=== PATIENT | male | born 1960 | race African-American/Black ===

== ENCOUNTER 2020-07-06 16:05 | Inpatient (IN) | payer MEDICARE, MEDICAID, SELFPAY ==
[2020-07-06] VITALS (16 sets, daily range): BP systolic 134–154; BP diastolic 81–106; PULSE 103–146; RESP 20–29; TEMP 36.4–37.1; O2SAT 97–100; BMI 40.3
--- NOTE | ~2020-07-06 | CT_ITS ---
EXAMINATION: CT soft tissue neck w con DATE: 07/11/2020 14:35 INDICATION: Mild expiratory stridor. TECHNIQUE: Computed tomography (CT) of the neck was performed with 75 mL Omnipaque-350 intravenous co ntrast. Automated exposure control and iterative reconstruction technique were employed. The dose-becca gth product was 618.91 mGy-cm. COMPARISON: Chest CT 07/06/2020 FINDINGS: The visualized portions of the lung apices demonstrate emphysema. There are likely changes of left ocular lens replacement surgery. The pharynx and larynx are unremarkable. There is a saber-sh eath morphology of the trachea at the level of the aortic arch. There are no pathologically enlarged lymph nodes. There is severe cervical spondylosis. IMPRESSION: 1. Saber-sheath trachea. 2. Emphysema. Reviewed, dictated and finalized at location A.
--- NOTE | ~2020-07-06 | XR_ITS ---
EXAMINATION: XR chest 1V portable INDICATION: Shortness of breath TECHNIQUE: Portable AP chest at 1821 hours COMPARISON: None available FINDINGS: There are minimal airspace opacities of the mid and lower lung zones. No pleural effusion o r pneumothorax is identified. The cardiomediastinal silhouette is normal. IMPRESSION: 1. Airspace opacities of the mid and lower lung zones, consistent with atelectasis versus pneumonia. Reviewed, dictated and finalized at location A. IMPRESSION: 1. Airspace opacities of the mid and lower lung zones, consistent with atelecta sis versus pneumonia.
--- NOTE | ~2020-07-06 | CT_ITS ---
EXAMINATION: CTA chest PE protocol DATE: 07/06/2020 19:27 INDICATION: Shortness of breath TECHNIQUE: Computed tomography angiography (CTA) of the chest was performed with 100 mL Omnipaque-350 intravenous contrast timed to evaluate the pulmonary arteries. Coronal maximum intensity projection 3D-reconstructions were created by the technologist. The dose-length product (DLP) was 965.32 mGy-cm. Automated exposure control and iterative reconstruction technique were employed. COMPARISON: None. FINDINGS: Evaluation for pulmonary embolism in the lower lobes is limited by respiratory motion. No p ulmonary embolism is identified. There is severe upper lobe predominant emphysema. There is a 1.6 x 0 .7 cm nodule of the right upper lobe on image 36. There is mild right hilar lymphadenopathy. The hear t size is normal. Calcified coronary artery atherosclerosis is noted. There is a small sliding hiatal hernia. There is moderate thoracic spondylosis. IMPRESSION: 1. No pulmonary embolism identified although sensitivity for embolism in the lower lobes is limited b y respiratory motion. 2. Severe upper lobe predominant emphysema. 3. Right upper lobe nodule which may be infectious or inflammatory however malignancy is a considerat ion. Recommend follow-up CT in three months, PET/CT, or biopsy. Reviewed, dictated and finalized at location A. IMPRESSION: 1. No pulmonary embolism identified although sensitivity for embolism in the lo wer lobes is limited by respiratory motion. 2. Severe upper lobe predominant emphysema. 3. Right upper lobe nodule which may be infectious or inflammatory however santhosh gnancy is a consideration. Recommend follow-up CT in three months, PET/CT, or b iopsy.
--- NOTE | 2020-07-06 16:16 | ED.SOB ---
HPI - SOB/Dyspnea General Chief Complaint: Shortness of Breath/Dyspnea Stated Complaint: sob Time Seen by Provider: 07/06/20 16:16 Source: patient and family Mode of arrival: wheelchair History of Present Illness HPI Narrative: Patient is a 60-year-old male with a history of COPD, chronically on 3 L oxygen who follows with [facility], who presents for evaluation of shortness of breath. Patient has been short of breath throughout the last 12 hours, initially becoming dyspneic early this morning at around 1 in the morning, for which the patient's gave him a breathing treatment. Patient then improved but became short of breath again around 11 AM this morning and had another breathing treatment which then improved his symptoms. Patient then started to have a third episode of shortness of breath associated with chest pain around 3 PM, this time a DuoNeb did not improve the patient's symptoms. Patient is denying any current chest pain in the room. He denies fever, he does report cough. He denies any leg swelling, leg pain or history of DVT. No history of PE. He reports history of COPD exacerbations for which he has had to be hospitalized in the past. He denies recent sick contacts. He denies rhinorrhea, congestion or loss of sense of taste or smell. Patient states he does not want to be hospitalized or transferred to [facility]. Patient denies loss of sense of taste or smell. No rhinorrhea or congestion. No sore throat or myalgias. Related Data Home Medications Medication Instructions Recorded Confirmed albuterol sulfate 2 puff INHALATION QID 07/06/20 07/06/20 azithromycin 500 mg PO DAILY 07/06/20 07/06/20 budesonide 0.5 mg INHALATION DAILY 07/06/20 07/06/20 calcium carbonate-vitamin D3 1 tablet PO DAILY 07/06/20 07/06/20 [Oyster Shell Calcium-Vit D3] fluticasone propionate 1 spray INTRANASAL BID 07/06/20 07/06/20 glycopyrrolate-neb.accessories 1 ml INHALATION QID 07/06/20 07/06/20 [Lonhala Magnair Refill] hydrocodone-acetaminophen [[place]] 1 tablet PO Q4-6H PRN 07/06/20 07/06/20 nifedipine 30 mg PO DAILY 07/06/20 07/06/20 omeprazole 20 mg PO DAILY 07/06/20 07/06/20 prednisone 10 mg PO DAILY 07/06/20 07/06/20 promethazine-DM 5 ml PO Q4-5H PRN 07/06/20 07/06/20 Allergies Allergy/AdvReac Type Severity Reaction Status Date / Time oxycodone Allergy Unknown Verified 07/06/20 16:45 Review of Systems Review of Systems: Narrative: CONSTITUTIONAL: Denies fever HEENT: Denies rhinorrhea or congestion CARDIOVASCULAR: Denies current chest pain RESPIRATORY: Reports cough and shortness of breath GASTROINTESTINAL: Denies abdominal pain SKIN: Denies rash MUSCULOSKELETAL: Denies back pain NEUROLOGIC: Denies headache [facility] Past Medical History Medical History (Updated 07/07/20 @ 14:13 by Justice Molina PA-C) Chronic respiratory failure 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 10 mg prednisone daily Essential hypertension GERD (gastroesophageal reflux disease) Osteoarthritis Surgical History Surgical History (Updated 07/07/20 @ 11:13 by Brittney Childers DO) Hx of cataract surgery left cataract has been resected, right cataract his to be resected in July Family History Family History (Updated 07/06/20 @ 22:40 by Renae Miranda RN) Father Acute myocardial infarction Congestive heart failure Mother Diabetes mellitus Sibling Diabetes mellitus Social History Social History (Updated 07/07/20 @ 11:18 by Brittney Childers DO) Smoking packs per day: 1 Smoking cigarettes per day: 20.0 Years smoked: 40 Smoking pack-years: 40.00 Smoking status: Former smoker Tobacco type: cigarettes Second hand tobacco smoke exposure: No Smoking end date: 12/30/18 Alcohol intake: current Drinks per week: 3 Alcohol use details: The patient will drink on-call only in moderation in on occasion. He reports that he may drink a beer if there is a football game on. Substance use: form
[2020-07-06 16:47] LABS: Basophils Absolute Auto 0.1 K/mm3 (0.0-0.1); Basophils Percent Auto 0.3 % (0.2-1.2); Eosinophils Percent Auto 0.1 % (0-4.4); Hemoglobin 13.5 g/dL (14.0-18.0); Immature Granulocyte Absolute 0.09 K/mm3 (0.00-0.031); Immature Granulocyte Percent A 0.5 % (0-0.5); Lymphocytes Absolute Auto 1.02 K/mm3 (0.9-3.2); Lymphocytes Percent Auto 5.5 % (18.3-44.2); Mean Corpuscular HGB Conc 32.1 g/dl (32-36); Mean Corpuscular Hemoglobin 30.7 pg (26-34); Mean Corpuscular Volume 95.5 fl (80-100); Mean Platelet Volume 10.9 fl (7.4-10.4); Monocytes Absolute Auto 1.5 K/mm3 (0.1-0.6); Monocytes Percent Auto 7.9 % (2.6-8.5); Neutrophils Absolute Auto 15.9 K/mm3 (1.3-6.7); Neutrophils Percent Auto 85.7 % (45.5-73.1); Platelet Count Result 340 k/mm3 (150-375); Red Cell Distribution Width 14.5 % (11.5-14.5); White Blood Count 18.6 K/mm3 (4.5-10.0)
[2020-07-06 16:50] LABS: Alveolar/Arterial O2 Gradient 85.3 mmHg; Base Excess ABG 0.4 mEq/l (+/-2.0); Carboxyhemoglobin 0.7 % THb (0-2.0); Fractional Inspired Oxygen 30 %; Methemoglobin ABG 0.1 %THb (0-1.5); Oxygen Saturation ABG 96.2 % (95.0-100.0); Oxyhemoglobin 95.6 % THb (90.0-100.0); PO2 ABG 81.6 mmHg (80.0-100.0); PO2 FiO2 Ratio Arterial Blood 2.72 %; Reduced Hemoglobin 3.6 %THb (0-5.0); Total Hemoglobin 14.1 g/dL (12.0-18.0); pH ABG 7.413 (7.350-7.450)
[2020-07-06 16:51] LABS: Device NON-INVASIVE VENT; Modified Allen's Test Pass; Site Drawn LEFT RADIAL
[2020-07-06 16:53] LABS: Non-Invasive Expiratory Pressure 7 CMH2O; Non-Invasive Inspiratory Pressure 15 CMH2O; Non-Invasive Vent Rate 16 /MIN
[2020-07-06] MEDS: MAGNESIUM SULF 2 GM/WATER 50ML 2 GM/50 ML BAG IVPB (16:53)
[2020-07-06] MEDS: methylPREDNISolone SOD SUCC 125 MG VIAL IV PUSH (16:54)
[2020-07-06] MEDS: SODIUM CHLORIDE 0.9% IV 500 ML 999 ML IV CONT (16:54)
[2020-07-06 16:56] LABS: Prothrombin Time 12.9 Seconds (11.1-14.7)
[2020-07-06 16:57] LABS: Partial Thromboplastin Time 25.3 SECONDS (22.3-36.8)
[2020-07-06 16:59] LABS: Lactic Acid Reflex 1.4 mmol/L (0.7-2.1)
[2020-07-06 17:06] LABS: D Dimer 3.98 ug/mL (<0.48)
[2020-07-06 17:12] LABS: Troponin I < 0.012 ng/mL (0.000-0.034)
[2020-07-06] MEDS: ALBUTEROL SULFATE NEB 2.5 MG/0.5 ML INH 20 MG INHALATION (17:25)
[2020-07-06] MEDS: IPRATROPIUM BR 0.02% INH SOLN 0.5 MG/2.5 ML VIAL 2 MG INHALATION (17:26)
[2020-07-06 17:54] LABS: Alanine Aminotransferase 26 U/L (4-50); Albumin Level 4.3 g/dL (3.5-5.1); Alkaline Phosphatase 101 U/L (38-126); Anion Gap 6 mmol/L (8-16); Aspartate Amino Transferase 29 U/L (17-59); Bilirubin,Total 0.7 mg/dL (0.2-1.3); Blood Urea Nitrogen 15 mg/dL (9-20); CRP 3.9 mg/dL (<1.0); Calcium 9.4 mg/dL (8.4-10.2); Carbon Dioxide 26 mmol/L (22-30); Chloride 106 mmol/L (98-107); Estimated CRCL calculation 98 ml/min; Estimated Glomerular Filt Rate > 60; Glucose 120 mg/dL (75-110); Potassium 4.3 mmol/L (3.4-5.0); Sodium 138 mmol/L (137-145)
[2020-07-06 18:01] LABS: NT Pro B Type Natriuretic Pept 155 PG/ML (5-100)
[2020-07-06] MEDS: SODIUM CHLORIDE 0.9% IV 1,000 ML 999 ML IV CONT (20:08)
[2020-07-06] MEDS: IPRATROPIUM BR 0.02% INH SOLN 0.5 MG/2.5 ML VIAL INHALATION (20:57)
[2020-07-06] MEDS: ALBUTEROL SULFATE NEB 2.5 MG/0.5 ML INH 5 MG INHALATION (20:58)
--- NOTE | 2020-07-06 23:45 | PC.NURSE ---
This patient, Bentley Mesa, was admitted to IMU Room 209-01. Patient/family oriented to hospital policies and general routines including ID bracelet, bed and alarms, visiting hours, pain management, procedures, bathroom and other care routines, personal items, smoking policy, room service/diet, and visiting hours. Valuables list has been completed. Information on how to activate the Rapid Response Team has been discussed. Patient/Family are encouraged to report perceived risks to care and to ask questions if they do not understand what they are told or what they should do.
[2020-07-07] VITALS (21 sets, daily range): BP systolic 140–152; BP diastolic 92–105; PULSE 75–109; RESP 16–24; TEMP 36.1–36.6; O2SAT 95–100
[2020-07-07 00:58] LABS: Troponin I < 0.012 ng/mL (0.000-0.034)
[2020-07-07] MEDS: IPRATROPIUM BR 0.02% INH SOLN 0.5 MG/2.5 ML VIAL INHALATION ×4 (02:04→20:08)
[2020-07-07] MEDS: ALBUTEROL SULFATE NEB 2.5 MG/0.5 ML INH 5 MG INHALATION ×4 (02:04→20:08)
--- NOTE | 2020-07-07 03:36 | PM.IMHP ---
H&P: HPI History of Present Illness Date/Time: 07/07/20 03:36 Chief complaint: Shortness of breath Narrative: Bentley Mesa is a 60 year old male with a past medical history of hypertension, COPD /emphysema, and chronic hypoxic respiratory failure who presented to the ER via private vehicle due to shortness of breath. The patient arrived to triage gasping for air with abdominal respirations. The patient was using 5 L of oxygen from home at the time and was satting 98%. The patient is usually on home oxygen of 3 L. the patient had had started having shortness of breath around 1:00 a.m. on the (Day of presentation). They had increased his home oxygen at that time and gave the patient a breathing treatment. The patient's symptoms improved around 11:00 a.m. he required another breathing treatment. When he started to have a 3rd episode of shortness of breath around 3:00 p.m. and is DuoNeb do not improve his symptoms they decided to bring the patient in. During his 3rd episode of shortness of breath he also had some chest pain . The patient had been having some cough. He had not been having any lower extremity swelling, leg pain or history of DVT . He denies any recent sick contacts. He has not been having any fevers, chills, nasal congestion, rhinorrhea, loss of sense of taste or smell. The patient follows with pulmonology at [facility]. Review of Systems Review of Systems: Narrative: 12 systems were reviewed with pertinent positives and negatives per HPI. Except as documented in the HPI, all other systems were reviewed and are negative. 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 10 mg prednisone daily Essential hypertension GERD (gastroesophageal reflux disease) Osteoarthritis Surgical History Surgical History (Updated 07/06/20 @ 16:42 by Rashmi Higginbotham MD) Hx of cataract surgery Family History Family History (Updated 07/06/20 @ 22:40 by Renae Miranda RN) Father Acute myocardial infarction Congestive heart failure Mother Diabetes mellitus Sibling Diabetes mellitus Social History Social History (Updated 07/06/20 @ 16:20 by Rashmi Higginbotham MD) Smoking status: Former smoker Tobacco type: cigarettes Second hand tobacco smoke exposure: No Smoking end date: 12/30/18 Alcohol intake: never Drinks per week: 3 Substance use: former Substance use type: marijuana Last use: 1998 Living arrangements: with family Gender identity (if verbalized by the patient): Male Meds Home Medications and Allergies Home Medications Medication Instructions Recorded Confirmed Type albuterol sulfate 2 puff INHALATION QID 07/06/20 07/06/20 History azithromycin 500 mg PO DAILY 07/06/20 07/06/20 History budesonide 0.5 mg INHALATION DAILY 07/06/20 07/06/20 History calcium carbonate-vitamin D3 1 tablet PO DAILY 07/06/20 07/06/20 History [Oyster Shell Calcium-Vit D3] fluticasone propionate 1 spray INTRANASAL BID 07/06/20 07/06/20 History glycopyrrolate-neb.accessories 1 ml INHALATION QID 07/06/20 07/06/20 History [Lonhala Magnair Refill] hydrocodone-acetaminophen [[place]] 1 tablet PO Q4-6H PRN 07/06/20 07/06/20 History nifedipine 30 mg PO DAILY 07/06/20 07/06/20 History omeprazole 20 mg PO DAILY 07/06/20 07/06/20 History prednisone 10 mg PO DAILY 07/06/20 07/06/20 History promethazine-DM 5 ml PO Q4-5H PRN 07/06/20 07/06/20 History Allergies Allergy/AdvReac Type Severity Reaction Status Date / Time oxycodone Allergy Unknown Verified 07/06/20 16:45 Vital Signs Vital Signs - 24 hr 07/06/20 16:20 07/06/20 16:28 07/06/20 17:26 Temperature 98.7 F Pulse Rate 146 H 130 H 126 H Respiratory Rate 29 H 24 H 23 H Blood Pressure 154/106 H Pulse Oximetry 100 98 07/06/20 18:00 07/06/20 18:38 07/06/20 18:41 Temperature Pulse Rate 124 H 140 H 138 H
[2020-07-07] MEDS: HYDROcodone/acetaminophen (*CRX) 5-325 MG TABLET 1 TAB PO ×5 (05:05→22:59)
[2020-07-07] MEDS: methylPREDNISolone SOD SUCC 125 MG VIAL 80 MG IV PUSH ×2 (05:10→12:26)
[2020-07-07 05:27] LABS: Hematocrit 38.3 % (42.0-52.0); Hemoglobin 12.6 g/dL (14.0-18.0); Mean Corpuscular HGB Conc 32.9 g/dl (32-36); Mean Corpuscular Hemoglobin 31.2 pg (26-34); Mean Corpuscular Volume 94.8 fl (80-100); Mean Platelet Volume 10.8 fl (7.4-10.4); Platelet Count Result 316 k/mm3 (150-375); Red Blood Count 4.04 M/mm3 (4.6-6.20); Red Cell Distribution Width 14.6 % (11.5-14.5); White Blood Count 20.2 K/mm3 (4.5-10.0)
[2020-07-07 05:46] LABS: Anion Gap 10 mmol/L (8-16); Blood Urea Nitrogen 17 mg/dL (9-20); Carbon Dioxide 24 mmol/L (22-30); Chloride 105 mmol/L (98-107); Estimated CRCL calculation 110 ml/min; Estimated Glomerular Filt Rate > 60; Glucose 156 mg/dL (75-110); Potassium 4.4 mmol/L (3.4-5.0); Sodium 139 mmol/L (137-145)
[2020-07-07] MEDS: BUDESONIDE RESPULE NEB 0.5 MG/2 ML AMP INHALATION (08:13)
[2020-07-07] MEDS: ENOXAPARIN 40 MG/0.4 ML SYRINGE SUB-Q (09:00)
[2020-07-07] MEDS: PANTOPRAZOLE 40 MG TABLET PO (09:00)
[2020-07-07] MEDS: FLUTICASONE PROPIONATE 0.05% NA SPR 16 GM BTL (*BKC) 1 SPRAY NASAL ×2 (09:00→16:28)
[2020-07-07] MEDS: NIFEdipine 30 MG TAB.ER.24 PO (09:00)
--- NOTE | 2020-07-07 10:28 | PM.IMHP ---
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 10 mg prednisone daily Essential hypertension GERD (gastroesophageal reflux disease) Osteoarthritis Surgical History Surgical History (Updated 07/06/20 @ 16:42 by Rashmi Higginbotham MD) Hx of cataract surgery Family History Family History (Updated 07/06/20 @ 22:40 by Renae Miranda RN) Father Acute myocardial infarction Congestive heart failure Mother Diabetes mellitus Sibling Diabetes mellitus Social History Social History (Updated 07/06/20 @ 16:20 by Rashmi Higginbotham MD) Smoking status: Former smoker Tobacco type: cigarettes Second hand tobacco smoke exposure: No Smoking end date: 12/30/18 Alcohol intake: never Drinks per week: 3 Substance use: former Substance use type: marijuana Last use: 1998 Living arrangements: with family Gender identity (if verbalized by the patient): Male Meds Home Medications and Allergies Home Medications Medication Instructions Recorded Confirmed Type albuterol sulfate 2 puff INHALATION QID 07/06/20 07/06/20 History azithromycin 500 mg PO DAILY 07/06/20 07/06/20 History budesonide 0.5 mg INHALATION DAILY 07/06/20 07/06/20 History calcium carbonate-vitamin D3 1 tablet PO DAILY 07/06/20 07/06/20 History [Oyster Shell Calcium-Vit D3] fluticasone propionate 1 spray INTRANASAL BID 07/06/20 07/06/20 History glycopyrrolate-neb.accessories 1 ml INHALATION QID 07/06/20 07/06/20 History [Lonhala Magnair Refill] hydrocodone-acetaminophen [[place]] 1 tablet PO Q4-6H PRN 07/06/20 07/06/20 History nifedipine 30 mg PO DAILY 07/06/20 07/06/20 History omeprazole 20 mg PO DAILY 07/06/20 07/06/20 History prednisone 10 mg PO DAILY 07/06/20 07/06/20 History promethazine-DM 5 ml PO Q4-5H PRN 07/06/20 07/06/20 History Allergies Allergy/AdvReac Type Severity Reaction Status Date / Time oxycodone Allergy Unknown Verified 07/06/20 16:45 Vital Signs Vital Signs - 24 hr 07/06/20 16:20 07/06/20 16:28 07/06/20 17:26 Temperature 98.7 F Pulse Rate 146 H 130 H 126 H Respiratory Rate 29 H 24 H 23 H Blood Pressure 154/106 H Pulse Oximetry 100 98 07/06/20 18:00 07/06/20 18:38 07/06/20 18:41 Temperature Pulse Rate 124 H 140 H 138 H Respiratory Rate 26 H 26 H 27 H Blood Pressure 144/90 H Pulse Oximetry 99 97 07/06/20 19:30 07/06/20 20:30 07/06/20 20:50 Temperature Pulse Rate 120 H 114 H 110 H Respiratory Rate 21 H 21 H 24 H Blood Pressure 147/98 H 142/91 H Pulse Oximetry 98 98 07/06/20 21:00 07/06/20 21:06 07/06/20 21:07 Temperature Pulse Rate 115 H 109 H 110 H Respiratory Rate 23 H 20 24 H Blood Pressure 153/81 H Pulse Oximetry 98 97 07/06/20 21:45 07/06/20 21:55 07/06/20 22:30 Temperature Pulse Rate 103 H 107 H 130 H Respiratory Rate 22 H 21 H Blood Pressure 137/81 Pulse Oximetry 98 98 07/06/20 23:00 07/07/20 00:00 07/07/20 02:00 Temperature 97.6 F Pulse Rate 133 H 106 H 94 Respiratory Rate 22 H 24 H Blood Pressure 134/94 H Pulse Oximetry 99 100 07/07/20 02:05 07/07/20 02:13 07/07/20 04:00 Temperature 97.5 F L Pulse Rate 93 89 109 H Respiratory Rate 22 H 22 H 24 H Blood Pressure 142/99 H Pulse Oximetry 98 96 07/07/20 06:00 07/07/20 08:00 07/07/20 08:18 Temperature 97.5 F L Pulse Rate 94 89 85 Respiratory Rate 18 21 H Blood Pressure 152/103 H Pulse Oximetry 98 98 H&P: Results Labs Labs: Short CBC 07/06/20 07/07/20 Range/Units 16:35 05:13 WBC 18.6 H 20.2 H (4.5-10.0) K/mm3 Hgb 13.5 L 12.6 L (14.0-18.0) g/dL Hct 42.0 38.3 L (42.0-52.0) % Plt Count 340 316 (150-375) k/mm3 [facility] 07/06/20 07/07/20 17:23 05:13 Sodium 138
[2020-07-07 13:21] LABS: SARS-CoV-2 RNA PCR Negative
--- NOTE | 2020-07-07 14:11 | PM.IMPN ---
Progress Note: A&P Assessment and Plan (1) Acute exacerbation of chronic obstructive airways disease: Code(s): J44.1 - Chronic obstructive pulmonary disease with (acute) exacerbation Status: Acute (2) Community acquired pneumonia: Code(s): J18.9 - Pneumonia, unspecified organism Status: Acute (3) Chronic respiratory failure: Code(s): J96.10 - Chronic respiratory failure, unspecified whether with hypoxia or hypercapnia Status: Acute Assessment and Plan: Acute on Chronic likely secondary to #1 and 2. See above a/p Wean to home O2 requirements as tolerated (4) Essential hypertension: Code(s): I10 - Essential (primary) hypertension Status: Acute Assessment and Plan: BP 150s sys with diastolic 105 this afternoon. Continue home medications Will add prn hydralazine with parameters Monitor (5) GERD (gastroesophageal reflux disease): Code(s): K21.9 - Gastro-esophageal reflux disease without esophagitis Status: Acute Assessment and Plan: no acute issues Continue pantoprazole 40 mg daily Subjective Date/time seen: 07/07/20 14:11 Interval history: Patient is a very pleasant 60 yo M with history of COPD with emphysema, chronic respiratory failure (usually 3L O2 NC at home), HTN, and GERD who is seen in follow up for acute on chronic respiratory failure likely secondary to PNA and possible COPD exacerbation. Patient states he is feeling much better this afternoon, being weaned off BiPAP on 5L O2 NC. He is able to talk in longer sentences this afternoon. He feels his SOB has improved and that he is not gasping for air as much; it should be noted that he is talking in very long winded sentences and talks most of the visit, which he is in agreement that this is a good sign for improvement. He notes having yellow sputum production; no blood noted. He has some right sided chest tightness he associates with his increased work for breathing. He notes that he is hot and sweats all the time at night. No other complaints at the moment. Denies chills, headaches, palpitations, n/v/d/c, abd pain, changes in BMs, dysuria, hematuria, cloudy urine, calf pain/swelling. Review of Systems Review of Systems: All systems reviewed & are unremarkable except as noted in HPI and below Exam Narrative: Exam Narrative: General: Patient resting supine in bed in no acute distress, speaking in very long-winded sentences HEENT: Normocephalic, EOMI, oral mucosa moist. missing teeth noted Cardiovascular: Rate and rhythm are regular. No notable murmur, rub, or gallop. Respiratory: Occasional mild exp wheezing, although diminished diffuse breath sounds. Occasional belly breaths, but appears to be because he speaks for so long. NC noted Abdomen: Soft, non-tender, obesity, non-distended, bowel sounds present. Extremities: Peripheral pulses intact. No edema. Neuro: No focal neurological deficits. Speech is clear. Objective Data Vital Signs Vital Signs: Last Vital Signs Temp 97.5 F L 07/07/20 12:00 Pulse 90 07/07/20 12:00 Resp 20 07/07/20 12:00 BP 150/105 H 07/07/20 12:00 Pulse Ox 95 07/07/20 12:00 Intake/Output Intake/Output: Intake & Output 07/04/20 07/05/20 07/06/20 07/07/20 23:59 23:59 23:59 23:59 Intake Total 1850 250 Output Total 300 875 Balance 1550 -625 Meds/Results Medications: Active Medications Generic Name Dose Route Start Last Admin Trade Name Freq PRN Reason Stop Dose Admin Hydrocodone Bitart/Acetaminophen 1 tab 07/07/20 01:18 07/07/20 14:08 Hegins 5-325 Mg PO 1 tab Q4-6H PRN Administration Pain 4-6 Albuterol 5 mg 07/06/20 20:00 07/07/20 08:13 Albuterol Sulf Neb 2.5mg/0.5ml INHALATION 5 mg Q6HRT DAVIAN Administration Budesonide 0.5 mg 07/07/20 09:00 07/07/20 08:13 Pulmicort Respule Neb
[2020-07-07] MEDS: guaiFENesin 12 HR 600 MG TABCR PO ×2 (14:51→21:15)
--- NOTE | 2020-07-07 20:42 | PC.NURSE ---
This patient, Bentley Mesa, was transferred to [ [id number]] on 07/07/20 at 2043. Personal belongings sent with patient. Belongings list checked and signed with receiving [RN ]. Report given to [RN ]. Appropriate documentation sent with patient.
--- NOTE | 2020-07-07 21:22 | PC.NURSE ---
This patient, Bentley Mesa, was received from [[id number] ] on 07/07/20 at 2022. Personal belongings list checked and signed. Patient/family oriented to unit policies and routines
[2020-07-07] MEDS: MELATONIN 3 MG TABLET PO (22:58)
[2020-07-08] VITALS (18 sets, daily range): BP systolic 110–155; BP diastolic 65–108; PULSE 80–109; RESP 14–22; TEMP 35.8–36.7; O2SAT 95–100
[2020-07-08] MEDS: ALBUTEROL SULFATE NEB 2.5 MG/0.5 ML INH 5 MG INHALATION ×4 (01:12→20:20)
[2020-07-08] MEDS: IPRATROPIUM BR 0.02% INH SOLN 0.5 MG/2.5 ML VIAL INHALATION ×4 (01:12→20:20)
[2020-07-08] MEDS: HYDROcodone/acetaminophen (*CRX) 5-325 MG TABLET 1 TAB PO ×4 (02:48→21:07)
[2020-07-08 05:40] LABS: Basophils Percent Auto 0.1 % (0.2-1.2); Hematocrit 37.2 % (42.0-52.0); Hemoglobin 12.1 g/dL (14.0-18.0); Immature Granulocyte Absolute 0.16 K/mm3 (0.00-0.031); Immature Granulocyte Percent A 0.7 % (0-0.5); Lymphocytes Absolute Auto 1.03 K/mm3 (0.9-3.2); Lymphocytes Percent Auto 4.7 % (18.3-44.2); Mean Corpuscular HGB Conc 32.5 g/dl (32-36); Mean Corpuscular Hemoglobin 31.1 pg (26-34); Mean Corpuscular Volume 95.6 fl (80-100); Mean Platelet Volume 11.2 fl (7.4-10.4); Monocytes Percent Auto 9.4 % (2.6-8.5); Neutrophils Absolute Auto 18.5 K/mm3 (1.3-6.7); Neutrophils Percent Auto 85.1 % (45.5-73.1); Platelet Count Result 307 k/mm3 (150-375); Red Blood Count 3.89 M/mm3 (4.6-6.20); Red Cell Distribution Width 14.6 % (11.5-14.5); White Blood Count 21.7 K/mm3 (4.5-10.0)
--- NOTE | 2020-07-08 08:33 | PM.IMPN ---
Progress Note: A&P Assessment and Plan (1) Acute exacerbation of chronic obstructive airways disease: Code(s): J44.1 - Chronic obstructive pulmonary disease with (acute) exacerbation Status: Acute Assessment and Plan: Patient appears to have improved, being weaned to NC, 3L, but still feels short of breath and feels he has increased work to breath. Exam reveals CTAB, with diminished breath sounds. Patient overall feels better, as well Will decrease frequency of Solumedrol to Q24hr Resume home medications if formulary Continue neb treatments QID CPT PEP therapy Continue home trilogy Continue guaifenesin Q12hr Will transfer to medical floor Monitor closely (2) Community acquired pneumonia: Code(s): J18.9 - Pneumonia, unspecified organism Status: Acute Assessment and Plan: WBC 21.7k today; CTA shows possible PNA but malignancy not excluded - imaging in 3 mo recommended. Will do sputum culture if able to produce sputum Continue IV azithromycin Continue IV rocephin If no improvement/worsening leukocytosis, consider escalating antibiotics Consider Pulmonology consultation Monitor closely (3) Chronic respiratory failure: Code(s): J96.10 - Chronic respiratory failure, unspecified whether with hypoxia or hypercapnia Status: Acute Assessment and Plan: Acute on Chronic likely secondary to #1 and 2. Now on 3L O2 at rest See above a/p Wean to home O2 requirements as tolerated (4) Essential hypertension: Code(s): I10 - Essential (primary) hypertension Status: Acute Assessment and Plan: BP 110s sys with this morning Continue home medications Will add prn hydralazine with parameters Monitor (5) GERD (gastroesophageal reflux disease): Code(s): K21.9 - Gastro-esophageal reflux disease without esophagitis Status: Acute Assessment and Plan: no acute issues Continue pantoprazole 40 mg daily Subjective Date/time seen: 07/08/20 08:33 Interval history: Patient is a very pleasant 60 yo M with history of COPD with emphysema, chronic respiratory failure (usually 3L O2 NC at home), HTN, and GERD who is seen in follow up for acute on chronic respiratory failure likely secondary to PNA and possible COPD exacerbation; malignancy on CTA chest not excludable. Patient states he is feeling tired today; he did not sleep well last night partly because he was so hot which is not uncommon for him. Notes slight throbbing chest pain for 3-5 minutes across his anterior lower ribs/sternum when he was lying flat that was associated with his breathing; improved when he sat up and controlled his breathing and denies chest pain now. He is worried about being discharged and having recurrent symptoms and having to come back. Overall, his SOB has slightly improved since yesterday, but feels still has increased work of breathing. Sputum production has declined with his cough. He has some right knee pain this morning. No other complaints at the moment. Denies chills, headaches, palpitations, n/v/d/c, abd pain, changes in BMs, dysuria, hematuria, cloudy urine, calf pain/swelling. Review of Systems Review of Systems: All systems reviewed & are unremarkable except as noted in HPI and below Exam Narrative: Exam Narrative: General: Patient resting supine in bed in no acute distress, speaking in long sentences again today, but occasionally takes breaks to catch his breath HEENT: Normocephalic, EOMI, oral mucosa moist. missing teeth noted. Tongue normal appearance Cardiovascular: Rate and rhythm are regular. No notable murmur, rub, or gallop. Respiratory: CTAB, diminished diffuse breath sounds. Occasional belly breaths, but appears to be because he speaks for so long. NC noted 3L O2 (
[2020-07-08] MEDS: ENOXAPARIN 40 MG/0.4 ML SYRINGE SUB-Q (08:50)
[2020-07-08] MEDS: guaiFENesin 12 HR 600 MG TABCR PO ×2 (08:50→21:02)
[2020-07-08] MEDS: FLUTICASONE PROPIONATE 0.05% NA SPR 16 GM BTL (*BKC) 1 SPRAY NASAL ×2 (08:50→17:12)
[2020-07-08] MEDS: methylPREDNISolone SOD SUCC 125 MG VIAL 80 MG IV PUSH (08:51)
[2020-07-08] MEDS: NIFEdipine 30 MG TAB.ER.24 PO (08:52)
[2020-07-08] MEDS: PANTOPRAZOLE 40 MG TABLET PO (08:52)
[2020-07-08] MEDS: BUDESONIDE RESPULE NEB 0.5 MG/2 ML AMP INHALATION (09:07)
[2020-07-09] VITALS (15 sets, daily range): BP systolic 133–149; BP diastolic 78–98; PULSE 80–110; RESP 16–20; TEMP 36.1–36.9; O2SAT 95–100
[2020-07-09] MEDS: ALBUTEROL SULFATE NEB 2.5 MG/0.5 ML INH 5 MG INHALATION ×4 (02:41→21:02)
[2020-07-09] MEDS: IPRATROPIUM BR 0.02% INH SOLN 0.5 MG/2.5 ML VIAL INHALATION ×4 (02:41→21:02)
[2020-07-09 05:27] LABS: Basophils Percent Auto 0.1 % (0.2-1.2); Eosinophils Percent Auto 0.1 % (0-4.4); Hematocrit 37.6 % (42.0-52.0); Hemoglobin 12.1 g/dL (14.0-18.0); Immature Granulocyte Absolute 0.13 K/mm3 (0.00-0.031); Immature Granulocyte Percent A 0.7 % (0-0.5); Lymphocytes Absolute Auto 1.33 K/mm3 (0.9-3.2); Lymphocytes Percent Auto 7.5 % (18.3-44.2); Mean Corpuscular HGB Conc 32.2 g/dl (32-36); Mean Corpuscular Hemoglobin 30.6 pg (26-34); Mean Corpuscular Volume 94.9 fl (80-100); Mean Platelet Volume 10.9 fl (7.4-10.4); Monocytes Absolute Auto 1.4 K/mm3 (0.1-0.6); Monocytes Percent Auto 7.9 % (2.6-8.5); Neutrophils Absolute Auto 14.9 K/mm3 (1.3-6.7); Neutrophils Percent Auto 83.7 % (45.5-73.1); Platelet Count Result 292 k/mm3 (150-375); Red Blood Count 3.96 M/mm3 (4.6-6.20); Red Cell Distribution Width 14.5 % (11.5-14.5); White Blood Count 17.8 K/mm3 (4.5-10.0)
[2020-07-09] MEDS: HYDROcodone/acetaminophen (*CRX) 5-325 MG TABLET 1 TAB PO ×3 (07:26→20:28)
[2020-07-09] MEDS: FLUTICASONE PROPIONATE 0.05% NA SPR 16 GM BTL (*BKC) 1 SPRAY NASAL ×2 (08:24→17:57)
[2020-07-09] MEDS: methylPREDNISolone SOD SUCC 125 MG VIAL 80 MG IV PUSH (08:24)
[2020-07-09] MEDS: guaiFENesin 600 MG/DEXTROMETHORPHAN 30 MG SR TAB 12 HR 1 TAB PO ×2 (08:24→20:25)
[2020-07-09] MEDS: ENOXAPARIN 40 MG/0.4 ML SYRINGE SUB-Q (08:24)
[2020-07-09] MEDS: PANTOPRAZOLE 40 MG TABLET PO (08:25)
[2020-07-09] MEDS: NIFEdipine 30 MG TAB.ER.24 PO (08:25)
[2020-07-09] MEDS: BUDESONIDE RESPULE NEB 0.5 MG/2 ML AMP INHALATION (08:29)
--- NOTE | 2020-07-09 11:01 | PM.IMPN ---
Progress Note: A&P Assessment and Plan (1) Acute exacerbation of chronic obstructive airways disease: Code(s): J44.1 - Chronic obstructive pulmonary disease with (acute) exacerbation Status: Acute Assessment and Plan: Patient is on chronic 3L O2 per NC. He complains of SOB and wheezing. Maintaining adequate oxygenation on his chronic 3L. Continue IV solumedrol at reduced rate q24h. continue albuterol, ipratropium, budesonide continue home trilogy continue PEP therapy monitor respiratory status closely; continue supplemental O2 as needed to maintain goal saturation 90% or above (2) Community acquired pneumonia: Code(s): J18.9 - Pneumonia, unspecified organism Status: Acute Assessment and Plan: CXR shows airspace opacities in the mid and lower lung zones. CTA shows right upper lobe nodule which may be infectious with malignancy not excluded. Patient afebrile. WBC increased up to 21.7k, declined to 17.8 today. Sputum culture is pending. Preliminary blood culture show NGTD. Urine Legionella and pneumococcal antigens are pending Continue IV azithromycin and rocephin Supportive care as needed; guaifenesin/DM and acetaminophen Repeat imaging in 3 months for lung nodule (3) Chronic respiratory failure: Code(s): J96.10 - Chronic respiratory failure, unspecified whether with hypoxia or hypercapnia Status: Acute Assessment and Plan: Acute on Chronic likely secondary to COPD and pneumonia. Currently on 3L O2 at rest continue bronchodilators, O2, and IV antibiotics as above (4) Essential hypertension: Code(s): I10 - Essential (primary) hypertension Status: Acute Assessment and Plan: Blood pressure reviewed today is well controlled in the 130s systolic Continue nifedipine Continue prn hydralazine with parameters Monitor blood pressure daily (5) GERD (gastroesophageal reflux disease): Code(s): K21.9 - Gastro-esophageal reflux disease without esophagitis Status: Acute Assessment and Plan: No acute issues. Continue pantoprazole 40 mg daily Subjective Date/time seen: 07/09/20 11:01 Interval history: Date of service: 07/09/2020 Mr. Andersen is a very pleasant 60 yo M with history of COPD with emphysema, chronic respiratory failure (chronic 3L O2 NC at home), HTN, and GERD who is seen in follow up for acute on chronic respiratory failure likely secondary to PNA and possible COPD exacerbation; malignancy on CTA chest not excludable. He reports that he is feeling improved today but continues to complain of wheezing and shortness of breath. This morning, he had a significant coughing episode which made him feel even more short of breath and increased his wheezing. Cough is nonproductive. He feels that most of his wheezing is coming from his upper airways. He is unable to lie flat. He was able to ambulate to the restroom this morning and work with PT and OT. He did not feel significant TORRES. He denies chest pain or palpitations. He complains of sore throat but denies dysphagia or odynophagia. appetite has been good. He had a bowel movement this morning. He denies urinary symptoms. No fevers, chills, dizziness, lightheadedness, nausea, vomiting, abdominal pain, weakness, or fatigue. Review of Systems Review of Systems: Narrative: Twelve systems reviewed with pertinent positives and negatives as per HPI. Exam Narrative: Exam Narrative: Mr. Mesa is a well nourished 60 year old male who is lying in bed at almost 90 degree angle. He appears comfortable and is in NARD. HR 80, BP 133/86, R 20, T 97.0?, 100% on 3L Neuro: awake, alert and oriented x4, speech clear, no focal neuro deficits noted HEENMT: normocephalic, atraumatic, EOMI, sclerae anicteric, moist oral mucosa, tongue midline, nares patent Neck: supple, no lymphadenopathy, large circumference Respiratory: diffuse wheezes in bilateral up
[2020-07-10] VITALS (16 sets, daily range): BP systolic 130–155; BP diastolic 80–98; PULSE 63–109; RESP 16–22; TEMP 36.2–36.6; O2SAT 91–98
[2020-07-10] MEDS: IPRATROPIUM BR 0.02% INH SOLN 0.5 MG/2.5 ML VIAL INHALATION ×4 (02:12→20:31)
[2020-07-10] MEDS: ALBUTEROL SULFATE NEB 2.5 MG/0.5 ML INH 5 MG INHALATION ×4 (02:12→20:31)
[2020-07-10 06:01] LABS: Hematocrit 37.5 % (42.0-52.0); Hemoglobin 12.1 g/dL (14.0-18.0); Mean Corpuscular HGB Conc 32.3 g/dl (32-36); Mean Corpuscular Hemoglobin 30.3 pg (26-34); Mean Corpuscular Volume 93.8 fl (80-100); Mean Platelet Volume 10.6 fl (7.4-10.4); Platelet Count Result 264 k/mm3 (150-375); Red Cell Distribution Width 13.9 % (11.5-14.5); White Blood Count 12.8 K/mm3 (4.5-10.0)
[2020-07-10 06:14] LABS: Anion Gap 2 mmol/L (8-16); Blood Urea Nitrogen 22 mg/dL (9-20); Calcium 9.3 mg/dL (8.4-10.2); Carbon Dioxide 34 mmol/L (22-30); Chloride 101 mmol/L (98-107); Estimated CRCL calculation 107 ml/min; Estimated Glomerular Filt Rate > 60; Glucose 85 mg/dL (75-110); Sodium 137 mmol/L (137-145)
[2020-07-10] MEDS: BUDESONIDE RESPULE NEB 0.5 MG/2 ML AMP INHALATION ×2 (08:27→20:32)
[2020-07-10] MEDS: HYDROcodone/acetaminophen (*CRX) 5-325 MG TABLET 1 TAB PO ×3 (09:59→21:04)
[2020-07-10] MEDS: FLUTICASONE PROPIONATE 0.05% NA SPR 16 GM BTL (*BKC) 1 SPRAY NASAL ×2 (09:59→16:35)
[2020-07-10] MEDS: ENOXAPARIN 40 MG/0.4 ML SYRINGE SUB-Q (10:00)
[2020-07-10] MEDS: PANTOPRAZOLE 40 MG TABLET PO (10:00)
[2020-07-10] MEDS: methylPREDNISolone SOD SUCC 125 MG VIAL 80 MG IV PUSH (10:00)
[2020-07-10] MEDS: guaiFENesin 600 MG/DEXTROMETHORPHAN 30 MG SR TAB 12 HR 1 TAB PO ×2 (10:00→21:06)
[2020-07-10] MEDS: NIFEdipine 30 MG TAB.ER.24 PO (10:00)
--- NOTE | 2020-07-10 15:08 | PM.IMPN ---
Progress Note: A&P Assessment and Plan (1) Acute exacerbation of chronic obstructive airways disease: Code(s): J44.1 - Chronic obstructive pulmonary disease with (acute) exacerbation Status: Acute Assessment and Plan: Patient is on chronic 3L O2 per NC. He complains of SOB and TORRES. Wheezing has improved. Maintaining adequate oxygenation on his chronic 3L. Decrease IV solumedrol to 40 mg q24h. Plan to transition to PO prednisone taper tomorrow if continued improvement. continue albuterol, ipratropium, budesonide continue home trilogy continue PEP therapy monitor respiratory status closely; continue supplemental O2 as needed to maintain goal saturation 90% or above He has follow up scheduled with his flavorings compounder in 2 weeks. (2) Community acquired pneumonia: Code(s): J18.9 - Pneumonia, unspecified organism Status: Acute Assessment and Plan: CXR shows airspace opacities in the mid and lower lung zones. CTA shows right upper lobe nodule which may be infectious with malignancy not excluded. Patient afebrile. WBC increased up to 21.7k, declined to 12.8k today. Preliminary blood culture show NGTD. Preliminary sputum culture with normal oropharyngeal jennifer. Urine Legionella and pneumococcal antigens are pending Continue IV azithromycin and rocephin Supportive care as needed; guaifenesin/DM, bronchodilators as above, and acetaminophen Repeat imaging in 3 months for lung nodule; follow up with flavorings compounder already scheduled. (3) Chronic respiratory failure: Code(s): J96.10 - Chronic respiratory failure, unspecified whether with hypoxia or hypercapnia Status: Acute Assessment and Plan: Acute on chronic likely secondary to COPD and pneumonia. Currently on 3L O2 at rest continue bronchodilators, O2, and IV antibiotics as above (4) Essential hypertension: Code(s): I10 - Essential (primary) hypertension Status: Acute Assessment and Plan: Blood pressure reviewed today is generally well controlled in the 130-140s systolic Continue nifedipine Continue prn hydralazine with parameters Monitor blood pressure daily (5) GERD (gastroesophageal reflux disease): Code(s): K21.9 - Gastro-esophageal reflux disease without esophagitis Status: Acute Assessment and Plan: No acute issues. Continue pantoprazole 40 mg daily Subjective Date/time seen: 07/10/20 15:08 Interval history: Date of service: 07/10/2020 Mr. Andersen is a very pleasant 60 yo M with history of COPD with emphysema, chronic respiratory failure (chronic 3L O2 NC at home), HTN, and GERD who is seen in follow up for acute on chronic respiratory failure likely secondary to PNA and possible COPD exacerbation; malignancy on CTA chest not excludable. He continues to report improvement today. He was able to ambulate down the hallway which is more activity than he has been capable of in several days. He continues to endorse SOB and TORRES, as well as productive cough. He feels his cough is becoming looser. Denies fevers, chills, nausea, or vomiting. No chest pain or palpitations. No abdominal pain. He had a BM this morning. No dysuria or hematuria. Good appetite. No additional concerns. Review of Systems Review of Systems: Narrative: 12 systems reviewed with pertinent positives and negatives as per HPI. Exam Narrative: Exam Narrative: Mr. Mesa is a well nourished 60 year old male who is sitting up at the bedside. He appears comfortable and is in NARD. HR 77, BP 142/80, RR 16, T 97.1?, 98% on 3 L Neuro: awake, alert and oriented x4, speech clear, no focal neuro deficits noted HEENMT: normocephalic, atraumatic, EOMI, sclerae anicteric, moist oral mucosa, tongue midline, nares patent Neck: supple, no lymphadenopathy, large circumference Respiratory: diminished breath sounds bilaterally, no wheezes or rhonchi, nonlabored breathing, able to speak in fu
[2020-07-11] VITALS (16 sets, daily range): BP systolic 123–136; BP diastolic 83–94; PULSE 44–112; RESP 18–25; TEMP 36.1–36.7; O2SAT 92–100
[2020-07-11] MEDS: IPRATROPIUM BR 0.02% INH SOLN 0.5 MG/2.5 ML VIAL INHALATION ×4 (01:56→20:25)
[2020-07-11] MEDS: ALBUTEROL SULFATE NEB 2.5 MG/0.5 ML INH 5 MG INHALATION ×2 (01:56→09:17)
[2020-07-11] MEDS: HYDROcodone/acetaminophen (*CRX) 5-325 MG TABLET 1 TAB PO ×4 (02:06→20:41)
[2020-07-11 06:12] LABS: Hematocrit 36.4 % (42.0-52.0); Hemoglobin 12.1 g/dL (14.0-18.0); Mean Corpuscular HGB Conc 33.2 g/dl (32-36); Mean Corpuscular Hemoglobin 31.5 pg (26-34); Mean Corpuscular Volume 94.8 fl (80-100); Platelet Count Result 284 k/mm3 (150-375); Red Blood Count 3.84 M/mm3 (4.6-6.20); White Blood Count 13.4 K/mm3 (4.5-10.0)
[2020-07-11 06:33] LABS: Anion Gap 4 mmol/L (8-16); Blood Urea Nitrogen 22 mg/dL (9-20); Calcium 9.2 mg/dL (8.4-10.2); Carbon Dioxide 35 mmol/L (22-30); Chloride 100 mmol/L (98-107); Estimated CRCL calculation 95 ml/min; Estimated Glomerular Filt Rate > 60; Glucose 95 mg/dL (75-110); Sodium 139 mmol/L (137-145)
[2020-07-11 09:16] LABS: Glucose Point of Care 124 (65-105)
[2020-07-11] MEDS: BUDESONIDE RESPULE NEB 0.5 MG/2 ML AMP INHALATION ×2 (09:17→20:24)
[2020-07-11] MEDS: FUROSEMIDE INJ 40 MG/4 ML VIAL IV PUSH (09:24)
[2020-07-11] MEDS: ENOXAPARIN 40 MG/0.4 ML SYRINGE SUB-Q (09:28)
[2020-07-11] MEDS: FLUTICASONE PROPIONATE 0.05% NA SPR 16 GM BTL (*BKC) 1 SPRAY NASAL ×2 (09:28→16:00)
[2020-07-11] MEDS: methylPREDNISolone SOD SUCC 125 MG VIAL IV PUSH (09:28)
[2020-07-11] MEDS: NIFEdipine 30 MG TAB.ER.24 PO (09:29)
[2020-07-11] MEDS: guaiFENesin 600 MG/DEXTROMETHORPHAN 30 MG SR TAB 12 HR 1 TAB PO ×2 (09:29→20:41)
[2020-07-11] MEDS: PANTOPRAZOLE 40 MG TABLET PO (09:29)
[2020-07-11 09:48] LABS: Alveolar/Arterial O2 Gradient 96.3 mmHg; Base Excess ABG 5.3 mEq/l (+/-2.0); Carboxyhemoglobin 0.3 % THb (0-2.0); Fractional Inspired Oxygen 32 %; Methemoglobin ABG 0.3 %THb (0-1.5); Oxygen Content ABG 18.1 %vol (16.0-22.0); Oxygen Saturation ABG 96.2 % (95.0-100.0); Oxyhemoglobin 94.9 % THb (90.0-100.0); PCO2 ABG 44.2 mmHg (35.0-45.0); PO2 ABG 80.1 mmHg (80.0-100.0); Reduced Hemoglobin 4.5 %THb (0-5.0); Total Hemoglobin 13.5 g/dL (12.0-18.0); pH ABG 7.449 (7.350-7.450)
[2020-07-11 09:49] LABS: Device NASAL CANNULA; Modified Allen's Test Pass; Site Drawn RIGHT RADIAL
--- NOTE | 2020-07-11 10:55 | PM.CNPUL ---
Assessment and Plan Assessment and plan (1) Acute exacerbation of chronic obstructive airways disease: Code(s): J44.1 - Chronic obstructive pulmonary disease with (acute) exacerbation Status: Acute Assessment and Plan: - wean steroids rapidly - will decrease albuterol to 2.5 mg Q6h - continue atrovent 0.5 mg Q6 - continue budesonide 0.5 mg bid - continue antibiotics for 5-7 days (2) Chronic respiratory failure: Qualifiers: Respiratory failure complication: hypoxia and hypercapnia Qualified Code(s): J96.11 - Chronic respiratory failure with hypoxia; J96.12 - Chronic respiratory failure with hypercapnia Code(s): J96.10 - Chronic respiratory failure, unspecified whether with hypoxia or hypercapnia Status: Acute Assessment and Plan: continue Trilogy NIV with current settings (3) Pulmonary nodule: Code(s): R91.1 - Solitary pulmonary nodule Status: Acute Assessment and Plan: f/u non contrast chest in three months History of Present Illness History of Present Illness Consult date: 07/11/20 Chief complaint: Shortness of breath Narrative: 60 y/o male well known to me with severe COPD on home O2 was admitted with COPD exacerbation. He had cough productive of purulent sputum and sore throat which are improving. Today he panicked and became very short of breath with moving. I saw him just after a nebulized breathing treatment and he's feeling better. He complains of upper airway breathing difficulty but I think this may just be transmitted from lower airway bronchospasm. Review of Systems Review of Systems: All systems reviewed & are unremarkable except as noted in HPI and below PMFSH Past Medical History Medical History (Updated 07/11/20 @ 11:08 by Fredis Montenegro MD) Chronic respiratory failure 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 10 mg prednisone daily Essential hypertension GERD (gastroesophageal reflux disease) Osteoarthritis Surgical History Surgical History (Updated 07/07/20 @ 11:13 by Brittney Childers DO) Hx of cataract surgery left cataract has been resected, right cataract his to be resected in July Family History Family History (Updated 07/06/20 @ 22:40 by Renae Miranda RN) Father Acute myocardial infarction Congestive heart failure Mother Diabetes mellitus Sibling Diabetes mellitus Social History Social History (Updated 07/07/20 @ 11:18 by Brittney Childers DO) Smoking packs per day: 1 Smoking cigarettes per day: 20.0 Years smoked: 40 Smoking pack-years: 40.00 Smoking status: Former smoker Tobacco type: cigarettes Second hand tobacco smoke exposure: No Smoking end date: 12/30/18 Alcohol intake: current Drinks per week: 3 Alcohol use details: The patient will drink on-call only in moderation in on occasion. He reports that he may drink a beer if there is a football game on. Substance use: former Substance use type: marijuana and crack/cocaine Other substance usage details: He smoked crack cocaine for 35 years but quit December 2018. 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 He quit working after that time due to his crack cocaine use. Gender identity (if verbalized by the patient): Male Meds Home Medications and Allergies Home Medications Medication Instructions Recorded Confirmed Type albuterol sulfate 2 puff INHALATION QID 07/06/20 07/06/20 History azithromycin 500 mg PO DAILY 07/06/20 07/06/20 History budesonide 0.5 mg INHALATION DAILY 07/06/20 07/06/20 History calcium carbonate-vitamin D3 1 tablet PO DAILY 07/06/20 07/06/20 History [Oyster Shell Calcium-Vit D3] fluticasone propionate 1 spray INTRANASAL BID 07/06/20 07/06/20 History glycopyrrolate-neb.accessories 1 ml INH
--- NOTE | 2020-07-11 13:57 | PM.IMPN ---
Progress Note: A&P Assessment and Plan (1) Acute exacerbation of chronic obstructive airways disease: Code(s): J44.1 - Chronic obstructive pulmonary disease with (acute) exacerbation Status: Acute Assessment and Plan: Patient is on chronic 3L O2 per [place]. He complains of SOB and TORRES. Wheezing has improved. Maintaining adequate oxygenation on his chronic 3L. He had an episode of severe SOB this morning that rapidly improved with nebulized breathing treatment. Administer 125 mg IV solumedrol. Continue with taper; transition to 60 mg IV solumedrol q8H tomorrow Administer 40 mg IV Lasix Continue albuterol, ipratropium, budesonide continue home trilogy continue PEP therapy monitor respiratory status closely; continue supplemental O2 as needed to maintain goal saturation 90% or above Consult has been placed to pulmonology; appreciate recommendations. He has outpatient follow up scheduled with his handicraft or hobby shop manager in 2 weeks. (2) Community acquired pneumonia: Code(s): J18.9 - Pneumonia, unspecified organism Status: Acute Assessment and Plan: CXR shows airspace opacities in the mid and lower lung zones. CTA shows right upper lobe nodule which may be infectious with malignancy not excluded. Patient afebrile. WBC increased up to 21.7k, declined to 13.4k today. Preliminary blood culture show NGTD. Preliminary sputum culture with normal oropharyngeal jennifer. Urine Legionella and pneumococcal antigens are pending Continue IV rocephin. Completed 5 days of azithromycin Supportive care as needed; guaifenesin/DM, bronchodilators as above, and acetaminophen Repeat imaging in 3 months for lung nodule; follow up with handicraft or hobby shop manager already scheduled. (3) Chronic respiratory failure: Qualifiers: Respiratory failure complication: hypoxia and hypercapnia Qualified Code(s): J96.11 - Chronic respiratory failure with hypoxia; J96.12 - Chronic respiratory failure with hypercapnia Code(s): J96.10 - Chronic respiratory failure, unspecified whether with hypoxia or hypercapnia Status: Acute Assessment and Plan: Acute on chronic likely secondary to COPD and pneumonia. Currently on 3L O2 at rest. He complains of upper airway wheezing and discomfort continue bronchodilators, trilogy, O2, and IV antibiotics as above will obtain CT neck with contrast given wheezing and upper airway symptoms (4) Essential hypertension: Code(s): I10 - Essential (primary) hypertension Status: Acute Assessment and Plan: Blood pressure reviewed today is generally well controlled in the 120s systolic Continue nifedipine Monitor blood pressure daily (5) GERD (gastroesophageal reflux disease): Code(s): K21.9 - Gastro-esophageal reflux disease without esophagitis Status: Acute Assessment and Plan: No acute issues. Continue pantoprazole 40 mg daily Subjective Date/time seen: 07/11/20 13:57 Interval history: Date of service: 07/11/2020 Patient was acutely short of breath this morning and rapid response was called. He said he began feeling SOB at approximately 6:00 am. He put his trilogy device back on but this did not offer much relief. He began to feel more and more short of breath with increased work of breathing. He responded well to albuterol breathing treatment and his shortness of breath improved. He endorses productive cough. He denied chest pain or palpitations. No nausea, vomiting, fever, chills, dizziness, lightheadedness, headache, or confusion. He felt anxious during the episode. Review of Systems Review of Systems: Narrative: 12 systems reviewed with pertinent positives and negatives as per HPI. Exam Narrative: Exam Narrative: Mr. Mesa is a well nourished 60 year old male who is sitting up in bed. HR 74, BP 124/84, RR 20, T 96.9?, 94% on 3 L Neuro: awake, alert and oriented x4, speech clear, no focal neuro deficits noted
[2020-07-11 14:06] LABS: Procalcitonin <0.10 ng/mL (<0.10)
[2020-07-11] MEDS: ALBUTEROL SULFATE NEB 2.5 MG/0.5 ML INH INHALATION ×2 (14:37→20:24)
[2020-07-12] VITALS (15 sets, daily range): BP systolic 105–143; BP diastolic 68–98; PULSE 73–106; RESP 16–22; TEMP 36.1–36.7; O2SAT 96–100
[2020-07-12] MEDS: ALBUTEROL SULFATE NEB 2.5 MG/0.5 ML INH INHALATION ×4 (01:51→20:23)
[2020-07-12] MEDS: IPRATROPIUM BR 0.02% INH SOLN 0.5 MG/2.5 ML VIAL INHALATION ×4 (01:51→20:23)
[2020-07-12] MEDS: HYDROcodone/acetaminophen (*CRX) 5-325 MG TABLET 1 TAB PO ×3 (05:08→18:28)
[2020-07-12 06:16] LABS: Hematocrit 36.7 % (42.0-52.0); Hemoglobin 12.2 g/dL (14.0-18.0); Mean Corpuscular HGB Conc 33.2 g/dl (32-36); Mean Corpuscular Hemoglobin 30.8 pg (26-34); Mean Corpuscular Volume 92.7 fl (80-100); Mean Platelet Volume 10.6 fl (7.4-10.4); Platelet Count Result 283 k/mm3 (150-375); Red Blood Count 3.96 M/mm3 (4.6-6.20); Red Cell Distribution Width 13.8 % (11.5-14.5); White Blood Count 16.2 K/mm3 (4.5-10.0)
[2020-07-12 06:26] LABS: Alanine Aminotransferase 25 U/L (4-50); Albumin Level 3.6 g/dL (3.5-5.1); Alkaline Phosphatase 59 U/L (38-126); Anion Gap 3 mmol/L (8-16); Aspartate Amino Transferase 20 U/L (17-59); Bilirubin,Total 0.3 mg/dL (0.2-1.3); Blood Urea Nitrogen 26 mg/dL (9-20); Calcium 9.5 mg/dL (8.4-10.2); Carbon Dioxide 37 mmol/L (22-30); Chloride 99 mmol/L (98-107); Estimated CRCL calculation 96 ml/min; Estimated Glomerular Filt Rate > 60; Glucose 113 mg/dL (75-110); Sodium 139 mmol/L (137-145)
[2020-07-12] MEDS: BUDESONIDE RESPULE NEB 0.5 MG/2 ML AMP INHALATION ×2 (08:31→20:23)
[2020-07-12] MEDS: FLUTICASONE PROPIONATE 0.05% NA SPR 16 GM BTL (*BKC) 1 SPRAY NASAL ×2 (09:00→16:21)
[2020-07-12] MEDS: guaiFENesin 600 MG/DEXTROMETHORPHAN 30 MG SR TAB 12 HR 1 TAB PO ×2 (09:00→21:25)
[2020-07-12] MEDS: NIFEdipine 30 MG TAB.ER.24 PO (09:01)
[2020-07-12] MEDS: ENOXAPARIN 40 MG/0.4 ML SYRINGE SUB-Q (09:01)
[2020-07-12] MEDS: PANTOPRAZOLE 40 MG TABLET PO (09:01)
[2020-07-12] MEDS: methylPREDNISolone SOD SUCC 125 MG VIAL 60 MG IV PUSH ×3 (09:02→19:45)
--- NOTE | 2020-07-12 13:55 | PM.PNPUL ---
Progress Note: A&P Assessment and Plan (1) Acute exacerbation of chronic obstructive airways disease: Code(s): J44.1 - Chronic obstructive pulmonary disease with (acute) exacerbation Status: Acute Assessment and Plan: - flu shot prior to discharge if available - tomorrow would be a better day for discharge - continue curren nebulized regimen - amrik steroids rapidly - continue night time Trilogy NIV - I've ordered outpatient rehab for him and f/u with me in 6 weeks. (2) Chronic respiratory failure: Qualifiers: Respiratory failure complication: hypoxia and hypercapnia Qualified Code(s): J96.11 - Chronic respiratory failure with hypoxia; J96.12 - Chronic respiratory failure with hypercapnia Code(s): J96.10 - Chronic respiratory failure, unspecified whether with hypoxia or hypercapnia Status: Acute Subjective Date/time seen: 07/12/20 13:55 Interval history: Feeling better today. CT neck was normal as expected. Review of Systems Review of Systems: All systems reviewed & are unremarkable except as noted in HPI and below Exam Const: General: comfortable and no acute distress Eyes: General: appearance normal, both eyes and all related structures Neck: Neck: supple and no JVD Resp: Auscultation: crackles (mild and to right base ), wheezes and diminished lung sounds Cardio: Rate: regular rate and tachycardic Rhythm: regular rhythm Heart sounds: no murmurs GI: GI Palp: Yes Soft to palpation Auscultation: normal bowel sounds Skin: General skin exam: normal color and no rashes or lesions noted Neuro: Speech: normal speech Extrem: General: normal to inspection and normal exam except as noted Psych: Mental Status: mental status grossly normal Objective Data Vital Signs Vital Signs: Vital Signs - 24 hr 07/11/20 14:00 07/11/20 14:39 07/11/20 14:45 Temperature 36.5 C Pulse Rate 112 H 105 H 98 Respiratory Rate 21 H 18 20 Blood Pressure 123/94 H Pulse Oximetry 95 07/11/20 18:00 07/11/20 20:25 07/11/20 20:42 Temperature 36.7 C Pulse Rate 104 H 94 91 Respiratory Rate 23 H 18 18 Blood Pressure 129/83 Pulse Oximetry 97 96 07/11/20 21:32 07/12/20 01:53 07/12/20 02:00 Temperature 36.2 C L 36.1 C L Pulse Rate 96 81 77 Respiratory Rate 20 18 20 Blood Pressure 130/93 H 125/92 H Pulse Oximetry 95 99 07/12/20 05:36 07/12/20 08:32 07/12/20 08:33 Temperature 36.1 C L Pulse Rate 83 80 80 Respiratory Rate 20 18 18 Blood Pressure 105/68 Pulse Oximetry 100 98 07/12/20 08:40 07/12/20 10:00 Temperature 36.4 C Pulse Rate 80 106 H Respiratory Rate 18 17 Blood Pressure 121/91 H Pulse Oximetry 96 Intake/Output Intake/Output: Intake & Output 07/09/20 07/10/20 07/11/20 07/12/20 23:59 23:59 23:59 23:59 Intake Total 1710 1200 1920 620 Output Total 0615 355 3444 500 Balance 660 925 -1030 120 Meds/Results Medications: Active Medications Generic Name Dose Route Start Last Admin Trade Name Freq PRN Reason Stop Dose Admin Acetaminophen 650 mg 07/08/20 08:35 Tylenol Tablet PO Q6H PRN Pain Rated 5 or Less Hydrocodone Bitart/Acetaminophen 1 tab 07/08/20 08:35 07/12/20 11:19 [place] 5-325 Mg PO 1 tab Q4-6H PRN Administration Pain Rated 6 or Greater Albuterol 2.5 mg 07/11/20 14:00 07/12/20 08:31 Albuterol Sulf Neb 2.5mg/0.5ml INHALATION 2.5 mg Q6HRT DAVIAN Administration Budesonide 0.5 mg 07/10/20 20:00 07/12/20 08:31 Pulmicort Respule Neb INHALATION 0.5 mg Q12HRT DAVIAN Administration Calcium Carbonate 500 mg 07/07/20 09:00 07/12/20 09:01 [place] 500 +D Tablet PO 500 mg DAILY DAVIAN Administration Enoxaparin Sodium 40 mg 07/07/20 09:00 07/12/20 09:01 Lovenox SUB-Q 40 mg DAILY DAVIAN Administration Fluticasone Propionate 1 spray 07/07/20 09:00 07/12/20 09:00 Flonase 0.05% Nasal [place] NASAL 1 spray BID DAVIAN Administration Guaifenesin/Dextromethorphan
--- NOTE | 2020-07-12 15:31 | PM.IMPN ---
Progress Note: A&P Assessment and Plan (1) Acute exacerbation of chronic obstructive airways disease: Code(s): J44.1 - Chronic obstructive pulmonary disease with (acute) exacerbation Status: Acute Assessment and Plan: Patient is on chronic 3L O2 per NC. Wheezing has improved. Maintaining adequate oxygenation on his chronic 3L. He had an episode of severe SOB on 07/11 that rapidly improved with neb treatment. Steroids were increased secondary to this episode. 125 mg IV solumedrol administered 07/11. Continue 60 mg solumedrol q8h today. Transition to 60 mg BID tomorrow. Continue albuterol, ipratropium, budesonide continue home trilogy continue PEP therapy monitor respiratory status closely; continue supplemental O2 as needed to maintain goal saturation 90% or above Consult has been placed to pulmonology; appreciate recommendations. Outpatient rehab scheduled and follow up with Dr. Montenegro in 6 weeks. (2) Community acquired pneumonia: Code(s): J18.9 - Pneumonia, unspecified organism Status: Acute Assessment and Plan: CXR shows airspace opacities in the mid and lower lung zones. CTA shows right upper lobe nodule which may be infectious with malignancy not excluded. Patient afebrile. WBC increased up to 21.7k, declined to 16.2k today. Blood cultures negative. Sputum culture with normal oropharyngeal jennifer. Urine Legionella and pneumococcal antigens are pending Continue IV rocephin. Completed 5 days of azithromycin Supportive care as needed; guaifenesin/DM, bronchodilators as above, and acetaminophen Repeat imaging in 3 months for lung nodule; follow up with lens maker already scheduled. (3) Chronic respiratory failure: Qualifiers: Respiratory failure complication: hypoxia and hypercapnia Qualified Code(s): J96.11 - Chronic respiratory failure with hypoxia; J96.12 - Chronic respiratory failure with hypercapnia Code(s): J96.10 - Chronic respiratory failure, unspecified whether with hypoxia or hypercapnia Status: Acute Assessment and Plan: Acute on chronic likely secondary to COPD and pneumonia. Currently on 3L O2 at rest. He complained of upper airway wheezing and discomfort. CT of neck 07/11 showed saber-sheath trachea with no acute findings. continue bronchodilators, trilogy, O2, and IV antibiotics as above (4) Essential hypertension: Code(s): I10 - Essential (primary) hypertension Status: Acute Assessment and Plan: Blood pressure reviewed today is remains well controlled in the 516705m systolic Continue nifedipine Monitor blood pressure daily (5) GERD (gastroesophageal reflux disease): Code(s): K21.9 - Gastro-esophageal reflux disease without esophagitis Status: Acute Assessment and Plan: No acute issues. Continue pantoprazole 40 mg daily Subjective Date/time seen: 07/12/20 15:31 Interval history: Date of service: 07/12/2020 Mr. Mesa is a very pleasant 60 yo M with history of COPD with emphysema, chronic respiratory failure (chronic 3L O2 NC at home), HTN, and GERD who is seen in follow up for acute on chronic respiratory failure secondary to PNA and COPD exacerbation. He is feeling much better today. His shortness of breath has improved significantly. He denies TORRES. He was able to work with therapy and walk around his room several times without feeling short of breath. Denies orthopnea. No chest pain or palpitations. Occasional productive cough that is improving. Wheezing has improved. He denies fever, chills, nausea, or vomiting. No abdominal pain, bloating, or cramping. He had a bowel movement this morning. Appetite has been good. He is urinating without difficulty. He slept well last night. He has no additional concerns at this time. Review of Systems Review of Systems: Narrative: Twelve systems reviewed with pertinent positives and negatives as per HPI. Exam
[2020-07-13] VITALS (15 sets, daily range): BP systolic 115–139; BP diastolic 66–89; PULSE 70–98; RESP 20–21; TEMP 36.1–36.9; O2SAT 95–100
[2020-07-13] MEDS: HYDROcodone/acetaminophen (*CRX) 5-325 MG TABLET 1 TAB PO ×5 (00:13→21:01)
[2020-07-13] MEDS: IPRATROPIUM BR 0.02% INH SOLN 0.5 MG/2.5 ML VIAL INHALATION ×4 (01:57→20:19)
[2020-07-13] MEDS: ALBUTEROL SULFATE NEB 2.5 MG/0.5 ML INH INHALATION ×4 (01:57→20:18)
[2020-07-13 06:52] LABS: Hematocrit 38.7 % (42.0-52.0); Hemoglobin 12.6 g/dL (14.0-18.0); Mean Corpuscular HGB Conc 32.6 g/dl (32-36); Mean Corpuscular Volume 95.3 fl (80-100); Platelet Count Result 297 k/mm3 (150-375); Red Blood Count 4.06 M/mm3 (4.6-6.20); Red Cell Distribution Width 13.8 % (11.5-14.5)
[2020-07-13 07:19] LABS: Anion Gap 6 mmol/L (8-16); Blood Urea Nitrogen 26 mg/dL (9-20); Calcium 9.3 mg/dL (8.4-10.2); Carbon Dioxide 36 mmol/L (22-30); Chloride 98 mmol/L (98-107); Estimated CRCL calculation 107 ml/min; Estimated Glomerular Filt Rate > 60; Glucose 111 mg/dL (75-110); Potassium 4.8 mmol/L (3.4-5.0); Sodium 140 mmol/L (137-145)
[2020-07-13] MEDS: BUDESONIDE RESPULE NEB 0.5 MG/2 ML AMP INHALATION ×2 (09:09→20:19)
[2020-07-13] MEDS: NIFEdipine 30 MG TAB.ER.24 PO (09:11)
[2020-07-13] MEDS: PANTOPRAZOLE 40 MG TABLET PO (09:11)
[2020-07-13] MEDS: guaiFENesin 600 MG/DEXTROMETHORPHAN 30 MG SR TAB 12 HR 1 TAB PO ×2 (09:11→20:56)
[2020-07-13] MEDS: ENOXAPARIN 40 MG/0.4 ML SYRINGE SUB-Q (09:12)
[2020-07-13] MEDS: FLUTICASONE PROPIONATE 0.05% NA SPR 16 GM BTL (*BKC) 1 SPRAY NASAL ×2 (09:12→17:08)
[2020-07-13] MEDS: methylPREDNISolone SOD SUCC 125 MG VIAL 60 MG IV PUSH ×2 (09:13→17:08)
[2020-07-13 15:21] LABS: Pneumococcal Antigen Urine Not Detected (Not Detected)
--- NOTE | 2020-07-13 18:02 | PM.IMPN ---
Progress Note: A&P Assessment and Plan (1) Acute exacerbation of chronic obstructive airways disease: Code(s): J44.1 - Chronic obstructive pulmonary disease with (acute) exacerbation Status: Acute Assessment and Plan: Patient is on chronic 3L O2 per NC. Wheezing has improved. Maintaining adequate oxygenation on his chronic 3L. He had an episode of severe SOB on 07/11 that rapidly improved with neb treatment. Steroids were increased secondary to this episode. 125 mg IV solumedrol administered 07/11. Continue 60 mg solumedrol BID today. plan to transition to oral prednisone no 60 mg tomorrow with taper. Continue albuterol, ipratropium, budesonide continue home trilogy continue PEP therapy monitor respiratory status closely; continue supplemental O2 as needed to maintain goal saturation 90% or above Dr. Montenegro is following and recommendations are appreciated. Outpatient pulmonary rehab scheduled and follow up with Dr. Montenegro in 6 weeks. (2) Community acquired pneumonia: Code(s): J18.9 - Pneumonia, unspecified organism Status: Acute Assessment and Plan: CXR shows airspace opacities in the mid and lower lung zones. CTA shows right upper lobe nodule which may be infectious with malignancy not excluded. Patient afebrile. Blood cultures negative. Sputum culture with normal oropharyngeal jennifer. White count was improving but begin steadily increasing in in today is elevated at 20.0, although this may be related to recently increased steroids as patient appears clinically quite improved. Urine Legionella antigen pending. Pneumococcal antigen not detected. Continue IV rocephin. Completed 5 days of azithromycin Supportive care as needed; guaifenesin/DM, bronchodilators as above, and acetaminophen Repeat imaging in 3 months for lung nodule; follow up with sap bw bi developer already scheduled. Monitor CBC (3) Chronic respiratory failure: Qualifiers: Respiratory failure complication: hypoxia and hypercapnia Qualified Code(s): J96.11 - Chronic respiratory failure with hypoxia; J96.12 - Chronic respiratory failure with hypercapnia Code(s): J96.10 - Chronic respiratory failure, unspecified whether with hypoxia or hypercapnia Status: Acute Assessment and Plan: Acute on chronic likely secondary to COPD and pneumonia. Currently on 3L O2 at rest. He complained of upper airway wheezing and discomfort. CT of neck 07/11 showed saber-sheath trachea with no acute findings. continue bronchodilators, trilogy, O2, and IV antibiotics as above (4) Essential hypertension: Code(s): I10 - Essential (primary) hypertension Status: Acute Assessment and Plan: Blood pressure reviewed today and remains well controlled in the 120-130s systolic Continue nifedipine Monitor blood pressure daily (5) GERD (gastroesophageal reflux disease): Code(s): K21.9 - Gastro-esophageal reflux disease without esophagitis Status: Acute Assessment and Plan: No acute issues. Continue pantoprazole 40 mg daily Subjective Date/time seen: 07/13/20 18:02 Interval history: Date of service: 07/12/2020 Mr. Mesa is a very pleasant 60 yo M with history of COPD with emphysema, chronic respiratory failure (chronic 3L O2 NC at home), HTN, and GERD who is seen in follow up for acute on chronic respiratory failure secondary to PNA and COPD exacerbation. He continues to feel improved. His shortness of breath has diminished. He was able to ambulate today and denied TORRES. Continues to endorse productive cough. No further wheezing. No chest pain orthopnea. Is sleeping well. Appetite is good. No abdominal pain, nausea, vomiting. Regular bowel movements. No dysuria or hematuria. No additional concerns at this time. He has discussed with Dr. Montenegro regarding pulmonary rehab and looks forward to this as he feels he will make significant improvements. He is q
[2020-07-13 21:05] LABS: Legionella pneumophila Ag Ur Not Detected (Not Detected)
[2020-07-14] VITALS (8 sets, daily range): BP systolic 115–144; BP diastolic 78–95; PULSE 65–107; RESP 16–21; TEMP 36.3–36.4; O2SAT 96–100
[2020-07-14] MEDS: ALBUTEROL SULFATE NEB 2.5 MG/0.5 ML INH INHALATION ×2 (01:50→08:02)
[2020-07-14] MEDS: IPRATROPIUM BR 0.02% INH SOLN 0.5 MG/2.5 ML VIAL INHALATION ×2 (01:50→08:02)
[2020-07-14] MEDS: HYDROcodone/acetaminophen (*CRX) 5-325 MG TABLET 1 TAB PO ×3 (04:43→14:05)
[2020-07-14 05:46] LABS: Basophils Percent Auto 0.2 % (0.2-1.2); Hemoglobin 12.2 g/dL (14.0-18.0); Immature Granulocyte Absolute 0.44 K/mm3 (0.00-0.031); Immature Granulocyte Percent A 2.4 % (0-0.5); Lymphocytes Absolute Auto 1.24 K/mm3 (0.9-3.2); Lymphocytes Percent Auto 6.6 % (18.3-44.2); Mean Corpuscular HGB Conc 32.1 g/dl (32-36); Mean Corpuscular Hemoglobin 30.5 pg (26-34); Mean Platelet Volume 10.8 fl (7.4-10.4); Monocytes Absolute Auto 1.5 K/mm3 (0.1-0.6); Monocytes Percent Auto 8.1 % (2.6-8.5); Neutrophils Absolute Auto 15.5 K/mm3 (1.3-6.7); Neutrophils Percent Auto 82.7 % (45.5-73.1); Platelet Count Result 264 k/mm3 (150-375); Red Cell Distribution Width 13.8 % (11.5-14.5); White Blood Count 18.7 K/mm3 (4.5-10.0)
[2020-07-14 06:09] LABS: Anion Gap 5 mmol/L (8-16); Blood Urea Nitrogen 23 mg/dL (9-20); Calcium 9.3 mg/dL (8.4-10.2); Carbon Dioxide 36 mmol/L (22-30); Chloride 99 mmol/L (98-107); Estimated CRCL calculation 108 ml/min; Estimated Glomerular Filt Rate > 60; Glucose 110 mg/dL (75-110); Potassium 4.6 mmol/L (3.4-5.0); Sodium 140 mmol/L (137-145)
[2020-07-14] MEDS: BUDESONIDE RESPULE NEB 0.5 MG/2 ML AMP INHALATION (08:02)
[2020-07-14] MEDS: PANTOPRAZOLE 40 MG TABLET PO (09:02)
[2020-07-14] MEDS: ENOXAPARIN 40 MG/0.4 ML SYRINGE SUB-Q (09:02)
[2020-07-14] MEDS: FLUTICASONE PROPIONATE 0.05% NA SPR 16 GM BTL (*BKC) 1 SPRAY NASAL (09:02)
[2020-07-14] MEDS: NIFEdipine 30 MG TAB.ER.24 PO (09:02)
--- NOTE | 2020-07-14 10:08 | PC.NURSE ---
second call to pharmacy requesting 0800 dose of prednisone
[2020-07-14] MEDS: guaiFENesin 600 MG/DEXTROMETHORPHAN 30 MG SR TAB 12 HR 1 TAB PO (11:47)
[2020-07-14] MEDS: predniSONE 20 MG TABLET 60 MG PO (11:47)
--- NOTE | 2020-07-14 13:10 | PM.DS ---
DS: Admitting Diagnosis Admitting Diagnosis Admitting Diagnosis: Shortness of breath DS: Discharge Diagnosis Discharge Diagnosis (1) Acute exacerbation of chronic obstructive airways disease: Code(s): J44.1 - Chronic obstructive pulmonary disease with (acute) exacerbation Status: Acute Assessment and Plan: Long history of COPD established with pulmonology at [facility]. On chronic 3L O2. Initially on BiPAP and weaned to typical 3L. Started on IV solu-medrol with gradual taper. On 07/11/20, he had an episode of significant shortness of breath for which he received high dose IV solu-medrol with rapid taper initiated again. Received nebulized breathing treatments and continued on his home trilogy. He was seen in consultation by mds coordinator Dr. Montenegro, whom the patient was known to. He will continue with a PO prednisone taper and complete outpatient pulmonary rehab and follow-up with Dr. Montenegro in 6 weeks. (2) Community acquired pneumonia: Code(s): J18.9 - Pneumonia, unspecified organism Status: Acute Assessment and Plan: CXR shoed airspace opacities in the mid and lower lung zones. CTA showed right upper lobe nodule which may be infectious with malignancy not excluded. He remained afebrile with negative blood cultures and sputum culture with normal oropharyngeal jennifer. Urine legionella and pneumococcal antigens negative. Completed 5 days of IV Azithromycin and 7 days of IV Rocephin. Continue supportive care. May continue Mucnex as needed for cough. Follow up with Dr. Montenegro for surveillance of lung nodule with repeat CT in 3 months. (3) Chronic respiratory failure: Qualifiers: Respiratory failure complication: hypoxia and hypercapnia Qualified Code(s): J96.11 - Chronic respiratory failure with hypoxia; J96.12 - Chronic respiratory failure with hypercapnia Code(s): J96.10 - Chronic respiratory failure, unspecified whether with hypoxia or hypercapnia Status: Acute Assessment and Plan: Acute on chronic likely secondary to COPD and pneumonia. He remained on his usual 3L O2 at rest. He did complain of upper airway wheezing for which CT neck was performed on 07/11 showing saber-sheath trachea with no acute findings. Wheezing resolved. Continue bronchodilators, trilogy, and home O2. Outpatient pulmonology follow up as noted above. (4) Essential hypertension: Code(s): I10 - Essential (primary) hypertension Status: Acute Assessment and Plan: Blood pressures monitored daily and remained well-controlled in the 120-130s systolic. Continue nifedipine. (5) GERD (gastroesophageal reflux disease): Code(s): K21.9 - Gastro-esophageal reflux disease without esophagitis Status: Acute Assessment and Plan: Remained asymptomatic with no acute issues. Continue pantoprazole 40 mg daily. (6) Leukocytosis: Code(s): D72.829 - Elevated white blood cell count, unspecified Status: Inactive Assessment and Plan: Initially felt to be related to acute infectious process. Leukocytosis began to improve but then increased shortly after receiving high dose IV steroids. Gradual improvement with steroid taper. Repeat CBC in 1 week to ensure resolution. DS: Summary Hospital Course Reason for hospitalization: Date of admission: 07/06/2020 Date of discharge: 07/14/2020 Bentley Mesa is a 60 year old male with a history of chronic respiratory failure secondary to COPD, HTN, and GERD who presented to the emergency department on 07/06/2020 with complaints of shortness of breath and TORRES. He is on chronic 3L O2 per NC. He is established with pulmonology at [facility]. He was noted to be in respiratory distress upon arrival and was placed on BiPAP and given dexamethasone and magnesium with symptomatic improvement. At presentation, he was tachycardic up to 140 and tachypneic, afebrile, and additional VSS, WBC 20.2, Hgb 12.6, Hct 38.3,
== END 2020-07-14 14:50 | disposition home or self-care (01) | DRG 190 ==
LOC: ANHED 19:30 → ANHICU 20:22 → ANHIMU 22:00 → ANH2MED 07-07 20:54
PROVIDERS: Internal Medicine; Physician Assistant; Admitting Provider Family Medicine; Emergency Provider Emergency Medicine; Visit Provider Family Medicine
DX: J43.9 Emphysema, unspecified (principal); J18.9 Pneumonia, unspecified organism; J96.11 Chronic respiratory failure with hypoxia; J96.12 Chronic respiratory failure with hypercapnia; Z20.828 Contact with and (suspected) exposure to other viral communicable diseases; D72.829 Elevated white blood cell count, unspecified; I10 Essential (primary) hypertension; K21.9 Gastro-esophageal reflux disease without esophagitis; M19.90 Unspecified osteoarthritis, unspecified site; Z23 Encounter for immunization; Z79.52 Long term (current) use of systemic steroids; Z87.891 Personal history of nicotine dependence
CPT/HCPCS: 36415; 36600; 70491; 71045; 71275; 80048; 80053; 82375; 82805; 82948; 83050; 83605; 83880; 84145; 84484; 85025; 85027; 85380; 85610; 85730; 86140; 87040; 87070; 87205; 87449; 87635; 87899; 90471; 90653; 94002; 94003; 94640; 94667; 94668; 96361; 96365; 96366; 96367; 96372; 96375; 96376; 97110; 97116; 97161; 97165; 97535; 99285; A9270; C9803; G0008; G0378; J0456; J0696; J1650; J1940; J2930; J3475; J7030; J7040; J7512; Q9967; U0003

== ENCOUNTER 2020-09-23 07:18 | Outpatient (CLI) | payer MEDICARE, MEDICAID, SELFPAY ==
--- NOTE | ~2020-09-23 | CT_ITS ---
EXAMINATION: CT chest wo con DATE: 09/23/2020 07:58 INDICATION: Lung nodule. COPD. TECHNIQUE: Computed tomography (CT) of the chest was performed without intravenous contrast. Automate d exposure control and iterative reconstruction technique were employed. Exam dose: 718.51 mGy-cm to hilario exam DLP. COMPARISON: 07/06/2020 CT pulmonary scan FINDINGS: Stable or slightly smaller soft tissue opacity of the right upper lobe (series 4 image 35) compared to 07/06/2020. Another six-month CT follow-up is to document continued stability. 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 New discoid scarring or atelectasis in the posterolateral right lower lobe. Chronic mild posterior left basilar lower lobe discoid scarring. No interval pulmonary mass lesion or pulmonary consolidation is noted. Normal heart size. No thoracic aortic aneurysm. No hilar or mediastinal mass lesion or lymphadenopath y. Small sliding hiatal hernia. Normal morphology of the adrenal glands. Diffuse idiopathic skeletal hyperostosis of the mid to lower thoracic spine. No suspicious osteolytic or osteoblastic lesions. IMPRESSION: Stable right upper lobe pulmonary opacity; recommend another six-month CT follow-up Bullous emphysema Reviewed, dictated and finalized at [facility]. Reviewed, dictated and finalized at [facility]. CRUSHING MACHINE OPERATOR IMPRESSION: Stable right upper lobe pulmonary opacity; recommend another six-m [facility] CT follow-up Bullous emphysema
[2020-09-23 08:11] LABS: Alanine Aminotransferase 25 U/L (4-50); Albumin Level 4.3 g/dL (3.5-5.1); Alkaline Phosphatase 84 U/L (38-126); Anion Gap 10 mmol/L (8-16); Aspartate Amino Transferase 30 U/L (17-59); Bilirubin,Total 0.5 mg/dL (0.2-1.3); Blood Urea Nitrogen 16 mg/dL (9-20); Calcium 9.4 mg/dL (8.4-10.2); Carbon Dioxide 25 mmol/L (22-30); Chloride 103 mmol/L (98-107); Cholesterol 206 mg/dL (0-200); Estimated Glomerular Filt Rate > 60; Glucose 131 mg/dL (75-110); HDL Direct 58 mg/dL; Potassium 4.3 mmol/L (3.4-5.0); Sodium 138 mmol/L (137-145); Triglycerides 86 mg/dL (<150)
[2020-09-23 08:23] LABS: LDL Cholesterol Direct 118 mg/dL
== END 2020-09-23 07:19 | disposition home or self-care (01) ==
PROVIDERS: PCP Emergency Medicine; Visit Provider Internal Medicine Critical Care Medicine
DX: E78.5 Hyperlipidemia, unspecified (principal); R91.1 Solitary pulmonary nodule; J43.8 Other emphysema
CPT/HCPCS: 36415; 71250; 80053; 80061

== ENCOUNTER 2020-10-27 09:24 | Outpatient (CLI) | payer MEDICARE, MEDICAID, SELFPAY ==
[2020-10-27 10:11] LABS: Hemoglobin A1C 5.4 % (<5.7)
--- NOTE | 2020-10-28 18:00 | WPDSIXMINUTE ---
Six Minute Walk This is a 6 minutes walk for pre pulmonary rehabilitation on patient's home setting of 3 L NC oxygen. The staff pulled the oxygen cart that was delivering 3 L pulsed oxygen. Findings: The patient's resting room air oxygen saturation measured by pulse oximetry was 90% and her heart rate was 99 bpm. Patient ambulated for 91 meters and oxygen saturation ranged from 84 to 92%. Heart rate at the end of the study was 128 bpm. There are no prior studies for comparison.
== END 2020-10-27 09:25 | disposition home or self-care (01) ==
LOC: ANHPFT 09:28
PROVIDERS: PCP Emergency Medicine; Visit Provider Internal Medicine Critical Care Medicine
DX: R73.09 Other abnormal glucose (principal); J44.9 Chronic obstructive pulmonary disease, unspecified
CPT/HCPCS: 36415; 83036; 94618

== ENCOUNTER 2020-11-20 14:01 | Observation (INO) | payer MEDICARE, MEDICAID, SELFPAY ==
[2020-11-20] VITALS (14 sets, daily range): BP systolic 138–162; BP diastolic 91–100; PULSE 96–113; RESP 16–23; TEMP 36.1–36.3; O2SAT 94–100; BMI 39.6
--- NOTE | ~2020-11-20 | CT_ITS ---
EXAMINATION: CTA chest PE protocol DATE: 11/20/2020 16:09 WOOD CHOPPER INDICATION: Shortness of breath. Possible mass. TECHNIQUE: Computed tomographic angiography (CTA) of the chest was performed with 100 mL Omnipaque-35 0 intravenous contrast. The dose-length product was 1919.92 mGy-cm. Maximum intensity projection 3D-r econstructions of the aorta and other arteries were constructed by the technologist on a separate wor kstation. Automated exposure control and iterative reconstruction technique were employed. COMPARISON: CT dated 09/23/2020 and 07/06/2020. FINDINGS: Study is technically limited by timing of contrast bolus. There are filling defects in righ t lower lobe segmental and subsegmental pulmonary arteries, suspicious for pulmonary embolism. No lar ge central pulmonary emboli. No thoracic lymphadenopathy. Severe emphysema. No significant pleural or pericardial effusion. Heart size upper normal. Small hiatal hernia. There are nodules in the right u pper lobe, largest measuring 7 cm. These nodules are less confluent than on prior examination. The pu lmonary arteries are enlarged, consistent with pulmonary arterial hypertension. There is right lower lobe atelectasis/scarring. No endobronchial lesions. IMPRESSION: 1. Filling defects right lower lobe segmental/subsegmental pulmonary arteries which may be due to pul monary embolism or inadequate contrast enhancement. 2: Decreased confluence of right upper lobe nodule measuring up to 1.7 cm dating back to 07/06/2020, m ost likely infectious/inflammatory although neoplasm is not entirely excluded. Continued follow-up CT in 6 months recommended. 3: Enlarged pulmonary arteries consistent with pulmonary hypertension. 4: Emphysema. Reviewed, dictated and finalized at [facility]. CHOPPER IMPRESSION: 1. Filling defects right lower lobe segmental/subsegmental pulmonary arteries w hich may be due to pulmonary embolism or inadequate contrast enhancement. 2: Decreased confluence of right upper lobe nodule measuring up to 1.7 cm datin g back to 07/06/2020, most likely infectious/inflammatory although neoplasm is n ot entirely excluded. Continued follow-up CT in 6 months recommended. 3: Enlarged pulmonary arteries consistent with pulmonary hypertension. 4: Emphysema.
--- NOTE | ~2020-11-20 | CT_ITS ---
EXAMINATION: CTA chest PE protocol DATE: 11/21/2020 12:49 INDICATION: Shortness of breath. TECHNIQUE: Computed tomography angiography (CTA) of the chest was performed with 100 mL Omnipaque-350 intravenous contrast timed to evaluate the pulmonary arteries. Coronal maximum intensity projection 3D-reconstructions were created by the technologist. Automated exposure control and iterative reconst ruction technique were employed. The dose-length product was 885.25 mGy-cm. COMPARISON: Chest CT 11/20/2020, 09/23/2020, 07/06/2020 FINDINGS: There is severe emphysema. There is mild atelectasis in the lower lobes and upper lobes. Th ere is a 17 x 7 mm nodule in posterior segment right upper lobe. No pleural effusion. There is a smal l sliding hiatal hernia. The heart size is normal. There are coronary artery calcifications. There is no pulmonary embolus. There are bridging endplate osteophytes at multiple levels in the spine, consi stent with diffuse idiopathic skeletal hyperostosis (DISH). IMPRESSION: 1. No pulmonary embolus. 2. Severe emphysema. 3. 17 x 7 mm nodule in posterior segment right upper lobe, stable from 07/06/2020, probably benign. Co nsider noncontrast chest CT in 6-12 months. Reviewed, dictated and finalized at location [facility]. FITTER HELPER IMPRESSION: 1. No pulmonary embolus. 2. Severe emphysema. 3. 17 x 7 mm nodule in posterior segment right upper lobe, stable from 0, probably benign. Consider noncontrast chest CT in 6-12 months.
--- NOTE | ~2020-11-20 | US_ITS ---
EXAMINATION: US venous doppler [facility] DATE: 11/21/2020 12:35 INDICATION: Right lower limb pain. TECHNIQUE: Grayscale ultrasound images without and with compression and Doppler ultrasound images of the bilateral lower extremity veins were obtained. COMPARISON: None. FINDINGS: The visualized portions of right common femoral vein, profunda (deep) femoral vein, popliteal vein, p eroneal veins, posterior tibial veins, and greater saphenous vein outflow are patent. There is a line ar echogenic filling defect in the right femoral vein. The visualized portions of left common femoral vein, profunda femoral vein, femoral vein, popliteal v ein, peroneal veins, posterior tibial veins, and greater saphenous vein outflow are patent. IMPRESSION: 1. Linear echogenic filling defect in the right femoral vein, likely chronic thrombus. Reviewed, dictated and finalized at location [facility]. TAPE MACHINE OPERATOR IMPRESSION: 1. Linear echogenic filling defect in the right femoral vein, likely chronic t hrombus.
--- NOTE | ~2020-11-20 | XR_ITS ---
XR chest 2V 11/20/2020 14:25 Indication: Shortness of breath and emphysema. Procedure: PA and lateral views of the chest Comparison: 07/06/2020 Findings: There is masslike density in the right upper lung overlying the right hilum. Correlation wi CT recommended to exclude parenchymal mass. No pleural effusion or pneumothorax. The lungs are hyp erinflated which is consistent with, but not diagnostic of chronic obstructive pulmonary disease. No focal pneumonia. Impression: 1: Masslike density right upper thorax overlying the hilum. Correlation with contrast-enhanced CT neena st recommended. Reviewed, dictated and finalized at location A. OND SAWER Impression: 1: Masslike density right upper thorax overlying the hilum. Correlation with co ntrast-enhanced CT chest recommended.
--- NOTE | 2020-11-20 14:11 | ECG_ITS ---
Measurements Intervals [place] Rate: 96 P: 50 NV: 140 QRS: -14 QRSD: 81 T: 60 QT: 350 QTc: 443 Interpretive Statements SINUS RHYTHM VENTRICULAR PREMATURE COMPLEXES EARLY PRECORDIAL R/S TRANSITION BASELINE WANDER- I, II, AVR, AVL, AVF BORDERLINE ECG Electronically Signed On 11-20-2020 14:20:06 BRASS BOBBIN WINDER by Jeremy Ibarra D.O.
[2020-11-20 14:19] LABS: Basophils Absolute Auto 0.1 K/mm3 (0.0-0.1); Basophils Percent Auto 1.3 % (0.2-1.2); Eosinophils Absolute Auto 0.3 K/mm3 (0-0.3); Eosinophils Percent Auto 3.7 % (0-4.4); Hematocrit 41.2 % (42.0-52.0); Hemoglobin 13.2 g/dL (14.0-18.0); Immature Granulocyte Absolute 0.02 K/mm3 (0.00-0.031); Immature Granulocyte Percent A 0.3 % (0-0.5); Lymphocytes Absolute Auto 1.57 K/mm3 (0.9-3.2); Lymphocytes Percent Auto 22.2 % (18.3-44.2); Mean Corpuscular Hemoglobin 29.9 pg (26-34); Mean Corpuscular Volume 93.4 fl (80-100); Mean Platelet Volume 10.4 fl (7.4-10.4); Monocytes Percent Auto 14.3 % (2.6-8.5); Neutrophils Absolute Auto 4.1 K/mm3 (1.3-6.7); Neutrophils Percent Auto 58.2 % (45.5-73.1); Platelet Count Result 251 k/mm3 (150-375); Red Blood Count 4.41 M/mm3 (4.6-6.20); Red Cell Distribution Width 14.7 % (11.5-14.5); White Blood Count 7.1 K/mm3 (4.5-10.0)
[2020-11-20 14:32] LABS: Anion Gap 8 mmol/L (8-16); Blood Urea Nitrogen 18 mg/dL (9-20); Calcium 8.9 mg/dL (8.4-10.2); Carbon Dioxide 24 mmol/L (22-30); Chloride 107 mmol/L (98-107); Estimated CRCL calculation 88 ml/min; Estimated Glomerular Filt Rate > 60; Glucose 80 mg/dL (75-110); Potassium 4.8 mmol/L (3.4-5.0); Sodium 139 mmol/L (137-145)
--- NOTE | 2020-11-20 14:34 | ED.SOB ---
HPI - SOB/Dyspnea General Chief Complaint: Shortness of Breath/Dyspnea Stated Complaint: short of breath Time Seen by Provider: 11/20/20 14:14 Source: patient Mode of arrival: ambulatory Limitations: no limitations History of Present Illness HPI Narrative: Patient is a 60 year old male with history of COPD, chronic O2 on 3 LNC who presents for evaluation of shortness of breath. Patient states he was walking around the house prior to arrival and he started feeling short of breath. He states he told him that his oxygen tubing was tangled so he started using his portable oxygen. He states he immediately started feeling normal but since he was already on his way to hospital he wanted to get checked out. He denies chest pain, fever , cough, nausea, vomiting, diarrhea, or URI symptoms. He denies leg swelling or history of DVT/PE. He last used his albuterol nebulizer at 8 am this morning. He did not try his nebulizer before coming to ER. Related Data Home Medications Medication Instructions Recorded Confirmed albuterol sulfate 2 puff INHALATION QID 07/06/20 11/20/20 calcium carbonate-vitamin D3 1 tablet PO DAILY 07/06/20 11/20/20 [[place] Calcium-Vit D3] hydrocodone-acetaminophen [[place]] 1 tablet PO Q4-6H PRN 07/06/20 11/20/20 omeprazole 20 mg PO DAILY 07/06/20 11/20/20 promethazine-DM 5 ml PO Q4-5H PRN 07/06/20 11/20/20 ipratropium bromide 0.02 % 2.5 ml INHALATION Q6H PRN 08/11/20 11/20/20 solution for inhalation melatonin 5 mg PO HS 11/20/20 11/20/20 Allergies Allergy/AdvReac Type Severity Reaction Status Date / Time oxycodone Allergy Unknown Verified 11/20/20 19:04 Review of Systems Review of Systems: All systems reviewed & are unremarkable except as noted in HPI and below PMFSH Past Medical History Medical History (Updated 11/20/20 @ 23:01 by Lilibeth Ramsey MD) Chronic respiratory failure with hypoxia, on home oxygen therapy 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 10 mg prednisone daily Essential hypertension Gastroesophageal reflux disease Osteoarthritis Pneumonia (~2019) Surgical History Surgical History (Updated 11/20/20 @ 21:23 by Deana Bernal PA-C) History of bilateral cataract extraction Family History Family History Father Acute myocardial infarction Congestive heart failure Lung cancer Mother Diabetes mellitus Dementia Sibling Diabetes mellitus Lung cancer Social History Social History (Updated 11/20/20 @ 21:24 by Deana Bernal PA-C) Smoking packs per day: 1 Smoking cigarettes per day: 20.0 Years smoked: 47 Smoking pack-years: 47.00 Smoking status: Former smoker Tobacco type: cigarettes Second hand tobacco smoke exposure: Yes Smoking end date: 12/01/18 Alcohol intake: current Drinks per week: 4 Substance use: never Substance use type: does not use Other substance usage details: He smoked crack cocaine for 35 years but quit December 2018. Additional living arrangements comments: Patient lives with his in [place]. 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 Gender identity (if verbalized by the patient): Male Spiritual care concerns: No Exam Const: General: no acute distress and alert Orientation/consciousness: patient oriented x3 Eyes: EOM: EOMs intact bilaterally Resp: Effort & Inspection: normal respiratory effort, not labored, no retractions and not tachypneic Auscultation: wheezes expiratory wheezes Other: able to speak in complete sentences Cardio: Rate: regular rate Rhythm: regular rhythm Heart sounds: no murmurs Skin: General skin exam: normal color Rashes: no rashes Neuro: General: patient oriented x3, moves all extremities and CN's II-XI intact bilaterally Extrem: General: n
[2020-11-20] MEDS: IPRATROPIUM BR 0.02% INH SOLN 0.5 MG/2.5 ML VIAL INHALATION ×2 (15:02→20:46)
[2020-11-20] MEDS: ALBUTEROL SULFATE NEB 2.5 MG/0.5 ML INH 5 MG INHALATION ×3 (15:02→20:46)
--- NOTE | 2020-11-20 15:15 | PC.NURSE ---
Lab called for blue top add on
[2020-11-20 15:24] LABS: Alveolar/Arterial O2 Gradient 110.1 mmHg; Base Excess ABG -0.2 mEq/l (+/-2.0); Carboxyhemoglobin 0.4 % THb (0-2.0); Fractional Inspired Oxygen 32 %; HCO3 ABG 24.5 mEq/l (22.0-26.0); Methemoglobin ABG 0.3 %THb (0-1.5); Oxygen Content ABG 17.5 %vol (16.0-22.0); Oxygen Saturation ABG 94.4 % (95.0-100.0); Oxyhemoglobin 93.6 % THb (90.0-100.0); PCO2 ABG 40.2 mmHg (35.0-45.0); PO2 FiO2 Ratio Arterial Blood 2.22 %; Reduced Hemoglobin 5.7 %THb (0-5.0); Total Hemoglobin 13.3 g/dL (12.0-18.0); pH ABG 7.402 (7.350-7.450)
[2020-11-20 15:25] LABS: Device NASAL CANNULA; Site Drawn LEFT BRACHIAL
--- NOTE | 2020-11-20 16:53 | ECG_ITS ---
Measurements Intervals [place] Rate: 102 P: 11 [place]: 120 QRS: 2 QRSD: 78 T: 53 QT: 325 QTc: 423 Interpretive Statements SINUS TACHYCARDIA EARLY PRECORDIAL R/S TRANSITION BASELINE ARTIFACT- I, III, AVR, AVL, AVF, V4-V6 BORDERLINE ECG Electronically Signed On 11-20-2020 19:21:51 BLEACH MACHINE OPERATOR by Jeremy Ibarra D.O.
[2020-11-20 16:55] LABS: INR 0.9; Partial Thromboplastin Time 27.1 SECONDS (22.3-36.8); Prothrombin Time 13.2 Seconds (11.1-14.7)
[2020-11-20 16:58] LABS: D Dimer 0.28 ug/mL (<0.48)
[2020-11-20] MEDS: predniSONE 20 MG TABLET 60 MG PO (17:05)
[2020-11-20] MEDS: ENOXAPARIN 120 MG/0.8 ML SYRINGE SUB-Q (17:05)
[2020-11-20 17:25] LABS: NT Pro B Type Natriuretic Pept 68 PG/ML (5-100); Troponin I < 0.012 ng/mL (0.000-0.034)
--- NOTE | 2020-11-20 17:30 | PM.IMHP ---
H&P: HPI History of Present Illness Date/Time: 11/20/20 17:30 Chief Complaint: Shortness of breath. Narrative: This is a 60-year-old male with chronic respiratory failure on home oxygen, COPD, and hypertension who presented to the emergency department earlier today from home for evaluation of shortness of breath. While walking down the stairs not long prior to arrival he began feeling quite short of breath and very anxious due to the same. Apparently his oxygen tubing got tangled up so he switched over to his portable oxygen and he started feeling better when they were on the way to the hospital. He decided to come in and get checked out, however because he was having feelings of anxiety that typically do not occur with shortness of breath. With regards was respiratory status, he was stable in the emergency department however has had several bouts of tachycardia which a majority of the time look like sinus tachycardia however at times it almost looks like he is in atrial fibrillation with rapid ventricular response and he is being admitted for closer monitoring. He does not have any feelings of racing heart but does tell me that on occasion his heart rate will jump and he attributes that to his prednisone use. It is also noted that a chest x-ray done in the ED showed a masslike density in the right upper thorax and a subsequent chest CTA showed filling defects in the right lower lobe segmental/subsegmental pulmonary arteries which may be due to pulmonary embolism or inadequate contrast enhancement. The nodule noted on chest x-ray seem to be a bit smaller in size when compared to imaging dated 07/06/2020, most likely infectious or inflammatory however neoplasm was not excluded. At the time my evaluation he has no specific complaints, and specifically denies fever, chills, sweats, cold and flu symptoms, chest pain, pleuritic pain, palpitations, and lower extremity edema. No history of venous thromboembolism or cardiac dysrhythmia. Review of Systems Review of Systems: Narrative: Twelve systems were reviewed with pertinent positives and negatives as per HPI. He recently started pulmonary rehab and had his 1st 2 sessions last week. He is also meeting with a Dr. Pineda affiliated with [facility] in [place] regarding possible [place] treatment for his COPD. Except as documented, all other systems were reviewed and are negative. [facility] Past Medical History Medical History (Updated 11/20/20 @ 21:27 by Deana G. Gerling, PA-C) Chronic respiratory failure with hypoxia, on home oxygen therapy 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 10 mg prednisone daily Essential hypertension Gastroesophageal reflux disease Osteoarthritis Pneumonia (~2020) Surgical History Surgical History (Updated 11/20/20 @ 21:23 by Deana Bernal PA-C) History of bilateral cataract extraction Family History Family History Father Acute myocardial infarction Congestive heart failure Lung cancer Mother Diabetes mellitus Dementia Sibling Diabetes mellitus Lung cancer Social History Social History (Updated 11/20/20 @ 21:24 by Deana Bernal PA-C) Smoking packs per day: 1 Smoking cigarettes per day: 20.0 Years smoked: 47 Smoking pack-years: 47.00 Smoking status: Former smoker Tobacco type: cigarettes Second hand tobacco smoke exposure: Yes Smoking end date: 12/01/18 Alcohol intake: current Drinks per week: 4 Substance use: never Substance use type: does not use Other substance usage details: He smoked crack cocaine for 35 years but quit December 2018. Additional living arrangements comments: Patient lives with his in [place]. 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 Gender identity (if verbalized by the patient): Male Spiritua
[2020-11-20] MEDS: LORazepam (*CRX) 0.5 MG TABLET PO (17:47)
--- NOTE | 2020-11-20 18:56 | ADMGEN ---
This patient, Bentley Mesa, was admitted to Medical Room 245-. Patient/family oriented to hospital policies and general routines including ID bracelet, bed and alarms, visiting hours, pain management, procedures, bathroom and other care routines, personal items, smoking policy, room service/diet, and visiting hours. Information on how to activate the Rapid Response Team has been discussed. Patient/Family are encouraged to report perceived risks to care and to ask questions if they do not understand what they are told or what they should do.
[2020-11-20] MEDS: MELATONIN 5 MG TABLET PO (22:13)
[2020-11-20] MEDS: HYDROcodone/acetaminophen (*CRX) 5-325 MG TABLET 1 TAB PO (22:13)
[2020-11-20] MEDS: guaiFENesin 600 MG/DEXTROMETHORPHAN 30 MG SR TAB 12 HR 1 TAB PO (22:13)
[2020-11-20] MEDS: FLUTICASONE PROPIONATE 0.05% NA SPR 16 GM BTL (*BKC) 1 SPRAY NASAL (22:14)
[2020-11-21] VITALS (13 sets, daily range): BP systolic 122–143; BP diastolic 67–85; PULSE 83–119; RESP 16–22; TEMP 36.1–36.8; O2SAT 95–99
[2020-11-21] MEDS: ALBUTEROL SULFATE NEB 2.5 MG/0.5 ML INH 5 MG INHALATION ×3 (02:37→14:40)
[2020-11-21] MEDS: IPRATROPIUM BR 0.02% INH SOLN 0.5 MG/2.5 ML VIAL INHALATION ×3 (02:37→14:41)
[2020-11-21] MEDS: HYDROcodone/acetaminophen (*CRX) 5-325 MG TABLET 1 TAB PO ×2 (03:27→11:24)
[2020-11-21] MEDS: ALPRAZolam (*CRX) 0.5 MG TABLET PO ×2 (04:13→15:17)
[2020-11-21 05:25] LABS: Basophils Percent Auto 0.2 % (0.2-1.2); Hematocrit 38.1 % (42.0-52.0); Hemoglobin 12.1 g/dL (14.0-18.0); Immature Granulocyte Absolute 0.02 K/mm3 (0.00-0.031); Immature Granulocyte Percent A 0.3 % (0-0.5); Lymphocytes Absolute Auto 0.66 K/mm3 (0.9-3.2); Mean Corpuscular HGB Conc 31.8 g/dl (32-36); Mean Corpuscular Hemoglobin 29.4 pg (26-34); Mean Corpuscular Volume 92.5 fl (80-100); Mean Platelet Volume 10.7 fl (7.4-10.4); Monocytes Absolute Auto 0.5 K/mm3 (0.1-0.6); Monocytes Percent Auto 7.4 % (2.6-8.5); Neutrophils Absolute Auto 5.4 K/mm3 (1.3-6.7); Neutrophils Percent Auto 82.1 % (45.5-73.1); Platelet Count Result 264 k/mm3 (150-375); Red Blood Count 4.12 M/mm3 (4.6-6.20); Red Cell Distribution Width 14.6 % (11.5-14.5); White Blood Count 6.6 K/mm3 (4.5-10.0)
[2020-11-21 05:36] LABS: Alanine Aminotransferase 50 U/L (4-50); Alkaline Phosphatase 77 U/L (38-126); Anion Gap 6 mmol/L (8-16); Aspartate Amino Transferase 51 U/L (17-59); Bilirubin,Total 0.4 mg/dL (0.2-1.3); Blood Urea Nitrogen 18 mg/dL (9-20); Calcium 8.8 mg/dL (8.4-10.2); Carbon Dioxide 28 mmol/L (22-30); Chloride 105 mmol/L (98-107); Estimated CRCL calculation 99 ml/min; Estimated Glomerular Filt Rate > 60; Glucose 151 mg/dL (75-110); Sodium 139 mmol/L (137-145)
[2020-11-21] MEDS: ENOXAPARIN 120 MG/0.8 ML SYRINGE SUB-Q (05:50)
[2020-11-21] MEDS: PANTOPRAZOLE SOD SESQUIHYDRATE 20 MG TAB PO (09:03)
[2020-11-21] MEDS: polyethylene glycoL 3350 17 GM POWD.PACK PO (09:03)
[2020-11-21] MEDS: predniSONE 10 MG TABLET PO (09:03)
[2020-11-21] MEDS: guaiFENesin 600 MG/DEXTROMETHORPHAN 30 MG SR TAB 12 HR 1 TAB PO (09:03)
[2020-11-21] MEDS: BUDESONIDE RESPULE NEB 0.5 MG/2 ML AMP INHALATION (10:11)
--- NOTE | 2020-11-21 12:17 | PC.NURSE ---
To Radiology per stretcher
--- NOTE | 2020-11-21 14:20 | PM.DS ---
DS: Admitting Diagnosis Admitting Diagnosis Admitting Diagnosis: Possible PE DS: Discharge Diagnosis Discharge Diagnosis (1) Tachycardia: Code(s): R00.0 - Tachycardia, unspecified Status: Acute (2) Abnormal computed tomography of lung: Code(s): R91.8 - Other nonspecific abnormal finding of lung field Status: Acute (3) Chronic respiratory failure with hypoxia, on home oxygen therapy: Code(s): J96.11 - Chronic respiratory failure with hypoxia; Z99.81 - Dependence on supplemental oxygen Status: Inactive (4) COPD with emphysema: Code(s): J43.9 - Emphysema, unspecified Status: Acute (5) Essential hypertension: Code(s): I10 - Essential (primary) hypertension Status: Acute (6) Chronic deep vein thrombosis (DVT): Code(s): I82.509 - Chronic embolism and thrombosis of unspecified deep veins of unspecified lower extremity Status: Acute DS: Summary Hospital Course Hospital Course: Patient is a 60-year-old male with a past medical history of severe COPD on home oxygen who presented emergency room for SOB. He apparently started feeling shortness of breath at home and wanted to go to the emergency room and when he switched to his portable oxygen, his noticed his home oxygen tubing was tangled. He said he immediately felt better on his portable oxygen but decided to come to the ER anyway as he has been having some anxiety and this made it worse. Vitals in the ER were normal with exception of heart rate at 103. His CBC showed chronic anemia and BMP was normal. Troponin and BNP was normal. Apparently in the ER he had some bursts of tachycardia which were not recorded but were thought to be possibly SVT/multifocal atrial tach/ AFib. He underwent a CTA of the chest which showed filling defects which could either be PE or an adequate contrast enhancement. It also showed a right upper lobe nodule but is chronic. Because of his tachyarrhythmia, the patient was admitted to the hospitalist service and monitored on telemetry. He had no further tachycardia episodes while hospitalized. Because of his inadequate CT, we reordered a CTA which showed no pulmonary emboli. His D-dimer was negative. He also underwent a lower extremity ultrasound which showed a chronic likely a chronic thrombus. The patient does not recall ever being diagnosed with a DVT but when he was hospitalized last June with an elevated D-dimer but no ultrasound was done. After speaking with his PCP, he wants him on eliquis and will follow up with an u/s in 4 months. He says it is okay for the pt to start back at cardiopulmonary rehab. He also needs a repeat CT of his chest in 6 months to follow the nodule. The patient had anxiety while hospitalized and states he has been having some lately. He wanted a non addictive medications since he has had a problem with drugs in the past. He is going to start BuSpar and follow-up with his primary care physician. As for his tachyarrhythmia, this did not occur again after the ER and I think it is likely due to multifocal atrial tachycardia from his severe lung disease and PCP agrees and will monitor. His BNP was normal and he recently had an echo at the end of 2019. Overall, the patient felt back to baseline and ready for discharge. He was educated about the worrisome signs and symptoms to come back to emergency room for was discharged stable condition. Status at Discharge Functional status at discharge: independent ambulation Overall status at discharge: patient is back to baseline Time Spent with Patient Time attestation: Total time spent providing and/or coordinating discharge services:45 min Time spent: Greater than 30 minutes Exam Narrative: Exam Narrative: General: Well developed well nourished patient in NAD HEENT: normocephalic Neck: supple Neuro: Alert and oriented x4 CV:RRR. tele shows no further arrhythmias but did show occasional PVCs. Resp: Decreased
== END 2020-11-21 16:12 | disposition home or self-care (01) ==
LOC: ANHED 17:36 → ANH2MED 17:57
PROVIDERS: Emergency Medicine; Admitting Provider Internal Medicine; Emergency Provider General Practice; PCP Emergency Medicine; Visit Provider Physician Assistant
DX: R00.0 Tachycardia, unspecified (principal); R91.8 Other nonspecific abnormal finding of lung field; J96.11 Chronic respiratory failure with hypoxia; J44.9 Chronic obstructive pulmonary disease, unspecified; I82.511 Chronic embolism and thrombosis of right femoral vein; Z99.81 Dependence on supplemental oxygen; I10 Essential (primary) hypertension; K21.9 Gastro-esophageal reflux disease without esophagitis; Z87.891 Personal history of nicotine dependence; Z79.52 Long term (current) use of systemic steroids
CPT/HCPCS: 36415; 36600; 71046; 71275; 80048; 80053; 82375; 82805; 83050; 83880; 84484; 85025; 85380; 85610; 85730; 93005; 93970; 94640; 96372; 99285; A9270; G0378; J1650; J7512; Q9967

== ENCOUNTER 2020-12-15 11:34 | Emergency (ER) | payer MEDICARE, MEDICAID, SELFPAY ==
--- NOTE | ~2020-12-15 | CT_ITS ---
EXAMINATION: CT abdomen pelvis w con EXAM DATE: 12/15/2020 12:43 INDICATION: Diverticulitis. TECHNIQUE: Spiral CT of the abdomen and pelvis was performed following intravenous injection of 100 m L Omnipaque 350. Axial, coronal and sagittal images were reviewed. The dose-length product (DLP) fo r this examination was 1296.33 mGy-cm. The exposure was tailored according to patient size (auto mA exposure control), and iterative reconstruction (ASIR) was used as additional dose reduction techniqu e. There is no prior study for comparison. FINDINGS: The liver, spleen, adrenal glands and pancreas are unremarkable. Gallbladder is unremarkab le. No biliary obstruction. Portal and splenic veins are patent. Kidneys enhance symmetrically. T here is no hydronephrosis. There are small bilateral inguinal fat-containing hernias. The prostate i s unremarkable. The bladder is unremarkable. There is no retroperitoneal or pelvic lymphadenopathy. There is mild scattered arteriosclerotic disease. There are no findings to suggest appendicitis. There is small sliding gastroesophageal hiatal hernia . There is expected amount of colonic stool. No free intraperitoneal gas. The heart is normal in size. There are no pericardial or pleural effusions. Right basilar linear atelectasis. There are no osteoblastic or osteolytic lesions identified. IMPRESSION: 1. No acute intra-abdominal findings. 2. Small hernias. Reviewed, dictated and finalized at location A. ON FURNACE OPERATOR
[2020-12-15 11:43] VITALS: BP 147/107; PULSE 120; RESP 19; TEMP 36.1; O2SAT 96
[2020-12-15 12:01] LABS: Basophils Absolute Auto 0.1 K/mm3 (0.0-0.1); Basophils Percent Auto 1.4 % (0.2-1.2); Eosinophils Absolute Auto 0.3 K/mm3 (0-0.3); Eosinophils Percent Auto 4.9 % (0-4.4); Hematocrit 42.8 % (42.0-52.0); Hemoglobin 13.7 g/dL (14.0-18.0); Immature Granulocyte Absolute 0.01 K/mm3 (0.00-0.031); Immature Granulocyte Percent A 0.2 % (0-0.5); Lymphocytes Absolute Auto 1.28 K/mm3 (0.9-3.2); Lymphocytes Percent Auto 25.1 % (18.3-44.2); Mean Corpuscular Hemoglobin 29.4 pg (26-34); Mean Corpuscular Volume 91.8 fl (80-100); Mean Platelet Volume 10.5 fl (7.4-10.4); Monocytes Absolute Auto 0.7 K/mm3 (0.1-0.6); Monocytes Percent Auto 13.6 % (2.6-8.5); Neutrophils Absolute Auto 2.8 K/mm3 (1.3-6.7); Neutrophils Percent Auto 54.8 % (45.5-73.1); Platelet Count Result 282 k/mm3 (150-375); Red Blood Count 4.66 M/mm3 (4.6-6.20); Red Cell Distribution Width 15.1 % (11.5-14.5); White Blood Count 5.1 K/mm3 (4.5-10.0)
[2020-12-15 12:16] LABS: Alanine Aminotransferase 40 U/L (4-50); Albumin Level 4.4 g/dL (3.5-5.1); Alkaline Phosphatase 100 U/L (38-126); Anion Gap 8 mmol/L (8-16); Aspartate Amino Transferase 47 U/L (17-59); Bilirubin,Total 0.3 mg/dL (0.2-1.3); Blood Urea Nitrogen 13 mg/dL (9-20); Calcium 9.8 mg/dL (8.4-10.2); Carbon Dioxide 28 mmol/L (22-30); Chloride 109 mmol/L (98-107); Estimated CRCL calculation 88 ml/min; Estimated Glomerular Filt Rate > 60; Glucose 87 mg/dL (75-110); Lipase 42 U/L (23-300); Potassium 3.9 mmol/L (3.4-5.0); Sodium 145 mmol/L (137-145)
[2020-12-15 12:33] VITALS: BP 164/110; PULSE 122; RESP 14; O2SAT 93
--- NOTE | 2020-12-15 12:33 | PC.NURSE ---
Pt to CT scan via stretcher.
[2020-12-15 12:52] LABS: Add Urine Microscopic? YES; Appearance Urine Clear (Clear); Bilirubin Urine Negative (Negative); Blood Urine Negative (Negative); Color Urine Yellow (Yellow); Glucose Urine UA Negative (Negative); Ketones Urine 1+ mg/dL (Negative); Leukocyte Esterase Ur Negative LEU/UL (Negative); Mucus Urine Heavy /lpf; Nitrate Urine Negative (Negative); Protein Urine 2+ mg/dL (Negative); RBC Urine 0-2 /hpf (0-2); Squamous Epithelial Cell Urine Rare /hpf (Few); Urobilinogen Urine Negative mg/dL (<2.0)
[2020-12-15 12:58] LABS: Specific Grav Ur 1.034 (1.001-1.035)
[2020-12-15] MEDS: SODIUM CHLORIDE 0.9% IV 500 ML 999 ML IV CONT (13:30)
[2020-12-15 13:42] VITALS: BP 129/81; PULSE 119; RESP 16; O2SAT 98
--- NOTE | 2020-12-15 13:47 | ED.GENADULT ---
HPI - General Adult General Chief complaint: Abdominal Pain Stated complaint: left abd pain Time Seen by Provider: 12/15/20 11:43 Source: patient and family Mode of arrival: ambulatory Limitations: no limitations History of Present Illness HPI narrative: Patient is a 60-year-old male who presents to emergency department for evaluation of left lower quadrant abdominal pain for the last several days denies any change in bowel habits rectal bleeding melena urinary symptoms or similar occurrence in the past radicular symptoms or paresthesias patient has been taking his home medications with some improvement the pain comes and goes and is described as a cramping when it occurs. Patient wears chronic oxygen denies any URI symptoms and on arrival is in no distress does not appear uncomfortable. Patient notes that he is always tachycardic and is not having any respiratory or cardiac issues or complaints at this time. Related Data Home Medications Medication Instructions Recorded Confirmed calcium carbonate-vitamin D3 1 tablet PO DAILY 07/06/20 11/20/20 [Oyster Shell Calcium-Vit D3] hydrocodone-acetaminophen [[place]] 1 tablet PO Q4-6H PRN 07/06/20 11/20/20 omeprazole 20 mg PO DAILY 07/06/20 11/20/20 promethazine-DM 5 ml PO Q4-5H PRN 07/06/20 11/20/20 ipratropium bromide 0.02 % 2.5 ml INHALATION Q6H PRN 08/11/20 11/20/20 solution for inhalation melatonin 5 mg PO HS 11/20/20 11/20/20 buspirone 5 mg PO DAILY 11/25/20 11/25/20 Allergies Allergy/AdvReac Type Severity Reaction Status Date / Time oxycodone Allergy Unknown Verified 12/15/20 11:52 Review of Systems Review of Systems: All systems reviewed & are unremarkable except as noted in HPI and below PMFSH Past Medical History Medical History Chronic respiratory failure with hypoxia, on home oxygen therapy 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 10 mg prednisone daily Essential hypertension Gastroesophageal reflux disease Osteoarthritis Pneumonia (~2019) Surgical History Surgical History History of bilateral cataract extraction Family History Family History Father Acute myocardial infarction Congestive heart failure Lung cancer Mother Diabetes mellitus Dementia Sibling Diabetes mellitus Lung cancer Social History Social History Smoking packs per day: 1 Smoking cigarettes per day: 20.0 Years smoked: 47 Smoking pack-years: 47.00 Smoking status: Former smoker Tobacco type: cigarettes Second hand tobacco smoke exposure: Yes Smoking end date: 12/01/18 Alcohol intake: current Drinks per week: 4 Substance use: never Substance use type: does not use Other substance usage details: He smoked crack cocaine for 35 years but quit December 2018. Additional living arrangements comments: Patient lives with his in [place]. 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 Gender identity (if verbalized by the patient): Male Spiritual care concerns: No Exam Narrative: Exam Narrative: GENERAL: Well-appearing, well-nourished, and in no acute distress. HEAD: Normocephalic, atraumatic. EYES: PERRLA and EOMI. ENT: Nares clear, no rhinorrhea or epistaxis. Mucous membranes moist. CHEST: Clear to auscultation. No respiratory distress. No wheezes rales or rhonchi HEART: Tachycardic rate and regular rhythm. No murmur heard. Normal peripheral pulses. ABDOMEN: Soft, left lower quadrant point tenderness no abnormalities noted on exam otherwise, nondistended, normal active bowel sounds. EXTREMITIES: Normal range of motion. No edema. SKIN: Warm, dry, no rash. NEURO: No focal deficits.
[2020-12-15] MEDS: IPRATROPIUM BR 0.02% INH SOLN 0.5 MG/2.5 ML VIAL 1 MG INHALATION (13:49)
[2020-12-15 13:50] VITALS: RESP 16
[2020-12-15 13:56] VITALS: RESP 16
[2020-12-15 14:26] VITALS: BP 162/104; PULSE 110; RESP 16; O2SAT 98
== END 2020-12-15 14:28 | disposition home or self-care (01) ==
PROVIDERS: Emergency Provider Emergency Medicine; PCP Emergency Medicine
DX: R10.32 Left lower quadrant pain (principal); J44.9 Chronic obstructive pulmonary disease, unspecified; J96.11 Chronic respiratory failure with hypoxia; Z99.81 Dependence on supplemental oxygen; I10 Essential (primary) hypertension; K21.9 Gastro-esophageal reflux disease without esophagitis; M19.90 Unspecified osteoarthritis, unspecified site; Z87.891 Personal history of nicotine dependence; K40.20 Bilateral inguinal hernia, without obstruction or gangrene, not specified as recurrent; K44.9 Diaphragmatic hernia without obstruction or gangrene
CPT/HCPCS: 36415; 74177; 80053; 81001; 83690; 85025; 94640; 96360; 99284; J7040; Q9967

== ENCOUNTER 2020-12-31 14:01 | Emergency (ER) | payer MEDICARE, MEDICAID, SELFPAY ==
--- NOTE | ~2020-12-31 | XR_ITS ---
XR barium swallow DATE: 12/31/2020 16:32 INDICATION: Throwing up after eating. Reflux. TECHNIQUE: Fluoroscopy, spot and overhead radiographs of the esophagus, including rapid numerous sequ ence spot images. Exam dose: 67.06 mGy-cm total exam DLP. 1 minute fluoroscopy time 200 cc barium oral contrast medium COMPARISON: None FINDINGS: There is normal deglutition. No cricopharyngeus muscle dysfunction or Zenker's diverticulum . No esophageal stricture, intraluminal mass lesion, diverticulum or ulceration is evident. There is a small sliding hiatal hernia with Schatzki's ring. IMPRESSION: Small sliding hiatal hernia with Schatzki's ring. This likely accounts for the patient's symptoms. Trim Setter consult for possible endoscopic esophageal dilatation at the Schatzki's ring is re commended. Reviewed, dictated and finalized at Location A. Reviewed, dictated and finalized at location A. IMPRESSION: Small sliding hiatal hernia with Schatzki's ring. This likely accou nts for the patient's symptoms. Trim Setter consult for possible endoscopic esophageal dilatation at the Schatzki's ring is recommended.
--- NOTE | ~2020-12-31 | XR_ITS ---
XR chest 1V portable DATE: 12/31/2020 14:32 INDICATION: Cough. Vomiting. COPD. TECHNIQUE: Portable upright AP chest on 12/31/2020 at 1424 hours COMPARISON: 11/20/2021 view chest 11/21/2020 CT pulmonary scan FINDINGS: Heart size appears normal. No left pleural effusion. Minimal right pleural effusion is sugg ested. No pulmonary infiltrate or consolidation or pneumothorax is detected. IMPRESSION: Possible minimal right pleural effusion. No active pulmonary disease is evident Reviewed, dictated and finalized at location A. IMPRESSION: Possible minimal right pleural effusion. No active pulmonary diseas e is evident
[2020-12-31 13:55] VITALS: BP 145/97; PULSE 112; RESP 20; TEMP 36.8; O2SAT 98
[2020-12-31] MEDS: SODIUM CHLORIDE 0.9% IV 500 ML 999 ML IV CONT (14:52)
[2020-12-31] MEDS: ONDANSETRON INJ 4 MG/2 ML VIAL IV PUSH (14:52)
[2020-12-31] MEDS: FAMOTIDINE 20 MG/2 ML VIAL IV PUSH (14:52)
--- NOTE | 2020-12-31 15:21 | ED.GENADULT ---
HPI - General Adult General Chief complaint: Skin/Abscess/Foreign Body Stated complaint: FOOD BOLUS Source: patient, family and old records reviewed Mode of arrival: ambulatory Limitations: no limitations History of Present Illness HPI narrative: Patient 60-year-old male who presents with episodic gagging and emesis notes that when he eats sometimes he feels that as though the bolus does not go down followed by emesis has had these intermittently over the last 2 weeks as noted has not been seen for this complaint presents per EMS after having to [place] hamburgers and having some emesis. Patient denies similar occurrence in the past patient has not taken anything for symptoms. Patient has chronic reflux. Patient denies URI symptoms and on arrival is in no distress Related Data Home Medications Medication Instructions Recorded Confirmed calcium carbonate-vitamin D3 1 tablet PO DAILY 07/06/20 11/20/20 [Oyster Shell Calcium-Vit D3] hydrocodone-acetaminophen [[place]] 1 tablet PO Q4-6H PRN 07/06/20 11/20/20 omeprazole 20 mg PO DAILY 07/06/20 11/20/20 promethazine-DM 5 ml PO Q4-5H PRN 07/06/20 11/20/20 ipratropium bromide 0.02 % 2.5 ml INHALATION Q6H PRN 08/11/20 11/20/20 solution for inhalation melatonin 5 mg PO HS 11/20/20 11/20/20 buspirone 5 mg PO DAILY 11/25/20 11/25/20 Allergies Allergy/AdvReac Type Severity Reaction Status Date / Time oxycodone Allergy Unknown Verified 12/15/20 11:52 Review of Systems Review of Systems: All systems reviewed & are unremarkable except as noted in HPI and below PMFSH Past Medical History Medical History Chronic respiratory failure with hypoxia, on home oxygen therapy 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 10 mg prednisone daily Essential hypertension Gastroesophageal reflux disease Osteoarthritis Pneumonia (~2019) Surgical History Surgical History History of bilateral cataract extraction Family History Family History Father Acute myocardial infarction Congestive heart failure Lung cancer Mother Diabetes mellitus Dementia Sibling Diabetes mellitus Lung cancer Social History Social History Smoking packs per day: 1 Smoking cigarettes per day: 20.0 Years smoked: 47 Smoking pack-years: 47.00 Smoking status: Former smoker Tobacco type: cigarettes Second hand tobacco smoke exposure: Yes Smoking end date: 12/01/18 Alcohol intake: current Drinks per week: 4 Substance use: never Substance use type: does not use Other substance usage details: He smoked crack cocaine for 35 years but quit December 2018. Additional living arrangements comments: Patient lives with his in [place]. 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 Gender identity (if verbalized by the patient): Male Spiritual care concerns: No Exam Narrative: Exam Narrative: GENERAL: Well-appearing, well-nourished, and in no acute distress. HEAD: Normocephalic, atraumatic. EYES: PERRLA and EOMI. ENT: Nares clear, no rhinorrhea or epistaxis. Mucous membranes moist. Oropharynx without tonsillar hypertrophy exudate or other lesions. NECK: Supple. No adenopathy or masses. No stridor CHEST: Clear to auscultation. No respiratory distress. No wheezes rales or rhonchi HEART: Regular rate and rhythm. No murmur heard. Normal peripheral pulses. ABDOMEN: Soft, nontender, nondistended EXTREMITIES: Normal range of motion. No edema. SKIN: Warm, dry, no rash. NEURO: No focal deficits. Alert and oriented x3. PSYCH: Normal mood and affect. Course Course Emergency Course: Patient in the room at this time in no d
[2020-12-31 17:01] LABS: Basophils Absolute Auto 0.1 K/mm3 (0.0-0.1); Basophils Percent Auto 1.3 % (0.2-1.2); Eosinophils Absolute Auto 0.2 K/mm3 (0-0.3); Eosinophils Percent Auto 3.5 % (0-4.4); Hematocrit 42.7 % (42.0-52.0); Hemoglobin 13.4 g/dL (14.0-18.0); Immature Granulocyte Absolute 0.01 K/mm3 (0.00-0.031); Immature Granulocyte Percent A 0.2 % (0-0.5); Lymphocytes Absolute Auto 1.09 K/mm3 (0.9-3.2); Lymphocytes Percent Auto 19.9 % (18.3-44.2); Mean Corpuscular HGB Conc 31.4 g/dl (32-36); Mean Corpuscular Hemoglobin 28.9 pg (26-34); Mean Corpuscular Volume 92.2 fl (80-100); Mean Platelet Volume 10.6 fl (7.4-10.4); Monocytes Absolute Auto 0.6 K/mm3 (0.1-0.6); Monocytes Percent Auto 11.3 % (2.6-8.5); Neutrophils Absolute Auto 3.5 K/mm3 (1.3-6.7); Neutrophils Percent Auto 63.8 % (45.5-73.1); Platelet Count Result 246 k/mm3 (150-375); Red Blood Count 4.63 M/mm3 (4.6-6.20); Red Cell Distribution Width 15.1 % (11.5-14.5); White Blood Count 5.5 K/mm3 (4.5-10.0)
[2020-12-31 17:13] LABS: Alanine Aminotransferase 32 U/L (4-50); Albumin Level 4.3 g/dL (3.5-5.1); Alkaline Phosphatase 90 U/L (38-126); Anion Gap 8 mmol/L (8-16); Aspartate Amino Transferase 40 U/L (17-59); Bilirubin,Total 0.3 mg/dL (0.2-1.3); Blood Urea Nitrogen 18 mg/dL (9-20); Calcium 9.3 mg/dL (8.4-10.2); Carbon Dioxide 32 mmol/L (22-30); Chloride 104 mmol/L (98-107); Estimated CRCL calculation 97 ml/min; Estimated Glomerular Filt Rate > 60; Glucose 86 mg/dL (75-110); Lipase 44 U/L (23-300); Potassium 4.3 mmol/L (3.4-5.0); Sodium 144 mmol/L (137-145)
[2020-12-31 17:18] LABS: Add Urine Microscopic? YES; Appearance Urine Clear (Clear); Bilirubin Urine Negative (Negative); Blood Urine Negative (Negative); Color Urine Yellow (Yellow); Glucose Urine UA Negative (Negative); Ketones Urine Negative (Negative); Leukocyte Esterase Ur Negative LEU/UL (Negative); Mucus Urine Heavy /lpf; Nitrate Urine Negative (Negative); Protein Urine 1+ mg/dL (Negative); RBC Urine 0-2 /hpf (0-2); Urobilinogen Urine Negative mg/dL (<2.0); WBC Urine 0-3 /hpf
[2020-12-31 17:19] LABS: Specific Grav Ur 1.033 (1.001-1.035)
[2020-12-31] MEDS: LORazepam INJ (*CRX) 2 MG/ML VIAL 1 MG IV PUSH (17:30)
[2020-12-31 18:39] VITALS: BP 132/78; PULSE 82; RESP 20; O2SAT 99
== END 2020-12-31 18:41 | disposition home or self-care (01) ==
PROVIDERS: Emergency Medicine Emergency Medical Services; Emergency Provider Emergency Medicine; PCP Emergency Medicine
DX: K22.2 Esophageal obstruction (principal); K44.9 Diaphragmatic hernia without obstruction or gangrene; J96.11 Chronic respiratory failure with hypoxia; Z99.81 Dependence on supplemental oxygen; J43.9 Emphysema, unspecified; K21.9 Gastro-esophageal reflux disease without esophagitis; M19.90 Unspecified osteoarthritis, unspecified site; Z98.42 Cataract extraction status, left eye; Z98.41 Cataract extraction status, right eye; Z87.891 Personal history of nicotine dependence
CPT/HCPCS: 36415; 71045; 74220; 80053; 81001; 83690; 85025; 96361; 96374; 96375; 99284; J2060; J2405; J7040

== ENCOUNTER 2021-01-03 11:02 | Observation (INO) | payer MEDICARE, MEDICAID, SELFPAY ==
[2021-01-03] VITALS (12 sets, daily range): BP systolic 112–129; BP diastolic 77–93; PULSE 73–108; RESP 18–22; TEMP 36.1–36.6; O2SAT 93–99; BMI 38.7
[2021-01-03] MEDS: LORazepam INJ (*CRX) 2 MG/ML VIAL 0.5 MG IV PUSH (13:00)
--- NOTE | 2021-01-03 13:20 | ED.GENADULT ---
HPI - General Adult General Chief complaint: Unspecified <JC Walker Last Filed: 01/03/21 16:51> Stated complaint: epigastric pain, vomiting when eating <JC Walker Last Filed: 01/03/21 16:51> Time Seen by Provider: 01/03/21 12:11 <JC Walker Last Filed: 01/03/21 16:51> Source: patient <JC Walker Last Filed: 01/03/21 16:51> Mode of arrival: ambulatory <JC Walker Last Filed: 01/03/21 16:51> Limitations: no limitations <JC Walker Last Filed: 01/03/21 16:51> History of Present Illness HPI narrative: Patient return to emergency department immediately on 12-31-20 worsening vomiting of food and liquids. Patient was diagnosed with Schatzki's ring at his prior visit and given the option of hospitalization for esophageal dilation or to trial outpatient treatment. Patient states that he was supposed to get his second Covid vaccination on today so he did not want to miss the appointment and was able to keep down liquids so he went home. Patient states whenever he drinks within 10 to 15 minutes he has vomited back of fluids. It is increasing his mucus and irritating his COPD. He denies shortness of breath. He denies feelings of aspiration of food bolus. He states he has not had any solid foods in 1 week. Patient states he is feeling anxious and he forgot his anxiety medications at home. Patient reports that he is on Eliquis due to a DVT last summer and his primary care wants his DVT to be reevaluated during his hospital admission. He denies recent DVT symptoms. <JC Walker Last Filed: 01/03/21 16:51> Related Data Home medications: Home Medications Medication Instructions Recorded Confirmed calcium carbonate-vitamin D3 1 tablet PO DAILY 07/06/20 11/20/20 [Oyster Shell Calcium-Vit D3] omeprazole 20 mg PO DAILY 07/06/20 11/20/20 melatonin 5 mg PO HS 11/20/20 11/20/20 <JC Walker Filed: 01/03/21 16:51> Allergies/adverse reactions: Allergies Allergy/AdvReac Type Severity Reaction Status Date / Time oxycodone Allergy Mild Itching Verified 01/03/21 16:35 <Colette Damon PA-C - Last Filed: 01/03/21 16:51> Review of Systems Review of Systems: Narrative: CONSTITUTIONAL: Denies fever, chills, or sweats. EYES: Denies visual changes, redness, or discharge. ENT: Denies rhinorrhea, congestion, sore throat, or otalgia. CARDIOVASCULAR: Denies chest pain, palpitations, or edema. RESPIRATORY: Denies cough or dyspnea. GASTROINTESTINAL: Reports vomiting after eating/drinking Denies abdominal pain, nausea, vomiting, or diarrhea. GENITOURINARY: Denies dysuria or hematuria. SKIN: Denies rash or itching. MUSCULOSKELETAL: Denies back pain, myalgia, or joint pain NEUROLOGIC: Denies headache, numbness, dizziness, or weakness. PSYCHIATRIC: Denies anxiety or depression. <Colette Damon PA-C - Last Filed: 01/03/21 16:51> [facility] Past Medical History Medical History: Medical History Chronic respiratory failure with hypoxia, on home oxygen therapy 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 10 mg prednisone daily Essential hypertension Gastroesophageal reflux disease Osteoarthritis Pneumonia (~2019) <Colette Damon PA-C - Last Filed: 01/03/21 16:51> Surgical History Surgical History: Surgical History History of bilateral cataract extraction <Colette Damon PA-C - Last Filed: 01/03/21 16:51> Family History Family History: Family History Father Acute myocardial infarction Congestive heart failure Lung cancer Mother Diabetes mellitus Dementia Sibling Diabetes mellitus Lung cancer <Colette Damon PA-C - Last Filed: 01/03/21 16:51> Social History Social History: Social History
[2021-01-03] MEDS: IPRATROPIUM BR 0.02% INH SOLN 0.5 MG/2.5 ML VIAL INHALATION (15:02)
[2021-01-03] MEDS: ALBUTEROL SULFATE NEB 2.5 MG/3 ML INH 1.25 MG INHALATION (15:02)
--- NOTE | 2021-01-03 15:48 | ADMGEN ---
This patient, Bentley Mesa, was admitted to Medical Room 347-. Patient/family oriented to hospital policies and general routines including ID bracelet, bed and alarms, visiting hours, pain management, procedures, bathroom and other care routines, personal items, smoking policy, room service/diet, and visiting hours. Information on how to activate the Rapid Response Team has been discussed. Patient/Family are encouraged to report perceived risks to care and to ask questions if they do not understand what they are told or what they should do.
--- NOTE | 2021-01-03 21:00 | PM.IMHP ---
H&P: HPI History of Present Illness Date/Time: 01/03/21 21:00 Chief Complaint: Epigastric pain, difficulty swallowing. Narrative: This is a 60-year-old male with chronic respiratory failure on home oxygen, COPD, and hypertension who presented to the emergency department earlier today from home for evaluation of epigastric pain and difficulty swallowing. He reports difficulties swallowing and is feeling like food is not going down easily for about the last 3 weeks or so. In fact he was seen in the emergency department on 12/31/2020 for the same thing and a barium swallow x-ray showed evidence of a small sliding hiatal hernia with Schatzki's ring. He decided that he did not want to be admitted as he was supposed to have a fluid at the following day he in he was post schedule follow-up with GI as soon as possible however has not yet done so. Unfortunately he continues to have difficulties swallowing, and is now to the point where he cannot keep lid with down for more than tender b.i.d. med. He denies concerns for aspiration. No chest pain or shortness of breath. Review of Systems Review of Systems: Narrative: Twelve systems were reviewed with pertinent positives and negatives as per HPI. No fever, chills, or sweats. No recent cold or flu symptoms. No hematemesis, melena, hematochezia. Except as documented, all other systems were reviewed and are negative. [facility] Past Medical History Medical History (Updated 01/03/21 @ 21:02 by Deana Bernal PA-C) Chronic respiratory failure with hypoxia, on home oxygen therapy COPD with emphysema Chronic steroid therapy, 10 milligrams prednisone daily. 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 Code status: Full code. Smoking packs per day: 1 Smoking cigarettes per day: 20.0 Years smoked: 47 Smoking pack-years: 47.00 Smoking status: Former smoker Second hand tobacco smoke exposure: Yes Alcohol intake: current Drinks per week: 3 Substance use: former Substance use type: crack/cocaine Other substance usage details: He smoked crack cocaine for 35 years but quit December 2018. Additional living arrangements comments: Patient lives with his in [place]. 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 Gender identity (if verbalized by the patient): Male Spiritual care concerns: Yes (Hoahaoism) Meds Home Medications and Allergies Home Medications Medication Instructions Recorded Confirmed Type calcium carbonate-vitamin D3 1 tablet PO DAILY 07/06/20 01/03/21 History [Oyster Shell Calcium-Vit D3] omeprazole 20 mg PO DAILY 07/06/20 01/03/21 History Mucinex DM 1 tab PO Q12HR #20 tablet 07/14/20 01/03/21 Rx albuterol sulfate 2.5 mg INHALATION DAILY PRN #90 ml 09/27/20 01/03/21 Rx prednisone 10 mg tablet 10 mg PO DAILY #30 tablet 09/27/20 01/03/21 Rx fluticasone propionate 50 1 spray INTRANASAL BID PRN #15.8 ml 11/15/20 01/03/21 Rx mcg/actuation nasal spray,suspension melatonin 5 mg PO HS 11/20/20 01/03/21 History apixaban [Eliquis] 5 mg PO BID #70 tablet 11/21/20 01/03/21 Rx alprazolam 0.5 mg tablet 0.5 mg PO TID PRN #60 tablet 12/07/20 01/03/21 Rx tamsulosin 0.4 mg capsule 0.4 mg PO DAILY #90 cap 12/19/20 01/03/21 Rx famotidine [Pepcid] 20 mg PO
[2021-01-03] MEDS: MELATONIN 5 MG TABLET PO (21:19)
[2021-01-03] MEDS: FAMOTIDINE 20 MG TABLET PO (21:19)
[2021-01-03] MEDS: ALPRAZolam (*CRX) 0.5 MG TABLET PO (22:08)
[2021-01-03] MEDS: BUDESONIDE RESPULE NEB 0.5 MG/2 ML AMP INHALATION (22:57)
[2021-01-03] MEDS: MORPHINE SULFATE (*CRX) 2 MG/ML INJ IV PUSH (23:01)
[2021-01-04] VITALS (16 sets, daily range): BP systolic 119–148; BP diastolic 76–99; PULSE 79–111; RESP 16–24; TEMP 36.1–36.6; O2SAT 95–100
[2021-01-04] MEDS: HYDROcodone/acetaminophen (*CRX) 5-325 MG TABLET 1 TAB PO ×3 (04:34→21:31)
[2021-01-04 05:51] LABS: Hematocrit 38.6 % (42.0-52.0); Hemoglobin 12.4 g/dL (14.0-18.0); Mean Corpuscular HGB Conc 32.1 g/dl (32-36); Mean Corpuscular Hemoglobin 28.9 pg (26-34); Mean Platelet Volume 10.4 fl (7.4-10.4); Platelet Count Result 242 k/mm3 (150-375); Red Blood Count 4.29 M/mm3 (4.6-6.20); Red Cell Distribution Width 14.7 % (11.5-14.5); White Blood Count 5.4 K/mm3 (4.5-10.0)
[2021-01-04 06:09] LABS: Anion Gap 5 mmol/L (8-16); Blood Urea Nitrogen 17 mg/dL (9-20); Carbon Dioxide 30 mmol/L (22-30); Chloride 106 mmol/L (98-107); Estimated CRCL calculation 98 ml/min; Estimated Glomerular Filt Rate > 60; Glucose 92 mg/dL (75-110); Potassium 3.6 mmol/L (3.4-5.0); Sodium 141 mmol/L (137-145)
[2021-01-04] MEDS: BUDESONIDE RESPULE NEB 0.5 MG/2 ML AMP INHALATION ×2 (09:28→19:43)
[2021-01-04] MEDS: ALPRAZolam (*CRX) 0.5 MG TABLET PO ×2 (10:48→20:19)
--- NOTE | 2021-01-04 11:05 | PC.NURSE ---
Patient to GI lab via hospital wheelchair.
[2021-01-04] MEDS: LACTATED RINGERS 1,000 ML 150 ML IV CONT (11:23)
--- NOTE | 2021-01-04 12:18 | WPDANESEPPF ---
Anes - Initial Pre Proc Eval Procedure: Operation Date: 01/04/21 14:00 Proposed Procedures p Esophagogastroduodenoscopy - Pernell Martinez MD Date/Time: 01/04/21 12:18 Surgeon: PREETHI Rolle Pre Op Diagnosis: Schatzki ring- vomiting Patient Data Age: 60 Gender: M Height: 5 ft 9 in Weight: 119 kg Last Vital Signs Temp 97.4 F L 01/04/21 11:20 Pulse 101 H 01/04/21 11:20 Resp 20 01/04/21 11:20 BP 119/87 01/04/21 11:20 Pulse Ox 99 01/04/21 11:20 Allergies Allergy/AdvReac Type Severity Reaction Status Date / Time oxycodone Allergy Mild Itching Verified 01/04/21 11:18 Home Medications Medication Instructions Recorded Confirmed Type calcium carbonate-vitamin D3 1 tablet PO DAILY 07/06/20 01/03/21 History [Oyster Shell Calcium-Vit D3] omeprazole 20 mg PO DAILY 07/06/20 01/03/21 History Mucinex DM 1 tab PO Q12HR #20 tablet 07/14/20 01/03/21 Rx albuterol sulfate 2.5 mg INHALATION DAILY PRN #90 ml 09/27/20 01/03/21 Rx prednisone 10 mg tablet 10 mg PO DAILY #30 tablet 09/27/20 01/03/21 Rx fluticasone propionate 50 1 spray INTRANASAL BID PRN #15.8 ml 11/15/20 01/03/21 Rx mcg/actuation nasal spray,suspension melatonin 5 mg PO HS 11/20/20 01/03/21 History apixaban [Eliquis] 5 mg PO BID #70 tablet 11/21/20 01/03/21 Rx alprazolam 0.5 mg tablet 0.5 mg PO TID PRN #60 tablet 12/07/20 01/03/21 Rx tamsulosin 0.4 mg capsule 0.4 mg PO DAILY #90 cap 12/19/20 01/03/21 Rx famotidine [Pepcid] 20 mg PO BID #14 tablet 12/31/20 01/03/21 Rx budesonide 0.5 mg/2 mL suspension 0.5 mg INHALATION BID #120 ml 01/02/21 01/03/21 Rx for nebulization glycopyrrolate 25 mcg/mL solution 1 ml INHALATION BID #60 ml 01/02/21 01/03/21 Rx for nebulization-nebulizer accessor. ipratropium bromide 0.02 % 2.5 ml INHALATION Q6H PRN #300 ml 01/02/21 01/03/21 Rx solution for inhalation Daliresp 500 mcg PO DAILY 01/03/21 01/03/21 History arformoterol [Brovana] 2 ml INHALATION BID 01/03/21 01/03/21 History buspirone 5 mg PO DAILY 01/03/21 01/03/21 History hydrocodone-acetaminophen 5 - 325 tablet PO Q4-6H PRN 01/03/21 01/03/21 History ondansetron 4 mg PO Q6H PRN 01/03/21 01/03/21 History promethazine-DM 5 ml PO Q4H PRN 01/03/21 01/03/21 History Laboratory Tests 01/04/21 01/04/21 05:37 05:37 WBC 5.4 K/mm3 K/mm3 (4.5-10.0) RBC 4.29 M/mm3 L M/mm3 (4.6-6.20) Hgb 12.4 g/dL L g/dL (14.0-18.0) Hct 38.6 % L % (42.0-52.0) MCV 90.0 fl fl (80-100) MCH 28.9 pg pg (26-34) MCHC 32.1 g/dl g/dl (32-36) RDW 14.7 % H % (11.5-14.5) Plt Count 242 k/mm3 k/mm3 (150-375) MPV 10.4 fl fl (7.4-10.4) Sodium 141 mmol/L mmol/L (137-145) Potassium 3.6 mmol/L mmol/L (3.4-5.0) Chloride 106 mmol/L mmol/L (98-107) Carbon Dioxide 30 mmol/L mmol/L (22-30) Anion Gap 5 mmol/L L mmol/L (8-16) BUN 17 mg/dL mg/dL (9-20) Creatinine 0.90 mg/dL mg/dL (0.7-1.3) Estim Creat Clear Calc 98 ml/min ml/min Estimated GFR > 60 (59 - ) Glucose 92 mg/dL mg/dL (75-110) Calcium 9.0 mg/dL mg/dL (8.4-10.2) Magnesium 2.0 mg/dL mg/dL (1.6-2.3) Patient hx anesthesia problems: none Family hx anesthesia problems: none [facility] Past Medical History Medical History (Updated 01/03/21 @ 21:02 by Deana Bernal PA-C) Chronic respiratory failure with hypoxia, on home oxygen therapy COPD with emphysema Chronic steroid therapy, 10 milligrams prednisone daily. Current use of alf anticoagulation Essential hypertension Gastroesophageal reflux disease Osteoarthritis Pneumonia (~2019) Surgical History Surgical History History of bilateral cataract extraction Family History Family History Father Acute myocardial infarction Congestive
--- NOTE | 2021-01-04 12:36 | WPDGICN ---
Assessment and Plan Assessment and plan (1) Dysphagia: Code(s): R13.10 - Dysphagia, unspecified Status: Acute Assessment and Plan: will proceed with egd to assess, may need biopsies and dilation based on findings more recommendations after egd (2) Schatzki's ring: Code(s): K22.2 - Esophageal obstruction Status: Acute Assessment and Plan: egd with dilation (3) Chronic respiratory failure with hypoxia, on home oxygen therapy: Code(s): J96.11 - Chronic respiratory failure with hypoxia; Z99.81 - Dependence on supplemental oxygen Status: Acute Assessment and Plan: stable, using oxygen (4) Chronic deep vein thrombosis (DVT): Code(s): I82.509 - Chronic embolism and thrombosis of unspecified deep veins of unspecified lower extremity Status: Acute Assessment and Plan: will need to hold eliquis since we are doing egd with possible dilation today (5) Current use of intermediate anticoagulation: Code(s): 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 - 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 Status: Acute (6) COPD with emphysema: Code(s): J43.9 - Emphysema, unspecified Status: Acute GI Consult Note Consult date/time: 01/04/21 12:36 Reason for consult: dysphagia, reflux, nausea HPI: Bentley Mesa is a 60 year old male with copd on home oxygen, former smoker and hypertension who came to the emergency department because ongoing epigastric pain and difficulty swallowing which has gotten worse last 3 week, actually he came to the emergency department on 12/31/2020 with similar symptoms,a barium swallow x-ray showed evidence of a small sliding hiatal hernia with Schatzki's ring (reviewed) and he was supposed to follow-up with GI but worsened dysphagia. He says that after eating dinner then food sometimes won't go down and also having problem with liquids. He says that had a EGD more than a year ago. He also is on eliquis because history of DVT. Never had a colonoscopy. Review of Systems Constitutional: Constitutional: Denies headache(s) and Denies weakness Eyes: Eyes: Denies blurry vision ENT: Reports Normal hearing present, Denies headache(s) and Denies neck pain Cardiovascular: Cardiovascular: Denies chest pain and Denies dyspnea Respiratory: Respiratory: Denies dyspnea Gastrointestinal: Gastrointestinal: Reports no additional gastrointestinal complaints Genitourinary: Genitourinary: Denies dysuria Musculoskeletal: Musculoskeletal: Denies neck pain Integumentary/Breasts: Skin/Breast: Denies dry skin Neurologic: Reports Normal hearing present, Denies headache(s) and Denies weakness Psychiatric: Psychiatric: Denies anxiety Endocrine: Endocrine: Denies change in body appearance Hematologic/Lymphatic: Hematologic/Lymphatic: Denies easy bleeding Allergic/Immunologic: Allergic/Immunologic: Denies urticaria PMF Past Medical History Medical History (Updated 01/03/21 @ 21:02 by Deana Bernal PA-C) Chronic respiratory failure with hypoxia, on home oxygen therapy COPD with emphysema Chronic steroid therapy, 10 milligrams prednisone daily. 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 Code status: Full code. Smoking packs per day: 1 Smoking cigarettes per day: 20.0 Years smoked: 47 Smoking pack-years: 47.00 Smoking status: Former
--- NOTE | 2021-01-04 13:30 | PC.NURSE ---
Patient returned from GI lab via hospital stretcher.
[2021-01-04] MEDS: PANTOPRAZOLE 40 MG TABLET PO (15:12)
[2021-01-04] MEDS: TAMSULOSIN HCL 0.4 MG CAPSULE PO (15:12)
[2021-01-04] MEDS: ROFLUMILAST 500 MCG TABLET PO (15:13)
[2021-01-04] MEDS: busPIRone HCL 5 MG TABLET PO (15:13)
[2021-01-04] MEDS: predniSONE 10 MG TABLET PO (15:13)
--- NOTE | 2021-01-04 17:19 | PM.IMPN ---
Progress Note: A&P Assessment and Plan (1) Dysphagia: Code(s): R13.10 - Dysphagia, unspecified Status: Acute Assessment and Plan: Barium swallow x-ray done earlier this month showed evidence of a small hiatal hernia with Schatzki's ring. EGD this afternoon by Dr Ruiz showed the hiatal hernia and the Schatzki's ring which was dilated. Unfortunately his first meal after EGD he continued to have issues with vomiting immediately after eating, RN made Dr Ruiz aware. Will add back his home zofran for before meals. Appreciate GI recommendations. (2) COPD with emphysema: Code(s): J43.9 - Emphysema, unspecified Status: Chronic Assessment and Plan: No acute issues. Continue home inhalers as prescribed. Patient also on low-dose prednisone daily. (3) Chronic respiratory failure with hypoxia, on home oxygen therapy: Code(s): J96.11 - Chronic respiratory failure with hypoxia; Z99.81 - Dependence on supplemental oxygen Status: Chronic Assessment and Plan: No respiratory distress. Patient at his baseline oxygen requirement. (4) Essential hypertension: Code(s): I10 - Essential (primary) hypertension Status: Acute Assessment and Plan: BPs reviewed, stable. Does not appear to be on antihypertensives. Will continue to monitor BP and adjust treatment as needed. 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 Eliquis was held today in light of his EGD and will be resumed tomorrow. No s/s of acute bleeding, will monitor. Subjective Date/time seen: 01/04/21 1630 Interval history: Mr. Mesa is a pleasant 60yo M admitted with vomiting and trouble swallowing. He has had issues over the last 1 week with difficulty swallowing, and any time he eats he immediately vomits, worsening now to the point where even liquids/water he would vomit back up. He is seen this afternoon after EGD with Dr Ruiz. Unfortunately had some food for lunch that he vomited up almost immediately. Declines nausea or abdominal pain at present. No chest pain or shortness of breath. Review of Systems Review of Systems: All systems reviewed & are unremarkable except as noted in HPI and below Exam Narrative: Exam Narrative: General: Male resting sitting up in bed in no acute distress. HEENT: Normocephalic, EOMI. Oral mucosa moist. Neck: Supple. Respiratory: Respirations are even and nonlabored. Diminished breath sounds throughout otherwise clear to auscultation. Cardiovascular: Rate and rhythm are regular. Gastrointestinal: Abdomen is soft, nontender, and nondistended with positive bowel sounds. Skin: Warm and dry. No rash or lesions on limited exam. Extremities: Peripheral pulses intact. No cyanosis, clubbing, or edema. Neurological: Awake and alert. No focal neurologic deficits noted. Speech is clear. Objective Data Vital Signs Vital Signs: Last Vital Signs Temp 97.8 F 01/04/21 13:39 Pulse 97 01/04/21 19:54 Resp 16 01/04/21 19:54 BP 126/87 01/04/21 13:39 Pulse Ox 96 01/04/21 19:42 Intake/Output Intake/Output: Intake & Output 01/01/21 01/02/21 01/03/21 01/04/21 23:59 23:59 23:59 23:59 Intake Total 450 Output Total 150 Balance 300 Meds/Results Medications: Active Medications Generic Name Dose Route Start Last Admin Trade Name Freq PRN Reason Stop Dose Admin Hydrocodone Bitart/Acetaminophen 1 tab 01/03/21 22:46 01/04/21 04:34 Hydrocodone/Acetaminophen (*Crx) 5-325 Mg Tablet PO 1 tab Q4-6H PRN Administration Pain 4-6 Albuterol 2.5 mg 01/03/21 21:05
[2021-01-04] MEDS: guaiFENesin 600 MG/DEXTROMETHORPHAN 30 MG SR TAB 12 HR 1 TAB PO (17:39)
[2021-01-04] MEDS: ONDANSETRON INJ 4 MG/2 ML VIAL IV PUSH (17:55)
[2021-01-04] MEDS: IPRATROPIUM BR 0.02% INH SOLN 0.5 MG/2.5 ML VIAL INHALATION (19:43)
[2021-01-04] MEDS: MELATONIN 5 MG TABLET PO (20:19)
[2021-01-05] MEDS: HYDROcodone/acetaminophen (*CRX) 5-325 MG TABLET 1 TAB PO ×2 (01:46→08:12)
[2021-01-05] MEDS: IPRATROPIUM BR 0.02% INH SOLN 0.5 MG/2.5 ML VIAL INHALATION (01:58)
[2021-01-05 01:59] VITALS: PULSE 92; RESP 18
[2021-01-05 02:07] VITALS: PULSE 87; RESP 18; RESP 21; O2SAT 96
[2021-01-05 06:00] VITALS: BP 133/87; PULSE 89; RESP 17; TEMP 36.4; O2SAT 96
[2021-01-05] MEDS: guaiFENesin 600 MG/DEXTROMETHORPHAN 30 MG SR TAB 12 HR 1 TAB PO (06:21)
[2021-01-05 06:47] LABS: Alanine Aminotransferase 29 U/L (4-50); Alkaline Phosphatase 71 U/L (38-126); Anion Gap 8 mmol/L (8-16); Aspartate Amino Transferase 33 U/L (17-59); Bilirubin,Total 0.3 mg/dL (0.2-1.3); Blood Urea Nitrogen 16 mg/dL (9-20); Calcium 9.1 mg/dL (8.4-10.2); Carbon Dioxide 29 mmol/L (22-30); Chloride 103 mmol/L (98-107); Estimated CRCL calculation 98 ml/min; Estimated Glomerular Filt Rate > 60; Glucose 79 mg/dL (75-110); Potassium 3.8 mmol/L (3.4-5.0); Sodium 140 mmol/L (137-145)
[2021-01-05 07:37] VITALS: PULSE 89; RESP 18; O2SAT 96
[2021-01-05] MEDS: BUDESONIDE RESPULE NEB 0.5 MG/2 ML AMP INHALATION (07:37)
[2021-01-05] MEDS: ROFLUMILAST 500 MCG TABLET PO (08:07)
[2021-01-05] MEDS: ONDANSETRON INJ 4 MG/2 ML VIAL IV PUSH (08:07)
[2021-01-05] MEDS: busPIRone HCL 5 MG TABLET PO (08:07)
[2021-01-05] MEDS: TAMSULOSIN HCL 0.4 MG CAPSULE PO (08:07)
[2021-01-05] MEDS: predniSONE 10 MG TABLET PO (08:07)
[2021-01-05] MEDS: APIXABAN 5 MG TABLET PO (08:07)
[2021-01-05] MEDS: PANTOPRAZOLE 40 MG TABLET PO (08:07)
[2021-01-05] MEDS: ALPRAZolam (*CRX) 0.5 MG TABLET PO ×2 (08:12→12:10)
--- NOTE | 2021-01-05 09:15 | WPDANESPN ---
Anes - Prog Note Post-Op Date/Time: 01/05/21 09:15 Cardiovascular status: normal Respiratory status: normal Airway patency: baseline Mental status: baseline Post-Op hydration status: normal Vital Signs: Last Vital Signs Temp 97.6 F 01/05/21 06:00 Pulse 89 01/05/21 06:00 Resp 17 01/05/21 06:00 BP 133/87 01/05/21 06:00 Pulse Ox 96 01/05/21 06:00 Pain Score (VAS): 10/23 I/O: Intake & Output 01/04/21 01/05/21 01/05/21 23:59 07:59 15:59 Intake Total 480 350 Output Total 300 600 Balance 180 -250 Laboratory Tests 01/04/21 05:37 01/05/21 05:38 01/05/21 05:38 Sodium 140 Potassium 3.8 Chloride 103 Carbon Dioxide 29 Anion Gap 8 BUN 16 Creatinine 0.90 Estim Creat Clear Calc 98 Estimated GFR > 60 Glucose 79 Calcium 9.1 Total Bilirubin 0.3 AST 33 ALT 29 Alkaline Phosphatase 71 Total Protein 7.0 Albumin 4.0 Patient Feedback: Patient satisfied with anesthetic care.
--- NOTE | 2021-01-05 09:38 | WPDGIPROGNO ---
Progress Note: A&P Assessment and Plan (1) Schatzki's ring: Code(s): K22.2 - Esophageal obstruction Status: Acute Assessment and Plan: dilated yesterday up to 18mm and feeling better, still nauseous for which he can take zofran as needed he can go home today by GI standpoint, will repeat another egd in 6 weeks for another dilation ok to resume anticoagulation (2) Hiatal hernia: Code(s): K44.9 - Diaphragmatic hernia without obstruction or gangrene Status: Acute (3) Nausea: Code(s): R11.0 - Nausea Status: Acute Assessment and Plan: zofran as needed (4) Chronic respiratory failure with hypoxia, on home oxygen therapy: Code(s): J96.11 - Chronic respiratory failure with hypoxia; Z99.81 - Dependence on supplemental oxygen Status: Chronic (5) Dysphagia: Code(s): R13.10 - Dysphagia, unspecified Status: Acute (6) Chronic deep vein thrombosis (DVT): Code(s): I82.509 - Chronic embolism and thrombosis of unspecified deep veins of unspecified lower extremity Status: Acute (7) Colon cancer screening: Code(s): Z12.11 - Encounter for screening for malignant neoplasm of colon Status: Acute Assessment and Plan: he is also interested to have a colonoscopy as outpatient since never had one, will schedule in few weeks Subjective Date/time seen: 01/05/21 09:38 Interval history: he says that after eating had one episode of emesis however he is feeling better after dilation and feeling like going home but also would like to take zofran as needed Review of Systems Review of Systems: All systems reviewed & are unremarkable except as noted in HPI and below Exam Const: General: comfortable and no acute distress HENMT: General nose exam: Normal nares present Eyes: General: appearance normal, both eyes and all related structures Neck: Neck: supple Resp: Auscultation: clear to auscultation bilaterally Cardio: Rate: regular rate GI: Inspection: non-distended GI Palp: Yes Soft to palpation and No Guarding due to palpation present (GI) Auscultation: normal bowel sounds Skin: General skin exam: normal color Neuro: Speech: normal speech Motor exam (neuro): Normal motor muscle tone present throughout Extrem: General: no edema Psych: Mental Status: mental status grossly normal Objective Data Vital Signs Vital Signs: Vital Signs - 24 hr 01/04/21 11:20 01/04/21 12:58 01/04/21 13:08 Temperature 97.4 F L Pulse Rate 101 H 111 H 101 H Respiratory Rate 20 19 20 Blood Pressure 119/87 142/99 H 148/96 H Pulse Oximetry 99 99 97 01/04/21 13:18 01/04/21 13:39 01/04/21 19:42 Temperature 97.8 F Pulse Rate 94 98 108 H Respiratory Rate 20 16 16 Blood Pressure 131/76 126/87 Pulse Oximetry 98 100 96 01/04/21 19:44 01/04/21 19:54 01/04/21 20:21 Temperature 97 F L Pulse Rate 108 H 97 96 Respiratory Rate 16 16 17 Blood Pressure 124/91 H Pulse Oximetry 98 01/04/21 21:35 01/04/21 22:44 01/05/21 01:59 Temperature Pulse Rate 79 92 Respiratory Rate 20 18 Blood Pressure Pulse Oximetry 97 97 01/05/21 02:07 01/05/21 06:00 Temperature 97.6 F Pulse Rate 87 89 Respiratory Rate 21 H 17 Blood Pressure 133/87 Pulse Oximetry 96 96 Intake/Output Intake/Output: Intake & Output 01/02/21 01/03/21 01/04/21 01/05/21 23:59 23:59 23:59 23:59 Intake Total 930 590 Output Total 450 600 Balance 480 -10 Meds/Results Medications: Active Medications Generic Name Dose Route Start Last Admin Trade Name Freq PRN Reason Stop Dose Admin Hydrocodone Bitart/Acetaminophen 1 tab 01/03/21 22:46 01/05/21 08:12 Hydrocodone/Acetaminophen (*Crx) 5-325 Mg Tablet PO 1 tab Q4-6H PRN Administration Pain 4-6 Albuterol 2.5 mg 01/03/21 21:05 Albuterol Sulfate Neb 2.5 Mg/3 Ml Inh INHALATION DAILY PRN shortness of breath or wheezing Alprazolam 0.5 mg 01/03/21 21:05 01/05/21
--- NOTE | 2021-01-05 12:08 | PC.NURSE ---
Per RAY Rendon patient is okay to have another dose of anti-anxiety medication before discharge.
--- NOTE | 2021-01-05 12:16 | PM.DS ---
DS: Admitting Diagnosis Admitting Diagnosis Admitting Diagnosis: Dysphagia, Schatzki ring DS: Discharge Diagnosis Discharge Diagnosis (1) Dysphagia: Code(s): R13.10 - Dysphagia, unspecified Status: Acute Assessment and Plan: Barium swallow x-ray done earlier this month showed evidence of a small hiatal hernia with Schatzki's ring. EGD 01/[address] Ruiz showed the hiatal hernia and the Schatzki's ring which was dilated. Feeling much better today. Tolerating diet, but still slightly nauseous; Zofran helps Okay for discharge from GI standpoint Zofran prn for nausea F/u with GI for repeat EGD and possible colonoscopy (2) COPD with emphysema: Code(s): J43.9 - Emphysema, unspecified Status: Chronic Assessment and Plan: No acute issues. Continue home inhalers as prescribed. Patient also on low-dose prednisone daily. (3) Chronic respiratory failure with hypoxia, on home oxygen therapy: Code(s): J96.11 - Chronic respiratory failure with hypoxia; Z99.81 - Dependence on supplemental oxygen Status: Chronic Assessment and Plan: No respiratory distress. Patient at his baseline oxygen requirement. (4) Essential hypertension: Code(s): I10 - Essential (primary) hypertension Status: Acute Assessment and Plan: BPs reviewed, stable. Does not appear to be on antihypertensives. Will continue to monitor BP and adjust treatment as needed. (5) Current use of senior care anticoagulation: Code(s): Z79.01 - custodial (current) use of anticoagulants Status: Acute Assessment and Plan: Patient on Eliquis for treatment of DVT. Eliquis was held today in light of his EGD and will be resumed tomorrow. No s/s of acute bleeding, will monitor. DS: Summary Hospital Course Reason for hospitalization: DysphagiaMaegan Hospital Course: Date of arrival: 01/03/21 Date of discharge: 01/05/21 Patient is a 60-year-old male with chronic respiratory failure on home oxygen, COPD, and hypertension who presented to the emergency department on 01/03 from home for evaluation of epigastric pain and difficulty swallowing. On 12/31/20 on an ER visit he had a barium swallow xray show evidence of a small sliding hiatal hernia with Schatki's ring; at that time he did not wish to be admitted and would follow up with GI as soon as possible but was unable to do so, prompting a revisit to the ED on 01/03 given no resolution symptoms and persistent vomiting. Patient admitted under the hospitalist service under this setting for further management/treatment. Dr. Martinez (GI) was consulted for further input/management. Please see H&P for further details. After admission, patient was made NPO. EGD performed on 01/04 confirmed Schatzki's ring which was dilated and also a hiatal hernia was confirmed. Plan was initially for him to be discharged the same day if he tolerated his diet, however, he was nauseous and vomited that evening, thus he stayed overnight. On 01/05 his symptoms had improved; he was nauseous but he no longer had vomiting. He was to follow up with GI as an outpatient in 6 weeks for repeat EGD and another dilation. His Eliquis was resumed on 01/05. He was to follow up with his PCP as well. Soft/regular diet was recommended. Patient agreeable and comfortable with plan for discharge. Patient hemodynamically stable and in improved condition for discharge on 01/05 Status at Discharge Overall status at discharge: patient is progressing back to baseline Time Spent with Patient Time attestation: Total time spent providing and/or coordinating discharge services: Time spent: Greater than 30 minutes Exam Narrative: Exam Narrative: General: Pat
== END 2021-01-05 13:05 | disposition home or self-care (01) ==
LOC: ANHED 13:34 → ANH3MED 15:30
PROVIDERS: Internal Medicine Gastroenterology; Physician Assistant; Admitting Provider Family Medicine; Emergency Provider Emergency Medicine; PCP Emergency Medicine; Visit Provider Physician Assistant
PROC: 0DJ08ZZ Inspection of Upper Intestinal Tract, Via Natural or Artificial Opening Endoscopic (ICD-10-PCS; CPT 43235; principal; 2021-01-04 14:00)
DX: K22.2 Esophageal obstruction (principal); K44.9 Diaphragmatic hernia without obstruction or gangrene; K29.50 Unspecified chronic gastritis without bleeding; R13.10 Dysphagia, unspecified; I10 Essential (primary) hypertension; J96.11 Chronic respiratory failure with hypoxia; K21.9 Gastro-esophageal reflux disease without esophagitis; J43.9 Emphysema, unspecified; Z79.01 Long term (current) use of anticoagulants; Z99.81 Dependence on supplemental oxygen
CPT/HCPCS: 43239; 43249; 36415; 80048; 80053; 83735; 85027; 88305; 88342; 94640; 96374; 96375; 96376; 99285; A9270; C1726; G0378; J2001; J2060; J2270; J2405; J2704; J7120; J7512

== ENCOUNTER 2021-01-26 10:59 | Inpatient (IN) | payer MEDICARE, MEDICAID, SELFPAY ==
[2021-01-26] VITALS (15 sets, daily range): BP systolic 133–158; BP diastolic 87–103; PULSE 82–107; RESP 12–23; TEMP 36.3–36.7; O2SAT 94–100
--- NOTE | ~2021-01-26 | XR_ITS ---
EXAMINATION: XR chest 2V DATE: 01/26/2021 11:45 INDICATION: Shortness of breath. Left chest pain. TECHNIQUE: Frontal and lateral views of the chest were obtained. COMPARISON: Chest single view 12/31/2020, chest CT 11/21/2020 FINDINGS: There are lucencies and chronic interstitial opacities in the lungs, consistent with emphys zach. There is mild scarring in right upper lobe. No pleural effusion or pneumothorax. The heart size is normal. IMPRESSION: 1. Emphysema. Reviewed, dictated and finalized at location A. IMPRESSION: 1. Emphysema.
--- NOTE | ~2021-01-26 | CT_ITS ---
EXAMINATION: CTA chest PE protocol DATE: 01/27/2021 11:23 INDICATION: Shortness of breath. Pleuritic chest pain. TECHNIQUE: Computed tomography angiography (CTA) of the chest was performed with 100 mL Omnipaque-350 intravenous contrast timed to evaluate the pulmonary arteries. Coronal maximum intensity projection 3D-reconstructions were created by the technologist. Automated exposure control and iterative reconst ruction technique were employed. The dose-length product was 876.75 mGy-cm. COMPARISON: Chest CT 11/21/2020 FINDINGS: There is severe emphysema. There is discoid atelectasis and scarring involving right upper lobe and right lower lobe. There is mild atelectasis and scarring in left lung. No pleural effusion. The heart size is normal. No pericardial effusion. There is no pulmonary embolus. There is mild media stinal and bilateral hilar lymphadenopathy, likely reactive. There is mild thoracic spondylosis. IMPRESSION: 1. No pulmonary embolus. 2. Severe emphysema with areas of atelectasis and scarring. 3. Mild mediastinal and bilateral hilar lymphadenopathy, likely reactive. Reviewed, dictated and finalized at location A.
--- NOTE | 2021-01-26 11:04 | ECG_ITS ---
Measurements Intervals [place] Rate: 101 P: 27 VT: 116 QRS: 38 QRSD: 82 T: 58 QT: 361 QTc: 469 Interpretive Statements SINUS TACHYCARDIA WITH SHORT VT INTERVAL VENTRICULAR PREMATURE COMPLEX BASELINE ARTIFACT- V4 BORDERLINE ECG Electronically Signed On 01-26-2021 11:06:28 CDT by Jeremy Ibarra D.O.
[2021-01-26 11:38] LABS: Basophils Absolute Auto 0.1 K/mm3 (0.0-0.1); Basophils Percent Auto 1.5 % (0.2-1.2); Eosinophils Absolute Auto 0.3 K/mm3 (0-0.3); Eosinophils Percent Auto 5.5 % (0-4.4); Hematocrit 40.9 % (42.0-52.0); Hemoglobin 13.2 g/dL (14.0-18.0); Immature Granulocyte Absolute 0.01 K/mm3 (0.00-0.031); Immature Granulocyte Percent A 0.2 % (0-0.5); Lymphocytes Absolute Auto 0.89 K/mm3 (0.9-3.2); Lymphocytes Percent Auto 16.8 % (18.3-44.2); Mean Corpuscular HGB Conc 32.3 g/dl (32-36); Mean Corpuscular Volume 89.9 fl (80-100); Mean Platelet Volume 10.6 fl (7.4-10.4); Monocytes Absolute Auto 0.6 K/mm3 (0.1-0.6); Monocytes Percent Auto 11.1 % (2.6-8.5); Neutrophils Absolute Auto 3.5 K/mm3 (1.3-6.7); Neutrophils Percent Auto 64.9 % (45.5-73.1); Platelet Count Result 263 k/mm3 (150-375); Red Blood Count 4.55 M/mm3 (4.6-6.20); Red Cell Distribution Width 15.3 % (11.5-14.5); White Blood Count 5.3 K/mm3 (4.5-10.0)
[2021-01-26 11:48] LABS: Anion Gap 7 mmol/L (8-16); Blood Urea Nitrogen 16 mg/dL (9-20); Calcium 9.5 mg/dL (8.4-10.2); Carbon Dioxide 29 mmol/L (22-30); Chloride 106 mmol/L (98-107); Estimated CRCL calculation 95 ml/min; Estimated Glomerular Filt Rate > 60; Glucose 98 mg/dL (75-110); Potassium 3.8 mmol/L (3.4-5.0); Sodium 142 mmol/L (137-145)
[2021-01-26] MEDS: ALBUTEROL SULFATE NEB 2.5 MG/0.5 ML INH 5 MG INHALATION (12:35)
[2021-01-26] MEDS: IPRATROPIUM BR 0.02% INH SOLN 0.5 MG/2.5 ML VIAL INHALATION (12:35)
[2021-01-26 13:08] LABS: Base Excess ABG 1.5 mEq/l (+/-2.0); Carboxyhemoglobin 0.8 % THb (0-2.0); Fractional Inspired Oxygen 32 %; HCO3 ABG 26.8 mEq/l (22.0-26.0); Methemoglobin ABG 0.4 %THb (0-1.5); Oxygen Content ABG 9.4 %vol (16.0-22.0); Oxyhemoglobin 50.1 % THb (90.0-100.0); PCO2 ABG 44.9 mmHg (35.0-45.0); PO2 FiO2 Ratio Arterial Blood 0.86 %; Reduced Hemoglobin 48.7 %THb (0-5.0); Total Hemoglobin 13.4 g/dL (12.0-18.0); pH ABG 7.394 (7.350-7.450)
[2021-01-26 13:12] LABS: PO2 ABG 27.6 mmHg (80.0-100.0)
[2021-01-26 13:13] LABS: Device NASAL CANNULA; Modified Allen's Test Pass; Oxygen Saturation ABG 50.9 % (95.0-100.0); Site Drawn LEFT RADIAL
--- NOTE | 2021-01-26 13:19 | PC.NURSE ---
Pts asked if she could get patient some mashed potatoes to eat. Okay per RALEIGH santillan
--- NOTE | 2021-01-26 13:45 | ED.SOB ---
HPI - SOB/Dyspnea General Chief Complaint: Shortness of Breath/Dyspnea Stated Complaint: CP Time Seen by Provider: 01/26/21 11:28 Source: patient Mode of arrival: ambulatory Limitations: no limitations History of Present Illness HPI Narrative: This is a 51 year old male with history of COPD, home oxygen 3LNC who presents for evaluation of shortness of breath and chest pain. Patient states this morning he woke up with bilateral axillary pain and midsternal chest pain. He also reports feeling like he has nasal congestion, difficulty breathing from his nose, sob and that his throat was closing. He reports he took some jennifer seltzer. He continued to feel like he could not breath so his patted him on the back. After this he reports he started vomiting. He reports his chest pain resolved at that time. He states later he was getting up and he developed chest pain again. He states he thinks his chest pain is due to movement from moving on Saturday. He reports he is concerned that he may have pneumonia, or related to his esophageal dilations. His esophagus was dilated last month. HE states he continues to feel like is having difficulty swallowing food and liquids. Related Data Home Medications Medication Instructions Recorded Confirmed calcium carbonate-vitamin D3 1 tablet PO DAILY 07/06/20 01/26/21 [Oyster Shell Calcium-Vit D3] omeprazole 20 mg PO DAILY 07/06/20 01/26/21 Brovana 2 ml INHALATION BID 01/03/21 01/26/21 Daliresp 500 mcg PO DAILY 01/03/21 01/26/21 hydrocodone-acetaminophen 5 - 325 tablet PO Q4-6H PRN 01/03/21 01/26/21 promethazine-DM 5 ml PO Q4H PRN 01/03/21 01/26/21 Allergies Allergy/AdvReac Type Severity Reaction Status Date / Time oxycodone Allergy Mild Itching Verified 01/26/21 16:55 Review of Systems Review of Systems: All systems reviewed & are unremarkable except as noted in HPI and below PMFSH Past Medical History Medical History Chronic respiratory failure with hypoxia, on home oxygen therapy Colon cancer screening COPD with emphysema Chronic steroid therapy, 10 milligrams prednisone daily. Current use of long-term anticoagulation Essential hypertension Gastroesophageal reflux disease Hiatal hernia Nausea Osteoarthritis Pneumonia (~2019) Surgical History Surgical History History of bilateral cataract extraction Family History Family History Father Acute myocardial infarction Congestive heart failure Lung cancer Mother Diabetes mellitus Dementia Sibling Diabetes mellitus Lung cancer Social History Social History (Updated 01/03/21 @ 20:59 by ERICA LopezC) Social History: Surrogate decision maker: Sloane Sellers, . Code status: Full code. Smoking packs per day: 0.5 Smoking cigarettes per day: 10.0 Years smoked: 47 Smoking pack-years: 23.50 Smoking status: Former smoker Tobacco type: cigarettes Second hand tobacco smoke exposure: Yes Smoking end date: 11/26/18 Alcohol intake: current Drinks per week: 1 Substance use: former Substance use type: crack/cocaine Other substance usage details: He smoked crack cocaine for 35 years but quit December 2018. Additional living arrangements comments: Patient lives with his in [place]. 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 Gender identity (if verbalized by the patient): Male Spiritual care concerns: No Exam Const: General: no acute distress and alert Orientation/consciousness: patient oriented x3 Eyes: EOM: EOMs intact bilaterally Resp: Effort & Inspection: normal respiratory effort Auscultation: clear to auscultation bilaterally Other: speaking in long complete sentences Cardio:
[2021-01-26 13:50] LABS: Partial Thromboplastin Time 28.2 SECONDS (22.3-36.8); Prothrombin Time 13.5 Seconds (11.1-14.7)
[2021-01-26 13:53] LABS: D Dimer 0.27 ug/mL (<0.48)
[2021-01-26 14:02] LABS: Troponin I < 0.012 ng/mL (0.000-0.034)
[2021-01-26] MEDS: ALPRAZolam (*CRX) 0.25 MG TABLET 0.5 MG PO (15:29)
[2021-01-26] MEDS: ONDANSETRON INJ 4 MG/2 ML VIAL IV PUSH (15:29)
[2021-01-26 16:01] LABS: Troponin I < 0.012 ng/mL (0.000-0.034)
--- NOTE | 2021-01-26 16:53 | ADMGEN ---
This patient, Bentley Mesa, was admitted to IMU Room 212-01. Patient/family oriented to hospital policies and general routines including ID bracelet, bed and alarms, visiting hours, pain management, procedures, bathroom and other care routines, personal items, smoking policy, room service/diet, and visiting hours. Information on how to activate the Rapid Response Team has been discussed. Patient/Family are encouraged to report perceived risks to care and to ask questions if they do not understand what they are told or what they should do.
[2021-01-26] MEDS: SODIUM CHLORIDE 0.9% IV 1,000 ML 125 ML IV CONT (17:05)
[2021-01-26 17:59] LABS: Troponin I < 0.012 ng/mL (0.000-0.034)
--- NOTE | 2021-01-26 20:30 | PM.IMHP ---
H&P: HPI History of Present Illness Date/Time: 01/26/21 20:30 Chief Complaint: Chest pain, shortness of breath, and postnasal drip. Narrative: This is a 61-year-old male with chronic respiratory failure on home oxygen, COPD, hypertension, chronic right femoral DVT not on anticoagulation at this time, and seasonal allergies who presented to the emergency department earlier today from home with several complaints including chest pain, shortness of breath, and postnasal drip. The patient is known to myself and the hospitalist service with a recent admission for dysphagia in December 2020. Upper endoscopy on 01/04/[address] Martinez demonstrated a hiatal hernia and Schatzki's ring which was dilated. He had immediate improvement in his dysphagia thereafter but unfortunately over the last week he has once again been having issues, not necessarily with swallowing but instead he has feelings food getting stuck in the lower esophagus. It is now to the point where his food will stay down maybe 5 to 7 minutes before coming back up. He believes he has lost about 30 pounds in the last month due to ongoing issues with the same. Additionally he has had pretty significant postnasal drip, to the point where he has constant mucus in the back of his throat which causes him to gag quite often and feel short of breath. He does not think the gagging episodes are related to the regurgitation of his food however. He has been taking Sera-Bloomer and Benadryl without a whole lot of benefit. The patient also mentions having intermittent chest pain over the past several days, describing upper chest and upper back aching which he attributes to ?my muscles waking up? as he and his have been moving house the last couple of days. He goes on to say that he has not been doing any heavy lifting or much work in the move at all aside from driving the [employer]. On occasion however he will have some sharp shooting pain in the left chest although he denies that is related to cough or deep inspiration. He has not currently more short of breath than at baseline. He denies lower extremity edema, calf pain, and tenderness. He denies nausea and sweats. Review of Systems Review of Systems: Narrative: Twelve systems were reviewed with pertinent positives and negatives as per HPI. No fever, chills, or sweats. No exposure to those positive for COVID-19. He denies anosmia and dysgeusia. He has year long allergies but they seemed to be worse this time of year, despite taking Mucinex and using Flonase daily. He has been having some loose stools. No known history of malignancy. Except as documented, all other systems were reviewed and are negative. [facility] Past Medical History Medical History (Updated 01/26/21 @ 20:51 by Deana Bernal PA-C) Chronic deep vein thrombosis (DVT) Linear echogenic filling defect in the right femoral vein, likely chronic thrombus on venous dopplers 11/2020. Chronic respiratory failure with hypoxia, on home oxygen therapy COPD with emphysema Chronic steroid therapy, 10 milligrams prednisone daily. Essential hypertension Gastroesophageal reflux disease Hiatal hernia Osteoarthritis Pneumonia (~2019) Surgical History Surgical History History of bilateral cataract extraction Family History Family History Father Acute myocardial infarction Congestive heart failure Lung cancer Mother Diabetes mellitus Dementia Sibling Diabetes mellitus Lung cancer Social History Social History Social History: Surrogate decision maker: Sloane Sellers, . Code status: Full code. Smoking packs per day: 0.5 Smoking cigarettes per day: 10.0 Years smoked: 47 Smoking pack-years: 23.50 Smoking status: Former smoker Tobacco type: cigarettes Second hand tobacco smoke e
[2021-01-26] MEDS: guaiFENesin 600 MG/DEXTROMETHORPHAN 30 MG SR TAB 12 HR 1 TAB PO (22:07)
[2021-01-26] MEDS: MELATONIN 5 MG TABLET 10 MG PO (22:07)
[2021-01-26] MEDS: ALPRAZolam (*CRX) 0.5 MG TABLET PO (22:07)
[2021-01-26] MEDS: HYDROcodone/acetaminophen (*CRX) 5-325 MG TABLET 1 TAB PO (22:08)
[2021-01-27] VITALS (24 sets, daily range): BP systolic 103–147; BP diastolic 62–91; PULSE 73–103; RESP 12–24; TEMP 36.1–36.8; O2SAT 95–100; BMI 38.0
[2021-01-27] MEDS: HYDROcodone/acetaminophen (*CRX) 5-325 MG TABLET 1 TAB PO ×3 (05:11→20:18)
[2021-01-27 05:15] LABS: Basophils Absolute Auto 0.1 K/mm3 (0.0-0.1); Basophils Percent Auto 1.5 % (0.2-1.2); Eosinophils Absolute Auto 0.4 K/mm3 (0-0.3); Eosinophils Percent Auto 10.5 % (0-4.4); Hematocrit 35.3 % (42.0-52.0); Hemoglobin 11.2 g/dL (14.0-18.0); Immature Granulocyte Absolute 0.01 K/mm3 (0.00-0.031); Immature Granulocyte Percent A 0.2 % (0-0.5); Lymphocytes Absolute Auto 1.04 K/mm3 (0.9-3.2); Lymphocytes Percent Auto 25.3 % (18.3-44.2); Mean Corpuscular HGB Conc 31.7 g/dl (32-36); Mean Corpuscular Hemoglobin 28.6 pg (26-34); Mean Corpuscular Volume 90.3 fl (80-100); Mean Platelet Volume 10.9 fl (7.4-10.4); Monocytes Absolute Auto 0.7 K/mm3 (0.1-0.6); Monocytes Percent Auto 17.5 % (2.6-8.5); Neutrophils Absolute Auto 1.9 K/mm3 (1.3-6.7); Platelet Count Result 241 k/mm3 (150-375); Red Blood Count 3.91 M/mm3 (4.6-6.20); Red Cell Distribution Width 15.4 % (11.5-14.5); White Blood Count 4.1 K/mm3 (4.5-10.0)
[2021-01-27 05:34] LABS: Alanine Aminotransferase 28 U/L (4-50); Albumin Level 3.6 g/dL (3.5-5.1); Alkaline Phosphatase 55 U/L (38-126); Anion Gap 3 mmol/L (8-16); Aspartate Amino Transferase 40 U/L (17-59); Bilirubin,Total 0.4 mg/dL (0.2-1.3); Blood Urea Nitrogen 15 mg/dL (9-20); Calcium 8.5 mg/dL (8.4-10.2); Carbon Dioxide 29 mmol/L (22-30); Chloride 108 mmol/L (98-107); Estimated CRCL calculation 95 ml/min; Estimated Glomerular Filt Rate > 60; Glucose 80 mg/dL (75-110); Potassium 3.6 mmol/L (3.4-5.0); Sodium 140 mmol/L (137-145)
[2021-01-27] MEDS: ALBUTEROL SULFATE NEB 2.5 MG/3 ML INH INHALATION ×2 (08:22→20:01)
[2021-01-27] MEDS: BUDESONIDE RESPULE NEB 0.5 MG/2 ML AMP INHALATION ×2 (08:22→20:01)
--- NOTE | 2021-01-27 11:45 | WPDANESEPPF ---
Anes - Initial Pre Proc Eval Procedure: Operation Date: 01/27/21 14:30 Proposed Procedures p Esophagogastroduodenoscopy - Pernell Martinez MD Date/Time: 01/27/21 11:45 Surgeon: Christelle Woodall MD Pre Op Diagnosis: chest pain,dysphagia,copd Patient Data Age: 61 Gender: M Height: 5 ft 9 in Weight: 117 kg Last Vital Signs Temp 98.2 F 01/27/21 11:41 Pulse 80 01/27/21 11:41 Resp 22 H 01/27/21 11:41 BP 137/85 01/27/21 11:41 Pulse Ox 100 01/27/21 11:41 Allergies Allergy/AdvReac Type Severity Reaction Status Date / Time oxycodone Allergy Mild Itching Verified 01/27/21 11:38 Home Medications Medication Instructions Recorded Confirmed Type calcium carbonate-vitamin D3 1 tablet PO DAILY 07/06/20 01/26/21 History [Oyster Shell Calcium-Vit D3] omeprazole 20 mg PO DAILY 07/06/20 01/26/21 History Mucinex DM 1 tab PO Q12HR #20 tablet 07/14/20 01/26/21 Rx albuterol sulfate 2.5 mg INHALATION DAILY PRN #90 ml 09/27/20 01/26/21 Rx prednisone 10 mg tablet 10 mg PO DAILY #30 tablet 09/27/20 01/26/21 Rx fluticasone propionate 50 1 spray INTRANASAL BID PRN #15.8 ml 11/15/20 01/26/21 Rx mcg/actuation nasal spray,suspension alprazolam 0.5 mg tablet 0.5 mg PO TID PRN #60 tablet 12/07/20 01/26/21 Rx tamsulosin 0.4 mg capsule 0.4 mg PO DAILY #90 cap 12/19/20 01/26/21 Rx famotidine [Pepcid] 20 mg PO BID #14 tablet 12/31/20 01/26/21 Rx budesonide 0.5 mg/2 mL suspension 0.5 mg INHALATION BID #120 ml 01/02/21 01/26/21 Rx for nebulization glycopyrrolate 25 mcg/mL solution 1 ml INHALATION BID #60 ml 01/02/21 01/26/21 Rx for nebulization-nebulizer accessor. ipratropium bromide 0.02 % 2.5 ml INHALATION Q6H PRN #300 ml 01/02/21 01/26/21 Rx solution for inhalation Brovana 2 ml INHALATION BID 01/03/21 01/26/21 History Daliresp 500 mcg PO DAILY 01/03/21 01/26/21 History hydrocodone-acetaminophen 5 - 325 tablet PO Q4-6H PRN 01/03/21 01/26/21 History promethazine-DM 5 ml PO Q4H PRN 01/03/21 01/26/21 History ondansetron HCl [Zofran] 4 mg PO Q8H PRN #90 tablet 01/05/21 01/26/21 Rx buspirone 5 mg tablet 5 mg PO DAILY #90 tablet 01/06/21 01/26/21 Rx miconazole nitrate 1 applic TOPICAL BID 01/26/21 01/26/21 History terbinafine HCl 250 mg PO DAILY 01/26/21 01/26/21 History Laboratory Tests 01/26/21 01/26/21 01/26/21 11:32 11:32 11:32 WBC RBC Hgb Hct MCV MCH MCHC RDW Plt Count MPV Immature Gran % (Auto) Neut % (Auto) Lymph % (Auto) [place] % (Auto) Eos % (Auto) Baso % (Auto) Lymph # (Auto) [place] # (Auto) Eos # (Auto) Baso # (Auto) Abs Immat Gran (auto) Absolute Neuts (auto) Absolute Nucleated RBC Nucleated RBC % PT 13.5 Seconds Seconds (11.1-14.7) INR 1.0 APTT 28.2 SECONDS SECONDS (22.3-36.8) D-Dimer 0.27 ug/mL ug/mL (<0.48) Puncture Site ABG pH ABG pCO2 ABG pO2 ABG PO2/FiO2 Ratio ABG HCO3 ABG O2 Saturation ABG O2 Content ABG Base Excess A-a Gradient Oxyhemoglobin Carboxyhemoglobin Methemoglobin Reduced Hemoglobin Total Hemoglobin O2 Delivery Device O2 Liters/Min FiO2 Sodium 142 mmol/L mmol/L (137-145) Potassium 3.8 mmol/L mmol/L (3.4-5.0) Chloride 106 mmol/L mmol/L (98-107) Carbon Dioxide 29 mmol/L mmol/L (22-30) Anion Gap 7 mmol/L L mmol/L (8-16) BUN 16 mg/dL mg/dL (9-20) Creatinine 0.90 mg/dL mg/dL (0.7-1.3) Estim Creat Clear Calc 95 ml/min ml/min
[2021-01-27] MEDS: LACTATED RINGERS 1,000 ML 150 ML IV CONT (11:46)
--- NOTE | 2021-01-27 12:39 | WPDGICN ---
Assessment and Plan Assessment and plan (1) Dysphagia: Code(s): R13.10 - Dysphagia, unspecified Status: Acute Assessment and Plan: will proceed with egd again, probably will need another dilation more recommendations after egd (2) Schatzki's ring: Code(s): K22.2 - Esophageal obstruction Status: Acute Assessment and Plan: dilated few weeks ago, reassess (3) Sliding hiatal hernia: Code(s): K44.9 - Diaphragmatic hernia without obstruction or gangrene Status: Acute (4) Shortness of breath: Code(s): R06.02 - Shortness of breath Status: Acute Assessment and Plan: more symptomatic, CTA chest no pe he has advanced copd (5) Nausea: Code(s): R11.0 - Nausea Status: Acute Assessment and Plan: medical treatment (6) Chronic respiratory failure with hypoxia, on home oxygen therapy: Code(s): J96.11 - Chronic respiratory failure with hypoxia; Z99.81 - Dependence on supplemental oxygen Status: Chronic GI Consult Note Consult date/time: 01/27/21 12:39 Reason for consult: dysphagia HPI: Bentley Mesa is a 61 year old male with history of advanced COPD on home oxygen, hypertension, chronic right femoral DVT not on anticoagulation at this time here after having chest pain, more shortness of breath and postnasal drip. Also has been complaining of food coming back up after eating, can not tell if dilation helped much. I met him during recent hospitalization about 3 weeks ago, I performed EGD that showed medium size hiatal hernia, non-obstructive ring dilated with TTS 15-18 mm, stomach bx showed gastritis. CTA chest reviewed, no PE but emphysema. Review of Systems Constitutional: Constitutional: Denies chills Eyes: Eyes: Reports no additional eye complaints ENT: Reports Normal hearing present Cardiovascular: Cardiovascular: Reports chest pain Respiratory: Respiratory: Reports cough and Reports dyspnea Gastrointestinal: Gastrointestinal: Reports dysphagia and Reports nausea Genitourinary: Genitourinary: Denies dysuria Musculoskeletal: Musculoskeletal: Denies neck pain Integumentary/Breasts: Skin/Breast: Denies dry skin Neurologic: Reports system reviewed and no additional complaints, except as documented Psychiatric: Psychiatric: Reports no additional psychiatric complaints PMFSH Past Medical History Medical History (Updated 01/26/21 @ 20:51 by Deana Bernal PA-C) Chronic deep vein thrombosis (DVT) Linear echogenic filling defect in the right femoral vein, likely chronic thrombus on venous dopplers 11/2020. Chronic respiratory failure with hypoxia, on home oxygen therapy COPD with emphysema Chronic steroid therapy, 10 milligrams prednisone daily. Essential hypertension Gastroesophageal reflux disease Hiatal hernia Osteoarthritis Pneumonia (~2019) Surgical History Surgical History History of bilateral cataract extraction Family History Family History Father Acute myocardial infarction Congestive heart failure Lung cancer Mother Diabetes mellitus Dementia Sibling Diabetes mellitus Lung cancer Social History Social History Social History: Surrogate decision maker: Sloane Sellers, . Code status: Full code. Smoking packs per day: 0.5 Smoking cigarettes per day: 10.0 Years smoked: 47 Smoking pack-years: 23.50 Smoking status: Former smoker Tobacco type: cigarettes Second hand tobacco smoke exposure: Yes Smoking end date: 11/26/18 Alcohol intake: current Drinks per week: 1 Substance use: former Substance use type: crack/cocaine Other substance usage details: He smoked crack cocaine for 35 years but quit December 2018. Additional living arrangements comments: Patient lives with his in
[2021-01-27] MEDS: BENZOCAINE (*SP) 60 ML SPRAY CAN (HURRICAINE) 1 SPRAY MUCOUS MEM (12:44)
--- NOTE | 2021-01-27 12:47 | SUR.OPER ---
Esophageal Balloon Lot: [id number] Exp: 2022-12-06
[2021-01-27] MEDS: methylPREDNISolone SOD SUCC 125 MG VIAL 60 MG IV PUSH ×2 (14:03→20:04)
[2021-01-27] MEDS: ROFLUMILAST 500 MCG TABLET PO (14:04)
[2021-01-27] MEDS: LORATADINE 10 MG TABLET PO (14:04)
[2021-01-27] MEDS: FAMOTIDINE 20 MG TABLET PO ×2 (14:04→20:05)
[2021-01-27] MEDS: terbinafine HCL 250 MG TABLET PO (14:04)
[2021-01-27] MEDS: TAMSULOSIN HCL 0.4 MG CAPSULE PO (14:04)
[2021-01-27] MEDS: guaiFENesin 600 MG/DEXTROMETHORPHAN 30 MG SR TAB 12 HR 1 TAB PO ×2 (14:04→20:05)
[2021-01-27] MEDS: PANTOPRAZOLE SOD SESQUIHYDRATE 20 MG TAB PO (14:05)
[2021-01-27] MEDS: predniSONE 10 MG TABLET PO (14:05)
--- NOTE | 2021-01-27 14:13 | PM.IMPN ---
Progress Note: A&P Assessment and Plan (1) Chest pain: Code(s): R07.9 - Chest pain, unspecified Status: Acute Assessment and Plan: Atypical chest pain, likely musculoskeletal in etiology however he reports intermittent left-sided chest pain which he describes as sharp and shooting. Given venous Doppler ultrasounds in November 2020 showing chronic femoral DVT I think we need to rule out pulmonary embolism. He has ruled out for acute coronary syndrome by serial troponins. Monitor on telemetry overnight. 01/27/21 14:13 Patient is 61-year-old male with history of severe emphysema presented emergency department with a complaint chest pain and shortness of breath, in terms of chest pain 3 sets of cardiac enzymes are negative and there is no acute changes on EKG [place] is ruled out, patient does complaint shortness of breath and has history of chronic DVT to further evaluate patient had CTA of the chest which did not show any pulmonary emboli but again shows severe emphysema with scar, patient continue to complain cough and shortness of breath most likely patient has exacerbation of COPD will start the patient on Solu-Medrol continue updraft and add azithromycin to cover for atypical, patient also complains of nasal congestion and nose bleeding patient states on and off he gets nosebleeds has a difficulty at time with breathing will have ENT evaluate the patient and further recommendation to follow (2) Shortness of breath: Code(s): R06.02 - Shortness of breath Status: Acute Assessment and Plan: He has baseline dyspnea due to his COPD/emphysema although it sounds as though he has been feeling increasingly short of breath recently. While he has attributed this to mucus in his throat from postnasal drip, we need to rule out pulmonary embolism as above. He is currently at his baseline oxygen requirement. (3) Dysphagia: Code(s): R13.10 - Dysphagia, unspecified Status: Acute Assessment and Plan: Status post dilatation on 01/04/2021. Patient once again complains of feeling as though food is getting stuck in his lower esophagus. Dr. Ruiz has been consulted and the patient will be NPO for possible endoscopy tomorrow. He may take meds with sips of water as he apparently he has been tolerating this at home. (4) Chronic respiratory failure with hypoxia, on home oxygen therapy: Code(s): J96.11 - Chronic respiratory failure with hypoxia; Z99.81 - Dependence on supplemental oxygen Status: Chronic Assessment and Plan: He is at his baseline oxygen requirement. (5) COPD with emphysema: Qualifiers: Emphysema type: unspecified Qualified Code(s): J43.9 - Emphysema, unspecified Code(s): J43.9 - Emphysema, unspecified Status: Chronic Assessment and Plan: No acute issues. Continue home respiratory regimen. (6) Essential hypertension: Code(s): I10 - Essential (primary) hypertension Status: Acute Assessment and Plan: Blood pressures were reviewed and they have been running in the 140s to 150 systolic. I do not see that he is on any antihypertensives at this time. For now we will monitor his blood pressures closely and consider initiation of such. Subjective Date/time seen: 01/27/21 14:13 Patient is 61-year-old male with history of severe emphysema presented emergency department with a complaint chest pain and shortness of breath, in terms of chest pain 3 sets of cardiac enzymes are negative and there is no acute changes on EKG [place] is ruled out, patient does complaint shortness of breath and has history of chronic DVT to further evaluate patient had CTA of the chest which did not show any pulmonary emboli but again shows severe emphysema with scar, patient continue to complain cough and shortness of breath most likely patient has exacerbation of COPD will start the patient on Solu-Medrol continue updraft and add azithromycin to c
[2021-01-27] MEDS: ONDANSETRON INJ 4 MG/2 ML VIAL IV PUSH ×2 (15:23→23:44)
--- NOTE | 2021-01-27 18:12 | WPDCN ---
Assessment and Plan Assessment and plan (1) Facial pressure: Code(s): R44.8 - Other symptoms and signs involving general sensations and perceptions Status: Acute Assessment and Plan: Would recommend follow up following discharge. Recommend bid abx ointment to the anterior nasal passages, frequent nasal saline sprays when awake. No objects in nose, no nose picking. Proper flonase directions provided. (2) PND (post-nasal drip): Code(s): R09.82 - Postnasal drip Status: Acute (3) Epistaxis: Code(s): R04.0 - Epistaxis Status: Acute HPI Data of Consult Date/Time: 01/27/21 18:12 Requesting Physician: Christelle Woodall MD Primary Care Provider: Bentley Kyle MD Consult Narrative Narrative: Bentley Mesa is a 61 year old male with recurrent epistaxis and facial pressure/post nasal drip. Review of Systems Constitutional: Constitutional: Denies fatigue, Denies fever(s) and Denies lethargy Eyes: Eyes: Denies blurry vision and Denies change in vision ENT: Reports as per HPI Cardiovascular: Cardiovascular: Denies chest pain Respiratory: Respiratory: Denies cough Endocrine: Endocrine: Denies fatigue Hematologic/Lymphatic: Hematologic/Lymphatic: Denies easy bleeding, Denies easy bruising and Denies lymphadenopathy Allergic/Immunologic: Allergic/Immunologic: Denies seasonal rhinorrhea [facility] Past Medical History Medical History (Updated 01/27/21 @ 18:15 by Clint Weeks MD) Chronic deep vein thrombosis (DVT) Linear echogenic filling defect in the right femoral vein, likely chronic thrombus on venous dopplers 11/2020. Chronic respiratory failure with hypoxia, on home oxygen therapy COPD with emphysema Chronic steroid therapy, 10 milligrams prednisone daily. Essential hypertension Gastroesophageal reflux disease Hiatal hernia Osteoarthritis Pneumonia (~2019) Surgical History Surgical History History of bilateral cataract extraction Family History Family History Father Acute myocardial infarction Congestive heart failure Lung cancer Mother Diabetes mellitus Dementia Sibling Diabetes mellitus Lung cancer Social History Social History Social History: Surrogate decision maker: Sloane Sellers, . Code status: Full code. Smoking packs per day: 0.5 Smoking cigarettes per day: 10.0 Years smoked: 47 Smoking pack-years: 23.50 Smoking status: Former smoker Tobacco type: cigarettes Second hand tobacco smoke exposure: Yes Smoking end date: 11/26/18 Alcohol intake: current Drinks per week: 1 Substance use: former Substance use type: crack/cocaine Other substance usage details: He smoked crack cocaine for 35 years but quit December 2018. Additional living arrangements comments: Patient lives with his in [place]. 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 Gender identity (if verbalized by the patient): Male Spiritual care concerns: No Meds Home Medications and Allergies Home Medications Medication Instructions Recorded Confirmed Type calcium carbonate-vitamin D3 1 tablet PO DAILY 07/06/20 01/26/21 History [Oyster Shell Calcium-Vit D3] omeprazole 20 mg PO DAILY 07/06/20 01/26/21 History Mucinex DM 1 tab PO Q12HR #20 tablet 07/14/20 01/26/21 Rx albuterol sulfate 2.5 mg INHALATION DAILY PRN #90 ml 09/27/20 01/26/21 Rx prednisone 10 mg tablet 10 mg PO DAILY #30 tablet 09/27/20 01/26/21 Rx fluticasone propionate 50 1 spray INTRANASAL BID PRN #15.8 ml 11/15/20 01/26/21 Rx mcg/actuation nasal spray,suspension alprazolam 0.5 mg tablet 0.5 mg PO TID PRN #60 tablet 12/07/20 01/26/21 Rx tamsulosin 0.4 mg capsule 0.4 mg PO DAILY #90 c
[2021-01-27] MEDS: IPRATROPIUM BR 0.02% INH SOLN 0.5 MG/2.5 ML VIAL INHALATION (20:01)
[2021-01-27] MEDS: ALPRAZolam (*CRX) 0.5 MG TABLET PO (20:17)
[2021-01-27] MEDS: MELATONIN 5 MG TABLET 10 MG PO (20:17)
[2021-01-28] VITALS (15 sets, daily range): BP systolic 117–137; BP diastolic 77–89; PULSE 80–113; RESP 14–20; TEMP 36.1–37.3; O2SAT 96–99
[2021-01-28] MEDS: HYDROcodone/acetaminophen (*CRX) 5-325 MG TABLET 1 TAB PO ×4 (03:12→22:13)
[2021-01-28] MEDS: methylPREDNISolone SOD SUCC 125 MG VIAL 60 MG IV PUSH ×3 (05:53→22:11)
[2021-01-28] MEDS: ONDANSETRON INJ 4 MG/2 ML VIAL IV PUSH ×3 (05:55→18:06)
--- NOTE | 2021-01-28 07:08 | WPDANESPN ---
Anes - Prog Note Post-Op Date/Time: 01/28/21 07:08 Cardiovascular status: normal Respiratory status: normal (severe COPD at baseline. ENT consulted for nasal congestion. ) Airway patency: baseline Mental status: baseline Post-Op hydration status: normal Vital Signs: Last Vital Signs Temp 36.1 C L 01/28/21 03:13 Pulse 88 01/28/21 06:00 Resp 18 01/28/21 03:13 BP 119/79 01/28/21 03:13 Pulse Ox 96 01/28/21 03:54 Pain Score (VAS): 0 I/O: Intake & Output 01/27/21 01/27/21 01/28/21 15:59 23:59 07:59 Intake Total 100 500 Output Total 300 700 400 Balance -200 -700 100 Laboratory Tests 01/27/21 04:45 01/27/21 04:45 Post-procedural complaints: none Patient Feedback: Patient satisfied with anesthetic care.
[2021-01-28] MEDS: FAMOTIDINE 20 MG TABLET PO ×2 (08:23→22:11)
[2021-01-28] MEDS: ALPRAZolam (*CRX) 0.5 MG TABLET PO ×3 (08:24→22:13)
[2021-01-28] MEDS: NEOMYCIN/POLYMYXIN/BACITRACIN OINTMENT 15 GM TUBE 1 APPLIC XX ×2 (08:24→16:41)
[2021-01-28] MEDS: SALINE 0.65% NAS SOLN 44 ML BTL 1 SPRAY NASAL (08:25)
[2021-01-28] MEDS: TAMSULOSIN HCL 0.4 MG CAPSULE PO (08:26)
[2021-01-28] MEDS: predniSONE 10 MG TABLET PO (08:26)
[2021-01-28] MEDS: busPIRone HCL 5 MG TABLET PO (08:26)
[2021-01-28] MEDS: ROFLUMILAST 500 MCG TABLET PO (08:26)
[2021-01-28] MEDS: guaiFENesin 600 MG/DEXTROMETHORPHAN 30 MG SR TAB 12 HR 1 TAB PO ×2 (08:26→22:11)
[2021-01-28] MEDS: FLUTICASONE PROPIONATE 0.05% NA SPR 16 GM BTL (*BKC) 1 SPRAY NASAL (08:26)
[2021-01-28] MEDS: PANTOPRAZOLE SOD SESQUIHYDRATE 20 MG TAB PO (08:27)
[2021-01-28] MEDS: terbinafine HCL 250 MG TABLET PO (08:27)
[2021-01-28] MEDS: LORATADINE 10 MG TABLET PO (08:27)
[2021-01-28] MEDS: BUDESONIDE RESPULE NEB 0.5 MG/2 ML AMP INHALATION ×2 (08:36→19:26)
--- NOTE | 2021-01-28 14:07 | PC.NURSE ---
This patient, Bentley Mesa, was received from IMU on 01/28/21 at 1408. Patient/family oriented to unit policies and routines. GORDON Encarnacion took report from GORDON Velásquez.
--- NOTE | 2021-01-28 14:10 | PC.NURSE ---
This patient, Bentley Mesa, was transferred to [facility] on 01/28/21 at 1400. Personal belongings sent with patient. Report given to Therese LEYVA. Appropriate documentation sent with patient.
[2021-01-28] MEDS: ALBUTEROL SULFATE NEB 2.5 MG/3 ML INH INHALATION (16:02)
[2021-01-28] MEDS: IPRATROPIUM BR 0.02% INH SOLN 0.5 MG/2.5 ML VIAL INHALATION (16:02)
--- NOTE | 2021-01-28 16:32 | PC.NURSE ---
patient has home inhaler at bedside. I educated the patient on not taking home medications. I notified him that we have to scan and give him all of his medications so we know what he is taking. He stated that he will not use the medication, but refused to send the medication home with his or lock it in the closet. He stated that he never keeps it far from him in case of an emergency. I notified him that we could get his rescue inhaler ordered so that we can scan it for him when he needs to use it. The patient still refused to let nursing keep his inhaler.
[2021-01-28] MEDS: MELATONIN 5 MG TABLET 10 MG PO (22:12)
--- NOTE | 2021-01-28 23:28 | PCRCNOTE ---
PT said he is sending trilogy home with his he's leaving tomorrow and doesn't want to wear it tonight.
[2021-01-29] MEDS: methylPREDNISolone SOD SUCC 125 MG VIAL 60 MG IV PUSH (06:02)
[2021-01-29 06:55] VITALS: BP 126/75; RESP 16; TEMP 36.3; O2SAT 98
[2021-01-29 08:19] VITALS: O2SAT 95
[2021-01-29] MEDS: SALINE 0.65% NAS SOLN 44 ML BTL 1 SPRAY NASAL (08:22)
[2021-01-29] MEDS: PANTOPRAZOLE SOD SESQUIHYDRATE 20 MG TAB PO (08:22)
[2021-01-29] MEDS: predniSONE 10 MG TABLET PO (08:22)
[2021-01-29] MEDS: FAMOTIDINE 20 MG TABLET PO (08:22)
[2021-01-29] MEDS: NEOMYCIN/POLYMYXIN/BACITRACIN OINTMENT 15 GM TUBE 1 APPLIC XX (08:22)
[2021-01-29] MEDS: terbinafine HCL 250 MG TABLET PO (08:22)
[2021-01-29] MEDS: busPIRone HCL 5 MG TABLET PO (08:22)
[2021-01-29] MEDS: ROFLUMILAST 500 MCG TABLET PO (08:22)
[2021-01-29] MEDS: TAMSULOSIN HCL 0.4 MG CAPSULE PO (08:22)
[2021-01-29] MEDS: LORATADINE 10 MG TABLET PO (08:22)
[2021-01-29] MEDS: guaiFENesin 600 MG/DEXTROMETHORPHAN 30 MG SR TAB 12 HR 1 TAB PO (08:22)
[2021-01-29] MEDS: BUDESONIDE RESPULE NEB 0.5 MG/2 ML AMP INHALATION (08:55)
[2021-01-29 08:57] VITALS: PULSE 101; RESP 16
[2021-01-29 08:58] VITALS: O2SAT 95
[2021-01-29 09:07] VITALS: PULSE 99; RESP 18
--- NOTE | 2021-01-29 12:00 | WPDGIPROGNO ---
Subjective Date/time seen: 01/29/21 12:00 Reason for follow-up GERD. Patient continues to have some mild regurgitation. He gets a build-up mucus and regurgitates food. He has a globus type feeling in the throat. Hematemesis, dysphagia, odynophagia and abdominal pain or denied. General: very pleasant patient in no acute distress. HEENT: Head was normocephalic sclerae is clear mouth without masses neck was supple. Heart: Rate rhythm regular without S3 or S4. Lungs: CTA. Abdomen: Soft with no guarding or rigidity. Bowel sounds were active. Neurologic: Cranial nerves 2 through 12 intact. No focal defects. No clonus. Musculoskeletal system: Revealed no joint tenderness or swelling no muscle atrophy. Extremities: Reveal no significant edema. Skin: Warm and dry with normal turgor. Mental status: intact. Patient is alert and oriented. Impression: Continues with regurgitation. This is secondary to underlying GERD. COPD. Chronic respiratory failure. DVT. HTN. Recommendation: Continue symptomatic treatment. PPI b.i.d.. Avoid NSAIDs. May consider esophagram with upper GI. Dr. Ruiz returns tomorrow. Review of Systems Review of Systems: All systems reviewed & are unremarkable except as noted in HPI and below Objective Data Vital Signs Vital Signs: Vital Signs - 24 hr 01/28/21 15:32 01/28/21 16:04 01/28/21 19:30 Temperature 37.3 C Pulse Rate 104 H 87 103 H Respiratory Rate 16 18 18 Blood Pressure 137/89 Pulse Oximetry 99 96 01/28/21 19:35 01/28/21 20:00 01/28/21 21:06 Temperature 36.2 C L Pulse Rate 113 H 100 Respiratory Rate 20 18 Blood Pressure 122/82 Pulse Oximetry 97 97 01/29/21 06:55 01/29/21 08:19 01/29/21 08:57 Temperature 36.3 C L Pulse Rate 101 H Respiratory Rate 16 16 Blood Pressure 126/75 Pulse Oximetry 98 95 01/29/21 08:58 01/29/21 09:07 Temperature Pulse Rate 99 Respiratory Rate 18 Blood Pressure Pulse Oximetry 95 Intake/Output Intake/Output: Intake & Output 01/26/21 01/27/21 01/28/21 01/29/21 23:59 23:59 23:59 23:59 Intake Total 300 1270 380 Output Total 400 1000 1150 450 Balance -400 -700 120 -70 Meds/Results Medications: Active Medications Generic Name Dose Route Start Last Admin Trade Name Freq PRN Reason Stop Dose Admin Hydrocodone Bitart/Acetaminophen 1 tab 01/26/21 19:58 01/28/21 22:13 Hydrocodone/Acetaminophen (*Crx) 5-325 Mg Tablet PO 1 tab Q4-6H PRN Administration Pain Albuterol 2.5 mg 01/26/21 19:58 01/28/21 16:02 Albuterol Sulfate Neb 2.5 Mg/3 Ml Inh INHALATION 2.5 mg DAILY PRN Administration shortness of breath or wheezing Alprazolam 0.5 mg 01/26/21 19:58 01/28/21 22:13 Alprazolam (*Crx) 0.5 Mg Tablet PO 0.5 mg TID PRN Administration anxiety Budesonide 0.5 mg 01/27/21 08:00 01/29/21 08:55 Budesonide Respule Neb 0.5 Mg/2 Ml Amp INHALATION 0.5 mg Q12HRT DAVIAN Administration Buspirone HCl 5 mg 01/27/21 09:00 01/29/21 08:22 Buspirone Hcl 5 Mg Tablet PO 5 mg DAILY DAVIAN Administration Calcium Carbonate 500 mg 01/27/21 09:00 01/29/21 08:22 Calcium/Vitamin D 500 Mg Tablet PO 500 mg DAILY DAVIAN Administration Famotidine 20 mg 01/27/21 09:00 01/29/21 08:22 Famotidine 20 Mg Tablet PO 20 mg Q12HR DAVIAN Administration Fluticasone Propionate 1 spray 01/26/21 19:58 01/28/21 08:26 Fluticasone Propionate 0.05% Na Spr 16 Gm Btl (*Bkc) NASAL 1 spray BID PRN Administration nasal congestion Guaifenesin/Dextromethorphan 1 tab 01/26/21 21:00 01/29/21 08:22 Guaifenesin 600 Mg/Dextromethorphan 30 Mg Sr Tab 12 Hr PO 1 tab Q12HR DAVIAN Administration Ipratropium [place] 0.5 mg 01/27/21 08:26 01/28/21 16:02 Ipratropium Br 0.02% Inh Soln 0.5 Mg/2.5 Ml Vial INHALATION 0.5 mg Q6HRT PRN Administration shortness of breath or wheezing Loratadine 10 mg 01/27/21 09:00 01/29/21 08:22 Loratadine 10 Mg Table
--- NOTE | 2021-01-29 13:26 | PM.DS ---
DS: Admitting Diagnosis Admitting Diagnosis Admitting Diagnosis: Chief Complaint: Chest pain, shortness of breath, and postnasal drip. DS: Discharge Diagnosis Discharge Diagnosis (1) Chest pain: Code(s): R07.9 - Chest pain, unspecified Status: Acute Assessment and Plan: Atypical chest pain, likely musculoskeletal in etiology however he reports intermittent left-sided chest pain which he describes as sharp and shooting. Given venous Doppler ultrasounds in November 2020 showing chronic femoral DVT I think we need to rule out pulmonary embolism. He has ruled out for acute coronary syndrome by serial troponins. Monitor on telemetry overnight. 01/27/21 14:13 Patient is 61-year-old male with history of severe emphysema presented emergency department with a complaint chest pain and shortness of breath, in terms of chest pain 3 sets of cardiac enzymes are negative and there is no acute changes on EKG VT is ruled out, patient does complaint shortness of breath and has history of chronic DVT to further evaluate patient had CTA of the chest which did not show any pulmonary emboli but again shows severe emphysema with scar, patient continue to complain cough and shortness of breath most likely patient has exacerbation of COPD will start the patient on Solu-Medrol continue updraft and add azithromycin to cover for atypical, patient also complains of nasal congestion and nose bleeding patient states on and off he gets nosebleeds has a difficulty at time with breathing will have ENT evaluate the patient and further recommendation to follow (2) Shortness of breath: Code(s): R06.02 - Shortness of breath Status: Acute Assessment and Plan: He has baseline dyspnea due to his COPD/emphysema although it sounds as though he has been feeling increasingly short of breath recently. While he has attributed this to mucus in his throat from postnasal drip, we need to rule out pulmonary embolism as above. He is currently at his baseline oxygen requirement. (3) Dysphagia: Code(s): R13.10 - Dysphagia, unspecified Status: Acute Assessment and Plan: Status post dilatation on 01/04/2021. Patient once again complains of feeling as though food is getting stuck in his lower esophagus. Dr. Ruiz has been consulted and the patient will be NPO for possible endoscopy tomorrow. He may take meds with sips of water as he apparently he has been tolerating this at home. (4) Chronic respiratory failure with hypoxia, on home oxygen therapy: Code(s): J96.11 - Chronic respiratory failure with hypoxia; Z99.81 - Dependence on supplemental oxygen Status: Chronic Assessment and Plan: He is at his baseline oxygen requirement. (5) COPD with emphysema: Qualifiers: Emphysema type: unspecified Qualified Code(s): J43.9 - Emphysema, unspecified Code(s): J43.9 - Emphysema, unspecified Status: Chronic Assessment and Plan: No acute issues. Continue home respiratory regimen. (6) Essential hypertension: Code(s): I10 - Essential (primary) hypertension Status: Acute Assessment and Plan: Blood pressures were reviewed and they have been running in the 140s to 150 systolic. I do not see that he is on any antihypertensives at this time. For now we will monitor his blood pressures closely and consider initiation of such. DS: Summary Hospital Course Reason for hospitalization: Chief Complaint: Chest pain, shortness of breath, and postnasal drip. Narrative: This is a 61-year-old male with chronic respiratory failure on home oxygen, COPD, hypertension, chronic right femoral DVT not on anticoagulation at this time, and seasonal allergies who presented to the emergency department earlier today from home with several complaints including chest pain, shortness of breath, and postnasal drip. The patient is known to myself and the hospitalist service with a recent admiss
[2021-01-29] MEDS: ALPRAZolam (*CRX) 0.5 MG TABLET PO (14:00)
[2021-01-29] MEDS: HYDROcodone/acetaminophen (*CRX) 5-325 MG TABLET 1 TAB PO (14:00)
--- NOTE | 2021-02-23 12:43 | PM.IMPN ---
Progress Note: A&P Assessment and Plan (1) Chest pain: Code(s): R07.9 - Chest pain, unspecified Status: Acute Assessment and Plan: Atypical chest pain, likely musculoskeletal in etiology however he reports intermittent left-sided chest pain which he describes as sharp and shooting. Given venous Doppler ultrasounds in November 2020 showing chronic femoral DVT I think we need to rule out pulmonary embolism. He has ruled out for acute coronary syndrome by serial troponins. Monitor on telemetry overnight. 01/28/2101/27 Patient is 61-year-old male with history of severe emphysema presented emergency department with a complaint chest pain and shortness of breath, in terms of chest pain 3 sets of cardiac enzymes are negative and there is no acute changes on EKG SD is ruled out, patient does complaint shortness of breath and has history of chronic DVT to further evaluate patient had CTA of the chest which did not show any pulmonary emboli but again shows severe emphysema with scar, patient continue to complain cough and shortness of breath most likely patient has exacerbation of COPD will start the patient on Solu-Medrol continue updraft and add azithromycin to cover for atypical, patient also complains of nasal congestion and nose bleeding patient states on and off he gets nosebleeds has a difficulty at time with breathing will have ENT evaluate the patient and further recommendation to follow 01/28 Patient will c/o nausea and vomiting and persistent post nasal drip with extra secretion resulting gag relax and causing vomiting, pateint will give patient gauifenesin and flonase, will discuss with GI and further recommendation to follow. (2) Shortness of breath: Code(s): R06.02 - Shortness of breath Status: Acute Assessment and Plan: He has baseline dyspnea due to his COPD/emphysema although it sounds as though he has been feeling increasingly short of breath recently. While he has attributed this to mucus in his throat from postnasal drip, we need to rule out pulmonary embolism as above. He is currently at his baseline oxygen requirement. (3) Dysphagia: Code(s): R13.10 - Dysphagia, unspecified Status: Acute Assessment and Plan: Status post dilatation on 01/04/2021. Patient once again complains of feeling as though food is getting stuck in his lower esophagus. Dr. Ruiz has been consulted and the patient will be NPO for possible endoscopy tomorrow. He may take meds with sips of water as he apparently he has been tolerating this at home. (4) Chronic respiratory failure with hypoxia, on home oxygen therapy: Code(s): J96.11 - Chronic respiratory failure with hypoxia; Z99.81 - Dependence on supplemental oxygen Status: Chronic Assessment and Plan: He is at his baseline oxygen requirement. (5) COPD with emphysema: Qualifiers: Emphysema type: unspecified Qualified Code(s): J43.9 - Emphysema, unspecified Code(s): J43.9 - Emphysema, unspecified Status: Chronic Assessment and Plan: No acute issues. Continue home respiratory regimen. (6) Essential hypertension: Code(s): I10 - Essential (primary) hypertension Status: Acute Assessment and Plan: Blood pressures were reviewed and they have been running in the 140s to 150 systolic. I do not see that he is on any antihypertensives at this time. For now we will monitor his blood pressures closely and consider initiation of such. Subjective Date/time seen: 01/28/2101/27 Patient is 61-year-old male with history of severe emphysema presented emergency department with a complaint chest pain and shortness of breath, in terms of chest pain 3 sets of cardiac enzymes are negative and there is no acute changes on EKG SD is ruled out, patient does complaint shortness of breath and has history of chronic DVT to further evaluate patient had CTA of the chest which did not show
== END 2021-01-29 14:24 | disposition home or self-care (01) | DRG 392 ==
LOC: ANHED 15:01 → ANHIMU 15:28 → ANH2MED 01-28 14:01
PROVIDERS: Internal Medicine Gastroenterology; Admitting Provider Family Medicine; Emergency Provider General Practice; PCP Emergency Medicine; Visit Provider Family Medicine
PROC: 0DJ08ZZ Inspection of Upper Intestinal Tract, Via Natural or Artificial Opening Endoscopic (ICD-10-PCS; CPT 43235; principal; 2021-01-27 14:30)
DX: K22.2 Esophageal obstruction (principal); J96.11 Chronic respiratory failure with hypoxia; I82.511 Chronic embolism and thrombosis of right femoral vein; F41.9 Anxiety disorder, unspecified; R13.10 Dysphagia, unspecified; I10 Essential (primary) hypertension; K21.9 Gastro-esophageal reflux disease without esophagitis; J44.9 Chronic obstructive pulmonary disease, unspecified; K44.9 Diaphragmatic hernia without obstruction or gangrene; R09.82 Postnasal drip
CPT/HCPCS: 36415; 36600; 71046; 71275; 80048; 80053; 82375; 82805; 83050; 84484; 85025; 85380; 85610; 85730; 93005; 94640; 96374; 99285; A9270; C1726; G0378; J2405; J2704; J2930; J7030; J7120; J7512; Q9967

== ENCOUNTER → 2021-02-11 01:37 | Outpatient (CLI) | payer MEDICARE, MEDICAID, SELFPAY ==
[2021-02-11 19:16] LABS: SARS-CoV-2 RNA PCR Negative
== END ==
PROVIDERS: PCP Emergency Medicine; Visit Provider Internal Medicine Gastroenterology
DX: Z01.812 Encounter for preprocedural laboratory examination (principal); Z20.822 Contact with and (suspected) exposure to COVID-19
CPT/HCPCS: C9803; U0003; U0005

== ENCOUNTER 2021-02-15 00:46 | Day surgery (SDC) | payer MEDICARE, MEDICAID, SELFPAY ==
[2021-02-02 15:49] VITALS: BMI 35.8
[2021-02-15 10:20] VITALS: BP 93/50; PULSE 93; RESP 20; TEMP 36.6; O2SAT 99
[2021-02-15] MEDS: LACTATED RINGERS 1,000 ML 150 ML IV CONT (10:29)
--- NOTE | 2021-02-15 10:35 | WPDANESEPPF ---
Anes - Initial Pre Proc Eval Procedure: Operation Date: 02/15/21 11:15 Proposed Procedures p Esophagogastroduodenoscopy & Screening Colonoscopy - Pernell Martinez MD Date/Time: 02/15/21 10:35 Surgeon: Pernell Martinez MD Pre Op Diagnosis: neoplasm screening, dysphagia,schatzki's ring Patient Data Age: 61 Gender: M Height: 5 ft 9 in Weight: 112.2 kg Last Vital Signs Temp 36.6 C 02/15/21 10:20 Pulse 93 02/15/21 10:20 Resp 20 02/15/21 10:20 BP 93/50 L 02/15/21 10:20 Pulse Ox 99 02/15/21 10:20 Allergies Allergy/AdvReac Type Severity Reaction Status Date / Time oxycodone Allergy Mild Itching Verified 02/15/21 10:19 Home Medications Medication Instructions Recorded Confirmed Type calcium carbonate-vitamin D3 1 tablet PO DAILY 07/06/20 02/15/21 History [Oyster Shell Calcium-Vit D3] omeprazole 20 mg PO DAILY 07/06/20 02/15/21 History albuterol sulfate 2.5 mg INHALATION DAILY PRN #90 ml 09/27/20 02/15/21 Rx prednisone 10 mg tablet 10 mg PO DAILY #30 tablet 09/27/20 02/15/21 Rx fluticasone propionate 50 1 spray INTRANASAL BID PRN #15.8 ml 11/15/20 02/15/21 Rx mcg/actuation nasal spray,suspension tamsulosin 0.4 mg capsule 0.4 mg PO DAILY #90 cap 12/19/20 02/15/21 Rx famotidine [Pepcid] 20 mg PO BID #14 tablet 12/31/20 02/15/21 Rx glycopyrrolate 25 mcg/mL solution 1 ml INHALATION BID #60 ml 01/02/21 02/15/21 Rx for nebulization-nebulizer accessor. ipratropium bromide 0.02 % 2.5 ml INHALATION Q6H PRN #300 ml 01/02/21 02/15/21 Rx solution for inhalation Brovana 2 ml INHALATION BID 01/03/21 02/15/21 History hydrocodone-acetaminophen 5 - 325 tablet PO Q4-6H PRN 01/03/21 02/15/21 History promethazine-DM 5 ml PO Q4H PRN 01/03/21 02/06/21 History ondansetron HCl [Zofran] 4 mg PO Q8H PRN #90 tablet 01/05/21 02/02/21 Rx buspirone 5 mg tablet 5 mg PO DAILY #90 tablet 01/06/21 02/15/21 Rx miconazole nitrate 1 applic TOPICAL BID 01/26/21 02/15/21 History terbinafine HCl 250 mg PO DAILY 01/26/21 02/15/21 History melatonin 10 mg PO HS #30 tablet 01/29/21 02/15/21 Rx mkdauszj-lqtzfxmvdJi-hpsbnsloB 1 applic NOT APPLICABLE BID #30 g 01/29/21 02/15/21 Rx [Triple Antibiotic] pantoprazole 40 mg PO Q12HR #60 tablet 01/29/21 02/15/21 Rx prednisone 50 mg PO DAILY #20 tablet 01/29/21 02/15/21 Rx sodium chloride [Saline Mist] 1 spray INTRANASAL Q12HR PRN #10 ml 01/29/21 02/15/21 Rx alprazolam [Xanax] 0.5 mg PO TID PRN 02/02/21 02/15/21 History aspirin [Adult Low Dose Aspirin] 81 mg PO DAILY 02/02/21 02/15/21 History budesonide [Pulmicort] 0.5 mg INHALATION BID 02/02/21 02/15/21 History loratadine [Claritin] 10 mg PO QAM 02/02/21 02/15/21 History roflumilast 500 mcg tablet 500 mcg PO DAILY #30 tablet 02/08/21 02/15/21 Rx acetaminophen 650 mg PO Q6H PRN 02/15/21 02/15/21 History Patient hx anesthesia problems: none Family hx anesthesia problems: none PMFSH Past Medical History Medical History Chronic deep vein thrombosis (DVT) Linear echogenic filling defect in the right femoral vein, likely chronic thrombus on venous dopplers 11/2020. Chronic respiratory failure with hypoxia, on home oxygen therapy COPD with emphysema Chronic steroid therapy, 10 milligrams prednisone daily. Essential hypertension Gastroesophageal reflux disease Hiatal hernia Osteoarthritis Pneumonia (~2019) Surgical History Surgical History History of bilateral cataract extraction Family History Family History Father Acute myocardial infarction Congestive heart failure Lung cancer Mother Diabetes mellitus Dementia Sibling Diabetes mellitus Lung cancer Social History Social History Social History: Surrogate decision maker: Sloane Sellers, . Code status: Full
--- NOTE | 2021-02-15 10:57 | WPDHPUPDATE1 ---
History and Physical Update Update Date/Time: 02/15/21 10:57 History and Physical has been reviewed, including an updated exam of the patient. There are NO changes in the patient's condition. Risks, benefits, and alternatives have been discussed and questions answered. Patient agrees to proceed with procedure.
[2021-02-15 11:18] VITALS: BP 135/77; PULSE 120; RESP 25; O2SAT 97
[2021-02-15 11:28] VITALS: BP 128/78; PULSE 109; RESP 22; O2SAT 97
== END 2021-02-15 12:00 | disposition home or self-care (01) ==
PROVIDERS: PCP Emergency Medicine; Visit Provider Internal Medicine Gastroenterology
PROC: 0DJ08ZZ Inspection of Upper Intestinal Tract, Via Natural or Artificial Opening Endoscopic (ICD-10-PCS; CPT 43235; principal; 2021-02-15 11:15)
DX: Z12.11 Encounter for screening for malignant neoplasm of colon (principal); K57.30 Diverticulosis of large intestine without perforation or abscess without bleeding; K64.8 Other hemorrhoids; K21.9 Gastro-esophageal reflux disease without esophagitis; K44.9 Diaphragmatic hernia without obstruction or gangrene; R13.10 Dysphagia, unspecified; K22.2 Esophageal obstruction; Z79.51 Long term (current) use of inhaled steroids; Z79.82 Long term (current) use of aspirin; Z86.718 Personal history of other venous thrombosis and embolism; J44.9 Chronic obstructive pulmonary disease, unspecified; I10 Essential (primary) hypertension; M19.90 Unspecified osteoarthritis, unspecified site; J96.11 Chronic respiratory failure with hypoxia; Z99.81 Dependence on supplemental oxygen; Z87.891 Personal history of nicotine dependence; E66.9 Obesity, unspecified; Z68.36 Body mass index [BMI] 36.0-36.9, adult
CPT/HCPCS: G0121; J2704; J7120

== ENCOUNTER 2021-03-03 09:30 | Outpatient (RCR) | payer MEDICARE, MEDICAID, SELFPAY ==
[2020-11-03 12:44] VITALS: BP 132/68; PULSE 73; RESP 20; TEMP 36.3; O2SAT 98
[2020-11-03 12:58] VITALS: PULSE 73
--- NOTE | 2020-11-22 10:55 | PCCPR ---
Absent Absent due to hospitalization Bentley CEDILLO he has been hospitalized due to a blood clot in his leg. He is hopeful to resume on Saturday 11/25 and is aware we need a release for him to return.
--- NOTE | 2020-11-23 12:18 | PCCPR ---
Received pts ok to return, called pt to let him know.
--- NOTE | 2020-11-28 10:33 | PCCPR ---
Addendum entered by Niurka Alexis RN 12/12/20 16:51: Bentley called today to update us. He should be returning on Saturday 12/16 with new transportation. Original Note: Absent Bentley states he has been having challenges with his transportation. He asked if we could place him on hold until 12/12/20 he is due to obtain an new insurance and better transportation options.
--- NOTE | 2021-01-03 12:21 | PCCPR ---
Unable to make it to exercise class, diverted to the ER Spoke with Bentley's Sloane states they ended up in the ER due to his nausea and inability to keep food down.He has recently been diagnosed with a hiatal hernia. states she will keep us informed. Let her know we will need a release for him to resume rehab.
--- NOTE | 2021-01-09 09:42 | PCCPR ---
Bentley recently out for illness. Bentley needs a release to return, has an appointment with Dr. Kyle January 17 and will obtain a release at that time.
--- NOTE | 2021-01-20 09:53 | PCCPR ---
SPOKE WITH SATHYA TODAY, HE HAS A RELEASE TO RETURN ON 01/24 BUT WILL BE MOVING THAT DAY SO HE WILL RETURN ON 01/27.
--- NOTE | 2021-01-26 13:58 | PCCPR ---
[facility] called today and said that he was back in the emergency room because he was having trouble swallowing, she stated that he did not have a diagnosis yet but are running tests.
== END 2021-03-03 23:59 | disposition home or self-care (01) ==
LOC: ANHCPREHAB 09:30
PROVIDERS: PCP Emergency Medicine; Visit Provider Internal Medicine Critical Care Medicine
DX: J44.9 Chronic obstructive pulmonary disease, unspecified (principal)
CPT/HCPCS: 97150; G0424

== ENCOUNTER 2021-03-17 09:30 | Outpatient (RCR) | payer MEDICARE, SELFPAY ==
[2021-03-04 00:04] VITALS: BP 132/68; PULSE 73; RESP 20; TEMP 36.3; O2SAT 98
== END 2021-03-17 16:30 | disposition home or self-care (01) ==
LOC: ANHCPREHAB 09:30
PROVIDERS: PCP Emergency Medicine; Visit Provider Internal Medicine Critical Care Medicine
DX: J44.9 Chronic obstructive pulmonary disease, unspecified (principal)
CPT/HCPCS: 97150; G0424

== ENCOUNTER 2021-06-14 10:26 | Inpatient (IN) | payer MEDICARE, MEDICAID, SELFPAY ==
[2021-06-14] VITALS (16 sets, daily range): BP systolic 117–162; BP diastolic 79–118; PULSE 95–152; RESP 15–26; TEMP 36.1–37.4; O2SAT 93–98; BMI 36.8
--- NOTE | ~2021-06-14 | XR_ITS ---
EXAMINATION: XR chest 2V DATE: 06/14/2021 11:02 INDICATION: Shortness of breath and productive cough TECHNIQUE: PA and lateral views of the chest are obtained. COMPARISON: 01/26/2021 FINDINGS: Tiny metallic densities now project in the right suprahilar region. There is opacification and volume loss in the right lung apex. There is no pleural effusion or pneumothorax. The cardiomedia stinal silhouette is normal. There are bridging osteophytes at multiple levels in the spine, consiste nt with diffuse idiopathic skeletal hyperostosis (DISH). IMPRESSION: 1. Opacification and volume loss in the right lung apex and right suprahilar metallic densities, poss ibly sequela of interval surgical change. Reviewed, dictated and finalized at location A. IMPRESSION: 1. Opacification and volume loss in the right lung apex and right suprahilar me tallic densities, possibly sequela of interval surgical change.
--- NOTE | ~2021-06-14 | XR_ITS ---
EXAMINATION: XR chest 1V portable EXAM DATE: 06/16/2021 15:41 INDICATION: COVID, SOB, hx of COPD, [place] valve replacement 04/2021 . TECHNIQUE: Frontal and lateral projections of the chest obtained and reviewed. Comparison is made to prior examination from 06/14/2021. Correlation was made with chest CT 06/14/2021. FINDINGS: Patient is rotated to the right. No confluent consolidation, pneumothorax or pleural effus ion suspected. There is right upper lobe collapse with endobronchial right upper lobe valves. The car diomediastinal silhouette is prominent but magnified on this AP technique. IMPRESSION: 1. Right upper lobe atelectasis unchanged. 2. Otherwise clear lungs. Reviewed, dictated and finalized at location B.
--- NOTE | ~2021-06-14 | CT_ITS ---
EXAMINATION: CT diagnostic chest w con DATE: 06/14/2021 14:48 INDICATION: Shortness of breath TECHNIQUE: Transaxial computed tomographic images of the chest were obtained after the administration of 75 cc of Omnipaque 350 intravenous contrast. The dose-length product (DLP) was 563.60 mGy-cm. Ite rative reconstruction was used. COMPARISON: 01/27/2021 FINDINGS: There are endobronchial valves in the proximal bronchi of the right upper lobe which result in complete atelectasis of the right upper lobe. There is minimal chronic atelectasis versus scarrin g in the lower lobes. No acute superimposed opacities are identified. There is no pleural effusion or pneumothorax. No pathologically enlarged thoracic lymph nodes are identified. The heart size is norm al. There is a small sliding hiatal hernia. There are bridging osteophytes at multiple levels in the spine, consistent with diffuse idiopathic skeletal hyperostosis (DISH). IMPRESSION: 1. No acute cardiopulmonary abnormality. 2. Interval insertion of endobronchial valves resulting in complete atelectasis of the right upper lo be. Reviewed, dictated and finalized at location A. IMPRESSION: 1. No acute cardiopulmonary abnormality. 2. Interval insertion of endobronchial valves resulting in complete atelectasis of the right upper lobe.
--- NOTE | 2021-06-14 10:36 | ECG_ITS ---
Measurements Intervals [place] Rate: 142 P: 32 NV: 130 QRS: 9 QRSD: 85 T: 58 QT: 277 QTc: 426 Interpretive Statements SINUS TACHYCARDIA ABNORMAL ECG Electronically Signed On 06-14-2021 11:16:53 CDT by Jeremy Ibarra D.O.
[2021-06-14 11:04] LABS: Basophils Percent Auto 0.3 % (0.2-1.2); Hematocrit 46.1 % (42.0-52.0); Hemoglobin 14.5 g/dL (14.0-18.0); Immature Granulocyte Absolute 0.06 K/mm3 (0.00-0.031); Immature Granulocyte Percent A 0.6 % (0-0.5); Lymphocytes Absolute Auto 0.68 K/mm3 (0.9-3.2); Mean Corpuscular HGB Conc 31.5 g/dl (32-36); Mean Corpuscular Hemoglobin 29.2 pg (26-34); Mean Corpuscular Volume 92.8 fl (80-100); Mean Platelet Volume 10.6 fl (7.4-10.4); Monocytes Absolute Auto 0.7 K/mm3 (0.1-0.6); Neutrophils Absolute Auto 8.3 K/mm3 (1.3-6.7); Neutrophils Percent Auto 85.1 % (45.5-73.1); Platelet Count Result 220 k/mm3 (150-375); Red Blood Count 4.97 M/mm3 (4.6-6.20); Red Cell Distribution Width 15.3 % (11.5-14.5); White Blood Count 9.8 K/mm3 (4.5-10.0)
[2021-06-14 11:21] LABS: Anion Gap 15 mmol/L (8-16); Blood Urea Nitrogen 18 mg/dL (9-20); Calcium 9.6 mg/dL (8.4-10.2); Carbon Dioxide 24 mmol/L (22-30); Chloride 102 mmol/L (98-107); Estimated CRCL calculation 94 ml/min; Estimated Glomerular Filt Rate > 60; Glucose 109 mg/dL (65-110); Sodium 141 mmol/L (137-145)
--- NOTE | 2021-06-14 11:56 | ED.SOB ---
HPI - SOB/Dyspnea General Chief Complaint: Shortness of Breath/Dyspnea Stated Complaint: Cough/ Hx COPD,Emphysema Time Seen by Provider: 06/14/21 11:26 Source: patient and RN notes reviewed Mode of arrival: wheelchair Limitations: no limitations History of Present Illness HPI Narrative: This is a 61 year old male with history of chronic respiratory failure on 3 L NC , COPD who presents for evaluation of shortness of breath. He states he started feeling bad on Saturday after a rainstorm passed through. He reports severe cough, chest congestion, sinus drainage and burning pain in his chest. He also reports body aches and bilateral leg pain. He denies fever or chills. He received his COVID vaccination in November. His is being evaluated in ER For URI symptoms as well today. Related Data Home Medications Medication Instructions Recorded Confirmed calcium carbonate-vitamin D3 1 tablet PO DAILY 07/06/20 06/14/21 [Oyster Shell Calcium-Vit D3] omeprazole 20 mg PO DAILY 07/06/20 06/14/21 hydrocodone-acetaminophen 5 - 325 tablet PO Q4-6H PRN 01/03/21 06/14/21 aspirin [Adult Low Dose Aspirin] 81 mg PO DAILY 02/02/21 06/14/21 acetaminophen 650 mg PO Q6H PRN 02/15/21 06/14/21 Adult One Daily Multivitamin 1 tab-cap PO DAILY 06/14/21 06/14/21 magnesium oxide 400 mg PO DAILY 06/14/21 06/14/21 multivitamin with minerals [All 1 tablet PO DAILY 06/14/21 06/14/21 Purpose Multivitamin-Min] Allergies Allergy/AdvReac Type Severity Reaction Status Date / Time oxycodone Allergy Mild Itching Verified 06/14/21 11:39 Review of Systems Review of Systems: All systems reviewed & are unremarkable except as noted in HPI and below PMFSH Past Medical History Medical History (Updated 06/14/21 @ 21:19 by Lilibeth Ramsey MD) BPH (benign prostatic hyperplasia) Chronic deep vein thrombosis (DVT) Linear echogenic filling defect in the right femoral vein, likely chronic thrombus on venous dopplers 11/2020. Chronic respiratory failure with hypoxia, on home oxygen therapy COPD with emphysema Chronic steroid therapy, 10 milligrams prednisone daily. Gastroesophageal reflux disease Hiatal hernia Osteoarthritis Pneumonia (~2019) Surgical History Surgical History (Updated 06/14/21 @ 20:48 by Lorena Jackson NP) H/O colonoscopy History of bilateral cataract extraction History of lung surgery Family History Family History Father Acute myocardial infarction Congestive heart failure Lung cancer Mother Diabetes mellitus Dementia Sibling Diabetes mellitus Lung cancer Social History Social History (Updated 06/14/21 @ 20:49 by Lorena Jackson NP) Social History: Surrogate decision maker: Sloane Sellers, . Code status: Full code. The patient has 1 biological child a son whom he is estranged from. He has step children. Smoking packs per day: 0.5 Smoking cigarettes per day: 10.0 Years smoked: 48 Smoking pack-years: 24.00 Smoking status: Former smoker Tobacco type: cigarettes Second hand tobacco smoke exposure: Yes Smoking end date: 11/26/18 Additional smoking assessment comments: pt used to smoke cigarettes and crack cocaine for 38 years; quit 09/01 Alcohol intake: current Drinks per week: 2 Alcohol use details: Patient currently drinks 2 beers and a shot on the weekends Substance use: former Substance use type: crack/cocaine Other substance usage details: 38 years; stopped 3 years Additional living arrangements comments: Patient lives with his in [place]. 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 Gender identity (if verbalized by the patient): Male Spiritual care concerns: No Exam Const: General: alert and ill appearing Orientation/consciousness: patient oriented x3 Eyes: Pupils: Equal, ro
[2021-06-14] MEDS: SODIUM CHLORIDE 0.9% IV 1,000 ML 999 ML IV CONT (11:57)
[2021-06-14] MEDS: ALBUTEROL SULFATE (*SP) INHALER 1 PUFF (12:07)
[2021-06-14] MEDS: ALBUTEROL SULFATE (*SP) AEROSOL 1 PUFF 4 PUFF INHALATION ×2 (12:07→20:17)
[2021-06-14] MEDS: methylPREDNISolone SOD SUCC 125 MG VIAL IV PUSH (12:22)
[2021-06-14 12:38] LABS: Base Excess ABG 2.2 mEq/l (+/-2.0); Carboxyhemoglobin 1.2 % THb (0-2.0); Fractional Inspired Oxygen 32 %; HCO3 ABG 27.7 mEq/l (22.0-26.0); Methemoglobin ABG 0.4 %THb (0-1.5); Oxygen Content ABG 9.3 %vol (16.0-22.0); Oxyhemoglobin 45.2 % THb (90.0-100.0); PO2 FiO2 Ratio Arterial Blood 0.76 %; Reduced Hemoglobin 53.2 %THb (0-5.0); Total Hemoglobin 14.7 g/dL (12.0-18.0)
[2021-06-14 12:47] LABS: INR 0.9; Prothrombin Time 12.5 Seconds (11.1-14.7)
[2021-06-14 12:48] LABS: Partial Thromboplastin Time 29.6 SECONDS (22.3-36.8)
[2021-06-14 12:51] LABS: PO2 ABG 24.3 mmHg (80.0-100.0)
[2021-06-14 12:52] LABS: Alanine Aminotransferase 72 U/L (4-50); Albumin Level 4.6 g/dL (3.5-5.1); Alkaline Phosphatase 108 U/L (38-126); Aspartate Amino Transferase 70 U/L (17-59); Bilirubin,Total 0.8 mg/dL (0.2-1.3); Magnesium 2.1 mg/dL (1.6-2.3)
[2021-06-14 12:52] LABS: Device NASAL CANNULA; Modified Allen's Test Pass; Oxygen Saturation ABG 42.9 % (95.0-100.0); Site Drawn LEFT RADIAL; pH ABG 7.397 (7.350-7.450)
[2021-06-14 13:00] LABS: Troponin I < 0.012 ng/mL (0.000-0.034)
[2021-06-14 13:09] LABS: Lactic Acid Reflex 1.6 mmol/L (0.7-2.1)
[2021-06-14 13:56] LABS: D Dimer 0.27 ug/mL (<0.48)
[2021-06-14 14:02] LABS: NT Pro B Type Natriuretic Pept 34 pg/mL (5-100)
--- NOTE | 2021-06-14 14:10 | PC.NURSE ---
cough reduced with tussinex po
[2021-06-14 14:12] LABS: EDCOVIDSCREEN Positive (Negative)
--- NOTE | 2021-06-14 17:46 | ADMGEN ---
This patient, Bentley Mesa, was admitted to [facility] Surg Room 326-01. Patient/family oriented to hospital policies and general routines including ID bracelet, bed and alarms, visiting hours, pain management, procedures, bathroom and other care routines, personal items, smoking policy, room service/diet, and visiting hours. Information on how to activate the Rapid Response Team has been discussed. Patient/Family are encouraged to report perceived risks to care and to ask questions if they do not understand what they are told or what they should do.
--- NOTE | 2021-06-14 20:39 | PM.IMHP ---
H&P: HPI History of Present Illness Date/Time: 06/14/21 20:39 this is a 61-year-old patient who has a history of COPD. The patient did have a lung procedure recently and stated that he would go days without using his oxygen. However over over the weekend he became short of breath and started using his oxygen at 3 L per nasal cannula continuously. He also uses his nebulizer machine at home. He has been coughing and having body aches. Saturday after rain storm past 3 he started to cough and have chest congestion sinus drainage and burning in his chest. He had body aches as well. Patient has been fully vaccinated with the COVID vaccine since November. However today patient tested positive for rapid COVID test. Patient's lungs sound very decreased and his chest x-ray was read as opacification and volume loss in the right lung apex and right suprahilar metallic densities possibly sequela of interval is surgical change. However the patient states that that is what the procedure did for him. Chest CT was read as no acute cardiopulmonary abnormality. Interval insertion of endobronchial valves resulting in complete atelectasis of the right upper lobe. According to the ED physician the patient was wheezing and she decided to give him some Solu-Medrol. She also ordered convalescent blood for the patient. There was some discussion about monoclonal therapy however monoclonal therapies for the patient's that her not hospitalize. However the patient stated that he is typically able to go appear to time without his oxygen. Since he has been sick this past Saturday he has had to use his oxygen at 3 L 24/7 which is an increase in his oxygen use. The patient is being admitted to observation status on the date of service of 06/14/2021. Chief Complaint: Shortness of breath Review of Systems Review of Systems: All systems reviewed & are unremarkable except as noted in HPI and below Constitutional: Constitutional: Reports as per HPI and Reports no additional constitutional complaints Eyes: Eyes: Reports as per HPI and Reports no additional eye complaints ENT: Reports system reviewed and no additional complaints, except as documented and Reports Normal hearing present Cardiovascular: Cardiovascular: Reports no additional cardiovascular complaints Respiratory: Respiratory: Reports no additional respiratory complaints and Reports no additional respiratory complaints Gastrointestinal: Gastrointestinal: Reports as per HPI and Reports no additional gastrointestinal complaints Musculoskeletal: Musculoskeletal: Reports no additional musculoskeletal complaints Integumentary/Breasts: Skin/Breast: Reports system reviewed and no additional complaints, except as docu and Reports as per HPI Neurologic: Reports system reviewed and no additional complaints, except as documented, Reports as per HPI and Reports Normal hearing present Psychiatric: Psychiatric: Reports no additional psychiatric complaints and Reports as per HPI Endocrine: Endocrine: Reports no additional endocrine complaints Hematologic/Lymphatic: Hematologic/Lymphatic: Reports no additional hematologic/lymphatic complaints Allergic/Immunologic: Allergic/Immunologic: Reports no additional allergic/immunologic complaints [facility] Past Medical History Medical History (Updated 06/14/21 @ 20:58 by Lorena Jackson NP) BPH (benign prostatic hyperplasia) Chronic deep vein thrombosis (DVT) Linear echogenic filling defect in the right femoral vein, likely chronic thrombus on venous dopplers 11/2020. Chronic respiratory failure with hypoxia, on home oxygen therapy COPD with emphysema Chronic steroid therapy, 10 milligrams prednisone daily. Gastroesophageal reflux disease Hiatal hernia Osteoarthritis Pneumonia (~2019) Surgical History Surgical History (Updated 06/14/21 @ 20:48 by Lorena Jackson NP) H/O colonoscopy History of bilateral cataract extraction History of lung surgery Fam
[2021-06-14] MEDS: MELATONIN 5 MG TABLET 10 MG PO (21:18)
[2021-06-14] MEDS: AZELASTINE HCL NASAL 0.1% 137 MCG/SPR 30 ML BTL 1 SPRAY NASAL (21:18)
[2021-06-14 22:00] LABS: Prothrombin Time 12.8 Seconds (11.1-14.7)
[2021-06-14] MEDS: TUBING, BLOOD PLUM PUMP TUBING 1 EACH XX (22:05)
[2021-06-14 22:12] LABS: Alanine Aminotransferase 66 U/L (4-50)
[2021-06-14] MEDS: SODIUM CHLORIDE 0.9% IV 500 ML 30 ML (23:00)
[2021-06-14 23:30] LABS: Glucose Point of Care 201 mg/dl (65-105)
[2021-06-15] VITALS (11 sets, daily range): BP systolic 120–143; BP diastolic 79–99; PULSE 80–113; RESP 16–24; TEMP 36–37; O2SAT 94–100
[2021-06-15] MEDS: REMDESIVIR 200 MG/NS 250 ML 200 MG/250 ML BAG 250 MG IVPB (00:08)
[2021-06-15] MEDS: ALBUTEROL SULFATE (*SP) AEROSOL 1 PUFF 4 PUFF INHALATION ×5 (01:55→20:12)
[2021-06-15] MEDS: ACETAMINOPHEN 325 MG TABLET 650 MG PO (06:22)
[2021-06-15 06:43] LABS: Glucose Point of Care 99 mg/dl (65-105)
[2021-06-15 07:10] LABS: Basophils Percent Auto 0.2 % (0.2-1.2); Hemoglobin 12.9 g/dL (14.0-18.0); Immature Granulocyte Absolute 0.02 K/mm3 (0.00-0.031); Immature Granulocyte Percent A 0.3 % (0-0.5); Immature Platelet Fraction Pct 5.7 % (0.9-11.2); Lymphocytes Absolute Auto 0.85 K/mm3 (0.9-3.2); Lymphocytes Percent Auto 13.7 % (18.3-44.2); Mean Corpuscular Hemoglobin 29.4 pg (26-34); Mean Corpuscular Volume 97.9 fl (80-100); Monocytes Absolute Auto 0.7 K/mm3 (0.1-0.6); Monocytes Percent Auto 10.8 % (2.6-8.5); Neutrophils Absolute Auto 4.7 K/mm3 (1.3-6.7); Platelet Count Result 198 k/mm3 (150-375); Red Blood Count 4.39 M/mm3 (4.6-6.20); Red Cell Distribution Width 15.2 % (11.5-14.5); White Blood Count 6.2 K/mm3 (4.5-10.0)
[2021-06-15 07:19] LABS: INR 0.9; Prothrombin Time 12.4 Seconds (11.1-14.7)
[2021-06-15 07:29] LABS: Alanine Aminotransferase 56 U/L (4-50); Albumin Level 3.9 g/dL (3.5-5.1); Alkaline Phosphatase 76 U/L (38-126); Anion Gap 8 mmol/L (8-16); Aspartate Amino Transferase 54 U/L (17-59); Bilirubin,Total 0.9 mg/dL (0.2-1.3); Blood Urea Nitrogen 19 mg/dL (9-20); CRP 6.3 mg/dL (<1.0); Calcium 8.6 mg/dL (8.4-10.2); Carbon Dioxide 22 mmol/L (22-30); Chloride 107 mmol/L (98-107); Estimated CRCL calculation 118 ml/min; Estimated Glomerular Filt Rate > 60; Glucose 102 mg/dL (65-110); Lactate Dehydrogenase 964 U/L (313-618); Potassium 5.3 mmol/L (3.4-5.0); Sodium 137 mmol/L (137-145)
[2021-06-15 07:59] LABS: Large Platelets Present
[2021-06-15] MEDS: LORATADINE 10 MG TABLET PO (08:50)
[2021-06-15] MEDS: busPIRone HCL 5 MG TABLET PO (08:50)
[2021-06-15] MEDS: TAMSULOSIN HCL 0.4 MG CAPSULE PO (08:50)
[2021-06-15] MEDS: ENOXAPARIN 40 MG/0.4 ML SYRINGE SUB-Q (08:50)
[2021-06-15] MEDS: ROFLUMILAST 500 MCG TABLET PO (08:50)
[2021-06-15] MEDS: THERAPEUTIC MULTIVITAMINS/MINERALS TAB (*BKC) 1 TABLET PO (08:51)
[2021-06-15] MEDS: ASPIRIN 81 MG CHEWABLE TABLET PO (08:51)
[2021-06-15] MEDS: TERBINAFINE HCL 250 MG TABLET PO (08:51)
[2021-06-15] MEDS: MAGNESIUM OXIDE 400 MG TABLET PO (08:51)
[2021-06-15] MEDS: NEOMYCIN/POLYMYXIN/BACITRACIN OINTMENT 15 GM TUBE 1 APPLIC TOPICAL ×2 (08:51→17:45)
[2021-06-15] MEDS: MICONAZOLE NITRATE 2% CREAM 30 GM TUBE 1 APPLIC TOPICAL ×2 (08:51→17:44)
[2021-06-15] MEDS: PANTOPRAZOLE 40 MG TABLET PO (08:51)
[2021-06-15] MEDS: predniSONE 20 MG TABLET 60 MG PO (08:52)
[2021-06-15] MEDS: AZELASTINE HCL NASAL 0.1% 137 MCG/SPR 30 ML BTL 1 SPRAY NASAL ×2 (08:55→21:17)
[2021-06-15] MEDS: ALPRAZolam (*CRX) 0.5 MG TABLET PO ×2 (09:02→17:40)
[2021-06-15] MEDS: HYDROcodone/acetaminophen (*CRX) 5-325 MG TABLET 1 TAB PO ×2 (09:02→17:40)
[2021-06-15] MEDS: ONDANSETRON INJ 4 MG/2 ML VIAL IV PUSH ×2 (12:39→17:40)
--- NOTE | 2021-06-15 12:43 | PCRCNOTE ---
Window of time for administration has passed. See next scheduled administration.
[2021-06-15] MEDS: ARTIFICIAL TEARS OPHTH SOLN 15 ML BOTTLE 1 DROP EACH EYE (16:02)
--- NOTE | 2021-06-15 16:17 | PM.IMPN ---
Progress Note: A&P Assessment and Plan (1) COPD with emphysema: Code(s): J43.9 - Emphysema, unspecified Status: Chronic Assessment and Plan: The patient on low-dose Prednisone at home. He presented to the ED for SOB and found to be COVID positive. He was started on prednisone 60 mg in the emergency room. [place] that patient having SOB related more to COPD exacerbation. Continue steroids, nebulizers and inhalers. Continue with Daliresp. Wean O2 as toelrated (2) COVID: Code(s): U07.1 - COVID-19 Status: Acute Assessment and Plan: Patient became symptomatic on 06/09. Rapid Antigen test performed in ED and was positive for COVID. CTA chest was clear. Patient remains on 3L NC. Patient admitted for SOB. Monoclonal therapy is not available for inpatient therapy. Patient was given convalescent plasma on 06/14/21. He was started on Prednisone and Remdesivir. Probably no longer a candidate for monoclonal Ab. Also on Prednisone. If remains stable tomorrow, will discharge home with Prednisone. (3) Chronic respiratory failure with hypoxia, on home oxygen therapy: Code(s): J96.11 - Chronic respiratory failure with hypoxia; Z99.81 - Dependence on supplemental oxygen Status: Chronic Assessment and Plan: The patient has been able to come off his chronic O2 while at rest since having the endobronchial valve placed in April. He is stable on 3L here. Wean O2 as tolerated and continue NIV while sleeping. (4) Anxiety: Code(s): F41.9 - Anxiety disorder, unspecified Status: Acute Assessment and Plan: Mood stable. Appears to be in good spirits. Continue with home Xanax prn (5) BPH (benign prostatic hyperplasia): Code(s): N40.0 - Benign prostatic hyperplasia without lower urinary tract symptoms Status: Chronic Assessment and Plan: Stable. Continue Flomax (6) DVT prophylaxis: Code(s): Z29.9 - Encounter for prophylactic measures, unspecified Status: Acute Assessment and Plan: Lovenox Subjective Date/time seen: 06/15/21 16:17 Interval history: 61yo male with COPD here for SOB and was recently diagnosed with COVID-19. SOB better. TORRES when walking to the BR. He feels his breathing at '50%' of baseline. He normally is on 3L NC but able to have periods off O2 when at rest when at home since his lung endobronchial valve procedure. He still has cough. Eating normally. Exam Narrative: AF 98.1 129/81 84 16 98% 3L Gen - NARD lying semirecumbent in bed Chest - distant but clear BS, nml RR. no conversational dyspnea CV - RRR S1/S2; Tele showing no significant dysrhythmias Abd - Soft, obese, NT, +BS Ext - No pedal edema, 2+ DP bilaterally Neuro - Alert and oriented. Nonfocal exam. Psych - Nml mood and affect; talkative Skin - Warm and dry Objective Data Vital Signs Vital Signs: Vital Signs - 24 hr 06/14/21 16:21 06/14/21 20:00 06/14/21 20:41 Temperature 97.0 F L Pulse Rate 114 H 100 Respiratory Rate 15 20 Blood Pressure 145/95 H 123/81 Pulse Oximetry 97 98 94 06/14/21 22:00 06/14/21 22:15 06/14/21 23:15 Temperature 98.6 F 98.3 F 98.1 F Pulse Rate 96 108 H 95 Respiratory Rate 16 20 16 Blood Pressure 130/93 H 135/98 H 129/90 Pulse Oximetry 96 96 96 06/15/21 00:00 06/15/21 01:56 06/15/21 04:00 Temperature 97.1 F L 97.1 F L Pulse Rate 100 80 Respiratory Rate 20 20 Blood Pressure 139/99 H 131/83 Pulse Oximetry 100 98 100 06/15/21 08:00 06/15/21 08:50 06/15/21 09:26 Temperature 97.0 F L Pulse Rate 113 H Respiratory Rate 16 Blood Pressure 135/88 Pulse Oximetry 98 97 97 06/15/21 12:00 Temperature 98.1 F Pulse Rate 84 Respiratory Rate 16 Blood Pressure 129/81 Pulse Oximetry 98 Intake/Output Intake/Output: Intake & Output 06/12/21 06/13/21 06/14/21 06/15/21 23:59 23:59 23:59 23:59 Intake Total 1202 1080 Output Total 700 Balance 1202 380 Meds/Results M
[2021-06-15 17:17] LABS: Potassium 4.8 mmol/L (3.4-5.0)
[2021-06-15] MEDS: BUDESONIDE RESPULE NEB 0.5 MG/2 ML AMP INHALATION (20:12)
[2021-06-15] MEDS: REMDESIVIR 100 MG/NS 250 ML 100 MG/250 ML BAG 250 MG IVPB (21:17)
[2021-06-15] MEDS: MELATONIN 5 MG TABLET 10 MG PO (21:17)
[2021-06-15] MEDS: LATANOPROST 0.005% OP SOLN 2.5 ML BTL 1 DROP EACH EYE (21:17)
[2021-06-16] VITALS (10 sets, daily range): BP systolic 116–132; BP diastolic 71–89; PULSE 71–100; RESP 14–24; TEMP 36.2–36.7; O2SAT 91–99
[2021-06-16] MEDS: HYDROcodone/acetaminophen (*CRX) 5-325 MG TABLET 1 TAB PO ×3 (01:24→19:56)
[2021-06-16 06:58] LABS: Prothrombin Time 12.7 Seconds (11.1-14.7)
[2021-06-16 08:02] LABS: Alanine Aminotransferase 51 U/L (4-50); Anion Gap 7 mmol/L (8-16); Blood Urea Nitrogen 20 mg/dL (9-20); CRP 4.4 mg/dL (<1.0); Calcium 9.3 mg/dL (8.4-10.2); Carbon Dioxide 28 mmol/L (22-30); Chloride 105 mmol/L (98-107); Estimated CRCL calculation 118 ml/min; Estimated Glomerular Filt Rate > 60; Glucose 86 mg/dL (65-110); Lactate Dehydrogenase 419 U/L (313-618); Potassium 4.2 mmol/L (3.4-5.0); Sodium 140 mmol/L (137-145)
[2021-06-16] MEDS: ALBUTEROL SULFATE (*SP) AEROSOL 1 PUFF 4 PUFF INHALATION ×4 (08:36→23:31)
[2021-06-16] MEDS: ENOXAPARIN 40 MG/0.4 ML SYRINGE SUB-Q (08:37)
[2021-06-16] MEDS: PANTOPRAZOLE 40 MG TABLET PO (08:37)
[2021-06-16] MEDS: ROFLUMILAST 500 MCG TABLET PO (08:37)
[2021-06-16] MEDS: predniSONE 20 MG TABLET 60 MG PO (08:37)
[2021-06-16] MEDS: ASPIRIN 81 MG CHEWABLE TABLET PO (08:37)
[2021-06-16] MEDS: AZITHROMYCIN 250 MG TABLET BY MOUTH (08:37)
[2021-06-16] MEDS: busPIRone HCL 5 MG TABLET PO (08:37)
[2021-06-16] MEDS: TERBINAFINE HCL 250 MG TABLET PO (08:38)
[2021-06-16] MEDS: TAMSULOSIN HCL 0.4 MG CAPSULE PO (08:38)
[2021-06-16] MEDS: MAGNESIUM OXIDE 400 MG TABLET PO (08:38)
[2021-06-16] MEDS: THERAPEUTIC MULTIVITAMINS/MINERALS TAB (*BKC) 1 TABLET PO (08:38)
[2021-06-16] MEDS: LORATADINE 10 MG TABLET PO (08:38)
[2021-06-16] MEDS: BUDESONIDE RESPULE NEB 0.5 MG/2 ML AMP INHALATION ×2 (08:41→20:39)
[2021-06-16] MEDS: ALPRAZolam (*CRX) 0.5 MG TABLET PO ×2 (08:43→19:48)
[2021-06-16] MEDS: ARTIFICIAL TEARS OPHTH SOLN 15 ML BOTTLE 1 DROP EACH EYE (08:47)
[2021-06-16] MEDS: NEOMYCIN/POLYMYXIN/BACITRACIN OINTMENT 15 GM TUBE 1 APPLIC TOPICAL ×2 (08:47→17:00)
[2021-06-16] MEDS: FLUTICASONE PROPIONATE 0.05% NA SPR 16 GM BTL (*BKC) 1 SPRAY NASAL (08:47)
[2021-06-16] MEDS: MICONAZOLE NITRATE 2% CREAM 30 GM TUBE 1 APPLIC TOPICAL ×2 (08:47→17:00)
[2021-06-16] MEDS: AZELASTINE HCL NASAL 0.1% 137 MCG/SPR 30 ML BTL 1 SPRAY NASAL ×2 (08:49→20:02)
--- NOTE | 2021-06-16 14:54 | PM.IMPN ---
Progress Note: A&P Assessment and Plan (1) COPD with emphysema: Code(s): J43.9 - Emphysema, unspecified Status: Chronic Assessment and Plan: The patient on low-dose Prednisone at home. He presented to the ED for SOB and found to be COVID positive but Chest CTA clear of infiltrates. He was started on prednisone 60 mg in the emergency room; felt that patient having SOB related more to COPD exacerbation. Continue steroids, nebulizers and inhalers. Continue with Daliresp. Wean O2 as tolerated. Encouraged patient to be out of bed. Add incentive spirometry. Lay prone. (2) COVID: Code(s): U07.1 - COVID-19 Status: Acute Assessment and Plan: Patient became symptomatic on 06/09. Rapid COVID Antigen test performed in ED was positive 06/14/21. CTA chest was clear so evidence of COVID PNA. Patient remains on 3L NC. Patient admitted for SOB. Monoclonal therapy is not available for inpatient therapy. Patient was given convalescent plasma on 06/14/21. He was started on Prednisone and Remdesivir. Unclear of the benefit of Remdesivir in this setting since patient is on home O2 with decreasing O2 requirement since his surgery. CRP declining. Probably not a candidate for monoclonal Ab. He still feels significant dyspnea with exertion. Will repeat CXR to see if there has been progression (3) Chronic respiratory failure with hypoxia, on home oxygen therapy: Code(s): J96.11 - Chronic respiratory failure with hypoxia; Z99.81 - Dependence on supplemental oxygen Status: Chronic Assessment and Plan: The patient has been able to come off his chronic O2 while at rest since having the endobronchial valve placed in April. He is stable on 3L here. Wean O2 as tolerated and continue NIV while sleeping. (4) Anxiety: Code(s): F41.9 - Anxiety disorder, unspecified Status: Acute Assessment and Plan: Mood stable. Continue with home Xanax prn (5) BPH (benign prostatic hyperplasia): Code(s): N40.0 - Benign prostatic hyperplasia without lower urinary tract symptoms Status: Chronic Assessment and Plan: Stable. Continue Flomax (6) DVT prophylaxis: Code(s): Z29.9 - Encounter for prophylactic measures, unspecified Status: Acute Assessment and Plan: Lovenox Subjective Date/time seen: 06/16/21 14:54 Interval history: 61yo male with COPD here for SOB and was recently diagnosed with COVID-19. No CP. Stil feels that he is not back to baseline and does not feel that he could manage at home. Stil with cough productive of clear sputum. Eating okay. Spending most of his time in bed. TORRES when walking to the BR. He is requesting a pulmonary consult. Exam Narrative: AF 98.1 129/88 100 16 95% 3L Gen - NARD lying semirecumbent in bed Chest - few scattered inspiratory rhonchi, nml RR, no conversational dyspnea CV - RRR S1/S2 Abd - Soft, obese, NT, +BS Ext - No pedal edema Psych - Nml mood and affect Skin - Warm and dry Objective Data Vital Signs Vital Signs: Vital Signs - 24 hr 06/15/21 16:00 06/15/21 20:00 06/15/21 20:15 Temperature 98.6 F 96.8 F L Pulse Rate 94 102 H 110 H Respiratory Rate 18 18 24 H Blood Pressure 122/79 120/88 Pulse Oximetry 98 94 95 06/15/21 20:34 06/16/21 00:00 06/16/21 00:35 Temperature 97.2 F L Pulse Rate 95 87 71 Respiratory Rate 24 H 18 24 H Blood Pressure 127/89 Pulse Oximetry 95 98 97 06/16/21 04:00 06/16/21 08:00 06/16/21 08:41 Temperature 97.8 F 98.0 F Pulse Rate 74 80 96 Respiratory Rate 18 14 24 H Blood Pressure 116/72 132/87 Pulse Oximetry 98 97 91 06/16/21 08:51 06/16/21 12:00 Temperature 98.1 F Pulse Rate 93 100 Respiratory Rate 20 16 Blood Pressure 129/88 Pulse Oximetry 95 Intake/Output Intake/Output: Intake & Output 06/13/21 06/14/21 06/15/21 06/16/21 23:59 23:59 23:59 23:59 Intake Total 1202 2230 1310 Output Total 700 1150 Balance 1202 1530 160
--- NOTE | 2021-06-16 15:13 | PM.CNPUL ---
Assessment and Plan Assessment and plan (1) COVID: Code(s): U07.1 - COVID-19 Status: Acute Assessment and Plan: Patient with worsening symptoms since 06/09 and tested positive on 06/14. Patient was started on remdesivir 06/14/21 and systemic steroids 06/14/21. Given convalescent plasma on 06/14/21. Currently on prednisone 60 mg PO Q day, remdesivir 100 Q day. Patient with stable oxygenation and currently on 3 L NC (home level) with saturations 95%. His repeat chest x-ray today shows no progression of his COVID pneumonia. While he is admitted in house, I would continue the Remdesivir for 5 days or until discharge. (2) Acute exacerbation of chronic obstructive airways disease: Code(s): J44.1 - Chronic obstructive pulmonary disease with (acute) exacerbation Status: Acute Assessment and Plan: Patient with a history of severe COPD (FEV1 30%), status post right upper lobe endobronchial valve, on home oxygen 3 L 06/05, home trilogy, prednisone 10 mg a day, nebulized budesonide, Brovana, and low on a, azithromycin 250 mg p.o. t.i.w., and daliresp. Currently being treated for COPD exacerbation with prednisone 60 mg p.o. q.day tiotropium and albuterol inhalers as he has COVID, budesonide nebs, azithromycin 250 3 times a week and daliresp. Per his request I have placed him on his home doses of promethazine 6.25 mg p.o. Q 6 hours p.r.n. cough and dextromethorphan 15 mg p.o. Q 6 hours p.r.n. cough. I have discontinued his Chlorphenir /hydrocodone at this time. . Today he tells me he is still short of breath and this is likely combination of his COPD exacerbation and COVID infection. Patient states that the current auto Pap machine feels similar to his home noninvasive ventilation and I will continue this at this time. I have contacted the service parts coordinator in attempt to obtain a current download but [facility] office is closed and we will not be able to obtain a download until Saturday.. Will follow with you. History of Present Illness History of Present Illness Consult date: 06/16/21 Reason for consult: COPD and other (COVID) Chief complaint: COPD Exacerbation, COVID + Narrative: this is a new Pulmonary consult for COPD and COVID pneumonia. 61-year-old man with a history of severe COPD (quit tobacco 02/2019) with an FEV1 of 0.74 L, 30% predicted on 02/14/2019, status post RUL endobronchial valve, on 3 L home O2 and noninvasive ventilator at night. Patient is followed in the Pulmonary Clinic in last seen on 03/01/2021 and he was continued on budesonide nebulizers, Brovana nebulizers, lonhal[place] nebulizer, prednisone 10mg PO Q day, daliresp, and azithromycin TIW. patient's CAT score was 34. Patient admitted now with worsening shortness of breath starting on 06/09 and rapid COVID antigen test in the ED on 06/[address] angiogram showed no infiltrates and an endobronchial valve with complete atelectasis of the right upper lobe. Patient has been maintained on 3 L nasal cannula. Blood gas on 06/14 demonstrated a pH of 7.40/46/24 on 3 L nasal cannula. This was felt to be a mixed blood gas as saturations at the time were 93%. Patient has been treated for COPD exacerbation with prednisone 60 mg p.o. q.day, tiotropium inhaler, albuterol inhaler, in continuation of his budesonide, azithromycin and dowel arrest. He is also being treated for COVID pneumonia with Remdesivir started on 06/14. 06/16/21 Today the patient tells me that Overall he feels slightly improved physically. He still has the same cough, the same clear phlegm production but his dyspnea on exertion when walking to the bathroom is worse than he pre than when he presented. Patient denies fever, chills, rigors, hemoptysis. Occasionally when he takes a deep breath he has a 1 of 10 chest pain. The patient tells me that the current auto Pap machine they have him on at night feels very similar to his home trilogy machine. Current
[2021-06-16] MEDS: PROMETHAZINE HCL 6.25 MG TABLET PO (17:43)
[2021-06-16] MEDS: DEXTROMETHORPHAN POLISTIREX 60 MG/10 ML SYRINGE 15 MG PO (17:43)
[2021-06-16] MEDS: LATANOPROST 0.005% OP SOLN 2.5 ML BTL 1 DROP EACH EYE (20:02)
[2021-06-16] MEDS: MELATONIN 5 MG TABLET 10 MG PO (20:03)
[2021-06-16] MEDS: REMDESIVIR 100 MG/NS 250 ML 100 MG/250 ML BAG 250 MG IVPB (22:09)
[2021-06-17] VITALS (12 sets, daily range): BP systolic 124–140; BP diastolic 75–93; PULSE 72–97; RESP 18–22; TEMP 35.7–36.7; O2SAT 91–100
[2021-06-17] MEDS: PROMETHAZINE HCL 6.25 MG TABLET PO ×2 (05:55→17:53)
[2021-06-17] MEDS: HYDROcodone/acetaminophen (*CRX) 5-325 MG TABLET 1 TAB PO ×3 (05:55→22:52)
[2021-06-17] MEDS: ALPRAZolam (*CRX) 0.5 MG TABLET PO ×2 (05:55→18:14)
[2021-06-17] MEDS: DEXTROMETHORPHAN POLISTIREX 60 MG/10 ML SYRINGE 15 MG PO ×2 (05:55→17:52)
[2021-06-17] MEDS: ALBUTEROL SULFATE (*SP) AEROSOL 1 PUFF 4 PUFF INHALATION ×4 (08:07→20:41)
[2021-06-17] MEDS: BUDESONIDE RESPULE NEB 0.5 MG/2 ML AMP INHALATION ×2 (08:08→20:41)
[2021-06-17] MEDS: ENOXAPARIN 40 MG/0.4 ML SYRINGE SUB-Q (08:56)
[2021-06-17] MEDS: THERAPEUTIC MULTIVITAMINS/MINERALS TAB (*BKC) 1 TABLET PO (08:56)
[2021-06-17] MEDS: TERBINAFINE HCL 250 MG TABLET PO (08:56)
[2021-06-17] MEDS: MAGNESIUM OXIDE 400 MG TABLET PO (08:56)
[2021-06-17] MEDS: predniSONE 20 MG TABLET 60 MG PO (08:56)
[2021-06-17] MEDS: ASPIRIN 81 MG CHEWABLE TABLET PO (08:56)
[2021-06-17] MEDS: ROFLUMILAST 500 MCG TABLET PO (08:57)
[2021-06-17] MEDS: AZELASTINE HCL NASAL 0.1% 137 MCG/SPR 30 ML BTL 1 SPRAY NASAL ×2 (08:57→21:18)
[2021-06-17] MEDS: MICONAZOLE NITRATE 2% CREAM 30 GM TUBE 1 APPLIC TOPICAL ×2 (08:57→17:56)
[2021-06-17] MEDS: TAMSULOSIN HCL 0.4 MG CAPSULE PO (08:57)
[2021-06-17] MEDS: LORATADINE 10 MG TABLET PO (08:57)
[2021-06-17] MEDS: busPIRone HCL 5 MG TABLET PO (08:57)
[2021-06-17] MEDS: PANTOPRAZOLE 40 MG TABLET PO (08:57)
[2021-06-17] MEDS: NEOMYCIN/POLYMYXIN/BACITRACIN OINTMENT 15 GM TUBE 1 APPLIC TOPICAL ×2 (08:57→17:56)
[2021-06-17 09:56] LABS: Prothrombin Time 12.7 Seconds (11.1-14.7)
[2021-06-17 09:58] LABS: Alanine Aminotransferase 53 U/L (4-50)
--- NOTE | 2021-06-17 11:28 | PM.IMPN ---
Progress Note: A&P Assessment and Plan (1) COVID: Code(s): U07.1 - COVID-19 Status: Acute Assessment and Plan: Patient became symptomatic on 06/09. Rapid COVID Antigen test performed in ED was positive 06/14/21. Admitted with shortness of breath. CT chest was clear no evidence of COVID PNA. He was given convalescent plasma and started on prednisone (given COPD) and remdesivir on 06/14/21. CRP declining. He still feels significant dyspnea with exertion. Chest x-ray 06/16 with right upper lobe atelectasis unchanged, otherwise clear lungs. Prone as tolerated (2) COPD with emphysema: Code(s): J43.9 - Emphysema, unspecified Status: Chronic Assessment and Plan: He is on prednisone 10 mg daily at home. History of severe COPD (FEV1 30%), status post right upper lobe endobronchial valve April 2021 Chest CTA no evidence of infiltrates. He was started on prednisone 60 mg in the emergency room 06/14, felt shortness of breath was due to COPD exacerbation. Continue steroids, nebulizers and inhalers. Continue home azithromycin tiw 250 mg Continue with Daliresp. Encouraged patient to be out of bed. Incentive spirometer (3) Chronic respiratory failure with hypoxia, on home oxygen therapy: Code(s): J96.11 - Chronic respiratory failure with hypoxia; Z99.81 - Dependence on supplemental oxygen Status: Chronic Assessment and Plan: Reports 3 L of oxygen at home all times, and at night he is on trilogy Continue to monitor respiratory status in the setting of possible COPD exacerbation and COVID as above He did have the endobronchial valves placed in April Appreciate pulmonary consultation (4) Anxiety: Code(s): F41.9 - Anxiety disorder, unspecified Status: Acute Assessment and Plan: Mood stable. Continue with home Xanax prn (5) BPH (benign prostatic hyperplasia): Code(s): N40.0 - Benign prostatic hyperplasia without lower urinary tract symptoms Status: Chronic Assessment and Plan: Stable. Continue Flomax (6) DVT prophylaxis: Code(s): Z29.9 - Encounter for prophylactic measures, unspecified Status: Acute Assessment and Plan: Lovenox Additional Plan Code status: Full code Subjective Date/time seen: 06/17/21 11:28 Reports continued significant shortness of breath with minimal activity. When he gets up to the bathroom he is very short winded. At rest he needs 3 L of oxygen which is his baseline. Hemodynamically stable. Afebrile. No major events overnight. Review of Systems Review of Systems: All systems reviewed & are unremarkable except as noted in HPI and below Exam Narrative: Gen: Alert, NAD, oxygen by nasal cannula Abd: Soft, NT, ND Heart: RRR Lungs: CTAB Ext: No lower extremity edema Objective Data Vital Signs Vital Signs: Vital Signs - 24 hr 06/16/21 12:00 06/16/21 16:00 06/16/21 20:00 Temperature 98.1 F 97.8 F 97.1 F L Pulse Rate 100 96 86 Respiratory Rate 16 16 20 Blood Pressure 129/88 129/77 124/71 Pulse Oximetry 95 98 99 06/17/21 00:00 06/17/21 04:00 06/17/21 07:56 Temperature 97.1 F L 97.3 F L 96.3 F L Pulse Rate 83 88 80 Respiratory Rate 18 22 H 20 Blood Pressure 130/81 133/79 140/75 Pulse Oximetry 96 93 100 06/17/21 08:10 06/17/21 08:21 Temperature Pulse Rate 78 88 Respiratory Rate 20 20 Blood Pressure Pulse Oximetry 95 Intake/Output Intake/Output: Intake & Output 06/14/21 06/15/21 06/16/21 06/17/21 23:59 23:59 23:59 23:59 Intake Total 1202 2230 2190 600 Output Total 700 1350 700 Balance 1202 1530 840 -100 Meds/Results Medications: Active Medications Generic Name Dose Route Start Last Admin Trade Name Freq PRN Reason Stop Dose Admin Acetaminophen 650 mg 06/14/21 19:44 06/15/21 06:22 Acetaminophen 325 Mg Tablet PO 650 mg Q6H PRN Administration Mild Pain (1-3) Hydrocodone Bitart/Acetaminophen 1 tab 06/14/21 19:23 06/17/21 0
--- NOTE | 2021-06-17 16:59 | PM.PNPUL ---
Progress Note: A&P Assessment and Plan (1) COVID: Code(s): U07.1 - COVID-19 Status: Acute Assessment and Plan: Patient with worsening symptoms since 06/09 and tested positive on 06/14. Patient was started on remdesivir 06/14/21 and systemic steroids 06/14/21. Given convalescent plasma on 06/14/21. Currently on prednisone 60 mg PO Q day, remdesivir 100 Q day. Patient with stable oxygenation and currently on 3 L NC (home level) with saturations 95%. His repeat chest 06/16 - no progression of his COVID pneumonia. He continues Remdesivir for 5 days or until discharge. He is stable from COVID standpoint. (2) Acute exacerbation of chronic obstructive airways disease: Code(s): J44.1 - Chronic obstructive pulmonary disease with (acute) exacerbation Status: Acute Assessment and Plan: Patient with a history of severe COPD (FEV1 30%), status post right upper lobe endobronchial valve, on home oxygen 3 L 06/05, home trilogy, prednisone 10 mg a day, nebulized budesonide, Brovana, and low on a, azithromycin 250 mg p.o. t.i.w., and daliresp. Currently being treated for COPD exacerbation with prednisone 60 mg p.o. q.day tiotropium and albuterol inhalers as he has COVID, budesonide nebs, azithromycin 250 3 times a week and Daliresp. He requested his home doses of promethazine 6.25 mg p.o. Q 6 hours p.r.n. cough and dextromethorphan 15 mg p.o. Q 6 hours p.r.n. cough. His shortness of breath is much better, and is a combination of his COPD exacerbation and COVID infection. Patient states that the current auto Pap machine feels similar to his home noninvasive ventilation and I will continue this at this time. I have contacted the business coordinator in attempt to obtain a current download but [facility] office is closed and we will not be able to obtain a download until Wednesday 06/20 Subjective Date/time seen: 06/17/21 16:59 Follow up visit for this 61-year-old man with COPD exacerbation and COVID. He is feeling better although he is short of breath walking to the bathroom. He is on 3 L/min with stable saturation. He has a history of severe COPD (quit tobacco 02/2019) with FEV1 of 0.74 L, 30% pred; 02/14/2019, status post RUL endobronchial valve, on 3 L home O2 and noninvasive ventilator at night; budesonide nebulizers, Brovana nebulizers, lonhala nebulizer, prednisone 10mg PO Q day, daliresp, and azithromycin MWF. He felt improved only 3 weeks after having the endobronchial valve placed. . Recent hx: admitted w increased shortness of breath 06/09 and rapid COVID antigen test in the ED on 06/[address] angiogram showed no infiltrates and an endobronchial valve with complete atelectasis of the right upper lobe. Patient has been maintained on 3 L nasal cannula. Blood gas on 06/14 demonstrated a pH of 7.40/46/24 on 3 L nasal cannula. This was felt to be a mixed blood gas as saturations at the time were 93%. Patient has been treated for COPD exacerbation with prednisone 60 mg p.o. q.day, tiotropium inhaler, albuterol inhaler, in continuation of his budesonide, azithromycin and dowel arrest. He is also being treated for COVID pneumonia with Remdesivir started on 06/14. 06/16/21 Today the patient tells me that Overall he feels slightly improved physically. He still has the same cough, the same clear phlegm production but his dyspnea on exertion when walking to the bathroom is worse than he pre than when he presented. Patient denies fever, chills, rigors, hemoptysis. Occasionally when he takes a deep breath he has a 1 of 10 chest pain. The patient tells me that the current auto Pap machine they have him on at night feels very similar to his home trilogy machine. Currently the patient is on 3 L nasal cannula and his saturations are 95%. 06/17/21 He feels much better, less coughing, back on home
[2021-06-17] MEDS: MELATONIN 5 MG TABLET 10 MG PO (21:17)
[2021-06-17] MEDS: REMDESIVIR 100 MG/NS 250 ML 100 MG/250 ML BAG 250 MG IVPB (21:17)
[2021-06-17] MEDS: FLUTICASONE PROPIONATE 0.05% NA SPR 16 GM BTL (*BKC) 1 SPRAY NASAL (21:17)
[2021-06-17] MEDS: LATANOPROST 0.005% OP SOLN 2.5 ML BTL 1 DROP EACH EYE (21:18)
[2021-06-18] VITALS (9 sets, daily range): BP systolic 116–138; BP diastolic 43–89; PULSE 67–100; RESP 16–20; TEMP 35.7–36.8; O2SAT 93–100
[2021-06-18 07:18] LABS: Prothrombin Time 13.2 Seconds (11.1-14.7)
[2021-06-18] MEDS: BUDESONIDE RESPULE NEB 0.5 MG/2 ML AMP INHALATION (07:54)
[2021-06-18] MEDS: ALBUTEROL SULFATE (*SP) AEROSOL 1 PUFF 4 PUFF INHALATION ×4 (07:54→19:56)
[2021-06-18] MEDS: PROMETHAZINE HCL 6.25 MG TABLET PO ×2 (08:38→21:52)
[2021-06-18] MEDS: DEXTROMETHORPHAN POLISTIREX 60 MG/10 ML SYRINGE 15 MG PO ×2 (08:38→21:52)
[2021-06-18] MEDS: ENOXAPARIN 40 MG/0.4 ML SYRINGE SUB-Q (08:39)
[2021-06-18] MEDS: MAGNESIUM OXIDE 400 MG TABLET PO (08:39)
[2021-06-18] MEDS: TERBINAFINE HCL 250 MG TABLET PO (08:39)
[2021-06-18] MEDS: predniSONE 20 MG TABLET 60 MG PO (08:39)
[2021-06-18] MEDS: LORATADINE 10 MG TABLET PO (08:40)
[2021-06-18] MEDS: THERAPEUTIC MULTIVITAMINS/MINERALS TAB (*BKC) 1 TABLET PO (08:40)
[2021-06-18] MEDS: HYDROcodone/acetaminophen (*CRX) 5-325 MG TABLET 1 TAB PO ×3 (08:41→21:53)
[2021-06-18] MEDS: busPIRone HCL 5 MG TABLET PO (08:42)
[2021-06-18] MEDS: FLUTICASONE PROPIONATE 0.05% NA SPR 16 GM BTL (*BKC) 1 SPRAY NASAL (08:42)
[2021-06-18] MEDS: ASPIRIN 81 MG CHEWABLE TABLET PO (08:42)
[2021-06-18] MEDS: ROFLUMILAST 500 MCG TABLET PO (08:42)
[2021-06-18] MEDS: PANTOPRAZOLE 40 MG TABLET PO (08:42)
[2021-06-18] MEDS: TAMSULOSIN HCL 0.4 MG CAPSULE PO (08:42)
[2021-06-18] MEDS: MICONAZOLE NITRATE 2% CREAM 30 GM TUBE 1 APPLIC TOPICAL ×2 (08:43→22:02)
[2021-06-18] MEDS: NEOMYCIN/POLYMYXIN/BACITRACIN OINTMENT 15 GM TUBE 1 APPLIC TOPICAL ×2 (08:43→19:00)
[2021-06-18] MEDS: AZELASTINE HCL NASAL 0.1% 137 MCG/SPR 30 ML BTL 1 SPRAY NASAL ×2 (08:43→22:00)
--- NOTE | 2021-06-18 09:38 | PM.IMPN ---
Progress Note: A&P Assessment and Plan (1) COVID: Code(s): U07.1 - COVID-19 Status: Acute Assessment and Plan: This is a 61-year-old gentleman with past medical history of severe COPD with emphysema (FEV1 30%) with chronic respiratory failure requiring oxygen therapy at home, along with trilogy machine at night, BPH, and GERD, who presented to the emergency department on 06/14 with shortness of breath requiring increasing oxygen especially with activity. and emergency department he tested positive for COVID. Chest x-ray showed opacification and volume loss in the right lung apex and right suprahilar metallic densities consistent with recent endobronchial valves. CT scan of his chest however showed no infiltrates. He was admitted to the hospital, received convalescent plasma, remdesivir, and prednisone (given concern for COPD exacerbation), along with inhalers. He was monitored closely and pulmonary medicine were consulted in the hospital. His home respiratory regimen was noted to be: oxygen 3 L at all times, home trilogy, prednisone 10 mg daily, nebulized budesonide, Brovana, azithromycin 250 mg p.o. t.i.w., and daliresp. His meds were continued and he gradually improved and was able to ambulate with his usual level of home O2 of 3L. Patient became symptomatic on 06/09. Rapid COVID Antigen test performed in ED was positive 06/14/21. Admitted with shortness of breath. CT chest was clear no evidence of COVID PNA. He was given convalescent plasma and started on prednisone (given COPD) and remdesivir on 06/14/21. CRP declining. He still feels significant dyspnea with exertion. Chest x-ray 06/16 with right upper lobe atelectasis unchanged, otherwise clear lungs. Prone as tolerated (2) COPD with emphysema: Code(s): J43.9 - Emphysema, unspecified Status: Chronic Assessment and Plan: He is on prednisone 10 mg daily at home. History of severe COPD (FEV1 30%), status post right upper lobe endobronchial valve April 2021 Chest CTA no evidence of infiltrates. He was started on prednisone 60 mg in the emergency room 06/14, felt shortness of breath was due to COPD exacerbation. Continue steroids, nebulizers and inhalers. Continue home azithromycin tiw 250 mg Continue with Daliresp. Encouraged patient to be out of bed. Incentive spirometer (3) Chronic respiratory failure with hypoxia, on home oxygen therapy: Code(s): J96.11 - Chronic respiratory failure with hypoxia; Z99.81 - Dependence on supplemental oxygen Status: Chronic Assessment and Plan: Reports 3 L of oxygen at home all times, and at night he is on trilogy Continue to monitor respiratory status in the setting of possible COPD exacerbation and COVID as above He did have the endobronchial valves placed in April Appreciate pulmonary consultation (4) Anxiety: Code(s): F41.9 - Anxiety disorder, unspecified Status: Acute Assessment and Plan: Mood stable. Continue with home Xanax prn (5) BPH (benign prostatic hyperplasia): Code(s): N40.0 - Benign prostatic hyperplasia without lower urinary tract symptoms Status: Chronic Assessment and Plan: Stable. Continue Flomax (6) DVT prophylaxis: Code(s): Z29.9 - Encounter for prophylactic measures, unspecified Status: Acute Assessment and Plan: Lovenox Subjective Date/time seen: 06/18/21 09:38 No major issues last night. On CPAP this morning. Reports his breathing is improved although still quite short of breath with ambulation. He is on 3 L of oxygen by nasal cannula during the day. Hemodynamically stable. Afebrile. Review of Systems Review of Systems: All systems reviewed & are unremarkable except as noted in HPI and below Exam Narrative: Gen: Alert, NAD Abd: Soft, NT, ND Heart: RRR Lungs: CTAB Ext: No lower extremity edema Objective Data Vital Signs Vital Signs: Vital Signs - 24 hr 06/17/21 12:0
[2021-06-18 11:57] LABS: Alanine Aminotransferase 48 U/L (4-50); CRP 1.6 mg/dL (<1.0)
[2021-06-18] MEDS: guaiFENesin 12 HR 600 MG TABCR PO (13:54)
[2021-06-18] MEDS: SALINE 0.65% NAS SOLN 44 ML BTL 1 SPRAY NASAL (13:55)
[2021-06-18] MEDS: REMDESIVIR 100 MG/NS 250 ML 100 MG/250 ML BAG 250 MG IVPB (21:53)
[2021-06-18] MEDS: MELATONIN 5 MG TABLET 10 MG PO (21:54)
[2021-06-18] MEDS: LATANOPROST 0.005% OP SOLN 2.5 ML BTL 1 DROP EACH EYE (22:00)
[2021-06-19] VITALS (7 sets, daily range): BP systolic 111–135; BP diastolic 75–88; PULSE 73–110; RESP 18–20; TEMP 36.1–36.8; O2SAT 95–100
[2021-06-19] MEDS: HYDROcodone/acetaminophen (*CRX) 5-325 MG TABLET 1 TAB PO (06:51)
[2021-06-19] MEDS: PROMETHAZINE HCL 6.25 MG TABLET PO (06:51)
[2021-06-19] MEDS: DEXTROMETHORPHAN POLISTIREX 60 MG/10 ML SYRINGE 15 MG PO (06:51)
[2021-06-19] MEDS: BUDESONIDE RESPULE NEB 0.5 MG/2 ML AMP INHALATION (07:28)
[2021-06-19] MEDS: ALBUTEROL SULFATE (*SP) AEROSOL 1 PUFF 4 PUFF INHALATION ×2 (07:28→12:50)
[2021-06-19] MEDS: TERBINAFINE HCL 250 MG TABLET PO (08:26)
[2021-06-19] MEDS: AZITHROMYCIN 250 MG TABLET BY MOUTH (08:26)
[2021-06-19] MEDS: ROFLUMILAST 500 MCG TABLET PO (08:26)
[2021-06-19] MEDS: guaiFENesin 12 HR 600 MG TABCR PO (08:27)
[2021-06-19] MEDS: TAMSULOSIN HCL 0.4 MG CAPSULE PO (08:27)
[2021-06-19] MEDS: ASPIRIN 81 MG CHEWABLE TABLET PO (08:27)
[2021-06-19] MEDS: MAGNESIUM OXIDE 400 MG TABLET PO (08:27)
[2021-06-19] MEDS: busPIRone HCL 5 MG TABLET PO (08:27)
[2021-06-19] MEDS: THERAPEUTIC MULTIVITAMINS/MINERALS TAB (*BKC) 1 TABLET PO (08:28)
[2021-06-19] MEDS: LORATADINE 10 MG TABLET PO (08:28)
[2021-06-19] MEDS: ENOXAPARIN 40 MG/0.4 ML SYRINGE SUB-Q (08:28)
[2021-06-19] MEDS: predniSONE 20 MG TABLET 60 MG PO (08:28)
[2021-06-19] MEDS: FLUTICASONE PROPIONATE 0.05% NA SPR 16 GM BTL (*BKC) 1 SPRAY NASAL (08:29)
[2021-06-19] MEDS: PANTOPRAZOLE 40 MG TABLET PO (08:29)
[2021-06-19] MEDS: AZELASTINE HCL NASAL 0.1% 137 MCG/SPR 30 ML BTL 1 SPRAY NASAL (08:32)
[2021-06-19] MEDS: MICONAZOLE NITRATE 2% CREAM 30 GM TUBE 1 APPLIC TOPICAL (08:33)
[2021-06-19] MEDS: NEOMYCIN/POLYMYXIN/BACITRACIN OINTMENT 15 GM TUBE 1 APPLIC TOPICAL (08:33)
[2021-06-19] MEDS: ACETAMINOPHEN 325 MG TABLET 650 MG PO (11:24)
[2021-06-19] MEDS: ALPRAZolam (*CRX) 0.5 MG TABLET PO (11:24)
--- NOTE | 2021-06-19 12:56 | PM.PNPUL ---
Progress Note: A&P Assessment and Plan (1) COVID: Code(s): U07.1 - COVID-19 Status: Acute Assessment and Plan: Patient with worsening symptoms since 06/09 and tested positive on 06/14. Patient was started on remdesivir 06/14/21 and systemic steroids 06/14/21. Given convalescent plasma on 06/14/21. Currently on prednisone 60 mg PO Q day, remdesivir 100 Q day. Patient with stable oxygenation and currently on 3 L NC (home level) with saturations 95%. His repeat chest 06/16 - no progression of his COVID pneumonia. He continues Remdesivir for 5 days or until discharge. He is stable from COVID standpoint. (2) Acute exacerbation of chronic obstructive airways disease: Code(s): J44.1 - Chronic obstructive pulmonary disease with (acute) exacerbation Status: Acute Assessment and Plan: Patient with a history of severe COPD (FEV1 30%), status post right upper lobe endobronchial valve, on home oxygen 3 L 06/05, home trilogy, prednisone 10 mg a day, nebulized budesonide, Brovana, and low on a, azithromycin 250 mg p.o. t.i.w., and daliresp. Currently being treated for COPD exacerbation with prednisone 60 mg p.o. q.day tiotropium and albuterol inhalers as he has COVID, budesonide nebs, azithromycin 250 3 times a week and Daliresp. He requested his home doses of promethazine 6.25 mg p.o. Q 6 hours p.r.n. cough and dextromethorphan 15 mg p.o. Q 6 hours p.r.n. cough. His shortness of breath is much better, and is a combination of his COPD exacerbation and COVID infection. Patient states that the current auto Pap machine feels similar to his home noninvasive ventilation and I will continue this at this time. I have contacted the community health education coordinator in attempt to obtain a current download but [facility] office is closed and we will not be able to obtain a download until Wednesday 06/20 Subjective Date/time seen: 06/19/21 12:56 Follow up visit for this 61-year-old man with COPD exacerbation and COVID. He is much better, no loose stools, ready to go home. He is on his home O2, 3 L/min, short of breath with walking, but improved. Continues to have nasal drainage, and some sputum from lower airway that causes some choking. He is on 3 L/min with stable saturation. He has a history of severe COPD (quit tobacco 02/2019) with FEV1 of 0.74 L, 30% pred; 02/14/2019, status post RUL endobronchial valve, on 3 L home O2 and noninvasive ventilator at night; budesonide nebulizers, Brovana nebulizers, lonhala nebulizer, prednisone 10mg PO Q day, daliresp, and azithromycin MWF. He felt improved only 3 weeks after having the endobronchial valve placed. Recent hx: admitted w increased shortness of breath 06/09 and rapid COVID antigen test in the ED on 06/[address] angiogram showed no infiltrates and an endobronchial valve with complete atelectasis of the right upper lobe. Patient has been maintained on 3 L nasal cannula. Blood gas on 06/14 demonstrated a pH of 7.40/46/24 on 3 L nasal cannula. This was felt to be a mixed blood gas as saturations at the time were 93%. Patient has been treated for COPD exacerbation with prednisone 60 mg p.o. q.day, tiotropium inhaler, albuterol inhaler, in continuation of his budesonide, azithromycin and dowel arrest. He is also being treated for COVID pneumonia with Remdesivir started on 06/14. 06/16/21 Today the patient tells me that Overall he feels slightly improved physically. He still has the same cough, the same clear phlegm production but his dyspnea on exertion when walking to the bathroom is worse than he pre than when he presented. Patient denies fever, chills, rigors, hemoptysis. Occasionally when he takes a deep breath he has a 1 of 10 chest pain. The patient tells me that the current auto Pap machine they have him on at night feels very similar to his home trilogy mac
--- NOTE | 2021-06-19 14:31 | PM.DS ---
DS: Admitting Diagnosis Admitting Diagnosis shortness of breath DS: Discharge Diagnosis Discharge Diagnosis (1) COPD with emphysema: Code(s): J43.9 - Emphysema, unspecified Status: Chronic Assessment and Plan: Patient with a history of severe COPD (FEV1 30%) status post right upper lobe endobronchial valve, on home oxygen 3 L 06/05, home trilogy, prednisone 10 mg a day, nebulized budesonide, Brovana, azithromycin 250 mg p.o. t.i.w., and daliresp. He presented to the ED for SOB and found to be COVID positive but Chest CTA clear of infiltrates. He was started on prednisone 60 mg in the emergency room; felt that patient having SOB related more to COPD exacerbation. Symptoms improved. Wheezing resolved. He remained stable on his 3L. (2) COVID: Code(s): U07.1 - COVID-19 Status: Acute Assessment and Plan: Patient became symptomatic on 06/09. Rapid COVID Antigen test performed in ED was positive 06/14/21. CTA chest was clear with no evidence of COVID PNA. Patient admitted for SOB and he remained on 3L NC. Monoclonal therapy is not available for inpatient therapy. Patient was given convalescent plasma on 06/14/21. He was started on Prednisone and Remdesivir. Unclear of the benefit of Remdesivir in this setting since patient is on home O2 and at baseline. CRP 6.3 on admission and declined to 1.6. Repeat CXR showing persistent clear lungs. He was treated with supportive care. (3) Chronic respiratory failure with hypoxia, on home oxygen therapy: Code(s): J96.11 - Chronic respiratory failure with hypoxia; Z99.81 - Dependence on supplemental oxygen Status: Chronic Assessment and Plan: The patient has been doing well since having the endobronchial valve placed in April. He remained stable on 3L here. (4) Anxiety: Code(s): F41.9 - Anxiety disorder, unspecified Status: Acute Assessment and Plan: Mood remained stable. We continued his home Xanax prn (5) BPH (benign prostatic hyperplasia): Code(s): N40.0 - Benign prostatic hyperplasia without lower urinary tract symptoms Status: Chronic Assessment and Plan: Stable. We continued his home Flomax DS: Summary Hospital Course Reason for hospitalization: 61yo male with severe COPD here for SOB and was recently diagnosed with COVID-19. Please see H&P for details. Hospital Course: Please see above for details of hospital course. Status at Discharge Cognitive/behavioral status at discharge: Stable Time Spent with Patient Time attestation: Total time spent providing and/or coordinating discharge services: 32 minutes Time spent: Greater than 30 minutes Specific discharge activities: Patient Education. Discussed with pulmonology. Discharge medications were discussed as well. Exam Narrative: AF 97.1 123/78 100 20 95% 3L Gen - NARD lying semirecumbent in bed Chest -clear distant breath sounds. No wheezing. CV - RRR S1/S2 Abd - Soft, obese, NT, +BS Ext - No pedal edema Psych - Nml mood and affect Skin - Warm and dry DS: Data Data Completed and Pending Labs on day of discharge: Preliminary micro results at discharge 06/14/21 12:18 Blood Culture - Preliminary Blood 06/14/21 12:18 Blood Culture - Preliminary Blood Discharge Plan Discharge Attending physician on discharge: Sebastian Hawkins Consulting providers: Bentley Ham Discharging Clinician: Sebastian Hawkins Anticipated Discharge Date/Time: 06/19/21 14:31 Patient Disposition: Home, Self-Care Activity: as tolerated Diet: regular Discharge Instructions: Please avoid large gathering, wear face coverings in public and practice social distance. Take precautions to avoid falls. Rise slowly from a lying or sitting position. Pause before standing or walking. Continue to use the [place] valve as often as possible to help with secretions Contact your doctor or call 911 and co
== END 2021-06-19 15:20 | disposition home or self-care (01) | DRG 178 ==
LOC: ANHED 11:26 → ANH3MEDSUR 16:16
PROVIDERS: Emergency Medicine; Internal Medicine; Nurse Practitioner; Admitting Provider Family Medicine; Emergency Provider General Practice; PCP Emergency Medicine; Visit Provider Internal Medicine Nephrology
DX: U07.1 COVID-19 (principal); I82.511 Chronic embolism and thrombosis of right femoral vein; J96.11 Chronic respiratory failure with hypoxia; Z99.81 Dependence on supplemental oxygen; J43.9 Emphysema, unspecified; F41.9 Anxiety disorder, unspecified; N40.0 Benign prostatic hyperplasia without lower urinary tract symptoms; K21.9 Gastro-esophageal reflux disease without esophagitis; K44.9 Diaphragmatic hernia without obstruction or gangrene; M19.90 Unspecified osteoarthritis, unspecified site; Z79.899 Other long term (current) drug therapy; Z87.01 Personal history of pneumonia (recurrent); Z87.891 Personal history of nicotine dependence; Z98.42 Cataract extraction status, left eye; Z98.41 Cataract extraction status, right eye; Z98.890 Other specified postprocedural states
CPT/HCPCS: 36415; 36430; 36600; 71045; 71046; 71260; 80048; 80053; 80076; 82375; 82728; 82805; 82948; 83050; 83605; 83615; 83735; 83880; 84132; 84460; 84484; 85025; 85055; 85380; 85610; 85730; 86140; 86900; 86901; 87040; 87426; 87804; 93005; 94003; 94640; 96361; 96365; 96372; 96375; 99285; A9270; C9803; G0378; J1650; J2405; J2930; J7030; J7040; J7512; P9059; Q9967

== ENCOUNTER 2021-11-21 08:02 | Outpatient (CLI) | payer MEDICARE, MEDICAID, SELFPAY ==
[2021-11-21 08:51] LABS: Alanine Aminotransferase 31 U/L (4-50); Albumin Level 4.2 g/dL (3.5-5.1); Alkaline Phosphatase 99 U/L (38-126); Anion Gap 9 mmol/L (8-16); Aspartate Amino Transferase 30 U/L (17-59); Bilirubin,Total 0.4 mg/dL (0.2-1.3); Blood Urea Nitrogen 19 mg/dL (9-20); Calcium 9.4 mg/dL (8.4-10.2); Carbon Dioxide 27 mmol/L (22-30); Chloride 105 mmol/L (98-107); Estimated Glomerular Filt Rate > 60; Glucose 101 mg/dL (65-110); Potassium 3.9 mmol/L (3.4-5.0); Sodium 141 mmol/L (137-145)
[2021-11-24 21:31] LABS: Vitamin D 1,25 (OH)2 Total 45 pg/mL (18-72); Vitamin D2 1,25 (OH)2 <8 pg/mL; Vitamin D3 1,25 (OH)2 45 pg/mL
== END 2021-11-21 08:03 | disposition home or self-care (01) ==
PROVIDERS: PCP Emergency Medicine; Visit Provider Emergency Medicine
DX: E55.9 Vitamin D deficiency, unspecified (principal); Z13.6 Encounter for screening for cardiovascular disorders
CPT/HCPCS: 36415; 80053; 82652

== ENCOUNTER 2021-12-21 10:45 | Outpatient (CLI) | payer MEDICARE, MEDICAID, SELFPAY ==
[2021-12-21 11:22] LABS: Alanine Aminotransferase 29 U/L (4-50); Albumin Level 4.4 g/dL (3.5-5.1); Alkaline Phosphatase 97 U/L (38-126); Anion Gap 9 mmol/L (8-16); Aspartate Amino Transferase 30 U/L (17-59); Bilirubin,Total 0.5 mg/dL (0.2-1.3); Blood Urea Nitrogen 22 mg/dL (9-20); Calcium 9.1 mg/dL (8.4-10.2); Carbon Dioxide 25 mmol/L (22-30); Chloride 106 mmol/L (98-107); Estimated Glomerular Filt Rate > 60; Glucose 159 mg/dL (65-110); Potassium 4.2 mmol/L (3.4-5.0); Sodium 140 mmol/L (137-145)
[2021-12-21 11:52] LABS: Prostate Specific Antigen 0.6 ng/mL (< OR = 4.0)
== END 2021-12-21 10:46 | disposition home or self-care (01) ==
PROVIDERS: PCP Emergency Medicine; Visit Provider Emergency Medicine
DX: Z13.6 Encounter for screening for cardiovascular disorders (principal); Z12.5 Encounter for screening for malignant neoplasm of prostate
CPT/HCPCS: 36415; 80053; 84153; G0103

== ENCOUNTER 2022-01-18 10:56 | Outpatient (CLI) | payer MEDICARE, MEDICAID, SELFPAY ==
[2022-01-18 12:45] LABS: Hemoglobin A1C 5.5 % (<5.7)
== END 2022-01-18 10:57 | disposition home or self-care (01) ==
LOC: ANHLAB 11:00
PROVIDERS: PCP Emergency Medicine; Visit Provider Emergency Medicine
DX: R73.09 Other abnormal glucose (principal)
CPT/HCPCS: 36415; 83036

== ENCOUNTER 2022-02-01 06:33 | Outpatient (CLI) | payer MEDICARE, MEDICAID, SELFPAY ==
--- NOTE | ~2022-02-01 | MR_ITS ---
EXAMINATION: MR knee RT wo con DATE: 02/01/2022 08:04 INDICATION: Right knee pain TECHNIQUE: Magnetic resonance imaging (MRI) of the right knee was performed without intravenous contr ast. Sequences included coronal PD-weighted FSE, coronal PD-weighted FS FSE, sagittal T2-weighted FS E, sagittal PD-weighted FS FSE and axial PD weighted fat saturated FSE. COMPARISON: None. FINDINGS: Medial compartment: Complex tear of the medial meniscus including a radial tear plane at the junction of the body and pos terior horn and additional tear with osteolysis meniscal tissue from the small remaining posterior ho rn. Extensive cartilage loss along the weightbearing medial femoral condyle and medial tibial plateau which appears to involve greater than 50% the cartilage thickness and in places likely reaching full /near full-thickness. There is some cortical irregularity and suggestion of some early remodeling of the articular cortex at the medial aspect of the medial tibial plateau and juxtaposed medial rim of t he anterior weightbearing medial femoral condyle. Lateral compartment: Lateral meniscal tear extending to contact the inferior articular surface of the body and posterior h orn which is of indeterminate morphology, likely either complex or longitudinal horizontal. There is para meniscal cyst which appears to arise at the junction of the anterior horn and body and which ext ends approximately 2 cm medial to lateral along the peripheral rim of the anterior horn. Deep ulcerat ion at the central weightbearing lateral femoral condyle where it involves greater than 50% of the ca rtilage thickness and more posteriorly where it appears deeper with small central subchondral osteoph yte. Additional deep chondral fissuring along the anterior weightbearing lateral femoral condyle and along the lateral tibial plateau without degenerative subchondral changes. Patellofemoral compartment: Deep chondral fissuring without degenerative subchondral changes extending along the caudal third of the patellar apical ridge and lateral facet. Additional small region of shallow chondral ulceration a t the cephalad aspect of the apical ridge. Additional deep chondral ulceration at the trochlear with underlying cortical irregularity and small central subchondral osteophytes at the caudal aspect of th e trochlear groove, medial trochlea and medial aspect of the lateral trochlea. Ligaments and tendons: Anterior and posterior cruciate ligaments are normal. The medial collateral ligament and fibular trinidad ateral ligament complex are normal. Enthesophyte and mild tendinopathy at the patellar insertion of t he distal quadriceps tendon. Mild proximal patellar tendinopathy. The visualized medial and lateral h amstring tendons as well as the iliotibial band are normal. Fluid: Physiologic amount of fluid in the joint space. No loose osteochondral bodies identified. Osseous/other: Normal marrow signal. No fracture or abnormal marrow replacing process. Moderate size marginal osteop hytes in all 3 compartments. IMPRESSION: 1. Medial and lateral meniscal tears. 2. Tricompartmental osteoarthritis, severe in the medial compartment, mild to moderate in the patello femoral compartment and mild in the lateral compartment with regions of moderate and high-grade chond romalacia in all 3 compartments. Reviewed, dictated and finalized at location A. IMPRESSION: 1. Medial and lateral meniscal tears. 2. Tricompartmental osteoarthritis, severe in the medial compartment, mild to m oderate in the patellofemoral compartment and mild in the lateral compartment w ith regions of moderate and high-grade chondromalacia in all 3 compartments.
== END 2022-02-01 06:34 | disposition home or self-care (01) ==
LOC: ANHIMG 06:38
PROVIDERS: PCP Emergency Medicine; Visit Provider Nurse Practitioner Family
DX: M25.561 Pain in right knee (principal); S83.241A Other tear of medial meniscus, current injury, right knee, initial encounter; S83.281A Other tear of lateral meniscus, current injury, right knee, initial encounter; M17.11 Unilateral primary osteoarthritis, right knee; M94.261 Chondromalacia, right knee
CPT/HCPCS: 73721

== ENCOUNTER 2022-02-20 08:15 | Outpatient (CLI) | payer MEDICARE, MEDICAID, SELFPAY ==
--- NOTE | ~2022-02-20 | XR_ITS ---
XR_[id number] DATE: 02/20/2022 09:10 INDICATION: Increasing frequency of headaches TECHNIQUE: AP, open-mouth, lateral views COMPARISON: None FINDINGS: There is straightening of the cervical spine which may be due to muscle spasm. C1 and C2 are normally aligned and the odontoid process is intact. There is moderately prominent degenerative disc disease at C4-5, moderately severe degenerative disc disease at C5-6 and C6-7. C7 is not adequately demonstrated due to superimposed shoulders on lateral view. Swimmer's projection is recommended for more complete examination. IMPRESSION: Incomplete examination; swimmer's lateral views required Cervical spondylosis Reviewed, dictated and finalized at Location [facility]. Reviewed, dictated and finalized at location B.
--- NOTE | ~2022-02-20 | MR_ITS ---
EXAMINATION: MR brain/brain stem wo con DATE: 02/20/2022 09:05 INDICATION: Headache. TECHNIQUE: Magnetic resonance imaging (MRI) of the brain and brainstem was performed without intraven ous contrast. Sequences included sagittal and axial T1-weighted SE, axial diffusion-weighted FS SE, a xial T2*-weighted GRE, axial T2-weighted FLAIR Propeller, and axial T2-weighted Propeller. Apparent d iffusion coefficient (ADC) maps were created. COMPARISON: None. FINDINGS: Study is extremely limited due to lack of axial T1, gradient and T2-weighted sequences due to patient inability to continue examination. Mild generalized atrophy. There are scattered mild shivani ventricular and subcortical white matter changes, most likely related to small vessel ischemic diseas e (microangiopathy). No acute infarction is identified. No ventriculomegaly or midline shift. There i s a chronic lacunar infarction of the baron. IMPRESSION: 1. No acute infarction identified. 2: Chronic infarction of the baron. 3: Chronic age-related findings. 4: Extremely limited study. Reviewed, dictated and finalized at location A.
== END 2022-02-20 08:16 | disposition home or self-care (01) ==
PROVIDERS: PCP Emergency Medicine; Visit Provider Emergency Medicine
DX: R51.9 Headache, unspecified (principal); I63.89 Other cerebral infarction; M47.812 Spondylosis without myelopathy or radiculopathy, cervical region
CPT/HCPCS: 70551; 72040

== ENCOUNTER 2022-03-17 18:26 | Emergency (ER) | payer MEDICARE, MEDICAID, SELFPAY ==
--- NOTE | ~2022-03-17 | XR_ITS ---
EXAMINATION: XR chest 1V portable Exam Date/Time: 03/17/2022 19:35 CDT HISTORY: sob, chest pain WORSING, HX COPD, HX RESP FAILURE Comparison: 06/16/2021. RESULT: Lines, tubes, and devices: Right upper lobe endobronchial valves. Lungs and pleura: Chronic right upper lobe atelectasis, otherwise clear. Cardiomediastinal silhouette: Stable cardiomediastinal silhouette. Other: No acute osseous or upper abdominal finding. IMPRESSION: No acute cardiopulmonary process. Reviewed, dictated and finalized at location K.
--- NOTE | 2022-03-17 18:27 | ECG_ITS ---
Measurements Intervals [place] Rate: 127 P: 48 ID: [id number] QRS: 43 QRSD: 76 T: 67 QT: 277 QTc: 404 Interpretive Statements SINUS TACHYCARDIA ABNORMAL RHYTHM ECG COMPARED TO ECG 06/14/2021 10:45:02 NO SIGNIFICANT CHANGES Electronically Signed On 03-18-2022 8:54:27 CDT by Jennifer Ingram M.D.
[2022-03-17 18:30] VITALS: BP 140/98; PULSE 131; RESP 14; TEMP 36.8; O2SAT 96
[2022-03-17 18:56] LABS: Hematocrit 45.1 % (42.0-52.0); Hemoglobin 14.2 g/dL (14.0-18.0); Immature Granulocyte Percent A 0.4 % (0-0.5); Lymphocytes Percent Auto 7.8 % (18.3-44.2); Mean Corpuscular HGB Conc 31.5 g/dl (32-36); Mean Corpuscular Hemoglobin 29.4 pg (26-34); Mean Corpuscular Volume 93.4 fl (80-100); Mean Platelet Volume 10.2 fl (7.4-10.4); Monocytes Percent Auto 4.3 % (2.6-8.5); Neutrophils Percent Auto 86.3 % (45.5-73.1); Platelet Count Result 343 k/mm3 (150-375); Red Blood Count 4.83 M/mm3 (4.6-6.20); Red Cell Distribution Width 14.8 % (11.5-14.5); White Blood Count 7.7 K/mm3 (4.5-10.0)
[2022-03-17 18:57] LABS: Basophils Absolute Auto 0.1 K/mm3 (0.0-0.1); Basophils Percent Auto 0.6 % (0.2-1.2); Eosinophils Absolute Auto 0.1 K/mm3 (0-0.3); Eosinophils Percent Auto 0.6 % (0-4.4); Immature Granulocyte Absolute 0.03 K/mm3 (0.00-0.031); Monocytes Absolute Auto 0.3 K/mm3 (0.1-0.6); Neutrophils Absolute Auto 6.7 K/mm3 (1.3-6.7)
[2022-03-17 19:06] LABS: INR 1.1; Prothrombin Time 13.3 Seconds (11.1-14.7)
[2022-03-17 19:07] LABS: Alanine Aminotransferase 31 U/L (6-50); Albumin Level 4.3 g/dL (3.5-5.1); Alkaline Phosphatase 108 U/L (38-126); Anion Gap 6 mmol/L (8-16); Aspartate Amino Transferase 36 U/L (17-59); Bilirubin,Total 0.3 mg/dL (0.2-1.3); Blood Urea Nitrogen 21 mg/dL (9-20); Calcium 9.5 mg/dL (8.4-10.2); Carbon Dioxide 26 mmol/L (22-30); Chloride 110 mmol/L (98-107); Estimated Glomerular Filt Rate > 60; Glucose 145 mg/dL (65-110); Lipase 58 U/L (23-300); Partial Thromboplastin Time 29.8 SECONDS (22.3-36.8); Potassium 4.6 mmol/L (3.4-5.0); Sodium 142 mmol/L (137-145)
[2022-03-17 19:19] LABS: Troponin I < 0.012 ng/mL (0.000-0.034)
[2022-03-17] MEDS: ASPIRIN 81 MG CHEWABLE TABLET 324 MG PO (19:28)
--- NOTE | 2022-03-17 19:39 | ED.CHESTPAIN ---
HPI - Chest Pain General Chief Complaint: Chest Pain Stated Complaint: sob, shingles Time Seen by Provider: 03/17/22 18:56 Source: patient Mode of arrival: ambulatory Limitations: no limitations History of Present Illness HPI narrative: This is a 62 year old male with history of chronic respiratory failure on 3 L NC, COPD who presents for evaluation of chest pain and shortness of breath. Patient has been having issues with nasal congestion with postnasal drainage. He states he is having episodes in which he gets short of breath because he feels like phlegm is stuck in his throat. He also thinks that something is wrong with his home oxygen concentrator. He states he was so short of breath that he was unable talk and walk at home. He felt better once he got onto his portable oxygen and he also feels better in ER. He also reports right chest pain that has been occurring intermittently for weeks. He was seen by Dr. Ibarra this past week and he had negative stress test. He describes his pain has heart pounding sensation that last a few minutes. He will feel this pain when he is having difficulty breathing. He denies fever, chills, worsening cough, vomiting or diarrhea. He also denies leg edema. He also reports he has been dealing with right flank shingles rash for 1 week, and he is currently taking antiviral. Related Data Home Medications Medication Instructions Recorded Confirmed calcium carbonate 500 mg-vitamin 1 tablet PO DAILY 07/06/20 03/13/22 D3 5 mcg (200 unit) tablet (Oyster Shell Calcium-Vitamin D3) omeprazole 20 mg capsule,delayed 20 mg PO DAILY 07/06/20 03/13/22 release hydrocodone 5 mg-acetaminophen 325 5 - 325 tablet PO Q4-6H PRN Pain 01/03/21 03/13/22 mg tablet aspirin 81 mg tablet 81 mg PO DAILY 02/02/21 03/13/22 Adult One Daily Multivitamin 1 tab-cap PO DAILY 06/14/21 03/13/22 magnesium oxide 400 mg PO DAILY 06/14/21 03/13/22 multivitamin with minerals 1 tablet PO DAILY 06/14/21 03/13/22 latanoprost 0.005 % eye drops 1 drp EACH EYE HS 06/15/21 03/13/22 Allergies Allergy/AdvReac Type Severity Reaction Status Date / Time oxycodone Allergy Mild Itching Verified 03/17/22 18:50 Review of Systems Review of Systems: All systems reviewed & are unremarkable except as noted in HPI and below Constitutional: Constitutional: Denies chills, Denies fatigue and Denies fever(s) ENT: Denies dizziness, Reports headache(s), Reports nasal congestion, Reports post nasal drip and Denies sore throat Cardiovascular: Cardiovascular: Reports chest pain, Reports rapid heart rate (chronic) and Denies radiating jaw, neck or arm pain Respiratory: Respiratory: Reports chest congestion, Reports cough, Reports dyspnea and Reports wheezing Gastrointestinal: Gastrointestinal: Denies abdominal pain, Denies bloating, Denies nausea and Denies vomiting Musculoskeletal: Musculoskeletal: Denies back pain [facility] Past Medical History Medical History BPH (benign prostatic hyperplasia) Chronic deep vein thrombosis (DVT) Linear echogenic filling defect in the right femoral vein, likely chronic thrombus on venous dopplers 11/2020. Chronic respiratory failure with hypoxia, on home oxygen therapy COPD with emphysema Chronic steroid therapy, 10 milligrams prednisone daily. Gastroesophageal reflux disease Hiatal hernia Osteoarthritis Pneumonia (~2019) Surgical History Surgical History H/O colonoscopy History of bilateral cataract extraction History of lung surgery Family History Family History Father Acute myocardial infarction Congestive heart failure Lung cancer Mother Diabetes mellitus Dementia Sibling Diabetes mellitus Lung cancer Social History Social History Social History:
[2022-03-17 19:53] LABS: Alveolar/Arterial O2 Gradient 85.9 mmHg; Base Excess ABG -1.1 mEq/l (+/-2.0); Carboxyhemoglobin 0.8 % THb (0-2.0); Fractional Inspired Oxygen 28 %; HCO3 ABG 22.5 mEq/l (22.0-26.0); Methemoglobin ABG 0.1 %THb (0-1.5); Oxygen Content ABG 19.9 %vol (16.0-22.0); Oxygen Saturation ABG 95.3 % (95.0-100.0); Oxyhemoglobin 94.1 % THb (90.0-100.0); PCO2 ABG 34.3 mmHg (35.0-45.0); PO2 ABG 73.3 mmHg (80.0-100.0); PO2 FiO2 Ratio Arterial Blood 2.62 %; pH ABG 7.434 (7.350-7.450)
[2022-03-17 19:54] LABS: Device NASAL CANNULA; Modified Allen's Test Pass; Site Drawn RIGHT RADIAL
[2022-03-17 19:57] LABS: D Dimer 0.26 ug/mL (<0.48)
[2022-03-17] MEDS: SODIUM CHLORIDE 0.9% IV 1,000 ML 999 ML IV CONT (20:07)
[2022-03-17] MEDS: ALBUTEROL SULFATE NEB 2.5 MG/3 ML INH 5 MG INHALATION (20:46)
[2022-03-17 20:47] VITALS: PULSE 104; RESP 20
[2022-03-17] MEDS: IPRATROPIUM BR 0.02% INH SOLN 0.5 MG/2.5 ML VIAL INHALATION (20:47)
[2022-03-17 20:52] LABS: SARS-CoV-2 RNA PCR Negative
[2022-03-17 20:57] VITALS: PULSE 104; RESP 20
[2022-03-17 21:10] VITALS: PULSE 108; RESP 18; O2SAT 98
[2022-03-17 21:34] VITALS: O2SAT 97
[2022-03-17 21:45] LABS: Troponin I < 0.012 ng/mL (0.000-0.034)
[2022-03-17 22:20] VITALS: BP 119/97; PULSE 120; RESP 20; O2SAT 95
== END 2022-03-17 22:15 | disposition home or self-care (01) ==
PROVIDERS: Emergency Medicine; Emergency Provider General Practice; PCP Emergency Medicine
DX: J43.9 Emphysema, unspecified (principal); R07.89 Other chest pain; J96.11 Chronic respiratory failure with hypoxia; Z20.822 Contact with and (suspected) exposure to COVID-19; M19.90 Unspecified osteoarthritis, unspecified site; K21.9 Gastro-esophageal reflux disease without esophagitis; N40.0 Benign prostatic hyperplasia without lower urinary tract symptoms; Z99.81 Dependence on supplemental oxygen; Z87.01 Personal history of pneumonia (recurrent); Z98.42 Cataract extraction status, left eye; Z98.41 Cataract extraction status, right eye; Z87.891 Personal history of nicotine dependence
CPT/HCPCS: 36415; 36600; 71045; 80053; 82375; 82805; 83050; 83690; 84484; 85025; 85380; 85610; 85730; 93005; 94640; 96360; 99284; A9270; C9803; J7030; U0003; U0005

== ENCOUNTER 2022-03-18 17:05 | Inpatient (IN) | payer MEDICARE, MEDICAID, SELFPAY ==
[2022-03-18] VITALS (18 sets, daily range): BP systolic 121–152; BP diastolic 81–104; PULSE 101–127; RESP 11–23; TEMP 36.1–36.7; O2SAT 94–99
--- NOTE | ~2022-03-18 | XR_ITS ---
EXAMINATION: XR chest 1V portable Exam Date/Time: 03/18/2022 17:37 CDT HISTORY: cp, sob Comparison: 03/17/2022. RESULT: Lines, tubes, and devices: Stable endobronchial valves. Lungs and pleura: Stable right upper lobe atelectasis. Cardiomediastinal silhouette: Stable cardiomediastinal silhouette. Other: No acute osseous or upper abdominal finding. IMPRESSION: No acute cardiopulmonary process. Reviewed, dictated and finalized at location K.
--- NOTE | 2022-03-18 17:24 | ECG_ITS ---
Measurements Intervals [place] Rate: 108 P: 56 NM: 143 QRS: 15 QRSD: 103 T: 72 QT: 319 QTc: 428 Interpretive Statements SINUS TACHYCARDIA ABNORMAL RHYTHM ECG COMPARED TO ECG 03/17/2022 18:30:20 NO SIGNIFICANT CHANGES Electronically Signed On 03-19-2022 15:29:21 CDT by Fercho Manley MD
[2022-03-18 17:43] LABS: Basophils Absolute Auto 0.1 K/mm3 (0.0-0.1); Basophils Percent Auto 0.6 % (0.2-1.2); Eosinophils Absolute Auto 0.1 K/mm3 (0-0.3); Eosinophils Percent Auto 0.6 % (0-4.4); Hematocrit 43.8 % (42.0-52.0); Hemoglobin 14.1 g/dL (14.0-18.0); Immature Granulocyte Absolute 0.03 K/mm3 (0.00-0.031); Immature Granulocyte Percent A 0.4 % (0-0.5); Lymphocytes Percent Auto 13.8 % (18.3-44.2); Mean Corpuscular HGB Conc 32.2 g/dl (32-36); Mean Corpuscular Hemoglobin 29.9 pg (26-34); Mean Platelet Volume 10.7 fl (7.4-10.4); Monocytes Absolute Auto 0.8 K/mm3 (0.1-0.6); Monocytes Percent Auto 9.6 % (2.6-8.5); Platelet Count Result 378 k/mm3 (150-375); Red Blood Count 4.71 M/mm3 (4.6-6.20); Red Cell Distribution Width 14.6 % (11.5-14.5)
[2022-03-18 17:56] LABS: INR 1.1; Prothrombin Time 13.3 Seconds (11.1-14.7)
[2022-03-18 17:57] LABS: Partial Thromboplastin Time 27.8 SECONDS (22.3-36.8)
[2022-03-18 18:26] LABS: Chloride 106 mmol/L (98-107)
--- NOTE | 2022-03-18 18:30 | ED.CHESTPAIN ---
HPI - Chest Pain General Chief Complaint: Chest Pain <Zulay Mendoza PA-C - Last Filed: 03/18/22 21:30> Stated Complaint: sob, cp <Zulay Mendoza PA-C - Last Filed: 03/18/22 21:30> Time Seen by Provider: 03/18/22 17:29 <Zulay Mendoza PA-C - Last Filed: 03/18/22 21:30> Source: patient <JC Arevalo Last Filed: 03/18/22 21:30> Mode of arrival: wheelchair <JC Arevalo Last Filed: 03/18/22 21:30> Limitations: no limitations <JC Arevalo Last Filed: 03/18/22 21:30> History of Present Illness HPI narrative: This is a 62-year-old male that presents to the emergency department for worsening mucus production. Reports over the last couple of days he has had worsening shortness of breath and problems with mucus. Reports he feels like he cannot cough it up. It feels stuck in his throat. He had an episode of chest pain earlier today that was achy in nature. This was in the area of his distribution of current shingles. He was evaluated in the ED last night for the same complaint. Denies fevers. <Zulay Mendoza PA-C - Last Filed: 03/18/22 21:30> Related Data Home Medications: Home Medications Medication Instructions Recorded Confirmed calcium carbonate 500 mg-vitamin 1 tablet PO DAILY 07/06/20 03/13/22 D3 5 mcg (200 unit) tablet (Oyster Shell Calcium-Vitamin D3) omeprazole 20 mg capsule,delayed 20 mg PO DAILY 07/06/20 03/13/22 release hydrocodone 5 mg-acetaminophen 325 5 - 325 tablet PO Q4-6H PRN Pain 01/03/21 03/13/22 mg tablet aspirin 81 mg tablet 81 mg PO DAILY 02/02/21 03/13/22 Adult One Daily Multivitamin 1 tab-cap PO DAILY 06/14/21 03/13/22 magnesium oxide 400 mg PO DAILY 06/14/21 03/13/22 multivitamin with minerals 1 tablet PO DAILY 06/14/21 03/13/22 latanoprost 0.005 % eye drops 1 drp EACH EYE HS 06/15/21 03/13/22 <Zulay Mendoza PA-C - Last Filed: 03/18/22 21:30> Allergies/Adverse Reactions: Allergies Allergy/AdvReac Type Severity Reaction Status Date / Time oxycodone Allergy Mild Itching Verified 03/17/22 18:50 <Zulay Mendoza PA-C - Last Filed: 03/18/22 21:30> Review of Systems Review of Systems: CONSTITUTIONAL: Denies fever ENT: Reports congestion CARDIOVASCULAR: Reports chest pain RESPIRATORY: Reports dyspnea. <JC Arevalo Last Filed: 03/18/22 21:30> All systems reviewed & are unremarkable except as noted in HPI and below <Zulay Mendoza PA-C - Last Filed: 03/18/22 21:30> [facility] Past Medical History Medical History: Medical History BPH (benign prostatic hyperplasia) Chronic deep vein thrombosis (DVT) Linear echogenic filling defect in the right femoral vein, likely chronic thrombus on venous dopplers 11/2020. Chronic respiratory failure with hypoxia, on home oxygen therapy COPD with emphysema Chronic steroid therapy, 10 milligrams prednisone daily. Gastroesophageal reflux disease Hiatal hernia Osteoarthritis Pneumonia (~2019) <Zulay Mendoza PA-C - Last Filed: 03/18/22 21:30> Surgical History Surgical History: Surgical History H/O colonoscopy History of bilateral cataract extraction History of lung surgery <JC Arevalo Last Filed: 03/18/22 21:30> Family History Family History: Family History Father Acute myocardial infarction Congestive heart failure Lung cancer Mother Diabetes mellitus Dementia Sibling Diabetes mellitus Lung cancer <JC Arevalo Last Filed: 03/18/22 21:30> Social History Social History: Social History Social History: Surrogate decision maker: [place], . Code status: Full code. Smoking packs per day: 1 Smoking cigarettes per day: 20.0 Years smok
[2022-03-18] MEDS: IPRATROPIUM BR 0.02% INH SOLN 0.5 MG/2.5 ML VIAL INHALATION ×2 (18:33→20:09)
[2022-03-18] MEDS: ALBUTEROL SULFATE NEB 2.5 MG/0.5 ML INH 5 MG (18:33)
[2022-03-18 18:35] LABS: Alanine Aminotransferase 33 U/L (6-50); Albumin Level 4.6 g/dL (3.5-5.1); Alkaline Phosphatase 107 U/L (38-126); Anion Gap 10 mmol/L (8-16); Aspartate Amino Transferase 38 U/L (17-59); Bilirubin,Total 0.4 mg/dL (0.2-1.3); Blood Urea Nitrogen 18 mg/dL (9-20); Calcium 9.5 mg/dL (8.4-10.2); Carbon Dioxide 23 mmol/L (22-30); Estimated CRCL calculation 85 ml/min; Estimated Glomerular Filt Rate > 60; Glucose 106 mg/dL (65-110); Lipase 56 U/L (23-300); Potassium 4.1 mmol/L (3.4-5.0); Sodium 139 mmol/L (137-145)
[2022-03-18 18:40] LABS: Troponin I < 0.012 ng/mL (0.000-0.034)
--- NOTE | 2022-03-18 19:33 | PM.IMHP ---
H&P: HPI History of Present Illness Date/Time: 03/18/22 19:33 Chief Complaint: Shortness of breath. Narrative: This is a 62-year-old male with past medical history significant for COPD/emphysema, chronic hypoxic respiratory failure on 3 L by nasal cannula at home, gastroesophageal reflux disease, former tobacco user. Patient presents to the emergency room for the 2nd time today after he was seen and evaluated the night before and sent home however returns today with same complains of worsening shortness of breath with productive cough of sputum yellowish in color, patient is also getting over shingles case, denies any fevers, rigors, chills, nausea, vomiting, abdominal pain, diarrhea, states that he has been taking his Mucinex for over a year now that his sputum is very thick and difficult to expectorate. Patient denies any leg pain or leg swelling, no chest pain, no dizziness, no near syncope, no syncope, no lightheadedness. Preliminary workup was significant for chest x-ray with no acute cardiopulmonary abnormalities. Patient is being admitted for further evaluation, management and treatment. Review of Systems Review of Systems: Shortness of breath, change in sputum quality, cough. Constitutional: Constitutional: Denies chills and Denies fever(s) Eyes: Eyes: Denies change in vision ENT: Denies dysphagia, Denies vertigo, Denies dizziness and Denies odynophagia Cardiovascular: Cardiovascular: Denies chest pain, Denies lightheadedness, Denies palpitations and Denies dyspnea on exertion Respiratory: Respiratory: Reports change in phlegm color, Reports cough, Reports excessive phlegm production and Reports dyspnea Gastrointestinal: Gastrointestinal: Denies abdominal pain, Denies dyspepsia, Denies heartburn, Denies nausea and Denies vomiting Genitourinary: Genitourinary: Denies dysuria Musculoskeletal: Musculoskeletal: Denies arthralgias and Denies joint swelling Integumentary/Breasts: Skin/Breast: Denies rash Neurologic: Denies focal weakness and Denies Sensory deficit (Neuro) Psychiatric: Psychiatric: Reports no additional psychiatric complaints and Reports as per HPI Endocrine: Endocrine: Denies cold intolerance, Denies fatigue, Denies flushing, Denies heat intolerance, Denies polyphagia, Denies polydipsia and Denies palpitations Hematologic/Lymphatic: Hematologic/Lymphatic: Reports no additional hematologic/lymphatic complaints and Reports as per HPI [facility] Past Medical History Medical History (Updated 03/19/22 @ 02:11 by Naida Prasad MD) BPH (benign prostatic hyperplasia) Chronic deep vein thrombosis (DVT) Linear echogenic filling defect in the right femoral vein, likely chronic thrombus on venous dopplers 11/2020. Chronic respiratory failure with hypoxia, on home oxygen therapy COPD with emphysema Chronic steroid therapy, 10 milligrams prednisone daily. Gastroesophageal reflux disease Hiatal hernia Osteoarthritis Pneumonia (~2019) Surgical History Surgical History H/O colonoscopy History of bilateral cataract extraction History of lung surgery Family History Family History Father Acute myocardial infarction Congestive heart failure Lung cancer Mother Diabetes mellitus Dementia Sibling Diabetes mellitus Lung cancer Social History Social History Social History: Surrogate decision maker: [place], . Code status: Full code. 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
[2022-03-18] MEDS: ALBUTEROL SULFATE NEB 2.5 MG/3 ML INH 5 MG INHALATION ×2 (20:03→20:09)
[2022-03-18] MEDS: methylPREDNISolone SOD SUCC 125 MG VIAL IV PUSH (20:11)
[2022-03-18] MEDS: SODIUM CHLORIDE 0.9% IV 500 ML 999 ML IV CONT (20:12)
[2022-03-18] MEDS: ASPIRIN 81 MG CHEWABLE TABLET 324 MG PO (20:12)
[2022-03-18] MEDS: LORazepam (*CRX) 0.5 MG TABLET PO (21:28)
--- NOTE | 2022-03-18 22:03 | PC.NURSE ---
Patient care report called to GORDON Tovar. All questions answered at this time.
--- NOTE | 2022-03-18 23:20 | ADMGEN ---
This patient, [place]ley [place], was admitted to 3 [facility] Surg Room 319-01. Patient/family oriented to hospital policies and general routines including ID bracelet, bed and alarms, visiting hours, pain management, procedures, bathroom and other care routines, personal items, smoking policy, room service/diet, and visiting hours. Information on how to activate the Rapid Response Team has been discussed. Patient/Family are encouraged to report perceived risks to care and to ask questions if they do not understand what they are told or what they should do.
[2022-03-19] VITALS (14 sets, daily range): BP systolic 117–140; BP diastolic 78–100; PULSE 90–123; RESP 18–24; TEMP 36.1–36.7; O2SAT 94–97
[2022-03-19 00:04] LABS: Troponin I < 0.012 ng/mL (0.000-0.034)
[2022-03-19] MEDS: methylPREDNISolone SOD SUCC 125 MG VIAL 60 MG IV PUSH ×2 (00:50→06:02)
[2022-03-19] MEDS: LATANOPROST 0.005% OP SOLN 2.5 ML BTL 1 DROP EACH EYE ×2 (01:34→21:58)
[2022-03-19] MEDS: ALPRAZolam (*CRX) 0.125 MG TABLET PO (01:35)
[2022-03-19] MEDS: MELATONIN 5 MG TABLET 10 MG PO ×2 (01:35→22:01)
[2022-03-19] MEDS: HYDROcodone/acetaminophen (*CRX) 5-325 MG TABLET 1 TAB PO ×3 (01:35→22:13)
--- NOTE | 2022-03-19 02:07 | PC.NURSE ---
03/19/22 0200 pt in room coughing up mucous. bp elev. contacted mt no new order given for elev bp. pt denies taking bp meds at home.
[2022-03-19] MEDS: ACETYLCYSTEINE 20% INHAL SOLN 800 MG/4 ML VIAL 200 MG INHALATION ×4 (02:19→20:34)
[2022-03-19] MEDS: ALBUTEROL SULFATE NEB 2.5 MG/3 ML INH 5 MG INHALATION ×4 (02:19→20:34)
[2022-03-19] MEDS: IPRATROPIUM BR 0.02% INH SOLN 0.5 MG/2.5 ML VIAL INHALATION ×4 (02:20→20:34)
--- NOTE | 2022-03-19 09:09 | PM.CNPUL ---
Assessment and Plan Assessment and plan (1) Acute exacerbation of chronic obstructive pulmonary disease: Code(s): J44.1 - Chronic obstructive pulmonary disease with (acute) exacerbation Status: Acute Assessment and Plan: this 62-year-old man has had very severe COPD with FEV1 in the range of around 30% predicted, a history of chronic hypoxemic hypercapnic respiratory failure with frequent COPD exacerbations, chronically on low-dose prednisone for COPD exacerbations presented with shortness of breath and also difficulty clearing bronchial secretions and nasal congestion. Patient's respiratory status seems to have improved. He had no evidence of hypercapnic respiratory failure when presented to the emergency room 2 days ago. I suspect the patient is back at his baseline respiratory status. Plan: I have discontinued the IV steroids. The patient will continue with prednisone 40 mg p.o. daily for 5 days after which time he will resume his daily prednisone 10 mg daily. I would continue with short-acting bronchodilators and IV levofloxacin for now. Regarding the report of a right upper lobe lung nodule will request previous CT from [facility]. I will follow the patient along with you. (2) Shingles: Code(s): B02.9 - Zoster without complications Status: Acute (3) Obesity (BMI 30-39.9): Code(s): E66.9 - Obesity, unspecified Status: Acute (4) Chronic respiratory failure with hypoxia, on home oxygen therapy: Code(s): J96.11 - Chronic respiratory failure with hypoxia; Z99.81 - Dependence on supplemental oxygen Status: Chronic (5) Former smoker: Code(s): Z87.891 - Personal history of nicotine dependence Status: Acute History of Present Illness History of Present Illness Consult date: 03/19/22 Chief complaint: COPD Exacerbation Narrative: This 62-year-old man presented with shortness of breath. The patient has a history of very severe COPD, hypoxemic hypercapnic respiratory failure, on home ventilatory support via trilogy, status post endobronchial valve implantation for lung volume reduction, with history of recurrent COPD exacerbations on multiple maintenance bronchodilators, also chronically on low-dose prednisone presumably for COPD exacerbations. I the patient was in his usual state of health until approximately 2 days ago when he presented to the emergency room complaining of nasal stuffiness mild cough and inability to clear bronchial secretions. He had no fever chills hemoptysis or worsening of his chronic shortness of breath. The patient was also complaining of of shortness of breath at home most likely related to malfunctioning oxygen concentrator. He felt better after his oxygen concentrator was replaced by his [employer]. Evaluation in the emergency room showed that the patient was not in hypercapnic respiratory failure. Patient was discharged home to return with same complaints at a later. Patient has been treated with IV antibiotics, IV steroids and short-acting bronchodilators for COPD exacerbation. Over the last 12 hours his respiratory status has improved. Upon questioning he denied having orthopnea chest pain palpitations hemoptysis fever chills. Again his main complaint was difficulty clearing bronchial secretions, nasal congestion. He has had posterior thoracic back pain related to herpes zoster infection for approximately 2 weeks. He has been on treatment for herpes zoster infection. He he has had chronic knee pain for which he has been on pain medications. Patient has had history of endobronchial valve implantation for lung volume reduction. post EBV implantation the target right upper lobe has been atelectatic. past medical history is also significant for tobacco use, history of cocaine use, severe obesity. 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 The available chest
[2022-03-19] MEDS: guaiFENesin/DEXTROMETHORPHAN 10 ML UDC PO ×2 (10:06→23:33)
[2022-03-19] MEDS: ALPRAZolam (*CRX) 0.5 MG TABLET PO ×2 (10:06→22:13)
[2022-03-19] MEDS: NEOMYCIN/POLYMYXIN/BACITRACIN OINTMENT 15 GM TUBE 1 APPLIC TOPICAL ×2 (10:08→17:32)
[2022-03-19] MEDS: MAGNESIUM OXIDE 400 MG TABLET PO (10:09)
[2022-03-19] MEDS: ROFLUMILAST 500 MCG TABLET PO (10:09)
[2022-03-19] MEDS: TERBINAFINE HCL 250 MG TABLET PO (10:09)
[2022-03-19] MEDS: THERAPEUTIC MULTIVITAMINS/MINERALS TAB (*BKC) 1 TABLET PO (10:09)
[2022-03-19] MEDS: ACYCLOVIR 400 MG TABLET 800 MG PO ×4 (10:09→21:59)
[2022-03-19] MEDS: AZELASTINE HCL NASAL 0.1% 137 MCG/SPR 30 ML BTL 1 SPRAY NASAL ×2 (10:10→21:58)
[2022-03-19] MEDS: TAMSULOSIN HCL 0.4 MG CAPSULE PO (10:10)
[2022-03-19] MEDS: ASPIRIN 81 MG CHEWABLE TABLET PO (10:10)
[2022-03-19] MEDS: IPRATROPIUM NASAL SPRAY 0.03% 15 ML BOTTLE 2 SPRAY NASAL (10:10)
[2022-03-19] MEDS: MONTELUKAST SODIUM 10 MG TABLET PO (10:10)
[2022-03-19] MEDS: LORATADINE 10 MG TABLET PO (10:10)
[2022-03-19] MEDS: PANTOPRAZOLE 40 MG TABLET PO (10:10)
--- NOTE | 2022-03-19 10:10 | PM.IMPN ---
Progress Note: A&P Assessment and Plan (1) Acute exacerbation of chronic obstructive pulmonary disease: Code(s): J44.1 - Chronic obstructive pulmonary disease with (acute) exacerbation Status: Acute (2) Shingles: Code(s): B02.9 - Zoster without complications Status: Acute (3) Chronic deep vein thrombosis (DVT): Qualifiers: Affected thrombotic vein of extremity: unspecified vein of extremity DVT location: lower extremity Laterality: unspecified laterality Qualified Code(s): I82.509 - Chronic embolism and thrombosis of unspecified deep veins of unspecified lower extremity Code(s): I82.509 - Chronic embolism and thrombosis of unspecified deep veins of unspecified lower extremity Status: Acute (4) Gastroesophageal reflux disease: Code(s): K21.9 - Gastro-esophageal reflux disease without esophagitis Status: Acute (5) DJD (degenerative joint disease): Qualifiers: Osteoarthritis location: multiple joints Osteoarthritis type: primary Qualified Code(s): M89.49 - Other hypertrophic osteoarthropathy, multiple sites Code(s): M19.90 - Unspecified osteoarthritis, unspecified site Status: Acute (6) Chronic respiratory failure: Code(s): J96.10 - Chronic respiratory failure, unspecified whether with hypoxia or hypercapnia Status: Acute Plan 03/18/22 Admit to regular medical floor Systemic steroids Schedule breathing treatments Antibiotics Cultures in progress Local care On acyclovir Continue aspirin PPI as needed Tylenol as needed Continue supplemental oxygen 3 L by nasal cannula 03/19/22 Appears to be at baseline respiratory function Per history concerned that patient is having improper emptying of the esophagus Consult Dr. Ruiz Pulmonology following for advanced COPD Continue home O2 nasal supplement of 3 L Patient has been placed on p.o. prednisone Remains on Levaquin Subjective Date/time seen: 03/19/22 10:10 Doing okay patient states that he feels like his food gets stuck in his throat and chest and then he starts to cough and he is able to cough up sputum food does not return but he never has the sensation that food passes completely to his abdomen. He additionally states that he has history of esophageal dilation x2 with Dr. Ruiz. pt is on baseline 3L NC will consult GI Exam Narrative: GENERAL APPEARANCE: Well developed, well nourished, alert and cooperative HEENT: Sclerae anicteric and conjunctivae? pink and moist. Extraocular movements were intact NECK: Supple. There was no thyroid enlargement, and no tenderness, or masses were felt. LUNGS: Auscultation of the lungs revealed? distant breath sounds, no wheezing CARDIAC: There was a regular rate and rhythm EXTREMITIES: No cyanosis, clubbing or edema. NEUROLOGIC: Alert and oriented x 3. Normal affect. Objective Data Vital Signs Vital Signs: Vital Signs - 24 hr 03/18/22 17:24 03/18/22 18:30 03/18/22 18:38 Temperature 98.0 F Pulse Rate 112 H 102 H 101 H Respiratory Rate 20 14 16 Blood Pressure 121/88 Pulse Oximetry 97 Oxygen Delivery Room Air Oxygen Flow Rate 03/18/22 20:07 03/18/22 20:07 03/18/22 20:12 Temperature Pulse Rate 111 H 115 H Respiratory Rate 20 16 Blood Pressure Pulse Oximetry 99 Oxygen Delivery Nasal Cannula Oxygen Flow Rate 2 03/18/22 17:30 03/18/22 17:31 03/18/22 18:15 Temperature Pulse Rate 112 H 111 H 110 H Respiratory Rate 20 19 15 Blood Pressure 121/88 137/81 Pulse Oximetry 97 96 99 Oxygen Delivery Oxygen Flow Rate 03/18/22 18:30 03/18/22 19:15 03/18/22 19:30 Temperature Pulse Rate 110 H 108 H 112 H Respiratory Rate 13 15 21 H Blood Pressure Pulse Oximetry 98 99 97 Oxygen Delivery Oxygen Flow Rate 03/18/22 19:54 03/18/22 19:55 03/18/22 20:00 Temperature Pulse Rate 124 H 127 H 106 H Respiratory Rate 22 H 21 H 18 Blood Pressure 141/97 H Pulse Oxime
[2022-03-19] MEDS: busPIRone HCL 5 MG TABLET PO (10:11)
[2022-03-20] VITALS (14 sets, daily range): BP systolic 120–138; BP diastolic 58–99; PULSE 90–113; RESP 18–30; TEMP 36.1–36.7; O2SAT 95–100
[2022-03-20] MEDS: ALBUTEROL SULFATE NEB 2.5 MG/3 ML INH 5 MG INHALATION ×3 (02:10→13:59)
[2022-03-20] MEDS: IPRATROPIUM BR 0.02% INH SOLN 0.5 MG/2.5 ML VIAL INHALATION ×3 (02:10→13:59)
[2022-03-20] MEDS: ACETYLCYSTEINE 20% INHAL SOLN 800 MG/4 ML VIAL 200 MG INHALATION ×3 (02:10→13:59)
[2022-03-20 06:19] LABS: Basophils Absolute Auto 0.1 K/mm3 (0.0-0.1); Basophils Percent Auto 0.4 % (0.2-1.2); Eosinophils Percent Auto 0.2 % (0-4.4); Hematocrit 39.4 % (42.0-52.0); Hemoglobin 12.7 g/dL (14.0-18.0); Immature Granulocyte Absolute 0.06 K/mm3 (0.00-0.031); Immature Granulocyte Percent A 0.5 % (0-0.5); Lymphocytes Absolute Auto 1.27 K/mm3 (0.9-3.2); Lymphocytes Percent Auto 9.9 % (18.3-44.2); Mean Corpuscular HGB Conc 32.2 g/dl (32-36); Mean Corpuscular Volume 93.1 fl (80-100); Mean Platelet Volume 10.5 fl (7.4-10.4); Monocytes Absolute Auto 1.2 K/mm3 (0.1-0.6); Monocytes Percent Auto 9.5 % (2.6-8.5); Neutrophils Absolute Auto 10.2 K/mm3 (1.3-6.7); Neutrophils Percent Auto 79.5 % (45.5-73.1); Platelet Count Result 310 k/mm3 (150-375); Red Blood Count 4.23 M/mm3 (4.6-6.20); Red Cell Distribution Width 14.6 % (11.5-14.5); White Blood Count 12.8 K/mm3 (4.5-10.0)
[2022-03-20 06:51] LABS: Anion Gap 4 mmol/L (8-16); Blood Urea Nitrogen 21 mg/dL (9-20); Calcium 8.9 mg/dL (8.4-10.2); Carbon Dioxide 31 mmol/L (22-30); Chloride 106 mmol/L (98-107); Estimated CRCL calculation 104 ml/min; Estimated Glomerular Filt Rate > 60; Glucose 95 mg/dL (65-110); Potassium 4.1 mmol/L (3.4-5.0); Sodium 141 mmol/L (137-145)
--- NOTE | 2022-03-20 08:59 | PM.PNPUL ---
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 Physical exam and diagnostic studies showed patient's worsening dyspnea was rather related to nasal stuffiness rather than true COPD exacerbation. Patient has improved on current regimen. Okay to discharge patient home today. The patient will continue with levofloxacin orally for another 4 days, prednisone 40 mg daily for 4 more days after which time he will resume his chronic oral prednisone 10 mg daily, continue with his nebulized home medications Budesonide twice daily, [place] twice daily, nebulized albuterol on p.r.n. basis. Also to resume a azithromycin 3 days a week following completion of levofloxacin treatment, to continue with Daliresp daily, as well as his trilogy ventilatory support at night. The patient will return to Pulmonary Clinic in approximately 2 weeks for follow-up. In his interventional calculus professor assessment in November of 2021, there was recommendation to repeat chest CT for right lung nodule detected on a chest CT done at [facility]. The patient will need a chest CT in approximately 6 months from today to document stability of the right lung nodule. (2) Obesity (BMI 30-39.9): Code(s): E66.9 - Obesity, unspecified Status: Acute (3) COPD with emphysema: Code(s): J43.9 - Emphysema, unspecified Status: Chronic (4) Chronic respiratory failure: Code(s): J96.10 - Chronic respiratory failure, unspecified whether with hypoxia or hypercapnia Status: Acute Subjective Date/time seen: 03/20/22 08:59 Patient has no new respiratory complaints. Has not used BiPAP last night. He slept well on just supplemental oxygen. He continues to have complaints about nasal stuffiness and difficulty clearing his throat. Review of Systems Review of Systems: all system review is unremarkable except as noted in H&P and below Exam Narrative: GENERAL APPEARANCE: Well developed, well nourished, alert and cooperative, and appears to be in no acute distress while on supplemental oxygen SKIN: Inspection of the skin reveals no rashes, ulcerations or petechiae. HEENT: Sclerae anicteric and conjunctivae pink and moist. Extraocular movements were intact. The oral mucosa, hard and soft palate, tongue and posterior pharynx were normal. NECK: Supple. There was no thyroid enlargement, and no tenderness, or masses were felt. CHEST: Normal AP diameter and normal contour without any kyphoscoliosis. LUNGS: Auscultation of the lungs revealed distant breath sounds no wheezing CARDIAC: There was a regular rate and rhythm without any murmurs. ABDOMEN: Soft and nontender with normal bowel sounds. There was no organomegaly. LYMPH NODES: No lymphadenopathy was appreciated in the neck. EXTREMITIES: No cyanosis, clubbing or edema. NEUROLOGIC: Alert and oriented x 3. Normal affect. Objective Data Vital Signs Vital Signs: Vital Signs - 24 hr 03/19/22 10:10 03/19/22 14:39 03/19/22 14:50 Temperature Pulse Rate 123 H 120 H Respiratory Rate 20 24 H Blood Pressure Pulse Oximetry 94 Oxygen Delivery Nasal Cannula Oxygen Flow Rate 4 03/19/22 14:00 03/19/22 20:43 03/19/22 20:46 Temperature 36.1 C L Pulse Rate 90 112 H 112 H Respiratory Rate 20 20 Blood Pressure 140/90 Pulse Oximetry 96 96 Oxygen Delivery Nasal Cannula Oxygen Flow Rate 3 03/19/22 20:53 03/19/22 21:41 03/19/22 20:00 Temperature 36.7 C Pulse Rat
--- NOTE | 2022-03-20 09:15 | WPDGICN ---
Assessment and Plan Assessment and plan (1) Dysphagia: Code(s): R13.10 - Dysphagia, unspecified Status: Acute Assessment and Plan: I wonder if related to sensation of post-nasal drip and also COPD exacerbation but previous EGD last year showed non-obstructive EGD- will repeat again and consider dilation no vomiting and he is already doing better (2) Schatzki's ring: Code(s): K22.2 - Esophageal obstruction Status: Acute Assessment and Plan: EGD with balloon dilation (3) Acute exacerbation of chronic obstructive pulmonary disease: Code(s): J44.1 - Chronic obstructive pulmonary disease with (acute) exacerbation Status: Acute Assessment and Plan: on treatment and already doing better (4) PND (post-nasal drip): Code(s): R09.82 - Postnasal drip Status: Acute Assessment and Plan: on treatment GI Consult Note Consult date/time: 03/20/22 09:15 Reason for consult: dysphagia HPI: Bentley Mesa is a 62 year old male who is my clinic patient with history of advanced COPD on home oxygen, hypertension. He had EGD in 2020 when he had dysphagia, noted non-obstructive ring that was dilated up to 20 mm with TTS balloon- dilated in two different times, also had unremarkable colonoscopy. Last time I saw him in the office when he was complaining again of mucus building up in throat. He was admitted because more shortness of breath with productive cough of sputum yellowish in color but also noted more thickened sputum and possible post nasal drip to the point that was bothering his swallowing. He was admitted and treated for COPD exacerbation, doing better. Review of Systems Constitutional: Constitutional: Denies chills Eyes: Eyes: Reports no additional eye complaints ENT: Reports Normal hearing present Cardiovascular: Cardiovascular: Reports chest pain Respiratory: Respiratory: Reports cough and Reports dyspnea Gastrointestinal: Gastrointestinal: Reports dysphagia Genitourinary: Genitourinary: Denies dysuria Musculoskeletal: Musculoskeletal: Denies neck pain Integumentary/Breasts: Skin/Breast: Denies dry skin Neurologic: Reports system reviewed and no additional complaints, except as documented Psychiatric: Psychiatric: Reports no additional psychiatric complaints PMFSH Past Medical History Medical History (Updated 03/19/22 @ 02:11 by Naida Prasad MD) BPH (benign prostatic hyperplasia) Chronic deep vein thrombosis (DVT) Linear echogenic filling defect in the right femoral vein, likely chronic thrombus on venous dopplers 11/2020. Chronic respiratory failure with hypoxia, on home oxygen therapy COPD with emphysema Chronic steroid therapy, 10 milligrams prednisone daily. Gastroesophageal reflux disease Hiatal hernia Osteoarthritis Pneumonia (~2019) Surgical History Surgical History H/O colonoscopy History of bilateral cataract extraction History of lung surgery Family History Family History Father Acute myocardial infarction Congestive heart failure Lung cancer Mother Diabetes mellitus Dementia Sibling Diabetes mellitus Lung cancer Social History Social History Social History: Surrogate decision maker: Sloane Mesa, . Code status: Full code. Smoking packs per day: 1 Smoking cigarettes per day: 20.0 Years smoked: 38 Smoking pack-years: 38.00 Smoking status: Former smoker Tobacco type: cigarettes Second hand tobacco smoke exposure: Yes Additional smoking assessment comments: pt used to smoke cigarettes and crack cocaine for 38 years Quit december 2017 Alcohol intake: former Drinks per week: 2 Alcohol use details: Patient currently drinks 2 beers and a shot on the weekends Substance use: former Substance use type: crac
[2022-03-20] MEDS: IPRATROPIUM NASAL SPRAY 0.03% 15 ML BOTTLE 2 SPRAY NASAL (09:21)
[2022-03-20] MEDS: NEOMYCIN/POLYMYXIN/BACITRACIN OINTMENT 15 GM TUBE 1 APPLIC TOPICAL (09:21)
[2022-03-20] MEDS: AZELASTINE HCL NASAL 0.1% 137 MCG/SPR 30 ML BTL 1 SPRAY NASAL (09:21)
--- NOTE | 2022-03-20 09:58 | PC.NURSE ---
Patient went to GI Lab around 0945 for EGD.
[2022-03-20] MEDS: LACTATED RINGERS 1,000 ML 150 ML IV CONT (10:19)
--- NOTE | 2022-03-20 10:35 | WPDANESEPPF ---
Anes - Initial Pre Proc Eval Procedure: Operation Date: 03/20/22 11:15 Proposed Procedures p Esophagogastroduodenoscopy - Pernell Martinez MD Date/Time: 03/20/22 10:35 Surgeon: Naida Prasad MD Pre Op Diagnosis: COPD Exacerbation Patient Data Age: 62 Gender: M Height: 1.75 m Weight: 115 kg Last Vital Signs Temp 97.2 F L 03/20/22 10:16 Pulse 103 H 03/20/22 10:16 Resp 26 H 03/20/22 10:16 BP 122/76 03/20/22 10:16 Pulse Ox 97 03/20/22 10:16 O2 Del Method Nasal Cannula 03/20/22 10:16 O2 Flow Rate 3 03/20/22 10:16 Allergies Allergy/AdvReac Type Severity Reaction Status Date / Time oxycodone Allergy Mild Itching Verified 03/17/22 18:50 Home Medications Medication Instructions Recorded Confirmed Type calcium carbonate 500 mg-vitamin 1 tablet PO DAILY 07/06/20 03/18/22 History D3 5 mcg (200 unit) tablet (Oyster Shell Calcium-Vitamin D3) omeprazole 20 mg capsule,delayed 20 mg PO DAILY 07/06/20 03/18/22 History release tamsulosin 0.4 mg capsule 0.4 mg PO DAILY #90 caps 12/19/20 03/18/22 Rx hydrocodone 5 mg-acetaminophen 325 5 - 325 tablet PO Q4-6H PRN Pain 01/03/21 03/18/22 History mg tablet melatonin 5 mg tablet 10 mg PO HS #30 tabs 01/29/21 03/18/22 Rx neomycin-bacitracn Zn-polymyx 3.5 1 applic Not Applicable BID #30 01/29/21 03/18/22 Rx mg-400 unit-5,000 unit/gram top grams oint (Triple Antibiotic) sodium chloride 0.65 % nasal spray 1 spray intranasal Q12HR PRN 01/29/21 03/18/22 Rx aerosol (Saline Mist) Congestion #10 mL aspirin 81 mg tablet 81 mg PO DAILY 02/02/21 03/18/22 History fluticasone propionate 50 1 - 2 spray intranasal BID PRN 06/06/21 03/18/22 Rx mcg/actuation nasal nasal congestion #15.8 mL spray,suspension Adult One Daily Multivitamin 1 tab-cap PO DAILY 06/14/21 03/18/22 History magnesium oxide 400 mg PO DAILY 06/14/21 03/18/22 History multivitamin with minerals 1 tablet PO DAILY 06/14/21 03/18/22 History latanoprost 0.005 % eye drops 1 drp EACH EYE HS 06/15/21 03/18/22 History ipratropium bromide 21 mcg (0.03 2 spray intranasal DAILY #30 mL 08/03/21 03/18/22 Rx %) nasal spray montelukast 10 mg tablet 10 mg PO DAILY #90 tabs 09/05/21 03/18/22 Rx (Singulair) terbinafine HCl 250 mg tablet 250 mg PO DAILY #30 tabs 12/18/21 03/19/22 Rx promethazine-DM 6.25 mg-15 mg/5 mL See Rx Instructions .Route 01/15/22 03/19/22 Rx oral syrup .COMPLEX #118 mL azithromycin 500 mg tablet See Rx Instructions .Route 01/29/22 03/18/22 Rx .COMPLEX #20 tabs buspirone 5 mg tablet 5 mg PO DAILY #90 tabs 02/05/22 03/18/22 Rx acetaminophen 650 mg 650 mg PO Q8H PRN pain #90 tabs 02/07/22 03/18/22 Rx tablet,extended release (Pain Relief (acetaminophen)) loratadine 10 mg tablet (Claritin) 10 mg PO QAM #90 tabs 02/14/22 03/18/22 Rx acyclovir 800 mg tablet 800 mg PO QID 7 days #28 tabs 03/13/22 03/18/22 Rx azelastine 137 mcg (0.1 %) nasal See Rx Instructions .Route 03/13/22 03/18/22 Rx spray aerosol .COMPLEX #30 mL prednisone 10 mg tablet 10 mg PO DAILY 03/18/22 03/18/22 History roflumilast 500 mcg tablet 500 mcg PO DAILY 03/18/22 03/18/22 History (Daliresp) Ventolin HFA 90 mcg/actuation See Rx Instructions .Route 03/19/22 Rx aerosol inhaler (albuterol sulfate) .COMPLEX #18 grams alprazolam 0.5 mg tablet 1 tablet PO BID PRN Anxiety 03/19/22 03/19/22 History Laboratory Tests 03/20/22 03/20/22 05:55 05:55 WBC 12.8 K/mm3 H K/mm3 (4.5-10.0) RBC 4.23 M/mm3 L M/mm3 (4.6-6.20) Hgb 12.7 g/dL L g/dL (14.0-18.0) Hct 39.4 % L % (42.0-52.0) MCV 93.1 fl fl (80-100) MCH 30.0 pg pg (26-34) MCHC 32.2 g/dl g/dl (32-36) RDW 14.6 % H % (11.5-14.5) Plt Count 310 k/mm3 k/mm3 (150-375) MPV 10.5 fl H fl (7.4-10.4) Immature Gran % (Auto) 0.5 % % (0-0.5) Neut % (Auto) 79.5 % H % (45.5-73.1) Lymph % (Auto) 9.9 % L % (18.3-44.2) [place]
[2022-03-20] MEDS: LORATADINE 10 MG TABLET PO (12:25)
[2022-03-20] MEDS: TERBINAFINE HCL 250 MG TABLET PO (12:25)
[2022-03-20] MEDS: predniSONE 20 MG TABLET 40 MG PO (12:25)
[2022-03-20] MEDS: ROFLUMILAST 500 MCG TABLET PO (12:25)
[2022-03-20] MEDS: THERAPEUTIC MULTIVITAMINS/MINERALS TAB (*BKC) 1 TABLET PO (12:25)
[2022-03-20] MEDS: busPIRone HCL 5 MG TABLET PO (12:26)
[2022-03-20] MEDS: ASPIRIN 81 MG CHEWABLE TABLET PO (12:26)
[2022-03-20] MEDS: PANTOPRAZOLE 40 MG TABLET PO (12:26)
[2022-03-20] MEDS: TAMSULOSIN HCL 0.4 MG CAPSULE PO (12:26)
[2022-03-20] MEDS: MAGNESIUM OXIDE 400 MG TABLET PO (12:26)
[2022-03-20] MEDS: MONTELUKAST SODIUM 10 MG TABLET PO (12:26)
--- NOTE | 2022-03-20 13:22 | PM.DS ---
DS: Admitting Diagnosis Discharge Date 03/20/2022 Admitting Diagnosis shortness of breath DS: Discharge Diagnosis Discharge Diagnosis (1) Acute exacerbation of chronic obstructive pulmonary disease: Code(s): J44.1 - Chronic obstructive pulmonary disease with (acute) exacerbation Status: Acute (2) Shingles: Code(s): B02.9 - Zoster without complications Status: Acute (3) Chronic deep vein thrombosis (DVT): Qualifiers: Affected thrombotic vein of extremity: unspecified vein of extremity DVT location: lower extremity Laterality: unspecified laterality Qualified Code(s): I82.509 - Chronic embolism and thrombosis of unspecified deep veins of unspecified lower extremity Code(s): I82.509 - Chronic embolism and thrombosis of unspecified deep veins of unspecified lower extremity Status: Acute (4) Gastroesophageal reflux disease: Code(s): K21.9 - Gastro-esophageal reflux disease without esophagitis Status: Acute (5) DJD (degenerative joint disease): Qualifiers: Osteoarthritis location: multiple joints Osteoarthritis type: primary Qualified Code(s): M89.49 - Other hypertrophic osteoarthropathy, multiple sites Code(s): M19.90 - Unspecified osteoarthritis, unspecified site Status: Acute (6) Chronic respiratory failure: Code(s): J96.10 - Chronic respiratory failure, unspecified whether with hypoxia or hypercapnia Status: Acute Plan 03/18/22 Admit to regular medical floor Systemic steroids Schedule breathing treatments Antibiotics Cultures in progress Local care On acyclovir Continue aspirin PPI as needed Tylenol as needed Continue supplemental oxygen 3 L by nasal cannula 03/19/22 Appears to be at baseline respiratory function Per history concerned that patient is having improper emptying of the esophagus Consult Dr. Ruiz Pulmonology following for advanced COPD Continue home O2 nasal supplement of 3 L Patient has been placed on p.o. prednisone Remains on Levaquin DS: Summary Hospital Course Reason for hospitalization: This is a 62-year-old male with past medical history significant for COPD/emphysema, chronic hypoxic respiratory failure on 3 L by nasal cannula at home, gastroesophageal reflux disease, former tobacco user.? Patient presents to the emergency room for the 2nd time today after he was seen and evaluated the night before and sent home however returns today with same complains of worsening shortness of breath with productive cough of sputum yellowish in color, patient is also getting over shingles case, denies any fevers, rigors, chills, nausea, vomiting, abdominal pain, diarrhea, states that he has been taking his Mucinex for over a year now that his sputum is very thick and difficult to expectorate.? Patient denies any leg pain or leg swelling, no chest pain, no dizziness, no near syncope, no syncope, no lightheadedness.? Preliminary workup was significant for chest x-ray with no acute cardiopulmonary abnormalities.? Patient is being admitted for further evaluation, management and treatment. Hospital Course: patient with exacerbation of COPD seen by pulmonology patient clinically symptoms have improved and can be discharged home today on prednisone and Levaquin, continue on his home regimen and will follow up with his pulmonology as scheduled, patient is clinically stable will discharge patient today, Patient had EGD today and esophageal was dilated, Patient is instructed start with soft diet and advance as tolerated, patient will be discharged on Levaquin, and prednisone and will continue his home regiment, patient to follow up with his lacquer sizer as scheduled, patient to follow-up presumed primary care provider as soon as possible, patient is instructed if any symptoms redeveloped go to nearest emergency department. Patient to hold azithromycin while taking Levaquin and take prednisone 40mg for 4 days thereafter continue
== END 2022-03-20 14:54 | disposition home or self-care (01) | DRG 191 ==
LOC: ANHED 18:02 → ANH3MEDSUR 20:44
PROVIDERS: Hospitalist; Internal Medicine Gastroenterology; Physician Assistant; Admitting Provider Internal Medicine; Emergency Provider Emergency Medicine; PCP Emergency Medicine; Visit Provider Family Medicine
PROC: 0DJ08ZZ Inspection of Upper Intestinal Tract, Via Natural or Artificial Opening Endoscopic (ICD-10-PCS; CPT 43235; principal; 2022-03-20 11:15)
DX: J43.9 Emphysema, unspecified (principal); J96.11 Chronic respiratory failure with hypoxia; J96.12 Chronic respiratory failure with hypercapnia; I82.511 Chronic embolism and thrombosis of right femoral vein; Z99.81 Dependence on supplemental oxygen; R13.19 Other dysphagia; K22.2 Esophageal obstruction; K29.70 Gastritis, unspecified, without bleeding; K21.9 Gastro-esophageal reflux disease without esophagitis; K44.9 Diaphragmatic hernia without obstruction or gangrene; B02.9 Zoster without complications; M89.49 Other hypertrophic osteoarthropathy, multiple sites; E66.9 Obesity, unspecified; Z68.37 Body mass index [BMI] 37.0-37.9, adult; Z72.89 Other problems related to lifestyle; Z79.82 Long term (current) use of aspirin; Z79.899 Other long term (current) drug therapy; Z87.891 Personal history of nicotine dependence; Z98.42 Cataract extraction status, left eye; Z98.41 Cataract extraction status, right eye
CPT/HCPCS: 36415; 36600; 71045; 80048; 80053; 82375; 82805; 83050; 83690; 83735; 84484; 85025; 85380; 85610; 85730; 93005; 94640; 96360; 96365; 96366; 96376; 99284; A9270; C1726; C9803; G0378; J1956; J2704; J2930; J7030; J7040; J7120; J7512; U0003; U0005

== ENCOUNTER 2022-04-09 11:04 | Emergency (ER) | payer MEDICARE, MEDICAID, SELFPAY ==
[2022-04-09] VITALS (33 sets, daily range): BP systolic 102–132; BP diastolic 70–90; PULSE 92–122; RESP 11–29; TEMP 36.6; O2SAT 90–100
--- NOTE | ~2022-04-09 | XR_ITS ---
EXAMINATION: XR chest 1V portable INDICATION: Cough TECHNIQUE: Portable AP chest at 1219 hours COMPARISON: 03/18/2022 FINDINGS: There are endobronchial valves in the right upper lobe which result in chronic, complete at electasis of the right upper lobe. The lungs are free of acute opacities. No pleural effusion or pneu mothorax. The cardiomediastinal silhouette is normal. IMPRESSION: 1. No acute cardiopulmonary abnormality. Reviewed, dictated and finalized at location A.
--- NOTE | 2022-04-09 11:24 | ECG_ITS ---
Measurements Intervals [place] Rate: 113 P: 43 MS: 133 QRS: 17 QRSD: 81 T: 63 QT: 307 QTc: 422 Interpretive Statements SINUS TACHYCARDIA OTHERWISE NORMAL ECG COMPARED TO ECG 03/18/2022 17:28:51 NO SIGNIFICANT CHANGES Electronically Signed On 04-09-2022 15:52:50 CDT by Bentley Bethea M.D.
[2022-04-09 11:59] LABS: Basophils Absolute Auto 0.1 K/mm3 (0.0-0.1); Basophils Percent Auto 0.8 % (0.2-1.2); Eosinophils Percent Auto 0.3 % (0-4.4); Hematocrit 42.3 % (42.0-52.0); Hemoglobin 13.8 g/dL (14.0-18.0); Immature Granulocyte Absolute 0.02 K/mm3 (0.00-0.031); Immature Granulocyte Percent A 0.3 % (0-0.5); Lymphocytes Absolute Auto 0.69 K/mm3 (0.9-3.2); Lymphocytes Percent Auto 10.8 % (18.3-44.2); Mean Corpuscular HGB Conc 32.6 g/dl (32-36); Mean Corpuscular Hemoglobin 30.1 pg (26-34); Mean Corpuscular Volume 92.2 fl (80-100); Mean Platelet Volume 10.9 fl (7.4-10.4); Monocytes Absolute Auto 0.2 K/mm3 (0.1-0.6); Monocytes Percent Auto 3.3 % (2.6-8.5); Neutrophils Absolute Auto 5.4 K/mm3 (1.3-6.7); Neutrophils Percent Auto 84.5 % (45.5-73.1); Platelet Count Result 249 k/mm3 (150-375); Red Blood Count 4.59 M/mm3 (4.6-6.20); Red Cell Distribution Width 14.9 % (11.5-14.5); White Blood Count 6.4 K/mm3 (4.5-10.0)
[2022-04-09 12:10] LABS: Alanine Aminotransferase 22 U/L (6-50); Albumin Level 4.2 g/dL (3.5-5.1); Alkaline Phosphatase 75 U/L (38-126); Anion Gap 5 mmol/L (8-16); Aspartate Amino Transferase 27 U/L (17-59); Bilirubin,Total 0.4 mg/dL (0.2-1.3); Blood Urea Nitrogen 22 mg/dL (9-20); Calcium 8.9 mg/dL (8.4-10.2); Carbon Dioxide 28 mmol/L (22-30); Chloride 107 mmol/L (98-107); Estimated CRCL calculation 93 ml/min; Estimated Glomerular Filt Rate > 60; Glucose 143 mg/dL (65-110); Potassium 4.1 mmol/L (3.4-5.0); Sodium 140 mmol/L (137-145)
[2022-04-09] MEDS: HYDROcodone/acetaminophen (*CRX) 5-325 MG TABLET 1 TAB PO (12:18)
[2022-04-09] MEDS: methylPREDNISolone SOD SUCC 125 MG VIAL IV PUSH (12:18)
[2022-04-09 12:44] LABS: Alveolar/Arterial O2 Gradient 103.4 mmHg; Carboxyhemoglobin 0.8 % THb (0-2.0); Device NASAL CANNULA; Fractional Inspired Oxygen 32 %; HCO3 ABG 27.3 mEq/l (22.0-26.0); Methemoglobin ABG 0.1 %THb (0-1.5); Modified Allen's Test Pass; Oxygen Content ABG 19.3 %vol (16.0-22.0); Oxygen Saturation ABG 95.9 % (95.0-100.0); PCO2 ABG 40.6 mmHg (35.0-45.0); PO2 ABG 77.3 mmHg (80.0-100.0); PO2 FiO2 Ratio Arterial Blood 2.42 %; Reduced Hemoglobin 4.1 %THb (0-5.0); Site Drawn RIGHT RADIAL; Total Hemoglobin 14.4 g/dL (12.0-18.0); pH ABG 7.445 (7.350-7.450)
[2022-04-09 12:47] LABS: NT Pro B Type Natriuretic Pept 25 pg/mL (5-100); Troponin I < 0.012 ng/mL (0.000-0.034)
[2022-04-09] MEDS: ALBUTEROL SULFATE NEB 2.5 MG/3 ML INH 5 MG INHALATION (12:48)
[2022-04-09] MEDS: IPRATROPIUM BR 0.02% INH SOLN 0.5 MG/2.5 ML VIAL INHALATION (12:48)
[2022-04-09 13:14] LABS: INR 1.1; Prothrombin Time 13.3 Seconds (11.1-14.7)
[2022-04-09 13:15] LABS: Partial Thromboplastin Time 27.3 SECONDS (22.3-36.8)
[2022-04-09 13:41] LABS: SARS-CoV-2 RNA PCR Negative
[2022-04-09 14:13] LABS: D Dimer 0.28 ug/mL (<0.48)
[2022-04-09 16:05] LABS: Troponin I < 0.012 ng/mL (0.000-0.034)
--- NOTE | 2022-04-09 16:53 | ED.GENADULT ---
HPI - General Adult General Chief complaint: Unspecified Stated complaint: swallowing diff, mucus buildup Time Seen by Provider: 04/09/22 12:05 Source: RN notes reviewed History of Present Illness HPI narrative: Patient presents emergency department from home for mucus buildup and difficulty swallowing. Patient states that he has been having ongoing issues with chronic postnasal drip and buildup of mucus in his throat he states that time he feels like he cannot swallow or breathe because of the amount of mucus he is producing states he also has times that he has difficulty swallowing with these episodes as well states he does have COPD and is chronically on 3 L nasal cannula at all times. States he is currently on prednisone 10 mg he denies any fevers or chills states he does have pain at times when he becomes short of breath with the swelling and mucus buildup and it causes him to choke with pain in his chest and in his back states he does have chronic pain in his back and is on [place] he denies any new trauma or injury denies any fevers or chills abdominal pain nausea or vomiting. He states he has been seen by Dr. Weeks who has discussed with him doing a surgery to enlarge his airway as well as been seen by Dr. Ruiz and has had EGD most recently 2 weeks ago Related Data Home Medications Medication Instructions Recorded Confirmed omeprazole 20 mg capsule,delayed 20 mg PO DAILY 07/06/20 04/02/22 release aspirin 81 mg tablet 81 mg PO DAILY 02/02/21 04/02/22 Adult One Daily Multivitamin 1 tab-cap PO DAILY 06/14/21 04/02/22 magnesium oxide 400 mg PO DAILY 06/14/21 04/02/22 multivitamin with minerals 1 tablet PO DAILY 06/14/21 04/02/22 latanoprost 0.005 % eye drops 1 drp EACH EYE HS 06/15/21 04/02/22 prednisone 10 mg tablet 10 mg PO DAILY 03/18/22 04/02/22 roflumilast 500 mcg tablet 500 mcg PO DAILY 03/18/22 04/02/22 (Daliresp) alprazolam 0.5 mg tablet 1 tablet PO BID PRN Anxiety 03/19/22 04/02/22 fluticasone propionate 93 2 spray intranasal BID 04/09/22 mcg/actuation breath activated aerosol Allergies Allergy/AdvReac Type Severity Reaction Status Date / Time oxycodone Allergy Mild Itching Verified 04/09/22 11:14 Review of Systems Review of Systems: Gen.: Denies fevers or chills ENT: Reports buildup of mucus and rhinorrhea Respiratory: Reports shortness of breath with coughing CV reports chest pain with coughing GI: Denies abdominal pain nausea, emesis or diarrhea reports difficulty swallowing Musculoskeletal: Denies back pain or muscle pain Neuro: Denies numbness, tingling, weakness or focal weakness Skin: Denies rash Except as documented, all other systems reviewed and negative [facility] Past Medical History Medical History BPH (benign prostatic hyperplasia) Chronic deep vein thrombosis (DVT) Linear echogenic filling defect in the right femoral vein, likely chronic thrombus on venous dopplers 11/2020. Chronic respiratory failure with hypoxia, on home oxygen therapy COPD with emphysema Chronic steroid therapy, 10 milligrams prednisone daily. Gastroesophageal reflux disease Hiatal hernia Osteoarthritis Pneumonia (~2019) Surgical History Surgical History H/O colonoscopy History of bilateral cataract extraction History of lung surgery Family History Family History Father Acute myocardial infarction Congestive heart failure Lung cancer Mother Diabetes mellitus Dementia Sibling Diabetes mellitus Lung cancer Social History Social History Social History: Surrogate decision maker: Sloane [place], . Code status: Full code. Smoking packs per day: 1 Smoking cigarettes per day: 20.0 Years smoked: 38 Smoking pack-years: 38.00 Smoking status: Former smoker Tob
[2022-04-09] MEDS: LORATADINE 10 MG TABLET PO (17:07)
== END 2022-04-09 17:28 | disposition home or self-care (01) ==
PROVIDERS: Emergency Medicine; Emergency Provider Emergency Medicine; PCP Emergency Medicine
DX: J30.9 Allergic rhinitis, unspecified (principal); R13.10 Dysphagia, unspecified; J43.9 Emphysema, unspecified; Z20.822 Contact with and (suspected) exposure to COVID-19; N40.0 Benign prostatic hyperplasia without lower urinary tract symptoms; J96.11 Chronic respiratory failure with hypoxia; K21.9 Gastro-esophageal reflux disease without esophagitis; M19.90 Unspecified osteoarthritis, unspecified site; Z99.81 Dependence on supplemental oxygen; Z87.01 Personal history of pneumonia (recurrent); Z86.718 Personal history of other venous thrombosis and embolism; Z98.42 Cataract extraction status, left eye; Z98.41 Cataract extraction status, right eye; Z87.891 Personal history of nicotine dependence; Z79.82 Long term (current) use of aspirin
CPT/HCPCS: 36415; 36600; 71045; 80053; 82375; 82805; 83050; 83880; 84484; 85025; 85380; 85610; 85730; 93005; 94640; 96374; 99284; A9270; C9803; J2930; U0003; U0005

== ENCOUNTER 2022-05-05 09:19 | Outpatient (CLI) | payer MEDICARE, MEDICAID, SELFPAY ==
--- NOTE | ~2022-05-05 | CT_ITS ---
EXAMINATION: CT sinus wo con DATE: 05/05/2022 10:35 INDICATION: Sinusitis. Headaches. TECHNIQUE: Computed tomography (CT) of the paranasal sinuses was performed without intravenous contra st. The dose-length product was 331.73 mGy-cm. Automated exposure control and iterative reconstructio n technique were employed. COMPARISON: None FINDINGS: There is mild mucosal thickening of the right maxillary sinus. There is mild mucosal thicke kevin of the right sphenoid sinus. Mild mucosal thickening of the ethmoid air cells bilaterally. Masto ids are pneumatized. No air-fluid levels. Leftward nasal septal deviation. Ostiomeatal units are galindo nt. There are dental caries. IMPRESSION: 1. Mild sinusitis. Reviewed, dictated and finalized at location A. IMPRESSION: 1. Mild sinusitis.
== END 2022-05-05 09:20 | disposition home or self-care (01) ==
PROVIDERS: Visit Provider Otolaryngology
DX: J32.9 Chronic sinusitis, unspecified (principal); J34.2 Deviated nasal septum; J34.3 Hypertrophy of nasal turbinates; R09.81 Nasal congestion; R09.82 Postnasal drip; R44.8 Other symptoms and signs involving general sensations and perceptions; R51.9 Headache, unspecified
CPT/HCPCS: 70486

== ENCOUNTER 2022-05-08 08:22 | Emergency (ER) | payer MEDICARE, MEDICAID, SELFPAY ==
[2022-05-08] VITALS (8 sets, daily range): BP systolic 122–137; BP diastolic 76–96; PULSE 102–114; RESP 15–31; TEMP 36.4; O2SAT 97–100
--- NOTE | ~2022-05-08 | XR_ITS ---
EXAMINATION: XR chest 2V DATE: 05/08/2022 09:15 INDICATION: Shortness of breath TECHNIQUE: PA and lateral views of the chest are obtained. COMPARISON: 04/09/2020 FINDINGS: Endobronchial valves are again noted in the right upper lobe which result in chronic, compl ete collapse of the right upper lobe. The lungs are free of acute opacities. No pleural effusion or p neumothorax. The cardiomediastinal silhouette is normal. There is mild thoracic spondylosis. IMPRESSION: 1. No acute cardiopulmonary abnormality. Reviewed, dictated and finalized at location B.
--- NOTE | 2022-05-08 08:24 | ECG_ITS ---
Measurements Intervals [place] Rate: 108 P: 53 ID: [id number] QRS: 11 QRSD: 92 T: 62 QT: 317 QTc: 427 Interpretive Statements SINUS TACHYCARDIA VENTRICULAR PREMATURE COMPLEX BASELINE WANDER- V3 BORDERLINE ECG Electronically Signed On 05-08-2022 8:34:42 CDT by Jeremy Ibarra D.O.
--- NOTE | 2022-05-08 08:32 | ED.SOB ---
HPI - SOB/Dyspnea General Chief Complaint: Shortness of Breath/Dyspnea Stated Complaint: difficulty breathing Time Seen by Provider: 05/08/22 08:28 History of Present Illness HPI Narrative: Patient is a 62-year-old male who presents ER with shortness of breath. Woke up this morning feeling short of breath with some chest tightness. Consistent with previous COPD exacerbations. Wears 3 L of oxygen at home and has not had to increase it. No improvement with breathing treatment meant at home so he came in. Takes prednisone daily. Patient reports typically worsens when weather changes and a cold friend has come in. Related Data Home Medications Medication Instructions Recorded Confirmed Adult One Daily Multivitamin 1 tab-cap PO DAILY 06/14/21 04/25/22 prednisone 10 mg tablet 10 mg PO DAILY 03/18/22 04/25/22 Allergies Allergy/AdvReac Type Severity Reaction Status Date / Time oxycodone Allergy Mild Itching Verified 05/08/22 08:40 Review of Systems Review of Systems: All systems reviewed & are unremarkable except as noted in HPI and below Constitutional: Constitutional: Denies chills, Denies fatigue and Denies fever(s) ENT: Denies nasal congestion and Denies sore throat Cardiovascular: Cardiovascular: Denies chest pain, Denies rapid heart rate and Denies radiating jaw, neck or arm pain Respiratory: Respiratory: Denies chest congestion, Denies cough and Reports dyspnea Gastrointestinal: Gastrointestinal: Denies abdominal pain, Denies nausea and Denies vomiting PMFSH Past Medical History Medical History BPH (benign prostatic hyperplasia) Chronic deep vein thrombosis (DVT) Linear echogenic filling defect in the right femoral vein, likely chronic thrombus on venous dopplers 11/2020. Chronic respiratory failure with hypoxia, on home oxygen therapy COPD with emphysema Chronic steroid therapy, 10 milligrams prednisone daily. Gastroesophageal reflux disease Hiatal hernia Osteoarthritis Pneumonia (~2019) Surgical History Surgical History H/O colonoscopy History of bilateral cataract extraction History of lung surgery Family History Family History Father Acute myocardial infarction Congestive heart failure Lung cancer Mother Diabetes mellitus Dementia Sibling Diabetes mellitus Lung cancer Social History Social History (Reviewed 04/25/22 @ 08:08 by Tarsha Martinez [employer]ENTER[employer] Social History: Surrogate decision maker: [place], . Code status: Full code. Smoking packs per day: 1 Smoking cigarettes per day: 20.0 Years smoked: 38 Smoking pack-years: 38.00 Smoking status: Former smoker Tobacco type: cigarettes Second hand tobacco smoke exposure: Yes Additional smoking assessment comments: pt used to smoke cigarettes and crack cocaine for 38 years Quit december 2017 Alcohol intake: former Drinks per week: 2 Alcohol use details: Patient currently drinks 2 beers and a shot on the weekends Substance use: former Substance use type: crack/cocaine Additional living arrangements comments: Patient lives with his in [place]. 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 Gender identity (if verbalized by the patient): Male Spiritual care concerns: No Exam Narrative: GENERAL: Well-appearing, well-nourished, and in no acute distress. HEAD: Normocephalic, atraumatic. ENT: Mucous membranes moist. CHEST: Faint expiratory wheezing. No respiratory distress. HEART: Regular rate and rhythm. Normal peripheral pulses. ABDOMEN: Soft, nontender, nondistended. EXTREMITIES: Normal range of motion. No edema. SKIN: Warm, dry, no rash. NEURO: Alert and oriented x3. PSYCH: Normal mood and affect. Course Course E
[2022-05-08] MEDS: methylPREDNISolone SOD SUCC 125 MG VIAL IV PUSH (08:49)
[2022-05-08 08:50] LABS: Basophils Absolute Auto 0.1 K/mm3 (0.0-0.1); Eosinophils Absolute Auto 0.2 K/mm3 (0-0.3); Eosinophils Percent Auto 2.7 % (0-4.4); Hematocrit 44.5 % (42.0-52.0); Hemoglobin 14.5 g/dL (14.0-18.0); Immature Granulocyte Absolute 0.04 K/mm3 (0.00-0.031); Immature Granulocyte Percent A 0.5 % (0-0.5); Lymphocytes Absolute Auto 1.52 K/mm3 (0.9-3.2); Lymphocytes Percent Auto 20.9 % (18.3-44.2); Mean Corpuscular HGB Conc 32.6 g/dl (32-36); Mean Corpuscular Volume 91.9 fl (80-100); Mean Platelet Volume 10.5 fl (7.4-10.4); Monocytes Absolute Auto 0.5 K/mm3 (0.1-0.6); Neutrophils Absolute Auto 4.9 K/mm3 (1.3-6.7); Neutrophils Percent Auto 67.9 % (45.5-73.1); Platelet Count Result 268 k/mm3 (150-375); Red Blood Count 4.84 M/mm3 (4.6-6.20); White Blood Count 7.3 K/mm3 (4.5-10.0)
[2022-05-08] MEDS: IPRATROPIUM BR 0.02% INH SOLN 0.5 MG/2.5 ML VIAL INHALATION (08:50)
[2022-05-08] MEDS: ALBUTEROL SULFATE NEB 2.5 MG/3 ML INH 5 MG INHALATION (08:50)
[2022-05-08 09:07] LABS: Alanine Aminotransferase 19 U/L (6-50); Albumin Level 4.3 g/dL (3.5-5.1); Alkaline Phosphatase 90 U/L (38-126); Anion Gap 9 mmol/L (8-16); Aspartate Amino Transferase 24 U/L (17-59); Bilirubin,Total 0.4 mg/dL (0.2-1.3); Blood Urea Nitrogen 20 mg/dL (9-20); Calcium 9.4 mg/dL (8.4-10.2); Carbon Dioxide 27 mmol/L (22-30); Chloride 107 mmol/L (98-107); Estimated CRCL calculation 91 ml/min; Estimated Glomerular Filt Rate > 60; Glucose 101 mg/dL (65-110); Potassium 3.6 mmol/L (3.4-5.0); Sodium 143 mmol/L (137-145)
[2022-05-08] MEDS: LORazepam INJ (*CRX) 2 MG/ML VIAL 0.5 MG IV PUSH (09:45)
== END 2022-05-08 10:32 | disposition home or self-care (01) ==
PROVIDERS: Emergency Provider Emergency Medicine; PCP Internal Medicine
DX: J44.1 Chronic obstructive pulmonary disease with (acute) exacerbation (principal); N40.0 Benign prostatic hyperplasia without lower urinary tract symptoms; J96.11 Chronic respiratory failure with hypoxia; K21.9 Gastro-esophageal reflux disease without esophagitis; M19.90 Unspecified osteoarthritis, unspecified site; Z86.718 Personal history of other venous thrombosis and embolism; Z99.81 Dependence on supplemental oxygen; Z87.01 Personal history of pneumonia (recurrent); Z98.42 Cataract extraction status, left eye; Z98.41 Cataract extraction status, right eye; Z87.891 Personal history of nicotine dependence; R00.0 Tachycardia, unspecified; I49.3 Ventricular premature depolarization
CPT/HCPCS: 36415; 71046; 80053; 85025; 93005; 94640; 96374; 96375; 99284; J2060; J2930

== ENCOUNTER 2022-05-10 08:04 | Outpatient (CLI) | payer MEDICARE, MEDICAID, SELFPAY ==
--- NOTE | 2022-05-10 08:58 | ECHO_ITS ---
Patient Info Name: Bentley Mesa Age: 62 years : 1960 Gender: Male Ht: 68 in Wt: 240 lbs BSA: 2.33 m2 HR: 88 bpm BP: 142 / 99 mmHg Technical Quality: Fair Exam Date: 05/10/2022 9:16 AM Exam Location: [facility] Patient Status: Outpatient Admit Date: 05/10/2022 Staff Ordering Physician: Jeremy Ibarra DO Scuba Diver: Ena Melgar RDCS Attending Provider: Jeremy Ibarra DO Referring Physician: Fred AGUSTIN; Exam Type: CA echo doppler color flow Study Info Indications R07.9 - Chest pain, unspecified Complete two-dimensional, color flow and Doppler transthoracic echocardiogram is performed. Summary 1. Complete two-dimensional, color flow and Doppler transthoracic echocardiogram is performed. 2. Left ventricular chamber dimension is normal. 3. Left ventricular systolic function is normal, estimated at 55-60%. 4. The left ventricular diastolic function is grade I diastolic dysfunction. 5. E/e' 9 is minimally elevated. 6. Global longitudinal strain is abnormal at -15.8%. 7. No pulmonary hypertension, estimated pulmonary arterial systolic pressure is 26 mmHg. Left Ventricle E/e' 9 is minimally elevated. Global longitudinal strain is abnormal at -15.8%. Left ventricular chamber dimension is normal. Left ventricular systolic function is normal, estimated at 55-60%. The left ventricular diastolic function is grade I diastolic dysfunction. Right Ventricle Right ventricular chamber dimension is normal. Right ventricular systolic function is normal. Left Atria Left atrial chamber dimension is normal. Right Atria Right atrial chamber dimension is normal. Aortic Valve The aortic valve is trileaflet. There is no aortic valve stenosis. There is no aortic valve regurgitation. Pulmonic Valve There is no pulmonic regurgitation. Mitral Valve There is no mitral valve stenosis. There is no mitral valve regurgitation. Tricuspid Valve There is no tricuspid valve regurgitation. No pulmonary hypertension, estimated pulmonary arterial systolic pressure is 26 mmHg. Pericardium/Pleural There is no pericardial effusion. Inferior Vena Cava Normal inferior vena cava with >50% collapse upon inspiration consistent with normal right atrial pressure, 5 mmHg. Aorta The aortic root size at the sinus of Valsalva is normal. Left Ventricular Outflow Tract Name Value Normal LVOT 2D LVOT Diameter 2.0 cm LVOT Doppler LVOT Peak Gradient 6 mmHg LVOT Mean Gradient 3 mmHg LVOT VTI 25 cm LVOT VTI/AV VTI Ratio 1.3 LVOT Stroke Volume 75 ml LVOT CO 6.1 l/min LVOT CI 2.6 l/min/m2 Pulmonic Valve Name Value Normal RVOT Doppler RVOT
== END 2022-05-10 08:05 | disposition home or self-care (01) ==
LOC: ANHCARD 08:07
PROVIDERS: PCP Internal Medicine; Visit Provider Internal Medicine Cardiovascular Disease
DX: R07.9 Chest pain, unspecified (principal)
CPT/HCPCS: 93306

== ENCOUNTER 2022-05-25 00:37 | Day surgery (SDC) | payer MEDICARE, MEDICAID, SELFPAY ==
[2022-05-22 10:34] VITALS: BMI 36.4
--- NOTE | 2022-05-22 10:44 | PC.NURSE ---
Report to the Outpatient Waiting Room, entrance under the green pavilion located off [facility], at time _1000 on date __05/25/22_. OR Time:1200 __. - You and your visitor will be asked a series of questions to screen for COVID 19 for your protection. - Only one visitor is allowed at this time. - The patient visitor is requested to leave or wait in car when not with patient. - A mask is required within the hospital. Patients may have clear liquids (water, carbonated beverages, clear teas, apple juice) until 3 hours prior to surgery with a maximum of 20 ounces. - No food from midnight until time of surgery - Infants may have breast milk until 4 hours before surgery, infant formula 6 hours prior to surgery. - Children will be allowed to drink immediately following surgery. If applicable, please bring a bottle or sippy cup to assist with drinking. Juice, water, soda, and popsicles are readily available. For infants on formula, please bring formula the day of surgery. Pacifiers are allowed. Take the following medications with a SIP of water the morning of surgery: ___PREDNISONE, DELIRESP, INHALERS, NEBULIZER, PAIN PILL Medications to discontinue per physician MULTIVITAMIN Date to take last dose 05/22/22 Please no make-up, nail hungarian, hairspray, perfume, deodorant, or body powder the day of surgery. No jewelry (including any body piercings) or valuables the day of surgery, leave them at home. Please take a shower or bath the night before, or the morning of, surgery with an antibacterial soap. Wear comfortable, loose fitting clothing. Children are encouraged to wear pajamas. - Jewelry must be removed prior to entering the operating room. Rings and piercings that are not removed may be cut off. - The hospital will not accept responsibility for valuables. - Please leave all valuables, including medications, at home the day of surgery. If you are going home after surgery, a licensed pick up driver must drive you home. - NO public transportation without another adult. - We recommend that an adult stay with you for 24 hours following discharge. - We also recommend that you do not drive, make important decision, drink alcoholic beverages, or take any drugs that were not prescribed by your health care provider for at least 24 hours after your discharge time. For Pediatric surgeries, we recommend two adults accompany the child home (only one inside the building at this time). Follow any additional instructions given to you from your surgeon. If you or anyone in your household have experienced Covid symptoms in the past week, please notify your surgeon or the nurse liaison at the phone number below for possible testing. Telephone instructions given to __PATIENT__and asked if any additional questions and then verbalized understanding. Patient advised to call surgeon office or pre surgery nurse liaison [phone] if any additional questions.
--- NOTE | 2022-05-24 16:22 | PM.IMHP ---
H&P: [facility] History of Present Illness Date/Time: 05/24/22 16:22 Chief Complaint: turbinate hypertrophy septal deviation nasal obstruction nasal congestion Narrative: planned surgical procedure Review of Systems Review of Systems: All systems reviewed & are unremarkable except as noted in HPI and below [facility] Past Medical History Medical History BPH (benign prostatic hyperplasia) Chronic deep vein thrombosis (DVT) Linear echogenic filling defect in the right femoral vein, likely chronic thrombus on venous dopplers 11/2020. Chronic respiratory failure with hypoxia, on home oxygen therapy COPD with emphysema Chronic steroid therapy, 10 milligrams prednisone daily. Gastroesophageal reflux disease Hiatal hernia Osteoarthritis Pneumonia (~2019) Surgical History Surgical History H/O colonoscopy History of bilateral cataract extraction History of lung surgery Family History Family History Father Acute myocardial infarction Congestive heart failure Lung cancer Mother Diabetes mellitus Dementia Sibling Diabetes mellitus Lung cancer Social History Social History Social History: Surrogate decision maker: [place], . Code status: Full code. Smoking packs per day: 1 Smoking cigarettes per day: 20.0 Years smoked: 48 Smoking pack-years: 48.00 Smoking status: Former smoker Tobacco type: cigarettes Second hand tobacco smoke exposure: Yes Additional smoking assessment comments: pt used to smoke cigarettes and crack cocaine for 38 years Quit december 2017 Alcohol intake: current Drinks per week: 2 Alcohol use details: Patient currently drinks 2 beers and a shot on the weekends Substance use: former Substance use type: crack/cocaine Additional living arrangements comments: Patient lives with his in [place]. 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 Gender identity (if verbalized by the patient): Male Spiritual care concerns: No Meds Home Medications and Allergies Home Medications Medication Instructions Recorded Confirmed Type Adult One Daily Multivitamin 1 tab-cap PO DAILY 06/14/21 05/22/22 History terbinafine HCl 250 mg tablet 250 mg PO DAILY #30 tabs 12/18/21 05/22/22 Rx albuterol sulfate 90 mcg/actuation 1 puff inhalation PRN PRN 05/22/22 05/22/22 History aerosol inhaler (Ventolin HFA) Shortness Of Breath azithromycin 500 mg tablet 500 mg PO 3XW 05/22/22 05/22/22 History glycopyrrolate 25 mcg/mL solution 1 ml inhalation DAILY 05/22/22 05/22/22 History for nebulization-nebulizer accessor. (Jessi Lundberg Refill) hydrocodone 5 mg-acetaminophen 325 1 tablet PO Q6H PRN Pain 05/22/22 05/22/22 History mg tablet ipratropium 0.5 mg-albuterol 3 mg 3 ml inhalation EVERY OTHER DAY 05/22/22 05/22/22 History (2.5 mg base)/3 mL nebulization soln ipratropium bromide 0.02 % 1 ml inhalation EVERY OTHER DAY 05/22/22 05/22/22 History solution for inhalation prednisone 10 mg tablet 10 mg PO DAILY 05/22/22 05/22/22 History promethazine-DM 6.25 mg-15 mg/5 mL 5 ml PO Q6-12H PRN Cough 05/22/22 05/22/22 History oral syrup roflumilast 500 mcg tablet 500 mcg PO DAILY 05/22/22 05/22/22 History (Manuel) Allergies Allergy/AdvReac Type Severity Reaction Status Date / Time oxycodone Allergy Mild Itching Verified 05/22/22 10:20 Exam Narrative: septal deviation turbinate hypertrophy Assessment and Plan Assessment and plan (1) Hypertrophy of both inferior nasal turbinates: Code(s): J34.3 - Hypertrophy of nasal turbinates Status: Acute Assessment and Plan: plan OR endoscopic assisted septoplasty turbinate red
--- NOTE | 2022-05-25 07:12 | WPDHPUPDATE1 ---
History and Physical Update Update Date/Time: 05/25/22 07:12 History and Physical has been reviewed, including an updated exam of the patient. There are NO changes in the patient's condition. Risks, benefits, and alternatives have been discussed and questions answered. Patient agrees to proceed with procedure.
[2022-05-25 11:01] VITALS: BP 142/91; PULSE 89; RESP 16; TEMP 37.2; O2SAT 99
[2022-05-25] MEDS: ACETAMINOPHEN 500 MG TABLET 1000 MG PO (11:22)
[2022-05-25] MEDS: LACTATED RINGERS 1,000 ML 30 ML IV CONT ×2 (11:32→14:00)
[2022-05-25] MEDS: ceFAZolin 2 GM/D5W 50 ML 2 GM/50 ML BAG IVPB (12:25)
[2022-05-25] MEDS: OXYMETAZOLINE HCL 0.05% NAS 15 ML BTL (*BKC) 1 SPRAY NASAL (12:45)
[2022-05-25] MEDS: LIDO 1%/EPINEPHRINE 1:100,000 10 ML VIAL INFILTRATE (13:23)
[2022-05-25] MEDS: MUPIROCIN 2% OINT 22 GM TUBE 1 APPLIC EACH NARE (13:30)
[2022-05-25 13:55] VITALS: BP 117/77; PULSE 88; RESP 20; TEMP 36.3; O2SAT 100
[2022-05-25 14:10] VITALS: BP 138/94; PULSE 99; RESP 20; O2SAT 100
--- NOTE | 2022-05-25 14:15 | W.PM.PROC2 ---
Procedure Note - Detailed Date of Procedure 05/25/22 Pre-op Diagnosis septal deviation, turbinate hypertrophy, nasal congestion, nasal obstruction Post-op Diagnosis Same Procedure Performed Endoscopic assisted septoplasty, inferior turbinate submucosal reduction with outfracture Surgeon Clint Weeks MD Anesthesia General Indications See above Findings Severely deviated left septum turbinate hypertrophy well reduced perforation along the spur no concomitant perforation much improved airway Description of Procedure Patient identified consent verified. Patient brought operating. Time-out performed. General anesthesia induced endotracheal tube secured airway. Taped left lower lip. Patient prepped and draped for procedure bed position 2nd time-out performed. Afrin-soaked pledgets placed for 5 minutes allowed to sit then removed. 0 degree endoscope utilized total of 13 cc 1% lidocaine 1 100,000 parts epinephrine injected deep in the septum submucoperichondrial plane as well as bilateral inferior turbinates. [place] incision made left-sided left-sided flap elevated using 7 Bel[place]ian suction crust over with osteotome, right-sided nasal septal flap elevated with 7 [place] suction. Deviated septum removed combination Claude Law forceps Grey forceps. [place] incision closed 4 interrupted 5 0 fast gut sutures. A small perforation on the left there is a bad spur. Turbinates reduced with a microdebrider turbinate blade good reduction outfracture the Harvey elevator that was bilateral. Minimal bleeding total blood loss probably 10 cc. Monique splints placed after being covered in mupirocin sutured anteriorly using in mattress 3-0 nylon suture. I performed all dictated portions. No complications. Care the patient given over to Anesthesiology. Patient taken to PACU. Estimated Blood Loss 10 Drains No Packing No Pathology None sent Complications No immediate complications Condition Stable Disposition PACU
[2022-05-25] MEDS: fentaNYL CITRATE INJ (*CRX) 100 MCG/2 ML VIAL 25 MCG IV PUSH ×3 (14:28→14:39)
[2022-05-25 14:51] VITALS: BP 100/89; PULSE 96; RESP 15; O2SAT 99
[2022-05-25 14:54] VITALS: BP 138/100; PULSE 86; RESP 16; O2SAT 99
[2022-05-25] MEDS: oxyCODONE HCL (*CRX) 5 MG TAB IR PO (15:22)
[2022-05-25 15:25] VITALS: BP 142/96; PULSE 80; RESP 16
== END 2022-05-25 15:48 | disposition home or self-care (01) ==
PROVIDERS: PCP Internal Medicine; Visit Provider Otolaryngology
PROC: (CPT 30520; principal; 2022-05-25 12:30)
PROC: (CPT 30520; 2022-05-25 12:30)
DX: J34.2 Deviated nasal septum (principal); J34.3 Hypertrophy of nasal turbinates; J34.89 Other specified disorders of nose and nasal sinuses; J96.11 Chronic respiratory failure with hypoxia; Z99.81 Dependence on supplemental oxygen; J43.9 Emphysema, unspecified; K21.9 Gastro-esophageal reflux disease without esophagitis; M19.90 Unspecified osteoarthritis, unspecified site; N40.0 Benign prostatic hyperplasia without lower urinary tract symptoms; Z79.52 Long term (current) use of systemic steroids; Z86.718 Personal history of other venous thrombosis and embolism; Z87.891 Personal history of nicotine dependence; Z79.51 Long term (current) use of inhaled steroids
CPT/HCPCS: 30520; 30140; A9270; J0330; J0690; J1100; J2250; J2405; J2704; J3010; J7120

== ENCOUNTER 2022-06-21 09:11 | Outpatient (CLI) | payer MEDICARE, MEDICAID, SELFPAY ==
--- NOTE | ~2022-06-21 | CT_ITS ---
EXAMINATION: CT lung screening DATE: 06/21/2022 09:49 INDICATION: Personal history of nicotine dependence, prior smoker with 30 pack year history TECHNIQUE: Computed tomography (CT) of the chest was performed without intravenous contrast. The dose -length product (DLP) was 274.48 mGy-cm. Automated exposure control and iterative reconstruction tech Whatser were employed. COMPARISON: 06/14/2021 FINDINGS: Again noted are endobronchial valves in the proximal bronchi of the right upper lobe which result in complete atelectasis of the right upper lobe. No suspicious pulmonary nodules are identifie d. There is mild emphysema. The lungs are free of focal airspace opacities. No pleural effusion or pn eumothorax. No pathologically enlarged thoracic lymph nodes are identified. The heart size is normal. There are bridging osteophytes at multiple levels in the spine, consistent with diffuse idiopathic s keletal hyperostosis (DISH). There is a small sliding hiatal hernia. IMPRESSION: 1. Lung-RADS category 1: Negative. Continue annual screening with noncontrast low-dose chest CT in 12 months. Reviewed, dictated and finalized at location B. IMPRESSION: 1. Lung-RADS category 1: Negative. Continue annual screening with noncontrast l ow-dose chest CT in 12 months.
== END 2022-06-21 09:12 | disposition home or self-care (01) ==
PROVIDERS: PCP Internal Medicine; Visit Provider Physician Assistant
DX: Z12.2 Encounter for screening for malignant neoplasm of respiratory organs (principal); Z87.891 Personal history of nicotine dependence
CPT/HCPCS: 71271

== ENCOUNTER 2022-07-05 13:37 | Emergency (ER) | payer MEDICARE, MEDICAID, SELFPAY ==
[2022-07-05] VITALS (7 sets, daily range): BP systolic 139–149; BP diastolic 81–105; PULSE 86–101; RESP 18–24; TEMP 36.4; O2SAT 97–99
--- NOTE | ~2022-07-05 | XR_ITS ---
XR chest 2V 07/05/2022 16:18 Indication: Shortness of breath Procedure: 2 view chest Comparison: 05/08/2022 Findings: There is a chronic right upper lobe consolidation, likely atelectasis. Stable appearance to endobronchial valves in the right upper thorax. No acute focal pneumonia, edema or effusion. No sign ificant interval change. The lungs are hyperinflated which is consistent with, but not diagnostic of chronic obstructive pulmonary disease. Impression: 1: No acute cardiopulmonary disease. Reviewed, dictated and finalized at location A. Impression: 1: No acute cardiopulmonary disease.
--- NOTE | 2022-07-05 14:01 | ECG_ITS ---
Measurements Intervals [place] Rate: 89 P: 77 WV: 141 QRS: 42 QRSD: 92 T: 67 QT: 339 QTc: 413 Interpretive Statements SINUS RHYTHM NORMAL ECG COMPARED TO ECG 05/08/2022 08:33:10 HEART RATE HAS DECREASED Electronically Signed On 07-05-2022 14:19:28 CDT by Jeremy Ibarra D.O.
--- NOTE | 2022-07-05 14:33 | ED.SOB ---
HPI - SOB/Dyspnea General Chief Complaint: Shortness of Breath/Dyspnea Stated Complaint: SOB Time Seen by Provider: 07/05/22 14:04 History of Present Illness HPI Narrative: Patient is a 62-year-old male with a history of COPD (on 3 L baseline) presenting with shortness of breath. 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 Unfortunately, after leaving the office, the patient developed shortness of breath and chest tightness. States that it feels like his typical COPD. States that he normally comes him and gets a breathing treatment and steroids and feels improved. Currently, patient states that he feels a little bit better. He denies recent fevers, headache, chest pain, cough, abdominal pain, nausea or vomiting, diarrhea, leg swelling. Related Data Home Medications Medication Instructions Recorded Confirmed Adult One Daily Multivitamin 1 tab-cap PO DAILY 06/14/21 06/05/22 hydrocodone 5 mg-acetaminophen 325 1 tablet PO Q6H PRN Pain 05/22/22 06/05/22 mg tablet promethazine-DM 6.25 mg-15 mg/5 mL 5 ml PO Q6-12H PRN Cough 05/22/22 06/05/22 oral syrup roflumilast 500 mcg tablet 500 mcg PO DAILY 05/22/22 06/05/22 (Daliresp) Allergies Allergy/AdvReac Type Severity Reaction Status Date / Time No Known Allergies Allergy Verified 07/05/22 10:23 Review of Systems Review of Systems: All systems reviewed & are unremarkable except as noted in HPI and below PMFSH Past Medical History Medical History BPH (benign prostatic hyperplasia) Chronic deep vein thrombosis (DVT) Linear echogenic filling defect in the right femoral vein, likely chronic thrombus on venous dopplers 11/2020. Chronic respiratory failure with hypoxia, on home oxygen therapy COPD with emphysema Chronic steroid therapy, 10 milligrams prednisone daily. Gastroesophageal reflux disease Hiatal hernia Osteoarthritis Pneumonia (~2019) Surgical History Surgical History H/O colonoscopy History of bilateral cataract extraction History of lung surgery Family History Family History Father Acute myocardial infarction Congestive heart failure Lung cancer Mother Diabetes mellitus Dementia Sibling Diabetes mellitus Lung cancer Social History Social History Social History: Surrogate decision maker: [place], . Code status: Full code. Smoking packs per day: 1 Smoking cigarettes per day: 20.0 Years smoked: 48 Smoking pack-years: 48.00 Smoking status: Former smoker Tobacco type: cigarettes Second hand tobacco smoke exposure: Yes Additional smoking assessment comments: pt used to smoke cigarettes and crack cocaine for 38 years Quit december 2017 Alcohol intake: current Drinks per week: 2 Alcohol use details: Patient currently drinks 2 beers and a shot on the weekends Substance use: former Substance use type: crack/cocaine Additional living arrangements comments: Patient lives with his in [place]. 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 Gender identity (if verbalized by the patient): Male Sexual Orientation (if Verbalized by the Patient): Straight or Heterosexual Spiritual care concerns: No Exam Narrative: GENERAL: Well-appearing, well-nourished, and in no acute distress. On 3L [place] HEAD: Normocephalic, atraumatic. EYES: PERRLA and EOMI. ENT: Nares clear, no rhinorrhea or epistaxis. Mucous membranes moist. NECK: Supple. CHEST: Significantly diminished breath sounds bilaterally with scattered wheezing. HEART: Regular rate and rhythm. No murmur heard. Normal peripheral pulses. ABDOMEN: Soft, nontender, nondistended, no
[2022-07-05 14:44] LABS: Basophils Percent Auto 0.4 % (0.2-1.2); Eosinophils Percent Auto 0.1 % (0-4.4); Hematocrit 42.8 % (42.0-52.0); Hemoglobin 13.6 g/dL (14.0-18.0); Immature Granulocyte Absolute 0.01 K/mm3 (0.00-0.031); Immature Granulocyte Percent A 0.1 % (0-0.5); Lymphocytes Absolute Auto 0.78 K/mm3 (0.9-3.2); Mean Corpuscular HGB Conc 31.8 g/dl (32-36); Mean Corpuscular Hemoglobin 30.5 pg (26-34); Mean Platelet Volume 10.4 fl (7.4-10.4); Monocytes Absolute Auto 0.4 K/mm3 (0.1-0.6); Monocytes Percent Auto 5.8 % (2.6-8.5); Neutrophils Absolute Auto 5.9 K/mm3 (1.3-6.7); Neutrophils Percent Auto 82.6 % (45.5-73.1); Platelet Count Result 259 k/mm3 (150-375); Red Blood Count 4.46 M/mm3 (4.6-6.20); Red Cell Distribution Width 15.1 % (11.5-14.5); White Blood Count 7.1 K/mm3 (4.5-10.0)
[2022-07-05 14:59] LABS: Alanine Aminotransferase 25 U/L (6-50); Albumin Level 4.4 g/dL (3.5-5.1); Alkaline Phosphatase 85 U/L (38-126); Anion Gap 8 mmol/L (8-16); Aspartate Amino Transferase 25 U/L (17-59); Bilirubin,Total 0.4 mg/dL (0.2-1.3); Blood Urea Nitrogen 19 mg/dL (9-20); Calcium 9.1 mg/dL (8.4-10.2); Carbon Dioxide 25 mmol/L (22-30); Chloride 108 mmol/L (98-107); Glucose 125 mg/dL (65-110); Potassium 4.5 mmol/L (3.4-5.0); Sodium 141 mmol/L (137-145)
[2022-07-05] MEDS: ALBUTEROL SULFATE NEB 2.5 MG/3 ML INH 10 MG INHALATION (15:07)
[2022-07-05] MEDS: IPRATROPIUM BR 0.02% INH SOLN 0.5 MG/2.5 ML VIAL INHALATION (15:07)
[2022-07-05 15:18] LABS: Estimated CRCL calculation 102 ml/min; Estimated Glomerular Filt Rate > 60
== END 2022-07-05 17:20 | disposition home or self-care (01) ==
PROVIDERS: Emergency Medicine; Emergency Provider Emergency Medicine; PCP Internal Medicine
DX: J44.1 Chronic obstructive pulmonary disease with (acute) exacerbation (principal); N40.0 Benign prostatic hyperplasia without lower urinary tract symptoms; K21.9 Gastro-esophageal reflux disease without esophagitis; M19.90 Unspecified osteoarthritis, unspecified site; Z87.01 Personal history of pneumonia (recurrent); Z86.718 Personal history of other venous thrombosis and embolism; Z98.42 Cataract extraction status, left eye; Z98.41 Cataract extraction status, right eye; Z87.891 Personal history of nicotine dependence
CPT/HCPCS: 36415; 71046; 80053; 85025; 93005; 94640; 96372; 99284; J1100

== ENCOUNTER 2022-07-16 08:03 | Outpatient (CLI) | payer MEDICARE, MEDICAID, SELFPAY ==
--- NOTE | ~2022-07-16 | XR_ITS ---
MODIFIED ESOPHAGRAM HISTORY: Dysphagia. Concern for increased mucus in the throat TECHNIQUE: Modified barium esophagram was performed on 07/16/2022. I administered fluoroscopy and perf ormed the exam with speech pathologist. Patient was seated for lateral fluoroscopic imaging for mark stion of thin liquids, pudding, solids and quantified amounts, followed by thin liquids in uncontroll ed amounts. This was recorded on tape. A single fluoroscopic spot image was also recorded. The DAP fo r this procedure was 1.29 Gycm2. The amount of fluoroscopy time used during this procedure was 1.3 mi nutes. FINDINGS: Oral stage: Adequate function. Pharyngeal stage: Single episode of flash laryngeal penetration with thin liquids with no aspiration. Cervical/esophageal stage: Adequate function. IMPRESSION: No significant dysphagia with single episode of flash laryngeal penetration with thin liq uids which was now replicated on subsequent swallows. Please correlate with speech pathologist findin gs and specific feeding recommendations. Reviewed, dictated and finalized at location A. IMPRESSION: No significant dysphagia with single episode of flash laryngeal pen etration with thin liquids which was now replicated on subsequent swallows. Ple ase correlate with speech pathologist findings and specific feeding recommendat ions.
--- NOTE | 2022-07-16 09:17 | REHSTMBS ---
Assessment and note entered by Maria M Calabrese, CAN DRAGGER Modified Barium Swallow Evaluation Feeding Type Recommended Oral Food Consistency Regular, Level 7 Liquid Consistency Thin (0) ST Clinical Summary This patient was seen for a Modified Barium Swallow study at the request of his physician. He reports that he does not have any swallowing issues however he reports excessive mucous from the lungs that seems to increase after consuming liquids and solids. He did admit that he does cough occasionally when consuming food/drink but attributes the excessive mucous to weak lungs and not to a swallowing impairment. Patient reported that he has had three EGD procedures and that they did help in the past. This Modified Barium Swallow study was administered to assess this patient's risk for aspiration and to determine appropriate diet consisteny and/or use of compensatory strategies. Today the patient exhibited the following impairments: Oral Stage: None; within functional limits. Pharyngeal Stage: One episode of flash penetration on thin liquid per straw into the upper laryngeal vestibule, clearing with the swallow and leaving no residue. Not replicated on additional trials of thin liquid per straw. Cricopharyngeal Stage: None; within functional limits. Results indicate this patient may remain on Regular Diet and Liquid consistencies. He is referred back to his physician for further assessment of his complaints.
== END 2022-07-16 08:04 | disposition home or self-care (01) ==
PROVIDERS: PCP Internal Medicine; Visit Provider Internal Medicine Pulmonary Disease
DX: R13.10 Dysphagia, unspecified (principal)
CPT/HCPCS: 92611

== ENCOUNTER 2022-10-06 11:43 | Emergency (ER) | payer MEDICARE, MEDICAID, SELFPAY ==
--- NOTE | ~2022-10-06 | XR_ITS ---
EXAMINATION: XR chest 1V portable DATE: 10/06/2022 12:32 INDICATION: Shortness of breath and left-sided chest pain TECHNIQUE: frontal view of the chest was obtained. COMPARISON: Chest radiograph dated 07/05/[address] dated 06/21/2022 FINDINGS: Stable appearance of tiny densities within the focal airspace opacity medial right upper lung zone wh ich on CT correspond to endobronchial valves in the right upper lobe bronchi with complete collapse o f the right upper lobe. Increased lucency and architectural distortion in the bilateral upper lung zo lacy consistent with emphysema. No new airspace opacities, pulmonary edema, pleural effusion or pneumo thorax. Heart size is normal with slight rightward shift likely due to the volume loss in the right h emothorax resulting from the the collapsed right upper lobe. IMPRESSION: 1. Chronic right upper lobe collapse likely related to the presence of endobronchial valves in the ri ght upper lobar bronchi. 2. Emphysema. Reviewed, dictated and finalized at location A. MACHINE SERVICE REPAIRER IMPRESSION: 1. Chronic right upper lobe collapse likely related to the presence of endobron chial valves in the right upper lobar bronchi. 2. Emphysema.
--- NOTE | 2022-10-06 11:47 | ECG_ITS ---
Measurements Intervals [place] Rate: 125 P: 56 OR: 139 QRS: 33 QRSD: 86 T: 64 QT: 307 QTc: 443 Interpretive Statements SINUS TACHYCARDIA NONSPECIFIC ST ABNORMALITY BORDERLINE ECG COMPARED TO ECG 07/05/2022 13:52:58 HEART RATE HAS INCREASED Electronically Signed On 10-06-2022 13:41:55 PURCHASING MANAGER by Jitendra Stewart M.D.
[2022-10-06 11:53] VITALS: BP 148/94; PULSE 118; RESP 17; TEMP 37.7; O2SAT 98
[2022-10-06 12:10] LABS: Basophils Absolute Auto 0.1 K/mm3 (0.0-0.1); Basophils Percent Auto 0.6 % (0.2-1.2); Eosinophils Absolute Auto 0.1 K/mm3 (0-0.3); Eosinophils Percent Auto 0.4 % (0-4.4); Hematocrit 40.2 % (42.0-52.0); Hemoglobin 12.8 g/dL (14.0-18.0); Immature Granulocyte Absolute 0.04 K/mm3 (0.00-0.031); Immature Granulocyte Percent A 0.3 % (0-0.5); Mean Corpuscular HGB Conc 31.8 g/dl (32-36); Mean Corpuscular Volume 94.1 fl (80-100); Mean Platelet Volume 10.1 fl (7.4-10.4); Monocytes Absolute Auto 0.6 K/mm3 (0.1-0.6); Monocytes Percent Auto 5.1 % (2.6-8.5); Neutrophils Absolute Auto 11.3 K/mm3 (1.3-6.7); Neutrophils Percent Auto 89.6 % (45.5-73.1); Platelet Count Result 318 k/mm3 (150-375); Red Blood Count 4.27 M/mm3 (4.6-6.20); Red Cell Distribution Width 14.6 % (11.5-14.5); White Blood Count 12.6 K/mm3 (4.5-10.0)
--- NOTE | 2022-10-06 12:15 | ED.GENADULT ---
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 Patient reports that starting 4 days ago he began having worsening shortness of breath with increased yellowish mucus production. He reports that this morning he experienced chest pain associated with sensation of shortness of breath. Pain does not radiate and has diffusely in his upper chest. He reports feeling warm at home. He denies syncope, near syncope. He reports constipation last bowel movement yesterday. He denies abdominal pain, chills. Related Data Home Medications Medication Instructions Recorded Confirmed hydrocodone 5 mg-acetaminophen 325 1 tablet PO Q6H PRN Pain 05/22/22 06/05/22 mg tablet roflumilast 500 mcg tablet 500 mcg PO DAILY 05/22/22 06/05/22 (Daliresp) Allergies Allergy/AdvReac Type Severity Reaction Status Date / Time No Known Allergies Allergy Verified 08/30/22 10:26 Review of Systems Review of Systems: 10 point review of systems performed and negative except per HPI [facility] Past Medical History Medical History BPH (benign prostatic hyperplasia) Chronic deep vein thrombosis (DVT) Linear echogenic filling defect in the right femoral vein, likely chronic thrombus on venous dopplers 11/2020. Chronic respiratory failure with hypoxia, on home oxygen therapy COPD with emphysema Chronic steroid therapy, 10 milligrams prednisone daily. Gastroesophageal reflux disease Hiatal hernia Osteoarthritis Pneumonia (~2019) Surgical History Surgical History H/O colonoscopy History of bilateral cataract extraction History of lung surgery Family History Family History Father Acute myocardial infarction Congestive heart failure Lung cancer Mother Diabetes mellitus Dementia Sibling Diabetes mellitus Lung cancer Social History Social History Social History: Surrogate decision maker: [place], . Code status: Full code. Smoking packs per day: 1 Smoking cigarettes per day: 20.0 Years smoked: 48 Smoking pack-years: 48.00 Smoking status: Former smoker Tobacco type: cigarettes Second hand tobacco smoke exposure: Yes Additional smoking assessment comments: pt used to smoke cigarettes and crack cocaine for 38 years Quit december 2017 Alcohol intake: current Drinks per week: 2 Alcohol use details: Patient currently drinks 2 beers and a shot on the weekends Substance use: former Substance use type: crack/cocaine Additional living arrangements comments: Patient lives with his in [place]. 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 Gender identity (if verbalized by the patient): Male Sexual Orientation (if Verbalized by the Patient): Straight or Heterosexual Spiritual care concerns: No Exam Narrative: APPEARANCE: No acute distress, nontoxic, resting in bed EYES: EOMI HEENT: Normocephalic, atraumatic, OMM RESPIRATORY: Symmetric chest rise, mild tachypnea, faint wheeze diffusely CARDIOVASCULAR: Tachycardic, regular rhythm without murmurs rubs or gallops. No lower extremity edema ABDOMINAL: Soft, nontender, nondistended, no rebound or guarding MUSCULOSKELETAl: Moves all extremities. No clubbing, cyanosis or edema.
[2022-10-06] MEDS: methylPREDNISolone SOD SUCC 40 MG VIAL IV PUSH (12:19)
[2022-10-06 12:20] LABS: INR 1.1
[2022-10-06] MEDS: HYDROcodone/acetaminophen (*CRX) 10-325 MG TABLET 1 TAB PO (12:20)
[2022-10-06 12:21] LABS: Partial Thromboplastin Time 35.8 SECONDS (22.3-36.8)
[2022-10-06 12:22] LABS: Alanine Aminotransferase 29 U/L (6-50); Albumin Level 4.2 g/dL (3.5-5.1); Alkaline Phosphatase 149 U/L (38-126); Anion Gap 8 mmol/L (8-16); Aspartate Amino Transferase 38 U/L (17-59); Bilirubin,Total 0.6 mg/dL (0.2-1.3); Blood Urea Nitrogen 15 mg/dL (9-20); Calcium 8.9 mg/dL (8.4-10.2); Carbon Dioxide 27 mmol/L (22-30); Chloride 106 mmol/L (98-107); Estimated CRCL calculation 99 ml/min; Estimated Glomerular Filt Rate > 60; Glucose 134 mg/dL (65-110); Lipase 17 U/L (23-300); Potassium 4.1 mmol/L (3.4-5.0); Sodium 141 mmol/L (137-145)
[2022-10-06] MEDS: ASPIRIN 81 MG CHEWABLE TABLET 324 MG PO (12:23)
[2022-10-06 12:34] LABS: Troponin I < 0.012 ng/mL (0.000-0.034)
[2022-10-06 12:39] VITALS: PULSE 123; RESP 18; O2SAT 98
[2022-10-06] MEDS: ALBUTEROL SULFATE NEB 2.5 MG/3 ML INH 10 MG INHALATION (12:39)
[2022-10-06 13:24] LABS: Fractional Inspired Oxygen 40 %; HCO3 VBG 27.3 mEq/l (24.0-30.0); PCO2 VBG 42.3 mmHg (42.0-48.0); PO2 VBG 83.2 mmHg (35.0-45.0)
[2022-10-06 13:28] LABS: Device NASAL CANNULA; pH VBG 7.427 (7.300-7.400)
[2022-10-06 13:34] LABS: Influenza A QL RT-PCR Negative (Negative); Influenza B QL RT-PCR Negative (Negative); RSV RNA, RT-PCR Negative (Negative); SARS-CoV-2 RNA PCR Negative
[2022-10-06 13:55] VITALS: O2SAT 97
[2022-10-06 13:56] VITALS: BP 153/98; PULSE 110; RESP 18; O2SAT 97
[2022-10-06 15:11] LABS: Troponin I < 0.012 ng/mL (0.000-0.034)
[2022-10-06 16:25] VITALS: PULSE 85; RESP 17; O2SAT 97
== END 2022-10-06 16:28 | disposition home or self-care (01) ==
PROVIDERS: Emergency Medicine; Emergency Provider Emergency Medicine; PCP Internal Medicine
DX: J43.9 Emphysema, unspecified (principal); Z20.822 Contact with and (suspected) exposure to COVID-19; J96.11 Chronic respiratory failure with hypoxia; J96.12 Chronic respiratory failure with hypercapnia; N40.0 Benign prostatic hyperplasia without lower urinary tract symptoms; M19.90 Unspecified osteoarthritis, unspecified site; K21.9 Gastro-esophageal reflux disease without esophagitis; Z99.81 Dependence on supplemental oxygen; Z96.89 Presence of other specified functional implants; Z86.718 Personal history of other venous thrombosis and embolism; Z87.01 Personal history of pneumonia (recurrent); Z87.891 Personal history of nicotine dependence; Z98.42 Cataract extraction status, left eye; Z98.41 Cataract extraction status, right eye; R00.0 Tachycardia, unspecified; R94.31 Abnormal electrocardiogram [ECG] [EKG]
CPT/HCPCS: 36415; 71045; 80053; 82803; 83690; 84484; 85025; 85610; 85730; 87637; 93005; 96374; 99284; A9270; J2920

== ENCOUNTER 2022-11-19 23:41 | Inpatient (IN) | payer MEDICARE, MEDICAID, SELFPAY ==
--- NOTE | ~2022-11-19 | XR_ITS ---
EXAMINATION: XR abdomen NG/feed tube insert INDICATION: OG insertion TECHNIQUE: Portable AP KUB-NG at 1008 hours COMPARISON: None available FINDINGS: The OG tube is in the stomach. The visualized lungs are clear. Endobronchial valves are not ed in the right upper lobe with resolving chronic, complete collapse of the right upper lobe. IMPRESSION: 1. OG tube in the stomach. Reviewed, dictated and finalized at location L. ENTARY LIBRARIAN IMPRESSION: 1. OG tube in the stomach.
--- NOTE | ~2022-11-19 | XR_ITS ---
Portable chest x-ray Comparison: 11/25/2022 Clinical History: Respiratory failure Findings: Endotracheal tube, NG tube, and right-sided PICC line are in satisfactory positions. Stabl e chronic right upper lobe collapse with right upper lobe endobronchial valves. Small right pleural e ffusion present with probable right basilar atelectatic change. Questionable developing hazy left upp er lobe airspace opacity versus external shadow. Cardiomediastinal silhouette is stable. Bones and s oft tissues are unremarkable. Impression: Stable right upper lobe collapse with endobronchial valves. Small right pleural effusion with bibasilar atelectatic change. Questionable developing hazy left upper lobe airspace disease versus external shadow. Continued follo w-up advised. Support tubes, as above. Reviewed, dictated and finalized at location M. GER BUSINESS CONTINUITY Impression: Stable right upper lobe collapse with endobronchial valves. Small right pleural effusion with bibasilar atelectatic change. Questionable developing hazy left upper lobe airspace disease versus external s hadow. Continued follow-up advised. Support tubes, as above.
--- NOTE | ~2022-11-19 | US_ITS ---
EXAMINATION: US venous doppler [facility] DATE: 11/22/2022 11:30 INDICATION: Chest pain. TECHNIQUE: Grayscale ultrasound images without and with compression and Doppler ultrasound images of the bilateral lower extremity veins were obtained. COMPARISON: Ultrasound 11/21/2020 FINDINGS: The visualized portions of right common femoral vein, profunda (deep) femoral vein, femoral vein, pop liteal vein, peroneal veins, posterior tibial veins, and greater saphenous vein outflow are patent. The visualized portions of left common femoral vein, profunda femoral vein, femoral vein, popliteal v ein, peroneal veins, posterior tibial veins, and greater saphenous vein outflow are patent. IMPRESSION: 1. No deep venous thrombosis. Reviewed, dictated and finalized at location A. GATION COORDINATOR
--- NOTE | ~2022-11-19 | XR_ITS ---
EXAMINATION: XR chest 1V portable DATE: 11/30/2022 06:28 INDICATION: Respiratory failure. TECHNIQUE: A single frontal view of the chest was obtained. COMPARISON: Chest single view 11/29/2022 FINDINGS: There are lucencies in the lungs, consistent with emphysema. There is chronic collapse of r ight lung upper lobe. There are endobronchial valves in right upper lobe. There is mild atelectasis i n right mid and lower lung zones. There is a small right pleural effusion. No pneumothorax. The heart size is normal. A right upper extremity peripherally inserted central venous catheter (PICC) is seen with tip in the superior vena cava. IMPRESSION: 1. Stable small right pleural effusion. 2. Emphysema. 3. Stable atelectasis in right lung, worst in right upper lobe where there are endobronchial valves. Reviewed, dictated and finalized at location A. RSHED COORDINATOR
--- NOTE | ~2022-11-19 | XR_ITS ---
Portable chest x-ray Comparison: 10/06/2022 Clinical History: Shortness of breath Findings: Stable masslike density of right paratracheal stripe region, with adjacent endobronchial va lves in the right supra hilar region. Lungs are otherwise clear. No pleural effusion or pneumothorax. Cardiac silhouette is otherwise unchanged. Bones and soft tissues are unremarkable. Impression: Stable right upper lobe collapse resulting in masslike density along the right paratracheal stripe, w ith endobronchial valves in the right supra hilar region. Reviewed, dictated and finalized at location M. E JUMPER Impression: Stable right upper lobe collapse resulting in masslike density along the right paratracheal stripe, with endobronchial valves in the right supra hilar region.
--- NOTE | ~2022-11-19 | XR_ITS ---
EXAM: XR abdomen NG/feed tube rechec DATE: 11/24/2022 16:16 HISTORY: s/p ngt placement . COMPARISON: 11/23/2022, x-ray chest 11/24/2022. FINDINGS: Right upper lobe endobronchial devices. Partially visualized right upper lobe collapse. Rig htward rotation. Right costophrenic angle blunting which may be secondary to chronic scarring. NG tub e, tip and side port project over the stomach. Normal partially visualized bowel gas pattern. IMPRESSION: NG tube, in good position. Reviewed, dictated and finalized at location K. ICAL INFORMATICS EDUCATOR IMPRESSION: NG tube, in good position.
--- NOTE | ~2022-11-19 | US_ITS ---
EXAMINATION: US renal BI DATE: 12/03/2022 22:16 INDICATION: Acute kidney injury. TECHNIQUE: Multiple ultrasound grayscale images of the kidneys were obtained. COMPARISON: CT 11/25/2022 FINDINGS: The right kidney measures 11.6 x 5.0 x 5.9 cm. The left kidney measures 11.0 x 5.8 x 6.8 cm. The kidn eys demonstrate normal parenchymal echogenicity. There is no hydronephrosis. The bladder is normal. IMPRESSION: 1. Normal kidneys. No hydronephrosis. Reviewed, dictated and finalized at location A. NT MASON APPRENTICE
--- NOTE | ~2022-11-19 | XR_ITS ---
EXAMINATION: XR chest ET placement INDICATION: Respiratory failure TECHNIQUE: Portable AP chest at 1007 hours COMPARISON: 11/20/2022 FINDINGS: The endotracheal tube ends approximately 3.3 cm above the travon. The nasogastric tube is f ollowed as far as the stomach. Its tip is beyond the inferior margin of the radiograph. Endobronchial valves are again noted in the right upper lobe which result in chronic, complete collapse of the rig ht upper lobe. The lungs are free of acute opacities. No pleural effusion or pneumothorax. The cardia c mediastinal silhouette is stable. IMPRESSION: 1. Endotracheal and nasogastric tubes in adequate position. Reviewed, dictated and finalized at location L. R DISPATCHER CHIEF
--- NOTE | ~2022-11-19 | XR_ITS ---
Portable chest x-ray Comparison: 12/02/2022 Clinical History: Pneumonia Findings: Right-sided PICC line is in place. There are small chronic right upper lobe collapse with right upper lobe endobronchial valves present. There is linear scarring at the right lung base with p robable minimal right pleural effusion. Left lung is clear. Cardiomediastinal silhouette is stable. Bones and soft tissues are unremarkable. Impression: Chronic right upper lobe collapse with endobronchial valves present. Linear scarring right lung base with minimal right pleural effusion. Right-sided PICC line. Reviewed, dictated and finalized at location M. ECTION MACHINE TENDER Impression: Chronic right upper lobe collapse with endobronchial valves present. Linear scarring right lung base with minimal right pleural effusion. Right-sided PICC line.
--- NOTE | ~2022-11-19 | XR_ITS ---
XR chest 1V portable DATE: 11/24/2022 05:58 INDICATION: Acute respiratory failure. Mechanical ventilation. TECHNIQUE: Portable AP chest administered 11/24/2022 at 0518 hours COMPARISON: November 23, 2022 portable AP chest at 0512 hours November 20, 2022 CTA chest FINDINGS: ET tube is 6.4 cm with travon; ideal range is 2-5 cm. NG tube in stomach. Persistent right upper lobe collapse, with associated rightward shift of heart and mediastinum. Endob ronchial devices are again noted at the right upper lobe. Minimal atelectasis or scarring in the lower lung zones. The lungs otherwise appear clear. No pleural effusion or pneumothorax is evident. Normal heart size. Mild thoracic aortic calcification. IMPRESSION: ET tube tip 6 x 4 cm above travon; ideal range is 2 5 5 cm Otherwise no significant change since November 23, 2022 Reviewed, dictated and finalized at location A. 7TH GRADE TEACHER
--- NOTE | ~2022-11-19 | XR_ITS ---
Portable chest x-ray Comparison: 11/20/2022 Clinical History: Respiratory failure Findings: Endotracheal tube and NG tube are in satisfactory positions. Chronic right upper lobe atel ectasis with endobronchial valves is unchanged. Small right pleural effusion present. Left lung clear . Cardiomediastinal silhouette is stable. Bones and soft tissues are unremarkable. Impression: Small right pleural effusion. Chronic right upper lobe collapse with endobronchial valves is unchanged. Support tubes, as above. Reviewed, dictated and finalized at location . DEPARTMENT MANAGER Impression: Small right pleural effusion. Chronic right upper lobe collapse with endobronchial valves is unchanged. Support tubes, as above.
--- NOTE | ~2022-11-19 | XR_ITS ---
Portable chest x-ray Comparison: 11/22/2022 Clinical History: Respiratory failure Findings: Endotracheal tube and NG tube remain in place. Stable complete right upper lobe collapse w ith right upper lobe endobronchial valves. Probable small right pleural effusion. Left lung remains c lear. Cardiomediastinal silhouette is stable. Bones and soft tissues are unremarkable. Impression: Stable right upper lobe collapse with right upper lobe endobronchial valves. Support tubes, as above. Minimal right pleural effusion. Reviewed, dictated and finalized at location M. PPER BLACK AND WHITE Impression: Stable right upper lobe collapse with right upper lobe endobronchial valves. Support tubes, as above. Minimal right pleural effusion.
--- NOTE | ~2022-11-19 | XR_ITS ---
EXAMINATION: XR chest 1V portable DATE: 11/29/2022 05:35 INDICATION: Respiratory failure. TECHNIQUE: A single frontal view of the chest was obtained. COMPARISON: Chest single view 11/28/2022, chest CT 11/25/2022 FINDINGS: There are lucencies in the lungs, consistent with emphysema. There is chronic collapse of r ight lung upper lobe. There are endobronchial valves in right upper lobe. There is mild atelectasis i n right mid and lower lung zones. There is a small right pleural effusion. No pneumothorax. The heart size is normal. A right upper extremity peripherally inserted central venous catheter (PICC) is seen with tip in the superior vena cava. IMPRESSION: 1. Stable small right pleural effusion. 2. Emphysema. 3. Stable atelectasis in right lung, worst in right upper lobe where there are endobronchial valves. Reviewed, dictated and finalized at location A. STICAL TILE CARPENTERS SUPERVISOR
--- NOTE | ~2022-11-19 | XR_ITS ---
Portable chest x-ray Comparison: 11/21/2022 Clinical History: Respiratory failure Findings: Endotracheal tube and NG tube remain in place. Stable right upper lobe collapse with right upper lobe endobronchial valves. Additional linear scarring or atelectasis noted at the right lung b ase. Left lung remains clear. Cardiomediastinal silhouette is stable. Bones and soft tissues are unr emarkable. Impression: Stable right upper lobe collapse with endobronchial valves. Additional linear scarring or atelectasis right lung base. Support tubes, as above. Reviewed, dictated and finalized at location . ROOM TECHNICIAN Impression: Stable right upper lobe collapse with endobronchial valves. Additional linear scarring or atelectasis right lung base. Support tubes, as above.
--- NOTE | ~2022-11-19 | XR_ITS ---
XR chest PICC line DATE: 11/25/2022 08:54 INDICATION: PICC line placement TECHNIQUE: Portable upright AP chest on August 25, 2023 at 0839 hours COMPARISON: November 25, 2022 portable AP chest at 0520 hours FINDINGS: There is interval placement of a right upper extremity PIC catheter, the tip overlying supe rior vena cava. No other significant change. IMPRESSION: Hepatomegaly PIC catheter tip overlying superior vena cava Reviewed, dictated and finalized at Location A. Reviewed, dictated and finalized at location A. E RACER
--- NOTE | ~2022-11-19 | XR_ITS ---
XR chest 1V portable DATE: 11/27/2022 06:12 INDICATION: Respiratory failure TECHNIQUE: Portable AP chest on November 27, 2022 at 0526 hours COMPARISON: November 26, 2022 portable AP chest at 0515 hours FINDINGS: Stable right upper lobe atelectasis with right upper lobe endobronchial valves. Small right pleural effusion. Bilateral lower lung atelectasis. No pneumothorax. Removal of ET tube and nasogastric tube since November 26, 2022. Right upper extremity PIC catheter tip is situated near the superior cavoatrial junction. IMPRESSION: Removal of ET and NG tubes Mild atelectasis in the lower lung zones, improved on the right since November 26, 2022 Chronic right upper lobe atelectasis, right upper lobe endobronchial valves Reviewed, dictated and finalized at location A. ING AND SPLICING SUPERVISOR
--- NOTE | ~2022-11-19 | XR_ITS ---
XR chest 1V portable DATE: 11/25/2022 06:09 INDICATION: Acute respiratory failure, mechanical ventilation TECHNIQUE: Portable AP view on November 25, 2022 at 0520 hours COMPARISON: November 24, 2022 portable AP chest at 0518 hours FINDINGS: Persistent right upper lobe mass and consolidation, radiopaque devices overlying right uppe r lobe, without significant change since November 24. There is infiltrate and/atelectasis in the right lower lung. The right costophrenic angle is blunted which may indicate small pleural effusion. No pneumothorax. ET and NG tubes in satisfactory position. IMPRESSION: No significant change since November 24, 2022 Reviewed, dictated and finalized at location A. ER DEPOSIT OPERATOR
--- NOTE | ~2022-11-19 | CT_ITS ---
EXAMINATION: CT chest abdomen pelvis wo con DATE: 11/25/2022 16:51 INDICATION: Fever . TECHNIQUE: Computed tomography (CT) of the chest, abdomen, and pelvis was performed without intraveno us contrast. Automated exposure control and iterative reconstruction technique were employed. The dos e-length product was 1853.77 mGy-cm. COMPARISON: [facility] 11/20/2022, CT abdomen and pelvis 12/15/2020 FINDINGS: Exam limited by beam hardening from arm positioning. CHEST: Right upper extremity PICC, terminating in the superior vena cava. Endotracheal tube terminating in t he mid thoracic trachea. Thoracic aorta: Mild arch calcification. Lung parenchyma and airways: Subsegmental consolidation in the right lung base, with volume loss. Min imal left basilar atelectasis. Persistent right upper lobe collapse. Endobronchial devices in right u pper lobe bronchi. Thoracic inlet, axillae and chest wall: No thyroid or soft tissue mass. No axillary lymphadenopathy. Mediastinum: No mass or lymphadenopathy. Heart and pericardium: Normal heart size. No pericardial effusion. Coronary artery calcifications: Mild. Pleura: Small volume right pleural fluid collection. Thoracic bones: No acute osseous finding in the chest. ABDOMEN/PELVIS: NG tube terminating in the stomach. Liver: Normal. Biliary/Gallbladder: Gallbladder is partially contracted. No bile duct dilation. Pancreas: No mass or duct dilation. Spleen: Normal. Adrenals:No mass. Kidneys: No mass, stone, or hydronephrosis. GI tract: No small or large bowel dilation. Normal appendix. Mesentery/Peritoneum: No ascites, mass, or free air. Retroperitoneum: No mass. Mild atherosclerotic abdominal aortic and/or arterial calcifications. Pelvis: The bladder is decompressed by a Elias catheter Soft Tissues: Soft tissues and body wall unremarkable. Abdominopelvic bones: No acute osseous finding in the abdomen/pelvis. IMPRESSION: Limited exam, as noted above. Appropriately positioned endotracheal tube, right upper extremity PICC, and NG tube. Subsegmental right basilar atelectasis/consolidation. Small right pleural effusion. No acute process detected in the abdomen/pelvis. Reviewed, dictated and finalized at location K. M TECHNICIAN IMPRESSION: Limited exam, as noted above. Appropriately positioned endotracheal tube, right upper extremity PICC, and NG tube. Subsegmental right basilar atelectasis/cons olidation. Small right pleural effusion. No acute process detected in the abdom en/pelvis.
--- NOTE | ~2022-11-19 | XR_ITS ---
XR chest 1V portable 12/02/2022 02:13 Indication: Shortness of breath Procedure: AP portable chest Comparison: Comparison to multiple prior studies sequentially, with oldest reviewed study dated 11/27. Findings: Worsening right basilar airspace consolidation, suspicious for pneumonia. There is chronic scarring/atelectasis of the right lung with endobronchial valves in the right upper lobe. Left lung c lear. Stable cardiomediastinal silhouette. PICC line tip in the SVC. Small right pleural effusion maryse mayur pleural thickening. Impression: 1: Worsening right basilar airspace disease, suspicious for pneumonia. Reviewed, dictated and finalized at location A. D SECRETARY Impression: 1: Worsening right basilar airspace disease, suspicious for pneumonia.
--- NOTE | ~2022-11-19 | XR_ITS ---
XR chest 1V portable 11/28/2022 06:23 Indication: Respiratory failure Procedure: AP portable chest Comparison: Comparison to multiple prior studies sequentially, with oldest reviewed study dated 11/25. Findings: Stable volume loss of the right thorax. Stable right upper lobe collapse with endobronchial valves. Right subclavian PICC line tip in the SVC. No acute osseous abnormality. Impression: 1: Stable right upper thoracic volume loss with endobronchial valves. 2: Extensive scarring right thorax unchanged. 3: Small right pleural effusion. Reviewed, dictated and finalized at location A. RUCTIONAL SPECIALIST Impression: 1: Stable right upper thoracic volume loss with endobronchial valves. 2: Extensive scarring right thorax unchanged. 3: Small right pleural effusion.
--- NOTE | ~2022-11-19 | CT_ITS ---
Clinical Indication: Shortness of breath, chest pain CT Scan of the Chest with Contrast: Technique: Contiguous sections were acquired throughout the chest prior to and following intravenous administration of 100 cc of Omnipaque 350. Dose reduction technique was used on this scan by [employer] cassi automated exposure control and iterative reconstruction technique. The dose-length product (DLP) wa s 1178.81 mGy-cm. COMPARISON: 06/21/2022 Findings: There is no evidence of any significant mediastinal, hilar or axillary lymphadenopathy. There is no f illing defect in the pulmonary arterial tree to suggest pulmonary embolus. There is no evidence of ao rtic dissection or aneurysm. There is no evidence of pleural or pericardial effusion. There is complete right upper lobe collapse, as seen on prior exam, probably related to the presence of endobronchial valves in the right upper lobe bronchus. No other pulmonary nodule or consolidation seen. There is minimal emphysema. Minimal pulmonary scarring. Images through the upper abdomen reveal no abnormalities. Impression: No evidence of pulmonary embolus, aortic dissection, or aortic aneurysm. Chronic complete right upper lobe collapse, as seen on prior exam. Minimal emphysema. Reviewed, dictated and finalized at [facility]. UNT STRATEGIST Impression: No evidence of pulmonary embolus, aortic dissection, or aortic aneurysm. Chronic complete right upper lobe collapse, as seen on prior exam. Minimal emphysema.
--- NOTE | ~2022-11-19 | XR_ITS ---
EXAMINATION: XR abdomen NG/feed tube insert DATE: 11/23/2022 17:17 INDICATION: Orogastric tube placement TECHNIQUE: A supine view of the abdomen and lower chest was obtained for evaluation of feeding tube placement. COMPARISON: 11/20/2022 FINDINGS: Again seen is a orogastric tube with distal tip in proximal side port in the proximal body of the sto mach. No dilated loops of gas-filled bowel in the visualized abdomen to suggest obstruction. Visualiz ed portion of the lung bases are clear. Patient is rotated towards the right. IMPRESSION: 1. Orogastric tube in the stomach. Reviewed, dictated and finalized at location A. ST
--- NOTE | 2022-11-19 23:42 | ECG_ITS ---
Measurements Intervals [place] Rate: 141 P: 72 FL: 132 QRS: 39 QRSD: 86 T: 69 QT: 277 QTc: 424 Interpretive Statements SINUS TACHYCARDIA, POSSIBLE ATRIAL FLUTTER MINIMAL ST DEPRESSION [0.025+ mV ST DEPRESSION] ABNORMAL RHYTHM ECG COMPARED TO ECG 10/06/2022 11:57:17 HEART RATE HAS INCREASED Electronically Signed On 11-20-2022 14:49:12 TRIM MASTER OPERATOR by Colleen Sawyer M.D.
[2022-11-20] VITALS (54 sets, daily range): BP systolic 114–135; BP diastolic 75–101; PULSE 78–174; RESP 20–48; TEMP 36.4–37.5; O2SAT 82–100; BMI 34.0
[2022-11-20] MEDS: IPRATROPIUM BR 0.02% INH SOLN 0.5 MG/2.5 ML VIAL 1 MG INHALATION (00:05)
[2022-11-20] MEDS: ALBUTEROL SULFATE NEB 2.5 MG/3 ML INH 10 MG INHALATION (00:05)
[2022-11-20 00:13] LABS: Hematocrit 42.2 % (42.0-52.0); Hemoglobin 13.2 g/dL (14.0-18.0); Mean Corpuscular HGB Conc 31.3 g/dl (32-36); Mean Corpuscular Hemoglobin 30.1 pg (26-34); Mean Corpuscular Volume 96.3 fl (80-100); Mean Platelet Volume 10.8 fl (7.4-10.4); Platelet Count Result 385 k/mm3 (150-375); Red Blood Count 4.38 M/mm3 (4.6-6.20); Red Cell Distribution Width 15.6 % (11.5-14.5); White Blood Count 25.2 K/mm3 (4.5-10.0)
[2022-11-20] MEDS: methylPREDNISolone SOD SUCC 125 MG VIAL IV PUSH (00:19)
[2022-11-20] MEDS: MORPHINE SULFATE (*CRX) 4 MG/ML INJ 6 MG IV PUSH (00:19)
--- NOTE | 2022-11-20 00:21 | ED.GENADULT ---
HPI - General Adult General Chief complaint: Shortness of Breath/Dyspnea Stated complaint: shortness of breath Time Seen by Provider: 11/19/22 23:45 History of Present Illness HPI narrative: 62-year-old male with history of COPD on 3 L at home with history of hypoxemia hypercapnic respiratory failure, with previous endobronchial valve insertion presented to the emergency department for evaluation of worsening shortness of breath over the last few days. Patient states that he often has left-sided chest pain but is now having right-sided back pain that has been constant over the last few days. Patient denies any fevers but has had increased cough and congestion. Related Data Home Medications Medication Instructions Recorded Confirmed hydrocodone 5 mg-acetaminophen 325 1 tablet PO Q6H PRN Pain 05/22/22 10/25/22 mg tablet roflumilast 500 mcg tablet 500 mcg PO DAILY 05/22/22 10/25/22 (Daliresp) Allergies Allergy/AdvReac Type Severity Reaction Status Date / Time No Known Allergies Allergy Verified 11/20/22 00:11 Review of Systems Review of Systems: CONSTITUTIONAL: See HPI EYES: Denies visual changes, redness, or discharge. ENT: Denies rhinorrhea, congestion, sore throat, or otalgia. CARDIOVASCULAR: Denies chest pain, palpitations, or edema. RESPIRATORY: See HPI GASTROINTESTINAL: Denies abdominal pain, nausea, vomiting, or diarrhea. GENITOURINARY: Denies dysuria or hematuria. SKIN: Denies rash or itching. MUSCULOSKELETAL: Denies back pain, joint pain, or myalgia. NEUROLOGIC: Denies headache, numbness, or weakness. [facility] Past Medical History Medical History BPH (benign prostatic hyperplasia) Chronic deep vein thrombosis (DVT) Linear echogenic filling defect in the right femoral vein, likely chronic thrombus on venous dopplers 11/2020. Chronic respiratory failure with hypoxia, on home oxygen therapy COPD with emphysema Chronic steroid therapy, 10 milligrams prednisone daily. Gastroesophageal reflux disease Hiatal hernia Osteoarthritis Pneumonia (~2019) Surgical History Surgical History H/O colonoscopy History of bilateral cataract extraction History of lung surgery Family History Family History Father Acute myocardial infarction Congestive heart failure Lung cancer Mother Diabetes mellitus Dementia Sibling Diabetes mellitus Lung cancer Social History Social History Social History: Surrogate decision maker: Sloane Mesa, . Code status: Full code. Smoking packs per day: 1 Smoking cigarettes per day: 20.0 Years smoked: 48 Smoking pack-years: 48.00 Smoking status: Former smoker Tobacco type: cigarettes Second hand tobacco smoke exposure: Yes Additional smoking assessment comments: pt used to smoke cigarettes and crack cocaine for 38 years Quit december 2017 Alcohol intake: current Drinks per week: 2 Alcohol use details: Patient currently drinks 2 beers and a shot on the weekends Substance use: former Substance use type: crack/cocaine Living arrangements: with family Additional living arrangements comments: Patient lives with his in [place]. 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 Gender identity (if verbalized by the patient): Male Sexual Orientation (if Verbalized by the Patient): Straight or Heterosexual Spiritual care concerns: No Exam Narrative: APPEARANCE: Anxious with mild distress HEAD: normocephalic, atraumatic. EYES: PERRLA/EOMI, conjunctivae clear. NOSE: Normal no drainage EARS:TMS clear with good light reflex. THROAT: Pharynx clear, no exudate. NECK: Supple. No adenopathy, no masses. RESPIRATORY: Tachypneic with decre
[2022-11-20] MEDS: LORazepam INJ (*CRX) 2 MG/ML VIAL 0.5 MG IV PUSH ×2 (00:25→02:22)
[2022-11-20] MEDS: METOPROLOL TARTRATE INJ 5 MG/5 ML VIAL IV PUSH ×2 (00:25→02:31)
[2022-11-20 00:26] LABS: Band Neutrophils Percent 3 % (0-6); Lymphocytes Absolute Manual 1.76 K/mm3 (1.1-4.5); Monocytes Absolute Manual 2.26 K/mm3 (0.1-0.90); Monocytes Percent Manual 9 % (3-9); Neutrophils Absolute Manual 21.16 K/mm3 (1.3-6.7); Neutrophils Percent Manual 81 % (46-73); Total Cells Counted 100
[2022-11-20 00:27] LABS: Anisocytosis 1+ (NORMAL); Platelet Estimate Adequate (Adequate); Schistocytes None Seen (NORMAL)
[2022-11-20] MEDS: SODIUM CHLORIDE 0.9% IV 1,000 ML 999 ML IV CONT (00:29)
[2022-11-20 00:34] LABS: Troponin I < 0.012 ng/mL (0.000-0.034)
[2022-11-20 00:39] LABS: Alanine Aminotransferase 24 U/L (6-50); Albumin Level 4.6 g/dL (3.5-5.1); Alkaline Phosphatase 128 U/L (38-126); Anion Gap 9 mmol/L (8-16); Aspartate Amino Transferase 42 U/L (17-59); Bilirubin,Total 0.9 mg/dL (0.2-1.3); Blood Urea Nitrogen 25 mg/dL (9-20); Calcium 8.8 mg/dL (8.4-10.2); Carbon Dioxide 25 mmol/L (22-30); Chloride 104 mmol/L (98-107); Estimated CRCL calculation 68 ml/min; Estimated Glomerular Filt Rate > 60; Glucose 91 mg/dL (65-110); Potassium 4.7 mmol/L (3.4-5.0); Sodium 138 mmol/L (137-145)
[2022-11-20 00:48] LABS: Influenza A QL RT-PCR Negative (Negative); Influenza B QL RT-PCR Negative (Negative); RSV RNA, RT-PCR Negative (Negative); SARS-CoV-2 RNA PCR Negative
--- NOTE | 2022-11-20 01:41 | PC.NURSE ---
Respiratory called patient's ordered breathing treatment.
--- NOTE | 2022-11-20 01:59 | PM.IMHP ---
H&P: HPI History of Present Illness Date/Time: 11/20/22 01:59 Chief Complaint: Cough Narrative: This is a 62-year-old male with past medical history significant for chronic hypoxic respiratory failure on supplemental oxygen 3 L by nasal cannula at nighttime patient uses a home ventilator. Patient comes to the emergency room due to persistent cough for the last 3 days or so, shortness of breath, sputum production of thick yellow sputum. At the time of my visit patient is on BiPAP most of the history has been obtained from who is sitting at bedside. Patient was not able to participate in pulmonary rehabilitation earlier in the day due to persistent cough and shortness of breath. A CT of the chest showed chronic collapse and atelectasis of right upper lobe. ABG was reported as pH is 7.29, PCO2 of 52, PO2 140. Patient has been admitted for further evaluation management and treatment. Review of Systems Review of Systems: ROS unobtainable: Yes unobtainable due to medical condition (Respiratory failure on BiPAP) PMFSH Past Medical History Medical History BPH (benign prostatic hyperplasia) Chronic deep vein thrombosis (DVT) Linear echogenic filling defect in the right femoral vein, likely chronic thrombus on venous dopplers 11/2020. Chronic respiratory failure with hypoxia, on home oxygen therapy COPD with emphysema Chronic steroid therapy, 10 milligrams prednisone daily. Gastroesophageal reflux disease Hiatal hernia Osteoarthritis Pneumonia (~2019) Surgical History Surgical History H/O colonoscopy History of bilateral cataract extraction History of lung surgery Family History Family History Father Acute myocardial infarction Congestive heart failure Lung cancer Mother Diabetes mellitus Dementia Sibling Diabetes mellitus Lung cancer Social History Social History Social History: Surrogate decision maker: Sloane Mesa, . Code status: Full code. Smoking packs per day: 1 Smoking cigarettes per day: 20.0 Years smoked: 48 Smoking pack-years: 48.00 Smoking status: Former smoker Tobacco type: cigarettes Second hand tobacco smoke exposure: Yes Additional smoking assessment comments: pt used to smoke cigarettes and crack cocaine for 38 years Quit december 2017 Alcohol intake: current Drinks per week: 2 Alcohol use details: Patient currently drinks 2 beers and a shot on the weekends Substance use: former Substance use type: crack/cocaine Living arrangements: with family Additional living arrangements comments: Patient lives with his in [place]. 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 Gender identity (if verbalized by the patient): Male Sexual Orientation (if Verbalized by the Patient): Straight or Heterosexual Spiritual care concerns: No Meds Home Medications and Allergies Home Medications Medication Instructions Recorded Confirmed Type hydrocodone 5 mg-acetaminophen 325 1 tablet PO Q6H PRN Pain 05/22/22 10/25/22 History mg tablet roflumilast 500 mcg tablet 500 mcg PO DAILY 05/22/22 10/25/22 History (Daliresp) fluticasone propionate 50 See Rx Instructions .Route 06/07/22 10/25/22 Rx mcg/actuation nasal .COMPLEX #16 mL spray,suspension glycopyrrolate 25 mcg/mL solution 1 ml inhalation DAILY #60 mL 07/05/22 10/25/22 Rx for nebulization-nebulizer accessor. (Jessi Lundberg Refill) prednisone 5 mg tablet 5 mg PO DAILY #100 tabs 07/05/22 10/25/22 Rx mupirocin 2 % topical ointment See Rx Instructions .Route 09/13/22 10/25/22 Rx .COMPLEX #22 grams polyethylene glycol 3350 17 17 g PO DAILY prn #119 grams 10/06/22 10/25/22 Rx gr
[2022-11-20 02:35] LABS: Alveolar/Arterial O2 Gradient 150.3 mmHg; Base Excess ABG -2.1 mEq/l (+/-2.0); Fractional Inspired Oxygen 50 %; HCO3 ABG 25.1 mEq/l (22.0-26.0); Oxygen Content ABG 18.8 %vol (16.0-22.0); Oxygen Saturation ABG 98.6 % (95.0-100.0); PCO2 ABG 52.6 mmHg (35.0-45.0); PO2 FiO2 Ratio Arterial Blood 2.94 %; Total Hemoglobin 13.6 g/dL (12.0-18.0)
[2022-11-20 02:37] LABS: pH ABG 7.296 (7.350-7.450)
[2022-11-20 02:38] LABS: Device NON-INVASIVE VENT; Modified Allen's Test Pass; Site Drawn RIGHT RADIAL
[2022-11-20 02:39] LABS: Non-Invasive Expiratory Pressure 5 CMH2O; Non-Invasive Inspiratory Pressure 10 CMH2O; Non-Invasive Vent Rate 20 /MIN
--- NOTE | 2022-11-20 02:55 | PC.NURSE ---
Patient care report called GORDON Ellison. All questions answered at this time.
--- NOTE | 2022-11-20 03:58 | ADMGEN ---
This patient, Bentley Mesa, was admitted to IMU Room 201-01 at 0250. Patient/family oriented to hospital policies and general routines including ID bracelet, bed and alarms, visiting hours, pain management, procedures, bathroom and other care routines, personal items, smoking policy, room service/diet, and visiting hours. Information on how to activate the Rapid Response Team has been discussed. Patient/Family are encouraged to report perceived risks to care and to ask questions if they do not understand what they are told or what they should do.
[2022-11-20] MEDS: SODIUM CHLORIDE 0.9% IV 1,000 ML 100 ML IV CONT (04:31)
[2022-11-20 05:37] LABS: Troponin I < 0.012 ng/mL (0.000-0.034)
[2022-11-20] MEDS: MORPHINE SULFATE (*CRX) 4 MG/ML INJ IV PUSH ×2 (06:49→09:20)
[2022-11-20] MEDS: methylPREDNISolone SOD SUCC 125 MG VIAL 60 MG IV PUSH ×3 (06:51→19:32)
--- NOTE | 2022-11-20 07:16 | PM.CNPUL ---
Assessment and Plan Assessment and plan (1) Acute exacerbation of chronic obstructive airways disease: Code(s): J44.1 - Chronic obstructive pulmonary disease with (acute) exacerbation Status: Acute Assessment and Plan: GOLD grade 3 group E COPD. 61-year-old man with a history of severe COPD (quit tobacco 02/2019) with an FEV1 of 0.74 L, 30% predicted on 02/14/2019, status post RUL endobronchial valve, on 3 L home O2 and noninvasive ventilator at night (through IV respiratory care).? Patient is followed in the Pulmonary Clinic in last seen on 08/30/2022 and he Had improved and was down to prednisone 5 mg every other day, Azithromycin 3 times a week, he was off Daliresp and he was exercising. The plan was to taper him off of prednisone over the next few weeks. currently the patient has worsening shortness of breath, cough, increased congestion, expiratory wheezes, leukocytosis and a CT angiogram of the chest that is negative for PE negative for pneumonia. His COVID, influenza and RSV RT PCR studies are negative. Patient has a COPD exacerbation. Agree with Solu-Medrol 60 Q 6, levalbuterol 1.25 Q 6, ipratropium 0.5 mg nebs q.6 hours. Patient is on ceftriaxone and azithromycin for possible pneumonia. will follow with you. (2) Acute and chronic respiratory failure with hypoxia: Code(s): J96.21 - Acute and chronic respiratory failure with hypoxia Status: Acute Assessment and Plan: Patient is home a on a home noninvasive ventilator with the AVAPS-Ae mode and I will attempt to obtain a download from his DME company, IV respiratory care. Currently he is on AVAPS mode with a rate of 20, tidal volume 500, EPAP 5, minimal inspiratory pressure 6, maximal inspiratory pressure 25, inspiratory time 1.2, rise of 5 and 30% and he said that the settings were comfortable. I have told the nurse to tell the patient's family to bring in his home noninvasive ventilator so that when he is improved and can tolerate his home noninvasive ventilator will place him on this. History of Present Illness History of Present Illness Consult date: 11/20/22 Chief complaint: COPD, Tachycardia Narrative: 61-year-old man with a history of severe COPD (quit tobacco 02/2019) with an FEV1 of 0.74 L, 30% predicted on 02/14/2019, status post RUL endobronchial valve, on 3 L home O2 and noninvasive ventilator at night.? Patient is followed in the Pulmonary Clinic in last seen on 08/30/2022 and he Had improved and was down to prednisone 5 mg every other day, Azithromycin 3 times a week, he was off Daliresp and he was exercising. The plan was to taper him off of prednisone over the next few weeks. Patient presented to the emergency department on 11/20/2019 2 with a few days of shortness of breath, right back pain, chest congestion and cough. he was on 3 L nasal cannula saturations 82%, heart rate was 156 he had expiratory wheezes. His white blood cell count was 25.2, his creatinine was 1.2 his COVID, influenza and RSV RT PCR studies were negative. He had a CT angiogram of the chest that showed apical centrilobular emphysema, no PE, right upper lobe endobronchial valves with complete collapse of the right upper lobe. Patient was treated for COPD exacerbation with BiPAP and subsequent blood pass on BiPAP rate of 20, pressures 10/5 and 50% was 7.30/53/147. Patient admission serum bicarb was 25. Patient was treated with Solu-Medrol, ceftriaxone, azithromycin, and bronchodilators. Patient was given morphine for his pain. Patient was transferred to the floor and when I entered the room use on BiPAP 14/6 rate of 20 tidal volumes 549 and his heart rate was 150 and he was in respiratory distress. repeat blood gas was 7.36/45/81. He said the machine was not comfortable and I changed him to an AVAPS mode with a rate of 20, tidal volume 500, EPAP 5, minimal inspiratory pressure 6, maximal inspiratory pressure 25, inspiratory time 1.2, rise of 5
[2022-11-20] MEDS: PROCHLORPERAZINE EDISYLATE 10 MG/2 ML VIAL IV PUSH (07:45)
[2022-11-20 08:03] LABS: Alveolar/Arterial O2 Gradient 81.1 mmHg; Carboxyhemoglobin 0.3 % THb (0-2.0); Fractional Inspired Oxygen 30 %; HCO3 ABG 24.6 mEq/l (22.0-26.0); Methemoglobin ABG 0.3 %THb (0-1.5); Oxygen Content ABG 17.2 %vol (16.0-22.0); Oxygen Saturation ABG 95.4 % (95.0-100.0); PCO2 ABG 44.5 mmHg (35.0-45.0); PO2 ABG 80.5 mmHg (80.0-100.0); PO2 FiO2 Ratio Arterial Blood 2.68 %; Reduced Hemoglobin 4.4 %THb (0-5.0); Total Hemoglobin 12.8 g/dL (12.0-18.0)
[2022-11-20 08:04] LABS: Site Drawn RIGHT BRACHIAL
[2022-11-20 08:06] LABS: Device NON-INVASIVE VENT; Non-Invasive Expiratory Pressure 6 CMH2O; Non-Invasive Inspiratory Pressure 14 CMH2O; Non-Invasive Vent Rate 20 /MIN
--- NOTE | 2022-11-20 08:07 | PC.NURSE ---
1889 Call to , Sloane about patient's condition. Patient very anxious and in respiratory distress even with bipap. MD to come see patient, family aware patient may need to be moved to ICU. states they have not discussed code status and will come up to the hospital BERNARDO.
--- NOTE | 2022-11-20 08:10 | ECG_ITS ---
Measurements Intervals Miles Rate: 139 P: 64 [place]: 144 QRS: 41 QRSD: 83 T: 72 QT: 284 QTc: 433 Interpretive Statements SINUS TACHYCARDIA MINIMAL ST DEPRESSION [0.025+ mV ST DEPRESSION] ABNORMAL RHYTHM ECG INTERPRETATION BASED ON A DEFAULT AGE OF 40 YEARS COMPARED TO ECG 11/19/2022 23:49:19 NO SIGNIFICANT CHANGES Electronically Signed On 11-20-2022 14:49:52 MOTORCYCLE REPAIR SHOP SUPERVISOR by Colleen Sawyer M.D.
[2022-11-20 09:06] LABS: Magnesium 2.2 mg/dL (1.6-2.3)
[2022-11-20 09:11] LABS: Anion Gap 6 mmol/L (8-16); Blood Urea Nitrogen 22 mg/dL (9-20); Carbon Dioxide 26 mmol/L (22-30); Chloride 104 mmol/L (98-107); Estimated CRCL calculation 81 ml/min; Estimated Glomerular Filt Rate > 60; Glucose 129 mg/dL (65-110); Potassium 4.7 mmol/L (3.4-5.0); Sodium 136 mmol/L (137-145)
[2022-11-20 09:20] LABS: NT Pro B Type Natriuretic Pept 307 pg/mL (19.9-100)
[2022-11-20] MEDS: FUROSEMIDE INJ 40 MG/4 ML VIAL IV PUSH (09:20)
--- NOTE | 2022-11-20 09:35 | PC.NURSE ---
This patient, Bentley Mesa, was transferred to ICU 3 on 11/20/22 at 0935. Personal belongings sent with patient. Report given to Elisha LEYVA. Appropriate documentation sent with patient.
[2022-11-20] MEDS: PROPOFOL IV EMULSION 100 ML 12.54 MG IV CONT (10:01)
[2022-11-20] MEDS: ROCURONIUM BROMIDE 50 MG/5 ML VIAL IV PUSH (10:03)
[2022-11-20] MEDS: ETOMIDATE 20 MG/10 ML AMPUL 24 MG IV PUSH (10:03)
--- NOTE | 2022-11-20 10:14 | PCRCNOTE ---
RT assisted with intubation. Patient intubated with size 8 ETT, 24 cm @ lip. CO2 detector detected color change, bilat breath sounds heard, Chest X-ray ordered to confirm tube placement. ETT tube jules placed to secure ETT at 24 cm @ lip. Patient placed on vent according to Dr. Linda duncan.
[2022-11-20 10:26] LABS: Triglycerides 59 mg/dL (<150)
--- NOTE | 2022-11-20 10:34 | PC.NURSE ---
0700 Patient nauseous, diaphoretic, and tachypneic. shift manager RN placed multiple calls to hospitalist and publishing specialist r/t pt status and requesting medications. 0710 Pt removing BiPAP and complaining of burning right sided chest pain that radiates to his back. Requesting MD to bedside, informed insulation cupola charger. 0730 Pt continues to remove BiPAP and increasingly short of breath and restless. Orders for ABG from Dr Woodall. Continuing to ask for MD to bedside. 0745 Dr Woodall at bedside. Administered Compazine. 0810 Dr Ham to bedside. Patient placed in AVAPs mode on BiPAP. Patient calm and work of breathing eased with respirations slowing to the 30s. 0900 Patient removed BiPAP and complained of 10/10 burning back pain. RR 40-50. MD, Family Program Specialist, RT, insulation cupola charger notified of patient status. 0920 Administered PRN morphine and IVP Lasix. Order obtained to place Elias catheter. 0935 Orders to transfer patient to ICU to intubate.
--- NOTE | 2022-11-20 10:52 | WPDCNINT ---
Assessment and Plan Assessment and plan (1) Acute and chronic respiratory failure with hypoxia: Code(s): J96.21 - Acute and chronic respiratory failure with hypoxia Status: Acute Assessment and Plan: Likely related to COPD exacerbation, possible underlying pneumonia -patient presented with dyspnea, cough productive with yellow sputum -11/20/2022: Impending respiratory failure requiring intubation which was uneventful -currently on CMV mode of ventilation, peep of 5, 40% FiO2 -post intubated chest x-ray was reviewed -post intubation ABGs reviewed, will increase tidal volume to 500 mL -patient is on azithromycin and ceftriaxone (11/19) -continue bronchodilators -will add budesonide nebulizer (2) Acute exacerbation of chronic obstructive pulmonary disease: Code(s): J44.1 - Chronic obstructive pulmonary disease with (acute) exacerbation Status: Acute Assessment and Plan: Continue mechanical ventilation, steroids, bronchodilators and antibiotics (3) Chest pain: Code(s): R07.9 - Chest pain, unspecified Status: Acute Assessment and Plan: 11/20/2022 chest CTA: No evidence of pulmonary embolism, aortic dissection or aortic aneurysm. Chronic complete right upper lobe collapse as seen on prior exam, minimal emphysema -patient does have a history of chronic pain syndrome, -received multiple doses of morphine -patient be started fentanyl infusion as he is intubated (4) Chronic deep vein thrombosis (DVT): Qualifiers: DVT location: lower extremity Affected thrombotic vein of extremity: unspecified vein of extremity Laterality: unspecified laterality Qualified Code(s): I82.509 - Chronic embolism and thrombosis of unspecified deep veins of unspecified lower extremity Code(s): I82.509 - Chronic embolism and thrombosis of unspecified deep veins of unspecified lower extremity Status: Acute Assessment and Plan: History of chronic DVTs -will obtain bilateral lower extremity venous Doppler -11/20/2022 CTA chest was negative for PE (5) Chronic pain syndrome: Code(s): G89.4 - Chronic pain syndrome Status: Acute Assessment and Plan: Patient does take Vicodin at home (6) Gastroesophageal reflux disease: Code(s): K21.9 - Gastro-esophageal reflux disease without esophagitis Status: Acute Assessment and Plan: Will start Protonix Plan DVT prophylaxis: Lovenox SQ Stress ulcer prophylaxis: Protonix Nutrition: Will start tube feeds Code Status: Full code Critical Care Time Spent: 51 minutes Due to a high probability of clinically significant, life threatening deterioration, the patient required my highest level of preparedness to intervene emergently and I personally spent this critical care time directly and personally managing the patient. This critical care time included obtaining a history; examining the patient; pulse oximetry; ordering and review of studies; arranging urgent treatment with development of a management plan; evaluation of patient's response to treatment; frequent reassessment; and discussions with other providers. It was exclusive of separately billable procedures and treating other patients and teaching time. Please see Assessment and Plan section and the rest of the note for further information on patient assessment and treatment This dictation may have been done utilizing a voice recognition system. Attempts have been made to correct errors. However, there may be uncorrected grammatical, spelling, and recognitions errors present. Tack Cutter Consult Note Consult date: 11/20/22 Reason for consult: Shortness of breath, acute on chronic respiratory failure, right-sided chest pain HPI: Bentley Mesa is a 62 year old male with significant past medical history of chronic respiratory failure with hypoxia, 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, on 3 L of oxygen at home, chronic deep vein thrombosis, J LUIS
[2022-11-20] MEDS: MIDAZOLAM HCL (*CRX) 2 MG/2 ML VIAL IV PUSH (11:04)
[2022-11-20] MEDS: FENTANYL 2,500MCG/NS250ML(*CRX 2,500 MCG/250 ML BAG IV CONT (11:07)
[2022-11-20 11:08] LABS: Alveolar/Arterial O2 Gradient 153.6 mmHg; Fractional Inspired Oxygen 40 %; HCO3 ABG 26.8 mEq/l (22.0-26.0); Oxygen Content ABG 17.2 %vol (16.0-22.0); Oxygen Saturation ABG 92.9 % (95.0-100.0); Oxyhemoglobin 92.7 % THb (90.0-100.0); PCO2 ABG 52.7 mmHg (35.0-45.0); PO2 FiO2 Ratio Arterial Blood 1.77 %; Total Hemoglobin 13.2 g/dL (12.0-18.0); pH ABG 7.324 (7.350-7.450)
[2022-11-20 11:09] LABS: Device VENTILATOR; Modified Allen's Test Pass; Site Drawn RIGHT RADIAL
[2022-11-20 11:11] LABS: Arterial Blood Gas Ventilator rate 22 /MIN
[2022-11-20 11:13] LABS: Arterial Blood Gas PEEP 5 cmH2O; Arterial Blood Gas Vent Mode CMV
--- NOTE | 2022-11-20 11:24 | P.PCNBED_ITS ---
Procedures Intubation Intubation Date: 11/20/22 Intubation Time: 09:48 Consent: Consent was obtained from the patient as well as his after explaining to them the rationale for intubation since patient was having impending respiratory failure. Both of them were agreeable to intubation A pre-procedural Time-Out was completed immediately before starting the procedure and confirmed: Patient Identification, Site, Procedure, Patient Posi tion and the Availability of Requisite Equipment: Yes Sedative: etomidate Paralytic: rocuronium Laryngoscope: fiber optic video scope Assist device used: fiber optic device ET tube size: 8 Tube secured depth (cm): 24 Tube secured location: lips Tube placement confirmation: visualized tube passing through cords, equal breath sounds bilaterally, no breath sounds over epigastrium and confirmation by capnometry Patient tolerated procedure: well Intubation complications: none Additional comments: Chest x-ray shows endotracheal tube and nasogastric tube in adequate position
[2022-11-20] MEDS: ENOXAPARIN 40 MG/0.4 ML SYRINGE SUB-Q (12:02)
[2022-11-20] MEDS: PANTOPRAZOLE SODIUM IV 40 MG VIAL IV PUSH (12:03)
[2022-11-20] MEDS: PROPOFOL IV EMULSION 100 ML 31.35 MG IV CONT ×4 (12:26→22:14)
[2022-11-20] MEDS: BUDESONIDE RESPULE NEB 0.5 MG/2 ML AMP INHALATION ×2 (13:10→20:13)
[2022-11-20] MEDS: IPRATROPIUM BR 0.02% INH SOLN 0.5 MG/2.5 ML VIAL INHALATION ×2 (13:10→20:13)
--- NOTE | 2022-11-20 14:23 | PC.NURSE ---
0952 Patient arrived from IMU. Intubated on arrival. OG placed, chest and KUB x rays obtained. Propofol infusion started. bedside.
--- NOTE | 2022-11-20 15:43 | PM.IMPN ---
Progress Note: A&P Assessment and Plan (1) Acute and chronic respiratory failure with hypoxia: Code(s): J96.21 - Acute and chronic respiratory failure with hypoxia Status: Acute Assessment and Plan: Admit to IMU Continuous BiPAP Breathing treatments Systemic steroids Continue antibiotic Pulmonology consult 11/20/2022 interval history: patient with history of end-stage COPD and chronic respiratory failure on BiPAP presented emergency department with complaint of shortness of breath was found to have exacerbation of COPD, patient was breathing very rapidly did not wanted to keep his BiPAP, patient was retracting any impending respiratory failure discussed with the superintendent marine who examined the patient and recommended patient needs to be intubated and placed on ventilator, patient himself and his are in agreement. patient being transferred ICU, there he will be intubated (2) Acute exacerbation of chronic obstructive pulmonary disease: Code(s): J44.1 - Chronic obstructive pulmonary disease with (acute) exacerbation Status: Acute Assessment and Plan: Breathing treatments Systemic steroid (3) Chronic pain syndrome: Code(s): G89.4 - Chronic pain syndrome Status: Acute Assessment and Plan: Continue pain management (4) Gastroesophageal reflux disease: Code(s): K21.9 - Gastro-esophageal reflux disease without esophagitis Status: Acute Assessment and Plan: PPI Subjective Date/time seen: 11/20/22 15:43 Cough Narrative: This is a 62-year-old male with past medical history significant for chronic hypoxic respiratory failure on supplemental oxygen 3 L by nasal cannula at nighttime patient uses a home ventilator.? Patient comes to the emergency room due to persistent cough for the last 3 days or so, shortness of breath, sputum production of thick yellow sputum.? At the time of my visit patient is on BiPAP most of the history has been obtained from who is sitting at bedside.? Patient was not able to participate in pulmonary rehabilitation earlier in the day due to persistent cough and shortness of breath.? A CT of the chest showed chronic collapse and atelectasis of right upper lobe.? ABG was reported as pH is 7.29, PCO2 of 52, PO2 140.? Patient has been admitted for further evaluation management and treatment. 11/20/2022 interval history: patient with history of end-stage COPD and chronic respiratory failure on BiPAP presented emergency department with complaint of shortness of breath was found to have exacerbation of COPD, patient was breathing very rapidly did not wanted to keep his BiPAP, patient was retracting any impending respiratory failure discussed with the superintendent marine who examined the patient and recommended patient needs to be intubated and placed on ventilator, patient himself and his are in agreement. patient being transferred ICU, there he will be intubated Review of Systems Review of Systems: ROS unobtainable: Yes unobtainable due to medical condition Exam Narrative: moderately obese Patient is comfortable, NAD HEENT: eyes are clear and none icteric LUNGS: bilateral poor air entry with wheezing HEART: RR S1S2 ABD: obese distended Lower extremities: no edema SKIN: nonjaundiced Neuro: grossly intact. Objective Data Vital Signs Vital Signs: Vital Signs - 24 hr 11/20/22 00:02 11/20/22 00:10 11/20/22 00:12 Temperature 97.5 F L Pulse Rate 156 H 163 H 151 H Respiratory Rate 30 H 35 H Blood Pressure 126/87 Pulse Oximetry 82 L 100 Oxygen Delivery Nasal Cannula BiPAP Oxygen Flow Rate 3 Fraction of Inspired Oxygen 11/20/22 00:25 11/20/22 00:05 11/20/22 00:17 Temperature Pulse Rate 174 H 155 H 161 H Respiratory Rate 35 H 33 H Blood Pressure Pulse Oximetry Oxygen Delivery Oxygen Flow Rate Fraction of Inspired Oxygen 11/20/22 00:35 11/20/22 01:05 11/20/22 02:31 Temperature Pul
[2022-11-20 18:20] LABS: Glucose Point of Care 145 mg/dl (65-105)
[2022-11-20] MEDS: MINERAL OIL/WHITE PETROLATUM OINTMENT 1 APPLIC EACH EYE (20:10)
[2022-11-21] VITALS (50 sets, daily range): BP systolic 95–125; BP diastolic 68–86; PULSE 72–125; RESP 22–40; TEMP 36.5–37.4; O2SAT 90–97
[2022-11-21] MEDS: methylPREDNISolone SOD SUCC 125 MG VIAL 60 MG IV PUSH ×2 (01:03→06:14)
[2022-11-21 01:11] LABS: Glucose Point of Care 158 mg/dl (65-105)
[2022-11-21] MEDS: PROPOFOL IV EMULSION 100 ML 31.35 MG IV CONT ×4 (01:19→09:46)
[2022-11-21] MEDS: IPRATROPIUM BR 0.02% INH SOLN 0.5 MG/2.5 ML VIAL INHALATION ×4 (02:18→20:20)
[2022-11-21 03:43] LABS: Basophils Absolute Auto 0.1 K/mm3 (0.0-0.1); Basophils Percent Auto 0.2 % (0.2-1.2); Hematocrit 32.9 % (42.0-52.0); Hemoglobin 10.8 g/dL (14.0-18.0); Immature Granulocyte Absolute 0.29 K/mm3 (0.00-0.031); Immature Granulocyte Percent A 1.1 % (0-0.5); Lymphocytes Absolute Auto 0.54 K/mm3 (0.9-3.2); Lymphocytes Percent Auto 2.1 % (18.3-44.2); Mean Corpuscular HGB Conc 32.8 g/dl (32-36); Mean Corpuscular Hemoglobin 30.5 pg (26-34); Mean Corpuscular Volume 92.9 fl (80-100); Mean Platelet Volume 10.7 fl (7.4-10.4); Monocytes Absolute Auto 1.8 K/mm3 (0.1-0.6); Monocytes Percent Auto 7.1 % (2.6-8.5); Neutrophils Percent Auto 89.5 % (45.5-73.1); Platelet Count Result 323 k/mm3 (150-375); Red Blood Count 3.54 M/mm3 (4.6-6.20); Red Cell Distribution Width 15.4 % (11.5-14.5); White Blood Count 25.7 K/mm3 (4.5-10.0)
[2022-11-21 03:56] LABS: Lactic Acid Reflex 1.2 mmol/L (0.7-2.0)
[2022-11-21 04:04] LABS: Alanine Aminotransferase 19 U/L (6-50); Albumin Level 3.5 g/dL (3.5-5.1); Alkaline Phosphatase 102 U/L (38-126); Anion Gap 4 mmol/L (8-16); Aspartate Amino Transferase 21 U/L (17-59); Bilirubin,Total 0.4 mg/dL (0.2-1.3); Blood Urea Nitrogen 21 mg/dL (9-20); Calcium 7.9 mg/dL (8.4-10.2); Carbon Dioxide 29 mmol/L (22-30); Chloride 103 mmol/L (98-107); Estimated CRCL calculation 99 ml/min; Estimated Glomerular Filt Rate > 60; Glucose 190 mg/dL (65-110); Magnesium 2.8 mg/dL (1.6-2.3); Phosphorus 2.3 mg/dL (2.5-4.5); Potassium 3.6 mmol/L (3.4-5.0); Sodium 136 mmol/L (137-145)
[2022-11-21 04:29] LABS: Smudge Cells PRESENT
[2022-11-21 04:30] LABS: Large Platelets Present; Platelet Estimate Adequate (Adequate)
[2022-11-21 04:31] LABS: Anisocytosis 1+ (NORMAL); Hypochromasia 1+ (NORMAL); Macrocytosis 1+ (NORMAL); Microcytosis 1+ (NORMAL)
[2022-11-21 04:33] LABS: CRP > 45.0 mg/dL (<1.0)
[2022-11-21 04:34] LABS: Schistocytes None Seen (NORMAL)
[2022-11-21] MEDS: MIDAZOLAM HCL (*CRX) 2 MG/2 ML VIAL IV PUSH ×2 (05:05→08:33)
[2022-11-21 05:57] LABS: Alveolar/Arterial O2 Gradient 163.2 mmHg; Base Excess ABG 4.1 mEq/l (+/-2.0); Carboxyhemoglobin 0.3 % THb (0-2.0); Fractional Inspired Oxygen 40 %; HCO3 ABG 28.7 mEq/l (22.0-26.0); Methemoglobin ABG 0.1 %THb (0-1.5); Oxygen Content ABG 15.4 %vol (16.0-22.0); Oxyhemoglobin 93.4 % THb (90.0-100.0); PCO2 ABG 43.2 mmHg (35.0-45.0); PO2 ABG 72.3 mmHg (80.0-100.0); PO2 FiO2 Ratio Arterial Blood 1.81 %; Reduced Hemoglobin 6.2 %THb (0-5.0); Total Hemoglobin 11.7 g/dL (12.0-18.0); pH ABG 7.441 (7.350-7.450)
[2022-11-21 06:00] LABS: Device VENTILATOR; Modified Allen's Test Pass; Site Drawn RIGHT BRACHIAL
[2022-11-21 06:01] LABS: Arterial Blood Gas PEEP 5 cmH2O; Arterial Blood Gas Tidal Volume 500 ml; Arterial Blood Gas Vent Mode CMV; Arterial Blood Gas Ventilator rate 22 /MIN
[2022-11-21] MEDS: DORNASE ALFA INH SOLN 1 MG/ML 2.5 ML AMP 2.5 MG INHALATION ×2 (07:59→20:20)
[2022-11-21] MEDS: BUDESONIDE RESPULE NEB 0.5 MG/2 ML AMP INHALATION ×2 (08:00→20:20)
[2022-11-21] MEDS: ROFLUMILAST 500 MCG TABLET PO (08:42)
[2022-11-21] MEDS: ASPIRIN 81 MG CHEWABLE TABLET PO (08:42)
[2022-11-21] MEDS: PANTOPRAZOLE SODIUM IV 40 MG VIAL IV PUSH (08:44)
[2022-11-21] MEDS: ENOXAPARIN 40 MG/0.4 ML SYRINGE SUB-Q (08:44)
[2022-11-21] MEDS: POTASSIUM/PHOSPHORUS/SODIUM 1.5 GM PACKET 1 PACKET PO (08:44)
[2022-11-21] MEDS: LATANOPROST 0.005% OP SOLN 2.5 ML BTL 1 DROP EACH EYE (08:45)
[2022-11-21] MEDS: MINERAL OIL/WHITE PETROLATUM OINTMENT 1 APPLIC EACH EYE ×2 (08:56→20:23)
[2022-11-21] MEDS: MIDAZOLAM 100MG/NS 100ML(*CRX) 100 MG/100 ML BAG IV CONT (09:05)
--- NOTE | 2022-11-21 09:24 | PM.PNPUL ---
Progress Note: A&P Assessment and Plan (1) Acute exacerbation of chronic obstructive airways disease: Code(s): J44.1 - Chronic obstructive pulmonary disease with (acute) exacerbation Status: Acute Assessment and Plan: GOLD grade 3 group E COPD. 61-year-old man with a history of severe COPD (quit tobacco 02/2019) with an FEV1 of 0.74 L, 30% predicted on 02/14/2019, status post RUL endobronchial valve, on 3 L home O2 and noninvasive ventilator at night (through IV respiratory care).? Patient is followed in the [facility] in last seen on 08/30/2022 and he Had improved and was down to prednisone 5 mg every other day, Azithromycin 3 times a week, he was off Daliresp and he was exercising. The plan was to taper him off of prednisone over the next few weeks. currently the patient has worsening shortness of breath, cough, increased congestion, expiratory wheezes, leukocytosis and a CT angiogram of the chest that is negative for PE negative for pneumonia. His COVID, influenza and RSV RT PCR studies are negative. Patient has a COPD exacerbation. Agree with Solu-Medrol 60 Q 6, levalbuterol 1.25 Q 6, ipratropium 0.5 mg nebs q.6 hours. Patient is on ceftriaxone and azithromycin for possible pneumonia. patient had increased respiratory distress and difficulty tolerating BiPAP and was transferred to the ICU and intubated. 11/21 Patient remains intubated on CMV rate of 22, tidal volume 500, peep of 5, FiO2 40% with a blood gas of 7.44/43/72. Chest x-ray with right upper lobe collapse and a small right effusion. White blood cell count 25.7. Patient has no wheezes on exam. Agree with current treatment for COPD exacerbation. Would decrease Solu-Medrol to 20 mg IV q.6 hours. Antibiotics were broadened to include vancomycin, cefepime and azithromycin. Levalbuterol and ipratropium nebulizers Q 6 hours. Continue Daliresp 500 mg p.o. q.day. Patient with thick tenacious secretions and Pulmozyme nebulizers were started. Ventilator management per cardiopulmonary physical therapist. Discussed with Dr. Mckeon. Will sign off. Please re-consult as needed and when patient is extubated and transferred out of the ICU. (2) Acute and chronic respiratory failure with hypoxia: Code(s): J96.21 - Acute and chronic respiratory failure with hypoxia Status: Acute Assessment and Plan: Patient is home a on a home noninvasive ventilator with the AVAPS-Ae mode and I will attempt to obtain a download from his [employer], IV respiratory care. Currently he is on AVAPS mode with a rate of 20, tidal volume 500, EPAP 5, minimal inspiratory pressure 6, maximal inspiratory pressure 25, inspiratory time 1.2, rise of 5 and 30% and he said that the settings were comfortable. I have told the nurse to tell the patient's family to bring in his home noninvasive ventilator so that when he is improved and can tolerate his home noninvasive ventilator will place him on this. 11/21 I have a download from 08/20/2022 through 10/26/1999 23. This is through [employer]. Patient is on AVAPS-AE mode. Breath rate is auto, tidal volume 500, EPAP minimum 5, EPAP maximum 14, pressure support minimum 5, pressure support maximum 22, the ramp is off. % days used 88.2. % days used for 4 more hours 86.8%. Average tidal volume 420, average breath 17.6, average minute ventilation 8.8, average IPAP 16.2, average EPAP 7.1. average total leak is 79 liters/minute. I interpret this download as very good compliance, adequate pressures and high leak. When the patient is extubated he should be placed on hospital noninvasive ventilator with the AVAPS mode with a breath rate of 20, tidal volume 500, EPAP 7, minimal inspiratory pressure 8, maximal inspiratory pressure 25, inspiratory time 1, rise of 3. Subjective Date/time seen: 11/21/22 09:24 Interval history: 11/20/22: This is a new pulmonary consult for COPD exacerbation 61-year-old man with a history of severe COPD (qu
[2022-11-21] MEDS: MIDAZOLAM HCL (*CRX) 2 MG/2 ML VIAL 4 MG IV PUSH (09:43)
--- NOTE | 2022-11-21 09:51 | WPDINTPN ---
Progress Note: A&P Assessment and Plan (1) Acute and chronic respiratory failure with hypoxia: Code(s): J96.21 - Acute and chronic respiratory failure with hypoxia Status: Acute Assessment and Plan: Likely related to COPD exacerbation, possible underlying pneumonia -patient presented with dyspnea, cough productive with yellow sputum -11/20/2022: Impending respiratory failure requiring intubation which was uneventful -currently on CMV mode of ventilation, peep of 5, 40% FiO2 -post intubated chest x-ray was reviewed -post intubation ABGs reviewed, will increase tidal volume to 500 mL -continue bronchodilators -continue budesonide nebulizer -patient has increased secretions, have added Pulmozyme -patient is on azithromycin and ceftriaxone (11/19) -WBC count remains elevated, he will add vancomycin and cefepime (11/21) and discontinue ceftriaxone -continue Daliresp (2) Acute exacerbation of chronic obstructive pulmonary disease: Code(s): J44.1 - Chronic obstructive pulmonary disease with (acute) exacerbation Status: Acute Assessment and Plan: Continue mechanical ventilation, steroids, bronchodilators and antibiotics (3) Chest pain: Code(s): R07.9 - Chest pain, unspecified Status: Acute Assessment and Plan: 11/20/2022 chest CTA: No evidence of pulmonary embolism, aortic dissection or aortic aneurysm. Chronic complete right upper lobe collapse as seen on prior exam, minimal emphysema -patient does have a history of chronic pain syndrome, -received multiple doses of morphine -patient be started fentanyl infusion as he is intubated (4) Chronic deep vein thrombosis (DVT): Qualifiers: DVT location: lower extremity Affected thrombotic vein of extremity: unspecified vein of extremity Laterality: unspecified laterality Qualified Code(s): I82.509 - Chronic embolism and thrombosis of unspecified deep veins of unspecified lower extremity Code(s): I82.509 - Chronic embolism and thrombosis of unspecified deep veins of unspecified lower extremity Status: Acute Assessment and Plan: History of chronic DVTs -will obtain bilateral lower extremity venous Doppler -11/20/2022 CTA chest was negative for PE (5) Chronic pain syndrome: Code(s): G89.4 - Chronic pain syndrome Status: Acute Assessment and Plan: Patient does take Vicodin at home (6) Gastroesophageal reflux disease: Code(s): K21.9 - Gastro-esophageal reflux disease without esophagitis Status: Acute Assessment and Plan: Will start Protonix Plan DVT prophylaxis: Lovenox SQ Stress ulcer prophylaxis: Protonix Nutrition: Tolerating tube feeds, at goal Code Status: Full code Critical Care Time Spent: 34 minutes Discussed with patient's spouse, updated her with patient's condition and plan of care. I answered all questions Due to a high probability of clinically significant, life threatening deterioration, the patient required my highest level of preparedness to intervene emergently and I personally spent this critical care time directly and personally managing the patient. This critical care time included obtaining a history; examining the patient; pulse oximetry; ordering and review of studies; arranging urgent treatment with development of a management plan; evaluation of patient's response to treatment; frequent reassessment; and discussions with other providers. It was exclusive of separately billable procedures and treating other patients and teaching time. Please see Assessment and Plan section and the rest of the note for further information on patient assessment and treatment This dictation may have been done utilizing a voice recognition system. Attempts have been made to correct errors. However, there may be uncorrected grammatical, spelling, and recognitions errors present. Subjective Date/time seen: 11/21/22 09:51 Interval history: Reason for consult:
--- NOTE | 2022-11-21 10:52 | PCFNICU ---
ICU Rounding Note: Pt current nutrition is Vital HP at 50 ml/hr. Last recorded weight is 100.8 kg. Bowel Motility:No BM reported. Miralax is ordered PRN Labs Reviewed:Mg 2.8,BUN 21, Glu 190, Hct 32.9,Hgb 10.8 Meds Noted: Propofol at 50 lqis=627 kcals, Fentanyl, Versed, Zithromax, Solu Medrol,Lovenox. Skin: WNL Additional Notes: Patient remains on mechanical vent and tube feedings of Vital HP at 50 ml/hr and tolerating per nursing. Current Nutrition: 1920 kcals/96 gms protein/919 ml water. Flush 30 ml q 4 hours. Will continue to monitor Propofol infusion for tube feeding rate recommendations. Will monitor daily in ICU rounds and reassessing every Saturday and Saturday..
[2022-11-21 11:49] LABS: Arterial Blood Gas Tidal Volume 450 ml
[2022-11-21 12:09] LABS: Glucose Point of Care 184 mg/dl (65-105)
[2022-11-21] MEDS: methylPREDNISolone SOD SUCC 40 MG VIAL 20 MG IV PUSH ×2 (12:14→18:26)
[2022-11-21] MEDS: PROPOFOL IV EMULSION 100 ML 15.68 MG IV CONT (14:00)
[2022-11-21] MEDS: FENTANYL 2,500MCG/NS250ML(*CRX 2,500 MCG/250 ML BAG 15 MCG IV CONT (16:50)
[2022-11-21 18:55] LABS: Glucose Point of Care 166 mg/dl (65-105)
[2022-11-22] VITALS (43 sets, daily range): BP systolic 101–135; BP diastolic 73–91; PULSE 60–111; RESP 19–26; TEMP 36.9–37.2; O2SAT 94–99
[2022-11-22] MEDS: methylPREDNISolone SOD SUCC 40 MG VIAL 20 MG IV PUSH ×4 (00:37→17:23)
[2022-11-22] MEDS: MIDAZOLAM 100MG/NS 100ML(*CRX) 100 MG/100 ML BAG 6 MG IV CONT ×2 (00:37→13:56)
[2022-11-22 00:51] LABS: Glucose Point of Care 146 mg/dl (65-105)
[2022-11-22] MEDS: IPRATROPIUM BR 0.02% INH SOLN 0.5 MG/2.5 ML VIAL INHALATION ×4 (03:00→20:14)
[2022-11-22] MEDS: MIDAZOLAM HCL (*CRX) 2 MG/2 ML VIAL IV PUSH ×3 (04:10→15:24)
[2022-11-22 04:27] LABS: Hematocrit 33.6 % (42.0-52.0); Hemoglobin 10.9 g/dL (14.0-18.0); Mean Corpuscular HGB Conc 32.4 g/dl (32-36); Mean Corpuscular Hemoglobin 30.5 pg (26-34); Mean Corpuscular Volume 94.1 fl (80-100); Mean Platelet Volume 10.8 fl (7.4-10.4); Platelet Count Result 357 k/mm3 (150-375); Red Blood Count 3.57 M/mm3 (4.6-6.20); Red Cell Distribution Width 15.4 % (11.5-14.5); White Blood Count 25.2 K/mm3 (4.5-10.0)
[2022-11-22 04:39] LABS: Chloride 99 mmol/L (98-107)
[2022-11-22 04:45] LABS: Alanine Aminotransferase 22 U/L (6-50); Albumin Level 3.9 g/dL (3.5-5.1); Alkaline Phosphatase 85 U/L (38-126); Anion Gap 7 mmol/L (8-16); Aspartate Amino Transferase 26 U/L (17-59); Bilirubin,Total 0.5 mg/dL (0.2-1.3); Blood Urea Nitrogen 33 mg/dL (9-20); Calcium 8.1 mg/dL (8.4-10.2); Carbon Dioxide 27 mmol/L (22-30); Estimated CRCL calculation 89 ml/min; Estimated Glomerular Filt Rate > 60; Glucose 119 mg/dL (65-110); Magnesium 2.9 mg/dL (1.6-2.3); Phosphorus 2.6 mg/dL (2.5-4.5); Potassium 4.1 mmol/L (3.4-5.0); Sodium 133 mmol/L (137-145)
[2022-11-22 04:57] LABS: Band Neutrophils Percent 4 % (0-6); Monocytes Absolute Manual 0.75 K/mm3 (0.1-0.90); Monocytes Percent Manual 3 % (3-9); Neutrophils Absolute Manual 23.43 K/mm3 (1.3-6.7); Neutrophils Percent Manual 89 % (46-73); Platelet Estimate Adequate (Adequate); Schistocytes None Seen (NORMAL); Total Cells Counted 100
[2022-11-22 04:58] LABS: Stomatocytes 1+ (NORMAL)
[2022-11-22 05:39] LABS: Alveolar/Arterial O2 Gradient 135.2 mmHg; Base Excess ABG 3.8 mEq/l (+/-2.0); Carboxyhemoglobin 0.3 % THb (0-2.0); Device VENTILATOR; Fractional Inspired Oxygen 35 %; HCO3 ABG 28.4 mEq/l (22.0-26.0); Methemoglobin ABG 0.1 %THb (0-1.5); Modified Allen's Test Unable to perform; Oxygen Content ABG 15.2 %vol (16.0-22.0); Oxygen Saturation ABG 93.2 % (95.0-100.0); Oxyhemoglobin 91.7 % THb (90.0-100.0); PCO2 ABG 42.9 mmHg (35.0-45.0); PO2 ABG 64.5 mmHg (80.0-100.0); PO2 FiO2 Ratio Arterial Blood 1.84 %; Reduced Hemoglobin 7.9 %THb (0-5.0); Site Drawn RIGHT RADIAL; Total Hemoglobin 11.8 g/dL (12.0-18.0); pH ABG 7.439 (7.350-7.450)
[2022-11-22 05:40] LABS: Arterial Blood Gas PEEP 5 cmH2O; Arterial Blood Gas Tidal Volume 500 ml; Arterial Blood Gas Vent Mode CMV; Arterial Blood Gas Ventilator rate 22 /MIN
[2022-11-22] MEDS: DORNASE ALFA INH SOLN 1 MG/ML 2.5 ML AMP 2.5 MG INHALATION ×2 (08:09→20:14)
[2022-11-22] MEDS: BUDESONIDE RESPULE NEB 0.5 MG/2 ML AMP INHALATION ×2 (08:09→20:14)
[2022-11-22] MEDS: ASPIRIN 81 MG CHEWABLE TABLET PO (08:13)
[2022-11-22] MEDS: ROFLUMILAST 500 MCG TABLET PO (08:13)
[2022-11-22] MEDS: ENOXAPARIN 40 MG/0.4 ML SYRINGE SUB-Q (08:14)
[2022-11-22] MEDS: LATANOPROST 0.005% OP SOLN 2.5 ML BTL 1 DROP EACH EYE (08:15)
[2022-11-22] MEDS: MINERAL OIL/WHITE PETROLATUM OINTMENT 1 APPLIC EACH EYE ×2 (08:15→21:02)
[2022-11-22] MEDS: FENTANYL 2,500MCG/NS250ML(*CRX 2,500 MCG/250 ML BAG 15 MCG IV CONT (08:17)
[2022-11-22] MEDS: PANTOPRAZOLE SODIUM IV 40 MG VIAL IV PUSH (08:17)
--- NOTE | 2022-11-22 08:21 | WPDINTPN ---
Progress Note: A&P Assessment and Plan (1) Acute and chronic respiratory failure with hypoxia: Code(s): J96.21 - Acute and chronic respiratory failure with hypoxia Status: Acute Assessment and Plan: Likely related to COPD exacerbation, possible underlying pneumonia -patient presented with dyspnea, cough productive with yellow sputum -11/20/2022: Impending respiratory failure requiring intubation which was uneventful -currently on CMV mode of ventilation, peep of 5, 35% FiO2 - chest x-ray this morning: Stable right upper lobe collapse with endobronchial valves. Additional linear scarring or atelectasis right lung base - ABGs reviewed -continue bronchodilators -continue budesonide nebulizer - continue Pulmozyme for increased secretions - continue vancomycin(11/19) and cefepime (11/21) - ceftriaxone discontinued on 11/21 -continue Daliresp - currently on fentanyl and Versed infusion. Patient was initially on propofol and fentanyl but was not adequately sedated and was having significant bouts of coughing so switched patient to fentanyl and Versed infusion and he is more synchronous with the ventilator. Maintain RASS of 0 to -2, daily sedation vacation (2) Acute exacerbation of chronic obstructive pulmonary disease: Code(s): J44.1 - Chronic obstructive pulmonary disease with (acute) exacerbation Status: Acute Assessment and Plan: Continue mechanical ventilation, steroids, bronchodilators and antibiotics (3) Chest pain: Code(s): R07.9 - Chest pain, unspecified Status: Acute Assessment and Plan: 11/20/2022 chest CTA: No evidence of pulmonary embolism, aortic dissection or aortic aneurysm. Chronic complete right upper lobe collapse as seen on prior exam, minimal emphysema -patient does have a history of chronic pain syndrome, -received multiple doses of morphine -patient be started fentanyl infusion as he is intubated (4) Chronic deep vein thrombosis (DVT): Qualifiers: DVT location: lower extremity Affected thrombotic vein of extremity: unspecified vein of extremity Laterality: unspecified laterality Qualified Code(s): I82.509 - Chronic embolism and thrombosis of unspecified deep veins of unspecified lower extremity Code(s): I82.509 - Chronic embolism and thrombosis of unspecified deep veins of unspecified lower extremity Status: Acute Assessment and Plan: History of chronic DVTs -will obtain bilateral lower extremity venous Doppler -11/20/2022 CTA chest was negative for PE (5) Chronic pain syndrome: Code(s): G89.4 - Chronic pain syndrome Status: Acute Assessment and Plan: Patient does take Vicodin at home (6) Gastroesophageal reflux disease: Code(s): K21.9 - Gastro-esophageal reflux disease without esophagitis Status: Acute Assessment and Plan: continue Protonix Plan DVT prophylaxis: Lovenox SQ Stress ulcer prophylaxis: Protonix Nutrition: Tolerating tube feeds, at goal Code Status: Full code Critical Care Time Spent: 33 minutes Discussed with patient's spouse, updated her with patient's condition and plan of care. I answered all questions Due to a high probability of clinically significant, life threatening deterioration, the patient required my highest level of preparedness to intervene emergently and I personally spent this critical care time directly and personally managing the patient. This critical care time included obtaining a history; examining the patient; pulse oximetry; ordering and review of studies; arranging urgent treatment with development of a management plan; evaluation of patient's response to treatment; frequent reassessment; and discussions with other providers. It was exclusive of separately billable procedures and treating other patients and teaching time. Please see Assessment and Plan section and the rest of the note for further information on patient assessment and treatm
--- NOTE | 2022-11-22 11:27 | PCFNICU ---
ICU Rounding Note: Pt current nutrition is Vital HP at 50 ml/hr. Nutrition recommendation: increasing to goal rate of 70 ml/hr Last recorded weight is 105.2 kg. Bowel Motility: No BM reported. Labs Reviewed:Glu 119, BUN 33, Na 133, Hct 33.6,Hgb 10.9 Meds Noted:Versed, Fentanyl, Solu Medrol, Zithromax Skin: WNL Additional Notes: Patient remains on mechanical vent and tube feedings of Vital HP at 50 ml/hr with plans of increasing to goal rate of 70 ml/hr. Tube feeding will providing patient with 1540 kcals/134 gms protein/1287 ml water. Flush 30 ml q 4 hours. Agree with diet orders. Will monitor daily in ICU rounds and reassessing every Saturday and Saturday.
[2022-11-22 11:46] LABS: Triglycerides 122 mg/dL (<150)
[2022-11-22 11:47] LABS: Glucose Point of Care 142 mg/dl (65-105)
[2022-11-22 17:28] LABS: Glucose Point of Care 146 mg/dl (65-105)
[2022-11-22 20:41] LABS: Vancomycin Trough 10.1 ug/mL (10.0-20.0)
[2022-11-22] MEDS: FENTANYL 2,500MCG/NS250ML(*CRX 2,500 MCG/250 ML BAG 17.5 MCG IV CONT (23:13)
[2022-11-23] VITALS (49 sets, daily range): BP systolic 116–164; BP diastolic 68–117; PULSE 58–120; RESP 18–55; TEMP 36.6–37.4; O2SAT 91–99
[2022-11-23] MEDS: methylPREDNISolone SOD SUCC 40 MG VIAL 20 MG IV PUSH ×4 (01:02→17:31)
[2022-11-23 01:10] LABS: Glucose Point of Care 195 mg/dl (65-105)
[2022-11-23] MEDS: IPRATROPIUM BR 0.02% INH SOLN 0.5 MG/2.5 ML VIAL INHALATION ×4 (02:31→20:04)
[2022-11-23] MEDS: MIDAZOLAM 100MG/NS 100ML(*CRX) 100 MG/100 ML BAG 7 MG IV CONT (03:05)
[2022-11-23 04:19] LABS: Basophils Percent Auto 0.2 % (0.2-1.2); Hematocrit 32.6 % (42.0-52.0); Hemoglobin 10.8 g/dL (14.0-18.0); Immature Granulocyte Absolute 0.48 K/mm3 (0.00-0.031); Immature Granulocyte Percent A 2.4 % (0-0.5); Lymphocytes Absolute Auto 0.58 K/mm3 (0.9-3.2); Lymphocytes Percent Auto 2.9 % (18.3-44.2); Mean Corpuscular HGB Conc 33.1 g/dl (32-36); Mean Corpuscular Hemoglobin 30.7 pg (26-34); Mean Corpuscular Volume 92.6 fl (80-100); Mean Platelet Volume 10.5 fl (7.4-10.4); Monocytes Absolute Auto 1.8 K/mm3 (0.1-0.6); Monocytes Percent Auto 8.8 % (2.6-8.5); Neutrophils Absolute Auto 17.1 K/mm3 (1.3-6.7); Neutrophils Percent Auto 85.7 % (45.5-73.1); Platelet Count Result 336 k/mm3 (150-375); Red Blood Count 3.52 M/mm3 (4.6-6.20); Red Cell Distribution Width 15.5 % (11.5-14.5)
[2022-11-23 04:26] LABS: Alanine Aminotransferase 38 U/L (6-50); Albumin Level 3.6 g/dL (3.5-5.1); Alkaline Phosphatase 85 U/L (38-126); Anion Gap 5 mmol/L (8-16); Aspartate Amino Transferase 38 U/L (17-59); Bilirubin,Total 0.4 mg/dL (0.2-1.3); Blood Urea Nitrogen 28 mg/dL (9-20); Calcium 8.3 mg/dL (8.4-10.2); Carbon Dioxide 30 mmol/L (22-30); Chloride 102 mmol/L (98-107); Estimated CRCL calculation 100 ml/min; Estimated Glomerular Filt Rate > 60; Glucose 106 mg/dL (65-110); Magnesium 2.8 mg/dL (1.6-2.3); Phosphorus 2.6 mg/dL (2.5-4.5); Potassium 4.2 mmol/L (3.4-5.0); Sodium 137 mmol/L (137-145)
[2022-11-23 05:30] LABS: Carboxyhemoglobin 0.3 % THb (0-2.0); Fractional Inspired Oxygen 30 %; HCO3 ABG 27.3 mEq/l (22.0-26.0); Methemoglobin ABG 0.1 %THb (0-1.5); Oxygen Content ABG 14.5 %vol (16.0-22.0); Oxygen Saturation ABG 94.3 % (95.0-100.0); Oxyhemoglobin 92.8 % THb (90.0-100.0); PCO2 ABG 36.1 mmHg (35.0-45.0); PO2 ABG 64.5 mmHg (80.0-100.0); PO2 FiO2 Ratio Arterial Blood 2.15 %; Reduced Hemoglobin 6.8 %THb (0-5.0); Total Hemoglobin 11.1 g/dL (12.0-18.0); pH ABG 7.496 (7.350-7.450)
[2022-11-23 05:31] LABS: Device VENTILATOR; Site Drawn LEFT RADIAL
[2022-11-23 05:32] LABS: Arterial Blood Gas PEEP 5 cmH2O; Arterial Blood Gas Tidal Volume 500 ml; Arterial Blood Gas Vent Mode CMV; Arterial Blood Gas Ventilator rate 22 /MIN
--- NOTE | 2022-11-23 07:38 | WPDINTPN ---
Progress Note: A&P Assessment and Plan (1) Acute and chronic respiratory failure with hypoxia: Code(s): J96.21 - Acute and chronic respiratory failure with hypoxia Status: Acute Assessment and Plan: Likely related to COPD exacerbation, possible underlying pneumonia -patient presented with dyspnea, cough productive with yellow sputum -11/20/2022: Impending respiratory failure requiring intubation which was uneventful -currently on CMV mode of ventilation, peep of 5, 35% FiO2 - chest x-ray this morning: Stable right upper lobe collapse with endobronchial valves. Additional linear scarring or atelectasis right lung base - ABGs reviewed -continue bronchodilators -continue budesonide nebulizer - continue Pulmozyme for increased secretions - continue vancomycin(11/19) and cefepime (11/21) - ceftriaxone discontinued on 11/21 -continue Daliresp - currently on fentanyl and Versed infusion. Patient was initially on propofol and fentanyl but was not adequately sedated and was having significant bouts of coughing so switched patient to fentanyl and Versed infusion and he is more synchronous with the ventilator. Maintain RASS of 0 to -2, daily sedation vacation - will wean sedation, and try spontaneous breathing trial (2) Pneumonia: Code(s): J18.9 - Pneumonia, unspecified organism Status: Acute Assessment and Plan: WBC count trending down, continue antibiotics as above, continue mechanical ventilation - will wean sedation and place patient on breathing trial (3) Acute exacerbation of chronic obstructive pulmonary disease: Code(s): J44.1 - Chronic obstructive pulmonary disease with (acute) exacerbation Status: Acute Assessment and Plan: Continue mechanical ventilation, steroids, bronchodilators and antibiotics (4) Chest pain: Code(s): R07.9 - Chest pain, unspecified Status: Acute Assessment and Plan: 11/20/2022 chest CTA: No evidence of pulmonary embolism, aortic dissection or aortic aneurysm. Chronic complete right upper lobe collapse as seen on prior exam, minimal emphysema -patient does have a history of chronic pain syndrome, -received multiple doses of morphine -patient be started fentanyl infusion as he is intubated (5) Chronic deep vein thrombosis (DVT): Qualifiers: DVT location: lower extremity Affected thrombotic vein of extremity: unspecified vein of extremity Laterality: unspecified laterality Qualified Code(s): I82.509 - Chronic embolism and thrombosis of unspecified deep veins of unspecified lower extremity Code(s): I82.509 - Chronic embolism and thrombosis of unspecified deep veins of unspecified lower extremity Status: Acute Assessment and Plan: History of chronic DVTs -will obtain bilateral lower extremity venous Doppler -11/20/2022 CTA chest was negative for PE (6) Chronic pain syndrome: Code(s): G89.4 - Chronic pain syndrome Status: Acute Assessment and Plan: Patient does take Vicodin at home (7) Gastroesophageal reflux disease: Code(s): K21.9 - Gastro-esophageal reflux disease without esophagitis Status: Acute Assessment and Plan: continue Protonix Plan DVT prophylaxis: Lovenox SQ Stress ulcer prophylaxis: Protonix Nutrition: Tolerating tube feeds, at goal Code Status: Full code Critical Care Time Spent: 33 minutes Discussed with patient's spouse, updated her with patient's condition and plan of care. I answered all questions Due to a high probability of clinically significant, life threatening deterioration, the patient required my highest level of preparedness to intervene emergently and I personally spent this critical care time directly and personally managing the patient. This critical care time included obtaining a history; examining the patient; pulse oximetry; ordering and review of studies; arranging urgent treatment with development of a management pl
[2022-11-23] MEDS: BUDESONIDE RESPULE NEB 0.5 MG/2 ML AMP INHALATION ×2 (08:13→20:04)
[2022-11-23] MEDS: DORNASE ALFA INH SOLN 1 MG/ML 2.5 ML AMP 2.5 MG INHALATION ×2 (08:13→20:03)
[2022-11-23] MEDS: LATANOPROST 0.005% OP SOLN 2.5 ML BTL 1 DROP EACH EYE (08:17)
[2022-11-23] MEDS: ENOXAPARIN 40 MG/0.4 ML SYRINGE SUB-Q (08:17)
[2022-11-23] MEDS: ASPIRIN 81 MG CHEWABLE TABLET PO (08:17)
[2022-11-23] MEDS: polyethylene glycoL 3350 17 GM POWD.PACK PO (08:17)
[2022-11-23] MEDS: MINERAL OIL/WHITE PETROLATUM OINTMENT 1 APPLIC EACH EYE ×2 (08:18→22:38)
[2022-11-23] MEDS: PANTOPRAZOLE SODIUM IV 40 MG VIAL IV PUSH (08:18)
[2022-11-23] MEDS: ROFLUMILAST 500 MCG TABLET PO (08:18)
--- NOTE | 2022-11-23 12:12 | PCNFU ---
Nutrition Follow-Up Complete: Inadequate Oral Intake as related to mechanical ventilation as evidenced by NPO goal: Meet estimated nutritional needs Patient is progressing towards goal. We will continue current goal. Pt current nutrition is Vital HP at 70 ml/hr. Last recorded weight is 106.5 kg. Bowel Motility:No Bm reported, Miralax given Labs Reviewed:Mg 2.8, BUN 28, Hct 32.6,Hgb 10.8 Meds Noted:Reglan,Miralax,Fentanyl, Versed, Senokot Skin: WNL Additional Notes: Patient remains NPO at this time. Plans for breathing trial today. Tube feedings stopped due to elevated residuals. If patient does not tolerate breathing trial today, recommend restarting tube feedings of Vital HP, goal rate is 70 ml/hr which is providing 1540 kcals/134 gms protein/1287 ml water. Flush 30 ml q 4 hours. Agree with diet orders. Will monitor daily in ICU rounds and reassessing every Saturday and Saturday.
[2022-11-23] MEDS: dexmedeTOMIDine 400 MCG/100 ML 400 MCG/100 ML BAG 10.65 MCG IV CONT (12:49)
[2022-11-23] MEDS: METOCLOPRAMIDE HCL INJ 10 MG/2 ML VIAL IV PUSH ×2 (13:11→17:31)
[2022-11-23 13:18] LABS: Glucose Point of Care 102 mg/dl (65-105)
[2022-11-23] MEDS: MIDAZOLAM HCL (*CRX) 2 MG/2 ML VIAL IV PUSH ×2 (15:01→17:10)
[2022-11-23] MEDS: dexmedeTOMIDine 400 MCG/100 ML 400 MCG/100 ML BAG 21.3 MCG IV CONT (17:14)
[2022-11-23 17:42] LABS: Glucose Point of Care 141 mg/dl (65-105)
[2022-11-23] MEDS: dexmedeTOMIDine 400 MCG/100 ML 400 MCG/100 ML BAG 31.95 MCG IV CONT ×2 (19:37→22:34)
[2022-11-23] MEDS: SENNA/DOCUSATE SODIUM TABLET 1 TAB PO (22:38)
[2022-11-24] VITALS (36 sets, daily range): BP systolic 121–158; BP diastolic 81–99; PULSE 50–128; RESP 15–30; TEMP 36–37.9; O2SAT 9–100
[2022-11-24] MEDS: methylPREDNISolone SOD SUCC 40 MG VIAL 20 MG IV PUSH ×2 (00:10→06:22)
[2022-11-24] MEDS: METOCLOPRAMIDE HCL INJ 10 MG/2 ML VIAL IV PUSH ×5 (00:10→23:59)
[2022-11-24] MEDS: MIDAZOLAM HCL (*CRX) 2 MG/2 ML VIAL IV PUSH ×3 (00:12→04:38)
[2022-11-24 00:29] LABS: Glucose Point of Care 176 mg/dl (65-105)
[2022-11-24] MEDS: dexmedeTOMIDine 400 MCG/100 ML 400 MCG/100 ML BAG 34.61 MCG IV CONT (01:37)
[2022-11-24] MEDS: IPRATROPIUM BR 0.02% INH SOLN 0.5 MG/2.5 ML VIAL INHALATION ×4 (03:10→19:45)
--- NOTE | 2022-11-24 03:43 | ECG_ITS ---
Measurements Intervals [place] Rate: 64 P: 64 SC: 121 QRS: 42 QRSD: 79 T: 64 QT: 431 QTc: 447 Interpretive Statements SINUS RHYTHM WITHIN NORMAL LIMITS COMPARED TO ECG 11/20/2022 08:10:55 SINUS TACHYCARDIA HAS RESOLVED Electronically Signed On 11-26-2022 12:01:13 MASSAGE OPERATOR by Bentley Bethea M.D.
[2022-11-24 03:59] LABS: Basophils Absolute Auto 0.1 K/mm3 (0.0-0.1); Basophils Percent Auto 0.6 % (0.2-1.2); Hemoglobin 11.5 g/dL (14.0-18.0); Immature Granulocyte Absolute 0.75 K/mm3 (0.00-0.031); Immature Granulocyte Percent A 3.9 % (0-0.5); Lymphocytes Absolute Auto 0.76 K/mm3 (0.9-3.2); Mean Corpuscular HGB Conc 31.9 g/dl (32-36); Mean Corpuscular Hemoglobin 29.8 pg (26-34); Mean Corpuscular Volume 93.3 fl (80-100); Mean Platelet Volume 10.8 fl (7.4-10.4); Monocytes Absolute Auto 1.2 K/mm3 (0.1-0.6); Monocytes Percent Auto 6.4 % (2.6-8.5); Neutrophils Absolute Auto 16.3 K/mm3 (1.3-6.7); Neutrophils Percent Auto 85.1 % (45.5-73.1); Platelet Count Result 354 k/mm3 (150-375); Red Blood Count 3.86 M/mm3 (4.6-6.20); Red Cell Distribution Width 15.4 % (11.5-14.5); White Blood Count 19.1 K/mm3 (4.5-10.0)
[2022-11-24 04:20] LABS: Alanine Aminotransferase 52 U/L (6-50); Albumin Level 3.9 g/dL (3.5-5.1); Alkaline Phosphatase 86 U/L (38-126); Anion Gap 8 mmol/L (8-16); Aspartate Amino Transferase 29 U/L (17-59); Bilirubin,Total 0.5 mg/dL (0.2-1.3); Blood Urea Nitrogen 28 mg/dL (9-20); Calcium 8.8 mg/dL (8.4-10.2); Carbon Dioxide 25 mmol/L (22-30); Chloride 102 mmol/L (98-107); Estimated CRCL calculation 113 ml/min; Estimated Glomerular Filt Rate > 60; Glucose 207 mg/dL (65-110); Phosphorus 3.5 mg/dL (2.5-4.5); Potassium 4.7 mmol/L (3.4-5.0); Sodium 135 mmol/L (137-145)
[2022-11-24] MEDS: MIDAZOLAM 100MG/NS 100ML(*CRX) 100 MG/100 ML BAG IV CONT (04:38)
[2022-11-24 06:24] LABS: Alveolar/Arterial O2 Gradient 86.1 mmHg; Base Excess ABG 0.2 mEq/l (+/-2.0); Carboxyhemoglobin 0.3 % THb (0-2.0); Fractional Inspired Oxygen 30 %; Methemoglobin ABG 0.2 %THb (0-1.5); Oxygen Content ABG 17.1 %vol (16.0-22.0); Oxygen Saturation ABG 95.8 % (95.0-100.0); Oxyhemoglobin 94.5 % THb (90.0-100.0); PCO2 ABG 41.1 mmHg (35.0-45.0); PO2 ABG 79.5 mmHg (80.0-100.0); PO2 FiO2 Ratio Arterial Blood 2.65 %; Total Hemoglobin 12.8 g/dL (12.0-18.0); pH ABG 7.402 (7.350-7.450)
[2022-11-24 06:25] LABS: Device VENTILATOR; Modified Allen's Test Pass; Site Drawn RIGHT RADIAL
[2022-11-24 06:27] LABS: Arterial Blood Gas PEEP 5 cmH2O; Arterial Blood Gas Tidal Volume 500 ml; Arterial Blood Gas Vent Mode CMV; Arterial Blood Gas Ventilator rate 18 /MIN
[2022-11-24 06:42] LABS: Glucose Point of Care 150 mg/dl (65-105)
[2022-11-24] MEDS: DORNASE ALFA INH SOLN 1 MG/ML 2.5 ML AMP 2.5 MG INHALATION ×2 (08:10→19:47)
[2022-11-24] MEDS: BUDESONIDE RESPULE NEB 0.5 MG/2 ML AMP INHALATION ×2 (08:15→19:44)
[2022-11-24] MEDS: PANTOPRAZOLE SODIUM IV 40 MG VIAL IV PUSH (09:30)
[2022-11-24] MEDS: ROFLUMILAST 500 MCG TABLET PO (09:30)
[2022-11-24] MEDS: ASPIRIN 81 MG CHEWABLE TABLET PO (09:30)
[2022-11-24] MEDS: polyethylene glycoL 3350 17 GM POWD.PACK PO (09:30)
[2022-11-24] MEDS: ENOXAPARIN 40 MG/0.4 ML SYRINGE SUB-Q (09:30)
[2022-11-24] MEDS: LATANOPROST 0.005% OP SOLN 2.5 ML BTL 1 DROP EACH EYE (09:31)
[2022-11-24] MEDS: fentaNYL CITRATE INJ (*CRX) 100 MCG/2 ML VIAL 50 MCG IV PUSH (10:08)
[2022-11-24] MEDS: FENTANYL 2,500MCG/NS250ML(*CRX 2,500 MCG/250 ML BAG IV CONT (10:09)
--- NOTE | 2022-11-24 10:19 | WPDINTPN ---
Progress Note: A&P Assessment and Plan (1) Acute and chronic respiratory failure with hypoxia: Code(s): J96.21 - Acute and chronic respiratory failure with hypoxia Status: Acute Assessment and Plan: Likely related to COPD exacerbation, possible underlying pneumonia -patient presented with dyspnea, cough productive with yellow sputum 11/20 chest CTA No evidence of pulmonary embolus, aortic dissection, or aortic aneurysm. Chronic complete right upper lobe collapse, as seen on prior exam. Minimal emphysema. -chest x-ray reviewed -ABG reviewed -I did a 5/5 PSV weaning trial morning and patient was fairly tachycardic and tachypneic. Heart rate was in 130s and respiratory rate 30s. Patient was placed back on CMV -patient was also complaining of pain in the back which is chronic. Patient will be started on fentanyl infusion -he was on Precedex overnight which had to be stopped because of sinus pause and now on Versed -trying to optimize patient sedation and analgesia - chest x-ray this morning: Stable right upper lobe collapse with endobronchial valves. Additional linear scarring or atelectasis right lung base - ABGs reviewed -continue bronchodilators, systemic steroids, continue budesonide nebulizer - continue Pulmozyme for increased secretions - continue vancomycin(11/19) and cefepime (11/21) azithromycin - ceftriaxone discontinued on 11/21 -continue Daliresp (2) Pneumonia: Code(s): J18.9 - Pneumonia, unspecified organism Status: Acute Assessment and Plan: WBC count trending down, continue antibiotics as above, continue mechanical ventilation (3) Acute exacerbation of chronic obstructive pulmonary disease: Code(s): J44.1 - Chronic obstructive pulmonary disease with (acute) exacerbation Status: Acute Assessment and Plan: Continue mechanical ventilation, steroids, bronchodilators and antibiotics (4) Chest pain: Code(s): R07.9 - Chest pain, unspecified Status: Acute Assessment and Plan: 11/20/2022 chest CTA: No evidence of pulmonary embolism, aortic dissection or aortic aneurysm. Chronic complete right upper lobe collapse as seen on prior exam, minimal emphysema -troponin -patient does have a history of chronic pain syndrome, -received multiple doses of morphine -patient be started fentanyl infusion as he is intubated (5) Chronic deep vein thrombosis (DVT): Qualifiers: Affected thrombotic vein of extremity: unspecified vein of extremity DVT location: lower extremity Laterality: unspecified laterality Qualified Code(s): I82.509 - Chronic embolism and thrombosis of unspecified deep veins of unspecified lower extremity Code(s): I82.509 - Chronic embolism and thrombosis of unspecified deep veins of unspecified lower extremity Status: Acute Assessment and Plan: History of chronic DVTs - 11/22 Bilateral lower extremity venous Doppler were negative for DVT -11/20/2022 CTA chest was negative for PE (6) Chronic pain syndrome: Code(s): G89.4 - Chronic pain syndrome Status: Acute Assessment and Plan: Patient does take Vicodin at home Fentanyl infusion (7) Gastroesophageal reflux disease: Code(s): K21.9 - Gastro-esophageal reflux disease without esophagitis Status: Acute Assessment and Plan: continue Protonix (8) Sinus pause: Code(s): I45.5 - Other specified heart block Status: Acute Assessment and Plan: Patient had a sinus phos early this morning. Now off of Precedex Electrolytes reviewed and were in normal range Will monitor. If recurrent, will pursue further workup and consult Cardiology Recent echocardiogram reviewed Plan DVT prophylaxis: Lovenox SQ Stress ulcer prophylaxis: Protonix Nutrition: Tolerating tube feeds, at goal Code Status: Full code Critical Care Time Spent: 35 minutes Discussed with patient's spouse, updated her with patient's condition and jose guadalupe
--- NOTE | 2022-11-24 11:51 | PM.IMPN ---
Progress Note: A&P Assessment and Plan (1) Acute and chronic respiratory failure with hypoxia: Code(s): J96.21 - Acute and chronic respiratory failure with hypoxia Status: Acute Assessment and Plan: Likely related to COPD exacerbation, possible underlying pneumonia -patient presented with dyspnea, cough productive with yellow sputum -chest x-ray reviewed -continue bronchodilators, systemic steroids, continue budesonide nebulizer - continue Pulmozyme for increased secretions - continue vancomycin(11/19) and cefepime (11/21) azithromycin -continue Daliresp (2) Pneumonia: Code(s): J18.9 - Pneumonia, unspecified organism Status: Acute Assessment and Plan: WBC count trending down, continue antibiotics as above, continue mechanical ventilation (3) Acute exacerbation of chronic obstructive pulmonary disease: Code(s): J44.1 - Chronic obstructive pulmonary disease with (acute) exacerbation Status: Acute Assessment and Plan: Continue mechanical ventilation, steroids, bronchodilators and antibiotics (4) Chest pain: Code(s): R07.9 - Chest pain, unspecified Status: Acute Assessment and Plan: 11/20/2022 chest CTA: No evidence of pulmonary embolism, aortic dissection or aortic aneurysm. Chronic complete right upper lobe collapse as seen on prior exam, minimal emphysema -troponin -patient does have a history of chronic pain syndrome, -received multiple doses of morphine -patient be started fentanyl infusion as he is intubated (5) Chronic deep vein thrombosis (DVT): Qualifiers: DVT location: lower extremity Affected thrombotic vein of extremity: unspecified vein of extremity Laterality: unspecified laterality Qualified Code(s): I82.509 - Chronic embolism and thrombosis of unspecified deep veins of unspecified lower extremity Code(s): I82.509 - Chronic embolism and thrombosis of unspecified deep veins of unspecified lower extremity Status: Acute Assessment and Plan: History of chronic DVTs - 11/22 Bilateral lower extremity venous Doppler were negative for DVT -11/20/2022 CTA chest was negative for PE (6) Chronic pain syndrome: Code(s): G89.4 - Chronic pain syndrome Status: Acute Assessment and Plan: Patient does take Vicodin at home Fentanyl infusion (7) Gastroesophageal reflux disease: Code(s): K21.9 - Gastro-esophageal reflux disease without esophagitis Status: Acute Assessment and Plan: continue Protonix (8) Sinus pause: Code(s): I45.5 - Other specified heart block Status: Acute Assessment and Plan: Patient had a sinus phos early this morning. Now off of Precedex Electrolytes reviewed and were in normal range Will monitor. If recurrent, will pursue further workup and consult Cardiology Recent echocardiogram reviewed Subjective Date/time seen: 11/24/22 11:51 Remains in the ICU Exam Narrative: General: Patient is intubated and sedated, in no distress HEENT:? Pupils equal and reactive, sclera is clear, ETT in place Neck: Supple Respiratory:? Decreased air entry bases and right upper lobe. Coarse breath sounds, no wheezing this morning, otherwise adequate air entry Cardiac:? S1-S2 is normal, normal sinus rhythm tachycardic Abdomen:? Soft, nondistended, nontender, normoactive bowel sounds, protuberant abdomen Extremities:? No edema, palpable pedal pulses Neuro:? Is intubated and sedated, opens eyes, nods to questions, follows simple commands in all extremities Skin:? Warm and dry, no lesions noted Psych:? Unable to assess at this time Objective Data Vital Signs Vital Signs: Vital Signs - 24 hr 11/23/22 12:00 11/23/22 12:00 11/23/22 12:00 Temperature 98.5 F Pulse Rate 107 H 107 H Respiratory Rate 26 H 26 H Blood Pressure 164/117 H Pulse Oximetry 92 92 Oxygen Delivery Mechanical Ventilation Fraction of Inspired Oxygen 30 30
[2022-11-24 12:52] LABS: Glucose Point of Care 137 mg/dl (65-105)
[2022-11-24 18:07] LABS: Glucose Point of Care 115 mg/dl (65-105)
--- NOTE | 2022-11-24 19:33 | PC.NURSE ---
At 1600 assessment, og tube noted to be 25 cm. OG replaced to 60 cm, abdominal xray ordered to confirm placement. OG placement verified. Tube feeding resumed. Patient tolerated well. Will continue to monitor closely.
[2022-11-24 20:20] LABS: Vancomycin Trough 22.3 ug/mL (10.0-20.0)
[2022-11-24] MEDS: SENNA/DOCUSATE SODIUM TABLET 1 TAB PO (20:24)
[2022-11-25] VITALS (41 sets, daily range): BP systolic 93–141; BP diastolic 75–97; PULSE 70–143; RESP 18–34; TEMP 36.4–39.1; O2SAT 91–97
[2022-11-25 00:03] LABS: Glucose Point of Care 123 mg/dl (65-105)
[2022-11-25] MEDS: MIDAZOLAM 100MG/NS 100ML(*CRX) 100 MG/100 ML BAG 6 MG IV CONT ×2 (00:43→17:18)
[2022-11-25] MEDS: IPRATROPIUM BR 0.02% INH SOLN 0.5 MG/2.5 ML VIAL INHALATION ×4 (01:50→19:42)
[2022-11-25] MEDS: ACETAMINOPHEN 650 MG SUPPOSITORY RECTAL ×2 (02:55→05:00)
[2022-11-25 03:52] LABS: Eosinophils Absolute Auto 0.1 K/mm3 (0-0.3); Eosinophils Percent Auto 0.6 % (0-4.4); Hematocrit 39.7 % (42.0-52.0); Hemoglobin 12.6 g/dL (14.0-18.0); Immature Granulocyte Absolute 1.54 K/mm3 (0.00-0.031); Immature Granulocyte Percent A 6.9 % (0-0.5); Lymphocytes Absolute Auto 1.99 K/mm3 (0.9-3.2); Lymphocytes Percent Auto 8.9 % (18.3-44.2); Mean Corpuscular HGB Conc 31.7 g/dl (32-36); Mean Corpuscular Hemoglobin 30.1 pg (26-34); Mean Corpuscular Volume 94.7 fl (80-100); Mean Platelet Volume 10.6 fl (7.4-10.4); Monocytes Absolute Auto 2.3 K/mm3 (0.1-0.6); Monocytes Percent Auto 10.3 % (2.6-8.5); Neutrophils Absolute Auto 16.3 K/mm3 (1.3-6.7); Neutrophils Percent Auto 73.3 % (45.5-73.1); Nucleated Red Blood Cells Perc 0.1 % (0.0-0.2); Platelet Count Result 380 k/mm3 (150-375); Red Blood Count 4.19 M/mm3 (4.6-6.20); Red Cell Distribution Width 15.7 % (11.5-14.5); White Blood Count 22.3 K/mm3 (4.5-10.0)
[2022-11-25 04:06] LABS: Alanine Aminotransferase 59 U/L (6-50); Albumin Level 3.8 g/dL (3.5-5.1); Alkaline Phosphatase 91 U/L (38-126); Anion Gap 6 mmol/L (8-16); Aspartate Amino Transferase 34 U/L (17-59); Bilirubin,Total 0.7 mg/dL (0.2-1.3); Blood Urea Nitrogen 34 mg/dL (9-20); Calcium 8.7 mg/dL (8.4-10.2); Carbon Dioxide 26 mmol/L (22-30); Chloride 100 mmol/L (98-107); Estimated CRCL calculation 111 ml/min; Estimated Glomerular Filt Rate > 60; Glucose 113 mg/dL (65-110); Magnesium 2.4 mg/dL (1.6-2.3); Phosphorus 3.4 mg/dL (2.5-4.5); Sodium 132 mmol/L (137-145)
--- NOTE | 2022-11-25 04:31 | ECG_ITS ---
Measurements Intervals [place] Rate: 131 P: 3 OK: 100 QRS: 33 QRSD: 80 T: 75 QT: 274 QTc: 405 Interpretive Statements SINUS TACHYCARDIA WITH SHORT OK INTERVAL ABNORMAL RHYTHM ECG COMPARED TO ECG 11/20/2022 08:10:55 NO SIGNIFICANT CHANGES Electronically Signed On 11-25-2022 8:30:25 [employer] by Jennifer Ingram M.D.
[2022-11-25] MEDS: METOPROLOL TARTRATE INJ 5 MG/5 ML VIAL 2.5 MG IV PUSH (04:56)
[2022-11-25 05:40] LABS: Appearance Urine Clear (Clear); Bilirubin Urine Negative (Negative); Blood Urine 2+ (Negative); Color Urine Yellow (Yellow); Glucose Urine UA Negative (Negative); Ketones Urine Negative (Negative); Leukocyte Esterase Ur Negative LEU/UL (Negative); Nitrate Urine Negative (Negative); Protein Urine 2+ mg/dL (Negative); Specific Grav Ur 1.025 (1.001-1.035); Urobilinogen Urine 0.2 mg/dL (<2.0)
[2022-11-25 05:46] LABS: Mucus Urine Rare /lpf; RBC Urine 51-75 /hpf (0-2); Squamous Epithelial Cell Urine Rare /hpf (Few); WBC Urine 0-3 /hpf
[2022-11-25 05:49] LABS: Glucose Point of Care 172 mg/dl (65-105)
[2022-11-25] MEDS: METOCLOPRAMIDE HCL INJ 10 MG/2 ML VIAL IV PUSH (05:49)
[2022-11-25 05:58] LABS: Carboxyhemoglobin 0.4 % THb (0-2.0); Fractional Inspired Oxygen 30 %; HCO3 ABG 28.3 mEq/l (22.0-26.0); Methemoglobin ABG 0.3 %THb (0-1.5); Oxygen Content ABG 17.7 %vol (16.0-22.0); Oxygen Saturation ABG 95.5 % (95.0-100.0); PCO2 ABG 41.4 mmHg (35.0-45.0); PO2 ABG 74.3 mmHg (80.0-100.0); PO2 FiO2 Ratio Arterial Blood 2.48 %; Reduced Hemoglobin 5.3 %THb (0-5.0); Total Hemoglobin 13.4 g/dL (12.0-18.0); pH ABG 7.453 (7.350-7.450)
[2022-11-25 05:59] LABS: Add Urine Microscopic? YES
[2022-11-25 05:59] LABS: Arterial Blood Gas Vent Mode CMV; Arterial Blood Gas Ventilator rate 18 /MIN; Device VENTILATOR; Modified Allen's Test Pass; Site Drawn RIGHT RADIAL
[2022-11-25 06:00] LABS: Arterial Blood Gas PEEP 5 cmH2O; Arterial Blood Gas Tidal Volume 300 ml
[2022-11-25] MEDS: BUDESONIDE RESPULE NEB 0.5 MG/2 ML AMP INHALATION ×2 (07:51→19:43)
[2022-11-25] MEDS: MIDAZOLAM HCL (*CRX) 2 MG/2 ML VIAL IV PUSH (08:19)
[2022-11-25] MEDS: ROFLUMILAST 500 MCG TABLET PO (08:45)
[2022-11-25] MEDS: ASPIRIN 81 MG CHEWABLE TABLET PO (08:45)
[2022-11-25] MEDS: ACETAMINOPHEN 325 MG TABLET 650 MG FEED TUBE (08:47)
[2022-11-25] MEDS: LATANOPROST 0.005% OP SOLN 2.5 ML BTL 1 DROP EACH EYE (08:47)
[2022-11-25] MEDS: ENOXAPARIN 40 MG/0.4 ML SYRINGE SUB-Q (08:47)
[2022-11-25] MEDS: PANTOPRAZOLE SODIUM IV 40 MG VIAL IV PUSH (08:47)
[2022-11-25] MEDS: methylPREDNISolone SOD SUCC 125 MG VIAL 60 MG IV PUSH (08:48)
[2022-11-25] MEDS: polyethylene glycoL 3350 17 GM POWD.PACK PO (08:50)
[2022-11-25] MEDS: PROPOFOL IV EMULSION 100 ML 3.07 MG IV CONT (09:06)
[2022-11-25] MEDS: DORNASE ALFA INH SOLN 1 MG/ML 2.5 ML AMP 2.5 MG INHALATION ×2 (09:23→19:42)
[2022-11-25] MEDS: FENTANYL 2,500MCG/NS250ML(*CRX 2,500 MCG/250 ML BAG 15 MCG IV CONT (10:04)
--- NOTE | 2022-11-25 10:51 | WPDINTPN ---
Progress Note: A&P Assessment and Plan (1) Acute and chronic respiratory failure with hypoxia: Code(s): J96.21 - Acute and chronic respiratory failure with hypoxia Status: Acute Assessment and Plan: Likely related to COPD exacerbation, possible underlying pneumonia -patient presented with dyspnea, cough productive with yellow sputum 11/20 chest CTA No evidence of pulmonary embolus, aortic dissection, or aortic aneurysm. Chronic complete right upper lobe collapse, as seen on prior exam. Minimal emphysema. -ABG reviewed-decrease tidal volume to 450 -patient has been agitated, tachycardic tachypneic. I did try 5/5 PSV weaning trial this morning and patient respiratory rate went up into 40s. Patient was placed back on CMV -currently on Versed and fentanyl. I will add low-dose propofol -he was on Precedex overnight which had to be stopped because of sinus pause -trying to optimize patient sedation and analgesia - chest x-ray this morning: Stable right upper lobe collapse with endobronchial valves. Additional linear scarring or atelectasis right lung base -continue bronchodilators, systemic steroids, continue budesonide nebulizer - continue Pulmozyme for increased secretions - continue vancomycin(11/19) and cefepime (11/21) azithromycin - ceftriaxone discontinued on 11/21 - continue Daliresp (2) Fever: Code(s): R50.9 - Fever, unspecified Status: Acute Assessment and Plan: Patient febrile overnight and tachycardic this morning 1 L NS bolus IV acetaminophen Repeat cultures, UA, change Elias catheter Check procalcitonin level Check lactic acid level Check lipase Repeat CT chest (3) Pneumonia: Code(s): J18.9 - Pneumonia, unspecified organism Status: Acute Assessment and Plan: See above (4) Acute exacerbation of chronic obstructive pulmonary disease: Code(s): J44.1 - Chronic obstructive pulmonary disease with (acute) exacerbation Status: Acute Assessment and Plan: Continue mechanical ventilation, steroids, bronchodilators and antibiotics (5) Chest pain: Code(s): R07.9 - Chest pain, unspecified Status: Acute Assessment and Plan: 11/20/2022 chest CTA: No evidence of pulmonary embolism, aortic dissection or aortic aneurysm. Chronic complete right upper lobe collapse as seen on prior exam, minimal emphysema -troponin -patient does have a history of chronic pain syndrome, -received multiple doses of morphine -patient be started fentanyl infusion as he is intubated (6) Chronic deep vein thrombosis (DVT): Qualifiers: Affected thrombotic vein of extremity: unspecified vein of extremity DVT location: lower extremity Laterality: unspecified laterality Qualified Code(s): I82.509 - Chronic embolism and thrombosis of unspecified deep veins of unspecified lower extremity Code(s): I82.509 - Chronic embolism and thrombosis of unspecified deep veins of unspecified lower extremity Status: Acute Assessment and Plan: History of chronic DVTs - 11/22 Bilateral lower extremity venous Doppler were negative for DVT -11/20/2022 CTA chest was negative for PE (7) Chronic pain syndrome: Code(s): G89.4 - Chronic pain syndrome Status: Acute Assessment and Plan: Patient does take Vicodin at home Fentanyl infusion (8) Gastroesophageal reflux disease: Code(s): K21.9 - Gastro-esophageal reflux disease without esophagitis Status: Acute Assessment and Plan: continue Protonix (9) Sinus pause: Code(s): I45.5 - Other specified heart block Status: Acute Assessment and Plan: 11/24 Patient had a sinus pause early this morning. Now off of Precedex Electrolytes reviewed and were in normal range Will monitor. If recurrent, will pursue further workup and consult Cardiology Recent echocardiogram reviewed Plan DVT prophylaxis: Lovenox SQ Stress ulcer prophylaxis: Protonix Nutrition: T
[2022-11-25] MEDS: SODIUM CHLORIDE 0.9% IV 1,000 ML 999 ML IV CONT (10:53)
--- NOTE | 2022-11-25 11:45 | PM.IMPN ---
Progress Note: A&P Assessment and Plan (1) Acute and chronic respiratory failure with hypoxia: Code(s): J96.21 - Acute and chronic respiratory failure with hypoxia Status: Acute Assessment and Plan: Likely related to COPD exacerbation, possible underlying pneumonia -patient presented with dyspnea, cough productive with yellow sputum -chest x-ray reviewed -continue bronchodilators, systemic steroids, continue budesonide nebulizer - continue Pulmozyme for increased secretions - continue vancomycin(11/19) and cefepime (11/21) -continue Daliresp (2) Pneumonia: Code(s): J18.9 - Pneumonia, unspecified organism Status: Acute Assessment and Plan: WBC count trending down, continue antibiotics as above, continue mechanical ventilation (3) Acute exacerbation of chronic obstructive pulmonary disease: Code(s): J44.1 - Chronic obstructive pulmonary disease with (acute) exacerbation Status: Acute Assessment and Plan: Continue mechanical ventilation, steroids, bronchodilators and antibiotics (4) Chest pain: Code(s): R07.9 - Chest pain, unspecified Status: Acute Assessment and Plan: 11/20/2022 chest CTA: No evidence of pulmonary embolism, aortic dissection or aortic aneurysm. Chronic complete right upper lobe collapse as seen on prior exam, minimal emphysema -troponin -patient does have a history of chronic pain syndrome, -received multiple doses of morphine -patient be started fentanyl infusion as he is intubated (5) Chronic deep vein thrombosis (DVT): Qualifiers: DVT location: lower extremity Affected thrombotic vein of extremity: unspecified vein of extremity Laterality: unspecified laterality Qualified Code(s): I82.509 - Chronic embolism and thrombosis of unspecified deep veins of unspecified lower extremity Code(s): I82.509 - Chronic embolism and thrombosis of unspecified deep veins of unspecified lower extremity Status: Acute Assessment and Plan: History of chronic DVTs - 11/22 Bilateral lower extremity venous Doppler were negative for DVT -11/20/2022 CTA chest was negative for PE (6) Chronic pain syndrome: Code(s): G89.4 - Chronic pain syndrome Status: Acute Assessment and Plan: Patient does take Vicodin at home Fentanyl infusion (7) Gastroesophageal reflux disease: Code(s): K21.9 - Gastro-esophageal reflux disease without esophagitis Status: Acute Assessment and Plan: continue Protonix (8) Sinus pause: Code(s): I45.5 - Other specified heart block Status: Acute Assessment and Plan: Patient had a sinus phos early this morning. Now off of Precedex Electrolytes reviewed and were in normal range Will monitor. If recurrent, will pursue further workup and consult Cardiology Recent echocardiogram reviewed Subjective Date/time seen: 11/25/22 11:45 Intubated Exam Narrative: General: Patient is intubated and sedated, in no distress HEENT:? Pupils equal and reactive, sclera is clear, ETT in place Neck: Supple Respiratory:? Decreased air entry bases and right upper lobe. Coarse breath sounds, no wheezing this morning, otherwise adequate air entry Cardiac:? S1-S2 is normal, normal sinus rhythm tachycardic Abdomen:? Soft, nondistended, nontender, normoactive bowel sounds, protuberant abdomen Extremities:? No edema, palpable pedal pulses Neuro:? Is intubated and sedated, despite sedation he appears agitated nods to questions, follows simple commands in all extremities Skin:? Warm and dry, no lesions noted Psych:? Unable to assess at this time Objective Data Vital Signs Vital Signs: Vital Signs - 24 hr 11/24/22 12:00 11/24/22 12:00 11/24/22 14:00 Temperature Pulse Rate 113 H 111 H Respiratory Rate Blood Pressure Pulse Oximetry Oxygen Delivery Fraction of Inspired Oxygen 30 11/24/22 12:00 11/24/22 12:00 11/24/22 12:00 [place]
[2022-11-25 11:57] LABS: Glucose Point of Care 172 mg/dl (65-105)
[2022-11-25 12:13] LABS: Lipase 25 U/L (23-300)
[2022-11-25 12:14] LABS: Lactic Acid Reflex 1.3 mmol/L (0.7-2.0)
[2022-11-25] MEDS: CENTRAL LINE FLUSH 10 ML IV PUSH ×2 (13:07→20:37)
[2022-11-25 13:42] LABS: Procalcitonin 0.4 ng/mL
[2022-11-25] MEDS: PROPOFOL IV EMULSION 100 ML 9.2 MG IV CONT (17:18)
[2022-11-25 17:32] LABS: Glucose Point of Care 182 mg/dl (65-105)
[2022-11-25] MEDS: MINERAL OIL/WHITE PETROLATUM OINTMENT 1 APPLIC EACH EYE (20:36)
[2022-11-25] MEDS: SENNA/DOCUSATE SODIUM TABLET 1 TAB PO (20:36)
[2022-11-26] VITALS (37 sets, daily range): BP systolic 88–176; BP diastolic 73–87; PULSE 87–130; RESP 16–32; TEMP 36.2–38.2; O2SAT 91–98
[2022-11-26 00:21] LABS: Glucose Point of Care 121 mg/dl (65-105)
[2022-11-26] MEDS: IPRATROPIUM BR 0.02% INH SOLN 0.5 MG/2.5 ML VIAL INHALATION ×4 (02:31→20:12)
[2022-11-26] MEDS: FENTANYL 2,500MCG/NS250ML(*CRX 2,500 MCG/250 ML BAG 15 MCG IV CONT (02:51)
[2022-11-26] MEDS: PROPOFOL IV EMULSION 100 ML 9.2 MG IV CONT (02:52)
[2022-11-26 04:06] LABS: Hematocrit 32.8 % (42.0-52.0); Hemoglobin 10.5 g/dL (14.0-18.0); Mean Corpuscular Hemoglobin 30.2 pg (26-34); Mean Corpuscular Volume 94.3 fl (80-100); Mean Platelet Volume 10.1 fl (7.4-10.4); Platelet Count Result 313 k/mm3 (150-375); Red Blood Count 3.48 M/mm3 (4.6-6.20); Red Cell Distribution Width 15.3 % (11.5-14.5); White Blood Count 20.9 K/mm3 (4.5-10.0)
[2022-11-26 04:25] LABS: Alanine Aminotransferase 66 U/L (6-50); Alkaline Phosphatase 67 U/L (38-126); Anion Gap 1 mmol/L (8-16); Aspartate Amino Transferase 29 U/L (17-59); Bilirubin,Total 0.4 mg/dL (0.2-1.3); Blood Urea Nitrogen 29 mg/dL (9-20); Calcium 7.9 mg/dL (8.4-10.2); Carbon Dioxide 32 mmol/L (22-30); Chloride 99 mmol/L (98-107); Estimated CRCL calculation 112 ml/min; Estimated Glomerular Filt Rate > 60; Glucose 131 mg/dL (65-110); Magnesium 2.3 mg/dL (1.6-2.3); Potassium 4.1 mmol/L (3.4-5.0); Sodium 132 mmol/L (137-145); Triglycerides 79 mg/dL (<150)
[2022-11-26 05:13] LABS: Alveolar/Arterial O2 Gradient 150.6 mmHg; Base Excess ABG 3.7 mEq/l (+/-2.0); Carboxyhemoglobin 0.7 % THb (0-2.0); Fractional Inspired Oxygen 40 %; HCO3 ABG 30.1 mEq/l (22.0-26.0); Methemoglobin ABG 0.2 %THb (0-1.5); Oxygen Content ABG 18.6 %vol (16.0-22.0); Oxygen Saturation ABG 94.4 % (95.0-100.0); PCO2 ABG 52.6 mmHg (35.0-45.0); PO2 ABG 74.1 mmHg (80.0-100.0); PO2 FiO2 Ratio Arterial Blood 1.85 %; Reduced Hemoglobin 6.1 %THb (0-5.0); Total Hemoglobin 14.2 g/dL (12.0-18.0); pH ABG 7.376 (7.350-7.450)
[2022-11-26 05:19] LABS: Arterial Blood Gas PEEP 5 cmH2O; Arterial Blood Gas Vent Mode CMV; Arterial Blood Gas Ventilator rate 18 /MIN; Device VENTILATOR; Modified Allen's Test Pass; Site Drawn RIGHT RADIAL
[2022-11-26 05:20] LABS: Arterial Blood Gas Tidal Volume 450 ml
[2022-11-26] MEDS: CENTRAL LINE FLUSH 10 ML IV PUSH ×3 (06:08→23:00)
[2022-11-26] MEDS: BUDESONIDE RESPULE NEB 0.5 MG/2 ML AMP INHALATION ×2 (07:05→20:12)
[2022-11-26] MEDS: DORNASE ALFA INH SOLN 1 MG/ML 2.5 ML AMP 2.5 MG INHALATION ×2 (07:05→20:12)
[2022-11-26] MEDS: methylPREDNISolone SOD SUCC 125 MG VIAL 60 MG IV PUSH (08:00)
[2022-11-26] MEDS: PANTOPRAZOLE SODIUM IV 40 MG VIAL IV PUSH (08:00)
[2022-11-26] MEDS: MINERAL OIL/WHITE PETROLATUM OINTMENT 1 APPLIC EACH EYE (08:00)
[2022-11-26] MEDS: polyethylene glycoL 3350 17 GM POWD.PACK PO (08:00)
[2022-11-26] MEDS: ROFLUMILAST 500 MCG TABLET PO (08:00)
[2022-11-26] MEDS: ASPIRIN 81 MG CHEWABLE TABLET PO (08:01)
[2022-11-26] MEDS: LATANOPROST 0.005% OP SOLN 2.5 ML BTL 1 DROP EACH EYE (08:01)
[2022-11-26] MEDS: ENOXAPARIN 40 MG/0.4 ML SYRINGE SUB-Q (08:01)
--- NOTE | 2022-11-26 09:05 | WPDINTPN ---
Progress Note: A&P Assessment and Plan (1) Acute and chronic respiratory failure with hypoxia: Code(s): J96.21 - Acute and chronic respiratory failure with hypoxia Status: Acute Assessment and Plan: Likely related to COPD exacerbation, possible underlying pneumonia -patient presented with dyspnea, cough productive with yellow sputum 11/20 chest CTA No evidence of pulmonary embolus, aortic dissection, or aortic aneurysm. Chronic complete right upper lobe collapse, as seen on prior exam. Minimal emphysema. 11/25 CT chest - ?Subsegmental consolidation in the right lung base, with volume loss. Minimal left basilar atelectasis. Persistent right upper lobe collapse. Endobronchial devices in right upper lobe bronchi. -chest x-ray reviewed -ABG reviewed -will try pressure support weaning trial today -currently on Versed, propofol and fentanyl. -he was on Precedex overnight which had to be stopped because of sinus pause -continue bronchodilators, systemic steroids, continue budesonide nebulizer - continue Pulmozyme for increased secretions - continue vancomycin(11/19) and cefepime (11/21) completed azithromycin - ceftriaxone discontinued on 11/21 -discontinue vancomycin 11/26 - continue Daliresp (2) Fever: Code(s): R50.9 - Fever, unspecified Status: Acute Assessment and Plan: 11/25 Patient febrile overnight and tachycardic this morning 1 L NS bolus IV acetaminophen Repeat cultures sent and pending UA unremarkable. Elias change Low procalcitonin level Normal lactic acid level Normal lipase Repeat CT chest abdomen pelvis Limited exam, as noted above. Appropriately positioned endotracheal tube, right upper extremity PICC, and NG tube. Subsegmental right basilar atelectasis/consolidation. Small right pleural effusion. No acute process detected in the abdomen/pelvis. (3) Pneumonia: Code(s): J18.9 - Pneumonia, unspecified organism Status: Acute Assessment and Plan: See above (4) Acute exacerbation of chronic obstructive pulmonary disease: Code(s): J44.1 - Chronic obstructive pulmonary disease with (acute) exacerbation Status: Acute Assessment and Plan: Continue mechanical ventilation, steroids, bronchodilators and antibiotics (5) Chest pain: Code(s): R07.9 - Chest pain, unspecified Status: Acute Assessment and Plan: 11/20/2022 chest CTA: No evidence of pulmonary embolism, aortic dissection or aortic aneurysm. Chronic complete right upper lobe collapse as seen on prior exam, minimal emphysema -troponin negative on presentation -patient does have a history of chronic pain syndrome, -received multiple doses of morphine -patient be started fentanyl infusion as he is intubated (6) Chronic deep vein thrombosis (DVT): Qualifiers: DVT location: lower extremity Affected thrombotic vein of extremity: unspecified vein of extremity Laterality: unspecified laterality Qualified Code(s): I82.509 - Chronic embolism and thrombosis of unspecified deep veins of unspecified lower extremity Code(s): I82.509 - Chronic embolism and thrombosis of unspecified deep veins of unspecified lower extremity Status: Acute Assessment and Plan: History of chronic DVTs - 11/22 Bilateral lower extremity venous Doppler were negative for DVT -11/20/2022 CTA chest was negative for PE (7) Chronic pain syndrome: Code(s): G89.4 - Chronic pain syndrome Status: Acute Assessment and Plan: Patient does take Vicodin at home Currently on Fentanyl infusion (8) Gastroesophageal reflux disease: Code(s): K21.9 - Gastro-esophageal reflux disease without esophagitis Status: Acute Assessment and Plan: continue Protonix (9) Sinus pause: Code(s): I45.5 - Other specified heart block Status: Acute Assessment and Plan: 11/24 Patient had a sinus pause early this morning. Now off of Precedex Electrolytes reviewe
--- NOTE | 2022-11-26 10:20 | PCFNICU ---
ICU Rounding Note: Pt current nutrition is Vital HP @ 70 ml/h provides 1540 kcals, 134 g protein, 1287 ml free water. Flushes 30 ml q 4 h. Nutrition recommendation: Change formula to Vital 1.2 @ 70 ML/H to provide 1848 kcals, 115 g protein, 1249 ml free water as propofol has been stopped Last recorded weight is 104.5 kg. Bowel Motility: No BMs charted Labs Reviewed: Hgb 10.5, Hct 32.8, Alb 3.0, Na 132, BUN 29 Meds Noted: Propofol is stopped. Fentanyl and versed decreasing. Reglan SkinWNL Additional Notes: Propofol stopped, fentanyl and versed being decreased. Recommend switching to more calorie dense formula Vital 1.2 @ 70 ml/h to provide estimated energy needs. Following daily in ICU rounds. Will montior daily in ICU rounds and reassessing every Saturday and Saturday..
[2022-11-26 10:21] LABS: Alveolar/Arterial O2 Gradient 156.4 mmHg; Fractional Inspired Oxygen 40 %; HCO3 ABG 30.3 mEq/l (22.0-26.0); Oxygen Saturation ABG 95.1 % (95.0-100.0); Oxyhemoglobin 93.5 % THb (90.0-100.0); PCO2 ABG 47.5 mmHg (35.0-45.0); PO2 ABG 74.2 mmHg (80.0-100.0); PO2 FiO2 Ratio Arterial Blood 1.85 %; Total Hemoglobin 12.1 g/dL (12.0-18.0); pH ABG 7.422 (7.350-7.450)
[2022-11-26 10:22] LABS: Device VENTILATOR; Modified Allen's Test Pass; Site Drawn RIGHT RADIAL
--- NOTE | 2022-11-26 11:00 | PM.IMPN ---
Progress Note: A&P Assessment and Plan (1) Acute and chronic respiratory failure with hypoxia: Code(s): J96.21 - Acute and chronic respiratory failure with hypoxia Status: Acute Assessment and Plan: Likely related to COPD exacerbation, possible underlying pneumonia -patient presented with dyspnea, cough productive with yellow sputum -chest x-ray reviewed -continue bronchodilators, systemic steroids, continue budesonide nebulizer - continue Pulmozyme - continue vancomycin(11/19) and cefepime (11/21) -continue Daliresp (2) Pneumonia: Code(s): J18.9 - Pneumonia, unspecified organism Status: Acute Assessment and Plan: WBC count trending down, continue antibiotics as above, continue mechanical ventilation (3) Acute exacerbation of chronic obstructive pulmonary disease: Code(s): J44.1 - Chronic obstructive pulmonary disease with (acute) exacerbation Status: Acute Assessment and Plan: Continue mechanical ventilation, steroids, bronchodilators and antibiotics (4) Chest pain: Code(s): R07.9 - Chest pain, unspecified Status: Acute Assessment and Plan: 11/20/2022 chest CTA: No evidence of pulmonary embolism, aortic dissection or aortic aneurysm. Chronic complete right upper lobe collapse as seen on prior exam, minimal emphysema -troponin -patient does have a history of chronic pain syndrome, -received multiple doses of morphine -patient be started fentanyl infusion as he is intubated (5) Chronic deep vein thrombosis (DVT): Qualifiers: DVT location: lower extremity Affected thrombotic vein of extremity: unspecified vein of extremity Laterality: unspecified laterality Qualified Code(s): I82.509 - Chronic embolism and thrombosis of unspecified deep veins of unspecified lower extremity Code(s): I82.509 - Chronic embolism and thrombosis of unspecified deep veins of unspecified lower extremity Status: Acute Assessment and Plan: History of chronic DVTs - 11/22 Bilateral lower extremity venous Doppler were negative for DVT -11/20/2022 CTA chest was negative for PE (6) Chronic pain syndrome: Code(s): G89.4 - Chronic pain syndrome Status: Acute Assessment and Plan: Patient does take Vicodin at home Fentanyl infusion (7) Gastroesophageal reflux disease: Code(s): K21.9 - Gastro-esophageal reflux disease without esophagitis Status: Acute Assessment and Plan: continue Protonix (8) Sinus pause: Code(s): I45.5 - Other specified heart block Status: Acute Assessment and Plan: Patient had a sinus phos early this morning. Now off of Precedex Electrolytes reviewed and were in normal range Will monitor. If recurrent, will pursue further workup and consult Cardiology Recent echocardiogram reviewed Subjective Date/time seen: 11/26/22 11:00 Intubated Exam Narrative: General: Patient is intubated and sedated, in no distress HEENT:? Pupils equal and reactive, sclera is clear, ETT in place Neck: Supple Respiratory:? Decreased air entry bases and right upper lobe. Coarse breath sounds, no wheezing this morning, otherwise adequate air entry Cardiac:? S1-S2 is normal, normal sinus rhythm tachycardic Abdomen:? Soft, nondistended, nontender, normoactive bowel sounds, protuberant abdomen Extremities:? No edema, palpable pedal pulses Neuro:? Is intubated and sedated, despite sedation he appears agitated nods to questions, follows simple commands in all extremities Skin:? Warm and dry, no lesions noted Psych:? Unable to assess at this time Objective Data Vital Signs Vital Signs: Vital Signs - 24 hr 11/25/22 12:00 11/25/22 12:00 11/25/22 12:00 Temperature 99.9 F H Pulse Rate 114 H 112 H Respiratory Rate 22 H Blood Pressure 124/78 Pulse Oximetry 93 Oxygen Delivery Fraction of Inspired Oxygen 30 11/25/22 12:00 11/25/22 13:58 11/25/22 13:58 [facility]
[2022-11-26 11:56] LABS: Glucose Point of Care 147 mg/dl (65-105)
[2022-11-26] MEDS: MORPHINE SULFATE (*CRX) 4 MG/ML INJ IV PUSH ×3 (12:52→19:59)
[2022-11-26 15:57] LABS: Vancomycin Trough 8.2 ug/mL (10.0-20.0)
[2022-11-26] MEDS: SCOPOLAMINE 1.5 MG PATCH TRANSDERM (16:32)
[2022-11-26] MEDS: HYDROcodone/acetaminophen (*CRX) 5-325 MG TABLET 1 TAB PO (16:40)
[2022-11-26 16:46] LABS: Glucose Point of Care 122 mg/dl (65-105)
--- NOTE | 2022-11-26 17:00 | PC.NURSE ---
Pt complains of right sided pain. States It's my lungs, like when I had COVID. PRN norco given. Approximately 10 minutes later pts called administrative underwriter into room. Pt tearful guarding right side. Reports this pain is not new, it's the same pain he has had prior to hospitalization. Denies SOB. lung sounds clear bilaterally. O2 95%. Pt requesting breathing treatment. Dr. Maza notified. New orders noted for Xopenex neb tx. Advised to give PRN morphine.
[2022-11-26] MEDS: MELATONIN 5 MG TABLET PO (19:59)
[2022-11-26] MEDS: SENNA/DOCUSATE SODIUM TABLET 1 TAB PO (21:50)
[2022-11-27] VITALS (22 sets, daily range): BP systolic 111–140; BP diastolic 71–95; PULSE 83–120; RESP 16–24; TEMP 37.2–38; O2SAT 93–99
[2022-11-27 00:43] LABS: Glucose Point of Care 84 mg/dl (65-105)
[2022-11-27] MEDS: MORPHINE SULFATE (*CRX) 4 MG/ML INJ IV PUSH ×2 (01:17→06:43)
[2022-11-27] MEDS: IPRATROPIUM BR 0.02% INH SOLN 0.5 MG/2.5 ML VIAL INHALATION ×4 (02:47→20:11)
[2022-11-27 05:42] LABS: Hematocrit 35.6 % (42.0-52.0); Hemoglobin 11.4 g/dL (14.0-18.0); Mean Corpuscular Hemoglobin 30.3 pg (26-34); Mean Corpuscular Volume 94.7 fl (80-100); Mean Platelet Volume 10.2 fl (7.4-10.4); Platelet Count Result 329 k/mm3 (150-375); Red Blood Count 3.76 M/mm3 (4.6-6.20); Red Cell Distribution Width 15.3 % (11.5-14.5); White Blood Count 18.5 K/mm3 (4.5-10.0)
[2022-11-27 06:10] LABS: Alanine Aminotransferase 76 U/L (6-50); Albumin Level 3.3 g/dL (3.5-5.1); Alkaline Phosphatase 73 U/L (38-126); Anion Gap 4 mmol/L (8-16); Aspartate Amino Transferase 34 U/L (17-59); Bilirubin,Total 0.8 mg/dL (0.2-1.3); Blood Urea Nitrogen 24 mg/dL (9-20); Calcium 8.4 mg/dL (8.4-10.2); Carbon Dioxide 34 mmol/L (22-30); Chloride 97 mmol/L (98-107); Estimated CRCL calculation 112 ml/min; Estimated Glomerular Filt Rate > 60; Glucose 85 mg/dL (65-110); Magnesium 2.2 mg/dL (1.6-2.3); Potassium 3.9 mmol/L (3.4-5.0); Sodium 135 mmol/L (137-145)
[2022-11-27 06:11] LABS: Alveolar/Arterial O2 Gradient 79.7 mmHg; Base Excess ABG 6.9 mEq/l (+/-2.0); Carboxyhemoglobin 0.9 % THb (0-2.0); Device NASAL CANNULA; Fractional Inspired Oxygen 28 %; HCO3 ABG 31.4 mEq/l (22.0-26.0); Modified Allen's Test Pass; Oxygen Content ABG 15.2 %vol (16.0-22.0); Oxygen Saturation ABG 94.3 % (95.0-100.0); Oxyhemoglobin 92.7 % THb (90.0-100.0); PCO2 ABG 44.5 mmHg (35.0-45.0); PO2 ABG 67.4 mmHg (80.0-100.0); PO2 FiO2 Ratio Arterial Blood 2.41 %; Reduced Hemoglobin 6.4 %THb (0-5.0); Site Drawn RIGHT RADIAL; Total Hemoglobin 11.6 g/dL (12.0-18.0); pH ABG 7.467 (7.350-7.450)
[2022-11-27] MEDS: CENTRAL LINE FLUSH 10 ML IV PUSH ×3 (06:32→21:18)
[2022-11-27] MEDS: BUDESONIDE RESPULE NEB 0.5 MG/2 ML AMP INHALATION ×2 (07:58→20:12)
[2022-11-27] MEDS: DORNASE ALFA INH SOLN 1 MG/ML 2.5 ML AMP 2.5 MG INHALATION (07:58)
[2022-11-27] MEDS: CALCIUM CARBONATE (TUMS) 500 MG (200 MG ELEMENTAL) PO (08:36)
[2022-11-27] MEDS: HYDROcodone/acetaminophen (*CRX) 5-325 MG TABLET 1 TAB PO ×3 (08:36→18:33)
[2022-11-27] MEDS: ASPIRIN 81 MG CHEWABLE TABLET PO (08:36)
[2022-11-27] MEDS: ENOXAPARIN 40 MG/0.4 ML SYRINGE SUB-Q (08:37)
[2022-11-27] MEDS: polyethylene glycoL 3350 17 GM POWD.PACK PO (08:37)
[2022-11-27] MEDS: LATANOPROST 0.005% OP SOLN 2.5 ML BTL 1 DROP EACH EYE (08:37)
[2022-11-27] MEDS: PANTOPRAZOLE SODIUM IV 40 MG VIAL IV PUSH (08:37)
[2022-11-27] MEDS: ROFLUMILAST 500 MCG TABLET PO (08:37)
[2022-11-27] MEDS: methylPREDNISolone SOD SUCC 40 MG VIAL IV PUSH (08:38)
--- NOTE | 2022-11-27 09:11 | WPDINTPN ---
Progress Note: A&P Assessment and Plan (1) Acute and chronic respiratory failure with hypoxia: Code(s): J96.21 - Acute and chronic respiratory failure with hypoxia Status: Acute Assessment and Plan: Likely related to COPD exacerbation, possible underlying pneumonia -patient presented with dyspnea, cough productive with yellow sputum 11/20 chest CTA No evidence of pulmonary embolus, aortic dissection, or aortic aneurysm. Chronic complete right upper lobe collapse, as seen on prior exam. Minimal emphysema. 11/25 CT chest - ?Subsegmental consolidation in the right lung base, with volume loss. Minimal left basilar atelectasis. Persistent right upper lobe collapse. Endobronchial devices in right upper lobe bronchi. 11/26 -extubated. Doing well on nasal cannula -refusing to wear BiPAP. BiPAP is ordered p.r.n. at night. -wean systemic steroids -continue bronchodilators, -he was started vancomycin(11/19) and cefepime (11/21) - completed azithromycin - ceftriaxone discontinued on 11/21 -discontinue vancomycin 11/26. Continue cefepime for 10 day course - continue Daliresp (2) Fever: Code(s): R50.9 - Fever, unspecified Status: Acute Assessment and Plan: 11/25 Patient febrile overnight and tachycardic this morning 1 L NS bolus IV acetaminophen Repeat cultures sent and pending UA unremarkable. Elias change Low procalcitonin level Normal lactic acid level Normal lipase Repeat CT chest abdomen pelvis Limited exam, as noted above. Appropriately positioned endotracheal tube, right upper extremity PICC, and NG tube. Subsegmental right basilar atelectasis/consolidation. Small right pleural effusion. No acute process detected in the abdomen/pelvis. Antibiotics as above (3) Pneumonia: Code(s): J18.9 - Pneumonia, unspecified organism Status: Acute Assessment and Plan: See above (4) Acute exacerbation of chronic obstructive pulmonary disease: Code(s): J44.1 - Chronic obstructive pulmonary disease with (acute) exacerbation Status: Acute Assessment and Plan: Continue mechanical ventilation, steroids, bronchodilators and antibiotics (5) Chest pain: Code(s): R07.9 - Chest pain, unspecified Status: Acute Assessment and Plan: 11/20/2022 chest CTA: No evidence of pulmonary embolism, aortic dissection or aortic aneurysm. Chronic complete right upper lobe collapse as seen on prior exam, minimal emphysema -troponin negative on presentation -patient does have a history of chronic pain syndrome, -the pain is pleuritic or musculoskeletal in nature. CT chest as above -continue p.r.n. of chest (6) Chronic deep vein thrombosis (DVT): Qualifiers: DVT location: lower extremity Affected thrombotic vein of extremity: unspecified vein of extremity Laterality: unspecified laterality Qualified Code(s): I82.509 - Chronic embolism and thrombosis of unspecified deep veins of unspecified lower extremity Code(s): I82.509 - Chronic embolism and thrombosis of unspecified deep veins of unspecified lower extremity Status: Acute Assessment and Plan: History of chronic DVTs - 11/22 Bilateral lower extremity venous Doppler were negative for DVT -11/20/2022 CTA chest was negative for PE (7) Chronic pain syndrome: Code(s): G89.4 - Chronic pain syndrome Status: Acute Assessment and Plan: Patient does take Vicodin at home P.r.n. analgesic ordered (8) Gastroesophageal reflux disease: Code(s): K21.9 - Gastro-esophageal reflux disease without esophagitis Status: Acute Assessment and Plan: continue Protonix and Tums (9) Sinus pause: Code(s): I45.5 - Other specified heart block Status: Acute Assessment and Plan: 11/24 Patient had a sinus pause early this morning. Now off of Precedex Electrolytes reviewed and were in normal range Will monitor. If recurrent, will pursue further workup and consult Card
--- NOTE | 2022-11-27 11:42 | PCNFU ---
Nutrition Follow-Up Complete: Inadequate Oral Intake as related to mechanical ventilation as evidenced by NPO goal; Meet estimated nutritional needs Patient is progressing towards goal. We will continue current goal. Pt current nutrition is Regular. Last recorded weight is 104.9 kg. Bowel Motility:No Bm reported. Labs Reviewed:BUN 24, Na 135, Hct 35.6,Hgb 11.4 Meds Noted:Miralax, Protonix, Solu Medrol Skin: WNL Additional Notes: Patient has been extubated. Tolerating clear liquids for breakfast and advancing to regular diet. Agree with diet orders. Monitoring: Will monitor every 3 days.
[2022-11-27] MEDS: MELATONIN 5 MG TABLET PO (18:33)
[2022-11-27] MEDS: SENNA/DOCUSATE SODIUM TABLET 1 TAB PO (21:18)
[2022-11-28] VITALS (26 sets, daily range): BP systolic 105–148; BP diastolic 71–92; PULSE 91–137; RESP 18–29; TEMP 37.4–38.1; O2SAT 93–100
[2022-11-28] MEDS: HYDROcodone/acetaminophen (*CRX) 5-325 MG TABLET 1 TAB PO ×4 (00:59→18:02)
[2022-11-28] MEDS: IPRATROPIUM BR 0.02% INH SOLN 0.5 MG/2.5 ML VIAL INHALATION ×4 (02:51→20:14)
[2022-11-28 04:04] LABS: Hematocrit 35.9 % (42.0-52.0); Hemoglobin 11.5 g/dL (14.0-18.0); Mean Corpuscular Volume 93.7 fl (80-100); Platelet Count Result 333 k/mm3 (150-375); Red Blood Count 3.83 M/mm3 (4.6-6.20); White Blood Count 16.5 K/mm3 (4.5-10.0)
[2022-11-28 04:19] LABS: Alanine Aminotransferase 150 U/L (6-50); Albumin Level 3.6 g/dL (3.5-5.1); Alkaline Phosphatase 82 U/L (38-126); Anion Gap 6 mmol/L (8-16); Aspartate Amino Transferase 72 U/L (17-59); Bilirubin,Total 0.9 mg/dL (0.2-1.3); Blood Urea Nitrogen 22 mg/dL (9-20); Calcium 8.8 mg/dL (8.4-10.2); Carbon Dioxide 33 mmol/L (22-30); Chloride 98 mmol/L (98-107); Estimated CRCL calculation 113 ml/min; Estimated Glomerular Filt Rate > 60; Glucose 84 mg/dL (65-110); Magnesium 2.3 mg/dL (1.6-2.3); Potassium 3.8 mmol/L (3.4-5.0); Sodium 137 mmol/L (137-145)
[2022-11-28 04:38] LABS: Vancomycin Trough 6.5 ug/mL (10.0-20.0)
[2022-11-28] MEDS: CENTRAL LINE FLUSH 10 ML IV PUSH ×3 (05:45→21:01)
[2022-11-28] MEDS: methylPREDNISolone SOD SUCC 40 MG VIAL IV PUSH (09:11)
[2022-11-28] MEDS: ROFLUMILAST 500 MCG TABLET PO (09:11)
[2022-11-28] MEDS: polyethylene glycoL 3350 17 GM POWD.PACK PO (09:11)
[2022-11-28] MEDS: CALCIUM CARBONATE (TUMS) 500 MG (200 MG ELEMENTAL) PO (09:11)
[2022-11-28] MEDS: PANTOPRAZOLE SODIUM IV 40 MG VIAL IV PUSH (09:11)
[2022-11-28] MEDS: ENOXAPARIN 40 MG/0.4 ML SYRINGE SUB-Q (09:12)
[2022-11-28] MEDS: ASPIRIN 81 MG CHEWABLE TABLET PO (09:12)
[2022-11-28] MEDS: LATANOPROST 0.005% OP SOLN 2.5 ML BTL 1 DROP EACH EYE (09:12)
[2022-11-28] MEDS: BUDESONIDE RESPULE NEB 0.5 MG/2 ML AMP INHALATION ×2 (09:27→20:14)
--- NOTE | 2022-11-28 09:27 | PCPTNOTE ---
Attempted PT evaluation, pt refused stating I don't want to today. RN in room during refusal. Will follow.
--- NOTE | 2022-11-28 11:15 | ECG_ITS ---
Measurements Intervals [place] Rate: 114 P: 82 RI: 134 QRS: 32 QRSD: 82 T: 83 QT: 293 QTc: 403 Interpretive Statements SINUS TACHYCARDIA ABNORMAL RHYTHM ECG COMPARED TO ECG 11/25/2022 04:36:11 NO SIGNIFICANT CHANGES Electronically Signed On 11-28-2022 15:30:15 WHEEL INSPECTOR by Colleen Sawyer M.D.
[2022-11-28] MEDS: ACETAMINOPHEN 325 MG TABLET 650 MG FEED TUBE (11:19)
[2022-11-28] MEDS: ACETAMINOPHEN 325 MG TABLET 650 MG PO (21:22)
[2022-11-28] MEDS: BENZONATATE 100 MG CAPSULE 200 MG PO (21:22)
[2022-11-29] VITALS (23 sets, daily range): BP systolic 105–118; BP diastolic 69–80; PULSE 88–148; RESP 16–32; TEMP 37.7–37.9; O2SAT 97–100
[2022-11-29] MEDS: HYDROcodone/acetaminophen (*CRX) 5-325 MG TABLET 1 TAB PO ×4 (01:53→18:59)
[2022-11-29] MEDS: IPRATROPIUM BR 0.02% INH SOLN 0.5 MG/2.5 ML VIAL INHALATION ×4 (02:51→20:09)
[2022-11-29 04:32] LABS: Hematocrit 35.2 % (42.0-52.0); Hemoglobin 11.3 g/dL (14.0-18.0); Mean Corpuscular HGB Conc 32.1 g/dl (32-36); Mean Corpuscular Hemoglobin 30.1 pg (26-34); Mean Corpuscular Volume 93.9 fl (80-100); Mean Platelet Volume 10.1 fl (7.4-10.4); Platelet Count Result 299 k/mm3 (150-375); Red Blood Count 3.75 M/mm3 (4.6-6.20); Red Cell Distribution Width 14.4 % (11.5-14.5); White Blood Count 16.9 K/mm3 (4.5-10.0)
[2022-11-29 04:49] LABS: Alanine Aminotransferase 164 U/L (6-50); Albumin Level 3.6 g/dL (3.5-5.1); Alkaline Phosphatase 87 U/L (38-126); Anion Gap 2 mmol/L (8-16); Aspartate Amino Transferase 57 U/L (17-59); Bilirubin,Total 0.8 mg/dL (0.2-1.3); Blood Urea Nitrogen 21 mg/dL (9-20); Calcium 8.5 mg/dL (8.4-10.2); Carbon Dioxide 34 mmol/L (22-30); Chloride 96 mmol/L (98-107); Estimated CRCL calculation 111 ml/min; Estimated Glomerular Filt Rate > 60; Glucose 124 mg/dL (65-110); Magnesium 2.3 mg/dL (1.6-2.3); Potassium 3.4 mmol/L (3.4-5.0); Sodium 132 mmol/L (137-145)
[2022-11-29] MEDS: CENTRAL LINE FLUSH 10 ML IV PUSH ×3 (05:18→21:25)
[2022-11-29] MEDS: BUDESONIDE RESPULE NEB 0.5 MG/2 ML AMP INHALATION ×2 (07:13→20:09)
[2022-11-29] MEDS: LATANOPROST 0.005% OP SOLN 2.5 ML BTL 1 DROP EACH EYE (09:18)
[2022-11-29] MEDS: methylPREDNISolone SOD SUCC 40 MG VIAL IV PUSH (09:18)
[2022-11-29] MEDS: ASPIRIN 81 MG CHEWABLE TABLET PO (09:18)
[2022-11-29] MEDS: ENOXAPARIN 40 MG/0.4 ML SYRINGE SUB-Q (09:18)
[2022-11-29] MEDS: polyethylene glycoL 3350 17 GM POWD.PACK PO (09:19)
[2022-11-29] MEDS: PANTOPRAZOLE SODIUM IV 40 MG VIAL IV PUSH (09:19)
[2022-11-29] MEDS: ROFLUMILAST 500 MCG TABLET PO (09:19)
--- NOTE | 2022-11-29 14:16 | PM.IMPN ---
Progress Note: A&P Assessment and Plan (1) Acute and chronic respiratory failure with hypoxia: Code(s): J96.21 - Acute and chronic respiratory failure with hypoxia Status: Acute Assessment and Plan: Likely related to COPD exacerbation, possible underlying pneumonia -patient presented with dyspnea, cough productive with yellow sputum 11/20 chest CTA No evidence of pulmonary embolus, aortic dissection, or aortic aneurysm. Chronic complete right upper lobe collapse, as seen on prior exam. Minimal emphysema. 11/25 CT chest - ?Subsegmental consolidation in the right lung base, with volume loss. Minimal left basilar atelectasis. Persistent right upper lobe collapse. Endobronchial devices in right upper lobe bronchi. 11/26 -extubated. Doing well on nasal cannula -refusing to wear BiPAP. BiPAP is ordered p.r.n. at night. -wean systemic steroids -continue bronchodilators, -he was started vancomycin(11/19) and cefepime (11/21) - completed azithromycin - ceftriaxone discontinued on 11/21 -discontinue vancomycin 11/26. Continue cefepime for 10 day course - continue Daliresp 11/29: Patient still has fever, leukocytosis. Blood culture so far no gross. Concerned about hospital-acquired pneumonia, recent extubated. Will switch to vancomycin and Zosyn IV, Follow-up CBC, procalcitonin Consult parking control officer for evaluation (2) Fever: Code(s): R50.9 - Fever, unspecified Status: Acute Assessment and Plan: 11/25 Patient febrile overnight and tachycardic this morning 1 L NS bolus Repeat cultures sent no growth so far UA unremarkable. Elias change Low procalcitonin level Normal lactic acid level Normal lipase Repeat CT chest abdomen pelvis Limited exam, as noted above. Appropriately positioned endotracheal tube, right upper extremity PICC, and NG tube. Subsegmental right basilar atelectasis/consolidation. Small right pleural effusion. No acute process detected in the abdomen/pelvis. Antibiotics as above 11/29: Has fever, leukocytosis. Currently patient is on cefepime. Changed to vanco and Zosyn, blood cultures no growth so far (3) Pneumonia: Code(s): J18.9 - Pneumonia, unspecified organism Status: Acute Assessment and Plan: Concerned about hospital-acquired pneumonia Switched to vancomycin Zosyn IV, stop cefepime 11/29 Worsening atelectasis of the right lung, consult parking control officer for evaluation and the treatment (4) Acute exacerbation of chronic obstructive pulmonary disease: Code(s): J44.1 - Chronic obstructive pulmonary disease with (acute) exacerbation Status: Acute Assessment and Plan: Continue off ventilation, steroids, bronchodilators and antibiotics Patient still has leukocytosis, fever, x-ray shows small pleural effusion, atelectasis in her lung, worse in right upper lobe Consult parking control officer for evaluation and treatment (5) Chest pain: Code(s): R07.9 - Chest pain, unspecified Status: Acute Assessment and Plan: 11/20/2022 chest CTA: No evidence of pulmonary embolism, aortic dissection or aortic aneurysm. Chronic complete right upper lobe collapse as seen on prior exam, minimal emphysema -troponin negative on presentation -patient does have a history of chronic pain syndrome, -the pain is pleuritic or musculoskeletal in nature. CT chest as above -continue p.r.n. of chest (6) Chronic deep vein thrombosis (DVT): Qualifiers: Affected thrombotic vein of extremity: unspecified vein of extremity DVT location: lower extremity Laterality: unspecified laterality Qualified Code(s): I82.509 - Chronic embolism and thrombosis of unspecified deep veins of unspecified lower extremity Code(s): I82.509 - Chronic embolism and thrombosis of unspecified deep veins of unspecified lower extremity Status: Acute Assessment and Plan: History of chronic DVTs - 11/22 Bilateral lower extremity venous Doppler were negative for DVT -11/20/2022
[2022-11-29] MEDS: ALTEPLASE 2 MG VIAL (CATHFLO) IV PUSH (15:49)
--- NOTE | 2022-11-29 16:14 | PM.PNPUL ---
Progress Note: A&P Assessment and Plan (1) Acute exacerbation of chronic obstructive airways disease: Code(s): J44.1 - Chronic obstructive pulmonary disease with (acute) exacerbation Status: Acute Assessment and Plan: GOLD grade 3 group E COPD. 61-year-old man with a history of severe COPD (quit tobacco 02/2019) with an FEV1 of 0.74 L, 30% predicted on 02/14/2019, status post RUL endobronchial valve, on 3 L home O2 and noninvasive ventilator at night (through IV respiratory care) was admitted with increased shortness of breath, cough, increased congestion, expiratory wheezes, leukocytosis, CTA without PE; He developed pneumonia, was intubated until 11/26, now completed Cefepime. (2) Acute and chronic respiratory failure with hypoxia: Code(s): J96.21 - Acute and chronic respiratory failure with hypoxia Status: Acute Assessment and Plan: Patient is home a on a home noninvasive ventilator with the AVAPS-Ae mode, and his has this at the bedside. 11/21 Download from 08/20/2022 through 10/26/2022. This is through [employer] Patient is on AVAPS-AE mode. Breath rate is auto, tidal volume 500, EPAP minimum 5, EPAP maximum 14, pressure support minimum 5, pressure support maximum 22, the ramp is off. % days used 88.2. % days used for 4 more hours 86.8%. Average tidal volume 420, average breath 17.6, average minute ventilation 8.8, average IPAP 16.2, average EPAP 7.1. average total leak is 79 liters/minute. I interpret this download as very good compliance, adequate pressures and high leak. Now that he is extubated, he can use the hospital noninvasive ventilator with the AVAPS mode with a breath rate of 20, tidal volume 500, EPAP 7, minimal inspiratory pressure 8, maximal inspiratory pressure 25, inspiratory time 1, rise of 3. Plan He has frequent back pain that is musculoskeletal, wraps around chest to the front, may respond to massage. He has a [place] stent in the RUL with a chronic collapse of a segment. CXR today is stable. He can have an O2 evaluation before discharge. Use his own Trilogy, can use this now. He has a number of environmental allergies, may benefit from sending to an traffic coordinator; his breathing is impacted by weather, seasonal changes. Agree with completing the antibiotics. Subjective Date/time seen: 11/29/22 16:14 Interval history: Hospital follow up : This patient was seen by Dr Ham for pulmonary consult Nov 20 and in follow up Nov 21. I was asked to see him again today 11/29/22; He is in ICU room 3, sitting beside the bed with his Sloane giving him a haircut. He was extubated Nov 26, now on nasal cannula 2 L/min O2, was on O2 at 3 L/min at home before admission, has advanced COPD with a [place] valve placed 2 years ago by Interventional Pulmonary at [facility]. He was extubated 11/26, had a fever, had antibiotics changed, off Cefepime, now on Zosyn and Vanco. His sputum is thick, discolored, easier to expectorate. He has his Trilogy device from home at the bedside. He has a right arm PICC. HISTORY: 61-year-old man with a history of severe COPD (quit tobacco 02/2019) with an FEV1 of 0.74 L, 30% predicted on 02/14/2019, status post RUL endobronchial valve, on 3 L home O2 and noninvasive ventilator at night.? Patient is followed in the Pulmonary [facility] in last seen on 08/30/2022 and he improved and was down to prednisone 5 mg every other day, and azithromycin 3 times a week, was off Daliresp and he was exercising.? The plan was to taper him off of prednisone over the next few weeks. Patient presented to the emergency department on 11/20/2022 with a few days of? shortness of breath, right back pain, chest congestion and cough.? He was on 3
[2022-11-30] VITALS (17 sets, daily range): BP systolic 108–145; BP diastolic 63–89; PULSE 86–118; RESP 15–22; TEMP 36.1–37.4; O2SAT 94–100
[2022-11-30] MEDS: HYDROcodone/acetaminophen (*CRX) 5-325 MG TABLET 1 TAB PO ×5 (00:27→21:17)
[2022-11-30] MEDS: IPRATROPIUM BR 0.02% INH SOLN 0.5 MG/2.5 ML VIAL INHALATION ×4 (02:10→19:36)
[2022-11-30 05:34] LABS: Hemoglobin 10.9 g/dL (14.0-18.0); Mean Corpuscular HGB Conc 32.1 g/dl (32-36); Mean Corpuscular Hemoglobin 30.4 pg (26-34); Mean Corpuscular Volume 94.7 fl (80-100); Mean Platelet Volume 10.1 fl (7.4-10.4); Platelet Count Result 291 k/mm3 (150-375); Red Blood Count 3.59 M/mm3 (4.6-6.20); Red Cell Distribution Width 14.5 % (11.5-14.5); White Blood Count 15.9 K/mm3 (4.5-10.0)
[2022-11-30 05:46] LABS: Alanine Aminotransferase 134 U/L (6-50); Albumin Level 3.4 g/dL (3.5-5.1); Alkaline Phosphatase 79 U/L (38-126); Anion Gap 0 mmol/L (8-16); Aspartate Amino Transferase 39 U/L (17-59); Bilirubin,Total 0.6 mg/dL (0.2-1.3); Blood Urea Nitrogen 19 mg/dL (9-20); Calcium 8.6 mg/dL (8.4-10.2); Carbon Dioxide 37 mmol/L (22-30); Chloride 99 mmol/L (98-107); Estimated CRCL calculation 97 ml/min; Estimated Glomerular Filt Rate > 60; Glucose 97 mg/dL (65-110); Magnesium 2.3 mg/dL (1.6-2.3); Potassium 3.5 mmol/L (3.4-5.0); Sodium 136 mmol/L (137-145)
[2022-11-30] MEDS: CENTRAL LINE FLUSH 10 ML IV PUSH ×3 (05:50→21:26)
[2022-11-30] MEDS: CALCIUM CARBONATE (TUMS) 500 MG (200 MG ELEMENTAL) PO (05:52)
[2022-11-30] MEDS: PANTOPRAZOLE SODIUM IV 40 MG VIAL IV PUSH (08:30)
[2022-11-30] MEDS: ROFLUMILAST 500 MCG TABLET PO (08:30)
[2022-11-30] MEDS: LATANOPROST 0.005% OP SOLN 2.5 ML BTL 1 DROP EACH EYE (08:30)
[2022-11-30] MEDS: ENOXAPARIN 40 MG/0.4 ML SYRINGE SUB-Q (08:30)
[2022-11-30] MEDS: ASPIRIN 81 MG CHEWABLE TABLET PO (08:30)
[2022-11-30] MEDS: LEVALBUTEROL NEB 1.25 MG/3 ML 0.63 MG INHALATION ×2 (08:35→15:28)
[2022-11-30] MEDS: BUDESONIDE RESPULE NEB 0.5 MG/2 ML AMP INHALATION ×2 (08:35→19:36)
--- NOTE | 2022-11-30 11:40 | PCNFU ---
Nutrition Follow-Up Complete: Inadequate Oral Intake as related to mechanical ventilation as evidenced by NPO Goal: Meet estimated nutritional needs We will continue current goal. Pt current nutrition is Regular. Nutrition recommendation: Ensure compact BID Last recorded weight is 100.5 kg. Bowel Motility:+BM reported 11/30 Labs Reviewed:Na 136, Alb 3.4 Meds Noted:Zosyn, Protonix Skin: Na 136, Alb 3.4, Hgb 10.9,Hct 34.0 Additional Notes: Patient has advanced to a regular diet. refused breakfast today but plans to eat lunch. Diet supplements order for Ensure compact BID for additional 220 kcals and 9 gms protein. PO intake encouraged. Agree with diet orders. Will monitor every 5 days.
--- NOTE | 2022-11-30 14:51 | PC.NURSE ---
This patient, Bentley Mesa, was received from [ICU 3 ] on 11/30/22 at 1451. Patient/family oriented to unit policies and routines. Patient resting comfortably with no complaints at this time. at bedside.
--- NOTE | 2022-11-30 15:50 | PM.IMPN ---
Progress Note: A&P Assessment and Plan (1) Acute and chronic respiratory failure with hypoxia: Code(s): J96.21 - Acute and chronic respiratory failure with hypoxia Status: Acute Assessment and Plan: Likely related to COPD exacerbation, possible underlying pneumonia -patient presented with dyspnea, cough productive with yellow sputum 11/20 chest CTA No evidence of pulmonary embolus, aortic dissection, or aortic aneurysm. Chronic complete right upper lobe collapse, as seen on prior exam. Minimal emphysema. 11/25 CT chest - ?Subsegmental consolidation in the right lung base, with volume loss. Minimal left basilar atelectasis. Persistent right upper lobe collapse. Endobronchial devices in right upper lobe bronchi. 11/26 -extubated. Doing well on nasal cannula -refusing to wear BiPAP. BiPAP is ordered p.r.n. at night. -wean systemic steroids -continue bronchodilators, -he was started vancomycin(11/19) and cefepime (11/21) - completed azithromycin - ceftriaxone discontinued on 11/21 -discontinue vancomycin 11/26. Continue cefepime for 10 day course - continue Daliresp 11/29: Patient still has fever, leukocytosis. Blood culture so far no gross. Concerned about hospital-acquired pneumonia, recent extubated. switch to vancomycin and Zosyn IV, Follow-up CBC, leukocytosis is improving Follow-up procalcitonin Consult rice farmer for evaluation (2) Fever: Code(s): R50.9 - Fever, unspecified Status: Acute Assessment and Plan: 11/25 Patient febrile overnight and tachycardic this morning 1 L NS bolus Repeat cultures sent no growth so far UA unremarkable. Elias change Low procalcitonin level Normal lactic acid level Normal lipase Repeat CT chest abdomen pelvis Limited exam, as noted above. Appropriately positioned endotracheal tube, right upper extremity PICC, and NG tube. Subsegmental right basilar atelectasis/consolidation. Small right pleural effusion. No acute process detected in the abdomen/pelvis. Antibiotics as above 11/29: Has fever, leukocytosis. Currently patient is on cefepime. Changed to vanco and Zosyn, blood cultures no growth so far (3) Pneumonia: Code(s): J18.9 - Pneumonia, unspecified organism Status: Acute Assessment and Plan: Concerned about hospital-acquired pneumonia Switched to vancomycin Zosyn IV, stop cefepime 11/29 Worsening atelectasis of the right lung, consult rice farmer for evaluation and the treatment (4) Acute exacerbation of chronic obstructive pulmonary disease: Code(s): J44.1 - Chronic obstructive pulmonary disease with (acute) exacerbation Status: Acute Assessment and Plan: Continue off ventilation, steroids, bronchodilators and antibiotics Patient still has leukocytosis, fever, x-ray shows small pleural effusion, atelectasis in her lung, worse in right upper lobe Consult rice farmer for evaluation and treatment (5) Chest pain: Code(s): R07.9 - Chest pain, unspecified Status: Acute Assessment and Plan: 11/20/2022 chest CTA: No evidence of pulmonary embolism, aortic dissection or aortic aneurysm. Chronic complete right upper lobe collapse as seen on prior exam, minimal emphysema -troponin negative on presentation -patient does have a history of chronic pain syndrome, -the pain is pleuritic or musculoskeletal in nature. CT chest as above -continue p.r.n. of chest (6) Chronic deep vein thrombosis (DVT): Qualifiers: Affected thrombotic vein of extremity: unspecified vein of extremity DVT location: lower extremity Laterality: unspecified laterality Qualified Code(s): I82.509 - Chronic embolism and thrombosis of unspecified deep veins of unspecified lower extremity Code(s): I82.509 - Chronic embolism and thrombosis of unspecified deep veins of unspecified lower extremity Status: Acute Assessment and Plan: History of chronic DVTs - 11/22 Bilateral lower extremity venous Doppler
--- NOTE | 2022-11-30 17:19 | PM.PNPUL ---
Progress Note: A&P Assessment and Plan (1) Acute exacerbation of chronic obstructive airways disease: Code(s): J44.1 - Chronic obstructive pulmonary disease with (acute) exacerbation Status: Acute Assessment and Plan: GOLD grade 3 group E COPD. 61-year-old man with a history of severe COPD (quit tobacco 02/2019) with an FEV1 of 0.74 L, 30% predicted on 02/14/2019, status post RUL endobronchial valve, on 3 L home O2 and noninvasive ventilator at night (through IV respiratory care) was admitted with increased shortness of breath, cough, increased congestion, expiratory wheezes, leukocytosis, CTA without PE; He developed pneumonia, was intubated until 11/26, now completed Cefepime. (2) Acute and chronic respiratory failure with hypoxia: Code(s): J96.21 - Acute and chronic respiratory failure with hypoxia Status: Acute Assessment and Plan: Patient is home a on a home noninvasive ventilator with the AVAPS-Ae mode, and his has this at the bedside. 11/21 Download from 08/20/2022 through 10/26/2022. This is through [employer]. Patient is on AVAPS-AE mode. Breath rate is auto, tidal volume 500, EPAP minimum 5, EPAP maximum 14, pressure support minimum 5, pressure support maximum 22, the ramp is off. % days used 88.2. % days used for 4 more hours 86.8%. Average tidal volume 420, average breath 17.6, average minute ventilation 8.8, average IPAP 16.2, average EPAP 7.1. average total leak is 79 liters/minute. I interpret this download as very good compliance, adequate pressures and high leak. Now that he is extubated, he can use his own Trilogy from home. He used it last night, slept well. Plan He has frequent back pain that is musculoskeletal, wraps around chest to the front, may respond to massage. He has a [place] stent in the RUL with a chronic collapse of a segment. CXR today is stable. He can have an O2 evaluation before discharge. Use his own Trilogy, can use this now. He has a number of environmental allergies, may benefit from sending to an offset pressman; his breathing is impacted by weather, seasonal changes. Agree with completing the antibiotics. I ordered Dornase roion, new [place] vibratory valve and vibratory vest TID to help clear secretions. Time Spent With Patient Time with patient: 15 - 25 minutes Subjective Date/time seen: 11/30/22 17:19 Interval history: Hospital follow up : He is seen in [facility] Nov 30, has been moved to Room 303. He was extubated Nov 26, now on nasal cannula 2 L/min O2, was on O2 at 3 L/min at home before admission, has advanced COPD with a [place] valve placed 2 years ago by Interventional Pulmonary at [facility]. He was extubated 11/26, had a fever, had antibiotics changed, off Cefepime, now on Zosyn and Vanco. His sputum is thick, discolored, easier to expectorate. HISTORY: 61-year-old man with a history of severe COPD (quit tobacco 02/2019) with an FEV1 of 0.74 L, 30% predicted on 02/14/2019, status post RUL endobronchial valve, on 3 L home O2 and noninvasive ventilator at night.? Patient is followed in the Pulmonary Clinic in last seen on 08/30/2022 and he improved and was down to prednisone 5 mg every other day, and azithromycin 3 times a week, was off Daliresp and he was exercising.? The plan was to taper him off of prednisone over the next few weeks. Patient presented to the emergency department on 11/20/2022 with a few days of? shortness of breath, right back pain, chest congestion and cough.? He was on 3 L nasal cannula saturations 82%, heart rate was 156 he had expiratory wheezes.? His white blood cell count was 25.2, his creatinine was 1.2 his COVID, influenza and RSV RT PCR studies were negative.? He had a CT anoop
[2022-11-30] MEDS: DORNASE ALFA INH SOLN 1 MG/ML 2.5 ML AMP 2.5 MG INHALATION (19:36)
[2022-11-30] MEDS: SENNA/DOCUSATE SODIUM TABLET 1 TAB PO (20:14)
[2022-11-30] MEDS: BENZONATATE 100 MG CAPSULE 200 MG PO (20:14)
[2022-12-01] VITALS (12 sets, daily range): BP systolic 108–121; BP diastolic 67–84; PULSE 94–133; RESP 18–24; TEMP 36.4–37.2; O2SAT 94–100
[2022-12-01] MEDS: IPRATROPIUM BR 0.02% INH SOLN 0.5 MG/2.5 ML VIAL INHALATION ×4 (02:16→20:19)
[2022-12-01] MEDS: HYDROcodone/acetaminophen (*CRX) 5-325 MG TABLET 1 TAB PO ×4 (03:24→19:13)
[2022-12-01] MEDS: CENTRAL LINE FLUSH 10 ML IV PUSH ×3 (06:03→21:10)
[2022-12-01 06:15] LABS: Estimated CRCL calculation 97 ml/min; Estimated Glomerular Filt Rate > 60
[2022-12-01 06:57] LABS: Vancomycin Trough 13.1 ug/mL (10.0-20.0)
[2022-12-01] MEDS: BUDESONIDE RESPULE NEB 0.5 MG/2 ML AMP INHALATION ×2 (07:07→20:19)
[2022-12-01] MEDS: DORNASE ALFA INH SOLN 1 MG/ML 2.5 ML AMP 2.5 MG INHALATION ×2 (07:07→20:03)
[2022-12-01] MEDS: LEVALBUTEROL NEB 1.25 MG/3 ML 0.63 MG INHALATION ×3 (07:08→16:44)
[2022-12-01] MEDS: FLUTICASONE PROPIONATE 0.05% NA SPR 16 GM BTL (*BKC) 1 SPRAY NASAL (08:07)
[2022-12-01] MEDS: ENOXAPARIN 40 MG/0.4 ML SYRINGE SUB-Q (08:07)
[2022-12-01] MEDS: PANTOPRAZOLE SODIUM IV 40 MG VIAL IV PUSH (08:08)
[2022-12-01] MEDS: ASPIRIN 81 MG CHEWABLE TABLET PO (08:08)
[2022-12-01] MEDS: LATANOPROST 0.005% OP SOLN 2.5 ML BTL 1 DROP EACH EYE (08:09)
[2022-12-01] MEDS: ROFLUMILAST 500 MCG TABLET PO (08:10)
--- NOTE | 2022-12-01 13:04 | PM.IMPN ---
Progress Note: A&P Assessment and Plan (1) Acute and chronic respiratory failure with hypoxia: Code(s): J96.21 - Acute and chronic respiratory failure with hypoxia Status: Acute Assessment and Plan: Likely related to COPD exacerbation, possible underlying pneumonia -patient presented with dyspnea, cough productive with yellow sputum 11/20 chest CTA No evidence of pulmonary embolus, aortic dissection, or aortic aneurysm. Chronic complete right upper lobe collapse, as seen on prior exam. Minimal emphysema. 11/25 CT chest - ?Subsegmental consolidation in the right lung base, with volume loss. Minimal left basilar atelectasis. Persistent right upper lobe collapse. Endobronchial devices in right upper lobe bronchi. 11/26 -extubated. Doing well on nasal cannula -refusing to wear BiPAP. BiPAP is ordered p.r.n. at night. -wean systemic steroids -continue bronchodilators, -he was started vancomycin(11/19) and cefepime (11/21) - completed azithromycin - ceftriaxone discontinued on 11/21 -discontinue vancomycin 11/26. Continue cefepime for 10 day course - continue Daliresp 11/29: Patient still has fever, leukocytosis. Blood culture so far no gross. Concerned about hospital-acquired pneumonia, recent extubated. switch to vancomycin and Zosyn IV, Follow-up CBC, leukocytosis is improving Follow-up procalcitonin Consult book author for evaluation (2) Fever: Code(s): R50.9 - Fever, unspecified Status: Acute Assessment and Plan: 11/25 Patient febrile overnight and tachycardic this morning 1 L NS bolus Repeat cultures sent no growth so far UA unremarkable. Elias change Low procalcitonin level Normal lactic acid level Normal lipase Repeat CT chest abdomen pelvis Limited exam, as noted above. Appropriately positioned endotracheal tube, right upper extremity PICC, and NG tube. Subsegmental right basilar atelectasis/consolidation. Small right pleural effusion. No acute process detected in the abdomen/pelvis. Antibiotics as above 11/29: Has fever, leukocytosis. Currently patient is on cefepime. Changed to vanco and Zosyn, blood cultures no growth so far (3) Pneumonia: Code(s): J18.9 - Pneumonia, unspecified organism Status: Acute Assessment and Plan: Concerned about hospital-acquired pneumonia Switched to vancomycin Zosyn IV, stop cefepime 11/29 Worsening atelectasis of the right lung, consult book author for evaluation and the treatment (4) Acute exacerbation of chronic obstructive pulmonary disease: Code(s): J44.1 - Chronic obstructive pulmonary disease with (acute) exacerbation Status: Acute Assessment and Plan: Continue off ventilation, steroids, bronchodilators and antibiotics Patient still has leukocytosis, fever, x-ray shows small pleural effusion, atelectasis in her lung, worse in right upper lobe Consult book author for evaluation and treatment (5) Chest pain: Code(s): R07.9 - Chest pain, unspecified Status: Acute Assessment and Plan: 11/20/2022 chest CTA: No evidence of pulmonary embolism, aortic dissection or aortic aneurysm. Chronic complete right upper lobe collapse as seen on prior exam, minimal emphysema -troponin negative on presentation -patient does have a history of chronic pain syndrome, -the pain is pleuritic or musculoskeletal in nature. CT chest as above -continue p.r.n. of chest (6) Chronic deep vein thrombosis (DVT): Qualifiers: DVT location: lower extremity Affected thrombotic vein of extremity: unspecified vein of extremity Laterality: unspecified laterality Qualified Code(s): I82.509 - Chronic embolism and thrombosis of unspecified deep veins of unspecified lower extremity Code(s): I82.509 - Chronic embolism and thrombosis of unspecified deep veins of unspecified lower extremity Status: Acute Assessment and Plan: History of chronic DVTs - 11/22 Bilateral lower extremity venous Doppler
[2022-12-01] MEDS: LIDOCAINE 5% PATCH 1 PATCH TRANSDERM (17:43)
[2022-12-01] MEDS: ALPRAZolam (*CRX) 0.5 MG TABLET PO (21:09)
[2022-12-01] MEDS: SENNA/DOCUSATE SODIUM TABLET 1 TAB PO (21:10)
[2022-12-02] VITALS (18 sets, daily range): BP systolic 106–117; BP diastolic 62–84; PULSE 103–135; RESP 18–40; TEMP 36.3–36.8; O2SAT 94–100
--- NOTE | 2022-12-02 02:00 | ECG_ITS ---
Measurements Intervals [place] Rate: 132 P: DE: 0 QRS: 30 QRSD: 85 T: 70 QT: 335 QTc: 497 Interpretive Statements SINUS TACHYCARDIA WITH FREQUENT PREMATURE ATRIAL CONTRACTIONS BORDERLINE ECG COMPARED TO ECG 11/28/2022 11:26:51 HEART RATE HAS INCREASED AND PREMATURE ATRIAL CONTRACTIONS ARE NOW NOTED Electronically Signed On 12-02-2022 14:47:03 FENCE GATE ASSEMBLER by Jitendra Stewart M.D.
[2022-12-02 02:05] LABS: Base Excess ABG 6.5 mEq/l (+/-2.0); Carboxyhemoglobin 0.6 % THb (0-2.0); Fractional Inspired Oxygen 32 %; HCO3 ABG 31.4 mEq/l (22.0-26.0); Methemoglobin ABG 0.3 %THb (0-1.5); Oxygen Content ABG 18.5 %vol (16.0-22.0); Oxygen Saturation ABG 99.3 % (95.0-100.0); Oxyhemoglobin 97.6 % THb (90.0-100.0); PCO2 ABG 45.9 mmHg (35.0-45.0); PO2 ABG 188.4 mmHg (80.0-100.0); PO2 FiO2 Ratio Arterial Blood 5.89 %; Reduced Hemoglobin 1.5 %THb (0-5.0); Total Hemoglobin 13.2 g/dL (12.0-18.0); pH ABG 7.453 (7.350-7.450)
[2022-12-02 02:07] LABS: Modified Allen's Test Pass; Site Drawn LEFT RADIAL
[2022-12-02 02:08] LABS: Device NASAL CANNULA
[2022-12-02] MEDS: HYDROcodone/acetaminophen (*CRX) 5-325 MG TABLET 1 TAB PO ×3 (02:29→20:05)
[2022-12-02] MEDS: IPRATROPIUM BR 0.02% INH SOLN 0.5 MG/2.5 ML VIAL 2 MG INHALATION (02:53)
--- NOTE | 2022-12-02 03:09 | P.PNCROSS_ITS ---
Event Note Event Note Event Note: Respiratory therapy called man the patient was having respiratory distress. Tu rns out the patient had received is Xanax and had fallen asleep. No one went in to place patient on his AVAPS. 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 He had accessory muscle use. He was not really more hypoxic than usual. He received a nebulizer treatment with some improvement in his symptoms. The patient reports he feels like he has phlegm stuck in the back of his throat and cannot cough it up. I ordered stat chest x- ray which demonstrated stable appearance of not improved appearance. Nursing staff told me that the reason the given and Xanax was because of tachycardia. Patient was not on telemetry and had not had any kg in the last couple of days. His heart rate has been around 130 prior to falling asleep. When he fell asleep is heart rate was back down to the low 100s. When he woke up in distress he was back in the 130s. EKG was performed and the machine read the EKG as AFib but I believe the patient does have some P waves. In the telemetry monitors more consistent with sinus rhythm. Stat ABG was performed which was unremarkable except for elevated PO2 but ABG was obtained while patient was on nebulizer treatment. I ordered PIP therapy to help the patient to clear his secretions. I also ordered an hour long nebulizer with Xopenex and Atrovent. The patient's symptoms and management were discussed with the patient and his family member at bedside with patient's permission. The patient and I agree that his symptoms were most likely from him falling asleep without his trilogy. 30 minute spent in critical care activities Due to a high probability of clinically significant, life threatening deterioration, the patient required my highest level of preparedness to intervene emergently and I personally spent this critical care time directly and personally managing the patient. This critical care time included obtaining a history; examining the patient; pulse oximetry; ordering and review of studies; arranging urgent treatment with development of a management plan; evaluation of patient's response to treatment; frequent reassessment; and discussions with other providers. It was exclusive of separately billable procedures and treating other patients and teaching time. Please see Assessment and Plan section and the rest of the note for further information on patient assessment and treatment.
[2022-12-02] MEDS: CENTRAL LINE FLUSH 10 ML IV PUSH ×3 (06:26→23:33)
[2022-12-02 06:28] LABS: Hematocrit 31.7 % (42.0-52.0); Hemoglobin 10.1 g/dL (14.0-18.0); Mean Corpuscular HGB Conc 31.9 g/dl (32-36); Mean Corpuscular Hemoglobin 29.4 pg (26-34); Mean Corpuscular Volume 92.4 fl (80-100); Mean Platelet Volume 10.4 fl (7.4-10.4); Platelet Count Result 254 k/mm3 (150-375); Red Blood Count 3.43 M/mm3 (4.6-6.20); Red Cell Distribution Width 14.6 % (11.5-14.5); White Blood Count 16.4 K/mm3 (4.5-10.0)
[2022-12-02 06:39] LABS: Anion Gap 2 mmol/L (8-16); Blood Urea Nitrogen 16 mg/dL (9-20); Calcium 8.3 mg/dL (8.4-10.2); Carbon Dioxide 33 mmol/L (22-30); Chloride 99 mmol/L (98-107); Estimated CRCL calculation 48 ml/min; Estimated Glomerular Filt Rate 50; Glucose 110 mg/dL (65-110); Potassium 3.3 mmol/L (3.4-5.0); Sodium 134 mmol/L (137-145)
[2022-12-02 06:45] LABS: Vancomycin Trough 24.4 ug/mL (10.0-20.0)
[2022-12-02] MEDS: LIDOCAINE 5% PATCH 1 PATCH TRANSDERM (09:05)
[2022-12-02] MEDS: ENOXAPARIN 40 MG/0.4 ML SYRINGE SUB-Q (09:06)
[2022-12-02] MEDS: ASPIRIN 81 MG CHEWABLE TABLET PO (09:06)
[2022-12-02] MEDS: PANTOPRAZOLE SODIUM IV 40 MG VIAL IV PUSH (09:06)
[2022-12-02] MEDS: ROFLUMILAST 500 MCG TABLET PO (09:06)
[2022-12-02] MEDS: LATANOPROST 0.005% OP SOLN 2.5 ML BTL 1 DROP EACH EYE (09:06)
[2022-12-02] MEDS: FLUTICASONE PROPIONATE 0.05% NA SPR 16 GM BTL (*BKC) 1 SPRAY NASAL (09:06)
[2022-12-02] MEDS: polyethylene glycoL 3350 17 GM POWD.PACK PO (09:06)
[2022-12-02] MEDS: IPRATROPIUM BR 0.02% INH SOLN 0.5 MG/2.5 ML VIAL INHALATION ×3 (10:39→21:30)
[2022-12-02] MEDS: DORNASE ALFA INH SOLN 1 MG/ML 2.5 ML AMP 2.5 MG INHALATION ×2 (10:39→21:45)
[2022-12-02] MEDS: BUDESONIDE RESPULE NEB 0.5 MG/2 ML AMP INHALATION ×2 (10:39→21:25)
[2022-12-02] MEDS: LEVALBUTEROL NEB 1.25 MG/3 ML 0.63 MG INHALATION ×2 (10:40→14:38)
--- NOTE | 2022-12-02 14:32 | PCPTNOTE ---
Per the RN, the pt has a respiratory rate of 50 and to hold on PT services for today and check back tomorrow. Will continue per PT plan of care.
[2022-12-02] MEDS: ALPRAZolam (*CRX) 0.5 MG TABLET PO ×2 (15:24→20:11)
--- NOTE | 2022-12-02 15:48 | PM.IMPN ---
Progress Note: A&P Assessment and Plan (1) Acute and chronic respiratory failure with hypoxia: Code(s): J96.21 - Acute and chronic respiratory failure with hypoxia Status: Acute Assessment and Plan: Likely related to COPD exacerbation, possible underlying pneumonia -patient presented with dyspnea, cough productive with yellow sputum 11/20 chest CTA No evidence of pulmonary embolus, aortic dissection, or aortic aneurysm. Chronic complete right upper lobe collapse, as seen on prior exam. Minimal emphysema. 11/25 CT chest - ?Subsegmental consolidation in the right lung base, with volume loss. Minimal left basilar atelectasis. Persistent right upper lobe collapse. Endobronchial devices in right upper lobe bronchi. 11/26 -extubated. Doing well on nasal cannula -refusing to wear BiPAP. BiPAP is ordered p.r.n. at night. -wean systemic steroids -continue bronchodilators, -he was started vancomycin(11/19) and cefepime (11/21) - completed azithromycin - ceftriaxone discontinued on 11/21 -discontinue vancomycin 11/26. Continue cefepime for 10 day course - continue Daliresp 11/29: Patient still has fever, leukocytosis. Blood culture so far no gross. Concerned about hospital-acquired pneumonia, recent extubated. switch to vancomycin and Zosyn IV, Follow-up CBC, leukocytosis is improving Follow-up procalcitonin Consult line service technician for evaluation. pt has worsening short of breath today, aspirating the night shows worsening right lower lobe of consultation. Patient may benefit from bronchoscopy evaluation and treatment. Management per line service technician (2) Fever: Code(s): R50.9 - Fever, unspecified Status: Acute Assessment and Plan: 11/25 Patient febrile overnight and tachycardic this morning 1 L NS bolus Repeat cultures sent no growth so far UA unremarkable. Elias change Low procalcitonin level Normal lactic acid level Normal lipase Repeat CT chest abdomen pelvis Limited exam, as noted above. Appropriately positioned endotracheal tube, right upper extremity PICC, and NG tube. Subsegmental right basilar atelectasis/consolidation. Small right pleural effusion. No acute process detected in the abdomen/pelvis. Antibiotics as above 11/29: Has fever, leukocytosis. Currently patient was on cefepime. Changed to vanco and Zosyn on 11/29, blood cultures no growth so far (3) Pneumonia: Code(s): J18.9 - Pneumonia, unspecified organism Status: Acute Assessment and Plan: Concerned about hospital-acquired pneumonia Switched to vancomycin Zosyn IV, stop cefepime 11/29 Worsening atelectasis of the right lung, consult line service technician for evaluation and the treatment (4) Acute exacerbation of chronic obstructive pulmonary disease: Code(s): J44.1 - Chronic obstructive pulmonary disease with (acute) exacerbation Status: Acute Assessment and Plan: Continue off ventilation, steroids, bronchodilators and antibiotics Patient still has leukocytosis, fever, x-ray shows small pleural effusion, atelectasis in her lung, worse in right upper lobe Consult line service technician for evaluation and treatment (5) Chest pain: Code(s): R07.9 - Chest pain, unspecified Status: Acute Assessment and Plan: 11/20/2022 chest CTA: No evidence of pulmonary embolism, aortic dissection or aortic aneurysm. Chronic complete right upper lobe collapse as seen on prior exam, minimal emphysema -troponin negative on presentation -patient does have a history of chronic pain syndrome, -the pain is pleuritic or musculoskeletal in nature. CT chest as above -continue p.r.n. of chest (6) Chronic deep vein thrombosis (DVT): Qualifiers: DVT location: lower extremity Affected thrombotic vein of extremity: unspecified vein of extremity Laterality: unspecified laterality Qualified Code(s): I82.509 - Chronic embolism and thrombosis of unspecified deep veins of unspecified lower extremity Code(s): I82.50
[2022-12-02] MEDS: methylPREDNISolone SOD SUCC 125 MG VIAL 80 MG IV PUSH (17:44)
[2022-12-03] VITALS (20 sets, daily range): BP systolic 89–122; BP diastolic 70–80; PULSE 91–115; RESP 20–23; TEMP 36.4–36.6; O2SAT 94–100
[2022-12-03] MEDS: IPRATROPIUM BR 0.02% INH SOLN 0.5 MG/2.5 ML VIAL INHALATION ×4 (02:35→20:48)
[2022-12-03] MEDS: LEVALBUTEROL NEB 1.25 MG/3 ML 0.63 MG INHALATION (05:15)
[2022-12-03] MEDS: CENTRAL LINE FLUSH 10 ML IV PUSH ×3 (06:01→21:24)
[2022-12-03 06:31] LABS: Estimated CRCL calculation 32 ml/min; Estimated Glomerular Filt Rate 30
[2022-12-03] MEDS: BUDESONIDE RESPULE NEB 0.5 MG/2 ML AMP INHALATION ×2 (07:13→20:48)
[2022-12-03] MEDS: DORNASE ALFA INH SOLN 1 MG/ML 2.5 ML AMP 2.5 MG INHALATION ×2 (07:25→20:48)
[2022-12-03 08:23] LABS: Vancomycin Trough 24.1 ug/mL (10.0-20.0)
[2022-12-03] MEDS: LATANOPROST 0.005% OP SOLN 2.5 ML BTL 1 DROP EACH EYE (09:10)
[2022-12-03] MEDS: ROFLUMILAST 500 MCG TABLET PO (09:10)
[2022-12-03] MEDS: PANTOPRAZOLE SODIUM IV 40 MG VIAL IV PUSH (09:10)
[2022-12-03] MEDS: ASPIRIN 81 MG CHEWABLE TABLET PO (09:10)
[2022-12-03] MEDS: ENOXAPARIN 40 MG/0.4 ML SYRINGE SUB-Q (09:10)
[2022-12-03] MEDS: FLUTICASONE PROPIONATE 0.05% NA SPR 16 GM BTL (*BKC) 1 SPRAY NASAL (09:11)
[2022-12-03] MEDS: HYDROcodone/acetaminophen (*CRX) 5-325 MG TABLET 1 TAB PO ×2 (09:11→20:34)
[2022-12-03] MEDS: LIDOCAINE 5% PATCH 1 PATCH TRANSDERM (09:12)
--- NOTE | 2022-12-03 14:20 | ECG_ITS ---
Measurements Intervals [place] Rate: 110 P: 0 ND: 107 QRS: 55 QRSD: 85 T: 79 QT: 329 QTc: 445 Interpretive Statements SINUS TACHYCARDIA WITH SHORT ND INTERVAL WITH OCCASIONAL VENTRICULAR PREMATURE COMPLEXES ABNORMAL ECG COMPARED TO ECG 12/02/2022 02:20:22 NO SIGNIFICANT CHANGES Electronically Signed On 12-04-2022 14:07:26 CLINICAL QUALITY RN by Dre Graham M.D.
--- NOTE | 2022-12-03 14:20 | PM.IMPN ---
Progress Note: A&P Assessment and Plan (1) Acute and chronic respiratory failure with hypoxia: Code(s): J96.21 - Acute and chronic respiratory failure with hypoxia Status: Acute Assessment and Plan: Likely related to COPD exacerbation, possible underlying pneumonia -patient presented with dyspnea, cough productive with yellow sputum 11/20 chest CTA No evidence of pulmonary embolus, aortic dissection, or aortic aneurysm. Chronic complete right upper lobe collapse, as seen on prior exam. Minimal emphysema. 11/25 CT chest - ?Subsegmental consolidation in the right lung base, with volume loss. Minimal left basilar atelectasis. Persistent right upper lobe collapse. Endobronchial devices in right upper lobe bronchi. 11/26 -extubated. Doing well on nasal cannula -refusing to wear BiPAP. BiPAP is ordered p.r.n. at night. -wean systemic steroids -continue bronchodilators, -he was started vancomycin(11/19) and cefepime (11/21) - completed azithromycin - ceftriaxone discontinued on 11/21 -discontinue vancomycin 11/26. Continue cefepime for 10 day course - continue Daliresp 11/29: Patient still has fever, leukocytosis. Blood culture so far no gross. Concerned about hospital-acquired pneumonia, recent extubated. switch to vancomycin and Zosyn IV, 12/03 Zosyn switched to LEvaquin adn Flagyl, continue Vanc Follow-up CBC, leukocytosis is improving Follow-up procalcitonin CXR on 12/02 showed worsening right lower lobe infiltrates Pulmonology on board monitor (2) Fever: Code(s): R50.9 - Fever, unspecified Status: Acute Assessment and Plan: 11/25 Patient febrile overnight and tachycardic this morning 1 L NS bolus Repeat cultures sent no growth so far UA unremarkable. Elias change Low procalcitonin level Normal lactic acid level Normal lipase Repeat CT chest abdomen pelvis Limited exam, as noted above. Appropriately positioned endotracheal tube, right upper extremity PICC, and NG tube. Subsegmental right basilar atelectasis/consolidation. Small right pleural effusion. No acute process detected in the abdomen/pelvis. Antibiotics as above 11/29: Has fever, leukocytosis. Currently patient was on cefepime. Changed to vanco and Zosyn on 11/29, blood cultures no growth so far (3) Pneumonia: Code(s): J18.9 - Pneumonia, unspecified organism Status: Acute Assessment and Plan: Concerned about hospital-acquired pneumonia Switched to vancomycin Zosyn IV, stop cefepime 11/29 Worsening atelectasis of the right lung, consult tobacco scrap sifter for evaluation and the treatment (4) Acute exacerbation of chronic obstructive pulmonary disease: Code(s): J44.1 - Chronic obstructive pulmonary disease with (acute) exacerbation Status: Acute Assessment and Plan: Continue off ventilation, steroids, bronchodilators and antibiotics Patient still has leukocytosis, fever, x-ray shows small pleural effusion, atelectasis in her lung, worse in right upper lobe Consult tobacco scrap sifter for evaluation and treatment (5) Chest pain: Code(s): R07.9 - Chest pain, unspecified Status: Acute Assessment and Plan: 11/20/2022 chest CTA: No evidence of pulmonary embolism, aortic dissection or aortic aneurysm. Chronic complete right upper lobe collapse as seen on prior exam, minimal emphysema -troponin negative on presentation -patient does have a history of chronic pain syndrome, -the pain is pleuritic or musculoskeletal in nature. CT chest as above -continue p.r.n. of chest (6) Chronic deep vein thrombosis (DVT): Qualifiers: Affected thrombotic vein of extremity: unspecified vein of extremity DVT location: lower extremity Laterality: unspecified laterality Qualified Code(s): I82.509 - Chronic embolism and thrombosis of unspecified deep veins of unspecified lower extremity Code(s): I82.509 - Chronic embolism and thrombosis of unspecified deep veins of unspecified lower extremity
--- NOTE | 2022-12-03 15:17 | PM.CNNEP ---
Assessment and Plan Assessment and plan (1) RAÚL (acute kidney injury): Code(s): N17.9 - Acute kidney failure, unspecified Status: Acute Assessment and Plan: etiology? prerenal factors? medication related? due to acute infection (ATN)? other? no critical electrolytes still making urine check renal ultrasound, urine electrolytes, urine eosinophils and CPK follow trend of repeat labs (2) Acute and chronic respiratory failure with hypoxia: Code(s): J96.21 - Acute and chronic respiratory failure with hypoxia Status: Acute Assessment and Plan: due to COPD and possible pneumonia on antibiotics on nebulizer, inhalers, and steroids Pulmonary following (3) Pneumonia: Code(s): J18.9 - Pneumonia, unspecified organism Status: Acute Assessment and Plan: follow culture data on antibiotics (4) Acute exacerbation of chronic obstructive airways disease: Code(s): J44.1 - Chronic obstructive pulmonary disease with (acute) exacerbation Status: Acute Assessment and Plan: cause of #2 or secondary to #2 continue supportive therapy Will continue to follow. History of Present Illness Reason for Consult Consult date: 12/03/22 Reason for consult: acute renal failure Chief Complaint Chief complaint: COPD, Tachycardia History of Present Illness Narrative: The patient is a 62-year-old male with a past medical history as outlined below who presented to [facility] Room with complaints of persistent cough in association with shortness of breath for last 3 or 4 days. The patient has known COPD/chronic hypoxic respiratory failure on supplemental oxygen. He reports in the last 3 or 4 days, he has had a increasing cough in association with sputum production of thick yellow content. On his arrival to the emergency room, due to his moderate respiratory distress, he was placed on BiPAP therapy which seems to have helped with regard to his respiratory status. Further evaluation emergency room demonstrated an ABG with the pH is 7.29, pCO2 of 52 and a PO2 of 140. After appropriate cultures were obtained, he was started on broad-spectrum IV antibiotic therapy and admitted to the hospital. Unfortunately, his hospital course complicated by worsening respiratory failure that required intubation and placement on mechanical ventilation on 11/20/22 with subsequent extubation on 11/26/2022. His respiratory status still remains somewhat tenuous but unfortunately, labs done in the last 24-48 hours show a rising creatinine. Renal consultation was requested due to his acute kidney injury/acute renal failure. As noted, on admission, his kidney function was well within normal limits but then on 12/02/2022 his creatinine osorio up to 1.7 mg/dL with a subsequent reading this morning at 2.6 mg/dL. In spite of the acute insult to his kidneys, he has no critical electrolyte abnormalities and his volume status appears to be relatively stable and more importantly, he continues to make reasonable urine output. Initially, it was felt his IV antibiotics, specifically his IV Zosyn and IV vancomycin, may be partly to blame for this phenomenon and hence his antibiotics have since been adjusted. No recent contrast exposure that I can see although he has had on off fevers since his admission with the presumption that pneumonia was the cause of this. He reports his appetite has been fair but admits that he probably does not eat as much as he normally does because of his current situation. Currently, at the time my evaluation, he does not appear to be any acute distress. Review of Systems Review of Systems: As per HPI. [facility] Past Medical History Medical History (Updated 12/03/22 @ 14:55 by Gary Carter MD) BPH (benign prostatic hyperplasia) Chronic deep vein thrombosis (DVT) Linear echogenic filling defect in the right femoral vein, likely chronic
[2022-12-03] MEDS: metroNIDAZOLE 500 MG/ISO 100ML 500 MG/100 ML BAG 100 MG IVPB ×2 (16:49→21:24)
[2022-12-03] MEDS: ALPRAZolam (*CRX) 0.5 MG TABLET PO (18:51)
--- NOTE | 2022-12-03 19:50 | PM.PNPUL ---
Progress Note: A&P Assessment and Plan (1) Acute exacerbation of chronic obstructive airways disease: Code(s): J44.1 - Chronic obstructive pulmonary disease with (acute) exacerbation Status: Acute Assessment and Plan: GOLD grade 3 group E COPD. 62-year-old man with a history of severe COPD (quit tobacco 02/2019) with an FEV1 of 0.74 L, 30% predicted on 02/14/2019, status post RUL endobronchial valve, on 3 L home O2 and noninvasive ventilator at night (through IV respiratory care) was admitted with increased shortness of breath, cough, increased congestion, expiratory wheezes, leukocytosis, CTA without PE; He developed pneumonia, was intubated until 11/26, now completed Cefepime. Improved symptoms. (2) Acute and chronic respiratory failure with hypoxia: Code(s): J96.21 - Acute and chronic respiratory failure with hypoxia Status: Acute Assessment and Plan: Patient is home a on a home noninvasive ventilator with the AVAPS-Ae mode, and his brought his from home. 11/21 Download from 08/20/2022 through 10/26/2022. [facility] Patient is on AVAPS-AE mode. Breath rate is auto, tidal volume 500, EPAP minimum 5, EPAP maximum 14, pressure support minimum 5, pressure support maximum 22, the ramp is off. % days used 88.2. % days used for 4 more hours 86.8%. Average tidal volume 420, average breath 17.6, average minute ventilation 8.8, average IPAP 16.2, average EPAP 7.1. average total leak is 79 liters/minute. I interpret this download as very good compliance, adequate pressures and high leak. 11/30 He can use his own Trilogy from home. He used it last night, slept well. 12/03 Continue to use Trilogy and pulmonary hygiene measures including Cornet valve, vest, Pulmozyme. 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 Plan He had tachycardia today, blood pressure was too low for more beta ronak. He had a Xanax, resting, overall feels better. Still has frequent back pain that is musculoskeletal, wraps around chest to the front. 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 He can have an O2 evaluation before discharge. Use is wearing his own Trilogy machine, AVAPS AE mode. He has a number of environmental allergies, may benefit from sending to an film rental clerk; his breathing is impacted by weather, seasonal changes. Agree with completing the antibiotics. He is using Dornase orion, Cornet vibratory valve and vibratory vest TID to help clear secretions. He has diaphragm dysfunction and is a candidate for a vibratory vest at home to help clear secretions. Subjective Date/time seen: 12/03/22 19:50 Interval history: Hospital follow up?:? He is seen in follow [facility] Nov 30, has been moved to Room 303. He was extubated Nov 26, now on nasal cannula 2 L/min O2, was on O2 at 3 L/min at home before admission, has advanced COPD with a Cleveland valve placed 2 years ago by [facility] at [facility]. He was extubated 11/26, had a fever, had antibiotics changed, off Cefepime, now on Zosyn and Vanco. His sputum is thick, discolored, easier to expectorate. HISTORY: 61-year-old man with a history of severe COPD (quit tobacco 02/2019) with an FEV1 of 0.74 L, 30% predicted on 02/14/2019, status post RUL endobronchial valve, on 3 L home O2 and noninvasive ventilator at night.? Patient is followed in the Pulmonary Clinic in last seen on 08/30/2022 and he improved and was down to prednisone 5 mg every other day, and azithromycin 3 times a week, was off Daliresp and he was exercising.? The plan was to taper him off of prednisone over the next few weeks. Patient presented to th
--- NOTE | 2022-12-03 20:01 | PC.NURSE ---
Pt sepsis bullseye appeared on the screen. Attempted to jake notified provider, but inadvertently removed from profile. Dr. Childers notified. Raul and April already aware and med changes have been made. Will continue to monitor.
[2022-12-03] MEDS: SACCHAROMYCES BOULARDII 250 MG CAPSULE PO (23:36)
[2022-12-04] VITALS (23 sets, daily range): BP systolic 96–115; BP diastolic 65–71; PULSE 89–124; RESP 16–20; TEMP 36.1–36.4; O2SAT 95–100
[2022-12-04 01:39] LABS: Arterial Blood Gas PEEP 5 cmH2O; Arterial Blood Gas Pressure Support 5 cmH2O; Arterial Blood Gas Vent Mode SPONTANEOUS
[2022-12-04] MEDS: IPRATROPIUM BR 0.02% INH SOLN 0.5 MG/2.5 ML VIAL INHALATION ×4 (03:16→19:41)
[2022-12-04] MEDS: metroNIDAZOLE 500 MG/ISO 100ML 500 MG/100 ML BAG 100 MG IVPB ×3 (05:24→21:02)
[2022-12-04] MEDS: ALPRAZolam (*CRX) 0.5 MG TABLET PO ×2 (05:24→21:08)
[2022-12-04 05:26] LABS: Creatinine Urine 127.7 mg/dL; Total Protein Urine Random 74 mg/dL; Ur Ttl Prot Creatinine Ratio 0.58 mg/mg (0-0.20); Urea Random Urine 406 MG/DL
[2022-12-04] MEDS: CENTRAL LINE FLUSH 10 ML IV PUSH ×3 (05:27→21:01)
[2022-12-04 05:32] LABS: Sodium Urine Random 33 meq/L
[2022-12-04 05:56] LABS: Eosinophil Urine None Seen % (None Seen)
[2022-12-04 06:10] LABS: Basophils Absolute Auto 0.1 K/mm3 (0.0-0.1); Basophils Percent Auto 0.5 % (0.2-1.2); Eosinophils Absolute Auto 0.1 K/mm3 (0-0.3); Eosinophils Percent Auto 0.8 % (0-4.4); Hemoglobin 9.1 g/dL (14.0-18.0); Immature Granulocyte Absolute 0.06 K/mm3 (0.00-0.031); Immature Granulocyte Percent A 0.5 % (0-0.5); Lymphocytes Absolute Auto 0.94 K/mm3 (0.9-3.2); Lymphocytes Percent Auto 8.5 % (18.3-44.2); Mean Corpuscular HGB Conc 31.4 g/dl (32-36); Mean Corpuscular Hemoglobin 29.8 pg (26-34); Mean Corpuscular Volume 95.1 fl (80-100); Mean Platelet Volume 10.5 fl (7.4-10.4); Monocytes Absolute Auto 0.9 K/mm3 (0.1-0.6); Monocytes Percent Auto 8.1 % (2.6-8.5); Neutrophils Percent Auto 81.6 % (45.5-73.1); Platelet Count Result 240 k/mm3 (150-375); Red Blood Count 3.05 M/mm3 (4.6-6.20); Red Cell Distribution Width 14.7 % (11.5-14.5); White Blood Count 11.1 K/mm3 (4.5-10.0)
[2022-12-04 06:22] LABS: Urine Eos QC 2nd Tech Confirmed
[2022-12-04 06:23] LABS: Lactic Acid Reflex 0.7 mmol/L (0.7-2.0)
[2022-12-04 06:32] LABS: Alanine Aminotransferase 93 U/L (6-50); Albumin Level 3.3 g/dL (3.5-5.1); Alkaline Phosphatase 72 U/L (38-126); Anion Gap 6 mmol/L (8-16); Aspartate Amino Transferase 41 U/L (17-59); Bilirubin,Total 0.5 mg/dL (0.2-1.3); Blood Urea Nitrogen 26 mg/dL (9-20); Calcium 8.1 mg/dL (8.4-10.2); Carbon Dioxide 31 mmol/L (22-30); Chloride 103 mmol/L (98-107); Creatine Kinase < 20 U/L (55-170); Estimated CRCL calculation 23 ml/min; Estimated Glomerular Filt Rate 21; Glucose 89 mg/dL (65-110); Potassium 3.3 mmol/L (3.4-5.0); Sodium 140 mmol/L (137-145)
[2022-12-04] MEDS: FLUTICASONE PROPIONATE 0.05% NA SPR 16 GM BTL (*BKC) 1 SPRAY NASAL (09:26)
[2022-12-04] MEDS: SACCHAROMYCES BOULARDII 250 MG CAPSULE PO ×3 (09:26→17:22)
[2022-12-04] MEDS: ENOXAPARIN 40 MG/0.4 ML SYRINGE SUB-Q (09:26)
[2022-12-04] MEDS: LATANOPROST 0.005% OP SOLN 2.5 ML BTL 1 DROP EACH EYE (09:26)
[2022-12-04] MEDS: PANTOPRAZOLE SODIUM IV 40 MG VIAL IV PUSH (09:26)
[2022-12-04] MEDS: LIDOCAINE 5% PATCH 1 PATCH TRANSDERM (09:26)
[2022-12-04] MEDS: ASPIRIN 81 MG CHEWABLE TABLET PO (09:27)
[2022-12-04] MEDS: ROFLUMILAST 500 MCG TABLET PO (09:27)
[2022-12-04] MEDS: BUDESONIDE RESPULE NEB 0.5 MG/2 ML AMP INHALATION ×2 (10:11→19:41)
[2022-12-04] MEDS: DORNASE ALFA INH SOLN 1 MG/ML 2.5 ML AMP 2.5 MG INHALATION ×2 (10:11→19:41)
--- NOTE | 2022-12-04 11:05 | P.PNNP_ITS ---
Progress Note: A&P Assessment and Plan (1) RAÚL (acute kidney injury): Code(s): N17.9 - Acute kidney failure, unspecified Status: Acute Assessment and Plan: * etiology? * prerenal factors * medication related (possible AIN) * due to acute infection (ATN)? * other? * evaluation to date: * renal ultrasound with obstruction * urine electrolytes prerenal * urine eosinophils negative * CPK low * no critical electrolytes and still making urine * check renal ultrasound, urine electrolytes, urine eosinophils and CPK * follow trend of repeat labs (2) Acute and chronic respiratory failure with hypoxia: Code(s): J96.21 - Acute and chronic respiratory failure with hypoxia Status: Acute Assessment and Plan: * due to COPD and possible pneumonia * on antibiotics * on nebulizer, inhalers, and steroids * Pulmonary following (3) Pneumonia: Code(s): J18.9 - Pneumonia, unspecified organism Status: Acute Assessment and Plan: * follow culture data * on antibiotics (4) Acute exacerbation of chronic obstructive airways disease: Code(s): J44.1 - Chronic obstructive pulmonary disease with (acute) exacerbation Status: Acute Assessment and Plan: * cause of #2 or secondary to #2 * continue supportive therapy Will continue to follow. Subjective Date/time seen: 12/04/22 11:05 Respiratory status seems stable if not better on my visit; renal function continues to deteriorate but is still making reasonable urine output and has relative stability in electrolytes; no apparent distress noted. Exam Narrative: General: WD/WN AA male in NAD Lungs: coarse with a few crackles at the bases Abdomen: soft, nontender, nondistended, positive bowel sounds Extremities: no cyanosis or clubbing; trace edema Skin: warm and dry Objective Data Vital Signs Vital Signs: Vital Signs Temp Pulse Resp BP Pulse Ox O2 Del Method O2 Flow Rate 12/04/22 10:27 108 H 18 12/04/22 10:18 101 H 20 97 Nasal Cannula 3 12/04/22 10:11 101 H 20 12/04/22 04:43 97.6 F 94 20 112/65 100 12/04/22 04:00 101 H 12/04/22 03:38 102 H 96 12/04/22 03:31 105 H 20 12/04/22 03:16 101 H 20 12/04/22 00:00 106 H 12/03/22 23:25 109 H 96 12/03/22 20:00 115 H 12/03/22 21:14 96 Nasal Cannula 3 12/03/22 21:14 113 H 20 12/03/22 20:57 109 H 20 12/03/22 20:00 94 Nasal Cannula 3 12/03/22 20:02 98 F 102 H 20 101/73 100 12/03/22 16:00 102 H 12/03/22 14:59 100 22 H 12/03/22 14:00 97.6 F 103 H 21 H 122/73 100 Intake/Output Intake/Output: Intake & Output 12/01/22 12/02/22 12/03/22 12/04/22 23:59 23:59 23:59 23:59 Intake Total 1560 2301 2498 50 Output Total 1000 1100 1300 500 Balance 560 1201 1198 -450 Meds/Results Medications: Active Medications Generic Name Dose Route Start Last Admin Trade Name Freq PRN Reason Stop Dose Admin Acetaminophen 650 mg 11/28/22 21:05 11/28/22 21:22 Acetaminophen 325 Mg Tablet PO 650
--- NOTE | 2022-12-04 11:05 | PM.PNNEP ---
Progress Note: A&P Assessment and Plan (1) RAÚL (acute kidney injury): Code(s): N17.9 - Acute kidney failure, unspecified Status: Acute Assessment and Plan: etiology? prerenal factors medication related (possible AIN) due to acute infection (ATN)? other? evaluation to date: renal ultrasound with obstruction urine electrolytes prerenal urine eosinophils negative CPK low no critical electrolytes and still making urine check renal ultrasound, urine electrolytes, urine eosinophils and CPK follow trend of repeat labs (2) Acute and chronic respiratory failure with hypoxia: Code(s): J96.21 - Acute and chronic respiratory failure with hypoxia Status: Acute Assessment and Plan: due to COPD and possible pneumonia on antibiotics on nebulizer, inhalers, and steroids Pulmonary following (3) Pneumonia: Code(s): J18.9 - Pneumonia, unspecified organism Status: Acute Assessment and Plan: follow culture data on antibiotics (4) Acute exacerbation of chronic obstructive airways disease: Code(s): J44.1 - Chronic obstructive pulmonary disease with (acute) exacerbation Status: Acute Assessment and Plan: cause of #2 or secondary to #2 continue supportive therapy Will continue to follow. Subjective Date/time seen: 12/04/22 11:05 Respiratory status seems stable if not better on my visit; renal function continues to deteriorate but is still making reasonable urine output and has relative stability in electrolytes; no apparent distress noted. Exam Narrative: General: WD/WN AA male in NAD Lungs: coarse with a few crackles at the bases Abdomen: soft, nontender, nondistended, positive bowel sounds Extremities: no cyanosis or clubbing; trace edema Skin: warm and dry Objective Data Vital Signs Vital Signs: Vital Signs Temp Pulse Resp BP Pulse Ox O2 Del Method O2 Flow Rate 12/04/22 10:27 108 H 18 12/04/22 10:18 101 H 20 97 Nasal Cannula 3 12/04/22 10:11 101 H 20 12/04/22 04:43 97.6 F 94 20 112/65 100 12/04/22 04:00 101 H 12/04/22 03:38 102 H 96 12/04/22 03:31 105 H 20 12/04/22 03:16 101 H 20 12/04/22 00:00 106 H 12/03/22 23:25 109 H 96 12/03/22 20:00 115 H 12/03/22 21:14 96 Nasal Cannula 3 12/03/22 21:14 113 H 20 12/03/22 20:57 109 H 20 12/03/22 20:00 94 Nasal Cannula 3 12/03/22 20:02 98 F 102 H 20 101/73 100 12/03/22 16:00 102 H 12/03/22 14:59 100 22 H 12/03/22 14:00 97.6 F 103 H 21 H 122/73 100 Intake/Output Intake/Output: Intake & Output 12/01/22 12/02/22 12/03/22 12/04/22 23:59 23:59 23:59 23:59 Intake Total 1560 2301 2498 50 Output Total 1000 1100 1300 500 Balance 560 1201 1198 -450 Meds/Results Medications: Active Medications Generic Name Dose Route Start Last Admin Trade Name Freq PRN Reason Stop Dose Admin Acetaminophen 650 mg 11/28/22 21:05 11/28/22 21:22 Acetaminophen 325 Mg Tablet PO 650 mg Q4H PRN Administration Headache, fever, Pain 1-3 Hydrocodone Bitart/Acetaminophen 1 tab 11/26/22 10:35 12/03/22 20:34 Hydrocodone/Acetaminophen (*Crx) 5-325 Mg Tablet PO 1 tab Q4H PRN Administration Pain 4-6 Alprazolam 0.5 mg 12/02/22 14:52 12/04/22 05:24 Alprazolam (*Crx) 0.5 Mg Tablet PO 0.5 mg TID PRN Administration Anxiety Alteplase, Recombinant 2 mg 11/29/22 15:30 11/29/22 15:49 Alteplase 2 Mg Vial (Cathflo) IV PUSH 2 mg ONCE PRN Administration Line Occlusion Aspirin 81 mg 11/20/22 08:00 12/04/22 09:27 Aspirin 81 Mg Chewable Tablet PO 81 mg DAILY@0800 DAVIAN Administration Benzonatate 200 mg 11/20/22 07:59 11/30/22 20:14 Benzonatate 100 Mg Capsule PO 200 mg TID PRN Administration cough Budesonide 0.5 mg 11/20/22 11:20 12/04/22 10:11 Budesonide R
[2022-12-04] MEDS: HYDROcodone/acetaminophen (*CRX) 5-325 MG TABLET 1 TAB PO ×2 (12:24→17:23)
[2022-12-04] MEDS: POTASSIUM CHLORIDE 20 MEQ PACKET (FOR LIQUID) 40 MEQ PO (12:25)
--- NOTE | 2022-12-04 13:20 | PM.IMPN ---
Progress Note: A&P Assessment and Plan (1) RAÚL (acute kidney injury): Code(s): N17.9 - Acute kidney failure, unspecified Status: Acute (2) Pneumonia: Code(s): J18.9 - Pneumonia, unspecified organism Status: Acute (3) Acute and chronic respiratory failure with hypoxia: Code(s): J96.21 - Acute and chronic respiratory failure with hypoxia Status: Acute (4) Tachycardia: Code(s): R00.0 - Tachycardia, unspecified Status: Acute Plan 62-year-old male with past medical history significant for chronic hypoxic respiratory failure on supplemental oxygen 3 L by nasal cannula at nighttime patient uses a home ventilator presented to emergency room due to persistent cough for the last 3 days or so, shortness of breath, sputum production of thick yellow sputum.? His COVID, influenza and RSV RT PCR studies were negative.? Initially started on COPD exacerbation, was intubated on 11/20/22, extubated on 11/26/22,. Zosyn discontinued due? to RAÚL with Cr 2.6, started on Levaquin and Flagyl, continue Vancomycin. WIll complete 7 of total Abx on 1)Acute On Chronic Hypoxic Resp Failure: 2/ COPD+PNA Currently on NC Appreciate Pulmonary help Zosyn switched to Levaquin and Flagyl, continue Vanc c/w Bronchodilators Follow-up CBC, leukocytosis is improving 2)RAÚL: ?2/ zosyn Nephrology is on board Avoid nephrotoxins Recheck BMP in AM Supplement potassium Renal USG negative for obstructive pathology 3)DVT ppx:Lovenox 4)Code:Full 5)Dispo:pending improvement Time Spent With Patient Time with patient: 25 - 35 minutes Subjective Date/time seen: 12/04/22 13:20 Interval history: no acute events overnight Feeling better Review of Systems Review of Systems: All systems reviewed & are unremarkable except as noted in HPI and below Constitutional: Constitutional: Reports fatigue Eyes: Eyes: Reports no additional eye complaints ENT: Reports system reviewed and no additional complaints, except as documented Cardiovascular: Cardiovascular: Reports no additional cardiovascular complaints Respiratory: Respiratory: Reports cough and Reports dyspnea Gastrointestinal: Gastrointestinal: Reports no additional gastrointestinal complaints Musculoskeletal: Musculoskeletal: Reports no additional musculoskeletal complaints Neurologic: Reports system reviewed and no additional complaints, except as documented Exam Narrative: General:? Patient is alert awake and in no distress HEENT:? Pupils equal and reactive, sclera is clear,?NC in situ Neck:? Supple Respiratory:? Decrease right lung air entry, mild tenderness to palpation and lower ribs posteriorly Cardiac:? S1-S2 is normal,? normal sinus rhythm tachycardic Abdomen:? Soft, nondistended, nontender, normoactive bowel sounds, protuberant abdomen, some tenderness on the back Extremities:? No edema, palpable pedal pulses Neuro:? AO x3 Skin:? Warm and dry, no lesions noted Psych:? Normal speech and affect Objective Data Vital Signs Vital Signs: Vital Signs - 24 hr 12/03/22 14:00 12/03/22 14:59 12/03/22 16:00 Temperature 97.6 F Pulse Rate 103 H 100 102 H Respiratory Rate 21 H 22 H Blood Pressure 122/73 Pulse Oximetry 100 Oxygen Delivery Oxygen Flow Rate 12/03/22 20:02 12/03/22 20:00 12/03/22 20:57 Temperature 98 F Pulse Rate 102 H 109 H Respiratory Rate 20 20 Blood Pressure 101/73 Pulse Oximetry 100 94 Oxygen Delivery Nasal Cannula Oxygen Flow Rate 3 12/03/22 21:14 12/03/22 21:14 12/03/22 20:00 Temperature Pulse Rate 113 H 115 H Respiratory Rate 20 Blood Pressure Pulse Oximetry 96 Oxygen Delivery Nasal Cannula Oxygen Flow Rate 3 12/03/22 23:25 12/04/22 00:00 12/04/22 03:16 Temperature Pulse Rate 109 H 106 H 101 H Respiratory Rate 20 Blood Pressure Pulse Oximetry 96 Oxygen Delivery Oxygen Flow Rate 12/04/22 03:31 12/04/22 03:38 12/04/22 04:00 Temper
--- NOTE | 2022-12-04 13:44 | PCNFU ---
Nutrition Follow-Up Complete: Inadequate Oral Intake as related to mechanical ventilation as evdienced by NPO Goal:Meet estimated nutritional needs. Pt is meeting goal. Continue with same goal. Pt current nutrition is Regular, Ensure compact BID. Nutrition recommendation: Continue with current plan of care. Last recorded weight is 100.3 kg. Bowel Motility: +BM 12/03 Labs Reviewed: Hgb:9.1, HCT:29, K:3.3, BUN:26, Cr:3.6 Meds Noted: lovenox Skin: WNL Additional Notes: Pt on a regular diet, intake good at 50-75% of meals, pt reports good appetite and intake, loves the food and is feeling much better today. Will monitor and follow up in 7 days.
[2022-12-04 20:19] LABS: Vancomycin Trough 23.8 ug/mL (10.0-20.0)
[2022-12-05] VITALS (17 sets, daily range): BP systolic 104–124; BP diastolic 68–80; PULSE 88–115; RESP 16–20; TEMP 36.2–37.1; O2SAT 95–100
--- NOTE | 2022-12-05 | ECG_ITS ---
Measurements Intervals [place] Rate: 107 P: 58 [place]: 131 QRS: 46 QRSD: 89 T: 76 QT: 314 QTc: 420 Interpretive Statements SINUS TACHYCARDIA OTHERWISE NORMAL ECG COMPARED TO ECG 12/03/2022 14:31:46 NO SIGNIFICANT CHANGES Electronically Signed On 12-05-2022 13:40:07 INVENTORY CHECKER by Dre Graham M.D.
[2022-12-05 00:43] LABS: Troponin I < 0.012 ng/mL (0.000-0.034)
[2022-12-05] MEDS: IPRATROPIUM BR 0.02% INH SOLN 0.5 MG/2.5 ML VIAL INHALATION ×4 (02:28→20:45)
[2022-12-05] MEDS: HYDROcodone/acetaminophen (*CRX) 5-325 MG TABLET 1 TAB PO ×3 (02:46→17:57)
[2022-12-05 03:07] LABS: Basophils Absolute Auto 0.1 K/mm3 (0.0-0.1); Basophils Percent Auto 0.9 % (0.2-1.2); Eosinophils Absolute Auto 0.1 K/mm3 (0-0.3); Eosinophils Percent Auto 1.4 % (0-4.4); Hematocrit 29.1 % (42.0-52.0); Hemoglobin 9.2 g/dL (14.0-18.0); Immature Granulocyte Absolute 0.04 K/mm3 (0.00-0.031); Immature Granulocyte Percent A 0.4 % (0-0.5); Lymphocytes Absolute Auto 0.88 K/mm3 (0.9-3.2); Mean Corpuscular HGB Conc 31.6 g/dl (32-36); Mean Corpuscular Hemoglobin 29.9 pg (26-34); Mean Corpuscular Volume 94.5 fl (80-100); Mean Platelet Volume 10.4 fl (7.4-10.4); Monocytes Absolute Auto 0.7 K/mm3 (0.1-0.6); Monocytes Percent Auto 7.5 % (2.6-8.5); Neutrophils Absolute Auto 7.9 K/mm3 (1.3-6.7); Neutrophils Percent Auto 80.8 % (45.5-73.1); Platelet Count Result 263 k/mm3 (150-375); Red Blood Count 3.08 M/mm3 (4.6-6.20); Red Cell Distribution Width 14.9 % (11.5-14.5); White Blood Count 9.8 K/mm3 (4.5-10.0)
[2022-12-05 03:16] LABS: Anion Gap 6 mmol/L (8-16); Blood Urea Nitrogen 29 mg/dL (9-20); Calcium 8.2 mg/dL (8.4-10.2); Carbon Dioxide 30 mmol/L (22-30); Chloride 105 mmol/L (98-107); Estimated CRCL calculation 21 ml/min; Estimated Glomerular Filt Rate 19; Glucose 85 mg/dL (65-110); Potassium 3.8 mmol/L (3.4-5.0); Sodium 141 mmol/L (137-145)
[2022-12-05 03:28] LABS: Troponin I < 0.012 ng/mL (0.000-0.034)
[2022-12-05] MEDS: metroNIDAZOLE 500 MG/ISO 100ML 500 MG/100 ML BAG 100 MG IVPB ×3 (05:20→21:19)
[2022-12-05] MEDS: CENTRAL LINE FLUSH 10 ML IV PUSH ×3 (05:25→21:20)
[2022-12-05] MEDS: BUDESONIDE RESPULE NEB 0.5 MG/2 ML AMP INHALATION ×2 (07:56→20:45)
[2022-12-05] MEDS: ENOXAPARIN 40 MG/0.4 ML SYRINGE SUB-Q (08:46)
[2022-12-05] MEDS: ASPIRIN 81 MG CHEWABLE TABLET PO (08:46)
[2022-12-05] MEDS: PANTOPRAZOLE SODIUM IV 40 MG VIAL IV PUSH (08:47)
[2022-12-05] MEDS: LATANOPROST 0.005% OP SOLN 2.5 ML BTL 1 DROP EACH EYE (08:47)
[2022-12-05] MEDS: LIDOCAINE 5% PATCH 1 PATCH TRANSDERM (08:47)
[2022-12-05] MEDS: FLUTICASONE PROPIONATE 0.05% NA SPR 16 GM BTL (*BKC) 1 SPRAY NASAL (08:48)
[2022-12-05] MEDS: SACCHAROMYCES BOULARDII 250 MG CAPSULE PO ×3 (08:48→17:50)
[2022-12-05] MEDS: ROFLUMILAST 500 MCG TABLET PO (08:48)
--- NOTE | 2022-12-05 10:50 | PM.IMPN ---
Progress Note: A&P Assessment and Plan (1) RAÚL (acute kidney injury): Code(s): N17.9 - Acute kidney failure, unspecified Status: Acute (2) Pneumonia: Code(s): J18.9 - Pneumonia, unspecified organism Status: Acute (3) Acute and chronic respiratory failure with hypoxia: Code(s): J96.21 - Acute and chronic respiratory failure with hypoxia Status: Acute (4) Tachycardia: Code(s): R00.0 - Tachycardia, unspecified Status: Acute Plan 1)Acute On Chronic Hypoxic Resp Failure: 2/2 COPD+PNA Currently on NC Appreciate Pulmonary help Zosyn switched to Levaquin and Flagyl, continue Vanc c/w Bronchodilators Follow-up CBC, leukocytosis is improving 2)RAÚL: ?2/ zosyn Nephrology is on board Avoid nephrotoxins Recheck BMP in AM Supplement potassium Renal USG negative for obstructive pathology 3)DVT ppx:Lovenox 4)Code:Full 5)Dispo:pending improvement Subjective Date/time seen: 12/05/22 10:50 Feeling better Exam Narrative: General:? Patient is alert awake and in no distress HEENT:? Pupils equal and reactive, sclera is clear,?NC in situ Neck:? Supple Respiratory:? Decrease right lung air entry, mild tenderness to palpation and lower ribs posteriorly Cardiac:? S1-S2 is normal,? normal sinus rhythm tachycardic Abdomen:? Soft, nondistended, nontender, normoactive bowel sounds, protuberant abdomen, some tenderness on the back Extremities:? No edema, palpable pedal pulses Neuro:? AO x3 Skin:? Warm and dry, no lesions noted Psych:? Normal speech and affect Objective Data Vital Signs Vital Signs: Vital Signs - 24 hr 12/04/22 11:32 12/04/22 14:00 12/04/22 14:49 Temperature 97.5 F L Pulse Rate 102 H Respiratory Rate 18 18 Blood Pressure 96/70 L Pulse Oximetry 100 Oxygen Delivery Nasal Cannula Oxygen Flow Rate 3 Fraction of Inspired Oxygen 12/04/22 15:02 12/04/22 12:00 12/04/22 16:00 Temperature Pulse Rate 124 H 109 H Respiratory Rate 18 Blood Pressure Pulse Oximetry Oxygen Delivery Oxygen Flow Rate Fraction of Inspired Oxygen 12/04/22 19:33 12/04/22 19:43 12/04/22 19:45 Temperature Pulse Rate 99 Respiratory Rate 18 Blood Pressure Pulse Oximetry 95 96 Oxygen Delivery Nasal Cannula Nasal Cannula Oxygen Flow Rate 3 3 Fraction of Inspired Oxygen 12/04/22 20:12 12/04/22 20:00 12/04/22 21:48 Temperature 97.0 F L Pulse Rate 102 H 102 H 102 H Respiratory Rate 18 16 Blood Pressure 115/71 Pulse Oximetry 100 Oxygen Delivery Oxygen Flow Rate Fraction of Inspired Oxygen 12/04/22 22:10 12/05/22 00:00 12/05/22 02:30 Temperature Pulse Rate 108 H 115 H 105 H Respiratory Rate 18 Blood Pressure Pulse Oximetry 97 Oxygen Delivery Oxygen Flow Rate Fraction of Inspired Oxygen 12/05/22 02:30 12/05/22 02:36 12/05/22 04:00 Temperature Pulse Rate 105 H 108 H 102 H Respiratory Rate 18 Blood Pressure Pulse Oximetry 96 Oxygen Delivery Oxygen Flow Rate Fraction of Inspired Oxygen 12/05/22 05:10 12/05/22 07:56 12/05/22 07:56 Temperature 97.2 F L Pulse Rate 88 101 H 101 H Respiratory Rate 16 18 18 Blood Pressure 104/73 Pulse Oximetry 100 96 Oxygen Delivery Nasal Cannula Oxygen Flow Rate 3 Fraction of Inspired Oxygen 32 12/05/22 08:30 12/05/22 08:00 Temperature Pulse Rate 107 H 110 H Respiratory Rate 20 Blood Pressure Pulse Oximetry Oxygen Delivery Oxygen Flow Rate Fraction of Inspired Oxygen Intake/Output Intake/Output: Intake & Output 12/02/22 12/03/22 12/04/22 12/05/22 23:59 23:59 23:59 23:59 Intake Total 2301 2498 1010 60 Output Total 1100 1300 1000 900 Balance 1201 1198 10 -840 Meds/Results Medications: Active Medications Generic Name Dose Route Start Last Admin Trade Name Freq PRN Reason Stop Dose Admin Acetaminophen 650 mg 11/28/22 21:05 11/28/22 21:22 Acetaminophen 325
[2022-12-05] MEDS: SODIUM CHLORIDE NASAL GEL 14.1 GM 1 APPLIC NASAL (11:47)
--- NOTE | 2022-12-05 13:27 | P.PNNP_ITS ---
Progress Note: A&P Assessment and Plan (1) RAÚL (acute kidney injury): Code(s): N17.9 - Acute kidney failure, unspecified Status: Acute Assessment and Plan: * etiology? * prerenal factors * medication related (possible AIN) * due to acute infection (ATN)? * other? * evaluation to date: * renal ultrasound with obstruction * urine electrolytes prerenal * urine eosinophils negative * CPK low * no critical electrolytes and still making urine * rate of rise in creatinine seems to be slowling -- peak/plateau soon? * follow trend of repeat labs (2) Acute and chronic respiratory failure with hypoxia: Code(s): J96.21 - Acute and chronic respiratory failure with hypoxia Status: Acute Assessment and Plan: * due to COPD and possible pneumonia * on antibiotics * on nebulizer, inhalers, and steroids * Pulmonary following (3) Pneumonia: Code(s): J18.9 - Pneumonia, unspecified organism Status: Acute Assessment and Plan: * follow culture data * on antibiotics (4) Acute exacerbation of chronic obstructive airways disease: Code(s): J44.1 - Chronic obstructive pulmonary disease with (acute) exacerbation Status: Acute Assessment and Plan: * cause of #2 or secondary to #2 * continue supportive therapy Will continue to follow. Subjective Date/time seen: 12/05/22 13:27 Respiratory status seems stable; despite rising creatinine, continues to make good urine output with no critical electrolytes noted; remains in good spirits on my visit with him. Exam Narrative: General: WD/WN AA male in NAD Lungs: coarse with a few crackles at the bases Abdomen: soft, nontender, nondistended, positive bowel sounds Extremities: no cyanosis or clubbing; trace edema Skin: warm and intact Objective Data Vital Signs Vital Signs: Vital Signs Temp Pulse Resp BP Pulse Ox O2 Del Method O2 Flow Rate 12/05/22 12:00 105 H 12/05/22 08:00 96 Nasal Cannula 3 12/05/22 08:00 110 H 12/05/22 08:30 107 H 20 12/05/22 07:56 101 H 18 12/05/22 07:56 101 H 18 96 Nasal Cannula 3 12/05/22 05:10 97.2 F L 88 16 104/73 100 12/05/22 04:00 102 H 12/05/22 02:36 108 H 18 12/05/22 02:30 105 H 96 12/05/22 02:30 105 H 18 12/05/22 00:00 115 H 12/04/22 22:10 108 H 97 12/04/22 21:48 97.0 F L 102 H 16 115/71 100 12/04/22 20:00 102 H 12/04/22 20:12 102 H 18 12/04/22 19:45 96 Nasal Cannula 3 12/04/22 19:43 99 18 12/04/22 19:33 95 Nasal Cannula 3 Intake/Output Intake/Output: Intake & Output 12/02/22 12/03/22 12/04/22 12/05/22 23:59 23:59 23:59 23:59 Intake Total 2301 2498 1010 970 Output Total 1100 1300 1000 900 Balance 1201 1198 10 70 Meds/Results Medications: Active Medications Generic Name Dose Route Start Last Admin Trade Name Freq PRN Reason Stop Dose Admin Acetaminophen 650 mg 11/28/22 21:05 11/28/22 21:22 Acetaminophen 325 Mg Tablet PO 650 mg Q4H PRN Administration
--- NOTE | 2022-12-05 13:27 | PM.PNNEP ---
Progress Note: A&P Assessment and Plan (1) RAÚL (acute kidney injury): Code(s): N17.9 - Acute kidney failure, unspecified Status: Acute Assessment and Plan: etiology? prerenal factors medication related (possible AIN) due to acute infection (ATN)? other? evaluation to date: renal ultrasound with obstruction urine electrolytes prerenal urine eosinophils negative CPK low no critical electrolytes and still making urine rate of rise in creatinine seems to be slowling -- peak/plateau soon? follow trend of repeat labs (2) Acute and chronic respiratory failure with hypoxia: Code(s): J96.21 - Acute and chronic respiratory failure with hypoxia Status: Acute Assessment and Plan: due to COPD and possible pneumonia on antibiotics on nebulizer, inhalers, and steroids Pulmonary following (3) Pneumonia: Code(s): J18.9 - Pneumonia, unspecified organism Status: Acute Assessment and Plan: follow culture data on antibiotics (4) Acute exacerbation of chronic obstructive airways disease: Code(s): J44.1 - Chronic obstructive pulmonary disease with (acute) exacerbation Status: Acute Assessment and Plan: cause of #2 or secondary to #2 continue supportive therapy Will continue to follow. Subjective Date/time seen: 12/05/22 13:27 Respiratory status seems stable; despite rising creatinine, continues to make good urine output with no critical electrolytes noted; remains in good spirits on my visit with him. Exam Narrative: General: WD/WN AA male in NAD Lungs: coarse with a few crackles at the bases Abdomen: soft, nontender, nondistended, positive bowel sounds Extremities: no cyanosis or clubbing; trace edema Skin: warm and intact Objective Data Vital Signs Vital Signs: Vital Signs Temp Pulse Resp BP Pulse Ox O2 Del Method O2 Flow Rate 12/05/22 12:00 105 H 12/05/22 08:00 96 Nasal Cannula 3 12/05/22 08:00 110 H 12/05/22 08:30 107 H 20 12/05/22 07:56 101 H 18 12/05/22 07:56 101 H 18 96 Nasal Cannula 3 12/05/22 05:10 97.2 F L 88 16 104/73 100 12/05/22 04:00 102 H 12/05/22 02:36 108 H 18 12/05/22 02:30 105 H 96 12/05/22 02:30 105 H 18 12/05/22 00:00 115 H 12/04/22 22:10 108 H 97 12/04/22 21:48 97.0 F L 102 H 16 115/71 100 12/04/22 20:00 102 H 12/04/22 20:12 102 H 18 12/04/22 19:45 96 Nasal Cannula 3 12/04/22 19:43 99 18 12/04/22 19:33 95 Nasal Cannula 3 Intake/Output Intake/Output: Intake & Output 12/02/22 12/03/22 12/04/22 12/05/22 23:59 23:59 23:59 23:59 Intake Total 2301 2498 1010 970 Output Total 1100 1300 1000 900 Balance 1201 1198 10 70 Meds/Results Medications: Active Medications Generic Name Dose Route Start Last Admin Trade Name Freq PRN Reason Stop Dose Admin Acetaminophen 650 mg 11/28/22 21:05 11/28/22 21:22 Acetaminophen 325 Mg Tablet PO 650 mg Q4H PRN Administration Headache, fever, Pain 1-3 Hydrocodone Bitart/Acetaminophen 1 tab 11/26/22 10:35 12/05/22 17:57 Hydrocodone/Acetaminophen (*Crx) 5-325 Mg Tablet PO 1 tab Q4H PRN Administration Pain 4-6 Alprazolam 0.5 mg 12/02/22 14:52 12/04/22 21:08 Alprazolam (*Crx) 0.5 Mg Tablet PO 0.5 mg TID PRN Administration Anxiety Alteplase, Recombinant 2 mg 11/29/22 15:30 11/29/22 15:49 Alteplase 2 Mg Vial (Cathflo) IV PUSH 2 mg ONCE PRN Administration Line Occlusion Aspirin 81 mg 11/20/22 08:00 12/05/22 08:46 Aspirin 81 Mg Chewable Tablet PO 81 mg DAILY@0800 DAVIAN Administration Benzonatate 200 mg 11/20/22 07:59 11/30/22 20:14 Benzonatate 100 Mg Capsule PO 200 mg TID PRN Administration cough Budesonide 0.5 mg 11/20/22 11:20 12/05/22 07:56 Budesonide Respule Neb 0.5 Mg/2 Ml Amp INHALATION 0.5
--- NOTE | 2022-12-05 13:33 | PCOTNOTE ---
Attempted to see patient this pm, however patient declined. Upon entering patient covered up from head to toe. Pt reported feeling cold and dizzy. Pt given warm blanket. Pt stated, I really want to work with you, but I'm going through something right now. Pt reported completing therapy with [facility] earlier. I am adamant that I want to be able to get up and walk and do what you want me to do. However at this time, patient is going to rest. RN present at this time.
[2022-12-05] MEDS: DORNASE ALFA INH SOLN 1 MG/ML 2.5 ML AMP 2.5 MG INHALATION (20:45)
[2022-12-05] MEDS: ALPRAZolam (*CRX) 0.5 MG TABLET PO (21:18)
[2022-12-05] MEDS: CALCIUM CARBONATE (TUMS) 500 MG (200 MG ELEMENTAL) PO (21:18)
[2022-12-06] VITALS (19 sets, daily range): BP systolic 106–119; BP diastolic 68–79; PULSE 96–119; RESP 16–22; TEMP 36.2–36.6; O2SAT 95–100
[2022-12-06] MEDS: ALTEPLASE 2 MG VIAL (CATHFLO) IV PUSH (00:40)
[2022-12-06] MEDS: HYDROcodone/acetaminophen (*CRX) 5-325 MG TABLET 1 TAB PO ×4 (00:49→21:03)
[2022-12-06] MEDS: IPRATROPIUM BR 0.02% INH SOLN 0.5 MG/2.5 ML VIAL INHALATION ×4 (02:23→20:18)
[2022-12-06 04:09] LABS: Basophils Absolute Auto 0.1 K/mm3 (0.0-0.1); Basophils Percent Auto 0.8 % (0.2-1.2); Eosinophils Absolute Auto 0.2 K/mm3 (0-0.3); Eosinophils Percent Auto 1.4 % (0-4.4); Hematocrit 27.5 % (42.0-52.0); Hemoglobin 8.7 g/dL (14.0-18.0); Immature Granulocyte Absolute 0.07 K/mm3 (0.00-0.031); Immature Granulocyte Percent A 0.7 % (0-0.5); Lymphocytes Absolute Auto 0.82 K/mm3 (0.9-3.2); Lymphocytes Percent Auto 7.8 % (18.3-44.2); Mean Corpuscular HGB Conc 31.6 g/dl (32-36); Mean Corpuscular Hemoglobin 30.1 pg (26-34); Mean Corpuscular Volume 95.2 fl (80-100); Mean Platelet Volume 10.3 fl (7.4-10.4); Monocytes Absolute Auto 0.8 K/mm3 (0.1-0.6); Monocytes Percent Auto 7.1 % (2.6-8.5); Neutrophils Absolute Auto 8.7 K/mm3 (1.3-6.7); Neutrophils Percent Auto 82.2 % (45.5-73.1); Platelet Count Result 247 k/mm3 (150-375); Red Blood Count 2.89 M/mm3 (4.6-6.20); Red Cell Distribution Width 14.6 % (11.5-14.5); White Blood Count 10.6 K/mm3 (4.5-10.0)
[2022-12-06 04:40] LABS: Anion Gap 7 mmol/L (8-16); Blood Urea Nitrogen 28 mg/dL (9-20); Calcium 7.9 mg/dL (8.4-10.2); Carbon Dioxide 27 mmol/L (22-30); Chloride 104 mmol/L (98-107); Estimated CRCL calculation 21 ml/min; Estimated Glomerular Filt Rate 19; Glucose 80 mg/dL (65-110); Potassium 3.9 mmol/L (3.4-5.0); Sodium 138 mmol/L (137-145)
[2022-12-06] MEDS: metroNIDAZOLE 500 MG/ISO 100ML 500 MG/100 ML BAG 100 MG IVPB ×3 (05:01→23:34)
[2022-12-06] MEDS: CENTRAL LINE FLUSH 10 ML IV PUSH ×3 (06:37→23:59)
[2022-12-06] MEDS: BUDESONIDE RESPULE NEB 0.5 MG/2 ML AMP INHALATION ×2 (07:36→20:18)
[2022-12-06] MEDS: DORNASE ALFA INH SOLN 1 MG/ML 2.5 ML AMP 2.5 MG INHALATION ×2 (07:36→20:19)
[2022-12-06] MEDS: LATANOPROST 0.005% OP SOLN 2.5 ML BTL 1 DROP EACH EYE (08:39)
[2022-12-06] MEDS: ASPIRIN 81 MG CHEWABLE TABLET PO (08:39)
[2022-12-06] MEDS: LIDOCAINE 5% PATCH 1 PATCH TRANSDERM (08:39)
[2022-12-06] MEDS: ROFLUMILAST 500 MCG TABLET PO (08:39)
[2022-12-06] MEDS: PANTOPRAZOLE SODIUM IV 40 MG VIAL IV PUSH (08:39)
[2022-12-06] MEDS: ENOXAPARIN 40 MG/0.4 ML SYRINGE SUB-Q (08:39)
[2022-12-06] MEDS: SACCHAROMYCES BOULARDII 250 MG CAPSULE PO ×3 (08:40→21:04)
--- NOTE | 2022-12-06 10:55 | PM.IMPN ---
Progress Note: A&P Assessment and Plan (1) RAÚL (acute kidney injury): Code(s): N17.9 - Acute kidney failure, unspecified Status: Acute (2) Pneumonia: Code(s): J18.9 - Pneumonia, unspecified organism Status: Acute (3) Acute and chronic respiratory failure with hypoxia: Code(s): J96.21 - Acute and chronic respiratory failure with hypoxia Status: Acute (4) Tachycardia: Code(s): R00.0 - Tachycardia, unspecified Status: Acute Plan 1)Acute On Chronic Hypoxic Resp Failure: 2/2 COPD+PNA Currently on NC Appreciate Pulmonary help Zosyn switched to Levaquin and Flagyl, continue Vanc c/w Bronchodilators Follow-up CBC, leukocytosis is improving 2)RAÚL: ?2 zosyn Nephrology is on board Avoid nephrotoxins Recheck BMP in AM Supplement potassium Renal USG negative for obstructive pathology 3)DVT ppx:Lovenox 4)Code:Full 5)Dispo:pending improvement Subjective Date/time seen: 12/06/22 10:55 no new complaints Exam Narrative: General:? Patient is alert awake and in no distress HEENT:? Pupils equal and reactive, sclera is clear,?NC in situ Neck:? Supple Respiratory:? Decrease right lung air entry, mild tenderness to palpation and lower ribs posteriorly Cardiac:? S1-S2 is normal,? normal sinus rhythm tachycardic Abdomen:? Soft, nondistended, nontender, normoactive bowel sounds, protuberant abdomen, some tenderness on the back Extremities:? No edema, palpable pedal pulses Neuro:? AO x3 Skin:? Warm and dry, no lesions noted Psych:? Normal speech and affect Objective Data Vital Signs Vital Signs: Vital Signs - 24 hr 12/05/22 14:00 12/05/22 14:04 12/05/22 14:18 Temperature 98.8 F Pulse Rate 106 H 105 H 106 H Respiratory Rate 20 20 20 Blood Pressure 124/68 Pulse Oximetry 98 Oxygen Delivery Oxygen Flow Rate 12/05/22 12:00 12/05/22 16:00 12/05/22 20:45 Temperature Pulse Rate 105 H 110 H 101 H Respiratory Rate 20 Blood Pressure Pulse Oximetry Oxygen Delivery Oxygen Flow Rate 12/05/22 21:00 12/05/22 22:46 12/05/22 20:00 Temperature 97.9 F Pulse Rate 101 H 103 H Respiratory Rate 16 Blood Pressure 116/80 Pulse Oximetry 100 95 98 Oxygen Delivery Nasal Cannula Oxygen Flow Rate 3 12/06/22 02:25 12/06/22 02:25 12/06/22 02:35 Temperature Pulse Rate 99 99 96 Respiratory Rate 20 20 Blood Pressure Pulse Oximetry 97 Oxygen Delivery Oxygen Flow Rate 12/05/22 20:00 12/06/22 00:00 12/06/22 04:00 Temperature Pulse Rate 104 H 110 H 103 H Respiratory Rate Blood Pressure Pulse Oximetry Oxygen Delivery Oxygen Flow Rate 12/06/22 05:15 12/06/22 07:35 12/06/22 07:35 Temperature 97.2 F L Pulse Rate 101 H 111 H 111 H Respiratory Rate 16 20 Blood Pressure 106/68 Pulse Oximetry 100 95 Oxygen Delivery Nasal Cannula Oxygen Flow Rate 3 12/06/22 07:52 12/06/22 08:00 12/06/22 08:00 Temperature Pulse Rate 108 H 111 H Respiratory Rate 20 Blood Pressure Pulse Oximetry 95 Oxygen Delivery Nasal Cannula Oxygen Flow Rate 3 Intake/Output Intake/Output: Intake & Output 12/03/22 12/04/22 12/05/22 12/06/22 23:59 23:59 23:59 23:59 Intake Total 2498 1010 1730 30 Output Total 1300 1000 1200 900 Balance 1198 10 530 -870 Meds/Results Medications: Active Medications Generic Name Dose Route Start Last Admin Trade Name Freq PRN Reason Stop Dose Admin Acetaminophen 650 mg 11/28/22 21:05 11/28/22 21:22 Acetaminophen 325 Mg Tablet PO 650 mg Q4H PRN Administration Headache, fever, Pain 1-3 Alprazolam 0.5 mg 12/02/22 14:52 12/05/22 21:18 Alprazolam (*Crx) 0.5 Mg Tablet PO 0.5 mg TID PRN Administration Anxiety Alteplase, Recombinant 2 mg 11/29/22 15:30 12/06/22 00:40 Alteplase 2 Mg Vial (Cathflo) IV PUSH 2 mg ONCE PRN Administration Line Occlusion Aspirin 81 mg 11/20/22 08:00 12/06/22 08:39 Asp
--- NOTE | 2022-12-06 12:00 | P.PNNP_ITS ---
Progress Note: A&P Assessment and Plan (1) RAÚL (acute kidney injury): Code(s): N17.9 - Acute kidney failure, unspecified Status: Acute Assessment and Plan: * etiology? * prerenal factors * medication related (possible AIN) * due to acute infection (ATN)? * other? * evaluation to date: * renal ultrasound with obstruction * urine electrolytes prerenal * urine eosinophils negative * CPK low * no critical electrolytes and still making urine * creatinine appears to have peaked/plateaued at 3.9mg/dl * follow trend of repeat labs (2) Acute and chronic respiratory failure with hypoxia: Code(s): J96.21 - Acute and chronic respiratory failure with hypoxia Status: Acute Assessment and Plan: * due to COPD and possible pneumonia * on antibiotics * on nebulizer, inhalers, and steroids * Pulmonary following (3) Pneumonia: Code(s): J18.9 - Pneumonia, unspecified organism Status: Acute Assessment and Plan: * follow culture data * on antibiotics (4) Acute exacerbation of chronic obstructive airways disease: Code(s): J44.1 - Chronic obstructive pulmonary disease with (acute) exacerbation Status: Acute Assessment and Plan: * cause of #2 or secondary to #2 * continue supportive therapy Will continue to follow. Subjective Date/time seen: 12/06/22 12:00 As always, appears in good spirits at the time of my visit; continues to make good urine output in spite of renal dysfunction although creatinine has deteriorated any further by AM labs; breathing/respiratory status remains stable; no apparent distress noted. Exam Narrative: General: WD/WN AA male in NAD Lungs: coarse with a few crackles at the bases Abdomen: soft, nontender, nondistended, positive bowel sounds Extremities: no cyanosis or clubbing; trace edema Skin: no rash Objective Data Vital Signs Vital Signs: Vital Signs Temp Pulse Resp BP Pulse Ox O2 Del Method O2 Flow Rate 12/06/22 12:00 101 H 12/06/22 08:00 95 Nasal Cannula 3 12/06/22 08:00 111 H 12/06/22 07:52 108 H 20 12/06/22 07:35 111 H 20 12/06/22 07:35 111 H 95 Nasal Cannula 3 12/06/22 05:15 97.2 F L 101 H 16 106/68 100 12/06/22 04:00 103 H 12/06/22 00:00 110 H 12/05/22 20:00 104 H 12/06/22 02:35 96 20 12/06/22 02:25 99 97 12/06/22 02:25 99 20 12/05/22 20:00 98 Nasal Cannula 3 12/05/22 22:46 103 H 95 12/05/22 21:00 97.9 F 101 H 16 116/80 100 12/05/22 20:45 101 H 20 Intake/Output Intake/Output: Intake & Output 12/03/22 12/04/22 12/05/22 12/06/22 23:59 23:59 23:59 23:59 Intake Total 2498 1010 1730 130 Output Total 1300 1000 1200 900 Balance 1198 10 530 -770 Meds/Results Medications: Active Medications Generic Name Dose Route Start Last Admin Trade Name Freq PRN Reason Stop Dose Admin Acetaminophen 650 mg 11/28/22 21:05 11/28/22 21:22 Acetaminophen 325 Mg Tablet PO 650 mg Q4H PRN Administration Headache, fever, Pain 1-3 Hydrocodone Bitart/Acetam
--- NOTE | 2022-12-06 12:00 | PM.PNNEP ---
Progress Note: A&P Assessment and Plan (1) RAÚL (acute kidney injury): Code(s): N17.9 - Acute kidney failure, unspecified Status: Acute Assessment and Plan: etiology? prerenal factors medication related (possible AIN) due to acute infection (ATN)? other? evaluation to date: renal ultrasound with obstruction urine electrolytes prerenal urine eosinophils negative CPK low no critical electrolytes and still making urine creatinine appears to have peaked/plateaued at 3.9mg/dl follow trend of repeat labs (2) Acute and chronic respiratory failure with hypoxia: Code(s): J96.21 - Acute and chronic respiratory failure with hypoxia Status: Acute Assessment and Plan: due to COPD and possible pneumonia on antibiotics on nebulizer, inhalers, and steroids Pulmonary following (3) Pneumonia: Code(s): J18.9 - Pneumonia, unspecified organism Status: Acute Assessment and Plan: follow culture data on antibiotics (4) Acute exacerbation of chronic obstructive airways disease: Code(s): J44.1 - Chronic obstructive pulmonary disease with (acute) exacerbation Status: Acute Assessment and Plan: cause of #2 or secondary to #2 continue supportive therapy Will continue to follow. Subjective Date/time seen: 12/06/22 12:00 As always, appears in good spirits at the time of my visit; continues to make good urine output in spite of renal dysfunction although creatinine has deteriorated any further by AM labs; breathing/respiratory status remains stable; no apparent distress noted. Exam Narrative: General: WD/WN AA male in NAD Lungs: coarse with a few crackles at the bases Abdomen: soft, nontender, nondistended, positive bowel sounds Extremities: no cyanosis or clubbing; trace edema Skin: no rash Objective Data Vital Signs Vital Signs: Vital Signs Temp Pulse Resp BP Pulse Ox O2 Del Method O2 Flow Rate 12/06/22 12:00 101 H 12/06/22 08:00 95 Nasal Cannula 3 12/06/22 08:00 111 H 12/06/22 07:52 108 H 20 12/06/22 07:35 111 H 20 12/06/22 07:35 111 H 95 Nasal Cannula 3 12/06/22 05:15 97.2 F L 101 H 16 106/68 100 12/06/22 04:00 103 H 12/06/22 00:00 110 H 12/05/22 20:00 104 H 12/06/22 02:35 96 20 12/06/22 02:25 99 97 12/06/22 02:25 99 20 12/05/22 20:00 98 Nasal Cannula 3 12/05/22 22:46 103 H 95 12/05/22 21:00 97.9 F 101 H 16 116/80 100 12/05/22 20:45 101 H 20 Intake/Output Intake/Output: Intake & Output 12/03/22 12/04/22 12/05/22 12/06/22 23:59 23:59 23:59 23:59 Intake Total 2498 1010 1730 130 Output Total 1300 1000 1200 900 Balance 1198 10 530 -770 Meds/Results Medications: Active Medications Generic Name Dose Route Start Last Admin Trade Name Freq PRN Reason Stop Dose Admin Acetaminophen 650 mg 11/28/22 21:05 11/28/22 21:22 Acetaminophen 325 Mg Tablet PO 650 mg Q4H PRN Administration Headache, fever, Pain 1-3 Hydrocodone Bitart/Acetaminophen 1 tab 12/06/22 15:02 12/06/22 15:08 Hydrocodone/Acetaminophen (*Crx) 5-325 Mg Tablet PO 1 tab Q4H PRN Administration Pain Rated 4-6 Alprazolam 0.5 mg 12/02/22 14:52 12/05/22 21:18 Alprazolam (*Crx) 0.5 Mg Tablet PO 0.5 mg TID PRN Administration Anxiety Alteplase, Recombinant 2 mg 11/29/22 15:30 12/06/22 00:40 Alteplase 2 Mg Vial (Cathflo) IV PUSH 2 mg ONCE PRN Administration Line Occlusion Aspirin 81 mg 11/20/22 08:00 12/06/22 08:39 Aspirin 81 Mg Chewable Tablet PO 81 mg DAILY@0800 DAVIAN Administration Benzonatate 200 mg 11/20/22 07:59 11/30/22 20:14 Benzonatate 100 Mg Capsule PO 200 mg TID PRN Administration cough Budesonide 0.5 mg 11/20/22 11:20 12/06/22 07:36 Budesonide Respule Neb 0.5 Mg/2 Ml Amp INHALATION 0.5 mg Q12HRT
[2022-12-06] MEDS: ALPRAZolam (*CRX) 0.5 MG TABLET PO (23:34)
[2022-12-07] VITALS (10 sets, daily range): BP systolic 98–108; BP diastolic 68–79; PULSE 98–132; RESP 17–22; TEMP 36.3–37; O2SAT 94–100
--- NOTE | 2022-12-07 04:16 | PCRCNOTE ---
Window of time for administration has passed. See next scheduled administration.
[2022-12-07] MEDS: CENTRAL LINE FLUSH 10 ML IV PUSH ×3 (05:43→22:52)
[2022-12-07 06:00] LABS: Estimated CRCL calculation 23 ml/min; Estimated Glomerular Filt Rate 21
[2022-12-07] MEDS: LATANOPROST 0.005% OP SOLN 2.5 ML BTL 1 DROP EACH EYE (07:36)
[2022-12-07] MEDS: LIDOCAINE 5% PATCH 1 PATCH TRANSDERM (07:36)
[2022-12-07] MEDS: ROFLUMILAST 500 MCG TABLET PO (07:37)
[2022-12-07] MEDS: ENOXAPARIN 40 MG/0.4 ML SYRINGE SUB-Q (07:37)
[2022-12-07] MEDS: PANTOPRAZOLE SODIUM IV 40 MG VIAL IV PUSH (07:37)
[2022-12-07] MEDS: ASPIRIN 81 MG CHEWABLE TABLET PO (07:37)
[2022-12-07] MEDS: SACCHAROMYCES BOULARDII 250 MG CAPSULE PO ×3 (07:37→17:16)
[2022-12-07] MEDS: HYDROcodone/acetaminophen (*CRX) 5-325 MG TABLET 1 TAB PO ×3 (07:38→19:53)
[2022-12-07] MEDS: SODIUM CHLORIDE NASAL GEL 14.1 GM 1 APPLIC NASAL (07:39)
[2022-12-07] MEDS: DORNASE ALFA INH SOLN 1 MG/ML 2.5 ML AMP 2.5 MG INHALATION ×2 (08:00→09:05)
[2022-12-07] MEDS: IPRATROPIUM BR 0.02% INH SOLN 0.5 MG/2.5 ML VIAL INHALATION ×3 (09:04→21:08)
[2022-12-07] MEDS: BUDESONIDE RESPULE NEB 0.5 MG/2 ML AMP INHALATION ×2 (09:05→21:08)
--- NOTE | 2022-12-07 09:54 | PCOTNOTE ---
Attempted to see patient this am, however patient refused. Pt stated he would have his assist him when she gets here. Reminded patient of prior level of functional and educated patient on reducing burden of care. Pt continued on stating, Yeah I was independent before, and I'm gonna get back to that, but my and my counselor dormitory will help me while I need it. Pt requested to brush teeth, however refused to complete in bathroom stating, I just got back from there, so I'll do it here.
--- NOTE | 2022-12-07 10:48 | PM.PNPUL ---
Progress Note: A&P Assessment and Plan (1) Acute exacerbation of chronic obstructive airways disease: Code(s): J44.1 - Chronic obstructive pulmonary disease with (acute) exacerbation Status: Acute Assessment and Plan: Better. GOLD grade 3 group E COPD; 62-year-old man with a history of severe COPD (quit tobacco 02/2019) with an FEV1 of 0.74 L, 30% predicted on 02/14/2019, status post RUL endobronchial valve, on 3 L home O2 and noninvasive ventilator at night (through IV respiratory care) was admitted with increased shortness of breath, cough, increased congestion, expiratory wheezes, leukocytosis, CTA without PE; He developed pneumonia, was intubated until 11/26, now completed Cefepime. Improved symptoms. (2) Acute and chronic respiratory failure with hypoxia: Code(s): J96.21 - Acute and chronic respiratory failure with hypoxia Status: Acute Assessment and Plan: Patient is home a on a home noninvasive ventilator with the AVAPS-Ae mode, and his brought his from home. 11/21 Download from 08/20/2022 through 10/26/2022. This is through [employer]. Patient is on AVAPS-AE mode. Breath rate is auto, tidal volume 500, EPAP minimum 5, EPAP maximum 14, pressure support minimum 5, pressure support maximum 22, the ramp is off. % days used 88.2. % days used for 4 more hours 86.8%. Average tidal volume 420, average breath 17.6, average minute ventilation 8.8, average IPAP 16.2, average EPAP 7.1. average total leak is 79 liters/minute. I interpret this download as very good compliance, adequate pressures and high leak. 11/30 He can use his own Trilogy from home. He used it last night, slept well. 12/03 Continue to use Trilogy machine, pulmonary hygiene measures = Cornet valve, vest, Pulmozyme. 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 12/07 Continue Trilogy from home, vest, Cornet, and see if he can get a portable suction device for home use. Plan Still has frequent back pain that is musculoskeletal, wraps around chest to the front. This is better, uses massager to help with pain but it also helps with secretions. He has a [place] stent in the RUL with a chronic collapse of a segment. He can have an O2 evaluation before discharge. Use is wearing his own Trilogy machine, AVAPS AE mode. He has a number of environmental allergies, may benefit from sending to an sand digger; his breathing is impacted by weather, seasonal changes. He is using Dornase orion, Cornet vibratory valve and vibratory vest TID to help clear secretions. He has diaphragm dysfunction and is a candidate for a vibratory vest at home to help clear secretions. Time Spent With Patient Time with patient: less than 15 minutes Subjective Date/time seen: 12/07/22 10:48 Interval history: Hospital follow up?:? 62 year old man seen in follow up for acute on chronic resp failure, COPD; He is seen in follow up Dec 07, Room 303. He was extubated Nov 26, now on nasal cannula 3 L/min O2, was on O2 at 3 L/min at home before admission, has advanced COPD with a [place] valve placed 2 years ago by Interventional Pulmonary at [facility]. He was extubated 11/26, had a fever, had antibiotics changed, off Cefepime. HISTORY: 61-year-old man with a history of severe COPD (quit tobacco 02/2019) with an FEV1 of 0.74 L, 30% predicted on 02/14/2019, status post RUL endobronchial valve, on 3 L home O2 and noninvasive ventilator at night.? Patient is followed in the Pulmonary Clinic in last seen on 08/30/2022 and he improved and was down to prednisone 5 mg every other day, and azithromycin 3 times a week, was off Daliresp and he was exercising.? The plan
--- NOTE | 2022-12-07 12:06 | PM.IMPN ---
Progress Note: A&P Assessment and Plan (1) RAÚL (acute kidney injury): Code(s): N17.9 - Acute kidney failure, unspecified Status: Acute (2) Pneumonia: Code(s): J18.9 - Pneumonia, unspecified organism Status: Acute (3) Acute and chronic respiratory failure with hypoxia: Code(s): J96.21 - Acute and chronic respiratory failure with hypoxia Status: Acute (4) Tachycardia: Code(s): R00.0 - Tachycardia, unspecified Status: Acute Plan 1)Acute On Chronic Hypoxic Resp Failure: 2/2 COPD+PNA Currently on NC Appreciate Pulmonary help Zosyn switched to Levaquin and Flagyl, continue Vanc c/w Bronchodilators Follow-up CBC, leukocytosis is improving 2)RAÚL: ?2/ zosyn Nephrology is on board Avoid nephrotoxins Recheck BMP in AM Supplement potassium Renal USG negative for obstructive pathology 3)DVT ppx:Lovenox 4)Code:Full 5)Dispo:pending improvement Subjective Date/time seen: 12/07/22 12:06 No complaints Exam Narrative: General:? Patient is alert awake and in no distress HEENT:? Pupils equal and reactive, sclera is clear,?NC in situ Neck:? Supple Respiratory:? Decrease right lung air entry, mild tenderness to palpation and lower ribs posteriorly Cardiac:? S1-S2 is normal,? normal sinus rhythm tachycardic Abdomen:? Soft, nondistended, nontender, normoactive bowel sounds, protuberant abdomen, some tenderness on the back Extremities:? No edema, palpable pedal pulses Neuro:? AO x3 Skin:? Warm and dry, no lesions noted Psych:? Normal speech and affect Objective Data Vital Signs Vital Signs: Vital Signs - 24 hr 12/06/22 14:00 12/06/22 15:25 12/06/22 15:39 Temperature 97.1 F L Pulse Rate 105 H 112 H 100 Respiratory Rate 18 22 H 20 Blood Pressure 113/76 Pulse Oximetry 100 Oxygen Delivery Oxygen Flow Rate 12/06/22 16:00 12/06/22 20:23 12/06/22 20:24 Temperature Pulse Rate 119 H 110 H Respiratory Rate Blood Pressure Pulse Oximetry 98 98 Oxygen Delivery Nasal Cannula Oxygen Flow Rate 3 12/06/22 20:18 12/06/22 21:56 12/06/22 21:15 Temperature 97.8 F Pulse Rate 110 H 119 H Respiratory Rate 18 16 Blood Pressure 119/79 Pulse Oximetry 98 98 Oxygen Delivery Nasal Cannula Oxygen Flow Rate 3 12/06/22 20:00 12/07/22 00:00 12/07/22 04:00 Temperature Pulse Rate 105 H 102 H 104 H Respiratory Rate Blood Pressure Pulse Oximetry Oxygen Delivery Oxygen Flow Rate 12/07/22 06:00 12/07/22 09:08 12/07/22 08:00 Temperature 97.3 F L Pulse Rate 110 H 118 H Respiratory Rate 18 22 H Blood Pressure 108/68 Pulse Oximetry 100 96 Oxygen Delivery Nasal Cannula Oxygen Flow Rate 3 12/07/22 08:00 Temperature Pulse Rate 117 H Respiratory Rate Blood Pressure Pulse Oximetry Oxygen Delivery Oxygen Flow Rate Intake/Output Intake/Output: Intake & Output 12/04/22 12/05/22 12/06/22 12/07/22 23:59 23:59 23:59 23:59 Intake Total 1010 1730 1230 120 Output Total 1000 1200 1360 700 Balance 10 176 -787 -713 Meds/Results Medications: Active Medications Generic Name Dose Route Start Last Admin Trade Name Freq PRN Reason Stop Dose Admin Acetaminophen 650 mg 11/28/22 21:05 11/28/22 21:22 Acetaminophen 325 Mg Tablet PO 650 mg Q4H PRN Administration Headache, fever, Pain 1-3 Hydrocodone Bitart/Acetaminophen 1 tab 12/06/22 15:02 12/07/22 07:38 Hydrocodone/Acetaminophen (*Crx) 5-325 Mg Tablet PO 1 tab Q4H PRN Administration Pain Rated 4-6 Alprazolam 0.5 mg 12/02/22 14:52 12/06/22 23:34 Alprazolam (*Crx) 0.5 Mg Tablet PO 0.5 mg TID PRN Administration Anxiety Alteplase, Recombinant 2 mg 11/29/22 15:30 12/06/22 00:40 Alteplase 2 Mg Vial (Cathflo) IV PUSH 2 mg ONCE PRN Administration Line Occlusion Aspirin 81 mg 11/20/22 08:00 12/07/22 07:37 Aspirin 81 Mg Chewable Tablet PO 81 mg DAILY@0800 [facility] Administratio
--- NOTE | 2022-12-07 12:36 | PM.PNNEP ---
Progress Note: A&P Assessment and Plan (1) RAÚL (acute kidney injury): Code(s): N17.9 - Acute kidney failure, unspecified Status: Acute Assessment and Plan: etiology? prerenal factors medication related (possible AIN) due to acute infection (ATN)? other? evaluation to date: renal ultrasound with obstruction urine electrolytes prerenal urine eosinophils negative CPK low no critical electrolytes and still making urine creatinine appears to have peaked/plateaued at 3.9mg/dl follow trend of repeat labs (2) Acute and chronic respiratory failure with hypoxia: Code(s): J96.21 - Acute and chronic respiratory failure with hypoxia Status: Acute Assessment and Plan: due to COPD and possible pneumonia on antibiotics on nebulizer, inhalers, and steroids Pulmonary following (3) Pneumonia: Code(s): J18.9 - Pneumonia, unspecified organism Status: Acute Assessment and Plan: follow culture data on antibiotics (4) Acute exacerbation of chronic obstructive airways disease: Code(s): J44.1 - Chronic obstructive pulmonary disease with (acute) exacerbation Status: Acute Assessment and Plan: cause of #2 or secondary to #2 continue supportive therapy Will continue to follow. Subjective Date/time seen: 12/07/22 12:36 He continues to do well in general -- breathing/respiratory status stable if not improving; renal function better as well as he continues to have good urine output as well; no apparent distress noted at the time of my visit. Exam Narrative: General: WD/WN AA male in NAD Lungs: coarse with a few crackles at the bases Abdomen: soft, nontender, nondistended, positive bowel sounds Extremities: no cyanosis or clubbing; trace edema Skin: no rash Objective Data Vital Signs Vital Signs: Vital Signs Temp Pulse Resp BP Pulse Ox O2 Del Method O2 Flow Rate 12/07/22 12:02 98.6 F 98 18 107/79 99 12/07/22 08:00 117 H 12/07/22 08:00 96 Nasal Cannula 3 12/07/22 09:08 118 H 22 H 12/07/22 06:00 97.3 F L 110 H 18 108/68 100 12/07/22 04:00 104 H 12/07/22 00:00 102 H 12/06/22 20:00 105 H 12/06/22 21:15 98 Nasal Cannula 3 12/06/22 21:56 97.8 F 119 H 16 119/79 98 12/06/22 20:18 110 H 18 12/06/22 20:24 110 H 98 Nasal Cannula 3 12/06/22 20:23 98 Intake/Output Intake/Output: Intake & Output 12/04/22 12/05/22 12/06/22 12/07/22 23:59 23:59 23:59 23:59 Intake Total 1010 1730 1230 240 Output Total 1000 1200 1360 700 Balance 10 289 -621 -178 Meds/Results Medications: Active Medications Generic Name Dose Route Start Last Admin Trade Name Freq PRN Reason Stop Dose Admin Acetaminophen 650 mg 11/28/22 21:05 11/28/22 21:22 Acetaminophen 325 Mg Tablet PO 650 mg Q4H PRN Administration Headache, fever, Pain 1-3 Hydrocodone Bitart/Acetaminophen 1 tab 12/06/22 15:02 12/07/22 14:09 Hydrocodone/Acetaminophen (*Crx) 5-325 Mg Tablet PO 1 tab Q4H PRN Administration Pain Rated 4-6 Alprazolam 0.5 mg 12/02/22 14:52 12/06/22 23:34 Alprazolam (*Crx) 0.5 Mg Tablet PO 0.5 mg TID PRN Administration Anxiety Alteplase, Recombinant 2 mg 11/29/22 15:30 12/06/22 00:40 Alteplase 2 Mg Vial (Cathflo) IV PUSH 2 mg ONCE PRN Administration Line Occlusion Aspirin 81 mg 11/20/22 08:00 12/07/22 07:37 Aspirin 81 Mg Chewable Tablet PO 81 mg DAILY@0800 [facility] Administration Benzonatate 200 mg 11/20/22 07:59 11/30/22 20:14 Benzonatate 100 Mg Capsule PO 200 mg TID PRN Administration cough Budesonide 0.5 mg 11/20/22 11:20 12/07/22 09:05 Budesonide Respule Neb 0.5 Mg/2 Ml Amp INHALATION 0.5 mg Q12HRT [facility] Administration Calcium Carbonate 200 mg 11/27/22 08:12 12/05/22 21:18 Calcium Carbonate (Tums) 500 Mg (200 Mg Elemental) PO 200 mg
--- NOTE | 2022-12-07 12:36 | P.PNNP_ITS ---
Progress Note: A&P Assessment and Plan (1) RAÚL (acute kidney injury): Code(s): N17.9 - Acute kidney failure, unspecified Status: Acute Assessment and Plan: * etiology? * prerenal factors * medication related (possible AIN) * due to acute infection (ATN)? * other? * evaluation to date: * renal ultrasound with obstruction * urine electrolytes prerenal * urine eosinophils negative * CPK low * no critical electrolytes and still making urine * creatinine appears to have peaked/plateaued at 3.9mg/dl * follow trend of repeat labs (2) Acute and chronic respiratory failure with hypoxia: Code(s): J96.21 - Acute and chronic respiratory failure with hypoxia Status: Acute Assessment and Plan: * due to COPD and possible pneumonia * on antibiotics * on nebulizer, inhalers, and steroids * Pulmonary following (3) Pneumonia: Code(s): J18.9 - Pneumonia, unspecified organism Status: Acute Assessment and Plan: * follow culture data * on antibiotics (4) Acute exacerbation of chronic obstructive airways disease: Code(s): J44.1 - Chronic obstructive pulmonary disease with (acute) exacerbation Status: Acute Assessment and Plan: * cause of #2 or secondary to #2 * continue supportive therapy Will continue to follow. Subjective Date/time seen: 12/07/22 12:36 He continues to do well in general -- breathing/respiratory status stable if not improving; renal function better as well as he continues to have good urine output as well; no apparent distress noted at the time of my visit. Exam Narrative: General: WD/WN AA male in NAD Lungs: coarse with a few crackles at the bases Abdomen: soft, nontender, nondistended, positive bowel sounds Extremities: no cyanosis or clubbing; trace edema Skin: no rash Objective Data Vital Signs Vital Signs: Vital Signs Temp Pulse Resp BP Pulse Ox O2 Del Method O2 Flow Rate 12/07/22 12:02 98.6 F 98 18 107/79 99 12/07/22 08:00 117 H 12/07/22 08:00 96 Nasal Cannula 3 12/07/22 09:08 118 H 22 H 12/07/22 06:00 97.3 F L 110 H 18 108/68 100 12/07/22 04:00 104 H 12/07/22 00:00 102 H 12/06/22 20:00 105 H 12/06/22 21:15 98 Nasal Cannula 3 12/06/22 21:56 97.8 F 119 H 16 119/79 98 12/06/22 20:18 110 H 18 12/06/22 20:24 110 H 98 Nasal Cannula 3 12/06/22 20:23 98 Intake/Output Intake/Output: Intake & Output 12/04/22 12/05/22 12/06/22 12/07/22 23:59 23:59 23:59 23:59 Intake Total 1010 1730 1230 240 Output Total 1000 1200 1360 700 Balance 10 401 -984 -678 Meds/Results Medications: Active Medications Generic Name Dose Route Start Last Admin Trade Name Freq PRN Reason Stop Dose Admin Acetaminophen 650 mg 11/28/22 21:05 11/28/22 21:22 Acetaminophen 325 Mg Tablet PO 650 mg Q4H PRN Administration Headache, fever, Pain 1-3 Hydrocodone Bitart/Acetaminophen 1 tab 12/06/22 15:02 12/07/22 14:09 Hydrocodone/Acetaminophen (*Crx) 5-325 Mg Tablet PO 1 tab Q4H PRN Administrati
[2022-12-07 17:52] LABS: Chloride Rand Ur <20 mmol/L (32-290); Creatinine Random Urine 127 mg/dL (20-320)
[2022-12-07] MEDS: ALBUTEROL SULFATE NEB 2.5 MG/3 ML INH (21:07)
[2022-12-07] MEDS: ALPRAZolam (*CRX) 0.5 MG TABLET PO (22:50)
[2022-12-08] VITALS (21 sets, daily range): BP systolic 104–112; BP diastolic 71–75; PULSE 99–120; RESP 16–20; TEMP 36.3–36.7; O2SAT 94–100
[2022-12-08] MEDS: IPRATROPIUM BR 0.02% INH SOLN 0.5 MG/2.5 ML VIAL INHALATION ×4 (02:18→20:48)
[2022-12-08 02:57] LABS: Albumin Level 3.3 g/dL (3.5-5.1); Anion Gap 6 mmol/L (8-16); Blood Urea Nitrogen 28 mg/dL (9-20); Calcium 8.5 mg/dL (8.4-10.2); Carbon Dioxide 28 mmol/L (22-30); Chloride 104 mmol/L (98-107); Estimated CRCL calculation 23 ml/min; Estimated Glomerular Filt Rate 21; Glucose 98 mg/dL (65-110); Phosphorus 3.6 mg/dL (2.5-4.5); Potassium 4.1 mmol/L (3.4-5.0); Sodium 138 mmol/L (137-145)
[2022-12-08] MEDS: CENTRAL LINE FLUSH 10 ML IV PUSH ×3 (05:36→20:55)
[2022-12-08] MEDS: BUDESONIDE RESPULE NEB 0.5 MG/2 ML AMP INHALATION ×2 (08:18→20:48)
[2022-12-08] MEDS: DORNASE ALFA INH SOLN 1 MG/ML 2.5 ML AMP 2.5 MG INHALATION ×2 (08:18→20:48)
[2022-12-08] MEDS: LEVALBUTEROL NEB 1.25 MG/3 ML 0.63 MG INHALATION (08:21)
[2022-12-08] MEDS: ASPIRIN 81 MG CHEWABLE TABLET PO (08:48)
[2022-12-08] MEDS: ENOXAPARIN 40 MG/0.4 ML SYRINGE SUB-Q (08:49)
[2022-12-08] MEDS: SACCHAROMYCES BOULARDII 250 MG CAPSULE PO ×3 (08:49→16:50)
[2022-12-08] MEDS: ROFLUMILAST 500 MCG TABLET PO (08:49)
[2022-12-08] MEDS: PANTOPRAZOLE SODIUM IV 40 MG VIAL IV PUSH (08:49)
[2022-12-08] MEDS: LATANOPROST 0.005% OP SOLN 2.5 ML BTL 1 DROP EACH EYE (08:50)
[2022-12-08] MEDS: LIDOCAINE 5% PATCH 1 PATCH TRANSDERM (08:51)
[2022-12-08] MEDS: HYDROcodone/acetaminophen (*CRX) 5-325 MG TABLET 1 TAB PO ×3 (09:08→21:25)
--- NOTE | 2022-12-08 11:19 | PM.IMPN ---
Progress Note: A&P Assessment and Plan (1) RAÚL (acute kidney injury): Code(s): N17.9 - Acute kidney failure, unspecified Status: Acute (2) Pneumonia: Code(s): J18.9 - Pneumonia, unspecified organism Status: Acute (3) Acute and chronic respiratory failure with hypoxia: Code(s): J96.21 - Acute and chronic respiratory failure with hypoxia Status: Acute (4) Tachycardia: Code(s): R00.0 - Tachycardia, unspecified Status: Acute Plan 1)Acute On Chronic Hypoxic Resp Failure: 2/2 COPD+PNA Currently on NC Appreciate Pulmonary help Zosyn switched to Levaquin and Flagyl, continue Vanc c/w Bronchodilators Follow-up CBC, leukocytosis is improving 2)RAÚL: ?2 zosyn Nephrology is on board Avoid nephrotoxins Recheck BMP in AM Supplement potassium Renal USG negative for obstructive pathology 3)DVT ppx:Lovenox 4)Code:Full 5)Dispo:pending improvement Subjective Date/time seen: 12/08/22 11:19 no new complaints Exam Narrative: General:? Patient is alert awake and in no distress HEENT:? Pupils equal and reactive, sclera is clear,?NC in situ Neck:? Supple Respiratory:? Decrease right lung air entry, mild tenderness to palpation and lower ribs posteriorly Cardiac:? S1-S2 is normal,? normal sinus rhythm tachycardic Abdomen:? Soft, nondistended, nontender, normoactive bowel sounds, protuberant abdomen, some tenderness on the back Extremities:? No edema, palpable pedal pulses Neuro:? AO x3 Skin:? Warm and dry, no lesions noted Psych:? Normal speech and affect Objective Data Vital Signs Vital Signs: Vital Signs - 24 hr 12/07/22 14:02 12/07/22 16:00 12/07/22 21:10 Temperature 98.6 F Pulse Rate 98 115 H 119 H Respiratory Rate 18 17 Blood Pressure 107/79 Pulse Oximetry 99 Oxygen Delivery Oxygen Flow Rate 12/07/22 22:00 12/07/22 21:10 12/07/22 20:00 Temperature 97.7 F Pulse Rate 111 H 132 H Respiratory Rate 18 Blood Pressure 98/76 L Pulse Oximetry 100 94 Oxygen Delivery Nasal Cannula Oxygen Flow Rate 3 12/08/22 00:00 12/08/22 02:20 12/08/22 02:27 Temperature Pulse Rate 112 H 114 H 114 H Respiratory Rate 16 Blood Pressure Pulse Oximetry 96 Oxygen Delivery Nasal Cannula Oxygen Flow Rate 3 12/08/22 04:00 12/08/22 06:00 12/08/22 08:18 Temperature 98 F Pulse Rate 107 H 108 H 120 H Respiratory Rate 20 20 Blood Pressure 105/74 Pulse Oximetry 98 Oxygen Delivery Oxygen Flow Rate 12/08/22 08:35 12/08/22 09:10 Temperature Pulse Rate 110 H Respiratory Rate 18 Blood Pressure Pulse Oximetry 94 Oxygen Delivery Nasal Cannula Oxygen Flow Rate 3 Intake/Output Intake/Output: Intake & Output 12/05/22 12/06/22 12/07/22 12/08/22 23:59 23:59 23:59 23:59 Intake Total 1730 1230 1210 700 Output Total 1200 1360 1750 150 Balance 530 -130 -540 550 Meds/Results Medications: Active Medications Generic Name Dose Route Start Last Admin Trade Name Freq PRN Reason Stop Dose Admin Acetaminophen 650 mg 11/28/22 21:05 11/28/22 21:22 Acetaminophen 325 Mg Tablet PO 650 mg Q4H PRN Administration Headache, fever, Pain 1-3 Hydrocodone Bitart/Acetaminophen 1 tab 12/06/22 15:02 12/08/22 09:08 Hydrocodone/Acetaminophen (*Crx) 5-325 Mg Tablet PO 1 tab Q4H PRN Administration Pain Rated 4-6 Alprazolam 0.5 mg 12/02/22 14:52 12/07/22 22:50 Alprazolam (*Crx) 0.5 Mg Tablet PO 0.5 mg TID PRN Administration Anxiety Alteplase, Recombinant 2 mg 11/29/22 15:30 12/06/22 00:40 Alteplase 2 Mg Vial (Cathflo) IV PUSH 2 mg ONCE PRN Administration Line Occlusion Aspirin 81 mg 11/20/22 08:00 12/08/22 08:48 Aspirin 81 Mg Chewable Tablet PO 81 mg DAILY@0800 DAVINA Administration Benzonatate 200 mg 11/20/22 07:59 11/30/22 20:14 Benzonatate 100 Mg Capsule PO 200 mg TID PRN Administration cough Budesonide 0.5 mg 11/20/22 11:20
--- NOTE | 2022-12-08 13:25 | P.PNNP_ITS ---
Progress Note: A&P Assessment and Plan (1) RAÚL (acute kidney injury): Code(s): N17.9 - Acute kidney failure, unspecified Status: Acute Assessment and Plan: * etiology? * prerenal factors * medication related (possible AIN) * due to acute infection (ATN)? * other? * evaluation to date: * renal ultrasound with obstruction * urine electrolytes prerenal * urine eosinophils negative * CPK low * no critical electrolytes and still making urine * creatinine appears to have peaked/plateaued at 3.9mg/dl * will give a trial of IVF given prerenal urine electrolytes * follow trend of repeat labs (2) Acute and chronic respiratory failure with hypoxia: Code(s): J96.21 - Acute and chronic respiratory failure with hypoxia Status: Acute Assessment and Plan: * due to COPD and possible pneumonia * on antibiotics * on nebulizer, inhalers, and steroids * Pulmonary following (3) Pneumonia: Code(s): J18.9 - Pneumonia, unspecified organism Status: Acute Assessment and Plan: * follow culture data * on antibiotics (4) Acute exacerbation of chronic obstructive airways disease: Code(s): J44.1 - Chronic obstructive pulmonary disease with (acute) exacerbation Status: Acute Assessment and Plan: * cause of #2 or secondary to #2 * continue supportive therapy Will continue to follow. Subjective Date/time seen: 12/08/22 13:25 As always, remains in good spirits at the time of my visit; creatinine/renal function slowly improving with adequate urine output; respiratory status/breathing continues to do well as well; no apparent distress noted; no issues/events overnight or earlier this AM. Exam Narrative: General: WD/WN AA male in NAD Lungs: coarse with a few crackles at the bases Abdomen: soft, nontender, nondistended, positive bowel sounds Extremities: no cyanosis or clubbing; trace edema Skin: warm and dry Objective Data Vital Signs Vital Signs: Vital Signs Temp Pulse Resp BP Pulse Ox O2 Del Method O2 Flow Rate 12/08/22 12:00 109 H 12/08/22 08:00 105 H 12/08/22 09:10 94 Nasal Cannula 3 12/08/22 08:35 110 H 18 12/08/22 08:18 120 H 20 12/08/22 06:00 98 F 108 H 20 105/74 98 12/08/22 04:00 107 H 12/08/22 02:27 114 H 96 Nasal Cannula 3 12/08/22 02:20 114 H 16 12/08/22 00:00 112 H 12/07/22 20:00 132 H 12/07/22 21:10 94 Nasal Cannula 3 12/07/22 22:00 97.7 F 111 H 18 98/76 L 100 12/07/22 21:10 119 H 17 12/07/22 16:00 115 H Intake/Output Intake/Output: Intake & Output 12/05/22 12/06/22 12/07/22 12/08/22 23:59 23:59 23:59 23:59 Intake Total 1730 1230 1210 700 Output Total 1200 1360 1750 150 Balance 530 -130 -540 550 Meds/Results Medications: Active Medications Generic Name Dose Route Start Last Admin Trade Name Freq PRN Reason Stop Dose Admin Acetaminophen 650 mg 11/28/22 21:05 11/28/22 21:22 Acetaminophen 325 Mg Tablet PO 650 mg Q4H PRN Administration Headache, fever, Pain 1-3
--- NOTE | 2022-12-08 13:25 | PM.PNNEP ---
Progress Note: A&P Assessment and Plan (1) RAÚL (acute kidney injury): Code(s): N17.9 - Acute kidney failure, unspecified Status: Acute Assessment and Plan: etiology? prerenal factors medication related (possible AIN) due to acute infection (ATN)? other? evaluation to date: renal ultrasound with obstruction urine electrolytes prerenal urine eosinophils negative CPK low no critical electrolytes and still making urine creatinine appears to have peaked/plateaued at 3.9mg/dl will give a trial of IVF given prerenal urine electrolytes follow trend of repeat labs (2) Acute and chronic respiratory failure with hypoxia: Code(s): J96.21 - Acute and chronic respiratory failure with hypoxia Status: Acute Assessment and Plan: due to COPD and possible pneumonia on antibiotics on nebulizer, inhalers, and steroids Pulmonary following (3) Pneumonia: Code(s): J18.9 - Pneumonia, unspecified organism Status: Acute Assessment and Plan: follow culture data on antibiotics (4) Acute exacerbation of chronic obstructive airways disease: Code(s): J44.1 - Chronic obstructive pulmonary disease with (acute) exacerbation Status: Acute Assessment and Plan: cause of #2 or secondary to #2 continue supportive therapy Will continue to follow. Subjective Date/time seen: 12/08/22 13:25 As always, remains in good spirits at the time of my visit; creatinine/renal function slowly improving with adequate urine output; respiratory status/breathing continues to do well as well; no apparent distress noted; no issues/events overnight or earlier this AM. Exam Narrative: General: WD/WN AA male in NAD Lungs: coarse with a few crackles at the bases Abdomen: soft, nontender, nondistended, positive bowel sounds Extremities: no cyanosis or clubbing; trace edema Skin: warm and dry Objective Data Vital Signs Vital Signs: Vital Signs Temp Pulse Resp BP Pulse Ox O2 Del Method O2 Flow Rate 12/08/22 12:00 109 H 12/08/22 08:00 105 H 12/08/22 09:10 94 Nasal Cannula 3 12/08/22 08:35 110 H 18 12/08/22 08:18 120 H 20 12/08/22 06:00 98 F 108 H 20 105/74 98 12/08/22 04:00 107 H 12/08/22 02:27 114 H 96 Nasal Cannula 3 12/08/22 02:20 114 H 16 12/08/22 00:00 112 H 12/07/22 20:00 132 H 12/07/22 21:10 94 Nasal Cannula 3 12/07/22 22:00 97.7 F 111 H 18 98/76 L 100 12/07/22 21:10 119 H 17 12/07/22 16:00 115 H Intake/Output Intake/Output: Intake & Output 12/05/22 12/06/22 12/07/22 12/08/22 23:59 23:59 23:59 23:59 Intake Total 1730 1230 1210 700 Output Total 1200 1360 1750 150 Balance 530 -130 -540 550 Meds/Results Medications: Active Medications Generic Name Dose Route Start Last Admin Trade Name Ramseyq PRN Reason Stop Dose Admin Acetaminophen 650 mg 11/28/22 21:05 11/28/22 21:22 Acetaminophen 325 Mg Tablet PO 650 mg Q4H PRN Administration Headache, fever, Pain 1-3 Hydrocodone Bitart/Acetaminophen 1 tab 12/06/22 15:02 12/08/22 13:44 Hydrocodone/Acetaminophen (*Crx) 5-325 Mg Tablet PO 1 tab Q4H PRN Administration Pain Rated 4-6 Alprazolam 0.5 mg 12/02/22 14:52 12/07/22 22:50 Alprazolam (*Crx) 0.5 Mg Tablet PO 0.5 mg TID PRN Administration Anxiety Alteplase, Recombinant 2 mg 11/29/22 15:30 12/06/22 00:40 Alteplase 2 Mg Vial (Cathflo) IV PUSH 2 mg ONCE PRN Administration Line Occlusion Aspirin 81 mg 11/20/22 08:00 12/08/22 08:48 Aspirin 81 Mg Chewable Tablet PO 81 mg DAILY@0800 DAVIAN Administration Benzonatate 200 mg 11/20/22 07:59 11/30/22 20:14 Benzonatate 100 Mg Capsule PO 200 mg TID PRN Administration cough Budesonide 0.5 mg 11/20/22 11:20 12/08/22 08:18 Budesonide Respule Neb 0.5 Mg/2 Ml Amp INHALATION 0.5 mg
--- NOTE | 2022-12-08 14:15 | PCOTNOTE ---
Attempted to see pt for Occupational Therapy treatment, however, pt refused on this date. Pt states that he completed his grooming seated in the chair earlier and did not want to get out of bed at this time. Pt was educated on the importance of participation in therapy while seated in the chair or in standing due to having more therapeutic benefit in order to further independence for discharge home with spouse. Pt states he agrees with therapist, however, does not have any intention of getting out of bed at this time. Pt also reports of 10/10 in RLE knee and thigh. RN was made aware of pt's refusal and request for pain medication. Will continue per POC duration/frequency tomorrow.
[2022-12-08] MEDS: SODIUM CHLORIDE 0.9% IV 1,000 ML 75 ML IV CONT (16:50)
[2022-12-08] MEDS: ALPRAZolam (*CRX) 0.5 MG TABLET PO (18:45)
--- NOTE | 2022-12-08 19:55 | PM.PNPUL ---
Progress Note: A&P Assessment and Plan (1) Acute exacerbation of chronic obstructive airways disease: Code(s): J44.1 - Chronic obstructive pulmonary disease with (acute) exacerbation Status: Acute Assessment and Plan: Better. GOLD grade 3 group E COPD; 62-year-old man with a history of severe COPD (quit tobacco 02/2019) with an FEV1 of 0.74 L, 30% predicted on 02/14/2019, status post RUL endobronchial valve, on 3 L home O2 and noninvasive ventilator at night (through IV respiratory care) was admitted with increased shortness of breath, cough, increased congestion, expiratory wheezes, leukocytosis, CTA without PE; He developed pneumonia, was intubated until 11/26, now completed Cefepime. Improved symptoms. (2) Acute and chronic respiratory failure with hypoxia: Code(s): J96.21 - Acute and chronic respiratory failure with hypoxia Status: Acute Assessment and Plan: Patient is home a on a home noninvasive ventilator with the AVAPS-Ae mode, and his brought his from home. 11/21 Download from 08/20/2022 through 10/26/2022. This is through [employer]. Patient is on AVAPS-AE mode. Breath rate is auto, tidal volume 500, EPAP minimum 5, EPAP maximum 14, pressure support minimum 5, pressure support maximum 22, the ramp is off. % days used 88.2. % days used for 4 more hours 86.8%. Average tidal volume 420, average breath 17.6, average minute ventilation 8.8, average IPAP 16.2, average EPAP 7.1. average total leak is 79 liters/minute. I interpret this download as very good compliance, adequate pressures and high leak. 11/30 He can use his own Trilogy from home. He used it last night, slept well. 12/03 Continue to use Trilogy machine, pulmonary hygiene measures = Cornet valve, vest, Pulmozyme. 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 12/07 Continue Trilogy from home, vest, Cornet, and see if he can get a portable suction device for home use. Plan has less back pain that is musculoskeletal, wraps around chest to the front. This is better, uses massager to help with pain but it also helps with secretions. 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 He can have an O2 evaluation before discharge. Use is wearing his own Trilogy machine, AVAPS AE mode. He has a number of environmental allergies, may benefit from sending to an moisture conditioner operator; his breathing is impacted by weather, seasonal changes. He is using Dornase orion, Cornet vibratory valve and vibratory vest TID to help clear secretions. He has diaphragm dysfunction and is a candidate for a vibratory vest at home to help clear secretions. Subjective Date/time seen: 12/08/22 19:55 Interval history: Hospital follow up?:? 62 year old man seen in follow up for acute on chronic resp failure, COPD; He is seen in follow up Dec 08, Room 303. He was extubated Nov 26, now on nasal cannula 3 L/min O2, was on O2 at 3 L/min at home before admission, has advanced COPD with a [place] valve placed 2 years ago by Interventional Pulmonary at [facility]. He was extubated 11/26, had a fever, had antibiotics changed, off Cefepime. HISTORY: 61-year-old man with a history of severe COPD (quit tobacco 02/2019) with an FEV1 of 0.74 L, 30% predicted on 02/14/2019, status post RUL endobronchial valve, on 3 L home O2 and noninvasive ventilator at night.? Patient is followed in the Pulmonary [facility] in last seen on 08/30/2022 and he improved and was down to prednisone 5 mg every other day, and azithromycin 3 times a week, was off Daliresp and he was exercising.? The plan was to taper him off of prednisone over the next few weeks. Patient prese
[2022-12-09] VITALS (20 sets, daily range): BP systolic 109–117; BP diastolic 72–77; PULSE 98–114; RESP 16–24; TEMP 36.3–37; O2SAT 95–99
[2022-12-09] MEDS: IPRATROPIUM BR 0.02% INH SOLN 0.5 MG/2.5 ML VIAL INHALATION ×4 (02:32→20:02)
[2022-12-09] MEDS: HYDROcodone/acetaminophen (*CRX) 5-325 MG TABLET 1 TAB PO ×3 (03:58→17:11)
[2022-12-09] MEDS: CENTRAL LINE FLUSH 10 ML IV PUSH ×3 (05:40→20:55)
[2022-12-09] MEDS: CENTRAL LINE FLUSH 20 ML IV PUSH (05:40)
[2022-12-09 05:58] LABS: Basophils Absolute Auto 0.1 K/mm3 (0.0-0.1); Basophils Percent Auto 0.6 % (0.2-1.2); Eosinophils Absolute Auto 0.2 K/mm3 (0-0.3); Eosinophils Percent Auto 1.9 % (0-4.4); Hematocrit 27.1 % (42.0-52.0); Hemoglobin 8.4 g/dL (14.0-18.0); Immature Granulocyte Absolute 0.06 K/mm3 (0.00-0.031); Immature Granulocyte Percent A 0.5 % (0-0.5); Lymphocytes Absolute Auto 0.75 K/mm3 (0.9-3.2); Lymphocytes Percent Auto 6.8 % (18.3-44.2); Mean Corpuscular Hemoglobin 29.5 pg (26-34); Mean Corpuscular Volume 95.1 fl (80-100); Mean Platelet Volume 10.3 fl (7.4-10.4); Monocytes Absolute Auto 0.9 K/mm3 (0.1-0.6); Monocytes Percent Auto 8.3 % (2.6-8.5); Neutrophils Percent Auto 81.9 % (45.5-73.1); Platelet Count Result 256 k/mm3 (150-375); Red Blood Count 2.85 M/mm3 (4.6-6.20); Red Cell Distribution Width 14.6 % (11.5-14.5)
[2022-12-09 06:07] LABS: Albumin Level 3.1 g/dL (3.5-5.1); Anion Gap 2 mmol/L (8-16); Blood Urea Nitrogen 24 mg/dL (9-20); Calcium 8.1 mg/dL (8.4-10.2); Carbon Dioxide 29 mmol/L (22-30); Chloride 104 mmol/L (98-107); Estimated CRCL calculation 25 ml/min; Estimated Glomerular Filt Rate 23; Glucose 94 mg/dL (65-110); Phosphorus 3.1 mg/dL (2.5-4.5); Potassium 4.1 mmol/L (3.4-5.0); Sodium 135 mmol/L (137-145)
[2022-12-09] MEDS: BUDESONIDE RESPULE NEB 0.5 MG/2 ML AMP INHALATION ×2 (07:55→20:02)
[2022-12-09] MEDS: DORNASE ALFA INH SOLN 1 MG/ML 2.5 ML AMP 2.5 MG INHALATION ×2 (07:59→20:15)
[2022-12-09] MEDS: PANTOPRAZOLE SODIUM IV 40 MG VIAL IV PUSH (08:33)
[2022-12-09] MEDS: ENOXAPARIN 40 MG/0.4 ML SYRINGE SUB-Q (08:33)
[2022-12-09] MEDS: ASPIRIN 81 MG CHEWABLE TABLET PO (08:34)
[2022-12-09] MEDS: LIDOCAINE 5% PATCH 1 PATCH TRANSDERM (08:34)
[2022-12-09] MEDS: SACCHAROMYCES BOULARDII 250 MG CAPSULE PO ×3 (08:34→17:09)
[2022-12-09] MEDS: LATANOPROST 0.005% OP SOLN 2.5 ML BTL 1 DROP EACH EYE (08:34)
[2022-12-09] MEDS: ROFLUMILAST 500 MCG TABLET PO (08:34)
--- NOTE | 2022-12-09 11:01 | PM.IMPN ---
Progress Note: A&P Assessment and Plan (1) RAÚL (acute kidney injury): Code(s): N17.9 - Acute kidney failure, unspecified Status: Acute (2) Pneumonia: Code(s): J18.9 - Pneumonia, unspecified organism Status: Acute (3) Acute and chronic respiratory failure with hypoxia: Code(s): J96.21 - Acute and chronic respiratory failure with hypoxia Status: Acute (4) Tachycardia: Code(s): R00.0 - Tachycardia, unspecified Status: Acute Plan 1)Acute On Chronic Hypoxic Resp Failure: 2/2 COPD+PNA Currently on NC Appreciate Pulmonary help Zosyn switched to Levaquin and Flagyl, continue Vanc c/w Bronchodilators Follow-up CBC, leukocytosis is improving 2)RAÚL: ?2/ zosyn Nephrology is on board Avoid nephrotoxins Recheck BMP in AM Supplement potassium Renal USG negative for obstructive pathology 3)DVT ppx:Lovenox 4)Code:Full 5)Dispo:pending improvement Subjective Date/time seen: 12/09/22 11:01 No complaints Exam Narrative: General:? Patient is alert awake and in no distress HEENT:? Pupils equal and reactive, sclera is clear,?NC in situ Neck:? Supple Respiratory:? Decrease right lung air entry, mild tenderness to palpation and lower ribs posteriorly Cardiac:? S1-S2 is normal,? normal sinus rhythm tachycardic Abdomen:? Soft, nondistended, nontender, normoactive bowel sounds, protuberant abdomen, some tenderness on the back Extremities:? No edema, palpable pedal pulses Neuro:? AO x3 Skin:? Warm and dry, no lesions noted Psych:? Normal speech and affect Objective Data Vital Signs Vital Signs: Vital Signs - 24 hr 12/08/22 12:00 12/08/22 14:10 12/08/22 14:00 Temperature 98.1 F Pulse Rate 109 H 105 H 113 H Respiratory Rate 20 16 Blood Pressure 112/75 Pulse Oximetry 99 Oxygen Delivery Oxygen Flow Rate 12/08/22 14:25 12/08/22 16:00 12/08/22 22:00 Temperature 97.4 F L Pulse Rate 105 H 111 H 110 H Respiratory Rate 20 16 Blood Pressure 104/71 Pulse Oximetry 100 Oxygen Delivery Oxygen Flow Rate 12/08/22 20:00 12/08/22 20:00 12/09/22 00:00 Temperature Pulse Rate 100 108 H Respiratory Rate Blood Pressure Pulse Oximetry 99 Oxygen Delivery Nasal Cannula Oxygen Flow Rate 3 12/08/22 20:50 12/08/22 20:50 12/08/22 23:15 Temperature Pulse Rate 101 H 99 Respiratory Rate 20 Blood Pressure Pulse Oximetry 98 98 Oxygen Delivery Nasal Cannula Oxygen Flow Rate 3 12/08/22 20:20 12/09/22 02:33 12/09/22 04:00 Temperature Pulse Rate 106 H 104 H 113 H Respiratory Rate 20 20 Blood Pressure Pulse Oximetry Oxygen Delivery Oxygen Flow Rate 12/08/22 21:14 12/09/22 02:45 12/09/22 06:00 Temperature 98.6 F Pulse Rate 109 H 105 H 109 H Respiratory Rate 20 20 20 Blood Pressure 117/73 Pulse Oximetry 99 Oxygen Delivery Oxygen Flow Rate 12/09/22 08:02 12/09/22 07:33 12/09/22 07:18 Temperature Pulse Rate 112 H 112 H 110 H Respiratory Rate 22 H 22 H 22 H Blood Pressure Pulse Oximetry 97 Oxygen Delivery Nasal Cannula Oxygen Flow Rate 3 12/09/22 08:45 12/09/22 08:00 Temperature Pulse Rate 105 H Respiratory Rate Blood Pressure Pulse Oximetry 95 Oxygen Delivery Nasal Cannula Oxygen Flow Rate 3 Intake/Output Intake/Output: Intake & Output 12/06/22 12/07/22 12/08/22 12/09/22 23:59 23:59 23:59 23:59 Intake Total 1230 1210 1250 300 Output Total 1360 1750 150 150 Balance -130 -540 1100 150 Meds/Results Medications: Active Medications Generic Name Dose Route Start Last Admin Trade Name Freq PRN Reason Stop Dose Admin Acetaminophen 650 mg 11/28/22 21:05 11/28/22 21:22 Acetaminophen 325 Mg Tablet PO 650 mg Q4H PRN Administration Headache, fever, Pain 1-3 Hydrocodone Bitart/Acetaminophen 1 tab 12/06/22 15:02 12/09/22 08:42 Hydrocodone/Acetaminophen (*Crx) 5-325 Mg Tablet PO 1 tab Q4H PRN Administratio
--- NOTE | 2022-12-09 14:33 | PM.PNNEP ---
Progress Note: A&P Assessment and Plan (1) RAÚL (acute kidney injury): Code(s): N17.9 - Acute kidney failure, unspecified Status: Acute Assessment and Plan: etiology not clear prerenal factors medication related (possible AIN) due to acute infection (ATN)? other? evaluation to date: renal ultrasound with obstruction urine electrolytes prerenal urine eosinophils negative CPK low no critical electrolytes and still making urine creatinine appears to have peaked/plateaued at 3.9mg/dl follow trend of repeat labs (2) Acute and chronic respiratory failure with hypoxia: Code(s): J96.21 - Acute and chronic respiratory failure with hypoxia Status: Acute Assessment and Plan: due to COPD and possible pneumonia on antibiotics on nebulizer, inhalers, and steroids Pulmonary following (3) Pneumonia: Code(s): J18.9 - Pneumonia, unspecified organism Status: Acute Assessment and Plan: follow culture data on antibiotics (4) Acute exacerbation of chronic obstructive airways disease: Code(s): J44.1 - Chronic obstructive pulmonary disease with (acute) exacerbation Status: Acute Assessment and Plan: cause of #2 or secondary to #2 continue supportive therapy Will continue to follow. Subjective Date/time seen: 12/09/22 14:33 Continues to do well in general -- renal function improving slowly with relative stability in respiratory status/breathing; as always, remains in good spirits on my visit; continues to make good urine output as well. Exam Narrative: General: WD/WN AA male in NAD Lungs: coarse breath sounds Abdomen: soft, nontender, nondistended, positive bowel sounds Extremities: no cyanosis or clubbing; trace edema Skin: warm and intact Objective Data Vital Signs Vital Signs: Vital Signs Temp Pulse Resp BP Pulse Ox O2 Del Method O2 Flow Rate 12/09/22 14:21 109 H 20 12/09/22 14:15 113 H 20 12/09/22 14:05 98.6 F 110 H 18 114/77 99 12/09/22 12:00 98 12/09/22 08:00 105 H 12/09/22 08:45 95 Nasal Cannula 3 12/09/22 07:18 110 H 22 H 12/09/22 07:33 112 H 22 H 12/09/22 08:02 112 H 22 H 97 Nasal Cannula 3 12/09/22 06:00 98.6 F 109 H 20 117/73 99 12/09/22 02:45 105 H 20 12/08/22 21:14 109 H 20 12/09/22 04:00 113 H 12/09/22 02:33 104 H 20 12/08/22 20:20 106 H 20 12/08/22 23:15 99 98 12/08/22 20:50 98 Nasal Cannula 3 12/08/22 20:50 101 H 20 12/09/22 00:00 108 H 12/08/22 20:00 99 Nasal Cannula 3 12/08/22 20:00 100 12/08/22 22:00 97.4 F L 110 H 16 104/71 100 Intake/Output Intake/Output: Intake & Output 12/06/22 12/07/22 12/08/22 12/09/22 23:59 23:59 23:59 23:59 Intake Total 1230 1210 1250 340 Output Total 1360 1750 150 150 Balance -130 -540 1100 190 Meds/Results Medications: Active Medications Generic Name Dose Route Start Last Admin Trade Name Ramsey PRN Reason Stop Dose Admin Acetaminophen 650 mg 11/28/22 21:05 11/28/22 21:22 Acetaminophen 325 Mg Tablet PO 650 mg Q4H PRN Administration Headache, fever, Pain 1-3 Hydrocodone Bitart/Acetaminophen 1 tab 12/06/22 15:02 12/09/22 08:42 Hydrocodone/Acetaminophen (*Crx) 5-325 Mg Tablet PO 1 tab Q4H PRN Administration Pain Rated 4-6 Alprazolam 0.5 mg 12/02/22 14:52 12/08/22 18:45 Alprazolam (*Crx) 0.5 Mg Tablet PO 0.5 mg TID PRN Administration Anxiety Alteplase, Recombinant 2 mg 11/29/22 15:30 12/06/22 00:40 Alteplase 2 Mg Vial (Cathflo) IV PUSH 2 mg ONCE PRN Administration Line Occlusion Aspirin 81 mg 11/20/22 08:00 12/09/22 08:34 Aspirin 81 Mg Chewable Tablet PO 81 mg DAILY@0800 DAVIAN Administration Benzonatate 200 mg 11/20/22 07:59 11/30/22 20:14 Benzonatate 100 Mg Capsule PO 200 mg TID PRN
--- NOTE | 2022-12-09 14:33 | P.PNNP_ITS ---
Progress Note: A&P Assessment and Plan (1) RAÚL (acute kidney injury): Code(s): N17.9 - Acute kidney failure, unspecified Status: Acute Assessment and Plan: * etiology not clear * prerenal factors * medication related (possible AIN) * due to acute infection (ATN)? * other? * evaluation to date: * renal ultrasound with obstruction * urine electrolytes prerenal * urine eosinophils negative * CPK low * no critical electrolytes and still making urine * creatinine appears to have peaked/plateaued at 3.9mg/dl * follow trend of repeat labs (2) Acute and chronic respiratory failure with hypoxia: Code(s): J96.21 - Acute and chronic respiratory failure with hypoxia Status: Acute Assessment and Plan: * due to COPD and possible pneumonia * on antibiotics * on nebulizer, inhalers, and steroids * Pulmonary following (3) Pneumonia: Code(s): J18.9 - Pneumonia, unspecified organism Status: Acute Assessment and Plan: * follow culture data * on antibiotics (4) Acute exacerbation of chronic obstructive airways disease: Code(s): J44.1 - Chronic obstructive pulmonary disease with (acute) exacerbation Status: Acute Assessment and Plan: * cause of #2 or secondary to #2 * continue supportive therapy Will continue to follow. Subjective Date/time seen: 12/09/22 14:33 Continues to do well in general -- renal function improving slowly with relative stability in respiratory status/breathing; as always, remains in good spirits on my visit; continues to make good urine output as well. Exam Narrative: General: WD/WN AA male in NAD Lungs: coarse breath sounds Abdomen: soft, nontender, nondistended, positive bowel sounds Extremities: no cyanosis or clubbing; trace edema Skin: warm and intact Objective Data Vital Signs Vital Signs: Vital Signs Temp Pulse Resp BP Pulse Ox O2 Del Method O2 Flow Rate 12/09/22 14:21 109 H 20 12/09/22 14:15 113 H 20 12/09/22 14:05 98.6 F 110 H 18 114/77 99 12/09/22 12:00 98 12/09/22 08:00 105 H 12/09/22 08:45 95 Nasal Cannula 3 12/09/22 07:18 110 H 22 H 12/09/22 07:33 112 H 22 H 12/09/22 08:02 112 H 22 H 97 Nasal Cannula 3 12/09/22 06:00 98.6 F 109 H 20 117/73 99 12/09/22 02:45 105 H 20 12/08/22 21:14 109 H 20 12/09/22 04:00 113 H 12/09/22 02:33 104 H 20 12/08/22 20:20 106 H 20 12/08/22 23:15 99 98 12/08/22 20:50 98 Nasal Cannula 3 12/08/22 20:50 101 H 20 12/09/22 00:00 108 H 12/08/22 20:00 99 Nasal Cannula 3 12/08/22 20:00 100 12/08/22 22:00 97.4 F L 110 H 16 104/71 100 Intake/Output Intake/Output: Intake & Output 12/06/22 12/07/22 12/08/22 12/09/22 23:59 23:59 23:59 23:59 Intake Total 1230 1210 1250 340 Output Total 1360 1750 150 150 Balance -130 -540 1100 190 Meds/Results Medications: Active Medications Generic Name Dose Route Start Last Admin Trade Name Freq PRN Reason Stop Do
[2022-12-09] MEDS: LEVALBUTEROL NEB 1.25 MG/3 ML 0.63 MG INHALATION (17:15)
[2022-12-09] MEDS: ACETAMINOPHEN 325 MG TABLET 650 MG PO (19:04)
[2022-12-09] MEDS: ALPRAZolam (*CRX) 0.5 MG TABLET PO (19:04)
[2022-12-10] VITALS (8 sets, daily range): BP systolic 99; BP diastolic 69; PULSE 97–110; RESP 16; TEMP 36.2; O2SAT 97–99
[2022-12-10] MEDS: HYDROcodone/acetaminophen (*CRX) 5-325 MG TABLET 1 TAB PO ×2 (01:11→07:21)
[2022-12-10] MEDS: IPRATROPIUM BR 0.02% INH SOLN 0.5 MG/2.5 ML VIAL INHALATION ×2 (02:19→08:06)
[2022-12-10] MEDS: CENTRAL LINE FLUSH 20 ML IV PUSH (05:58)
[2022-12-10] MEDS: CENTRAL LINE FLUSH 10 ML IV PUSH (05:59)
[2022-12-10 06:50] LABS: Albumin Level 3.1 g/dL (3.5-5.1); Anion Gap 2 mmol/L (8-16); Blood Urea Nitrogen 21 mg/dL (9-20); Calcium 8.1 mg/dL (8.4-10.2); Carbon Dioxide 29 mmol/L (22-30); Chloride 103 mmol/L (98-107); Estimated CRCL calculation 29 ml/min; Estimated Glomerular Filt Rate 28; Glucose 101 mg/dL (65-110); Phosphorus 3.5 mg/dL (2.5-4.5); Potassium 3.8 mmol/L (3.4-5.0); Sodium 134 mmol/L (137-145)
[2022-12-10] MEDS: BUDESONIDE RESPULE NEB 0.5 MG/2 ML AMP INHALATION (08:06)
[2022-12-10] MEDS: DORNASE ALFA INH SOLN 1 MG/ML 2.5 ML AMP 2.5 MG INHALATION (08:11)
[2022-12-10] MEDS: ASPIRIN 81 MG CHEWABLE TABLET PO (09:27)
[2022-12-10] MEDS: SACCHAROMYCES BOULARDII 250 MG CAPSULE PO (09:27)
[2022-12-10] MEDS: ROFLUMILAST 500 MCG TABLET PO (09:28)
[2022-12-10] MEDS: LATANOPROST 0.005% OP SOLN 2.5 ML BTL 1 DROP EACH EYE (09:28)
[2022-12-10] MEDS: PANTOPRAZOLE SODIUM IV 40 MG VIAL IV PUSH (09:28)
[2022-12-10] MEDS: ENOXAPARIN 40 MG/0.4 ML SYRINGE SUB-Q (09:28)
[2022-12-10] MEDS: LIDOCAINE 5% PATCH 1 PATCH TRANSDERM (09:29)
--- NOTE | 2022-12-10 09:31 | PCOTNOTE ---
D/C pt. from occupational therapy services, as pt. has met all goals and returned to baseline function. Pt. can continue to participate in ADLs and functional activity with nursing staff and family during remainder of stay in hospital
--- NOTE | 2022-12-10 10:45 | P.PNNP_ITS ---
Progress Note: A&P Assessment and Plan (1) RAÚL (acute kidney injury): Code(s): N17.9 - Acute kidney failure, unspecified Status: Acute Assessment and Plan: * etiology not clear but suspect multifactorial: * prerenal factors * medication related (possible AIN) * due to acute infection (ATN)? * other? * evaluation to date: * renal ultrasound with obstruction * urine electrolytes prerenal * urine eosinophils negative * CPK low * no critical electrolytes and still making urine * creatinine appears to have peaked/plateaued at 3.9mg/dl * follow trend of repeat labs (2) Acute and chronic respiratory failure with hypoxia: Code(s): J96.21 - Acute and chronic respiratory failure with hypoxia Status: Acute Assessment and Plan: * due to COPD and possible pneumonia * on antibiotics * on nebulizer, inhalers, and steroids * Pulmonary following (3) Pneumonia: Code(s): J18.9 - Pneumonia, unspecified organism Status: Acute Assessment and Plan: * follow culture data * on antibiotics (4) Acute exacerbation of chronic obstructive airways disease: Code(s): J44.1 - Chronic obstructive pulmonary disease with (acute) exacerbation Status: Acute Assessment and Plan: * cause of #2 or secondary to #2 * continue supportive therapy Will continue to follow. Subjective Date/time seen: 12/10/22 10:45 As always, remains in good spirits at the time of my visit; breathing/respiratory status stable; renal function continues to improve at this time as well with reasonable urine output. Exam Narrative: General: WD/WN AA male in NAD Lungs: coarse breath sounds Abdomen: soft, nontender, nondistended, positive bowel sounds Extremities: no cyanosis or clubbing; trace edema Skin: warm and intact Objective Data Vital Signs Vital Signs: Vital Signs Temp Pulse Resp BP Pulse Ox O2 Del Method O2 Flow Rate 12/10/22 08:00 99 12/10/22 08:42 99 16 12/10/22 08:08 98 97 Nasal Cannula 3 12/10/22 08:07 97 16 12/10/22 05:25 97.2 F L 105 H 16 99/69 L 99 12/10/22 04:00 110 H 12/10/22 02:20 101 H 16 12/10/22 00:00 99 12/09/22 20:00 99 Nasal Cannula 3 12/09/22 20:00 112 H 12/09/22 20:54 97.3 F L 112 H 16 109/72 99 12/09/22 20:06 110 H 16 12/09/22 16:00 110 H 12/09/22 17:28 114 H 20 12/09/22 17:15 111 H 24 H 12/09/22 14:21 109 H 20 12/09/22 14:15 113 H 20 12/09/22 14:05 98.6 F 110 H 18 114/77 99 12/09/22 12:00 98 Intake/Output Intake/Output: Intake & Output 12/07/22 12/08/22 12/09/22 12/10/22 23:59 23:59 23:59 23:59 Intake Total 1210 1250 640 118 Output Total 1750 766 109 1594 Balance -540 1100 490 1182 Meds/Results Medications: Active Medications Generic Name Dose Route Start Last Admin Trade Name Freq PRN Reason Stop Dose Admin Acetaminophen 650 mg 11/28/22 21:05 12/09/22 19:04 Acetaminophen 325 Mg Tablet PO 650 mg Q4H PRN Administration
--- NOTE | 2022-12-10 10:45 | PM.PNNEP ---
Progress Note: A&P Assessment and Plan (1) RAÚL (acute kidney injury): Code(s): N17.9 - Acute kidney failure, unspecified Status: Acute Assessment and Plan: etiology not clear but suspect multifactorial: prerenal factors medication related (possible AIN) due to acute infection (ATN)? other? evaluation to date: renal ultrasound with obstruction urine electrolytes prerenal urine eosinophils negative CPK low no critical electrolytes and still making urine creatinine appears to have peaked/plateaued at 3.9mg/dl follow trend of repeat labs (2) Acute and chronic respiratory failure with hypoxia: Code(s): J96.21 - Acute and chronic respiratory failure with hypoxia Status: Acute Assessment and Plan: due to COPD and possible pneumonia on antibiotics on nebulizer, inhalers, and steroids Pulmonary following (3) Pneumonia: Code(s): J18.9 - Pneumonia, unspecified organism Status: Acute Assessment and Plan: follow culture data on antibiotics (4) Acute exacerbation of chronic obstructive airways disease: Code(s): J44.1 - Chronic obstructive pulmonary disease with (acute) exacerbation Status: Acute Assessment and Plan: cause of #2 or secondary to #2 continue supportive therapy Will continue to follow. Subjective Date/time seen: 12/10/22 10:45 As always, remains in good spirits at the time of my visit; breathing/respiratory status stable; renal function continues to improve at this time as well with reasonable urine output. Exam Narrative: General: WD/WN AA male in NAD Lungs: coarse breath sounds Abdomen: soft, nontender, nondistended, positive bowel sounds Extremities: no cyanosis or clubbing; trace edema Skin: warm and intact Objective Data Vital Signs Vital Signs: Vital Signs Temp Pulse Resp BP Pulse Ox O2 Del Method O2 Flow Rate 12/10/22 08:00 99 12/10/22 08:42 99 16 12/10/22 08:08 98 97 Nasal Cannula 3 12/10/22 08:07 97 16 12/10/22 05:25 97.2 F L 105 H 16 99/69 L 99 12/10/22 04:00 110 H 12/10/22 02:20 101 H 16 12/10/22 00:00 99 12/09/22 20:00 99 Nasal Cannula 3 12/09/22 20:00 112 H 12/09/22 20:54 97.3 F L 112 H 16 109/72 99 02/26/23 20:06 110 H 16 12/09/22 16:00 110 H 12/09/22 17:28 114 H 20 12/09/22 17:15 111 H 24 H 12/09/22 14:21 109 H 20 12/09/22 14:15 113 H 20 12/09/22 14:05 98.6 F 110 H 18 114/77 99 12/09/22 12:00 98 Intake/Output Intake/Output: Intake & Output 12/07/22 12/08/22 12/09/22 12/10/22 23:59 23:59 23:59 23:59 Intake Total 1210 1250 640 118 Output Total 1750 659 454 4073 Balance -540 1100 490 -1182 Meds/Results Medications: Active Medications Generic Name Dose Route Start Last Admin Trade Name Freq PRN Reason Stop Dose Admin Acetaminophen 650 mg 11/28/22 21:05 12/09/22 19:04 Acetaminophen 325 Mg Tablet PO 650 mg Q4H PRN Administration Headache, fever, Pain 1-3 Hydrocodone Bitart/Acetaminophen 1 tab 12/06/22 15:02 12/10/22 07:21 Hydrocodone/Acetaminophen (*Crx) 5-325 Mg Tablet PO 1 tab Q4H PRN Administration Pain Rated 4-6 Alprazolam 0.5 mg 12/02/22 14:52 12/09/22 19:04 Alprazolam (*Crx) 0.5 Mg Tablet PO 0.5 mg TID PRN Administration Anxiety Alteplase, Recombinant 2 mg 11/29/22 15:30 12/06/22 00:40 Alteplase 2 Mg Vial (Cathflo) IV PUSH 2 mg ONCE PRN Administration Line Occlusion Aspirin 81 mg 11/20/22 08:00 12/10/22 09:27 Aspirin 81 Mg Chewable Tablet PO 81 mg DAILY@0800 DAVIAN Administration Benzonatate 200 mg 11/20/22 07:59 11/30/22 20:14 Benzonatate 100 Mg Capsule PO 200 mg TID PRN Administration cough Budesonide 0.5 mg 11/20/22 11:20 12/10/22 08:06 Budesonide Respule Neb 0.5 Mg/2 Ml Amp INHALATION 0.5 m
--- NOTE | 2022-12-10 10:50 | PM.DS ---
DS: Admitting Diagnosis Discharge Date December 10, 2022 Admitting Diagnosis COPD, respiratory failure DS: Discharge Diagnosis Discharge Diagnosis (1) RAÚL (acute kidney injury): Code(s): N17.9 - Acute kidney failure, unspecified Status: Acute (2) Pneumonia: Code(s): J18.9 - Pneumonia, unspecified organism Status: Acute (3) Acute and chronic respiratory failure with hypoxia: Code(s): J96.21 - Acute and chronic respiratory failure with hypoxia Status: Acute (4) Tachycardia: Code(s): R00.0 - Tachycardia, unspecified Status: Acute Plan 1)Acute On Chronic Hypoxic Resp Failure: 2/2 COPD+PNA Currently on NC Appreciate Pulmonary help Zosyn switched to Levaquin and Flagyl, continue Vanc c/w Bronchodilators Follow-up CBC, leukocytosis is improving 2)RAÚL: ?2/ rolan Nephrology is on board Avoid nephrotoxins Recheck BMP in AM Supplement potassium Renal USG negative for obstructive pathology 3)DVT ppx:Lovenox 4)Code:Full 5)Dispo:pending improvement DS: Summary Hospital Course Hospital Course: 62-year-old male admitted for COPD and pneumonia. Started on antibiotics did well from respiratory standpoint however developed acute kidney injury. This is not to be likely related antibiotics. Nonetheless patient improved conservative therapy. Respiratory status is much improved. He can be discharged home Time Spent with Patient Time attestation: Total time spent providing and/or coordinating discharge services: Exam Narrative: General:? Patient is alert awake and in no distress HEENT:? Pupils equal and reactive, sclera is clear,?NC in situ Neck:? Supple Respiratory:? Decrease right lung air entry, mild tenderness to palpation and lower ribs posteriorly Cardiac:? S1-S2 is normal,? normal sinus rhythm tachycardic Abdomen:? Soft, nondistended, nontender, normoactive bowel sounds, protuberant abdomen, some tenderness on the back Extremities:? No edema, palpable pedal pulses Neuro:? AO x3 Skin:? Warm and dry, no lesions noted Psych:? Normal speech and affect DS: Data Data Completed and Pending Labs on day of discharge: Labs from last 24 hours 12/10/22 05:49 Sodium 134 L Potassium 3.8 Chloride 103 Carbon Dioxide 29 Anion Gap 2 L BUN 21 H Creatinine 2.80 H Estim Creat Clear Calc 29 Estimated GFR 28 L Glucose 101 Calcium 8.1 L Phosphorus 3.5 Albumin 3.1 L Discharge Plan Discharge Attending physician on discharge: Bentley Garcia Consulting providers: Bentley Ham ; Vicente Mckeon ; Harjeet Chen Discharging Clinician: Bentley Garcia Patient Disposition: Home Health Service Activity: no preference Diet: as tolerated Discharge Instructions: Per Care Coordination: [facility] has been arranged to follow at discharge. [facility] will follow for PT/OT eval and treat. [facility] can be contacted at [phone]. Nursing please fax discharge instructions to [phone] Patient Instructions: Antibiotic Form, Acute Kidney Injury (DC), COPD (Chronic Obstructive Pulmonary Disease) (DC), Tachycardia (GEN) Stand Alone Forms: General Discharge Information Follow-up/Referrals: Bill,MD Aristeo [Primary Care Provider] - Harjeet Chen MD [Physician] - Bentley Ham MD [Physician] - Discharge Medications: New aspirin [Children's Aspirin] 81 mg Tablet,Chewable 81 mg PO DAILY@0800 30 Days Qty: 30 0RF Continued [place] [facility] Refill 25 mcg/mL solution for nebulization 1 ml INHALATION DAILY Qty: 60 3RF hydrocodone-acetaminophen 5-325 mg Tablet 1 tablet PO Q6H PRN (Reason: Pain) roflumilast [Daliresp] 500 mcg Tablet 500 mcg PO DAILY polyethylene glycol 3350 [Miralax] 17 gram/dose powder 17 g PO DAILY Qty: 119 0RF latanoprost 0.005 % drops 1 drp EACH EYE DAILY prednisone 10 mg tablet 10 mg PO DAILY promethazine-D
== END 2022-12-10 12:15 | disposition home health service (06) | DRG 207 ==
LOC: ANHED 11-20 02:11 → ANHIMU 11-20 02:36 → ANHICU 11-20 09:46 → ANH3MEDSUR 11-30 14:44
PROVIDERS: Family Medicine; Hospitalist; Internal Medicine; Internal Medicine Nephrology; Admitting Provider Internal Medicine; Emergency Provider Emergency Medicine; PCP Internal Medicine; Visit Provider Chiropractor
DX: J18.9 Pneumonia, unspecified organism (principal); J96.21 Acute and chronic respiratory failure with hypoxia; N17.0 Acute kidney failure with tubular necrosis; N17.9 Acute kidney failure, unspecified; I82.511 Chronic embolism and thrombosis of right femoral vein; J43.9 Emphysema, unspecified; R00.0 Tachycardia, unspecified; G89.4 Chronic pain syndrome; I45.5 Other specified heart block; Z20.822 Contact with and (suspected) exposure to COVID-19; Z99.81 Dependence on supplemental oxygen; Z87.891 Personal history of nicotine dependence; Z79.52 Long term (current) use of systemic steroids; Z79.890 Hormone replacement therapy; Z79.899 Other long term (current) drug therapy; Z82.49 Family history of ischemic heart disease and other diseases of the circulatory system; Z83.3 Family history of diabetes mellitus; Z80.1 Family history of malignant neoplasm of trachea, bronchus and lung
CPT/HCPCS: 31500; 36415; 36569; 36600; 71045; 71250; 71275; 74176; 76775; 80048; 80053; 80069; 80202; 81001; 81050; 82375; 82436; 82550; 82565; 82570; 82805; 82948; 83050; 83605; 83690; 83735; 83880; 84100; 84145; 84156; 84300; 84478; 84484; 84540; 85025; 85027; 85999; 86140; 87040; 87070; 87081; 87086; 87205; 87637; 93005; 93970; 94002; 94003; 94640; 94660; 94667; 94668; 94669; 96361; 96365; 96367; 96375; 96376; 97110; 97116; 97161; 97166; 97530; 97535; 99285; A9270; C1751; C9113; G0378; J0456; J0692; J0696; J0780; J1650; J1940; J1956; J2060; J2250; J2270; J2543; J2704; J2765; J2920; J2930; J2997; J3010; J3370; J7030; Q9967

== ENCOUNTER 2023-01-16 10:36 | Outpatient (CLI) | payer MEDICARE, SELFPAY ==
[2023-01-16 11:07] LABS: Albumin Level 4.2 g/dL (3.5-5.1); Anion Gap 6 mmol/L (8-16); Blood Urea Nitrogen 10 mg/dL (9-20); Carbon Dioxide 26 mmol/L (22-30); Chloride 107 mmol/L (98-107); Estimated Glomerular Filt Rate > 60; Glucose 91 mg/dL (65-110); Phosphorus 2.7 mg/dL (2.5-4.5); Potassium 4.1 mmol/L (3.4-5.0); Sodium 139 mmol/L (137-145)
== END 2023-01-16 10:37 | disposition home or self-care (01) ==
PROVIDERS: PCP Physician Assistant; Visit Provider Internal Medicine Nephrology
DX: N17.9 Acute kidney failure, unspecified (principal)
CPT/HCPCS: 36415; 80069

== ENCOUNTER 2023-02-17 14:41 | Emergency (ER) | payer MEDICARE, MEDICAID, SELFPAY ==
[2023-02-17] VITALS (13 sets, daily range): BP systolic 111–146; BP diastolic 74–100; PULSE 84–115; RESP 12–26; TEMP 37.7; O2SAT 90–100
--- NOTE | ~2023-02-17 | CT_ITS ---
EXAMINATION: CTA chest PE protocol DATE: 02/17/2023 16:36 INDICATION: Shortness of breath. Chest pain. TECHNIQUE: Computed tomography angiography (CTA) of the chest was performed with 100 mL Omnipaque-350 intravenous contrast timed to evaluate the pulmonary arteries. Coronal maximum intensity projection 3D-reconstructions were created by the technologist. Automated exposure control and iterative reconst ruction technique were employed. The dose-length product was 867.24 mGy-cm. COMPARISON: Chest CT 11/25/2022 FINDINGS: There is moderate emphysema. There is chronic collapse of right upper lobe with endobronchi al valves. There is mild atelectasis bilaterally. No pleural effusion. There is an 8 mm nodule in the thyroid, likely not clinically significant. The heart size is normal. No pericardial effusion. There is no pulmonary embolus. There is a 17 mm cyst in right kidney. There are bridging endplate osteophy allen at multiple levels in the spine, consistent with diffuse idiopathic skeletal hyperostosis (DISH). IMPRESSION: 1. No pulmonary embolus. 2. Moderate emphysema. 3. Chronic right upper lobe collapse with endobronchial valves. Reviewed, dictated and finalized at location A.
--- NOTE | ~2023-02-17 | XR_ITS ---
EXAMINATION: XR chest 1V portable DATE: 02/17/2023 15:19 INDICATION: Shortness of breath and fever. TECHNIQUE: A single frontal view of the chest was obtained. COMPARISON: Chest single view 12/05/2022, chest CT 11/25/2022 FINDINGS: There is chronic collapse of right upper lobe with endobronchial valves. There are lucencie s in the lungs, consistent with emphysema. There is chronic linear atelectasis in right lower lung zo ne. No pleural effusion or pneumothorax. The heart size is normal. IMPRESSION: 1. Emphysema. 2. Chronic collapse of right upper lobe with endobronchial valves. Reviewed, dictated and finalized at location A.
--- NOTE | 2023-02-17 14:48 | ECG_ITS ---
Measurements Intervals [place] Rate: 97 P: 34 NH: 127 QRS: 31 QRSD: 84 T: 74 QT: 337 QTc: 429 Interpretive Statements SINUS RHYTHM BASELINE WANDER- II, III, AVL, AVF BORDERLINE ECG COMPARED TO ECG 12/05/2022 00:08:29 SINUS RHYTHM NOW PRESENT Electronically Signed On 02-17-2023 21:19:44 CDT by Jeremy Ibarra D.O.
[2023-02-17 15:08] LABS: Alveolar/Arterial O2 Gradient 113.2 mmHg; Base Excess ABG 3.5 mEq/l (+/-2.0); Fractional Inspired Oxygen 32 %; HCO3 ABG 27.6 mEq/l (22.0-26.0); Modified Allen's Test Pass; Oxygen Content ABG 18.5 %vol (16.0-22.0); Oxygen Saturation ABG 94.4 % (95.0-100.0); Oxyhemoglobin 92.7 % THb (90.0-100.0); PCO2 ABG 40.3 mmHg (35.0-45.0); PO2 ABG 67.8 mmHg (80.0-100.0); PO2 FiO2 Ratio Arterial Blood 2.12 %; Site Drawn LEFT RADIAL; Total Hemoglobin 14.2 g/dL (12.0-18.0); pH ABG 7.454 (7.350-7.450)
[2023-02-17 15:09] LABS: Device NASAL CANNULA
[2023-02-17 15:14] LABS: Basophils Absolute Auto 0.1 K/mm3 (0.0-0.1); Basophils Percent Auto 0.6 % (0.2-1.2); Eosinophils Absolute Auto 0.1 K/mm3 (0-0.3); Eosinophils Percent Auto 1.1 % (0-4.4); Hematocrit 42.1 % (42.0-52.0); Hemoglobin 13.6 g/dL (14.0-18.0); Immature Granulocyte Absolute 0.01 K/mm3 (0.00-0.031); Immature Granulocyte Percent A 0.1 % (0-0.5); Lymphocytes Absolute Auto 1.06 K/mm3 (0.9-3.2); Lymphocytes Percent Auto 12.5 % (18.3-44.2); Mean Corpuscular HGB Conc 32.3 g/dl (32-36); Mean Corpuscular Hemoglobin 31.1 pg (26-34); Mean Corpuscular Volume 96.1 fl (80-100); Mean Platelet Volume 10.8 fl (7.4-10.4); Monocytes Absolute Auto 0.6 K/mm3 (0.1-0.6); Monocytes Percent Auto 6.6 % (2.6-8.5); Neutrophils Absolute Auto 6.7 K/mm3 (1.3-6.7); Neutrophils Percent Auto 79.1 % (45.5-73.1); Platelet Count Result 297 k/mm3 (150-375); Red Blood Count 4.38 M/mm3 (4.6-6.20); Red Cell Distribution Width 15.7 % (11.5-14.5); White Blood Count 8.5 K/mm3 (4.5-10.0)
[2023-02-17 15:26] LABS: INR 0.9; Partial Thromboplastin Time 25.2 SECONDS (22.3-36.8); Prothrombin Time 12.9 Seconds (11.1-14.7)
[2023-02-17 15:28] LABS: Lactic Acid Reflex 0.9 mmol/L (0.7-2.0)
[2023-02-17] MEDS: SODIUM CHLORIDE 0.9% IV 1,000 ML 999 ML IV CONT (15:29)
[2023-02-17 15:31] LABS: Alanine Aminotransferase 21 U/L (6-50); Albumin Level 4.7 g/dL (3.5-5.1); Alkaline Phosphatase 72 U/L (38-126); Anion Gap 6 mmol/L (8-16); Aspartate Amino Transferase 23 U/L (17-59); Blood Urea Nitrogen 19 mg/dL (9-20); Calcium 9.6 mg/dL (8.4-10.2); Carbon Dioxide 30 mmol/L (22-30); Chloride 104 mmol/L (98-107); Estimated CRCL calculation 122 ml/min; Estimated Glomerular Filt Rate > 60; Glucose 102 mg/dL (65-110); Magnesium 2.2 mg/dL (1.6-2.3); Sodium 140 mmol/L (137-145)
[2023-02-17 15:40] LABS: NT Pro B Type Natriuretic Pept 90 pg/mL (19.9-100); Troponin I < 0.012 ng/mL (0.000-0.034)
--- NOTE | 2023-02-17 15:43 | ED.SOB ---
HPI - SOB/Dyspnea General Chief Complaint: Shortness of Breath/Dyspnea Stated Complaint: SOB, pain all over Time Seen by Provider: 02/17/23 14:47 History of Present Illness HPI Narrative: 63-year-old male here for evaluation of shortness of breath, productive cough, generalized malaise x1 day. Patient states that he has body aches, particularly worse in his left shoulder. He has had a cough productive of purulent sputum. He has had shortness of breath with minimal exertion. Had a temperature of 99.8 in triage, did take 650 of Tylenol at noon today. Patient was hospitalized for pneumonia with severe hypoxemic respiratory failure and was intubated in the ICU in November of this year. Related Data Home Medications Medication Instructions Recorded Confirmed hydrocodone 5 mg-acetaminophen 325 1 tablet PO Q6H PRN Pain 05/22/22 01/16/23 mg tablet albuterol sulfate 2.5 mg/3 mL 2.5 mg inhalation Q4-6H PRN 11/20/22 01/16/23 (0.083 %) solution for nebulization Shortness Of Breath Or Wheezing albuterol sulfate 90 mcg/actuation 1 - 2 puff inhalation Q4-6H PRN 11/20/22 01/16/23 aerosol inhaler (Ventolin HFA) Shortness Of Breath Or Wheezing latanoprost 0.005 % eye drops 1 drp EACH EYE DAILY 11/20/22 01/16/23 Allergies Allergy/AdvReac Type Severity Reaction Status Date / Time No Known Allergies Allergy Verified 01/16/23 09:42 Review of Systems Review of Systems: Gen.: Denies fevers or chills Eyes: Denies eye pain or visual change ENT: Denies congestion Respiratory: Denies shortness of breath or cough CV: Denies chest pain or palpitations GI: Denies abdominal pain nausea, emesis or diarrhea denies burning, urgency, frequency or hematuria Musculoskeletal: Denies back pain or muscle pain Neuro: Denies numbness, tingling, weakness or focal weakness Skin: Denies rash Except as documented, all other systems reviewed and negative [facility] Past Medical History Medical History BPH (benign prostatic hyperplasia) Chronic deep vein thrombosis (DVT) Linear echogenic filling defect in the right femoral vein, likely chronic thrombus on venous dopplers 11/2020. Chronic respiratory failure with hypoxia, on home oxygen therapy COPD with emphysema Chronic steroid therapy, 10 milligrams prednisone daily. Gastroesophageal reflux disease Hiatal hernia Osteoarthritis Pneumonia Surgical History Surgical History H/O colonoscopy History of bilateral cataract extraction History of lung surgery Family History Family History Father Acute myocardial infarction Congestive heart failure Lung cancer Mother Diabetes mellitus Dementia Sibling Diabetes mellitus Lung cancer Social History Social History (Updated 01/16/23 @ 09:37 by Manuela Partida MA) Social History: Surrogate decision maker: [place], . Code status: Full code. Smoking packs per day: 1 Smoking cigarettes per day: 20.0 Years smoked: 48 Smoking pack-years: 48.00 Smoking status: Former smoker Tobacco type: cigarettes Second hand tobacco smoke exposure: Yes Additional smoking assessment comments: pt used to smoke cigarettes and crack cocaine for 38 years Quit december 2017 Alcohol intake: current Drinks per week: 2 Alcohol use details: Patient currently drinks 2 beers and a shot on the weekends Substance use: former Substance use type: crack/cocaine Living arrangements: with family Additional living arrangements comments: Patient lives with his in [place]. 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 Gender identity (if verbalized by the patient): Male Sexual Orientation (if Verbalized by the Patient): Straight or Heterosexual Spiritual care concerns:
[2023-02-17 15:50] LABS: Influenza A QL RT-PCR Negative (Negative); Influenza B QL RT-PCR Negative (Negative); SARS-CoV-2 RNA PCR Negative (Negative)
[2023-02-17] MEDS: IPRATROPIUM BR 0.02% INH SOLN 0.5 MG/2.5 ML VIAL INHALATION (15:59)
[2023-02-17] MEDS: LEVALBUTEROL NEB 1.25 MG/3 ML INHALATION (16:00)
[2023-02-17 16:56] LABS: Appearance Urine Clear (Clear); Bilirubin Urine Negative (Negative); Blood Urine Negative (Negative); Color Urine Yellow (Yellow); Glucose Urine UA Negative (Negative); Ketones Urine Trace mg/dL (Negative); Leukocyte Esterase Ur Negative LEU/UL (Negative); Nitrate Urine Negative (Negative); Protein Urine Negative (Negative); Urobilinogen Urine 0.2 mg/dL (<2.0); pH Urine 6.5 (5.0-9.0)
[2023-02-17 17:01] LABS: Specific Grav Ur 1.046 (1.001-1.035)
[2023-02-17 17:02] LABS: Add Urine Microscopic? NO
[2023-02-17] MEDS: methylPREDNISolone SOD SUCC 125 MG VIAL IV PUSH (17:22)
[2023-02-17] MEDS: MORPHINE SULFATE (*CRX) 2 MG/ML INJ IV PUSH (18:49)
[2023-02-17 19:12] LABS: Troponin I < 0.012 ng/mL (0.000-0.034)
== END 2023-02-17 19:39 | disposition home or self-care (01) ==
PROVIDERS: Emergency Provider Physician Assistant; PCP Physician Assistant
DX: J43.9 Emphysema, unspecified (principal); Z20.822 Contact with and (suspected) exposure to COVID-19; J96.11 Chronic respiratory failure with hypoxia; N40.0 Benign prostatic hyperplasia without lower urinary tract symptoms; K21.9 Gastro-esophageal reflux disease without esophagitis; M19.90 Unspecified osteoarthritis, unspecified site; Z99.81 Dependence on supplemental oxygen; Z87.01 Personal history of pneumonia (recurrent); Z86.718 Personal history of other venous thrombosis and embolism; Z87.891 Personal history of nicotine dependence; Z98.42 Cataract extraction status, left eye; Z98.41 Cataract extraction status, right eye; Z79.82 Long term (current) use of aspirin; R00.0 Tachycardia, unspecified; J98.19 Other pulmonary collapse
CPT/HCPCS: 36415; 36600; 71045; 71275; 80053; 81003; 82805; 83605; 83735; 83880; 84484; 85025; 85610; 85730; 87040; 87070; 87205; 87636; 93005; 94640; 96365; 96367; 96375; 99284; J0456; J0696; J2270; J2930; J7030; Q9967

== ENCOUNTER 2023-05-05 12:57 | Emergency (ER) | payer MEDICARE, MEDICAID, SELFPAY ==
--- NOTE | ~2023-05-05 | XR_ITS ---
XR chest 2V 05/05/2023 14:13 Indication: Shortness of breath Procedure: PA and lateral views of the chest Comparison: Comparison to multiple prior studies sequentially, with oldest reviewed study dated 11/30. Findings: Heart size normal. There is chronic right upper lobe atelectasis with endobronchial valves present. There is chronic right basilar atelectasis/scarring. The lungs are hyperinflated which is co nsistent with, but not diagnostic of chronic obstructive pulmonary disease. Chronic small right pleur al effusion. Impression: 1: No significant interval change. Reviewed, dictated and finalized at location A. Impression: 1: No significant interval change.
[2023-05-05 13:01] VITALS: BP 149/107; PULSE 115; RESP 27; TEMP 37; O2SAT 91
[2023-05-05 13:06] VITALS: PULSE 95; O2SAT 94
--- NOTE | 2023-05-05 13:31 | ECG_ITS ---
Measurements Intervals [place] Rate: 84 P: -1 CO: 112 QRS: 32 QRSD: 103 T: 65 QT: 329 QTc: 390 Interpretive Statements SINUS RHYTHM WITH SHORT CO INTERVAL BORDERLINE ECG COMPARED TO ECG 02/17/2023 14:55:07 SINUS RHYTHM NOW PRESENT Electronically Signed On 05-05-2023 16:23:51 CDT by Jeremy Ibarra D.O.
[2023-05-05] MEDS: ALBUTEROL SULFATE NEB 2.5 MG/3 ML INH 5 MG INHALATION (13:42)
[2023-05-05 13:43] VITALS: PULSE 78; RESP 19
[2023-05-05] MEDS: methylPREDNISolone SOD SUCC 125 MG VIAL IV PUSH (13:49)
[2023-05-05 13:50] LABS: Basophils Absolute Auto 0.1 K/mm3 (0.0-0.1); Basophils Percent Auto 1.3 % (0.2-1.2); Eosinophils Percent Auto 0.9 % (0-4.4); Hematocrit 43.2 % (42.0-52.0); Hemoglobin 13.7 g/dL (14.0-18.0); Immature Granulocyte Absolute 0.01 K/mm3 (0.00-0.031); Immature Granulocyte Percent A 0.2 % (0-0.5); Lymphocytes Absolute Auto 0.73 K/mm3 (0.9-3.2); Lymphocytes Percent Auto 15.7 % (18.3-44.2); Mean Corpuscular HGB Conc 31.7 g/dl (32-36); Mean Corpuscular Volume 94.7 fl (80-100); Mean Platelet Volume 11.1 fl (7.4-10.4); Monocytes Absolute Auto 0.3 K/mm3 (0.1-0.6); Monocytes Percent Auto 7.1 % (2.6-8.5); Neutrophils Absolute Auto 3.5 K/mm3 (1.3-6.7); Neutrophils Percent Auto 74.8 % (45.5-73.1); Platelet Count Result 312 k/mm3 (150-375); Red Blood Count 4.56 M/mm3 (4.6-6.20); Red Cell Distribution Width 13.7 % (11.5-14.5); White Blood Count 4.7 K/mm3 (4.5-10.0)
--- NOTE | 2023-05-05 13:50 | ED.GENADULT ---
HPI - General Adult General Chief complaint: Shortness of Breath/Dyspnea Stated complaint: SOB Time Seen by Provider: 05/05/23 13:01 History of Present Illness HPI narrative: 63-year-old male with history of COPD presented the emergency department for evaluation of worsening shortness of breath. Patient denies any associated chest pain. Patient states that he does feel this is a COPD exacerbation. Patient typically does have follow-up with pulmonology. Patient has been attempting breathing treatments at home with no significant improvement. Patient does have a prior history of serious pneumonia during which he was in the ICU on a ventilator. Patient follows up with Dr. Hummel Related Data Home Medications Medication Instructions Recorded Confirmed hydrocodone 5 mg-acetaminophen 325 1 tablet PO Q6H PRN Pain 05/22/22 03/07/23 mg tablet latanoprost 0.005 % eye drops 1 drp EACH EYE DAILY 11/20/22 03/07/23 Allergies Allergy/AdvReac Type Severity Reaction Status Date / Time oxycodone AdvReac Itching Verified 05/05/23 13:05 Review of Systems Review of Systems: All systems reviewed & are unremarkable except as noted in HPI and below PMFSH Past Medical History Medical History BPH (benign prostatic hyperplasia) Chronic deep vein thrombosis (DVT) Linear echogenic filling defect in the right femoral vein, likely chronic thrombus on venous dopplers 11/2020. Chronic respiratory failure with hypoxia, on home oxygen therapy COPD with emphysema Chronic steroid therapy, 10 milligrams prednisone daily. Gastroesophageal reflux disease Hiatal hernia Osteoarthritis Pneumonia Surgical History Surgical History H/O colonoscopy History of bilateral cataract extraction History of lung surgery Family History Family History Father Acute myocardial infarction Congestive heart failure Lung cancer Mother Diabetes mellitus Dementia Sibling Diabetes mellitus Lung cancer Social History Social History Social History: Surrogate decision maker: [place], . Code status: Full code. Smoking packs per day: 1 Smoking cigarettes per day: 20.0 Years smoked: 48 Smoking pack-years: 48.00 Smoking status: Former smoker Tobacco type: cigarettes Second hand tobacco smoke exposure: Yes Additional smoking assessment comments: pt used to smoke cigarettes and crack cocaine for 38 years Quit december 2017 Alcohol intake: current Drinks per week: 2 Alcohol use details: Patient currently drinks 2 beers and a shot on the weekends Substance use: former Substance use type: crack/cocaine Living arrangements: with family Additional living arrangements comments: Patient lives with his in [place]. 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 Gender identity (if verbalized by the patient): Male Sexual Orientation (if Verbalized by the Patient): Straight or Heterosexual Spiritual care concerns: No Exam Narrative: APPEARANCE: Well appearing, no pain, no distress, well-nourished. HEAD: normocephalic, atraumatic. EYES: PERRLA/EOMI, conjunctivae clear. NOSE: Normal no drainage EARS:TMS clear with good light reflex. THROAT: Pharynx clear, no exudate. NECK: Supple. No adenopathy, no masses. RESPIRATORY: Decreased air movement and wheeze bilaterally CARDIOVASCULAR: Regular rate and rhythm without murmurs rubs or gallops. ABDOMINAL: Soft, nontender, nondistended, normal bowel sounds MUSCULOSKELETAL: Moves all extremities. Strength/ROM intact, No edema, No calf tenderness. NEURO: Alert. Cranial nerves II through XII intact. Grossly intact SKIN: Warm, dry. Normal Color Course C
[2023-05-05 13:59] VITALS: PULSE 76; RESP 18
[2023-05-05 14:49] LABS: Alanine Aminotransferase 25 U/L (6-50); Albumin Level 4.5 g/dL (3.5-5.1); Alkaline Phosphatase 95 U/L (38-126); Anion Gap 6 mmol/L (8-16); Aspartate Amino Transferase 27 U/L (17-59); Bilirubin,Total 0.5 mg/dL (0.2-1.3); Blood Urea Nitrogen 20 mg/dL (9-20); Calcium 9.6 mg/dL (8.4-10.2); Carbon Dioxide 27 mmol/L (22-30); Chloride 106 mmol/L (98-107); Estimated CRCL calculation 94 ml/min; Estimated Glomerular Filt Rate > 60; Glucose 98 mg/dL (65-110); Potassium 4.7 mmol/L (3.4-5.0); Sodium 139 mmol/L (137-145)
[2023-05-05 16:15] VITALS: BP 141/93; PULSE 86; RESP 20; O2SAT 98
[2023-05-05] MEDS: predniSONE 40 MG, predniSONE 10 MG 50 MG PO (16:15)
== END 2023-05-05 16:16 | disposition home or self-care (01) ==
PROVIDERS: Emergency Provider Emergency Medicine; PCP Physician Assistant
DX: J43.9 Emphysema, unspecified (principal); J96.11 Chronic respiratory failure with hypoxia; N40.0 Benign prostatic hyperplasia without lower urinary tract symptoms; K21.9 Gastro-esophageal reflux disease without esophagitis; M19.90 Unspecified osteoarthritis, unspecified site; Z99.81 Dependence on supplemental oxygen; Z87.01 Personal history of pneumonia (recurrent); Z86.718 Personal history of other venous thrombosis and embolism; Z87.891 Personal history of nicotine dependence; Z98.42 Cataract extraction status, left eye; Z98.41 Cataract extraction status, right eye
CPT/HCPCS: 36415; 71046; 80053; 85025; 93005; 94640; 96374; 99284; J2930; J7512

== ENCOUNTER 2023-07-18 10:20 | Emergency (ER) | payer MEDICARE, MEDICAID, SELFPAY ==
--- NOTE | ~2023-07-18 | XR_ITS ---
EXAMINATION: XR chest 2V DATE: 07/18/2023 11:14 INDICATION: Chest pain and shortness of breath TECHNIQUE: PA and lateral views of the chest are obtained. COMPARISON: 05/05/2023 FINDINGS: The lungs are free of acute opacities. No pleural effusion or pneumothorax. The cardiomedia stinal silhouette is normal. There are bridging osteophytes at multiple levels in the spine, consiste nt with diffuse idiopathic skeletal hyperostosis (DISH). Again noted are endobronchial valves in the right upper lobe which result in chronic, complete collapse of the upper lobe. IMPRESSION: 1. No acute cardiopulmonary abnormality. Reviewed, dictated and finalized at location A.
--- NOTE | 2023-07-18 10:21 | ECG_ITS ---
Measurements Intervals [place] Rate: 79 P: 33 MI: 134 QRS: 36 QRSD: 84 T: 66 QT: 342 QTc: 392 Interpretive Statements SINUS RHYTHM COMPARED TO ECG 05/05/2023 13:07:14 NO SIGNIFICANT CHANGES Electronically Signed On 07-18-2023 12:47:09 CDT by Colleen Sawyer M.D.
[2023-07-18 10:28] VITALS: BP 124/87; PULSE 87; RESP 16; TEMP 36.8; O2SAT 100
[2023-07-18 11:06] LABS: Basophils Absolute Auto 0.1 K/mm3 (0.0-0.1); Basophils Percent Auto 1.5 % (0.2-1.2); Eosinophils Absolute Auto 0.1 K/mm3 (0-0.3); Eosinophils Percent Auto 1.9 % (0-4.4); Hematocrit 45.6 % (42.0-52.0); Hemoglobin 14.8 g/dL (14.0-18.0); Immature Granulocyte Absolute 0.01 K/mm3 (0.00-0.031); Immature Granulocyte Percent A 0.2 % (0-0.5); Lymphocytes Absolute Auto 0.98 K/mm3 (0.9-3.2); Lymphocytes Percent Auto 20.8 % (18.3-44.2); Mean Corpuscular HGB Conc 32.5 g/dl (32-36); Mean Corpuscular Hemoglobin 31.4 pg (26-34); Mean Corpuscular Volume 96.8 fl (80-100); Monocytes Absolute Auto 0.4 K/mm3 (0.1-0.6); Monocytes Percent Auto 8.1 % (2.6-8.5); Neutrophils Absolute Auto 3.2 K/mm3 (1.3-6.7); Neutrophils Percent Auto 67.5 % (45.5-73.1); Platelet Count Result 295 k/mm3 (150-375); Red Blood Count 4.71 M/mm3 (4.6-6.20); Red Cell Distribution Width 14.4 % (11.5-14.5); White Blood Count 4.7 K/mm3 (4.5-10.0)
[2023-07-18 11:17] LABS: Prothrombin Time 13.7 Seconds (11.1-14.7)
[2023-07-18 11:18] LABS: Alanine Aminotransferase 28 U/L (6-50); Albumin Level 4.7 g/dL (3.5-5.1); Alkaline Phosphatase 73 U/L (38-126); Anion Gap 9 mmol/L (8-16); Aspartate Amino Transferase 29 U/L (17-59); Bilirubin,Total 0.8 mg/dL (0.2-1.3); Blood Urea Nitrogen 21 mg/dL (9-20); Calcium 9.5 mg/dL (8.4-10.2); Carbon Dioxide 26 mmol/L (22-30); Chloride 105 mmol/L (98-107); Estimated CRCL calculation 95 ml/min; Estimated Glomerular Filt Rate > 60; Glucose 112 mg/dL (65-110); Lipase 85 U/L (23-300); Partial Thromboplastin Time 27.3 SECONDS (22.3-36.8); Potassium 4.1 mmol/L (3.4-5.0); Sodium 140 mmol/L (137-145)
[2023-07-18 11:29] LABS: Troponin I < 0.012 ng/mL (0.000-0.034)
[2023-07-18 12:09] VITALS: O2SAT 100
--- NOTE | 2023-07-18 12:56 | ED.CHESTPAIN ---
HPI - Chest Pain General Chief Complaint: Chest Pain Stated Complaint: Chestpains, SOB Time Seen by Provider: 07/18/23 12:52 History of Present Illness HPI narrative: Patient is a 63-year-old male with history of COPD on 3L nasal cannula, DVT, former smoker here with cough and increased sputum production. Patient states that symptoms have been present for about 1 week. He does note that he has some chest tightness with coughing but it resolves at rest. He states that he has had increased sputum production of yellow thick sputum. He appreciates this every 4-5 months with seasons change and is typically treated with steroids and breathing treatment and discharged home on antibiotics. He does follow with a metal expediter and weigh box tender. He notes that he is not currently on any blood thinners, they were discontinued by his primary care doctor. No lower extremity swelling or pain. No increased oxygen requirement. Related Data Home Medications Medication Instructions Recorded Confirmed hydrocodone 5 mg-acetaminophen 325 1 tablet PO Q6H PRN Pain 05/22/22 07/18/23 mg tablet latanoprost 0.005 % eye drops 1 drp EACH EYE DAILY 11/20/22 07/18/23 prednisone 5 mg tablet 2.5 mg PO DAILY 07/18/23 07/18/23 Allergies Allergy/AdvReac Type Severity Reaction Status Date / Time oxycodone AdvReac Itching Verified 07/18/23 08:59 Review of Systems Review of Systems: All systems reviewed & are unremarkable except as noted in HPI and below PMFSH Past Medical History Medical History BPH (benign prostatic hyperplasia) Chronic deep vein thrombosis (DVT) Linear echogenic filling defect in the right femoral vein, likely chronic thrombus on venous dopplers 11/2020. Chronic respiratory failure with hypoxia, on home oxygen therapy COPD with emphysema Chronic steroid therapy, 10 milligrams prednisone daily. Gastroesophageal reflux disease Hiatal hernia Osteoarthritis Pneumonia Surgical History Surgical History H/O colonoscopy History of bilateral cataract extraction History of lung surgery Family History Family History Father Acute myocardial infarction Congestive heart failure Lung cancer Mother Diabetes mellitus Dementia Sibling Diabetes mellitus Lung cancer Social History Social History Social History: Surrogate decision maker: [place], . Code status: Full code. Smoking packs per day: 1 Smoking cigarettes per day: 20.0 Years smoked: 48 Smoking pack-years: 48.00 Smoking status: Former smoker Tobacco type: cigarettes Second hand tobacco smoke exposure: Yes Additional smoking assessment comments: pt used to smoke cigarettes and crack cocaine for 38 years Quit december 2017 Alcohol intake: current Drinks per week: 2 Alcohol use details: Patient currently drinks 2 beers and a shot on the weekends Substance use: former Substance use type: crack/cocaine Living arrangements: with family Additional living arrangements comments: Patient lives with his in [place]. 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 Gender identity (if verbalized by the patient): Male Sexual Orientation (if Verbalized by the Patient): Straight or Heterosexual Spiritual care concerns: No Exam Narrative: GENERAL: Well-appearing, well-nourished, and in no acute distress. HEAD: Normocephalic, atraumatic. EYES: PERRLA and EOMI. ENT: Nares clear. Mucous membranes moist. On 3L NC NECK: Supple. CHEST: Clear to auscultation. No respiratory distress. HEART: Regular rate and rhythm. Normal peripheral pulses. ABDOMEN: Soft, nontender, nondistended. EXTREMITIES: Normal range of motion
[2023-07-18 13:25] VITALS: PULSE 83; RESP 18
[2023-07-18] MEDS: IPRATROPIUM BR 0.02% INH SOLN 0.5 MG/2.5 ML VIAL INHALATION (13:29)
[2023-07-18] MEDS: ALBUTEROL SULFATE NEB 2.5 MG/3 ML INH INHALATION (13:29)
[2023-07-18 13:33] VITALS: PULSE 81; RESP 18
[2023-07-18] MEDS: AMOXICILLIN/CLAVULANATE K 875-125 MG TAB 1 TABLET PO (13:37)
[2023-07-18] MEDS: predniSONE 20 MG TABLET 40 MG PO (13:37)
[2023-07-18 13:54] VITALS: BP 110/77; PULSE 85; RESP 17; O2SAT 100
[2023-07-18 14:09] LABS: Troponin I < 0.012 ng/mL (0.000-0.034)
[2023-07-18 14:16] VITALS: BP 126/82; PULSE 88; RESP 17; O2SAT 100
== END 2023-07-18 14:17 | disposition home or self-care (01) ==
PROVIDERS: Preventive Medicine Aerospace Medicine; Emergency Provider Student in an Organized Health Care Education/Training Program; PCP Physician Assistant
DX: J43.9 Emphysema, unspecified (principal); R07.89 Other chest pain; J96.11 Chronic respiratory failure with hypoxia; N40.0 Benign prostatic hyperplasia without lower urinary tract symptoms; K21.9 Gastro-esophageal reflux disease without esophagitis; M19.90 Unspecified osteoarthritis, unspecified site; Z99.81 Dependence on supplemental oxygen; Z87.01 Personal history of pneumonia (recurrent); Z86.718 Personal history of other venous thrombosis and embolism; Z87.891 Personal history of nicotine dependence; Z98.42 Cataract extraction status, left eye; Z98.41 Cataract extraction status, right eye
CPT/HCPCS: 36415; 71046; 80053; 83690; 84484; 85025; 85610; 85730; 93005; 94640; 99284; A9270; J7512

== ENCOUNTER 2023-10-24 11:02 | Emergency (ER) | payer MEDICARE, MEDICAID, SELFPAY ==
[2023-10-24] VITALS (8 sets, daily range): BP systolic 128–143; BP diastolic 83–102; PULSE 94–107; RESP 17–25; TEMP 36.6–36.8; O2SAT 98–100
--- NOTE | ~2023-10-24 | XR_ITS ---
EXAMINATION: XR chest 2V DATE: 10/24/2023 12:33 INDICATION: Chest pain. Shortness of breath. TECHNIQUE: Frontal and lateral views of the chest were obtained. COMPARISON: Chest 2 views 07/18/2023, chest CT 02/17/2023 FINDINGS: There are lucencies in the lungs, consistent with emphysema. There is chronic collapse of r ight lung upper lobe with endobronchial valves. There is mild atelectasis in right lower lung zone. N o pleural effusion or pneumothorax. The heart size is normal. IMPRESSION: 1. Emphysema. 2. 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 3. Mild atelectasis in right lower lung zone. Reviewed, dictated and finalized at location A. ER TRIMMER HAND
--- NOTE | 2023-10-24 11:05 | ECG_ITS ---
Measurements Intervals [place] Rate: 100 P: 84 DE: 170 QRS: 50 QRSD: 75 T: 76 QT: 320 QTc: 413 Interpretive Statements SINUS TACHYCARDIA BORDERLINE ECG COMPARED TO ECG 07/18/2023 10:25:14 SINUS TACHYCARDIA NOW PRESENT Electronically Signed On 10-24-2023 15:06:56 DROP PIT WORKER by Jeremy Ibarra D.O.
[2023-10-24 11:22] LABS: Basophils Absolute Auto 0.1 K/mm3 (0.0-0.1); Basophils Percent Auto 0.9 % (0.2-1.2); Eosinophils Absolute Auto 0.1 K/mm3 (0-0.3); Eosinophils Percent Auto 1.5 % (0-4.4); Hematocrit 44.5 % (42.0-52.0); Hemoglobin 14.2 g/dL (14.0-18.0); Immature Granulocyte Absolute 0.01 K/mm3 (0.00-0.031); Immature Granulocyte Percent A 0.2 % (0-0.5); Lymphocytes Absolute Auto 0.95 K/mm3 (0.9-3.2); Lymphocytes Percent Auto 17.8 % (18.3-44.2); Mean Corpuscular HGB Conc 31.9 g/dl (32-36); Mean Corpuscular Hemoglobin 31.3 pg (26-34); Mean Platelet Volume 10.3 fl (7.4-10.4); Monocytes Absolute Auto 0.5 K/mm3 (0.1-0.6); Monocytes Percent Auto 9.7 % (2.6-8.5); Neutrophils Absolute Auto 3.7 K/mm3 (1.3-6.7); Neutrophils Percent Auto 69.9 % (45.5-73.1); Platelet Count Result 273 k/mm3 (150-375); Red Blood Count 4.54 M/mm3 (4.6-6.20); Red Cell Distribution Width 13.8 % (11.5-14.5); White Blood Count 5.4 K/mm3 (4.5-10.0)
[2023-10-24 11:31] LABS: Alanine Aminotransferase 22 U/L (6-50); Albumin Level 4.4 g/dL (3.5-5.1); Alkaline Phosphatase 66 U/L (38-126); Anion Gap 8 mmol/L (8-16); Aspartate Amino Transferase 25 U/L (17-59); Bilirubin,Total 0.6 mg/dL (0.2-1.3); Blood Urea Nitrogen 20 mg/dL (9-20); Calcium 9.6 mg/dL (8.4-10.2); Carbon Dioxide 27 mmol/L (22-30); Chloride 107 mmol/L (98-107); Estimated CRCL calculation 97 ml/min; Estimated Glomerular Filt Rate > 60; Glucose 116 mg/dL (65-110); Lipase 52 U/L (23-300); Sodium 142 mmol/L (137-145)
[2023-10-24 11:43] LABS: Troponin I < 0.012 ng/mL (0.000-0.034)
[2023-10-24 11:44] LABS: Prothrombin Time 13.1 Seconds (11.1-14.7)
[2023-10-24 11:45] LABS: Partial Thromboplastin Time 27.7 SECONDS (22.3-36.8)
--- NOTE | 2023-10-24 14:15 | ECG_ITS ---
Measurements Intervals [place] Rate: 100 P: 83 NC: 169 QRS: 45 QRSD: 85 T: 75 QT: 326 QTc: 421 Interpretive Statements SINUS TACHYCARDIA BASELINE WANDER- AVL, V1 BORDERLINE ECG COMPARED TO ECG 10/24/2023 14:39:24 NO SIGNIFICANT CHANGES Electronically Signed On 10-24-2023 15:07:17 REALTIME REPORTER by Jeremy Ibarra D.O.
[2023-10-24 15:11] LABS: Troponin I < 0.012 ng/mL (0.000-0.034)
[2023-10-24] MEDS: LEVALBUTEROL NEB 1.25 MG/3 ML 2.5 MG INHALATION (15:34)
[2023-10-24] MEDS: IPRATROPIUM BR 0.02% INH SOLN 0.5 MG/2.5 ML VIAL 1.5 MG INHALATION (15:34)
--- NOTE | 2023-10-24 16:23 | ED.GENADULT ---
HPI - General Adult General Chief complaint: Chest Pain Stated complaint: TACHYCARDIA,SOB,CHEST PAIN Time Seen by Provider: 10/24/23 14:44 Source: patient Mode of arrival: ambulatory Limitations: no limitations History of Present Illness HPI narrative: Patient is a 63 y/o male, with PMH of COPD/emphysema, hx of DVT, chronic hypoxic resp failure on 3L NC, who presents to the ED with c/o Shortness breath. Patient reports he has frequent flare ups of his COPD. He sees Dr. Lanza with pulmonology and undergoes frequent pulmonary rehab. He states he typically requires a DuoNeb in the ED in addition to IV steroids and feels better, typically able to go home. He states it has been approximately 6 months since his last flare-up. Current symptoms feel similar to his typical exacerbations. He reports having increased difficulty breathing over the last couple of days. He also reports chest tightness. He has been using his home nebulizers and inhalers without improvement. Denies lower extremity pain or swelling, recent cough, congestion, fevers. Related Data Home Medications Medication Instructions Recorded Confirmed hydrocodone 5 mg-acetaminophen 325 1 tablet PO Q6H PRN Pain 05/22/22 08/22/23 mg tablet latanoprost 0.005 % eye drops 1 drp EACH EYE DAILY 11/20/22 08/22/23 Allergies Allergy/AdvReac Type Severity Reaction Status Date / Time oxycodone AdvReac Itching Verified 10/24/23 11:15 Review of Systems Review of Systems: CONSTITUTIONAL: Denies fever, chills, or sweats. ENT: Denies rhinorrhea, congestion, sore throat. CARDIOVASCULAR: See HPI. RESPIRATORY: See HPI. All systems reviewed & are unremarkable except as noted in HPI and below PMFSH Past Medical History Medical History BPH (benign prostatic hyperplasia) Chronic deep vein thrombosis (DVT) Linear echogenic filling defect in the right femoral vein, likely chronic thrombus on venous dopplers 11/2020. Chronic respiratory failure with hypoxia, on home oxygen therapy COPD with emphysema Chronic steroid therapy, 10 milligrams prednisone daily. Gastroesophageal reflux disease Hiatal hernia Osteoarthritis Pneumonia Surgical History Surgical History H/O colonoscopy History of bilateral cataract extraction History of lung surgery Family History Family History Father Acute myocardial infarction Congestive heart failure Lung cancer Mother Diabetes mellitus Dementia Sibling Diabetes mellitus Lung cancer Social History Social History Social History: Surrogate decision maker: [place], . Code status: Full code. Smoking packs per day: 1 Smoking cigarettes per day: 20.0 Years smoked: 48 Smoking pack-years: 48.00 Smoking status: Former smoker Tobacco type: cigarettes Second hand tobacco smoke exposure: Yes Additional smoking assessment comments: pt used to smoke cigarettes and crack cocaine for 38 years Quit december 2017 Alcohol intake: current Drinks per week: 2 Alcohol use details: Patient currently drinks 2 beers and a shot on the weekends Substance use: former Substance use type: crack/cocaine Living arrangements: with family Additional living arrangements comments: Patient lives with his in [place]. 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 Gender identity (if verbalized by the patient): Male Sexual Orientation (if Verbalized by the Patient): Straight or Heterosexual Spiritual care concerns: No Exam Narrative: GENERAL: Well appearing, obese with BMI of 33.3, non-toxic, in no acute distress. HEAD: Normocephalic, atraumatic. RESPIRATORY: [place]
[2023-10-24] MEDS: methylPREDNISolone SOD SUCC 125 MG VIAL IV PUSH (16:35)
[2023-10-24 16:57] LABS: D Dimer 0.27 ug/mL (<0.48)
[2023-10-24 18:51] LABS: Troponin I < 0.012 ng/mL (0.000-0.034)
--- NOTE | 2023-10-25 11:45 | ECG_ITS ---
Measurements Intervals [place] Rate: 106 P: ID: 0 QRS: 26 QRSD: 85 T: 125 QT: 313 QTc: 417 Interpretive Statements SINUS TACHYCARDIA BASELINE ARTIFACT- I, II, AVR, AVL, AVF, V1-V6 ABNORMAL ECG COMPARED TO ECG 10/24/2023 14:59:57 NO SIGNIFICANT CHANGES Electronically Signed On 10-25-2023 12:51:04 JOY OPERATOR HELPER by Jeremy Ibarra D.O.
== END 2023-10-24 18:48 | disposition home or self-care (01) ==
PROVIDERS: Emergency Medicine; Emergency Provider Physician Assistant; PCP Family Medicine
DX: J43.9 Emphysema, unspecified (principal); J96.11 Chronic respiratory failure with hypoxia; Z99.81 Dependence on supplemental oxygen; N40.0 Benign prostatic hyperplasia without lower urinary tract symptoms; K21.9 Gastro-esophageal reflux disease without esophagitis; M19.90 Unspecified osteoarthritis, unspecified site; Z86.718 Personal history of other venous thrombosis and embolism; Z87.01 Personal history of pneumonia (recurrent); Z87.891 Personal history of nicotine dependence; Z98.42 Cataract extraction status, left eye; Z98.41 Cataract extraction status, right eye
CPT/HCPCS: 36415; 71046; 80053; 83690; 84484; 85025; 85380; 85610; 85730; 93005; 94640; 96374; 99284; J2930

== ENCOUNTER 2023-10-29 19:11 | Inpatient (IN) | payer MEDICARE, MEDICAID, SELFPAY ==
[2023-10-29] VITALS (15 sets, daily range): BP systolic 121–155; BP diastolic 75–99; PULSE 108–169; RESP 20–33; TEMP 36.6–37.3; O2SAT 85–100; BMI 34.0
--- NOTE | ~2023-10-29 | XR_ITS ---
EXAMINATION: XR chest 1V portable DATE: 10/29/2023 20:33 INDICATION: Dyspnea. TECHNIQUE: A single frontal view of the chest was obtained. COMPARISON: Chest single view 10/24/2013 FINDINGS: There are lucencies in the lungs, consistent with emphysema. There is chronic collapse of r ight lung upper lobe with endobronchial valves. There is mild atelectasis in right lower lung zone. N o pleural effusion or pneumothorax. The heart size is normal. IMPRESSION: 1. Emphysema. 2. 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 3. Mild atelectasis in right lower lung zone. Reviewed, dictated and finalized at location E. ING MANAGER
--- NOTE | 2023-10-29 19:14 | ECG_ITS ---
Measurements Intervals [place] Rate: 121 P: [place]: 0 QRS: 58 QRSD: 86 T: 78 QT: 297 QTc: 422 Interpretive Statements SINUS TACHYCARDIA ABNORMAL ECG COMPARED TO ECG 10/24/2023 17:09:56 HEART RATE HAS INCREASED Electronically Signed On 10-30-2023 6:37:15 ETL DATABASE DEVELOPER by Jeremy Ibarra D.O.
--- NOTE | 2023-10-29 19:18 | ED.SOB ---
HPI - SOB/Dyspnea General Chief Complaint: Shortness of Breath/Dyspnea Stated Complaint: chest pain, sob Time Seen by Provider: 10/29/23 19:15 Source: patient, family and EMS Limitations: clinical condition History of Present Illness HPI Narrative: Patient is a 63-year-old male presents to the emergency department complaining of difficulty breathing. Patient is to history of COPD and has frequent flare ups and has been using his breathing treatments at home in addition to his Trelegy and does have a history of using noninvasive positive pressure ventilation. Patient denies any new exposures. Patient admits to some chest discomfort prior to arrival that has since resolved. Related Data Home Medications Medication Instructions Recorded Confirmed hydrocodone 5 mg-acetaminophen 325 1 tablet PO Q6H PRN Pain 05/22/22 10/29/23 mg tablet latanoprost 0.005 % eye drops 1 drp EACH EYE DAILY 11/20/22 10/29/23 fluticasone propionate 50 1 spray intranasal BID PRN 10/29/23 10/29/23 mcg/actuation nasal Allergic Symptoms spray,suspension omeprazole 20 mg capsule,delayed 20 mg PO DAILY 10/29/23 10/29/23 release Allergies Allergy/AdvReac Type Severity Reaction Status Date / Time oxycodone AdvReac Itching Verified 10/24/23 11:15 Review of Systems Review of Systems: A 10 system review of systems was completed on the patient and is negative except for what is stated in the HPI. Nursing and ancillary documentation was reviewed. [facility] Past Medical History Medical History BPH (benign prostatic hyperplasia) Chronic deep vein thrombosis (DVT) Linear echogenic filling defect in the right femoral vein, likely chronic thrombus on venous dopplers 11/2020. Chronic respiratory failure with hypoxia, on home oxygen therapy COPD with emphysema Chronic steroid therapy, 10 milligrams prednisone daily. Gastroesophageal reflux disease Hiatal hernia Osteoarthritis Pneumonia Surgical History Surgical History H/O colonoscopy History of bilateral cataract extraction History of lung surgery Family History Family History Father Acute myocardial infarction Congestive heart failure Lung cancer Mother Diabetes mellitus Dementia Sibling Diabetes mellitus Lung cancer Social History Social History Social History: Surrogate decision maker: [place], . Code status: Full code. Smoking packs per day: 1 Smoking cigarettes per day: 20.0 Years smoked: 48 Smoking pack-years: 48.00 Smoking status: Former smoker Tobacco type: cigarettes Second hand tobacco smoke exposure: Yes Additional smoking assessment comments: pt used to smoke cigarettes and crack cocaine for 38 years Quit december 2017 Alcohol intake: current Drinks per week: 2 Alcohol use details: Patient currently drinks 2 beers and a shot on the weekends Substance use: former Substance use type: crack/cocaine Do You Feel Safe in your Home?: Yes Lack of Transportation: No Lack of Food: Never True Current Housing: I Have Housing Concerned About Future Housing: No Difficulty Paying Gas/Electric Bills: No Difficulty Paying for Meds: No Currently Unemployed: No Education: Decline to Answer Difficulty w/ Childcare or Family Care: No Living arrangements: with family Additional living arrangements comments: Patient lives with his in [place]. 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 Gender identity (if verbalized by the patient): Male Sexual Orientation (if Verbalized by the Patient): Straight or Heterosexual Spiritual care concerns: No Comments At time of signature, I have r
[2023-10-29] MEDS: IPRATROPIUM 0.5 MG/ALBUTEROL SULFATE 2.5 MG AMPUL.NEB 3 ML INHALATION ×2 (19:27→22:14)
[2023-10-29] MEDS: methylPREDNISolone SOD SUCC 40 MG VIAL 120 MG IV PUSH (20:05)
[2023-10-29] MEDS: SODIUM CHLORIDE 0.9% IV 1,000 ML 999 ML IV CONT ×2 (20:06→22:04)
[2023-10-29 20:10] LABS: Basophils Percent Auto 0.2 % (0.2-1.2); Eosinophils Percent Auto 0.1 % (0-4.4); Hematocrit 44.4 % (42.0-52.0); Hemoglobin 14.1 g/dL (14.0-18.0); Immature Granulocyte Absolute 0.03 K/mm3 (0.00-0.031); Immature Granulocyte Percent A 0.2 % (0-0.5); Lymphocytes Percent Auto 6.5 % (18.3-44.2); Mean Corpuscular HGB Conc 31.8 g/dl (32-36); Mean Corpuscular Hemoglobin 31.4 pg (26-34); Mean Corpuscular Volume 98.9 fl (80-100); Mean Platelet Volume 10.7 fl (7.4-10.4); Monocytes Absolute Auto 0.9 K/mm3 (0.1-0.6); Monocytes Percent Auto 7.6 % (2.6-8.5); Neutrophils Absolute Auto 10.5 K/mm3 (1.3-6.7); Neutrophils Percent Auto 85.4 % (45.5-73.1); Platelet Count Result 269 k/mm3 (150-375); Red Blood Count 4.49 M/mm3 (4.6-6.20); Red Cell Distribution Width 13.9 % (11.5-14.5); White Blood Count 12.3 K/mm3 (4.5-10.0)
[2023-10-29 20:14] LABS: Influenza A QL RT-PCR Positive (Negative); Influenza B QL RT-PCR Negative (Negative); RSV RNA, RT-PCR Negative (Negative); SARS-CoV-2 RNA PCR Negative (Negative)
[2023-10-29 20:22] LABS: Alanine Aminotransferase 30 U/L (6-50); Albumin Level 4.4 g/dL (3.5-5.1); Alkaline Phosphatase 85 U/L (38-126); Anion Gap 6 mmol/L (8-16); Aspartate Amino Transferase 32 U/L (17-59); Bilirubin,Total 0.9 mg/dL (0.2-1.3); Blood Urea Nitrogen 15 mg/dL (9-20); Calcium 9.4 mg/dL (8.4-10.2); Carbon Dioxide 32 mmol/L (22-30); Chloride 104 mmol/L (98-107); Estimated CRCL calculation 110 ml/min; Estimated Glomerular Filt Rate > 60; Glucose 100 mg/dL (65-110); Magnesium 2.1 mg/dL (1.6-2.3); Potassium 3.8 mmol/L (3.4-5.0); Sodium 142 mmol/L (137-145)
[2023-10-29 20:33] LABS: NT Pro B Type Natriuretic Pept 160 pg/mL (19.9-100); Troponin I < 0.012 ng/mL (0.000-0.034)
[2023-10-29 20:34] LABS: Troponin I < 0.012 ng/mL (0.000-0.034)
--- NOTE | 2023-10-29 22:01 | ECG_ITS ---
Measurements Intervals [place] Rate: 146 P: [place]: 0 QRS: 62 QRSD: 85 T: 79 QT: 278 QTc: 434 Interpretive Statements PROBABLY SINUS TACHYCARDIA (SIGNIFICANT BASELINE ARTIFACT) NONSPECIFIC ST & T-WAVE ABNORMALITY- INFERIOR LEADS BASELINE ARTIFACT- I, II, III, AVR, AVL, AVF, V1-V6 ABNORMAL ECG COMPARED TO ECG 10/24/2023 17:09:56 HEART RATE HAS INCREASED ST-T WAVE ABNORMALITY NOW PRESENT Electronically Signed On 10-30-2023 7:35:47 OSTEOPATHIC PHYSICIAN by Jeremy Ibarra D.O.
[2023-10-29] MEDS: LORazepam INJ (*CRX) 2 MG/ML VIAL 0.5 MG IV PUSH (22:04)
[2023-10-29] MEDS: OSELTAMIVIR PHOSPHATE 75 MG CAPSULE PO (22:04)
--- NOTE | 2023-10-29 22:27 | PM.IMHP ---
H&P: HPI History of Present Illness Date/Time: 10/29/23 22:27 Chief Complaint: sob Narrative: This is a 63-year-old male with past medical history significant for chronic hypoxic respiratory failure on supplemental oxygen, home vent at home, COPD/emphysema, chronic collapse of right upper lobe, GERD. patient presents to the emergency room due to worsening shortness of breath in spite of using his nebulizer his oxygen his Trelegy, cough. in emergency room patient's tested positive for influenza type A tested negative for influenza type B RSV and COVID. Upon arrival to emergency room patient required the need of BiPAP he was able to we weaned off to supplemental oxygen by nasal cannula. A chest x-ray was reported as: TECHNIQUE: A single frontal view of the chest was obtained. COMPARISON: Chest single view 10/24/2013 FINDINGS: There are lucencies in the lungs, consistent with emphysema. There is chronic collapse of right lung upper lobe with endobronchial valves. There is mild atelectasis in right lower lung zone. No pleural effusion or pneumothorax. The heart size is normal. IMPRESSION: 1. Emphysema. 2. 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 3. Mild atelectasis in right lower lung zone. patient has been admitted for further evaluation management and treatment. Review of Systems Review of Systems: Shortness of breath, fatigue Constitutional: Constitutional: Denies chills, Reports fatigue, Denies fever(s) and Denies malaise Eyes: Eyes: Denies change in vision ENT: Denies dysphagia and Denies odynophagia Cardiovascular: Cardiovascular: Denies chest pain, Denies radiating jaw, neck or arm pain and Denies palpitations Respiratory: Respiratory: Reports cough, Reports dyspnea and Reports wheezing Gastrointestinal: Gastrointestinal: Denies abdominal pain, Denies dyspepsia, Denies nausea and Denies vomiting Genitourinary: Genitourinary: Denies dysuria Musculoskeletal: Musculoskeletal: Reports back pain Integumentary/Breasts: Skin/Breast: Denies rash Neurologic: Denies focal weakness and Denies Sensory deficit (Neuro) Psychiatric: Psychiatric: Reports no additional psychiatric complaints and Reports as per HPI Endocrine: Endocrine: Denies cold intolerance, Denies fatigue, Denies flushing, Denies heat intolerance, Denies polyphagia, Denies polydipsia and Denies palpitations Hematologic/Lymphatic: Hematologic/Lymphatic: Reports no additional hematologic/lymphatic complaints and Reports as per HPI Allergic/Immunologic: Allergic/Immunologic: Reports no additional allergic/immunologic complaints and Reports as per HPI REPLACED BY [facility] Past Medical History Medical History BPH (benign prostatic hyperplasia) Chronic deep vein thrombosis (DVT) Linear echogenic filling defect in the right femoral vein, likely chronic thrombus on venous dopplers 11/2020. Chronic respiratory failure with hypoxia, on home oxygen therapy COPD with emphysema Chronic steroid therapy, 10 milligrams prednisone daily. Gastroesophageal reflux disease Hiatal hernia Osteoarthritis Pneumonia Surgical History Surgical History H/O colonoscopy History of bilateral cataract extraction History of lung surgery Family History Family History Father Acute myocardial infarction Congestive heart failure Lung cancer Mother Diabetes mellitus Dementia Sibling Diabetes mellitus Lung cancer Social History Social History Social History: Surrogate decision maker: [place], . Code status: Full code. Smoking packs per day: 1 Smoking cigarettes per day: 20.0 Years smoked: 48 Smoking pack-years: 48.00 Smoking status: Former smoker Tobacco type: cigarettes
--- NOTE | 2023-10-29 23:14 | ADMGEN ---
This patient, [place], was admitted to IMU Room 211-01. Patient/family oriented to hospital policies and general routines including ID bracelet, bed and alarms, visiting hours, pain management, procedures, bathroom and other care routines, personal items, smoking policy, room service/diet, and visiting hours. Information on how to activate the Rapid Response Team has been discussed. Patient/Family are encouraged to report perceived risks to care and to ask questions if they do not understand what they are told or what they should do.
[2023-10-29] MEDS: SODIUM CHLORIDE 0.9% IV 1,000 ML 125 ML IV CONT (23:20)
[2023-10-30] VITALS (25 sets, daily range): BP systolic 123–158; BP diastolic 77–89; PULSE 80–128; RESP 16–24; TEMP 36.1–37.1; O2SAT 94–100
[2023-10-30] MEDS: IPRATROPIUM 0.5 MG/ALBUTEROL SULFATE 2.5 MG AMPUL.NEB 3 ML INHALATION ×4 (02:49→20:40)
[2023-10-30 04:16] LABS: Hemoglobin 12.1 g/dL (14.0-18.0); Mean Corpuscular HGB Conc 31.8 g/dl (32-36); Mean Corpuscular Hemoglobin 31.3 pg (26-34); Mean Corpuscular Volume 98.2 fl (80-100); Mean Platelet Volume 10.4 fl (7.4-10.4); Platelet Count Result 232 k/mm3 (150-375); Red Blood Count 3.87 M/mm3 (4.6-6.20); Red Cell Distribution Width 13.9 % (11.5-14.5); White Blood Count 9.6 K/mm3 (4.5-10.0)
[2023-10-30 04:39] LABS: Anion Gap 6 mmol/L (8-16); Blood Urea Nitrogen 15 mg/dL (9-20); Calcium 8.8 mg/dL (8.4-10.2); Carbon Dioxide 27 mmol/L (22-30); Chloride 107 mmol/L (98-107); Estimated CRCL calculation 111 ml/min; Estimated Glomerular Filt Rate > 60; Glucose 138 mg/dL (65-110); Sodium 140 mmol/L (137-145)
[2023-10-30] MEDS: cefTRIAXone 2 GM/NS 100 ML 2 GM/100 ML BAG IVPB (04:46)
[2023-10-30] MEDS: BENZONATATE 100 MG CAPSULE 200 MG PO ×3 (04:55→20:52)
[2023-10-30] MEDS: FLUTICASONE PROPIONATE 0.05% NA SPR 16 GM BTL (*BKC) 1 SPRAY NASAL ×2 (04:55→08:44)
[2023-10-30] MEDS: HYDROcodone/acetaminophen (*CRX) 5-325 MG TABLET 1 TAB PO ×3 (04:57→20:52)
[2023-10-30] MEDS: AZITHROMYCIN 500 MG/NS 250 ML 500 MG/250 ML BAG 250 MG IVPB (04:59)
[2023-10-30] MEDS: MUPIROCIN 2% OINT 22 GM TUBE 1 APPLIC TOPICAL (08:44)
[2023-10-30] MEDS: ROFLUMILAST 500 MCG TABLET PO (08:44)
[2023-10-30] MEDS: hydrOXYzine HCL 25 MG TABLET PO ×2 (08:44→22:24)
[2023-10-30] MEDS: OSELTAMIVIR PHOSPHATE 75 MG CAPSULE PO ×2 (08:44→20:51)
[2023-10-30] MEDS: PANTOPRAZOLE 40 MG TABLET PO (08:45)
[2023-10-30] MEDS: ASPIRIN 81 MG CHEWABLE TABLET PO (08:45)
[2023-10-30] MEDS: LIDOCAINE 5% PATCH 2 PATCH TOPICAL (08:46)
[2023-10-30 09:17] LABS: Alveolar/Arterial O2 Gradient 83.1 mmHg; Fractional Inspired Oxygen 32 %; HCO3 ABG 22.7 mEq/l (22.0-26.0); Oxygen Saturation ABG 97.5 % (95.0-100.0); Oxyhemoglobin 96.4 % THb (90.0-100.0); PCO2 ABG 38.4 mmHg (35.0-45.0); PO2 ABG 100.1 mmHg (80.0-100.0); PO2 FiO2 Ratio Arterial Blood 3.13 %; Total Hemoglobin 13.2 g/dL (12.0-18.0); pH ABG 7.389 (7.350-7.450)
[2023-10-30 09:19] LABS: Device NASAL CANNULA; Modified Allen's Test Pass; Site Drawn LEFT RADIAL
[2023-10-30] MEDS: SODIUM CHLORIDE 0.9% IV 1,000 ML 75 ML IV CONT (09:51)
--- NOTE | 2023-10-30 10:13 | PC.NURSE ---
Addendum entered by Gini Polanco RN 10/30/23 10:28: This event occurred at 0820 this AM. MD was informed at 0823 Addendum entered by Gini Polanco RN 10/30/23 10:15: Pt removed home Trilogy to receive breathing treatment by RT. RT called RN to room due to pt having difficulty breathing. Pt stated I need something for anxiety. I have these issues at home all the time. Give me that stuff they gave me last night in the ED. RN assisted pt with slowing his breathing, and informed pt that she would need to call the MD to obtain orders for medication. Pt continued to slow his breathing and became more relaxed and stated You do whatever you need to do. Pt was able to finish his breathing treatment and remained calm. Dr. Wright updated on situation and pt condition. New orders received for Atarax 5mg PO TID PRN for anxiety and stat ABG. MD made aware of the warning with Atarax and Azithromycin and would like to continue with the Atarax order. Original Note: Pt removed home Trilogy to receive breathing treatment from RT. RT called RN to room. Pt stated I need something for anxiety. Give me that stuff they gave me last night in the ED. RN assisted pt with slowing his breathing. Pt informed that RN had to call MD due to not having any anxiety medication ordered. Pt calmed down and sated you do whatever you need to do.
--- NOTE | 2023-10-30 15:15 | PC.NURSE ---
Pt requesting something indigestion and some Mucinex for his cough. RN informed pt that he has already received his pantoprazole for his indigestion this AM. RN explained to pt he received this medication instead of his home medication of omeprazole since we don't carry that here. Pt states he would still like something for his indigestion this isn't working. RN called Dr. Wright with these requests. New order for Tums 750mg PO TID PRN for indigestion and Robitussin 10ml PO q4h PRN for cough if Tessalon Perles aren't working.
[2023-10-30] MEDS: methylPREDNISolone SOD SUCC 40 MG VIAL IV PUSH (16:53)
--- NOTE | 2023-10-30 18:30 | PM.IMPN ---
Progress Note: A&P Assessment and Plan (1) Acute and chronic respiratory failure with hypoxia: Code(s): J96.21 - Acute and chronic respiratory failure with hypoxia Status: Acute Assessment and Plan: admit to IMU initially required BiPAP continue Trelegy at nighttime (2) Acute exacerbation of chronic obstructive pulmonary disease: Code(s): J44.1 - Chronic obstructive pulmonary disease with (acute) exacerbation Status: Acute Assessment and Plan: breathing treatments started on Rocephin and Zithromax will add systemic steroids (3) Influenza A: Code(s): J10.1 - Influenza due to other identified influenza virus with other respiratory manifestations Status: Acute Assessment and Plan: started on Tamiflu supportive care (4) Gastroesophageal reflux disease: Code(s): K21.9 - Gastro-esophageal reflux disease without esophagitis Status: Acute Assessment and Plan: PPI (5) Former smoker: Code(s): Z87.891 - Personal history of nicotine dependence Status: Acute Assessment and Plan: unchanged Time Spent With Patient Time with patient: 25 - 35 minutes Subjective Date/time seen: 10/30/23 18:30 Interval history: Seen and examined; easily anxious Review of Systems Review of Systems: Shortness of breath, fatigue Constitutional: Constitutional: Denies chills, Denies fatigue, Denies fever(s) and Denies malaise Eyes: Eyes: Denies change in vision ENT: Denies dysphagia and Denies odynophagia Cardiovascular: Cardiovascular: Denies chest pain, Denies radiating jaw, neck or arm pain, Denies palpitations and Reports dyspnea Respiratory: Respiratory: Reports cough, Reports dyspnea and Reports wheezing Gastrointestinal: Gastrointestinal: Denies abdominal pain, Denies dysphagia, Denies dyspepsia, Denies nausea, Denies odynophagia and Denies vomiting Genitourinary: Genitourinary: Denies dysuria Musculoskeletal: Musculoskeletal: Reports back pain Integumentary/Breasts: Skin/Breast: Denies rash Neurologic: Denies focal weakness and Denies Sensory deficit (Neuro) Psychiatric: Psychiatric: Reports no additional psychiatric complaints and Reports as per HPI Endocrine: Endocrine: Denies cold intolerance, Denies fatigue, Denies flushing, Denies heat intolerance, Denies polyphagia, Denies polydipsia and Denies palpitations Hematologic/Lymphatic: Hematologic/Lymphatic: Reports no additional hematologic/lymphatic complaints and Reports as per HPI Allergic/Immunologic: Allergic/Immunologic: Reports no additional allergic/immunologic complaints, Reports as per HPI and Reports wheezing Exam Narrative: patient is laying in a stretcher Const: General: cooperative, comfortable, well developed, alert, awake, Physically active, in distress moderate ( tachypneic), ill appearing chronically and average body habitus Nutritional Appearance: average body habitus Orientation/consciousness: patient oriented x3 HENMT: Head: normal to inspection, normocephalic and atraumatic Ears: hearing grossly normal bilaterally Face/Nose/Sinus: normal facial exam Face and sinus: normal facial exam Eyes: General: appearance normal, both eyes and all related structures Pupils: Equal, round and reactive pupils present EOM: EOMs intact bilaterally Neck: Neck: full ROM, no lymphadenopathy and no JVD Thyroid: thyroid normal Lymphatic: no lymphadenopathy noted Resp: Effort & Inspection: normal respiratory effort, able to speak in complete sentences, tachypneic and uses accessory muscles Auscultation: wheezes and diminished lung sounds Cardio: Jugular venous distension: no JVD Rate: regular rate Rhythm: regular rhythm Heart sounds: S1 normal heart sound present and S2 normal heart sound present GI: Inspection: obesity : General: Yes deferred Skin: Rashes: no rashes Wounds: no wounds Neuro: General: patient oriented x3, CN's II-XI inta
[2023-10-30] MEDS: LATANOPROST 0.005% OP SOLN 2.5 ML BTL 1 DROP EACH EYE (20:50)
[2023-10-31] VITALS (23 sets, daily range): BP systolic 134–156; BP diastolic 82–100; PULSE 79–116; RESP 20–28; TEMP 36.2–37.1; O2SAT 94–100
[2023-10-31] MEDS: IPRATROPIUM 0.5 MG/ALBUTEROL SULFATE 2.5 MG AMPUL.NEB 3 ML INHALATION ×4 (02:12→19:38)
[2023-10-31] MEDS: SODIUM CHLORIDE 0.9% IV 1,000 ML 75 ML IV CONT (03:39)
[2023-10-31] MEDS: AZITHROMYCIN 500 MG/NS 250 ML 500 MG/250 ML BAG 250 MG IVPB (04:08)
[2023-10-31 04:58] LABS: Basophils Percent Auto 0.1 % (0.2-1.2); Hematocrit 38.4 % (42.0-52.0); Hemoglobin 12.1 g/dL (14.0-18.0); Immature Granulocyte Absolute 0.03 K/mm3 (0.00-0.031); Immature Granulocyte Percent A 0.4 % (0-0.5); Lymphocytes Absolute Auto 0.52 K/mm3 (0.9-3.2); Lymphocytes Percent Auto 7.7 % (18.3-44.2); Mean Corpuscular HGB Conc 31.5 g/dl (32-36); Mean Corpuscular Hemoglobin 31.2 pg (26-34); Mean Platelet Volume 10.4 fl (7.4-10.4); Monocytes Absolute Auto 0.8 K/mm3 (0.1-0.6); Monocytes Percent Auto 12.2 % (2.6-8.5); Neutrophils Absolute Auto 5.3 K/mm3 (1.3-6.7); Neutrophils Percent Auto 79.6 % (45.5-73.1); Platelet Count Result 237 k/mm3 (150-375); Red Blood Count 3.88 M/mm3 (4.6-6.20); Red Cell Distribution Width 14.1 % (11.5-14.5); White Blood Count 6.7 K/mm3 (4.5-10.0)
[2023-10-31] MEDS: cefTRIAXone 2 GM/NS 100 ML 2 GM/100 ML BAG IVPB (05:02)
[2023-10-31 05:09] LABS: Alanine Aminotransferase 31 U/L (6-50); Albumin Level 3.6 g/dL (3.5-5.1); Alkaline Phosphatase 58 U/L (38-126); Anion Gap 6 mmol/L (8-16); Aspartate Amino Transferase 37 U/L (17-59); Bilirubin,Total 0.6 mg/dL (0.2-1.3); Blood Urea Nitrogen 14 mg/dL (9-20); Calcium 8.6 mg/dL (8.4-10.2); Carbon Dioxide 29 mmol/L (22-30); Chloride 105 mmol/L (98-107); Estimated CRCL calculation 111 ml/min; Estimated Glomerular Filt Rate > 60; Glucose 123 mg/dL (65-110); Potassium 3.6 mmol/L (3.4-5.0); Sodium 140 mmol/L (137-145)
[2023-10-31] MEDS: ROFLUMILAST 500 MCG TABLET PO (08:42)
[2023-10-31] MEDS: OSELTAMIVIR PHOSPHATE 75 MG CAPSULE PO ×2 (08:43→20:22)
[2023-10-31] MEDS: LIDOCAINE 5% PATCH 2 PATCH TOPICAL (08:43)
[2023-10-31] MEDS: ASPIRIN 81 MG CHEWABLE TABLET PO (08:43)
[2023-10-31] MEDS: methylPREDNISolone SOD SUCC 40 MG VIAL IV PUSH ×2 (08:43→17:42)
[2023-10-31] MEDS: PANTOPRAZOLE 40 MG TABLET PO (08:43)
[2023-10-31] MEDS: FLUTICASONE PROPIONATE 0.05% NA SPR 16 GM BTL (*BKC) 1 SPRAY NASAL (08:49)
[2023-10-31] MEDS: HYDROcodone/acetaminophen (*CRX) 5-325 MG TABLET 1 TAB PO ×2 (08:53→20:22)
--- NOTE | 2023-10-31 15:51 | PM.IMPN ---
Progress Note: A&P Assessment and Plan (1) Acute and chronic respiratory failure with hypoxia: Code(s): J96.21 - Acute and chronic respiratory failure with hypoxia Status: Acute Assessment and Plan: admit to IMU initially required BiPAP continue Trelegy at nighttime (2) Acute exacerbation of chronic obstructive pulmonary disease: Code(s): J44.1 - Chronic obstructive pulmonary disease with (acute) exacerbation Status: Acute Assessment and Plan: breathing treatments started on Rocephin and Zithromax will add systemic steroids (3) Influenza A: Code(s): J10.1 - Influenza due to other identified influenza virus with other respiratory manifestations Status: Acute Assessment and Plan: started on Tamiflu supportive care (4) Gastroesophageal reflux disease: Code(s): K21.9 - Gastro-esophageal reflux disease without esophagitis Status: Acute Assessment and Plan: PPI (5) Former smoker: Code(s): Z87.891 - Personal history of nicotine dependence Status: Acute Assessment and Plan: unchanged Plan Assessment and Plan (1) Acute and chronic respiratory failure with hypoxia: ?Code(s): J96.21 - Acute and chronic respiratory failure with hypoxia ?Status:?Acute ?Assessment and Plan: ?admit to IMU ?initially required BiPAP ?continue Trelegy at nighttime (2) Acute exacerbation of chronic obstructive pulmonary disease: ?Code(s): J44.1 - Chronic obstructive pulmonary disease with (acute) exacerbation ?Status:?Acute ?Assessment and Plan: ?breathing treatments ?started on Rocephin and Zithromax ?will add systemic steroids (3) Influenza A: ?Code(s): J10.1 - Influenza due to other identified influenza virus with other respiratory manifestations ?Status:?Acute ?Assessment and Plan: ?started on Tamiflu ?supportive care (4) Gastroesophageal reflux disease: ?Code(s): K21.9 - Gastro-esophageal reflux disease without esophagitis ?Status:?Acute ?Assessment and Plan: ?PPI (5) Former smoker: ?Code(s): Z87.891 - Personal history of nicotine dependence ?Status:?Acute ?Assessment and Plan: ?unchanged Time Spent With Patient Time with patient: 25 - 35 minutes Subjective Date/time seen: 10/31/23 15:51 Interval history: Seen and examined; easily anxious Review of Systems Review of Systems: Shortness of breath, fatigue Constitutional: Constitutional: Denies chills, Denies fatigue, Denies fever(s) and Denies malaise Eyes: Eyes: Denies change in vision ENT: Denies dysphagia and Denies odynophagia Cardiovascular: Cardiovascular: Denies chest pain, Denies radiating jaw, neck or arm pain, Denies palpitations and Reports dyspnea Respiratory: Respiratory: Reports cough, Reports dyspnea and Reports wheezing Gastrointestinal: Gastrointestinal: Denies abdominal pain, Denies dysphagia, Denies dyspepsia, Denies nausea, Denies odynophagia and Denies vomiting Genitourinary: Genitourinary: Denies dysuria Musculoskeletal: Musculoskeletal: Reports back pain Integumentary/Breasts: Skin/Breast: Denies rash Neurologic: Denies focal weakness and Denies Sensory deficit (Neuro) Psychiatric: Psychiatric: Reports no additional psychiatric complaints and Reports as per HPI Endocrine: Endocrine: Denies cold intolerance, Denies fatigue, Denies flushing, Denies heat intolerance, Denies polyphagia, Denies polydipsia and Denies palpitations Hematologic/Lymphatic: Hematologic/Lymphatic: Reports no additional hematologic/lymphatic complaints and Reports as per HPI Allergic/Immunologic: Allergic/Immunologic: Reports no additional allergic/immunologic complaints, Reports as per HPI and Reports wheezing Exam Narrative: patient is laying in a stretcher Const: General: cooperative, comfortable, well developed, alert, awake, Physically active, in distress moderate
[2023-10-31] MEDS: KETOROLAC 15 MG/ML VIAL (*BKC) IV PUSH ×2 (17:42→23:26)
[2023-10-31] MEDS: LATANOPROST 0.005% OP SOLN 2.5 ML BTL 1 DROP EACH EYE (20:23)
[2023-10-31] MEDS: MUPIROCIN 2% OINT 22 GM TUBE 1 APPLIC TOPICAL (20:25)
[2023-10-31] MEDS: SODIUM CHLORIDE 0.9% IV 1,000 ML 50 ML IV CONT (20:25)
[2023-10-31] MEDS: hydrOXYzine HCL 25 MG TABLET PO (23:26)
[2023-11-01] VITALS (23 sets, daily range): BP systolic 135–165; BP diastolic 78–104; PULSE 64–103; RESP 20–26; TEMP 36.2–36.4; O2SAT 94–100
[2023-11-01] MEDS: IPRATROPIUM 0.5 MG/ALBUTEROL SULFATE 2.5 MG AMPUL.NEB 3 ML INHALATION ×4 (00:12→21:05)
[2023-11-01] MEDS: cefTRIAXone 2 GM/NS 100 ML 2 GM/100 ML BAG IVPB (03:34)
[2023-11-01] MEDS: AZITHROMYCIN 500 MG/NS 250 ML 500 MG/250 ML BAG 250 MG IVPB (04:01)
[2023-11-01 04:54] LABS: Basophils Percent Auto 0.2 % (0.2-1.2); Hematocrit 38.6 % (42.0-52.0); Hemoglobin 12.3 g/dL (14.0-18.0); Immature Granulocyte Absolute 0.03 K/mm3 (0.00-0.031); Immature Granulocyte Percent A 0.4 % (0-0.5); Lymphocytes Absolute Auto 0.72 K/mm3 (0.9-3.2); Lymphocytes Percent Auto 8.9 % (18.3-44.2); Mean Corpuscular HGB Conc 31.9 g/dl (32-36); Mean Corpuscular Hemoglobin 31.9 pg (26-34); Mean Platelet Volume 10.6 fl (7.4-10.4); Monocytes Absolute Auto 0.8 K/mm3 (0.1-0.6); Monocytes Percent Auto 9.7 % (2.6-8.5); Neutrophils Absolute Auto 6.6 K/mm3 (1.3-6.7); Neutrophils Percent Auto 80.8 % (45.5-73.1); Platelet Count Result 242 k/mm3 (150-375); Red Blood Count 3.86 M/mm3 (4.6-6.20); Red Cell Distribution Width 14.2 % (11.5-14.5); White Blood Count 8.1 K/mm3 (4.5-10.0)
[2023-11-01 05:05] LABS: Potassium 3.6 mmol/L (3.4-5.0)
[2023-11-01 05:07] LABS: Alanine Aminotransferase 29 U/L (6-50); Albumin Level 3.8 g/dL (3.5-5.1); Alkaline Phosphatase 57 U/L (38-126); Anion Gap 5 mmol/L (8-16); Aspartate Amino Transferase 27 U/L (17-59); Bilirubin,Total 0.4 mg/dL (0.2-1.3); Blood Urea Nitrogen 18 mg/dL (9-20); Calcium 8.5 mg/dL (8.4-10.2); Carbon Dioxide 31 mmol/L (22-30); Chloride 104 mmol/L (98-107); Estimated CRCL calculation 111 ml/min; Estimated Glomerular Filt Rate > 60; Glucose 144 mg/dL (65-110); Sodium 140 mmol/L (137-145)
[2023-11-01] MEDS: KETOROLAC 15 MG/ML VIAL (*BKC) IV PUSH ×3 (05:56→17:14)
[2023-11-01] MEDS: LIDOCAINE 5% PATCH 2 PATCH TOPICAL (08:27)
[2023-11-01] MEDS: FLUTICASONE PROPIONATE 0.05% NA SPR 16 GM BTL (*BKC) 1 SPRAY NASAL (08:27)
[2023-11-01] MEDS: ROFLUMILAST 500 MCG TABLET PO (08:27)
[2023-11-01] MEDS: methylPREDNISolone SOD SUCC 40 MG VIAL IV PUSH ×2 (08:27→17:14)
[2023-11-01] MEDS: ASPIRIN 81 MG CHEWABLE TABLET PO (08:27)
[2023-11-01] MEDS: OSELTAMIVIR PHOSPHATE 75 MG CAPSULE PO ×2 (08:27→21:11)
[2023-11-01] MEDS: PANTOPRAZOLE 40 MG TABLET PO (08:27)
--- NOTE | 2023-11-01 13:04 | PC.NURSE ---
This patient, Bentley Meas, was transferred to [[id number]] on 11/01/23 at 1304. Personal belongings sent with patient. Report given to [GORDON Thacker @[id number] ]. Appropriate documentation sent with patient.
[2023-11-01] MEDS: HYDROcodone/acetaminophen (*CRX) 5-325 MG TABLET 1 TAB PO (15:59)
--- NOTE | 2023-11-01 16:39 | PM.IMPN ---
Progress Note: A&P Assessment and Plan (1) Acute and chronic respiratory failure with hypoxia: Code(s): J96.21 - Acute and chronic respiratory failure with hypoxia Status: Acute Assessment and Plan: admit to IMU initially required BiPAP continue Trelegy at nighttime (2) Acute exacerbation of chronic obstructive pulmonary disease: Code(s): J44.1 - Chronic obstructive pulmonary disease with (acute) exacerbation Status: Acute Assessment and Plan: breathing treatments started on Rocephin and Zithromax will add systemic steroids (3) Influenza A: Code(s): J10.1 - Influenza due to other identified influenza virus with other respiratory manifestations Status: Acute Assessment and Plan: started on Tamiflu supportive care (4) Gastroesophageal reflux disease: Code(s): K21.9 - Gastro-esophageal reflux disease without esophagitis Status: Acute Assessment and Plan: PPI (5) Former smoker: Code(s): Z87.891 - Personal history of nicotine dependence Status: Acute Assessment and Plan: unchanged Plan Assessment and Plan (1) Acute and chronic respiratory failure with hypoxia: ?Code(s): J96.21 - Acute and chronic respiratory failure with hypoxia ?Status:?Acute ?Assessment and Plan: ?admit to IMU ?initially required BiPAP ?continue Trelegy at nighttime 11/01/23: Improved; on Augmentin today (2) Acute exacerbation of chronic obstructive pulmonary disease: ?Code(s): J44.1 - Chronic obstructive pulmonary disease with (acute) exacerbation ?Status:?Acute ?Assessment and Plan: ?breathing treatments ?started on Rocephin and Zithromax; now on Augmentin ?will add systemic steroids (3) Influenza A: ?Code(s): J10.1 - Influenza due to other identified influenza virus with other respiratory manifestations ?Status:?Acute ?Assessment and Plan: ?started on Tamiflu ?supportive care (4) Gastroesophageal reflux disease: ?Code(s): K21.9 - Gastro-esophageal reflux disease without esophagitis ?Status:?Acute ?Assessment and Plan: ?PPI (5) Former smoker: ?Code(s): Z87.891 - Personal history of nicotine dependence ?Status:?Acute ?Assessment and Plan: ?unchanged Obesity. BMI 34. Diet and lifestyle modification counseling Time Spent With Patient Time with patient: 25 - 35 minutes Subjective Date/time seen: 11/01/23 16:39 Interval history: Seen and examined; He feels vastly better; He is able to perform more of his ADLs Review of Systems Review of Systems: Shortness of breath, fatigue Constitutional: Constitutional: Denies chills, Denies fatigue, Denies fever(s) and Denies malaise Eyes: Eyes: Denies change in vision ENT: Denies dysphagia and Denies odynophagia Cardiovascular: Cardiovascular: Denies chest pain, Denies radiating jaw, neck or arm pain, Denies palpitations and Reports dyspnea Respiratory: Respiratory: Reports cough, Reports dyspnea and Reports wheezing Gastrointestinal: Gastrointestinal: Denies abdominal pain, Denies dysphagia, Denies dyspepsia, Denies nausea, Denies odynophagia and Denies vomiting Genitourinary: Genitourinary: Denies dysuria Musculoskeletal: Musculoskeletal: Reports back pain Integumentary/Breasts: Skin/Breast: Denies rash Neurologic: Denies focal weakness and Denies Sensory deficit (Neuro) Psychiatric: Psychiatric: Reports no additional psychiatric complaints and Reports as per HPI Endocrine: Endocrine: Denies cold intolerance, Denies fatigue, Denies flushing, Denies heat intolerance, Denies polyphagia, Denies polydipsia and Denies palpitations Hematologic/Lymphatic: Hematologic/Lymphatic: Reports no additional hematologic/lymphatic complaints and Reports as per HPI Allergic/Immunologic: Allergic/Immunologic: Reports no additional allergic/immunologic complaints, Reports as per HPI and Reports wheezing Ex
[2023-11-01] MEDS: SODIUM CHLORIDE 0.9% IV 1,000 ML 50 ML IV CONT (17:16)
[2023-11-01] MEDS: AMOXICILLIN/CLAVULANATE K 875-125 MG TAB 1 TABLET PO (21:11)
[2023-11-01] MEDS: LATANOPROST 0.005% OP SOLN 2.5 ML BTL 1 DROP EACH EYE (21:12)
[2023-11-01] MEDS: MUPIROCIN 2% OINT 22 GM TUBE 1 APPLIC TOPICAL (21:14)
[2023-11-01] MEDS: hydrOXYzine HCL 25 MG TABLET PO (21:20)
[2023-11-02] VITALS (15 sets, daily range): BP systolic 131–160; BP diastolic 75–85; PULSE 79–93; RESP 18–28; TEMP 36.2–36.8; O2SAT 97–100
[2023-11-02] MEDS: KETOROLAC 15 MG/ML VIAL (*BKC) IV PUSH ×4 (00:56→17:21)
[2023-11-02] MEDS: HYDROcodone/acetaminophen (*CRX) 5-325 MG TABLET 1 TAB PO ×2 (02:17→11:35)
[2023-11-02] MEDS: IPRATROPIUM 0.5 MG/ALBUTEROL SULFATE 2.5 MG AMPUL.NEB 3 ML INHALATION ×4 (02:37→20:38)
[2023-11-02 05:52] LABS: Basophils Percent Auto 0.2 % (0.2-1.2); Hemoglobin 12.1 g/dL (14.0-18.0); Immature Granulocyte Absolute 0.03 K/mm3 (0.00-0.031); Immature Granulocyte Percent A 0.3 % (0-0.5); Lymphocytes Absolute Auto 1.23 K/mm3 (0.9-3.2); Lymphocytes Percent Auto 13.4 % (18.3-44.2); Mean Corpuscular HGB Conc 31.8 g/dl (32-36); Mean Corpuscular Hemoglobin 31.7 pg (26-34); Mean Corpuscular Volume 99.5 fl (80-100); Mean Platelet Volume 10.3 fl (7.4-10.4); Monocytes Percent Auto 11.3 % (2.6-8.5); Neutrophils Absolute Auto 6.8 K/mm3 (1.3-6.7); Neutrophils Percent Auto 74.8 % (45.5-73.1); Platelet Count Result 244 k/mm3 (150-375); Red Blood Count 3.82 M/mm3 (4.6-6.20); Red Cell Distribution Width 14.1 % (11.5-14.5); White Blood Count 9.2 K/mm3 (4.5-10.0)
[2023-11-02 06:05] LABS: Alanine Aminotransferase 27 U/L (6-50); Albumin Level 3.7 g/dL (3.5-5.1); Alkaline Phosphatase 51 U/L (38-126); Anion Gap 3 mmol/L (8-16); Aspartate Amino Transferase 22 U/L (17-59); Bilirubin,Total 0.5 mg/dL (0.2-1.3); Blood Urea Nitrogen 17 mg/dL (9-20); Calcium 8.5 mg/dL (8.4-10.2); Carbon Dioxide 32 mmol/L (22-30); Chloride 107 mmol/L (98-107); Estimated CRCL calculation 111 ml/min; Estimated Glomerular Filt Rate > 60; Glucose 104 mg/dL (65-110); Potassium 3.5 mmol/L (3.4-5.0); Sodium 142 mmol/L (137-145)
[2023-11-02] MEDS: methylPREDNISolone SOD SUCC 40 MG VIAL IV PUSH ×2 (08:31→16:22)
[2023-11-02] MEDS: PANTOPRAZOLE 40 MG TABLET PO (08:32)
[2023-11-02] MEDS: OSELTAMIVIR PHOSPHATE 75 MG CAPSULE PO ×2 (08:32→21:24)
[2023-11-02] MEDS: AZITHROMYCIN 250 MG TABLET 500 MG PO (08:32)
[2023-11-02] MEDS: AMOXICILLIN/CLAVULANATE K 875-125 MG TAB 1 TABLET PO ×2 (08:32→21:24)
[2023-11-02] MEDS: ROFLUMILAST 500 MCG TABLET PO (08:32)
[2023-11-02] MEDS: ASPIRIN 81 MG CHEWABLE TABLET PO (08:32)
[2023-11-02] MEDS: LIDOCAINE 5% PATCH 2 PATCH TOPICAL (08:35)
[2023-11-02] MEDS: MUPIROCIN 2% OINT 22 GM TUBE 1 APPLIC TOPICAL ×2 (08:40→21:24)
[2023-11-02] MEDS: hydrOXYzine HCL 25 MG TABLET PO (12:51)
[2023-11-02] MEDS: guaiFENesin/DEXTROMETHORPHAN 10 ML UDC PO (16:22)
--- NOTE | 2023-11-02 17:22 | PM.IMPN ---
Progress Note: A&P Assessment and Plan (1) Acute and chronic respiratory failure with hypoxia: Code(s): J96.21 - Acute and chronic respiratory failure with hypoxia Status: Acute Assessment and Plan: Continue oxygen with trilogy p.r.n. and while sleeping (2) Acute exacerbation of chronic obstructive pulmonary disease: Code(s): J44.1 - Chronic obstructive pulmonary disease with (acute) exacerbation Status: Acute Assessment and Plan: Azithromycin through 11/03 and Amoxil class through 11/05 Continue steroids and bronchodilators (3) Influenza A: Code(s): J10.1 - Influenza due to other identified influenza virus with other respiratory manifestations Status: Acute Assessment and Plan: Continue oseltamivir through 11/03 (4) Gastroesophageal reflux disease: Code(s): K21.9 - Gastro-esophageal reflux disease without esophagitis Status: Acute Assessment and Plan: PPI (5) Former smoker: Code(s): Z87.891 - Personal history of nicotine dependence Status: Acute Assessment and Plan: Discussed need to continue abstaining 11/02 Subjective Date/time seen: 11/02/23 17:22 Interval history: Denies sleep well last night due to having his oxygen turned down to from 3-2 L in the candy roller hours. Back up to 3 L now on doing much better. Uses his home trilogy device whenever resting or short of breath. Eating well. Having pain in left shoulder that has been present for several weeks. Some decreased range of motion. No injury recently. Pain radiates up to the left side of the neck. Moderate to severe and very positional worse with use. No numbness or weakness. Denied chest pain shortness a breath GI or difficulties. No abnormal bleeding reported. Review of Systems Review of Systems: All systems reviewed & are unremarkable except as noted in HPI and below Exam Narrative: HEENT: PERRL, sclerae nonicteric, pharyngeal mucosa pink and intact NECK: No JVD CHEST: Diminished breath sounds throughout without crackles wheezes or rhonchi.. Mildly tachypneic. HEART: NL S1/S2, regular, no murmur ABDOMEN: BS+, soft, nontender, no mass, no bruits EXTREMITIES: No cyanosis, edema, or clubbing NEUROLOGIC: CN intact and symmetric to inspection. MUSCULOSKELETAL: Tone and strength symmetric. PSYCH: Alert. Oriented to person, place, and time. Objective Data Vital Signs Vital Signs: Vital Signs - 24 hr 11/01/23 21:06 11/01/23 21:09 11/01/23 21:05 Temperature Pulse Rate 85 85 85 Respiratory Rate 20 22 H Blood Pressure Pulse Oximetry 97 97 Oxygen Delivery Nasal Cannula Oxygen Flow Rate 3 11/01/23 22:49 11/01/23 20:00 11/02/23 02:38 Temperature 97.5 F L Pulse Rate 88 80 Respiratory Rate 22 H 20 Blood Pressure 165/96 H Pulse Oximetry 100 99 Oxygen Delivery Nasal Cannula Oxygen Flow Rate 5 11/01/23 21:20 11/02/23 02:43 11/02/23 03:08 Temperature Pulse Rate 84 80 83 Respiratory Rate 20 20 20 Blood Pressure Pulse Oximetry 98 Oxygen Delivery Oxygen Flow Rate 11/02/23 06:00 11/02/23 08:00 11/02/23 08:37 Temperature 97.2 F L Pulse Rate 79 89 89 Respiratory Rate 21 H 28 H Blood Pressure 138/75 Pulse Oximetry 100 97 Oxygen Delivery Nasal Cannula Oxygen Flow Rate 2 11/02/23 08:37 11/02/23 08:50 11/02/23 13:45 Temperature Pulse Rate 83 90 Respiratory Rate 24 H 24 H Blood Pressure Pulse Oximetry 99 Oxygen Delivery Nasal Cannula Oxygen Flow Rate 2 11/02/23 13:55 11/02/23 14:00 Temperature 98.3 F Pulse Rate 89 88 Respiratory Rate 24 H 18 Blood Pressure 160/85 H Pulse Oximetry 100 Oxygen Delivery Oxygen Flow Rate Intake/Output Intake/Output: Intake & Output 10/30/23 10/31/23 11/01/23 11/02/23 23:59 23:59 23:59 23:59 Intake Total 3010 3090 2122 960 Output Total 1500 2700 1050 1000 Balance 0277 517 1024 -40 Meds/Results Medicati
[2023-11-02] MEDS: LATANOPROST 0.005% OP SOLN 2.5 ML BTL 1 DROP EACH EYE (21:23)
[2023-11-02] MEDS: MELATONIN 5 MG TABLET 10 MG PO (21:24)
[2023-11-03] VITALS (12 sets, daily range): BP systolic 147–149; BP diastolic 80–103; PULSE 73–117; RESP 18–22; TEMP 36.4–36.9; O2SAT 97–100
[2023-11-03] MEDS: KETOROLAC 15 MG/ML VIAL (*BKC) IV PUSH ×4 (00:37→17:11)
[2023-11-03] MEDS: IPRATROPIUM 0.5 MG/ALBUTEROL SULFATE 2.5 MG AMPUL.NEB 3 ML INHALATION ×4 (01:53→19:53)
[2023-11-03] MEDS: hydrOXYzine HCL 25 MG TABLET PO (03:06)
[2023-11-03] MEDS: CALCIUM CARBONATE (TUMS) 500 MG (200 MG ELEMENTAL) 750 MG PO (03:07)
[2023-11-03 05:53] LABS: Basophils Percent Auto 0.2 % (0.2-1.2); Hematocrit 36.7 % (42.0-52.0); Hemoglobin 11.5 g/dL (14.0-18.0); Immature Granulocyte Absolute 0.03 K/mm3 (0.00-0.031); Immature Granulocyte Percent A 0.3 % (0-0.5); Lymphocytes Absolute Auto 1.58 K/mm3 (0.9-3.2); Lymphocytes Percent Auto 17.3 % (18.3-44.2); Mean Corpuscular HGB Conc 31.3 g/dl (32-36); Mean Corpuscular Hemoglobin 31.6 pg (26-34); Mean Corpuscular Volume 100.8 fl (80-100); Mean Platelet Volume 10.5 fl (7.4-10.4); Monocytes Percent Auto 10.4 % (2.6-8.5); Neutrophils Absolute Auto 6.6 K/mm3 (1.3-6.7); Neutrophils Percent Auto 71.8 % (45.5-73.1); Platelet Count Result 231 k/mm3 (150-375); Red Blood Count 3.64 M/mm3 (4.6-6.20); White Blood Count 9.1 K/mm3 (4.5-10.0)
[2023-11-03 06:07] LABS: Alanine Aminotransferase 26 U/L (6-50); Albumin Level 3.3 g/dL (3.5-5.1); Alkaline Phosphatase 55 U/L (38-126); Anion Gap 2 mmol/L (8-16); Aspartate Amino Transferase 22 U/L (17-59); Bilirubin,Total 0.6 mg/dL (0.2-1.3); Blood Urea Nitrogen 20 mg/dL (9-20); Calcium 8.6 mg/dL (8.4-10.2); Carbon Dioxide 32 mmol/L (22-30); Chloride 108 mmol/L (98-107); Estimated CRCL calculation 112 ml/min; Estimated Glomerular Filt Rate > 60; Glucose 87 mg/dL (65-110); Potassium 3.6 mmol/L (3.4-5.0); Sodium 142 mmol/L (137-145)
[2023-11-03] MEDS: AZITHROMYCIN 250 MG TABLET 500 MG PO (09:45)
[2023-11-03] MEDS: ASPIRIN 81 MG CHEWABLE TABLET PO (09:46)
[2023-11-03] MEDS: AMOXICILLIN/CLAVULANATE K 875-125 MG TAB 1 TABLET PO ×2 (09:46→20:01)
[2023-11-03] MEDS: PANTOPRAZOLE 40 MG TABLET PO (09:46)
[2023-11-03] MEDS: methylPREDNISolone SOD SUCC 40 MG VIAL IV PUSH ×2 (09:46→17:11)
[2023-11-03] MEDS: OSELTAMIVIR PHOSPHATE 75 MG CAPSULE PO (09:46)
[2023-11-03] MEDS: ROFLUMILAST 500 MCG TABLET PO (09:46)
[2023-11-03] MEDS: MUPIROCIN 2% OINT 22 GM TUBE 1 APPLIC TOPICAL ×2 (09:47→20:05)
[2023-11-03] MEDS: guaiFENesin/DEXTROMETHORPHAN 10 ML UDC PO (09:50)
[2023-11-03] MEDS: HYDROcodone/acetaminophen (*CRX) 5-325 MG TABLET 1 TAB PO ×2 (09:50→15:34)
--- NOTE | 2023-11-03 09:51 | PM.IMPN ---
Progress Note: A&P Assessment and Plan (1) Acute and chronic respiratory failure with hypoxia: Code(s): J96.21 - Acute and chronic respiratory failure with hypoxia Status: Acute Assessment and Plan: Continue oxygen with trilogy p.r.n. and while sleeping Improving slowly and anticipate discharge by 11/05 (2) Acute exacerbation of chronic obstructive pulmonary disease: Code(s): J44.1 - Chronic obstructive pulmonary disease with (acute) exacerbation Status: Acute Assessment and Plan: Azithromycin through 11/03 and Amoxiclav through 11/05 Continue steroids and bronchodilators (3) Influenza A: Code(s): J10.1 - Influenza due to other identified influenza virus with other respiratory manifestations Status: Acute Assessment and Plan: Continue oseltamivir through 11/03 (4) Gastroesophageal reflux disease: Code(s): K21.9 - Gastro-esophageal reflux disease without esophagitis Status: Acute Assessment and Plan: PPI (5) Former smoker: Code(s): Z87.891 - Personal history of nicotine dependence Status: Acute Assessment and Plan: Discussed need to continue abstaining 11/02 Subjective Date/time seen: 11/03/23 09:51 Interval history: Feeling better. Producing creamy white sputum. Tenacious. Short of breath with walking to commode and back. Using incentive spirometer flutter valve and vibrating vest to help mobilize secretions. Also made a concerted effort to drink more water yesterday and today. Feeling better overall. Denied chest pain abdominal pain GI or issues. Review of Systems Review of Systems: All systems reviewed & are unremarkable except as noted in HPI and below Exam Narrative: HEENT: PERRL, sclerae nonicteric, pharyngeal mucosa pink and intact NECK: No JVD CHEST: Increased anteroposterior diameter. Diminished breath sounds throughout with mild end inspiratory and expiratory wheezes and prolonged expiratory phase. Mildly tachypneic. HEART: NL S1/S2, regular, no murmur ABDOMEN: BS+, soft, nontender, no mass, no bruits EXTREMITIES: No cyanosis, edema, or clubbing NEUROLOGIC: CN intact and symmetric to inspection. MUSCULOSKELETAL: Tone and strength symmetric. PSYCH: Alert. Oriented to person, place, and time. Objective Data Vital Signs Vital Signs: Vital Signs - 24 hr 11/02/23 13:45 11/02/23 13:55 11/02/23 14:00 Temperature 98.3 F Pulse Rate 90 89 88 Respiratory Rate 24 H 24 H 18 Blood Pressure 160/85 H Pulse Oximetry 100 Oxygen Delivery Oxygen Flow Rate 11/02/23 20:12 11/02/23 20:41 11/02/23 20:00 Temperature 97.6 F Pulse Rate 83 93 Respiratory Rate 20 20 Blood Pressure 131/81 Pulse Oximetry 100 98 Oxygen Delivery Nasal Cannula Oxygen Flow Rate 3 11/02/23 23:00 11/03/23 01:55 11/02/23 20:51 Temperature Pulse Rate 86 73 88 Respiratory Rate 20 20 Blood Pressure Pulse Oximetry 97 Oxygen Delivery Oxygen Flow Rate 11/03/23 02:06 11/03/23 04:03 11/03/23 08:52 Temperature 97.6 F Pulse Rate 80 98 Respiratory Rate 20 20 Blood Pressure 147/80 H Pulse Oximetry 100 98 Oxygen Delivery Nasal Cannula Oxygen Flow Rate 3 Intake/Output Intake/Output: Intake & Output 10/31/23 11/01/23 11/02/23 11/03/23 23:59 23:59 23:59 23:59 Intake Total 3090 2122 2000 350 Output Total 2700 1050 1000 400 Balance 390 1072 1000 -50 Meds/Results Medications: Active Medications Generic Name Dose Route Start Last Admin Trade Name Freq PRN Reason Stop Dose Admin Hydrocodone Bitart/Acetaminophen 1 tab 10/30/23 03:27 11/02/23 11:35 Hydrocodone/Acetaminophen (*Crx) 5-325 Mg Tablet PO 1 tab Q6H PRN Administration Pain 4-6 Albuterol/Ipratropium 3 ml 10/30/23 02:00 11/03/23 08:51 Ipratropium 0.5 Mg/Albuterol Sulfate 2.5 Mg Ampul.Neb 3 Ml INHALATION 3 ml Q6HRT DAVIAN Administration Amoxicillin/Clavulanate Potassium 1 tablet
[2023-11-03] MEDS: LIDOCAINE 5% PATCH 2 PATCH TOPICAL (09:52)
[2023-11-03] MEDS: MELATONIN 5 MG TABLET 10 MG PO (20:01)
[2023-11-03] MEDS: LATANOPROST 0.005% OP SOLN 2.5 ML BTL 1 DROP EACH EYE (20:03)
[2023-11-04] VITALS (13 sets, daily range): BP systolic 135–158; BP diastolic 82–88; PULSE 60–98; RESP 20–22; TEMP 36.3–36.7; O2SAT 95–100
[2023-11-04] MEDS: KETOROLAC 15 MG/ML VIAL (*BKC) IV PUSH ×2 (00:05→05:24)
[2023-11-04] MEDS: IPRATROPIUM 0.5 MG/ALBUTEROL SULFATE 2.5 MG AMPUL.NEB 3 ML INHALATION ×4 (01:41→20:29)
[2023-11-04 05:31] LABS: Basophils Percent Auto 0.1 % (0.2-1.2); Hematocrit 36.5 % (42.0-52.0); Hemoglobin 11.7 g/dL (14.0-18.0); Immature Granulocyte Absolute 0.03 K/mm3 (0.00-0.031); Immature Granulocyte Percent A 0.3 % (0-0.5); Lymphocytes Absolute Auto 1.07 K/mm3 (0.9-3.2); Mean Corpuscular HGB Conc 32.1 g/dl (32-36); Mean Corpuscular Hemoglobin 31.6 pg (26-34); Mean Corpuscular Volume 98.6 fl (80-100); Mean Platelet Volume 10.6 fl (7.4-10.4); Monocytes Absolute Auto 0.9 K/mm3 (0.1-0.6); Monocytes Percent Auto 10.4 % (2.6-8.5); Neutrophils Absolute Auto 6.9 K/mm3 (1.3-6.7); Neutrophils Percent Auto 77.2 % (45.5-73.1); Platelet Count Result 241 k/mm3 (150-375); Red Cell Distribution Width 13.8 % (11.5-14.5)
[2023-11-04 05:46] LABS: Alanine Aminotransferase 26 U/L (6-50); Albumin Level 3.4 g/dL (3.5-5.1); Alkaline Phosphatase 56 U/L (38-126); Anion Gap 2 mmol/L (8-16); Aspartate Amino Transferase 23 U/L (17-59); Bilirubin,Total 0.5 mg/dL (0.2-1.3); Blood Urea Nitrogen 21 mg/dL (9-20); Calcium 8.7 mg/dL (8.4-10.2); Carbon Dioxide 35 mmol/L (22-30); Chloride 108 mmol/L (98-107); Estimated CRCL calculation 98 ml/min; Estimated Glomerular Filt Rate > 60; Glucose 88 mg/dL (65-110); Potassium 3.7 mmol/L (3.4-5.0); Sodium 145 mmol/L (137-145)
[2023-11-04] MEDS: HYDROcodone/acetaminophen (*CRX) 5-325 MG TABLET 1 TAB PO ×3 (06:36→21:03)
[2023-11-04] MEDS: AMOXICILLIN/CLAVULANATE K 875-125 MG TAB 1 TABLET PO ×2 (09:11→21:03)
[2023-11-04] MEDS: PANTOPRAZOLE 40 MG TABLET PO (09:11)
[2023-11-04] MEDS: MUPIROCIN 2% OINT 22 GM TUBE 1 APPLIC TOPICAL ×2 (09:11→21:05)
[2023-11-04] MEDS: ASPIRIN 81 MG CHEWABLE TABLET PO (09:11)
[2023-11-04] MEDS: ROFLUMILAST 500 MCG TABLET PO (09:11)
[2023-11-04] MEDS: methylPREDNISolone SOD SUCC 40 MG VIAL IV PUSH ×2 (09:12→16:28)
[2023-11-04] MEDS: LIDOCAINE 5% PATCH 2 PATCH TOPICAL (09:18)
--- NOTE | 2023-11-04 15:01 | PM.IMPN ---
Progress Note: A&P Assessment and Plan (1) Acute and chronic respiratory failure with hypoxia: Code(s): J96.21 - Acute and chronic respiratory failure with hypoxia Status: Acute Assessment and Plan: Continue oxygen with trilogy p.r.n. and while sleeping Improving slowly and anticipate discharge by 11/05 (2) Acute exacerbation of chronic obstructive pulmonary disease: Code(s): J44.1 - Chronic obstructive pulmonary disease with (acute) exacerbation Status: Acute Assessment and Plan: Azithromycin through 11/03 and Amoxiclav through 11/05 Continue steroids and bronchodilators (3) Influenza A: Code(s): J10.1 - Influenza due to other identified influenza virus with other respiratory manifestations Status: Acute Assessment and Plan: Continue oseltamivir through 11/03 (4) Gastroesophageal reflux disease: Code(s): K21.9 - Gastro-esophageal reflux disease without esophagitis Status: Acute Assessment and Plan: PPI (5) Former smoker: Code(s): Z87.891 - Personal history of nicotine dependence Status: Acute Assessment and Plan: Discussed need to continue abstaining 11/02 Plan Assessment and Plan (1) Acute and chronic respiratory failure with hypoxia: ?Code(s): J96.21 - Acute and chronic respiratory failure with hypoxia ?Status:?Acute ?Assessment and Plan: ?admit to IMU ?initially required BiPAP ?continue Trelegy at nighttime (2) Acute exacerbation of chronic obstructive pulmonary disease: ?Code(s): J44.1 - Chronic obstructive pulmonary disease with (acute) exacerbation ?Status:?Acute ?Assessment and Plan: ?breathing treatments ?started on Rocephin and Zithromax ?will add systemic steroids (3) Influenza A: ?Code(s): J10.1 - Influenza due to other identified influenza virus with other respiratory manifestations ?Status:?Acute ?Assessment and Plan: ?started on Tamiflu ?supportive care (4) Gastroesophageal reflux disease: ?Code(s): K21.9 - Gastro-esophageal reflux disease without esophagitis ?Status:?Acute ?Assessment and Plan: ?PPI (5) Former smoker: ?Code(s): Z87.891 - Personal history of nicotine dependence ?Status:?Acute ?Assessment and Plan: ?unchanged Plan Assessment and Plan (1) Acute and chronic respiratory failure with hypoxia: ?Code(s): J96.21 - Acute and chronic respiratory failure with hypoxia ?Status:?Acute ?Assessment and Plan: ?admit to IMU ?initially required BiPAP ?continue Trelegy at nighttime 11/01/23: Improved; on Augmentin today 11/04/23: Will DC tomorrow (2) Acute exacerbation of chronic obstructive pulmonary disease: ?Code(s): J44.1 - Chronic obstructive pulmonary disease with (acute) exacerbation ?Status:?Acute ?Assessment and Plan: ?breathing treatments ?started on Rocephin and Zithromax; now on Augmentin ?will add systemic steroids (3) Influenza A: ?Code(s): J10.1 - Influenza due to other identified influenza virus with other respiratory manifestations ?Status:?Acute ?Assessment and Plan: ?started on Tamiflu ?supportive care (4) Gastroesophageal reflux disease: ?Code(s): K21.9 - Gastro-esophageal reflux disease without esophagitis ?Status:?Acute ?Assessment and Plan: ?PPI (5) Former smoker: ?Code(s): Z87.891 - Personal history of nicotine dependence ?Status:?Acute ?Assessment and Plan: ?unchanged Obesity. BMI 34. Diet and lifestyle modification counseling Time Spent With Patient Time with patient: 25 - 35 minutes Subjective Date/time seen: 11/04/23 15:01 Interval history: Not eager to go home; wants to stay back for another day. Not in respiratory distress. Review of Systems Review of Systems: Shortness of breath, fatigue All systems reviewed & are unremarkable except as noted in HPI and below Constitutional: Constitution
[2023-11-04] MEDS: MELATONIN 5 MG TABLET 10 MG PO (21:03)
[2023-11-04] MEDS: hydrOXYzine HCL 25 MG TABLET PO (21:03)
[2023-11-04] MEDS: LATANOPROST 0.005% OP SOLN 2.5 ML BTL 1 DROP EACH EYE (21:05)
[2023-11-05] VITALS (8 sets, daily range): BP systolic 140–165; BP diastolic 92; PULSE 82–99; RESP 18–24; TEMP 36.2–36.6; O2SAT 96–100
[2023-11-05] MEDS: IPRATROPIUM 0.5 MG/ALBUTEROL SULFATE 2.5 MG AMPUL.NEB 3 ML INHALATION ×3 (02:09→12:53)
[2023-11-05] MEDS: HYDROcodone/acetaminophen (*CRX) 5-325 MG TABLET 1 TAB PO ×2 (03:13→09:58)
[2023-11-05 05:47] LABS: Basophils Percent Auto 0.1 % (0.2-1.2); Eosinophils Percent Auto 0.1 % (0-4.4); Hematocrit 36.9 % (42.0-52.0); Hemoglobin 12.2 g/dL (14.0-18.0); Immature Granulocyte Absolute 0.06 K/mm3 (0.00-0.031); Immature Granulocyte Percent A 0.5 % (0-0.5); Lymphocytes Absolute Auto 1.38 K/mm3 (0.9-3.2); Lymphocytes Percent Auto 11.4 % (18.3-44.2); Mean Corpuscular HGB Conc 33.1 g/dl (32-36); Mean Corpuscular Hemoglobin 32.1 pg (26-34); Mean Corpuscular Volume 97.1 fl (80-100); Mean Platelet Volume 10.3 fl (7.4-10.4); Monocytes Absolute Auto 1.2 K/mm3 (0.1-0.6); Monocytes Percent Auto 10.2 % (2.6-8.5); Neutrophils Absolute Auto 9.4 K/mm3 (1.3-6.7); Neutrophils Percent Auto 77.7 % (45.5-73.1); Platelet Count Result 263 k/mm3 (150-375); Red Cell Distribution Width 13.6 % (11.5-14.5); White Blood Count 12.1 K/mm3 (4.5-10.0)
[2023-11-05 05:58] LABS: Alanine Aminotransferase 25 U/L (6-50); Albumin Level 3.3 g/dL (3.5-5.1); Alkaline Phosphatase 53 U/L (38-126); Anion Gap 7 mmol/L (8-16); Aspartate Amino Transferase 19 U/L (17-59); Bilirubin,Total 0.6 mg/dL (0.2-1.3); Blood Urea Nitrogen 19 mg/dL (9-20); Calcium 8.6 mg/dL (8.4-10.2); Carbon Dioxide 30 mmol/L (22-30); Chloride 104 mmol/L (98-107); Estimated CRCL calculation 111 ml/min; Estimated Glomerular Filt Rate > 60; Glucose 105 mg/dL (65-110); Potassium 3.5 mmol/L (3.4-5.0); Sodium 141 mmol/L (137-145)
[2023-11-05] MEDS: ROFLUMILAST 500 MCG TABLET PO (09:56)
[2023-11-05] MEDS: PANTOPRAZOLE 40 MG TABLET PO (09:57)
[2023-11-05] MEDS: CALCIUM CARBONATE (TUMS) 500 MG (200 MG ELEMENTAL) 750 MG PO (09:57)
[2023-11-05] MEDS: AMOXICILLIN/CLAVULANATE K 875-125 MG TAB 1 TABLET PO (09:57)
[2023-11-05] MEDS: ASPIRIN 81 MG CHEWABLE TABLET PO (09:58)
[2023-11-05] MEDS: MUPIROCIN 2% OINT 22 GM TUBE 1 APPLIC TOPICAL (09:59)
[2023-11-05] MEDS: methylPREDNISolone SOD SUCC 40 MG VIAL IV PUSH (09:59)
--- NOTE | 2023-11-05 12:25 | PM.DS ---
DS: Admitting Diagnosis Discharge Date 11/05/23 Admitting Diagnosis Dyspnea Acute hypoxic respiratory failure COPD exacerbation Influenza A infection DS: Discharge Diagnosis Discharge Diagnosis Plan Dyspnea Acute hypoxic respiratory failure COPD exacerbation Influenza A infection Assessment and Plan (1) Acute and chronic respiratory failure with hypoxia: ?Code(s): J96.21 - Acute and chronic respiratory failure with hypoxia ?Status:?Acute ?Assessment and Plan: ?admit to IMU ?initially required BiPAP ?continue Trelegy at nighttime (2) Acute exacerbation of chronic obstructive pulmonary disease: ?Code(s): J44.1 - Chronic obstructive pulmonary disease with (acute) exacerbation ?Status:?Acute ?Assessment and Plan: ?breathing treatments ?started on Rocephin and Zithromax ?will add systemic steroids (3) Influenza A: ?Code(s): J10.1 - Influenza due to other identified influenza virus with other respiratory manifestations ?Status:?Acute ?Assessment and Plan: ?started on Tamiflu ?supportive care (4) Gastroesophageal reflux disease: ?Code(s): K21.9 - Gastro-esophageal reflux disease without esophagitis ?Status:?Acute ?Assessment and Plan: ?PPI (5) Former smoker: ?Code(s): Z87.891 - Personal history of nicotine dependence ?Status:?Acute ?Assessment and Plan: ?unchanged Plan Assessment and Plan (1) Acute and chronic respiratory failure with hypoxia: ?Code(s): J96.21 - Acute and chronic respiratory failure with hypoxia ?Status:?Acute ?Assessment and Plan: ?admit to IMU ?initially required BiPAP ?continue Trelegy at nighttime 11/01/23: Improved; on Augmentin today 11/05/23: Will DC on Medrol dose Tip and Breo Ellipta (2) Acute exacerbation of chronic obstructive pulmonary disease: ?Code(s): J44.1 - Chronic obstructive pulmonary disease with (acute) exacerbation ?Status:?Acute ?Assessment and Plan: ?breathing treatments ?started on Rocephin and Zithromax; now on Augmentin ?will add systemic steroids 11/05/23: Will DC on Medrol dose Tip and Breo Ellipta (3) Influenza A: ?Code(s): J10.1 - Influenza due to other identified influenza virus with other respiratory manifestations ?Status:?Acute ?Assessment and Plan: ?started on Tamiflu ?supportive care (4) Gastroesophageal reflux disease: ?Code(s): K21.9 - Gastro-esophageal reflux disease without esophagitis ?Status:?Acute ?Assessment and Plan: ?PPI (5) Former smoker: ?Code(s): Z87.891 - Personal history of nicotine dependence ?Status:?Acute ?Assessment and Plan: ?unchanged Obesity. BMI 34. Diet and lifestyle modification counseling DS: Summary Hospital Course Reason for hospitalization: Shortness of breath; Dyspnea on exertion Acute hypoxic respiratory failure Influenza A infection Hospital Course: Chief Complaint: Dyspnea; Shortness of breath Narrative: ?This is a 63-year-old male with past medical history significant for chronic hypoxic respiratory failure on supplemental oxygen, home vent at home, COPD/emphysema, chronic collapse of right upper lobe, GERD. patient presents to the emergency room due to worsening shortness of breath in spite of using his nebulizer his oxygen his Trelegy, cough. in emergency room patient's? tested positive for influenza type A tested negative for influenza type B RSV and COVID.? Upon arrival to emergency room patient required the need of BiPAP he was able to we weaned off to supplemental oxygen by nasal cannula.? A chest x-ray was reported as:1. Emphysema. 2. 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 3. Mild atelectasis in right lower lung zone. Patient has been admitted for further evaluation management and treatment. Assessment and Plan (1) Acute and chronic respiratory failure with hypoxia: ?Code(s): J96.21 - Acute and chronic respirato
== END 2023-11-05 13:55 | disposition home or self-care (01) | DRG 193 ==
LOC: ANHED 22:16 → ANHIMU 22:41 → ANH3MED 11-01 13:39
PROVIDERS: Admitting Provider Internal Medicine; Emergency Provider Student in an Organized Health Care Education/Training Program; PCP Family Medicine; Visit Provider Internal Medicine
DX: J10.1 Influenza due to other identified influenza virus with other respiratory manifestations (principal); J43.9 Emphysema, unspecified; J96.21 Acute and chronic respiratory failure with hypoxia; K21.9 Gastro-esophageal reflux disease without esophagitis; M19.90 Unspecified osteoarthritis, unspecified site; N40.0 Benign prostatic hyperplasia without lower urinary tract symptoms; Z99.81 Dependence on supplemental oxygen; Z87.891 Personal history of nicotine dependence; Z20.822 Contact with and (suspected) exposure to COVID-19; Z86.718 Personal history of other venous thrombosis and embolism; Z98.41 Cataract extraction status, right eye; Z98.42 Cataract extraction status, left eye
CPT/HCPCS: 36415; 36600; 71045; 80048; 80053; 82805; 83735; 83880; 84484; 85025; 85027; 87040; 87637; 93005; 94002; 94640; 94669; 96361; 96374; 96375; 99285; A9270; G0378; J0456; J0696; J1885; J2060; J2920; J7030

== ENCOUNTER 2024-01-14 10:27 | Outpatient (CLI) | payer MEDICARE, MEDICAID, SELFPAY ==
[2024-01-14 11:47] LABS: Cholesterol 194 mg/dL (0-200); HDL Direct 55 mg/dL; Triglycerides 70 mg/dL (<150)
[2024-01-14 11:58] LABS: LDL Cholesterol Direct 109 mg/dL
== END 2024-01-14 10:28 | disposition home or self-care (01) ==
PROVIDERS: PCP Family Medicine; Visit Provider Internal Medicine Cardiovascular Disease
DX: R07.9 Chest pain, unspecified (principal); R00.0 Tachycardia, unspecified
CPT/HCPCS: 36415; 80061

== ENCOUNTER 2024-02-11 11:27 | Emergency (ER) | payer MEDICARE, MEDICAID, SELFPAY ==
[2024-02-11] VITALS (7 sets, daily range): BP systolic 131–139; BP diastolic 85–107; PULSE 82–100; RESP 16–19; TEMP 36.7; O2SAT 97–100
--- NOTE | ~2024-02-11 | XR_ITS ---
EXAMINATION: XR chest 2V DATE: 02/11/2024 12:32 INDICATION: Shortness of breath. TECHNIQUE: Frontal and lateral views of the chest were obtained. COMPARISON: Chest single view 10/29/2023 FINDINGS: There are lucencies in the lungs, consistent with emphysema. There is chronic collapse of r ight upper lobe with endobronchial valves. No pleural effusion or pneumothorax. The heart size is nor mal. IMPRESSION: 1. Emphysema. 2. 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 Reviewed, dictated and finalized at location A.
--- NOTE | 2024-02-11 11:30 | ECG_ITS ---
SEE SCANNED COPY FOR CONFIRMED REPORT. MTDD
[2024-02-11 12:01] LABS: Basophils Absolute Auto 0.1 K/mm3 (0.0-0.1); Basophils Percent Auto 0.8 % (0.2-1.2); Eosinophils Absolute Auto 0.1 K/mm3 (0-0.3); Eosinophils Percent Auto 1.3 % (0-4.4); Hematocrit 45.9 % (42.0-52.0); Hemoglobin 14.8 g/dL (14.0-18.0); Immature Granulocyte Absolute 0.01 K/mm3 (0.00-0.031); Immature Granulocyte Percent A 0.2 % (0-0.5); Lymphocytes Absolute Auto 0.73 K/mm3 (0.9-3.2); Lymphocytes Percent Auto 11.9 % (18.3-44.2); Mean Corpuscular HGB Conc 32.2 g/dl (32-36); Mean Corpuscular Hemoglobin 31.6 pg (26-34); Mean Corpuscular Volume 98.1 fl (80-100); Mean Platelet Volume 10.7 fl (7.4-10.4); Monocytes Absolute Auto 0.5 K/mm3 (0.1-0.6); Monocytes Percent Auto 8.7 % (2.6-8.5); Neutrophils Absolute Auto 4.7 K/mm3 (1.3-6.7); Neutrophils Percent Auto 77.1 % (45.5-73.1); Platelet Count Result 276 k/mm3 (150-375); Red Blood Count 4.68 M/mm3 (4.6-6.20); Red Cell Distribution Width 13.2 % (11.5-14.5); White Blood Count 6.1 K/mm3 (4.5-10.0)
[2024-02-11 12:29] LABS: Alanine Aminotransferase 21 U/L (6-50); Albumin Level 4.7 g/dL (3.5-5.1); Alkaline Phosphatase 77 U/L (38-126); Anion Gap 7 mmol/L (4-12); Aspartate Amino Transferase 26 U/L (17-59); Bilirubin,Total 0.8 mg/dL (0.2-1.3); Blood Urea Nitrogen 23 mg/dL (9-20); Calcium 9.6 mg/dL (8.4-10.2); Carbon Dioxide 25 mmol/L (22-30); Chloride 109 mmol/L (98-107); Estimated CRCL calculation 97 ml/min; Estimated Glomerular Filt Rate > 60; Glucose 102 mg/dL (65-110); Potassium 4.3 mmol/L (3.4-5.0); Sodium 141 mmol/L (137-145)
[2024-02-11 12:39] LABS: Troponin I < 0.012 ng/mL (0.000-0.034)
--- NOTE | 2024-02-11 13:56 | ED.SOB ---
HPI - SOB/Dyspnea General Chief Complaint: Shortness of Breath/Dyspnea Stated Complaint: INCREASED SHORT OF BREATH Time Seen by Provider: 02/11/24 13:05 History of Present Illness HPI Narrative: 64-year-old male present to the emergency department for evaluation increased fatigue and shortness of breath. patient states that he had multiple sick contacts over the last few days states he possibly had some anxiety about having influenza. Patient states that he did have some increased shortness of breath today but denies any shortness of breath emergency department. Patient is saturating well on his normal 3 L. Related Data Home Medications Medication Instructions Recorded Confirmed hydrocodone 5 mg-acetaminophen 325 1 tablet PO Q6H PRN Pain 05/22/22 02/06/24 mg tablet latanoprost 0.005 % eye drops 1 drp EACH EYE DAILY 11/20/22 02/06/24 fluticasone propionate 50 1 spray intranasal BID PRN 10/29/23 02/06/24 mcg/actuation nasal Allergic Symptoms spray,suspension lidocaine 5 % topical patch 2 patch topical DAILY 10/29/23 02/06/24 omeprazole 20 mg capsule,delayed 20 mg PO DAILY 10/29/23 02/06/24 release Allergies Allergy/AdvReac Type Severity Reaction Status Date / Time oxycodone AdvReac Itching Verified 02/06/24 09:27 Review of Systems Review of Systems: All systems reviewed & are unremarkable except as noted in HPI and below PMFSH Past Medical History Medical History BPH (benign prostatic hyperplasia) Chronic deep vein thrombosis (DVT) Linear echogenic filling defect in the right femoral vein, likely chronic thrombus on venous dopplers 11/2020. Chronic respiratory failure with hypoxia, on home oxygen therapy COPD with emphysema Chronic steroid therapy, 10 milligrams prednisone daily. Gastroesophageal reflux disease Hiatal hernia Osteoarthritis Pneumonia Surgical History Surgical History H/O colonoscopy History of bilateral cataract extraction History of lung surgery Family History Family History Father Acute myocardial infarction Congestive heart failure Lung cancer Mother Diabetes mellitus Dementia Sibling Diabetes mellitus Lung cancer Social History Social History Social History: Surrogate decision maker: [place], . Code status: Full code. Smoking packs per day: 1 Smoking cigarettes per day: 20.0 Years smoked: 48 Smoking pack-years: 48.00 Smoking status: Former smoker Tobacco type: cigarettes Second hand tobacco smoke exposure: Yes Additional smoking assessment comments: pt used to smoke cigarettes and crack cocaine for 38 years Quit december 2017 Alcohol intake: current Drinks per week: 2 Alcohol use details: Patient currently drinks 2 beers and a shot on the weekends Substance use: former Substance use type: crack/cocaine Do You Feel Safe in your Home?: Yes Lack of Transportation: No Lack of Food: Never True Current Housing: I Have Housing Concerned About Future Housing: No Difficulty Paying Gas/Electric Bills: No Difficulty Paying for Meds: No Currently Unemployed: No Education: Decline to Answer Difficulty w/ Childcare or Family Care: No Living arrangements: with family Additional living arrangements comments: Patient lives with his in [place]. 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 Gender identity (if verbalized by the patient): Male Sexual Orientation (if Verbalized by the Patient): Straight or Heterosexual Spiritual care concerns: No Exam Narrative: APPEARANCE: Well appearing, no pain, no distress, well-nourished. HEAD: normocephalic, atraumatic. EYES: PERRLA/EOMI, conjunctivae cl
[2024-02-11] MEDS: ALBUTEROL SULFATE NEB 2.5 MG/3 ML INH INHALATION (14:04)
[2024-02-11] MEDS: methylPREDNISolone SOD SUCC 125 MG VIAL IV PUSH (14:13)
[2024-02-11 14:15] LABS: Base Excess ABG 2.2 mEq/l (+/-2.0); Carboxyhemoglobin 0.6 % THb (0-2.0); Fractional Inspired Oxygen 32 %; HCO3 ABG 27.6 mEq/l (22.0-26.0); Methemoglobin ABG 0.1 %THb (0-1.5); Oxygen Content ABG 20.3 %vol (16.0-22.0); Oxygen Saturation ABG 96.3 % (95.0-100.0); Oxyhemoglobin 95.4 % THb (90.0-100.0); PCO2 ABG 45.7 mmHg (35.0-45.0); PO2 ABG 84.7 mmHg (80.0-100.0); PO2 FiO2 Ratio Arterial Blood 2.65 %; Reduced Hemoglobin 3.9 %THb (0-5.0); Total Hemoglobin 15.1 g/dL (12.0-18.0); pH ABG 7.399 (7.350-7.450)
[2024-02-11 14:16] LABS: Device NASAL CANNULA; Modified Allen's Test Pass; Site Drawn RIGHT RADIAL
--- NOTE | 2024-02-11 14:40 | ECG_ITS ---
SEE SCANNED COPY FOR CONFIRMED REPORT. MTDD
[2024-02-11 14:56] LABS: Troponin I < 0.012 ng/mL (0.000-0.034)
[2024-02-11 15:03] LABS: Influenza A QL RT-PCR Negative (Negative); Influenza B QL RT-PCR Negative (Negative); RSV RNA, RT-PCR Negative (Negative); SARS-CoV-2 RNA PCR Negative (Negative)
== END 2024-02-11 17:00 | disposition home or self-care (01) ==
PROVIDERS: Student in an Organized Health Care Education/Training Program; Emergency Provider Emergency Medicine; PCP Nurse Practitioner Family
DX: J43.9 Emphysema, unspecified (principal); J44.9 Chronic obstructive pulmonary disease, unspecified; Z20.822 Contact with and (suspected) exposure to COVID-19; J96.11 Chronic respiratory failure with hypoxia; Z99.81 Dependence on supplemental oxygen; N40.0 Benign prostatic hyperplasia without lower urinary tract symptoms; K21.9 Gastro-esophageal reflux disease without esophagitis; K44.9 Diaphragmatic hernia without obstruction or gangrene; M19.90 Unspecified osteoarthritis, unspecified site; Z86.718 Personal history of other venous thrombosis and embolism; Z87.01 Personal history of pneumonia (recurrent); Z87.891 Personal history of nicotine dependence; Z98.42 Cataract extraction status, left eye; Z98.41 Cataract extraction status, right eye
CPT/HCPCS: 36415; 36600; 71046; 80053; 82375; 82805; 83050; 84484; 85025; 87637; 93005; 94640; 96374; 99284; J2919

== ENCOUNTER 2024-02-19 09:30 | Outpatient (CLI) | payer MEDICARE, MEDICAID, SELFPAY ==
--- NOTE | ~2024-02-19 | CT_ITS ---
CT Scan of the Chest without Contrast: Clinical Indication: Lung cancer screening, nicotine dependence Technique: Contiguous sections were acquired throughout the chest without intravenous contrast. Dose reduction technique was used on this scan by utilizing automated exposure control and iterative recon struction technique. The dose-length product (DLP) was 261.42 mGy-cm. COMPARISON: 02/17/2023 Findings: There is no evidence of any significant mediastinal, hilar or axillary lymphadenopathy. The mediastin al soft tissues appear normal. There is no evidence of pleural or pericardial effusion. There is chronic complete right upper lobe atelectasis with endobronchial valves present. Moderate em physema present. There is linear scarring right lower lobe. Images through the upper abdomen reveal no abnormalities. Impression: Lung RADS 2: Benign appearance. 12 month follow-up screening CT advised. Chronic complete right upper lobe atelectasis with endobronchial valves. Moderate emphysema. Reviewed, dictated and finalized at [facility]. Impression: Lung RADS 2: Benign appearance. 12 month follow-up screening CT advised. Chronic complete right upper lobe atelectasis with endobronchial valves. Moderate emphysema.
== END 2024-02-19 09:31 | disposition home or self-care (01) ==
PROVIDERS: PCP Nurse Practitioner Family; Visit Provider Nurse Practitioner Family
DX: Z12.2 Encounter for screening for malignant neoplasm of respiratory organs (principal); Z87.891 Personal history of nicotine dependence; J43.9 Emphysema, unspecified
CPT/HCPCS: 71271

== ENCOUNTER 2024-03-24 09:19 | Emergency (ER) | payer MEDICARE, MEDICAID, SELFPAY ==
[2024-03-24] VITALS (11 sets, daily range): BP systolic 104–147; BP diastolic 63–98; PULSE 94–118; RESP 13–21; TEMP 36.8; O2SAT 92–99
--- NOTE | ~2024-03-24 | XR_ITS ---
EXAMINATION: XR chest 1V portable DATE: 03/24/2024 09:43 INDICATION: Cough. Chills. COPD. TECHNIQUE: frontal view of the chest was obtained. COMPARISON: Chest radiograph dated 02/11/[address] dated 02/26/2024 FINDINGS: Volume loss and architectural distortion in the right hemithorax. Postoperative changes with consolid ation in the right suprahilar region consistent with chronic right upper lobe collapse with 3 pulmona ry endobronchial valves evident at the right upper lobe are segmental bronchi on prior CT. Unchanged subtle opacities in the right mid to lower lung zone corresponding to additional right lower lobar at electasis/scarring and prior CT. Increased lucency throughout the remainder of the right hemithorax c onsistent with emphysema accentuated by compensatory hyperexpansion secondary to the right upper lobe collapse. The left lung remains clear. No pulmonary edema, pleural effusion or pneumothorax. Heart s ize is normal. IMPRESSION: 1. Emphysema with right upper lobe are and bronchial valves and secondary right upper lobe collapse. 2. Additional unchanged chronic atelectasis/scarring the right mid to lower lung zone. No acute cardi opulmonary disease. Reviewed, dictated and finalized at location A. IMPRESSION: 1. Emphysema with right upper lobe are and bronchial valves and secondary right upper lobe collapse. 2. Additional unchanged chronic atelectasis/scarring the right mid to lower kenia g zone. No acute cardiopulmonary disease.
--- NOTE | 2024-03-24 09:21 | ECG_ITS ---
Test Date: 2024-03-24 09:31:42 Measurements Intervals [place] Rate: 117 P: 71 TX: 142 QRS: 28 QRSD: 83 T: 66 QT: 303 QTc: 423 Interpretive Statements SINUS TACHYCARDIA No previous ECG available for comparison Electronically Signed On 03-24-2024 10:53:47 CDT by Colleen Sawyer M.D.
--- NOTE | 2024-03-24 09:30 | ED.SOB ---
HPI - SOB/Dyspnea General Chief Complaint: Shortness of Breath/Dyspnea Stated Complaint: sob Time Seen by Provider: 03/24/24 09:22 History of Present Illness HPI Narrative: Pt presents with SOB that awoke him from sleep about 0300 this morning. Pt checked his portable pulse ox and his HR was 140. Pt denies CP. Pt says he has had productive cough with yellow sputm and some chils so is concerned about pneumonia. Pt denies fever. Related Data Home Medications Medication Instructions Recorded Confirmed hydrocodone 5 mg-acetaminophen 325 1 tablet PO Q6H PRN Pain 05/22/22 02/06/24 mg tablet latanoprost 0.005 % eye drops 1 drp EACH EYE DAILY 11/20/22 02/06/24 fluticasone propionate 50 1 spray intranasal BID PRN 10/29/23 02/06/24 mcg/actuation nasal Allergic Symptoms spray,suspension lidocaine 5 % topical patch 2 patch topical DAILY 10/29/23 02/06/24 omeprazole 20 mg capsule,delayed 20 mg PO DAILY 10/29/23 02/06/24 release Allergies Allergy/AdvReac Type Severity Reaction Status Date / Time oxycodone AdvReac Itching Verified 02/06/24 09:27 Review of Systems Review of Systems: All systems reviewed & are unremarkable except as noted in HPI and below PMFSH Past Medical History Medical History BPH (benign prostatic hyperplasia) Chronic deep vein thrombosis (DVT) Linear echogenic filling defect in the right femoral vein, likely chronic thrombus on venous dopplers 11/2020. Chronic respiratory failure with hypoxia, on home oxygen therapy COPD with emphysema Chronic steroid therapy, 10 milligrams prednisone daily. Gastroesophageal reflux disease Hiatal hernia Osteoarthritis Pneumonia Surgical History Surgical History H/O colonoscopy History of bilateral cataract extraction History of lung surgery Family History Family History Father Acute myocardial infarction Congestive heart failure Lung cancer Mother Diabetes mellitus Dementia Sibling Diabetes mellitus Lung cancer Social History Social History Social History: Surrogate decision maker: [place], . Code status: Full code. Smoking packs per day: 1 Smoking cigarettes per day: 20.0 Years smoked: 48 Smoking pack-years: 48.00 Smoking status: Former smoker Tobacco type: cigarettes Second hand tobacco smoke exposure: Yes Additional smoking assessment comments: pt used to smoke cigarettes and crack cocaine for 38 years Quit december 2017 Alcohol intake: current Drinks per week: 2 Alcohol use details: Patient currently drinks 2 beers and a shot on the weekends Substance use: former Substance use type: crack/cocaine Do You Feel Safe in your Home?: Yes Lack of Transportation: No Lack of Food: Never True Current Housing: I Have Housing Concerned About Future Housing: No Difficulty Paying Gas/Electric Bills: No Difficulty Paying for Meds: No Currently Unemployed: No Education: Decline to Answer Difficulty w/ Childcare or Family Care: No Living arrangements: with family Additional living arrangements comments: Patient lives with his in [place]. 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 Gender identity (if verbalized by the patient): Male Sexual Orientation (if Verbalized by the Patient): Straight or Heterosexual Spiritual care concerns: No Exam Const: General: healthy appearing and no acute distress Nutritional Appearance: well nourished Orientation/consciousness: patient oriented x3 Limitations: no limitations HENMT: Mouth: Yes Normal oral and palatal mucosa present Eyes: EOM: EOMs intact bilaterally Neck: Neck: normal visual inspection, no lymphadenopathy a
[2024-03-24] MEDS: LEVALBUTEROL NEB 1.25 MG/3 ML INHALATION (09:49)
[2024-03-24 10:03] LABS: Prothrombin Time 13.2 Seconds (11.1-14.7)
[2024-03-24 10:04] LABS: Partial Thromboplastin Time 31.7 Seconds (22.3-36.8)
[2024-03-24 10:08] LABS: D Dimer < 0.27 ug/mL (<0.48)
[2024-03-24 10:13] LABS: Alanine Aminotransferase 30 U/L (6-50); Albumin Level 4.6 g/dL (3.5-5.1); Alkaline Phosphatase 96 U/L (38-126); Anion Gap 6 mmol/L (4-12); Aspartate Amino Transferase 38 U/L (17-59); Bilirubin,Total 0.8 mg/dL (0.2-1.3); Blood Urea Nitrogen 20 mg/dL (9-20); Calcium 9.2 mg/dL (8.4-10.2); Carbon Dioxide 26 mmol/L (22-30); Chloride 107 mmol/L (98-107); Estimated CRCL calculation 86 ml/min; Estimated Glomerular Filt Rate > 60; Glucose 127 mg/dL (65-110); Potassium 4.4 mmol/L (3.4-5.0); Sodium 139 mmol/L (137-145)
[2024-03-24 10:15] LABS: Basophils Absolute Auto 0.1 K/mm3 (0.0-0.1); Eosinophils Absolute Auto 0.1 K/mm3 (0-0.3); Eosinophils Percent Auto 0.7 % (0-4.4); Hematocrit 43.5 % (42.0-52.0); Hemoglobin 14.3 g/dL (14.0-18.0); Immature Granulocyte Absolute 0.02 K/mm3 (0.00-0.031); Immature Granulocyte Percent A 0.3 % (0-0.5); Lymphocytes Absolute Auto 0.65 K/mm3 (0.9-3.2); Lymphocytes Percent Auto 9.3 % (18.3-44.2); Mean Corpuscular HGB Conc 32.9 g/dl (32-36); Mean Corpuscular Hemoglobin 31.8 pg (26-34); Mean Corpuscular Volume 96.7 fl (80-100); Mean Platelet Volume 10.9 fl (7.4-10.4); Monocytes Absolute Auto 1.1 K/mm3 (0.1-0.6); Monocytes Percent Auto 15.2 % (2.6-8.5); Neutrophils Absolute Auto 5.2 K/mm3 (1.3-6.7); Neutrophils Percent Auto 73.5 % (45.5-73.1); Platelet Count Result 258 k/mm3 (150-375); Red Cell Distribution Width 13.6 % (11.5-14.5)
[2024-03-24 10:18] LABS: NT Pro B Type Natriuretic Pept 34 pg/mL (19.9-100); Troponin I < 0.012 ng/mL (0.000-0.034)
--- NOTE | 2024-03-24 11:13 | PC.NURSE ---
REPORT TO AVELINA LEYVA. CARE TRANSFERRED
[2024-03-24 12:22] LABS: Influenza A QL RT-PCR Negative (Negative); Influenza B QL RT-PCR Negative (Negative); RSV RNA, RT-PCR Negative (Negative); SARS-CoV-2 RNA PCR Negative (Negative)
== END 2024-03-24 12:49 | disposition home or self-care (01) ==
PROVIDERS: Emergency Provider Emergency Medicine; PCP Nurse Practitioner Family
DX: J44.1 Chronic obstructive pulmonary disease with (acute) exacerbation (principal); J96.11 Chronic respiratory failure with hypoxia; Z99.81 Dependence on supplemental oxygen; K21.9 Gastro-esophageal reflux disease without esophagitis; K44.9 Diaphragmatic hernia without obstruction or gangrene; N40.0 Benign prostatic hyperplasia without lower urinary tract symptoms; M19.90 Unspecified osteoarthritis, unspecified site; Z86.718 Personal history of other venous thrombosis and embolism; Z87.891 Personal history of nicotine dependence; Z87.01 Personal history of pneumonia (recurrent); Z98.42 Cataract extraction status, left eye; Z98.41 Cataract extraction status, right eye
CPT/HCPCS: 36415; 71045; 80053; 83880; 84484; 85025; 85380; 85610; 85730; 87637; 93005; 94640; 99284

== ENCOUNTER 2024-08-25 10:22 | Outpatient (CLI) | payer MEDICARE, MEDICAID, SELFPAY ==
--- NOTE | ~2024-08-25 | MR_ITS ---
EXAMINATION: MR brain/brain stem wo con DATE: 08/25/2024 11:22 INDICATION: Personal history of other healed physical injury. TECHNIQUE: Magnetic resonance imaging (MRI) of the brain and brainstem was performed without intraven ous contrast. The patient terminated the exam early due to claustrophobia. COMPARISON: Brain MRI 02/20/2022 FINDINGS: There is no acute ischemic infarct. There are scattered areas of nonspecific increased T2-w eighted signal intensity in the cerebral white matter and baron. There is no abnormal mass lesion. The re are old infarcts in the left thalamus, baron, and right basal ganglia. The ventricles are normal in size. The mastoid air cells are normal. The paranasal sinuses are clear. The orbits are unremarkable . IMPRESSION: 1. 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 2. Moderate nonspecific cerebral white matter disease, which likely represents chronic small vessel i schemic disease. 3. The patient terminated the exam early due to claustrophobia. Reviewed, dictated and finalized at location A. RIBUTOR OF DIRECTORIES IMPRESSION: 1. 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 2. Moderate nonspecific cerebral white matter disease, which likely represents chronic small vessel ischemic disease. 3. The patient terminated the exam early due to claustrophobia.
== END 2024-08-25 10:23 | disposition home or self-care (01) ==
PROVIDERS: PCP Nurse Practitioner Family; Visit Provider Psychiatry & Neurology Neurology
DX: Z87.828 Personal history of other (healed) physical injury and trauma (principal); R90.82 White matter disease, unspecified
CPT/HCPCS: 70551

== ENCOUNTER 2024-09-05 09:50 | Emergency (ER) | payer MEDICARE, MEDICAID, SELFPAY ==
[2024-09-05] VITALS (25 sets, daily range): BP systolic 107–143; BP diastolic 85–108; PULSE 82–116; RESP 14–24; TEMP 36.4; O2SAT 95–100
--- NOTE | ~2024-09-05 | XR_ITS ---
EXAMINATION: XR chest 2V DATE: 09/05/2024 10:40 INDICATION: One week of dyspnea TECHNIQUE: PA and lateral views of the chest were obtained. COMPARISON: Chest radiograph dated 03/24/[address] dated 02/19/2024 FINDINGS: Stable appearance of volume loss and architectural distortion in the right hemithorax including chron ic right upper lobe collapse. Again seen are 3 endobronchial valves can be seen on the prior CT in th e segmental bronchi of the right upper lobe as seen on prior CT. Remainder of the lungs are clear. Ti ny bilateral pleural effusions with blunting at the posterior sulci. No pneumothorax. Heart size is n ormal. Mild thoracic spondylosis with bridging osteophytes at multiple levels consistent with diffuse idiopathic skeletal hyperostosis (DISH). IMPRESSION: 1. Stable appearance of volume loss and architectural distortion in the right hemithorax with right u pper lobar endobronchial valves and secondary chronic right upper lobe collapse. 2. Tiny bilateral pleural effusions. Reviewed, dictated and finalized at location A. RAM TECHNICIAN IMPRESSION: 1. Stable appearance of volume loss and architectural distortion in the right h emithorax with right upper lobar endobronchial valves and secondary chronic rig ht upper lobe collapse. 2. Tiny bilateral pleural effusions.
--- NOTE | 2024-09-05 09:56 | ECG_ITS ---
Test Date: 2024-09-05 09:58:28 Measurements Intervals [place] Rate: 104 P: 4 TN: 112 QRS: 32 QRSD: 93 T: 71 QT: 313 QTc: 413 Interpretive Statements SINUS TACHYCARDIA WITH SHORT TN INTERVAL BORDERLINE ECG Compared to ECG 03/24/2024 09:31:42 HEART RATE HAS DECREASED Short TN interval now present Electronically Signed On 09-05-2024 15:44:45 PHOTO LAB SPECIALIST by Jeremy Ibarra D.O.
--- NOTE | 2024-09-05 10:02 | ED_ITS ---
HPI - General Adult General Chief complaint: Shortness of Breath/Dyspnea Stated complaint: sob Time Seen by Provider: 09/05/24 10:01 Source: patient and family Mode of arrival: ambulatory Limitations: no limitations History of Present Illness HPI narrative: 64 YEARS OLD MALE CAME TO THE ED BY PRIVATE CAR FROM HOME WITH HIS DAUGHTER COMPLAINING OF INCREASED SHORTNESS OF BREATH, INCREASED COUGHING, INCREASED AMOUNT OF MUCUS PRODUCTION OVER THE LAST FEW DAYS. HISTORY OF COPD ON PULMONARY REHAB FOR THE LAST 6 YEARS 3 TIMES A WEEK, COULD NOT MAKE IT OVER THE LAST WEEK BECAUSE OF TRANSPORTATION ISSUES HE DENIES ANY FEVER OR CHILLS OR NAUSEA OR VOMITING OR CHEST PAIN OR BACK PAIN. Related Data Home Medications Medication Instructions Recorded Confirmed hydrocodone 5 mg-acetaminophen 325 1 tablet PO Q6H PRN Pain 05/22/22 08/11/24 mg tablet latanoprost 0.005 % eye drops 1 drp EACH EYE DAILY 11/20/22 08/11/24 lidocaine 5 % topical patch 2 patch topical DAILY 10/29/23 08/11/24 omeprazole 20 mg capsule,delayed 20 mg PO DAILY 10/29/23 08/11/24 release fluticasone furoate 100 1 inh inhalation Q24H 08/06/24 08/11/24 mcg-vilanterol 25 mcg/dose inhalation powder (Breo Ellipta) Allergies Allergy/AdvReac Type Severity Reaction Status Date / Time oxycodone AdvReac Itching Verified 08/11/24 09:45 Review of Systems Review of Systems: All systems reviewed & are unremarkable except as noted in HPI and below PMFSH Past Medical History Medical History BPH (benign prostatic hyperplasia) Chronic deep vein thrombosis (DVT) Linear echogenic filling defect in the right femoral vein, likely chronic thrombus on venous dopplers 11/2020. Chronic respiratory failure with hypoxia, on home oxygen therapy COPD with emphysema Chronic steroid therapy, 10 milligrams prednisone daily. Gastroesophageal reflux disease Hiatal hernia Osteoarthritis Pneumonia Surgical History Surgical History H/O colonoscopy History of bilateral cataract extraction History of lung surgery Family History Family History Father Acute myocardial infarction Congestive heart failure Lung cancer Mother Diabetes mellitus Dementia Sibling Diabetes mellitus Lung cancer Social History Social History Social History: Surrogate decision maker: [place], . Code status: Full code. Smoking packs per day: 1 Smoking cigarettes per day: 20.0 Years smoked: 48 Smoking pack-years: 48.00 Smoking status: Former smoker Tobacco type: cigarettes Second hand tobacco smoke exposure: Yes Additional smoking assessment comments: pt used to smoke cigarettes and crack cocaine for 38 years Quit december 2017 Alcohol intake: current Drinks per week: 2 Alcohol use details: Patient currently drinks 2 beers and a shot on the weekends Substance use: former Substance use type: crack/cocaine Do You Feel Safe in your Home?: Yes Lack of Transportation: No Lack of Food: Never True Current Housing: I Have Housing Concerned About Future Housing: No Difficulty Paying Gas/Electric Bills: No Difficulty Paying for Meds: No Currently Unemployed: No Education: Decline to Answer Difficulty w/ Childcare or Family Care: No Living arrangements: with family Additional living arrangements comments: Patient lives with his in [place]. 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 Gender identity (if verbalized by the patient): Male Sexual Orientation (if Verbalized by the Patient): Straight or Heterosexual Spiritual care concerns: No Exam Narrative: GENERAL APPEARANCE: WELL-DEVELOPED, WELL-NOURISHED SKIN: NORMAL COLOR HEAD: NORMOCEPHALIC, NONTRAUMATIC EYES: CLEAR CONJUNCTIVA ENT: OROPHARYNX NORMAL, EARS NORMAL, NOSE NORMAL NECK: SUPPLE, NONTENDER CHEST AND RESPIRATORY: AIRWAY PATENT, LABORED BREATHING, SEVERE DIMINUTION OF AIR ENTRY, FINE WHEEZING BILATERALLY, ALMOST NO SOUND DURING EXPIRATION HEART: REGULAR RATE/RHYTHM ABDOMEN: SOFT, NONTENDER, NO ORGANOMEGALY, QUIET BOWEL SOUNDS VASCULAR: NORMAL PERIPHERAL PULSES, NORMAL CAPILLARY REFILL. 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 TESTED, NO GROSS MOTOR DEFICIT Course Vital Signs Vital signs: Vital Signs Temperature 36.4 C 09/05/24 09:57 Pulse Rate 111 H 09/05/24 09:57 Respiratory Rate 20 09/05/24 09:57 Blood Pressure 135/100 H 09/05/24 09:57 Pulse Oximetry 100 09/05/24 09:57 Oxygen Delivery Nasal Cannula 09/05/24 09:57 Oxygen Flow Rate 3 09/05/24 09:57 Temperature 36.4 C 09/05/24 09:57 Pulse Rate 108 H 09/05/24 12:20 Respiratory Rate 18 09/05/24 12:20 Blood Pressure 126/85 09/05/24 10:23 Pulse Oximetry 100 09/05/24 10:23 Oxygen Delivery Nasal Cannula 09/05/24 10:20 Oxygen Flow Rate 3 09/05/24 10:20 Medical Decision Making Vital Signs Vital Signs: Vital Signs Temperature 36.4 C 09/05/24 09:57 Pulse Rate 111 H 09/05/24 09:57 Respiratory Rate 20 09/05/24 09:57 Blood Pressure 135/100 H 09/05/24 09:57 Pulse Oximetry 100 09/05/24 09:57 Oxygen Delivery Nasal Cannula 09/05/24 09:57 Oxygen Flow Rate 3 09/05/24 09:57 Temperature 36.4 C 09/05/24 09:57 Pulse Rate 108 H 09/05/24 12:20 Respiratory Rate 18 09/05/24 12:20 Blood Pressure 126/85 09/05/24 10:23 Pulse Oximetry 100 09/05/24 10:23 Oxygen Delivery Nasal Cannula 09/05/24 10:20 Oxygen Flow Rate 3 09/05/24 10:20 Lab Data 09/05/24 10:18 09/05/24 10:18 Labs: Lab Results 09/05/24 09/05/24 Range/Units 10:17 10:18 WBC 6.2 (4.5-10.0) K/mm3 RBC 4.35 L (4.6-6.20) M/mm3 Hgb 13.9 L (14.0-18.0) g/dL Hct 41.8 L (42.0-52.0) % MCV 96.1 (80-100) fl MCH 32.0 (26-34) pg MCHC 33.3 (32-36) g/dl RDW 13.8 (11.5-14.5) % Plt Count 279 (150-375) k/mm3 MPV 10.8 H (7.4-10.4) fl Immature Gran % (Auto) 0.2 (0-0.5) % Neut % (Auto) 75.2 H (45.5-73.1) % Lymph % (Auto) 13.5 L (18.3-44.2) % [place] % (Auto) 7.5 (2.6-8.5) % Eos % (Auto) 2.6 (0-4.4) % Baso % (Auto) 1.0 (0.2-1.2) % Lymph # (Auto) 0.83 L (0.9-3.2) K/mm3 [place] # (Auto) 0.5 (0.1-0.6) K/mm3 Eos # (Auto) 0.2 (0-0.3) K/mm3 Baso # (Auto) 0.1 (0.0-0.1) K/mm3 Abs Immat Gran (auto) 0.01 (0.00-0.031) K/mm3 Absolute Neuts (auto) 4.6 (1.3-6.7) K/mm3 Absolute Nucleated RBC 0.000 (0.0-0.012) K/mm3 Nucleated RBC % 0.0 (0.0-0.2) % Sodium 142 (137-145) mmol/L Potassium 3.7 (3.4-5.0) mmol/L Chloride 106 (98-107) mmol/L Carbon Dioxide 28 (22-30) mmol/L Anion Gap 8 (4-12) mmol/L BUN 19 (9-20) mg/dL Creatinine 0.80 (0.7-1.3) mg/dL Estim Creat Clear Calc 98 ml/min Estimated GFR > 60 (59 - ) Glucose 114 H (65-110) mg/dL Calcium 9.5 (8.4-10.2) mg/dL Total Bilirubin 0.6 (0.2-1.3) mg/dL AST 34 (17-59) U/L ALT 35 (6-50) U/L Alkaline Phosphatase 89 (38-126) U/L Total Protein 8.0 (6.3-8.2) g/dL Albumin 4.5 (3.5-5.1) g/dL Influenza A (RT-PCR) Negative (Negative) Influenza B (RT-PCR) Negative (Negative) RSV (RT-PCR) Negative (Negative) SARS-CoV-2 RNA (RT-PCR) Negative (Negative) Imaging Data Radiologist's impression: Impressions Chest X-Ray 09/05/24 10:49 IMPRESSION: 1. Stable appearance of volume loss and architectural distortion in the right hemithorax with right upper lobar endobronchial valves and secondary chronic right upper lobe collapse. 2. Tiny bilateral pleural effusions. Discharge Plan Discharge Clinical Impression: Acute exacerbation of chronic obstructive pulmonary disease Patient Disposition: Home, Self-Care Condition: Improved Instructions: Antibiotic Form, COPD (Chronic Obstructive Pulmonary Disease) (DC) Additional Instructions: RETURN IF SYMPTOMS ARE WORSENING , CALL YOUR FAMILY PHYSICIAN FOR APPOINTMENT, TAKE TYLENOL NEEDED FOR ACHES AND PAIN, CONTINUE HOME MEDICATIONS. Prescriptions: New doxycycline hyclate 100 mg capsule 100 mg PO BID Qty: 20 0RF prednisone 20 mg tablet 40 mg PO DAILY 5 Days Qty: 10 0RF No Action fluticasone furoate-vilanterol [Breo Ellipta] 100-25 mcg/dose blister with device 1 inh inhalation Q24H benzonatate 200 mg capsule 200 mg PO TID PRN (Reason: cough) Qty: 60 2RF promethazine-DM 6.25-15 mg/5 mL syrup 5 ml PO Q6H PRN (Reason: cough) Qty: 118 5RF Rx Instructions: TAKE 5ML'S BY MOUTH EVERY 6 HOURS NEEDED FOR COUGH DIRECTED Abrysvo (PF) 120 mcg/0.5 mL recon soln 0.5 ml IM ONCE Qty: 1 0RF Rx Instructions: as a single dose hydrocodone-acetaminophen 5-325 mg Tablet 1 tablet PO Q6H PRN (Reason: Pain) latanoprost 0.005 % drops 1 drp EACH EYE DAILY aspirin [Children's Aspirin] 81 mg Tablet,Chewable 81 mg PO DAILY@0800 30 Days Qty: 30 0RF omeprazole 20 mg capsule,delayed release(DR/EC) 20 mg PO DAILY lidocaine 5 % Adhesive Patch,Medicated 2 patch TOPICAL DAILY Rx Instructions: leave on most painful area for up to 12 hrs. Apply to back albuterol sulfate 2.5 mg /3 mL (0.083 %) solution for nebulization 2.5 mg inhalation Q6H PRN (Reason: Shortness Of Breath Or Wheezing) Qty: 360 5RF ipratropium bromide 0.02 % solution 2.5 ml inhalation Q6H PRN (Reason: shortness of breath or wheezing) Qty: 300 5RF roflumilast 500 mcg tablet See Rx Instructions .ROUTE .COMPLEX Qty: 30 11RF Dose Instruction: TAKE 1 TABLET BY MOUTH DAILY Rx Instructions: TAKE 1 TABLET BY MOUTH DAILY mupirocin 2 % ointment 1 applic topical BID-TID Qty: 22 3RF Rx Instructions: apply to nares albuterol sulfate 90 mcg/actuation HFA aerosol inhaler 1 - 2 puff inhalation Q4-6H PRN (Reason: shortness of breath or wheezing) Qty: 8.5 3RF azithromycin 500 mg tablet See Rx Instructions .ROUTE .COMPLEX Qty: 13 5RF Dose Instruction: TAKE 1 TABLET BY MOUTH ON MONDAYS, WEDNESDAYS, AND FRIDAYS. Rx Instructions: TAKE 1 TABLET BY MOUTH ON MONDAYS, WEDNESDAYS, AND FRIDAYS. fluticasone propionate 50 mcg/actuation spray,suspension See Rx Instructions .ROUTE .COMPLEX Qty: 16 10RF Dose Instruction: INSTILL ONE (1) SPRAY IN EACH NOSTRIL TWICE DAILY NEEDED Rx Instructions: INSTILL ONE (1) SPRAY IN EACH NOSTRIL TWICE DAILY NEEDED prednisone 5 mg tablet 5 mg PO DAILY Qty: 30 5RF Follow-up/Referrals: Hunter,Gumaro Christensen APRN [Primary Care Provider] -
[2024-09-05 10:25] LABS: Basophils Absolute Auto 0.1 K/mm3 (0.0-0.1); Eosinophils Absolute Auto 0.2 K/mm3 (0-0.3); Eosinophils Percent Auto 2.6 % (0-4.4); Hematocrit 41.8 % (42.0-52.0); Hemoglobin 13.9 g/dL (14.0-18.0); Immature Granulocyte Absolute 0.01 K/mm3 (0.00-0.031); Immature Granulocyte Percent A 0.2 % (0-0.5); Lymphocytes Absolute Auto 0.83 K/mm3 (0.9-3.2); Lymphocytes Percent Auto 13.5 % (18.3-44.2); Mean Corpuscular HGB Conc 33.3 g/dl (32-36); Mean Corpuscular Volume 96.1 fl (80-100); Mean Platelet Volume 10.8 fl (7.4-10.4); Monocytes Absolute Auto 0.5 K/mm3 (0.1-0.6); Monocytes Percent Auto 7.5 % (2.6-8.5); Neutrophils Absolute Auto 4.6 K/mm3 (1.3-6.7); Neutrophils Percent Auto 75.2 % (45.5-73.1); Platelet Count Result 279 k/mm3 (150-375); Red Blood Count 4.35 M/mm3 (4.6-6.20); Red Cell Distribution Width 13.8 % (11.5-14.5); White Blood Count 6.2 K/mm3 (4.5-10.0)
[2024-09-05 10:40] LABS: Alanine Aminotransferase 35 U/L (6-50); Albumin Level 4.5 g/dL (3.5-5.1); Alkaline Phosphatase 89 U/L (38-126); Anion Gap 8 mmol/L (4-12); Aspartate Amino Transferase 34 U/L (17-59); Bilirubin,Total 0.6 mg/dL (0.2-1.3); Blood Urea Nitrogen 19 mg/dL (9-20); Calcium 9.5 mg/dL (8.4-10.2); Carbon Dioxide 28 mmol/L (22-30); Chloride 106 mmol/L (98-107); Estimated CRCL calculation 98 ml/min; Estimated Glomerular Filt Rate > 60; Glucose 114 mg/dL (65-110); Potassium 3.7 mmol/L (3.4-5.0); Sodium 142 mmol/L (137-145)
[2024-09-05] MEDS: methylPREDNISolone SOD SUCC 125 MG VIAL IV PUSH (11:09)
[2024-09-05] MEDS: IPRATROPIUM BR 0.02% INH SOLN 0.5 MG/2.5 ML VIAL 1.5 MG INHALATION (11:12)
[2024-09-05] MEDS: ALBUTEROL SULFATE NEB 2.5 MG/3 ML INH 10 MG INHALATION (11:12)
[2024-09-05 12:22] LABS: Influenza A QL RT-PCR Negative (Negative); Influenza B QL RT-PCR Negative (Negative); RSV RNA, RT-PCR Negative (Negative); SARS-CoV-2 RNA PCR Negative (Negative)
== END 2024-09-05 13:24 | disposition home or self-care (01) ==
PROVIDERS: Emergency Medicine; Emergency Provider Emergency Medicine; PCP Nurse Practitioner Family
DX: J44.1 Chronic obstructive pulmonary disease with (acute) exacerbation (principal); J43.9 Emphysema, unspecified; Z20.822 Contact with and (suspected) exposure to COVID-19; J96.11 Chronic respiratory failure with hypoxia; Z99.81 Dependence on supplemental oxygen; N40.0 Benign prostatic hyperplasia without lower urinary tract symptoms; K21.9 Gastro-esophageal reflux disease without esophagitis; K44.9 Diaphragmatic hernia without obstruction or gangrene; M19.90 Unspecified osteoarthritis, unspecified site; Z86.718 Personal history of other venous thrombosis and embolism; Z87.01 Personal history of pneumonia (recurrent); Z87.891 Personal history of nicotine dependence; Z98.42 Cataract extraction status, left eye; Z98.41 Cataract extraction status, right eye; Z79.82 Long term (current) use of aspirin; Z79.899 Other long term (current) drug therapy; R00.0 Tachycardia, unspecified
CPT/HCPCS: 36415; 71046; 80053; 85025; 87637; 93005; 94640; 96374; 99284; J2919

== ENCOUNTER 2024-09-24 19:13 | Emergency (ER) | payer MEDICARE, MEDICAID, SELFPAY ==
--- NOTE | ~2024-09-24 | XR_ITS ---
EXAMINATION: XR chest 1V portable DATE: 09/24/2024 19:49 INDICATION: Shortness of breath. TECHNIQUE: A single frontal view of the chest was obtained. COMPARISON: Chest 2 views 09/05/2024 FINDINGS: There are lucencies in the lungs, consistent with emphysema. There is chronic collapse of r ight lung upper lobe with endobronchial valves. No pleural effusion or pneumothorax. The heart size i s normal. IMPRESSION: 1. Emphysema. 2. 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 Reviewed, dictated and finalized at location A. [facility]
--- OUTSIDE RECORDS SUMMARY | 2024-09-24 19:15 | XMS_ITS | Data Portability ---
Author Organization [facility] [employer], Main Office Address [address] [place] [address] Care Team Providers Care Critical Power Install Technician Name Role Phone GUILLAUME ERAZO Primary Care Provider [phone] GUILLAUME ERAZO Referring Provider [phone] Assessment No assessment recorded. Plan of Treatment Reminders Order Date Submit Date Provider Last Modified By Organization Details Last Modified Time Details Appointments None recorded. Lab PSA, serum or plasma 2023 024 [facility] (Lab), [address] [place], [address], 4 00:11:54 lipid panel, serum 2023 024 [facility] (Lab), [address] [place], [address], 4 00:11:55 TSH, serum or plasma [email or web address] (Lab), [address] [place], [address], 4 08:05:47 CBC w/ auto diff 2023 024 [facility] (Lab), [address] [place], [address], 4 00:11:55 [email or web address] obin, total, blood 2023 024 [facility] (Lab), [address] [place], [address], 4 00:11:55 CMP, serum or plasma [facility] [address] [place], [address], 4 00:11:54 TSH, serum or plasma [address] (Lab), [address] [place], [address], 4 10:46:58 T4, free, serum [address] (Lab), [address] [place], [address], 4 10:47:09 CBC w/ auto diff [address] (Lab), [address] [place], [address], 4 10:46:49 Referral neurologist referral - Please call patient to schedule an appointment . Thank you. 2023 024 [email or web address] [facility] [address], [place], [address], 4 09:31:09 neurologist referral - Please call patient to schedule an appointment . Thank you. 2023 024 [email or web address] [facility] [address], [place], [address], 4 08:46:03 Procedures None recorded. Surgeries None recorded. Imaging None recorded. Medication Orders None recorded. Patient TargetsNo targets recorded. Patient Instructions Encounter Date Encounter Id Patient Instructions Last Modified By Organization Details Last Modified Time 03/05/2024 [id number] dementia rating scale-2* [email or web address] Not available 03/05/2024 15:07:17 alcohol misuse* [email or web address] Not available 03/05/2024 15:07:25 depression screening* [email or web address] Not available 03/05/2024 15:07:28 multi-dimensiona l health assessment questionnaire* [email or web address] Not available 03/05/2024 15:07:20 Personalized Hea lt Plan and Screening Recommendations Advance Directives - Do you have one? Advance Directives - Do we have your advance directive on file in your health record? Primary Prevention/Interven tion (prevents or decreases the chance of common diseases from occurring) Smoking Risk: Non Smoker Alcohol Misuse Screening: Negative Weight: Appropriate Overwei ght continue your current weight loss efforts try to lose 5% of your body weight try to lose 10% of your body weight Physical activity: Nutrition: Good Average Fall Risk (screened today): Low Vaccines Pneumococcal: Ordered Recommended today Influenza: Chronic Disease Risks Stroke: Low Risk I have no recommendations Heart Attack: Low risk I have no recommendations Clogging of the Arteries: Low risk I have no recommendations Diabetes: Low Risk I have no recommendations Secondary Prevention/Interven tion (detects treatable diseases before they may cause symptoms, disability, or ) Prostate Cancer Screening: Colon Cancer Screening: Colonoscopy Date Screening Last Performed: 2022 Eye Disease Screening: Dementia Risk: Low I have no recommendations Depression Screening: Negative [email or web address] Not available 03/05/2024 14:39:26 Reason for Referral Neurologist Referral for Hea dache headaches Please call patient to schedule an appointment. Thank you. Referring Physician: [facility], Encounter Date: 03/05/2024 Neurologist Referral for Hea dache recurrent headaches Please call patient to schedule an appointment. Thank you. Referring Physician: [facility], Encounter Date: 06/02/2024 Results Created Date Observation Date Name Description Value Unit Range Abnormal Flag Note LastModifiedBy Organization Detail LastModifiedTime 07/19/2007/18/2023 XR, chest No observ ation record ed. [email or web address] [id number] [facility] [address], [place], [address], 07/23/2023 09:44:09 08/26/2008/26/2023 XR, hip, unila teral , 2 or 3 view No observ ation record ed. [email or web address] [facility] [address] [place], [address], 09/19/2023 16:59:52 09/02/20 23 09/02/2023 XR, lumba r spine No observ ation record ed. [email or web address] [facility] [address] [place], [address], 09/19/2023 16:59:52 10/24/19 24 10/24/2023 XR, chest No observ ation record ed. [email or web address] [address], [address], 10/30/2023 09:19:04 10/29/19 24 10/29/2023 XR, chest No observ ation record ed. [email or web address] [address], [address], 10/30/2023 09:20:04 02/11/20 24 02/11/2024 XR, chest , 2 view No observ ation record ed. [place] [address] [address], [place], [address], 02/18/2024 09:41:31 02/19/20 24 02/19/2024 LDCT, chest , for lung cance r scree kevin No observ ation record ed. [email or web address] [address] [address], [place], [address], 03/23/2024 16:47:33 03/24/20 24 03/24/2024 XR, chest , 1 view No observ ation record ed. [address], [address], 04/01/2024 09:41:11 08/25/20 24 08/25/2024 MRI, brain + brain stem, w/o contr ast No observ ation record ed. [email or web address] [place] [address] [address], [place], [address], 08/26/2024 13:59:16 09/06/20 24 09/05/2024 XR, chest , 2 view No observ ation record ed. [email or web address] [facility] [address] [facility] [address], [place], [address], 09/07/2024 09:58:54 Result Notes None recorded. Problems Name Problem SNOMED Code Status Onset Date Resolution Date Notes Provider Name and Address Organization Details Recorded Time Chronic obstructiv e pulmonary disease 78621222 Active Not Available [facility] 3 18:04:39 Acute exacerbati on of chronic obstructiv e pulmonary disease 972344924 Active 2016 Not Available [facility] 3 18:04:39 Benign prostatic hyperplasi a 258679920 Active 2016 Not Available [facility] 3 18:04:39 Severe chronic obstructiv e pulmonary disease 839463394 Active 2018 Not Available [facility] 3 18:04:39 Chronic respirator y failure 93284611 Active 2018 Not Available [facility] 3 18:04:39 Ingrowing toenail 012056172 Active 2021 Not Available [facility] 3 18:04:39 Foot pain 46821810 Active 2021 Not Available [facility] 3 18:04:39 Tobacco dependence syndrome 41099771 Active Not Available [facility] 3 18:04:39 Seasonal allergy 254429841 Active 2022 RAY Leal [address], [address], [place], [address] , [employer] 3 10:55:26 Chronic cough 15797380 Active 2022 RAY Leal [address], [address], [place], [address] , [employer] [facility] 3 10:56:49 Pain of right knee joint 6802320608805 00 Active 2022 RAY Leal [address], [address], [place], [address] , [facility] 3 11:01:39 Gastroesop hageal reflux disease 449368227 Active 2022 RAY Leal [address], [address], [place], [address] , [facility] 3 11:04:34 Lower abdominal pain 24569728 Active 2022 RAY Leal [address], [address], [place], [address] , [place] [facility] [place] [facility] 3 10:57:20 Anxiety 79580914 Active 2022 Jolynn quintana, [place] [facility] 3 09:41:00 Arthritis 0671725 Active 2022 Jolynn Epperson null, [place] [facility] 3 09:41:08 Disorder of eye 019063240 Active 2022 Jolynn Epperson null, [place] [facility] 3 09:41:15 Headache 76582383 Active 2022 Jolynn Epperson null, [place] [facility] 3 09:41:22 Heartburn 42752193 Active 2022 Jolynn Epperson null, [place] [facility] 3 09:41:29 Disorder of lung 91301104 Active 2022 Jolynn Epperson null, [place] [facility] 3 09:41:38 Ingrowing nail of toe of right foot 1926445434571 9102 Active 2022 Mata Lugo DPM [address], [address], [place], [address] , [facility] [place] [facility] 3 10:57:35 Pain in right hip joint 2253656362900 02 Active 2022 GILMAR Velasquez [address], [address], [place], [address] , [employer] 3 16:05:21 Low back pain 349232503 Active 2022 Gumaro NORY Harrison-Katheryn [address], [place] [address], [place], [address] , [employer] 3 14:31:44 Hyperthyro idism 56938409 Active 2023 Gumaro NORY Harrison-Katheryn [address], [address], [place], [address] , [employer] 4 10:06:09 Notes:PULMONARY DISEASE, USE OF NSAIDS Problem Notes None recorded. Procedures Surgical History Date Name Laterality Status Provider Name and Address Organization Details Recorded Time 03/05/20 Medicare Wellness CPT Code, subsequent completed Hortencia Gallagher RN [email or web address] 03/05/2024 09:30:38 06/06/20 Nail Debridement completed Mata Lugo DPM [address], [place] [address], [place], [address], [employer] 06/06/2023 10:57:28 02/27/20 Medicare Wellness CPT Code, Initial completed RAY Leal [address], [place] [address], [place], [address], [employer] 02/26/2023 12:38:15 Unlisted procedure nose completed Not Available [facility] 12/12/2022 18:04:04 Imaging Results Imaging Date Name Status LastModified by Organiz ation Details LastModified Time 07/18/2023 [facility] [address] [facility] [address], [place], [address], 07/23/2023 09:44:09 08/26/2023 XR, hip, unilateral, 2 or 3 view completed [email or web address] [facility] [address], [place], [address], 09/19/2023 16:59:52 09/02/2023 XR, lumbar spine completed [email or web address] [facility] [address], [place], [address], 09/19/2023 16:59:52 10/24/2023 XR, chest completed [email or web address] [address] [place] [address], [address], 10/30/2023 09:19:04 10/29/2023 XR, chest completed [email or web address] [address] [place] [address], [address], 10/30/2023 09:20:04 02/11/2024 XR, chest, 2 view completed [address], [address], 02/18/2024 09:41:31 02/19/2024 LDCT, chest, for lung cancer screening completed [email or web address] [address], [address], 03/23/2024 16:47:33 03/24/2024 XR, chest, 1 view completed [address], [address], 04/01/2024 09:41:11 08/25/2024 MRI, brain + brain stem, w/o contrast completed [email or web address] [address], [address], 08/26/2024 13:59:16 09/05/2024 XR, chest, 2 view completed [email or web address] [address] [place] [address], [address], 09/07/2024 09:58:54 Procedure Notes None recorded. Medical Equipment None Reported. Allergies Allergen ID Allergen Name Allergen Category Reaction Reaction Severity Criticality Documentation Date Start Date Code Code System Note Provider Name and Address Organization Details Recorded Time 27299 oxycodone medicatio n Not available Not available Not available 12/12/2022 7804 RxNorm Not Available [employer] 18:05:39 Medications Name Sig Start Date Stop Date Status Note LastModified by Organization Details LastModified Time cyclobenz aprine 10 mg tablet 07/10 completed Not Available Not Available Not Available latanopro st 0.005 % eye drops INSTILL 1 DROP INTO BOTH EYES AT BEDTIME DIRECTED active Not Available Not Available No t Available buspirone 5 mg tablet TAKE 1 TABLET BY MOUTH EVERY DAY 01/09 completed Not Available Not Available Not Available promethaz ine-DM 6.25 mg-15 mg/5 mL oral syrup TAKE 5ML BY MOUTH EVERY 6 HOURS NEEDED FOR COUGH DIRECTED active Not Available Not Available No t Available prednison e 10 mg tablet TAKE 1/2 TABLET BY MOUTH EVERY DAY active Not Available Not Available No t Available ipratropi um 0.5 mg-albute rol 3 mg (2.5 mg base)/3 mL nebulizat ion soln USE ONE VIAL VIA NEBULIZE R Q 6 H 01/09 completed Not Available Not Available Not Available albuterol sulfate 2.5 mg/3 mL (0.083 %) solution for nebulizat ion INHALE 1 VIAL VIA NEBULIZE R 1 TO 2 TIMES DAILY NEEDED FOR SHORTNES S OF BREATH OR WHEEZING 06/06 completed Not Available Not Available Not Available azithromy denny 250 mg tablet TAKE 2 TABLETS BY MOUTH TODAY, THEN TAKE 1 TABLET DAILY FOR 4 DAYS active Not Available Not Available No t Available ibuprofen 800 mg tablet TK 1 T PO TID 01/09 completed Not Available Not Available Not Available benzonata te 200 mg capsule TAKE 1 CAPSULE BY MOUTH THREE TIMES A DAY NEEDED FOR COUGH active Not Available Not Available No t Available ranitidin e 300 mg tablet TAKE 1 TABLET BY MOUTH TWICE DAILY 04/19 completed Not Available Not Available Not Available hydrocodo ne 5 mg-acetam inophen 325 mg tablet TAKE 1 TABLET BY MOUTH EVERY SIX HOURS FOR THIRTY DAYS active Not Available Not Available No t Available prednison e 20 mg tablet Take 1 tablet every day by oral route as directed for 5 days. active Not Available Not Available No t Available prednison e 5 mg tablet TAKE ONE TABLET DAILY DIRECTED FOR 30 DAYS active Not Available Not Available No t Available ciproflox acin 500 mg tablet 01/09 completed Not Available Not Available Not Available tramadol 50 mg tablet TK 1 T PO Q 8 H PRF BACK PAIN 07/10 completed Not Available Not Available Not Available acyclovir 800 mg tablet 01/09 completed Not Available Not Available Not Available oxycodone -acetamin ophen 5 mg-325 mg tablet 01/09 completed Not Available Not Available Not Available terbinafi ne HCl 250 mg tablet TAKE 1 TABLET BY MOUTH DAILY 01/09 completed Not Available Not Available Not Available alprazola m 0.5 mg tablet TAKE 1 TABLET BY MOUTH 3 TIMES A DAY NEEDED FOR ANXIETY 01/09 completed Not Available Not Available Not Available prednisol one acetate 1 % eye drops,mayur pension 01/09 completed Not Available Not Available Not Available oxycodone -acetamin ophen 10 mg-325 mg tablet TK 1 T PO Q 12 H active Not Available Not Available No t Available tamsulosi n 0.4 mg capsule TK 1 C PO QD 01/09 completed Not Available Not Available Not Available benzonata te 100 mg capsule TK 2 CS PO TID PRN active Not Available Not Available No t Available hydrocodo ne 7.5 mg-acetam inophen 325 mg tablet TK 1 T PO Q 8 H active Not Available Not Available No t Available prednison e 2.5 mg tablet 06/06 completed Not Available Not Available Not Available ranitidin e 150 mg tablet 04/19 completed Not Available Not Available Not Available prednison e 50 mg tablet active Not Available Not Available Not Available nicotine 21 mg/24 hr daily transderm al patch ANDRE 1 PA TO THE SKIN QD 09/03 completed Not Available Not Available Not Available nitroglyc daryl 0.4 mg sublingua l tablet 06/06 completed Not Available Not Available Not Available budesonid e 0.25 mg/2 mL suspensio n for nebulizat ion Inhale 2 mL twice a day by nebuliza tion route as directed for 30 days. 06/16 completed Changed from 0.25 to 0.5mg Not Available Not Available Not Available omeprazol e 20 mg capsule,d elayed release TAKE ONE CAPSULE BY MOUTH EVERY DAY active Not Available Not Available No t Available budesonid e 0.5 mg/2 mL suspensio n for nebulizat ion INHALE CONTENTS OF 1 VIAL TWICE DAILY THROUGH THE NEBULIZE R 01/09 completed Not Available Not Available Not Available aspirin 81 mg chewable tablet Chew 1 tablet every day by oral route. 2022 active Not Available Not Available Not Avai lable Tylenol 325 mg tablet Take 2 tablets twice a day by oral route as needed for 7 days. 01/09 completed Not Available Not Available Not Available diclofena c sodium 75 mg tablet,de layed release TK 1 T PO BID AFTER MEALS 01/09 completed Not Available Not Available Not Available monteluka st 10 mg tablet 01/09 completed Not Available Not Available Not Available morphine ER 15 mg tablet,ex tended release Take 1 tablet every 12 hours by oral route for 30 days. active Not Available Not Available No t Available bisacodyl 5 mg tablet,de layed release TK ALL 4 TS PO A 6PM WITH FOUR GLASSES OF WATER active Not Available Not Available No t Available mupirocin 2 % topical ointment USE 1 APPLICAT ION TOPICALL Y 2- 3 TIMES DAILY active Not Available Not Available No t Available azelastin e 137 mcg (0.1 %) nasal spray 01/09 completed Not Available Not Available Not Available ibuprofen 600 mg tablet 11/27 completed Not Available Not Available Not Available cefuroxim e axetil 500 mg tablet 01/09 completed Not Available Not Available Not Available polyethyl christiana glycol 3350 17 gram/dose oral powder MIX 17 G OF POWDER IN BEVERAGE AND DRINK ONCE DAILY 01/09 completed Not Available Not Available Not Available levofloxa denny 500 mg tablet TAKE 1 TABLET BY MOUTH EVERY DAY X4 DAYS. *NO AZITHROM YCIN WHILE TAKING THIS, RESUME AFTER 4 DAYS 01/09 completed Not Available Not Available Not Available levofloxa denny 750 mg tablet Take 1 tablet every day by oral route as directed for 10 days. 05/26 completed Not Available Not Available Not Available methylpre dnisolone 4 mg tablets in a dose pack TK UTD 01/09 completed Not Available Not Available Not Available fluticaso ne propionat e 50 mcg/actua tion nasal spray,mayur pension INSTILL ONE (1) SPRAY IN EACH NOSTRIL TWICE DAILY NEEDED active Not Available Not Available No t Available ipratropi um bromide 21 mcg (0.03 %) nasal spray INHALE TWO SPRAYS IN EACH NOSTRIL ONCE DAILY 01/09 completed Not Available Not Available Not Available loratadin e 10 mg tablet TAKE 1 TABLET BY MOUTH EVERY MORNING 01/09 completed Not Available Not Available Not Available ipratropi um bromide 0.02 % solution for inhalatio n INHALE CONTENTS OF 1 VIAL VIA NEBULIZE R EVERY 6 HOURS NEEDED FOR SHORTNES S OF BREATH OR WHEEZING 01/09 completed Not Available Not Available Not Available naproxen 500 mg tablet TK 1 T PO BID WITH MEALS 09/03 completed Not Available Not Available Not Available amoxicill in 875 mg-potass ium clavulana te 125 mg tablet TK 1 T PO Q 12 H TAT active Not Available Not Available No t Available Ventolin HFA 90 mcg/actua tion aerosol inhaler INHALE 1-2 PUFFS BY MOUTH EVERY 6 HOURS NEEDED active Not Available Not Available No t Available oxycodone 5 mg tablet 01/09 completed Not Available Not Available Not Available Oyster Shell Calcium-V itamin D3 500 mg-5 mcg (200 unit) tablet TAKE ONE TABLET TWICE DAILY DIRECTED 01/09 completed Not Available Not Available Not Available azithromy denny 500 mg tablet TAKE 1 TABLET BY MOUTH ON MONDAYS, , AND FRIDAYS. active Not Available Not Available No t Available Spiriva with [employer] r 18 mcg and inhalatio n capsules INL THE CONTENTS OF 1 C VIA INHALATI ON DEVICE QD active Not Available Not Available No t Available Flovent HFA 220 mcg/actua tion aerosol inhaler Inhale 2 puffs twice a day by inhalati on route as directed for 30 days. 11/27 completed Not Available Not Available Not Available Atrovent HFA 17 mcg/actua tion aerosol inhaler 07/10 completed Not Available Not Available Not Available Pulmicort 05/28 completed Not Available Not Available Not Available Pulmicort Flexhaler 90 mcg/actua tion breath activated Inhale 1 inhalati on by inhalati on route as directed . 05/28 completed Not Available Not Available Not Available Brovana 15 mcg/2 mL solution for nebulizat ion INHALE THE CONTENTS OF 1 VIAL THROUGH THE NEBULIZE R TWICE DAILY 01/09 completed Not Available Not Available Not Available Symbicort 160 mcg-4.5 mcg/actua tion HFA aerosol inhaler Inhale 2 puffs twice a day by inhalati on route. 07/10 completed Not Available Not Available Not Available Calcium 600 + D(3) 600 mg-5 mcg (200 unit) capsule Take 1 capsule twice a day by oral route as directed for 30 days. 01/09 completed Not Available Not Available Not Available Dulera 200 mcg-5 mcg/actua tion HFA aerosol inhaler INHALE 2 PUFFS PO BID 07/10 completed Not Available Not Available Not Available Pain and Fever 500 mg tablet TAKE 1 TABLET EVERY 8 HOURS NEEDED 01/09 completed Not Available Not Available Not Available roflumila st 500 mcg tablet TAKE 1 TABLET BY MOUTH DAILY active Not Available Not Available No t Available Chantix Starting Month Box 0.5 mg (11)-1 mg (42) tablets in dose pack Take 1 tablet every day by oral route for 30 days. 12/12 completed Not Available Not Available Not Available Prolensa 0.07 % eye drops 01/09 completed Not Available Not Available Not Available fluticaso ne furoate 100 mcg-vilan terol 25 mcg/dose inhalatio n powder active Not Available Not Available Not Available Breo Ellipta 200 mcg-25 mcg/dose powder for inhalatio n Inhale 1 puff every day by inhalati on route. active chronic cough Not Available Not Available Not Available Narcan 4 mg/actuat ion nasal spray 01/09 completed Not Available Not Available Not Available oxygen 3 liters 2019 active Not Available Not Available Not Avai lable Lon[place] Magnair Refill 25 mcg/mL solution for nebulizat ion INHALE 1 ML BY MOUTH EVERY DAY IN THE MORNING AND IN THE EVENING ADMINIST ER AT THE SAME TIME(S) EACH DAY active Not Available Not Available No t Available [place] Magnair Starter 25 mcg/mL solution for nebulizat ion Inhale 1 mL twice a day by nebuliza tion route. 04/19 completed Not Available Not Available Not Available Vitals Date Recorded Body height Body mass index (BMI) Body weight Provider Name and Address Organization Details Last Updated DateTime 06/06/2023 175.26 cm 30.1 kg/m2 92852.84 g Jolynn Epperson [facility] [employer] [facility] 06/06/2023 09:37:58 Date Recorded Heart rate Respiratory rate Oxygen saturation Oxygen saturation in Arterial blood by Pulse oximetry Systolic blood pressure Diastolic blood pressure Provider Name and Address Organization Details Last Updated DateTime 3 81 /min 14 /min 98 % 98 % 96 mm[Hg] 66 mm[Hg] Angélica Antony [facility] [employer] [facility] 3 09:39:20 Date Recorded Body height Body mass index (BMI) Body weight Body temperature Heart rate Oxygen saturation Oxygen saturation in Arterial blood by Pulse oximetry Systolic blood pressure Diastolic blood pressure Provider Name and Address Organization Details Last Updated DateTime 3 175.26 cm 32.5 kg/m2 85446.3 2 g 98.7 [degF] 84 /min 92 % 92 % 133 mm[Hg] 86 mm[Hg] Kinsey Prieto MA [facility] [employer] [facility] 3 08:57:12 Date Recorded Body height Body mass index (BMI) Body weight Heart rate Respiratory rate Oxygen saturation Oxygen saturation in Arterial blood by Pulse oximetry Systolic blood pressure Diastolic blood pressure Provider Name and Address Organization Details Last Updated DateTime 3 175.26 cm 32.5 kg/m2 15783.3 2 g 109 /min 18 /min 95 % 95 % 109 mm[Hg] 63 mm[Hg] Angélica Antony [facility] [employer] [facility] 3 11:44:21 Date Recorded Body height Body mass index (BMI) Body weight Body temperature Oxygen saturation Oxygen saturation in Arterial blood by Pulse oximetry Inhaled oxygen flow rate Heart rate Systolic blood pressure Diastolic blood pressure Provider Name and Address Organization Details Last Updated DateTime 4 175.26 cm 34.6 kg/m2 048446. 61 g 97.6 [degF] 92 % 92 % 3 L/min 102 /min 142 mm[Hg] 88 mm[Hg] Sherita Rosas RN [facility] [employer] [facility] 4 14:27:39 Date Recorded Body height Body mass index (BMI) Body weight Body temperature Oxygen saturation Oxygen saturation in Arterial blood by Pulse oximetry Inhaled oxygen flow rate Heart rate Systolic blood pressure Diastolic blood pressure Provider Name and Address Organization Details Last Updated DateTime 4 175.26 cm 35.1 kg/m2 707501. 98 g 100 [degF] 93 % 93 % 3 L/min 89 /min 130 mm[Hg] 70 mm[Hg] Sherita Rosas RN [place] [facility] [employer] 4 09:55:40 Social History Question Answer Notes LastModified by Organizat ion Details LastModified Time Tobacco Smoking Status Former Smoker Not Available [employer] 12/12/2022 18:04:03 What Is Your Level Of Alcohol Consumption? Occasional [id number] Information not available 12/12/2022 What Is Your Level Of Caffeine Consumption? None [email or web address] Information not available 01/09/2023 In The 14 Days Before Symptom Onset, Have You Had Close Contact With A Laboratory-confir med COVID-19 While That Case Was Ill? No [id number] Information not available 12/12/2022 In The 14 Days Before Symptom Onset, Have You Had Close Contact With A Person Who Is Under Investigation For COVID-19 While That Person Was Ill? No [id number] Information not available 12/12/2022 What Type Of Diet Are You Following? REGULAR Information not available 01/09/2023 What Is Your Occupation? Disability [id number] Information not available 12/12/2022 When Did You Quit Smoking? 1-5yearssincel astcigarette [id number] Information not available 12/12/2022 Do You Use Any Illicit Or Recreational Drugs? No [email or web address] Information not available 01/09/2023 Has Tobacco Cessation Counseling Been Provided? No [id number] Information not available 12/12/2022 Have You Recently Traveled Abroad? No [id number] Information not available 12/12/2022 Do You Have Any Dietary Restrictions? No [email or web address] Information not available 01/09/2023 Do You Or Have You Ever Used Any Other Forms Of Tobacco Or Nicotine? No [id number] Information not available 12/12/2022 Sex: Unknown Functional Status Question Answer Note LastModified by Organization D etails LastModified Time What is your exercise level? Heavy [email or web address] Information not available 01/09/2023 Mental Status None recorded. Family History Relationship Description Onset Age of this Age Resolved Age Notes LastModified by Organization Details LastModified Time Sister Diabetes mellitus [id number] Not available 12/12/2022 18:04:04 Sister Cerebrovascu lar accident [id number] Not available 12/12/2022 18:04:04 Sister Hypertensive disorder [id number] Not available 12/12/2022 18:04:04 Mother Diabetes mellitus [id number] Not available 12/12/2022 18:04:04 Brother Cerebrovascu lar accident [id number] Not available 12/12/2022 18:04:04 Brother Malignant neoplastic disease [id number] Not available 12/12/2022 18:04:04 Father Heart disease [id number] Not available 12/12/2022 18:04:04 Father Malignant neoplastic disease [id number] Not available 12/12/2022 18:04:04 Mother Cerebrovascu lar accident [email or web address] Not available 09:49:05 Mother Hypertensive disorder [email or web address] Not available 2022 09:49:24 Sister Arthritis [email or web address] Not available 06/06/2023 09:49:15 Brother Family history of malignant neoplasm [email or web address] Not available 2022 09:49:42 Father Family history of malignant neoplasm [email or web address] Not available 2022 09:49:42 Medical History Condition Response ARTHRITIS Y HEADACHES/MIGRAINES Y ANXIETY DISORDER Y ALLERGIES/HAYFEVER Y PULMONARY DISEASE Y USE OF NSAIDS Y BACK / NECK PROBLEMS Y LUNG DISEASE/DISORDER Y HEARTBURN / REFLUX Y Immunizations Vaccine Type Date Status Note Provider Nam e and Address Organization Details Recorded Time Influenza, split virus, trivalent, preservative 8 completed Not Available [facility] 12/12/2022 18:05:38 Influenza, split virus, quadrivalent, PF 9 completed Not Available [facility] 12/12/2022 18:05:38 Influenza, split virus, quadrivalent, PF 8 completed Not Available [facility] 12/12/2022 18:05:38 Tdap 3 completed RAY Leal [address] [place] [address], [facility] [address], [place], [address], [facility] 02/26/2023 13:00:04 Past Encounters Encounter ID Performer Location Encounter Start Date Encounter Closed Date Diagnosis/Indication Diagnosis SNOMED-CT Code Diagnosis ICD10 Code [id number] [facility] [place] [address] [facility] [address] [place] [address] 06/14/2022 00:00:00 06/19/2022 11:50:24 [id number] [facility] [place] [address] [facility] [address] [place] [address] 07/09/2022 00:00:00 07/09/2022 13:46:46 [id number] RAY Leal [facility] Primary Care [facility] [address] [place] [address] 01/09/2023 09:54:34 01/09/2023 11:15:00 Chronic obstructive pulmonary disease 92156325 J44.9 Seasonal allergy 8235910 04 J30.2 Chronic cough 37720403 R 05.3 Pain of ri ght knee joint 5193258352 72101 M25.561 Gastroesop hageal reflux disease 700783522 K21.9 [id number] RAY Leal [facility] Primary Care [facility] [address] [place] [address] 02/26/2023 10:25:25 02/26/2023 11:43:04 Adult health examination 400504737 Z00.00 Administra tion of diphtheria, pertussis, and tetanus vaccine 996039505 Z23 Chronic ob structive pulmonary disease 52799713 J44.9 Ingrowing toenail 105743 009 L60.0 Screening for disorder 042098907 Z13.9 [id number] RAY Leal [facility] Primary Care [facility] [address] [facility] [address] [place] [address] 03/19/2023 10:15:08 03/19/2023 12:42:51 Lower abdominal pain 04394798 R10.30 [id number] Mata Lugo DPM [facility] Podiatry [place] [address] [facility] [address] [place] [address] 06/06/2023 09:24:40 06/06/2023 11:23:54 Ingrowing nail of toe of right foot 7123436738 0854127 L60.0 [id number] RAY Leal [facility] Primary Care [facility] [address] [facility] [address] [place] [address] 08/12/2023 08:29:41 08/12/2023 09:38:22 Chronic obstructive pulmonary disease 37676698 J44.9 [id number] Mata Lugo DPM [facility] Podiatry [place] [address] [facility] [place] [address] 09/17/2023 11:36:50 09/30/2023 17:32:46 [id number] GILMAR Velasquez [facility] Primary Care [facility] [address] [facility] [address] [place] [address] 03/05/2024 13:57:58 03/05/2024 15:12:45 Adult health examination 724273668 Z00.00 Screening for disorder 657179398 Z13.9 Diabetes m ellitus screening 332040158 Z13.1 Hyperlipid emia screening 591232818 Z13.220 Thyroid di sorder screening 830713996 Z13.29 Anemia screening 7807774 07 Z13.0 Headache 36690317 R51.9 [id number] GILMAR Velasquez [facility] Primary Care [facility] [address] [facility] [address] [place] [address] 06/02/2024 09:44:35 06/02/2024 10:36:45 Chronic obstructive pulmonary disease 75780666 J44.9 Hyperthyroidism 96873255 E05.90 Headache 39286593 R51.9 Health Concerns Section Related Observation LastModified by Organization Detai ls LastModified Time None Recorded Concern Status LastModified by Organization Details LastModified Time None Recorded Advance Directives Directive None Recorded Payers Encounter Date Sequence Insurance Name Policy Number Policy Walls Covered Member ID Walls Member ID Guarantor Name 06/06/2023 1 MEDICARE-[place] (MEDICARE) Bentley Mesa [id number] Bentley Mesa 06/06/2023 2 [place] OR MEDIC[place] REPLACEMENT PRIMARY) Bentley Bonita [id number] Bentley Le Bonita 08/12/2023 1 [place] Bentley Hamlinnes [id number] Bentley Mesa 08/12/2023 2 [place] OR [place] REPLACEMENT PRIMARY) Bentley Mesa [id number] Bentley Le Bonita 09/17/2023 1 [place] Bentley Le Bonita [id number] Bentley Le Bonita 09/17/2023 2 [place] OR [place] REPLACEMENT PRIMARY) Bentley Mesa [id number] Bentley Mesa 03/05/2024 2 [place] OR MEDICARE REPLACEMENT PRIMARY) Bentley Mesa [id number] Bentley Le Bonita 03/05/2024 1 [facility] (MEDICARE REPLACEMENT/AD VANTAGE - HMO) [id number] Stewart Bonita [id number] Stewart Bonita 06/02/2024 2 [place] OR MEDICARE REPLACEMENT PRIMARY) Bentley Mesa [id number] Bentley Le Bonita 06/02/2024 1 [facility] (MEDICARE REPLACEMENT/AD VANTAGE - HMO) [id number] Stewart Bonita [id number] Stewart Bonita Notes Date Note Type Note Provider Name and Address Organization Details Recorded Time 06/06/2023 text/html . Patient is a 63-year-old male who presents for an ingrown toenail that is noninfected to the right medial corner of the great toe. Patient states he has had pain to the area. Patient states that he did attempt to cut out the nail corner but was unsuccessful. Patient states he has had mild pain to the area but denies any drainage or redness. Patient denies any other pedal complaints. Mata Lugo DPM [address] [facility], [place], [address], [employer] 06/06/2023 14:15:23 08/12/2023 text/html Pt. here for routine follow-up. States his breathing has been doing better. He is not on any oxygen at office visit today. RAY Leal [address], [place], [address], [employer] [facility] 08/12/2023 10:04:11 03/05/2024 text/html pt is here for annual physical GILMAR Velasquez [address] [address], [place], [address], [facility] [employer] [facility] 03/05/2024 15:11:48 06/02/2024 text/html pt is here for f/u GILMAR Mesa [address] [address], [place], [address], [facility] [employer] [facility] 06/02/2024 10:31:58
[2024-09-24 19:18] VITALS: BP 179/119; PULSE 103; RESP 16; TEMP 36.9; O2SAT 100
--- NOTE | 2024-09-24 19:19 | ECG_ITS ---
Test Date: 2024-09-24 19:23:13 Measurements Intervals [place] Rate: 99 P: 2 MT: 112 QRS: 36 QRSD: 83 T: 81 QT: 323 QTc: 415 Interpretive Statements SINUS RHYTHM WITH SHORT MT INTERVAL Compared to ECG 09/05/2024 09:58:28 Sinus tachycardia no longer present Electronically Signed On 09-25-2024 18:33:20 SIGNAL WORKER HELPER by Fercho Manley M.D.
[2024-09-24 19:25] VITALS: O2SAT 100
[2024-09-24 19:51] LABS: Alanine Aminotransferase 37 U/L (6-50); Albumin Level 4.4 g/dL (3.5-5.1); Alkaline Phosphatase 87 U/L (38-126); Anion Gap 5 mmol/L (4-12); Aspartate Amino Transferase 30 U/L (17-59); Bilirubin,Total 0.6 mg/dL (0.2-1.3); Blood Urea Nitrogen 14 mg/dL (9-20); Calcium 9.1 mg/dL (8.4-10.2); Carbon Dioxide 28 mmol/L (22-30); Chloride 108 mmol/L (98-107); Estimated CRCL calculation 110 ml/min; Estimated Glomerular Filt Rate > 60; Glucose 120 mg/dL (65-110); Sodium 141 mmol/L (137-145)
[2024-09-24 19:55] LABS: Basophils Absolute Auto 0.1 K/mm3 (0.0-0.1); Basophils Percent Auto 0.9 % (0.2-1.2); Eosinophils Absolute Auto 0.2 K/mm3 (0-0.3); Eosinophils Percent Auto 3.6 % (0-4.4); Hematocrit 43.6 % (42.0-52.0); Hemoglobin 14.1 g/dL (14.0-18.0); Immature Granulocyte Absolute 0.02 K/mm3 (0.00-0.031); Immature Granulocyte Percent A 0.3 % (0-0.5); Lymphocytes Absolute Auto 1.28 K/mm3 (0.9-3.2); Lymphocytes Percent Auto 20.2 % (18.3-44.2); Mean Corpuscular HGB Conc 32.3 g/dl (32-36); Mean Corpuscular Volume 98.9 fl (80-100); Mean Platelet Volume 11.1 fl (7.4-10.4); Monocytes Absolute Auto 0.5 K/mm3 (0.1-0.6); Neutrophils Absolute Auto 4.2 K/mm3 (1.3-6.7); Platelet Count Result 253 k/mm3 (150-375); Red Blood Count 4.41 M/mm3 (4.6-6.20); Red Cell Distribution Width 14.4 % (11.5-14.5); White Blood Count 6.3 K/mm3 (4.5-10.0)
[2024-09-24 20:20] VITALS: BP 141/92; PULSE 91; RESP 14; O2SAT 98
--- NOTE | 2024-09-24 20:40 | ED_ITS ---
HPI - SOB/Dyspnea General Chief Complaint: Shortness of Breath/Dyspnea Stated Complaint: dyspnea Time Seen by Provider: 09/24/24 19:33 Source: patient and family Limitations: no limitations History of Present Illness HPI Narrative: Patient presents with worsening shortness of breath starting yesterday at approximately 1600 and progressively getting worse. History of COPD wears 3L at baseline. Associated with chest tightness. History of bipap for exacerbations previously (but not recently) as well as history of intubation for bad exacerbations (November 2022 when he had the flu). Also s/p [place]/endobronchial valve placement at [facility]. No recent ilnesses. Uses his albuterol at home with no relief. Also on daily Z pack . No cough, fever, chills, nausea, or vomiting though he has been constipated. Denies chest pain, just tightness. He was spitting up mucous 3 weeks ago but nothing recently. Related Data Home Medications ?Medication ?Instructions ?Recorded ?Confirmed ?Last Taken ?Type hydrocodone 5 mg-acetaminophen 325 1 tablet PO Q6H PRN Pain 05/22/22 08/11/24 10/29/23 08:00 History mg tablet latanoprost 0.005 % eye drops 1 drp EACH EYE DAILY 11/20/22 08/11/24 10/29/23 History lidocaine 5 % topical patch 2 patch topical DAILY 10/29/23 08/11/24 10/29/23 History omeprazole 20 mg capsule,delayed 20 mg PO DAILY 10/29/23 08/11/24 Unknown History release fluticasone furoate 100 1 inh inhalation Q24H 08/06/24 08/11/24 Unknown History mcg-vilanterol 25 mcg/dose inhalation powder (Breo Ellipta) Allergies Allergy/AdvReac Type Severity Reaction Status Date / Time oxycodone AdvReac Itching Verified 08/11/24 09:45 [facility] Past Medical History Medical History (Updated 09/24/24 @ 22:28 by Mindi Jett MD) BPH (benign prostatic hyperplasia) Hiatal hernia Chronic deep vein thrombosis (DVT) Linear echogenic filling defect in the right femoral vein, likely chronic thrombus on venous dopplers 11/2020. Gastroesophageal reflux disease Chronic respiratory failure with hypoxia, on home oxygen therapy Pneumonia COPD with emphysema Chronic steroid therapy, 10 milligrams prednisone daily. Osteoarthritis Surgical History Surgical History S/P respiratory system surgery placement of Hartford/endobronchial valves - [facility] H/O colonoscopy History of lung surgery History of bilateral cataract extraction Family History Family History Father Acute myocardial infarction Congestive heart failure Lung cancer Mother Diabetes mellitus Dementia Sibling Diabetes mellitus Lung cancer Social History Social History Social History: Surrogate decision maker: Sloane Mesa, . Code status: Full code. Smoking packs per day: 1 Smoking cigarettes per day: 20.0 Years smoked: 48 Smoking pack-years: 48.00 Smoking status: Former smoker Tobacco type: cigarettes Second hand tobacco smoke exposure: Yes Additional smoking assessment comments: pt used to smoke cigarettes and crack cocaine for 38 years Quit december 2017 Alcohol intake: current Drinks per week: 2 Alcohol use details: Patient currently drinks 2 beers and a shot on the weekends Substance use: former Substance use type: crack/cocaine Do You Feel Safe in your Home?: Yes Lack of Transportation: No Lack of Food: Never True Current Housing: I Have Housing Concerned About Future Housing: No Difficulty Paying Gas/Electric Bills: No Difficulty Paying for Meds: No Currently Unemployed: No Education: Decline to Answer Difficulty w/ Childcare or Family Care: No Living arrangements: with family Additional living arrangements comments: Patient lives with his in [place]. 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 Gender identity (if verbalized by the patient): Male Sexual Orientation (if Verbalized by the Patient): Straight or Heterosexual Spiritual care concerns: No Exam 2 Narrative: GENERAL: Well-appearing, well-nourished, and in no acute distress. HEAD: Normocephalic, atraumatic. EYES: Non injected, non icteric ENT: Nares clear, no rhinorrhea or epistaxis. NECK: Supple. CHEST: Speaking in 5-6 wordl sentences. No wheezes on auscultation but Poor air movement throughout. HEART: Regular rate and rhythm. . ABDOMEN: Soft, nondistended. EXTREMITIES: Normal range of motion. No lower extremity edema. SKIN: Warm, dry, no rash. NEURO: No focal deficits. Alert and oriented x3. PSYCH: Normal mood and affect. Course Vital Signs Vital signs: Vital Signs Temperature 98.5 F 09/24/24 19:18 Pulse Rate 103 H 09/24/24 19:18 Respiratory Rate 16 09/24/24 19:18 Blood Pressure 179/119 H 09/24/24 19:18 Pulse Oximetry 100 09/24/24 19:18 Oxygen Delivery Nasal Cannula 09/24/24 19:18 Oxygen Flow Rate 3 09/24/24 19:18 Temperature 98.2 F 09/24/24 23:18 Pulse Rate 89 09/24/24 23:18 Respiratory Rate 14 09/24/24 23:18 Blood Pressure 136/84 09/24/24 23:18 Pulse Oximetry 100 09/24/24 23:18 Oxygen Delivery Nasal Cannula 09/24/24 19:25 Oxygen Flow Rate 3 09/24/24 19:25 MDM - SOB/Dyspnea MDM Narrative Medical decision making narrative: Patient presents with SOB. History of complicated COPD requiring BIPAP, intubation, and endobronchial valves. In the emergency department he is afebrile vital signs notable for mild tachycardia as well as hypertension. Poor air movement initially. COPD treatment initiated with DuoNeb, steroid, magnesium and another albuterol treatmet after. On reassessment he is moving air a bit better. He states he is feeling much better. Still not full air movement but resting comfortably, not tachypneic and no labored breathing. His oxygen had accidentally moved up to 5 liters/minute at some time point but this was down titrated to his home 3 liters/minute and he did show that he could maintain his saturation on this. Will give 1 final albuterol nebulized treatment and discharge home as patient states he is feeling markedly improved. Due to participate in pulmonary rehab tomorrow as part of his longstanding schedule of this. ED return precautions given and he verifies understanding. Patient denies needing any refills of his albuterol inhaler as he has 1 in his pocket and states he has 2 additional ones at home that have not been open yet. Will discharge with prescription for steroid course. Differential Diagnosis Differential diagnosis: Likely acute exacerbation of chronic obstructive airways disease, congestive heart failure, community acquired pneumonia, pulmonary embolism and other (acute viral syndrome) Lab Data Attestation: I reviewed the patient's lab results. 09/24/24 19:33 09/24/24 19:33 Labs: Lab Results 09/24/24 09/24/24 Range/Units 19:33 21:16 WBC 6.3 (4.5-10.0) K/mm3 RBC 4.41 L (4.6-6.20) M/mm3 Hgb 14.1 (14.0-18.0) g/dL Hct 43.6 (42.0-52.0) % MCV 98.9 (80-100) fl MCH 32.0 (26-34) pg MCHC 32.3 (32-36) g/dl RDW 14.4 (11.5-14.5) % Plt Count 253 (150-375) k/mm3 MPV 11.1 H (7.4-10.4) fl Immature Gran % (Auto) 0.3 (0-0.5) % Neut % (Auto) 67.0 (45.5-73.1) % Lymph % (Auto) 20.2 (18.3-44.2) % Delta % (Auto) 8.0 (2.6-8.5) % Eos % (Auto) 3.6 (0-4.4) % Baso % (Auto) 0.9 (0.2-1.2) % Lymph # (Auto) 1.28 (0.9-3.2) K/mm3 Delta # (Auto) 0.5 (0.1-0.6) K/mm3 Eos # (Auto) 0.2 (0-0.3) K/mm3 Baso # (Auto) 0.1 (0.0-0.1) K/mm3 Abs Immat Gran (auto) 0.02 (0.00-0.031) K/mm3 Absolute Neuts (auto) 4.2 (1.3-6.7) K/mm3 Absolute Nucleated RBC 0.000 (0.0-0.012) K/mm3 Nucleated RBC % 0.0 (0.0-0.2) % D-Dimer < 0.27 (<0.48) ug/mL Sodium 141 (137-145) mmol/L Potassium 4.0 (3.4-5.0) mmol/L Chloride 108 H (98-107) mmol/L Carbon Dioxide 28 (22-30) mmol/L Anion Gap 5 (4-12) mmol/L BUN 14 D (9-20) mg/dL Creatinine 0.70 (0.7-1.3) mg/dL Estim Creat Clear Calc 110 ml/min Estimated GFR > 60 (59 - ) Glucose 120 H (65-110) mg/dL Calcium 9.1 (8.4-10.2) mg/dL Magnesium 2.0 (1.6-2.3) mg/dL Total Bilirubin 0.6 (0.2-1.3) mg/dL AST 30 (17-59) U/L ALT 37 (6-50) U/L Alkaline Phosphatase 87 (38-126) U/L NT-Pro-B Natriuret Pep 40 (19.9-100) pg/mL Total Protein 8.0 (6.3-8.2) g/dL Albumin 4.4 (3.5-5.1) g/dL Influenza A (RT-PCR) Negative (Negative) Influenza B (RT-PCR) Negative (Negative) RSV (RT-PCR) Negative (Negative) SARS-CoV-2 RNA (RT-PCR) Negative (Negative) ABG Data ABG results: 09/24/24 21:17 Puncture Site Right radial ABG pH 7.355 ABG pCO2 43.3 ABG pO2 73.0 L ABG PO2/FiO2 Ratio 2.28 ABG HCO3 23.6 ABG O2 Saturation 94.1 L ABG O2 Content 18.6 ABG Base Excess -1.9 A-a Gradient 104.5 Oxyhemoglobin 93.8 Total Hemoglobin 14.1 O2 Delivery Device Nasal cannula O2 Liters/Min 3.0 FiO2 32 Attestation: I personally reviewed and interpreted this ABG as follows: Interpretation: Chronic respiratory acidosis with secondary metabolic acidosis Imaging Data Radiologist's impression: IMPRESSION: 1. Emphysema. 2. 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 ECG Data EKG #1: Attestation: I personally reviewed and interpreted this ECG as follows: ECG completion date: 09/24/24 ECG completion time: 20:56 Interpretation: Normal sinus rhythm at a rate of 99 beats per minute. FL interval 112. QRS 83. QT/QTC 3 20p/379. Good R-wave progression across the precordial leads. No T- wave inversions. Normal axis. Discharge Plan Discharge Clinical Impression: Acute exacerbation of chronic obstructive pulmonary disease Patient Disposition: Home, Self-Care Condition: Stable Instructions: Antibiotic Form, COPD (Chronic Obstructive Pulmonary Disease) (DC), Dyspnea Scale and Exercise (ED) Additional Instructions: You are being discharged with a course of prednisone. Take this along with your albuterol inhaler and the rest of your COPD regimen and continue participating in pulmonary rehab. Follow-up with your primary care physician and bench examiner. Return to the emergency department with any new or worsening symptoms. Patient Language: Portuguese Prescriptions: New prednisone 20 mg tablet 40 mg PO DAILY 5 Days Qty: 10 0RF Rx Instructions: take starting 09/25/24, before 9am when possible No Action fluticasone furoate-vilanterol [Breo Ellipta] 100-25 mcg/dose blister with device 1 inh inhalation Q24H benzonatate 200 mg capsule 200 mg PO TID PRN (Reason: cough) Qty: 60 2RF promethazine-DM 6.25-15 mg/5 mL syrup 5 ml PO Q6H PRN (Reason: cough) Qty: 118 5RF Rx Instructions: TAKE 5ML'S BY MOUTH EVERY 6 HOURS NEEDED FOR COUGH DIRECTED Abrysvo (PF) 120 mcg/0.5 mL recon soln 0.5 ml IM ONCE Qty: 1 0RF Rx Instructions: as a single dose hydrocodone-acetaminophen 5-325 mg Tablet 1 tablet PO Q6H PRN (Reason: Pain) latanoprost 0.005 % drops 1 drp EACH EYE DAILY aspirin [Children's Aspirin] 81 mg Tablet,Chewable 81 mg PO DAILY@0800 30 Days Qty: 30 0RF omeprazole 20 mg capsule,delayed release(DR/EC) 20 mg PO DAILY lidocaine 5 % Adhesive Patch,Medicated 2 patch TOPICAL DAILY Rx Instructions: leave on most painful area for up to 12 hrs. Apply to back doxycycline hyclate 100 mg capsule 100 mg PO BID Qty: 20 0RF prednisone 20 mg tablet 40 mg PO DAILY 5 Days Qty: 10 0RF albuterol sulfate 2.5 mg /3 mL (0.083 %) solution for nebulization 2.5 mg inhalation Q6H PRN (Reason: Shortness Of Breath Or Wheezing) Qty: 360 5RF ipratropium bromide 0.02 % solution 2.5 ml inhalation Q6H PRN (Reason: shortness of breath or wheezing) Qty: 300 5RF roflumilast 500 mcg tablet See Rx Instructions .ROUTE .COMPLEX Qty: 30 11RF Dose Instruction: TAKE 1 TABLET BY MOUTH DAILY Rx Instructions: TAKE 1 TABLET BY MOUTH DAILY mupirocin 2 % ointment 1 applic topical BID-TID Qty: 22 3RF Rx Instructions: apply to nares albuterol sulfate 90 mcg/actuation HFA aerosol inhaler 1 - 2 puff inhalation Q4-6H PRN (Reason: shortness of breath or wheezing) Qty: 8.5 3RF azithromycin 500 mg tablet See Rx Instructions .ROUTE .COMPLEX Qty: 13 5RF Dose Instruction: TAKE 1 TABLET BY MOUTH ON MONDAYS, WEDNESDAYS, AND FRIDAYS. Rx Instructions: TAKE 1 TABLET BY MOUTH ON MONDAYS, WEDNESDAYS, AND FRIDAYS. fluticasone propionate 50 mcg/actuation spray,suspension See Rx Instructions .ROUTE .COMPLEX Qty: 16 10RF Dose Instruction: INSTILL ONE (1) SPRAY IN EACH NOSTRIL TWICE DAILY NEEDED Rx Instructions: INSTILL ONE (1) SPRAY IN EACH NOSTRIL TWICE DAILY NEEDED prednisone 5 mg tablet 5 mg PO DAILY Qty: 30 5RF Follow-up/Referrals: UNKNOWN,DOCTOR [Primary Care Provider] - Stand Alone Forms: Work/School Release IP Time of Disposition: 22:32
[2024-09-24 21:10] VITALS: PULSE 111; RESP 22
[2024-09-24] MEDS: MAGNESIUM SULF 2 GM/WATER 50ML 2 GM/50 ML BAG IVPB (21:12)
[2024-09-24] MEDS: methylPREDNISolone SOD SUCC 125 MG VIAL IV PUSH (21:12)
[2024-09-24 21:22] LABS: Alveolar/Arterial O2 Gradient 104.5 mmHg; Base Excess ABG -1.9 mEq/l (+/-2.0); Fractional Inspired Oxygen 32 %; HCO3 ABG 23.6 mEq/l (22.0-26.0); Oxygen Content ABG 18.6 %vol (16.0-22.0); Oxygen Saturation ABG 94.1 % (95.0-100.0); Oxyhemoglobin 93.8 % THb (90.0-100.0); PCO2 ABG 43.3 mmHg (35.0-45.0); PO2 FiO2 Ratio Arterial Blood 2.28 %; Total Hemoglobin 14.1 g/dL (12.0-18.0); pH ABG 7.355 (7.350-7.450)
[2024-09-24 21:23] LABS: Device NASAL CANNULA; Modified Allen's Test Pass; Site Drawn RIGHT RADIAL
[2024-09-24] MEDS: IPRATROPIUM 0.5 MG/ALBUTEROL SULFATE 2.5 MG AMPUL.NEB 3 ML INHALATION (21:26)
[2024-09-24 21:38] LABS: NT Pro B Type Natriuretic Pept 40 pg/mL (19.9-100)
[2024-09-24 22:00] VITALS: PULSE 87; RESP 20
[2024-09-24 22:01] LABS: Influenza A QL RT-PCR Negative (Negative); Influenza B QL RT-PCR Negative (Negative); RSV RNA, RT-PCR Negative (Negative); SARS-CoV-2 RNA PCR Negative (Negative)
[2024-09-24 22:05] LABS: D Dimer < 0.27 ug/mL (<0.48)
[2024-09-24] MEDS: ALBUTEROL SULFATE NEB 2.5 MG/3 ML INH INHALATION (22:05)
[2024-09-24 23:18] VITALS: BP 136/84; PULSE 89; RESP 14; TEMP 36.8; O2SAT 100
== END 2024-09-24 23:21 | disposition home or self-care (01) ==
PROVIDERS: Student in an Organized Health Care Education/Training Program; Emergency Provider Student in an Organized Health Care Education/Training Program
DX: J44.1 Chronic obstructive pulmonary disease with (acute) exacerbation (principal); Z86.718 Personal history of other venous thrombosis and embolism; K21.9 Gastro-esophageal reflux disease without esophagitis; J96.11 Chronic respiratory failure with hypoxia; Z99.81 Dependence on supplemental oxygen; Z87.891 Personal history of nicotine dependence; Z20.822 Contact with and (suspected) exposure to COVID-19
CPT/HCPCS: 36415; 36600; 71045; 80053; 82805; 83735; 83880; 85018; 85025; 85380; 87637; 93005; 94640; 96365; 96366; 96375; 99284; J2919; J3475

== ENCOUNTER 2024-10-02 17:08 | Emergency (ER) | payer MEDICARE, MEDICAID, SELFPAY ==
[2024-10-02] VITALS (8 sets, daily range): BP systolic 134–162; BP diastolic 80–111; PULSE 88–112; RESP 16–22; TEMP 36.3–36.8; O2SAT 97–100
--- NOTE | ~2024-10-02 | XR_ITS ---
EXAMINATION: XR chest 1V portable DATE: 10/02/2024 19:40 INDICATION: Dyspnea. TECHNIQUE: A single frontal view of the chest was obtained. COMPARISON: Chest single view 09/24/2024 FINDINGS: There are lucencies in the lungs, consistent with emphysema. There is chronic collapse of r ight lung upper lobe with endobronchial valves. No pleural effusion or pneumothorax. The heart size i s normal. IMPRESSION: 1. Emphysema. 2. 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 Reviewed, dictated and finalized at location A. [facility]
[2024-10-02] MEDS: IPRATROPIUM 0.5 MG/ALBUTEROL SULFATE 2.5 MG AMPUL.NEB 3 ML 12 ML INHALATION (19:12)
[2024-10-02 20:02] LABS: Influenza A QL RT-PCR Negative (Negative); Influenza B QL RT-PCR Negative (Negative); RSV RNA, RT-PCR Negative (Negative); SARS-CoV-2 RNA PCR Negative (Negative)
--- NOTE | 2024-10-02 20:17 | ED_ITS ---
HPI - General Adult General Chief complaint: Shortness of Breath/Dyspnea Stated complaint: COPD Time Seen by Provider: 10/02/24 18:55 History of Present Illness HPI narrative: This is a 64-year-old male history of COPD on 3 L home oxygen presenting for difficulty breathing. Patient denies fevers chills productive cough chest pain. No increase in sputum production. Patient says that he needs DuoNeb treatments steroids and some magnesium ED and he could go home. No other compla ints. Related Data Home Medications ?Medication ?Instructions ?Recorded ?Confirmed ?Last Taken ?Type hydrocodone 5 mg-acetaminophen 325 1 tablet PO Q6H PRN Pain 05/22/22 08/11/24 10/29/23 08:00 History mg tablet latanoprost 0.005 % eye drops 1 drp EACH EYE DAILY 11/20/22 08/11/24 10/29/23 History lidocaine 5 % topical patch 2 patch topical DAILY 10/29/23 08/11/24 10/29/23 History omeprazole 20 mg capsule,delayed 20 mg PO DAILY 10/29/23 08/11/24 Unknown History release fluticasone furoate 100 1 inh inhalation Q24H 08/06/24 08/11/24 Unknown History mcg-vilanterol 25 mcg/dose inhalation powder (Breo Ellipta) Allergies Allergy/AdvReac Type Severity Reaction Status Date / Time oxycodone AdvReac Itching Verified 10/02/24 17:10 [facility] Past Medical History Medical History BPH (benign prostatic hyperplasia) Hiatal hernia Chronic deep vein thrombosis (DVT) Linear echogenic filling defect in the right femoral vein, likely chronic thrombus on venous dopplers 11/2020. Gastroesophageal reflux disease Chronic respiratory failure with hypoxia, on home oxygen therapy Pneumonia COPD with emphysema Chronic steroid therapy, 10 milligrams prednisone daily. Osteoarthritis Surgical History Surgical History S/P respiratory system surgery placement of [place]/endobronchial valves - [facility] H/O colonoscopy History of lung surgery History of bilateral cataract extraction Family History Family History Father Acute myocardial infarction Congestive heart failure Lung cancer Mother Diabetes mellitus Dementia Sibling Diabetes mellitus Lung cancer Social History Social History Social History: Surrogate decision maker: [place], . Code status: Full code. Smoking packs per day: 1 Smoking cigarettes per day: 20.0 Years smoked: 48 Smoking pack-years: 48.00 Smoking status: Former smoker Tobacco type: cigarettes Second hand tobacco smoke exposure: Yes Additional smoking assessment comments: pt used to smoke cigarettes and crack cocaine for 38 years Quit december 2017 Alcohol intake: current Drinks per week: 2 Alcohol use details: Patient currently drinks 2 beers and a shot on the weekends Substance use: former Substance use type: crack/cocaine Do You Feel Safe in your Home?: Yes Lack of Transportation: No Lack of Food: Never True Current Housing: I Have Housing Concerned About Future Housing: No Difficulty Paying Gas/Electric Bills: No Difficulty Paying for Meds: No Currently Unemployed: No Education: Decline to Answer Difficulty w/ Childcare or Family Care: No Living arrangements: with family Additional living arrangements comments: Patient lives with his in [place]. 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 Gender identity (if verbalized by the patient): Male Sexual Orientation (if Verbalized by the Patient): Straight or Heterosexual Spiritual care concerns: No Exam Narrative: APPEARANCE: No apparent distress. Head: atraumatic. EYES: EOMI, NOSE: Atraumatic NECK: Trachea midline RESPIRATORY: No increased rate of breathing Scattered wheezing, speaking in full sentences CARDIOVASCULAR: RRR, no peripheral edema ABDOMINAL: Non-distended MUSCULOSKELETAl: No obvious deformities NEURO: Alert. Moving 4/4 extremities SKIN:: Warm, dry. Normal color PSYCHIATRIC: Normal affect Course Vital Signs Vital signs: Vital Signs Temperature 97.3 F L 10/02/24 17:12 Pulse Rate 99 10/02/24 17:12 Respiratory Rate 22 H 10/02/24 17:12 Blood Pressure 138/99 H 10/02/24 17:12 Pulse Oximetry 99 10/02/24 17:12 Oxygen Delivery Room Air 10/02/24 17:12 Temperature 98.1 F 10/02/24 18:23 Pulse Rate 102 H 10/02/24 19:14 Respiratory Rate 16 10/02/24 19:14 Blood Pressure 162/103 H 10/02/24 18:23 Pulse Oximetry 100 10/02/24 18:23 Oxygen Delivery Nasal Cannula 10/02/24 18:15 Oxygen Flow Rate 3 10/02/24 18:15 Medical Decision Making MDM Narrative Medical decision making narrative: -Course: COPD patient with 3 L home oxygen presenting with wheezing. DuoNebs, magnesium and steroids with improvement. chest x-ray viral swabs negative. Re- evaluation he says he is feeling better would like to go home. He is requesting a Z-Tip which was provided. Patient discharged with return precautions. -DDX includes but is not limited to: COPD, viral syndrome, pneumonia -Co-morbidities complicating care: COPD on 3 L home oxygen Vital Signs Vital Signs: Vital Signs Temperature 97.3 F L 10/02/24 17:12 Pulse Rate 99 10/02/24 17:12 Respiratory Rate 22 H 10/02/24 17:12 Blood Pressure 138/99 H 10/02/24 17:12 Pulse Oximetry 99 10/02/24 17:12 Oxygen Delivery Room Air 10/02/24 17:12 Temperature 98.1 F 10/02/24 18:23 Pulse Rate 102 H 10/02/24 19:14 Respiratory Rate 16 10/02/24 19:14 Blood Pressure 162/103 H 10/02/24 18:23 Pulse Oximetry 100 10/02/24 18:23 Oxygen Delivery Nasal Cannula 10/02/24 18:15 Oxygen Flow Rate 3 10/02/24 18:15 Lab Data Labs: Lab Results 10/02/24 Range/Units 19:23 Influenza A (RT-PCR) Negative (Negative) Influenza B (RT-PCR) Negative (Negative) RSV (RT-PCR) Negative (Negative) SARS-CoV-2 RNA (RT-PCR) Negative (Negative) Discharge Plan Discharge Clinical Impression: COPD (chronic obstructive pulmonary disease) Patient Disposition: Home, Self-Care Condition: Stable Instructions: Antibiotic Form Additional Instructions: please continue using your inhalers. Please completed course of azithromycin. Return to ED if you develop worsening breathing. Patient Language: Lithuanian Prescriptions: New azithromycin 250 mg tablet See Rx Instructions .ROUTE .COMPLEX Qty: 6 0RF Rx Instructions: For 250 mg dose pack: take 500 mg today (day 1), then 250 mg for 4 days (days 2-5) No Action fluticasone furoate-vilanterol [Breo Ellipta] 100-25 mcg/dose blister with device 1 inh inhalation Q24H benzonatate 200 mg capsule 200 mg PO TID PRN (Reason: cough) Qty: 60 2RF promethazine-DM 6.25-15 mg/5 mL syrup 5 ml PO Q6H PRN (Reason: cough) Qty: 118 5RF Rx Instructions: TAKE 5ML'S BY MOUTH EVERY 6 HOURS NEEDED FOR COUGH DIRECTED Abrysvo (PF) 120 mcg/0.5 mL recon soln 0.5 ml IM ONCE Qty: 1 0RF Rx Instructions: as a single dose hydrocodone-acetaminophen 5-325 mg Tablet 1 tablet PO Q6H PRN (Reason: Pain) latanoprost 0.005 % drops 1 drp EACH EYE DAILY aspirin [Children's Aspirin] 81 mg Tablet,Chewable 81 mg PO DAILY@0800 30 Days Qty: 30 0RF omeprazole 20 mg capsule,delayed release(DR/EC) 20 mg PO DAILY lidocaine 5 % Adhesive Patch,Medicated 2 patch TOPICAL DAILY Rx Instructions: leave on most painful area for up to 12 hrs. Apply to back doxycycline hyclate 100 mg capsule 100 mg PO BID Qty: 20 0RF prednisone 20 mg tablet 40 mg PO DAILY 5 Days Qty: 10 0RF prednisone 20 mg tablet 40 mg PO DAILY 5 Days Qty: 10 0RF Rx Instructions: take starting 09/25/24, before 9am when possible albuterol sulfate 2.5 mg /3 mL (0.083 %) solution for nebulization 2.5 mg inhalation Q6H PRN (Reason: Shortness Of Breath Or Wheezing) Qty: 360 5RF ipratropium bromide 0.02 % solution 2.5 ml inhalation Q6H PRN (Reason: shortness of breath or wheezing) Qty: 300 5RF roflumilast 500 mcg tablet See Rx Instructions .ROUTE .COMPLEX Qty: 30 11RF Dose Instruction: TAKE 1 TABLET BY MOUTH DAILY Rx Instructions: TAKE 1 TABLET BY MOUTH DAILY mupirocin 2 % ointment 1 applic topical BID-TID Qty: 22 3RF Rx Instructions: apply to nares albuterol sulfate 90 mcg/actuation HFA aerosol inhaler 1 - 2 puff inhalation Q4-6H PRN (Reason: shortness of breath or wheezing) Qty: 8.5 3RF azithromycin 500 mg tablet See Rx Instructions .ROUTE .COMPLEX Qty: 13 5RF Dose Instruction: TAKE 1 TABLET BY MOUTH ON MONDAYS, WEDNESDAYS, AND FRIDAYS. Rx Instructions: TAKE 1 TABLET BY MOUTH ON MONDAYS, WEDNESDAYS, AND FRIDAYS. fluticasone propionate 50 mcg/actuation spray,suspension See Rx Instructions .ROUTE .COMPLEX Qty: 16 10RF Dose Instruction: INSTILL ONE (1) SPRAY IN EACH NOSTRIL TWICE DAILY NEEDED Rx Instructions: INSTILL ONE (1) SPRAY IN EACH NOSTRIL TWICE DAILY NEEDED prednisone 5 mg tablet 5 mg PO DAILY Qty: 30 5RF Follow-up/Referrals: UNKNOWN,DOCTOR [Primary Care Provider] -
[2024-10-02] MEDS: dexAMETHasone SOD PHOS INJ 10 MG/ML 1 ML VIAL IV PUSH (20:28)
[2024-10-02] MEDS: SODIUM CHLORIDE 0.9% IV 1,000 ML 999 ML IV CONT (20:29)
[2024-10-02] MEDS: MAGNESIUM SULF 2 GM/WATER 50ML 2 GM/50 ML BAG IVPB (20:33)
[2024-10-02 21:01] LABS: Basophils Percent Auto 0.4 % (0.2-1.2); Eosinophils Absolute Auto 0.3 K/mm3 (0-0.3); Eosinophils Percent Auto 3.8 % (0-4.4); Hematocrit 42.9 % (42.0-52.0); Hemoglobin 14.1 g/dL (14.0-18.0); Immature Granulocyte Absolute 0.04 K/mm3 (0.00-0.031); Immature Granulocyte Percent A 0.4 % (0-0.5); Lymphocytes Absolute Auto 2.13 K/mm3 (0.9-3.2); Lymphocytes Percent Auto 23.5 % (18.3-44.2); Mean Corpuscular HGB Conc 32.9 g/dl (32-36); Mean Corpuscular Hemoglobin 31.8 pg (26-34); Mean Corpuscular Volume 96.8 fl (80-100); Mean Platelet Volume 10.7 fl (7.4-10.4); Monocytes Absolute Auto 0.8 K/mm3 (0.1-0.6); Monocytes Percent Auto 8.6 % (2.6-8.5); Neutrophils Absolute Auto 5.7 K/mm3 (1.3-6.7); Neutrophils Percent Auto 63.3 % (45.5-73.1); Platelet Count Result 282 k/mm3 (150-375); Red Blood Count 4.43 M/mm3 (4.6-6.20); Red Cell Distribution Width 14.3 % (11.5-14.5); White Blood Count 9.1 K/mm3 (4.5-10.0)
[2024-10-02 21:17] LABS: Alanine Aminotransferase 24 U/L (6-50); Albumin Level 4.3 g/dL (3.5-5.1); Alkaline Phosphatase 93 U/L (38-126); Anion Gap 6 mmol/L (4-12); Aspartate Amino Transferase 26 U/L (17-59); Bilirubin,Total 0.6 mg/dL (0.2-1.3); Blood Urea Nitrogen 17 mg/dL (9-20); Calcium 9.4 mg/dL (8.4-10.2); Carbon Dioxide 28 mmol/L (22-30); Chloride 106 mmol/L (98-107); Estimated CRCL calculation 109 ml/min; Estimated Glomerular Filt Rate > 60; Glucose 93 mg/dL (65-110); Potassium 3.5 mmol/L (3.4-5.0); Sodium 140 mmol/L (137-145)
== END 2024-10-02 22:07 | disposition home or self-care (01) ==
PROVIDERS: Emergency Provider Emergency Medicine
DX: J43.9 Emphysema, unspecified (principal); Z20.822 Contact with and (suspected) exposure to COVID-19; J96.11 Chronic respiratory failure with hypoxia; Z99.81 Dependence on supplemental oxygen; N40.0 Benign prostatic hyperplasia without lower urinary tract symptoms; M19.90 Unspecified osteoarthritis, unspecified site; K44.9 Diaphragmatic hernia without obstruction or gangrene; K21.9 Gastro-esophageal reflux disease without esophagitis; Z87.01 Personal history of pneumonia (recurrent); Z87.891 Personal history of nicotine dependence; Z86.718 Personal history of other venous thrombosis and embolism; Z98.42 Cataract extraction status, left eye; Z98.41 Cataract extraction status, right eye; Z79.82 Long term (current) use of aspirin; Z79.1 Long term (current) use of non-steroidal anti-inflammatories (NSAID)
CPT/HCPCS: 36415; 71045; 80053; 83735; 85025; 87637; 94640; 96361; 96374; 96375; 99284; J1100; J3475; J7030

== ENCOUNTER 2024-10-07 11:22 | Emergency (ER) | payer MEDICARE, MEDICAID, SELFPAY ==
--- NOTE | ~2024-10-07 | XR_ITS ---
CHEST RADIOGRAPH, PA AND LATERAL CLINICAL HISTORY: chest pain . COMPARISON: Examination is compared with multiple prior studies, performed most recently on and dating back to 12/02/2022 TECHNIQUE: PA and lateral views of the chest. FINDINGS 3 radiodense structures are redemonstrated projecting over the superior mediastinum, to the right of midline, unchanged in position from 2022. The remainder of the cardiomediastinal silhouette is otherwise unremarkable. Diminished lung markings detected bilaterally, unchanged from prior. Blunting of the right costophrenic sulcus suggesting a small right-sided pleural effusion. IMPRESSION: Small right-sided pleural effusion without focal infiltrate. Given the complexity of this patient's anatomy, if clinical suspicion persists, cross-sectional imagi ng (noncontrast enhanced CT examination of the chest) is recommended for further evaluation. Reviewed, dictated and finalized at location A. [facility] IMPRESSION: Small right-sided pleural effusion without focal infiltrate. Given the complexity of this patient's anatomy, if clinical suspicion persists, cross-sectional imaging (noncontrast enhanced CT examination of the chest) is recommended for further evaluation.
[2024-10-07 11:31] VITALS: BP 154/92; PULSE 95; RESP 16; TEMP 37; O2SAT 100
--- NOTE | 2024-10-07 11:37 | ECG_ITS ---
Test Date: 2024-10-07 11:38:35 Measurements Intervals [place] Rate: 101 P: 74 AK: 139 QRS: 32 QRSD: 84 T: 66 QT: 333 QTc: 432 Interpretive Statements SINUS TACHYCARDIA ABNORMAL RHYTHM ECG Compared to ECG 09/24/2024 19:23:13 Short [place] interval no longer present Electronically Signed On 10-07-2024 13:34:27 [employer] by Fercho Manley M.D.
[2024-10-07 11:48] LABS: Basophils Percent Auto 0.5 % (0.2-1.2); Eosinophils Absolute Auto 0.1 K/mm3 (0-0.3); Eosinophils Percent Auto 0.9 % (0-4.4); Hematocrit 43.8 % (42.0-52.0); Hemoglobin 14.5 g/dL (14.0-18.0); Immature Granulocyte Absolute 0.02 K/mm3 (0.00-0.031); Immature Granulocyte Percent A 0.3 % (0-0.5); Lymphocytes Absolute Auto 0.87 K/mm3 (0.9-3.2); Lymphocytes Percent Auto 11.5 % (18.3-44.2); Mean Corpuscular HGB Conc 33.1 g/dl (32-36); Mean Corpuscular Hemoglobin 31.5 pg (26-34); Mean Platelet Volume 10.3 fl (7.4-10.4); Monocytes Absolute Auto 0.6 K/mm3 (0.1-0.6); Monocytes Percent Auto 7.4 % (2.6-8.5); Neutrophils Percent Auto 79.4 % (45.5-73.1); Platelet Count Result 291 k/mm3 (150-375); Red Blood Count 4.61 M/mm3 (4.6-6.20); White Blood Count 7.6 K/mm3 (4.5-10.0)
[2024-10-07 11:58] VITALS: PULSE 88; RESP 14
[2024-10-07] MEDS: ALBUTEROL SULFATE NEB 2.5 MG/3 ML INH INHALATION ×2 (11:58→16:12)
[2024-10-07 12:04] LABS: Alanine Aminotransferase 26 U/L (6-50); Albumin Level 4.4 g/dL (3.5-5.1); Alkaline Phosphatase 88 U/L (38-126); Anion Gap 4 mmol/L (4-12); Aspartate Amino Transferase 26 U/L (17-59); Bilirubin,Total 0.9 mg/dL (0.2-1.3); Blood Urea Nitrogen 15 mg/dL (9-20); Calcium 9.6 mg/dL (8.4-10.2); Carbon Dioxide 27 mmol/L (22-30); Chloride 106 mmol/L (98-107); Estimated CRCL calculation 107 ml/min; Estimated Glomerular Filt Rate > 60; Glucose 103 mg/dL (65-110); Lipase 34 U/L (23-300); Potassium 4.1 mmol/L (3.4-5.0); Sodium 137 mmol/L (137-145)
[2024-10-07 12:05] VITALS: PULSE 94; RESP 14
[2024-10-07 12:12] LABS: Partial Thromboplastin Time 27.1 Seconds (22.3-36.8); Prothrombin Time 13.5 Seconds (11.1-14.7)
[2024-10-07 12:16] LABS: Troponin I < 0.012 ng/mL (0.000-0.034)
[2024-10-07] MEDS: HYDROmorphone HCL INJ (*CRX) 1 MG/ML SYR 0.5 MG IV PUSH (12:26)
[2024-10-07 12:40] LABS: Influenza A QL RT-PCR Negative (Negative); Influenza B QL RT-PCR Negative (Negative); RSV RNA, RT-PCR Negative (Negative); SARS-CoV-2 RNA PCR Negative (Negative)
--- NOTE | 2024-10-07 13:00 | ED.GENADULT ---
HPI - General Adult General Chief complaint: Chest Pain Stated complaint: dyspnea Time Seen by Provider: 10/07/24 11:35 History of Present Illness HPI narrative: 64-year-old male presenting to the emergency department for evaluation for body aches fatigue shortness of breath and chest pain. Patient reports he has had worsening shortness breath over the last few days. Patient states last night he was having lots leg pain back pain and chest pain. Patient reports that his breathing issue to also triggered a panic attack. Related Data Home Medications ?Medication ?Instructions ?Recorded ?Confirmed ?Last Taken ?Type hydrocodone 5 mg-acetaminophen 325 1 tablet PO Q6H PRN Pain 05/22/22 08/11/24 10/29/23 08:00 History mg tablet latanoprost 0.005 % eye drops 1 drp EACH EYE DAILY 11/20/22 08/11/24 10/29/23 History lidocaine 5 % topical patch 2 patch topical DAILY 10/29/23 08/11/24 10/29/23 History omeprazole 20 mg capsule,delayed 20 mg PO DAILY 10/29/23 08/11/24 Unknown History release fluticasone furoate 100 1 inh inhalation Q24H 08/06/24 08/11/24 Unknown History mcg-vilanterol 25 mcg/dose inhalation powder (Breo Ellipta) Allergies Allergy/AdvReac Type Severity Reaction Status Date / Time oxycodone AdvReac Itching Verified 10/07/24 12:25 Review of Systems Review of Systems: All systems reviewed & are unremarkable except as noted in HPI and below PMFSH Past Medical History Medical History BPH (benign prostatic hyperplasia) Hiatal hernia Chronic deep vein thrombosis (DVT) Linear echogenic filling defect in the right femoral vein, likely chronic thrombus on venous dopplers 11/2020. Gastroesophageal reflux disease Chronic respiratory failure with hypoxia, on home oxygen therapy Pneumonia COPD with emphysema Chronic steroid therapy, 10 milligrams prednisone daily. Osteoarthritis Surgical History Surgical History S/P respiratory system surgery placement of [place]/endobronchial valves - [facility] colonoscopy History of lung surgery History of bilateral cataract extraction Family History Family History Father Acute myocardial infarction Congestive heart failure Lung cancer Mother Diabetes mellitus Dementia Sibling Diabetes mellitus Lung cancer Social History Social History Social History: Surrogate decision maker: [place], . Code status: Full code. Smoking packs per day: 1 Smoking cigarettes per day: 20.0 Years smoked: 48 Smoking pack-years: 48.00 Smoking status: Former smoker Tobacco type: cigarettes Second hand tobacco smoke exposure: Yes Additional smoking assessment comments: pt used to smoke cigarettes and crack cocaine for 38 years Quit december 2017 Alcohol intake: current Drinks per week: 2 Alcohol use details: Patient currently drinks 2 beers and a shot on the weekends Substance use: former Substance use type: crack/cocaine Do You Feel Safe in your Home?: Yes Lack of Transportation: No Lack of Food: Never True Current Housing: I Have Housing Concerned About Future Housing: No Difficulty Paying Gas/Electric Bills: No Difficulty Paying for Meds: No Currently Unemployed: No Education: Decline to Answer Difficulty w/ Childcare or Family Care: No Living arrangements: with family Additional living arrangements comments: Patient lives with his in [place]. 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 Gender identity (if verbalized by the patient): Male Sexual Orientation (if Verbalized by the Patient): Straight or Heterosexual Spiritual care concerns: No Exam Narrative: APPEARANCE: Well appearing, no pain, no distress, well-nourished. HEAD: normocephalic, atraumatic. EYES: PERRLA/EOMI, conjunctivae clear. NOSE: Normal no drainage EARS:TMS clear with good light reflex. THROAT: Pharynx clear, no exudate. NECK: Supple. No adenopathy, no masses. RESPIRATORY: Airway patent, respirations nonlabored. Clear to auscultation bilaterally, no rales, rhonchi, wheezing. CARDIOVASCULAR: Regular rate and rhythm without murmurs rubs or gallops. ABDOMINAL: Soft, nontender, nondistended, normal bowel sounds MUSCULOSKELETAL: Moves all extremities. Strength/ROM intact, No edema, No calf tenderness. NEURO: Alert. Cranial nerves II through XII intact. SKIN: Warm, dry. Normal Color Course Vital Signs Vital signs: Vital Signs Temperature 98.6 F 10/07/24 11:31 Pulse Rate 95 10/07/24 11:31 Respiratory Rate 16 10/07/24 11:31 Blood Pressure 154/92 H 10/07/24 11:31 Pulse Oximetry 100 10/07/24 11:31 Oxygen Delivery Nasal Cannula 10/07/24 11:31 Oxygen Flow Rate 3 10/07/24 11:31 Temperature 98.6 F 10/07/24 11:31 Pulse Rate 102 H 10/07/24 16:19 Respiratory Rate 14 10/07/24 16:19 Blood Pressure 145/77 H 10/07/24 14:08 Pulse Oximetry 99 10/07/24 14:08 Oxygen Delivery Nasal Cannula 10/07/24 11:31 Oxygen Flow Rate 3 10/07/24 11:31 Medical Decision Making MDM Narrative Medical decision making narrative: 64 old male presents to the emergency department for multiple complaints including chest pain body aches and shortness of breath. Patient reports the breathing treatment helped his shortness of breath. Patient reports that the pain medication did help with the body aches. Patient is still stating that he does have some underlying anxiety and patient was requesting medication to treat his anxiety. Patient is afebrile with no leukocytosis and a stable hemoglobin of 14.5. Patient has an INR of 1.0. No acute abnormalities on the patient's CMP patient had negative serial troponins. Lipase was not elevated. Patient had negative influenza RSV and COVID. Chest x-ray showed no acute pneumonia. Patient did feel improved with treatment with both the breathing treatment and the pain medication. Patient does feel that a component of his shortness of breath is anxiety, patient did request anxiety medication for home. Patient was strongly encouraged close follow-up with primary care physician. Differential Diagnosis Differential Diagnosis: Pneumonia, COPD, influenza, RSV, COVID, ACS Vital Signs Vital Signs: Vital Signs Temperature 98.6 F 10/07/24 11:31 Pulse Rate 95 10/07/24 11:31 Respiratory Rate 16 10/07/24 11:31 Blood Pressure 154/92 H 10/07/24 11:31 Pulse Oximetry 100 10/07/24 11:31 Oxygen Delivery Nasal Cannula 10/07/24 11:31 Oxygen Flow Rate 3 10/07/24 11:31 Temperature 98.6 F 10/07/24 11:31 Pulse Rate 102 H 10/07/24 16:19 Respiratory Rate 14 10/07/24 16:19 Blood Pressure 145/77 H 10/07/24 14:08 Pulse Oximetry 99 10/07/24 14:08 Oxygen Delivery Nasal Cannula 10/07/24 11:31 Oxygen Flow Rate 3 10/07/24 11:31 Lab Data Lab results reviewed: Yes I reviewed the patient's lab results. 10/07/24 11:42 10/07/24 11:42 Labs: Lab Results 10/07/24 10/07/24 10/07/24 Range/Units 11:42 11:54 14:41 WBC 7.6 (4.5-10.0) K/mm3 RBC 4.61 (4.6-6.20) M/mm3 Hgb 14.5 (14.0-18.0) g/dL Hct 43.8 (42.0-52.0) % MCV 95.0 (80-100) fl MCH 31.5 (26-34) pg MCHC 33.1 (32-36) g/dl RDW 14.0 (11.5-14.5) % Plt Count 291 (150-375) k/mm3 MPV 10.3 (7.4-10.4) fl Immature Gran % (Auto) 0.3 (0-0.5) % Neut % (Auto) 79.4 H (45.5-73.1) % Lymph % (Auto) 11.5 L (18.3-44.2) % Morrison % (Auto) 7.4 (2.6-8.5) % Eos % (Auto) 0.9 (0-4.4) % Baso % (Auto) 0.5 (0.2-1.2) % Lymph # (Auto) 0.87 L (0.9-3.2) K/mm3 Morrison # (Auto) 0.6 (0.1-0.6) K/mm3 Eos # (Auto) 0.1 (0-0.3) K/mm3 Baso # (Auto) 0.0 (0.0-0.1) K/mm3 Abs Immat Gran (auto) 0.02 (0.00-0.031) K/mm3 Absolute Neuts (auto) 6.0 (1.3-6.7) K/mm3 Absolute Nucleated RBC 0.000 (0.0-0.012) K/mm3 Nucleated RBC % 0.0 (0.0-0.2) % PT 13.5 (11.1-14.7) Seconds INR 1.0 APTT 27.1 (22.3-36.8) Seconds Sodium 137 (137-145) mmol/L Potassium 4.1 (3.4-5.0) mmol/L Chloride 106 (98-107) mmol/L Carbon Dioxide 27 (22-30) mmol/L Anion Gap 4 (4-12) mmol/L BUN 15 (9-20) mg/dL Creatinine 0.70 (0.7-1.3) mg/dL Estim Creat Clear Calc 107 ml/min Estimated GFR > 60 (59 - ) Glucose 103 (65-110) mg/dL Calcium 9.6 (8.4-10.2) mg/dL Total Bilirubin 0.9 (0.2-1.3) mg/dL AST 26 (17-59) U/L ALT 26 (6-50) U/L Alkaline Phosphatase 88 (38-126) U/L Troponin I < 0.012 < 0.012 (0.000-0.034) ng/mL Total Protein 8.0 (6.3-8.2) g/dL Albumin 4.4 (3.5-5.1) g/dL Lipase 34 (23-300) U/L Influenza A (RT-PCR) Negative (Negative) Influenza B (RT-PCR) Negative (Negative) RSV (RT-PCR) Negative (Negative) SARS-CoV-2 RNA (RT-PCR) Negative (Negative) Imaging Data Radiologist's impression: Impressions Chest X-Ray 10/07/24 12:20 IMPRESSION: Small right-sided pleural effusion without focal infiltrate. Given the complexity of this patient's anatomy, if clinical suspicion persists, cross-sectional imaging (noncontrast enhanced CT examination of the chest) is recommended for further evaluation. ECG Data EKG #1: EKG Interpretation: normal rate, sinus rhythm, non-specific ST changes, normal QRS and no acute changes Discharge Plan Discharge Clinical Impression: Dyspnea, Anxiety, Chest pain Patient Disposition: Home, Self-Care Condition: Stable Instructions: Antibiotic Form Additional Instructions: Ativan as needed for anxiety control. Continue have close follow-up with your primary care physician. If you have any worsening symptoms then please call or return to the emergency department. Patient Language: South African Prescriptions: New lorazepam [Ativan] 0.5 mg tablet 0.5 mg PO BID PRN (Reason: anxiety) Qty: 14 0RF No Action fluticasone furoate-vilanterol [Breo Ellipta] 100-25 mcg/dose blister with device 1 inh inhalation Q24H benzonatate 200 mg capsule 200 mg PO TID PRN (Reason: cough) Qty: 60 2RF promethazine-DM 6.25-15 mg/5 mL syrup 5 ml PO Q6H PRN (Reason: cough) Qty: 118 5RF Rx Instructions: TAKE 5ML'S BY MOUTH EVERY 6 HOURS NEEDED FOR COUGH DIRECTED Abrysvo (PF) 120 mcg/0.5 mL recon soln 0.5 ml IM ONCE Qty: 1 0RF Rx Instructions: as a single dose hydrocodone-acetaminophen 5-325 mg Tablet 1 tablet PO Q6H PRN (Reason: Pain) latanoprost 0.005 % drops 1 drp EACH EYE DAILY aspirin [Children's Aspirin] 81 mg Tablet,Chewable 81 mg PO DAILY@0800 30 Days Qty: 30 0RF omeprazole 20 mg capsule,delayed release(DR/EC) 20 mg PO DAILY lidocaine 5 % Adhesive Patch,Medicated 2 patch TOPICAL DAILY Rx Instructions: leave on most painful area for up to 12 hrs. Apply to back doxycycline hyclate 100 mg capsule 100 mg PO BID Qty: 20 0RF prednisone 20 mg tablet 40 mg PO DAILY 5 Days Qty: 10 0RF prednisone 20 mg tablet 40 mg PO DAILY 5 Days Qty: 10 0RF Rx Instructions: take starting 09/25/24, before 9am when possible azithromycin 250 mg tablet See Rx Instructions .ROUTE .COMPLEX Qty: 6 0RF Rx Instructions: For 250 mg dose pack: take 500 mg today (day 1), then 250 mg for 4 days (days 2-5) albuterol sulfate 2.5 mg /3 mL (0.083 %) solution for nebulization 2.5 mg inhalation Q6H PRN (Reason: Shortness Of Breath Or Wheezing) Qty: 360 5RF ipratropium bromide 0.02 % solution 2.5 ml inhalation Q6H PRN (Reason: shortness of breath or wheezing) Qty: 300 5RF roflumilast 500 mcg tablet See Rx Instructions .ROUTE .COMPLEX Qty: 30 11RF Dose Instruction: TAKE 1 TABLET BY MOUTH DAILY Rx Instructions: TAKE 1 TABLET BY MOUTH DAILY mupirocin 2 % ointment 1 applic topical BID-TID Qty: 22 3RF Rx Instructions: apply to nares albuterol sulfate 90 mcg/actuation HFA aerosol inhaler 1 - 2 puff inhalation Q4-6H PRN (Reason: shortness of breath or wheezing) Qty: 8.5 3RF azithromycin 500 mg tablet See Rx Instructions .ROUTE .COMPLEX Qty: 13 5RF Dose Instruction: TAKE 1 TABLET BY MOUTH ON MONDAYS, WEDNESDAYS, AND FRIDAYS. Rx Instructions: TAKE 1 TABLET BY MOUTH ON MONDAYS, WEDNESDAYS, AND FRIDAYS. fluticasone propionate 50 mcg/actuation spray,suspension See Rx Instructions .ROUTE .COMPLEX Qty: 16 10RF Dose Instruction: INSTILL ONE (1) SPRAY IN EACH NOSTRIL TWICE DAILY NEEDED Rx Instructions: INSTILL ONE (1) SPRAY IN EACH NOSTRIL TWICE DAILY NEEDED prednisone 5 mg tablet 5 mg PO DAILY Qty: 30 5RF Follow-up/Referrals: UNKNOWN,DOCTOR [Primary Care Provider] -
[2024-10-07] MEDS: DOCUSATE SODIUM 100 MG CAPSULE PO (14:07)
[2024-10-07 14:08] VITALS: BP 145/77; PULSE 100; RESP 15; O2SAT 99
--- NOTE | 2024-10-07 14:32 | ECG_ITS ---
Test Date: 2024-10-07 14:36:11 Measurements Intervals [place] Rate: 81 P: 65 HI: 144 QRS: 23 QRSD: 85 T: 75 QT: 352 QTc: 411 Interpretive Statements SINUS RHYTHM Compared to ECG 10/07/2024 11:38:35 Sinus tachycardia no longer present Electronically Signed On 10-07-2024 14:46:51 [employer] by Fercho Manley M.D.
[2024-10-07 15:07] LABS: Troponin I < 0.012 ng/mL (0.000-0.034)
[2024-10-07 16:12] VITALS: PULSE 105; RESP 14
[2024-10-07 16:19] VITALS: PULSE 102; RESP 14
[2024-10-07] MEDS: LORazepam (*CRX) 1 MG TABLET PO (16:22)
--- OUTSIDE RECORDS SUMMARY | 2024-10-14 05:59 | XMS_ITS | Data Portability ---
Author Organization [facility] [employer], Main Office Address [address] [place] [address] Care Team Providers Care Magnetic Healer Name Role Phone GUILLAUME ERAZO Primary Care Provider GUILLAUME ERAZO Referring Provider [phone] Assessment No assessment recorded. Plan of Treatment Reminders Order Date Submit Date Provider Last Modified By Organization Details Last Modified Time Details Appointments None recorded. Lab PSA, serum or plasma 2023 024 [facility] (Lab), [address] [place], [address], 4 00:11:54 lipid panel, serum 2023 024 [facility] (Lab), [address] [place], [address], 4 00:11:55 TSH, serum or plasma [email or web address] (Lab), [address] [place], [address], 4 08:05:47 CBC w/ auto diff 2023 024 [facility] (Lab), [address] [place], [address], 4 00:11:55 [email or web address] obin, total, blood 2023 024 [facility] (Lab), [address] [place], [address], 4 00:11:55 CMP, serum or plasma [facility] [address] [place], [address], 4 00:11:54 TSH, serum or plasma [address] (Lab), [address] [place], [address], 4 10:46:58 T4, free, serum [address] (Lab), [address] [place], [address], 4 10:47:09 CBC w/ auto diff [address] (Lab), [address] [place], [address], 4 10:46:49 Referral neurologist referral - Please call patient to schedule an appointment . Thank you. 2023 024 [email or web address] [facility] [address], [place], [address], 4 09:31:09 neurologist referral - Please call patient to schedule an appointment . Thank you. 2023 024 [email or web address] [facility] [address], [place], [address], 4 08:46:03 Procedures None recorded. Surgeries None recorded. Imaging None recorded. Medication Orders None recorded. Patient TargetsNo targets recorded. Patient Instructions Encounter Date Encounter Id Patient Instructions Last Modified By Organization Details Last Modified Time 03/05/2024 [id number] dementia rating scale-2* Not available 03/05/2024 15:07:17 alcohol misuse* [email or web address] Not available 03/05/2024 15:07:25 depression screening* [email or web address] Not available 03/05/2024 15:07:28 multi-dimensiona l health assessment questionnaire* [email or web address] Not available 03/05/2024 15:07:20 Personalized Hea lt [...] XR, chest No observ ation record ed. [email or web address] [address] [facility] [address], [place], [address], 07/23/2023 09:44:09 08/26/2008/26/2023 XR, hip, unila teral , 2 or 3 view No observ ation record ed. [email or web address] [facility] [address] [place], [address], 09/19/2023 16:59:52 09/02/20 23 09/02/2023 XR, lumba r spine No observ ation record ed. [email or web address] [facility] [address] [place], [address], 09/19/2023 16:59:52 10/24/19 24 10/24/2023 XR, chest No observ ation record ed. [email or web address] [address], [address], 10/30/2023 09:19:04 10/29/19 24 10/29/2023 XR, chest No observ ation record ed. [email or web address] [address], [address], 10/30/2023 09:20:04 02/11/20 24 02/11/2024 XR, chest , 2 view No observ ation record ed. [address] [address], [place], [address], 02/18/2024 09:41:31 02/19/20 24 02/19/2024 LDCT, chest , for lung cance r scree kevin No observ ation record ed. [email or web address] [address] [address], [place], [address], 03/23/2024 16:47:33 03/24/20 24 03/24/2024 XR, chest , 1 view No observ ation record ed. [address], [address], 04/01/2024 09:41:11 08/25/20 24 08/25/2024 MRI, brain + brain stem, w/o contr ast No observ ation record ed. [email or web address] [address], [place], [address], 08/26/2024 13:59:16 09/06/20 24 09/05/2024 XR, chest , 2 view No observ ation record ed. [email or web address] [facility] [address] [facility] [address], [place], [address], 09/07/2024 09:58:54 Result Notes None recorded. Problems Name Problem SNOMED Code Status Onset Date Resolution Date Notes Provider Name and Address Organization Details Recorded Time Chronic obstructiv e pulmonary disease 36581827 Active Not Available [facility] 3 18:04:39 Acute exacerbati on of chronic obstructiv e pulmonary disease 020522629 Active 2016 Not Available [facility] 3 18:04:39 Benign prostatic hyperplasi a 053214060 Active 2016 Not Available [facility] 3 18:04:39 Severe chronic obstructiv e pulmonary disease 239725642 Active 2018 Not Available [facility] 3 18:04:39 Chronic respirator y failure 85030501 Active 2018 Not Available [facility] 3 18:04:39 Ingrowing toenail 304079608 Active 2021 Not Available [facility] 3 18:04:39 Foot pain 96344013 Active 2021 Not Available [facility] 3 18:04:39 Tobacco dependence syndrome 39619039 Active Not Available [facility] 3 18:04:39 Seasonal allergy 786359138 Active 2022 RAY Leal [address], [place], [address] , [employer] 3 10:55:26 Chronic cough 07726595 Active 2022 RAY Leal [address], [place], [address] , [employer] [facility] 3 10:56:49 Pain of right knee joint 6987434371404 00 Active 2022 RAY Leal [address], [place], [address] , [facility] [place] [facility] 3 11:01:39 Gastroesop hageal reflux disease 537759564 Active 2022 RAY Leal [address], [place], [address] , [facility] [place] [facility] 3 11:04:34 Lower abdominal pain 81326420 Active 2022 RAY Leal [address], [place], [address] , [place] [facility] [place] [facility] 3 10:57:20 Anxiety 51836293 Active 2022 Jolynn quintana, [place] [facility] 3 09:41:00 Arthritis 7419614 Active 2022 Jolynn Epperson null, [place] [facility] [place] [facility] 3 09:41:08 Disorder of eye 573820935 Active 2022 Jolynn Epperson null, [place] [facility] [place] [facility] 3 09:41:15 Headache 14628948 Active 2022 Jolynn Epperson null, [place] [facility] [place] [facility] 3 09:41:22 Heartburn 81707940 Active 2022 Jolynn Epperson null, [place] [facility] 3 09:41:29 Disorder of lung 88009362 Active 2022 Jolynn Epperson null, [place] [facility] [place] [facility] 3 09:41:38 Ingrowing nail of toe of right foot 5841116643517 9102 Active 2022 Mata Lugo DPM [address], [place], [address] , [facility] [place] [facility] 3 10:57:35 Pain in right hip joint 4681006750779 02 Active 2022 GILMAR Velasquez [address], [place], [address] , [employer] 3 16:05:21 Low back pain 609956931 Active 2022 Gumaro NORY Harrison-Katheryn [address], [place] [address], [place], [address] , [employer] 3 14:31:44 Hyperthyro idism 17708377 Active 2023 Gumaro NORY Harrison-Katheryn [address], [place], [address] , [employer] 4 10:06:09 Notes:PULMONARY DISEASE, USE OF NSAIDS Problem Notes None recorded. Procedures Surgical History Date Name Laterality Status Provider Name and Address Organization Details Recorded Time 03/05/20 Medicare Wellness CPT Code, subsequent completed Hortencia Gallagher RN [employer] 03/05/2024 09:30:38 06/06/20 Nail Debridement completed Mata Lugo DPM [address], [place] [address], [place], [address], [employer] 06/06/2023 10:57:28 02/27/20 Medicare Wellness CPT Code, Initial completed RAY Leal [address], [place] [address], [place], [address], [employer] 02/26/2023 12:38:15 Unlisted procedure nose completed Not Available [facility] 12/12/2022 18:04:04 Imaging Results Imaging Date Name Status LastModified by Organiz ation Details LastModified Time 07/18/2023 [facility] [address] [facility] [address], [place], [address], 07/23/2023 09:44:09 08/26/2023 XR, hip, unilateral, 2 or 3 view completed [email or web address] [facility] [address], [place], [address], 09/19/2023 16:59:52 09/02/2023 XR, lumbar spine completed [email or web address] [facility] [address], [place], [address], 09/19/2023 16:59:52 10/24/2023 XR, chest completed [email or web address] [address] [place] [address], [address], 10/30/2023 09:19:04 10/29/2023 XR, chest completed [address] [place] [address], [address], 10/30/2023 09:20:04 02/11/2024 XR, chest, 2 view completed [address], [address], 02/18/2024 09:41:31 02/19/2024 LDCT, chest, for lung cancer screening completed [email or web address] [address], [address], 03/23/2024 16:47:33 03/24/2024 XR, chest, 1 view completed [address], [address], 04/01/2024 09:41:11 08/25/2024 MRI, brain + brain stem, w/o contrast completed [email or web address] [address], [address], 08/26/2024 13:59:16 09/05/2024 XR, chest, 2 view completed [email or web address] [address] [place] [address], [address], 09/07/2024 09:58:54 Procedure Notes None recorded. Medical Equipment None Reported. Allergies Allergen ID Allergen Name Allergen Category Reaction Reaction Severity Criticality Documentation Date Start Date Code Code System Note Provider Name and Address Organization Details Recorded Time 00237 oxycodone medicatio n Not available Not available [...] TAKE ONE CAPSULE BY MOUTH EVERY DAY 2023 active Not Available Not Available Not Avai lable budesonid e 0.5 mg/2 mL suspensio n [...] Updated DateTime 06/06/2023 175.26 cm 30.1 kg/m2 96904.84 g Jolynn Epperson [facility] [employer] [facility] 06/06/2023 09:37:58 Date Recorded Heart rate Respiratory rate Oxygen saturation Oxygen saturation in Arterial blood by Pulse oximetry Systolic blood pressure Diastolic blood pressure Provider Name and Address Organization Details Last Updated DateTime 3 81 /min 14 /min 98 % 98 % 96 mm[Hg] 66 mm[Hg] Angélica Antony [facility] [employer] [facility] 3 09:39:20 Date Recorded Body height Body mass index (BMI) Body weight Body temperature Heart rate Oxygen saturation Oxygen saturation in Arterial blood by Pulse oximetry Systolic blood pressure Diastolic blood pressure Provider Name and Address Organization Details Last Updated DateTime 3 175.26 cm 32.5 kg/m2 26983.3 2 g 98.7 [degF] 84 /min 92 % 92 % 133 mm[Hg] 86 mm[Hg] Kinsey Prieto MA [facility] [employer] [facility] 3 08:57:12 Date Recorded Body height Body mass index (BMI) Body weight Heart rate Respiratory rate Oxygen saturation Oxygen saturation in Arterial blood by Pulse oximetry Systolic blood pressure Diastolic blood pressure Provider Name and Address Organization Details Last Updated DateTime 3 175.26 cm 32.5 kg/m2 94289.3 2 g 109 /min 18 /min 95 % 95 % 109 mm[Hg] 63 mm[Hg] Angélica Antony [facility] [employer] [facility] 3 11:44:21 Date Recorded Body height Body mass index (BMI) Body weight Body temperature Oxygen saturation Oxygen saturation in Arterial blood by Pulse oximetry Inhaled oxygen flow rate Heart rate Systolic blood pressure Diastolic blood pressure Provider Name and Address Organization Details Last Updated DateTime 4 175.26 cm 34.6 kg/m2 318145. 61 g 97.6 [degF] 92 % 92 % 3 L/min 102 /min 142 mm[Hg] 88 mm[Hg] Sherita Rosas RN [facility] [employer] 4 14:27:39 Date Recorded Body height Body mass index (BMI) Body weight Body temperature Oxygen saturation Oxygen saturation in Arterial blood by Pulse oximetry Inhaled oxygen flow rate Heart rate Systolic blood pressure Diastolic blood pressure Provider Name and Address Organization Details Last Updated DateTime 4 175.26 cm 35.1 kg/m2 143105. 98 g 100 [degF] 93 % 93 % 3 L/min 89 /min 130 mm[Hg] 70 mm[Hg] Sherita Rosas RN [place] [facility] [place] [employer] 4 09:55:40 Social History Question Answer Notes LastModified by Organizat ion Details LastModified Time Tobacco Smoking Status Former Smoker Not Available [facility] 12/12/2022 18:04:03 What Is Your Level Of Alcohol Consumption? Occasional [id number] Information not available 12/12/2022 What Is Your Level Of Caffeine Consumption? None [email or web address] Information not available 01/09/2023 In The 14 Days Before Symptom Onset, Have You Had Close Contact With A Laboratory-confir med COVID-19 While That Case Was Ill? No [id number] Information not available 12/12/2022 In The 14 Days Before Symptom Onset, Have You Had Close Contact With A Person Who Is Under Investigation For COVID-19 While That Person Was Ill? No [id number] Information not available 12/12/2022 What Type Of Diet Are You Following? REGULAR [email or web address] Information not available 01/09/2023 What Is Your Occupation? Disability [id number].[id number] Information not available 12/12/2022 When Did You Quit Smoking? 1-5yearssincel astcigarette MIGRATION.[id number] 6179 Information not available 12/12/2022 Do You Use Any Illicit Or Recreational Drugs? No Information not available 01/09/2023 Has Tobacco Cessation Counseling Been Provided? No MIGRATION.[id number] Information not available 12/12/2022 Have You Recently Traveled Abroad? No MIGRATION.[id number] 6549 Information not available 12/12/2022 Do You Have Any Dietary Restrictions? No [email or web address] Information not available 01/09/2023 Do You Or Have You Ever Used Any Other Forms Of Tobacco Or Nicotine? No MIGRATION.[id number] 5724 Information not available 12/12/2022 Sex: Unknown Functional Status Question Answer Note LastModified by Organization D etails LastModified Time What is your exercise level? Heavy Information not available 01/09/2023 Mental Status None recorded. Family History Relationship Description Onset Age of this Age Resolved Age Notes LastModified by Organization Details LastModified Time Sister Diabetes mellitus [id number] Not available 12/12/2022 18:04:04 Sister Cerebrovascu lar accident [email or web address].050 [id number] Not available 12/12/2022 18:04:04 Sister Hypertensive disorder [id number].187 [id number] Not available 12/12/2022 18:04:04 Mother Diabetes mellitus MIGRATION.947 [id number] Not available 12/12/2022 18:04:04 Brother Cerebrovascu lar accident MIGRATION.860 [id number] Not available 12/12/2022 18:04:04 Brother Malignant neoplastic disease MIGRATION.987 [id number] Not available 12/12/2022 18:04:04 Father Heart disease MIGRATION.935 [id number] Not available 12/12/2022 18:04:04 Father Malignant neoplastic disease MIGRATION.819 [id number] Not available 12/12/2022 18:04:04 Mother Cerebrovascu lar accident [email or web address] Not available 09:49:05 Mother Hypertensive disorder [email or web address] Not available 2022 09:49:24 Sister Arthritis [email or web address] Not available 06/06/2023 09:49:15 Brother Family history of malignant neoplasm [email or web address] Not available 2022 09:49:42 Father Family history of malignant neoplasm [email or web address] Not available 2022 09:49:42 Medical History Condition Response ARTHRITIS Y ALLERGIES/HAYFEVER Y LUNG DISEASE/DISORDER Y HEARTBURN / REFLUX Y PULMONARY DISEASE Y USE OF NSAIDS Y BACK / NECK PROBLEMS Y HEADACHES/MIGRAINES Y ANXIETY DISORDER Y Immunizations Vaccine Type Date Status Note Provider Nam e and Address Organization Details Recorded Time Influenza, split virus, trivalent, preservative 8 completed Not Available [facility] 12/12/2022 18:05:38 Influenza, split virus, quadrivalent, PF 9 completed Not Available [facility] 12/12/2022 18:05:38 Influenza, split virus, quadrivalent, PF 8 completed Not Available [facility] 12/12/2022 18:05:38 Tdap 3 completed RAY Leal [address] [place] [address], [place] [address], [address], [place] [facility] 02/26/2023 13:00:04 Past Encounters Encounter ID Performer Location Encounter Start Date Encounter Closed Date Diagnosis/Indication Diagnosis SNOMED-CT Code Diagnosis ICD10 Code [id number] [facility] [place] [address] [facility] [address] [place] [address] 06/14/2022 00:00:00 06/19/2022 11:50:24 [id number] [facility] [place] [address] [facility] [address] [place] [address] 07/09/2022 00:00:00 07/09/2022 13:46:[id number] [facility] Primary Care [facility] [address] [facility] [address] [place] [address] 01/09/2023 09:54:34 01/09/2023 11:15:00 Chronic obstructive pulmonary disease 35982661 J44.9 Seasonal allergy 7123153 04 J30.2 Chronic cough 56362532 R 05.3 Pain of ri ght knee joint 8151404674 55139 M25.561 Gastroesop hageal reflux disease 302915186 K21.[id number] [facility] Primary Care [facility] [address] [facility] [address] [place] [address] 02/26/2023 10:25:25 02/26/2023 11:43:04 Adult health examination 287429974 Z00.00 Administra tion of diphtheria, pertussis, and tetanus vaccine 261863631 Z23 Chronic ob structive pulmonary disease 69449332 J44.9 Ingrowing toenail 737022 009 L60.0 Screening for disorder 277510613 Z13.9 [id number] RAY Leal [facility] Primary Care [facility] [address] [facility] [address] [place] [address] 03/19/2023 10:15:08 03/19/2023 12:42:51 Lower abdominal pain 18726197 R10.30 [id number] Mata Lugo DPM [facility] [place] [address] [facility] [address] [place] [address] 06/06/2023 09:24:40 06/06/2023 11:23:54 Ingrowing nail of toe of right foot 0525294675 2823218 L60.0 [id number] RAY Leal [facility] Primary Care [facility] [address] [facility] [address] [place] [address] 08/12/2023 08:29:41 08/12/2023 09:38:22 Chronic obstructive pulmonary disease 37657718 J44.9 [id number] Mata Lugo DPM [facility] Podiatry [place] [address] [facility] [address] [place] [address] 09/17/2023 11:36:50 09/30/2023 17:32:[id number] [facility] Primary Care [facility] [address] [facility] [address] [place] [address] 03/05/2024 13:57:58 03/05/2024 15:12:45 Adult health examination 616733446 Z00.00 Screening for disorder 286265562 Z13.9 Diabetes m ellitus screening 297988178 Z13.1 Hyperlipid emia screening 831748525 Z13.220 Thyroid di sorder screening 259894188 Z13.29 Anemia screening 9407080 07 Z13.0 Headache 06769497 R51.[id number] [facility] Primary Care [facility] [address] [facility] [address] [place] [address] 06/02/2024 09:44:35 06/02/2024 10:36:45 Chronic obstructive pulmonary disease 12454580 J44.9 Hyperthyroidism 92750337 E05.90 Headache 03879374 R51.9 Health Concerns Section Related Observation LastModified by Organization Detai ls LastModified Time None Recorded Concern Status LastModified by Organization Details LastModified Time None Recorded Advance Directives Directive None Recorded Payers Encounter Date Sequence Insurance Name Policy Number Policy Walls Covered Member ID Walls Member ID Guarantor Name 06/06/2023 1 [place]ley [place] [id number] Bentley [place]a 06/06/2023 2 [place] OR MEDIC[place] REPLACEMENT PRIMARY) [place]ley [place] [id number] Bentley [place] 08/12/2023 1 [place] [id number] Bentley [place] 08/12/2023 2 [place] WHEN [place] OR MED[place] REPLACEMENT PR[place]) Bentley [place] [id number] [place]ley [place] 09/17/2023 1 [place] Bentley [place]es [id number] Bentley [place] 09/17/2023 2 [place] OR [place]PL[place]EMENT [place]) Bentley [place] [id number] Bentley [place] 03/05/2024 2 [place] OR [place] PRIMARY) Bentley Mesa [id number] Bentley [place]a 03/05/2024 1 [facility] (MEDICARE REPLACEMENT/AD VANTAGE - HMO) [id number] [place] [id number] Bentley [place] 06/02/2024 2 [place] OR [place]IC[place] REPLACEMENT [place]IMARY) Bentley [place] [id number] Bentley [place] 06/02/2024 1 [facility] (MEDICARE REPLACEMENT/AD VANTAGE - HMO) [id number] [place] [id number] Bentley [place] Notes Date Note Type Note Provider Name [...] other pedal complaints. Mata Lugo DPM [address], [place], [address], [facility] [employer] 06/06/2023 14:15:23 08/12/2023 text/html Pt. here for routine follow-up. States his breathing has been doing better. He is not on any oxygen at office visit today. RAY Leal [address], [place], [address], [facility] [employer] 08/12/2023 10:04:11 03/05/2024 text/html pt is here for annual physical GILMAR Velasquez [address] [address], [place], [address], [facility] [employer] 03/05/2024 15:11:48 06/02/2024 text/html pt is here for f/u GILMAR Mesa [address] [address], [place], [address], [facility] 06/02/2024 10:31:58
--- OUTSIDE RECORDS SUMMARY | 2024-10-14 06:00 | XMS_ITS | Encounter Summary ---
Author Organization [facility] Healthcare Address [address] [place] [address] Care Team Providers Care Project Control Analyst Name Role Phone Aristeo Khan MD Primary Care Provider Ravi Queen MD Unavailable [phone] Reason for Visit * Reason Comments Follow-up Pain Encounter Details Date Type Department Care Team (Latest Contact Info) Description 06/11/2024 9:06 AM CDT - 06/11/2024 11:59 PM CDT Hospital Encounter [facility] 2 [facility] A, [facility] [address] [place] [address] Kenney Holder MD [address] [place] [address] [address] [place] [address] Chronic pain of right knee Discharge Disposition: Discharge to home or self care Social History Tobacco Use Types Packs/Day Years Used Date Smoking Tobacco: Former Smokeless Tobacco: Former PHQ-2 Answer Date Recorded PHQ-2 Total Score (If total score is 3 or more points, staff should administer the PHQ-9) 0 06/11/2024 Sex and Gender Information Value Date Recorded Sex Assigned at Not on file 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 Gender Identity Not on file Sexual Orientation Not on file documented as of this encounter Last Filed Vital Signs Vital Sign Reading Time Taken Comments Blood Pressure 129/92 06/11/2024 9:22 AM CDT Pulse 95 06/11/2024 9:22 AM CDT Temperature - - Respiratory Rate 20 06/11/2024 9:22 AM CDT Oxygen Saturation 95% 06/11/2024 9:22 AM CDT on O2 Inhaled Oxygen Concentration - - Weight - - Height - - Body Mass Index - - documented in this encounter Medications at Time of Discharge albuterol 2.5 mg /3 mL (0.083 %) nebulizer solution 06/26/2022 albuterol HFA (PROVENTIL HFA,VENTOLIN HFA,PROAIR HFA) 90 mcg/actuation inhaler Ventolin HFA 90 mcg/actuation aerosol inhaler aspirin 81 mg enteric coated tablet daily bromfenac (Prolensa) 0.07 % drops Prolensa 0.07 % eye drops Daliresp 500 mcg tablet 06/02/2022 fluticasone propionate (FLONASE) 50 mcg/actuation nasal spray fluticasone propionate 50 mcg/actuation nasal spray,suspension glycopyrrol-nebul izer-accessor (Lonhala Magnair Starter) 25 mcg/mL solution for nebulization Lonhala Magnair Refill 25 mcg/mL solution for nebulization INHALE 1 ML EVERY DAY IN THE MORNING AND IN THE EVENING ADMINISTER AT THE SAME TIME(S) EACH DAY ipratropium (ATROVENT HFA) 17 mcg/actuation inhaler Inhale 1 vial every 6 (six) hours latanoprost (XALATAN) 0.005 % ophthalmic solution Administer into both eyes nightly naloxone (NARCAN) 4 mg/actuation spray,non-aerosol Administer 1 spray into affected nostril(s) as needed for opioid reversal 1 each 08/01/2023 omeprazole (PriLOSEC) 20 mg capsule TAKE ONE (1) CAPSULE BY MOUTH EVERY DAY predniSONE (DELTASONE) 10 mg tablet TAKE ONE TABLET DAILY WITH A MEAL FOR 30 DAYS 5 02/12/2019 promethazine-DM (PROMETHAZINE-DM) 1.25-3 mg/mL syrup TAKE ONE TEASPOONFUL 4 TIMES DAILY NEEDED FOR COUGH 13 04/10/2019 raNITIdine (ZANTAC) 150 mg tablet Take 1 tablet (150 mg total) by mouth 05/08/2017 HYDROcodone-aceta minophen (NORCO) 5-325 mg per tabletIndications :Pain Take 1 tablet by mouth 4 (four) times a day as needed for pain 120 tablet 06/11/2024 4 HYDROcodone-aceta minophen (NORCO) 5-325 mg per tabletIndications :Pain Take 1 tablet by mouth 4 (four) times a day as needed for pain 120 tablet 07/11/2024 4 HYDROcodone-aceta minophen (NORCO) 5-325 mg per tabletIndications :Pain Take 1 tablet by mouth 4 (four) times a day as needed for pain 120 tablet 08/10/2024 4 documented as of this encounter Ordered Prescriptions Prescription Sig Dispense Quantity Refills Last Filled Start Date End Date HYDROcodone-acetam inophen (NORCO) 5-325 mg per tabletIndications: Pain Take 1 tablet by mouth 4 (four) times a day as needed for pain 120 tablet 08/10/2024 09/01/2024 HYDROcodone-acetam inophen (NORCO) 5-325 mg per tabletIndications: Pain Take 1 tablet by mouth 4 (four) times a day as needed for pain 120 tablet 07/11/2024 09/01/2024 HYDROcodone-acetam inophen (NORCO) 5-325 mg per tabletIndications: Pain Take 1 tablet by mouth 4 (four) times a day as needed for pain 120 tablet 06/11/2024 09/01/2024 documented in this encounter Discharge Disposition Disposition Code Departure Means Destination Discharge to home or self care documented in this encounter Progress Notes * Kenney Holder MD - 06/11/2024 9:30 AM CDT Treatment Summary Brief assessment and plan: generalized chronic pain on stable dose, long-term opioids; pending right genicular RFA for chronic knee pain The following imaging/procedural orders were placed during this visit: No orders of the defined types were placed in this encounter. Medications: Medinah 5-325 QID PRN Follow up: 3 months Today's Date: 06/14/2024 Patient Name: Bentley Mesa Age: 64 y.o. [facility] Return Visit Subjective Bentley Mesa returns today for ongoing treatment regarding his history of axial mid/upper backand R knee pain. Recall PMH is notable for history of obesity, substance abuse in long-term remission, COPD on home oxygen. Primary purpose of today's visit: routine follow up No procedure results to discuss today. Pending schedule for genicular RFA. Reports that today, pain is Pain Score: 3/10 and is same as the pain described previously, see below for pain questionnaire answers. Pain Descriptors: Aching, Burning, Sharp, Numbness (numbness right toes, weakness in knees) Pain Location: Knee (lower back) Aggravating Factors: Other (Comment) (general activity) Alleviating factors: rest, taking medications, and Activity modification Pain Radiating Towards: denies Regarding current medication regimen, patient reports pain is greatly relieved (ie >75%) with current regimen. Current prescription(s) via this clinic: Medinah 5-325 QID PRN Changes made during last visit? No Side effects? No OME (if applicable): 20 Last UDS: 02/2024, consistent Of note, seen by Orthopedics in the past (Dr. 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 This was in 2019, I do not see any follow up from this. THERAPIES TO DATE INTERVENTIONS (this clinic only): RELEVANT SURGERIES: Right genicular nerve block: 03/2024, pending RFA Per patient, has had numerous injections in the past but nothing ever worked - previous IPC patientper chart review Current medications: [x] Tylenol [] Gabapentin [] Nortriptyline [] Tramadol [] Oxycontin [] Flexeril [x] Lidocaine patch [] -Triptans [] Aspirin [] Lyrica [] Amitriptyline [] Tylenol 3 [] MSContin [] Tizanidine [x] OTC topicals [] Propranolol [] Aleve [] Cymbalta [] Topiramate [] Codeine [] Dilaudid [] Baclofen [] Capsaicin [] Botox [] Ibuprofen [] Valproate [] Oxycodone [] Methadone [] Soma [] Fioricet [] Meloxicam [] Carbamazepine [x] Medinah [] Fentanyl [] Metaxalone [] Diclofenac [] Naltrexone [] Percocet [] Buprenorphine [] Methocarbamol [] Celebrex [] Morphine [] Nucynta [] Soma Other: Previous medication trials: CONSERVATIVE MEASURES [x] Physical Therapy [] Chiropractor [x] Home Exercise [] Yoga/stretching [x] TENS Unit [x] OTC medications (see above) [x] Heat/ice [] Other ( ) Pt has tried the conservative measures indicated above for at least 12 months with inadequate relief. Bentley Mesa's history was reviewed and updated as appropriate including past medical history,past surgical history, social history, family history, allergies, and home medication list. A review of systems was completed, reviewed, and scanned into the chart. ALVIN, PEG Scale, and Current Opioid Misuse Measure (COMM) reviewed during this encounter. Modified Oswestry Low Back Pain Score: 32 Objective Vitals: 06/11/24 0922 BP: 129/92 Pulse: 95 Resp: 20 SpO2: 95% Comment: on O2 PHYSICAL EXAM *abbreviated physical exam given nature of today's visit General: Pleasant, no acute distress, normal appearance, grooming and nutrition Skin: No rashes or lesions on exposed skin Heart/Lungs: supplemental oxygen via nasal cannula Neuro/MSK: Ambulates with assist device Normal coordination in upper and lower extremities Strength and sensation intact throughout No hyperreflexia No upper motor neuron signs DIAGNOSTICS I have reviewed all relevant imaging studies and explained pertinent findings to the patient. Assessment/Plan Generalized chronic pain Pending right genicular RFA Long-term use of opioids COPD on oxygen Patient presents today primarily for medication refill, see previous encounter note outlining my concerns regarding narcotics and chronic lung disease. Has been receiving Medinah from this clinic sinceat least [address] Queen, this was a prescription that I inherited upon joint in the practice. Patient and continues to deny any side effects or respiratory depression from Medinah, still remains at a relatively low dose and we will not increase going forward. For this reason I am okay withthree-month refill. Pending R genicular RFA. Kenney Holder MD Interventional Pain Management [facility] PLAN JUSTIFICATION At this time, our clinic will (or will continue to) provide an opioid prescription for treatment ofthis patient's pain. This is a condition that A) has failed to respond to non-opioid alternatives and B) necessitates treatment for longer than 7 days. Both [place] PDMP and pain contract reviewed and appropriate. There are no concerns for aberrant use, misuse, or diversion and the opioid therapy continues to provide functional benefit. We reviewedtreatment goals (ie maximizing function, improving quality of life) and that medication therapy should always be viewed as a supplement to regular exercise/physical therapy/weight loss. We reviewed side effects of chronic opioid therapy including (but not limited to): drowsiness, tolerance, addiction, hyperalgesia, endocrine dysfunction, immune-suppression, constipation, itching, nausea/vomiting, respiratory depression, sexual dysfunction, and . We also reviewed that opioids may not be combined with benzodiazepines, alcohol, muscle relaxants (specifically baclofen, soma, robaxin, and diazepam), or other depressant medications given risk for excessive sedation and respiratory depression. Concomitant use of these substances will result in discontinuation of prescription. UDS screens will be performed to assess for medication, metabolites, other medications, and illicit substances. Patient is aware and expressed understanding. Prescription provided: Medinah 5-325 QID PRN Duration of prescription: 3 months Urine sample obtained today: [facility] Best Practice documentation Blood pressure in clinic today was BP: 129/92. This classifies as a hypertensive BP reading (SBP > 140 OR DBP > 90). Recommended lifestyle modifications and discussion with PCP. Patient is not a tobacco user. PATIENT EDUCATION Learning needs assessment was performed and no barriers identified. Explained diagnosis and treatment plan. Patient expressed understanding and was able to teach back. I personally spent a total of 10 minutes of [id number] time performing a review of the recordand/or discussion with the patient/caregiver as described above. Total time spent with patient 15 minutes, total time in counseling 10 minutes. CATERING TRUCK OPERATOR: Lock Expert completed with [employer]ency [employer], dictation proofread to best of my ability. documented in this encounter Nursing Notes * Lia Delgado RN - 06/11/2024 9:30 AM CDT Level 2 Escorted patient to exam room. Obtained vital signs. Reviewed patient's allergies and current medications. Obtained and verified patient's simple medical/surgical history. Confirmed the reason for visit with the patient. Obtained the following screening assessments: [x] Modified Oswestry Low Back Pain Questionnaire [] PMC Intake Questionnaire [] PMC Follow up Questionnaire [] Fall Risk Assessment (Tiny, Inna Wiley, Jay) [x] Depression/Anxiety Assessment (GAD7, PHQ-9, [place] Suicide, Mendez Depression) [] Disability Scale [] CAGE [] SOAPP-R Additional tasks included: [] Random medication adherence check (pill verification by two nurses) [] Work/school note written [] Pended CT/MRI/MRA order [x] Pain assessment for multiple sites [x] PEG, COMM Vital Signs Pulse: 95 Resp: 20 BP: 129/92 SpO2: 95 % (on O2) Post-visit transport confirmed with the patient. Total time spent for patient care, education, and care coordination was approximately 11-20 minutes. documented in this encounter Plan of Treatment Not on file documented as of this encounter Goals Goal Patient Goal Type Associated Problems Recent Progress Patient-Stated? Author [facility] Behavioral [facility] On track( 023 1:36 PM CDT) Esperanza Dobson RN Note: Patient will establish a comfort-function goal and identify the pain level that will allow the patient to perform desired activities and achieve an acceptable quality of life. documented as of this encounter Visit Diagnoses Diagnosis Chronic pain of right knee documented in this encounter Discontinued Medications Medication Sig Discontinue Reason Start Date End Da te HYDROcodone-acetaminophe n (NORCO) 5-325 mg per tabletIndications:Pain Take 1 tablet by mouth 4 (four) times a day as needed for pain Reorder 03/12/2024 06/11/2024 HYDROcodone-acetaminophe n (NORCO) 5-325 mg per tabletIndications:Pain Take 1 tablet by mouth 4 (four) times a day as needed for pain Reorder 04/11/2024 06/11/2024 HYDROcodone-acetaminophe n (NORCO) 5-325 mg per tabletIndications:Pain Take 1 tablet by mouth 4 (four) times a day as needed for pain Reorder 05/11/2024 06/11/2024 documented as of this encounter Care Teams Project Control Analyst Relationship Specialty Start Date End Date Aristeo Khan MD [address] [place] [address] PCP - General 06/28/22 Ravi Queen MD [address] [place] [address] [address] Anesthesiologist Pain Management 09/05/22 documented as of this encounter
--- OUTSIDE RECORDS SUMMARY | 2024-10-14 06:00 | XMS_ITS | Encounter Summary ---
Author Organization [facility] Healthcare Address [address] [place] [address] Care Team Providers Care Morals Squad Police Officer Name Role Phone Aristeo Khan MD Primary Care Provider [phone] Ravi Queen MD Unavailable [phone] Encounter Details Date Type Department Care Team (Late st Contact Info) Description 09/09/2024 Documentation [facility] [address] [place] [address] A, [address] [place] [address] Liudmila Espinoza RN Social History Tobacco Use Types Packs/Day Years Used Date Smoking Tobacco: Former Smokeless Tobacco: Former PHQ-2 Answer Date Recorded PHQ-2 Total Score (If total score is 3 or more points, staff should administer the PHQ-9) 0 09/01/2024 Sex and Gender Information Value Date Recorded Sex Assigned at Not on file Legal 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 Author [facility] On track( 023 1:36 PM CDT) No Esperanza Amaral, RN Note: Patient will establish a comfort-function goal and identify the pain level that will allow the patient to perform desired activities and achieve an acceptable quality of life. documented as of this encounter Visit Diagnoses Not on filedocumented in this encounter Care Teams Morals [employer] Police Officer Relationship Specialty Start Date End Date Aristeo Khan MD [address] [place] [address] PCP - General 06/28/22 Ravi Queen MD 2 [facility] [address] [address] Anesthesiologist Pain Management 09/05/22 documented as of this encounter
--- OUTSIDE RECORDS SUMMARY | 2024-10-14 06:00 | XMS_ITS | Encounter Summary ---
Author Organization [facility] Address [address] [place] [address] Care Team Providers Care Yardage Control Operator Name Role Phone Bentley Kyle MD Primary Care Provider [phone] Reason for Visit * Reason Comments Follow Up Encounter Details Date Type Department Care Team (Late st Contact Info) Description 11/21/2021 1:00 PM GROUP SALES COORDINATOR Office Visit [facility] [address] [place] [address] Carson Pineda MD [address] [place] [address] Chronic respiratory failure with hypoxia and hypercapnia (Primary Dx); Chronic obstructive pulmonary disease, unspecified COPD type; Personal history of tobacco use, presenting hazards to health; Severe obesity (BMI 35.0-39.9) with comorbidity Social History Tobacco Use Types Packs/Day Years Used Date Smoking Tobacco: Never Smokeless Tobacco: Never Sex and Gender Information Value Date Recorded Sex Assigned at Not on file Gender Identity Not on file Sexual Orientation Not on file COVID-19 Exposure Response Date Recorded In the last month, have you been in contact with someone who was confirmed or suspected to have Coronavirus / COVID-19? No / Unsure 11/21/2021 1:02 PM GROUP SALES COORDINATOR documented as of this encounter Last Filed Vital Signs Vital Sign Reading Time Taken Comments Blood Pressure 130/80 11/21/2021 1:06 PM GROUP SALES COORDINATOR Pulse 87 11/21/2021 1:06 PM GROUP SALES COORDINATOR Temperature - - Respiratory Rate - - Oxygen Saturation 91% 11/21/2021 1:06 PM GROUP SALES COORDINATOR 3 L Inhaled Oxygen Concentration - - Weight 116.1 kg (256 lb) 11/21/2021 1:06 PM GROUP SALES COORDINATOR Height 175.3 cm (5' 9 ) 11/21/2021 1:06 PM GROUP SALES COORDINATOR Body Mass Index 37.8 11/21/2021 1:06 PM GROUP SALES COORDINATOR documented in this encounter Progress Notes * Carson Pineda MD - 11/21/2021 1:08 PM CST Pulmonary Outpatient Followup Note 11/21/2021 1:08 PM Patient Name: Bentley Mesa 1960 Primary Care Physician: Bentley Kyle MD Date of Service: 11/21/2021 Impression: 1. Chronic hypoxemic and hypercarbic respiratory failure necessitating nocturnal noninvasive ventilation using a Trilogy machine 2. Chronic obstructive pulmonary disease GOLD 3 3. Status post bronchoscopic lung volume reduction with endobronchial Spiration valve placement x3 in the right upper lobe 4. Right upper lobe lung nodule 5. History of tobacco use 6. History of cocaine use 7. Severe obesity ?? Plan: 1. Reviewed his follow-up high-resolution CT chest imaging that demonstrates right-sided atelectasis??commensurate with previous endobronchial valve placement,??his right upper lobe lung nodule is not clearly visible at this time accordingly. Plan to obtain a follow-up quantitative assessment of his target lobe volume reduction using Stratx analysis 2. Continue his COPD management with nebulized budesonide and DuoNebs in conjunction with daily Daliresp 3. He has been advised to discuss the possible taper and discontinuation of oral prednisone with his primary bench hand Dr. Hummel 4. Continue oral azithromycin 3 times a week 5. Continue nocturnal noninvasive ventilation using his Trilogy machine 6. Continue supplemental oxygen as needed, wean oxygen by home oximetry for an SpO2 88-92% 7. He has encouraged to continue with pulmonary rehabilitation 8. Weight loss has been strongly advocated 9. At this time, his continued COPD management will be transferred back to his primary bench hand Dr Hummel and RAY Amanda, I am available at any time to be called with further questions Interim History: Patient is a 61 y.o. male who presents for followup. In the interim, he has been evidencing a slow improvement in his overall functionality, currently endorsing dyspnea on exertion with moderate activity corresponding to mMRC score of 2. He remains in a pulmonary rehabilitation 3 times a week, and has noticed an overall improvement in his oxygen saturation even though he currently remains on oxygen supplementation at 3 L/minute. He denies any worsening expectoration, cough, fever, chest pain orhemoptysis. He also denies any recent changes in his weight or appetite. Current Medications Current Outpatient Medications Medication Sig Dispense Refill ??? azithromycin (ZITHROMAX) 500 mg tablet Take 1 Tablet (500 mg) by mouth every Saturday, Saturday,and Saturday. 30 Tablet 0 ??? tamsulosin (FLOMAX) 0.4 mg capsule Take 0.4 mg by mouth daily. ??? promethazine (PHENERGAN) 12.5 mg Tablet Take 12.5 mg by mouth every 6 hours as needed for Nausea/Emesis. ??? dextromethorphan-guaiFENesin (MUCINEX DM) 30-600 mg Tablet Sustained Release 12HR Take 1 Tabletby mouth every 12 hours. ??? predniSONE (DELTASONE) 10 mg tablet Take 10 mg by mouth daily. ??? ALPRAZolam (XANAX) 0.5 mg tablet Take 0.5 mg by mouth 3 times daily as needed for Anxiety. ??? roflumilast (DALIRESP) 500 mcg Tablet Take 1 Tablet (500 mcg) by mouth daily. 30 Tablet 5 ??? albuterol (PROVENTIL,VENTOLIN) 0.63 mg/3 mL Solution for Nebulization Take 0.63 mg by inhalation one time only. ??? budesonide (PULMICORT RESPULE) 0.25 mg/2 mL Suspension for Nebulization Take by inhalation 2 times daily. ??? HYDROcodone-acetaminophen 2.5-325 mg Tablet Take by mouth. No current facility-administered medications for this visit. Allergies Allergies Allergen Reactions ??? Oxycodone Hives Past Medical History: Diagnosis Date ??? Community acquired pneumonia ??? Emphysema of lung Past Surgical History: Procedure Laterality Date ??? BRONCHOSCOPY No family history on file. Social History Socioeconomic History ??? Marital status: Spouse name: Not on file ??? Number of children: Not on file ??? Years of education: Not on file ??? Highest education level: Not on file Occupational History ??? Not on file Tobacco Use ??? Smoking status: Never Smoker ??? Smokeless tobacco: Never Used Substance and Sexual Activity ??? Alcohol use: Not on file ??? Drug use: Not on file ??? Sexual activity: Not on file Other Topics Concern ??? Not on file Social History Narrative ??? Not on file Social Determinants of Health Financial Resource Strain: Not on file Food Insecurity: Not on file Transportation Needs: Not on file Physical Activity: Not on file Stress: Not on file Social Connections: Not on file Intimate Partner Violence: Not on file Housing Stability: Not on file PHYSICAL EXAM BP 130/80 Pulse 87 Ht 5' 9 (1.753 m) Wt 116.1 kg (256 lb) SpO2 91% Comment: 3 L BMI 37.80 kg/m?? General: Alert and stable, appears in no acute distress. HEENT: Normocephalic and atraumatic. JAVAN, nasal mucosa is normal with no erythema or exudate. Oropharynx is normal. Neck: Supple, trachea midline, no adenopathy, thyroid normal. No jugular venous distension. Lungs: Bilateral equal but decreased breath sounds to auscultation. No crackles or wheeze. Heart: Heart sounds are normal and regular. No audible murmurs. Extremities: No cyanosis, clubbing or edema Lymph Nodes: Cervical, supraclavicular nodes normal. Neurologic: Non focal. Imaging: Results for orders placed or performed during the hospital encounter of 05/23/21 XR CHEST PA AND LATERAL 2 VW Narrative CHEST 2 VIEWS DATE: 05/23/2021 2:45 PM HISTORY: Centrilobular emphysema. COMPARISON: 04/20/2021. FINDINGS: Increased opacity in the right apex is again seen, unchanged. No new infiltrate is visualized. There is no pneumothorax or pleural effusion. The lungs are mildly hyperinflated. Impression IMPRESSION: Increased opacity in the right apex is again seen. DICTATION LOCATION: [facility] - [facility] Results for orders placed or performed during the hospital encounter of 04/18/21 XR CHEST PA OR AP 1 VW Narrative EXAMINATION: XR CHEST PA OR AP 1 VW, 04/18/2021 4:43 PM HISTORY: Post-Operative. See Reason for Exam COMPARISON: Comparison is made with a study from the same day. FINDINGS: An endobronchial valve in the superior right hilum is unchanged. The patient is rotated. Evolving right upper lobe opacities likely represent post bronchoscopy changes. Left upper lobe opacities are decreased likely representing improved atelectasis. No new focal consolidation. There is no pleural effusion or pneumothorax. The cardiomediastinal silhouette is unchanged. INCIDENTAL FINDINGS: None. Impression IMPRESSION: No pneumothorax. Evolving post bronchoscopy changes in the right upper lobe. Decreased left upper lobe atelectasis. DICTATION LOCATION: Location 2 - [facility] Problem List Patient Active Problem List Diagnosis Date Noted ??? Chronic hypoxemic respiratory failure ??? Glaucoma ??? Chronic respiratory failure with hypoxia and hypercapnia ??? Status post bronchoscopy ??? Lung nodule ??? Centrilobular emphysema I have personally reviewed all applicable data including labs, imaging studies, PFTs as well as sleep data where applicable, including individual tracings and waveforms. On the day of the visit, I spent 45 minutes providing care to this patient including Obtaining and/or reviewing separately obtained history, Performing a medically appropriate examination and/or evaluation, Counseling and educating the patient/family/caregiver, Ordering medications, tests or procedures and Documenting clinical information in the medical record. Please do not hesitate to contact me with any clarifications or questions. Carson Pineda MD Pulmonary, Critical Care, Neurocritical Care & Sleep Medicine [facility], [address] Off: [phone] Pager: [phone] P SALES COORDINATOR documented in this encounter Plan of Treatment Not on file documented as of this encounter Visit Diagnoses Diagnosis Chronic respiratory failure with hypoxia and hypercapnia- Primary Chronic obstructive pulmonary disease, unspecified COPD type Personal history of tobacco use, presenting hazards to health Severe obesity (BMI 35.0-39.9) with comorbidity documented in this encounter Care Teams Yardage Control Operator Relationship Specialty Start Date End Date Bentley Kyle MD [address] [place] [address] PCP - General Internal Medicine 04/18/21 documented as of this encounter
--- OUTSIDE RECORDS SUMMARY | 2024-10-14 06:00 | XMS_ITS | Encounter Summary ---
Author Organization [facility] Address [address] [place] [address] Care Team Providers Care Representative Phlebotomy Services Name Role Phone Unavailable Primary Care Provider Unavailabl e Reason for Referral * Outpatient Services (Routine) - Closed Specialty Diagnoses / Procedures Referred By Contac t Referred To Contact Respiratory Therapy Diagnoses Chronic obstructive pulmonary disease, unspecified COPD type Procedures PULMONARY FUNCTION TEST Marlyn Pineda MD [address] [place] [address] [facility] [address] [place] [phone] Referral ID Status Reason Start Date Expiration Date Visits Re quested Visits Authorized [id number] Closed 01/30/2021 03/02/2022 1 1 Reason for Visit * Outpatient Services (Routine) - Closed Specialty Diagnoses / Procedures Referred By Contac t Referred To Contact Respiratory Therapy Diagnoses Chronic obstructive pulmonary disease, unspecified COPD type Procedures PULMONARY FUNCTION TEST Marlyn Pineda MD [address] [place] [address] [facility] [address] [place] [address] Referral ID Status Reason Start Date Expiration Date Visits Re quested Visits Authorized [id number] Closed 01/30/2021 03/02/2022 1 1 Encounter Details Date Type Department Care Team (Latest Contact Info) Description 02/22/2021 9:49 AM CDT - 02/22/2021 11:59 PM CDT Hospital Encounter [facility] [address] [place] [address] Marlyn Pineda MD [address] [place] [address] Discharge Disposition: Home or Self Care Social History Tobacco Use Types Packs/Day Years [...] have Coronavirus / COVID-19? No / Unsure 02/22/2021 9:44 AM CDT documented as of this encounter Medications at Time of Discharge Medication Sig Dispensed Refills Start Date End Date roflumilast (DALIRESP) 500 mcg Tablet Take 1 Tablet (500 mcg) by mouth daily. 30 Tablet 5 12/07/2020 albuterol (PROVENTIL,VENTOLIN) 0.63 mg/3 mL Solution for Nebulization Take 0.63 mg by inhalation one time only. budesonide (PULMICORT RESPULE) 0.25 mg/2 mL Suspension for Nebulization Take by inhalation 2 times daily. HYDROcodone-acetaminoph en 2.5-325 mg Tablet Take by mouth. arformoteroL (Brovana) 15 mcg/2 mL Solution for Nebulization Take 15 mcg by inhalation one time only. 04/20/2021 documented as of this encounter Plan of Treatment Not on file documented as of this encounter Procedures Procedure Name Priority Date/Time Associated Diagnosis Comments PULMONARY FUNCTION TEST Routine 02/22/2021 10:25 AM CDT Chronic obstructive pulmonary disease, unspecified COPD type documented in this encounter Results * PULMONARY FUNCTION TEST (02/22/2021 10:25 AM CDT) 02/22/2021 10:2 5 AM CDT Narrative INTERFACE SYSTEM - 02/23/2021 10:42 PM CDT ?Pulmonary Function Report ? [facility] ? Test Date: ?02/22/2021 10:25 AM Pat Name: ? BENTLEY MESA ?Department: ?Room: ? Gender: ? M ?Senior Radiation Protection Technician: ?? : ?1960 ? Requested By: MARLYN Medrano Order Number: [id number] ?Reading MD: ?? Marlyn Pineda Interpretive Statements ? The patient is a 61 year old Black Male, height 69.0 in. and weight of 249 lbs. The indication for the pulmonary function test is Hx of COPD. Testing data quality was acceptable, flow volume loops demonstrated marked flattening of the expiratory limb consistent with an obstructive physiology. SPIROMETRY revealed a measured FVC of 2.64 Liters, 70 % of predicted. The measured FEV1 is 0.85 Liters, 29 % of predicted, the FEV1/FVC 32 %. Post bronchodilator, FVC is 2.79 Liters, 75 % of predicted, a change of 6 %. FEV1 is 1.00 Liters, 34 % of predicted, a change of 17 %. FEV1/FVC ratio 36 %. LUNG VOLUMES indices demonstrated a TLC of 6.00 Liters, 101 % pred and an RV of 3.27 Liters, 150 % of predicted. Post bronchodilator, TLC is 5.83 Liters, a change of -3 %. RV is 3.03 Liters, a change of -7 %, RV/TLC post BD 52 %. AIRWAY RESISTANCE measurements demonstrate a pre BD airway resistance (RAW) of 5.74 cmH2O/L/sec, 372 % of reference, and specific conductance (sGAW) of 0.033 L/s/cmH2O/L, 15 % predicted. Post bronchodilator, the RAW is 5.64 cmH2O/L/sec, a change of -2 %. sGAW is 0.042 L/s/cmH2O/L, a change of 28 %. DIFFUSION CAPACITY for carbon monoxide (DLCO) is 8.9 mL/min/mmHg, 32 % pred. Corrected for a hemoglobin of 14.8, DL Adj is 8.8 mL/min/mmHg, 32 % pred. IMPRESSION: Very severe obstructive ventilatory impairment with a negative bronchodilator response, which does not preclude a clinical trial of inhaled bronchodilator use. Evidence of moderate air trapping and a severely reduced diffusing lung capacity after adjusting for hemoglobin. ??Recommend an overnight oximetry study to detect nocturnal desaturation at this level of DLCO reduction. Electronically Signed On 02-23-2021 22:42:00 CDT by Marlyn Pineda Procedure Note Provider, Historical - 02/23/2021 Pulmonary Function Report [facility] Test Date: 02/22/2021 10:25 AM Pat Name: BENTLEY MESA Department: Room: Gender: M Senior Radiation Protection Technician: : 1960 Requested By: MARLYN Medrano Order Number: [id number] Reading MD: Marlyn Pineda Interpretive Statements The patient is a 61 year old Black Male, height 69.0 in. and weight of 249 lbs. The indication for the pulmonary function test is Hx of COPD. Testing data quality was acceptable, flow volume loops demonstratedmarked flattening of the expiratory limb consistent with an obstructivephysiology. SPIROMETRY revealed a measured FVC of 2.64 Liters, 70 % of predicted. The measured FEV1 is 0.85 Liters, 29 % of predicted, the FEV1/FVC 32 %. Post bronchodilator, FVC is 2.79 Liters, 75 % of predicted, a change of 6%. FEV1 is 1.00 Liters, 34 % of predicted, a change of 17 %. FEV1/FVC ratio 36 %. LUNG VOLUMES indices demonstrated a TLC of 6.00 Liters, 101 % pred and anRV of 3.27 Liters, 150 % of predicted. Post bronchodilator, TLC is 5.83 Liters, a change of -3 %. RV is 3.03Liters, a change of -7 %, RV/TLC post BD 52 %. AIRWAY RESISTANCE measurements demonstrate a pre BD airway resistance(RAW) of 5.74 cmH2O/L/sec, 372 % of reference, and specific conductance (sGAW)of 0.033 L/s/cmH2O/L, 15 % predicted. Post bronchodilator, the RAW is 5.64 cmH2O/L/sec, a change of -2 %. sGAW is 0.042 L/s/cmH2O/L, a change of 28 %. DIFFUSION CAPACITY for carbon monoxide (DLCO) is 8.9 mL/min/mmHg, 32 %pred. Corrected for a hemoglobin of 14.8, DL Adj is 8.8 mL/min/mmHg, 32 %pred. IMPRESSION: Very severe obstructive ventilatory impairment with a negativebronchodilator response, which does not preclude a clinical trial of inhaledbronchodilator use. Evidence of moderate air trapping and a severely reduced diffusing lung capacity after adjusting for hemoglobin. Recommend an overnightoximetry study to detect nocturnal desaturation at this level of DLCO reduction. Electronically Signed On 5-13-2021 22:42:00 CDT by Marlyn Pineda Marlyn Pineda MD PFT ORDERABLES INTERFACE SYSTEM Refer to clinic/hospital department documented in this encounter Visit Diagnoses Diagnosis Chronic obstructive pulmonary disease, unspecified COPD type documented in this encounter
--- OUTSIDE RECORDS SUMMARY | 2024-10-14 06:00 | XMS_ITS | Encounter Summary ---
Author Organization [facility] Address [address] Attn: Epic Prelude ADT FRAN[place]ISE CASTRO [address] Care Team Providers Care Bottle Labeler Name Role Phone Bentley Kyle MD Primary Care Provider [phone] Encounter Details Date Type Department Care Team (Latest Contact Info) Description 11/14/2021 Travel Social History Tobacco Use Types Packs/Day Years [...] have Coronavirus / COVID-19? No / Unsure 11/14/2021 12:22 PM BUNDLE PACKER documented as of this encounter Plan of Treatment Not on file documented as of this encounter Visit Diagnoses Not on filedocumented in this encounter Care Teams Bottle Labeler Relationship Specialty Start Date End Date Bentley Kyle MD [address] [place] [address] PCP - General Internal Medicine 04/18/21 documented as of this encounter
--- OUTSIDE RECORDS SUMMARY | 2024-10-14 06:00 | XMS_ITS | Encounter Summary ---
Author Organization [facility] Healthcare Address [address] [place] [address] Care Team Providers Care Blow Torch Operator Name Role Phone Aristeo Khan MD Primary Care Provider [phone] Ravi Queen MD Unavailable [phone] Reason for Visit * Reason Comments Follow-up Knee Pain right Hip Pain right Med Management Encounter Details Date Type Department Care Team (Latest Contact Info) Description 05/23/2023 9:14 AM CDT - 05/23/2023 11:59 PM CDT Hospital Encounter [facility] [address] [place], [place] [id number] [place] [address] [facility] [address] [place] [address] Osteoarthritis of right knee, unspecified osteoarthritis type [M17.11 (ICD-10-CM)] (Primary Dx); Chronic pain of right knee [M25.561, G89.29 (ICD-10-CM)]; Chronic pain syndrome Discharge Disposition: Discharge to home or self care Social History Tobacco Use Types Packs/Day Years Used Date Smoking Tobacco: Former Smokeless Tobacco: Former Tobacco Cessation:Counseling Given: Not Answered PHQ-2 Answer Date Recorded PHQ-2 Total Score (If total score is 3 or more points, staff should administer the PHQ-9) 0 12/27/2022 Sex and Gender Information Value Date Recorded Sex Assigned at Not on file Legal Sex Male 8:01 PM 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 Gender Identity Not on file Sexual Orientation Not on file documented as of this encounter Last Filed Vital Signs Vital Sign Reading Time Taken Comments Blood Pressure 107/83 05/23/2023 9:31 AM CDT Pulse 95 05/23/2023 9:31 AM CDT Temperature - - Respiratory Rate 17 05/23/2023 9:31 AM CDT Oxygen Saturation 93% 05/23/2023 9:31 AM CDT Inhaled Oxygen Concentration - - Weight - [...] ophthalmic solution Administer into both eyes nightly omeprazole (PriLOSEC) 20 mg capsule TAKE ONE [...] day as needed for pain 120 tablet 06/05/2023 3 HYDROcodone-aceta minophen (NORCO) 5-325 mg per tabletIndications :Pain Take 1 tablet by mouth every 6 (six) hours as needed for pain 120 tablet 07/06/2023 3 naloxone (NARCAN) 4 mg/actuation spray,non-aerosol Administer 1 spray into affected nostril(s) as needed for opioid reversal 1 each 06/28/2022 3 documented as of this encounter Discharge Disposition Disposition Code Departure Means Destination Discharge to home or self care documented in this encounter Progress Notes * Abraham Caba NP - 05/23/2023 10:00 AM CDT Patient Name: Bentley Mesa : 1960 Today's Date: 05/23/2023 PCP: Aristeo Khan MD Referring: Mau Lazo* Chief Complaint Patient presents with Follow-up Knee Pain right Hip Pain right Med Management HPI Bentley Mesa is a 63 y.o. male here for a return visit. The patient is normally seen at the [facility]. He presents complaining of severe aching, burning and sharp right hip and right knee pain made worse with ambulation. Pain is rated by the patient as 3/10 on the numeric painscale. PEG score is 6.3. Due to severe pain, the patient is having hard time participating in basicADLs and recreational activities such as basic housekeeping, driving, grocery shopping, meetings with friends and family. Alleviating factors include bedrest, ice/heat application The patient has tried and failed at least six months of conservative measures including physical therapy, bedrest, NSAIDs, and Tylenol. The patient continues daily exercises that were recommended by physical therapy. Due to severe pain, the patient is experiencing severe restrictions in participating in basic ADLs. The patient is taking hydrocodone 5/325 4 times a day as needed for moderate to severe pain, with moderate pain relief and no significant side effects (such as constipation or significant sedation). The patient reports 70% relief of their severe pain while taking pain medications. Going forward, the patient is asking for refill of his medications. He plans to continue seeing pain management provider in [facility]. Allergies Allergen Reactions Oxycodone Hives and Itching Past Medical History: Diagnosis Date Emphysema of lung (HCC) Glaucoma Knee pain, right No past surgical history on file. Social History Tobacco Use Smoking status: Former Smokeless tobacco: Former Substance and Sexual Activity Drug use: None Sexual activity: None Alcohol Use: Not on file Family History Problem Relation Age of Onset Heart disease Other Cancer Other Arthritis Other HOME MEDICATIONS : albuterol 2.5 mg /3 mL (0.083 %) nebulizer solution albuterol HFA (PROVENTIL HFA,VENTOLIN HFA,PROAIR HFA) 90 mcg/actuation inhaler aspirin 81 mg enteric coated tablet bromfenac (Prolensa) 0.07 % drops Daliresp 500 mcg tablet fluticasone propionate (FLONASE) 50 mcg/actuation nasal spray fpaofvxxaog-dxawrdsqp-camsnlly ([place] Magnair Starter) 25 mcg/mL solution for nebulization HYDROcodone-acetaminophen (NORCO) 5-325 mg per tablet latanoprost (XALATAN) 0.005 % ophthalmic solution omeprazole (PriLOSEC) 20 mg capsule predniSONE (DELTASONE) 10 mg tablet promethazine-DM (PROMETHAZINE-DM) 1.25-3 mg/mL syrup ipratropium (ATROVENT HFA) 17 mcg/actuation inhaler naloxone (NARCAN) 4 mg/actuation spray,non-aerosol raNITIdine (ZANTAC) 150 mg tablet Review of Systems Review of Systems Constitutional: Negative for activity change and fatigue. HENT: Negative for congestion, ear pain, sinus pressure, sinus pain and trouble swallowing. Eyes: Negative for pain. Respiratory: Positive for shortness of breath. Negative for wheezing. He wears home O2 at 3 liters Cardiovascular: Negative for chest pain. Gastrointestinal: Negative for abdominal pain, nausea, rectal pain and vomiting. Endocrine: Negative for cold intolerance and heat intolerance. Genitourinary: Negative for flank pain. Musculoskeletal: Positive for arthralgias (right knee pain and left shoulder). Negative for back pain, myalgias, neck pain and neck stiffness. Skin: Negative for rash. Allergic/Immunologic: Negative for immunocompromised state. Neurological: Positive for weakness (he reports right knee weakness) and numbness (he reports rightthigh numbness). Negative for seizures and headaches. Hematological: Does not bruise/bleed easily. Psychiatric/Behavioral: Negative for sleep disturbance. The patient is not nervous/anxious. Physical Exam Vitals: 05/23/23 0931 BP: 107/83 BP Location: Right arm Patient Position: Sitting Pulse: 95 Resp: 17 SpO2: 93% There is no height or weight on file to calculate BMI. Physical Exam Vitals and nursing note reviewed. Constitutional: General: He is awake. Appearance: Normal appearance. He is well-developed and well-groomed. HENT: Head: Normocephalic and atraumatic. Nose: Nose normal. Eyes: Pupils: Pupils are equal, round, and reactive to light. Neck: Trachea: No tracheal deviation. Cardiovascular: Rate and Rhythm: Normal rate and regular rhythm. Pulmonary: Effort: Pulmonary effort is normal. Breath sounds: Normal breath sounds. Musculoskeletal: General: Normal range of motion. Cervical back: Normal range of motion and neck supple. Skin: General: Skin is warm and dry. Neurological: Mental Status: He is alert and oriented to person, place, and time. Psychiatric: Attention and Perception: Attention and perception normal. Mood and Affect: Mood and affect normal. Speech: Speech normal. Behavior: Behavior normal. Behavior is cooperative. Thought Content: Thought content normal. Cognition and Memory: Cognition and memory normal. Judgment: Judgment normal. There is generalized tenderness to palpation of the right hip and groin, right knee. Right hip abduction is painful. The patient's typical knee pain is reproducible by weight-bearing Imaging: No recent imaging is available. Review of Data: Checked the [employer] FIRE CONTROL TECHNICIAN sheet and it was consistent with our meds. UDT results: 03/01/2023: Compliant The patient was given a prescription for intranasal Narcan for the management of opioid induced respiratory depression or excess sedation. I reviewed the [place] Prescription Monitoring Program printout and it was consistent and appropriate. The patient denies the use Tobacco former smoker The patient denies a diagnosis of hypertension. Based upon today's blood pressure reading he was encouraged to follow-up with primary care physician for further evaluation in management of his blood pressure. Problem List Musculoskeletal and Injuries Chronic pain of right knee - Primary Osteoarthritis of right knee Plan Bentley Mesa is a 63 y.o. male here for a return visit. The patient is normally seen at the [facility]. He presents complaining of severe aching, burning and sharp right hip and right knee pain made worse with ambulation. Pain is rated by the patient as 3/10 on the numeric painscale. PEG score is 6.3. Due to severe pain, the patient is having hard time participating in basicADLs and recreational activities such as basic housekeeping, driving, grocery shopping, meetings with friends and family. Alleviating factors include bedrest, ice/heat application The patient has tried and failed at least six months of conservative measures including physical therapy, bedrest, NSAIDs, and Tylenol. The patient continues daily exercises that were recommended by physical therapy. Due to severe pain, the patient is experiencing severe restrictions in participating in basic ADLs. The patient is taking hydrocodone 5/325 4 times a day as needed for moderate to severe pain, with moderate pain relief and no significant side effects (such as constipation or significant sedation). The patient reports 70% relief of their severe pain while taking pain medications. We have reviewed PDMP and last urine screening: Both compliant. We will refill hydrocodone/acetaminophen 5/325 4 times a day as needed for severe pain, 120 tablets with no refills. Two one- month prescriptions will be issued. The patient will follow-up in 2 months in [facility]. IAbraham, have personally performed the services described in the documentation , reviewed the documentation as recorded by the scribe in my presence, and it accurately and completely records my words and actions though there are potential variances in recording and starting sheet tank operator. Dictated not proofread. documented in this encounter Plan of Treatment Not on file documented as of this encounter Goals Goal Patient Goal Type Associated Problems Recent Progress Patient-Stated? Author -Pain Behavioral Health On track( 023 1:36 PM CDT) Esperanza Dobson RN Note: Patient will establish a comfort-function goal and identify the pain level that will allow the patient to perform desired activities and achieve an acceptable quality of life. documented as of this encounter Visit Diagnoses Diagnosis Osteoarthritis of right knee, unspecified osteoarthritis type [M17.11 (ICD-10-CM)]- Primary Chronic pain of right knee [M25.561, G89.29 (ICD-10-CM)] Chronic pain syndrome documented in this encounter Historical Medications * This list may reflect changes made after this encounter. latanoprost (XALATAN) 0.005 % ophthalmic solution Administer into both eyes nightly omeprazole (PriLOSEC) 20 mg capsule TAKE ONE (1) CAPSULE BY MOUTH EVERY DAY added in this encounter Care Teams Blow Torch Operator Relationship Specialty Start Date End Date Aristeo Khan MD [address] [place] [address] PCP - General 06/28/22 Ravi Queen MD 2 [facility] [address] [address] Anesthesiologist Pain Management 09/05/22 documented as of this encounter
--- OUTSIDE RECORDS SUMMARY | 2024-10-14 06:00 | XMS_ITS | Encounter Summary ---
Author Organization [facility] Healthcare Address [address] [place] [address] Care Team Providers Care Clamshell Operator Name Role Phone Aristeo Khan MD Primary Care Provider Ravi Queen MD Unavailable [phone] Reason for Visit * Reason Comments Follow-up Med Management Pain Encounter Details Date Type Department Care Team (Latest Contact Info) Description 09/19/2022 9:30 AM TITLE INSURANCE AGENT - 09/19/2022 11:59 PM TITLE INSURANCE AGENT Hospital Encounter [facility] [address] [place] [address] A, [address] [place] [address] Rosaline Rdz, RN PERITONEAL DIALYSIS [address] [place] [id number] Chronic pain of right knee (Primary Dx); Osteoarthritis of right knee, unspecified osteoarthritis type; Insomnia secondary to chronic pain; superintendent terminal (current) use of opiate analgesic Discharge Disposition: Discharge to home or self care Social History Tobacco Use Types Packs/Day Years Used Date Smoking Tobacco: Former Smokeless Tobacco: Former PHQ-2 Answer Date Recorded PHQ-2 Total Score (If total score is 3 or more points, staff should administer the PHQ-9) 0 09/19/2022 Sex and Gender Information Value Date Recorded Sex Assigned at Not on file Legal Sex Male 8:01 PM TITLE INSURANCE AGENT Gender Identity Not on file Sexual Orientation Not on file documented as of this encounter Last Filed Vital Signs Vital Sign Reading Time Taken Comments Blood Pressure 124/91 09/19/2022 9:39 AM TITLE INSURANCE AGENT Pulse 110 09/19/2022 9:39 AM TITLE INSURANCE AGENT Temperature - - Respiratory Rate 21 09/19/2022 9:39 AM TITLE INSURANCE AGENT Oxygen Saturation 92% 09/19/2022 9:39 AM TITLE INSURANCE AGENT on 3L of home O2 Inhaled Oxygen Concentration - - Weight - - Height - - Body Mass Index - - documented in this encounter Medications at Time of Discharge albuterol 2.5 mg /3 mL (0.083 %) nebulizer solution 06/26/2022 albuterol HFA (PROVENTIL HFA,VENTOLIN HFA,PROAIR HFA) 90 mcg/actuation inhaler Ventolin HFA 90 mcg/actuation aerosol inhaler Daliresp 500 mcg tablet 06/02/2022 ipratropium (ATROVENT HFA) 17 mcg/actuation inhaler Inhale 1 vial every 6 (six) hours predniSONE (DELTASONE) 10 mg tablet TAKE ONE TABLET DAILY WITH A MEAL FOR 30 DAYS 5 02/12/2019 promethazine-DM (PROMETHAZINE-DM ) 1.25-3 mg/mL syrup TAKE ONE TEASPOONFUL 4 TIMES DAILY NEEDED FOR COUGH 13 04/10/2019 raNITIdine (ZANTAC) 150 mg tablet Take 1 tablet (150 mg total) by mouth 05/08/2017 HYDROcodone-acet aminophen (NORCO) 5-325 mg per tabletIndication s:Pain Take 1 tablet by mouth 4 (four) times a day as needed for pain 120 tablet 07/28/2022 3 HYDROcodone-acet aminophen (NORCO) 5-325 mg per tabletIndication s:Pain Take 1 tablet by mouth 4 (four) times a day as needed for pain 120 tablet 10/26/2022 3 HYDROcodone-acet aminophen (NORCO) 5-325 mg per tabletIndication s:Pain Take 1 tablet by mouth 4 (four) times a day as needed for pain 120 tablet 09/26/2022 3 ipratropium-albu terol (DUO-NEB) 0.5-2.5 mg/3 mL nebulizer solution 2.5 mL 02/21/2017 3 naloxone (NARCAN) 4 mg/actuation spray,non-aeroso l Administer 1 spray into affected nostril(s) as needed for opioid reversal 1 each 06/28/2022 3 tamsulosin (FLOMAX) 0.4 mg extended release capsule Take 0.4 mg by mouth 05/08/2017 3 documented as of this encounter Discharge Disposition Disposition Code Departure Means Destination Discharge to home or self care documented in this encounter Progress Notes * Rosaline Rdz RN PERITONEAL DIALYSIS - 09/19/2022 9:30 AM CST Patient Name: Bentley Mesa : 1960 Today's Date: 09/19/2022 PCP: Aristeo Khan MD Referring: Ravi Queen MD Chief Complaint Patient presents with Follow-up Med Management Pain HPI Bentley Mesa is a 62 y.o. year old male seen in consultation today for a follow-up. Today he reports 75% reduction in his pain with the [place]. He continues with a Chief Complaint of right knee pain. The pain is described as a constant burning sharp ache. It rates Currently 4/10 on the numeric pain scale. At Worst 10/10 Provocative maneuvers include standing and walking. At Best 2/10 Alleviating maneuvers include with [place], sitting, and rest. He reports he is able to do his activities of daily living without difficulty. He reports that his consultants intern doesn't want him to have right knee surgery due to his lungs not being very strong but he continues to do PT and getting injections inhis knee with the hopes that this will also help his knee pain. He denies any falls since his last visit. With regard to additional symptoms the patient reports general right knee Weakness, He denies any Numbness. He denies bowel or bladder incontinence. He reports chronic pain associated Insomnia. Therapeutic modalities attempted to date include [place] 5/325 provides him relief, oral prednisone provides him no relief, multiple injections provided him no relief, Tylenol provides him no relief, ibuprofen provides him no relief, Aleve provides him no relief, and tramadol provides him no relief. Pain Score: 4 Patient's Stated Pain Goal: No pain Pain Location: Knee Pain Radiating Towards: denies Pain Descriptors: Burning;Sharp Pain Frequency: Constant/continuous Pain Onset: Ongoing Clinical Progression: Not changed Effect of Pain on Daily Activities: patient is able to complete adl's No Known Allergies Past Medical History: Diagnosis Date Emphysema of lung (CMS/HCC) (HCC) Glaucoma Knee pain, right History reviewed. No pertinent surgical history. Social History Tobacco Use Smoking status: Former Smokeless tobacco: Former Substance and Sexual Activity Drug use: None Sexual activity: None Alcohol Use: Not on file Family History Problem Relation Age of Onset Heart disease Other Cancer Other Arthritis Other HOME MEDICATIONS : albuterol 2.5 mg /3 mL (0.083 %) nebulizer solution albuterol HFA (PROVENTIL HFA,VENTOLIN HFA,PROAIR HFA) 90 mcg/actuation inhaler Daliresp 500 mcg tablet HYDROcodone-acetaminophen (NORCO) 5-325 mg per tablet HYDROcodone-acetaminophen (NORCO) 5-325 mg per tablet HYDROcodone-acetaminophen (NORCO) 5-325 mg per tablet ipratropium (ATROVENT HFA) 17 mcg/actuation inhaler ipratropium-albuterol (DUO-NEB) 0.5-2.5 mg/3 mL nebulizer solution naloxone (NARCAN) 4 mg/actuation spray,non-aerosol predniSONE (DELTASONE) 10 mg tablet promethazine-DM (PROMETHAZINE-DM) 1.25-3 mg/mL syrup raNITIdine (ZANTAC) 150 mg tablet tamsulosin (FLOMAX) 0.4 mg extended release capsule Review of Systems Review of Systems Constitutional: [...] pain. Musculoskeletal: Positive for arthralgias (right knee pain). Negative for back pain, myalgias, neckpain and neck stiffness. Skin: Negative for rash. Allergic/Immunologic: Negative for immunocompromised state. Neurological: Positive for weakness (he reports right knee weakness). Negative for seizures, numbness and headaches. Hematological: Does not bruise/bleed easily. Psychiatric/Behavioral: Positive for sleep disturbance (chronic pain secondary to insomnia). The patient is not nervous/anxious. Physical Exam Vitals: 09/19/22 0939 BP: 124/91 BP Location: Left arm Patient Position: Sitting Pulse: 110 Resp: 21 SpO2: 92% Comment: on 3L of home O2 There is no height or weight on [...] Cognition and memory normal. Judgment: Judgment normal. Gait is antalgic he is using a walker today Toe Stand he is unable on the right, on the left is reduced Heel Stand is bilaterally reduced Low Back: Inspection is clean, dry, and intact. No lesions are noted. Palpation produces no pain Percussion produces no pain Lumbar Flexion 60 degrees produces no pain Extension 20 degrees produces no pain Right Lateral Flexion 20 degrees produces no pain Left Lateral Flexion 20 degrees produces no pain Lower Extremity: Motor bilaterally 5/5 equal and intact Sensory bilaterally equal and intact DTR's Patellar Right deferred testing due to pain Left 1/4 Achilles Right 0/4 Left 0/4 Straight leg Raise Right 70 degrees produces concordant knee pain DFF no change Left 70 degrees produces no pain DFF no change Gaenslen's Test Right negative produces concordant knee pain Left negative produces no pain FABERs Test Right negative produces concordant knee pain Left negative produces no pain Imaging: No recent imaging is available. Review of Data: Checked the [place] ICE BAG ASSEMBLER sheet and it was consistent with our meds. UDT results: A sample that was obtained at his last visit was appropriate and consistent for his prescriptions. The patient was given a prescription for intranasal Narcan for the management of opioid induced respiratory depression or excess sedation. I reviewed the [place] Prescription Monitoring Program printout and it was consistent and appropriate. The patient denies the use Tobacco former smoker The patient denies a diagnosis of hypertension. Based upon today's blood pressure reading he was encouraged to follow-up with primary care physician for further evaluation in management of his blood pressure. Assessment: Based on the history, and physical exam my impression is the patient has a primary diagnosis of chronic right knee pain, right knee osteoarthritis, insomnia secondary chronic pain, and long-term use of opiate analgesics. Based upon the fact that Mr. Mesa appears stable and satisfied with the [place] 5/325, I will provide him a refill and have him follow-up in 2 months time for a repeat evaluation. Mr. Mesa denies any questions to the above-mentioned plan and agrees. Problem List Mental Health superintendent terminal (current) use of opiate analgesic Musculoskeletal and Injuries Chronic pain of right knee - Primary Osteoarthritis of right knee Neuro Insomnia secondary to chronic pain Plan I will refill his [place] 5/325 and have him follow up in 2 months time for a repeat evaluation. Objective of opioid based therapy is to allow him to continue his activities of daily living with less suffering. Thank you for allowing me to participate in the care of this pleasant patient. Rosaline Rdz NP 09/19/2022 E INSURANCE AGENT documented in this encounter Plan of Treatment [...] Visit Diagnoses Diagnosis Chronic pain of right knee- Primary Osteoarthritis of right knee, unspecified osteoarthritis type Insomnia secondary to chronic pain superintendent terminal (current) use of opiate analgesic documented in this encounter Care Teams Clamshell Operator Relationship Specialty Start Date End Date Aristeo Khan MD [address] [place] [address] PCP - General 06/28/22 Ravi Queen MD [address] [facility] [address] [place] [address] [place] [id number] Anesthesiologist Pain Management 09/05/22 documented as of this encounter
--- OUTSIDE RECORDS SUMMARY | 2024-10-14 06:00 | XMS_ITS | Encounter Summary ---
Author Organization [facility] Healthcare Address [address] [place] [address] Care Team Providers Care Flask Fitter Name Role Phone Aristeo Khan MD Primary Care Provider Ravi Queen MD Unavailable [phone] Reason for Visit * Reason Comments Follow-up Pain Med Management Back Pain Joint Pain Encounter Details Date Type Department Care Team (Latest Contact Info) Description 08/01/2023 12:56 PM CDT - 08/01/2023 11:59 PM CDT Hospital Encounter [facility] 2 [facility] [address], 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 Gender Identity Not on file Sexual Orientation Not on file documented as of this encounter Last Filed Vital Signs Vital Sign Reading Time Taken Comments Blood Pressure 129/89 08/01/2023 1:20 PM CDT Pulse 96 08/01/2023 1:20 PM CDT Temperature - - Respiratory Rate 17 08/01/2023 1:20 PM CDT Oxygen Saturation 96% 08/01/2023 1:20 PM CDT Inhaled Oxygen Concentration - - Weight [...] day as needed for pain 120 tablet 08/05/2023 3 HYDROcodone-aceta minophen (NORCO) 5-325 mg per tabletIndications :Pain Take 1 tablet by mouth 4 (four) times a day as needed for pain 120 tablet 09/04/2023 4 documented as of this encounter Discharge Disposition Disposition Code Departure Means Destination Discharge to home or self care documented in this encounter Progress Notes * Christen Curiel BREASTFEEDING PROGRAM COORDINATOR - 08/01/2023 1:00 PM CDT Patient Name: Bentley Mesa : 1960 Today's Date: 08/01/2023 PCP: Aristeo Khan MD Referring: Kenney Holder, * Chief Complaint Patient presents with Follow-up Pain Med Management Back Pain Joint Pain HPI Bentley Mesa is a 63 y.o. year old male seen today for medication refill for low back and right knee pain. The location of pain is low back and right knee pain. Low back pain radiates to right hip. Current pain level:7 Best pain level:2 Worse pain level:10 Pain is described as constant burning and sharp pain. Muscle weakness: Denies Numbness and tingling: Right big toe Provocative factors include standing, walking, and therapy Relieving factors include heat, TENS, topicals, Lidocaine patches, Acetaminophen, and Branch. Modalities tried includes: Heat, Home exercise, TENS Medication tried includes: Acetaminophen (temporary relief), Lidocaine Patches (temporary relief), Prednisone (no relief), Ibuprofen (no relief), Aleve (no relief), Tramadol (no relief), Branch (temporary relief) Denies incontinence of bowel/ bladder, unintentional weight loss, fever/chills, or saddle anesthesia. Denies side effects from Branch(Constipation or significant sedation) 70% relief with Branch Sleep: Is not affected due to pain Anticoagulant therapy: Denies Antibiotics: Denies Diabetic: Denies Pain Score: 7 Pain Radiating Towards: right hip Pain Descriptors: Burning;Sharp Pain Frequency: Constant/continuous Pain Onset: Ongoing Clinical Progression: Not changed Effect of Pain on Daily Activities: pt requires assistance from a personal shopper and his Allergies Allergen Reactions Oxycodone Hives and Itching Past Medical History: Diagnosis Date Chronic pain disorder Emphysema of lung (HCC) Glaucoma Knee pain, right Low back pain History reviewed. No pertinent surgical history. Social [...] fluticasone propionate (FLONASE) 50 mcg/actuation nasal spray jyjgtqtjuuw-rejyriihy-wfcenihw (Lonhala Magnair Starter) 25 mcg/mL solution for nebulization HYDROcodone-acetaminophen (NORCO) 5-325 mg per tablet HYDROcodone-acetaminophen (NORCO) 5-325 mg per tablet ipratropium (ATROVENT HFA) 17 mcg/actuation inhaler latanoprost (XALATAN) 0.005 % ophthalmic solution naloxone (NARCAN) 4 mg/actuation spray,non-aerosol omeprazole (PriLOSEC) 20 mg capsule predniSONE (DELTASONE) 10 mg tablet promethazine-DM (PROMETHAZINE-DM) 1.25-3 mg/mL syrup raNITIdine (ZANTAC) 150 mg tablet HYDROcodone-acetaminophen (NORCO) 5-325 mg per tablet HYDROcodone-acetaminophen (NORCO) 5-325 mg per tablet naloxone (NARCAN) 4 mg/actuation spray,non-aerosol Review of Systems Review of Systems Constitutional: Negative for activity change and fatigue. HENT: Negative for congestion, ear pain, sinus pressure, sinus pain and trouble swallowing. Eyes: Negative for pain. Respiratory: Negative for shortness of breath and wheezing. He wears home O2 at 3 [...] for immunocompromised state. Neurological: Positive for weakness (right knee weakness) and numbness (right thigh numbnessf). Negative for seizures and headaches. Hematological: Does not bruise/bleed easily. Psychiatric/Behavioral: Positive for sleep disturbance. Negative for suicidal ideas. The patient isnot nervous/anxious. Physical Exam Vitals: 08/01/23 1320 BP: 129/89 BP Location: Right arm Patient Position: Sitting Pulse: 96 Resp: 17 SpO2: 96% There is no height or weight on file to calculate BMI. Physical Exam Vitals and nursing note reviewed. Constitutional: General: He is awake. Appearance: Normal appearance. He is well-developed and well-groomed. HENT: Head: Normocephalic and atraumatic. Nose: Nose normal. Eyes: Pupils: Pupils are equal, round, and reactive to light. Neck: Trachea: No tracheal deviation. Cardiovascular: Rate and Rhythm: Normal rate. Pulmonary: Effort: Pulmonary effort is normal. Musculoskeletal: Cervical back: Normal range of motion and [...] lesions are noted. Palpation produces no pain Lumbar Flexion 60 degrees produces no pain Extension 20 degrees produces no pain Right Lateral Flexion 20 degrees produces no pain Left Lateral Flexion 20 degrees produces no pain Lower Extremity: Motor bilaterally 5/5 equal and intact Sensory bilaterally equal and intact Straight leg Raise Right 70 degrees produces knee pain Left 70 degrees produces no pain Gaenslen's Test Right negative produces no pain Left negative produces no pain FABERs Test Right negative produces no pain Left negative produces no pain Imaging: No recent imaging is available. Review of Data: Checked the [place] APPLICATION TRAINER sheet and it was consistent with our meds. UDT results: 02/28/23, consistent Morphine Milligram Equivalents (MME): 20 Clinical evaluation forms were reviewed including the PEG Scale Assessing Pain intensity and interference with score of 8.33 Current Opioid Misuse Measure (COMM) reviewed with score of 4 Patient Health Questionnaire (PHQ9) 0 Oswestry Low Back Disability Questionnaire reviewed with score of 27/50 The patient has a prescription for intranasal Narcan for the management of opioid induced respiratory depression or excess sedation. Pre-hypertension/hypertension: Patient has been diagnosed with hypertension. Treated and blood pressure elevated. I recommend that the patient call primary care provider or physician of choice this week to arrange a follow up for further evaluation. I have also recommended that they try reducing sodium intake and exercise for management. Tobacco Screening: screened for tobacco use. Patient is not a tobacco user. Tobacco counseling is not applicable. 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 year old male seen today for medication refill for low back and right knee pain. The location of pain is low back and right knee pain. Low back pain radiates to right hip. Based on the history, and physical exam my impression is the patient has a primary diagnosis of chronic right knee pain, right knee osteoarthritis, lumbar radicular pain, and long-term use of opiate analgesics. Branch provides 70% pain relief and allows him to cook and complete daily task withless suffering. No s/s of aberrant behavior. Back pain has been present for years, it does radiate down the right hip and I feel MRI would be beneficial, however, with his breathing and dependent on oxygen will get X-Rays. Has never been to physical therapy for low back, agreeable for physical therapy. If pain does not improve with physical therapy, he would like to consider interventional treatment for more durable pain control. Denies questions and agrees to the mentioned above plan of care. In the past, patients have tried and failed at least 3 months or more of conservative measures includ ing activity modification, home exercise, rest, physical therapy for knee, and OTC home medications. I will refill Branch 5-325 mg every 6 hours as needed. Narcan prescribed. PT for low back pain. Order for lumbar X-Ray. Will see back in 2 months for repeat evaluation. Goals of Treatment: Treat underling pathology, improve pain, improve function, and quality of life with less suffering. Use of Medication: The pain management contract has been previously reviewed. Questions solicited and answered, and the patient endorses a clear understanding. The patient understands random toxicology screening and prescription drug monitoring will be used. Instructed to take the smallest effective dose of opioid medication. Risk/side effects of opioid medications, if utilizing, have been reviewed including drowsiness, tolerance, addiction, abuse, constipation, nausea, vomiting, itching, dizziness, allergic reaction, respiratory depression, lack of benefit, endocrine abnormalities, low testos terone, sexual dysfunction, or . If utilizing, risk-side effects of NSAID'S and potential for gastrointestinal bleeding, gastritis/esophagitis, and increased cardiac risk reviewed. Risk/side effects of Gabapentin, Lyrica, and other potential sedative medication, if utilizing, have been reviewed including drowsiness, sedation, dizziness, fluid retention, weight gain, respiratory depression, and . If utilizing medications, the patient has been instructed to take every medication appropriately, storing and disposing properly. Endorses clear understanding not to share or borrow medication and only to take current prescribed medication. The patient has been instructed on opioid medication, including but not limited to do not combine with other medications such as benzodiazepines, alcohol, muscle relaxers, or other depressant medications. Patient instructed to avoid driving and operating heavy machinery. UDS screens will be performed to assess for medication, metabolites, other medications, and illicit substances. Results may be discussed at the next visit. IChristen, have personally performed the services described in the documentation, and it accurately and completely records my words and actions though there are potential variances in recording and manager of exhibitions and collections. Dictated not proofread. This note is prepared by Christen Curiel NP 08/01/2023 documented in this encounter Plan of Treatment Not on file documented as of this encounter Goals Goal Patient Goal Type Associated Problems Recent Progress Patient-Stated? Author [facility] On track( 023 1:36 PM CDT) Esperanza Dobson, RN Note: Patient will establish a comfort-function goal and identify the pain level that will allow the patient to perform desired activities and achieve an acceptable quality of life. 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
--- OUTSIDE RECORDS SUMMARY | 2024-10-14 06:00 | XMS_ITS | Encounter Summary ---
Author Organization [facility] Address [address] [place] [address] Care Team Providers Care Lan Manager Name Role Phone Bentley Kyle MD Primary Care Provider [phone] Reason for Visit * Reason Onset Date Comments Information 01/26/2022 Encounter Details Date Type Department Care Team (Late st Contact Info) Description 01/26/2022 Telephone [facility] Pulmonology [facility] [address] [place] [address] Carson Pineda MD [address] [place] [address] Information Social History Tobacco Use Types Packs/Day Years Used Date Smoking Tobacco: Never Smokeless Tobacco: Never Sex and Gender Information Value Date Recorded Sex Assigned at Not on file Gender Identity Not on file Sexual Orientation Not on file documented as of this encounter Miscellaneous Notes * Telephone Encounter - Carson Pineda MD - 01/29/2022 9:43 AM CDT Already done * Telephone Encounter - Kiki Posada RN - 01/26/2022 5:34 PM CDT 01/25/22. Edna from java front end web developer received a call from [facility] wanting information about pt Spriation endobronchial valve. Pt is going to have MRI and information is needed. documented in this encounter Plan of Treatment Not on file documented as of this encounter Visit Diagnoses Not on filedocumented in this encounter Care Teams Lan Manager Relationship Specialty Start Date End Date Bentley Kyle MD [address] [address] PCP - General Internal Medicine 04/18/21 documented as of this encounter
--- OUTSIDE RECORDS SUMMARY | 2024-10-14 06:00 | XMS_ITS | Encounter Summary ---
Author Organization [facility] Address [address] [place] [address] Care Team Providers Care Honey Producer Name Role Phone Bentley Kyle MD Primary Care Provider [phone] Reason for Visit * Reason Onset Date Comments Medical Records 12/15/2020 Encounter Details Date Type Department Care Team (Late st Contact Info) Description 12/15/2020 Telephone [facility] Pulmonology [facility] [address] [place] [address] Carson Pineda MD [address] [place] [address] Medical Records Social History Tobacco Use Types Packs/Day Years [...] have Coronavirus / COVID-19? No / Unsure 05/23/2021 2:50 PM CDT documented as of this encounter Miscellaneous Notes * Telephone Encounter - Eliz Alcala RN - 12/15/2020 9:41 AM GEAR SHAPER Pt's records from PCP office scanned under media in pt's chart. SHAPER documented in this encounter Plan of Treatment Not on file documented as of this encounter Visit Diagnoses Not on filedocumented in this encounter Care Teams Honey Producer Relationship Specialty Start Date End Date Bentley Kyle MD [address] [address] PCP - General Internal Medicine 04/18/21 documented as of this encounter
--- OUTSIDE RECORDS SUMMARY | 2024-10-14 06:00 | XMS_ITS | Encounter Summary ---
Author Organization [facility] Address [address] [place] [address] Care Team Providers Care Storekeeper Engineering Name Role Phone Unavailable Primary Care Provider Unavailabl e Reason for Referral * CT Scan (Routine) - Closed Specialty Diagnoses / Procedures Referred By Emmie gomez Referred To Contact Radiology Diagnoses Centrilobular emphysema Procedures CT CHEST HIGH RESOLUTION Marlyn Pineda MD [address] [facility] [address] [place] [address] [facility] Ct Scan [address] [place] [address] Referral ID Status Reason Start Date Expiration Date Visits Re quested Visits Authorized [id number] Closed 02/13/2021 03/15/2021 1 1 * Outpatient Services (Routine) - Closed Specialty Diagnoses / Procedures Referred By Emmie gomez Referred To Contact Respiratory Therapy Diagnoses Chronic obstructive pulmonary disease, unspecified COPD type Procedures PULSE OXIMETRY, WITH EXERCISE Marlyn Pineda MD [address] [facility] [address] [place] [address] St Pulmonary Function [place] A [address] [place] [address] Referral ID Status Reason Start Date Expiration Date Visits Re quested Visits Authorized [id number] Closed 01/30/2021 03/02/2022 1 1 * Outpatient Services (Routine) - Closed Specialty Diagnoses / Procedures Referred By Emmie t Referred To Contact Respiratory Therapy Diagnoses Chronic obstructive pulmonary disease, unspecified COPD type Procedures PULMONARY FUNCTION TEST Marlyn Pineda MD [address] [facility] [address] [place] [address] [facility] Pulmonary Function [place] A [address] [facility] [address] [place] [address] Referral ID Status Reason Start Date Expiration Date Visits Re quested Visits Authorized [id number] Closed 01/30/2021 03/02/2022 1 1 Reason for Visit * Reason Onset Date Comments Needs Orders Written 01/30/2021 Encounter Details Date Type Department Care Team (Late st Contact Info) Description 01/30/2021 Telephone [facility] Pulmonology [facility] [address] [place] [address] Marlyn Pineda MD [address] [place] [address] Needs Orders Written Social History Tobacco Use Types Packs/Day Years Used Date Smoking Tobacco: Never Smokeless Tobacco: Never Sex and Gender Information Value Date Recorded Sex Assigned at Not on file Gender Identity Not on file Sexual Orientation Not on file documented as of this encounter Miscellaneous Notes * Telephone Encounter - Kiki Posada RN - 01/30/2021 9:35 AM CDT Spoke to pt and his to advise. * Telephone Encounter - Marlyn Pineda MD - 01/30/2021 8:22 AM CDT Please inform patient that I reviewed some of his medical records. He needs to have a high-resolution noncontrast chest CT and follow-up pulmonary function testing performed here at [facility] before further decisions can be arrived at regarding his candidacy for endobronchial valve placement. documented in this encounter Plan of Treatment Not on file documented as of this encounter Results * PULSE OXIMETRY, WITH EXERCISE (02/22/2021 2:36 PM CDT) 02/22/2021 2:36 PM CDT Narrative INTERFACE SYSTEM - 02/23/2021 10:44 PM CDT ? Scanned PFT ? [facility] ? Test Date: ?02/22/2021 2:36 PM Pat Name: ? BENTLEY MESA ?Department: ?Room: ? Gender: ? M ?Stripper And Printer: ?? : ?1960 ? Requested By: MARLYN Medrano Order Number: [id number] ?Lionel ROBERTS: ?? Marlyn Pineda Interpretive Statements ? INTERPRETIVE STATEMENTS: At baseline, patient demonstrated an SpO2 of 98% on Room Air. ??The patient walked a distance of 122 meters over approximately 6 minutes, after which the SpO2 was 93% on Room Air. IMPRESSION: 6-minute walk distance of 122 m with evidence of mild exertional desaturation not necessitating supplemental oxygen. Electronically Signed On 02-23-2021 22:44:33 CDT by Marlyn Pineda Procedure Note Provider, Historical - 02/23/2021 Scanned PFT [facility] Test Date: 02/22/2021 2:36 PM Pat Name: BENTLEY MESA Department: Room: Gender: M Stripper And Printer: : 1960 Requested By: MARLYN Medrano Order Number: [id number] Reading MD: Marlyn Pineda Interpretive Statements INTERPRETIVE STATEMENTS: At baseline, patient demonstrated an SpO2 of 98% on Room Air. Thepatient walked a distance of 122 meters over approximately 6 minutes, after whichthe SpO2 was 93% on Room Air. IMPRESSION: 6-minute walk distance of 122 m with evidence of mild exertionaldesaturation not necessitating supplemental oxygen. Electronically Signed On 02-23-2021 22:44:33 CDT by Marlyn Pineda Marlyn Pineda MD PFT ORDERABLES INTERFACE SYSTEM Refer to clinic/hospital department * CT CHEST HIGH RESOLUTION (02/22/2021 12:29 PM CDT) Anatomical Region Laterality Modality Chest Computed Tomogra phy 02/22/2021 12:5 2 PM CDT Impressions 02/22/2021 12:52 PM CDT IMPRESSION: 1. Moderate centrilobular and paraseptal emphysema. 2. Indeterminate nodular thickening along linear scarring in the posterior segment of the right upper lobe measuring up to 8 mm. Comparison to prior outside imaging to document stability or short interval follow-up in three months is recommended. DICTATION LOCATION: Location 1 [facility] 02/22/2021 12:52 PM CDT EXAMINATION: CT CHEST HIGH RESOLUTION HISTORY: Emphysema TECHNIQUE: Computed tomography of the chest was performed without contrast according to a high resolution protocol. The examination was performed with the adjustment of mA according to the patient size and/or the use of Iterative Reconstruction Technique. COMPARISON: None available. FINDINGS: Evaluation is degraded by respiratory motion artifact in areas. Lungs are hyperinflated. Moderate centrilobular and paraseptal emphysema with right greater than left upper lung predominant scarring. Somewhat nodular portion of linear scarring in the posterior segment of the right upper lobe measuring up to 8 mm in thickness is indeterminate. Calcified granulomas in the superior segment of the right lower lobe. There is no reticulation, honeycombing, or air trapping. Mild bronchial wall thickening without bronchiectasis. Visualized thyroid is normal. Left-sided aortic arch is normal in caliber. The heart size is within normal limits. Qualitatively mild coronary atherosclerotic calcification. Trachea is increased in AP diameter. Visualized intra-abdominal organs are within normal limits. No suspicious lytic or blastic lesions are identified. Procedure Note Bentley Hampton MD - 02/22/2021 EXAMINATION: CT CHEST HIGH RESOLUTION HISTORY: Emphysema TECHNIQUE: Computed tomography of the chest was performed without contrast according to a high resolution protocol. The examination was performed with the adjustment of mA according to the patient size and/or the use of Iterative Reconstruction Technique. COMPARISON: None available. FINDINGS: Evaluation is degraded by respiratory motion artifact in areas. Lungs are hyperinflated. Moderate centrilobular and paraseptal emphysema with right greater than left upper lung predominant scarring. Somewhat nodular portion of linear scarring in the posterior segment of the right upper lobe measuring up to 8 mm in thickness is indeterminate. Calcified granulomas in the superior segment of the right lower lobe. There is no reticulation, honeycombing, or air trapping. Mild bronchial wall thickening without bronchiectasis. Visualized thyroid is normal. Left-sided aortic arch is normal in caliber. The heart size is within normal limits. Qualitatively mild coronary atherosclerotic calcification. Trachea is increased in AP diameter. Visualized intra-abdominal organs are within normal limits. No suspicious lytic or blastic lesions are identified. IMPRESSION: 1. Moderate centrilobular and paraseptal emphysema. 2. Indeterminate nodular thickening along linear scarring in the posterior segment of the right upper lobe measuring up to 8 mm. Comparison to prior outside imaging to document stability or short interval follow-up in three months is recommended. DICTATION LOCATION: Location 1 - [facility] Marlyn Pineda MD CT ORDERABLES * PULMONARY FUNCTION TEST (02/22/2021 10:25 AM CDT) 02/22/2021 10:2 5 AM CDT Narrative INTERFACE SYSTEM - 02/23/2021 10:42 PM CDT ?Pulmonary Function Report ? [facility] ? Test Date: ?02/22/2021 10:25 AM Pat Name: ? BENTLEY MESA ?Department: ?Room: ? Gender: ? M ?Stripper And Printer: ?? : ?1960 ? Requested By: MARLYN Medrano Order Number: [id number] ?Reading MD: ?? Marlyn Pineda Interpretive Statements [...] - 02/23/2021 Pulmonary Function Report [facility] Test Date: 02/22/2021 10:25 AM Pat Name: BENTLEY MESA Department: Room: Gender: Stripper And Printer: : 1960 Requested By: MARLYN Medrano Order Number: [id number] Reading MD: Marlyn Pineda Interpretive Statements The [...] On 02-23-2021 22:42:00 CDT by Marlyn Pineda Marlyn Pineda MD PFT ORDERABLES INTERFACE SYSTEM Refer to clinic/hospital department documented in this encounter Visit Diagnoses Diagnosis Chronic obstructive pulmonary disease, unspecified COPD type- Primary Centrilobular emphysema Other emphysema Chronic obstructive pulmonary disease, unspecified COPD type Chronic obstructive pulmonary disease, unspecified COPD type Centrilobular emphysema Other emphysema documented in this encounter
--- OUTSIDE RECORDS SUMMARY | 2024-10-14 06:00 | XMS_ITS | Referral Summary ---
Author Organization [facility] [address] [place] Address [address] [place] [address] Care Team Providers Care Associate Dean Name Role Phone Aristeo Khan MD Primary Care Provider [phone] Ravi Queen MD Unavailable [phone] Encounters Date Type Department Care Team Description 09/09/2024 Documentation [facility] A, Shay. 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 [address] [place] [address] Kenney Holder MD [facility] (current) use of opiate analgesic (Primary Dx); Chronic pain of right knee Discharge Disposition: Discharge to home or self care from Last 3 Months Allergies Active Allergy Reactions Criticality Noted Date Comments Oxycodone Hives,Itching High 05/08/2017 Medications ipratropium (ATROVENT HFA) 17 mcg/actuation inhaler Inhale 1 vial every 6 (six) hours Active raNITIdine (ZANTAC) 150 mg tablet Take 1 tablet (150 mg total) by mouth 7 Active predniSONE (DELTASONE) 10 mg tablet TAKE ONE TABLET DAILY WITH A MEAL FOR 30 DAYS 5 9 Active promethazine-DM (PROMETHAZINE-DM ) 1.25-3 mg/mL syrup TAKE ONE TEASPOONFUL 4 TIMES DAILY NEEDED FOR COUGH 13 9 Active albuterol HFA (PROVENTIL HFA,VENTOLIN HFA,PROAIR HFA) 90 mcg/actuation inhaler Ventolin HFA 90 mcg/actuation aerosol inhaler Active albuterol 2.5 mg /3 mL (0.083 %) nebulizer solution 2 Active Daliresp 500 mcg tablet 2 Active aspirin 81 mg enteric coated tablet daily Active bromfenac (Prolensa) 0.07 % drops Prolensa 0.07 % eye drops Active fluticasone propionate (FLONASE) 50 mcg/actuation nasal spray fluticasone propionate 50 mcg/actuation nasal spray,suspension Active glycopyrrol-nebu lizer-accessor (Lonhala Magnair Starter) 25 mcg/mL solution for nebulization Lonhala Magnair Refill 25 mcg/mL solution for nebulization INHALE 1 ML EVERY DAY IN THE MORNING AND IN THE EVENING ADMINISTER AT THE SAME TIME(S) EACH DAY Active omeprazole (PriLOSEC) 20 mg capsule TAKE ONE (1) CAPSULE BY MOUTH EVERY DAY Active latanoprost (XALATAN) 0.005 % ophthalmic solution Administer into both eyes nightly Active naloxone (NARCAN) 4 mg/actuation spray,non-aeroso l Administer 1 spray into affected nostril(s) as needed for opioid reversal 1 each 3 Active HYDROcodone-acet aminophen (NORCO) 5-325 mg per tabletIndication s:Pain Take 1 tablet by mouth 4 (four) times a day as needed for pain 120 tablet 4 Active HYDROcodone-acet aminophen (NORCO) 5-325 mg per tabletIndication s:Pain Take 1 tablet by mouth 4 (four) times a day as needed for pain 120 tablet 4 025 Active HYDROcodone-acet aminophen (NORCO) 5-325 mg per tabletIndication s:Pain Take 1 tablet by mouth 4 (four) times a day as needed for pain 120 tablet 5 025 Active Active Problems Problem Noted Date Diagnosed Date Lumbar radicular pain 08/01/2023 Chronic right-sided low back pain 08/01/2023 Osteoarthritis of right knee 06/28/2022 Insomnia secondary to chronic pain 06/28/2022 [facility] (current) use of opiate analgesic 06/14 Resolved Problems Problem Noted Date Diagnosed Date Resolved Date Chronic pain of right knee 06/28/2022 0 11/13/2023 Social History Tobacco Use Types Packs/Day Years Used Date Smoking Tobacco: Former Smokeless Tobacco: Former Tobacco Cessation:Counseling Given: Not Answered PHQ-2 Answer Date Recorded PHQ-2 Total Score (If total score is 3 or more points, staff should administer the PHQ-9) 0 09/01/2024 Sex and Gender Information Value Date Recorded Sex Assigned at Not on file Legal Sex Male 8:01 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 Gender Identity Not on file Sexual Orientation Not on file Last Filed Vital Signs Vital Sign Reading Time Taken Comments Blood Pressure 142/82 09/01/2024 9:08 AM WAREHOUSE ASSEMBLY WORKER Pulse 85 09/01/2024 9:08 AM WAREHOUSE ASSEMBLY WORKER Temperature 36.9 ??C (98.5 ??F) 04/02/2024 12:40 PM C DT Respiratory Rate 22 09/01/2024 9:08 AM WAREHOUSE ASSEMBLY WORKER Oxygen Saturation 95% 09/01/2024 9:08 AM WAREHOUSE ASSEMBLY WORKER Inhaled Oxygen Concentration - - Weight 111.1 kg (245 lb) 04/24/2019 10:20 AM CDT Height 172.7 cm (5' 8 ) 04/24/2019 10:20 AM CDT Body Mass Index 37.25 04/24/2019 10:20 AM CDT Plan of Treatment Not on file Goals Goal Patient Goal Type Associated Problems Recent Progress Patient-Stated? Author BH-Pain Behavioral Health On track( 023 1:36 PM CDT) Esperanza Dobson, RN Note: Patient will establish a comfort-function goal and identify the pain level that will allow the patient to perform desired activities and achieve an acceptable quality of life. Procedures Procedure Name Priority Date/Time Associated Diagnosis Comments PSA SCREEN Routine 09/27/2022 10:21 AM WAREHOUSE ASSEMBLY WORKER from Last 3 Months or Most Recently Relevant to Health Maintenance Results * PSA screen (09/27/2022 10:21 AM WAREHOUSE ASSEMBLY WORKER) PSA-Total 0.70 <=5.40 ng/mL [facility] Comment: Interpretive Data ?AGE ? SEX ?REFERENCE INTERVAL 0 minutes-150 years ?Female ?None 0 minutes-49 years ? Male ?None ? 50-59 years ? Male ?0-3.90 ? 60-69 years ? Male ?0-5.40 ? 70-79 years ? Male ?0-6.20 ? 80-150 years ?Male ?0-6.20 The Marcel[employer] PSA Total assay procedure was used. Results from different manufacturers or methods may not be comparable. Serial testing should be performed using the same method. Current interpretive data last revised 22. Blood 09/27/2022 10:2 1 AM WAREHOUSE ASSEMBLY WORKER 09/27/2022 10:44 AM WAREHOUSE ASSEMBLY WORKER us Aristeo Khan MD LAB BLOOD ORDERABLES Final Result Performing Organization Address City/State/[facility] Co de Phone Number TAL[facility] [phone] [facility] [place] [address] from Last 3 Months or Most Recently Relevant to Health Maintenance Insurance MEDICARE [employer] MEDICARE [facility] PL[facility] [employer] MEDICARE [facility] Address: [address] [address] [place] [address] [employer] MEDICARE [facility] MEDICARE Address: [address] [address] [place] [address] Care Teams Associate Dean Relationship Specialty Start Date End Date Aristeo Khan MD [address] [place] [address] PCP - General 06/28/22 Ravi Queen MD [address] [place] [address] [place] [address] Anesthesiologist Pain Management 09/05/22
--- OUTSIDE RECORDS SUMMARY | 2024-10-14 06:00 | XMS_ITS | Encounter Summary ---
Author Organization [facility] Address [address] [place] [address] Care Team Providers Care Computer Aided Drafter Name Role Phone Bentley Kyle MD Primary Care Provider [phone] Reason for Visit * Reason Onset Date Comments Procedure 04/14/2021 Encounter Details Date Type Department Care Team (Late st Contact Info) Description 04/14/2021 Telephone [facility] Pulmonology [facility] [address] [place] [address] Carson Pineda MD [address] [place] [address] Procedure Social History Tobacco Use Types Packs/Day Years [...] Telephone Encounter - Carson Pineda MD - 04/14/2021 12:34 PM CDT Please call patient and schedule a bronchoscopy with Spiration endobronchial valve placement (in the bronchoscopy room) on 04/18/21 at 8:30 AM. N.p.o. from midnight on day of procedure including all medications except for inhalers which may be used at any time documented in this encounter Plan of Treatment Not on file documented as of this encounter Visit Diagnoses Not on filedocumented in this encounter Care Teams Computer Aided Drafter Relationship Specialty Start Date End Date Bentley Kyle MD [address] [place] [address] PCP - General Internal Medicine 04/18/21 documented as of this encounter
--- OUTSIDE RECORDS SUMMARY | 2024-10-14 06:00 | XMS_ITS | Encounter Summary ---
Author Organization [facility] Address [address] [place] [address] Care Team Providers Care Behavior Clinician Name Role Phone Bentley Kyle MD Primary Care Provider [phone] Reason for Visit * Reason Onset Date Comments Results 04/04/2021 Encounter Details Date Type Department Care Team (Late st Contact Info) Description 04/04/2021 Telephone [facility] Pulmonology [facility] [address] [facility] [address] [place] [address] Carson Pineda MD [address] [place] [address] Results Social History Tobacco Use Types Packs/Day Years [...] Telephone Encounter - Carson Pineda MD - 04/04/2021 9:48 AM CDT Called and discussed with patient, bronchoscopic results demonstrate inflammation without evidence of malignancy in the right upper lobe nodule. Tessy, could you please have this patient come in anytime and sign the [employer] form for obtaining insurance coverage approval for the purpose of endobronchial valve placement for emphysema ? documented in this encounter Plan of Treatment Not on file documented as of this encounter Visit Diagnoses Not on filedocumented in this encounter Care Teams Behavior Clinician Relationship Specialty Start Date End Date Bentley Kyle MD [address] [facility] [address] [place] [address] PCP - General Internal Medicine 04/18/21 documented as of this encounter
--- OUTSIDE RECORDS SUMMARY | 2024-10-14 06:00 | XMS_ITS | Encounter Summary ---
Author Organization [facility] Address [address] [place] [address] Care Team Providers Care Automation Control Integrator Name Role Phone Unavailable Primary Care Provider Unavailabl e Reason for Visit * Auth/Cert Specialty Diagnoses / Procedures Referred By Emmie t Referred To Contact Cardiology [facility] Interventional Care Unit [address] [place] [address] Referral ID Status Reason Start Date Expiration Date Visits Re quested Visits Authorized [id number] 1 1 Encounter Details Date Type Department Care Team (Latest Contact Info) Description 03/23/2021 8:59 AM CDT - 03/23/2021 5:00 PM CDT Hospital Encounter [facility] Interventional Care [address] [place] [address] Carson Pineda MD [address] [place] [address] Lung nodule Discharge Disposition: Home or Self Care Social [...] have Coronavirus / COVID-19? No / Unsure 03/23/2021 8:54 AM CDT documented as of this encounter Last Filed Vital Signs Vital Sign Reading Time Taken Comments Blood Pressure 104/68 03/23/2021 4:00 PM CDT Pulse 106 03/23/2021 3:10 PM CDT Temperature - - Respiratory Rate 18 03/23/2021 4:30 PM CDT Oxygen Saturation 94% 03/23/2021 4:36 PM CDT Inhaled Oxygen Concentration - - Weight - - Height - - Body Mass Index - - documented in this encounter Discharge Instructions * Discharge Instructions* Kavitha Stock RN - 03/23/2021 4:37 PM CDT PATIENT INSTRUCTIONS The medication used to sedate you will remain in your system for the next 24 hours; during this time you may feel drowsy. During the next 24 hours: ?? Have a responsible adult drive you home and supervise you ?? Do not drive a car or operate machinery ?? Do not consume alcohol or sedating substances (unless prescribed by your physician) ?? Do not make important decisions or sign legal documents * Attachments The following attachments cannot be sent through Care Everywhere. * Bronchoscopy: Post-op ([place]) documented in this encounter Medications at Time of Discharge Medication Sig Dispensed Refills Start Date End Date tamsulosin (FLOMAX) 0.4 mg capsule Take 0.4 mg by mouth daily. promethazine (PHENERGAN) 12.5 mg Tablet Take 12.5 mg by mouth every 6 hours as needed for Nausea/Emesis. dextromethorphan-guaiFE Nesin (MUCINEX DM) 30-600 mg Tablet Sustained Release 12HR Take 1 Tablet by mouth every 12 hours. predniSONE (DELTASONE) 10 mg tablet Take 10 mg by mouth daily. ALPRAZolam (XANAX) 0.5 mg tablet Take 0.5 mg by mouth 3 times daily as needed for Anxiety. roflumilast (DALIRESP) 500 mcg Tablet Take 1 [...] only. 04/20/2021 documented as of this encounter Progress Notes * Mary Marshall RN - 03/23/2021 2:34 PM CDT Bronch procedures Bronchoscopy was performed with:Dr Pineda Scope::Olympus OT2 was used. Bronch Personnel Present::Damon Lerma RN, Brinda Marshall RN Fentanyl:550mcg and Versed:22mg documented in this encounter H&P Notes * Carson Pineda MD - 03/23/2021 12:53 PM CDT Pre-Procedure Assessment 03/23/2021 12:53 PM Patient Name: Bentley Mesa 1960 Primary Care Physician: No primary care provider on file. Date of Service: 03/23/2021 Procedure Name: Bronchoscopy with/without biopsy Past Medical History: Diagnosis Date ??? Community acquired pneumonia ??? Emphysema of lung Past Surgical History: Procedure Laterality Date ??? BRONCHOSCOPY Social History Socioeconomic History ??? Marital status: [...] Social Determinants of Health Financial Resource Strain: ??? Difficulty of Paying Living Expenses: Food Insecurity: ??? Worried About Running Out of Food in the Last Year: ??? Ran Out of Food in the Last Year: Transportation Needs: ??? Lack of Transportation (Medical): ??? Lack of Transportation (Non-Medical): Physical Activity: ??? Days of Exercise per Week: ??? Minutes of Exercise per Session: Stress: ??? Feeling of Stress : Social Connections: ??? Frequency of Communication with Friends and Family: ??? Frequency of Social Gatherings with Friends and Family: ??? Attends [employer] Services: ??? Active Member of Clubs or Organizations: ??? Attends Club or Organization Meetings: ??? Marital Status: Intimate Partner Violence: ??? Fear of Current or Ex-Partner: ??? Emotionally Abused: ??? Physically Abused: ??? Sexually Abused: Current Medications: Current Facility-Administered Medications Medication Dose Route Frequency Provider Last Rate Last Admin ??? FENTANYL (PF) 50 MCG/ML INJECTION SOLUTION (CABINET OVERRIDE) ??? BENZOCAINE 20 % MUCOSAL SPRAY (CABINET OVERRIDE) ??? MIDAZOLAM (PF) 1 MG/ML INJECTION SOLUTION (CABINET OVERRIDE) ??? LIDOCAINE HCL 20 MG/ML (2 %) INJECTION SOLUTION (CABINET OVERRIDE) Medication Allergies: Allergies Allergen Reactions ??? Oxycodone Hives BP (!) 124/94 (BP Location: Left arm) Pulse 90 General: Alert and stable, appears in no acute distress. HEENT: Normocephalic and atraumatic. Oropharynx is normal. Mallampatti Class 3 Neck: Supple, trachea midline, no adenopathy, thyroid normal. No jugular venous distension. Lungs: Bilateral equal and clear breath sounds to auscultation. No crackles or wheeze. Heart: Heart sounds are normal and regular. No audible murmurs. Extremities: No cyanosis, clubbing or edema Neurologic: Non focal. Assessment: ASA Class 3 Carson Pineda MD Pulmonary, Critical Care, Neurocritical Care & Sleep Medicine [facility], [place] [address] Off: [phone] Pager: [phone] documented in this encounter Procedure Notes * Carson Pineda MD - 03/23/2021 5:58 PM CDTAssociated Order(s): PROCEDURE REPORT [facility] Pulmonology Patient Name: Bentley Mesa Procedure Date: 03/23/2021 Date of : 1960 Admit Type: Outpatient Attending MD: Carson Pineda MD Procedure: Bronchoscopy Indications: Right upper lobe nodule, Severe emphysema for evaluation of bronchoscopic lung volume reduction using balloon occlusion Providers: Carson Pineda MD (Doctor) Referring MD: Requesting Physician: Medicines: Midazolam 22 mg IV, Fentanyl 550 mcg IV Complications: No immediate complications Procedure: Informed consent was obtained for the procedure, including sedation. Risks of hypoxia, dental injury, lung injury/perforation, hemorrhage, infection, arrhythmia, and adverse drug reaction were discussed. A time-out process was performed and verified patient identification, procedure, correct patient position, as well as special equipment available. The patient was brought to the bronchoscopy suite. 2% lidocaine was used for topical anesthesia of the tracheobronchial tree. Oxygen saturation and vital signs were monitored continuously. The bronchoscope was introduced through the mouth, via the endotracheal tube (the patient was intubated for the procedure) and advanced to the tracheobronchial tree. The procedure was accomplished without difficulty. The patient tolerated the procedure fairly well. Moderate sedation start time: 12.57 pm Moderate sedation end time: 2.20 pm Findings: The travon itself was sharp with no mucosal abnormalities. First, the right bronchial tree was comprehensively inspected to the subsegmental level; the left bronchial tree was likewise comprehensively inspected and revealed no visible endobronchial lesions or mucosal abnormalities. A 169 cm 2.7 mm Chartis balloon catheter was introduced into the left upper lobe under direct visualization and balloon inflation was performed with resultant complete occlusion of the left upper lobe bronchus as observed by mucosal blanching. Next, a Chartis flow assessment maneuver was initiated using real-time visualization of decremental flow in the left upper lobe until a value of zero (no-flow) was achieved, which was indicative of absent collateral ventilation. In similar fashion, an additional two separate Chartis flow assessments were performed in the right upper lobe and right lower lobe, both of which demonstrated decremental flow up to a value of zero consistent with the absence of collateral ventilation. Using a predetermined target point corresponding to the right upper lobe lung nodule, navigational bronchoscopy was performed using the Health Data Minder system with passage of a steerable flexible catheter to a point proximal to the lesion under fluoroscopic guidance. A radial ultrasound probe was inserted through the indwelling catheter and revealed a small area of abnormal echogenicity. The probe was withdrawn and a bronchoalveolar lavage, brushings and multiple needle aspirates as well as transbronchial biopsies were performed under fluoroscopic guidance. Thereafter, the entire bronchoscope was withdrawn without incident. Specimens: 1.Bronchoalveolar lavage from the RUL 2.Fine needle aspirates from the RUL 3.Cytology brushings from the RUL 4.Transbronchial biopsies from the RUL Impression: - Right upper lobe nodule - Severe emphysema without significant collateral ventilation as demonstrated by balloon occlusion in the left upper lobe, right upper lobe and right lower lobe Recommendation: - Await test results. - Chest X-ray post-procedure. Carson Pineda MD 03/23/2021 5:58:33 PM Number of Addenda: 0 Note Initiated On: 03/23/2021 11:41 AM [address]; [place] [address] documented in this encounter OR Notes * Amaris-OP - Carson Pineda MD - 03/23/2021 2:34 PM CDT Brief Postoperative Note Bentley Mesa [id number] Pre-operative Diagnosis: Lung nodule Post-operative Diagnosis: Same Procedure/Anesthesia: Brobchoscopy with bx ?? Procedure Start:??12.57 pm Procedure End:??2.20 am? Findings:??See note ?? Specimens Removed:??Lung bx ?? Estimated Blood Loss:??Minimal ?? Complications:none ?? Carson Pineda MD? documented in this encounter Miscellaneous Notes * Care Plan - Kavitha Stock RN - 03/23/2021 6:19 PM CDT Pt tolerating po, remains on home O2 of 3L, denies any new sob or cp, IV d/c'd with tip intact, discharge instructions reviewed, pt escorted to front via w/c with belongings by IVC staff. documented in this encounter Plan of Treatment Not on file documented as of this encounter Procedures Procedure Name Priority Date/Time Associated Diagnosis Comments PROCEDURE REPORT 03/23/2021 5:59 PM CDT XR CHEST PA OR AP 1 VW Stat 3:05 PM CDT AFB CULTURE WITH STAIN Routine 2:47 PM CDT PATHOLOGY Pathology 03/23/2021 2:47 PM CDT RESPIRATORY CULTURE WITH GRAM STAIN Routine 03/23/2021 2:47 PM CDT FUNGUS CULTURE, OTHER Routine 03/23/2021 2:47 PM CDT MISCELLANEOUS LAB TEST Routine 2:47 PM CDT CYTOLOGY, NON GYNE Pathology 03/23/2021 2: 47 PM CDT XR FLUORO LESS THAN 1 HOUR Routine 03/23/2021 2:30 PM CDT documented in this encounter Results * PROCEDURE REPORT (03/23/2021 5:59 PM CDT) Narrative Procedure Note Carson Pineda MD - 03/23/2021 5:58 PM CDT [facility] Pulmonology Patient Name: Bentley Mesa Procedure Date: 03/23/2021 Date of : 1960 Admit Type: Outpatient Attending MD: Carson Pineda MD Procedure: Bronchoscopy Indications: Right upper lobe nodule, Severe emphysema for evaluation of bronchoscopic lung volume reduction using balloon occlusion Providers: Carson Pineda MD (Doctor) Referring MD: Requesting Physician: Medicines: Midazolam 22 mg IV, Fentanyl 550 mcg IV Complications: No immediate complications Procedure: Informed consent was obtained for the procedure, including sedation. Risks of hypoxia, dental injury, lung injury/perforation, hemorrhage, infection, arrhythmia, and adverse drug reaction were discussed. A time-out process was performed and verified patient identification, procedure, correct patient position, as well as special equipment available. The patient was brought to the bronchoscopy suite. 2% lidocaine was used for topical anesthesia of the tracheobronchial tree. Oxygen saturation and vital signs were monitored continuously. The bronchoscope was introduced through the mouth, via the endotracheal tube (the patient was intubated for the procedure) and advanced to the tracheobronchial tree. The procedure was accomplished without difficulty. The patient tolerated the procedure fairly well. Moderate sedation start time: 12.57 pm Moderate sedation end time: 2.20 pm Findings: The travon itself was sharp with no mucosal abnormalities. First, the right bronchial tree was comprehensively inspected to the subsegmental level; the left bronchial tree was likewise comprehensively inspected and revealed no visible endobronchial lesions or mucosal abnormalities. A 169 cm 2.7 mm Chartis balloon catheter was introduced into the left upper lobe under direct visualization and balloon inflation was performed with resultant complete occlusion of the left upper lobe bronchus as observed by mucosal blanching. Next, a Chartis flow assessment maneuver was initiated using real-time visualization of decremental flow in the left upper lobe until a value of zero (no-flow) was achieved, which was indicative of absent collateral ventilation. In similar fashion, an additional two separate Chartis flow assessments were performed in the right upper lobe and right lower lobe, both of which demonstrated decremental flow up to a value of zero consistent with the absence of collateral ventilation. Using a predetermined target point corresponding to the right upper lobe lung nodule, navigational bronchoscopy was performed using the Health Data Minder system with passage of a steerable flexible catheter to a point proximal to the lesion under fluoroscopic guidance. A radial ultrasound probe was inserted through the indwelling catheter and revealed a small area of abnormal echogenicity. The probe was withdrawn and a bronchoalveolar lavage, brushings and multiple needle aspirates as well as transbronchial biopsies were performed under fluoroscopic guidance. Thereafter, the entire bronchoscope was withdrawn without incident. Specimens: 1.Bronchoalveolar lavage from the RUL 2.Fine needle aspirates from the RUL 3.Cytology brushings from the RUL 4.Transbronchial biopsies from the RUL Impression: - Right upper lobe nodule - Severe emphysema without significant collateral ventilation as demonstrated by balloon occlusion in the left upper lobe, right upper lobe and right lower lobe Recommendation: - Await test results. - Chest X-ray post-procedure. Carson Pineda MD 03/23/2021 5:58:33 PM Number of Addenda: 0 Note Initiated On: 03/23/2021 11:41 AM [address]; [place] [address] Carson Pineda MD PROCEDURE/MINOR SURG ICAL ORDERABLES * XR CHEST PA OR AP 1 VW (03/23/2021 3:05 PM CDT) Anatomical Region Laterality Modality Chest Computed Radiogr aphy 03/23/2021 3:05 PM CDT Impressions 03/23/2021 3:32 PM CDT IMPRESSION: 1. Right perihilar and suprahilar opacities with an interstitial component. 2. No evidence of pneumothorax. DICTATION LOCATION: Location [employer] Patricia Gonzalesn Narrative 03/23/2021 3:32 PM CDT EXAM: AP CHEST DATE: ??03/23/2021 3:05 PM HISTORY: ??Post-Operative. Lung biopsy. COMPARISON: The previous CT chest performed on 02/22/2021 was reviewed. FINDINGS: Mild right perihilar and suprahilar opacities are identified with an interstitial component. Left lung is grossly clear. No pneumothorax is seen. Heart size is normal. The bony chest wall is intact. Procedure Note Abhilash Vega MD - 03/23/2021 EXAM: AP CHEST DATE: 03/23/2021 3:05 PM HISTORY: Post-Operative. Lung biopsy. COMPARISON: The previous CT chest performed on 02/22/2021 was reviewed. FINDINGS: Mild right perihilar and suprahilar opacities are identified with an interstitial component. Left lung is grossly clear. No pneumothorax is seen. Heart size is normal. The bony chest wall is intact. IMPRESSION: 1. Right perihilar and suprahilar opacities with an interstitial component. 2. No evidence of pneumothorax. DICTATION LOCATION: Location [address] [place] [address] Carson Pineda MD DIAGNOSTIC IMAGING O RDERABLES * AFB CULTURE WITH STAIN (03/23/2021 2:47 PM CDT) AFB CULTURE FINAL 1301 05/06/2021 1:01 PM CDT [facility] Comment: SOURCE: LUNG, Washings, Lung, right MYCOBACTERIAL CULTURE ?FINAL No growth after 42 days of incubation. Test Performed by: [place] [address] [employer]quet[employer] Operator: Jack Menard M.D. Ph.D.; CLIA# [id number] [place] SPECIMEN FROM LUNG / Unknown Collection / Unknown 03/23/2021 2:47 PM CDT 03/23/2021 3:34 PM CDT Carson Pineda MD MICROBIOLOGY - GENER AL ORDERABLES Performing Organization Address [facility]/State/ZIP Co de Phone Number [facility] * MISCELLANEOUS LAB TEST (03/23/2021 2:47 PM CDT) MISCELLANEOUS LAB TEST SEE COMMENTS 03/25/2021 4:30 PM CDT [facility] Comment: Test ?Result ??Flag ??Unit ??RefValue Acid Fast Smear For ? FINAL 03/25/2021 1630 ??Mycobacterium SOURCE: LUNG, Washings, Lung, right ACID FAST SMEAR FOR MYCOBACTERIUM ?FINAL Negative. Test Performed by: [facility] [address] [place] [address] [employer]quet[employer] Operator: Jack Menard M.D. Ph.D.; IA# [id number] [place] SPECIMEN FROM LUNG / Unknown Collection / Unknown 03/23/2021 2:47 PM CDT 03/23/2021 3:34 PM CDT Carson Pineda MD CHEMISTRY ORDERABLES Performing Organization Address [facility]/State/ZIP Co de Phone Number [facility] * PATHOLOGY (03/23/2021 2:47 PM CDT) CASE REPORT Surgical Pathology Report ? Case: [id number] ? Authorizing Provider: ??Carson Pineda MD ? Collected: ? 03/23/2021 02:47 PM ? Ordering Location: ? [facility] [address] ?Received: ?03/24/2021 10:21 AM ? Can Interventional Care ? Pathologist: ? Lorena Aviles MD ? Specimen: ?Lung, RUL, Transbronchial bx ? 11:39 AM [facility] FINAL DIAGNOSIS Lung, right upper lobe, transbronchial biopsy (including touch preparation). - Bronchial mucosa and alveolar parenchyma with mild chronic inflammation and rare giant cell. - Negative for malignancy. See comment. 11:39 AM [facility] S DESCRIPTION Received in a single container labeled Bentley Mesa, right upper lobe transbronchial biopsy are 5 fragments of semitranslucent petty to red tissue ranging from less than 0.1 to 0.1 cm in greatest dimension. Touch preps are performed labeled TP 1. The specimen is submitted entirely in cassettes A1 and A2. KA 11:39 AM [facility] MICROSCOPIC DESCRIPTION The slides are labeled [id number] and Bentley Mesa. This case is reviewed in conjunction with the concomitant cytology material [id number]. Sections of the transbronchial biopsy show bronchial mucosa and alveolar parenchyma with very mild chronic inflammation and rare giant cells. Well-formed granulomas are not identified. PAS and AFB histochemical stains are negative for organisms (block A2). Polarizable material is not identified. A neoplastic population is not identified. The touch preparation consists of benign bronchial epithelial cells. 11:39 AM [facility] INTRAOPERATIVE CONSULTATION FNA immediate assessment report: Lung, right upper lobe: Unsatisfactory for evaluation. Alondra Chen, CT (ASCP) 11:39 AM [facility] OPERATIVE PROCEDURE Transbronchial biopsy 11:39 AM [facility] CLINICAL INFORMATION Lung nodule 11:39 AM [facility] COMMENT Special stain and/or immunohistochemical results are interpreted with controls that demonstrate appropriate staining reactions. Note on use of immunocytochemistry reagents: This test was developed and its performance characteristics determined by [facility], Department of Laboratory Medicine. It has not been cleared or approved by the U.S. Food and Drug Administration. The FDA has determined that such clearance or approval is not necessary. The test is used for clinical purposes. It should not be regarded as investigational or for research. This laboratory is certified to perform high complexity testing. Frozen section/operating room consultation, gross examination and dissection, and case sign out may have been performed in part or completely in the following laboratories: [facility], [place] #[id number] [address] [place] [address] [facility], [place] #[id number] [address] [place] [address] [id number] [place] [address] 11:39 AM CDT [facility] Tissue (Lung, RUL) Collection / Unknown 03/23/2021 2:47 PM CDT 03/24/2021 10:21 AM CDT Carson Pineda MD PATHOLOGY/CYTOLOGY O RDERABLES [facility] [id number] [address] [place] [address] * CYTOLOGY, NON GYNE (03/23/2021 2:47 PM CDT) CASE REPORT Medical Cytology Report ? Case: [id number] ? Authorizing Provider: ??Carson Pineda MD ? Collected: ? 03/23/2021 02:47 PM ? Ordering Location: ? [facility] [address] ?Received: ?03/24/2021 07:44 AM ? Can Interventional Care ? Pathologist: ? Lorena Aviels, ? Specimens: ?? A) - Fine needle aspirate, lung, RUL ? B) - BAL, right upper lobe ? C) - Bronchial brushing, RUL ? 03/28/2021 11:40 AM [facility] [employer] [facility] FINAL DIAGNOSIS Lung, right upper lobe, fine-needle aspiration: - Nondiagnostic for a mass lesion. - Benign bronchial epithelial cells and pulmonary macrophages. - Cell block supports the cytologic diagnosis. Lung, right upper lobe, bronchoalveolar lavage: - Scant pulmonary macrophages in a background of mild mixed inflammation. - No malignant cells identified. Lung, right upper lobe, bronchial brushing: - Benign bronchial epithelial cells present. 03/28/2021 11:40 AM [facility] S DESCRIPTION Received are 3 containers all labeled Bentley Mesa . The first specimen is labeled fine needle aspirate, RUL (A). It consists of 4 direct smears (2 Pap, 2 Diff-Quik stained) and a container of clear light pink CytoLyt that is made into a ThinPrep and cell block. The second container (B) is labeled BAL, right upper lobe . It contains 5 mL of clear colorless fluid. One ThinPrep made. The third container (C) is labeled bronchial brushing, RUL . It holds 1 brush(s) in 30 mL of clear light pink CytoLyt fluid. One ThinPrep made. AG 03/28/2021 11:40 AM [facility] MICROSCOPIC DESCRIPTION The slides are labeled [id number] and Bentley Mesa. This case is reviewed in conjunction with the concomitant surgical material [id number]. The direct smears, ThinPrep, and cell block preparation of the right upper lobe aspirate consist of benign bronchial epithelial cells and pulmonary macrophages. A distinct atypical population is not identified. The BAL consists of very scant pulmonary macrophages in a background of mild mixed inflammation and the bronchial brushing possesses benign bronchial epithelial cells. Malignant cells are not identified. 03/28/2021 11:40 AM [facility] IMMEDIATE ASSESSMENT Lung, right upper lobe, fine-needle aspiration: Pass 1: Unsatisfactory Pass 2: Unsatisfactory Alondra Chen, CT 03/28/2021 11:40 AM [facility] OPERATIVE PROCEDURE Fine-needle aspiration, bronchoalveolar lavage, bronchial brushing 03/28/2021 11:40 AM [facility] CLINICAL INFORMATION Lung nodule 03/28/2021 11:40 AM [facility] COMMENT Special stain and/or immunohistochemical results are interpreted with controls that demonstrate appropriate staining reactions. Note on use of immunocytochemistry reagents: This test was developed and its performance characteristics determined by [facility], Department of Laboratory Medicine. It has not been cleared or approved by the U.S. Food and Drug Administration. The FDA has determined that such clearance or approval is not necessary. The test is used for clinical purposes. It should not be regarded as investigational or for research. This laboratory is certified to perform high complexity testing. Cases may have been signed out in part or completely in the following laboratories: [facility], CLIA #[id number] [address] [place] [address] [facility], CLIA #[id number] [place] [address]. 03/28/2021 11:40 AM CDT [facility] Body fluid (Fine needle aspirate, lung) Collection / Unknown 03/23/2021 2:47 PM CDT 03/24/2021 7:44 AM CDT Body fluid specimen (specimen) (BAL, right upper lobe) Collection / Unknown 03/23/2021 2:47 PM CDT 03/24/2021 7:44 AM CDT Body fluid specimen (specimen) (Bronchial brushing) 03/23/2021 2:47 PM CDT 03/24/2021 7:44 AM CDT Carson Pineda MD PATHOLOGY/CYTOLOGY O RDERABLES Performing Organization Address City/[facility]/ZIP Co de Phone Number [facility] CLIA# [id number] [address] [place], [place] [id number] * (ABNORMAL) FUNGUS CULTURE, OTHER (03/23/2021 2:47 PM CDT) CULTURE MERNA ALBICANS(A) SHALA MCG/ML 04/18/2021 8:50 AM CDT [facility] Washings SPECIMEN FROM LUNG / Unknown Collection / Unknown 03/23/2021 2:47 PM CDT 03/23/2021 3:34 PM CDT Carson Pineda MD MICROBIOLOGY - GENER AL ORDERABLES Performing Organization Address City/[facility]/ZIP Co de Phone Number [facility] CLIA# [id number] [address] [place] [address] * RESPIRATORY CULTURE WITH GRAM STAIN (03/23/2021 2:47 PM CDT) CULTURE No pathogens isolated. Normal respiratory jennifer present. 03/25/2021 7:17 AM CDT [facility] GRAM STAIN Non diagnostic pattern 03/25/2021 7:17 AM CDT [facility] GRAM STAIN 2+ (Few) WBC 03/25/2021 7:17 AM CDT [facility] Washings SPECIMEN FROM LUNG / Unknown Collection / Unknown 03/23/2021 2:47 PM CDT 03/23/2021 3:34 PM CDT Carson Pineda MD MICROBIOLOGY - GENER AL ORDERABLES [facility] CLIA# [id number] [address] [place] [address] * XR FLUORO LESS THAN 1 HOUR (03/23/2021 2:30 PM CDT) Narrative 03/23/2021 2:31 PM CDT Order information only. ??Exam was auto-finalized. ?? Carson Pineda MD DIAGNOSTIC IMAGING O RDERABLES documented in this encounter Visit Diagnoses Not on filedocumented in this encounter Administered Medications Inactive Administered Medications - up to 3 most recent administrations Medication Order MAR Action Action Date Dose Rate Site BENZOCAINE 20 % MUCOSAL SPRAY (CABINET OVERRIDE) 1 dose, Starting on Molly 03/23/21 at 1218, Until Molly 03/23/21 at 1316, Lang OMNICELL: cabinet override Given 03/23/2021 1:16 PM CDT 2 Sprays benzocaine PF (HURRICAINE ONE) 20 % spray Mouth/Throat, PRE-PROCEDURE ONCE, 2 doses, Starting on Molly 03/23/21 at 1259, Until Molly 03/23/21 at 2119, Routine FENTANYL (PF) 50 MCG/ML INJECTION SOLUTION (CABINET OVERRIDE) 1 dose, Starting on Molly 03/23/21 at 1218, Until Molly 03/23/21 at 1428, Rolando CERVANTES: cabinet override fentaNYL PF (SUBLIMAZE) 50 mcg/mL injection 550 mcg 550 mcg, IV, ONE TIME ONLY, 1 dose, On Molly 03/23/21 at 1430, Routine Given 03/23/2021 2:28 PM CDT 550 mcg lidocaine 2 % (XYLOCAINE) injection 17 mL 17 mL, See Admin Instructions, ONE TIME ONLY, 1 dose, On Molly 03/23/21 at 1430, Routine Given 03/23/2021 2:29 PM CDT 17 mL Other (Comment) LIDOCAINE HCL 20 MG/ML (2 %) INJECTION SOLUTION (CABINET OVERRIDE) 1 dose, Starting on Molly 03/23/21 at 1219, Until Molly 03/23/21 at 1429, Rolando CERVANTES: cabinet override midazolam (PF) (VERSED) injection 22 mg 22 mg, IV, ONE TIME ONLY, 1 dose, On Molly 03/23/21 at 1430, Routine Given 03/23/2021 2:26 PM CDT 22 mg MIDAZOLAM (PF) 1 MG/ML INJECTION SOLUTION (CABINET OVERRIDE) 1 dose, Starting on Molly 03/23/21 at 1219, Until Molly 03/23/21 at 1426, Rolando CERVANTES: cabinet override sodium chloride 0.9% bolus solution 250 mL 250 mL, IV, ONE TIME ONLY, 1 dose, On Molly 03/23/21 at 1300, at 166.67 mL/hr, Administer over 90 Minutes, Routine New Bag 03/23/2021 12:55 PM CDT 250 mL 166.67 mL/hr documented in this encounter Active and Recently Administered Medications Times are shown in CDT. Scheduled Medication Order 03/21/2021 03/22/2021 03/23/2021 benzocaine PF (HURRICAINE ONE) 20 % spray Mouth/Throat, PRE-PROCEDURE ONCE, 2 doses, Starting on Molly 03/23/21 at 1259, Until Molly 03/23/21 at 2119, Routine fentaNYL PF (SUBLIMAZE) 50 mcg/mL injection 550 mcg (COMPLETED) 550 mcg, IV, ONE TIME ONLY, 1 dose, On Molly 03/23/21 at 1430, Routine 1428 (Given - Provid er: Mary Marshall RN - Comment: 25mcg @ [id number] @ [id number] @ 1300 1309 1326 1338 1342 1355 1357 1413 1413) lidocaine 2 % (XYLOCAINE) injection 17 mL (COMPLETED) 17 mL, See Admin Instructions, ONE TIME ONLY, 1 dose, On Molly 03/23/21 at 1430, Routine 1429 (Given - Provid er: Mary Marshall RN - Comment: pre procedure atomizer1-2cc increments during procedure) midazolam (PF) (VERSED) injection 22 mg (COMPLETED) 22 mg, IV, ONE TIME ONLY, 1 dose, On Molly 03/23/21 at 1430, Routine 1426 (Given - Provid er: Mary Marshall RN - Comment: 1mg @ [id number] @ [id number] @ 1300 1309 1326 1338 1342 1355 1357 1413 1413) sodium chloride 0.9% bolus solution 250 mL (COMPLETED) 250 mL, IV, ONE TIME ONLY, 1 dose, On Molly 03/23/21 at 1300, at 166.67 mL/hr, Administer over 90 Minutes, Routine 1255 (New Bag - Prov ider: Mary Marhsall RN)1425 (Stopped - Provider: Mary Marshall RN) No Frequency Medication Order 03/21/2021 03/22/2021 03/23/2021 BENZOCAINE 20 % MUCOSAL SPRAY (CABINET OVERRIDE) (COMPLETED) 1 dose, Starting on Molly 03/23/21 at 1218, Until Molly 03/23/21 at 1316, Rolando OMNICELL: cabinet override 1316 (Given - Provid er: Mary Marshall RN - Comment: [address] Pineda) documented in this encounter
--- OUTSIDE RECORDS SUMMARY | 2024-10-14 06:00 | XMS_ITS | Encounter Summary ---
Author Organization [facility] Address [address] [place] [address] Care Team Providers Care Law Tutor Name Role Phone Unavailable Primary Care Provider Unavailabl e Reason for Visit * Reason Onset Date Comments Medication Review 12/07/2020 Encounter Details Date Type Department Care Team (Late st Contact Info) Description 12/07/2020 Refill [facility] Pulmonology [facility] [address] [place] [address] Carson Pineda MD [address] [place] [address] Social History Tobacco Use Types Packs/Day Years [...] have Coronavirus / COVID-19? No / Unsure 12/06/2020 3:42 PM MANAGER SWITCH documented as of this encounter Miscellaneous Notes * Telephone Encounter - Eliz Alcala RN - 12/07/2020 1:57 PM MANAGER SWITCH Medication there at the pharmacy. Pt advised. GER SWITCH * Telephone Encounter - Edna Slaughter PCA - 12/07/2020 1:11 PM CST Patient calling because pharmacy does not have AFINOSp script. GER SWITCH documented in this encounter Plan of Treatment Not on file documented as of this encounter Visit Diagnoses Not on filedocumented in this encounter
--- OUTSIDE RECORDS SUMMARY | 2024-10-14 06:00 | XMS_ITS | CONTINUITY OF CARE DOCUMENT ---
Author Name jose juan manzano Address Unknown Organization [facility] Address [address] [place] [address] Phone [phone] Care Team Providers Care Finish Repair Worker Name Role Phone Randy Wynne MD Unavailable [phone] OLIVIA SAUNDERS MD Unavailable [phone] JEAN FINCH MD Unavailable INSURANCE PROVIDERS Payer name Policy type / Coverage type [place] [employer] party ID [employer] Medicaid 1 [id number]
--- OUTSIDE RECORDS SUMMARY | 2024-10-14 06:00 | XMS_ITS | Encounter Summary ---
Author Organization [facility] Healthcare Address [address] [place] [address] Care Team Providers Care Full Roll Inspector Name Role Phone Aristeo Khan MD Primary Care Provider [phone] Ravi Queen MD Unavailable [phone] Reason for Referral * Diagnostic Imaging (Routine) - Closed Specialty Diagnoses / Procedures Referred By Contac t Referred To Contact Diagnoses Osteoarthritis of right knee, unspecified osteoarthritis type Procedures Imaging Genicular Nerve Block (93622) Christen Curiel NP [address] [place] [address] [place] [address] Phone: tel: fax: [address] [phone] Referral ID Status Reason Start Date Expiration Date Visits Re quested Visits Authorized [id number] Closed 02/25/2024 03/26/2025 1 1 Reason for Visit * Diagnostic Imaging (Routine) - Closed Specialty Diagnoses / Procedures Referred By Contac t Referred To Contact Diagnoses Osteoarthritis of right knee, unspecified osteoarthritis type Procedures Imaging Genicular Nerve Block (62568) Christen Curiel NP [address] [place] [address] [place] [address] Phone: tel: fax: [address] [phone] Referral ID Status Reason Start Date Expiration Date Visits Re quested Visits Authorized [id number] Closed 02/25/2024 03/26/2025 1 1 Encounter Details Date Type Department Care Team (Latest Contact Info) Description 04/02/2024 12:30 PM CDT - 04/02/2024 11:59 PM CDT Hospital Encounter [facility] [address] [facility] 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 Gender Identity Not on file Sexual Orientation Not on file documented as of this encounter Last Filed Vital Signs Vital Sign Reading Time Taken Comments Blood Pressure 153/94 04/02/2024 1:05 PM CDT Pulse 102 04/02/2024 1:05 PM CDT Temperature 36.9 ??C (98.5 ??F) 04/02/2024 12:40 PM C DT Respiratory Rate 20 04/02/2024 1:05 PM CDT Oxygen Saturation 95% 04/02/2024 1:05 PM CDT Inhaled Oxygen Concentration - - Weight - - Height - - Body Mass Index - - documented in this encounter Discharge Instructions * Discharge Instructions* Lia Delgado RN - 04/02/2024 1:05 PM CDT PAIN DIARY - 8 HOURS Your doctor will need to know if this procedure was helpful for your pain before proceeding to the next step. Starting now, please rate your pain using the provided 0-10 scale for the next 8 hours. We will call for your pain diary results on the next business day and share those results with your doctor to determine the next step. When rating your pain, think about any challenges with your daily activities before this injection compared to the 8 hours after this injection. Are you able to perform these activities better? Are you able to stand longer, walk further, do perforator operator oil well, perform daily activities of living better? Overall, what is your percentage of improvement? (ie: 0-100%) Time Pain Score 1 hour after procedure 2 hours after procedure 3 hours after procedure 4 hours after procedure 5 hours after procedure 6 hours after procedure 7 hours after procedure 8 hours after procedure [facility] POST-PROCEDURE PATIENT EDUCATION The following procedure was performed in clinic today: Genicular Nerve Block The effects of this injection will be almost immediate; however, it will only provide TEMPORARY pain relief. It is a diagnostic tool to determine the potential benefit of radiofrequency nerve ablation. We ask that you keep a pain diary and record the following information: Hourly pain score (ie: 3/10) Extent to which your pain was relieved (ie: 80%) Duration of pain relief (ie: 3hrs) Function and activity level (ie: increased, able to do laundry, able to grocery shop, etc.) A staff member will contact you for your pain diary information within one business day to determine the next step in your plan of care. Discharge instructions reviewed. Signed copy given to patient. Patient verbalized understanding. Patient to return as instructed. documented in this encounter Medications at Time [...] day as needed for pain 120 tablet 03/12/2024 4 HYDROcodone-aceta minophen (NORCO) 5-325 mg per tabletIndications :Pain Take 1 tablet by mouth 4 (four) times a day as needed for pain 120 tablet 04/11/2024 4 HYDROcodone-aceta minophen (NORCO) 5-325 mg per tabletIndications :Pain Take 1 tablet by mouth 4 (four) times a day as needed for pain 120 tablet 05/11/2024 4 documented as of this encounter Discharge Disposition Disposition Code Departure Means Destination Discharge to home or self care documented in this encounter Progress Notes * Kenney Holder MD - 04/02/2024 12:30 PM CDT Patient Name: Bentley Mesa : 1960 Today's Date: 04/02/2024 PCP: Aristeo Khan MD Most recent H&P reviewed, no pertinent changes noted. Encounter Diagnosis Name Primary? Osteoarthritis of right knee, unspecified osteoarthritis type Vitals BP 153/94 Pulse 102 Temp 98.5 ??F (36.9 ??C) (Temporal) Resp 20 SpO2 95% Allergies Allergen Reactions Oxycodone Hives and Itching [...] fluticasone propionate (FLONASE) 50 mcg/actuation nasal spray ngijyrztbnf-snudvifbb-kqxznfzb (Lonhala Magnair Starter) 25 mcg/mL solution for nebulization HYDROcodone-acetaminophen (NORCO) 5-325 mg per tablet HYDROcodone-acetaminophen (NORCO) 5-325 mg per tablet HYDROcodone-acetaminophen (NORCO) 5-325 mg per tablet ipratropium (ATROVENT HFA) 17 mcg/actuation inhaler latanoprost (XALATAN) 0.005 % ophthalmic solution naloxone (NARCAN) 4 mg/actuation spray,non-aerosol omeprazole (PriLOSEC) 20 mg capsule predniSONE (DELTASONE) 10 mg tablet promethazine-DM (PROMETHAZINE-DM) 1.25-3 mg/mL syrup raNITIdine (ZANTAC) 150 mg tablet ROS: WNL for patient. PE: Alert and oriented. Normal pupils. Normal respiratory effort. Abdomen not distended. CN 2-12 grossly intact. Informed Consent: Risks, benefits, complications, and alternatives to proceeding with the procedurewere discussed in detail with the patient. The patient was informed about risks including (but not limited to): infection, bleeding/bruising, allergic reaction, nerve or organ injury, increased pain or lack of pain relief, stroke, and . Questions were solicited and answered, and the patient endorsed explicit understanding and consented to proceed. On long-term maintenance antibiotics for COPD, no active infectious symptoms. Plan: Proceed with intervention as previously ordered. Kenney Holder MD [facility] Interventional [facility] Medicine documented in this encounter Miscellaneous Notes * Op Note - Kenney Holder MD - 04/02/2024 12:30 PM CDT Procedure performed: Right diagnostic genicular nerve block Indication for procedure: ICD-10-CM 1. Osteoarthritis of right knee, unspecified osteoarthritis type M17.11 Imaging Genicular Nerve Block (56093) Imaging Genicular Nerve Block (58365) Estimated Blood Loss: 0 Procedure Description: Informed Consent: Risks were identified and discussed as documented in pre- procedure H&P. The patient expressed understanding and is willing to proceed. Procedure Description: The patient was then positioned supine on the fluoroscopic table and appropriate monitors applied. The injection site was prepped with antiseptic solution and draped in the usual sterile fashion. Fluoroscopy was utilized to optimize the right knee joint in anteroposterior view. Anticipated locations of the superomedial, superolateral, and inferomedial genicular nerves were identified and marked. The overlying skin and subcutaneous tissue was anesthetized with 1% lidocaine. Next, 25 gauge spinal needles were advanced towards aforementioned nerve targets under fluoroscopic guidance. Needle position was confirmed with multiple views. After negative aspiration, 0.5 ml of contrast was injected in each needle to verify lack of intravascular spread. Finally, 0.5 mL of 2% lidocaine was injected at each target site and needles withdrawn. Aseptic technique was utilized throughout. Location/laterality were confirmed with the patient and staff during timeout. The patient tolerated the procedure well, and there were no apparent complications. There were no neurosensory changes. The patient was brought to the recovery area. Vital signs stable. Injection site clean, dry, and intact. Post procedure instructions were given to the patientand a follow up confirmed. 24-hour contact information provided. The patient was instructed to callin the event of severe pain, bleeding, neurological deficit, fever, or other significant concerns, and to call 911 if there is any concern for any emergency. The patient denied complaints and was discharged. Medications used: New Medications Ordered This Visit iohexoL (OMNIPAQUE) 240 mg iodine/mL injection solution lidocaine (PF) (XYLOCAINE) 20 mg/mL (2 %) preservative free injection 0.5 mL local anesthetic (at each site, 2 mL total) Pre-procedure pain score: 4 Post-procedure pain score: 0 Kenney Holder MD [facility] Interventional Pain Medicine * Addendum Note - Esperanza Amaral RN - 04/02/2024 12:30 PM CDTEncounter addended by: Esperanza Amaral RN on: 04/07/2024 11:23 AM Actions taken: Charge Capture section accepted documented in this encounter Plan of Treatment Not on file documented as of this encounter Goals Goal Patient Goal Type Associated Problems Recent Progress Patient-Stated? Author [facility] On track( 023 1:36 PM CDT) No Esperanza Amaral RN Note: Patient will establish a comfort-function goal and identify the pain level that will allow the patient to perform desired activities and achieve an acceptable quality of life. documented as of this encounter Procedures Procedure Name Priority Date/Time Associated Diagnosis Comments PAIN MGMT IMAGING GENICULAR NERVE BLOCK Schedule Routine, Read Routine (OP Routine) 04/02/2024 1:02 PM CDT Osteoarthritis of right knee, unspecified osteoarthritis type documented in this encounter Results * Imaging Genicular Nerve Block (80167) (04/02/2024 1:02 PM CDT) Narrative [facility] - 04/02/2024 1:02 PM CDT The images from this study are not interpreted by Radiology. ??Please refer to the physician's procedure / OR operative note. us Christen Curiel NP IMG PAIN MGMT PROCEDURES Fi nal Result [facility] documented in this encounter Visit Diagnoses Diagnosis Osteoarthritis of right knee, unspecified osteoarthritis type documented in this encounter Administered Medications Inactive Administered Medications - up to 3 most recent administrations Medication Order MAR Action Action Date Dose Rate Site iohexoL (OMNIPAQUE) 240 mg iodine/mL injection solution As needed, Starting on Molly 04/02/24 at 1248, Intra-Op Given 04/02/2024 12:59 PM CDT 1 mL Right Knee lidocaine (PF) (XYLOCAINE) 20 mg/mL (2 %) preservative free injection As needed, Starting on Molly 04/02/24 at 1249, Intra-Op Given 04/02/2024 1:00 PM CDT 3 mL Right Knee documented in this encounter Care Teams Full Roll Inspector Relationship Specialty Start Date End Date Aristeo Khan MD [address] [place] [address] PCP - General 06/28/22 Ravi Queen MD [address] [place] [address] [place] [address] Anesthesiologist Pain Management 09/05/22 documented as of this encounter
--- OUTSIDE RECORDS SUMMARY | 2024-10-14 06:00 | XMS_ITS | Encounter Summary ---
Author Organization [facility] Address [address] Elena: Epic Prelude ADT [place] [address] Care Team Providers Care Overnight Houseperson Name Role Phone Unavailable Primary Care Provider Unavailabl e Encounter Details Date Type Department Care Team (Latest Contact Info) Description 12/06/2020 Travel Social History Tobacco Use Types Packs/Day [...] COVID-19? 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
--- OUTSIDE RECORDS SUMMARY | 2024-10-14 06:00 | XMS_ITS | Encounter Summary ---
Author Organization [facility] Healthcare Address [address] [place] [address] Care Team Providers Care Concert Promoter Name Role Phone Aristeo Khan MD Primary Care Provider Ravi Queen MD Unavailable [phone] Reason for Visit * Reason Comments Follow-up Med Management Encounter Details Date Type Department Care Team (Latest Contact Info) Description 12/27/2022 9:41 AM CDT - 12/27/2022 11:59 PM CDT Hospital Encounter [facility] [address] [place] [address] A, 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 * Opioid Pain Management (Solar Installation Technician) (Uzbek) documented in this encounter Medications at Time [...] day as needed for pain 120 tablet 01/06/2023 3 HYDROcodone-acet aminophen (NORCO) 5-325 mg per tabletIndication s:Pain Take 1 tablet by mouth 4 (four) times a day as needed for pain 120 tablet 02/05/2023 3 ipratropium-albu terol (DUO-NEB) 0.5-2.5 mg/3 mL [...] in this encounter Progress Notes * Rosaline Rdz, TRANSPORTER RADIOLOGY - 12/27/2022 10:00 AM CDT Patient Name: Bentley Mesa : 1960 Today's Date: 12/27/2022 PCP: Aristeo Khan MD Referring: Ravi Queen MD Chief Complaint Patient presents with Follow-up Med Management HPI Bentley Mesa is a 62 y.o. year old male seen in consultation today for a follow-up. Today he reports 75% reduction in his pain with the White. He continues with a Chief Complaint of right knee pain. The pain is described as a constant burning, achy, sharp pain. It rates Currently 3/10 on the numeric pain scale. At Worst 10/10 Provocative maneuvers include standing and walking. At Best 2/10 Alleviating maneuvers include with White, sitting, and rest. He reports that since his last visit he was very sick with pneumonia and was hospitalized and intubated for a few weeks. He states that he has been home for 2 months now and is starting to get some energy back and is able to eat a little more. He reports he is in some therapy now and is thinking about looking into getting a chiropractor. His is with him at this visit. Pain impacts his activities of daily living because he can't stand for long periods of time. With regard to additional symptoms the patient reports general right knee Weakness, He reports right thigh Numbness. He denies bowel or bladder incontinence. He reports chronic pain associated Insomnia. Therapeutic modalities attempted to date include White 5/325 provides him relief, oral prednisone provides him no relief, multiple injections provided him no relief, Tylenol provides him no relief, ibuprofen provides him no relief, Aleve provides him no relief, and tramadol provides him no relief. Pain Score: 3 Patient's Stated Pain Goal: 2 Pain Location: Knee Pain Radiating Towards: right thigh Pain Descriptors: Aching;Sharp;Numbness Pain Frequency: Constant/continuous Pain Onset: Ongoing Clinical Progression: Not changed Effect of Pain on Daily Activities: has some difficulty, rests when needed Allergies Allergen Reactions Oxycodone Hives and Itching [...] patient is not nervous/anxious. Physical Exam Vitals: 12/27/22 1000 BP: 114/76 BP Location: Right arm Patient Position: Sitting Pulse: 98 Resp: 17 SpO2: 94% Comment: 3 L O2 There is no height or weight [...] no change Gaenslen's Test Right negative produces no pain Left negative produces no pain FABERs Test Right negative produces no pain Left negative produces no pain Imaging: No recent imaging is available. Review of Data: Checked the [place] PROGRAM AIDE sheet and it was consistent with our meds. UDT results: A sample that was obtained at his last visit was appropriate and consistent for his prescriptions. The patient was given a prescription for intranasal Narcan for the management of opioid induced respiratory depression or excess sedation. I reviewed the [place] Prescription Monitoring Program printout and it was [...] Mesa appears stable and satisfied with the White 5/325, I will provide him a refill and have him follow-up in 2 months time for a repeat evaluation. Mr. Mesa denies any questions to the above-mentioned plan and agrees. 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 Objective of opioid based therapy is to allow him to continue his activities of daily living with less suffering. Thank you for allowing me to participate in the care of this pleasant patient. Rosaline Rdz NP 12/27/2022 documented in this encounter Plan of Treatment [...] osteoarthritis type Insomnia secondary to chronic pain terminal clerk (current) use of opiate analgesic documented in this encounter Care Teams Concert Promoter Relationship Specialty Start Date End Date Aristeo Khan MD [address] [place] [address] PCP - General 06/28/22 Ravi Queen MD [address] [place] [id number] Anesthesiologist Pain Management 09/05/22 documented as of this encounter
--- OUTSIDE RECORDS SUMMARY | 2024-10-14 06:00 | XMS_ITS | Encounter Summary ---
Author Organization [facility] Address [address] [place] [address] Care Team Providers Care Stepdown Nurse Name Role Phone Unavailable Primary Care Provider Unavailabl e Encounter Details Date Type Department Care Team (Late st Contact Info) Description 03/30/2021 Abstract [facility] Pulmonology [facility] [address] [place] [address] Carson Pineda MD [address] [place] [address] Social History Tobacco Use Types [...] AM CDT documented as of this encounter Plan of Treatment Not on file documented as of this encounter Visit Diagnoses Not on filedocumented in this encounter
--- OUTSIDE RECORDS SUMMARY | 2024-10-14 06:00 | XMS_ITS | Encounter Summary ---
Author Organization [facility] Healthcare Address [address] [place] [address] Care Team Providers Care Power Distribution Engineer Name Role Phone Aristeo Khan MD Primary Care Provider [phone] Ravi Queen MD Unavailable [phone] Encounter Details Date Type Department Care Team (Late st Contact Info) Description 12/27/2022 Orders Only [facility] [address] [place] [address] A, 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 Gender Identity Not on file Sexual Orientation Not on file documented as of this encounter Ordered Prescriptions Prescription Sig Dispense Quantity Refills Last Filled Start Date End Date HYDROcodone-acetam inophen (NORCO) 5-325 mg per tabletIndications: Pain Take 1 tablet by mouth 4 (four) times a day as needed for pain 120 tablet 02/05/2023 02/28/2023 HYDROcodone-acetam inophen (NORCO) 5-325 mg per tabletIndications: Pain Take 1 tablet by mouth 4 (four) times a day as needed for pain 120 tablet 01/06/2023 02/05/2023 documented in this encounter Progress Notes * Rosaline Rdz NP - 12/27/2022 10:11 AM CDT Pt was seen in the office today documented in this encounter Plan of Treatment Not on file documented as of this encounter Goals Goal Patient Goal Type Associated Problems Recent Progress Patient-Stated? Author [facility] On track( 023 1:36 PM CDT) Esperanza Dobson, GORDON Note: Patient will establish a comfort-function goal [...] a day as needed for pain Reorder 12/07/2022 12/27/2022 documented as of this encounter Care Teams Power Distribution Engineer Relationship Specialty Start Date End Date Aristeo Khan MD [address] [place] [address] PCP - General 06/28/22 Ravi Queen MD [address] [facility] [address] [address] Anesthesiologist Pain Management 09/05/22 documented as of this encounter
--- OUTSIDE RECORDS SUMMARY | 2024-10-14 06:00 | XMS_ITS | Encounter Summary ---
Author Organization [facility] Address [address] [place] [address] Care Team Providers Care Best Second Jobs Name Role Phone Unavailable Primary Care Provider Unavailabl e Encounter Details Date Type Department Care Team (Late st Contact Info) Description 11/01/2020 Abstract [facility] Pulmonology [facility] [address] [place] [address] Carson Pineda MD [address] [place] [address] Social History Tobacco Use Types Packs/Day Years Used Date Smoking Tobacco: Never Assessed Sex and Gender Information Value Date Recorded Sex Assigned at Not on file Gender Identity Not on file Sexual Orientation Not on file documented as of this encounter Plan of Treatment Not on file documented as of this encounter Visit Diagnoses Not on filedocumented in this encounter
--- OUTSIDE RECORDS SUMMARY | 2024-10-14 06:00 | XMS_ITS | Clinical Summary ---
Author Organization [facility] Address [address] [place] [address] Phone Care Team Providers Care Slag Production Worker Name Role Phone Bentley Kyle MD Primary Care Provider [phone] Medications PAIN & FEVER EXTRA STRENGTH 500 MG Tablet Take 500 mg by mouth every 8 hours as needed. 4 9 Active VENTOLIN HFA 108 (90 Base) MCG/ACT Aerosol Solution take 2 Puffs by inhalation 4 times daily. 11 9 Active azithromycin (ZITHROMAX) 500 MG Tablet Take 500 mg by mouth three times a week. Saturday, Saturday, Saturday 6 9 Active promethazine-de xtromethorphan (PROMETHAZINE-D M) 6.25-15 MG/5ML Syrup Take 5 mL by mouth daily as needed. 13 9 Active raNITIdine (ZANTAC) 300 MG Tablet Take 300 mg by mouth 2 times daily. 3 9 Active fluticasone (FLONASE) 50 MCG/ACT Suspension 1-2 Sprays by Nasal route daily. Use in each nostril as directed. Active IPRATROPIUM BROMIDE HFA IN take 1 Vial by inhalation every 6 hours. Active budesonide (PULMICORT) 0.5 MG/2ML Suspension 0.5 mg by Nebulization route 2 times daily. Active arformoterol tartrate (BROVANA) 15 MCG/2ML Nebulizer Soln 15 mcg by Nebulization route 2 times daily. Active tamsulosin (FLOMAX) 0.4 MG Capsule Take 0.4 mg by mouth daily. Active HYDROcodone-ross taminophen (NORCO) 5-325 MG Tablet Take 1 Tab by mouth every 8 hours as needed for Moderate or more severe pain. 90 Tab 9 Active Social History Tobacco Use Types Packs/Day Years Used Date Smoking Tobacco: Never Assessed Sex and Gender Information Value Date Recorded Sex Assigned at Not on file Legal Sex Male 2:46 PM CDT Gender Identity Not on file Sexual Orientation Not on file Last Filed Vital Signs Vital Sign Reading Time Taken Comments Blood Pressure 132/84 02/12/2019 10:02 AM CDT Pulse 91 02/12/2019 10:02 AM CDT Temperature 36.4 ??C (97.6 ??F) 02/12/2019 10:02 AM C DT Respiratory Rate 22 02/12/2019 10:02 AM CDT Oxygen Saturation 97% 02/12/2019 10:02 AM CDT Inhaled Oxygen Concentration - - Weight - - Height - - Body Mass Index - - Plan of Treatment Health Maintenance Due Date Last Done Comments Hepatitis C Virus (HCV) Screening 1960 TdaP Immunization 1960 Colonoscopy 01/22/2005 Colorectal Cancer Screening 01/22/2005 Cologuard 01/22/2010 Immunochemical Fecal Occult Blood 01/22/2010 Zoster Immunization (1 of 2) 01/22/2010 PSA Discussion 01/22/2015 SARS-COV-2 Immunization (2022- season) 2023 07/08/2021 Influenza Immunization (Se[place] on Ended) 2024 Hepatitis B Immunization Aged Out No longer eligible based on patient's age to complete this topic Meningococcal Immunization (ACWY) Aged Out No longer eligible based on patient's age to complete this topic Pneumococcal Immunization Combined Aged Out No longer eligible based on patient's age to complete this topic Rotavirus Immunization Aged Out No lo nger eligible based on patient's age to complete this topic Insurance MEDICAID [place]ARE Member Subscriber Plan / Payer (Ef fective for All Dates) Name:Bentley Mesa Member ID:[id number] Relation to Subscriber:Self Name:Bentley Mesa Subscriber ID:[id number] Payer ID:[id number] Group ID:[id number] Type:Not on file Address: [facility] [id number] [facility] [place] [address] Care Teams Slag Production Worker Relationship Specialty Start Date End Date Bentley Kyle MD [address] [place] [address] PCP - General Internal Medicine 02/01/21
--- OUTSIDE RECORDS SUMMARY | 2024-10-14 06:00 | XMS_ITS | Encounter Summary ---
Author Organization [facility] Address [address] [place] [address] Care Team Providers Care Manager Risk Name Role Phone Bentley Kyle MD Primary Care Provider [phone] Reason for Visit * Reason Onset Date Comments mucus production 07/16/2022 Encounter Details Date Type Department Care Team (Late st Contact Info) Description 07/16/2022 Telephone [facility]3] Pulmonology [facility] [address] [place] [address] Carson Pineda MD [address] [place] [address] mucus production Social History Tobacco Use Types Packs/Day Years Used Date Smoking Tobacco: Never Smokeless Tobacco: Never Sex and Gender Information Value Date Recorded Sex Assigned at Not on file Gender Identity Not on file Sexual Orientation Not on file documented as of this encounter Miscellaneous Notes * Telephone Encounter - Eliz Alcala RN - 07/18/2022 1:16 PM CDT Spoke with pt's . Pt has been taking mucinex BID. Advised to f/u with Dr. Hummel. * Telephone Encounter - Carson Pineda MD - 07/17/2022 12:09 PM CDT He needs to take OTC Mucinex twice daily. He also needs to follow-up with his primary pulmonologistDr. Hummel or her BIOMETRICIAN Arpan Amanda for further management * Telephone Encounter - Kiki Posada, RN - 07/16/2022 3:52 PM CDT Pt called and states that he has a lot of clear mucus, especially after eating. The mucus chokes him. He states that he has decreased SOB since valve placement. Reducing prednisone and has stopped azithromycin. Still taking Daliresp documented in this encounter Plan of Treatment Not on file documented as of this encounter Visit Diagnoses Not on filedocumented in this encounter Care Teams Manager Risk Relationship Specialty Start Date End Date Bentley Kyle MD [address] [place] [id number] PCP - General Internal Medicine 04/18/21 documented as of this encounter
--- OUTSIDE RECORDS SUMMARY | 2024-10-14 06:00 | XMS_ITS | Encounter Summary ---
Author Organization [facility] Address [address] [place] [address] Care Team Providers Care Director Of Database Marketing Name Role Phone Unavailable Primary Care Provider Unavailabl e Reason for Visit * Reason Comments Establish Care Encounter Details Date Type Department Care Team (Late st Contact Info) Description 12/06/2020 4:00 PM HOMEOWNER ASSOCIATION MANAGER Office Visit [facility] Pulmonology [facility] [address] [place] [address] Carson Pineda MD [address] [place] [address] Chronic respiratory failure with hypoxia and hypercapnia (Primary Dx); Chronic obstructive pulmonary disease, unspecified COPD type; Personal history of tobacco use, presenting hazards to health; History of cocaine abuse; Severe obesity (BMI 35.0-39.9) with comorbidity; Acute deep vein thrombosis (DVT) of right lower extremity, unspecified vein Social History Tobacco Use Types Packs/Day Years [...] COVID-19? No / Unsure 12/06/2020 3:42 PM HOMEOWNER ASSOCIATION MANAGER documented as of this encounter Last Filed Vital Signs Vital Sign Reading Time Taken Comments Blood Pressure 128/80 12/06/2020 4:12 PM HOMEOWNER ASSOCIATION MANAGER Pulse 100 12/06/2020 4:12 PM HOMEOWNER ASSOCIATION MANAGER Temperature - - Respiratory Rate 17 12/06/2020 4:12 PM HOMEOWNER ASSOCIATION MANAGER Oxygen Saturation 97% 12/06/2020 4:12 PM HOMEOWNER ASSOCIATION MANAGER oxy 3L Inhaled Oxygen Concentration - - Weight 117.9 kg (260 lb) 12/06/2020 4:12 PM HOMEOWNER ASSOCIATION MANAGER Height 175.3 cm (5' 9 ) 12/06/2020 4:12 PM HOMEOWNER ASSOCIATION MANAGER Body Mass Index 38.4 12/06/2020 4:12 PM HOMEOWNER ASSOCIATION MANAGER documented in this encounter Progress Notes * Carson Pineda MD - 12/06/2020 3:58 PM CST Pulmonary Initial Outpatient Evaluation 12/07/2020 1:35 PM Patient Name: Bentley Mesa 1960 Primary Care Physician: No primary care provider on file. Date of Service: 12/07/2020 Chief Complaint Patient presents with ??? Establish Care Impression: 1. Chronic hypoxemic and hypercarbic respiratory failure necessitating nocturnal noninvasive ventilation using a Trilogy machine 2. Chronic obstructive pulmonary disease 3. History of tobacco use 4. History of cocaine use 5. Severe obesity 6. Right lower extremity deep venous thrombosis Recommendations: 1. Extensively reviewed and summarized his clinical course, although extremely limited by a lack ofrecent comprehensive medical records which have been requested for my personal review especially recent pulmonary function testing, CT chest imaging and arterial blood gas analysis. At the outset, anna need repeat pulmonary function testing and CT chest imaging unless his recent records are sufficient to arrive at a conclusion regarding his candidacy for endobronchial valve placement 2. For now, continue COPD management with a combination of nebulized aformoterol twice daily, nebulized budesonide twice daily and nebulized glycopyrrolate twice daily in conjunction with DuoNebs forrescue bronchodilatation. Discussed the possibility of adding daily Daliresp 500 mcg daily, he is agreeable to proceed accordingly 3. Continue oral azithromycin 3 times a week as previously prescribed for severe chronic obstructive pulmonary disease 4. Wean oxygen as tolerated for an SpO2 of 88-92%, continue with nocturnal noninvasive ventilation using his Trilogy machine; current settings for his machine have been requested as well 5. The implications and prerequisites of bronchoscopic lung volume reduction with [place] endobronchial valve placement have been discussed at length, including the step gutierrez approach to determining his candidacy both physiologically and radiographically following which a 4-day hospital stay will bemandatory if indeed valve placement is successful real-time intraoperatively using the Chartis system. My primary concern is his longstanding hypercapnic respiratory failure that would likely be the main obstacle in his qualification process, although I am awaiting his outside records before arriving at any final conclusion. Additionally, his poorly controlled COPD at baseline also does not make him an ideal candidate given his recurrent recent exacerbations. HPI: Patient is a 60 y.o. male who is seen in consultation for evaluation of his candidacy for bronchoscopic lung volume reduction using [place] endobronchial valves. Notably, he has a longstanding diagnosis of chronic obstructive pulmonary disease with chronic hypoxemic and hypercarbic respiratory failure for which he remains on continuous oxygen supplementation at 3 L/minute during the daytime, in conjunction with nocturnal noninvasive ventilation using a home Trilogy machine. Interestingly, he was also evaluated for lung transplantation sometime within the last few years but was deemed a poor candidate for the same for unclear reasons, those records are not available currently for my review. At baseline, he endorses dyspnea on exertion with minimal activity corresponding to an mMRC score of 4, although he denies any chronic cough, expectoration, fever, chills, chest pain or hemoptysis. He remains on an entirely nebulized long-acting bronchodilator regimen inclusive of a formoterol, budesonide and glycopyrrolate, but continues to necessitate his DuoNebs every 4-6 hours in conjunction with his albuterol MDI up to 4 times a day. He was recently hospitalized at [facility] and diagnosed with a right lower extremity deep venous thrombosis approximately 3 weeks ago for which he currently remains on oral apixaban. He is a former smoker, and smoked 1 pack of cigarettes a day for 47 years before he quit smoking [id number]. He also has a heavy history of smoking recreational cocaine for the same 47 years, but quit doing so around the time of smoking cessation. His last pulmonary function tests were approximately 1year ago, and his primary fleet service manager is Dr. Montenegro. He reports necessitating long-term oral prednisone for at least 4-6 months within the last year. Asthma Questionnaire: In the past 4 weeks, how much of the time did your asthma keep you from getting as much done at work, school or at home? 1. All of the time 2. Most of the time 3. Some of the time 4. A little of the time 5. None of the time Answer: 2 During the past 4 weeks, how often have you had shortness of breath? 1. More than once a day 2. Once a day 3. 3 to 6 times a week 4. Once or twice a week 5. Not at all Answer: 1 During the past 4 weeks, how often did your asthma symptoms (wheezing, coughing, shortness of breath, chest tightness or pain) wake you up at night or earlier than usual in the morning? 1. 4 or more nights a week 2. 2 to 3 times a week 3. Once a week 4. Once or twice 5. Not at all Answer: 1 During the past 4 weeks, how often have you used your rescue inhaler or nebulizer medication (such as albuterol)? 1. 3 or more times per day 2. 1 or 2 times per day 3. 3 or 4 times per week 4. Once a week or less 5. Not at all Answer: 1 How would you rate your asthma control during the past 4 weeks? 1. Not controlled at all 2. Poorly controlled 3. Somewhat controlled 4. Well controlled 5. Completely controlled Answer: 3 TOTAL SCORE: 8 Past Medical History: Diagnosis Date ??? Community [...] file Occupational History ??? Not on file Social Needs ??? Financial resource strain: Not on file ??? Food insecurity Worry: Not on file Inability: Not on file ??? Transportation needs Medical: Not on file Non-medical: Not on file Tobacco Use ??? Smoking status: Never Smoker ??? Smokeless tobacco: Never Used Substance and Sexual Activity ??? Alcohol use: Not on file ??? Drug use: Not on file ??? Sexual activity: Not on file Lifestyle ??? Physical activity Days per week: Not on file Minutes per session: Not on file ??? Stress: Not on file Relationships ??? Social connections Talks on phone: Not on file Gets together: Not on file Attends yarsanism service: Not on file Active member of club or organization: Not on file Attends meetings of clubs or organizations: Not on file Relationship status: Not on file ??? Intimate partner violence Fear of current or ex partner: Not on file Emotionally abused: Not on file Physically abused: Not on file Forced sexual activity: Not on file Other Topics Concern ??? Not on file Social History Narrative ??? Not on file Current Medications: Current Outpatient Medications Medication Sig Dispense Refill ??? roflumilast (DALIRESP) 500 mcg Tablet Take 1 Tablet (500 mcg) by mouth daily. 30 Tablet 5 ??? albuterol (PROVENTIL,VENTOLIN) 0.63 mg/3 mL Solution for Nebulization Take 0.63 mg by inhalation one time only. ??? arformoteroL (Brovana) 15 mcg/2 mL Solution for Nebulization Take 15 mcg by inhalation one timeonly. ??? budesonide (PULMICORT RESPULE) 0.25 mg/2 mL Suspension for Nebulization Take by inhalation 2 times daily. ??? HYDROcodone-acetaminophen 2.5-325 mg Tablet Take by mouth. No current facility-administered medications for this visit. Medication Allergies: Allergies Allergen Reactions ??? Oxycodone Hives He is not a tobacco user. PHYSICAL EXAMINATION BP 128/80 (BP Location: Left arm, Patient Position (BP): Sitting, BP Cuff Size: Adult) Pulse 100 Resp 17 Ht 5' 9 (1.753 m) Wt 117.9 kg (260 lb) SpO2 97% Comment: oxy 3L BMI 38.40 kg/m?? General: Alert and stable, appears in no acute distress. HEENT: Normocephalic and atraumatic. Oropharynx is normal with a Mallampatti Class 3 anatomy. Neck: Supple, trachea midline, no adenopathy, thyroid normal. No jugular venous distension. Lungs: Bilateral equal but decreased breath sounds to auscultation. No crackles or wheeze. Heart: Heart sounds are normal and regular. No audible murmurs. Abdomen: Soft and Non-Tender. No hepatosplenomegaly. Bowel sounds are present and normal. Extremities: No cyanosis, clubbing or edema Skin: Skin color and texture appears normal, no rashes or erythema. Lymph Nodes: Cervical, supraclavicular nodes normal. Neurologic: Non focal. Problem List Chronic obstructive pulmonary disease I have personally reviewed all applicable data including labs, imaging studies, PFTs as well as sleep data where applicable, including individual tracings and waveforms. On the day of the visit, I spent 60 (1 hr) minutes providing care to this patient including Preparing to see the patient, Performing a medically appropriate examination and/or evaluation, Counseling and educating the patient/family/caregiver, Ordering medications, tests or procedures and Documenting clinical information in the medical record. Please do not hesitate to contact me with any clarifications or questions. Carson Pineda MD Pulmonary, Critical Care, Neurocritical Care & Sleep Medicine [facility], [address], [place] [address] Off: [phone] Pager: [phone] OWNER ASSOCIATION MANAGER documented in this encounter Miscellaneous Notes * Patient Instructions - Carson Pineda MD - 12/06/2020 4:32 PM CST Obtain recent records from [facility] OWNER ASSOCIATION MANAGER documented in this encounter Plan of Treatment Not on file documented as of this encounter Visit Diagnoses Diagnosis Chronic respiratory failure with hypoxia and hypercapnia- Primary Chronic obstructive pulmonary disease, unspecified COPD type Personal history of tobacco use, presenting hazards to health History of cocaine abuse Cocaine abuse, in remission Severe obesity (BMI 35.0-39.9) with comorbidity Acute deep vein thrombosis (DVT) of right lower extremity, unspecified vein documented in this encounter
--- OUTSIDE RECORDS SUMMARY | 2024-10-14 06:00 | XMS_ITS | Encounter Summary ---
Author Organization [facility] Healthcare Address [address] [place] [address] Care Team Providers Care Product Safety Compliance Leader Name Role Phone Aristeo Khan MD Primary Care Provider Ravi Queen MD Unavailable [phone] Reason for Visit * Reason Comments Med Management Follow-up Encounter Details Date Type Department Care Team (Latest Contact Info) Description 09/01/2024 8:37 AM TOBACCO SWEEPER - 09/01/2024 11:59 PM TOBACCO SWEEPER Hospital Encounter [facility] [address] [facility] [address], [facility] [place] [address] Kenney Holder MD [address] [place] [address] [address] [place] [address] MCFP (current) use of opiate analgesic (Primary Dx); [...] on file Legal Sex Male 8:01 PM TOBACCO SWEEPER Gender Identity Not on file Sexual Orientation Not on file documented as of this encounter Last Filed Vital Signs Vital Sign Reading Time Taken Comments Blood Pressure 142/82 09/01/2024 9:08 AM TOBACCO SWEEPER Pulse 85 09/01/2024 9:08 AM TOBACCO SWEEPER Temperature - - Respiratory Rate 22 09/01/2024 9:08 AM TOBACCO SWEEPER Oxygen Saturation 95% 09/01/2024 9:08 AM TOBACCO SWEEPER Inhaled Oxygen Concentration - - Weight - - Height - - Body Mass Index - - documented in this encounter Discharge Instructions * Attachments The following attachments cannot be sent through Care Everywhere. * Opioid Safety (Supervisor Cured Meats) (Swiss) documented in this encounter Medications at Time [...] ADMINISTER AT THE SAME TIME(S) EACH DAY HYDROcodone-aceta minophen (NORCO) 5-325 mg per tabletIndications :Pain Take 1 tablet by mouth 4 (four) times a day as needed for pain 120 tablet 09/09/2024 HYDROcodone-aceta minophen (NORCO) 5-325 mg per tabletIndications :Pain Take 1 tablet by mouth 4 (four) times a day as needed for pain 120 tablet 10/09/2024 5 HYDROcodone-aceta minophen (NORCO) 5-325 mg per tabletIndications :Pain Take 1 tablet by mouth 4 (four) times a day as needed for pain 120 tablet 11/08/2024 5 ipratropium (ATROVENT HFA) 17 mcg/actuation inhaler Inhale [...] tablet (150 mg total) by mouth 05/08/2017 documented as of this encounter Ordered Prescriptions Prescription Sig Dispense Quantity Refills Last Filled Start Date End Date HYDROcodone-acetam inophen (NORCO) 5-325 mg per tabletIndications: Pain Take 1 tablet by mouth 4 (four) times a day as needed for pain 120 tablet 11/08/2024 12/08/2024 HYDROcodone-acetam inophen (NORCO) 5-325 mg per tabletIndications: Pain Take 1 tablet by mouth 4 (four) times a day as needed for pain 120 tablet 10/09/2024 11/08/2024 HYDROcodone-acetam inophen (NORCO) 5-325 mg per tabletIndications: Pain Take 1 tablet by mouth 4 (four) times a day as needed for pain 120 tablet 09/09/2024 documented in this encounter Discharge Disposition Disposition Code Departure Means Destination Discharge to home or self care documented in this encounter Progress Notes * Kenney Holder MD - 09/01/2024 9:30 AM CST Treatment Summary Brief assessment and plan: generalized chronic pain on stable dose, long-term opioids; pending right genicular RFA for chronic knee pain The following imaging/procedural orders were placed during this visit: No orders of the defined types were placed in this encounter. Medications: [place] 5-325 QID PRN Follow up: 3 months Patient Name: Bentley Mesa Age: 64 y.o. [facility] Return Visit Subjective Bentley [...] below for pain questionnaire answers. Pain Descriptors: Sharp, Burning Pain Location: Other (Comment) (upper back and right knee) Aggravating Factors: Walking, Standing Alleviating factors: rest, taking medications, and Activity modification Pain Radiating Towards: denies Regarding current medication regimen, patient reports pain is greatly relieved (ie >75%) with current regimen. Current prescription(s) via this clinic: Bol[place]brook 5-325 QID PRN Changes made during last visit? No Side effects? No OME (if applicable): 20 Last UDS: 02/2024, consistent Of note, seen by Orthopedics in the past (Dr. Robles), per that note he is indicated for knee replacement surgery but needed to have medical clearance from his hat conditioner secondary to COPD. This was in 2019, I do not see any follow up from this. Per patient, hat conditioner did express some concern about his ability to undergo genicular RFA with sedation, sounds like the impression was that this would be a general anesthetic rather than mild/moderate sedation. THERAPIES TO DATE INTERVENTIONS (this clinic only): [...] [] Fioricet [] Meloxicam [] Carbamazepine [x] Bol[place]brook [] Fentanyl [] Metaxalone [] Diclofenac [] [...] least 12 months with inadequate relief. Bentley Hamlinnes's history was reviewed and updated as appropriate including past medical history,past surgical history, social history, family history, allergies, and home medication list. A review of systems was completed, reviewed, and scanned into the chart. ALVIN, PEG Scale, and Current Opioid Misuse Measure (COMM) reviewed during this encounter. Modified Oswestry Low Back Pain Score: 29 Objective Vitals: 09/01/24 0908 BP: 142/82 Pulse: 85 Resp: 22 SpO2: 95% PHYSICAL EXAM *abbreviated physical exam given nature [...] Generalized chronic pain Pending right genicular RFA for chronic right knee pain Long-term use of opioids COPD on oxygen Patient presents today primarily for medication refill, see previous encounter note outlining my concerns regarding narcotics and chronic lung disease. Has been receiving Bolingbrook from this clinic sinceat least [address] Queen, this was a prescription that I inherited upon joining the practice. Patient and continues to deny any side effects or respiratory depression from Bolingbrook, still remains at a relatively low dose and we will not increase going forward. For this reason I am okay withthree-month refill. Pending R genicular RFA. Of note, this procedure will be performed under mild sedation with continuous monitoring and supplemental oxygen. We will reach out to hat conditioner to clarify his candidacy. Kenney Holder MD Interventional Pain Management [facility] PLAN JUSTIFICATION At this time, our clinic will (or will continue to) provide an opioid prescription for treatment ofthis patient's pain. This is a condition that A) has failed to respond to non-opioid alternatives and B) necessitates treatment for longer than 7 days. Both [place] PDMP and pain contract reviewed and appropriate. [...] is aware and expressed understanding. Prescription provided: Bolingbrook 5-325 QID PRN Duration of prescription: 3 months Urine sample obtained today: [facility] Best Practice documentation Blood pressure in clinic today was BP: 142/82. This classifies as a hypertensive BP reading (SBP > 140 OR DBP > 90). Recommended lifestyle modifications and discussion with PCP. Patient is not a tobacco user. PATIENT EDUCATION Learning needs assessment was performed and no barriers identified. Explained diagnosis and treatment plan. Patient expressed understanding and was able to teach back. I personally spent a total of 10 minutes of [id number]-uz-face time performing a review of the recordand/or discussion with the patient/caregiver as described above. Total time spent with patient 15 minutes, total time in counseling 10 minutes. COLDFUSION: Radar Systems Engineer completed with [employer], dictation proofread to best of my ability. CCO SWEEPER documented in this encounter Nursing Notes * Liudmila Espinoza RN - 09/01/2024 9:30 AM CST Level 2 Escorted patient to exam room. Obtained vital signs. Reviewed patient's allergies and current medications. Obtained and verified patient's simple medical/surgical history. Confirmed the reason for visit with the patient. Obtained the following screening assessments: [x] Modified Oswestry Low Back Pain Questionnaire [] PMC Intake Questionnaire [] PMC Follow up Questionnaire [] Fall Risk Assessment (Tiny, Jay Walton) [x] Depression/Anxiety Assessment (GAD7, PHQ-9, Trego Suicide, Mendez Depression) [] Disability Scale [] CAGE [] SOAPP-R Additional tasks included: [] Random medication adherence check (pill verification by two nurses) [] Work/school note written [] Pended CT/MRI/MRA order [] Pain assessment for multiple sites [x] COMM and PEG assessment Vital Signs Pulse: 85 Resp: 22 BP: 142/82 SpO2: 95 % Post-visit transport confirmed with the patient. Total time spent for patient care, education, and care coordination was approximately 11-20 minutes. CCO SWEEPER documented in this encounter Plan of Treatment [...] as of this encounter Visit Diagnoses Diagnosis MCFP (current) use of opiate analgesic- Primary Chronic pain of right knee documented in this encounter Discontinued Medications Medication Sig Discontinue Reason Start Date End Da te HYDROcodone-acetaminophe n (NORCO) 5-325 mg per tabletIndications:Pain Take 1 tablet by mouth 4 (four) times a day as needed for pain Reorder 06/11/2024 09/01/2024 HYDROcodone-acetaminophe n (NORCO) 5-325 mg per tabletIndications:Pain Take 1 tablet by mouth 4 (four) times a day as needed for pain Reorder 07/11/2024 09/01/2024 HYDROcodone-acetaminophe n (NORCO) 5-325 mg per tabletIndications:Pain Take 1 tablet by mouth 4 (four) times a day as needed for pain Reorder 08/10/2024 09/01/2024 documented as of this encounter Care Teams Product Safety Compliance Leader Relationship Specialty Start Date End Date Aristeo Khan MD [address] [place] [address] PCP - General 06/28/22 Ravi Queen MD [address] [place] [address] [place] [id number] Anesthesiologist Pain Management 09/05/22 documented as of this encounter
--- OUTSIDE RECORDS SUMMARY | 2024-10-14 06:00 | XMS_ITS | Encounter Summary ---
Author Organization [facility] Address [address] [place] [address] Care Team Providers Care Grade Setter Name Role Phone Sathya Kyle MD Primary Care Provider [phone] Reason for Visit * Auth/Cert Specialty Diagnoses / Procedures Referred By Emmie gomez Referred To Contact Cardiology [facility] [address] [place] [address] Referral ID Status Reason Start Date Expiration Date Visits Re quested Visits Authorized [id number] 1 1 Encounter Details Date Type Department Care Team (Latest Contact Info) Description 04/18/2021 6:36 AM CDT - 04/20/2021 4:21 PM CDT Hospital Encounter [facility] [address] [place] [address] Marlyn Pineda MD [address] [facility] [address] [place] [address] Hilda Carpenter MD [address] [facility] [address] [place] [address] Centrilobular emphysema Discharge Disposition: Home or Self Care Social [...] have Coronavirus / COVID-19? No / Unsure 04/18/2021 6:20 AM CDT documented as of this encounter Last Filed Vital Signs Vital Sign Reading Time Taken Comments Blood Pressure 118/81 04/20/2021 11:16 AM CDT Pulse 100 04/20/2021 3:29 PM CDT Temperature 37.2 ??C (98.9 ??F) 04/20/2021 11:16 AM C DT Respiratory Rate 18 04/20/2021 3:29 PM CDT Oxygen Saturation 91% 04/20/2021 11:16 AM CDT Inhaled Oxygen Concentration - - Weight 114.8 kg (253 lb) 04/20/2021 4:10 AM CDT Height 175.3 cm (5' 9 ) 04/18/2021 7:05 AM CDT Body Mass Index 37.36 04/18/2021 7:05 AM CDT documented in this encounter Discharge Summaries * Hilda Carpenter MD - 04/20/2021 11:11 AM CDT [facility] Adult Hospitalist Discharge Summary Sathya Mesa 61 y.o. male 1960 CSN: [id number] Date of Admission: 04/18/2021 Date of Discharge: 04/20/2021 Discharging Physician: Hilda Carpenter MD LOS: 2 days PCP: Sathya Kyle MD Activity: activity as tolerated. Dispo: home Diet: DIET GENERAL Effective Now Code Status at Discharge: Full Code Wound Care: None needed Admitting Dx: Centrilobular emphysema Discharge Diagnoses: Active Hospital Problems Diagnosis ??? Chronic respiratory failure with hypoxia and hypercapnia ??? Glaucoma ??? Chronic arthritis of knee ??? Status post bronchoscopy ??? Centrilobular emphysema BPH Resolved Hospital Problems No resolved problems to display. Discharge medications and new prescriptions: Medication List START taking these medications azithromycin 500 mg tablet Commonly known as: ZITHROMAX Take 1 Tablet (500 mg) by mouth every Saturday, Saturday, and Saturday. Start taking on: April 21, 2021 Signed by: Hilda Carpenter MD Quantity: 30 Tablet Refills: 0 CONTINUE taking these medications albuterol 0.63 mg/3 mL Solution for Nebulization Commonly known as: PROVENTIL,VENTOLIN Take 0.63 mg by inhalation one time only. Refills: 0 ALPRAZolam 0.5 mg tablet Commonly known as: XANAX Take 0.5 mg by mouth 3 times daily as needed for Anxiety. Refills: 0 budesonide 0.25 mg/2 mL Suspension for Nebulization Commonly known as: PULMICORT RESPULE Take by inhalation 2 times daily. Refills: 0 dextromethorphan-guaiFENesin 30-600 mg Tablet Sustained Release 12HR Commonly known as: MUCINEX DM Take 1 Tablet by mouth every 12 hours. Refills: 0 HYDROcodone-acetaminophen 2.5-325 mg Tablet Take by mouth. Refills: 0 predniSONE 10 mg tablet Commonly known as: DELTASONE Take 10 mg by mouth daily. Refills: 0 promethazine 12.5 mg Tablet Commonly known as: PHENERGAN Take 12.5 mg by mouth every 6 hours as needed for Nausea/Emesis. Refills: 0 roflumilast 500 mcg Tablet Commonly known as: DALIRESP Take 1 Tablet (500 mcg) by mouth daily. Signed by: Marlyn Pineda MD Quantity: 30 Tablet Refills: 5 tamsulosin 0.4 mg capsule Commonly known as: FLOMAX Take 0.4 mg by mouth daily. Refills: 0 STOP taking these medications Brovana 15 mcg/2 mL Solution for Nebulization Generic drug: arformoteroL Where to Get Your Medications These medications were sent to [id number] - [address] [address] ?? azithromycin 500 mg tablet Consultants: IP CONSULT TO HOME CARE NEEDS Significant Diagnostic Studies This Admission: ?? CXR Increased opacity in the right apex is again visualized, unchanged. The right hilum is again mildly prominent. There is again volume loss of the right lung. No pneumothorax or pleural effusion is seen. Labs from this Hospitalization Needing Follow Up: ?? none Discharge Lab Data: No results found for: WBC, HGB, HCT, PLT, NA, CL, K, CO2, BUN, CREAT, GLUCOSE, INR, AST, ALT, CRP Discharge Exam: BP 137/84 (BP Location: Right arm, Patient Position (BP): Supine) Pulse (!) 132 Temp 99.4 ??F (37.4 ??C) (Oral) Resp 18 Ht 5' 9 (1.753 m) Wt 114.8 kg (253 lb) SpO2 93% BMI 37.36 kg/m?? Physical Exam: General appearance alert, cooperative, no distress, appears stated age Lungs clear to auscultation bilaterally Heart Tachy, regular Abdomen soft, non-tender. Bowel sounds normal. Extremities no edema Skin Skin color, texture, turgor normal. No rashes or lesions Hospital Course: 61 y.o. male with COPD presenting after an endobronchial valve placement. Patient has history of COPD with chronic respiratory failure. Patient reports that he wears 3 L of O2 at baseline. He was admitted after getting endobronchial valve placement. He was monitor in the hospital with serial CXR. No pneumothorax noted. Oxygen remains stable. Pt was DC to home and will follow-up with pulmonary as outpatient. Nutritional status and in-house recommendations: Current Diet and/or Nutritional Supplementation ordered: DIET GENERAL Effective Now Discharge Condition: stable. Follow-up: Sathya Kyle MD in 1 week. More than 30 minutes were spent in this discharge activity. Signed: Hilda Carpenter MD 04/20/2021, 11:11 AM documented in this encounter Discharge Instructions * Discharge Instructions* Hilda Carpentre MD - 04/20/2021 11:11 AM CDT Your discharging physician is Hilda Carpenter MD and may be reached at for any questions orconcerns until you see your doctor. FOLLOW-UP Follow up with Sathya Kyle MD in 1 week. Heart Patients: Weigh yourself everyday at the same time, with the same amount of clothing and after you have emptied your bladder. Keep a log of your daily weights and bring them with you to your physician appointments. Call your physician (*) if you have a weight gain of 3 pounds in one day (or 5pounds in 2 or more days) or (*) if you have increased shortness of breath or (*) if you have swelling in your feet, belly or legs. <<<Call 911 or go to the nearest emergency room if you have increased shortness of breath or chest pain or discomfort that is not relieved by nitroglycerin. Smoking Exposure: Patricia encourages all patients to decrease risks associated with smoking and second hand smoke exposure. If you smoke you are advised to quit. Ask your health care provider for advice if you need assistance to stop smoking. Avoid second-hand smoke exposure and do not let people smoke in your home. Please call [phone], our pulmonary rehabilitation department, to learn more about options to reduce your risks. ACTIVITY Your activity level is: increase activity as tolerated and no smoking. DIET Your diet is: DIET GENERAL Effective Now documented in this encounter Medications at Time of Discharge Medication Sig Dispensed Refills Start Date End Date azithromycin (ZITHROMAX) 500 mg tablet Take 1 Tablet (500 mg) by mouth every Saturday, Saturday, and Saturday. 30 Tablet 04/21/2021 tamsulosin (FLOMAX) 0.4 mg capsule Take 0.4 mg by mouth daily. promethazine (PHENERGAN) 12.5 mg Tablet Take 12.5 mg by mouth every 6 hours as needed for Nausea/Emesis. dextromethorphan-guaiFEN esin (MUCINEX DM) 30-600 mg Tablet Sustained Release [...] Nebulization Take by inhalation 2 times daily. HYDROcodone-acetaminophe n 2.5-325 mg Tablet Take by mouth. documented as of this encounter Progress Notes * Renae Lake RN - 04/20/2021 4:34 PM CDT Pt being DC'd home, no new R'sx given to pt. Went over D/C instructions w/pt, verbalized understanding. IV and tele D/C'd. Pt dressed in his own home clothes. Pt states that he has all of his belongings. Pt taken down via w/c by floor staff. * Marlyn Pineda MD - 04/20/2021 3:47 PM CDT Pulmonary Daily Progress Note Marlyn Pineda MD 04/20/2021 3:47 PM Patient Name: Sathya Mesa 1960 Attending Physician:Hilda Carpenter MD Primary Care Physician: Sathya Kyle MD Date of Admission: 04/18/2021 Date of Service: 04/20/2021 Impression: 1. Status post bronchoscopic lung volume reduction with endobronchial Spiration valve placement x3 in the right upper lobe 2. Chronic hypoxemic and hypercarbic respiratory failure necessitating nocturnal noninvasive ventilation using a Trilogy machine 3. Chronic obstructive pulmonary disease GOLD 3 4. History of tobacco use 5. History of cocaine use 6. Severe obesity Plan: 1. Reviewed his chest x-ray from today that demonstrates right-sided atelectasis that is commensurate with recent endobronchial valve placement, he is stable for discharge later today 2. Resume his home COPD regimen of nebulized bronchodilation on discharge 3. Continue oral azithromycin 3 times a week 4. He is okay to resume nocturnal home ventilation using his Trilogy machine 5. Wean oxygen for an SpO2 88-92% 6. He needs outpatient pulmonary follow-up with me in approximately 4 weeks, and may call our office before then for any worsening respiratory symptomatology Subjective: Patient currently remains on supplemental oxygen at 3 L/minute and appears in no acute respiratory distress. No significant chest pain, hemoptysis or fever. Past Medical History, Surgical History & Family History reviewed, no changes. Review of systems unchanged. Objective: Blood pressure 118/81, pulse 100, temperature 98.9 ??F (37.2 ??C), temperature source Oral, resp. rate 18, height 5' 9 (1.753 m), weight 114.8 kg (253 lb), SpO2 91 %. 04/18 1900 - 04/20 0659 In: 660 [P.O.:660] Out: 1000 [Urine:1000] Intake/Output Summary (Last 24 hours) at 04/20/2021 1547 Last data filed at 04/20/2021 1202 Gross per 24 hour Intake 220 ml Output 150 ml Net 70 ml PHYSICAL EXAMINATION General: Alert and stable, appears in no acute distress. HEENT: Normocephalic and atraumatic. Neck: Supple, trachea midline, no adenopathy, thyroid normal. Lungs: Bilateral equal but decreased breath sounds to auscultation. No crackles or wheeze. Heart: Heart sounds are normal and regular. No audible murmurs. Extremities: No cyanosis, clubbing or edema Neurologic: Non focal. Medications fluticasone propionate, 1 Acme, BID latanoprost, 1 Drop, daily BEDTIME polyvinyl alcohol-povidon(PF), 1 Drop, BID benzocaine PF, , pre-proc one time EPINEPHrine, , tamsulosin, 0.4 mg, daily dextromethorphan-guaiFENesin, 1 Tablet, every 12 hours (2 times daily) enoxaparin, 0.5 mg/kg, every 24 hours roflumilast, 500 mcg, daily sodium chloride, 5 mL, every 12 hours (2 times daily) sodium chloride, 5 mL, see admin instructions sodium chloride 0.9 %, 25 mL, see admin instructions dextrose 5 % in water, 25 mL, see admin instructions azithromycin, 500 mg, every Mon, Wed, Fri ipratropium-albuteroL, 3 mL, resp, 3 times daily ipratropium-albuteroL, , naloxone, 0.1 mg, see admin instructions budesonide, 0.25 mg, resp, 2 times daily Imaging: I have personally reviewed all relevant imaging Results for orders placed or performed during the hospital encounter of 04/18/21 XR CHEST PA AND LATERAL 2 VW Narrative CHEST 2 VIEWS DATE: 04/20/2021 6:05 AM HISTORY: Postop. COMPARISON: 04/19/2021. FINDINGS: Increased opacity in the right apex is again visualized, unchanged. The right hilum is again mildly prominent. There is again volume loss of the right lung. No pneumothorax or pleural effusion is seen. Impression IMPRESSION: No interval change. DICTATION LOCATION: Location 1 - [facility] XR CHEST PA OR AP 1 VW [...] lobe atelectasis. DICTATION LOCATION: Location 2 - [facility] Medical Problems: Patient Active Problem List Diagnosis Code ??? Lung nodule R91.1 ??? Centrilobular emphysema J43.2 ??? Chronic hypoxemic respiratory failure J96.11 ??? Glaucoma H40.9 ??? Chronic respiratory failure with hypoxia and hypercapnia J96.11, J96.12 ??? Status post bronchoscopy Z98.890 Hospital Problem List Principal Problem: Centrilobular emphysema Active Problems: Chronic hypoxemic respiratory failure Glaucoma Chronic respiratory failure with hypoxia and hypercapnia Status post bronchoscopy Marlyn Pineda MD Pulmonary, Critical Care, Neurocritical Care & Sleep Medicine [place] [address] Off: [phone] Pager: [phone] * Marlyn Pineda MD - 04/19/2021 7:02 PM CDT Pulmonary Daily Progress Note Marlyn Pineda MD 04/19/2021 7:02 PM Patient Name: Sathya Mesa 1960 Attending Physician:Hilda Carpenter MD Primary Care Physician: Sathya Kyle MD Date of Admission: 04/18/2021 Date of Service: 04/19/2021 Impression: 1. Status post bronchoscopic lung volume reduction with endobronchial Spiration valve placement x3 in the right upper lobe 2. Chronic hypoxemic and hypercarbic respiratory failure necessitating nocturnal noninvasive ventilation using a Trilogy machine 3. Chronic obstructive pulmonary disease GOLD 3 4. History of tobacco use 5. History of cocaine use 6. Severe obesity Plan: 1. Reviewed his chest x-ray from today that demonstrates right-sided atelectasis which is an expected outcome of endobronchial valve placement, recommend follow-up chest x-ray tomorrow 2. Continue COPD management with nebulized budesonide twice daily and scheduled duonebs 3. Continue oral azithromycin 3 times a week 4. He has been advised to temporarily pause using his Trilogy machine tonight in an effort to mitigate excessive airway pressures in the context of atelectasis post endobronchial valve placement 5. Wean oxygen for an SpO2 88-92% Subjective: Patient reports having an episode of anxiety accompanied by dyspnea overnight, currently remains onsupplemental oxygen at 3 L/minute and appears in no acute respiratory distress. Tolerated his home Trilogy machine last night. Past Medical History, Surgical History & Family History reviewed, no changes. Review of systems unchanged. Objective: Blood pressure (!) 119/98, pulse (!) 116, temperature 98.8 ??F (37.1 ??C), temperature source Oral,resp. rate 18, height 5' 9 (1.753 m), weight 117.9 kg (260 lb), SpO2 96 %. 04/18 0700 - 04/19 1859 In: 1190 [P.O.:1190] Out: 1250 [Urine:1250] Intake/Output Summary (Last 24 hours) at 04/19/2021 1902 Last data filed at 04/19/2021 0923 Gross per 24 hour Intake 560 ml Output 800 ml Net -240 ml PHYSICAL EXAMINATION General: Alert and stable, appears in no acute distress. HEENT: Normocephalic and atraumatic. Neck: Supple, trachea midline, no adenopathy, thyroid normal. Lungs: Bilateral equal but decreased breath sounds to auscultation. No crackles or wheeze. Heart: Heart sounds are normal and regular. No audible murmurs. Extremities: No cyanosis, clubbing or edema Neurologic: Non focal. Medications fluticasone propionate, 1 Acme, BID latanoprost, 1 Drop, daily BEDTIME polyvinyl alcohol-povidon(PF), 1 Drop, BID benzocaine PF, , pre-proc one time EPINEPHrine, , tamsulosin, 0.4 mg, daily dextromethorphan-guaiFENesin, 1 Tablet, every 12 hours (2 times daily) enoxaparin, 0.5 mg/kg, every 24 hours roflumilast, 500 mcg, daily sodium chloride, 5 mL, every 12 hours (2 times daily) sodium chloride, 5 mL, see admin instructions sodium chloride 0.9 %, 25 mL, see admin instructions dextrose 5 % in water, 25 mL, see admin instructions azithromycin, 500 mg, every Mon, Wed, Fri ipratropium-albuteroL, 3 mL, resp, 3 times daily ipratropium-albuteroL, , naloxone, 0.1 mg, see admin instructions budesonide, 0.25 mg, resp, 2 times daily Imaging: I have personally reviewed all relevant imaging Results for orders placed or performed during the hospital encounter of 04/18/21 XR CHEST PA AND LATERAL 2 VW Narrative EXAMINATION: XR CHEST PA AND LATERAL 2 VW, 04/19/2021 6:19 AM HISTORY: Post-Operative. See Reason for Exam COMPARISON: Comparison is made with a study from 04/18/2021 and 03/23/2021. FINDINGS: Endobronchial valves in the superior right mediastinum are unchanged. There are evolving right perihilar and right upper lobe opacities. The left lung is clear. There is no pleural effusion or pneumothorax. The cardiomediastinal silhouette is unchanged. INCIDENTAL FINDINGS: None. Impression IMPRESSION: No pneumothorax. Evolving right perihilar and right upper lobe opacities may represent atelectasis or post bronchoscopy changes. DICTATION LOCATION: Location 1 - [facility] XR CHEST PA OR AP 1 VW [...] upper lobe atelectasis. DICTATION LOCATION: Location 2 [facility] Medical Problems: Patient Active Problem List Diagnosis Code ??? Lung nodule R91.1 ??? Centrilobular emphysema J43.2 ??? Chronic hypoxemic respiratory failure J96.11 ??? Glaucoma H40.9 Hospital Problem List Principal Problem: Centrilobular emphysema Active Problems: Chronic hypoxemic respiratory failure Glaucoma Marlyn Pineda MD Pulmonary, Critical Care, Neurocritical Care & Sleep Medicine [facility], Shay Suarez Off: [phone] Pager: [phone] * Hilda Carpenter MD - 04/19/2021 3:32 PM CDT [facility] Adult Hospitalist Progress Note Admit Date: 04/18/2021 Date of Note: 04/19/2021, 3:32 PM LOS: 1 day Previous history of present illness and review of systems have been reviewed today as documented inthe H&P on 04/18/2021; medications, labs, studies, notes, orders and consults have been reviewed.I have reviewed the notes from admission. Subjective: Pt reports having bad headache, also having worsening anxiety and panic attack. Breathing is otherwise stable. Objective: BP (!) 128/97 (BP Location: Right arm, Patient Position (BP): Lying right side) Pulse (!) 110 Temp 98.8 ??F (37.1 ??C) (Oral) Resp 18 Ht 5' 9 (1.753 m) Wt 117.9 kg (260 lb) SpO2 96% BMI 38.40 kg/m?? Temp (24hrs), Av.5 ??F (36.9 ??C), Min:97.8 ??F (36.6 ??C), Max:99 ??F (37.2 ??C) Exam: General: Alert, no distress. Heart: Regular rate and rhythm, S1, S2 normal Lungs: Clear to auscultation bilaterally Abdomen: Soft, non-tender. Extremities: No edema Data Base: I have reviewed all new labs and studies resulted and pertinent ones are noted below Assessment/Plan of Actively Managed Problems COPD: with severe emphysematous changes -Status post right sided endobronchial valve placement. Dr. Pineda from pulmonary following -Continue nebulizer, Pulmicort, Daliresp ?? Chronic hypoxemic and hypercapnic respiratory failure: On 3 L of nasal cannula oxygen at baseline -Trilogy machine at night Glaucoma: -Restart eyedrops Nasal congestion/rhinitis: -Flonase ?? Chronic arthritis of right knee: -Continue as needed hydrocodone ?? BPH: -flomax Nutrition: Current Diet and/or Nutritional Supplementation ordered: DIET GENERAL Effective Now DVT Prophylaxis - Enoxaparin Elias catheter:absent Lines: Peripheral IV PT POC OT POC Activity Order: Present Activity: in bed (04/19/21917) Current Code Status -Full Code Plan discussed with patient, questions answered. Spoke with spouse on phone Current Planned Disposition - Home in 2 days if no pneumothorax Hilda Carpenter MD * Hannah Mason RN - 04/18/2021 6:28 PM CDT Pt transferred from [facility] s/p Bronchoscopy. POC reviewed with Pt. Pt A&OX4, ST on 3l NC ,VSS. No acute events this shift. Pt free from fall & injury. Pt complained of pain x1, PRN Snyder given for relief. CXR done at bedside. Pt in bed with call light within reach, monitoring. * Hannah Mason RN - 04/18/2021 4:25 PM CDT ?UNDRESS AND ASSESS FOR ALL ADMISSIONS AND TRANSFERS: Remove all existing dressings and assess all wounds upon admission (unless instructed by physician). Undress and Assess performed by: bedside coworker Hannah LEYVA and bedside coworker Kathryn MANAGER [employer]ING upon transfer to [facility] Billy Score: Billy Score: 22 (04/18/21 1619) 1. Patient does not have skin breakdown. ??? If yes o Description of wound location and appearance: o LDA added for any open areas and for non-blanching pink/red or purple areas? No (please note, heels, ankles, knees, hips, sacrum, coccyx, ischium, gluteal, occiput, spine and all skin folds are high risk for skin breakdown) and consult wound care services 2. Was wound photographed: No 3. Is a specialty support surface utilized? No If yes, which one?: no i.e. impaired mobility, bariatric, malnourished, existing pressure injury. 4. Is the patient a paraplegic/quadriplegic? No If so, if stable spine immediately place on specialty surface. If unstable spine or new spinal injury, consult physician (per facility process) and consult wound care services. 5. Is a medical esthetician in place?no If yes, remove device/brace/splint to check skin underneath, obtain provider order if necessary. 6. Does the patient have a wound VAC (negative pressure wound therapy)? No If yes, please consult wound care services and follow facility process. 7. Does the patient have an ostomy? No If yes, please consult wound care services. 8. Was the Skin Care Prevention: Pressure Injury Pathway initiated and appropriate interventions selected? (i.e. protective foams, turn patient q 2 h, elevate heels etc.) No 9. Was the Skin Care Treatment: Pressure Injury/Lower Extremity Ulcer Pathway initiated, and appropriate interventions selected? No(i.e. cleanse and apply silicone border dressing to skin tears, cleanse and apply antifungal to affected skin folds and apply soft linen or Interdry between folds etc.). Wound care consult was not initiated. [facility] Skin Care Injury Prevention and Treatment Protocol [facility] Approved by: [facility] - Medical Executive Committee Approval Date: 10/29/2019 ORDERS ARE ENTERED ???PER PROTOCOL?? Nursing Orders: o When a patient age 18 years or older has: ; a documented Billy score of 18 or less or a Billy sub score of 2 or 1, ; or a documented condition on the problem list of: diabetes, malnutrition or cachectic, paralysis,spinal cord disorder/injuries or muscle/neurological disease, THEN, the RN will order the Skin Care/Pressure Injury Prevention Pathway and initiate all appropriate interventions as per the Billy Risk Assessment Algorithm. o When a patient age 18 years or older has a wound requiring treatment, the RN and Wound Care Nurses may order the Skin Care/Pressure Ulcer/Lower Extremity Ulcer Treatment Pathway and use appropriatetreatments found in the Nursing Algorithm. o The Wound Care Nurse may also order treatments found in the Wound Care Algorithm. * Hannah Mason RN - 04/18/2021 4:25 PM CDT Images from the original note were not included. ?03/2020[facility] Adult IV Flush Protocol [facility] Approved by: [facility] - Medical Executive Committee Approval Date: 03/14/2020 ORDERS ARE ENTERED ???PER PROTOCOL?? Enter the protocol in the patient's electronic health record using [employer]: .adultivflushprotocol NURSING ORDERS Ok to utilize existing central venous access (example: Implanted Port, PICC) unless otherwise directed by provider. (Exclusion: Hemodialysis line may not be accessed without order from provider) Local Anesthetic for IV Initiation Panel (18 and over) ORDER SET Local Anesthetic for use to initiate IV (orders to discontinue 24 hours from initiation) ; Lidocaine 1% 0.3mL intradermal ONE TIME to numb area of IV catheter insertion or port access PRN ; Lidocaine 4% (L.M.X.4) applied topically ONE TIME 15 minutes prior to IV catheter insertion PRN Peripheral IV (Peripheral and Midline catheter) Flush Panel (18 yr and over) ORDER SET ; Line care and maintenance o Sodium chloride 0.9% (normal saline) flush 5 mL every 12 hours when locked o Sodium chloride 0.9% (normal saline) flush 5 mL PRN before and after medication administration orto verify line patency ; Carrier fluid (select most appropriate fluid for capability with medications) o Sodium chloride 0.9% (normal saline) 250 mL carrier bag. - Infuse 25 mL at a rate of IVPB administration to flush as needed to complete the IVPB and/or may keep rate at KVO (10mL/hr) to minimize frequent line interruption. o Dextrose 5% (D5W) 250 mL carrier bag - Infuse 25 mL at a rate of IVPB administration to flush as needed to complete the IVPB and/or may keep rate at KVO (10mL/hr) to minimize frequent line interruption. Central Lines (CVC, Sheath/Introducer, 3rd lumen of Hemodialysis catheter) Flush Panel (18 yr and over) ORDER SET ; Line care and maintenance o Sodium chloride 0.9% (normal saline) flush 10mL per lumen every 12 hours when locked. o Sodium chloride 0.9% (normal saline) flush 10mL per lumen before and after medication administration or to verify line patency. ; Carrier fluid (select most appropriate fluid for capability with medications) o Sodium chloride 0.9% (normal saline) 250 mL carrier bag. - Infuse 25 mL at a rate of IVPB administration to flush as needed to complete the IVPB and/or may keep rate at KVO (10mL/hr) to minimize frequent line interruption. o Dextrose 5% (D5W) 250 mL carrier bag: carrier bag - Infuse 25 mL at a rate of IVPB administration to flush as needed to complete the IVPB and/or may keep rate at KVO (10mL/hr) to minimize frequent line interruption. Central Lines (PICC, Implanted Port) Flush Panel (18 yr and over) ORDER SET ; Line care and maintenance o Sodium chloride 0.9% (normal saline) flush 10mL per lumen AND Heparin 10 units/mL 5mL per lumen every 12 hours after normal saline flush when locked. o Sodium chloride 0.9% (normal saline) flush 10mL per lumen before and after medication administration or to verify line patency AND Heparin 10 units/mL 5 mL per lumen following normal saline flush to lock. ; Carrier fluid (select most appropriate fluid for capability with medications) o Sodium chloride 0.9% (normal saline) 250 mL carrier bag. - Infuse 25 mL at a rate of IVPB administration to flush as needed to complete the IVPB and/or may keep rate at KVO (10mL/hr) to minimize frequent line interruption. o Dextrose 5% (D5W) 250 mL carrier bag: carrier bag - Infuse 25 mL at a rate of IVPB administration to flush as needed to complete the IVPB and/or may keep rate at KVO (10mL/hr) to minimize frequent line interruption. Transducers- Hemodynamic Pressure Monitoring ??? Arterial Catheter, Pulmonary Artery Catheter, Central Venous Pressure, Intra-Aortic Balloon Pump: o Sodium chloride 0.9% (normal saline) to infuse continuously at 3mL/hr via pressure bag at 300 mmHg ??? Intra-Aortic Balloon Pump: o Heparin 2 unit/mL in normal saline to infuse continuously at 3 mL/hr via pressure bag at 300mmHg For Occluded Central Line (Adult ONCOLOGY only) ?? Alteplase (CATHFLO) Instill 2mg to affected lumen(s) to dwell in occluded lumen one time. * Mary Marshall RN - 04/18/2021 8:57 AM CDT Bronch procedures Bronchoscopy was performed with:Dr Pienda Scope::Olympus OT1, Olympus 01was used. Bronch Personnel Present::Damon Lerma RN, Brinda Marshall RN, Geetha Nolasco, BURRER [employer] Fentanyl:350mcg and Versed:14mg documented in this encounter H&P Notes * Hilda Carpenter MD - 04/18/2021 12:15 PM CDT [facility] Adult Hospitalist Admission H & P Patient Name: Sathya Mesa Primary Care Doctor: Sathya Kyle MD Date of Admission: 04/18/2021 Date of Service: 04/18/2021 Chief Complaint: COPD s/p endobronchial valve placement HPI: Patient is a 61 y.o. male with COPD presenting after an endobronchial valve placement. Patient has history of COPD with chronic respiratory failure. Patient reports that he wears 3 L of O2 at baseline. He was admitted today after getting endobronchial valve placement. Patient was seen post procedure. Denies any chest pain. Breathing feels stable. No nausea vomiting. Does have some sore throat. Only concern is severe right knee pain. Past Medical History: Past Medical History: Diagnosis Date ??? Community acquired pneumonia ??? Emphysema of lung Past Surgical History: Past Surgical History: Procedure Laterality Date ??? BRONCHOSCOPY Current Medications: Prior to Admission Medications Prescriptions Last Dose Informant Patient Reported? Taking? ALPRAZolam (XANAX) 0.5 mg tablet 04/17/2021 Yes Yes Sig: Take 0.5 mg by mouth 3 times daily as needed for Anxiety. HYDROcodone-acetaminophen 2.5-325 mg Tablet 04/17/2021 Yes Yes Sig: Take by mouth. albuterol (PROVENTIL,VENTOLIN) 0.63 mg/3 mL Solution for Nebulization 04/18/2021 at Unknown time Yes Yes Sig: Take 0.63 mg by inhalation one time only. arformoteroL (Brovana) 15 mcg/2 mL Solution for Nebulization 04/17/2021 Yes Yes Sig: Take 15 mcg by inhalation one time only. budesonide (PULMICORT RESPULE) 0.25 mg/2 mL Suspension for Nebulization 04/17/2021 Yes Yes Sig: Take by inhalation 2 times daily. dextromethorphan-guaiFENesin (MUCINEX DM) 30-600 mg Tablet Sustained Release 12HR 04/17/2021 Yes Yes Sig: Take 1 Tablet by mouth every 12 hours. predniSONE (DELTASONE) 10 mg tablet 04/17/2021 Yes Yes Sig: Take 10 mg by mouth daily. promethazine (PHENERGAN) 12.5 mg Tablet 04/17/2021 Yes Yes Sig: Take 12.5 mg by mouth every 6 hours as needed for Nausea/Emesis. roflumilast (DALIRESP) 500 mcg Tablet 04/17/2021 No Yes Sig: Take 1 Tablet (500 mcg) by mouth daily. tamsulosin (FLOMAX) 0.4 mg capsule 04/17/2021 Yes Yes Sig: Take 0.4 mg by mouth daily. Facility-Administered Medications: None Medication Allergies: Allergies Allergen Reactions ??? Oxycodone Hives Family History: -lung cancer father/brother Social History: Social History Tobacco Use ??? Smoking status: Never Smoker ??? Smokeless tobacco: Never Used Substance Use Topics ??? Alcohol use: Not on file Review of Systems: Gen: No fever or chills Endocrine: No heat or cold intolerance Pulm: No cough + SOB Cardiac: No chest pain or orthopnea GI: No nausea, vomiting, constipation or diarrhea : No hematuria, urgency or frequency Musculoskeletal: + pain or weakness Neuro: No numbness or tingling Psych: No anxiety or depression Skin: No rashes or eruptions All other ROS reviewed and are negative Physical Exam: Patient Vitals for the past 8 hrs: BP Temp Temp src Pulse Resp SpO2 Height Weight 04/18/21 1115 (!) 141/95 -- -- -- 20 100 % -- -- 04/18/21 1100 125/75 -- -- -- 16 98 % -- -- 04/18/21 1045 118/88 -- -- -- 14 -- -- -- 04/18/21 1034 -- -- -- -- 15 100 % -- -- 04/18/21 1033 (!) 125/91 -- -- -- 17 -- -- -- 04/18/21 1015 (!) 126/92 -- -- (!) 102 14 96 % -- -- 04/18/21 1010 (!) 143/91 -- -- (!) 101 15 94 % -- -- 04/18/21 1005 (!) 129/95 -- -- (!) 108 18 93 % -- -- 04/18/21 1000 -- -- -- (!) 103 17 95 % -- -- 04/18/21 0955 129/77 -- -- (!) 104 17 94 % -- -- 04/18/21 0953 (!) 143/85 -- -- (!) 110 15 99 % -- -- 04/18/21 0950 -- -- -- (!) 104 14 99 % -- -- 04/18/21 0948 124/87 -- -- (!) 102 14 99 % -- -- 04/18/21 0945 (!) 131/97 -- -- (!) 101 14 100 % -- -- 04/18/21 0943 133/76 -- -- (!) 108 15 99 % -- -- 04/18/21 0940 139/89 -- -- (!) 106 16 99 % -- -- 04/18/21 0937 (!) 132/98 -- -- (!) 107 15 99 % -- -- 04/18/21 0935 (!) 128/100 -- -- (!) 106 15 99 % -- -- 04/18/21 0932 (!) 142/102 -- -- (!) 104 15 99 % -- -- 04/18/21 0931 -- -- -- (!) 103 17 98 % -- -- 04/18/21 0928 (!) 142/92 -- -- (!) 101 14 98 % -- -- 04/18/21 0925 -- -- -- (!) 102 18 98 % -- -- 04/18/21 0922 121/79 -- -- (!) 117 23 99 % -- -- 04/18/21 0918 139/77 -- -- (!) 107 18 95 % -- -- 04/18/21 0915 127/83 -- -- (!) 105 15 97 % -- -- 04/18/21 0913 (!) 121/93 -- -- (!) 108 15 98 % -- -- 04/18/21 0908 (!) 126/93 -- -- 97 11 99 % -- -- 04/18/21 0905 (!) 141/92 -- -- 93 (!) 7 100 % -- -- 04/18/21 0903 -- -- -- 87 9 100 % -- -- 04/18/21 0900 (!) 136/101 -- -- 91 9 100 % -- -- 04/18/21 0858 (!) 150/88 -- -- 82 10 100 % -- -- 04/18/21 0855 (!) 149/107 -- -- 79 11 99 % -- -- 04/18/21 0852 (!) 140/93 -- -- 92 15 100 % -- -- 04/18/21 0848 (!) 138/104 -- -- 85 13 96 % -- -- 04/18/21 0845 131/89 -- -- 87 18 99 % -- -- 04/18/21 0816 (!) 143/98 -- -- 84 18 97 % -- -- 04/18/21 0705 (!) 138/93 97.4 ??F (36.3 ??C) Temporal 84 19 98 % 5' 9 (1.753 m) 117.9 kg (260 lb) 04/18/21 0700 (!) 138/93 -- -- -- 16 -- -- -- General: Alert, no distress. Heart: Regular rate and rhythm, S1, S2 normal, no murmur Lungs: Poor air movement throughout but clear to auscultation bilaterally Abdomen: Soft, non-tender. Extremities: No clubbing, cyanosis or edema Skin: Skin color, texture, turgor normal. Head: Normocephalic, atraumatic Neck: Supple, no adenopathy. Neuro: AOx3, no facial droop, no tongue deviation, clear speech, symmetric movements on both sides Data Base: Lab: No results found for this visit on 04/18/21 (from the past 24 hour(s)). Chest X ray personally reviewed: clear, normal cardiac borders Assessment and Plan: COPD: with severe emphysematous changes -Status post right sided endobronchial valve placement. Dr. Pineda from pulmonary following -Continue Trelegy, Daliresp, prednisone 10 mg daily Chronic hypoxemic and hypercapnic respiratory failure: On 3 L of nasal cannula oxygen at baseline Chronic arthritis of right knee: -Continue as needed hydrocodone BPH: -flomax DVT Prophylaxis Enoxaparin Code status Full Code Disposition: home after 3 days of monitoring Hilda Carpenter MD * Marlyn Pineda MD - 04/18/2021 8:45 AM CDT Pre-Procedure Assessment 04/18/2021 8:45 AM Patient Name: Sathya Hamlinnes 1960 Primary Care Physician: Sathya Kyle MD Date of Service: 04/18/2021 Procedure Name: Bronchoscopy with/without biopsy Past Medical [...] Gatherings with Friends and Family: ??? Attends [employer] Services: ??? Active Member of Clubs or [...] MG/ML (2 %) INJECTION SOLUTION (CABINET OVERRIDE) ??? benzocaine PF (HURRICAINE ONE) 20 % spray Mouth/Throat pre-proc one time Marlyn Pineda MD Medication Allergies: Allergies Allergen Reactions ??? Oxycodone Hives BP (!) 143/98 (BP Location: Left arm) Pulse 84 Temp 97.4 ??F (36.3 ??C) (Temporal) Resp 18 Ht 5' 9 (1.753 m) Wt 117.9 kg (260 lb) SpO2 97% BMI 38.40 kg/m?? General: Alert and stable, [...] cyanosis, clubbing or edema Neurologic: Non focal. Problem List Patient Active Problem List Diagnosis Date Noted ??? Lung nodule ??? Centrilobular emphysema Assessment: ASA Class 3 Marlyn Pineda MD Pulmonary, Critical Care, Neurocritical Care & Sleep Medicine [facility] [place] [address] Off: [phone] Pager: [phone] documented in this encounter Procedure Notes * Marlyn Pineda MD - 04/18/2021 12:35 PM CDTAssociated Order(s): PROCEDURE REPORT [facility] Pulmonology Patient Name: Sathya Mesa Procedure Date: 04/18/2021 Date of : 1960 Admit Type: Outpatient Attending MD: Marlyn Pineda MD Procedure: Bronchoscopy Indications: Severe emphysema necessitating bronchoscopic lung volume reduction Providers: Marlyn Pineda MD (Doctor) Referring MD: Requesting Physician: Medicines: Midazolam 14 mg IV, Fentanyl 350 mcg IV Complications: No immediate complications Procedure: [...] procedure fairly well. Moderate sedation start time: 8.43 am Moderate sedation end time: 9.51 am Findings: First, the right bronchial tree was comprehensively inspected to the subsegmental level with no visible endobronchial lesions or mucosal abnormalities; the left bronchial tree was likewise comprehensively inspected and appeared normal. A significant amount of expiratory dynamic airway collapse was noted throughout the tracheobronchial tree. Next, an Olympus B5-2C 1.4 mm 4 Fr balloon occlusion catheter was calibrated with varying levels of instilled saline using the Spiration endobronchial valve system airway sizing worksheet, followed by sequential balloon occlusion of the right upper lobe segmental bronchi for appropriate airway sizing. Subsequently, three separate 9 mm Spiration endobronchial valves were placed in the apical, anterior and posterior right upper lobe segmental bronchi using a 2.6 mm deployment catheter and loading system. Inspection of the right upper lobe demonstrated suitable positioning of the endobronchial valves. Thereafter, the bronchoscope was withdrawn without incident. Impression: - Severe emphysema status post bronchoscopic lung volume reduction with placement of Spiration endobronchial valves in the right upper lobe x 3 Recommendation: - Chest X-ray post-procedure. - Admit to the hospital for monitoring given the high incidence of postprocedure pneumothorax. Marlyn Pineda MD 04/18/2021 12:35:32 PM Number of Addenda: 0 Note Initiated On: 04/18/2021 6:23 AM [address]; [place] [address] documented in this encounter Miscellaneous Notes * Care Plan - Buffy Harris RN - 04/20/2021 11:39 AM CDT CM noted order for resume home health, yet pt had denied having home health during assessment. Notified MD ARMANDO changed order to IP home health consult. Received notice from [facility] that pt lives out of range for [facility] as pt lives in [facility]. CM called into pt room, pt states he uses [facility]. CM unable to locate that on [facility], pt clarifies that it is [facility] in [facility]. CM found [facility] in [place], pt confirms that is correct one. This is also not loaded in [employer]. CM called number and LVM, awaiting return call. 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 No home health. CM discussed with pt, pt accepted referral for [facility]. Referral placed. CM called [facility] and spoke with Elisha, Elisha stated that because of pt's ability to go to pulmonary rehab [facility], pt does not qualify for home health. MD and pt updated. Pt stated he will be fine without home health d/t pulmonary rehab and family in the health care field. Buffy Harris [employer] [id number] Problem: Discharge Planning Goal: Identify discharge needs upon admission and through discharge Description: Outcome: Progressing * Care Plan - Giuliano Mcdowell RN - 04/19/2021 11:31 PM CDT Pt has been A & O x 4. Pt can voice his needs and concerns. He complained of a headache and anxiety earlier on this shift, he received xanax and norco as ordered. Vital signs remained stable. Sinus tachycardia noted on the monitor, patient stated that this is normal. Oxygenating on 3L per nasalcannula which is his baseline at home. Patient requires standby assistance with ADL's and transfers. Patient voids to the restroom, bowel movement noted on this shift. Patient had shortness and received breathing treatment with relief. Pt did not use his trilogy machine as per physician instructions to avoid increased airway pressures All other assessments are as per flow sheet. Educated Pt on fall precautions. Call light within reach at all times. Pt remained free from falls or injuries. Bed alarm on at all times. Plan of Care reviewed with patient and healthcare team. All questions and concerns addressed. No signs of breakdown. Pt resting comfortably. Will continue to monitor. Procedures planned for today: Follow up X-Ray Patient Self Reported Pain Ratin on 1-10 scale. Temp: 98.8 ??F (37.1 ??C) (04/20/21409) Temp src: Oral (04/20/21409) Pulse: (!) 108 (04/20/21409) Heart Rate: 117 bpm (04/20/21409) ECG - Rhythm: sinus tachycardia (04/20/21444) BP: 125/87 (04/20/21409) Mean Arterial Pressure: 100 MM HG (04/20/21409) Resp: 21 (04/20/21409) SpO2: 95 % (04/20/21409) End Tidal CO2: 47 mmHg (04/18/21 1015) Oxygen Therapy Flow (L/min): 3 (04/20/21444) Oxygen Therapy O2 Device: nasal cannula (04/20/21444) Giuliano Martínez RN, BSN. [facility] [phone] * Care Plan - Buffy Harris RN - 04/19/2021 3:32 PM CDT Care Management Initial Assessment Initial Discharge Planning Assessment completed. Discussed Care Management's role and Discharge planning. Confirmed PHI# with patient/family member prior to conversation. Pt had both Pfizer vaccines, second dose in November. Discharge Plan: home Patient Discharge Planning Goal: home Patient will potentially discharge to a SNF/NH? No Care Management visited with: patient via in person. Prior to admission, patient resides at: own home. Prior to admission, living arrangements: spouse. Prior to admission, patient's functional level:requires assistance; uses cane for ADLs; needs assistance with iADLs: bathing, transportation, shopping, running errands, medication management, and housekeeping Prior to admission, the patient has the following DME? Yes cane, oxygen 3L/min, other trilogy vent,and DME Provider Name [facility] Services in the home: none with n/a company Receives hemodialysis? No Emergency contact(s): Extended Emergency Contact Information Primary Emergency Contact: Sloane Mesa Mobile Relation: Spouse Secondary Emergency Contact: La Bridges Mobile Relation: Sister Insurance coverage verified: Payor: MEDICARE / Plan: MEDICARE PART A AND B / Product Type: Medicare/ Prescription coverage: yes Preferred Pharmacy verified: [id number] - [address] [place]. Employment Status: disabled Has VA Benefits: no PCP verified as: Sathya Kyle MD Patient has not had a stay at an acute care hospital in the last 30 days. Recent Falls?: Last Known Fall: No falls Patient has a Smartvue account: no Patient has a smart device: Yes Patient's mobile number verified: Yes. Patient's number: Telephone Information: Patient is able to receive text messages: Yes Patient has access to the internet: No Plan for transportation at discharge: or sister Comments: none at this time Care Management contact information provided. Care Management will continue to follow and assist asneeded. Buffy Harris [employer] [id number] Problem: Discharge Planning Goal: Identify discharge needs upon admission and through discharge Description: Outcome: Progressing * Care Plan - Zane Martinez RN - 04/19/2021 6:27 AM CDT End of shift report: Pt has been AXOX4. VSS. Sinus Rhythm/ SinusTachy on monitor. Oxygenating on 3L NC during the day time and BiPAP/CPAP 3L at night. Pt.c/o of right knee pain PRN pain medication given with relief. Assessment per flow sheet. Fall precautions in place. Call light within reach at all times. Pt remained free from falls or injuries. Bed alarm on at all times. Plan of Care reviewed with patient. All questions and concerns addressed. No signs of breakdown.Uneventful shift. Pt resting comfortably. Will continue to monitor. Procedures planned for today: CXR in AM * Treatment Plan - Liudmila Santillan RCP - 04/18/2021 5:39 PM CDT [facility] RT Assess and Treat Worksheet and Note Admitting Diagnosis/Pulmonary History: Chief Complaint: COPD s/p endobronchial valve placement ?? HPI: Patient is a 61 y.o. male with COPD presenting after an endobronchial valve placement. Patient has history of COPD with chronic respiratory failure. Patient reports that he wears 3 L of O2 at baseline. He was admitted today after getting endobronchial valve placement. Patient was seen post procedure. Denies any chest pain. Breathing feels stable. No nausea vomiting. Does have some sore throat. Only concern is severe right knee pain. Home Regimen: TID DuoNeb, BID 0.25mg Pulmicort, BID Brovana Nebulizer (Per Pt's account) Home Oxygen/NIV: Home Trilogy Ventilator # Date [employer] Operator Respiratory Orders Comments 1 7.6.21 MBW TID DuoNeb, BID 0,25mg Pulmicort Home regimen ordered. The Pt states he does not take Trelegy DPI - he believes it was a mix up because he uses a Trilogy ventilator. He has been involved with pulmonary rehabilitation/COPD education at [facility]. I did give him our COPD self care booklet. DuoNeb Tx given with some improvement noted in aeration. 2 3 4 5 6 7 Airway Clearance CXR # WC UC MW BH6 MDI AI date CXR comments A I C Dx P 1 N Y N 7.6.21 IMPRESSION: Interval placement of an endobronchial valve in the superior right hilum. No pneumothorax. Mild opacities in both upper lobes, right greater than left. This may represent a combination of underlying interstitial opacities with post bronchoscopy changes in the right upper lobe. 2 3 4 5 6 7 Bronchodilator Therapy # BS RR WOB O2 PH SH PEFR% (for asthma) Score Class 1 2 0 1 1 3 1 8 1 2 3 4 5 6 7 Post Discharge Education Plan Pt response: Referrals [id number] - Referral to Smoke Cessation [id number] - Referral to Pulmonary Rehab [id number]- Referral to Resp. Clinic [facility] General Ed [id number] - CECILIA Smoking Cessation [id number] - [place] Nebulizer Ed [id number] - [place] MDI Ed [id number] - [place]EC[place] DPI Ed [id number] - CECILIA Spiriva HandiHaler Ed Disease Ed [id number] - C[place] Pneumonia Ed [id number] - C[place] Asthma Ed [id number] - C[place] COPD Ed CXR A = Atelectasis per Chest X-Ray WC = Weak Cough CXR I = Infiltrates per Chest X-Ray UC = Pt gets up in chair during the day CXR C = Consolidation per Chest X-Ray MW = Muscular Weakness Dx P = Pneumonia on Hospital Problem list BH6 = 6 sec breath hold on MDI technique Score PH = Score per Pulmonary History NJ = MDI independent Score WOB = Score per Work of Breathing AI = Acapella independent Score RR = Score per Respiratory Rate Score O2 = Score per Oxygen requirement Score BS = Score per Breathsounds Score SH = Score per Smoking History * Treatment Plan - Liudmila Santillan RCP - 04/18/2021 5:39 PM CDT Images from the original note were not included. ? Respiratory Therapy Assess and Treat Protocol- [facility] Approved by: [facility] - Medical Executive Committee Approval Date: 09/02/2020 ORDERS ARE ENTERED ???PER PROTOCOL?? Enter the protocol in the patient???s electronic health record using Resident Researche: .[email or web address] Respiratory Therapy orders: 1. Requires a written order for Assess and Treat Protocol (RT41) or IP Consult to Respiratory Therapy (CON21) by the physician or the physician photographer apprentice lithographic. 2. Oxygen desaturation studies (walk studies) must be ordered by the physician unless the IP Consult for Respiratory Therapy includes a statement requesting a walk study if necessary 3. Bronchodilators will be ordered based on classifications CLASSIFICATION *COPD patients may use Atrovent *Asthma patients in Exacerbation may use Atrovent CLASS/SCORE FREQUENCY MDI AEROSOL HOME THERAPY Class 0/ 0-4 *If patient conditions worsens then reassess no therapy indicated Home Therapy orders can be adhered to as long as the severity score does not call for more therapy Class 1/ 5-8 *Reassess in 24 hrs. *Reassess in 96 hours hrs. after initial assessment *If pt. requests > 3 txs in 24 hours or condition worsens, then reassess. q6 PRN 2 puffs Albuterol 2.5mg Albuterol Class /-12 *Reassess in 24 hrs * Reassess in 96 hrs after initial assessment. *If patient condition worsens then reassess q6 or QID and q6 PRN 2puffs Albuterol 2.5mg Albuterol Class /-18 *Reassess in 24 hrs * Reassess in 96 hrs after initial assessment. *If patient condition worsens then reassess q4 and q4 PRN 2 puffs Albuterol 2.5 Mg Albuterol Class /- *Reassess in 24 hrs * Reassess in 96 hrs after initial assessment. *If patient condition worsens then reassess CONSULT PHYSICIAN for Escalation of Care Mode of Delivery The mode of medication delivery is determined by patient ability or patient request for a specific delivery device and ordered as MDI or Nebulizer. The method of delivery may be changed at any time at the discretion of the Respiratory Therapist based on patient need. The method of delivery is not based on the patient???s classification Metered Dose Inhaler (MDI) is administered when: High Flow Nebulizer (HFN) is administered when: a. Medication is available in an MDI a. Medication is not available in MDI b. Patient is alert, cooperative and able to follow commands/instructions b. Patient is unable to perform an MDI c. Patient is able to take a deep breath and perform a minimum of a 6 second breath hold c. Patientis not able to respond to a verbal command d. Patient demonstrates ability to use MDI with spacer effectively d. Patient???s home regimen is with a nebulizer and the Physician does not desire to change to a MDI e. Patient has existing tracheostomy or artificial airway. e. Patient receiving NIPPV and not able to be removed for MDI 4. Lung expansion or Airway clearance may be ordered with a Frequency of therapy will be TID or match the ordered bronchodilator therapy schedule or Q6 PRN if self directed following the algorithm below. Instructions General Purpose: The Assess & Treat protocol is made up of two branches; both branches of the protocol will be applied for every patient assessment performed. 1. Adult Bronchodilation a) To provide assessment of patients receiving inhaled medications. b) To determine appropriate dosage, frequency, and mode of bronchodilator therapy. c) To assure that patients receive at least the equivalent of their respiratory home regimen. d) To identify patients who may require education in understanding how, when, or why they take their respiratory medications. 2. Adult Airway Clearance & Lung Expansion a) To provide assessment of patients in need of airway clearance or lung expansion therapy. b) To provide various adjuncts to aid in mobilization of secretions and to treat atelectasis. c) To provide encouragement and aid in patient???s performance of deep breathing exercises. d) To guide the Respiratory Therapist through an algorithm that determines the best modality for that patient. In addition, each patient ordered into the Assess and Treat Protocol will be evaluated for patient education needs and oxygen desaturation evaluations (walk studies) that ideally need to be met priorto discharge Policy: 1. Requires a written order for Assess and Treat Protocol (RT41) or IP Consult to Respiratory Therapy (CON21) by the physician or the physician photographer apprentice lithographic. 2. Only licensed Respiratory Therapists will be permitted to assess patients using the standardizedRespiratory Assessment for the Assess & Treat Protocol. 3. A copy of the protocol will be placed in the electronic medical record. 4. Respiratory Therapists are required to use the Assess & Treat Protocol flowsheet and worksheets to provide appropriate communication between health care providers. An assessment note will alsobe placed in the medical record outlining the encounter and treatment plan. 5. Changes in mode, frequency, or dosage will be communicated to all appropriate personnel. 6. The RT Assess and Treat Protocol should be ordered on all patients who received mechanical ventilation and are ready for transfer out of the ICU setting. CVICU patients will be enrolled after Extubation even if they are still in the CVICU. 7. The Assess and Treat Protocol will allow for patients to continue home regimen medications as listed in their SURVEILLANCE SENSOR OFFICER medication list as appropriate. 8. Patients in [facility] and any other 23 hour observation unit who receive orders for inhaled medications via MDI will be changed to the liquid/ nebulizer form of the medication (as available) during their stay by the Respiratory Therapist per protocol. 9. Oxygen desaturation studies (walk studies) must be ordered by the physician unless the IP Consult for Respiratory Therapy includes a statement requesting a walk study if necessary. To meet Medicare requirements, walk studies must be performed within 48 hours of discharge. Walk studies are not indicated for patients transitioning to a chcf facility, rehabilitation facility, or who have not required oxygen since admission unless otherwise specified by the physician. ASSESS AND TREAT PROTOCOL-ADULT BRONCHODILATION PROCEDURE A. Indications: 1. Bronchospasm/wheezing (Reactive Airway Disease, Asthma, Emphysema, Chronic Bronchitis, Bronchiolitis) 2. Current Home Bronchodilator usage including short-acting, long-acting, inhaled corticosteroid, anticholinergic, and combination respiratory medications. 3. Other indications stated in the [place]???s Clinical Practice Guidelines, GOLD COPD Guidelines, and NHLBI Asthma Guidelines. B. Precautions: N/A C. Implementation: 1) Scoring the Patient The Respiratory Therapist will evaluate and score the patient???s respiratory status prior to medication delivery using the protocol???s scoring worksheet (shown below). All patient assessment parameters listed below as ???Items?? are to be evaluated. Determine total score (???Findings?? ) based on total points earned from each respiratory item assessed. CLINICAL FINDING 0 1 2 3 4 POINTS BREATH SOUNDS Clear Diminished unilaterally Diminished bilaterally &/or crackles Absent unilaterally &/or wheezes or rhonchi Absent bilaterally, severely diminished or severe wheezing RESPIRATORY RATE RR 8-20 RR 21-25 RR26-30 RR 31-35 RR > 35 WORK OF BREATHING Regular pattern (NO Distress) Dyspnea on exertion, irregular RR pattern Increased at rest Use of Accessory muscles, prolonged expiration, conversational dyspnea Severe shortness of breath, accessory muscle usage, dyspnea at rest O2 REQUIREMENT NO Oxygen 1-3 Liters (FiO2 = 25-35%) 4-6 Liters (FiO2 = 35-50%) FiO2 = 50-90% FiO2 =90-100% PULMONARY HISTORY / STATUS NO History Pneumonia(uncomplicated) History of Pulmonary disease w/ admission for other reason Pulmonary impairment - Acute or chronic Severe Exacerbation Smoking history NO Smoking Past History of Smoking but has quit > 1 year Smoking history < 1 pack a day Smoking history > 1 pack a day Current smoker > 2 packs per day 2) Classifying the Patient Patients are classified based on their admission diagnosis and the severity score determined by theprotocol???s standardized Respiratory Assessment. This mechanism determines their respiratory system status and the severity of symptoms. Based on this classification score the therapist determines the frequency of medication administration as well as how often they are reassessed. CLASSIFICATION *COPD patients may use Atrovent *Asthma patients in Exacerbation may use Atrovent CLASS/SCORE FREQUENCY MDI AEROSOL HOME THERAPY Class 0/ 0-4 *If patient conditions worsens then reassess no therapy indicated Home Therapy orders can be adhered to as long as the severity score does not call for more therapy Class 1/ 5-8 *Reassess in 24 hrs. *Reassess in 96 hours hrs. after initial assessment *If pt. requests > 3 txs in 24 hours or condition worsens, then reassess. q6 PRN 2 puffs Albuterol 2.5mg Albuterol Class /- *Reassess in 24 hrs * Reassess in 96 hrs after initial assessment. *If patient condition worsens then reassess q6 or QID and q6 PRN 2puffs Albuterol 2.5mg Albuterol Class /- *Reassess in 24 hrs * Reassess in 96 hrs after initial assessment. *If patient condition worsens then reassess q4 and q4 PRN 2 puffs Albuterol 2.5 Mg Albuterol Class /- *Reassess in 24 hrs * Reassess in 96 hrs after initial assessment. *If patient condition worsens then reassess CONSULT PHYSICIAN for Escalation of Care Asthma Exacerbation patients may have a Peak flow (PEFR), if patient is able, before and after every treatment Therapy effectiveness will be evaluated by pulmonary assessment and predicted/personal best values. For Asthma Exacerbation patients the dosage may be increased to 5 Mg Albuterol or 8 puffs Albuterol if 1st treatment does not improve breath sounds, PEFR, and patient???s subjective reportof symptom relief. a. Patients are reassessed per classification with all assessment parameters and given a new score.An CUSTOMER RESPONSE REPRESENTATIVE can reassess as needed to manage the needs of the patient. b. Patients are to be maintained on their home regimen even if their score indicates treatments on a less frequent administration schedule. Patients continuing on Home Regimen will be reassessed after 96 hours and then no further reassessment will occur unless patient condition worsens. The Assess and Treat order may be completed at that time if the patient is being managed by their Safety Scientist. c. Determine Mode of Delivery using chart below. d. All MDI therapy will be taught with a spacing device. 3) Mode of Delivery The mode of medication delivery is determined by patient ability or patient request for a specific delivery device. The method of delivery may be changed at any time at the discretion of the Respiratory Therapist based on patient need. The method of delivery is not based on the patient???s classification. Metered Dose Inhaler (MDI) is administered when: High Flow Nebulizer (HFN) is administered when: a. Medication is available in an MDI a. Medication is not available in MDI b. Patient is alert, cooperative and able to follow commands/instructions b. Patient is unable to perform an MDI c. Patient is able to take a deep breath and perform a minimum of a 6 second breath hold c. Patientis not able to respond to a verbal command d. Patient demonstrates ability to use MDI with spacer effectively d. Patient???s home regimen is with a nebulizer and the Physician does not desire to change to a MDI e. Patient has existing tracheostomy or artificial airway. e. Patient receiving NIPPV and not able to be removed for MDI 4)Considerations a. Review patient???s Prior to Admission (SURVEILLANCE SENSOR OFFICER) medication list. The Respiratory Therapist will consider ordering any of the following meds based on the patient???s home regimen: Short and long-actingbronchodilators, inhaled corticosteroids, anticholinergics, and combination respiratory medications. Use of the preferred [facility] formulary equivalent should be ordered per Assess and Treat Protocol for use throughout the patients hospital stay. b. Patients diagnosed with a chronic lung disease, such as COPD or Asthma, will be evaluated for the benefit of a controller medication therapy (long-acting bronchodilators, inhaled corticosteroids, anticholinergics, and combination respiratory medications) if not already on the SURVEILLANCE SENSOR OFFICER medication list. The Respiratory Therapist will contact the attending physician if a controller therapy may benefitthe patient. c. Xopenex (Levalbuterol) Orders will be followed as below: i. See Pharmacy Policy, Section: APPROVED THERAPEUTIC INTERCHANGES FOR [facility] Title: Beta Agonists ii. Patients taking home regimen Xopenex will continue with home regimen and at home frequency as long as there is an order from the physician that includes; do not substitute and rationale for need to use levalbuterol. iii. An adverse reaction or hypersensitivity is demonstrated by a 20% increase in heart rate above baseline during or within 10 minutes of administration of albuterol or tremors/shakiness that is noted by the therapist or reported by the patient that resolve with the use of Xopenex. If the patent demonstrates hypersensitivity to Albuterol, Xopenex will be used. d. Patients that score for PRN frequency will be given a PRN treatment with the initial assessment unless the patient refuses the therapy. e. Contact physician at any time for questions about patient???s assessment. i.e. Assessment score is > 16, unable to determine an assessment parameter, home regimen medications not included in protocol, changes in frequency or delivery method for other inhaled medications which do not include Albuterol or Ipratropium. f. A Medical Emergency Team may be considered at any time. D. Relative Contraindications: N/A ASSESS AND TREAT PROTOCOL-ADULT AIRWAY CLEARANCE & LUNG EXPANSION PROCEDURE A: Indications: 1. To aid in the mobilization of retained secretions or for sputum retention not responsive to spontaneous or directed coughing. 2. To treat atelectasis. 3. To optimize delivery of bronchodilators in patients receiving bronchial hygiene therapy. 4. For patients with decreased breath sounds or adventitious sounds suggesting secretions in the airway. 5. For patients with abnormal chest x-ray consistent with atelectasis, mucus plugging, infiltrates,or pneumonia. B. Precautions: N/A C. Implementation: 1. Gather patient???s objective data needed for pulmonary assessment to determine appropriate airway clearance or lung expansion intervention. Pulmonary assessment should include pulmonary history, co-morbidities, oxygen requirement, breath sounds, current chest X-ray (CXR), chest CT, patient???s ab ility to ambulate, the amount, color and quality of sputum being produced, laboratory data, cultures, and any other tests that are being ordered. 2. CXR interpretation terms that require intervention for lung expansion or airway clearance include ???atelectasis?? , ???infiltrate?? , ???consolidation?? , or the suspicion of ???pneumonia?? . 3. Assess patient???s ability to comply with specific optimal respiratory interventions such as: ability to effectively cough, , ability to follow directions, ability to independently perform interventions if applicable, ability to seal a mouthpiece, ability to tolerate specific therapies (such as a vest), and/or patient???s willingness to participate in optimal respiratory plan. 4. Refer to the algorithm below to determine specific respiratory intervention(s) that apply to thepatient. 5. Frequency of therapy will be TID or match the ordered bronchodilator therapy Schedule. Criteria for diagnosis of atelectasis (at least one): ?? Radiological interpretation on chest x-ray. Terms to look for include ???infiltrates?? , ???consolidation?? , or ???atelectasis?? . ?? High oxygen requirement. (FIO2 > .50 or flow > 10LPM per HFNC). ?? Absent breath sounds over affected area. ?? If patient is ambulatory, instruct patient in cough and deep breathing, and encourage ambulation. ?? If patient is not ambulatory, use PEP device with or without mask for lung recruitment. Criteria for diagnosis of Pneumonia or for CXR/CT with terms ???infiltrates?? , or ???consolidation?? : ?? Breath sounds that are rhonchi (coarse) that do not clear with cough. ?? If patient has effective cough and is ambulatory, instruct patient in deep breathing and coughing. ?? If patient has effective cough but needs assistance to mobilize sputum, consider IPV, vest or vibratory PEP therapy. ?? If patient has a weak or ineffective cough, consider IPV, vest, or handheld mucous clearance device. ?? If patient has muscular weakness, use Cough Assist and /or Quad Cough. Quad cough will be given on a PRN frequency, and may be used in conjunction with Cough Assist. ?? If patient is unable to achieve a therapeutic benefit of sputum mobilization from these methods due to the patient???s inability to participate in care, nasal tracheal suctioning may be ordered. Also consider ordering a nasal trumpet to protect nasal passages if frequent suctioning is anticipated. ?? Frequency of therapy will be TID or match the ordered bronchodilator therapy schedule. ?? Therapy will be a minimum TID frequency for 24 hours unless patient is able to follow directionswithout coaching, demonstrates appropriate technique, and will use the device independently, if applicable. Handheld mucous clearance device, oscillatory PEP device will be ordered at a Q6 PRN frequency for patients that demonstrate both optimal technique, and ability for independent use. ?? If there is no patient improvement, or patient does not tolerate chosen modality, choose anothermodality in the arm of the algorithm and reassess daily. After 48 hours of second modality and no patient improvement, consult the Physician. Criteria for evaluation of strong cough: ?? Ability to take an adequate deep breath as defined above followed by ability to close glottis and produce an audible cough Assessment of Outcome: ?? Change in sputum production; improved ease of clearing secretion, increased volume of secretionsduring and after treatments. ?? Change in breath sounds - with effective therapy, breath sounds may clear or the movement of secretions into the larger airways may cause a change in breath sounds. Note an effect that coughing may have had on the breath sounds ?? Patient subjective response to therapy. ?? Change in chest x-ray - resolution or improvement of atelectasis and localized infiltrates may be slow or dramatic ; D. Relative Contraindications: The following should be carefully evaluated and the patient monitored during therapy. 1. Patients unable to tolerate the increased work of breathing during procedures. Increased work ofbreathing may lead to hypoventilation and hypercarbia. 2. Intracranial pressure (ICP) > 20 mmHg. may increase during therapy 3. Hemodynamic instability may result in further cardiovascular compromise secondary to potential decreased venous return. 4. Recent facial, oral, and skull surgery or trauma. 5. Acute sinusitis. 6. Epistaxis. 7. Esophageal surgery (positive pressure not allowed, consult physician for vest therapy). 8. Bariatric surgery (positive pressure not allowed, consult physician for vest therapy.) 9. Hemoptysis. 10. Nausea and/or air swallowing, with increased potential of vomiting and aspiration. 11. Known or suspected tympanic membrane rupture or other middle ear pathology. 12. Untreated pneumothorax, flail chest, pulmonary barotraumas. * Care Plan - Kavitha Stock RN - 04/18/2021 4:16 PM CDT Pt transferred to room 3070 via bed with belongings by transport, meds and chart tubed to nurses station. Report called to RN, questions answered. documented in this encounter Plan of Treatment Not on file documented as of this encounter Procedures Procedure Name Priority Date/Time Associated Diagnosis Comments TELEMETRY REPORT 04/22/2021 11:5 6 AM CDT TELEMETRY REPORT 04/22/2021 11:3 8 AM CDT EKG 12-LEAD Routine 04/20/2021 3:03 PM CDT XR CHEST PA AND LATERAL 2 VW Routine 04/20/2021 6:05 AM CDT XR CHEST PA AND LATERAL 2 VW Routine 04/19/2021 6:19 AM CDT XR CHEST PA OR AP 1 VW Routine 04/18/2021 4:43 PM CDT PROCEDURE REPORT 04/18/2021 12:3 6 PM CDT RT ASSESS AND TREAT Routine 04/18/2021 1 2:14 PM CDT XR CHEST PA OR AP 1 VW Stat 04/18/2021 10:29 AM CDT BRONCHOSCOPY Routine 04/18/2021 6:41 AM CDT documented in this encounter Results * TELEMETRY REPORT (04/22/2021 11:56 AM CDT) Provider Scanning ECG ORDERABLES * TELEMETRY REPORT (04/22/2021 11:38 AM CDT) Provider Scanning ECG ORDERABLES * EKG 12-LEAD (04/20/2021 3:03 PM CDT) 04/20/2021 3:03 PM CDT Narrative INTERFACE SYSTEM - 04/21/2021 9:50 AM CDT ? Stationary ECG Study ? [facility] ? Test Date: ?04/20/2021 3:03 PM Pat Name: ? SATHYA MESA ?Department: ?? 49 ?Room: ? 3070 1 Gender: ? 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 Requested By: MARLYN MARKHAMLLO E Order Number: [id number] ?Reading MD: ?? Ravi Shah ? Measurements Intervals ?[place] ? Rate: ? 115 ?P: ?51 IA: ? 130 ?QRS: ?26 QRSD: ? 80 ? T: ?69 QT: ? 317 ? QTc: ?439 ? Interpretive Statements ? Sinus tachycardia Electronically Signed On 04-21-2021 9:50:50 CDT by Ravi Shah Procedure Note Ravi Shah MD - 04/21/2021 Stationary 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 DICTATION LOCATION: [address] Narrative 04/20/2021 7:37 AM CDT CHEST 2 VIEWS ?? DATE: 04/20/2021 6:05 AM HISTORY: Postop. COMPARISON: 04/19/2021. ?? FINDINGS: Increased opacity in the right apex is again visualized, unchanged. The right hilum is again mildly prominent. There is again volume loss of the right lung. No pneumothorax or pleural effusion is seen. Procedure Note Laura Turner MD - 04/20/2021 CHEST 2 VIEWS DATE: 04/20/2021 6:05 AM HISTORY: Postop. COMPARISON: 04/19/2021. FINDINGS: Increased opacity in the right apex is again visualized, unchanged. The right hilum is again mildly prominent. There is again volume loss of the right lung. No pneumothorax or pleural effusion is seen. IMPRESSION: No interval change. DICTATION LOCATION: Location [address] [place] [address] Marlyn Pineda MD DIAGNOSTIC IMAGING O RDERABLES * XR CHEST PA AND LATERAL 2 VW (04/19/2021 6:19 AM CDT) Anatomical Region Laterality Modality Chest Computed Radiogr aphy 04/19/2021 6:1 9 AM CDT Impressions 04/19/2021 7:12 AM CDT IMPRESSION: No pneumothorax. Evolving right perihilar and right upper lobe opacities may represent atelectasis or post bronchoscopy changes. DICTATION LOCATION: [address] Narrative 04/19/2021 7:12 AM CDT EXAMINATION: XR CHEST PA AND LATERAL 2 VW, 04/19/2021 6:19 AM HISTORY: Post-Operative. See Reason for Exam COMPARISON: Comparison is made with a study from 04/18/2021 and 03/23/2021. FINDINGS: Endobronchial valves in the superior right mediastinum are unchanged. There are evolving right perihilar and right upper lobe opacities. The left lung is clear. There is no pleural effusion or pneumothorax. The cardiomediastinal silhouette is unchanged. ?? INCIDENTAL FINDINGS: ??None. Procedure Note Hudson Shepard MD - 04/19/2021 EXAMINATION: XR CHEST PA AND LATERAL 2 VW, 04/19/2021 6:19 AM HISTORY: Post-Operative. See Reason for Exam COMPARISON: Comparison is made with a study from 04/18/2021 and 03/23/2021. FINDINGS: Endobronchial valves in the superior right mediastinum are unchanged. There are evolving right perihilar and right upper lobe opacities. The left lung is clear. There is no pleural effusion or pneumothorax. The cardiomediastinal silhouette is unchanged. INCIDENTAL FINDINGS: None. IMPRESSION: No pneumothorax. Evolving right perihilar and right upper lobe opacities may represent atelectasis or post bronchoscopy changes. DICTATION LOCATION: Location 1 - [facility] Marlyn Pineda MD DIAGNOSTIC IMAGING O RDERABLES * XR CHEST PA OR AP 1 VW (04/18/2021 4:43 PM CDT) Anatomical Region Laterality Modality Chest Computed Radiogr aphy 04/18/2021 4:43 PM CDT Impressions 04/18/2021 6:52 PM CDT IMPRESSION: No pneumothorax. Evolving post bronchoscopy changes in the right upper lobe. Decreased left upper lobe atelectasis. DICTATION LOCATION: Location 2 - [facility] Narrative 04/18/2021 6:52 PM CDT EXAMINATION: XR CHEST PA OR AP 1 [...] or pneumothorax. The cardiomediastinal silhouette is unchanged. ?? INCIDENTAL FINDINGS: ??None. Procedure Note Hudson Shepard MD - 04/18/2021 EXAMINATION: XR CHEST PA OR AP 1 [...] cardiomediastinal silhouette is unchanged. INCIDENTAL FINDINGS: None. IMPRESSION: No pneumothorax. Evolving post bronchoscopy changes in the right upper lobe. Decreased left upper lobe atelectasis. DICTATION LOCATION: Location [address] [place] [address] Marlyn Pineda MD DIAGNOSTIC IMAGING O RDERABLES * PROCEDURE REPORT (04/18/2021 12:36 PM CDT) Narrative Procedure Note Marlyn Pineda MD - 04/18/2021 12:35 PM CDT [facility] Pulmonology Patient Name: Sathya Mesa Procedure Date: 04/18/2021 Date of : 1960 Admit Type: Outpatient Attending MD: Marlyn Pineda MD Procedure: Bronchoscopy Indications: Severe emphysema necessitating bronchoscopic lung volume reduction Providers: Marlyn Pineda MD (Doctor) Referring MD: Requesting Physician: Medicines: Midazolam 14 mg IV, Fentanyl 350 mcg IV Complications: No immediate complications Procedure: [...] procedure fairly well. Moderate sedation start time: 8.43 am Moderate sedation end time: 9.51 am Findings: First, the right bronchial tree was comprehensively inspected to the subsegmental level with no visible endobronchial lesions or mucosal abnormalities; the left bronchial tree was likewise comprehensively inspected and appeared normal. A significant amount of expiratory dynamic airway collapse was noted throughout the tracheobronchial tree. Next, an Olympus B5-2C 1.4 mm 4 Fr balloon occlusion catheter was calibrated with varying levels of instilled saline using the Spiration endobronchial valve system airway sizing worksheet, followed by sequential balloon occlusion of the right upper lobe segmental bronchi for appropriate airway sizing. Subsequently, three separate 9 mm Spiration endobronchial valves were placed in the apical, anterior and posterior right upper lobe segmental bronchi using a 2.6 mm deployment catheter and loading system. Inspection of the right upper lobe demonstrated suitable positioning of the endobronchial valves. Thereafter, the bronchoscope was withdrawn without incident. Impression: - Severe emphysema status post bronchoscopic lung volume reduction with placement of Spiration endobronchial valves in the right upper lobe x 3 Recommendation: - Chest X-ray post-procedure. - Admit to the hospital for monitoring given the high incidence of postprocedure pneumothorax. Marlyn Pineda MD 04/18/2021 12:35:32 PM Number of Addenda: 0 Note Initiated On: 04/18/2021 6:23 AM [address]; [place] [address] Marlyn Pineda MD PROCEDURE/MINOR SURG ICAL ORDERABLES * XR CHEST PA OR AP 1 VW (04/18/2021 10:29 AM CDT) Anatomical Region Laterality Modality Chest Computed Radiogr aphy 04/18/2021 10:2 9 AM CDT Impressions 04/18/2021 11:37 AM CDT IMPRESSION: Interval placement of an endobronchial valve in the superior right hilum. No pneumothorax. Mild opacities in both upper lobes, right greater than left. This may represent a combination of underlying interstitial opacities with post bronchoscopy changes in the right upper lobe. DICTATION LOCATION: Location [address] [place] [address] 04/18/2021 11:37 AM CDT EXAMINATION: XR CHEST PA OR AP 1 VW, 04/18/2021 10:29 AM HISTORY: Post-Operative. ?? COMPARISON: Comparison is made with a study from 03/23/2021. Comparison is also made with CT chest on 02/22/2021 FINDINGS: An endobronchial valve is seen in the superior right hilum. Mild opacities in both upper lobes, right greater than left, are seen. There is no pleural effusion or pneumothorax. The cardiomediastinal silhouette is unchanged. ?? INCIDENTAL FINDINGS: ??None. Procedure Note Hudson Shepard MD - 04/18/2021 EXAMINATION: XR CHEST PA OR AP 1 VW, 04/18/2021 10:29 AM HISTORY: Post-Operative. COMPARISON: Comparison is made with a study from 03/23/2021. Comparison is also made with CT chest on 02/22/2021 FINDINGS: An endobronchial valve is seen in the superior right hilum. Mild opacities in both upper lobes, right greater than left, are seen. There is no pleural effusion or pneumothorax. The cardiomediastinal silhouette is unchanged. INCIDENTAL FINDINGS: None. IMPRESSION: Interval placement of an endobronchial valve in the superior right hilum. No pneumothorax. Mild opacities in both upper lobes, right greater than left. This may represent a combination of underlying interstitial opacities with post bronchoscopy changes in the right upper lobe. DICTATION LOCATION: Location [address] [place] [address] Marlyn Pineda MD DIAGNOSTIC IMAGING O RDERABLES documented in this encounter Visit Diagnoses Diagnosis Centrilobular emphysema- Primary Other emphysema Chronic hypoxemic respiratory failure Chronic respiratory failure Glaucoma Unspecified glaucoma Chronic respiratory failure with hypoxia and hypercapnia Status post bronchoscopy documented in this encounter Administered Medications Inactive Administered Medications - up to 3 most recent administrations Medication Order MAR Action Action Date Dose Rate Site acetaminophen (TYLENOL) tablet 650 mg 650 mg, Oral, EVERY 6 HOURS PRN, Starting on Sat04/18/21 at 1213, Until Molly 04/20/21 at 1852, temperature greater than 100.3 or general pain, pain of headache or pain with score less than 4, Routine Given 04/19/2021 11:18 AM CDT 650 mg albuterol (PROVENTIL,VENTOLIN) 2.5 mg /3 mL (0.083 %) inhalation solution 2.5 mg 2.5 mg, Inhalation, EVERY 4 HOURS PRN RESPIRATORY, Starting on Sat04/18/21 at 1140, Until Sat04/20/21 at 1852, Wheezing, Routine Given 04/20/2021 2:24 AM CDT 2.5 mg ALPRAZolam (XANAX) tablet 0.5 mg 0.5 mg, Oral, THREE TIMES DAILY PRN, Starting on Sat04/18/21 at 1212, Until Sat04/20/21 at 1852, Anxiety, Routine, Previous Med: ALPRAZolam (XANAX) 0.5 mg tablet - Orig Sig - Take 0.5 mg by mouth 3 times daily as needed for Anxiety. Given 04/20/2021 3:01 PM CDT 0.5 mg Given 04/20/2021 8:15 AM CDT 0.5 mg Given 04/19/2021 8:40 PM CDT 0.5 mg azithromycin (ZITHROMAX) tablet 500 mg 500 mg, Oral, SATURDAY,SATURDAY AND SATURDAY, First dose on Sat04/19/21 at 0900, Until Discontinued, Routine, Antibiotic Indication: Other: Enter in Comments, Antibiotic Indication: ., Is sepsis suspected? Unlikely Given 04/19/2021 9:18 AM CDT 500 mg BENZOCAINE 20 % MUCOSAL SPRAY (CABINET OVERRIDE) 1 dose, Starting on Sat04/18/21 at 0808, Until Sat04/18/21 at 0854, Peter Lerma: cabinet override Given 04/18/2021 8:54 AM CDT 2 Sprays benzocaine PF (HURRICAINE ONE) 20 % spray Mouth/Throat, PRE-PROCEDURE ONCE, 2 doses, Starting on Sat04/18/21 at 0840, Until Sat04/20/21 at 1852, Routine bisacodyL (DULCOLAX) rectal suppository 10 mg 10 mg, Rectal, DAILY PRN, Starting on Sat04/18/21 at 1213, Until Sat04/20/21 at 1852, Constipation, Routine budesonide (PULMICORT RESPULE) 0.25 mg/2 mL inhalation solution 0.25 mg 0.25 mg, Inhalation, TWICE DAILY RESPIRATORY, First dose on Sat04/18/21 at 2100, Until Discontinued, Routine Given 04/20/2021 6:26 AM CDT 0.25 mg Given 04/19/2021 6:02 PM CDT 0.25 mg Given 04/19/2021 6:39 AM CDT 0.25 mg dextromethorphan-guaiFENesin (MUCINEX DM) 30-600 mg per tablet 1 Tablet 1 Tablet, Oral, EVERY 12 HOURS (BlD), First dose on Sat04/18/21 at 1215, Until Discontinued, Routine, Previous Med: dextromethorphan-guaiFENesin (MUCINEX DM) 30-600 mg Tablet Sustained Release 12HR - Orig Sig - Take 1 Tablet by mouth every 12 hours. Given 04/20/2021 8:15 AM CDT 1 Tablet Given 04/19/2021 8:39 PM CDT 1 Tablet Given 04/19/2021 9:18 AM CDT 1 Tablet dextrose 5 % in water 250 mL flush bag 25 mL 25 mL, IV, SEE ADMIN INSTRUCTIONS, Starting on Sat04/18/21 at 1616, Until Molly 04/20/21 at 1852, Routine enoxaparin (LOVENOX) injection 60 mg 60 mg (rounded from 58.95 mg = 0.5 mg/kg ? 117.9 kg), subCUT, EVERY 24 HOURS, First dose on Sat04/18/21 at 1215, Until Discontinued, Routine, Indication: Prophylaxis of VTE, Dose to be adjusted per facility protocol? Yes Given 04/20/2021 12:04 PM CDT 60 mg Abdomen, Left Lower Quadrant Given 04/19/2021 1:26 PM CDT 60 mg Ab domen, Left Lower Quadrant Given 04/18/2021 1:30 PM CDT 60 mg Ab domen, Left Lower Quadrant EPINEPHrine (ADRENALINE) 1 mg/mL (1 mL) injection 0.5 mg 0.5 mg, See Admin Instructions, ONE TIME ONLY, 1 dose, On Sat04/18/21 at 0930, Routine Given 04/18/2021 10:12 AM CDT 0.5 mg Othe r (Comment) FENTANYL (PF) 50 MCG/ML INJECTION SOLUTION (CABINET OVERRIDE) 1 dose, Starting on Sat04/18/21 at 0808, Until Sat04/18/21 at 1009, Peter Lerma: cabinet override fentaNYL PF (SUBLIMAZE) 50 mcg/mL injection 350 mcg 350 mcg, IV, ONE TIME ONLY, 1 dose, On Sat04/18/21 at 1015, Routine Given 04/18/2021 10:09 AM CDT 350 mcg fluticasone propionate (FLONASE) 50 mcg/spray nasal inhaler 1 Acme 1 Acme, Both Nostrils, TWO TIMES DAILY, First dose on Sat04/19/21 at 1300, Until Discontinued, Routine Given 04/20/2021 8:16 AM CDT 1 Acme Given 04/19/2021 8:40 PM CDT 1 Acme Given 04/19/2021 2:59 PM CDT 1 Acme HYDROcodone-acetaminophen (NORCO) 5-325 mg per tablet 1 Tablet 1 Tablet, Oral, EVERY 8 HOURS PRN, Starting on Sat04/18/21 at 1214, Until Sat04/18/21 at 1804, Pain (See admin instructions), Routine Given 04/18/2021 1:38 PM CDT 1 Tablet HYDROcodone-acetaminophen (NORCO) 5-325 mg per tablet 1 Tablet 1 Tablet, Oral, EVERY 4 HOURS PRN, Starting on Sat04/18/21 at 1815, Until Sat04/20/21 at 1852, Pain (See admin instructions), Routine Given 04/20/2021 1:17 PM CDT 1 Tablet Given 04/20/2021 8:14 AM CDT 1 Tablet Given 04/19/2021 7:41 PM CDT 1 Tablet ipratropium-albuteroL (DUONEB) 0.5 mg-3 mg(2.5 mg base)/3 mL inhalation solution 3 mL 3 mL, Inhalation, THREE TIMES DAILY RESPIRATORY, First dose on Sat04/18/21 at 1900, Until Discontinued, Routine Given 04/20/2021 3:21 PM CDT 3 mL Given 04/20/2021 6:26 AM CDT 3 mL Given 04/19/2021 6:01 PM CDT 3 mL latanoprost (XALATAN) 0.005 % ophthalmic solution 1 Drop 1 Drop, Both Eyes, DAILY AT BEDTIME, First dose on Sat04/19/21 at 1300, Until Discontinued, Routine Given 04/19/2021 3:01 PM CDT 1 Drop lidocaine 2 % (XYLOCAINE) injection 17 mL 17 mL, See Admin Instructions, ONE TIME ONLY, 1 dose, On Sat04/18/21 at 1015, Routine Given 04/18/2021 10:10 AM CDT 17 mL Other (Comment) LIDOCAINE HCL 20 MG/ML (2 %) INJECTION SOLUTION (CABINET OVERRIDE) 1 dose, Starting on Sat04/18/21 at 0809, Until Sat04/18/21 at 1010, Peter Lerma: cabinet override magnesium hydroxide (MILK OF MAGNESIA) oral suspension 30 mL 30 mL, Oral, ONE TIME ONLY, 1 dose, On Sat04/20/21 at 1115, Routine Given 04/20/2021 12:06 PM CDT 30 mL midazolam (PF) (VERSED) injection 14 mg 14 mg, IV, ONE TIME ONLY, 1 dose, On Sat04/18/21 at 1015, Routine Given 04/18/2021 10:08 AM CDT 14 mg MIDAZOLAM (PF) 1 MG/ML INJECTION SOLUTION (CABINET OVERRIDE) 1 dose, Starting on Sat04/18/21 at 0809, Until Sat04/18/21 at 1008, Peter Lerma: cabinet override naloxone (NARCAN) 0.4 mg/mL injection 0.1 mg 0.1 mg, IV, SEE ADMIN INSTRUCTIONS, Starting on Sat04/18/21 at 1804, Until Sat04/20/21 at 1852, Routine polyethylene glycol (MIRALAX) packet 17 Gram 17 Gram, Oral, DAILY PRN, Starting on Sat04/18/21 at 1213, Until Sat04/20/21 at 1852, Constipation, Routine Given 04/20/2021 6:22 AM CDT 17 Grams polyvinyl alcohol-povidon(PF) (REFRESH CLASSIC) 1.4-0.6 % ophthalmic solution 1 Drop 1 Drop, Both Eyes, TWO TIMES DAILY, First dose on Sat04/19/21 at 1300, Until Discontinued, Routine Given 04/20/2021 8:15 AM CDT 1 Drop Given 04/20/2021 1:52 AM CDT 1 Drop Given 04/19/2021 2:59 PM CDT 1 Drop predniSONE (DELTASONE) tablet 10 mg 10 mg, Oral, DAILY, First dose on Sat04/18/21 at 1215, Until Discontinued, Routine, Previous Med: predniSONE (DELTASONE) 10 mg tablet - Orig Sig - Take 10 mg by mouth daily. Given 04/18/2021 1:28 PM CDT 10 mg roflumilast (DALIRESP) tablet 500 mcg 500 mcg, Oral, DAILY, First dose on Sat04/18/21 at 1300, Until Discontinued, Routine Given 04/20/2021 8:16 AM CDT 500 mcg Given 04/19/2021 9:18 AM CDT 500 mcg Given 04/18/2021 1:28 PM CDT 500 mcg sodium chloride 0.9 % 250 mL flush bag 25 mL 25 mL, IV, SEE ADMIN INSTRUCTIONS, Starting on Sat04/18/21 at 1616, Until [facility] 04/20/21 at 1852, Routine sodium chloride 0.9% bolus solution 250 mL 250 mL, IV, ONE TIME ONLY, 1 dose, On Sat04/18/21 at 0845, at 187.5 mL/hr, Administer over 80 Minutes, Routine New Bag 04/18/2021 8:40 AM CDT 250 mL 187.5 mL/hr sodium chloride flush injection 5 mL 5 mL, IV, EVERY 12 HOURS (BlD), First dose on Sat04/18/21 at 2100, Until Discontinued, Routine Given 04/20/2021 8:17 AM CDT 5 mL Given 04/19/2021 8:44 PM CDT 5 mL Given 04/19/2021 9:20 AM CDT 5 mL sodium chloride flush injection 5 mL 5 mL, IV, SEE ADMIN INSTRUCTIONS, Starting on Sat04/18/21 at 1616, Until [facility] 04/20/21 at 1852, Routine tamsulosin (FLOMAX) SR 24 hour capsule 0.4 mg 0.4 mg, Oral, DAILY, First dose on Sat04/18/21 at 1215, Until Discontinued, Routine, Previous Med: tamsulosin (FLOMAX) 0.4 mg capsule - Orig Sig - Take 0.4 mg by mouth daily. Given 04/20/2021 8:17 AM CDT 0.4 mg Given 04/19/2021 9:18 AM CDT 0.4 mg Given 04/18/2021 1:28 PM CDT 0.4 mg traMADoL (ULTRAM) tablet 50 mg 50 mg, Oral, EVERY 6 HOURS PRN, Starting on Sat04/18/21 at 1137, Until Sat04/18/21 at 1236, Pain (See admin instructions), Routine Given 04/18/2021 12:11 PM CDT 50 m g documented in this encounter Active and Recently Administered Medications Times are shown in CDT. Scheduled Medication Order 04/18/2021 04/19/2021 04/20/2021 azithromycin (ZITHROMAX) tablet 500 mg 500 mg, Oral, SATURDAY,SATURDAY AND SATURDAY, First dose on Sat04/19/21 at 0900, Until Discontinued, Routine, Antibiotic Indication: Other: Enter in Comments, Antibiotic Indication: ., Is sepsis suspected? Unlikely 917 (Given - Provider: Dean Gold RN) benzocaine PF (HURRICAINE ONE) 20 % spray Mouth/Throat, PRE-PROCEDURE ONCE, 2 doses, Starting on Sat04/18/21 at 0840, Until Sat04/20/21 at 1852, Routine budesonide (PULMICORT RESPULE) 0.25 mg/2 mL inhalation solution 0.25 mg 0.25 mg, Inhalation, TWICE DAILY RESPIRATORY, First dose on Sat04/18/21 at 2100, Until Discontinued, Routine 2100 (Given - Provider: Nic Guerrero RCP) 0639 (Given - Provider: Nic Guerrero RCP)0900 (Canceled Entry - Provider: Nic Guerrero RCP)1802 (Given - Provider: Emilia Elmore RCP)2100 (Canceled Entry - Provider: Emilia Elmore RCP - Comment: already given) 0626 (Given - Provider: eGoff Medellin RCP)0900 (Canceled Entry - Provider: Geoff Medellin RCP) dextromethorphan-guaiF ENesin (MUCINEX DM) 30-600 mg per tablet 1 Tablet 1 Tablet, Oral, EVERY 12 HOURS (BlD), First dose on Sat04/18/21 at 1215, Until Discontinued, Routine, Previous Med: dextromethorphan-guaiF ENesin (MUCINEX DM) 30-600 mg Tablet Sustained Release 12HR - Orig Sig - Take 1 Tablet by mouth every 12 hours. 1329 (Given - Provider: Kavitha Stock RN)2046 (Given - Provider: Zane Martinez RN) 0918 (Given - Provider: Dean Gold RN)2038 (Given - Provider: Giuliano Mcdowell, RN) 0815 (Given - Provider: Renae Lake RN) dextrose 5 % in water 250 mL flush bag 25 mL 25 mL, IV, SEE ADMIN INSTRUCTIONS, Starting on Sat04/18/21 at 1616, Until Sat04/20/21 at 1852, Routine enoxaparin (LOVENOX) injection 60 mg 60 mg (rounded from 58.95 mg = 0.5 mg/kg ? 117.9 kg), subCUT, EVERY 24 HOURS, First dose on Sat04/18/21 at 1215, Until Discontinued, Routine, Indication: Prophylaxis of VTE, Dose to be adjusted per facility protocol? Yes 1330 (Given - Provider: Kavitha Stock RN) 1326 (Given - Provider: Dean Gold RN) 1204 (Given - Provider: Renae Lake RN) EPINEPHrine (ADRENALINE) 1 mg/mL (1 mL) injection 0.5 mg (COMPLETED) 0.5 mg, See Admin Instructions, ONE TIME ONLY, 1 dose, On Sat04/18/21 at 0930, Routine 1012 (Given - Provider: Mary Marshall RN - Comment: 0.5mg @ 0925 per [facility]) fentaNYL PF (SUBLIMAZE) 50 mcg/mL injection 350 mcg (COMPLETED) 350 mcg, IV, ONE TIME ONLY, 1 dose, On Sat04/18/21 at 1015, Routine 1009 (Given - Provider: Mary Marshall RN - Comment: 50[facility] @ 0843 0845 0850 0903 0910 [id number] @ 0849 0933) fluticasone propionate (FLONASE) 50 mcg/spray nasal inhaler 1 Acme 1 Acme, Both Nostrils, TWO TIMES DAILY, First dose on Sat04/19/21 at 1300, Until Discontinued, Routine 1459 (Given - Provider: Dean Gold RN)204 (Given - Provider: Giuliano Mcdowell, GORDON) 0816 (Given - Provider: Renae Lake RN) ipratropium-albuteroL (DUONEB) 0.5 mg-3 mg(2.5 mg base)/3 mL inhalation solution 3 mL 3 mL, Inhalation, THREE TIMES DAILY RESPIRATORY, First dose on Sat04/18/21 at 1900, Until Discontinued, Routine 1802 (Given - Provider: Liudmila Santillan [facility]) 0637 (Given - Provider: Nic Guerrero [facility])1254 (Given - Provider: Eimlia Elmore [facility])1801 (Given - Provider: Emilia Elmore [facility]) 0626 (Given - Provider: Geoff Medellin [facility])1521 (Given - Provider: Jolanta Cruz [facility]) latanoprost (XALATAN) 0.005 % ophthalmic solution 1 Drop 1 Drop, Both Eyes, DAILY AT BEDTIME, First dose on Sat04/19/21 at 1300, Until Discontinued, Routine 1501 (Given - Provider: Dean Gold RN) lidocaine 2 % (XYLOCAINE) injection 17 mL (COMPLETED) 17 mL, See Admin Instructions, ONE TIME ONLY, 1 dose, On Sat04/18/21 at 1015, Routine 1010 (Given - Provider: Mary Marshall RN - Comment: pre procedure atomizer1-2cc increments during procedure) magnesium hydroxide (MILK OF MAGNESIA) oral suspension 30 mL (COMPLETED) 30 mL, Oral, ONE TIME ONLY, 1 dose, On Sat04/20/21 at 1115, Routine 1206 (Given - Provider: Renae Lake RN) midazolam (PF) (VERSED) injection 14 mg (COMPLETED) 14 mg, IV, ONE TIME ONLY, 1 dose, On Sat04/18/21 at 1015, Routine 1008 (Given - Provider: Mary Marshall RN - Comment: 2mg @ 0843 0845 0850 0903 0910 [id number] @ 0849 0939) naloxone (NARCAN) 0.4 mg/mL injection 0.1 mg 0.1 mg, IV, SEE ADMIN INSTRUCTIONS, Starting on Sat04/18/21 at 1804, Until Sat04/20/21 at 1852, Routine polyvinyl alcohol-povidon(PF) (REFRESH CLASSIC) 1.4-0.6 % ophthalmic solution 1 Drop 1 Drop, Both Eyes, TWO TIMES DAILY, First dose on Sat04/19/21 at 1300, Until Discontinued, Routine 1459 (Given - Provider: Dean Gold RN) 0152 (Given - Provider: Giuliano Mcdowell, RN)0815 (Given - Provider: Renae Lake, GORDON) predniSONE (DELTASONE) tablet 10 mg (CANCELED) 10 mg, Oral, DAILY, First dose on Sat04/18/21 at 1215, Until Discontinued, Routine, Previous Med: predniSONE (DELTASONE) 10 mg tablet - Orig Sig - Take 10 mg by mouth daily. 1328 (Given - Provider: Kavitha Stock, GORDON) roflumilast (DALIRESP) tablet 500 mcg 500 mcg, Oral, DAILY, First dose on Sat04/18/21 at 1300, Until Discontinued, Routine 1328 (Given - Provider: Kavitha Stock, GORDON) 0918 (Given - Provider: Dean Gold RN) 0816 (Given - Provider: Renae Lake, GORDON) sodium chloride 0.9 % 250 mL flush bag 25 mL 25 mL, IV, SEE ADMIN INSTRUCTIONS, Starting on Sat04/18/21 at 1616, Until Molly 04/20/21 at 1852, Routine sodium chloride 0.9% bolus solution 250 mL (COMPLETED) 250 mL, IV, ONE TIME ONLY, 1 dose, On Sat04/18/21 at 0845, at 187.5 mL/hr, Administer over 80 Minutes, Routine 0840 (New Bag - Provider: Mary Marshall RN)1000 (Stopped - Provider: Mary Marshall RN) sodium chloride flush injection 5 mL 5 mL, IV, EVERY 12 HOURS (BlD), First dose on Sat04/18/21 at 2100, Until Discontinued, Routine 2045 (Given - Provider: Zane Martinez RN) 09 (Given - Provider: Dean Gold RN)204 (Given - Provider: Giuliano Mcdowell, GORDON) 0817 (Given - Provider: Renae Lake, GORDON) sodium chloride flush injection 5 mL 5 mL, IV, SEE ADMIN INSTRUCTIONS, Starting on Sat04/18/21 at 1616, Until Molly 04/20/21 at 1852, Routine tamsulosin (FLOMAX) SR 24 hour capsule 0.4 mg 0.4 mg, Oral, DAILY, First dose on Sat04/18/21 at 1215, Until Discontinued, Routine, Previous Med: tamsulosin (FLOMAX) 0.4 mg capsule - Orig Sig - Take 0.4 mg by mouth daily. 1328 (Given - Provider: Kavitha Stock RN) 0918 (Given - Provider: Dean Gold RN) 0817 (Given - Provider: Renae Lake, GORDON) PRN Medication Order 04/18/2021 04/19/2021 04/20/2021 acetaminophen (TYLENOL) tablet 650 mg 650 mg, Oral, EVERY 6 HOURS PRN, Starting on Sat04/18/21 at 1213, Until Molly 04/20/21 at 1852, temperature greater than 100.3 or general pain, pain of headache or pain with score less than 4, Routine 1118 (Given - Provider: Dean Gold RN) albuterol (PROVENTIL,VENTOLIN) 2.5 mg /3 mL (0.083 %) inhalation solution 2.5 mg 2.5 mg, Inhalation, EVERY 4 HOURS PRN RESPIRATORY, Starting on Sat04/18/21 at 1140, Until Sat04/20/21 at 1852, Wheezing, Routine 0224 (Given - Provider: Geoff Medellin RCP) ALPRAZolam (XANAX) tablet 0.5 mg 0.5 mg, Oral, THREE TIMES DAILY PRN, Starting on Sat04/18/21 at 1212, Until Molly 04/20/21 at 1852, Anxiety, Routine, Previous Med: ALPRAZolam (XANAX) 0.5 mg tablet - Orig Sig - Take 0.5 mg by mouth 3 times daily as needed for Anxiety. 1337 (Given - Provider: Kavitha Stock RN)2333 (Given - Provider: Zane Martinez RN) 1316 (Given - Provider: Dean Gold RN)2040 (Given - Provider: Giuliano Mcdowell RN) 0815 (Given - Provider: Renae Lake, GORDON)1501 (Given - Provider: Renae Lake, GORDON) bisacodyL (DULCOLAX) rectal suppository 10 mg(Linked Group 1) 10 mg, Rectal, DAILY PRN, Starting on Sat04/18/21 at 1213, Until Sat04/20/21 at 1852, Constipation, Routine 0622 (See Alternativ e - Provider: Giuliano Mcdowell, GORDON) guaiFENesin (ROBITUSSIN) 100 mg/5 mL oral solution 200 mg 200 mg, Oral, EVERY 4 HOURS PRN, Starting on Sat04/18/21 at 1213, Until Sat04/20/21 at 1852, Other (See Comment), to thin secretions, Routine HYDROcodone-acetaminop hen (NORCO) 5-325 mg per tablet 1 Tablet (CANCELED) 1 Tablet, Oral, EVERY 8 HOURS PRN, Starting on Sat04/18/21 at 1214, Until Sat04/18/21 at 1804, Pain (See admin instructions), Routine 1338 (Given - Provider: Kavitha Stock RN)1759 (Not Given - Provider: Hannah Mason RN - Reason: Other - See Comment) HYDROcodone-acetaminop hen (NORCO) 5-325 mg per tablet 1 Tablet 1 Tablet, Oral, EVERY 4 HOURS PRN, Starting on Sat04/18/21 at 1815, Until Sat04/20/21 at 1852, Pain (See admin instructions), Routine 1810 (Given - Provider: Hannah Mason RN)2237 (Given - Provider: Zane Martinez RN) 0624 (Given - Provider: Zane Martinez RN)1209 (Given - Provider: Dean Gold RN)1940 (Canceled Entry - Provider: Giuliano Mcdowell RN)194 (Given - Provider: Giuliano Mcdowell RN) 0814 (Given - Provider: Renae Lake, GORDON)1317 (Given - Provider: Renae Lake, GORDON) polyethylene glycol (MIRALAX) packet 17 Gram(Linked Group 1) 17 Gram, Oral, DAILY PRN, Starting on Sat04/18/21 at 1213, Until Sat04/20/21 at 1852, Constipation, Routine 0622 (Given - Provider: Giuliano Mcdowell, GORDON) promethazine (PHENERGAN) tablet 12.5 mg 12.5 mg, Oral, EVERY 6 HOURS PRN, Starting on Sat04/18/21 at 1526, Until Sat04/20/21 at 1852, Nausea/Emesis, Routine sennosides-docusate sodium (SENNA-S) 8.6-50 mg per tablet 1 Tablet 1 Tablet, Oral, TWO TIMES DAILY PRN, Starting on Sat04/18/21 at 1213, Until Sat04/20/21 at 1852, Constipation, Routine traMADoL (ULTRAM) tablet 50 mg (CANCELED) 50 mg, Oral, EVERY 6 HOURS PRN, Starting on Sat04/18/21 at 1137, Until Sat04/18/21 at 1236, Pain (See admin instructions), Routine 1211 (Given - Provider: Kavitha Stock RN) No Frequency Medication Order 04/18/2021 04/19/2021 04/20/2021 BENZOCAINE 20 % MUCOSAL SPRAY (CABINET OVERRIDE) (COMPLETED) 1 dose, Starting on Sat04/18/21 at 0808, Until Sat04/18/21 at 0854, Peter Lerma: cabinet override 0854 (Given - Provider: Mary Marshall RN - Comment: [address] Pineda) Linked Groups Order Group 1: polyethylene glycol (MIRALAX) packet 17 GramJump to med 17 Gram, Oral, DAILY PRN, Starting on Sat04/18/21 at 1213, Until Sat04/20/21 at 1852, Constipation, Routine Or bisacodyL (DULCOLAX) rectal suppository 10 mgJump to med 10 mg, Rectal, DAILY PRN, Starting on Sat04/18/21 at 1213, Until Sat04/20/21 at 1852, Constipation, Routine documented in this encounter Care Teams Grade Setter Relationship Specialty Start Date End Date Sathya Kyle MD [address] [place] [id number] PCP - General Internal Medicine 04/18/21 documented as of this encounter
--- OUTSIDE RECORDS SUMMARY | 2024-10-14 06:00 | XMS_ITS | Encounter Summary ---
Author Organization 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 Social History Tobacco Use Types Packs/Day Years Used Date Smoking Tobacco: Former Smokeless Tobacco: Former PHQ-2 Answer Date Recorded PHQ-2 Total Score (If total score is 3 or more points, staff should administer the PHQ-9) 0 12/27/2022 Sex and Gender Information Value Date Recorded Sex Assigned at Not on file 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 Gender Identity Not on file Sexual Orientation Not on file documented as of this encounter Ordered Prescriptions Prescription Sig Dispense Quantity Refills Last Filled Start Date End Date HYDROcodone-acetam inophen (NORCO) 5-325 mg per tabletIndications: Pain Take 1 tablet by mouth 4 (four) times a day as needed for pain 120 tablet 05/05/2023 05/23/2023 HYDROcodone-acetam inophen (NORCO) 5-325 mg per tabletIndications: Pain Take 1 tablet by mouth 4 (four) times a day as needed for pain 120 tablet 04/05/2023 05/05/2023 HYDROcodone-acetam inophen (NORCO) 5-325 mg per tabletIndications: Pain Take 1 tablet by mouth 4 (four) times a day as needed for pain 120 tablet 03/06/2023 04/05/2023 documented in this encounter Progress Notes * Rosaline Rdz NP - 02/28/2023 9:38 AM CDT Pt was seen in the [...] a day as needed for pain Reorder 02/05/2023 02/28/2023 documented as of this encounter Care Teams Vehicle Fare Collector Relationship Specialty Start Date End Date Aristeo Khan MD [address] [place] [address] PCP - General 06/28/22 Ravi Queen MD [address] [place] [address] [place] [address] Anesthesiologist Pain Management 09/05/22 documented as of this encounter
--- OUTSIDE RECORDS SUMMARY | 2024-10-14 06:00 | XMS_ITS | Encounter Summary ---
Author Organization [facility] Address [address] Attn: Epic Prelude ADT [place]STR[place] [address] Care Team Providers Care Cleaning Validation Consultant Name Role Phone Bentley Kyle MD Primary Care Provider [phone] Encounter Details Date Type Department Care Team (Latest Contact Info) Description 11/21/2021 Travel Social History Tobacco Use Types Packs/Day [...] COVID-19? 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
--- OUTSIDE RECORDS SUMMARY | 2024-10-14 06:00 | XMS_ITS | Encounter Summary ---
Author Organization [facility] Address [address] Elena: Epic Prelude ADT [place] [address] Care Team Providers Care Cyber Software Engineer Name Role Phone Unavailable Primary Care Provider Unavailabl e Encounter Details Date Type Department Care Team (Latest Contact Info) Description 02/22/2021 Travel Social History Tobacco Use Types Packs/Day [...]
--- OUTSIDE RECORDS SUMMARY | 2024-10-14 06:00 | XMS_ITS | Encounter Summary ---
Author Organization [facility] Address [address] [place] [address] Care Team Providers Care Manager Diesel Name Role Phone Unavailable Primary Care Provider Unavailabl e Reason for Visit * Reason Onset Date Comments Needs Appointment 11/04/2020 Encounter Details Date Type Department Care Team (Late st Contact Info) Description 11/04/2020 Telephone [facility] Pulmonology [facility] [address] [place] [address] Carson Pineda MD [address] [place] [address] Needs Appointment Social History Tobacco Use Types Packs/Day Years Used Date Smoking Tobacco: Never Assessed Sex and Gender Information Value Date Recorded Sex Assigned at Not on file Gender Identity Not on file Sexual Orientation Not on file documented as of this encounter Miscellaneous Notes * Telephone Encounter - Natalia Solorzano - 11/10/2020 9:01 AM CST Patient is rescheduled NT PROGRAM MANAGER * Telephone Encounter - Carson Pineda MD - 11/09/2020 7:33 PM CST Please schedule patient for 12/06/2020 at 4 PM. NT PROGRAM MANAGER * Telephone Encounter - Natalia Solorzano - 11/04/2020 4:11 PM CST Patient was scheduled for 12/09. A day you wont be in the office. He is coming in for consultation on asthma and possible [place] valve. Would you like to place him on a specific day or is next available okay? NT PROGRAM MANAGER documented in this encounter Plan of Treatment Not on file documented as of this encounter Visit Diagnoses Not on filedocumented in this encounter
--- OUTSIDE RECORDS SUMMARY | 2024-10-14 06:00 | XMS_ITS | Encounter Summary ---
Author Organization [facility] Address [address] [place] [address] Care Team Providers Care Director Microbiology Name Role Phone Unavailable Primary Care Provider Unavailabl e Reason for Referral * Outpatient Services (Routine) - Closed Specialty Diagnoses / Procedures Referred By Contac t Referred To Contact Respiratory Therapy Diagnoses Chronic obstructive pulmonary disease, unspecified COPD type Procedures PULSE OXIMETRY, WITH EXERCISE Marlyn Warren MD [address] [place] [address] [facility] Pulmonary Function [place] [facility] [address] [place] [address] Referral ID Status Reason Start Date Expiration Date Visits Re quested Visits Authorized [id number] Closed 01/30/2021 03/02/2022 1 1 Reason for Visit * Outpatient Services (Routine) - Closed Specialty Diagnoses / Procedures Referred By Contac t Referred To Contact Respiratory Therapy Diagnoses Chronic obstructive pulmonary disease, unspecified COPD type Procedures PULSE OXIMETRY, WITH EXERCISE Marlyn Warren MD [address] [place] [address] [facility] Pulmonary Function [place] [facility] [address] [place] [address] Referral ID Status Reason Start Date Expiration Date Visits Re quested Visits Authorized [id number] Closed 01/30/2021 03/02/2022 1 1 Encounter Details Date Type Department Care Team (Latest Contact Info) Description 02/22/2021 9:55 AM CDT - 02/22/2021 11:59 PM CDT Hospital Encounter [facility] [place] [facility] [address] [place] [phone] Marlyn Warren MD [address] [place] [address] Discharge Disposition: Home or Self Care Social [...] Procedure Name Priority Date/Time Associated Diagnosis Comments PULSE OXIMETRY, WITH EXERCISE Routine 02/22/2021 2:36 PM CDT Chronic obstructive pulmonary disease, unspecified COPD type documented in this encounter Results * PULSE OXIMETRY, WITH EXERCISE (02/22/2021 2:36 PM CDT) 02/22/2021 2:36 PM CDT Narrative INTERFACE SYSTEM - 02/23/2021 10:44 PM CDT ? Scanned PFT ? [facility] ? Test Date: ?02/22/2021 2:36 PM Pat Name: ? BENTLEY MESA ?Department: ?Room: ? Gender: ? M ?Shape Brick Molder: ?? : ?1960 ? Requested By: MARLYN WARREN E Order Number: [id number] ?Reading MD: ?? Marlyn Warren Interpretive Statements ? INTERPRETIVE STATEMENTS: At baseline, patient demonstrated an SpO2 of 98% on Room Air. ??The patient walked a distance of 122 meters over approximately 6 minutes, after which the SpO2 was 93% on Room Air. IMPRESSION: 6-minute walk distance of 122 m with evidence of mild exertional desaturation not necessitating supplemental oxygen. Electronically Signed On 02-23-2021 22:44:33 CDT by Marlyn Warren Procedure Note Provider, Historical - 02/23/2021 Scanned PFT [facility] Test Date: 02/22/2021 2:36 PM Pat Name: BENTLEY MESA Department: Room: Gender: M Shape Brick Molder: : 1960 Requested By: MARLYN Medrano Order Number: [id number] Reading MD: Marlyn Warren Interpretive Statements INTERPRETIVE STATEMENTS: At baseline, patient demonstrated an SpO2 of 98% on Room Air. Thepatient walked a distance of 122 meters over approximately 6 minutes, after whichthe SpO2 was 93% on Room Air. IMPRESSION: 6-minute walk distance of 122 m with evidence of mild exertionaldesaturation not necessitating supplemental oxygen. Electronically Signed On 02-23-2021 22:44:33 CDT by Marlyn Warren Marlyn Warren MD PFT ORDERABLES INTERFACE SYSTEM Refer to clinic/hospital department documented in this encounter Visit Diagnoses Diagnosis Chronic obstructive pulmonary disease, unspecified COPD type documented in this encounter
--- OUTSIDE RECORDS SUMMARY | 2024-10-14 06:00 | XMS_ITS | Encounter Summary ---
Author Organization [facility] Address [address] [place] [address] Care Team Providers Care Radiation / Chemistry Technician Name Role Phone Bentley Kyle MD Primary Care Provider [phone] Reason for Referral * CT Scan (Routine) - Closed Specialty Diagnoses / Procedures Referred By Contac t Referred To Contact Radiology Diagnoses Centrilobular emphysema Procedures CT CHEST HIGH RESOLUTION Carson Pineda MD [address] [place] [address] [address] Scan [address] [place] [address] Referral ID Status Reason Start Date Expiration Date Visits Re quested Visits Authorized [id number] Closed 11/10/2021 12/11/2021 1 1 Reason for Visit * Reason Comments Follow Up Encounter Details Date Type Department Care Team (Late st Contact Info) Description 05/23/2021 3:45 PM CDT Office Visit [facility] Pulmonology [facility] [address] [place] [address] Carson Pineda MD [address] [place] [address] Chronic respiratory failure with hypoxia and hypercapnia (Primary Dx); Chronic obstructive pulmonary disease, unspecified COPD type; Lung nodule; Personal history of tobacco use, presenting hazards to health; History of cocaine use; Severe obesity (BMI 35.0-39.9) with comorbidity Social [...] PM CDT documented as of this encounter Last Filed Vital Signs Vital Sign Reading Time Taken Comments Blood Pressure 128/88 05/23/2021 3:32 PM CDT Pulse 114 05/23/2021 3:32 PM CDT Temperature - - Respiratory Rate - - Oxygen Saturation 95% 05/23/2021 3:32 PM CDT 3L Inhaled Oxygen Concentration - - Weight 113.4 kg (250 lb) 05/23/2021 3:32 PM CDT Height 175.3 cm (5' 9 ) 05/23/2021 3:32 PM CDT Body Mass Index 36.92 05/23/2021 3:32 PM CDT documented in this encounter Progress Notes * Carson Pineda MD - 05/23/2021 3:32 PM CDT Pulmonary Outpatient Followup Note 05/23/2021 3:44 PM Patient Name: Bentley Mesa 1960 Primary Care Physician: Bentley Kyle MD Date of Service: 05/23/2021 Impression: 1. Chronic hypoxemic and hypercarbic respiratory failure necessitating nocturnal noninvasive ventilation using a Trilogy machine 2. Chronic obstructive pulmonary disease GOLD 3 3. Status post bronchoscopic lung volume reduction with endobronchial Spiration valve placement x3 in the right upper lobe 4. Right upper lobe lung nodule at 8 mm 5. History of tobacco use 6. History of cocaine use 7. Severe obesity ?? Plan: 1. Reviewed his chest x-ray from today that demonstrates right-sided atelectasis that is commensurate with recent endobronchial valve placement, he will need follow-up high-resolution noncontrast chest CT imaging in approximately 6 months to determine volume changes in his target lobe and also monitor changes in his previously visualized right upper lobe lung nodule 2. Continue his COPD management with nebulized budesonide and DuoNebs in conjunction with daily Daliresp 3. Continue oral azithromycin 3 times a week 4. Continue nocturnal noninvasive ventilation using his Trilogy machine 5. Continue supplemental oxygen as needed titrated by home oximetry for an SpO2 88-92% 6. He has been complimented on initiating a pulmonary rehabilitation program and encouraged to continue with the same 7. Weight loss has been strongly advocated Interim History: Patient is a 61 y.o. male who presents for followup. In the interim, he underwent a bronchoscopic lung volume reduction with placement of Spiration valves in the right upper lobe, following which he has been doing well with significant improvement in his dyspnea and exertional capacity. He has also initiated pulmonary rehabilitation and has been tolerating this well without any recent respiratorysymptomatology and without any change in his chronic expectoration. He remains on supplemental oxygen at 3 L/minute and also remains compliant with his nocturnal Trilogy machine. Prior to bronchoscopic lung volume reduction, he underwent bronchoscopic biopsy of a right upper lobe lung nodule that did not demonstrate evidence of neoplastic pathology. Current Medications Current Outpatient Medications Medication Sig [...] Gatherings with Friends and Family: ??? Attends Christian Services: ??? Active Member of Clubs or Organizations: ??? Attends Club or Organization Meetings: ??? Marital Status: Intimate Partner Violence: ??? Fear of Current or Ex-Partner: ??? Emotionally Abused: ??? Physically Abused: ??? Sexually Abused: PHYSICAL EXAM BP 128/88 (BP Location: Right arm, Patient Position (BP): Sitting, BP Cuff Size: Adult) Pulse (!)114 Ht 5' 9 (1.753 m) Wt 113.4 kg (250 lb) SpO2 95% Comment: 3L BMI 36.92 kg/m?? General: Alert and stable, appears in no acute distress. HEENT: Normocephalic and atraumatic. Neck: Supple, trachea midline, no adenopathy, thyroid normal. No jugular venous distension. Lungs: Bilateral equal but decreased breath sounds to auscultation. No crackles or wheeze. Heart: Heart sounds are normal and regular. No audible murmurs. Extremities: No cyanosis, clubbing or edema Skin: [...] right apex is again seen. DICTATION LOCATION: [address] Results for orders placed or performed during [...] Decreased left upper lobe atelectasis. DICTATION LOCATION: [place] [address] - [facility] Problem List Patient Active Problem List Diagnosis Date Noted ??? Chronic hypoxemic respiratory failure ??? Glaucoma ??? Chronic respiratory failure with hypoxia and hypercapnia ??? Status post bronchoscopy ??? Lung nodule ??? Centrilobular emphysema I have personally reviewed all applicable data including labs, imaging studies, PFTs as well as sleep data where applicable, including individual tracings and waveforms. Please do not hesitate to contact me with any clarifications or questions. Carson Pineda MD Pulmonary, Critical Care, Neurocritical Care & Sleep [facility] [address] Off: [phone] Pager: [phone] documented in this encounter Plan of Treatment Not on file documented as of this encounter Results * CT CHEST HIGH RESOLUTION (11/14/2021 12:50 PM FAMILY CONSUMER SCIENCE TEACHER) Anatomical Region Laterality Modality Chest Computed Tomogra phy 11/14/2021 1:12 PM FAMILY CONSUMER SCIENCE TEACHER Addenda Addendum by Suzanne Pete MD on 11/17/2021 1:48 PM FAMILY CONSUMER SCIENCE TEACHER CORRECTED REPORT - ?? EXAMINATION: CT OF THE CHEST WITHOUT CONTRAST DATE: ??11/14/2021 12:50 PM HISTORY: Emphysema COMPARISON: 02/22/2021 TECHNIQUE: Transaxial computed tomographic images of the chest were obtained without intravenous contrast. The examination was performed with the adjustment of mA according to the patient size and/or the use of Iterative Reconstruction Technique. ?? DLP: 1210 mGy/cm FINDINGS: ?? There is interval placement of endobronchial valves in the right upper lobe. The right upper lobe is completely collapsed. There is a rounded margin along the inferior aspect of the collapsed right upper lobe and central mass is not excluded. This is not well assessed given lack of intravenous contrast. Severe emphysema. No bronchiectasis. No pneumothorax or pleural effusion. The heart and great vessels are normal in size. There is no pericardial effusion. There is no supraclavicular, mediastinal, axillary or hilar lymphadenopathy. The visualized portions of the upper abdomen are unremarkable. Bone windows demonstrate no abnormal lytic or sclerotic lesions. IMPRESSION: ?? Emphysema with interval placement of endobronchial valves in the right upper lobe with complete right upper lobe collapse. While this is likely all related to the valves, there is a rounded contour of the lower aspect of the collapsed right upper lobe and mass is not excluded on this study given lack of intravenous contrast. DICTATION LOCATION: Location 1 - [facility] Impressions 11/14/2021 5:08 PM FAMILY CONSUMER SCIENCE TEACHER IMPRESSION: ?? Emphysema with interval placement of endobronchial valves in the right upper lobe with complete right upper lobe collapse. While this is likely all related to the valves, there is a rounded contour of the lower aspect of the collapsed right upper lobe and mass is not excluded on this study given lack of intravenous contrast. DICTATION LOCATION: Location 1 - [facility] 11/14/2021 5:08 PM FAMILY CONSUMER SCIENCE TEACHER EXAMINATION: CT OF THE CHEST WITHOUT CONTRAST DATE: ??11/14/2021 12:50 PM HISTORY: Emphysema COMPARISON: 02/22/2021 TECHNIQUE: Transaxial computed tomographic images of the chest were obtained without intravenous contrast. The examination was performed with the adjustment of mA according to the patient size and/or the use of Iterative Reconstruction Technique. ?? DLP: 1210 mGy/cm FINDINGS: ?? There is interval placement of endobronchial bowel in the right upper lobe. The right upper lobe is completely collapsed. There is a rounded margin along the inferior aspect of the collapsed right upper lobe and central mass is not excluded. This is not well assessed given lack of intravenous contrast. Severe emphysema. No bronchiectasis. No pneumothorax or pleural effusion. The heart and great vessels are normal in size. There is no pericardial effusion. There is no supraclavicular, mediastinal, axillary or hilar lymphadenopathy. The visualized portions of the upper abdomen are unremarkable. Bone windows demonstrate no abnormal lytic or sclerotic lesions. Procedure Note Suzanne Pete MD - 11/14/2021 EXAMINATION: CT OF THE CHEST WITHOUT CONTRAST DATE: 11/14/2021 12:50 PM HISTORY: Emphysema COMPARISON: 02/22/2021 TECHNIQUE: Transaxial computed tomographic images of the chest were obtained without intravenous contrast. The examination was performed with the adjustment of mA according to the patient size and/or the use of Iterative Reconstruction Technique. DLP: 1210 mGy/cm FINDINGS: There is interval placement of endobronchial bowel in the right upper lobe. The right upper lobe is completely collapsed. There is a rounded margin along the inferior aspect of the collapsed right upper lobe and central mass is not excluded. This is not well assessed given lack of intravenous contrast. Severe emphysema. No bronchiectasis. No pneumothorax or pleural effusion. The heart and great vessels are normal in size. There is no pericardial effusion. There is no supraclavicular, mediastinal, axillary or hilar lymphadenopathy. The visualized portions of the upper abdomen are unremarkable. Bone windows demonstrate no abnormal lytic or sclerotic lesions. IMPRESSION: Emphysema with interval placement of endobronchial valves in the right upper lobe with complete right upper lobe collapse. While this is likely all related to the valves, there is a rounded contour of the lower aspect of the collapsed right upper lobe and mass is not excluded on this study given lack of intravenous contrast. DICTATION LOCATION: Location 1 - [facility] Carson Pineda MD CT ORDERABLES documented in this encounter Visit Diagnoses Diagnosis Chronic respiratory failure with hypoxia and hypercapnia- Primary Chronic obstructive pulmonary disease, unspecified COPD type Lung nodule Solitary pulmonary nodule Personal history of tobacco use, presenting hazards to health History of cocaine use Cocaine abuse, in remission Severe obesity (BMI 35.0-39.9) with comorbidity documented in this encounter Care Teams Radiation / Chemistry Technician Relationship Specialty Start Date End Date Bentley Kyle MD [address] [place] [address] PCP - General Internal Medicine 04/18/21 documented as of this encounter
--- OUTSIDE RECORDS SUMMARY | 2024-10-14 06:00 | XMS_ITS | Encounter Summary ---
Author Organization [facility] Address [address] Elena: Epic Prelude ADT [place] [address] Care Team Providers Care Quoter Name Role Phone Unavailable Primary Care Provider Unavailabl e Encounter Details Date Type Department Care Team (Latest Contact Info) Description 03/23/2021 Travel Social History Tobacco Use Types Packs/Day [...]
--- OUTSIDE RECORDS SUMMARY | 2024-10-14 06:00 | XMS_ITS | Clinical Summary ---
Author Organization [facility] Address [address] [place] [address] Phone Care Team Providers Care Crown Perforator Operator Name Role Phone Bentley Kyle MD Primary Care Provider [phone] Allergies Active Allergy Reactions Criticality Noted Date Comments Oxycodone Hives High 12/06/2020 Medications Medication Sig Dispensed Refills Start Date End Date Status albuterol (PROVENTIL,VENTOLIN) 0.63 mg/3 mL Solution for Nebulization Take 0.63 mg by inhalation one time only. Active budesonide (PULMICORT RESPULE) 0.25 mg/2 mL Suspension for Nebulization Take by inhalation 2 times daily. Active HYDROcodone-acetamin ophen 2.5-325 mg Tablet Take by mouth. Active roflumilast (DALIRESP) 500 mcg Tablet Take 1 Tablet (500 mcg) by mouth daily. 30 Tablet 5 12/07/2020 Active tamsulosin (FLOMAX) 0.4 mg capsule Take 0.4 mg by mouth daily. Active promethazine (PHENERGAN) 12.5 mg Tablet Take 12.5 mg by mouth every 6 hours as needed for Nausea/Emesis. Active dextromethorphan-gua iFENesin (MUCINEX DM) 30-600 mg Tablet Sustained Release 12HR Take 1 Tablet by mouth every 12 hours. Active predniSONE (DELTASONE) 10 mg tablet Take 10 mg by mouth daily. Active ALPRAZolam (XANAX) 0.5 mg tablet Take 0.5 mg by mouth 3 times daily as needed for Anxiety. Active azithromycin (ZITHROMAX) 500 mg tablet Take 1 Tablet (500 mg) by mouth every Saturday, Saturday, and Saturday. 30 Tablet 04/21/2021 Active Active Problems Problem Noted Date Diagnosed Date Lung nodule Centrilobular emphysema Chronic hypoxemic respiratory failure Glaucoma Chronic respiratory failure with hypoxia and hyp ercapnia Status post bronchoscopy Immunizations Name Administration Dates Next Due (PFIZER)(12 YR UP) COVID-19 VACCINE - EMERGENCY USE AUTHORIZATION, MRNA, [id number](PF) 30 MCG/0.3 ML IM SUSP 01/10/2021 Influenza Seasonal Unspecified Formulation IM Social History Tobacco Use Types Packs/Day Years Used Date Smoking Tobacco: Never Smokeless Tobacco: Never Sex and Gender Information Value Date Recorded Sex Assigned at Not on file Gender Identity Not on file Sexual Orientation Not on file Last Filed Vital Signs Vital Sign Reading Time Taken Comments Blood Pressure 130/80 11/21/2021 1:06 PM EMBEDDED NURSE Pulse 87 11/21/2021 1:06 PM EMBEDDED NURSE Temperature 37.2 ??C (98.9 ??F) 04/20/2021 11:16 AM C DT Respiratory Rate 18 04/20/2021 3:29 PM CDT Oxygen Saturation 91% 11/21/2021 1:06 PM EMBEDDED NURSE 3 L Inhaled Oxygen Concentration - - Weight 116.1 kg (256 lb) 11/21/2021 1:06 PM EMBEDDED NURSE Height 175.3 cm (5' 9 ) 11/21/2021 1:06 PM EMBEDDED NURSE Body Mass Index 37.8 11/21/2021 1:06 PM EMBEDDED NURSE Plan of Treatment Health Maintenance Due Date Last Done Comments DTAP/TDAP/TD VACCINES (1 - Tdap) 01/22/1979 COLORECTAL SCREENING 01/22/2005 Colorectal Cancer Screening 01/22/2005 FIT-DNA Q 3 years 01/22/2005 FIT/FOBT Q 1 year 01/22/2005 Flex Sig/CT Colonography Q 5 years 01/22/2005 ZOSTER VACCINE (1 of 2) 01/22/2010 PNEUMOCOCCAL VACCINE 0-64 YEARS (2 of 2 - PCV) 018 05/08/2017 RSV VACCINE (60+ or ) (1 - Risk 60-74 years 1-dose series) 2020 INFLUENZA VACCINE (#1) 2024 08/14/2020 COVID-19 Vaccine (2 - season) 2024 Advance Directives For more information, please contact: [phone] * Full Code (Latest Code Status on File) Date Activated Date Inactivated Comments 04/18/2021 12:14 PM 04/20/2021 6:57 PM Care Teams Crown Perforator Operator Relationship Specialty Start Date End Date Bentley Kyle MD [address] [place] [id number] PCP - General Internal Medicine 04/18/21
--- OUTSIDE RECORDS SUMMARY | 2024-10-14 06:00 | XMS_ITS | Encounter Summary ---
Author Organization [facility] Address [address] [place] [address] Care Team Providers Care Labor Delivery Specialist Name Role Phone Unavailable Primary Care Provider Unavailabl e Encounter Details Date Type Department Care Team (Late st Contact Info) Description 12/13/2020 Abstract [facility] Pulmonology [facility] [address] [place] [address] Carson Pineda MD [address] [place] [address] Social History Tobacco Use Types [...] COVID-19? No / Unsure 12/06/2020 3:42 PM LINUX SERVER ADMINISTRATOR documented as of this encounter Plan of Treatment Not on file documented as of this encounter Visit Diagnoses Not on filedocumented in this encounter
--- OUTSIDE RECORDS SUMMARY | 2024-10-14 06:00 | XMS_ITS | Encounter Summary ---
Author Organization [facility] Address [address] [place] [address] Care Team Providers Care Airplane Charter Clerk Name Role Phone Bentley Kyle MD Primary Care Provider [phone] Encounter Details Date Type Department Care Team (Late st Contact Info) Description 04/28/2021 Abstract [facility] Pulmonology [facility] [address] [place] [address] Carson Pineda MD [address] [place] [address] Social History Tobacco Use Types [...] on filedocumented in this encounter Care Teams Airplane Charter Clerk Relationship Specialty Start Date End Date Bentley Kyle MD [address] [place] [address] PCP - General Internal Medicine 04/18/21 documented as of this encounter
--- OUTSIDE RECORDS SUMMARY | 2024-10-14 06:00 | XMS_ITS | Encounter Summary ---
Author Organization [facility] Address [address] [place] [address] Care Team Providers Care Site Controller Name Role Phone Bentley Kyle MD Primary Care Provider [phone] Reason for Visit * Reason Onset Date Comments Information 04/27/2021 Encounter Details Date Type Department Care Team (Late st Contact Info) Description 04/27/[address] [facility] Pulmonology [facility] [address] [place] [address] Carson Pineda MD [address] [place] [address] Information Social History Tobacco Use [...] AM CDT documented as of this encounter Miscellaneous Notes * Telephone Encounter - Kiki Posada RN - 04/27/2021 5:38 PM CDT Spoke to pt. He will have CXR done prior to his appt. He was already scheduled for 05/23/21 at 3:45.He will keep that appt * Telephone Encounter - Carson Pineda MD - 04/27/2021 2:41 PM CDT Please schedule a follow-up appointment on 05/25/2021 at 8:45 AM, he needs to obtain a chest x-ray on the day of his follow-up visit before his appointment which has been ordered documented in this encounter Plan of Treatment Not on file documented as of this encounter Results * XR CHEST PA AND LATERAL 2 VW (05/23/2021 2:45 PM CDT) Anatomical Region Laterality Modality Chest Computed Radiogr aphy 05/23/2021 2:45 PM CDT Impressions 05/23/2021 3:16 PM CDT IMPRESSION: Increased opacity in the right apex is again seen. DICTATION LOCATION: Location [address] [place] [address] Narrative 05/23/2021 3:16 PM CDT CHEST 2 VIEWS ?? DATE: 05/23/2021 2:45 PM HISTORY: Centrilobular emphysema. COMPARISON: 04/20/2021. ?? FINDINGS: Increased opacity in the right apex is again seen, unchanged. No new infiltrate is visualized. There is no pneumothorax or pleural effusion. The lungs are mildly hyperinflated. Procedure Note Laura Turner MD - 05/23/2021 CHEST 2 VIEWS DATE: 05/23/2021 2:45 PM HISTORY: Centrilobular emphysema. COMPARISON: 04/20/2021. FINDINGS: Increased opacity in the right apex is again seen, unchanged. No new infiltrate is visualized. There is no pneumothorax or pleural effusion. The lungs are mildly hyperinflated. IMPRESSION: Increased opacity in the right apex is again seen. DICTATION LOCATION: Location [address] [place] [address] Carson Pineda MD DIAGNOSTIC IMAGING O RDERABLES documented in this encounter Visit Diagnoses Diagnosis Centrilobular emphysema- Primary Other emphysema Centrilobular emphysema Other emphysema documented in this encounter Care Teams Site Controller Relationship Specialty Start Date End Date Bentley Kyle MD [address] [place] [address] PCP - General Internal Medicine 04/18/21 documented as of this encounter
--- OUTSIDE RECORDS SUMMARY | 2024-10-14 06:00 | XMS_ITS | Clinical Summary ---
Author Organization [facility] 8 [facility] Address [address] [place] [address] Care Team Providers Care Templer Head Name Role Phone Aristeo Khan MD Primary Care Provider [phone] Ravi Queen MD Unavailable [phone] Allergies Active Allergy Reactions Criticality Noted Date [...] 06/28/2022 Insomnia secondary to chronic pain 06/28/2022 retirement (current) use of opiate analgesic 06/14 Resolved Problems Problem Noted Date Diagnosed Date Resolved Date Chronic pain of right knee 06/28/2022 0 11/13/2023 Encounters Date Type Department Care Team Description 09/09/2024 Documentation [facility] [address] [place] [address] A, [address] [place] [address] Liudmila Espinoza RN 09/01/2024 8:37 AM GOAT HERDER - 09/01/2024 11:59 PM GOAT HERDER Hospital Encounter [facility] [address] [facility] A, [address] [place] [address] Kenney Holder MD terminal clerk (current) use of opiate analgesic (Primary Dx); Chronic pain of right knee Discharge Disposition: Discharge to home or self care from Last 3 Months Medical History Medical History Date Comments Emphysema of lung (HCC) Knee pain, right Glaucoma Low back pain Chronic pain disorder Family History Medical History Relation Name Comments Arthritis Other Cancer Other Heart disease Other Relation Name Status Comments Other Social History Tobacco Use Types Packs/Day Years Used Date Smoking Tobacco: Former Smokeless Tobacco: Former Tobacco Cessation:Counseling Given: Not Answered PHQ-2 Answer Date Recorded PHQ-2 Total Score (If total score is 3 or more points, staff should administer the PHQ-9) 0 09/01/2024 Sex and Gender Information Value Date Recorded Sex Assigned at Not on file Legal Sex Male 8:01 PM GOAT HERDER Gender Identity Not on file Sexual Orientation Not on file Obstetrics History Last Filed Vital Signs Vital Sign Reading Time Taken Comments Blood Pressure 142/82 09/01/2024 9:08 AM GOAT HERDER Pulse 85 09/01/2024 9:08 AM GOAT HERDER Temperature 36.9 ??C (98.5 ??F) 04/02/2024 12:40 PM C DT Respiratory Rate 22 09/01/2024 9:08 AM GOAT HERDER Oxygen Saturation 95% 09/01/2024 9:08 AM GOAT HERDER Inhaled Oxygen Concentration - - Weight 111.1 kg (245 lb) 04/24/2019 10:20 AM CDT Height 172.7 cm (5' 8 ) 04/24/2019 10:20 AM CDT Body Mass Index 37.25 04/24/2019 10:20 AM CDT Plan of Treatment Health Maintenance Due Date Last Done Comments Colon Cancer Screening-Colonoscopy 1960 Hepatitis C Screening 1960 Hepatitis B Screening 01/22/1978 Regular Well Visit/Exam 18-64 01/22/1978 Zoster Vaccine (1 of 2) 01/22/2010 Pneumococcal vaccine <65 (2 of 2 - PCV) 05/08/2018 05/08/2017 Covid-19 Vaccine (2023-2 5 season) 2024 01/18/2022, 07/08/2021, 01/10/2021 Influenza Vaccine (#1) 2024 , 08/14/2020, 07/14/2019, Additional history exists Prostate Cancer Screening-PSA 09/27/2024 09/27/2022 Depression Screening 09/01/2025 09/01/2024, 09/01/2024, 06/11/2024, Additional history exists DTaP/Tdap/Td Vaccine (2 - Td or Tdap) 02/26/2033 02/26/2023 Goals Goal Patient Goal Type Associated Problems [...] Comments PSA SCREEN Routine 09/27/2022 10:21 AM GOAT HERDER from Last 3 Months or Most Recently Relevant to Health Maintenance Results * PSA screen (09/27/2022 10:21 AM GOAT HERDER) PSA-Total 0.70 <=5.40 ng/mL TALIB VILA Comment: [...] revised 22. Blood 09/27/2022 10:2 1 AM GOAT HERDER 09/27/2022 10:44 AM GOAT HERDER Aristeo Khan MD LAB BLOOD ORDERABLES Final Result Performing Organization Address City/State/[facility] Co hi Phone Number TALIB [phone] [facility] Department [place] [address] from Last 3 Months or Most Recently Relevant to Health Maintenance Insurance MEDICARE IDPA MEDICARE [facility] IDPA MEDICARE [facility] IDPA MEDICARE [employer] Care Teams Templer Head Relationship Specialty Start Date End Date Aristeo Khan MD [address] [place] [address] PCP - General 06/28/22 Ravi Queen MD [address] [place] [address] [address] [place] [id number] Anesthesiologist Pain Management 09/05/22
--- OUTSIDE RECORDS SUMMARY | 2024-10-14 06:00 | XMS_ITS | Encounter Summary ---
Author Organization [facility] Address [address] [place] [address] Care Team Providers Care Staff Scientist Name Role Phone Bentley Kyle MD Primary Care Provider [phone] Encounter Details Date Type Department Care Team (Late st Contact Info) Description 08/28/2023 External Device Data [facility] ABSTRACTION Provider, Abstract NO ADDRESS ON FILE Social History Tobacco Use Types Packs/Day Years [...] on filedocumented in this encounter Care Teams Staff Scientist Relationship Specialty Start Date End Date Bentley Kyle MD [address] [place] [id number] PCP - General Internal Medicine 04/18/21 documented as of this encounter
--- OUTSIDE RECORDS SUMMARY | 2024-10-14 06:00 | XMS_ITS | Encounter Summary ---
Author Organization [facility] Address [address] [place] [address] Care Team Providers Care Ferryboat Ticket Taker Name Role Phone Aristeo Khan MD Primary Care Provider [phone] Ravi Queen MD Unavailable [phone] Reason for Referral * Diagnostic Imaging (Routine) - Closed Specialty Diagnoses / Procedures Referred By Contac t Referred To Contact Diagnoses Osteoarthritis of right knee, unspecified osteoarthritis type Procedures Imaging Genicular Nerve Block (19488) Christen Curiel NP [address] [place] [address] Phone: tel: fax: [facility] [address] [place] [address] Referral ID Status Reason Start Date Expiration Date Visits Re quested Visits Authorized [id number] Closed 02/25/2024 03/26/2025 1 1 Reason for Visit * Reason Comments Med Management Follow-up Knee Pain Encounter Details Date Type Department Care Team (Latest Contact Info) Description 02/25/2024 7:40 AM CDT - 02/25/2024 11:59 PM CDT Hospital Encounter [facility] [address] [facility] [address] [place] [address] Christen Curiel NP [address] [facility] [address] [place] [address] Osteoarthritis of right knee, unspecified osteoarthritis type (Primary Dx) Discharge Disposition: Discharge to home or self care Social History Tobacco Use Types Packs/Day Years Used Date Smoking Tobacco: Former Smokeless Tobacco: Former PHQ-2 Answer Date Recorded PHQ-2 Total Score (If total score is 3 or more points, staff should administer the PHQ-9) 0 02/25/2024 Sex and Gender Information Value Date Recorded Sex Assigned at Not on file Legal Sex Male 8:01 PM HUMAN RESOURCES BENEFITS COORDINATOR Gender Identity Not on file Sexual Orientation Not on file documented as of this encounter Last Filed Vital Signs Vital Sign Reading Time Taken Comments Blood Pressure 120/64 02/25/2024 8:10 AM CDT Pulse 110 02/25/2024 8:10 AM CDT Temperature - - Respiratory Rate 22 02/25/2024 8:10 AM CDT Oxygen Saturation 93% 02/25/2024 8:10 AM CDT Inhaled Oxygen Concentration - - Weight - - Height - - Body Mass Index - - documented in this encounter Discharge Instructions * Attachments The following attachments cannot be sent through Care Everywhere. * Opioid Safety (Telemarketing Supervisor) (Jordanian) documented in this encounter Medications at Time [...] this encounter Progress Notes * Christen Curiel NP - 02/25/2024 8:00 AM CDT Patient Name: Bentley Mesa : 1960 Today's Date: 02/25/2024 PCP: Aristeo Khan MD Referring: Kenney Holder, * Chief Complaint Patient presents with Med Management Follow-up Knee Pain HPI Bentley Mesa is a 64 y.o. year old male seen today for medication refill for right knee pain. Pain Location: Right knee. Current pain level:3 Best pain level:3 Worse pain level:10 Pain Description: burning, sharp. Muscle weakness: Denies Numbness and tingling: Right big toe Provocative factors: walking, standing, too much activity Relieving factors include heat, TENS, topicals, Lidocaine patches, Acetaminophen, and Fluvanna. Modalities tried includes: Heat, Home exercise, TENS Medication tried includes: Acetaminophen (temporary relief), Lidocaine Patches (temporary relief), Prednisone (no relief), Ibuprofen (no relief), Aleve (no relief), Tramadol (no relief), Fluvanna (temporary relief) Denies incontinence of bowel/ bladder, unintentional weight loss, fever/chills, or saddle anesthesia. Denies side effects from Fluvanna(Constipation or significant sedation) 80% relief with Fluvanna Sleep: 6-8 hours Anticoagulant therapy: Denies Antibiotics: Denies Diabetic: Denies Implanted device: Denies Pain Score: 3 Patient's Stated Pain Goal: 1 Pain Location: Knee Pain Radiating Towards: denies Pain Descriptors: Burning;Sharp Pain Frequency: Constant/continuous Pain Onset: Gradual Clinical Progression: Not changed Effect of Pain on Daily Activities: able to complete Allergies Allergen Reactions Oxycodone Hives and Itching [...] fluticasone propionate (FLONASE) 50 mcg/actuation nasal spray brqyoyuoyqt-hcqtnkyjf-ftagjbta ([place]onhala Magnair Starter) 25 mcg/mL solution for nebulization HYDROcodone-acetaminophen (NORCO) 5-325 mg per tablet HYDROcodone-acetaminophen (NORCO) 5-325 mg per tablet HYDROcodone-acetaminophen (NORCO) 5-325 mg per tablet ipratropium (ATROVENT HFA) 17 mcg/actuation inhaler latanoprost (XALATAN) 0.005 % ophthalmic solution naloxone (NARCAN) 4 mg/actuation spray,non-aerosol omeprazole (PriLOSEC) 20 mg capsule predniSONE (DELTASONE) 10 mg tablet promethazine-DM (PROMETHAZINE-DM) 1.25-3 mg/mL syrup raNITIdine (ZANTAC) 150 mg tablet Review of Systems Review of Systems Constitutional: Negative for activity change, appetite change, chills, fatigue and fever. HENT: Negative for congestion, ear pain, sinus pressure, sinus pain and trouble swallowing. Eyes: Negative for visual disturbance. Respiratory: Negative for shortness of breath and [...] weakness (right knee weakness) and numbness (right knee). Negative for dizziness, tremors, seizures, syncope and headaches. Hematological: Does not bruise/bleed easily. Psychiatric/Behavioral: Negative for sleep disturbance and suicidal ideas. The patient is not nervous/anxious. Physical Exam Vitals: 02/25/24 0810 BP: 120/64 Pulse: 110 Resp: 22 SpO2: 93% There is no height or [...] normal. Musculoskeletal: Cervical back: Normal range of motion. Right knee: No swelling, erythema or ecchymosis. Decreased range of motion. Tenderness present. Left knee: No swelling, erythema or ecchymosis. Normal range of motion. No tenderness. Skin: General: Skin is warm and dry. [...] is reduced Heel Stand is bilaterally reduced Imagin04/21/2019 X-Ray Right Knee: Upon my review of the images, negative for fracture dislocation. Severe tricompartmental degenerative changes on the right, moderate on the left. No periosteal reaction or bone destruction. Well corticated calcification noted at the medial collateral ligament insertion on the left medial femoral condyle. Review of Data: Checked the [place] WATER RIGHTS SPECIALIST sheet and it was consistent with our meds. UDT results: today (02/25/24) Morphine Milligram Equivalents (MME): 20 PEG Scale Assessing Pain intensity and interference with score of 5.3 Current Opioid Misuse Measure (COMM) reviewed with score of 7 Patient Health Questionnaire (PHQ9) 0 Oswestry Low Back Disability Questionnaire reviewed with score of 31/50 The patient has a prescription for intranasal Narcan for the management of opioid induced respiratory depression or excess sedation. MIPS Pre-hypertension/hypertension: Patient has been diagnosed with hypertension. Treated and blood pressure within normal limits Tobacco Screening: screened for tobacco use. Patient is not a tobacco user. Tobacco counseling is not applicable. Problem List Musculoskeletal and Injuries Osteoarthritis of right knee - Primary Relevant Orders Imaging Genicular Nerve Block (11552) Assessment/Plan I saw Bentley Mesa a 64 y.o. year old male seen today for medication refill for right knee pain. Based on the history, and physical exam my impression is the patient has a primary diagnosis of chronic right knee pain, right knee osteoarthritis and long-term use of opiate analgesics. Fluvanna provides 80% pain relief and allows him to cook, be more mobile, go to therapy three days per week, and complete daily task with less suffering. No s/s of aberrant behavior. Discussed right genicular nerve block due to severe OA and Silver Miner Blasting will not clear for surgery. Patient is agreeable and wants to proceed with the goal of right genicular RFA. Denies questions and agrees to the mentioned above plan of care. In the past, patients have tried and failed at least 3 months or more of conservative measures including activity modification, home exercise, rest, physical therapy for knee, and OTC home medications. eBntley does not show signs associated with controlled-substance abuse, such as appearing sedated, confused, intoxicated, or exhibiting withdrawal like symptoms. I will refill Fluvanna 5-325 mg every 6 hours as needed.Will see back in 3 months for repeat evaluation. Goals of Treatment: [...] may be discussed at the next visit. PATIENT EDUCATION: Learning needs assessment was performed, and no barriers identified. Explained diagnosis and treatment plan. Patient expressed understanding and was able to teach back. I, Christen Curiel, have personally performed the services described in the documentation, and it accurately and completely records my words and actions though there are potential variances in recording and life insurance sales agent. Dictated not proofread. This note is prepared by Christen Curiel NP 02/25/2024 Cosigned by Kenney Holder MD at 03/03/2024 7:21 AM CDT documented in this encounter Miscellaneous Notes * Addendum Note - Christen Curiel NP - 02/25/2024 8:00 AM CDTEncounter addended by: Christen Curiel NP on: 02/25/2024 9:31 AM Actions taken: Level of Service modified * Addendum Note - Liudmila Espinoza RN - 02/25/2024 8:00 AM CDTEncounter addended by: Liudmila Espinoza RN on: 02/25/2024 9:48 AM Actions taken: Charge Capture section accepted [...] of life. documented as of this encounter Results * Imaging Genicular Nerve Block (79036) (04/02/2024 1:02 PM CDT) Narrative [facility] - 04/02/2024 1:02 PM CDT The images from this study are not interpreted by Radiology. ??Please refer to the physician's procedure / OR operative note. Christen Curiel NP IMG PAIN MGMT PROCEDURES Fi nal Result [facility] documented in this encounter Visit Diagnoses Diagnosis Osteoarthritis of right knee, unspecified osteoarthritis type- Primary Osteoarthritis of right knee, unspecified osteoarthritis type documented in this encounter Care Teams Ferryboat Ticket Taker Relationship Specialty Start Date End Date Aristeo Khan MD [address] [place] [address] PCP - General 06/28/22 Ravi Queen MD [address] [facility] [address] [place] [address] Anesthesiologist Pain Management 09/05/22 documented as of this encounter
--- OUTSIDE RECORDS SUMMARY | 2024-10-14 06:00 | XMS_ITS | Encounter Summary ---
Author Organization [facility] Healthcare Address [address] [place] [address] Care Team Providers Care Strategic Planning Manager Name Role Phone Aristeo Khan MD Primary Care Provider Ravi Queen MD Unavailable [phone] Encounter Details Date Type Department Care Team (Late st Contact Info) Description 08/02/2023 8:00 AM CDT Ancillary Procedure [facility] Outside Films Social History Tobacco Use Types Packs/Day Years Used Date Smoking Tobacco: Former Smokeless Tobacco: Former PHQ-2 Answer Date Recorded PHQ-2 Total Score (If total score is 3 or more points, staff should administer the PHQ-9) 0 12/27/2022 Sex and Gender Information Value Date Recorded Sex Assigned at Not on file Legal Sex Male 8:01 PM RACK PUSHER Gender Identity Not on file Sexual Orientation [...] Procedure Name Priority Date/Time Associated Diagnosis Comments XR TRANSFER OF OUTSIDE FILMS Routine 08/02/2023 8:00 AM CDT documented in this encounter Results * XR Outside Reference (08/02/2023 8:00 AM CDT) Narrative [facility] - 11/13/2023 2:18 PM RACK PUSHER This order has been auto-finalized and does not contain a result. us Not In File Miscellaneous IMG XR PROCEDURES Ro l Result [facility] documented in this encounter Visit Diagnoses Not on filedocumented in this encounter Care Teams Strategic Planning Manager Relationship Specialty Start Date End Date Aristeo Khan MD [address] [place] [address] PCP - General 06/28/22 Ravi Queen MD 2 [facility] [address] GUZM[address]N [address] [place] [address] Anesthesiologist Pain Management 09/05/22 documented as of this encounter
--- OUTSIDE RECORDS SUMMARY | 2024-10-14 06:00 | XMS_ITS | Encounter Summary ---
Author Organization [facility] Address [address] [facility] Attn: Epic Prelude ADT FRANCOISE CASTRO [address] Care Team Providers Care Shoe Repairer Apprentice Name Role Phone Bentley Kyle MD Primary Care Provider Encounter Details Date Type Department Care Team (Latest Contact Info) Description 10/26/2021 Travel Social History Tobacco Use Types Packs/Day [...] have Coronavirus / COVID-19? 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
--- OUTSIDE RECORDS SUMMARY | 2024-10-14 06:00 | XMS_ITS | Encounter Summary ---
Author Organization [facility] Address [address] [facility] [address] Elena: Epic Prelude ADT COLBY OWEN FRANCOISE [address] Care Team Providers Care Toll Bridge Attendant Name Role Phone Unavailable Primary Care Provider Unavailabl e Encounter Details Date Type Department Care Team (Latest Contact Info) Description 01/30/2021 Travel Social History Tobacco Use Types Packs/Day [...] have Coronavirus / COVID-19? No / Unsure 01/30/2021 10:05 AM CDT documented as of this encounter Plan of Treatment Not on file documented as of this encounter Visit Diagnoses Not on filedocumented in this encounter
--- OUTSIDE RECORDS SUMMARY | 2024-10-14 06:00 | XMS_ITS | Encounter Summary ---
Author Organization [facility] Address [address] [place] [address] Care Team Providers Care Joint Special Operations Name Role Phone Bentley Kyle MD Primary Care Provider [phone] Reason for Referral * CT Scan (Routine) - Closed Specialty Diagnoses / Procedures Referred By Contac t Referred To Contact Radiology Diagnoses Centrilobular emphysema Procedures CT CHEST HIGH RESOLUTION Carson Pineda MD [address] [place] [address] Scan [address] [place] [address] Referral ID Status Reason Start Date Expiration Date Visits Re quested Visits Authorized [id number] Closed 11/10/2021 12/11/2021 1 1 COMPOSER Reason for Visit * CT Scan (Routine) - Closed Specialty Diagnoses / Procedures Referred By Contac t Referred To Contact Radiology Diagnoses Centrilobular emphysema Procedures CT CHEST HIGH RESOLUTION Casron Pineda MD [address] [place] [address] Scan [address] [place] [address] Referral ID Status Reason Start Date Expiration Date Visits Re quested Visits Authorized [id number] Closed 11/10/2021 12/11/2021 1 1 Encounter Details Date Type Department Care Team (Latest Contact Info) Description 11/14/2021 12:25 PM FILM COMPOSER - 11/14/2021 11:59 PM FILM COMPOSER Hospital Encounter [facility] CT Scan [address] [place] [address] Carson Pineda MD [address] [place] [address] Discharge Disposition: Home or Self Care Social [...] COVID-19? No / Unsure 11/14/2021 12:22 PM FILM COMPOSER documented as of this encounter Medications at [...] by mouth. documented as of this encounter Plan of Treatment Not on file documented as of this encounter Procedures Procedure Name Priority Date/Time Associated Diagnosis Comments CT CHEST HIGH RESOLUTION Routine 11/14/2021 12:50 PM FILM COMPOSER documented in this encounter Results * CT CHEST HIGH RESOLUTION (11/14/2021 12:50 PM FILM COMPOSER) Anatomical Region Laterality Modality Chest Computed Tomogra phy 11/14/2021 1:1 2 PM FILM COMPOSER Addenda Addendum by Suzanne Pete MD on 11/17/2021 1:48 PM FILM COMPOSER CORRECTED REPORT - ?? EXAMINATION: CT OF [...] intravenous contrast. DICTATION LOCATION: Location 1 - [facility] Impressions 11/14/2021 5:08 PM FILM COMPOSER IMPRESSION: ?? Emphysema with interval placement of endobronchial valves in the right upper lobe with complete right upper lobe collapse. While this is likely all related to the valves, there is a rounded contour of the lower aspect of the collapsed right upper lobe and mass is not excluded on this study given lack of intravenous contrast. DICTATION LOCATION: Location 1 - [facility] 11/14/2021 5:08 PM FILM COMPOSER EXAMINATION: CT OF THE CHEST WITHOUT CONTRAST [...] intravenous contrast. DICTATION LOCATION: Location 1 - [facility] Carson Pineda MD CT ORDERABLES documented in this encounter Visit Diagnoses Not on filedocumented in this encounter Care Teams Joint Special Operations Relationship Specialty Start Date End Date Bentley Kyle MD [address] [place] [address] PCP - General Internal Medicine 04/18/21 documented as of this encounter
--- OUTSIDE RECORDS SUMMARY | 2024-10-14 06:00 | XMS_ITS | Encounter Summary ---
Author Organization [facility] Healthcare Address [address] [place] [address] Care Team Providers Care Low Pressure Boiler Tender Name Role Phone Aristeo Khan MD Primary Care Provider [phone] Encounter Details Date Type Department Care Team (Late st Contact Info) Description 07/19/2022 Orders Only [facility] [address] [place] [address] A, 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 Gender Identity Not on file Sexual Orientation Not on file documented as of this encounter Ordered Prescriptions Prescription Sig Dispense Quantity Refills Last Filled Start Date End Date HYDROcodone-acetam inophen (NORCO) 5-325 mg per tabletIndications: Pain Take 1 tablet by mouth 4 (four) times a day as needed for pain 120 tablet 08/27/2022 09/19/2022 HYDROcodone-acetam inophen (NORCO) 5-325 mg per tabletIndications: Pain Take 1 tablet by mouth 4 (four) times a day as needed for pain 120 tablet 07/28/2022 12/07/2022 documented in this encounter Progress Notes * Rosaline Rdz SWORD SWALLOWER - 07/19/2022 8:52 AM CDT Pt was seen in the [...] a day as needed for pain Reorder 06/28/2022 07/19/2022 documented as of this encounter Care Teams Low Pressure Boiler Tender Relationship Specialty Start Date End Date Aristeo Khan MD [address] [place] [address] PCP - General 06/28/22 documented as of this encounter
--- OUTSIDE RECORDS SUMMARY | 2024-10-14 06:00 | XMS_ITS | Encounter Summary ---
Author Organization [facility] Healthcare Address [address] [place] [address] Care Team Providers Care Break Out Worker Name Role Phone Aristeo Khan MD Primary Care Provider [phone] Ravi Queen MD Unavailable [phone] Encounter Details Date Type Department Care Team (Late st Contact Info) Description 04/03/2024 Orders Only [facility] [address] [facility] A, 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 Author [facility] On track( 023 1:36 PM CDT) No Esperanza Amaral, GORDON Note: Patient will establish a comfort-function goal and identify the pain level that will allow the patient to perform desired activities and achieve an acceptable quality of life. documented as of this encounter Visit Diagnoses Not on filedocumented in this encounter Care Teams Break Out Worker Relationship Specialty Start Date End Date Aristeo Khan MD [address] [place] [address] PCP - General 06/28/22 Ravi Queen MD 2 [facility] [address] [address] Anesthesiologist Pain Management 09/05/22 documented as of this encounter
--- OUTSIDE RECORDS SUMMARY | 2024-10-14 06:00 | XMS_ITS | Encounter Summary ---
Author Organization [facility] Healthcare Address [address] [place] [address] Care Team Providers Care It Administrative Assistant Name Role Phone Aristeo Khan MD Primary Care Provider Ravi Queen MD Unavailable [phone] Encounter Details Date Type Department Care Team (Late st Contact Info) Description 09/27/2022 9:45 AM 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 Lab [facility] Lab [address] [place] [address] Social History Tobacco Use Types Packs/Day Years Used Date Smoking Tobacco: Former Smokeless Tobacco: Former PHQ-2 Answer Date Recorded PHQ-2 Total Score (If total score is 3 or more points, staff should administer the PHQ-9) 0 09/19/2022 Sex and Gender Information Value Date Recorded Sex Assigned at Not on file Legal 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 Gender Identity Not on file Sexual [...] Procedure Name Priority Date/Time Associated Diagnosis Comments EGFR Routine 09/27/2022 10:21 AM 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 DIFFERENTIAL AUTO Routine 09/27/2022 10: 21 AM 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 THYROID FUNCTION CASCADE Routine 09/27/2022 10:21 AM 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 PSA SCREEN Routine 09/27/2022 10:21 AM 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 CBC WITH AUTO DIFFERENTIAL Routine 09/27/2022 10:21 AM 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 HEMOGLOBIN A1C Routine 09/27/2022 10:21 AM 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 LIPID PANEL Routine 09/27/2022 10:21 AM 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 COMPREHENSIVE METABOLIC PANEL Routine 09/27/2022 10:21 AM 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 documented in this encounter Results * eGFR (09/27/2022 10:21 AM 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) [facility] eGFR 97 mL/min/1. 73 m2 [facility] Comment: Interpretive Data Reference Interval Normal ?>/= 90 mL/min/1.73m2 Mildly decreased* ? 60 - 89 mL/min/1.73m2 Mildly to moderately decreased ?45 - 59 mL/min/1.73m2 Moderately to severely decreased ??30 - 44 mL/min/1.73m2 Severely decreased ?15 - 29 mL/min/1.73m2 Kidney Failure ?< 15 ??mL/min/1.73m2 *Relative to young adult level Estimated glomerular filtration rate is determined by the 2020 CKD-EPI equation recommended by the National Kidney Foundation (A Unifying Approach to GFR Estimation: Recommendations of the NKF-ASK Task Force on Reassessing the Inclusion of Race in Diagnosing Kidney Disease, JASN 202). The CKD-EPI equation should not be used for patients with unstable renal function and has not been validated in children and those over 70. Current interpretive data was last reviewed 2021. Blood 09/27/2022 10:2 1 AM 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 09/27/2022 10:44 AM 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 us Aristeo Khan MD LAB BLOOD ORDERABLES Final Result [facility] [address] [facility] Department [place] [address] * (ABNORMAL) Differential, auto (09/27/2022 10:21 AM 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) Pathologist [facility] Neutrophil abs 5.0 1.7 - 6.5 K/cumm [facility] Imm gran abs 0.0 0.0 - 0.1 K/cumm [facility] Lymphocyte abs 1.5 0.8 - 3.3 K/cumm [facility] Monocyte abs 0.9(H) 0.2 - 0.8 K/cumm [facility] Eosinophil abs 0.6(H) 0.0 - 0.5 K/cumm [facility] Basophil abs 0.1 0.0 - 0.1 K/cumm [facility] Neutrophil pct 61.7 % [facility] Comment: Interpretive Data Percent cell count reference ranges are not reported, since discordance with absolute values may lead to misinterpretation of CBC data. Current Interpretive Data was last revised on 2018. Imm gran pct 0.2 % [facility] Comment: Interpretive Data Percent cell count reference ranges are not reported, since discordance with absolute values may lead to misinterpretation of CBC data. Current Interpretive Data was last revised on 2018. Lymphocyte pct 18.2 % [facility] Comment: Interpretive Data Percent cell count reference ranges are not reported, since discordance with absolute values may lead to misinterpretation of CBC data. Current Interpretive Data was last revised on 2018. Monocyte pct 11.6 % [facility] Comment: Interpretive Data Percent cell count reference ranges are not reported, since discordance with absolute values may lead to misinterpretation of CBC data. Current Interpretive Data was last revised on 2018. Eosinophil pct 6.8 % [facility] Comment: Interpretive Data Percent cell count reference ranges are not reported, since discordance with absolute values may lead to misinterpretation of CBC data. Current Interpretive Data was last revised on 2018. Basophil pct 1.5 % [facility] Comment: Interpretive Data Percent cell count reference ranges are not reported, since discordance with absolute values may lead to misinterpretation of CBC data. Current Interpretive Data was last revised on 2018. Blood 09/27/2022 10:2 1 AM 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 09/27/2022 10:44 AM 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 us Aristeo Khan MD LAB BLOOD ORDERABLES Final Result [facility] [address] [facility] Department [place] [address] * PSA screen (09/27/2022 10:21 AM 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) PSA-Total 0.70 <=5.40 ng/mL [facility] Comment: [...] revised 22. Blood 09/27/2022 10:2 1 AM 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 09/27/2022 10:44 AM 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 us Aristeo Khan MD LAB BLOOD ORDERABLES Final Result Performing Organization Address [facility] de Phone Number [facility] [address] [facility] [place] [address] * Hemoglobin A1c (09/27/2022 10:21 AM 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) Hgb A1C 5.5 4.0 - 5.6 % [facility] Estimated Average Glucose 111 mg/dL [facility] Comment: The ADA recommends reporting an estimated Average Glucose (eAG) with all Hemoglobin A1c results using the equation derived from a study of 507 normal and diabetic adults. ??Minority populations were underrepresented and children were not included. ?? (Diabetes Care 31:8803-2463, 2008). ??The eAG is not equivalent to a fasting glucose. Blood 09/27/2022 10:2 1 AM 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 09/27/2022 10:44 AM 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 Aristeo Khan MD LAB BLOOD ORDERABLES Final Result Performing Organization Address [facility] de Phone Number [place] [phone] [facility] [place] [address] * TSH reflex to free T4 (09/27/2022 10:21 AM 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) Pathologist [facility] TSH 0.94 0.30 - 4.20 mcIUnit/mL [facility] Blood 09/27/2022 10:2 1 AM 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 09/27/2022 10:44 AM 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 Aristeo Khan MD LAB BLOOD ORDERABLES Edited Result - Final Performing Organization Address [facility] de Phone Number [facility] [address] [facility] [place] [address] * Lipid panel (09/27/2022 10:21 AM 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) Cholesterol 163 30 - 199 mg/dL [facility] Comment: Interpretive Data Ages < or = 19 years ??Acceptable: ? <170 mg/dL ??Borderline high: ??170-199 mg/dL ??High: ? >or= 200 mg/dL Ages > or = 20 years ??Desirable: ?<200 mg/dL ??Borderline high: ??200-239 mg/dL ??High: ? >or= 240 mg/dL Literature References: 1. Expert Panel on Integrated Guidelines for Cardiovascular Health and Risk Reduction in Children and Adolescents. Pediatrics 2011;128:S213 2. NCEP Expert Panel. Circulation 2004;110:227 Current Interpretive Data was last revised on 2018. Triglycerides 67 <=149 mg/dL [facility] Comment: Interpretive Data Ages < or = 9 years ??Acceptable: ? <75 mg/dL ??Borderline high: ??75-99 mg/dL ??High: ? >or= 100 mg/dL Ages 10 to 20 years ??Acceptable: ? <90 mg/dL ??Borderline high: ??90-129 mg/dL ??High: ? >or= 130 mg/dL Ages > or = 20 years ??Desirable: ?<150 mg/dL ??Borderline high: ??150-199 mg/dL ??High: ? 200-499 mg/dL ?Very high: ?? >or= 499 mg/dL Literature References: 1. Expert Panel on Integrated Guidelines for Cardiovascular Health and Risk Reduction in Children and Adolescents. Pediatrics 2011;128:S213 2. NCEP Expert Panel. Circulation 2004;110:227 Current Interpretive Data was last revised on 2018. HDL 47 >=40 mg/dL [facility] Comment: Interpretive Data Ages < or = 19 years ??Acceptable: ? >45 mg/dL ??Borderline low: ?? 40-45 mg/dL ??Low: ? <40 mg/dL Ages > or = 20 years ??Desirable: ?>or= 60 mg/dL ??Low: ? <40 mg/dL Literature References: 1. Expert Panel on Integrated Guidelines for Cardiovascular Health and Risk Reduction in Children and Adolescents. Pediatrics 2011;128:S213 2. NCEP Expert Panel. Circulation 2004;110:227 Current Interpretive Data was last revised on 2018. LDL, calculated 103 <=129 mg/dL [facility] Comment: Interpretive Data Ages < or = 19 years ??Acceptable: ? <110 mg/dL ??Borderline high: ??110-129 mg/dL ??High: ?>or= 130 mg/dL Ages > or = 20 years ??Optimal: ? <100 mg/dL ??Near optimal: ?100-129 mg/dL ??Borderline high: ?? 130-159 mg/dL ??High: ?>160 mg/dL Literature References: 1. Expert Panel on Integrated Guidelines for Cardiovascular Health and Risk Reduction in Children and Adolescents. Pediatrics 2011;128:S213 2. NCEP Expert Panel. Circulation 2004;110:227 Current Interpretive Data was last revised on 2018. Non-HDL Cholesterol 116 mg/dL [facility] Comment: Interpretive Data Ages < or = 19 years ??Acceptable: ?<120 mg/dL ??Borderline high: ??120-144 mg/dL ??High: ?>145 mg/dL Ages > or = 20 years ??When triglycerides are >200 mg/dL, Non-HDL cholesterol is a secondary target of ? therapy with treatment goals that are 30 mg/dL greater than the LDL cholesterol target. ? Literature References: 1. Expert Panel on Integrated Guidelines for Cardiovascular Health and Risk Reduction in Children and Adolescents. Pediatrics 2011;128:S213 2. NCEP Expert Panel. Circulation 2004;110:227 Current Interpretive Data was last revised on 2018. Chol/HDL ratio 3 [facility] Blood 09/27/2022 10:2 1 AM 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 09/27/2022 10:44 AM 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 us Aristeo Khan MD LAB BLOOD ORDERABLES Final Result Performing Organization Address City/[facility] Co de Phone Number [facility] [address] [place] [address] * (ABNORMAL) CBC with auto differential (09/27/2022 10:21 AM 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) [facility] WBC 8.1 3.8 - 9.9 K/cumm [facility] Hgb 13.3 13.0 - 17.5 g/dL [facility] Hct 41.1 38.9 - 50.3 % [facility] Plt 328 150 - 400 K/cumm [facility] MPV 10.5 9.1 - 12.3 fL [facility] RBC 4.39 4.30 - 5.80 M/cumm [facility] MCV 93.6 81.3 - 96.4 fL [facility] MCH 30.3 27.1 - 33.3 pg [facility] MCHC 32.4 32.3 - 35.7 g/dL [facility] RDW CV 14.8 11.1 - 14.9 % [facility] RDW SD 51.5(H) 35.7 - 48.1 fL [facility] NRBC abs 0.00 0.00 - 0.01 K/cumm [facility] Blood 09/27/2022 10:2 1 AM 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 09/27/2022 10:44 AM 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 Aristeo Khan MD LAB BLOOD ORDERABLES Final Result Performing Organization Address [facility] Co de Phone Number [facility] [address] [facility] [place] [address] * Comprehensive metabolic panel (09/27/2022 10:21 AM 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) [facility] Sodium 136 135 - 145 mmol/L [facility] Potassium, pl 4.3 3.3 - 4.9 mmol/L [facility] Chloride 101 97 - 110 mmol/L [facility] CO2 26 22 - 32 mmol/L [facility] Anion gap 9 2 - 15 mmol/L [facility] BUN 18 8 - 25 mg/dL [facility] Creatinine 0.90 0.80 - 1.30 mg/dL [facility] Glucose 83 70 - 199 mg/dL [facility] Comment: Interpretive Data Fasting glucose >/= 126 mg/dl is diagnostic for diabetes. ?? Fasting is defined as no caloric intake for at least 8 hours. Fasting glucose between 100 mg/dl to 125 mg/dl is diagnostic of prediabetes. In a patient with classic symptoms of hyperglycemia or hyperglycemic crisis, a random glucose >/= 200 mg/dl is diagnostic for diabetes. In the absence of unequivocal hyperglycemia, results should be confirmed by repeat testing. The classification and Diagnosis of Diabetes Diabetes Care 2017;40 (Suppl. 1):S11. Current interpretive data was last revised 2017. Calcium 9.3 8.5 - 10.3 mg/dL [facility] Bilirubin, total 0.2 0.1 - 1.2 mg/dL [facility] Protein, pl 7.7 6.5 - 8.5 g/dL [facility] Albumin 4.3 3.5 - 5.0 g/dL [facility] Alk phos 127 40 - 130 Units/L [facility] ALT 26 7 - 55 Units/L [facility] AST 29 10 - 50 Units/L [facility] Blood 09/27/2022 10:2 1 AM 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 09/27/2022 10:44 AM 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 Aristeo Khan MD LAB BLOOD ORDERABLES Final Result [facility] [address] [facility] Department [place] [address] documented in this encounter Visit Diagnoses Not on filedocumented in this encounter Care Teams It Administrative Assistant Relationship Specialty Start Date End Date Aristeo Khan MD [address] [place] [address] PCP - General 06/28/22 Ravi Queen MD [address] [place] [address] DR GU[address]N [address] [place] [address] Anesthesiologist Pain Management 09/05/22 documented as of this encounter
--- OUTSIDE RECORDS SUMMARY | 2024-10-14 06:00 | XMS_ITS | Encounter Summary ---
Author Organization [facility] Address [address] Attn: Epic Prelude ADT [place]AN[place] CASTRO [address] Care Team Providers Care Director Of Outpatient Services Name Role Phone Bentley Kyle MD Primary Care Provider [phone] Encounter Details Date Type Department Care Team (Latest Contact Info) Description 05/23/2021 Travel Social History Tobacco Use Types Packs/Day [...] PM CDT documented as of this encounter Plan of Treatment Not on file documented as of this encounter Visit Diagnoses Not on filedocumented in this encounter Care Teams Director Of Outpatient Services Relationship Specialty Start Date End Date Bentley Kyle MD [address] [place] [id number] PCP - General Internal Medicine 04/18/21 documented as of this encounter
--- OUTSIDE RECORDS SUMMARY | 2024-10-14 06:00 | XMS_ITS | Encounter Summary ---
Author Organization [facility] Healthcare Address [address] [place] [address] Care Team Providers Care Street Vendor Name Role Phone Aristeo Khan MD Primary Care Provider [phone] Ravi Queen MD Unavailable Encounter Details Date Type Department Care Team (Late st Contact Info) Description 12/07/2022 Orders Only [facility] 2 [facility] 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 Patient is being discharged from over a month long hospitalstay for pneumonia. Patient's is requesting refill on norco since his refill was at [facility] and they permanently closed. Rosaline Rdz is out of the office. Dr. Queen made aware. Dalton refilled at [facility] for one month supply. Patient's was advised to call office and make an appointment for follow up as soon as everything gets situated at home with home health. OR CLINICAL SAS PROGRAMMER documented in this encounter Plan of Treatment [...] a day as needed for pain Reorder 07/28/2022 12/07/2022 documented as of this encounter Care Teams Street Vendor Relationship Specialty Start Date End Date Aristeo Khan MD [address] [place] [address] PCP - General 06/28/22 Ravi Queen MD [address] [place] [address] DR GUZMÁN [address] [place] [address] Anesthesiologist Pain Management 09/05/22 documented as of this encounter
--- OUTSIDE RECORDS SUMMARY | 2024-10-14 06:00 | XMS_ITS | Encounter Summary ---
Author Organization [facility] Healthcare Address [address] [place] [address] Care Team Providers Care Juke Box Servicer Name Role Phone Aristeo Khan MD Primary Care Provider Ravi Queen MD Unavailable [phone] Reason for Visit * Reason Comments Back Pain Knee Pain RIGHT Med Management Follow-up Encounter Details Date Type Department Care Team (Latest Contact Info) Description 11/13/2023 1:38 PM STUDENT ADVISOR - 11/13/2023 11:59 PM STUDENT ADVISOR Hospital Encounter [facility] 2 [facility] [address] [place] [address] Kenney Holder MD [address] [place] [address] [address] [place] [address] Chronic pain of right knee Discharge Disposition: Discharge to home or self care Social History Tobacco Use Types Packs/Day Years Used Date Smoking Tobacco: Former Smokeless Tobacco: Former PHQ-2 Answer Date Recorded PHQ-2 Total Score (If total score is 3 or more points, staff should administer the PHQ-9) 0 11/13/2023 Sex and Gender Information Value Date Recorded Sex Assigned at Not on file Legal Sex Male 8:01 PM STUDENT ADVISOR Gender Identity Not on file Sexual Orientation Not on file documented as of this encounter Last Filed Vital Signs Vital Sign Reading Time Taken Comments Blood Pressure 122/101 11/13/2023 2:09 PM STUDENT ADVISOR Pulse 99 11/13/2023 2:09 PM STUDENT ADVISOR Temperature - - Respiratory Rate 16 11/13/2023 2:09 PM STUDENT ADVISOR Oxygen Saturation 100% 11/13/2023 2:09 PM STUDENT ADVISOR Inhaled Oxygen Concentration - - Weight - [...] day as needed for pain 120 tablet 11/13/2023 4 HYDROcodone-aceta minophen (NORCO) 5-325 mg per tabletIndications :Pain Take 1 tablet by mouth 4 (four) times a day as needed for pain 120 tablet 12/13/2023 4 HYDROcodone-aceta minophen (NORCO) 5-325 mg per tabletIndications :Pain Take 1 tablet by mouth 4 (four) times a day as needed for pain 120 tablet 01/12/2024 4 documented as of this encounter Ordered Prescriptions Prescription Sig Dispense Quantity Refills Last Filled Start Date End Date HYDROcodone-acetam inophen (NORCO) 5-325 mg per tabletIndications: Pain Take 1 tablet by mouth 4 (four) times a day as needed for pain 120 tablet 01/12/2024 02/04/2024 HYDROcodone-acetam inophen (NORCO) 5-325 mg per tabletIndications: Pain Take 1 tablet by mouth 4 (four) times a day as needed for pain 120 tablet 12/13/2023 02/25/2024 HYDROcodone-acetam inophen (NORCO) 5-325 mg per tabletIndications: Pain Take 1 tablet by mouth 4 (four) times a day as needed for pain 120 tablet 11/13/2023 02/25/2024 documented in this encounter Discharge Disposition Disposition Code Departure Means Destination Discharge to home or self care documented in this encounter Progress Notes * Kenney Holder MD - 11/13/2023 2:00 PM CST Treatment Summary Impression: Generalized chronic pain on long-term opioids The following imaging/procedural orders were placed during this visit: No orders of the defined types were placed in this encounter. Medications: Plato 5-325 QID PRN Follow up: 3 months Today's Date: 11/13/2023 Patient Name: Bentley Mesa Age: 63 y.o. [facility] Return Visit Subjective Bentley Mesa returns today for ongoing treatment regarding his history of axial mid/upper backand R knee pain. Recall PMH is notable for history of substance abuse in long-term remission, COPD on home oxygen . Patient was last seen in clinic on 08/01/2023 by my colleague, Christen Curiel. At that time, we provided refill of his Plato 5-325 Q6H PRN, ordered physical therapy for his chronic low back pain, andordered updated lumbar plain films (concerned that he would not be able to tolerate MRI given his respiratory status). Presents today for routine 2 month visit. Reports that today, pain is Pain Score: 8 (10 WORST, 2 BEST)/10 and is similar to the pain described previously, see below for pain questionnaire answers. The patient denies neurogenic claudication symptoms, no numbness or paresthesias. No red flag symptoms such as unexpected bowel/bladder incontinence, saddle anesthesia, fevers, chills, or unintentional weight loss. Description: Pain Descriptors: Burning, Sharp Location: Pain Location: Back (Cervical) Aggravating factors: standing, walking, ADLs Alleviating factors: rest and heat Radiation?: Pain Radiating Towards: LEFT NECK, NUMBNESS IN LEFT BIG TOE, STATES HAS WEAKNESS IN RIGHT LEG AT TIMES Of note, seen by Orthopedics in the past (Dr. 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 This was in 2019, I do not see any follow up from this. THERAPIES TO DATE INTERVENTIONS (this clinic only): RELEVANT SURGERIES: Per patient, has had numerous injections in [...] [] Fioricet [] Meloxicam [] Carbamazepine [x] Plato [] Fentanyl [] Metaxalone [] Diclofenac [] Naltrexone [] Percocet [] Buprenorphine [] Methocarbamol [] Celebrex [] Morphine [] Nucynta [] Soma Other: CONSERVATIVE MEASURES [x] Physical Therapy [] Chiropractor [x] Home Exercise [] Yoga/stretching [x] TENS Unit [x] OTC medications (see above) [x] Heat/ice [] Other Pt has tried the conservative measures indicated above for at least 4 weeks with inadequate relief. Bentley Mesa's history was reviewed and updated as appropriate including past medical history,past surgical history, social history, family history, allergies, and home medication list. A review of systems was completed, reviewed, and scanned into the chart. ALVIN, PEG Scale, and Current Opioid Misuse Measure (COMM) reviewed during this encounter. Modified Oswestry Low Back Pain Score: 35 Objective Vitals: 11/13/23 1409 BP: (!) 122/101 Pulse: 99 Resp: 16 SpO2: 100% PHYSICAL EXAM Alert and oriented. Normal pupils. Normal respiratory effort - nasal cannula in place Abdomen not distended. CN 2-12 grossly intact. Ambulates with wheeled walker DIAGNOSTICS I have reviewed all relevant imaging studies and explained pertinent findings to the patient. 2023: Lumbar x-ray No official read available, evidence of degenerative disc disease and lumbar spondylosis most notable at L5-S1 Assessment/Plan Generalized chronic pain Long-term use of opioids COPD It was a pleasure to see Mr. Mesa today in clinic. I do have some concerns about continuing to prescribe him narcotics in the setting of chronic lung disease, but per patient he has never had any side effects or respiratory depression from the Plato, currently at a relatively low dose. Medication is helping him significantly and allows him to increase his generalized activity, I am okay refilling today. Does have some logistical difficulty getting to the office (previously used medical transport), I am okay with three-month refill. See below for justification regarding his opioid medication. Of note, this was a prescription that was initiated by previous provider which I inherited upon joining the practice. I have outlined my concerns above and relay these concerns to the patient and he was aware of the risks and willing to accept. Of note, we will never increase dose or frequency of this medication. Kenney Holder MD Interventional Pain Management [facility] At this time, our clinic will (or will continue to) provide an opioid prescription for treatment ofthis patient's pain. This is a condition that A) has failed to respond to non-opioid alternatives and B) necessitates treatment for longer than 7 days. Both [place] PDMP and pain contract reviewed and appropriate. [...] not be combined with benzodiazepines, alcohol, muscle relaxants, or other depressant medications given risk for excessive sedation and respiratory depression. Concomitant use of these substances will result in discontinuation of prescription. UDS screens will be performed to assess for medication, metabolites, other medications, and illicit substances. Patient isaware and expressed understanding. Prescription provided: Plato 5-325 QID PRN Duration of prescription: 90 days Refills? No Urine sample obtained today: No [facility] Best Practice documentation Blood pressure in clinic today was BP: (!) 122/101. This classifies as a hypertensive BP reading (SBP > 140 OR DBP > 90). Recommended lifestyle modifications and discussion with PCP. Patient is not a tobacco user. PATIENT EDUCATION Learning needs assessment was performed and no barriers identified. Explained diagnosis and treatment plan. Patient expressed understanding and was able to teach back. I personally spent a total of 10 minutes of osl-uahw-kj-face time performing a review of the recordand/or discussion with the patient/caregiver as described above. Total time spent with patient 20 minutes, total time in counseling 10 minutes. ATTRACTIONS ASSOCIATE: Power Hammer Operator completed with Fluency [employer], dictation proofread to best of my ability. ENT ADVISOR documented in this encounter Miscellaneous Notes * Addendum Note - Esperanza Amaral RN - 11/13/2023 2:00 PM CSTEncounter addended by: Esperanza Amaral RN on: 11/14/2023 7:57 AM Actions taken: Charge Capture section accepted ENT ADVISOR documented in this encounter Plan of Treatment [...] a day as needed for pain Reorder 09/04/2023 11/13/2023 HYDROcodone-acetaminophe n (NORCO) 5-325 mg per tabletIndications:Pain Take 1 tablet by mouth 4 (four) times a day as needed for pain Reorder 10/04/2023 11/13/2023 documented as of this encounter Care Teams Juke Box Servicer Relationship Specialty Start Date End Date Aristeo Khan MD [address] [place] [address] PCP - General 06/28/22 Ravi Queen MD [address] [place] [address] DR GUZMÁN [address] [place] [address] Anesthesiologist Pain Management 09/05/22 documented as of this encounter
--- OUTSIDE RECORDS SUMMARY | 2024-10-14 06:00 | XMS_ITS | Encounter Summary ---
Author Organization [facility] Address [address] [place] [address] Care Team Providers Care Trapeze Artist Name Role Phone Unavailable Primary Care Provider Unavailabl e Reason for Referral * CT Scan (Routine) - Closed Specialty Diagnoses / Procedures Referred By Emmie gomez Referred To Contact Radiology Diagnoses Centrilobular emphysema Procedures CT CHEST HIGH RESOLUTION Carson Pineda MD [address] [place] [address] Scan [address] [place] [address] Referral ID Status Reason Start Date Expiration Date Visits Re quested Visits Authorized [id number] Closed 02/13/2021 03/15/2021 1 1 Reason for Visit * CT Scan (Routine) - Closed Specialty Diagnoses / Procedures Referred By Emmie gomez Referred To Contact Radiology Diagnoses Centrilobular emphysema Procedures CT CHEST HIGH RESOLUTION Carson Pineda MD [address] [place] [address] Scan [address] [place] [address] Referral ID Status Reason Start Date Expiration Date Visits Re quested Visits Authorized [id number] Closed 02/13/2021 03/15/2021 1 1 Encounter Details Date Type Department Care Team (Latest Contact Info) Description 02/22/2021 12:10 PM CDT - 02/22/2021 11:59 PM CDT Hospital Encounter [facility] Scan [address] [place] [address] Carson Pineda MD [address] [place] [address] Discharge Disposition: Home or Self [...] Diagnosis Comments CT CHEST HIGH RESOLUTION Routine 02/22/2021 12:29 PM CDT Centrilobular emphysema documented in this encounter Results * CT CHEST HIGH RESOLUTION (02/22/2021 12:29 [...] is recommended. DICTATION LOCATION: Location 1 - [facility] 02/22/2021 12:52 PM CDT EXAMINATION: CT CHEST [...] is recommended. DICTATION LOCATION: Location 1 - [facility] Carson Pineda MD CT ORDERABLES documented in this encounter Visit Diagnoses Diagnosis Centrilobular emphysema Other emphysema documented in this encounter
--- OUTSIDE RECORDS SUMMARY | 2024-10-14 06:00 | XMS_ITS | Encounter Summary ---
Author Organization [facility] Healthcare Address [address] [place] [address] Care Team Providers Care Service Coordinator Name Role Phone Aristeo Khan MD Primary Care Provider [phone] Ravi Queen MD Unavailable [phone] Encounter Details Date Type Department Care Team (Late st Contact Info) Description 09/19/2022 Orders Only [facility] [address] [place] [address] A, [address] [place] [address] Rosaline Rdz, BRUSH HOLDER INSPECTOR [address] [place] [address] Chronic pain of right knee Social History Tobacco Use Types Packs/Day Years Used Date Smoking Tobacco: Former Smokeless Tobacco: Former PHQ-2 Answer Date Recorded PHQ-2 Total Score (If total score is 3 or more points, staff should administer the PHQ-9) 0 09/19/2022 Sex and Gender Information Value Date Recorded Sex Assigned at Not on file Legal Sex Male 8:01 PM BRANCH DIRECTOR Gender Identity Not on file Sexual Orientation Not on file documented as of this encounter Ordered Prescriptions Prescription Sig Dispense Quantity Refills Last Filled Start Date End Date HYDROcodone-acetam inophen (NORCO) 5-325 mg per tabletIndications: Pain Take 1 tablet by mouth 4 (four) times a day as needed for pain 120 tablet 09/26/2022 10/26/2022 HYDROcodone-acetam inophen (NORCO) 5-325 mg per tabletIndications: Pain Take 1 tablet by mouth 4 (four) times a day as needed for pain 120 tablet 10/26/2022 11/25/2022 documented in this encounter Progress Notes * Rosaline Rdz NP - 09/19/2022 9:50 AM CST Pt was seen in the office today CH DIRECTOR documented in this encounter Plan of Treatment [...] per tabletIndications:Pain Take 1 tablet by mouth every 6 (six) hours as needed for pain Reorder 04/21/2019 09/19/2022 HYDROcodone-acetaminophe n (NORCO) 5-325 mg per tabletIndications:Pain Take 1 tablet by mouth 4 (four) times a day as needed for pain Reorder 08/27/2022 09/19/2022 documented as of this encounter Care Teams Service Coordinator Relationship Specialty Start Date End Date Ariseto Khan MD [address] [place] [address] PCP - General 06/28/22 Ravi Queen MD 2 [facility] [address]ZM[address]N [address] [place] [address] Anesthesiologist Pain Management 09/05/22 documented as of this encounter
--- OUTSIDE RECORDS SUMMARY | 2024-10-14 06:00 | XMS_ITS | Encounter Summary ---
Author Organization [facility] Address [address] [place] [address] Care Team Providers Care Public Health Officer Name Role Phone Bentley Kyle MD Primary Care Provider [phone] Reason for Visit * Reason Onset Date Comments Question 04/24/2021 Encounter Details Date Type Department Care Team (Late st Contact Info) Description 04/24/2021 Telephone [facility] Pulmon[facility] [address] [place] [address] Carson Pineda MD [address] [facility] [address] [place] [address] Question Social History Tobacco Use Types Packs/Day Years [...] Telephone Encounter - Kiki Posada RN - 04/24/2021 5:23 PM CDT Spoke to Sloane to advise. She requested that a letter be faxed to [facility]. Letter generated. Will be faxed to [phone] when signed. * Telephone Encounter - Carson Pineda MD - 04/24/2021 11:58 AM CDT Yes, okay to return * Telephone Encounter - Kiki Posada RN - 04/24/2021 11:19 AM CDT Pt called and left message, wants to know if it is okay to return to rehab? documented in this encounter Plan of Treatment Not on file documented as of this encounter Visit Diagnoses Not on filedocumented in this encounter Care Teams Public Health Officer Relationship Specialty Start Date End Date Bentley Kyle MD [address] [facility] [address] [place] [address] PCP - General Internal Medicine 04/18/21 documented as of this encounter
--- OUTSIDE RECORDS SUMMARY | 2024-10-14 06:00 | XMS_ITS | Encounter Summary ---
Author Organization [facility] Address [address] [facility] Attn: Epic Prelude ADT FRANCOISE CASTRO [address] Care Team Providers Care Trimmer Machine Operator Name Role Phone Bentley Kyle MD Primary Care Provider [phone] Encounter Details Date Type Department Care Team (Latest Contact Info) Description 04/18/2021 Travel Social History Tobacco Use Types Packs/Day [...] on filedocumented in this encounter Care Teams Trimmer Machine Operator Relationship Specialty Start Date End Date Bentley Kyle MD [address] [facility] [address] [place] [address] PCP - General Internal Medicine 04/18/21 documented as of this encounter
--- OUTSIDE RECORDS SUMMARY | 2024-10-14 06:00 | XMS_ITS | Encounter Summary ---
Author Organization [facility] Healthcare Address [address] [place] [address] Care Team Providers Care Carbon Printer Name Role Phone Aristeo Khan MD Primary Care Provider [phone] Ravi Queen MD Unavailable [phone] Encounter Details Date Type Department Care Team (Late st Contact Info) Description 04/03/2024 Telephone [facility] 2 [facility] [address] [place] [address] Kenney Holder MD 2 [facility] [address] [place] [address] Social History Tobacco Use Types Packs/Day Years Used Date Smoking Tobacco: Former Smokeless Tobacco: Former PHQ-2 Answer Date Recorded PHQ-2 Total Score (If total score is 3 or more points, staff should administer the PHQ-9) 0 02/25/2024 Sex and Gender Information Value Date Recorded Sex Assigned at Not on file Legal Sex Male 8:01 PM HYDRAULIC PRESS TENDER Gender Identity Not on file Sexual Orientation Not on file documented as of this encounter Miscellaneous Notes * Telephone Encounter - Liudmila Espinoza RN - 04/03/2024 11:56 AM CDT POST-PROCEDURE TELEPHONE ENCOUNTER Procedure: Genicular Nerve Block Medication used: 2% lidocaine PRE PROCEDURE PAIN SCORE: 4 POST PROCEDURE PAIN SCORE: 0 What activities did you do to test your pain during the 2-3 hours following the block that would normally cause your pain? Walked around hospital and went grocery shopping Percentage improvement in pain after the diagnostic medial branch block: 90% Patient reports: significant improvement in pain and level of function after the injection PLAN Proceed with radiofrequency ablation Information reinforced Caller agreeable to plan of care? Yes documented in this encounter Plan of Treatment [...] on filedocumented in this encounter Care Teams Carbon Printer Relationship Specialty Start Date End Date Aristeo Khan MD [address] [place] [address] PCP - General 06/28/22 Ravi Queen MD [address] [facility] [address] [place] [address] Anesthesiologist Pain Management 09/05/22 documented as of this encounter
--- OUTSIDE RECORDS SUMMARY | 2024-10-14 06:00 | XMS_ITS | Encounter Summary ---
Author Organization [facility] Address [address] [place] [address] Care Team Providers Care Ornamental Metal Worker Apprentice Name Role Phone Aristeo Khan MD Primary Care Provider Ravi Queen MD Unavailable [phone] Reason for Visit * Reason Comments Follow-up Med Management Encounter Details Date Type Department Care Team (Latest Contact Info) Description 02/28/2023 8:43 AM CDT - 02/28/2023 11:59 PM CDT Hospital Encounter [facility] [address] [place] [address] A, 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 Gender Identity Not on file Sexual Orientation Not on file documented as of this encounter Last Filed Vital Signs Vital Sign Reading Time Taken Comments Blood Pressure 131/93 02/28/2023 9:18 AM CDT Pulse 95 02/28/2023 9:18 AM CDT Temperature - - Respiratory Rate 16 02/28/2023 9:18 AM CDT Oxygen Saturation 98% 02/28/2023 9:18 AM CDT Inhaled Oxygen Concentration - - [...] as needed for pain 120 tablet 03/06/2023 3 HYDROcodone-aceta minophen (NORCO) 5-325 mg per tabletIndications :Pain Take 1 tablet by mouth 4 (four) times a day as needed for pain 120 tablet 04/05/2023 3 HYDROcodone-aceta minophen (NORCO) 5-325 mg per tabletIndications :Pain Take 1 tablet by mouth 4 (four) times a day as needed for pain 120 tablet 05/05/2023 3 naloxone (NARCAN) 4 mg/actuation spray,non-aerosol Administer 1 spray into affected nostril(s) as needed for opioid reversal 1 each 06/28/2022 3 documented as of this encounter Discharge Disposition Disposition Code Departure Means Destination Discharge to home or self care documented in this encounter Progress Notes * Rosaline Rdz, BALL SORTER - 02/28/2023 9:30 AM CDT Patient Name: Bentley Mesa : 1960 Today's Date: 02/28/2023 PCP: Aristeo Khan MD Referring: Mau Lazo* Chief Complaint Patient presents with Follow-up Med Management HPI Bentley Mesa is a 63 y.o. year old male seen in consultation today for a follow-up. Today he reports 75% reduction in his pain with the [place]. He continues with a Chief Complaint of right knee pain. Additionally he has some left shoulder pain but he states that has been getting better. The knee pain is described as a constant burning, achy, sharp pain. It rates Currently 3/10 on the numeric pain scale. At Worst 10/10 Provocative maneuvers include standing and walking. At Best 2/10 Alleviating maneuvers include with [place], sitting, and rest. His is with him at this visit. He states he is satisfied with his pain control at this time and is able to do more activities with the pain med ication. Pain impacts his activities of daily living because he can't stand for long periods of time. With regard to additional symptoms the patient reports general right knee Weakness, He reports right thigh Numbness. He denies bowel or bladder incontinence. He reports chronic pain associated Insomnia. Therapeutic modalities attempted to date include [place] 5/325 provides him temporary relief, oral prednisone provides him no relief, multiple injections provided him no relief, Tylenol provides him norelief, ibuprofen provides him no relief, Aleve provides him no relief, and tramadol provides him no relief. Pain Score: 3 Pain Location: Knee Pain Descriptors: Aching;Sharp;Discomfort Pain Frequency: Constant/continuous Pain Onset: Ongoing Clinical Progression: Not changed Effect of Pain on Daily Activities: he has a primary care physician, able to perform some ADL'S , sleeping good Allergies Allergen Reactions Oxycodone Hives and Itching Past Medical History: Diagnosis Date Emphysema of lung (HCC) Glaucoma Knee pain, right History reviewed. [...] 90 mcg/actuation inhaler Daliresp 500 mcg tablet fluticasone propionate (FLONASE) 50 mcg/actuation nasal spray vlzkqxevcls-wvxhhwzoi-ijjqhsxq (Lonhala Magnair Starter) 25 mcg/mL solution for nebulization HYDROcodone-acetaminophen (NORCO) 5-325 mg per tablet predniSONE (DELTASONE) 10 mg tablet promethazine-DM (PROMETHAZINE-DM) 1.25-3 mg/mL syrup raNITIdine (ZANTAC) 150 mg tablet aspirin 81 mg enteric coated tablet bromfenac (Prolensa) 0.07 % drops ipratropium (ATROVENT HFA) 17 mcg/actuation inhaler naloxone (NARCAN) 4 mg/actuation spray,non-aerosol ipratropium-albuterol (DUO-NEB) 0.5-2.5 mg/3 mL nebulizer solution tamsulosin (FLOMAX) 0.4 mg extended release capsule [...] patient is not nervous/anxious. Physical Exam Vitals: 02/28/23 0918 BP: 131/93 Pulse: 95 Resp: 16 SpO2: 98% There is no height or weight on [...] leg Raise Right 70 degrees produces concordant knee/low back pain DFF no change Left 70 degrees produces no pain DFF no change Gaenslen's Test Right negative produces no pain Left negative produces no pain FABERs Test Right negative produces no pain Left negative produces no pain Imaging: No recent imaging is available. Review of Data: Checked the [employer] HOME ENERGY INSPECTOR sheet and it was consistent with our meds. UDT results: A sample was obtained at today's visit. The patient was given a prescription for intranasal Narcan for the management of opioid induced respiratory depression or excess sedation. I reviewed the [place] Prescription Monitoring Program printout and it was [...] Mesa appears stable and satisfied with the [place] 5/325, I will provide him a refill and have him follow-up in 2 months time for a repeat evaluation. For compliance reasons a UDS will be colleted at today's visit. Mr. Mesa denies any questions to the above-mentioned plan and agrees. 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 Objective of opioid based therapy is to allow him to continue his activities of daily living with less suffering. Thank you for allowing me to participate in the care of this pleasant patient. Rosaline Rdz NP 02/28/2023 documented in this encounter Miscellaneous Notes * Addendum Note - Rosaline Rdz NP - 02/28/2023 9:30 AM CDTEncounter addended by: Rosaline Rdz NP on: 02/28/2023 9:45 AM Actions taken: Clinical Note Signed documented in this encounter Plan of Treatment [...] osteoarthritis type Insomnia secondary to chronic pain FDC (current) use of opiate analgesic documented in this encounter Discontinued Medications Medication Sig Discontinue Reason Start Date End Da te ipratropium-albuterol (DUO-NEB) 0.5-2.5 mg/3 mL nebulizer solution 2.5 mL Therapy completed 02/21/2017 02/28/2023 tamsulosin (FLOMAX) 0.4 mg extended release capsule Take 0.4 mg by mouth Therapy completed 05/08/2017 02/28/2023 documented as of this encounter Historical Medications * This list may reflect changes made after this encounter. glycopyrrol-nebul izer-accessor (Lonhala Magnair Starter) 25 mcg/mL solution for nebulization Lonhala Magnair Refill 25 mcg/mL solution for nebulization INHALE 1 ML EVERY DAY IN THE MORNING AND IN THE EVENING ADMINISTER AT THE SAME TIME(S) EACH DAY fluticasone propionate (FLONASE) 50 mcg/actuation nasal spray fluticasone propionate 50 mcg/actuation nasal spray,suspension bromfenac (Prolensa) 0.07 % drops Prolensa 0.07 % eye drops aspirin 81 mg enteric coated tablet daily added in this encounter Care Teams Ornamental Metal Worker Apprentice Relationship Specialty Start Date End Date Aristeo Khan MD [address] [place] [address] PCP - General 06/28/22 Ravi Queen MD 2 [facility] [address] [address] Anesthesiologist Pain Management 09/05/22 documented as of this encounter
--- OUTSIDE RECORDS SUMMARY | 2024-10-14 06:00 | XMS_ITS | Encounter Summary ---
Author Organization [facility] Address [address] [place] [address] Care Team Providers Care Chemical Plant Worker Name Role Phone Bentley Kyle MD Primary Care Provider [phone] Encounter Details Date Type Department Care Team (Latest Contact Info) Description 05/23/2021 2:30 PM CDT - 05/23/2021 11:59 PM CDT Hospital Encounter [facility] [place] A [address] [place] [address] Carson Pineda MD [address] [facility] [address] [place] [address] Discharge Disposition: Home or Self [...] PM CDT documented as of this encounter Medications [...] Name Priority Date/Time Associated Diagnosis Comments XR CHEST PA AND LATERAL 2 VW Routine 05/23/2021 2:45 PM CDT Centrilobular emphysema documented in this encounter Results * XR CHEST PA AND LATERAL 2 VW (05/23/2021 2:45 PM CDT) Anatomical Region Laterality Modality Chest Computed Radiogr aphy 05/23/2021 2:45 PM CDT Impressions 05/23/2021 3:16 PM CDT IMPRESSION: Increased opacity in the right apex is again seen. DICTATION LOCATION: Location 1 - [facility] Narrative 05/23/2021 3:16 PM CDT CHEST 2 [...] apex is again seen. DICTATION LOCATION: Location 1 - [facility] Carson Pineda MD DIAGNOSTIC IMAGING O RDERABLES documented in this encounter Visit Diagnoses Diagnosis Centrilobular emphysema Other emphysema documented in this encounter Care Teams Chemical Plant Worker Relationship Specialty Start Date End Date Bentley Kyle MD [address] [place] [address] PCP - General Internal Medicine 04/18/21 documented as of this encounter
--- OUTSIDE RECORDS SUMMARY | 2024-10-14 06:01 | XMS_ITS | Encounter Summary ---
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
--- OUTSIDE RECORDS SUMMARY | 2024-10-14 06:01 | XMS_ITS | Encounter Summary ---
Author Organization [facility] Address [address] [facility] [address] [place] [address] Care Team Providers Care Molecular Spectroscopist Name Role Phone Elaine Jain MD Primary Care Provider Reason for Visit * Reason Comments Pain Encounter Details Date Type Department Care Team (Latest Contact Info) Description 04/24/2019 10:00 AM CDT Office Visit [facility] Orthopedics and Sports Medicine [address] [place] [phone] Jeffery Robles MD [address] [place] [address] [address] [address] Post-traumatic osteoarthritis of right knee (Primary Dx); History of COPD Social History Tobacco Use Types Packs/Day Years Used Date Smoking Tobacco: Former Smokeless Tobacco: Former Sex and Gender Information Value Date Recorded Sex Assigned at Not on file 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 Gender Identity Not on file Sexual Orientation Not on file documented as of this encounter Last Filed Vital Signs Vital Sign Reading Time Taken Comments Blood Pressure 131/88 04/24/2019 10:20 AM CDT Pulse 93 04/24/2019 10:20 AM CDT Temperature - - Respiratory Rate - - Oxygen Saturation - - Inhaled Oxygen Concentration - - Weight 111.1 kg (245 lb) 04/24/2019 10:20 AM CDT Height 172.7 cm (5' 8 ) 04/24/2019 10:20 AM CDT Body Mass Index 37.25 04/24/2019 10:20 AM CDT documented in this encounter Progress Notes * Jeffery Robles MD - 04/24/2019 10:00 AM CDT Images from the original note were not included. NEW PATIENT VISIT Subjective CHIEF COMPLAINT He had concerns including Pain of the Right Knee. HISTORY OF PRESENT ILLINESS Right knee pain for the past 3 years. The pain is recently gotten worse over the past year. The problem started when he jumped out of a truck and landed on his knee. His pain is sharp burning and achy. His pain is severe. Medication makes his pain better. Cold air brain standing for too long makes his pain worse. His pain is continuous. He has had physical therapy narcotics anti-inflammatories steroid injections with minimal relief like discuss total knee arthroplasty today. Manager Fiber completed by using [employer] Fluency Direct speaking software, therefore, transcriptionvariances may occur. Pain Assessment Pain Assessment: 0-10 Pain Score: 7 Pain Location: Knee Pain Orientation: Right Pain Descriptors: Aching, Burning, Sharp Pain Frequency: Constant/continuous PAST MEDICAL HISTORY He has a past medical history of Emphysema of lung ([facility]). PAST SURGICAL HISTORY He has no past surgical history on file. MEDICATIONS He has a current medication list which includes the following prescription(s): hydrocodone-acetaminophen, ipratropium, ipratropium-albuterol, prednisone, promethazine-dm, ranitidine, and tamsulosin. ALLERGIES He has No Known Allergies. SOCIAL HISTORY He reports that he has quit smoking. He has quit using smokeless tobacco. FAMILY HISTORY Family History Problem Relation Age of Onset ??? Heart disease Other ??? Cancer Other ??? Arthritis Other REVIEW OF SYSTEMS Review of Systems Constitutional: Negative for activity change, appetite change, chills and fever. HENT: Negative for congestion, dental problem, ear pain, hearing loss and voice change. Eyes: Negative for pain and visual disturbance. Respiratory: Positive for cough and shortness of breath. Negative for apnea and chest tightness. Cardiovascular: Negative for chest pain, palpitations and leg swelling. Gastrointestinal: Negative for blood in stool, constipation, diarrhea, nausea and vomiting. Endocrine: Negative for cold intolerance and heat intolerance. Genitourinary: Negative for difficulty urinating and hematuria. Skin: Negative for color change, rash and wound. Allergic/Immunologic: Positive for environmental allergies. Neurological: Negative for dizziness, syncope, numbness and headaches. Hematological: Negative for adenopathy. Does not bruise/bleed easily. Psychiatric/Behavioral: Negative for confusion. The patient is not nervous/anxious and is not hyperactive. Objective PHYSICAL EXAM BP 131/88 Pulse 93 Ht 172.7 cm (5' 8 ) Wt 111.1 kg (245 lb) BMI 37.25 kg/m?? Right knee Inspection Erythema: absent Cellulitis: absent Swelling: absent Surgical scar/wound: absent. Skin temperature: normal Alignment: varus Gait: antalgic Palpation Tenderness: present. The tenderness is located in the medial joint line, lateral joint line and condyle. Patellar tracking: normal Crepitus: positive Patella grind: positive Range of motion The patient has reduced range of motion of the right knee. The patient has pain with range of motion of the right knee. Stability The patient has normal AP and ML stability of the right knee. AP stability: stable ML stability: stable Varus stress at 0 degrees: stable Valgus stress at 0 degrees: stable Varus stress at 30 degrees: stable Valgus stress at 30 degrees: stable Pivot shift: negative Geo: negative Anterior drawer: negative Strength Th patient has 5/5 strength throughout with exceptions as noted below . Knee extension: 4/5 and pain limits strength Knee flexion: 4/5 and pain limits strength Hip abductor: 4/5 and pain limits strength Neurovascular The patient has normal vascular on the right side of their body. The patient has normal sensation on the right side of their body. Special tests Santosh: medial negative lateral positive Patellar apprehension: negative Posterior sag: negative Left knee The patient has normal inspection, palpation, range of motion, strength, and stabiltiy of the left knee. Inspection The patient has normal inspection of the left knee. Erythema: absent Swelling: absent Effusion: absent Skin temperature: normal Alignment: neutral Gait: normal Palpation The patient has normal palpation of the left knee. Tenderness: absent. Patellar tracking: normal Crepitus: positive Range of motion The patient has normal range of motion of the left knee. The patient does not have pain with range of motion of the left knee. Stability The patient has normal AP and ML stabiltiy of the left knee. AP stability: stable ML stability: stable Varus stress at 0 degrees: stable Valgus stress at 0 degrees: stable Varus stress at 30 degrees: stable Valgus stress at 30 degrees: stable Pivot shift: negative Geo: negative Anterior drawer: negative Strength The patient has 5/5 strength throughout. Neurovascular The patient has normal vascular on the left side of their body. The patient has normal sensation on the left side of their body. Special tests Santosh: medial negative lateral negative Patellar apprehension: negative Posterior sag: negative REVIEW OF X-RAYS/STUDIES/LABS varus deformity right knee [id number] changes severe osteoarthrosis Assessment/Plan Bentley was seen today for pain. Diagnoses and all orders for this visit: Post-traumatic osteoarthritis of right knee History of COPD Plan With patient's increasing pain and inability to walk short distances total knee arthroplasty is indicated. Patient demonstrates atrophy and weakness in lower extremities and would benefit from home Estim device. Risks and benefits of total knee arthroplasty were discussed with the patient. These include but are not limited to bleeding infection damage to surrounding structures including, fracture, Damage to nerves, arteries, veins, DVT, PE, stroke, heart attack, and . Patient understands these risks and agreed to proceed with the surgery as described above. All questions and concerns were addressed with the patient prior to surgical consent being established in the office today. The patient will follow up for surgery after he has been cleared by his machine plate stacker. He will be referred to pain management until he is cleared has history of COPD. Patient demonstrates atrophy and weakness of Right LE and would benefit from home E stim device. Elisha Robles MD documented in this encounter Plan of Treatment Not on file documented as of this encounter Visit Diagnoses Diagnosis Post-traumatic osteoarthritis of right knee- Primary History of COPD documented in this encounter Care Teams Molecular Spectroscopist Relationship Specialty Start Date End Date Elaine Jain MD [address] [facility] [address] [place] [address] PCP - General Gastroenterology 04/08/19 02/07/22 documented as of this encounter
--- OUTSIDE RECORDS SUMMARY | 2024-10-14 06:01 | XMS_ITS | Encounter Summary ---
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
--- OUTSIDE RECORDS SUMMARY | 2024-10-14 06:01 | XMS_ITS ---
Author Organization [facility] Address [address] [place] [address] Care Team Providers Care Vehicle Controls Engineer Name Role Phone Aristeo Khan MD Primary Care Provider [phone] Ravi Queen MD Unavailable [phone] Transplant Episode Lung Candidate [facility] ([place], [place]) - [facility] Referred on 07/15/2019 Marked as Ineligible on 07/17/2019 Reason: Does Not Meet Criteria Lung CoordinatorSuzanne Finney RN Fax: N/A Email: N/A [place] Organ Diagnosis Organ Primary Contributory Lung COPD/Emphysema Care Team Name Role Phone Fax Email Suzanne Finney RN Lung Coordinator [phone] N/A N/A Zulay Khan NP Referring Physician [phone] N/A Events Pre-Transplant Referred: 07/15/2019
--- OUTSIDE RECORDS SUMMARY | 2024-10-14 06:01 | XMS_ITS ---
Author Organization [facility] Address [address] [place] [address] Care Team Providers Care Overlock Elastic Attacher Name Role Phone Aristeo Khan MD Primary Care Provider [phone] Ravi Queen MD Unavailable Transplant Episode Lung Candidate [facility] ([place], [place]) - [facility] Referred on 10/23/2016 Marked as Ineligible on 10/29/2016 Reason: Does Not Meet Criteria Lung CoordinatorSuzanne Finney RN Fax: N/A Email: N/A [place] Organ Diagnosis Organ Primary Contributory Lung COPD/Emphysema Care Team Name Role Phone Fax Email Suzanne Finney RN Lung Coordinator [phone] N/A N/A Suzanne Finney RN Pre Coordinator [phone] N/A N/A Events Pre-Transplant Referred: 10/23/2016
--- OUTSIDE RECORDS SUMMARY | 2024-10-14 06:01 | XMS_ITS | Encounter Summary ---
Author Organization [facility] Healthcare Address [address] [place] [address] Care Team Providers Care Dip Unit Operator Name Role Phone Aristeo Khan MD Primary Care Provider [phone] Reason for Visit * Reason Comments Follow-up Med Management Encounter Details Date Type Department Care Team (Latest Contact Info) Description 07/19/2022 8:23 AM CDT - 07/19/2022 11:59 PM CDT Hospital Encounter [facility] [address] 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 * Hydrocodone/Acetaminophen (By mouth) (Somali) documented in this encounter Medications at Time [...] tabletIndication s:Pain Take 1 tablet by mouth every 6 (six) hours as needed for pain 28 tablet 04/21/2019 2 HYDROcodone-acet aminophen (NORCO) 5-325 mg per tabletIndication s:Pain Take 1 tablet by mouth 4 (four) times a day as needed for pain 120 tablet 07/28/2022 3 HYDROcodone-acet aminophen (NORCO) 5-325 mg per tabletIndication s:Pain Take 1 tablet by mouth 4 (four) times a day as needed for pain 120 tablet 08/27/2022 2 ipratropium-albu terol (DUO-NEB) 0.5-2.5 mg/3 mL nebulizer [...] this encounter Progress Notes * Rosaline Rdz, ARTIFICIAL MARBLE WORKER - 07/19/2022 9:15 AM CDT Patient Name: Bentley Mesa : 1960 Today's Date: 07/19/2022 PCP: Aristeo Khan MD Referring: Ravi Queen MD Chief Complaint Patient presents with ??? Follow-up ??? Med Management HPI Bentley Mesa is a 62 y.o. year old male seen in consultation today for a follow-up. Today he reports 75% reduction in his pain with the Sumner. He continues with a Chief Complaint of right knee pain. His pain began approximately 3 years ago. Initiating Events include 25 years ago he jumped off the back of a truck. The pain is described as a constant burning sharp ache. It rates Currently 3/10on the numeric pain scale. At Worst 10/10 Provocative maneuvers include standing and walking. At Best 3/10 Alleviating maneuvers include with Sumner, sitting, and rest. He reports he is able to do hisactivities of daily living without difficulty. He reports that his first beater doesn't want him to have right knee surgery due to his lungs not being very strong. He is currently taking PT and getting injections in his knee with the hopes that this will also help his knee pain. With regard to additional symptoms the patient reports general right knee Weakness, He denies any Numbness. He denies bowel or bladder incontinence. He reports chronic pain associated Insomnia. Therapeutic modalities attempted to date include Sumner 5/325 provides him relief, oral prednisone provides him no relief, multiple injections provided him no relief, Tylenol provides him no relief, ibuprofen provides him no relief, Aleve provides him no relief, and tramadol provides him no relief. Pain Score: 3 Pain Location: Knee Pain Radiating Towards: LOW BACK Pain Descriptors: Aching;Sharp Pain Frequency: Constant/continuous Pain Onset: Ongoing Clinical Progression: Not changed Effect of Pain on Daily Activities: HE IS ABLE TO DO HIS ADL'S WITH MEDICATION, HE STATES 'IT IS MIND OVER MATTER'. No Known Allergies Past Medical History: Diagnosis Date ??? Emphysema of lung (CMS/HCC) (HCC) ??? Glaucoma ??? Knee pain, right History reviewed. No pertinent surgical history. Social History Tobacco Use ??? Smoking status: Former ??? Smokeless tobacco: Former Substance and Sexual Activity ??? Drug use: None ??? Sexual activity: None Alcohol Use: Not on file Family History Problem Relation Age of Onset ??? Heart disease Other ??? Cancer Other ??? Arthritis Other HOME MEDICATIONS : albuterol 2.5 mg /3 mL (0.083 %) nebulizer solution albuterol HFA (PROVENTIL HFA,VENTOLIN HFA,PROAIR HFA) 90 mcg/actuation inhaler Daliresp 500 mcg tablet HYDROcodone-acetaminophen (NORCO) 5-325 mg per tablet ipratropium (ATROVENT HFA) 17 mcg/actuation inhaler predniSONE (DELTASONE) 10 mg tablet raNITIdine (ZANTAC) 150 mg tablet tamsulosin (FLOMAX) 0.4 mg extended release capsule HYDROcodone-acetaminophen (NORCO) 5-325 mg per tablet ipratropium-albuterol (DUO-NEB) 0.5-2.5 mg/3 mL nebulizer solution naloxone (NARCAN) 4 mg/actuation spray,non-aerosol promethazine-DM (PROMETHAZINE-DM) 1.25-3 mg/mL syrup Review of Systems Review of Systems Constitutional: [...] patient is not nervous/anxious. Physical Exam Vitals: 07/19/22 0833 BP: 133/90 Pulse: 93 Resp: 16 SpO2: (!) 89% There is no height or weight on [...] is available. Review of Data: Checked the [employer] IRRIGATION TEACHER sheet and it was consistent with our meds. UDT results: A sample was not obtained. The patient was given a prescription for intranasal Narcan for the management of opioid induced respiratory depression or excess sedation. I reviewed the [place] Prescription Monitoring Program printout and it was [...] Mesa appears stable and satisfied with the Sumner 5/325, I will provide him a refill and have him follow-up in 2 months time for a repeat evaluation. For compliance reasons a UDS will be collected today. Mr. Mesa denies any questions to the above-mentioned plan and agrees. 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 Objective of opioid based therapy is to allow him to continue his activities of daily living with less suffering. Thank you for allowing me to participate in the care of this pleasant patient. 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 Daliresp 500 mcg tablet 06/02/2022 albuterol 2.5 mg /3 mL (0.083 %) nebulizer solution 06/26/2022 albuterol HFA (PROVENTIL HFA,VENTOLIN HFA,PROAIR HFA) 90 mcg/actuation inhaler Ventolin HFA 90 mcg/actuation aerosol inhaler added in this encounter Care Teams Dip Unit Operator Relationship Specialty Start Date End Date Aristeo Khan MD [address] [place] [address] PCP - General 06/28/22 documented as of this encounter
--- OUTSIDE RECORDS SUMMARY | 2024-10-14 06:01 | XMS_ITS | Encounter Summary ---
Author Organization [facility] Healthcare Address [address] [place] [address] Care Team Providers Care Butter Wrapper Name Role Phone Aristeo Khan MD Primary Care Provider [phone]- [phone] Reason for Visit * Reason Comments Initial Consult Pain Encounter Details Date Type Department Care Team (Latest Contact Info) Description 06/28/2022 11:34 AM CDT - 06/28/2022 11:59 PM CDT Hospital Encounter [facility] 2 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 Discharge Disposition: Discharge to home or self care Social History Tobacco Use Types Packs/Day Years Used Date Smoking Tobacco: Former Smokeless Tobacco: Former PHQ-2 Answer Date Recorded PHQ-2 Total Score (If total score is 3 or more points, staff should administer the PHQ-9) 0 06/28/2022 Sex and Gender Information Value Date Recorded Sex Assigned at Not on file 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] day as needed for pain 120 tablet 06/28/2022 2 ipratropium-albu terol (DUO-NEB) 0.5-2.5 mg/3 mL nebulizer solution 2.5 mL 02/21/2017 3 naloxone (NARCAN) 4 mg/actuation spray,non-aeroso l Administer 1 spray into affected nostril(s) as needed for opioid reversal 1 each 06/28/2022 3 tamsulosin (FLOMAX) 0.4 mg extended release capsule Take 0.4 mg by mouth 05/08/2017 3 documented as of this encounter Ordered Prescriptions Prescription Sig Dispense Quantity Refills Last Filled Start Date End Date naloxone (NARCAN) 4 mg/actuation spray,non-aerosol Administer 1 spray into affected nostril(s) as needed for opioid reversal 1 each 06/28/2022 3 HYDROcodone-acetam inophen (NORCO) 5-325 mg per tabletIndications: Pain Take 1 tablet by mouth 4 (four) times a day as needed for pain 120 tablet 06/28/2022 2 documented in this encounter Discharge Disposition Disposition Code Departure Means Destination Discharge to home or self care documented in this encounter Progress Notes * Ravi Queen MD - 06/28/2022 12:00 PM CDT Patient Name: Bentley Mesa : 1960 Today's Date: 06/28/2022 PCP: Aristeo Khan MD Referring: No ref. provider found Chief Complaint Patient presents with Initial Consult Pain HPI Bentley Mesa is a 62 y.o. year old male seen in consultation today for No ref. provider found.He presents with a Chief Complaint of right knee pain. His pain began approximately 3 years ago. Initiating Events include 25 years ago he jumped off the back of a truck. The pain is described as a constant burning ache. It rates Currently 8/10 on the numeric pain scale. At Worst 10/10 Provocative maneuvers include standing and walking., At Best 3/10 Alleviating maneuvers include with Wayland, sitting, and rest. With regard to additional symptoms the patient reports general right knee Weakness, He denies any Numbness. He denies bowel or bladder incontinence. He reports chronic pain associated Insomnia. Therapeutic modalities attempted to date include Wayland 5/325 provides him relief, oral prednisone provides him no relief, multiple injections provided him no relief, Tylenol provides him no relief, ibuprofen provides him no relief, Aleve provides him no relief, and tramadol provides him no relief. Pain Score: 8 Pain Location: Knee Pain Radiating Towards: denies Pain Descriptors: Burning;Sharp;Aching Pain Frequency: Constant/continuous Pain Onset: Ongoing Clinical Progression: Gradually worsening Effect of Pain on Daily Activities: patient has difficulty with adl's No Known Allergies Past Medical History: Diagnosis Date Emphysema of lung (CMS/HCC) No past surgical history on file. Social History Tobacco Use Smoking status: Former Smokeless tobacco: Former Substance and Sexual Activity Drug use: Not on file Sexual activity: Not on file Alcohol Use: Not on file Family History Problem Relation Age of Onset Heart disease Other Cancer Other Arthritis Other HOME MEDICATIONS : HYDROcodone-acetaminophen (NORCO) 5-325 mg per tablet ipratropium (ATROVENT HFA) 17 mcg/actuation inhaler ipratropium-albuterol (DUO-NEB) 0.5-2.5 mg/3 mL nebulizer solution predniSONE (DELTASONE) 10 mg tablet promethazine-DM (PROMETHAZINE-DM) 1.25-3 mg/mL syrup raNITIdine (ZANTAC) 150 mg tablet tamsulosin (FLOMAX) 0.4 mg extended release capsule Review of Systems Review of Systems Constitutional: Negative for activity change and fatigue. HENT: Negative for congestion, ear pain, sinus pressure, sinus pain and trouble swallowing. Eyes: Negative for pain. Respiratory: Negative for shortness of breath and wheezing. Cardiovascular: Negative for chest pain. Gastrointestinal: Negative [...] patient is not nervous/anxious. Physical Exam Vitals: 06/28/22 1218 BP: (!) 143/121 BP Location: Right arm Patient Position: Sitting Pulse: 97 Resp: 17 SpO2: 98% There is no height or [...] Judgment normal. Gait is antalgic he is in a wheelchair Toe Stand he is unable on the [...] is available. Review of Data: Checked the [employer] SUPERVISOR STRIPPING sheet and it was consistent with our meds. UDT results: A sample was not obtained. The patient was given a prescription for intranasal Narcan for the management of opioid induced respiratory depression or excess sedation. I reviewed the [place] Prescription Monitoring Program printout and it was consistent and appropriate. The patient denies the use Tobacco The patient denies a diagnosis of hypertension. [...] pain, and long-term use of opiate analgesics. I had an in-depth conversation with Mr. Mesa and basically it appears that he is stable and satisfied with 4 Wayland 5/325 per day, however he wishes to change pain management practice is due to the fact that he was short on his last pill count. He insists that theNorco provides him relief. He also states that is his goal to ultimately have his right knee treated. Based upon this I recommended he follow-up with Dr. Robles who offered him surgery in the past. In the interim I will provide him a refill of his Wayland 5/325, prescribe Narcan, and have him followup in 1 month time for a repeat evaluation. 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 I will refill his Wayland 5/325, prescribe Narcan, and have him follow up in 1 month time for a repeat evaluation. Objective of opioid based therapy is to allow him to continue his activities of daily living with less suffering. No follow-ups on file. Thank you for allowing me to participate in the care of this pleasant patient. 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
--- OUTSIDE RECORDS SUMMARY | 2024-10-14 06:01 | XMS_ITS | Encounter Summary ---
Author Organization [facility] Address [address] [facility] [address] [place] [address] Care Team Providers Care Window And Siding Craftsman Name Role Phone Elaine Jain MD Primary Care Provider Reason for Referral * Diagnostic Imaging (Routine) - Closed Specialty Diagnoses / Procedures Referred By Contac t Referred To Contact Diagnoses Right knee pain, unspecified chronicity Procedures XR Pelvis 1 or 2 Views Eliane Morales MD Phone: tel: fax: Referral ID Status Reason Start Date Expiration Date Visits Re quested Visits Authorized [id number] Closed 04/21/2019 10/30/2020 1 1 * Diagnostic Imaging (Routine) - Closed Specialty Diagnoses / Procedures Referred By Contac t Referred To Contact Diagnoses Right knee pain, unspecified chronicity Procedures XR Knee Right 4+ View Eliane Morales MD Phone: tel: fax: Referral ID Status Reason Start Date Expiration Date Visits Re quested Visits Authorized [id number] Closed 04/21/2019 10/30/2020 1 1 Reason for Visit * Reason Comments Pain Encounter Details Date Type Department Care Team (Latest Contact Info) Description 04/21/2019 9:30 AM CDT Office Visit [facility] Orthopedics and Sports Medicine [address] [place] [address] [phone] Eliane Mroales MD [address] [place] [address] Primary osteoarthritis of right knee (Primary Dx) Social History Tobacco Use Types Packs/Day Years Used Date Smoking Tobacco: Never Assessed Sex and Gender Information Value Date Recorded Sex Assigned at Not on file Legal Sex Male 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 Gender Identity Not on file Sexual Orientation Not on file documented as of this encounter Last Filed Vital Signs Vital Sign Reading Time Taken Comments Blood Pressure 114/84 04/21/2019 9:43 AM CDT Pulse 94 04/21/2019 9:43 AM CDT Temperature - - Respiratory Rate - - Oxygen Saturation - - Inhaled Oxygen Concentration - - Weight 109.3 kg (241 lb) 04/21/2019 9:43 AM CDT Height 174 cm (5' 8.5 ) 04/21/2019 9:43 AM CDT Body Mass Index 36.11 04/21/2019 9:43 AM CDT documented in this encounter Ordered Prescriptions Prescription Sig Dispense Quantity Refills Last Filled Start Date End Date HYDROcodone-acetam inophen (NORCO) 5-325 mg per tabletIndications: Pain Take 1 tablet by mouth every 6 (six) hours as needed for pain 28 tablet 04/21/2019 09/19/2022 documented in this encounter Progress Notes * Eliane Morales MD - 04/21/2019 9:30 AM CDT NEW PATIENT VISIT Subjective CHIEF COMPLAINT He had concerns including Pain of the Right Knee. HISTORY OF PRESENT ILLNESS Mr. Mesa is a well-appearing 59-year-old man with a pleasant affect in no acute distress who presents today with his with complaints of right knee pain for 3 years, he states the pain has recently gotten worse and he can hardly walk. The pain is secondary to arthritis. The pain is aching, severe, continuous, positive night pain. Trying to walking cold air or cold weather or range makes the pain worse, sleep and pain medication makes the pain better. He has been taking hydrocodone for the pain, he received a steroid injection in February of 2019 which lasted 2 weeks. He also takes Aleve andibuprofen as needed for the pain. He does report swelling with activity, denies numbness and tingling. Pain Assessment Pain Score: 8 Pain Location: Knee Pain Orientation: Right Pain Interventions: Medication (See MAR), Physical Therapy(steroid injection) PAST MEDCIAL HISTORY He has a past medical history of Emphysema of lung ([facility]). PAST SURGICAL HISTORY He has no past surgical history on file. MEDICATIONS He has a current medication list which includes the following prescription(s): ipratropium, ipratropium-albuterol, prednisone, promethazine-dm, ranitidine, tamsulosin, and hydrocodone-acetaminophen. ALLERGIES He has No Known Allergies. SOCIAL HISTORY He FAMILY HISTORY His family history includes Arthritis in an other family member; Cancer in an other family member; Heart disease in an other family member. REVIEW OF SYSTEMS Review of Systems Constitutional: Positive for unexpected weight change. Negative for activity change, appetite change, chills and fever. HENT: Negative. Negative for congestion, dental problem, ear pain, hearing loss and voice change. Eyes: Negative. Negative for pain and visual disturbance. Respiratory: Positive for cough and shortness of breath. Negative for apnea and chest tightness. Cardiovascular: Negative. Negative for chest pain, palpitations and leg swelling. Gastrointestinal: Negative. Negative for blood in stool, constipation, diarrhea, nausea and vomiting. Endocrine: Negative for cold intolerance and heat intolerance. Genitourinary: Negative. Negative for difficulty urinating and hematuria. Musculoskeletal: Negative. Skin: Negative. Negative for color change, rash and wound. Allergic/Immunologic: Positive for environmental allergies. Neurological: Negative. Negative for dizziness, syncope, numbness and headaches. Hematological: Negative for adenopathy. Does not bruise/bleed easily. Psychiatric/Behavioral: Negative. Negative for confusion. The patient is not nervous/anxious and isnot hyperactive. All other systems reviewed and are negative. Objective PHYSICAL EXAM BP 114/84 Pulse 94 Ht 174 cm (5' 8.5 ) Wt 109.3 kg (241 lb) BMI 36.11 kg/m?? Right knee Inspection Erythema: absent Cellulitis: absent Swelling: absent Surgical scar/wound: absent. Skin temperature: normal Alignment: varus Gait: antalgic Palpation Tenderness: present. The tenderness is located in the medial joint line. Patellar tracking: normal Crepitus: positive Range of [...] negative Geo: negative Anterior drawer: negative Strength Knee extension: 3/5 Knee flexion: 3/5 Hip abductor: 3/5 Neurovascular The patient has normal vascular on [...] negative Posterior sag: negative REVIEW OF X-RAYS/STUDIES/LABS XR Knee Right 4+ View Upon my review of the images, negative for fracture dislocation. Severe tricompartmental degenerative changes on the right, moderate on the left. No periosteal reaction or bone destruction. Well corticated calcification noted at the medial collateral ligament insertion on the left medial femoral condyle. XR Pelvis 1 or 2 Views Upon my review of the images, negative for fracture dislocation. Moderate degenerative changes bilaterally. No periosteal reaction or bone destruction. Assessment/Plan Bentley was seen today for pain. Diagnoses and all orders for this visit: Primary osteoarthritis of right knee - XR Knee Right 4+ View - XR Pelvis 1 or 2 Views Other orders - HYDROcodone-acetaminophen (NORCO) 5-325 mg per tablet; Take 1 tablet by mouth every 6 (six) hoursas needed for pain Procedures PLAN Reviewed x-ray images with Mr. Washington and his , we discussed both surgical and nonsurgical treatment options, the risks and benefits of each. He states he is ready to discuss his surgical options. Referred to Dr. Robles for further evaluation and treatment. He was given a prescription for hydrocodone today to take as directed, continue with Aleve or ibuprofen as needed for pain. I did explain to him that we do not provide long-term medication for pain, if he requires long-term medication we will refer him back to pain management. I also informed him that he will have to get medical clearance from his primary care physician and procedures tech prior to surgery. Both he and his are infull understanding and in agreement with the plan, and all their questions were answered. He was referred to Dr. Robles for further evaluation for total knee arthroplasty. Venetian Blind Mechanic completed by using [employer] Fluency Direct speaking software, therefore, transcriptionvariances may occur. JESSIE Ramos MD documented in this encounter Plan of Treatment Not on file documented as of this encounter Procedures Procedure Name Priority Date/Time Associated Diagnosis Comments XR PELVIS 1 OR 2 VIEWS Routine 04/21/2019 9:42 AM CDT Primary osteoarthritis of right knee XR KNEE RIGHT 4 OR MORE VIEWS Schedule Routine, Read Routine (OP Routine) 04/21/2019 9:42 AM CDT Primary osteoarthritis of right knee documented in this encounter Results * XR Pelvis 1 or 2 Views (04/21/2019 9:42 AM CDT) Anatomical Region Laterality Modality Body, Pelvis N/A Radiographic Amy ging Narrative 04/21/2019 9:50 AM CDT Upon my review of the images, negative for fracture dislocation. ??Moderate degenerative changes bilaterally. ??No periosteal reaction or bone destruction. Eliane Morales MD IMG XR PROCEDURES Ro l Result * XR Knee Right 4+ View (04/21/2019 9:42 AM CDT) Anatomical Region Laterality Modality Lower Extremities, Knee Right [facility] Narrative 04/21/2019 9:52 AM CDT Upon my review of the images, negative for fracture dislocation. ??Severe tricompartmental degenerative changes on the right, moderate on the left. ?? No periosteal reaction or bone destruction. ??Well corticated calcification noted at the medial collateral ligament insertion on the left medial femoral condyle. Eliane Morales MD IMG XR PROCEDURES Ro l Result documented in this encounter Visit Diagnoses Diagnosis Primary osteoarthritis of right knee- Primary documented in this encounter Historical Medications * This list may reflect changes made after this encounter. promethazine-DM (PROMETHAZINE-DM ) 1.25-3 mg/mL syrup TAKE ONE TEASPOONFUL 4 TIMES DAILY NEEDED FOR COUGH 13 04/10/2019 predniSONE (DELTASONE) 10 mg tablet TAKE ONE TABLET DAILY WITH A MEAL FOR 30 DAYS 5 02/12/2019 raNITIdine (ZANTAC) 150 mg tablet Take 1 tablet (150 mg total) by mouth 05/08/2017 ipratropium (ATROVENT HFA) 17 mcg/actuation inhaler Inhale 1 vial every 6 (six) hours ipratropium-albu terol (DUO-NEB) 0.5-2.5 mg/3 mL nebulizer solution 2.5 mL 02/21/2017 3 tamsulosin (FLOMAX) 0.4 mg extended release capsule Take 0.4 mg by mouth 05/08/2017 3 added in this encounter Care Teams Window And Siding Craftsman Relationship Specialty Start Date End Date Elaine Jain MD [address] [facility] [address] [place] [address] PCP - General Gastroenterology 04/08/19 02/07/22 documented as of this encounter
--- OUTSIDE RECORDS SUMMARY | 2024-10-14 06:01 | XMS_ITS | Encounter Summary ---
Author Organization [facility] Address [address] [facility] [address] [place] [address] Care Team Providers Care Edge Dyer Name Role Phone Bentley Meza MD Primary Care Provide r Reason for Visit * Diagnostic Imaging (Routine) - Closed Specialty Diagnoses / Procedures Referred By Contac t Referred To Contact Diagnoses Chest pain, unspecified type Procedures NM MPI SPECT (Rest and/or Stress) Multiple Studies Bentley Meza MD [address] [place] [address] Phone: tel: fax: [facility] Referral ID Status Reason Start Date Expiration Date Visits Re quested Visits Authorized [id number] Closed 02/08/2022 03/10/2023 1 1 Encounter Details Date Type Department Care Team (Latest Contact Info) Description 02/19/2022 9:45 AM CDT Ancillary Procedure 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 Gender Identity Not on file Sexual Orientation Not on file documented as of this encounter Plan of Treatment Not on file documented as of this encounter Procedures Procedure Name Priority Date/Time Associated Diagnosis Comments NM MPI SPECT (REST AND/OR STRESS) MULTIPLE STUDIES Schedule Routine, Read Routine (OP Routine) 02/19/2022 12:26 PM CDT Chest pain, unspecified type documented in this encounter Results * NM MPI SPECT (Rest and/or Stress) Multiple Studies (02/19/2022 12:26 PM CDT) Anatomical Region Laterality Modality Body N/A Nuclear Medicine 02/19/2022 9:59 AM CDT Narrative 02/20/2022 12:22 PM CDT [facility] Cardiology [address] [facility] [address], [place] [address] [address] [facility] [address], [place] [address] P:[phone] P:[phone] MPI Imaging Report Patient Name: BENTLEY MESA A : 1960 Study Date: 02/19/2022 9:59:09 AM Gender: M Tech: [facility] Location: [facility] Provider: BENTLEY MEZAHeight(Cm): 172.7 BSA: Weight(Kg): 111.1 BMI: 37.25Order Provider: BENTLEY MEZA - PHYSICIAN: Referring Physician: Dr. Meza. HCG Physician: none. Interpreting Physician: Liudmila Galo D.O. Stress Supervision: Fercho Manley M.D., F.A.C.C. PROCEDURES: Myocardial perfusion imaging with Tc99M Sestamibi SPECT at rest and stress post regadenoson (Lexiscan) infusion. INDICATIONS: Chest Pain, Family Hx CAD, and Former Smoker. FINDINGS: Procedural Findings: One day rest/stress was used. Tc99m Sestamibi injected IV at rest was 10.8 millicuries. 32.8 millicuries of Tc99M Sestamibi injected IV during Lexiscan stress. Lexiscan 0.4mg administered IV over 10 seconds. Patient had no symptoms during stress test. Baseline heart rate was 93 BPM. Maximum Heart Rate Achieved was: 135 BPM. Baseline blood pressure was 140/90 mmHg. Post Stress Blood Pressure was 138/96 mmHg. Termination: Protocol complete. Resting ECG: Sinus rhythm. PVC. Post ECG: Findings do not meet strict criteria for ischemia. Arrhythmia: Frequent PVCs at rest that resolved after Lexiscan injection. Perfusion Findings: Technical quality of study is good. Significant patient motion was not noted. Prone imaging was not performed. Left ventricle cavity size at rest is normal. Left ventricle cavity size with stress is unchanged. A TID of 0.86 was automatically calculated. defect 1: Size is medium. Severity is moderate. Location of defect is in the basal inferior segment, basal inferolateral segment, mid inferior segment and mid inferolateral segment. Reversibility is not present, defect is fixed. LV Function: Left ventricular ejection fraction is 63 %. CONCLUSIONS: Left ventricular ejection fraction is 63 %. Negative EKG portion of stress test. There is no ischemia. There is fixed defect involving the basal to mid inferior and inferolateral collins. Prone imaging not performed. This is most likely consistent with attenuation artifact, however prior inferior WV cannot be completely excluded. Electronically Signed By: Dr. Fercho Manley [facility] 2022-02-19 12:14:00 CDT Electronically Signed By: Liudmila Galo DO, FACC, SANDRA SUBRAMANIAN 2022-02-20 12:22:10 CDT CC: CC: CC: Procedure Note Liudmila Galo DO - 02/20/2022 [facility] Cardiology [address] [facility] [address] [id number] [address] [facility] [address] [address] P:[phone] P:[phone] MPI Imaging Report Patient Name: BENTLEY MESAEduardo ID: [id number] : [id number] Date: 02/19/2022 9:59:09 AM Gender: MAccession #: [id number] [facility] , [facility] [place] Ref Provider: Tono MEZA(Cm): 172.7 BSA: Weight(Kg): 111.1 BMI: 37.25Order Provider: BENTLEY MEZA - PHYSICIAN: Referring Physician: Dr. Meza. HCG Physician: none. InterpretingPhysician: Liudmila Galo D.O. Stress Supervision: Fercho Manley M.D., F.A.C.C. PROCEDURES: Myocardial perfusion imaging with Tc99M Sestamibi SPECT at rest and stresspost regadenoson (Lexiscan) infusion. INDICATIONS: Chest Pain, Family Hx CAD, and Former Smoker. FINDINGS: Procedural Findings: One day rest/stress was used. Tc99m Sestamibi injected IV at rest was 10.8millicuries. 32.8 millicuries of Tc99M Sestamibi injected IV during Lexiscan stress.Lexiscan 0.4mg administered IV over 10 seconds. Patient had no symptoms during stresstest. Baseline heart rate was 93 BPM. Maximum Heart Rate Achieved was: 135 BPM. Baselineblood pressure was 140/90 mmHg. Post Stress Blood Pressure was 138/96 mmHg. Termination: Protocol complete. Resting ECG: Sinus rhythm. PVC. Post ECG: Findings do not meet strict criteria for ischemia. Arrhythmia: Frequent PVCs at rest that resolved after Lexiscan injection. Perfusion Findings: Technical quality of study is good. Significant patient motion was notnoted. Prone imaging was not performed. Left ventricle cavity size at rest is normal.Left ventricle cavity size with stress is unchanged. A TID of 0.86 was automaticallycalculated. defect 1: Size is medium. Severity is moderate. Location of defect is in the basalinferior segment, basal inferolateral segment, mid inferior segment and midinferolateral segment. Reversibility is not present, defect is fixed. LV Function: Left ventricular ejection fraction is 63 %. CONCLUSIONS: Left ventricular ejection fraction is 63 %. Negative EKG portion of stress test. There is no ischemia. There is fixed defect involving the basal to midinferior and inferolateral collins. Prone imaging not performed. This is most likelyconsistent with attenuation artifact, however prior inferior WV cannot be completelyexcluded. Electronically Signed By: [facility] 2022-02-19 12:14:00 CDT Electronically Signed By: Liudmila Galo DO, JOYCE, MORIS, SANDRA 2022-02-20 12:22:10 CDT CC: CC: CC: Bentley Meza MD IMG NM PROCEDURES Fin al Result documented in this encounter Visit Diagnoses Diagnosis Chest pain, unspecified type documented in this encounter Administered Medications Inactive Administered Medications - up to 3 most recent administrations Medication Order MAR Action Action Date Dose Rate Site regadenoson (LEXISCAN) 0.4 mg/5 mL injection 0.4 mg 0.4 mg, intravenous, Once, On Sat02/19/22 at 1300, For 1 dose, Administer IV push over 10 seconds., Indications: Myocardial Perfusion Imaging AdjunctIndications:Myocard ial Perfusion Imaging Adjunct Given 02/19/2022 12:27 PM CDT 0.4 mg tc-99m sestamibi unit dose injection 10.8 millicurie 10.8 millicurie, intravenous, Once in imaging, radiopharmaceutical, Starting on Sat02/19/22 at 1004, For 1 dose, Indications: Diagnostic RadiographyIndications:Octavia gnostic Radiography Given 02/19/2022 10:04 AM CDT 10.8 millicuries tc-99m sestamibi unit dose injection 32.8 millicurie 32.8 millicurie, intravenous, Once in imaging, radiopharmaceutical, Starting on Sat02/19/22 at 1226, For 1 dose, Indications: Diagnostic RadiographyIndications:Octavia gnostic Radiography Given 02/19/2022 12:27 PM CDT 32.8 millicuries documented in this encounter Care Teams Edge Dyer Relationship Specialty Start Date End Date Bentley Meza MD [address] [place] [address] PCP - General Emergency Medicine 02/08/22 06/27/22 documented as of this encounter
--- OUTSIDE RECORDS SUMMARY | 2024-10-14 06:01 | XMS_ITS | Encounter Summary ---
Author Organization [facility] Address [address] [facility] [address] [place] [address] Care Team Providers Care Textile Machine Mechanic Name Role Phone Elaine Jain MD Primary Care Provider Reason for Visit * Diagnostic Imaging (Routine) - Closed Specialty Diagnoses / Procedures Referred By Contac t Referred To Contact Diagnoses Right knee pain, unspecified chronicity Procedures XR Pelvis 1 or 2 Views Eliane Morales MD Phone: tel: fax: Referral ID Status Reason Start Date Expiration Date Visits Re quested Visits Authorized [id number] Closed 04/21/2019 10/30/2020 1 1 Encounter Details Date Type Department Care Team (Latest Contact Info) Description 04/21/2019 9:29 AM CDT - 04/21/2019 11:59 PM CDT Hospital Encounter [facility] Orthopedics and Sports Medicine [address] [place] [phone] Discharge Disposition: Discharge to home or self care Social History Tobacco Use Types Packs/Day Years Used Date Smoking Tobacco: Never Assessed Sex and Gender Information Value Date Recorded Sex Assigned at Not on file 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 ??No periosteal reaction or bone destruction. us Eliane Morales MD IMG XR PROCEDURES Ro l Result documented in this encounter Visit Diagnoses Not on filedocumented in this encounter Care Teams Textile Machine Mechanic Relationship Specialty Start Date End Date Elaine Jain MD [address] [facility] [address] [place] [address] PCP - General Gastroenterology 04/08/19 02/07/22 documented as of this encounter
--- OUTSIDE RECORDS SUMMARY | 2024-10-14 06:01 | XMS_ITS | Encounter Summary ---
Author Organization [facility] Address [address] [place] [address] Care Team Providers Care Foot Miter Operator Name Role Phone Elaine Jain MD Primary Care Provider Encounter Details Date Type Department Care Team (Late st Contact Info) Description 08/17/2019 Telephone [facility] Transplant Lung [address] [facility] [phone] [place] [address] Samia Asif Social History Tobacco Use Types Packs/Day Years Used Date Smoking Tobacco: Former Smokeless Tobacco: Former Sex and Gender Information Value Date Recorded Sex Assigned at Not on file Legal Sex Male 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 Explained to pt he has to loose weight, get off narcs and how his lung function is early for transplant. Pt understood and was thankful for the explanation. Pt is in rehab and transitioning to phase III. WASHER OPERATOR * Telephone Encounter - Samia Asif - 08/17/2019 12:34 PM CST He would like to discuss the transplant denial letter. WASHER OPERATOR documented in this encounter Plan of Treatment Not on file documented as of this encounter Visit Diagnoses Not on filedocumented in this encounter Care Teams Foot Miter Operator Relationship Specialty Start Date End Date Elaine Jain MD [address] [address] PCP - General Gastroenterology 04/08/19 02/07/22 documented as of this encounter
--- OUTSIDE RECORDS SUMMARY | 2024-10-14 06:01 | XMS_ITS | Encounter Summary ---
Author Organization [facility] Healthcare Address [address] [place] [address] Care Team Providers Care Emergency Management Director Name Role Phone Elaine Jain MD Primary Care Provider Reason for Visit * Reason Onset Date Comments Referral - Lung Txp 07/15/2019 referral for lung txp ( re-referral ) Encounter Details Date Type Department Care Team (Late st Contact Info) Description 07/15/2019 Telephone [facility] Trans[facility] Lung [address] 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 Pt was referred in 2017, pt was activity using nicotine, was told tostop nicotine and rehab. Pt's records now indicate BMI of 36.5. And on [place] and oxycodone. Pt is not a candidate at this time due to BMI and FEV1 is 34%- premature for COPD at this time. documented in this encounter Plan of Treatment Not on file documented as of this encounter Visit Diagnoses Not on filedocumented in this encounter Care Teams Emergency Management Director Relationship Specialty Start Date End Date Elaine Jain MD [address] [address] PCP - General Gastroenterology 04/08/19 02/07/22 documented as of this encounter
--- OUTSIDE RECORDS SUMMARY | 2024-10-14 06:01 | XMS_ITS | Encounter Summary ---
Author Organization [facility] Address [address] [place] [address] Care Team Providers Care Fans Clerk Name Role Phone Elaine Jain MD Primary Care Provider Encounter Details Date Type Department Care Team (Late st Contact Info) Description 04/27/2019 Orders Only [facility] Orthopedics and Sports Medicine [address] [place] [phone] Jeffery Robles MD [address] [place] [address] [address] [address] Post-traumatic osteoarthritis of right knee (Primary Dx) Social History Tobacco Use Types Packs/Day Years Used Date Smoking Tobacco: Former Smokeless Tobacco: Former Sex and Gender Information Value Date Recorded Sex Assigned at Not on file 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 Gender Identity Not on file Sexual Orientation Not on file documented as of this encounter Progress Notes * Elisha lAejandre - 04/27/2019 7:56 AM CDT Tens documented in this encounter Plan of Treatment Not on file documented as of this encounter Visit Diagnoses Diagnosis Post-traumatic osteoarthritis of right knee- Primary documented in this encounter Orders General Supply Count Last Ordered Date First Or dered Date TENS UNIT 1 04/27/2019 documented in this encounter Care Teams Fans Clerk Relationship Specialty Start Date End Date Elaine Jain MD [address] [facility] [address] [place] [address] PCP - General Gastroenterology 04/08/19 02/07/22 documented as of this encounter
--- OUTSIDE RECORDS SUMMARY | 2024-10-14 06:01 | XMS_ITS | Encounter Summary ---
Author Organization [facility] Address [address] [facility] [address] [place] [id number] Care Team Providers Care Search Consultant Name Role Phone Elaine Jain MD Primary Care Provider Reason for Visit * Diagnostic Imaging (Routine) - Closed Specialty Diagnoses / Procedures Referred By Contac t Referred To Contact Diagnoses Right knee pain, unspecified chronicity Procedures XR Knee Right 4+ View Eliane Morales MD Phone: tel: fax: Referral ID Status Reason Start Date Expiration Date Visits Re quested Visits Authorized [id number] Closed 04/21/2019 10/30/2020 1 1 Encounter Details Date Type Department Care Team (Latest Contact Info) Description 04/21/2019 9:29 AM CDT - 04/21/2019 11:59 PM CDT Hospital Encounter [facility] Orthopedics and Sports Medicine [address] [place] [phone] Discharge Disposition: Discharge to home or self care Social History Tobacco Use Types Packs/Day Years Used Date Smoking Tobacco: Never Assessed Sex and Gender Information Value Date Recorded Sex Assigned at Not on file 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 ??Severe tricompartmental degenerative changes on the right, moderate on the left. ?? No periosteal reaction or bone destruction. ??Well corticated calcification noted at the medial collateral ligament insertion on the left medial femoral condyle. us Eliane Morales MD IMG XR PROCEDURES Ro l Result documented in this encounter Visit Diagnoses Not on filedocumented in this encounter Care Teams Search Consultant Relationship Specialty Start Date End Date Elaine Jain MD [address] [place] [address] PCP - General Gastroenterology 04/08/19 02/07/22 documented as of this encounter
--- OUTSIDE RECORDS SUMMARY | 2024-10-14 06:03 | XMS_ITS | Data Portability ---
Author Organization [facility] Address [address] [place] [address] Care Team Providers Care Airframe And Powerplant Technician Name Role Phone JORDAN MOSQUEDA Correctional Program Specialist Assessment No assessment recorded. Plan of Treatment Reminders Order Date Submit Date Provider Last Modified By Organization Details Last Modified Time Details Appointments None recorded. Lab hemoglobin + hematocrit , blood 2019 [facility], [address] [place] [address], [address], [place], [address], 0 11:29:35 hemoglobin + hematocrit , blood 2019 020 [facility], [address], [place], [address], 0 11:29:43 Referral None recorded. Procedures None recorded. Surgeries None recorded. Imaging None recorded. Medication Orders promethanabell ne-DM 6.25 mg-15 mg/5 mL oral syrup 2019 020 INTERFACE Not available 0 11:20:00 tamsulosin 0.4 mg capsule 2019 020 INTERFACE Not available 0 11:29:16 Patient TargetsNo targets recorded. Patient Instructions Encounter Date Encounter Id Patient Instructions Last Modified By Organization Details Last Modified Time 06/17/2020 [id number] ER (Refused) Discharge summary STAT labs at [facility] Follow up with GI (today) Follow up with the children's book author Follow up in 1-2 weeks gris Not available 06/17/2020 11:23:00 He has refused a n ER evaluation, Me, myself, I feel good gris Not available 06/17/2020 11:22:28 07/15/2020 [id number] Discharge summar y and lab results from MATHEW landry Not available 07/15/2020 11:35:23 Reason for Referral None Reported. Results Created Date Observation Date Name Description Value Unit Range Abnormal Flag Note LastModifiedBy Organization Detail LastModifiedTime 11/11/19 20 11/11/2019 XR, knee, 3 view No observ ation record ed. [facility] (Imaging) [address] [place], [address], 11/18/2019 10:38:18 12/07/19 20 12/07/2019 LDCT, chest , for lung cance r scree kevin No observ ation record ed. [address] (Imaging) [address] [place], [address], 12/15/2019 14:52:56 06/02/20 20 06/01/2020 XR, chest No observ ation record ed. [facility] (Imaging) [address] [place], [address], 06/17/2020 11:17:19 06/02/20 20 06/02/2020 CT, neck, soft tissu e, w/wo contr ast No observ ation record ed. [facility] (Imaging) [address] [place], [address], 06/17/2020 11:17:19 06/02/20 20 06/02/2020 CT, neck, soft tissu e, w/o contr ast No observ ation record ed. [facility] [address], [place], [address], 06/17/2020 11:17:19 06/03/20 20 06/03/2020 opal martinez ow study No observ ation record ed. [facility] (Imaging) [address] [place], [address], 06/17/2020 11:17:19 06/03/20 20 06/03/2020 XR, chest No observ ation record ed. [facility] (Imaging) [address] [place], [address], 06/17/2020 11:17:19 06/05/20 20 06/05/2020 CT, chest , w/o contr ast No observ ation record ed. [facility] (Imaging) [address] [place], [address], 06/17/2020 11:17:19 Result Notes None recorded. Problems Name Problem SNOMED Code Status Onset Date Resolution Date Notes Provider Name and Address Organization Details Recorded Time Allergic rhinitis 37734641 Active 2017 Katlyn Barrett MD Attn: Accountin g,[address] [facility], [place], [address], [place] [facility] 0 11:06:48 Abnormal weight gain 930174150 Active 2018 Katlyn Barrett MD Attn: Accountin g,[address] [facility], [place], [address], [place] [facility] 0 11:06:48 Heartburn 57168529 Active Katlyn Barrett MD Attn: Accountin g,[address] [facility], [place], [address], [place] [facility] 0 11:06:48 Impotence Active Katlyn Barrett MD Attn: Accountin g,[address] [facility], [place], [address], [place] [facility] 0 11:06:48 Cough 49511359 Active Katlyn Barrtet MD Attn: Accountin g,[address] [facility], [place], [address], [place] [facility] 0 11:06:48 Chronic lung disease 005448796 Active Katlyn Barrett MD Attn: Accountin g,[address] [facility], [place], [address] [place] [address] 2, [place] [facility] 0 11:06:48 Knee pain Active Katlyn Barrett MD Attn: Accountin g,[address] [facility], [place], [address] [place] [address] 2, [place] [facility] 0 11:06:48 Chondroma lacia of patella 33238860 Active Katlyn Barrett MD Attn: Accountin g,[address] [facility], [place], [address] [place] [address] 2, [place] [facility] 0 11:06:48 Osteoarth ritis of knee 672298934 Active Katlyn Barrett MD Attn: Accountin g,[address] [place], [place], [address] [place] [address] 2, [place] [facility] 0 11:06:48 Joint pain 76438651 Active Katlyn Barrett MD Attn: Accountin g,[address] [place], [place], [address] [place] [address] 2, [place] [facility] 0 11:06:48 Muscle pain 30068775 Active Katlyn Barrett MD Attn: Accountin g,[address] [place], [address] [place] [address] 2, [place] [facility] 0 11:06:48 Chronic obstructi ve pulmonary disease 79991881 Active Elaine Jain MD Attn: Accountin g,[address] [place], [place], [address] [place] [address] 2, [place] [facility] 6 14:54:50 Tobacco user 895599180 Active Katlyn Barrett MD Attn: Accountin g,[address] [place], [place], [address] [place] [address] 2, [place] [facility] 0 11:06:48 Low back pain 042536695 Active Katlyn Barrett MD Attn: Accountin g,[address] [place], [place], [address] [place] [address] 2, [place] [facility] 0 11:06:48 Paresthes ia 22131064 Active Katlyn Barrett MD Attn: Nela ye,[address] [facility], [place], [address], [place] [facility] 0 11:06:48 Structura l and functiona l abnormali ties of the kidney Completed 01/19/2020 Elaine Jain MD Attn: Nela ye,[address] [facility], [place], [address], [place] [facility] 0 10:39:12 Kidney lesion 962165986908 00 Completed 01/19/2020 Elaine Jain MD Attn: Nela ye,[address] [facility], [place], [address], [place] [facility] 0 10:39:00 Disorder of skin and/or subcutane ous tissue 21807248 Active Katlyn Barrett MD Attn: Nela ye,[address] [facility], [place], [address], [place] [facility] 0 11:06:48 Simple renal cyst 29913170 Active Katlyn Barrett MD Attn: Nela ye,[address] [facility], [place], [address], [place] [facility] 0 11:06:48 Mass of subcutane ous tissue of back 339531047552 103 Active 2015 Katlyn Barrett MD Attn: Nela ye,[address] [facility], [place], [address], [place] [facility] 0 11:06:48 Lower urinary tract symptoms due to benign prostatic hypertrop hy 609011070874 01 Active 2016 Katlyn Barrett MD Attn: Chadjose e ye,[address] [facility], [place], [address], [place] [facility] 0 11:06:48 Constipat ion 78921710 Active 2016 Katlyn Barrett MD Attn: Nela ye,[address] [facility], [place], [address], [place] [facility] 0 11:06:48 Problem Notes None recorded. Procedures Surgical History Date Name Laterality Status Provider Name and Address Organization Details Recorded Time 5 Joint Injection completed Ramy Yarbrough ID - [facility] 05/23/2015 15:07:30 Imaging Results Imaging Date Name Status LastModified by Organiz ation Details LastModified Time 11/11/2019 XR, knee, 3 view completed [facility] (Imaging) [address] [place], [address], 11/18/2019 10:38:18 12/07/2019 LDCT, chest, for lung cancer screening completed [address] (Imaging) [address] [place], [address], 12/15/2019 14:52:56 06/01/2020 XR, chest completed [facility] (Imaging) [address] [place], [address], 06/17/2020 11:17:19 06/02/2020 CT, neck, soft tissue, w/wo contrast completed [facility] (Imaging) [address] [place], [address], 06/17/2020 11:17:19 06/02/2020 CT, neck, soft tissue, w/o contrast completed [facility] [address], [place], [address], 06/17/2020 11:17:19 06/03/2020 barium swallow study completed [facility] (Imaging) [address] [place], [address], 06/17/2020 11:17:19 06/03/2020 XR, chest completed [facility] (Imaging) [address] [place], [address], 06/17/2020 11:17:19 06/05/2020 CT, chest, w/o contrast completed [facility] (Imaging) [address] [place], [address], 06/17/2020 11:17:19 Procedure Notes None recorded. Medical Equipment None Reported. Allergies Allergen ID Allergen Name Allergen Category Reaction Reaction Severity Criticality Documentation Date Start Date Code Code System Note Provider Name and Address Organization Details Recorded Time 22117 oxycodone medicatio n itching moderate Not available 12/02/2015 6714 [facility] Juaquin Gaspar MD [address] [place], [address], [facility] 6 11:11:56 Medications Name Sig Start Date Stop Date Status Note LastModified by Organization Details LastModified Time Prescripti on - Renewal 12/31 completed Script for refill on Oxycodo ne-Acet aminoph en. Not Available Not Available Not Available cyclobenza jase 10 mg tablet 12/31 completed Not Available Not Available Not Available amoxicilli n 500 mg capsule 12/31 completed Not Available Not Available Not Available clotrimazo le 10 mg gerry 07/15 completed Not Available Not Available Not Available buspirone 5 mg tablet active Not Available Not Available Not Available promethazi ne-DM 6.25 mg-15 mg/5 mL oral syrup TAKE 10 ML BY MOUTH EVERY 8 HOURS NEEDED FOR COUGH active Not Available Not Available No t Available Colace 100 mg capsule Take 2 capsules every day by oral route. 12/31 completed Not Available Not Available Not Available prednisone 10 mg tablet active Not Available Not Available Not Available ipratropiu m 0.5 mg-albuter ol 3 mg (2.5 mg base)/3 mL nebulizati on soln Inhale 3 mL 4 times a day by nebuliza tion route as needed. 12/31 completed Not Available Not Available Not Available Acetaminop hen Extra Strength 500 mg tablet Take 1 tablet every 8 hours by oral route. 05/19 completed Not Available Not Available Not Available albuterol sulfate 2.5 mg/3 mL (0.083 %) solution for nebulizati on INHALE 1 VIAL VIA NEBULIZE R FOUR TIMES DAILY NEEDED . active Not Available Not Available No t Available azithromyc in 250 mg tablet 12/31 completed Not Available Not Available Not Available ibuprofen 800 mg tablet Take 1 tablet 3 times a day by oral route. 12/12 completed Not Available Not Available Not Available benzonatat e 200 mg capsule active Not Available Not Available Not Available ranitidine 300 mg tablet TAKE ONE TABLET TWICE DAILY 05/19 completed Not Available Not Available Not Available clarithrom ycin 500 mg tablet 12/31 completed Not Available Not Available Not Available hydrocodon e 5 mg-acetami nophen 325 mg tablet Take 1 tablet every 12 hours by oral route. active Not Available Not Available No t Available Celestone Soluspan 6 mg/mL suspension for injection 12/31 completed Not Available Not Available Not Available prednisone 20 mg tablet 05/19 completed Not Available Not Available Not Available prednisone 5 mg tablet 06/17 completed Not Available Not Available Not Available acetaminop hen 300 mg-codeine 30 mg tablet active Not Available Not Available Not Available ciprofloxa denny 500 mg tablet 05/19 completed Not Available Not Available Not Available aspirin 81 mg tablet,del ayed release Take 1 tablet every day by oral route. active Not Available Not Available No t Available tramadol 50 mg tablet Take 1 tablet every 8 hours by oral route as needed. 12/31 completed Not Available Not Available Not Available Tessalon Perles 100 mg capsule Take 2 capsules 3 times a day by oral route. 12/31 completed Not Available Not Available Not Available alprazolam 0.5 mg tablet Take 1 tablet 3 times a day by oral route. active Not Available Not Available No t Available alprazolam 0.25 mg tablet Take 1 tablet 3 times a day by oral route. 12/31 completed Not Available Not Available Not Available famotidine 20 mg tablet Take one tab twice daily 05/19 completed Not Available Not Available Not Available prednisolo ne acetate 1 % eye drops,susp ension active Not Available Not Available Not Available oxycodone- acetaminop hen 10 mg-325 mg tablet Take 1 tablet every 12 hours by oral route. 07/01 completed Not Available Not Available Not Available tamsulosin 0.4 mg capsule TAKE ONE CAPSULE BY MOUTH EVERY DAY active Not Available Not Available No t Available hydrocodon e 7.5 mg-acetami nophen 325 mg tablet Take 1 tablet every 8 hours by oral route. 07/01 completed Not Available Not Available Not Available ranitidine 150 mg tablet 05/19 completed Not Available Not Available Not Available nicotine 21 mg/24 hr daily transderma l patch 12/31 completed Not Available Not Available Not Available nitroglyce rin 0.4 mg sublingual tablet 12/31 completed Not Available Not Available Not Available omeprazole 20 mg capsule,de layed release One capsule every morning before breakfas t active Not Available Not Available No t Available budesonide 0.5 mg/2 mL suspension for nebulizati on active Not Available Not Available Not Available diclofenac sodium 75 mg tablet,del ayed release Take 1 tablet twice a day by oral route after meals. 12/12 completed Not Available Not Available Not Available morphine ER 15 mg tablet,ext ended release 12/31 completed Not Available Not Available Not Available bisacodyl 5 mg tablet,del ayed release 12/31 completed Not Available Not Available Not Available ibuprofen 600 mg tablet Take 1 tablet 3 times a day by oral route as needed. 12/31 completed Not Available Not Available Not Available polyethyle ne glycol 3350 17 gram/dose oral powder 12/31 completed Not Available Not Available Not Available levofloxac in 500 mg tablet 12/31 completed Not Available Not Available Not Available levofloxac in 750 mg tablet 05/19 completed Not Available Not Available Not Available methylpred nisolone 4 mg tablets in a dose pack 12/31 completed Not Available Not Available Not Available albuterol sulfate HFA 90 mcg/actuat ion aerosol inhaler INHALE TWO PUFFS BY MOUTH FOUR TIMES DAILY active Not Available Not Available No t Available Vitamin D2 1,250 mcg (50,000 unit) capsule active Not Available Not Available Not Available fluticason e propionate 50 mcg/actuat ion nasal spray,susp ension USE TWO SPRAYS IN EACH NOSTRIL DAILY active Not Available Not Available No t Available ipratropiu m bromide 0.02 % solution for inhalation active Not Available Not Available N ot Available naproxen 500 mg tablet TAKE 1 TABLET BY MOUTH TWICE DAILY WITH MEALS 07/05 completed Not Available Not Available Not Available amoxicilli n 875 mg-potassi um clavulanat e 125 mg tablet 12/31 completed Not Available Not Available Not Available azithromyc in 500 mg tablet M/W/F active Not Available Not Available Not Available Spiriva with HandiHaler 18 mcg and inhalation capsules Inhale 1 capsule every day by inhalati on route. 12/31 completed Not Available Not Available Not Available Flovent HFA 220 mcg/actuat ion aerosol inhaler 12/31 completed Not Available Not Available Not Available Atrovent HFA 17 mcg/actuat ion aerosol inhaler 12/31 completed Not Available Not Available Not Available magnesium active Not Available Not Emmy ilable Not Available budesonide active Not Available Not Av ailable Not Available Pulmicort Flexhaler 90 mcg/actuat ion breath activated Inhale 2 puffs twice a day by inhalati on route. 12/31 completed Not Available Not Available Not Available Brovana 15 mcg/2 mL solution for nebulizati on Inhale 2 mL twice a day by inhalati on route. active Not Available Not Available No t Available Dulera 200 mcg-5 mcg/actuat ion HFA aerosol inhaler 07/01 completed Not Available Not Available Not Available Calcium with Vit D3 600 mg (as carbonate) -12.5 mcg (500 unit) capsule Take 1 capsule every day by oral route. active Not Available Not Available No t Available Daliresp 500 mcg tablet active Not Available Not Available Not Available Mucus DM 30 mg-600 mg tablet,ext ended release TAKE 1 TABLET BY MOUTH EVERY 12 HOURS active Not Available Not Available No t Available Eliquis 5 mg tablet active Not Available Not Available No t Available Prolensa 0.07 % eye drops active Not Available Not Available Not Available Narcan 4 mg/actuati on nasal spray active Not Available Not Available Not Available Lonhala Magnair Refill 25 mcg/mL solution for nebulizati on Inhale 1 mL twice a day by nebuliza tion route. active Not Available Not Available No t Available Lonhala Magnair Starter 25 mcg/mL solution for nebulizati on 07/15 completed Not Available Not Available Not Available Vitals Date Recorded Body height Body mass index (BMI) Body weight Body temperature Oxygen saturation Oxygen saturation in Arterial blood by Pulse oximetry Heart rate Systolic blood pressure Diastolic blood pressure Provider Name and Address Organization Details Last Updated DateTime 9 175.26 cm 37.5 kg/m2 406212. 46 g 98.1 [degF] 94 % 94 % 84 /min 122 mm[Hg] 84 mm[Hg] Emilia Hebert MA [facility] 9 10:50:24 Date Recorded Body height Provider Name an d Address Organization Details Last Updated DateTime 01/19/2020 175.26 cm Emilia Hebert MA [facility] 0 09:40:18 Date Recorded Body height Provider Name an d Address Organization Details Last Updated DateTime 05/19/2020 175.26 cm Emilia Hebert MA [facility] 0 09:47:41 Date Recorded Body height Provider Name an d Address Organization Details Last Updated DateTime 06/17/2020 175.26 cm Lalita Buckner MA [facility] 06/17/20 20 10:01:54 Date Recorded Body height Provider Name an d Address Organization Details Last Updated DateTime 07/15/2020 175.26 cm Jenna Molina MA [facility] 020 10:52:41 Social History Question Answer Notes LastModified by Organizat ion Details LastModified Time Tobacco Smoking Status Former Smoker Quit 12/24/2018 [facility]ilia [facility] 04/30/2019 10:31:18 What Is Your Level Of Alcohol Consumption? Moderate Information not available 01/04/2015 What Is Your Level Of Caffeine Consumption? Occasional Information not available 01/04/2015 What Was The Date Of Your Most Recent Tobacco Screening? 07/15/2020 [email or web address] Information not available 07/15/2020 At What Age Did You Start Smoking Tobacco? 12 Information not available 01/04/2015 How Much Tobacco Do You Smoke? 0.25 PPD Information not available 04/30/2019 How Many Years Have You Smoked Tobacco? 45 Information not available 06/27/2017 Sex: Unknown Functional Status None recorded. Mental Status None recorded. Family History Relationship Description Onset Age of this Age Resolved Age Notes LastModified by Organization Details LastModified Time Mother Cerebrovascu lar accident [email or web address] Not available 11:11:55 Mother Dementia dschwarze Not availabl e 12/02/2015 11:11:55 Mother Heart disease dschwarze Not available 2015 11:11:55 Mother Hypercholest erolemia dschwarze Not available 2015 11:11:55 Mother Hypertensive disorder dschwarze Not available 2015 11:11:55 Father Diabetes mellitus dschwarze Not available 2015 11:11:55 Father Hypertensive disorder dschwarze Not available 2015 11:11:55 Medical History Condition Response COPD Y Acid Reflux (GERD) Y Allergies Y Past Encounters Encounter ID Performer Location Encounter Start Date Encounter Closed Date Diagnosis/Indication Diagnosis SNOMED-CT Code Diagnosis ICD10 Code [id number] [facility] (Adult Med) [address] [place] [id number] 09/27/2014 15:04:00 09/27/2014 17:04:25 Chronic obstructive pulmonary disease 70295826 Tobacco user 932742098 Low back pain 549090013 Joint pain 19610913 Paresthesia 30282485 [id number] [facility] (Adult Med) [address] [place] [id number] 01/04/2015 14:16:36 01/04/2015 16:04:41 Chronic obstructive pulmonary disease 03406055 Heartburn 35165830 Joint pain 53423169 Impotence 163450036 [id number] Elaine Jain MD [facility] (Adult Med) [address] [place] [id number] 02/03/2015 13:56:33 02/03/2015 14:30:34 Joint pain 59397071 Chronic ob structive pulmonary disease 05735111 Low back pain 104872531 [id number] MD [facility] (Adult Med) [address] [place] [id number] 02/14/2015 10:05:33 02/14/2015 15:25:14 Cough 58288003 Tobacco user 559167971 Chronic lung disease 413 249680 [id number] MD [facility] (Adult Med) [address] [place] [id number] 04/19/2015 12:53:17 04/20/2015 10:06:04 Chronic lung disease 887938154 Low back pain 475995006 Tobacco user 405039915 Heartburn 82239960 [id number] [facility] (Adult Med) [address] [place] [id number] 05/17/2015 16:01:13 05/19/2015 11:34:27 Knee pain 06736666 Chronic ob structive pulmonary disease 51048089 Paresthesia 24437685 [id number] Elaine Jain MD [facility] [address] [place] [id number] 05/23/2015 14:26:20 05/24/2015 14:55:47 Chondromalacia of patella 73768312 Knee pain 57295567 Osteoarthr itis of knee 612881984 [id number] [facility] [address] [place] [id number] 06/30/2015 09:28:33 06/30/2015 15:13:52 [id number] Juaquin Gaspar MD [facility] [address] [place] [id number] 08/08/2015 09:05:11 08/08/2015 17:10:25 Knee pain 68813208 M25.561 Osteoarthr itis of knee 951797457 M17.11 Chondromal acia of patella 23262974 M22.41 [id number] Mikala Montez is [facility] (Adult Med) [address] [place] [id number] 08/18/2015 14:02:14 08/18/2015 18:09:16 Low back pain 648293333 M54.5 Osteoarthr itis of knee 323358932 M17.9 [id number] Juaquin Gaspar MD [facility] [address] [place] [id number] 12/02/2015 10:57:53 12/02/2015 13:22:24 Knee pain 13636042 M25.561 Osteoarthr itis of knee 292478471 M17.11 Chondromal acia of patella 76020981 M22.41 [id number] Mikala Montez is [facility] (Adult Med) [address] [place] [id number] 01/10/2016 14:32:02 01/10/2016 18:23:06 Chondromalacia of patella 94602780 M22.41 Chronic ob structive pulmonary disease 79198392 J44.9 Knee pain 56074361 M25.5 61 Adult heal th examination 908112403 Z00.01 Screening for malignant neoplasm of colon 515309884 Z12.11 [id number] [facility] [address] [place] [id number] 04/24/2016 14:38:44 04/24/2016 16:44:15 Chronic obstructive pulmonary disease 61825190 J44.9 Cough 24501293 R05 Knee pain 75937198 M25.5 61 Kidney lesion 6530165615 9100 N28.9 Disorder o f skin and/or subcutaneous tissue 48875237 L98.9 [id number] [facility] [address] [place] [id number] 06/05/2016 13:20:16 06/05/2016 18:11:10 Simple renal cyst 82980988 N28.1 Chronic ob structive pulmonary disease 63557415 J44.9 Joint pain 76526639 M25. 50 Osteoarthr itis of knee 172515475 M17.9 [id number] [facility] [address] [place] [id number] 10/04/2016 13:14:32 10/04/2016 15:06:14 Chronic obstructive pulmonary disease 88460515 J44.9 Tobacco user 178763363 Z 72.0 Cough 33906440 R05 [id number] MD [facility] (Adult Med) [address] [place] [id number] 11/14/2016 15:26:51 11/14/2016 17:50:37 Chronic obstructive pulmonary disease 24139714 J44.9 Osteoarthr itis of knee 514156262 M17.9 Low back pain 836679401 M54.5 [id number] MD [facility] (Adult Med) [address] [place] [id number] 01/17/2017 13:02:09 01/17/2017 14:50:29 Chronic obstructive pulmonary disease 64704816 J44.9 Osteoarthr itis of knee 377107145 M17.9 Low back pain 094183111 M54.5 Chondromal acia of patella 52463734 M22.41 Cough [id number] R05 [id number] Elaine Jain MD [facility] (Adult Med) [address] [place] [address] [id number] 04/03/2017 14:05:39 04/17/2017 12:08:04 Chronic obstructive pulmonary disease 93028269 J44.9 Cough 19612732 R05 Impotence 253643975 N52. 9 Osteoarthr itis of knee 636540725 M17.9 [id number] [facility] [address] [place] [address] [id number] 06/27/2017 14:13:46 06/27/2017 16:18:33 Chronic obstructive pulmonary disease 34930223 J44.9 Heartburn 69401171 R12 Lower urin ayaz tract symptoms due to benign prostatic hypertrophy 5675839205 9101 N40.1 Constipation 35958426 K5 9.00 [id number] Elaine Jain MD [facility] (Ad[facility] [address] [place] [address] [phone] 12/26/2017 14:52:39 12/26/2017 16:26:13 Chronic obstructive pulmonary disease 68636595 J44.9 Lower urin ayaz tract symptoms due to benign prostatic hypertrophy 1277000136 9101 N40.1 Heartburn 90835708 R12 Allergic rhinitis 495875 04 J30.9 [id number] Elaine Jain MD [facility] (Adult Med) [address] [place] [address] [id number] 05/13/2018 10:58:42 05/13/2018 12:48:47 Chronic lung disease 117772857 J98.4 Chondromal acia of patella 61427446 M22.41 Chronic ob structive pulmonary disease 54950172 J44.9 Lower urin ayaz tract symptoms due to benign prostatic hypertrophy 5597795750 9101 N40.1 Heartburn 90231485 R12 Osteoarthr itis of knee 258695450 M17.9 [id number] Elaine Jain MD [facility] (Adult Med) [address] [place] [address] [phone] 0 09/02/2018 11:13:37 09/02/2018 13:04:53 Chronic obstructive pulmonary disease 35756131 J44.9 Osteoarthr itis of knee 954695594 M17.9 Low back pain 494605691 M54.5 Chondromal acia of patella 63522064 M22.41 Paresthesia 97459578 R20 .2 Heartburn 57311677 R12 [id number] [facility] [address] [place] [address] [id number] 10/29/2018 12:03:21 10/30/2018 09:23:48 Chronic obstructive pulmonary disease 68535463 J44.9 Tobacco user 287358544 Z 72.0 Computed t omography result abnormal 939210457 R93.89 [id number] MD [facility] (Adult Med) [address] [place] [address] [id number] 0 12/31/2018 12:05:34 01/01/2019 12:22:50 Chronic obstructive pulmonary disease 35379029 J44.9 Osteoarthr itis of knee 794003329 M17.9 Knee pain 69135909 M25.5 61 Allergic rhinitis 089315 04 J30.9 [id number] MD Michelle [facility]win (Adult Med) [address] [place] [address] [id number] 0 04/30/2019 09:25:34 05/01/2019 09:51:56 Chronic obstructive pulmonary disease 33343286 J44.9 Heartburn 29135855 R12 Osteoarthr itis of knee 407663201 M17.9 Knee pain 46539317 M25.5 61 Lower urin ayaz tract symptoms due to benign prostatic hypertrophy 6605790038 9101 N40.1 Abnormal weight gain 161 029183 R63.5 Cough 46375662 R05 [id number] MD [facility] (Adult Med) [address] [place] [address] [id number] 0 08/25/2019 09:39:42 08/25/2019 11:14:40 Chronic obstructive pulmonary disease 22557325 J44.9 Osteoarthr itis of knee 151604432 M17.9 Low back pain 070415107 M54.5 Lower urin ayaz tract symptoms due to benign prostatic hypertrophy 3821328584 9101 N40.1 [id number] [facility] [address] [place] [address] [phone] 01/19/2020 09:39:38 01/20/2020 12:11:56 Chronic lung disease 539129254 J98.4 Heartburn 29983151 R12 Lower urin ayaz tract symptoms due to benign prostatic hypertrophy 0098313914 9101 N40.1 Osteoarthr itis of knee 022891434 M17.9 Tobacco user 198650219 Z 72.0 [id number] MD Michelle [facility]win (Adult Med) [address] [place] [address] [phone] 05/19/2020 08:18:06 05/20/2020 11:12:16 Chronic lung disease 688285251 J98.4 Heartburn 29725278 R12 [id number] Katlyn Barrett MD [facility] (Adult Med) [address] [place] [address] [phone] 0 06/17/2020 08:16:26 06/21/2020 20:21:49 Hemoptysis 09380208 R04.2 Chronic ob structive pulmonary disease 85953382 J44.9 Cough 44051146 R05 [id number] Katlyn Barrett MD Michelle (Adult Med) [address] [place] [address] [phone] 0 07/15/2020 08:25:00 07/16/2020 06:46:52 Benign prostatic hyperplasia 285115455 N40.1 Health Concerns Section Related Observation LastModified by Organization Detai ls LastModified Time None Recorded Concern Status LastModified by Organization Details LastModified Time None Recorded Advance Directives Directive None Recorded Payers Encounter Date Sequence Insurance Name Policy Number Policy Walls Covered Member ID Walls Member ID Guarantor Name 08/25/2019 1 [place] Bentley Mesa [id number] Bentley Mesa 08/25/2019 2 [place] [facility] (MEDICAID REPLACEMENT - HMO) [id number] Bentley Mesa [id number] Bentley Mesa 01/19/2020 1 [place] Bentley Mesa [id number] Bentley Mesa 01/19/2020 2 [place] [facility] (MEDICAID REPLACEMENT - HMO) [id number] Bentley Mesa [id number] Bentley Mesa 05/19/2020 1 [place] [facility] Bentley Le Bonita [id number] Bentley Mesa 05/19/2020 2 [place] WHEN MED[place]ARE OR MEDICARE REPLACEMENT PRIMARY) Bentley Mesa [id number] Bentley Mesa 06/17/2020 1 [place] [facility] Stewart Bonita [id number] Bentley Mesa 06/17/2020 2 [place] OR MEDICARE REPLACEMENT PRIMARY) Bentley Mesa [id number] Bentley Mesa 07/15/2020 1 [place] [facility] Bentley Le [place]ita [id number] Bentley Mesa 07/15/2020 2 [place] OR MEDICARE REPLACEMENT PRIMARY) Bentley Mesa [id number] Bentley Mesa Notes Date Note Type Note Provider Name and Address Organization Details Recorded Time 08/25/2019 text/html No new complaint s. Is being considered for lung transplant. Currently doing pulmonary rehab. Elaine Jain MD Attn: Accounting[address] [facility], [place], [address], [facility] 08/25/2019 11:09:22 01/19/2020 text/html Telephone visit due to Covid-19 precautions. No new complaints at present. Elaine Jain MD Attn: Accounting[address] [facility], [place], [address], [facility] 01/19/2020 10:40:20 05/19/2020 text/html Telephone visit due to Covid-19 precautions. He has je more SOB lately. Scheduled to see pulmonary soon. Cataract surgery rescheduled because he was not feeling well. famotidine not as effective as ranitidine. Otherwise doing OK. Elaine Jain MD Attn: Accounting[address] [facility], [place], [address], [facility] 05/19/2020 10:51:18 06/17/2020 text/html Phone visit due to the Covid 19 Dr Jain' patient My breathing is really, really, better But last night, I got to coughing, some blood came up from my throat I had a procedure done on my throat I kind of vomited Mr Mesa was apparently admitted to [facility] and discharged last week, unfortunately he had a procedure done for a hernia? during that admission. He was doing better and last night while coughing, he either coughed up or vomited about 1/4 of a cup of blood. He denies any abdominal pain and he feels pretty good. He denies any history of PUD and he has an appointment with GI this afternoon. He is currently at the chief of staff's office PMHX COPD, OA, Tobacco, LBP The discharge summary is not on file but the continuity of care document suggests that he hadChronic obstructive lung disease ; Chronic back pain ; Benign prostatic hyperplasia ; Arthritis. Barium swallow normalCT chest; Infiltrates, CAD, Small HHCT neck; Asymmetry, Tracheal abnormality Katlyn Barrett MD Attn: Accounting[address] [place], [address], [facility] 06/17/2020 11:53:12 07/15/2020 text/html Phone visit due to the Covid [address] Cristobal' patient I just came home from , I had a COPD exacerbation They have been calling about some kind of test I was supposed to have I have been trying to get a prescription They said that it is not I am in the process of doing some blood work Admitted to with an exacerbation of his COPD and discharged yesterday. He is feeling better and he is in the process of finding a new PCP. He was told that he had a thick build up of mucus and not candidiasis, hence he no longer needs the Clotrimazole that he was trying to get refilled. He however needs his Tamsulosin refilled. Katlyn Barrett MD Attn: Accounting[address] [place], [address], [facility] 07/15/2020 21:52:32
--- OUTSIDE RECORDS SUMMARY | 2024-10-14 06:07 | XMS_ITS | CONTINUITY OF CARE DOCUMENT ---
Author Name jose juan manzano Address Unknown Organization [facility] Address [address] [place] [address] Phone [phone] Care Team Providers Care Elementary Instructional Coach Name Role Phone Randy Wynne MD Unavailable [phone] OLIVIA SAUNDERS MD Unavailable JEAN FINCH MD Unavailable INSURANCE PROVIDERS Payer name Policy type / Coverage type [place] [employer] [facility] Medicaid 1 [id number]
--- OUTSIDE RECORDS SUMMARY | 2024-10-14 06:07 | XMS_ITS | Encounter Summary ---
Author Organization [facility] Address [address] [place] [address] Care Team Providers Care Metals Analyst Name Role Phone Unavailable Primary Care Provider Unavailabl e Reason for Visit * Reason Onset Date Comments Procedure 03/21/2021 Encounter Details Date Type Department Care Team (Late st Contact Info) Description 03/21/2021 Telephone [facility] Pulmonology [facility] [address] [place] [address] Carson Pineda MD [address] [place] [address] Procedure Social History Tobacco Use [...] encounter Miscellaneous Notes * Telephone Encounter - Vero Leiva - 03/21/2021 10:36 AM CDT I called and spoke with the patient and his and went over all the instructions with them abouthis Bronch Procedure * Telephone Encounter - Vero Leiva - 03/21/2021 10:21 AM CDT Bronch has been scheduled * Telephone Encounter - Carson Pineda MD - 03/21/2021 8:54 AM CDT Please call patient and schedule a bronchoscopy radial EBUS with fluoroscopy, stiven Doll on 03/23/2021 at 11 AM. N.p.o. from midnight on day of procedure including medications except for inhalers or nebulized medications. Please call patient at listed home number documented in this encounter Plan of Treatment Not on file documented as of this encounter Visit Diagnoses Not on filedocumented in this encounter
== END 2024-10-07 17:02 | disposition home or self-care (01) ==
PROVIDERS: Emergency Provider Emergency Medicine
DX: R07.9 Chest pain, unspecified (principal); F41.9 Anxiety disorder, unspecified; R06.02 Shortness of breath; Z20.822 Contact with and (suspected) exposure to COVID-19; N40.0 Benign prostatic hyperplasia without lower urinary tract symptoms; Z86.718 Personal history of other venous thrombosis and embolism; K21.9 Gastro-esophageal reflux disease without esophagitis; J44.9 Chronic obstructive pulmonary disease, unspecified; M19.90 Unspecified osteoarthritis, unspecified site; Z99.81 Dependence on supplemental oxygen
CPT/HCPCS: 36415; 71046; 80053; 83690; 84484; 85025; 85610; 85730; 87637; 93005; 94640; 96374; 99284; A9270; J1171

== ENCOUNTER 2024-11-27 10:10 | Emergency (ER) | payer MEDICARE, MEDICAID, SELFPAY ==
[2024-11-27] VITALS (8 sets, daily range): BP systolic 142–153; BP diastolic 97–106; PULSE 99–112; RESP 17–21; O2SAT 100
--- NOTE | ~2024-11-27 | CT_ITS ---
EXAMINATION: CT cervical spine wo con DATE: 11/27/2024 12:10 INDICATION: Fall TECHNIQUE: Computed tomography (CT) of the cervical spine was performed without intravenous contrast. Automated exposure control and iterative reconstruction technique were employed. The dose-length pro duct was 549.11 mGy-cm. COMPARISON: None FINDINGS: Slight reversal of the normal cervical doses which could be positional or due to muscle spasm. Severe atlantoaxial osteoarthritis. Vertebral body heights are normal. No fracture. Moderate disc height lo ss with severe uncovertebral osteoarthritis at C4-C5, C5-C6 and C6-C7. Mild disc height loss at remai kevin cervical levels. Disc bulges resulting in multilevel minimal to mild central canal stenosis at C 2-C3 through C6-C7. Severe facet osteoarthritis on the left at C3-C4 with mild to moderate facet oste oarthritis scattered throughout the remainder of the cervical spine. There is moderate neural foramin al stenosis on the left at C3-C4 and on the right at C4-C5 through C6-C7 with mild neural from stenos is at many of the remaining cervical neural foramina. This edema in the visualized upper lungs with c hronic right upper lobar collapse. IMPRESSION: 1. Moderate cervical spondylosis with no acute fracture. 2. Mild reversal of the normal cervical lordosis which could be positional or due to muscle spasm. Reviewed, dictated and finalized at location A. E STRAIGHTENER IMPRESSION: 1. Moderate cervical spondylosis with no acute fracture. 2. Mild reversal of the normal cervical lordosis which could be positional or d ue to muscle spasm.
--- NOTE | ~2024-11-27 | CT_ITS ---
EXAMINATION: CTA chest PE protocol DATE: 11/27/2024 12:10 INDICATION: Chest pain and dyspnea TECHNIQUE: Computed tomography (CT) pulmonary angiogram of the chest was performed with 100 mL Omnipa que-350 intravenous contrast. Additional 3D reconstructions utilizing coronal maximum intensity proje ction (MIP) were performed. Automated exposure control and iterative reconstruction technique were em ployed. The dose-length product was 832.10 mGy-cm. COMPARISON: 02/19/2024 and 02/17/2023 FINDINGS: No pulmonary embolism. Chronic right upper lobe collapse with endobronchial valves in the right upper lobe are segmental bronchi. Chronic mild linear discoid atelectasis/scarring in the bilateral lower lobes, right greater than left. No pneumonia, pulmonary edema, pleural effusion or pneumothorax. Hear t size is normal. Atherosclerotic coronary artery calcification is. No pericardial effusion. Thoracic aorta is normal in caliber with no dissection. Multinodular goiter. No pathologically enlarged thora cic lymphadenopathy. A couple 2 mm nonobstructing stones at an upper pole calyx of the right kidney. Mild thoracic spondylosis. IMPRESSION: 1. No pulmonary embolism or other acute cardiopulmonary disease. 2. Moderate emphysema with endobronchial valves in the right upper lobar bronchi with chronic collaps e of the right upper lobe. 3. Multinodular goiter. 4. Nonobstructing right nephrolithiasis. Reviewed, dictated and finalized at location A. OW AND SIDING CRAFTSMAN IMPRESSION: 1. No pulmonary embolism or other acute cardiopulmonary disease. 2. Moderate emphysema with endobronchial valves in the right upper lobar bronch i with chronic collapse of the right upper lobe. 3. Multinodular goiter. 4. Nonobstructing right nephrolithiasis.
--- NOTE | ~2024-11-27 | XR_ITS ---
EXAMINATION: XR chest 1V portable DATE: 11/27/2024 10:54 INDICATION: Dyspnea. Cough. TECHNIQUE: A single frontal view of the chest was obtained. COMPARISON: Chest 2 views 10/07/2024 FINDINGS: There are lucencies in the lungs, consistent with emphysema. There is chronic collapse of r ight lung upper lobe with endobronchial valves. No pleural effusion or pneumothorax. The heart size i s normal. IMPRESSION: 1. Emphysema. 2. 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 Reviewed, dictated and finalized at location A. MANAGER
--- NOTE | ~2024-11-27 | CT_ITS ---
EXAMINATION: CT brain wo con DATE: 11/27/2024 12:10 INDICATION: Fall TECHNIQUE: Computed tomography (CT) of the head was performed without intravenous contrast. Sagittal and coronal reconstructions were performed. The mA was adjusted according to patient size. Iterative reconstruction technique was employed. The dose-length product was 832.10 mGy-cm. COMPARISON: Brain MR dated 08/25/2024 FINDINGS: No fracture. Again seen are small old infarcts at the baron, right basal ganglia and left thalamus. No acute intracranial hemorrhage, acute infarction or abnormal extra axial fluid collection. There is m oderate scattered white matter hypoattenuation consistent with chronic small vessel ischemic disease. Ventricles are normal and symmetric with normal variant cavum septum pellucidum et vergae. No mass/m ass effect. Changes of bilateral intraocular lens replacement. The orbits and mastoid air cells are n ormal. There are some dependent mucus in the right sphenoid sinus. IMPRESSION: 1. No fracture or acute intercranial process. 2. 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 Reviewed, dictated and finalized at location A. MBLY INSPECTOR IMPRESSION: 1. No fracture or acute intercranial process. 2. 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
--- OUTSIDE RECORDS SUMMARY | 2024-11-27 10:25 | XMS_ITS | Data Portability ---
Author Organization [facility] Arte Manifiesto, Main Office Address [address] [place] [address] Care Team Providers Care Senior Wind Turbine Technician Name Role Phone GUILLAUME ERAZO Primary Care Provider [phone] GUILLAUME ERAZO Referring Provider [phone] Assessment No assessment recorded. Plan of Treatment Reminders Order Date Submit Date Provider Last Modified By Organization Details Last Modified Time Details Appointments Any 30 2024 08:00A Jesu Nolasco NP Not available Not available Not available Lab TSH, serum or plasma [address] (Lab), [address] [place], [address], 06/02/2024 10:46:58 T4, free, serum [address] (Lab), [address] [place], [address], 06/02/2024 10:47:09 CBC w/ auto diff [address] (Lab), [address] [place], [address], 06/02/2024 10:46:49 PSA, serum or plasma [address] [facility] (Lab), [address] [place], [address], 03/06/2024 00:11:54 lipid panel, serum 2023 024 [facility] (Lab), [address] [place], [address], 03/06/2024 00:11:55 TSH, serum or plasma [email or web address] [place] [address] (Lab), [address] [place], [address], 03/19/2024 08:05:47 CBC w/ auto diff 2023 024 [facility] (Lab), [address] [place], [address], 03/06/2024 00:11:55 glycohemo globin, total, blood 2023 [facility] (Lab), [address] [place], [address], 03/06/2024 00:11:55 CMP, serum or plasma 2023 024 [facility] (Lab), [address] [place], [address], 03/06/2024 00:11:[address] referral - Please call patient to schedule an appointme nt. Thank you. 2023 024 [email or web address] [facility] [address], [place], [address], 06/30/2024 08:46:[address] referral - Please call patient to schedule an appointme nt. Thank you. 2023 024 [email or web address] [facility] [place] [address], [place], [address], 04/02/2024 09:31:09 Procedures None recorded. Surgeries None recorded. Imaging None recorded. Medication Orders lorazepam 0.5 mg tablet 2024 025 [id number], [address] [place], [place], [id number], 11/03/2024 15:56:17 buspirone 5 mg tablet 2024 [facility][id number] [place], [place], [id number], 11/03/2024 15:56:16 Patient TargetsNo targets recorded. Patient Instructions Encounter Date Encounter Id Patient Instructions Last Modified By Organization Details Last Modified Time 03/05/2024 [id number] dementia rating scale-2* [email or web address] Not available 03/05/2024 15:07:17 alcohol misuse* [email or web address] Not available 03/05/2024 15:07:25 depression screening* [email or web address] Not available 03/05/2024 15:07:28 multi-dimensiona l health assessment questionnaire* Not available 03/05/2024 15:07:20 Personalized [facility] Plan and Screening Recommendations Advance Directives - Do you have one? No Advance Directives - Do we have your [...] 10% of your body weight Physical activity: Need more exercise/physical activity decrease sitting time to no more than 5hr/day Nutrition: Good Average Fall Risk (screened today): Low Vaccines Pneumococcal: Ordered Recommended today Influenza: Your next one in the fall of this year Chronic Disease Risks Stroke: Low Risk I have no recommendations Heart Attack: Low risk I have no recommendations Clogging of the Arteries: Low risk I have no recommendations Diabetes: Low Risk I have no recommendations Secondary Prevention/Interven tion (detects treatable diseases before they may cause symptoms, disability, or ) Prostate Cancer Screening: No digital rectal exam screening necessary Colon Cancer Screening: Colonoscopy No screening necessary Date Screening Last Performed: 2022 Eye Disease Screening: No Eye exam necessary Dementia Risk: Low I have no recommendations Depression Screening: Negative [email or web address] Not available 03/05/2024 14:39:26 Reason for Referral Neurologist Referral for Hea dache headaches Please call patient to schedule an appointment. Thank you. Referring Physician: Family Ron Medicine, Encounter Date: 03/05/2024 Neurologist Referral for Hea dache recurrent headaches Please call patient to schedule an appointment. Thank you. Referring Physician: Family Haritha Velasquez, Encounter Date: 06/02/2024 Results Created Date Observation Date Name Description Value Unit Range Abnormal Flag Note LastModifiedBy Organization Detail LastModifiedTime 07/19/2007/18/2023 XR, chest No observ ation record ed. [email or web address] [address], [address], 07/23/2023 09:44:09 08/26/20 23 08/26/2023 XR, hip, unila teral , 2 or 3 view No observ ation record ed. [address] [place], [address], 09/19/2023 16:59:52 09/02/20 23 09/02/2023 XR, lumba r spine No observ ation record ed. [email or web address] [place], [address], 09/19/2023 16:59:52 10/24/19 24 10/24/2023 XR, chest No observ ation record ed. [email or web address] [address], [address], 10/30/2023 09:19:04 10/29/19 24 10/29/2023 XR, chest No observ ation record ed. [address], [address], 10/30/2023 09:20:04 02/11/20 24 02/11/2024 XR, chest , 2 view No observ ation record ed. [address], [address], 02/18/2024 09:41:31 02/19/20 24 02/19/2024 LDCT, chest , for lung cance r screlori irving No observ ation record ed. [email or web address] [place] [address], [place], [address], 03/23/2024 16:47:33 03/24/20 24 03/24/2024 XR, chest , 1 view No observ ation record ed. [email or web address] [address], [place], [address], 04/01/2024 09:41:11 08/25/20 24 08/25/2024 MRI, brain + brain stem, w/o contr ast No observ ation record ed. [email or web address] [address], [place], [address], 08/26/2024 13:59:16 09/06/20 24 09/05/2024 XR, chest , 2 view No observ ation record ed. [email or web address] [address], [place], [address], 09/07/2024 09:58:54 Result Notes None recorded. Problems Name Problem SNOMED Code Status Onset Date Resolution Date Notes Provider Name and Address Organization Details Recorded Time Chronic obstructiv e pulmonary disease 56633777 Active Not Available [facility] 3 18:04:39 Acute exacerbati on of chronic obstructiv e pulmonary disease 737518229 Active 2016 Not Available [facility] 3 18:04:39 Benign prostatic hyperplasi a 232087787 Active 2016 Not Available [facility] 3 18:04:39 Severe chronic obstructiv e pulmonary disease 517790033 Active 2018 Not Available [facility] 3 18:04:39 Chronic respirator y failure 88614249 Active 2018 Not Available [facility] 3 18:04:39 Ingrowing toenail 070212916 Active 2021 Not Available [facility] 3 18:04:39 Foot pain 87376507 Active 2021 Not Available [facility] 3 18:04:39 Tobacco dependence syndrome 05664359 Active Not Available [facility] 3 18:04:39 Seasonal allergy 068679654 Active 2022 RAY Leal [address], [place], [address] , [place] [facility] 3 10:55:26 Chronic cough 18292772 Active 2022 RAY Leal [address], [address], [place], [address] , [place] [facility] 3 10:56:49 Pain of right knee joint 2726264951446 00 Active 2022 RAY Leal [address], [address], [place], [address] , [place] [facility] 3 11:01:39 Gastroesop hageal reflux disease 676090193 Active 2022 RAY Leal [address], [address], [place], [address] , [place] [facility] 3 11:04:34 Lower abdominal pain 92932237 Active 2022 RAY Leal [address], [address], [place], [address] , [place] [facility] 3 10:57:20 Anxiety 87823168 Active 2022 Jolynn quintana, [place] [facility] 3 09:41:00 Arthritis 3961617 Active 2022 Jolynn quintana, [place] [facility] 3 09:41:08 Disorder of eye 501599598 Active 2022 Jolynn quintana, [place] [facility] 3 09:41:15 Headache 49198469 Active 2022 Jolynn quintana, [facility] 3 09:41:22 Heartburn 84798257 Active 2022 Jolynn Luxd mariano, [facility] 3 09:41:29 Disorder of lung 82921323 Active 2022 Jolynn Epperson mariano, [facility] 3 09:41:38 Ingrowing nail of toe of right foot 8608143355054 9102 Active 2022 Mata Lugo DPM [address], [address], [place], [address] , [facility] 3 10:57:35 Pain in right hip joint 3354641542551 02 Active 2022 NORY Velasquez-C [address], [address], [place], [address] , [facility] 3 16:05:21 Low back pain 860969073 Active 2022 NORY Velasquez-Katheryn [address], [address], [place], [address] , [facility] 3 14:31:44 Hyperthyro idism 20682555 Active 2023 NORY Velasquez-C [address], [place], [address] , [facility] 4 10:06:09 Notes:PULMONARY DISEASE, USE OF NSAIDS Problem Notes None recorded. Procedures Surgical History Date Name Laterality Status Provider Name and Address Organization Details Recorded Time 03/05/20 Medicare Wellness CPT Code, subsequent completed Hortencia Gallagher RN [facility] 03/05/2024 09:30:38 06/06/20 Nail Debridement completed Mata Lugo DPM [address], [place], [address], [facility] 06/06/2023 10:57:28 02/27/20 Medicare Wellness CPT Code, Initial completed RAY Leal [address], [facility] [address], [place], [address], [place] [facility] 02/26/2023 12:38:15 Unlisted procedure nose completed Not Available [facility] 12/12/2022 18:04:04 Imaging Results Imaging Date Name Status LastModified by Organiz [facility] Details LastModified Time 07/18/2023 XR, chest completed [email or web address] [address], [address], 07/23/2023 09:44:09 08/26/2023 XR, hip, unilateral, 2 or 3 view completed [address] [place], [address], 09/19/2023 16:59:52 09/02/2023 XR, lumbar spine completed [address] [place], [address], 09/19/2023 16:59:52 10/24/2023 XR, chest completed [email or web address] [address], [address], 10/30/2023 09:19:04 10/29/2023 XR, chest completed [email or web address] [address], [address], 10/30/2023 09:20:04 02/11/2024 XR, chest, 2 view completed [address], [address], 02/18/2024 09:41:31 02/19/2024 LDCT, chest, for lung cancer screening completed [email or web address] [address], [address], 03/23/2024 16:47:33 03/24/2024 XR, chest, 1 view completed [address], [address], 04/01/2024 09:41:11 08/25/2024 MRI, brain + brain stem, w/o contrast completed [email or web address] [facility] [address] [facility] [address], [place], [address], 08/26/2024 13:59:16 09/05/2024 XR, chest, 2 view completed [email or web address] [facility] [address] [facility] [address], [place], [address], 09/07/2024 09:58:54 Procedure Notes None recorded. Medical Equipment None Reported. Allergies Allergen ID Allergen Name Allergen Category Reaction Reaction Severity Criticality Documentation Date Start Date Code Code System Note Provider Name and Address Organization Details Recorded Time 62795 oxycodone medicatio n Not available Not available Not available 12/12/2022 7804 RxNorm Not Available [facility] 18:05:39 Medications Name Sig Start Date Stop Date Status Note LastModified by Organization Details LastModified Time cyclobenz aprine 10 mg tablet 07/10 completed Not Available Not Available Not Available latanopro st 0.005 % eye drops INSTILL 1 DROP INTO BOTH EYES AT BEDTIME DIRECTED active Not Available Not Available No t Available buspirone 5 mg tablet TAKE 1 TABLET BY MOUTH EVERY DAY active Not Available Not Available No t Available promethaz ine-DM 6.25 mg-15 mg/5 mL oral syrup TAKE 5ML'S BY MOUTH EVERY 6 HOURS NEEDED FOR [...] TAKE 1 TABLET DAILY FOR 4 DAYS 11/03 completed Not Available Not Available Not Available ibuprofen 800 mg tablet TK 1 [...] oral route as directed for 5 days. 11/03 completed Not Available Not Available Not Available prednison e 5 mg tablet TAKE ONE TABLET DAILY DIRECTED FOR 30 DAYS active Not Available Not Available No t Available ciproflox acin 500 mg tablet 01/09 completed Not Available Not Available Not Available tramadol 50 mg tablet TK 1 T PO Q 8 H PRF BACK PAIN 07/10 completed Not Available Not Available Not Available amoxicill in 500 mg tablet active Not Available Not Available Not Available acyclovir [...] completed Not Available Not Available Not Available lorazepam 0.5 mg tablet Take 1 tablet 3 times a day by oral route as needed. active Not Available Not Available No t Available oxycodone -acetamin ophen 10 mg-325 mg [...] Not Available prednison e 50 mg tablet 11/03 completed Not Available Not Available Not Available [...] 1 T PO Q 12 H TAT 11/03 completed Not Available Not Available Not Available Ventolin HFA 90 mcg/actua tion aerosol [...] TABLET BY MOUTH ON MONDAYS, , AND FRIDAYS active Not Available Not Available No t [...] completed Not Available Not Available Not Available Breo Ellipta 100 mcg-25 mcg/dose powder for inhalatio n active Not Available Not Available Not Available [...] Updated DateTime 3 175.26 cm 32.5 kg/m2 02430.3 2 g 98.7 [degF] 84 /min 92 % 92 % 133 mm[Hg] 86 mm[Hg] Kinsey Prieto MA [facility] [employer] 3 08:57:12 Date Recorded Body height Body mass index (BMI) Body weight Heart rate Respiratory rate Oxygen saturation Oxygen saturation in Arterial blood by Pulse oximetry Systolic blood pressure Diastolic blood pressure Provider Name and Address Organization Details Last Updated DateTime 3 175.26 cm 32.5 kg/m2 24443.3 2 g 109 /min 18 /min 95 % 95 % 109 mm[Hg] 63 mm[Hg] Angélica Antony [facility] [employer] 3 11:44:21 Date Recorded Body height Body mass index (BMI) Body weight Body temperature Oxygen saturation Oxygen saturation in Arterial blood by Pulse oximetry Inhaled oxygen flow rate Heart rate Systolic blood pressure Diastolic blood pressure Provider Name and Address Organization Details Last Updated DateTime 4 175.26 cm 34.6 kg/m2 312111. 61 g 97.6 [degF] 92 % 92 % 3 L/min 102 /min 142 mm[Hg] 88 mm[Hg] Sherita Rosas RN [facility] [employer] 4 14:27:39 Date Recorded Body height Body mass index (BMI) Body weight Body temperature Oxygen saturation Oxygen saturation in Arterial blood by Pulse oximetry Inhaled oxygen flow rate Heart rate Systolic blood pressure Diastolic blood pressure Provider Name and Address Organization Details Last Updated DateTime 4 175.26 cm 35.1 kg/m2 937310. 98 g 100 [degF] 93 % 93 % 3 L/min 89 /min 130 mm[Hg] 70 mm[Hg] Sherita Rosas RN [facility] [employer] [employer] 4 09:55:40 Date Recorded Body height Body temperature Heart rate Oxygen saturation Oxygen saturation in Arterial blood by Pulse oximetry Systolic blood pressure Diastolic blood pressure Provider Name and Address Organization Details Last Updated DateTime 5 175.26 cm 98 [degF] 100 /min 97 % 97 % 138 mm[Hg] 82 mm[Hg] Willian Lerma RN [facility] [employer] 5 15:28:02 Social History Question Answer Notes LastModified by Organizat ion Details LastModified Time Tobacco Smoking Status Former Smoker Not Available [facility] 12/12/2022 18:04:03 What Is Your Level Of Alcohol Consumption? Occasional [id number] Information not available 12/12/2022 What Is Your Level Of Caffeine Consumption? None [email or web address] Information not available 01/09/2023 In The 14 Days Before Symptom Onset, Have You Had Close Contact With A Laboratory-confir med COVID-19 While That Case Was Ill? No [id number] Information not available 12/12/2022 In The 14 Days Before Symptom Onset, Have You Had Close Contact With A Person Who Is Under Investigation For COVID-19 While That Person Was Ill? No [id number] Information not available 12/12/2022 What Type Of Diet Are You Following? REGULAR Information not available 01/09/2023 What Is Your Occupation? Disability [id number] Information not available 12/12/2022 When Did You Quit Smoking? 1-5yearssincel astcigarette [id number] Information not available 12/12/2022 Do You Use Any Illicit Or Recreational Drugs? No Information not available 01/09/2023 Has Tobacco Cessation Counseling Been Provided? No [id number] Information not available 12/12/2022 Have You Recently Traveled Abroad? No [id number] Information not available 12/12/2022 Do You Have Any Dietary Restrictions? No [email or web address] Information not available 01/09/2023 Do You Or Have You Ever Used Any Other Forms Of Tobacco Or Nicotine? No MIGRATION.[id number] 9660 Information not available 12/12/2022 Sex: Unknown Functional Status Question Answer Note LastModified by Organization D etails LastModified Time What is your exercise level? Heavy [email or web address] Information not available 01/09/2023 Mental Status None recorded. Family History Relationship Description Onset Age of this Age Resolved Age Notes LastModified by Organization Details LastModified Time Sister Diabetes mellitus [id number] Not available 12/12/2022 18:04:04 Sister Cerebrovascu lar accident [id number].893 [id number] Not available 12/12/2022 18:04:04 Sister Hypertensive disorder [id number] Not available 12/12/2022 18:04:04 Mother Diabetes mellitus [id number].540 [id number] Not available 12/12/2022 18:04:04 Brother Cerebrovascu lar accident MIGRATION.829 [id number] Not available 12/12/2022 18:04:04 Brother Malignant neoplastic disease MIGRATION.040 [id number] Not available 12/12/2022 18:04:04 Father Heart disease MIGRATION.787 [id number] Not available 12/12/2022 18:04:04 Father Malignant neoplastic disease [id number].680 [id number] Not available 12/12/2022 18:04:04 Mother Cerebrovascu lar accident [email or web address] Not available 09:49:05 Mother Hypertensive disorder [email or web address] Not available 2022 09:49:24 Sister Arthritis [email or web address] Not available 06/06/2023 09:49:15 Brother Family history of malignant neoplasm [email or web address] Not available 2022 09:49:42 Father Family history of malignant neoplasm [email or web address] Not available 2022 09:49:42 Medical History Condition Response ARTHRITIS Y HEADACHES/MIGRAINES Y ANXIETY DISORDER Y PULMONARY DISEASE Y ALLERGIES/HAYFEVER Y USE OF NSAIDS Y LUNG DISEASE/DISORDER Y BACK / NECK PROBLEMS Y HEARTBURN / REFLUX Y Immunizations Vaccine Type Date Status Note Provider Nam e and Address Organization Details Recorded Time Influenza, split virus, trivalent, preservative 8 completed Not Available On [facility] of [facility] 12/12/2022 18:05:38 Influenza, split virus, quadrivalent, PF 9 completed Not Available [facility] 12/12/2022 18:05:38 Influenza, split virus, quadrivalent, PF 8 completed Not Available [facility] 12/12/2022 18:05:38 Tdap 3 completed RAY Leal [address] [place] [address], [address], [facility] [employer] 02/26/2023 13:00:04 Past Encounters Encounter ID Performer Location Encounter Start Date Encounter Closed Date Diagnosis/Indication Diagnosis SNOMED-CT Code Diagnosis ICD10 Code Diagnosis Note [id number] [facility] [place] [address] [place] [address] 06/14/2022 00:00:00 06/19/2022 11:50:24 [id number] [facility] [place] [address] [place] [address] 07/09/2022 00:00:00 07/09/2022 13:46:46 [id number] RAY Leal [facility] [place] [facility] [address] [facility] [facility] [address] [place] [address] 01/09/2023 09:54:34 01/09/2023 11:15:00 Chronic obstructive pulmonary disease 40480009 J44.9 Establishe bryan with pulmonolog ist.He is on 3L of oxygen regularly, he states he does not leave it on though all the time. In warmer weather and sitting still he is usually okay without it. O2 sat 94% today without his O2 on.Current ly on prednisone 10mg daily, roflumilas t 500mcg daily, albuterol inhaler/so lution PRN. Seasonal allergy 9329236 04 J30.2 Chronic cough 41722248 R 05.3 Always exacerbate d when he comes down with any infection. Will use cough medication PRN. Pain of ri ght knee joint 7462940265 36510 M25.561 Followed by pain management who prescribes hydrocodon e. Gastroesop hageal reflux disease 172455435 K21.9 [id number] RAY Leal [facility] [place] [address] [place] [address] 02/26/2023 10:25:25 02/26/2023 11:43:04 Adult health examination 817382480 Z00.[address] Ibarra (cardiolog y) 2 weeks ago and ER last week. Will get copies. Covid vaccines- up to date on boostersFl u vaccine- recommende d each fallTetanu s vaccine- will update todayShing les vaccine- up to date Colonoscop y- 2021, wnl Recommende d routine eye exams and dental cleanings. Administra tion of diphtheria, pertussis, and tetanus vaccine 275661809 Z23 Chronic ob structive pulmonary disease 09867914 J44.9 Stable overall. Continue follow-up with pulmonolog y. 01/09/23: Establishe d with pulmonolog ist.He is on 3L of oxygen regularly, he states he does not leave it on though all the time. In warmer weather and sitting still he is usually okay without it. O2 sat 94% today without his O2 on.Current ly on prednisone 10mg daily, roflumilas t 500mcg daily, albuterol inhaler/so lution PRN. Ingrowing toenail 945940 009 L60.0 Screening for disorder 946658623 Z13.9 [id number] RAY Leal [facility] Primary Care [facility] [address] [place] [address] 03/19/2023 10:15:08 03/19/2023 12:42:51 Lower abdominal pain 42198750 R10.30 No pain on exam today. Pain is non-specif ic, will travel from one side to the other. No associated GI symptoms. Discussed red flag symptoms and ER precaution s, pt. expresses understand ing. Will continue to monitor symptoms. [id number] Mata Lugo DPM [facility] Podiatry Amelie Wright [address] [place] [address] 06/06/2023 09:24:40 06/06/2023 11:23:54 Ingrowing nail of toe of right foot 2046823726 5457083 L60.0 great toe medial cornerslan t back procedure performedF ollow-up as needed if becomes problemati c may require partial matrixecto my [id number] RAY Leal [facility] [address] [facility] [address] [place] [address] 08/12/2023 08:29:41 08/12/2023 09:38:22 Chronic obstructive pulmonary disease 53858361 J44.9 Stable overall. Continue follow-up with pulmonolog y. He is not needing O2 while in the office today.He did receive flu, covid and pneumonia vaccines. 01/09/23: Establishe d with pulmonolog ist.He is on 3L of oxygen regularly, he states he does not leave it on though all the time. In warmer weather and sitting still he is usually okay without it. O2 sat 94% today without his O2 on.Current ly on prednisone 10mg daily, roflumilas t 500mcg daily, albuterol inhaler/so lution PRN. [id number] Mata Lugo DPM [facility] [place] [address] [place] [address] 09/17/2023 11:36:50 09/30/2023 17:32:46 [id number] GILMAR Velasquez [facility] [place] [facility] [address] [facility] [address] [place] [address] 03/05/2024 13:57:58 03/05/2024 15:12:45 Adult health examination 546816783 Z00.00 Screening for disorder 082178511 Z13.9 Diabetes m ellitus screening 907858380 Z13.1 Hyperlipid emia screening 345399701 Z13.220 Thyroid di sorder screening 329546059 Z13.29 Anemia screening 8760957 07 Z13.0 Headache 35295492 R51.9 -hx of headaches often, nose bleeds twice/week , vision disturbanc es-hx of MRI in but was unable to complete-h e would like a workup by neuro-neur ologist referral given [id number] Gumaro [address] CRIER-C [facility] Primary Care [facility] [address] [facility] [place] [address] 06/02/2024 09:44:35 06/02/2024 10:36:45 Chronic obstructive pulmonary disease 37637221 J44.9 stable. sees pulmonolog y next monthvernela carroll walking more yesterday than he has in the last couple yearsstill uses nebulizer solution BID-TID prn Hyperthyroidism 58195526 E05.90 Headache 93318117 R51.9 -hx of headaches often, nose bleeds twice/week , vision disturbanc es-hx of MRI in but was unable to complete-h e would like a workup by neuro-neur ologist referral given [id number] NORY Thomas-C [facility] Primary Care [facility] [address] [facility] [address] [place] [address] 11/03/2024 15:15:50 11/03/2024 15:57:32 Anxiety 97956390 F41.9 Will increase Lorazepam to 0.5mg TID and add Buspirone 5mg daily.Stacy ent will follow up in 1 month, sooner if needed. Chronic ob structive pulmonary disease 93265311 J44.9 oxygen dependent, going to Pulmonary rehab Saturday, Saturday and Saturday. Health Concerns Section Related Observation LastModified by Organization Detai ls LastModified Time None Recorded Concern Status LastModified by Organization Details LastModified Time None Recorded Advance Directives Directive None Recorded Payers Encounter Date Sequence Insurance Name Policy Number Policy Walls Covered Member ID Walls Member ID Guarantor Name 08/12/2023 1 [place] Bentley Mesa [id number] Bentley Mesa 08/12/2023 2 [place] WHEN MED[place]ARE OR MEDICARE REPLACEMENT PRIMARY) Bentley Mesa [id number] Bentley Mesa 09/17/2023 1 [place] Stewart Bonita [id number] Stewart Bonita 09/17/2023 2 [place] OR MEDIC[place] REPLACEMENT PRIMARY) Bentley Mesa [id number] Stewart Bonita 03/05/2024 2 [place] OR MEDIC[place] REPLACEMENT PRIMARY) Bentley Mesa [id number] Stewart Bonita 03/05/2024 1 [facility] (MEDICARE REPLACEMENT/AD VANTAGE - HMO) [id number] Bentley Mesa [id number] Stewart Bonita 06/02/2024 2 [place] WHEN [place] OR MEDICARE REPLACEMENT PRIMARY) Bentley Mesa [id number] Stewart Bonita 06/02/2024 1 [facility] (MEDICARE REPLACEMENT/AD VANTAGE - HMO) [id number] Bentley Mesa [id number] Stewart Bonita 11/03/2024 2 [place] WHEN [place] OR MEDICARE REPLACEMENT PRIMARY) Bentley Mesa [id number] Stewart Bonita 11/03/2024 1 [facility] (MEDICARE REPLACEMENT/AD VANTAGE - HMO) [id number] Bentley Mesa [id number] Bentley Mesa Notes Date Note Type Note Provider Name and Address Organization Details Recorded Time 08/12/2023 text/html Pt. here for routine follow-up. States his breathing has been doing better. He is not on any oxygen at office visit today. RAY Leal [address], [place], [address], [employer] 08/12/2023 10:04:11 03/05/2024 text/html pt is here for annual physical NORY Velasquez-Katheryn [address], [address], [place], [address], [employer] 03/05/2024 15:11:48 06/02/2024 text/html pt is here for f/u YOHANA MesaP-C [address], [place], [address], [employer] 06/02/2024 10:31:58 11/03/2024 text/html Patient is a 64 year old male that presents to the office for anxiety.Patient reports he was in the hospital 3 times in the last 2 weeks due to anxiety and COPD exacerbation. Anxiety was treated with Lorazepam 0.5mg twice daily. Patient reports the medication has helped tremendously even with his continued issues sleeping. Patient is currently taking the Lorazepam at approximately 2AM and 1PM. Patient reports he feels junk in his lungs that causes him to go into coughing fits. Patient has been taking cough syrup at night to help him sleep but it is not helping. Patient is currently going to Pulmonary Rehab on Saturday, Saturday and Saturday. Patient reports his anxiety is so bad at times that he cannot stand for clothes to be touching him.Patient denies SI/HI. NORY Thomas-Katheryn [address] [facility] [place] [address], [place], [address], [place] [facility] [employer] 11/03/2024 21:36:20
--- OUTSIDE RECORDS SUMMARY | 2024-11-27 10:25 | XMS_ITS | Clinical Summary ---
Author Organization [facility] Address [address] [place] [address] Phone Care Team Providers Care Principal Network Engineer Name Role Phone Bentley Kyle MD Primary Care Provider [phone] Medications PAIN & FEVER EXTRA STRENGTH 500 [...] 91 02/12/2019 10:02 AM CDT Temperature 36.4 C (97.6 F) 02/12/2019 10:02 AM CDT Respiratory Rate 22 02/12/2019 10:02 AM CDT Oxygen Saturation 97% 02/12/2019 10:02 AM CDT Inhaled Oxygen Concentration - - Weight - - Height - - Body Mass Index - - Plan of Treatment Health Maintenance Due Date Last Done Comments Hepatitis C Virus (HCV) Screening 1960 TdaP Immunization 1960 Colonoscopy 01/22/2005 Colorectal Cancer Screening 01/22/2005 Cologuard 01/22/2010 Immunochemical Fecal Occult Blood 01/22/2010 Pneumococcal Immunization (5 0+ years) (1 of 1 - PCV) 01/22/2010 Zoster Immunization (1 of 2) 01/22/2010 PSA Discussion 01/22/2015 Influenza Immunization (#1) 2024 SARS-COV-2 Immunization (2 - 2023- season) 2024 07/08/2021 Respiratory Syncytial Virus (RSV) Immunization (Adult) (1 - 1-dose 75+ series) 01/22/2035 Hepatitis B Immunization Aged Out No longer [...] age to complete this topic Insurance MEDICAID [place] MEDICARE Care Teams Principal Network Engineer Relationship Specialty Start Date End Date Bentley Kyle MD [address] [place] [address] PCP - General Internal Medicine 02/01/21
--- OUTSIDE RECORDS SUMMARY | 2024-11-27 10:25 | XMS_ITS | Referral Summary ---
Author Organization [facility] [address] [place] [facility] [employer] Address [address] [place] [address] Care Team Providers Care Tube Worker Name Role Phone Aristeo Khan MD Primary Care Provider [phone] Ravi Queen MD Unavailable [phone] Encounters Date Type Department Care Team Description 09/09/2024 Documentation [facility] [address] [facility] A, [address]ay. [address] [place] [address] Liudmila Espinoza RN 09/01/2024 8:37 AM CODING TECHNICIAN - 09/01/2024 11:59 PM CODING TECHNICIAN Hospital Encounter [facility] [address] [place] [address] A, [address] [place] [address] Kenney Holder MD vermin exterminator (current) use of opiate analgesic (Primary Dx); [...] 06/28/2022 Insomnia secondary to chronic pain 06/28/2022 skilled nursing (current) use of opiate analgesic 06/14 Resolved [...] on file Legal Sex Male 8:01 PM CODING TECHNICIAN Gender Identity Not on file Sexual Orientation Not on file Last Filed Vital Signs Vital Sign Reading Time Taken Comments Blood Pressure 142/82 09/01/2024 9:08 AM CODING TECHNICIAN Pulse 85 09/01/2024 9:08 AM CODING TECHNICIAN Temperature 36.9 C (98.5 F) 04/02/2024 12:40 PM CDT Respiratory Rate 22 09/01/2024 9:08 AM CODING TECHNICIAN Oxygen Saturation 95% 09/01/2024 9:08 AM CODING TECHNICIAN Inhaled Oxygen Concentration - - Weight 111.1 [...] Comments PSA SCREEN Routine 09/27/2022 10:21 AM CODING TECHNICIAN from Last 3 Months or Most Recently Relevant to Health Maintenance Results * PSA screen (09/27/2022 10:21 AM CODING TECHNICIAN) PSA-Total 0.70 <=5.40 ng/mL TALIB VILA Comment: Interpretive Data AGE SEX REFERENCE INTERVAL 0 minutes-150 years Female None 0 minutes-49 years Male None 50-59 years Male 0-3.90 60-69 years Male 0-5.40 70-79 years Male 0-6.20 80-150 years Male 0-6.20 The Marcelina PSA Total assay procedure was used. Results from different manufacturers or methods may not be comparable. Serial testing should be performed using the same method. Current interpretive data last revised 22. Blood 09/27/2022 10:2 1 AM CODING TECHNICIAN 09/27/2022 10:44 AM CODING TECHNICIAN us Aristeo Khan MD LAB BLOOD ORDERABLES Final Result Performing Organization Address City/State/[facility] Co de Phone Number TALIB JULITO [address] [facility] [place] [address] from Last 3 Months or Most Recently Relevant to Health Maintenance Insurance MEDICARE [place] MEDICARE [facility] MEDICARE SOLUTIONS [place] MED[employer]ARE [employer] Care Teams Tube Worker Relationship Specialty Start Date End Date Aristeo Khan MD [address] [place] [address] PCP - General 06/28/22 Ravi Queen MD [address] [place] [address] [address] [facility] [place] [address] Anesthesiologist Pain Management 09/05/22
--- OUTSIDE RECORDS SUMMARY | 2024-11-27 10:25 | XMS_ITS | Clinical Summary ---
Author Organization [facility] Address [address] [place] [address] Phone Care Team Providers Care Gold Charmer Name Role Phone Bentley Kyle MD Primary Care Provider [phone] Allergies Active Allergy Reactions Criticality Noted Date Comments Oxycodone Hives High 12/06/2020 Medications albuterol (PROVENTIL,VENTOL IN) 0.63 mg/3 mL Solution for Nebulization Take 0.63 mg by inhalation one time only. Active budesonide (PULMICORT RESPULE) 0.25 mg/2 mL Suspension for Nebulization Take by inhalation 2 times daily. Active HYDROcodone-aceta minophen 2.5-325 mg Tablet Take by mouth. Activ e roflumilast (DALIRESP) 500 mcg Tablet Take 1 Tablet (500 mcg) by mouth daily. 30 Tablet 5 Active tamsulosin (FLOMAX) 0.4 mg capsule Take 0.4 mg by mouth daily. Active promethazine (PHENERGAN) 12.5 mg Tablet Take 12.5 mg by mouth every 6 hours as needed for Nausea/Emesis. Active dextromethorphan- guaiFENesin (MUCINEX DM) 30-600 mg Tablet Sustained Release [...] every Saturday, Saturday, and Saturday. 30 Tablet Active Active Problems Problem Noted Date Diagnosed Date Lung nodule Centrilobular emphysema Chronic hypoxemic respiratory failure Glaucoma Chronic respiratory failure with hypoxia and hyp ercapnia Status post bronchoscopy Immunizations Immunization Administration Dates Next Due ([employer])(12 YR UP) COVID-19 VACCINE - EMERGENCY USE AUTHORIZATION, MRNA, [id number](PF) 30 MCG/0.3 ML IM SUSP 01/10/2021 Influenza Seasonal Unspecified Formulation IM Social History Tobacco Use Types Packs/Day Years Used Date Smoking Tobacco: Never Smokeless Tobacco: Never Sex and Gender Information Value Date Recorded Sex Assigned at Not on file Legal Sex Male 3:05 PM RESTAURANT ASSISTANT MANAGER Gender Identity Not on file Sexual Orientation Not on file Last Filed Vital Signs Vital Sign Reading Time Taken Comments Blood Pressure 130/80 11/21/2021 1:06 PM RESTAURANT ASSISTANT MANAGER Pulse 87 11/21/2021 1:06 PM RESTAURANT ASSISTANT MANAGER Temperature 37.2 C (98.9 F) 04/20/2021 11:16 AM CDT Respiratory Rate 18 04/20/2021 3:29 PM CDT Oxygen Saturation 91% 11/21/2021 1:06 PM RESTAURANT ASSISTANT MANAGER 3 L Inhaled Oxygen Concentration - - Weight 116.1 kg (256 lb) 11/21/2021 1:06 PM RESTAURANT ASSISTANT MANAGER Height 175.3 cm (5' 9 ) 11/21/2021 1:06 PM RESTAURANT ASSISTANT MANAGER Body Mass Index 37.8 11/21/2021 1:06 PM RESTAURANT ASSISTANT MANAGER Plan of Treatment Health Maintenance Due Date [...] (#1) 2024 08/14/2020 COVID-19 Vaccine (2 - 2023-25 season) 2024 Insurance MEDICARE PART A AND B MEDICAID [place] Advance Directives For more information, please contact: [phone] * Full Code (Latest Code Status on File) Date Activated Date Inactivated Comments 04/18/2021 12:14 PM 04/20/2021 6:57 PM Care Teams Gold Charmer Relationship Specialty Start Date End Date Bentley Kyle MD [address] [place] [id number] PCP - General Internal Medicine 04/18/21
--- OUTSIDE RECORDS SUMMARY | 2024-11-27 10:25 | XMS_ITS | Clinical Summary ---
Author Organization [facility] Address [address] [place] [address] Care Team Providers Care 3D Technologist Name Role Phone Aristeo Khan MD Primary Care Provider Ravi Queen MD Unavailable [phone] Allergies Active Allergy Reactions Criticality Noted Date [...] 06/28/2022 Insomnia secondary to chronic pain 06/28/2022 assisted (current) use of opiate analgesic 06/14 Resolved Problems Problem Noted Date Diagnosed Date Resolved Date Chronic pain of right knee 06/28/2022 0 11/13/2023 Encounters Date Type Department Care Team Description 09/09/2024 Documentation [facility] [address] [place] [address] A, [address] [place] [address] Liudmila Espinoza RN 09/01/2024 8:37 AM DEPUTY BAILIFF - 09/01/2024 11:59 PM DEPUTY BAILIFF Hospital Encounter [facility] [address] [place], [place] [address]dg A, [address] [place] [address] Kenney Holder MD assisted (current) use of opiate analgesic (Primary Dx); [...] on file Legal Sex Male 8:01 PM DEPUTY BAILIFF Gender Identity Not on file Sexual Orientation Not on file Obstetrics History Last Filed Vital Signs Vital Sign Reading Time Taken Comments Blood Pressure 142/82 09/01/2024 9:08 AM DEPUTY BAILIFF Pulse 85 09/01/2024 9:08 AM DEPUTY BAILIFF Temperature 36.9 C (98.5 F) 04/02/2024 12:40 PM CDT Respiratory Rate 22 09/01/2024 9:08 AM DEPUTY BAILIFF Oxygen Saturation 95% 09/01/2024 9:08 AM DEPUTY BAILIFF Inhaled Oxygen Concentration - - Weight 111.1 [...] Comments PSA SCREEN Routine 09/27/2022 10:21 AM DEPUTY BAILIFF from Last 3 Months or Most Recently Relevant to Health Maintenance Results * PSA screen (09/27/2022 10:21 AM DEPUTY BAILIFF) PSA-Total 0.70 <=5.40 ng/mL TALIB VILA Comment: [...] revised 22. Blood 09/27/2022 10:2 1 AM DEPUTY BAILIFF 09/27/2022 10:44 AM DEPUTY BAILIFF Aristeo Khan MD LAB BLOOD ORDERABLES Final Result TALIB [address] [facility] Department [place] [address] from Last 3 Months or Most Recently Relevant to Health Maintenance Insurance MEDICARE [facility] MEDICARE [facility] PLAN [place] MEDICARE [employer] MEDICARE Address: [address] [address] [place] [address] [employer] MEDICARE [employer] Care Teams 3D Technologist Relationship Specialty Start Date End Date Aristeo Khan MD [address] [place] [address] PCP - General 06/28/22 Ravi Queen MD [address] [place] [address] [address] [place] [id number] Anesthesiologist Pain Management 09/05/22
--- OUTSIDE RECORDS SUMMARY | 2024-11-27 10:25 | XMS_ITS | Data Portability ---
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 Plan of Treatment Reminders Order Date Submit Date Provider Last Modified By Organization Details Last Modified Time Details Appointments None recorded. Lab hemoglobin + hematocrit , blood 2019 [facility], [address] [place] [address], [address], [place], [address], 0 11:29:35 hemoglobin + hematocrit , blood 2019 020 [facility], [address], [place], [address], 0 11:29:43 Referral None recorded. Procedures None recorded. Surgeries None recorded. Imaging None recorded. Medication Orders tamsulosin 0.4 mg capsule 2019 020 INTERFACE Not available 0 11:29:16 promethazi ne-DM 6.25 mg-15 mg/5 mL oral syrup 2019 020 INTERFACE Not available 0 11:20:00 Patient TargetsNo targets recorded. Patient Instructions Encounter Date Encounter Id Patient Instructions Last Modified By Organization Details Last Modified Time 06/17/2020 [id number] ER (Refused) Discharge summary STAT labs at [facility] Follow up with GI (today) Follow up with the technical administrative assistant Follow up in 1-2 weeks gris Not available 06/17/2020 11:23:00 He has refused a n ER evaluation, Me, myself, I feel good gris Not available 06/17/2020 11:22:28 07/15/2020 [id number] Discharge summar y and lab results from MATHEW landry Not available 07/15/2020 11:35:23 Reason for Referral None Reported. Results Created Date Observation Date Name Description Value Unit Range Abnormal Flag Note LastModifiedBy Organization Detail LastModifiedTime 11/11/19 20 11/11/2019 XR, knee, 3 view No observ ation record ed. [facility] (Imaging) [address] [place], [address], 11/18/2019 10:38:18 12/07/19 20 12/07/2019 LDCT, chest , for lung cance r scree kevin No observ ation record ed. [address] (Imaging) [address] [place], [address], 12/15/2019 14:52:56 06/02/20 20 06/01/2020 XR, chest No observ ation record ed. [facility] (Imaging) [address] [place], [address], 06/17/2020 11:17:19 06/02/20 20 06/02/2020 CT, neck, soft tissu e, w/wo contr ast No observ ation record ed. [facility] (Imaging) [address] [place], [address], 06/17/2020 11:17:19 06/02/20 20 06/02/2020 CT, neck, soft tissu e, w/o contr ast No observ ation record ed. [facility] [address], [place], [address], 06/17/2020 11:17:19 06/03/20 20 06/03/2020 opal martinez ow study No observ ation record ed. [facility] (Imaging) [address] [place], [address], 06/17/2020 11:17:19 06/03/20 20 06/03/2020 XR, chest No observ ation record ed. [facility] (Imaging) [address] [place], [address], 06/17/2020 11:17:19 06/05/20 20 06/05/2020 CT, chest , w/o contr ast No observ ation record ed. [facility] (Imaging) [address] [place], [address], 06/17/2020 11:17:19 Result Notes None recorded. Problems Name Problem SNOMED Code Status Onset Date Resolution Date Notes Provider Name and Address Organization Details Recorded Time Allergic rhinitis 69439126 Active 2017 Katlyn Barrett MD Attn: Accountin g,[address] [facility], [place], [address], [place] [facility] 0 11:06:48 Abnormal weight gain 870835338 Active 2018 Katlyn Barrett MD Attn: Accountin g,[address] [facility], [place], [address], [place] [facility] 0 11:06:48 Heartburn 16515602 Active Katlyn Barrett MD Attn: Accountin g,[address] [facility], [place], [address], [place] [facility] 0 11:06:48 Impotence Active Katlyn Barrett MD Attn: Accountin g,[address] [facility], [place], [address], [place] [facility] 0 11:06:48 Cough 33024429 Active Katlyn Barrett MD Attn: Accountin g,[address] [facility], [place], [address], [place] [facility] 0 11:06:48 Chronic lung disease 614526433 Active Katlyn Barrett MD Attn: Accountin g,[address] [facility], [place], [place], [address] [place] [address] 2, [place] [facility] 0 11:06:48 Knee pain Active Katlyn Barrett MD Attn: Accountin g,[address] [facility], [place], [place], [address] [place] [address] 2, [place] [facility] 0 11:06:48 Chondroma lacia of patella 33023230 Active Katlyn Barrett MD Attn: Accountin g,[address] [facility], [place], [place], [address] [place] [address] 2, [place] [facility] 0 11:06:48 Osteoarth ritis of knee 430644100 Active Katlyn Barrett MD Attn: Accountin g,[address] [place], [place], [address] [place] [address] 2, [place] [facility] 0 11:06:48 Joint pain 55531522 Active Katlyn Barrett MD Attn: Accountin g,[address] [place], [address] [place] [address] 2, [place] [facility] 0 11:06:48 Muscle pain 58442263 Active Katlyn Barrett MD Attn: Accountin g,[address] [place], [address] [place] [address] 2, [place] [facility] 0 11:06:48 Chronic obstructi ve pulmonary disease 80039592 Active Elaine Jain MD Attn: Accountin g,[address] [place], [address] [place] [address] 2, [place] [facility] 6 14:54:50 Tobacco user 618899802 Active Katlyn Barrett MD Attn: Accountin g,[address] [place], [address] [place] [address] 2, [place] [facility] 0 11:06:48 Low back pain 522559811 Active Katlyn Barrett MD Attn: Accountin g,[address] [place], [address] [place] [address] 2, [place] [facility] 0 11:06:48 Paresthes ia 55623897 Active Katlyn Barrett MD Attn: Nela ye,[address] [facility], [place], [address], [place] [facility] 0 11:06:48 Structura l and functiona l abnormali ties of the kidney Completed 01/19/2020 Elaine Jain MD Attn: Nela ye,[address] [facility], [place], [address], [place] [facility] 0 10:39:12 Kidney lesion 595360089240 00 Completed 01/19/2020 Elaine Jain MD Attn: Nela ye,[address] [facility], [place], [address], [place] [facility] 0 10:39:00 Disorder of skin and/or subcutane ous tissue 98000478 Active Katlyn Barrett MD Attn: Nela ye,[address] [facility], [place], [address], [place] [facility] 0 11:06:48 Simple renal cyst 73969748 Active Katlyn Barrett MD Attn: Nela ye,[address] [facility], [place], [address], [place] [facility] 0 11:06:48 Mass of subcutane ous tissue of back 449628475402 103 Active 2015 Katlyn Barrett MD Attn: Nela ye,[address] [facility], [place], [address], [place] [facility] 0 11:06:48 Lower urinary tract symptoms due to benign prostatic hypertrop hy 652381903398 01 Active 2016 Katlyn Barrett MD Attn: Chadjose e ye,[address] [facility], [place], [address], [place] [facility] 0 11:06:48 Constipat ion 89036123 Active 2016 Katlyn Barrett MD Attn: Nela ye,[address] [facility], [place], [address], [place] [facility] 0 11:06:48 Problem Notes None recorded. Procedures Surgical History Date Name Laterality Status Provider Name and Address Organization Details Recorded Time 5 Joint Injection completed Ramy Yarbrough [place] - [facility] 05/23/2015 15:07:30 Imaging Results Imaging Date Name Status LastModified by Organiz ation Details LastModified Time 11/11/2019 XR, knee, 3 view completed [facility] (Imaging) [address] [place], [address], 11/18/2019 10:38:18 12/07/2019 LDCT, chest, for lung cancer screening completed [address] (Imaging) [address] [place], [address], 12/15/2019 14:52:56 06/01/2020 XR, chest completed [facility] (Imaging) [address] [place], [address], 06/17/2020 11:17:19 06/02/2020 CT, neck, soft tissue, w/wo contrast completed [facility] (Imaging) [address] [place], [address], 06/17/2020 11:17:19 06/02/2020 CT, neck, soft tissue, w/o contrast completed [facility] [address], [place], [address], 06/17/2020 11:17:19 06/03/2020 barium swallow study completed [facility] (Imaging) [address] [place], [address], 06/17/2020 11:17:19 06/03/2020 XR, chest completed [facility] (Imaging) [address] [place], [address], 06/17/2020 11:17:19 06/05/2020 CT, chest, w/o contrast completed [facility] (Imaging) [address] [place], [address], 06/17/2020 11:17:19 Procedure Notes None recorded. Medical Equipment None Reported. Allergies Allergen ID Allergen Name Allergen Category Reaction Reaction Severity Criticality Documentation Date Start Date Code Code System Note Provider Name and Address Organization Details Recorded Time 64678 oxycodone medicatio n itching moderate Not available 12/02/2015 3891 RxNorm Not Available Not Available Not Available Medications Name Sig Start Date Stop Date [...] Updated DateTime 9 175.26 cm 37.5 kg/m2 863074. 46 g 98.1 [degF] 94 % 94 % 84 /min 122 mm[Hg] 84 mm[Hg] Emilia Hebert [place] [facility] 9 10:50:24 Date Recorded Body height Provider Name an d Address Organization Details Last Updated DateTime 01/19/2020 175.26 cm Emilia Hebert MA [facility] 0 09:40:18 Date Recorded Body height Provider Name an d Address Organization Details Last Updated DateTime 05/19/2020 175.26 cm Emilia Hebert MA [facility] 0 09:47:41 Date Recorded Body height Provider Name an d Address Organization Details Last Updated DateTime 06/17/2020 175.26 cm Lalita Buckner MA [facility] 06/17/20 20 10:01:54 Date Recorded Body height Provider Name an d Address Organization Details Last Updated DateTime 07/15/2020 175.26 cm Jenna Molina MA [facility] 020 10:52:41 Social History Question Answer Notes LastModified by Organizat ion Details LastModified Time Tobacco Smoking Status Former Smoker Quit 12/24/2018 Emilia Hebert MA null, [facility] 04/30/2019 10:31:18 What Is Your Level Of [...] available 2015 11:11:55 Medical History Condition Response Acid Reflux (GERD) Y COPD Y Allergies Y Past Encounters Encounter ID Performer Location Encounter Start Date Encounter Closed Date Diagnosis/Indication Diagnosis SNOMED-CT Code Diagnosis ICD10 Code Diagnosis Note [id number] [facility] (Adult Med) [address] [place] [address] 09/27/2014 15:04:00 09/27/2014 17:04:25 Chronic obstructive pulmonary disease 32989456 Tobacco user 249011929 Low back pain 345269021 Joint pain 60769474 Paresthesia 23349364 [id number] [facility] (Adult Med) [address] [place] [address] 01/04/2015 14:16:36 01/04/2015 16:04:41 Chronic obstructive pulmonary disease 61525518 Heartburn 32414261 Joint pain 12182720 Impotence 409553297 [id number] Elaine Jain MD [facility] (Adult Med) [address] [place] [address] 02/03/2015 13:56:33 02/03/2015 14:30:34 Joint pain 70365411 Chronic ob structive pulmonary disease 19364832 Low back pain 039194077 [id number] Elaine Jain MD [facility] (Adult Med) [address] [place] [address] 02/14/2015 10:05:33 02/14/2015 15:25:14 Cough 25346815 Tobacco user 450220247 Chronic lung disease 172798860 [id number] Elaine Jain MD [facility] (Adult Med) [address] [place] [address] 0 04/19/2015 12:53:17 04/20/2015 10:06:04 Chronic lung disease 506312229 Low back pain 375485025 Tobacco user 156460556 Heartburn 29538096 [id number] [facility] (Adult Med) [address] [place] [address] 05/17/2015 16:01:13 05/19/2015 11:34:27 Knee pain 13151693 Chronic ob structive pulmonary disease 19587030 Paresthesia 62962833 [id number] Elaine Jain MD [facility] [address] [address] 05/23/2015 14:26:20 05/24/2015 14:55:47 Chondromalacia of patella 57016569 Knee pain 45378656 Osteoarthr itis of knee 372834803 [id number] [facility] [address] [address] 06/30/2015 09:28:33 06/30/2015 15:13:52 [id number] Juaquin Gaspra MD [facility] [address] [address] 08/08/2015 09:05:11 08/08/2015 17:10:25 Knee pain 04339641 M25.561 Osteoarthr itis of knee 503148365 M17.11 Chondromal acia of patella 49227501 M22.41 [id number] [facility] (Adult Med) [address] [place] [address] 08/18/2015 14:02:14 08/18/2015 18:09:16 Low back pain 068700375 M54.5 Osteoarthr itis of knee 881367400 M17.9 [id number] Juaquin Gaspar MD [facility] [address] [address] 12/02/2015 10:57:53 12/02/2015 13:22:24 Knee pain 46340639 M25.561 Osteoarthr itis of knee 464889369 M17.11 Chondromal acia of patella 86929083 M22.41 [id number] Mikala Montez is [facility] (Adult Med) [address] [place] [address] 01/10/2016 14:32:02 01/10/2016 18:23:06 Chondromalacia of patella 25870451 M22.41 Chronic ob structive pulmonary disease 18383281 J44.9 Knee pain 50261809 M25.5 61 Adult heal th examination 847707318 Z00.01 Screening for malignant neoplasm of colon 342571530 Z12.11 [id number] Eliane Jain MD [facility] (Adult Med) [address] [place] [address] 04/24/2016 14:38:44 04/24/2016 16:44:15 Chronic obstructive pulmonary disease 64094723 J44.9 Cough 61425486 R05 Knee pain 29884120 M25.5 61 Kidney lesion 8345216833 9100 N28.9 Disorder o f skin and/or subcutaneous tissue 49736890 L98.9 Left shoulder region. Will observe at present [id number] Zahra Devine [facility] (Adult Med) [address] [place] [address] 06/05/2016 13:20:16 06/05/2016 18:11:10 Simple renal cyst 40757485 N28.1 Chronic ob structive pulmonary disease 52961461 J44.9 Joint pain 48661591 M25. 50 Osteoarthr itis of knee 205946108 M17.9 [id number] [facility] [address] [place] [address] 10/04/2016 13:14:32 10/04/2016 15:06:14 Chronic obstructive pulmonary disease 04634275 J44.9 Tobacco user 855905501 Z 72.0 Cough 26425643 R05 [id number] MD [facility] (Adult Med) [address] [place] [address] 0 11/14/2016 15:26:51 11/14/2016 17:50:37 Chronic obstructive pulmonary disease 17492006 J44.9 Osteoarthr itis of knee 956986910 M17.9 Low back pain 829694130 M54.5 [id number] MD [facility] (Adult Med) [address] [place] [address] 0 01/17/2017 13:02:09 01/17/2017 14:50:29 Chronic obstructive pulmonary disease 68716109 J44.9 Osteoarthr itis of knee 117590690 M17.9 Low back pain 619345077 M54.5 Chondromal acia of patella 22339126 M22.41 Cough 23264634 R05 [id number] [facility] [address] [place] [address] 04/03/2017 14:05:39 04/17/2017 12:08:04 Chronic obstructive pulmonary disease 81941188 J44.9 Cough 19825486 R05 Impotence 007527639 N52. 9 Osteoarthr itis of knee 981688315 M17.9 [id number] Elaine Jain MD [facility] (Adult Med) [address] [place] [address] 0 06/27/2017 14:13:46 06/27/2017 16:18:33 Chronic obstructive pulmonary disease 55901646 J44.9 Heartburn 46246202 R12 Lower urin ayaz tract symptoms due to benign prostatic hypertrophy 3321319874 9101 N40.1 Constipation 09066643 K5 9.00 [id number] Elaine Jain MD [facility] (Adult Med) [address] [place] [address] 0 12/26/2017 14:52:39 12/26/2017 16:26:13 Chronic obstructive pulmonary disease 07114222 J44.9 Lower urin ayaz tract symptoms due to benign prostatic hypertrophy 8560692448 9101 N40.1 Heartburn 98911211 R12 Allergic rhinitis 685548 04 J30.9 [id number] Elaine Jain MD [facility] (Adult Med) [address] [place] [address] 0 05/13/2018 10:58:42 05/13/2018 12:48:47 Chronic lung disease 760035792 J98.4 Chondromal acia of patella 32113602 M22.41 Chronic ob structive pulmonary disease 65924177 J44.9 Lower urin ayaz tract symptoms due to benign prostatic hypertrophy 5163395456 9101 N40.1 Heartburn 61037102 R12 Osteoarthr itis of knee 551356776 M17.9 [id number] Elaine Jain MD [facility] (Adult Med) [address] [place] [address] 0 09/02/2018 11:13:37 09/02/2018 13:04:53 Chronic obstructive pulmonary disease 62064464 J44.9 Osteoarthr itis of knee 398277921 M17.9 Low back pain 723277330 M54.5 Chondromal acia of patella 00137451 M22.41 Paresthesia 86451308 R20 .2 Heartburn 06871236 R12 [id number] Elaine Jain MD [facility] (Adult Med) [address] [place] [address] 0 10/29/2018 12:03:21 10/30/2018 09:23:48 Chronic obstructive pulmonary disease 45192077 J44.[address] showed new abnormalit ies. Will refer back to pulmonary. Tobacco user 813261547 Z 72.0 Computed t omography result abnormal 588197735 R93.89 [id number] Elaine Jain MD [facility] (Adult Med) [address] [place] [address] 0 12/31/2018 12:05:34 01/01/2019 12:22:50 Chronic obstructive pulmonary disease 21877494 J44.9 Osteoarthr itis of knee 857467360 M17.9 Knee pain 62170568 M25.5 61 Allergic rhinitis 352483 04 J30.9 [id number] Elaine Jain MD [facility] (Adult Med) [address] [place] [address] 0 04/30/2019 09:25:34 05/01/2019 09:51:56 Chronic obstructive pulmonary disease 41286006 J44.9 Heartburn 01334527 R12 Osteoarthr itis of knee 712920115 M17.9 Knee pain 43226478 M25.5 61 Lower urin ayaz tract symptoms due to benign prostatic hypertrophy 9614784533 9101 N40.1 Abnormal weight gain 161 330773 R63.5 Discussed importance of improved dietary habits Cough 08960958 R05 [id number] Elaine Jain MD [facility] (Adult Med) [address] [place] [address] 0 08/25/2019 09:39:42 08/25/2019 11:14:40 Chronic obstructive pulmonary disease 92203000 J44.9 Osteoarthr itis of knee 335834586 M17.9 Low back pain 799532135 M54.5 Lower urin ayaz tract symptoms due to benign prostatic hypertrophy 1750902837 9101 N40.1 [id number] MD [facility] (Adult Med) [address] [place] [address] 0 01/19/2020 09:39:38 01/20/2020 12:11:56 Chronic lung disease 204121451 J98.4 Heartburn 06358484 R12 Lower urin ayaz tract symptoms due to benign prostatic hypertrophy 3226240797 9101 N40.1 Osteoarthr itis of knee 972146657 M17.9 Tobacco user 374559890 Z 72.0 [id number] Elaine Jain MD [facility] (Adult Med) [address] [place] [address] 0 05/19/2020 08:18:06 05/20/2020 11:12:16 Chronic lung disease 799151438 J98.4 F/U with pulmonolog y Heartburn 24608269 R12 Advised use of omeprazole [id number] Katlyn Barrett MD [facility] (Adult Med) [address] [place] [address] 0 06/17/2020 08:16:26 06/21/2020 20:21:49 Hemoptysis 32361998 R04.2 ER (refused)H b/Hct Chronic ob structive pulmonary disease 92581047 J44.9 Cough 06434619 R05 [id number] MD Michelle [facility] (Adult Med) [address] [place] [address] 0 07/15/2020 08:25:00 07/16/2020 06:46:52 Benign prostatic hyperplasia 111411670 N40.1 Health Concerns Section Related Observation LastModified by Organization Detai ls LastModified Time None Recorded Concern Status LastModified by Organization Details LastModified Time None Recorded Advance Directives Directive None Recorded Payers Encounter Date Sequence Insurance Name Policy Number Policy Walls Covered Member ID Walls Member ID Guarantor Name 08/25/2019 1 [place] Bentley Mesa [id number] Bentley Mesa 08/25/2019 2 [facility] (MEDICAID REPLACEMENT - HMO) [id number] Bentley Mesa [id number] Bentley Mesa 01/19/2020 1 [place] Bentley Mesa [id number] Bentley Mesa 01/19/2020 2 [facility] (MEDICAID REPLACEMENT - HMO) [id number] Bentley Bonita [id number] Bentley Mesa 05/19/2020 1 [place] [facility] Bentley Mesa [id number] Bentley Mesa 05/19/2020 2 [place] MED[place]ARE OR MEDICARE REPLACEMENT PRIMARY) Bentley Mesa [id number] Bentley Mesa 06/17/2020 1 [place] [facility] Bentley Mesa [id number] Bentley Mesa 06/17/2020 2 [place] OR MEDICARE REPLACEMENT PRIMARY) Bentley Mesa [id number] Bentley Mesa 07/15/2020 1 [place] [facility] Bentley Mesa [id number] Bentley Mesa 07/15/2020 2 [place] OR MEDICARE REPLACEMENT PRIMARY) Bentley Mesa [id number] Bentley Mesa Notes Date Note Type Note Provider Name and Address Organization Details Recorded Time 08/25/2019 text/html No new complaint s. Is being considered for lung transplant. Currently doing pulmonary rehab. Elaine Jain MD Attn: Accounting,[address] [place], [address], [facility] 08/25/2019 11:09:22 01/19/2020 text/html Telephone visit due to Covid-19 precautions. No new complaints at present. Elaine Jain MD Attn: Accounting,[address] [place], [address], [facility] 01/19/2020 10:40:20 05/19/2020 text/html Telephone visit due to Covid-19 precautions. He has je more SOB lately. Scheduled to see pulmonary soon. Cataract surgery rescheduled because he was not feeling well. famotidine not as effective as ranitidine. Otherwise doing OK. Elaine Jain MD Attn: Accounting,[address] [place], [address], [facility] 05/19/2020 10:51:18 06/17/2020 text/html Phone visit due to the Covid 19 Dr Cristobal' patient My breathing is really, really, better But last night, I got to coughing, some blood came up from my throat I had a procedure done on my throat I kind of vomited Mr Mesa was apparently admitted to [facility] and discharged last week, unfortunately he had [...] this afternoon. 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 Barium swallow normalCT chest; Infiltrates, CAD, Small HHCT neck; Asymmetry, Tracheal abnormality Katlyn Barrett MD Attn: Accounting[address] [place], [address], [facility] 06/17/2020 11:53:12 07/15/2020 text/html Phone visit due [...] refilled. Katlyn Barrett MD Attn: Accounting[address] [place], [address], [facility] 07/15/2020 21:52:32
--- NOTE | 2024-11-27 10:34 | ECG_ITS ---
Test Date: 2024-11-27 10:19:29 Measurements Intervals Point Roberts Rate: 107 P: 70 [place]: 155 QRS: 37 QRSD: 86 T: 70 QT: 326 QTc: 437 Interpretive Statements SINUS TACHYCARDIA WITH OCCASIONAL VENTRICULAR PREMATURE COMPLEXES ABNORMAL ECG Compared to ECG 10/07/2024 14:36:11 HEART RATE HAS INCREASED Ventricular premature complex(es) now present Electronically Signed On 11-27-2024 11:19:31 SAP PROJECT MANAGER by Jeremy Ibarra D.O.
--- NOTE | 2024-11-27 10:36 | ED_ITS ---
HPI - Nausea/Vomiting/Diarrhea General Chief complaint: Nausea/Vomiting/Diarrhea Stated complaint: dypsnea Time Seen by Provider: 11/27/24 10:19 History of Present Illness HPI Narrative: 64-year-old male with history of COPD, GERD, PE he was not anticoagulated presents to the emergency department for productive cough and shortness of breath for 1 week. Patient states his cough is increase in sputum production over 1 week. States his cough with productive with yellow and white mucus. Also reporting increased shortness of breath and chest tightness that is improved any clears his lungs of mucus. Patient is on 3 L nasal cannula baseline and has not had increases oxygen. He is also reporting nausea and vomiting that started yesterday and diarrhea that started today. No fevers, abdominal pain, dysuria or hematuria. Denies lower extremity edema, history of CHF. No recent surgeries or hospitalizations. States every time he tries to eat or drink, he vomits. Patient states he has been using breathing treatments at home which provided some relief. Patient states he stopped smoking several years ago. Related Data Home Medications ?Medication ?Instructions ?Recorded ?Confirmed ?Last Taken ?Type hydrocodone 5 mg-acetaminophen 325 1 tablet PO Q6H PRN Pain 05/22/22 08/11/24 10/29/23 08:00 History mg tablet latanoprost 0.005 % eye drops 1 drp EACH EYE DAILY 11/20/22 08/11/24 10/29/23 History lidocaine 5 % topical patch 2 patch topical DAILY 10/29/23 08/11/24 10/29/23 History omeprazole 20 mg capsule,delayed 20 mg PO DAILY 10/29/23 08/11/24 Unknown History release fluticasone furoate 100 1 inh inhalation Q24H 08/06/24 08/11/24 Unknown History mcg-vilanterol 25 mcg/dose inhalation powder (Breo Ellipta) Allergies Allergy/AdvReac Type Severity Reaction Status Date / Time oxycodone AdvReac Itching Verified 10/07/24 12:25 Review of Systems 2 Review of Systems: All systems reviewed & are unremarkable except as noted in HPI and below PMFSH Past Medical History Medical History BPH (benign prostatic hyperplasia) Hiatal hernia Chronic deep vein thrombosis (DVT) Linear echogenic filling defect in the right femoral vein, likely chronic thrombus on venous dopplers 11/2020. Gastroesophageal reflux disease Chronic respiratory failure with hypoxia, on home oxygen therapy Pneumonia COPD with emphysema Chronic steroid therapy, 10 milligrams prednisone daily. Osteoarthritis Surgical History Surgical History S/P respiratory system surgery placement of [place]/endobronchial valves - [facility] H/O colonoscopy History of lung surgery History of bilateral cataract extraction Family History Family History Father Acute myocardial infarction Congestive heart failure Lung cancer Mother Diabetes mellitus Dementia Sibling Diabetes mellitus Lung cancer Social History Social History Social History: Surrogate decision maker: [place], . Code status: Full code. Smoking packs per day: 1 Smoking cigarettes per day: 20.0 Years smoked: 48 Smoking pack-years: 48.00 Smoking status: Former smoker Tobacco type: cigarettes Second hand tobacco smoke exposure: Yes Additional smoking assessment comments: pt used to smoke cigarettes and crack cocaine for 38 years Quit december 2017 Alcohol intake: current Drinks per week: 2 Alcohol use details: Patient currently drinks 2 beers and a shot on the weekends Substance use: former Substance use type: crack/cocaine Do You Feel Safe in your Home?: Yes Lack of Transportation: No Lack of Food: Never True Current Housing: I Have Housing Concerned About Future Housing: No Difficulty Paying Gas/Electric Bills: No Difficulty Paying for Meds: No Currently Unemployed: No Education: Decline to Answer Difficulty w/ Childcare or Family Care: No Living arrangements: with family Additional living arrangements comments: Patient lives with his in [place]. 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 Gender identity (if verbalized by the patient): Male Sexual Orientation (if Verbalized by the Patient): Straight or Heterosexual Spiritual care concerns: No Exam 2 Narrative: GENERAL: Well-appearing, well-nourished, and in no acute distress. HEAD: Normocephalic, atraumatic. EYES: EOMI. ENT: Nares clear, no rhinorrhea or epistaxis. Mucous membranes moist. NECK: Supple. CHEST: Decreased lung sounds throughout all lung shoemaker with expiratory wheezing. No rales or rhonchi. Patient on 3 L nasal cannula satting 100% with mild conversational dyspnea HEART: Regular rate and rhythm. No murmur heard. Normal peripheral pulses. ABDOMEN: Soft, nontender, nondistended, normal active bowel sounds. No rebound, guarding or rigidity. No CVA tenderness EXTREMITIES: Normal range of motion. No edema. SKIN: Warm, dry, no rash. NEURO: No focal deficits. Alert and oriented x3 Course Vital Signs Vital signs: Vital Signs Pulse Rate 107 H 11/27/24 10:15 Respiratory Rate 21 H 11/27/24 10:15 Blood Pressure 142/100 H 11/27/24 10:15 Pulse Oximetry 100 11/27/24 10:15 Oxygen Delivery Nasal Cannula 11/27/24 10:15 Oxygen Flow Rate 2 11/27/24 10:15 Pulse Rate 112 H 11/27/24 12:47 Respiratory Rate 19 11/27/24 12:47 Blood Pressure 152/97 H 11/27/24 12:47 Pulse Oximetry 100 11/27/24 12:47 Oxygen Delivery Nasal Cannula 11/27/24 11:08 Oxygen Flow Rate 3 11/27/24 11:08 MDM - Nausea/Vomiting/Diarrhea MDM Narrative Medical decision making narrative: 64-year-old male with history of COPD and chronic hypoxic respiratory failure on 3 L nasal cannula baseline presents to the emergency department for increasing shortness of breath and productive cough for 1 week, N/V that started yesterday and diarrhea that started today. See HPI for further history. Triage vitals with tachycardia and mild tachypnea. He is afebrile and satting 100% on his baseline 3 L nasal cannula. Lung sounds remarkable for expiratory wheezing throughout all lung shoemaker and decreased breath sounds. Presentation most consistent with COPD exacerbation, possible viral illness. Will obtain lab work, chest x-ray, viral swabs and provide IV magnesium, DuoNeb steroids. Given history of PE and not currently on anticoagulants with concurrent tachycardia, will obtain CTA chest PE. CBC without leukocytosis. Chemistries are largely unremarkable. UA with trace ketones, no UTI. Viral swabs are negative. Mag within normal limits. EKG shows sinus tachycardia with occasional premature complexes with a rate of 107, normal QRS duration, normal QTC, no ischemic changes. Troponin undetectable. CTA chest shows no PE or other acute cardiopulmonary disease, there is moderate emphysema with chronic collapse of the right upper lobe, multi nodule goiter and nonobstructive right nephrolithiasis. BNP within normal limits. A CT brain and cervical spine were obtained due to reported note that patient had an unwitnessed fall and was found to the bathroom. Patient denies this. States this is never happened. CT brain and cervical spine show no acute findings. Patient updated on results. He received 125 mg of Solu-Medrol, magnesium and DuoNeb with improvement. Repeat lung sounds have improved with mild residual wheezing. Shared decision making regarding disposition. Patient feels safe to be discharged home with antibiotics, steroids and plans to continue scheduled breathing treatments. Advised follow-up with his PCP and discussed return precautions. He is agreeable with the plan verbalized understanding. Discharged in stable condition. Lab Data 11/27/24 10:43 11/27/24 10:43 Labs: Lab Results 11/27/24 11/27/24 Range/Units 10:43 11:14 WBC 9.5 (4.5-10.0) K/mm3 RBC 4.27 L (4.6-6.20) M/mm3 Hgb 13.6 L (14.0-18.0) g/dL Hct 41.6 L (42.0-52.0) % MCV 97.4 (80-100) fl MCH 31.9 (26-34) pg MCHC 32.7 (32-36) g/dl RDW 14.3 (11.5-14.5) % Plt Count 279 (150-375) k/mm3 MPV 10.9 H (7.4-10.4) fl Immature Gran % (Auto) 0.4 (0-0.5) % Neut % (Auto) 84.2 H (45.5-73.1) % Lymph % (Auto) 9.5 L (18.3-44.2) % [place] % (Auto) 4.5 (2.6-8.5) % Eos % (Auto) 0.9 (0-4.4) % Baso % (Auto) 0.5 (0.2-1.2) % Lymph # (Auto) 0.91 (0.9-3.2) K/mm3 [place] # (Auto) 0.4 (0.1-0.6) K/mm3 Eos # (Auto) 0.1 (0-0.3) K/mm3 Baso # (Auto) 0.1 (0.0-0.1) K/mm3 Abs Immat Gran (auto) 0.04 H (0.00-0.031) K/mm3 Absolute Neuts (auto) 8.0 H (1.3-6.7) K/mm3 Absolute Nucleated RBC 0.000 (0.0-0.012) K/mm3 Nucleated RBC % 0.0 (0.0-0.2) % PT Pending INR Pending APTT Pending Sodium 140 (137-145) mmol/L Potassium 4.2 (3.4-5.0) mmol/L Chloride 103 (98-107) mmol/L Carbon Dioxide 29 (22-30) mmol/L Anion Gap 8 (4-12) mmol/L BUN 10 D (9-20) mg/dL Creatinine 0.53 L (0.7-1.3) mg/dL Estim Creat Clear Calc Not Reportable Estimated GFR > 60 (59 - ) Glucose 97 (65-110) mg/dL Calcium 9.3 (8.4-10.2) mg/dL Magnesium 2.0 (1.6-2.3) mg/dL Total Bilirubin 0.9 (0.2-1.3) mg/dL AST 43 (17-59) U/L ALT 51 H (6-50) U/L Alkaline Phosphatase 72 (38-126) U/L Troponin I < 0.012 (0.000-0.034) ng/mL NT-Pro-B Natriuret Pep 52 (19.9-100) pg/mL Total Protein 8.0 (6.3-8.2) g/dL Albumin 4.4 (3.5-5.1) g/dL Urine Color Yellow (Yellow) Urine Appearance Clear (Clear) Urine pH 7.5 (5.0-9.0) Ur Specific [place] 1.019 (1.001-1.035) Urine Protein Negative (Negative) mg/dL Urine Glucose (UA) Negative (Negative) mg/dL Urine Ketones Trace H (Negative) mg/dL Ur Blood (Man) Negative (Negative) Urine Nitrate Negative (Negative) Urine Bilirubin Negative (Negative) Urine Urobilinogen 1.0 (<2.0) mg/dL Leukocyte Esterase Rfl Negative (Negative) MECHELLE/UL Influenza A (RT-PCR) Negative (Negative) Influenza B (RT-PCR) Negative (Negative) RSV (RT-PCR) Negative (Negative) SARS-CoV-2 RNA (RT-PCR) Negative (Negative) Discharge Plan Discharge Clinical Impression: Acute exacerbation of chronic obstructive pulmonary disease, Multinodular goiter Patient Disposition: Home, Self-Care Condition: Stable Instructions: Antibiotic Form, COPD (Chronic Obstructive Pulmonary Disease) (DC), Thyroid Goiter (ED) Additional Instructions: Please take the steroids and antibiotics as directed. Use your nebulizer treatments several times a day for shortness of breath. Follow-up your primary care provider regarding the goiter and your visit today. Return to the emergency department if you develop chest pain, shortness of breath, you need to increase your oxygen, you develop a fever, or other concerning symptoms. Take ondansetron as needed for nausea. Patient Language: Wallisian Prescriptions: New doxycycline monohydrate 100 mg capsule 100 mg PO BID Qty: 14 0RF prednisone 50 mg tablet 50 mg PO DAILY Qty: 5 0RF albuterol sulfate 90 mcg/actuation HFA aerosol inhaler 1 inh inhalation QID PRN (Reason: shortness of breath or wheezing) Qty: 6.7 0RF ondansetron 4 mg tablet,disintegrating 4 mg PO Q8H Qty: 14 0RF No Action fluticasone furoate-vilanterol [Breo Ellipta] 100-25 mcg/dose blister with device 1 inh inhalation Q24H benzonatate 200 mg capsule 200 mg PO TID PRN (Reason: cough) Qty: 60 2RF Abrysvo (PF) 120 mcg/0.5 mL recon soln 0.5 ml IM ONCE Qty: 1 0RF Rx Instructions: as a single dose hydrocodone-acetaminophen 5-325 mg Tablet 1 tablet PO Q6H PRN (Reason: Pain) latanoprost 0.005 % drops 1 drp EACH EYE DAILY aspirin [Children's Aspirin] 81 mg Tablet,Chewable 81 mg PO DAILY@0800 30 Days Qty: 30 0RF omeprazole 20 mg capsule,delayed release(DR/EC) 20 mg PO DAILY lidocaine 5 % Adhesive Patch,Medicated 2 patch TOPICAL DAILY Rx Instructions: leave on most painful area for up to 12 hrs. Apply to back doxycycline hyclate 100 mg capsule 100 mg PO BID Qty: 20 0RF prednisone 20 mg tablet 40 mg PO DAILY 5 Days Qty: 10 0RF prednisone 20 mg tablet 40 mg PO DAILY 5 Days Qty: 10 0RF Rx Instructions: take starting 09/25/24, before 9am when possible azithromycin 250 mg tablet See Rx Instructions .ROUTE .COMPLEX Qty: 6 0RF Rx Instructions: For 250 mg dose pack: take 500 mg today (day 1), then 250 mg for 4 days (days 2-5) albuterol sulfate 2.5 mg /3 mL (0.083 %) solution for nebulization 2.5 mg inhalation Q6H PRN (Reason: Shortness Of Breath Or Wheezing) Qty: 360 5RF ipratropium bromide 0.02 % solution 2.5 ml inhalation Q6H PRN (Reason: shortness of breath or wheezing) Qty: 300 5RF roflumilast 500 mcg tablet See Rx Instructions .ROUTE .COMPLEX Qty: 30 11RF Dose Instruction: TAKE 1 TABLET BY MOUTH DAILY Rx Instructions: TAKE 1 TABLET BY MOUTH DAILY mupirocin 2 % ointment 1 applic topical BID-TID Qty: 22 3RF Rx Instructions: apply to nares albuterol sulfate 90 mcg/actuation HFA aerosol inhaler 1 - 2 puff inhalation Q4-6H PRN (Reason: shortness of breath or wheezing) Qty: 8.5 3RF fluticasone propionate 50 mcg/actuation spray,suspension See Rx Instructions .ROUTE .COMPLEX Qty: 16 10RF Dose Instruction: INSTILL ONE (1) SPRAY IN EACH NOSTRIL TWICE DAILY NEEDED Rx Instructions: INSTILL ONE (1) SPRAY IN EACH NOSTRIL TWICE DAILY NEEDED prednisone 5 mg tablet 5 mg PO DAILY Qty: 30 5RF lorazepam [Ativan] 0.5 mg tablet 0.5 mg PO BID PRN (Reason: anxiety) Qty: 30 0RF azithromycin 500 mg tablet See Rx Instructions .ROUTE .COMPLEX Qty: 13 5RF Dose Instruction: TAKE 1 TABLET BY MOUTH ON MONDAYS, WEDNESDAYS, AND FRIDAYS. Rx Instructions: TAKE 1 TABLET BY MOUTH ON MONDAYS, WEDNESDAYS, AND FRIDAYS. promethazine-DM 6.25-15 mg/5 mL syrup 5 ml PO Q6H PRN (Reason: cough) Qty: 118 1RF Rx Instructions: TAKE 5ML'S BY MOUTH EVERY 6 HOURS NEEDED FOR COUGH DIRECTED Follow-up/Referrals: UNKNOWN,DOCTOR [Primary Care Provider] -
[2024-11-27] MEDS: IPRATROPIUM 0.5 MG/ALBUTEROL SULFATE 2.5 MG AMPUL.NEB 3 ML INHALATION ×3 (10:53→10:54)
[2024-11-27 10:59] LABS: Basophils Absolute Auto 0.1 K/mm3 (0.0-0.1); Basophils Percent Auto 0.5 % (0.2-1.2); Eosinophils Absolute Auto 0.1 K/mm3 (0-0.3); Eosinophils Percent Auto 0.9 % (0-4.4); Hematocrit 41.6 % (42.0-52.0); Hemoglobin 13.6 g/dL (14.0-18.0); Immature Granulocyte Absolute 0.04 K/mm3 (0.00-0.031); Immature Granulocyte Percent A 0.4 % (0-0.5); Lymphocytes Absolute Auto 0.91 K/mm3 (0.9-3.2); Lymphocytes Percent Auto 9.5 % (18.3-44.2); Mean Corpuscular HGB Conc 32.7 g/dl (32-36); Mean Corpuscular Hemoglobin 31.9 pg (26-34); Mean Corpuscular Volume 97.4 fl (80-100); Mean Platelet Volume 10.9 fl (7.4-10.4); Monocytes Absolute Auto 0.4 K/mm3 (0.1-0.6); Monocytes Percent Auto 4.5 % (2.6-8.5); Neutrophils Percent Auto 84.2 % (45.5-73.1); Platelet Count Result 279 k/mm3 (150-375); Red Blood Count 4.27 M/mm3 (4.6-6.20); Red Cell Distribution Width 14.3 % (11.5-14.5); White Blood Count 9.5 K/mm3 (4.5-10.0)
[2024-11-27] MEDS: MAGNESIUM SULF 2 GM/WATER 50ML 2 GM/50 ML BAG IVPB (11:06)
[2024-11-27] MEDS: methylPREDNISolone SOD SUCC 125 MG VIAL IV PUSH (11:07)
[2024-11-27 11:10] LABS: Alanine Aminotransferase 51 U/L (6-50); Albumin Level 4.4 g/dL (3.5-5.1); Alkaline Phosphatase 72 U/L (38-126); Anion Gap 8 mmol/L (4-12); Aspartate Amino Transferase 43 U/L (17-59); Bilirubin,Total 0.9 mg/dL (0.2-1.3); Blood Urea Nitrogen 10 mg/dL (9-20); Calcium 9.3 mg/dL (8.4-10.2); Carbon Dioxide 29 mmol/L (22-30); Chloride 103 mmol/L (98-107); Estimated Glomerular Filt Rate > 60; Glucose 97 mg/dL (65-110); Potassium 4.2 mmol/L (3.4-5.0); Sodium 140 mmol/L (137-145)
[2024-11-27 11:18] LABS: NT Pro B Type Natriuretic Pept 52 pg/mL (19.9-100); Troponin I < 0.012 ng/mL (0.000-0.034)
[2024-11-27 11:25] LABS: Add Urine Microscopic? NO; Appearance Urine Clear (Clear); Bilirubin Urine Negative (Negative); Blood Urine Negative (Negative); Color Urine Yellow (Yellow); Glucose Urine UA Negative (Negative); Ketones Urine Trace mg/dL (Negative); Leukocyte Esterase Ur Negative LEU/UL (Negative); Nitrate Urine Negative (Negative); Protein Urine Negative (Negative); Specific Grav Ur 1.019 (1.001-1.035); pH Urine 7.5 (5.0-9.0)
[2024-11-27 11:33] LABS: Influenza A QL RT-PCR Negative (Negative); Influenza B QL RT-PCR Negative (Negative); RSV RNA, RT-PCR Negative (Negative); SARS-CoV-2 RNA PCR Negative (Negative)
--- OUTSIDE RECORDS SUMMARY | 2024-11-27 11:38 | XMS_ITS | Clinical Summary ---
Author Organization [facility] Address [address] [place] [address] Phone Care Team Providers Care Floor Assembler Name Role Phone Bentley Kyle MD Primary Care Provider [phone] Medications PAIN & FEVER EXTRA STRENGTH 500 [...] age to complete this topic Insurance MEDICAID [place] Care Teams Floor Assembler Relationship Specialty Start Date End Date Bentley Kyle MD [address] [place] [address] PCP - General Internal Medicine 02/01/21
--- NOTE | 2024-11-27 11:53 | PC.NURSE ---
Pt to CT via stretcher at this time.
== END 2024-11-27 13:42 | disposition home or self-care (01) ==
PROVIDERS: Emergency Provider Physician Assistant
DX: J44.1 Chronic obstructive pulmonary disease with (acute) exacerbation (principal); J43.9 Emphysema, unspecified; E04.2 Nontoxic multinodular goiter; J96.11 Chronic respiratory failure with hypoxia; Z99.81 Dependence on supplemental oxygen; N40.0 Benign prostatic hyperplasia without lower urinary tract symptoms; K44.9 Diaphragmatic hernia without obstruction or gangrene; K21.9 Gastro-esophageal reflux disease without esophagitis; M19.90 Unspecified osteoarthritis, unspecified site; Z86.718 Personal history of other venous thrombosis and embolism; Z87.01 Personal history of pneumonia (recurrent); Z86.711 Personal history of pulmonary embolism; Z87.891 Personal history of nicotine dependence; Z98.42 Cataract extraction status, left eye; Z98.41 Cataract extraction status, right eye; R00.0 Tachycardia, unspecified; I49.3 Ventricular premature depolarization
CPT/HCPCS: 36415; 70450; 71045; 71275; 72125; 80053; 81003; 83735; 83880; 84484; 85025; 87637; 93005; 94640; 96365; 96375; 99284; J2919; J3475; Q9967

== ENCOUNTER 2024-12-04 19:17 | Inpatient (IN) | payer MEDICARE, MEDICAID, SELFPAY ==
--- NOTE | ~2024-12-04 | XR_ITS ---
EXAMINATION: XR chest 1V portable DATE: 12/04/2024 19:48 INDICATION: Shortness of breath. TECHNIQUE: A single frontal view of the chest was obtained. COMPARISON: Chest single view 11/27/2024, chest CT 11/27/2024 FINDINGS: There are lucencies in the lungs, consistent with emphysema. There is chronic collapse of r ight lung upper lobe with endobronchial valves. No pleural effusion or pneumothorax. The heart size i s normal. IMPRESSION: 1. Emphysema. 2. 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 Reviewed, dictated and finalized at location A. MAL SPRAY OPERATOR
[2024-12-04 19:19] VITALS: BP 144/121; PULSE 123; RESP 34; TEMP 36.9; O2SAT 96
--- OUTSIDE RECORDS SUMMARY | 2024-12-04 19:20 | XMS_ITS | Clinical Summary ---
Author Organization [facility] Address [address] [place] [address] Care Team Providers Care Finance Associate Name Role Phone Aristeo Khan MD Primary Care Provider Ravi Queen MD Unavailable [phone] Allergies Active Allergy Reactions Criticality Noted Date Comments Oxycodone Hives,Itching High 05/08/2017 Medications ipratropium (ATROVENT HFA) 17 mcg/actuation inhaler Inhale 1 vial every 6 (six) hours Active raNITIdine (ZANTAC) 150 mg tablet Take 1 tablet (150 mg total) by mouth 05/08/20 17 Active predniSONE (DELTASONE) 10 mg tablet TAKE ONE TABLET DAILY WITH A MEAL FOR 30 DAYS 5 02/13/20 19 Active promethazine-DM (PROMETHAZINE-DM ) 1.25-3 mg/mL syrup TAKE ONE TEASPOONFUL 4 TIMES DAILY NEEDED FOR COUGH 13 04/10/20 19 Active albuterol HFA (PROVENTIL HFA,VENTOLIN HFA,PROAIR HFA) 90 mcg/actuation inhaler Ventolin HFA 90 mcg/actuation aerosol inhaler Active albuterol 2.5 mg /3 mL (0.083 %) nebulizer solution 06/26/20 22 Active Daliresp 500 mcg tablet 06/02/20 22 Active aspirin 81 mg enteric coated tablet [...] solution Administer into both eyes nightly Active LORazepam (ATIVAN) 0.5 mg tablet Take 1 tablet (0.5 mg total) by mouth 2 (two) times a day as needed for anxiety Active HYDROcodone-acet aminophen (NORCO) 5-325 mg per tabletIndication s:Pain Take 1 tablet by mouth 4 (four) times a day as needed for pain 120 tablet 12/08/19 25 025 Active HYDROcodone-acet aminophen (NORCO) 5-325 mg per tabletIndication s:Pain Take 1 tablet by mouth 4 (four) times a day as needed for pain 120 tablet 01/08/20 25 025 Active HYDROcodone-acet aminophen (NORCO) 5-325 mg per tabletIndication s:Pain Take 1 tablet by mouth 4 (four) times a day as needed for pain 120 tablet 02/07/20 25 025 Active naloxone (NARCAN) 4 mg/actuation spray,non-aeroso lIndications:John g term (current) use of opiate analgesic Administer 1 spray into affected nostril(s) as needed for opioid reversal 1 each 12/01/19 25 Active naloxone (NARCAN) 4 mg/actuation spray,non-aeroso l Administer 1 spray into affected nostril(s) as needed for opioid reversal 1 each 08/01/20 23 025 Discontin ued(Reord er) HYDROcodone-acet aminophen (NORCO) 5-325 mg per tabletIndication s:Pain Take 1 tablet by mouth 4 (four) times a day as needed for pain 120 tablet 09/09/20 24 025 Discontin ued(Reord er) HYDROcodone-acet aminophen (NORCO) 5-325 mg per tabletIndication s:Pain Take 1 tablet by mouth 4 (four) times a day as needed for pain 120 tablet 10/09/20 24 025 Discontin ued(Reord er) HYDROcodone-acet aminophen (NORCO) 5-325 mg per tabletIndication s:Pain Take 1 tablet by mouth 4 (four) times a day as needed for pain 120 tablet 11/08/19 25 025 Discontin ued(Reord er) ALPRAZolam (XANAX) 0.5 mg tablet Take 1 tablet 3 times a day by oral route. 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 [address] [place] [address] Liudmila Espinoza RN from Last 3 Months Medical History Medical [...] points, staff should administer the PHQ-9) 0 12/01/2024 Sex and Gender Information Value Date Recorded Sex Assigned at Not on file Legal Sex Male 8:01 PM FISH BIN TENDER Gender Identity Not on file Sexual Orientation Not on file Obstetrics History Last Filed Vital Signs Vital Sign Reading Time Taken Comments Blood Pressure 142/82 09/01/2024 9:08 AM FISH BIN TENDER Pulse 85 09/01/2024 9:08 AM FISH BIN TENDER Temperature 36.9 C (98.5 F) 04/02/2024 12:40 PM CDT Respiratory Rate 22 09/01/2024 9:08 AM FISH BIN TENDER Oxygen Saturation 95% 09/01/2024 9:08 AM FISH BIN TENDER Inhaled Oxygen Concentration - - Weight 111.1 [...] 2 - PCV) 05/08/2018 05/08/2017 Covid-19 Vaccine (4 - 2023-2 5 season) 2024 01/18/2022, 07/08/2021, 01/10/2021 Influenza Vaccine (#1) 2024 , 08/14/2020, 07/14/2019, Additional history exists Prostate Cancer Screening-PSA 09/27/2024 09/27/2022 Depression Screening 12/01/2025 12/01/2024, 09/01/2024, 09/01/2024, Additional history exists DTaP/Tdap/Td Vaccine (2 - [...] Comments PSA SCREEN Routine 09/27/2022 10:21 AM FISH BIN TENDER from Last 3 Months or Most Recently Relevant to Health Maintenance Results * PSA screen (09/27/2022 10:21 AM FISH BIN TENDER) PSA-Total 0.70 <=5.40 ng/mL [facility] Comment: Interpretive Data AGE SEX REFERENCE INTERVAL [...] revised 22. Blood 09/27/2022 10:2 1 AM FISH BIN TENDER 09/27/2022 10:44 AM FISH BIN TENDER us Aristeo Khan MD LAB BLOOD ORDERABLES Final Result [facility] [id number] [facility] Department [place] [address] from Last 3 Months or Most Recently Relevant to Health Maintenance Insurance MEDICARE [employer] MEDICARE [facility]AN [facility] MEDICARE SOLUTIONS [employer] MED[employer]ARE [employer] Care Teams Finance Associate Relationship Specialty Start Date End Date Aristeo Khan MD [address] [place] [address] PCP - General 06/28/22 Ravi Queen MD [address] [facility] [address] [address] Anesthesiologist Pain Management 09/05/22
--- OUTSIDE RECORDS SUMMARY | 2024-12-04 19:20 | XMS_ITS | Data Portability ---
Author Organization [place] - [facility] Facebook, Main Office Address [address] [place] [address] Care Team Providers Care Building Trades Teacher Name Role Phone GUILLAUME ERAZO Primary Care Provider GUILLAUME ERAZO Referring Provider [phone] Assessment No assessment recorded. Plan of Treatment Reminders Order Date Submit Date Provider Last Modified By Organization Details Last Modified Time Details Appointments Any 30 2024 08:00A Jesu Nolasco NP Not available Not available Not available Lab TSH, serum or plasma [address] (Lab), [address] [place], [address], 06/02/2024 10:46:58 T4, free, serum [address] (Lab), [address] [place], [address], 06/02/2024 10:47:09 CBC w/ auto diff [address] (Lab), [address] [place], [address], 06/02/2024 10:46:49 PSA, serum or plasma 2023 024 IRAIS [facility] (Lab), [address] [place], [address], 03/06/2024 00:11:54 lipid panel, serum 2023 024 [facility] (Lab), [address] [place], [address], 03/06/2024 00:11:55 TSH, serum or plasma [email or web address] [place] [address] (Lab), [address] [place], [address], 03/19/2024 08:05:47 CBC w/ auto diff 2023 024 [facility] (Lab), [address] [place], [address], 03/06/2024 00:11:55 glycohemo globin, total, blood 2023 [facility] (Lab), [address] [place], [address], 03/06/2024 00:11:55 CMP, serum or plasma 2023 024 [facility] (Lab), [address] [place], [address], 03/06/2024 00:11:[address] referral - Please call patient to schedule an appointme nt. Thank you. 2023 024 [email or web address] [facility] [address], [place], [address], 06/30/2024 08:46:[address] referral - Please call patient to schedule an appointme nt. Thank you. 2023 024 [email or web address] [facility] [place] [address], [place], [address], 04/02/2024 09:31:09 Procedures None recorded. Surgeries None recorded. Imaging None recorded. Medication Orders lorazepam 0.5 mg tablet 2024 025 [id number], [address] [place], [place], [id number], 11/03/2024 15:56:17 buspirone 5 mg tablet 2024 [facility] #[id number] [place], [id number], 11/03/2024 15:56:16 Patient TargetsNo targets recorded. Patient Instructions Encounter Date Encounter Id Patient Instructions Last Modified By Organization Details Last Modified Time 03/05/2024 [id number] dementia rating scale-2* [email or web address] Not available 03/05/2024 15:07:17 alcohol misuse* [email or web address] Not available 03/05/2024 15:07:25 depression screening* [email or web address] Not available 03/05/2024 15:07:28 multi-dimensiona l health assessment questionnaire* [email or web address] Not available 03/05/2024 15:07:20 Personalized [facility] Plan and Screening Recommendations Advance Directives - [...] XR, chest No observ ation record ed. [email or web address] [address], [address], 07/23/2023 09:44:09 08/26/20 23 08/26/2023 XR, hip, unila teral , 2 or 3 view No observ ation record ed. [address] [place], [address], 09/19/2023 16:59:52 09/02/20 23 09/02/2023 XR, lumba r spine No observ ation record ed. [email or web address] [place], [address], 09/19/2023 16:59:52 10/24/19 24 10/24/2023 XR, chest No observ ation record ed. [email or web address] [address], [address], 10/30/2023 09:19:04 10/29/19 24 10/29/2023 XR, chest No observ ation record ed. [email or web address] [address], [address], 10/30/2023 09:20:04 02/11/20 24 02/11/2024 XR, chest , 2 view No observ ation record ed. [email or web address] [address], [address], 02/18/2024 09:41:31 02/19/20 24 02/19/2024 LDCT, chest , for lung cance r screlori irving No observ ation record ed. [email or web address] [place] [id number], [place], [address], 03/23/2024 16:47:33 03/24/20 24 03/24/2024 XR, chest , 1 view No observ ation record ed. [email or web address] [address], [place], [address], 04/01/2024 09:41:11 08/25/20 24 08/25/2024 MRI, brain + brain stem, w/o contr ast No observ ation record ed. [email or web address] [address], [place], [address], 08/26/2024 13:59:16 09/06/20 24 09/05/2024 XR, chest , 2 view No observ ation record ed. [email or web address] [address], [place], [address], 09/07/2024 09:58:54 Result Notes None recorded. Problems Name Problem SNOMED Code Status Onset Date Resolution Date Notes Provider Name and Address Organization Details Recorded Time Chronic obstructiv e pulmonary disease 00318706 Active Not Available [facility] 3 18:04:39 Acute exacerbati on of chronic obstructiv e pulmonary disease 882547281 Active 2016 Not Available [facility] 3 18:04:39 Benign prostatic hyperplasi a 227443144 Active 2016 Not Available [facility] 3 18:04:39 Severe chronic obstructiv e pulmonary disease 260618370 Active 2018 Not Available [facility] 3 18:04:39 Chronic respirator y failure 31730650 Active 2018 Not Available [facility] 3 18:04:39 Ingrowing toenail 945162836 Active 2021 Not Available [facility] 3 18:04:39 Foot pain 17800758 Active 2021 Not Available [facility] 3 18:04:39 Tobacco dependence syndrome 82350516 Active Not Available [facility] 3 18:04:39 Seasonal allergy 233590445 Active 2022 RAY Leal [address], [place], [address] , [place] [facility] 3 10:55:26 Chronic cough 06058212 Active 2022 RAY Leal [address], [address], [place], [address] , [place] [facility] 3 10:56:49 Pain of right knee joint 3822858574139 00 Active 2022 RAY Leal [address], [address], [place], [address] , [place] [facility] 3 11:01:39 Gastroesop hageal reflux disease 391762861 Active 2022 RAY Leal [address], [address], [place], [address] , [place] [facility] 3 11:04:34 Lower abdominal pain 51036826 Active 2022 RAY Leal [address], [address], [place], [address] , [place] [facility] 3 10:57:20 Anxiety 45926290 Active 2022 Jolynn quintana, [place] [facility] 3 09:41:00 Arthritis 7336422 Active 2022 Jolynn quintana, [place] [facility] 3 09:41:08 Disorder of eye 329998326 Active 2022 Jolynn quintana, [place] [facility] 3 09:41:15 Headache 79708496 Active 2022 Jolynn quintana, [facility] [employer] [facility] 3 09:41:22 Heartburn 40504026 Active 2022 Jolynn Luxd mariano, [facility] [employer] [facility] 3 09:41:29 Disorder of lung 67879611 Active 2022 Jolynn Epperson mariano, [facility] [employer] [facility] 3 09:41:38 Ingrowing nail of toe of right foot 8381024373167 9102 Active 2022 Mata Lugo DPM [address], [address], [place], [address] , [facility] [employer] [facility] 3 10:57:35 Pain in right hip joint 2657057100099 02 Active 2022 NORY Velasquez-C [address], [address], [place], [address] , [facility] [employer] [facility] 3 16:05:21 Low back pain 238751925 Active 2022 NORY Velasquez-Katheryn [address], [address], [place], [address] , [facility] [employer] [facility] 3 14:31:44 Hyperthyro idism 17729503 Active 2023 NORY Velasquez-C [address], [address], [place], [address] , [facility] [employer] [facility] 4 10:06:09 Notes:PULMONARY DISEASE, USE OF NSAIDS Problem Notes None recorded. Procedures Surgical History Date Name Laterality Status Provider Name and Address Organization Details Recorded Time 03/05/20 Medicare Wellness CPT Code, subsequent completed Hortencia Gallagher RN [facility] [employer] [facility] 03/05/2024 09:30:38 06/06/20 Nail Debridement completed Mata Lugo DPM [address], [address], [place], [address], [facility] [employer] [facility] 06/06/2023 10:57:28 02/27/20 Medicare Wellness CPT Code, Initial completed RAY Leal [address], [facility] [address], [place], [address], [place] [facility] 02/26/2023 12:38:15 Unlisted procedure nose completed Not Available [facility] 12/12/2022 18:04:04 Imaging Results Imaging Date Name Status LastModified by Organiz [facility] Details LastModified Time 07/18/2023 XR, chest completed [address], [address], 07/23/2023 09:44:09 08/26/2023 XR, hip, unilateral, 2 or 3 view completed [address] [place], [address], 09/19/2023 16:59:52 09/02/2023 XR, lumbar spine completed [address] [place], [address], 09/19/2023 16:59:52 10/24/2023 XR, chest completed [email or web address] [address], [address], 10/30/2023 09:19:04 10/29/2023 XR, chest completed [email or web address] [address], [address], 10/30/2023 09:20:04 02/11/2024 XR, chest, 2 view completed [address], [address], 02/18/2024 09:41:31 02/19/2024 LDCT, chest, for lung cancer screening completed [email or web address] [address], [address], 03/23/2024 16:47:33 03/24/2024 XR, chest, 1 view completed [address], [address], 04/01/2024 09:41:11 08/25/2024 MRI, brain + brain stem, w/o contrast completed [email or web address] [facility] [address], [place], [address], 08/26/2024 13:59:16 09/05/2024 XR, chest, 2 view completed [facility] [address], [place], [address], 09/07/2024 09:58:54 Procedure Notes None recorded. Medical Equipment None Reported. Allergies Allergen ID Allergen Name Allergen Category Reaction Reaction Severity Criticality Documentation Date Start Date Code Code System Note Provider Name and Address Organization Details Recorded Time 22950 oxycodone medicatio n Not available Not available Not available 12/12/2022 7804 RxNorm Not Available [facility] 18:05:39 Medications Name Sig Start Date Stop [...] completed Not Available Not Available Not Available hydroxyzi ne HCl 25 mg tablet Take 1 tablet 3 times a day by oral route. 2024 active Not Available Not Available Not Avai lable morphine ER 15 mg tablet,ex tended release [...] Updated DateTime 3 175.26 cm 32.5 kg/m2 61052.3 2 g 98.7 [degF] 84 /min 92 % 92 % 133 mm[Hg] 86 mm[Hg] Kinsey Prieto MA [facility] [employer] 3 08:57:12 Date Recorded Body height Body mass index (BMI) Body weight Heart rate Respiratory rate Oxygen saturation Oxygen saturation in Arterial blood by Pulse oximetry Systolic blood pressure Diastolic blood pressure Provider Name and Address Organization Details Last Updated DateTime 3 175.26 cm 32.5 kg/m2 98316.3 2 g 109 /min 18 /min 95 % 95 % 109 mm[Hg] 63 mm[Hg] Angélica Antony CT [employer] [facility] [employer] 3 11:44:21 Date Recorded Body height Body mass index (BMI) Body weight Body temperature Oxygen saturation Oxygen saturation in Arterial blood by Pulse oximetry Inhaled oxygen flow rate Heart rate Systolic blood pressure Diastolic blood pressure Provider Name and Address Organization Details Last Updated DateTime 4 175.26 cm 34.6 kg/m2 804611. 61 g 97.6 [degF] 92 % 92 % 3 L/min 102 /min 142 mm[Hg] 88 mm[Hg] Sherita Rosas RN [facility] [employer] [facility] 4 14:27:39 Date Recorded Body height Body mass index (BMI) Body weight Body temperature Oxygen saturation Oxygen saturation in Arterial blood by Pulse oximetry Inhaled oxygen flow rate Heart rate Systolic blood pressure Diastolic blood pressure Provider Name and Address Organization Details Last Updated DateTime 4 175.26 cm 35.1 kg/m2 571360. 98 g 100 [degF] 93 % 93 % 3 L/min 89 /min 130 mm[Hg] 70 mm[Hg] Sherita Rosas RN [facility] [employer] [facility] 4 09:55:40 Date Recorded Body height Body temperature Heart rate Oxygen saturation Oxygen saturation in Arterial blood by Pulse oximetry Systolic blood pressure Diastolic blood pressure Provider Name and Address Organization Details Last Updated DateTime 5 175.26 cm 98 [degF] 100 /min 97 % 97 % 138 mm[Hg] 82 mm[Hg] Willian Lerma RN [facility] [employer] 5 15:28:02 Social History Question Answer Notes LastModified by Organizat ion Details LastModified Time Tobacco Smoking Status Former Smoker Not Available [facility] 12/12/2022 18:04:03 What Is Your Level Of Alcohol Consumption? Occasional [id number] Information not available 12/12/2022 What Is Your Level Of Caffeine Consumption? None [email or web address] Information not available 01/09/2023 In The 14 Days Before Symptom Onset, Have You Had Close Contact With A Laboratory-confir med COVID-19 While That Case Was Ill? No [id number] Information not available 12/12/2022 In The 14 Days Before Symptom Onset, Have You Had Close Contact With A Person Who Is Under Investigation For COVID-19 While That Person Was Ill? No [id number] Information not available 12/12/2022 What Type Of Diet Are You Following? REGULAR Information not available 01/09/2023 What Is Your Occupation? Disability [id number] Information not available 12/12/2022 When Did You Quit Smoking? 1-5yearssincel astcigarette MIGRATION.[id number] Information not available 12/12/2022 Do You Use Any Illicit Or Recreational Drugs? No [email or web address] Information not available 01/09/2023 Has Tobacco Cessation Counseling Been Provided? No MIGRATION.[id number] 7450 Information not available 12/12/2022 Have You Recently Traveled Abroad? No MIGRATION.[id number] 5480 Information not available 12/12/2022 Do You Have Any Dietary Restrictions? No [email or web address] Information not available 01/09/2023 Do You Or Have You Ever Used Any Other Forms Of Tobacco Or Nicotine? No MIGRATION.[id number] 7139 Information not available 12/12/2022 Sex: Unknown Functional Status Question Answer Note LastModified by Organization D etails LastModified Time What is your exercise level? Heavy [email or web address] Information not available 01/09/2023 Mental Status None recorded. Family History Relationship Description Onset Age of this Age Resolved Age Notes LastModified by Organization Details LastModified Time Sister Diabetes mellitus [id number] [id number] Not available 12/12/2022 18:04:04 Sister Cerebrovascu lar accident MIGRATION.948 [id number] Not available 12/12/2022 18:04:04 Sister Hypertensive disorder MIGRATION.763 [id number] Not available 12/12/2022 18:04:04 Mother Diabetes mellitus [id number].489 [id number] Not available 12/12/2022 18:04:04 Brother Cerebrovascu lar accident MIGRATION.014 [id number] Not available 12/12/2022 18:04:04 Brother Malignant neoplastic disease MIGRATION.983 [id number] Not available 12/12/2022 18:04:04 Father Heart disease MIGRATION.944 [id number] Not available 12/12/2022 18:04:04 Father Malignant neoplastic disease MIGRATION.902 [id number] Not available 12/12/2022 18:04:04 Mother Cerebrovascu lar accident [email or web address] Not available 09:49:05 Mother Hypertensive disorder [email or web address] Not available 2022 09:49:24 Sister Arthritis [email or web address] Not available 06/06/2023 09:49:15 Brother Family history of malignant neoplasm [email or web address] Not available 2022 09:49:42 Father Family history of malignant neoplasm [email or web address] Not available 2022 09:49:42 Medical History Condition Response ALLERGIES/HAYFEVER Y LUNG DISEASE/DISORDER Y BACK / NECK PROBLEMS Y ARTHRITIS Y HEARTBURN / REFLUX Y PULMONARY DISEASE Y USE OF NSAIDS Y HEADACHES/MIGRAINES Y ANXIETY DISORDER Y Immunizations Vaccine Type Date Status Note Provider Nam e and Address Organization Details Recorded Time Influenza, split virus, trivalent, preservative 8 completed Not Available [facility] 12/12/2022 18:05:38 Influenza, split virus, quadrivalent, PF 9 completed Not Available [facility] 12/12/2022 18:05:38 Influenza, split virus, quadrivalent, PF 8 completed Not Available [facility] 12/12/2022 18:05:38 Tdap 3 completed RAY Leal [address] [place] [address], [address], [facility] 02/26/2023 13:00:04 Past Encounters Encounter ID Performer Location Encounter Start Date Encounter Closed Date Diagnosis/Indication Diagnosis SNOMED-CT Code Diagnosis ICD10 Code Diagnosis Note [id number] [facility] Pod[facility] [place] [address] [place] [address] 06/14/2022 00:00:00 06/19/2022 11:50:24 [id number] [facility] Pod[facility] [place] [address] [place] [address] 07/09/2022 00:00:00 07/09/2022 13:46:46 [id number] RAY Leal [facility] Primary Care [facility] [address] [place] [address] 01/09/2023 09:54:34 01/09/2023 11:15:00 Chronic obstructive pulmonary disease 05275630 J44.9 Establishe d with pulmonolog ist.He is on 3L of oxygen regularly, he states he does not leave it on though all the time. In warmer weather and sitting still he is usually okay without it. O2 sat 94% today without his O2 on.Current ly on prednisone 10mg daily, roflumilas t 500mcg daily, albuterol inhaler/so lution PRN. Seasonal allergy 9568582 04 J30.2 Chronic cough 43421190 R 05.3 Always exacerbate d when he comes down with any infection. Will use cough medication PRN. Pain of ri ght knee joint 8681780144 33340 M25.561 Followed by pain management who prescribes hydrocodon e. Gastroesop hageal reflux disease 156835708 K21.9 [id number] RAY Leal [facility] Primary [facility] [place] [address] [place] [address] 02/26/2023 10:25:25 02/26/2023 11:43:04 Adult health examination 430852660 Z00.[address] Ibarra (cardiolog y) 2 weeks ago and ER last week. Will get copies. Covid vaccines- up to date on boostersFl u vaccine- recommende d each fallTetanu s vaccine- will update todayShing les vaccine- up to date Colonoscop y- 2021, wnl Recommende d routine eye exams and dental cleanings. Administra tion of diphtheria, pertussis, and tetanus vaccine 848051878 Z23 Chronic ob structive pulmonary disease 22928637 J44.9 Stable overall. Continue follow-up with pulmonolog [...] daily, albuterol inhaler/so lution PRN. Ingrowing toenail 948206 009 L60.0 Screening for disorder 682746348 Z13.9 [id number] RAY Leal [facility] Primary [facility] [place] [address] [place] [address] 03/19/2023 10:15:08 03/19/2023 12:42:51 Lower abdominal pain 78773971 R10.30 No pain on exam today. Pain is non-specif ic, will travel from one side to the other. No associated GI symptoms. Discussed red flag symptoms and ER precaution s, pt. expresses understand ing. Will continue to monitor symptoms. [id number] Mata Lugo DPM [facility] Podiatry [place] [address] [place] [address] 06/06/2023 09:24:40 06/06/2023 11:23:54 Ingrowing nail of toe of right foot 5512298246 7483458 L60.0 great toe medial cornerslan t back procedure performedF ollow-up as needed if becomes problemati c may require partial matrixecto my [id number] RAY Leal [facility] Primary Care [address] [place] [address] 08/12/2023 08:29:41 08/12/2023 09:38:22 Chronic obstructive pulmonary disease 76070865 J44.9 Stable overall. Continue follow-up with pulmonolog [...] t 500mcg daily, albuterol inhaler/so lution PRN. [id number] Mata Lugo DPM [facility] Podiatry [place] [address] [place] [address] 09/17/2023 11:36:50 09/30/2023 17:32:46 [id number] GILMAR Velasquez [facility] Primary Care [facility] [address] [place] [address] 03/05/2024 13:57:58 03/05/2024 15:12:45 Adult health examination 930279472 Z00.00 Screening for disorder 719465044 Z13.9 Diabetes m ellitus screening 321126247 Z13.1 Hyperlipid emia screening 145726681 Z13.220 Thyroid di sorder screening 198181777 Z13.29 Anemia screening 5667547 07 Z13.0 Headache 17636581 R51.9 -hx of headaches often, nose bleeds twice/week , vision disturbanc es-hx of MRI in ' but was unable to complete-h e would like a workup by neuro-neur ologist referral given [id number] Gumaro Harrison [employer] Primary Care [facility] [address] [place] [address] 06/02/2024 09:44:35 06/02/2024 10:36:45 Chronic obstructive pulmonary disease 28484374 J44.9 stable. sees pulmonolog y next monthverba kirilles walking more yesterday than he has in the last couple yearsstill uses nebulizer solution BID-TID prn Hyperthyroidism 01335489 E05.90 Headache 96729471 R51.9 -hx of headaches often, nose bleeds twice/week , vision disturbanc es-hx of MRI in ' but was unable to complete-h e would like a workup by neuro-neur ologist referral given [id number] NORY Thomas-Katheryn [facility] Primary Care [facility] [address] [place] [address] 11/03/2024 15:15:50 11/03/2024 15:57:32 Anxiety 20324454 F41.9 Will increase Lorazepam to 0.5mg TID and add Buspirone 5mg daily.Stacy ent will follow up in 1 month, sooner if needed. Chronic ob structive pulmonary disease 46094726 J44.9 oxygen dependent, going to Pulmonary rehab Saturday, Saturday and Saturday. Health Concerns Section Related Observation LastModified by Organization Detai ls LastModified Time None Recorded Concern Status LastModified by Organization Details LastModified Time None Recorded Advance Directives Directive None Recorded Payers Encounter Date Sequence Insurance Name Policy Number Policy Walls Covered Member ID Walls Member ID Guarantor Name 08/12/2023 1 [place] Bentley [place] [id number] Bentley [place] 08/12/2023 2 [place]ARE OR MEDICARE REPLACEMENT PRIMARY) Bentley Mes[place] [id number] Stewart Bonita 09/17/2023 1 [place] Stewart Bonita [id number] Stewart Bonita 09/17/2023 2 [place] OR [place]IC[place] REPLACEMENT PRIMARY) Bentley Mesa [id number] Bentley Mesa 03/05/2024 2 [place]IC[place]ACEMENT PRIMARY) Bentley Mesa [id number] Stewart Bonita 03/05/2024 1 [facility] (MEDICARE REPLACEMENT/AD VANTAGE - HMO) [id number] Bentley Mesa [id number] Bentley Mesa 06/02/2024 2 [place] OR MEDIC[place] REPLACEMENT PRIMARY) Bentley Mesa [id number] Stewart Bonita 06/02/2024 1 [facility] (MEDICARE REPLACEMENT/AD VANTAGE - HMO) [id number] Bentley Mesa [id number] Bentley Mesa 11/03/2024 2 [place] OR MEDIC[place] REPLACEMENT PRIMARY) Bentley Mesa [id number] Stewart Bonita 11/03/2024 1 [facility] (MEDICARE REPLACEMENT/AD VANTAGE - HMO) [id number] Bentley Mesa [id number] Bentley Mesa Notes Date Note Type Note Provider Name and Address Organization Details Recorded Time 08/12/2023 text/html Pt. here for routine follow-up. States his breathing has been doing better. He is not on any oxygen at office visit today. RAY Leal [address], [place], [address], [employer] [facility] [employer] 08/12/2023 10:04:11 03/05/2024 text/html pt is here for annual physical GILMAR Velasquez [address], [place], [address], [employer] [facility] [employer] 03/05/2024 15:11:48 06/02/2024 text/html pt is here for f/u GILMAR Mesa [address], [address], [place], [address], [facility] [employer] [facility] 06/02/2024 10:31:58 11/03/2024 text/html Patient is a [...] touching him.Patient denies SI/HI. NORY Thomas-Katheryn [address] [facility], [facility] [facility] [address], [place], [address], [employer] 11/03/2024 21:36:20
--- OUTSIDE RECORDS SUMMARY | 2024-12-04 19:20 | XMS_ITS | Referral Summary ---
Author Organization [facility] [address] [place] Address [address] [place] [address] Care Team Providers Care Tile Molder Hand Name Role Phone Aristeo Khan MD Primary Care Provider [phone] Ravi Queen MD Unavailable [phone] Encounters Date Type Department Care Team Description 12/01/2024 8:22 AM TOBACCO EDUCATOR - 12/01/2024 11:59 PM TOBACCO EDUCATOR Hospital Encounter [facility] A, Shay. 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 [address] [place] [address] Liudmila Espinoza RN from Last 3 Months Allergies Active Allergy [...] 06/28/2022 Insomnia secondary to chronic pain 06/28/2022 alf (current) use of opiate analgesic 06/14 Resolved [...] file Legal Sex Male 8:01 PM TOBACCO EDUCATOR Gender Identity Not on file Sexual Orientation Not on file Last Filed Vital Signs Vital Sign Reading Time Taken Comments Blood Pressure 142/82 09/01/2024 9:08 AM TOBACCO EDUCATOR Pulse 85 09/01/2024 9:08 AM TOBACCO EDUCATOR Temperature 36.9 C (98.5 F) 04/02/2024 12:40 PM CDT Respiratory Rate 22 09/01/2024 9:08 AM TOBACCO EDUCATOR Oxygen Saturation 95% 09/01/2024 9:08 AM TOBACCO EDUCATOR Inhaled Oxygen Concentration - - Weight 111.1 [...] Comments PSA SCREEN Routine 09/27/2022 10:21 AM TOBACCO EDUCATOR from Last 3 Months or Most Recently Relevant to Health Maintenance Results * PSA screen (09/27/2022 10:21 AM TOBACCO EDUCATOR) PSA-Total 0.70 <=5.40 ng/mL TALIB Comment: Interpretive [...] revised 22. Blood 09/27/2022 10:2 1 AM TOBACCO EDUCATOR 09/27/2022 10:44 AM TOBACCO EDUCATOR Aristeo Khan MD LAB BLOOD ORDERABLES Final Result [facility] [address] [facility] [place] [address] from Last 3 Months or Most Recently Relevant to Health Maintenance Insurance MEDICARE [place] MEDICARE [facility] PLAN [facility] OTHER Address: [address] [place] [address] [employer] Care Teams Tile Molder Hand Relationship Specialty Start Date End Date Aristeo Khan MD [address] [place] [address] PCP - General 06/28/22 Ravi Queen MD [address] [facility] [address] [place] [address] [place] [address] Anesthesiologist Pain Management 09/05/22
--- OUTSIDE RECORDS SUMMARY | 2024-12-04 19:20 | XMS_ITS | CONTINUITY OF CARE DOCUMENT ---
Author Name jose juan manzano Address Unknown Organization [facility] Address [address] [facility] [address] [place] [address] Phone [phone] Care Team Providers Care Customs Investigator Name Role Phone Randy Wynne MD Unavailable OLIVIA SAUNDERS MD Unavailable JEAN FINCH MD Unavailable [phone] INSURANCE PROVIDERS Payer name Policy type / Coverage type [place] [employer] party [employer] Medicaid 1 [id number]
--- OUTSIDE RECORDS SUMMARY | 2024-12-04 19:21 | XMS_ITS | Data Portability ---
Author Organization [facility] JIMBOFrancia Address [address] [place] [address] Care Team Providers Care Sales Rep Name Role Phone JORDAN MOSQUEDA Hotshot Superintendent Assessment No assessment recorded. Plan of Treatment Reminders Order Date Submit Date Provider Last Modified By Organization Details Last Modified Time Details Appointments None recorded. Lab hemoglobin + hematocrit , blood 2019 [facility], [address] [place] [address], [address], [place], [address], 0 11:29:35 hemoglobin + hematocrit , blood 2019 020 [facility] Lab Orders, [address], [place], [address], 0 11:29:43 Referral None recorded. Procedures None recorded. Surgeries None recorded. Imaging None recorded. Medication Orders tamsulosin 0.4 mg capsule 2019 020 INTERFACE Not available 0 11:29:16 promethazi ne-DM 6.25 mg-15 mg/5 mL oral syrup 2019 020 INTERFACE Not available 0 11:20:00 Patient TargetsNo targets recorded. Patient Instructions Encounter Date Encounter Id Patient Instructions Last Modified By Organization Details Last Modified Time 06/17/2020 [id number] ER (Refused) Discharge summary STAT labs at [facility] Follow up with GI (today) Follow up with the technical support engineer Follow up in 1-2 weeks gris Not available 06/17/2020 11:23:00 He has refused a n ER evaluation, Me, myself, I feel good gris Not available 06/17/2020 11:22:28 07/15/2020 [id number] Discharge summar y and lab results from MATHEW landry Not available 07/15/2020 11:35:23 Reason for Referral None Reported. Results Created Date Observation Date Name Description Value Unit Range Abnormal Flag Note LastModifiedBy Organization Detail LastModifiedTime 11/11/19 20 11/11/2019 XR, knee, 3 view No observ ation record ed. [facility] (Imaging) [address] [place], [address], 11/18/2019 10:38:18 12/07/19 20 12/07/2019 LDCT, chest , for lung cance r scree kevin No observ ation record ed. [address] (Imaging) [address] [place], [address], 12/15/2019 14:52:56 06/02/20 20 06/01/2020 XR, chest No observ ation record ed. [facility] (Imaging) [address] [place], [address], 06/17/2020 11:17:19 06/02/20 20 06/02/2020 CT, neck, soft tissu e, w/wo contr ast No observ ation record ed. [facility] (Imaging) [address] [place], [address], 06/17/2020 11:17:19 06/02/20 20 06/02/2020 CT, neck, soft tissu e, w/o contr ast No observ ation record ed. [facility] [address], [place], [address], 06/17/2020 11:17:19 06/03/20 20 06/03/2020 opal martinez ow study No observ ation record ed. [facility] (Imaging) [address] [place], [address], 06/17/2020 11:17:19 06/03/20 20 06/03/2020 XR, chest No observ ation record ed. [facility] (Imaging) [address] [place], [address], 06/17/2020 11:17:19 06/05/20 20 06/05/2020 CT, chest , w/o contr ast No observ ation record ed. [facility] (Imaging) [address] [place], [address], 06/17/2020 11:17:19 Result Notes None recorded. Problems Name Problem SNOMED Code Status Onset Date Resolution Date Notes Provider Name and Address Organization Details Recorded Time Allergic rhinitis 40432957 Active 2017 Katlyn Barrett MD Attn: Accountin g,[address] [facility], [place], [address], [place] [facility] 0 11:06:48 Abnormal weight gain 502513144 Active 2018 Katlyn Barrett MD Attn: Accountin g,[address] [facility], [place], [address], [place] [facility] 0 11:06:48 Heartburn 79426480 Active Katlyn Barrett MD Attn: Accountin g,[address] [facility], [place], [address], [place] [facility] 0 11:06:48 Impotence Active Katlyn Barrett MD Attn: Accountin g,[address] [facility], [place], [address], [place] [facility] 0 11:06:48 Cough 86704072 Active Katlyn Barrett MD Attn: Accountin g,[address] [facility], [place], [address], [place] [facility] 0 11:06:48 Chronic lung disease 672156050 Active Katlyn Barrett MD Attn: Accountin g,[address] [facility], [place], [place], [address] [place] [address] 2, [place] [facility] 0 11:06:48 Knee pain Active Katlyn Barrett MD Attn: Accountin g,[address] [facility], [place], [place], [address] [place] [address] 2, [place] [facility] 0 11:06:48 Chondroma lacia of patella 84518733 Active Katlyn Barrett MD Attn: Accountin g,[address] [facility], [place], [place], [address] [place] [address] 2, [place] [facility] 0 11:06:48 Osteoarth ritis of knee 146077422 Active Katlyn Barrett MD Attn: Accountin g,[address] [place], [place], [address] [place] [address] 2, [place] [facility] 0 11:06:48 Joint pain 34674611 Active Katlyn Barrett MD Attn: Accountin g,[address] [place], [place], [address] [place] [address] 2, [place] [facility] 0 11:06:48 Muscle pain 59708686 Active Katlyn Barrett MD Attn: Accountin g,[address] [place], [place], [address] [place] [address] 2, [place] [facility] 0 11:06:48 Chronic obstructi ve pulmonary disease 97350766 Active Elaine Jain MD Attn: Accountin g,[address] [place], [place], [address] [place] [address] 2, [place] [facility] 6 14:54:50 Tobacco user 206470294 Active Katlyn Barrett MD Attn: Accountin g,[address] [place], [place], [address] [place] [address] 2, [place] [facility] 0 11:06:48 Low back pain 045665039 Active Katlyn Barrett MD Attn: Accountin g,[address] [place], [place], [address] [place] [address] 2, [place] [facility] 0 11:06:48 Paresthes ia 33724109 Active Katlyn Barrett MD Attn: Nela ye,[address] [facility], [place], [address], [place] [facility] 0 11:06:48 Structura l and functiona l abnormali ties of the kidney Completed 01/19/2020 Elaine Jain MD Attn: Nela ye,[address] [facility], [place], [address], [place] [facility] 0 10:39:12 Kidney lesion 685689109121 00 Completed 01/19/2020 Elaine Jain MD Attn: Nela ye,[address] [facility], [place], [address], [place] [facility] 0 10:39:00 Disorder of skin and/or subcutane ous tissue 58742509 Active Katlyn Barrett MD Attn: Nela ye,[address] [facility], [place], [address], [place] [facility] 0 11:06:48 Simple renal cyst 82498232 Active Katlyn Barrett MD Attn: Nela ye,[address] [facility], [place], [address], [place] [facility] 0 11:06:48 Mass of subcutane ous tissue of back 344324221355 103 Active 2015 Katlyn Barrett MD Attn: Nela ye,[address] [facility], [place], [address], [place] [facility] 0 11:06:48 Lower urinary tract symptoms due to benign prostatic hypertrop hy 627981516494 01 Active 2016 Katlyn Barrett MD Attn: Chadjose e ye,[address] [facility], [place], [address], [place] [facility] 0 11:06:48 Constipat ion 07245603 Active 2016 Katlyn Barrett MD Attn: Nela ye,[address] [facility], [place], [address], [place] [facility] 0 11:06:48 Problem Notes None recorded. Procedures Surgical History Date Name Laterality Status Provider Name and Address Organization Details Recorded Time 5 Joint Injection completed Ramy Yarbrough [place] - [facility] 05/23/2015 15:07:30 Imaging Results Imaging Date Name Status LastModified by Organiz ation Details LastModified Time 11/11/2019 XR, knee, 3 view completed [facility] (Imaging) [address] [place], [address], 11/18/2019 10:38:18 12/07/2019 LDCT, chest, for lung cancer screening completed [address] (Imaging) [address] [place], [address], 12/15/2019 14:52:56 06/01/2020 XR, chest completed [facility] (Imaging) [address] [place], [address], 06/17/2020 11:17:19 06/02/2020 CT, neck, soft tissue, w/wo contrast completed [facility] (Imaging) [address] [place], [address], 06/17/2020 11:17:19 06/02/2020 CT, neck, soft tissue, w/o contrast completed [facility] [address], [place], [address], 06/17/2020 11:17:19 06/03/2020 barium swallow study completed [facility] (Imaging) [address] [place], [address], 06/17/2020 11:17:19 06/03/2020 XR, chest completed [facility] (Imaging) [address] [place], [address], 06/17/2020 11:17:19 06/05/2020 CT, chest, w/o contrast completed [facility] (Imaging) [address] [place], [address], 06/17/2020 11:17:19 Procedure Notes None recorded. Medical Equipment None Reported. Allergies Allergen ID Allergen Name Allergen Category Reaction Reaction Severity Criticality Documentation Date Start Date Code Code System Note Provider Name and Address Organization Details Recorded Time 37063 oxycodone medicatio n itching moderate Not available 12/02/2015 2014 RxNorm Not Available Not Available Not Available [...] Updated DateTime 9 175.26 cm 37.5 kg/m2 052128. 46 g 98.1 [degF] 94 % 94 % 84 /min 122 mm[Hg] 84 mm[Hg] Emilia Hebert [place] [facility] 9 10:50:24 Date Recorded Body height Provider Name an d Address Organization Details Last Updated DateTime 01/19/2020 175.26 cm Emilia Hebert MA [facility] 0 09:40:18 Date Recorded Body height Provider Name an d Address Organization Details Last Updated DateTime 05/19/2020 175.26 cm Emilia Hebert MA [facility] 0 09:47:41 Date Recorded Body height Provider Name an d Address Organization Details Last Updated DateTime 06/17/2020 175.26 cm Lalita Buckner MA [facility] 06/17/20 20 10:01:54 Date Recorded Body height Provider Name an d Address Organization Details Last Updated DateTime 07/15/2020 175.26 cm Jenna Molina MA [facility] 020 10:52:41 Social History Question Answer Notes LastModified by Organizat ion Details LastModified Time Tobacco Smoking Status Former Smoker Quit 12/24/2018 Emilia Hebert MA null, [facility] 04/30/2019 10:31:18 What Is Your Level Of [...] SNOMED-CT Code Diagnosis ICD10 Code Diagnosis Note [id number] [facility] (Adult Med) [address] [place] [address] 09/27/2014 15:04:00 09/27/2014 17:04:25 Chronic obstructive pulmonary disease 93467441 Tobacco user [id number] Low back pain 756242930 Joint pain 09552313 Paresthesia 85277818 [id number] [facility] (Adult Med) [address] [place] [address] 01/04/2015 14:16:36 01/04/2015 16:04:41 Chronic obstructive pulmonary disease 88789139 Heartburn 58884750 Joint pain 04885570 Impotence 559627160 [id number] Elaine Jain MD [facility] (Adult Med) [address] [place] [address] 02/03/2015 13:56:33 02/03/2015 14:30:34 Joint pain 60449077 Chronic ob structive pulmonary disease 16430580 Low back pain 881980245 [id number] Elaine Jain MD [facility] (Adult Med) [address] [place] [address] 02/14/2015 10:05:33 02/14/2015 15:25:14 Cough 92081546 Tobacco user [id number] Chronic lung disease 920162902 [id number] Elaine Jain MD [facility] (Adult Med) [address] [place] [address] 04/19/2015 12:53:17 04/20/2015 10:06:04 Chronic lung disease 415896034 Low back pain 244311110 Tobacco user [id number] Heartburn 52528454 [id number] [facility] (Adult Med) [address] [place] [address] 05/17/2015 16:01:13 05/19/2015 11:34:27 Knee pain 86859130 Chronic ob structive pulmonary disease 02300804 Paresthesia 85129033 [id number] Elaine Jain MD [facility] [address] [address] 05/23/2015 14:26:20 05/24/2015 14:55:47 Chondromalacia of patella 21766490 Knee pain 89308565 Osteoarthr itis of knee 996349160 [id number] [facility] [address] [address] 06/30/2015 09:28:33 06/30/2015 15:13:52 [id number] Juaquin Gaspar MD [facility] [address] [address] 08/08/2015 09:05:11 08/08/2015 17:10:25 Knee pain 59900807 M25.561 Osteoarthr itis of knee 280220536 M17.11 Chondromal acia of patella 52972151 M22.41 [id number] [facility] (Adult Med) [address] [place] [address] 08/18/2015 14:02:14 08/18/2015 18:09:16 Low back pain 523949927 M54.5 Osteoarthr itis of knee 823527598 M17.9 [id number] Juaquin Gaspar MD [facility] [address] [address] 12/02/2015 10:57:53 12/02/2015 13:22:24 Knee pain 94661153 M25.561 Osteoarthr itis of knee 980237694 M17.11 Chondromal acia of patella 07103947 M22.41 [id number] Mikala Montez is [facility] (Adult Med) [address] [place] [address] 01/10/2016 14:32:02 01/10/2016 18:23:06 Chondromalacia of patella 01338691 M22.41 Chronic ob structive pulmonary disease 65966917 J44.9 Knee pain 34335758 M25.5 61 Adult heal th examination 587151194 Z00.01 Screening for malignant neoplasm of colon 454660846 Z12.11 [id number] Elaine Jain MD [facility] (Adult Med) [address] [place] [address] 0 04/24/2016 14:38:44 04/24/2016 16:44:15 Chronic obstructive pulmonary disease 98542685 J44.9 Cough 55929023 R05 Knee pain 48855423 M25.5 61 Kidney lesion 5927574643 9100 N28.9 Disorder o f skin and/or subcutaneous tissue 82683979 L98.9 Left shoulder region. Will observe at present [id number] Zahra Devine [facility] (Adult Med) [address] [place] [address] 06/05/2016 13:20:16 06/05/2016 18:11:10 Simple renal cyst 33288182 N28.1 Chronic ob structive pulmonary disease 87455923 J44.9 Joint pain 79074353 M25. 50 Osteoarthr itis of knee 420244234 M17.9 [id number] [facility] [address] [place] [address] 10/04/2016 13:14:32 10/04/2016 15:06:14 Chronic obstructive pulmonary disease 72674520 J44.9 Tobacco user 379984761 Z 72.0 Cough 92292122 R05 [id number] MD [facility] (Adult Med) [address] [place] [address] 11/14/2016 15:26:51 11/14/2016 17:50:37 Chronic obstructive pulmonary disease 32526422 J44.9 Osteoarthr itis of knee 383496756 M17.9 Low back pain 843923298 M54.5 [id number] MD [facility] (Adult Med) [address] [place] [address] 01/17/2017 13:02:09 01/17/2017 14:50:29 Chronic obstructive pulmonary disease 54032086 J44.9 Osteoarthr itis of knee 967590759 M17.9 Low back pain 230430693 M54.5 Chondromal acia of patella 47417595 M22.41 Cough 39851824 R05 [id number] Elaine [facility]ain MD [facility] (Adult Med[facility] [address] [place] [address] 04/03/2017 14:05:39 04/17/2017 12:08:04 Chronic obstructive pulmonary disease 03225230 J44.9 Cough 48056816 R05 Impotence 860977987 N52. 9 Osteoarthr itis of knee 078261856 M17.9 [id number] Elaine Jain MD [facility] (Adult Med) [address] [place] [address] 0 06/27/2017 14:13:46 06/27/2017 16:18:33 Chronic obstructive pulmonary disease 74186669 J44.9 Heartburn 93912486 R12 Lower urin ayaz tract symptoms due to benign prostatic hypertrophy 1414511623 9101 N40.1 Constipation 92437959 K5 9.00 [id number] Elaine Jain MD [facility] (Adult Med) [address] [place] [address] 0 12/26/2017 14:52:39 12/26/2017 16:26:13 Chronic obstructive pulmonary disease 22932556 J44.9 Lower urin ayaz tract symptoms due to benign prostatic hypertrophy 0075663977 9101 N40.1 Heartburn 30810395 R12 Allergic rhinitis 510989 04 J30.9 [id number] Elaine Jain MD [facility] (Adult Med) [address] [place] [address] 0 05/13/2018 10:58:42 05/13/2018 12:48:47 Chronic lung disease 756132103 J98.4 Chondromal acia of patella 79519086 M22.41 Chronic ob structive pulmonary disease 13416899 J44.9 Lower urin ayaz tract symptoms due to benign prostatic hypertrophy 3690247469 9101 N40.1 Heartburn 44204131 R12 Osteoarthr itis of knee 825123009 M17.9 [id number] Elaine Jain MD [facility] (Adult Med) [address] [place] [address] 0 09/02/2018 11:13:37 09/02/2018 13:04:53 Chronic obstructive pulmonary disease 29517077 J44.9 Osteoarthr itis of knee 601783139 M17.9 Low back pain 387206384 M54.5 Chondromal acia of patella 46690362 M22.41 Paresthesia 66872427 R20 .2 Heartburn 03467948 R12 [id number] Elaine Jain MD [facility] (Adult Med) [address] [place] [address] 10/29/2018 12:03:21 10/30/2018 09:23:48 Chronic obstructive pulmonary disease 69903751 J44.[address] showed new abnormalit ies. Will refer back to pulmonary. Tobacco user 841092847 Z 72.0 Computed t omography result abnormal 002720696 R93.89 [id number] Elaine Jain MD [facility] (Adult Med) [address] [place] [address] 0 12/31/2018 12:05:34 01/01/2019 12:22:50 Chronic obstructive pulmonary disease 16537555 J44.9 Osteoarthr itis of knee 053891152 M17.9 Knee pain 61320795 M25.5 61 Allergic rhinitis 597198 04 J30.9 [id number] Elaine Jain MD [facility] (Adult Med) [address] [place] [address] 0 04/30/2019 09:25:34 05/01/2019 09:51:56 Chronic obstructive pulmonary disease 06009171 J44.9 Heartburn 41026923 R12 Osteoarthr itis of knee 533051177 M17.9 Knee pain 82434478 M25.5 61 Lower urin ayaz tract symptoms due to benign prostatic hypertrophy 0488363478 9101 N40.1 Abnormal weight gain 161 591206 R63.5 Discussed importance of improved dietary habits Cough 25421123 R05 [id number] Elaine Jain MD [facility] (Adult Med) [address] [place] [address] 0 08/25/2019 09:39:42 08/25/2019 11:14:40 Chronic obstructive pulmonary disease 21781993 J44.9 Osteoarthr itis of knee 664238778 M17.9 Low back pain 445816308 M54.5 Lower urin ayaz tract symptoms due to benign prostatic hypertrophy 4501408703 9101 N40.1 [id number] MD [facility] (Adult Med) [address] [place] [address] 0 01/19/2020 09:39:38 01/20/2020 12:11:56 Chronic lung disease 728480559 J98.4 Heartburn 31619223 R12 Lower urin ayaz tract symptoms due to benign prostatic hypertrophy 4503131884 9101 N40.1 Osteoarthr itis of knee 829583191 M17.9 Tobacco user 894990471 Z 72.0 [id number] Elaine Jain MD [facility] (Adult Med) [address] [place] [address] 0 05/19/2020 08:18:06 05/20/2020 11:12:16 Chronic lung disease 514817648 J98.4 F/U with pulmonolog y Heartburn 70882743 R12 Advised use of omeprazole [id number] Katlyn Barrett MD [facility] (Adult Med) [address] [place] [address] 0 06/17/2020 08:16:26 06/21/2020 20:21:49 Hemoptysis 67818746 R04.2 ER (refused)H b/Hct Chronic ob structive pulmonary disease 08848438 J44.9 Cough 76564573 R05 [id number] MD Michelle [facility] (Adult Med) [address] [place] [address] 0 07/15/2020 08:25:00 07/16/2020 06:46:52 Benign prostatic hyperplasia 166584020 N40.1 Health Concerns Section Related Observation LastModified by Organization Detai ls LastModified Time None Recorded Concern Status LastModified by Organization Details LastModified Time None Recorded Advance Directives Directive None Recorded Payers Encounter Date Sequence Insurance Name Policy Number Policy Walls Covered Member ID Walls Member ID Guarantor Name 08/25/2019 1 [place] Bentley Mesa [id number] Bentley Mesa 08/25/2019 2 [facility] [facility] (MEDICAID REPLACEMENT - HMO) [id number] Bentley Mesa [id number] Bentley Mesa 01/19/2020 1 [place] Bentley Mesa [id number] Bentley Mesa 01/19/2020 2 [facility] [facility] (MEDICAID REPLACEMENT - HMO) [id number] Bentley Bonita [id number] Bentley Mesa 05/19/2020 1 [place] [facility] Bentley Mesa [id number] Bentley Mesa 05/19/2020 2 [place] MED[place]ARE OR MEDICARE REPLACEMENT PRIMARY) Bentley Mesa [id number] Bentley Mesa 06/17/2020 1 [place] [facility] Bentley Mesa [id number] Bentley Mesa 06/17/2020 2 [place] OR MEDICARE REPLACEMENT PRIMARY) Bentley Mesa [id number] Bentley Mesa 07/15/2020 1 [place] [facility] Bentley Mesa [id number] Bentley Mesa 07/15/2020 2 [place] OR MEDICARE REPLACEMENT PRIMARY) Bentley Mesa [id number] Bentley Mesa Notes Date Note Type Note Provider Name and Address Organization Details Recorded Time 08/25/2019 text/html No new complaint s. Is being considered for lung transplant. Currently doing pulmonary rehab. Elaine Jain MD Attn: Accounting,[address] [place], [address], [facility] 08/25/2019 11:09:22 01/19/2020 text/html Telephone visit due to Covid-19 precautions. No new complaints at present. Elaine Jain MD Attn: Accounting,[address] [place], [address], [facility] 01/19/2020 10:40:20 05/19/2020 text/html Telephone visit due to Covid-19 precautions. He has je more SOB lately. Scheduled to see pulmonary soon. Cataract surgery rescheduled because he was not feeling well. famotidine not as effective as ranitidine. Otherwise doing OK. Elaine Jain MD Attn: Accounting,[address] [place], [address], [facility] 05/19/2020 10:51:18 06/17/2020 text/html Phone visit due to the Covid 19 Dr Cristobal' patient My breathing is really, really, better But last night, I got to coughing, some blood came up from my throat I had a procedure done on my throat I kind of vomited Mr Mesa was apparently admitted to [facility] and discharged last week, unfortunately he had [...] this afternoon. 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 Barium swallow normalCT chest; Infiltrates, CAD, Small HHCT neck; Asymmetry, Tracheal abnormality Katlyn Barrett MD Attn: Accounting,[address] [place], [address], [facility] 06/17/2020 11:53:12 07/15/2020 text/html Phone visit due [...] refilled. Katlyn Barrett MD Attn: Accounting,[address] [place], [address], [facility] 07/15/2020 21:52:32
--- OUTSIDE RECORDS SUMMARY | 2024-12-04 19:21 | XMS_ITS | Clinical Summary ---
Author Organization [facility] Address [address] [place] [address] Phone Care Team Providers Care Accounting Manager Controller Name Role Phone Bentley Kyle MD Primary Care Provider [phone] Allergies Active Allergy Reactions Criticality Noted Date [...] bronchoscopy Immunizations Immunization Administration Dates Next Due ([employer] Mobile)(12 YR UP) COVID-19 VACCINE - EMERGENCY USE AUTHORIZATION, MRNA, [id number](PF) 30 MCG/0.3 ML IM SUSP 01/10/2021 Influenza Seasonal Unspecified Formulation IM Social History Tobacco Use Types Packs/Day Years Used Date Smoking Tobacco: Never Smokeless Tobacco: Never Sex and Gender Information Value Date Recorded Sex Assigned at Not on file Legal Sex Male 3:05 PM CESSPOOL CLEANER Gender Identity Not on file Sexual Orientation Not on file Last Filed Vital Signs Vital Sign Reading Time Taken Comments Blood Pressure 130/80 11/21/2021 1:06 PM CESSPOOL CLEANER Pulse 87 11/21/2021 1:06 PM CESSPOOL CLEANER Temperature 37.2 C (98.9 F) 04/20/2021 11:16 AM CDT Respiratory Rate 18 04/20/2021 3:29 PM CDT Oxygen Saturation 91% 11/21/2021 1:06 PM CESSPOOL CLEANER 3 L Inhaled Oxygen Concentration - - Weight 116.1 kg (256 lb) 11/21/2021 1:06 PM CESSPOOL CLEANER Height 175.3 cm (5' 9 ) 11/21/2021 1:06 PM CESSPOOL CLEANER Body Mass Index 37.8 11/21/2021 1:06 PM CESSPOOL CLEANER Plan of Treatment Health Maintenance Due Date Last Done Comments DTAP/TDAP/TD VACCINES (1 - Tdap) 01/22/1979 COLORECTAL SCREENING 01/22/2005 Colorectal Cancer Screening 01/22/2005 FIT-DNA Q 3 years 01/22/2005 FIT/FOBT Q 1 year 01/22/2005 Flex Sig/CT Colonography Q 5 years 01/22/2005 ZOSTER VACCINE (1 of 2) 01/22/2010 RSV VACCINE (60+ or ) (1 - Risk 60-74 years 1-dose series) 2020 INFLUENZA VACCINE (#1) 2024 08/14/2020 COVID-19 Vaccine (2 - season) 2024 03/ Insurance MEDICARE PART A AND B MEDICAID [place] Advance Directives For more information, please contact: [phone] * Full Code (Latest Code Status on File) Date Activated Date Inactivated Comments 04/18/2021 12:14 PM 04/20/2021 6:57 PM Care Teams Accounting Manager Controller Relationship Specialty Start Date End Date Bentley Kyle MD [address] [place] [address] PCP - General Internal Medicine 04/18/21
--- NOTE | 2024-12-04 19:26 | ECG_ITS ---
Test Date: 2024-12-04 19:32:09 Measurements Intervals [place] Rate: 112 P: 70 HI: 147 QRS: 59 QRSD: 95 T: 80 QT: 319 QTc: 437 Interpretive Statements SINUS TACHYCARDIA WITH FREQUENT VENTRICULAR PREMATURE COMPLEXES BASELINE ARTIFACT- I, II, III, AVR, AVL ABNORMAL ECG Compared to ECG 11/27/2024 10:19:29 No significant changes Electronically Signed On 12-05-2024 06:31:17 VEHICLE OPERATOR TECHNICIAN by Jeremy Ibarra D.O.
--- NOTE | 2024-12-04 19:48 | ED.GENADULT ---
HPI - General Adult General Chief complaint: Shortness of Breath/Dyspnea Stated complaint: Shortness of breath Time Seen by Provider: 12/04/24 19:37 History of Present Illness HPI narrative: Patient is a 64-year-old male who presents to the emergency department this evening complaining of worsening shortness of breath. Patient admits that he has a history of COPD and does wear oxygen 3 L nasal cannula at all times. Patient states that he was recently seen here last Saturday for these respiratory symptoms and his shortness of breath and a CT was obtained revealing enlarged thyroid. Patient was discharged but informed that if his breathing does not improve that he needs to come back to the emergency department. states that he is just very uncomfortable at home and feels that he has a lot of chest congestion and is unable to cough up some of the phlegm. She feels as though he needs to be admitted. Patient denies any additional symptoms or concerns at this time. Related Data Home Medications ?Medication ?Instructions ?Recorded ?Confirmed ?Last Taken ?Type hydrocodone 5 mg-acetaminophen 325 1 tablet PO Q6H PRN Pain 05/22/22 08/11/24 10/29/23 08:00 History mg tablet latanoprost 0.005 % eye drops 1 drp EACH EYE DAILY 11/20/22 08/11/24 10/29/23 History lidocaine 5 % topical patch 2 patch topical DAILY 10/29/23 08/11/24 10/29/23 History omeprazole 20 mg capsule,delayed 20 mg PO DAILY 10/29/23 08/11/24 Unknown History release fluticasone furoate 100 1 inh inhalation Q24H 08/06/24 08/11/24 Unknown History mcg-vilanterol 25 mcg/dose inhalation powder (Breo Ellipta) Allergies Allergy/AdvReac Type Severity Reaction Status Date / Time oxycodone AdvReac Itching Verified 12/04/24 19:25 Review of Systems Review of Systems: All systems are reviewed and are negative unless stated otherwise in the HPI. [facility] Past Medical History Medical History BPH (benign prostatic hyperplasia) Hiatal hernia Chronic deep vein thrombosis (DVT) Linear echogenic filling defect in the right femoral vein, likely chronic thrombus on venous dopplers 11/2020. Gastroesophageal reflux disease Chronic respiratory failure with hypoxia, on home oxygen therapy Pneumonia COPD with emphysema Chronic steroid therapy, 10 milligrams prednisone daily. Osteoarthritis Surgical History Surgical History S/P respiratory system surgery placement of Sherman/endobronchial valves - [facility] H/O colonoscopy History of lung surgery History of bilateral cataract extraction Family History Family History Father Acute myocardial infarction Congestive heart failure Lung cancer Mother Diabetes mellitus Dementia Sibling Diabetes mellitus Lung cancer Social History Social History Social History: Surrogate decision maker: [place], . Code status: Full code. Smoking packs per day: 1 Smoking cigarettes per day: 20.0 Years smoked: 48 Smoking pack-years: 48.00 Smoking status: Former smoker Tobacco type: cigarettes Second hand tobacco smoke exposure: Yes Additional smoking assessment comments: pt used to smoke cigarettes and crack cocaine for 38 years Quit december 2017 Alcohol intake: current Drinks per week: 2 Alcohol use details: Patient currently drinks 2 beers and a shot on the weekends Substance use: former Substance use type: crack/cocaine Do You Feel Safe in your Home?: Yes Lack of Transportation: No Lack of Food: Never True Current Housing: I Have Housing Concerned About Future Housing: No Difficulty Paying Gas/Electric Bills: No Difficulty Paying for Meds: No Currently Unemployed: No Education: Decline to Answer Difficulty w/ Childcare or Family Care: No Living arrangements: with family Additional living arrangements comments: Patient lives with his in [place]. 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 Gender identity (if verbalized by the patient): Male Sexual Orientation (if Verbalized by the Patient): Straight or Heterosexual Spiritual care concerns: No Exam Narrative: General: Alert, awake, afebrile, in no acute distress, anxious. HEENT: PERRL, no rhinorrhea, no post nasal drip, oropharynx clear. Neck: Trachea midline, no JVD, no lymphadenopathy. Cardiovascular: Tachycardic with regular rhythm, no murmurs, rubs or gallops, no peripheral edema. Respiratory: Diffuse wheezing bilaterally, tachypnea, mild respiratory distress. Abdomen: Soft, nontender, nondistended, no rebound, no guarding, no peritoneal signs. Musculoskeletal: No joint swelling or deformity, normal muscle tone. Skin: No rashes or petechia, no signs of infection. Psychiatric: Alert and oriented, normal behavior and judgment for situation. Neurological: Alert and oriented to person, place, and time. Follows all commands. No focal deficits, speech is clear and fluent. Course Vital Signs Vital signs: Vital Signs Temperature 98.5 F 12/04/24 19:19 Pulse Rate 123 H 12/04/24 19:19 Respiratory Rate 34 H 12/04/24 19:19 Blood Pressure 144/121 H 12/04/24 19:19 Pulse Oximetry 96 12/04/24 19:19 Oxygen Delivery Nasal Cannula 12/04/24 19:19 Oxygen Flow Rate 3 12/04/24 19:19 Temperature 98.5 F 12/04/24 19:19 Pulse Rate 110 H 12/04/24 22:00 Respiratory Rate 21 H 12/04/24 22:00 Blood Pressure 123/69 12/04/24 22:00 Pulse Oximetry 96 12/04/24 22:00 Oxygen Delivery Room Air 12/04/24 20:00 Oxygen Flow Rate 3 12/04/24 19:19 Medical Decision Making MDM Narrative Medical decision making narrative: The patient was evaluated by myself in the emergency department. History is obtained from patient who is an independent historian and physical exam was performed. External medical records were reviewed at this time. IV was established and pertinent tests were ordered. Patient was administered 1 L IV fluid bolus with normal saline, an hour long DuoNeb breathing treatment, 125 mg of IV Solu-Medrol, 4 mg of IV Zofran and 4 mg IV morphine. EKG was obtained which revealed sinus tachycardia with frequent PVCs at a rate of 112 beats per Min. No evidence of acute ischemia. EKG was independently interpreted by me and is currently pending official cardiology read. Laboratory results obtained revealing no acute process. Viral swabs were noted to be negative for COVID/influenza/RSV. Imaging studies obtained included CXR which was independently interpreted by me revealing: IMPRESSION: 1. Emphysema. 2. 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 On repeat assessment the patient, patient still has bilateral wheezing although slightly improved from initial presentation. Patient was started on IV Rocephin and azithromycin for his COPD exacerbation. Differential diagnosis considerations include COPD exacerbation, infectious process such as pneumonia, anxiety. Comorbidities impacting this visit include history of COPD. I have evaluated and discussed social determinants of health with the patient that could potentially impact subsequent diagnosis and treatment plans. On repeat assessment of the patient, reevaluation revealed that the patient is doing well and is in no acute distress. Patient symptoms have improved since he arrived to our emergency department. Repeat vital signs were all reviewed and noted to be stable. Differential diagnosis and treatment plan were discussed with the patient at bedside. Patient agrees with discussion and after shared medical decision making agrees with admission. All questions were answered to the patient's satisfaction. Case was discussed with the on-call hospitalist Dr. Childers @ [phone] and she accepted admission for COPD exacerbation. Vital Signs Vital Signs: Vital Signs Temperature 98.5 F 12/04/24 19:19 Pulse Rate 123 H 12/04/24 19:19 Respiratory Rate 34 H 12/04/24 19:19 Blood Pressure 144/121 H 12/04/24 19:19 Pulse Oximetry 96 12/04/24 19:19 Oxygen Delivery Nasal Cannula 12/04/24 19:19 Oxygen Flow Rate 3 12/04/24 19:19 Temperature 98.5 F 12/04/24 19:19 Pulse Rate 110 H 12/04/24 22:00 Respiratory Rate 21 H 12/04/24 22:00 Blood Pressure 123/69 12/04/24 22:00 Pulse Oximetry 96 12/04/24 22:00 Oxygen Delivery Room Air 12/04/24 20:00 Oxygen Flow Rate 3 12/04/24 19:19 Lab Data 12/04/24 20:32 12/04/24 20:31 Labs: Lab Results 12/04/24 12/04/24 12/04/24 Range/Units 20:31 20:32 22:53 WBC 8.3 (4.5-10.0) K/mm3 RBC 4.41 L (4.6-6.20) M/mm3 Hgb 14.0 (14.0-18.0) g/dL Hct 42.3 (42.0-52.0) % MCV 95.9 (80-100) fl MCH 31.7 (26-34) pg MCHC 33.1 (32-36) g/dl RDW 14.2 (11.5-14.5) % Plt Count 315 (150-375) k/mm3 MPV 10.3 (7.4-10.4) fl Immature Gran % (Auto) 0.4 (0-0.5) % Neut % (Auto) 66.1 (45.5-73.1) % Lymph % (Auto) 21.1 (18.3-44.2) % [place] % (Auto) 10.1 H (2.6-8.5) % Eos % (Auto) 1.8 (0-4.4) % Baso % (Auto) 0.5 (0.2-1.2) % Lymph # (Auto) 1.75 (0.9-3.2) K/mm3 [place] # (Auto) 0.8 H (0.1-0.6) K/mm3 Eos # (Auto) 0.2 (0-0.3) K/mm3 Baso # (Auto) 0.0 (0.0-0.1) K/mm3 Abs Immat Gran (auto) 0.03 (0.00-0.031) K/mm3 Absolute Neuts (auto) 5.5 (1.3-6.7) K/mm3 Absolute Nucleated RBC 0.000 (0.0-0.012) K/mm3 Nucleated RBC % 0.0 (0.0-0.2) % PT 13.6 (11.1-14.7) Seconds INR 1.0 APTT 26.3 (22.3-36.8) Seconds Sodium 140 (137-145) mmol/L Potassium 3.6 (3.4-5.0) mmol/L Chloride 101 (98-107) mmol/L Carbon Dioxide 28 (22-30) mmol/L Anion Gap 11 (4-12) mmol/L BUN 10 (9-20) mg/dL Creatinine 0.68 L (0.7-1.3) mg/dL Estim Creat Clear Calc 108 ml/min Estimated GFR > 60 (59 - ) Glucose 77 (65-110) mg/dL Calcium 9.5 (8.4-10.2) mg/dL Magnesium 2.0 (1.6-2.3) mg/dL Total Bilirubin 1.2 (0.2-1.3) mg/dL AST 28 (17-59) U/L ALT 30 (6-50) U/L Alkaline Phosphatase 79 (38-126) U/L Troponin I < 0.012 Pending (0.000-0.034) ng/mL Total Protein 7.0 (6.3-8.2) g/dL Albumin 4.0 (3.5-5.1) g/dL Lipase 26 (23-300) U/L TSH (Reflex) 0.873 (0.465-4.68) uIU/mL Influenza A (RT-PCR) Negative (Negative) Influenza B (RT-PCR) Negative (Negative) RSV (RT-PCR) Negative (Negative) SARS-CoV-2 RNA (RT-PCR) Negative (Negative) Discharge Plan Discharge Clinical Impression: Acute exacerbation of chronic obstructive pulmonary disease, Acute cough Patient Disposition: Still a Patient Condition: Improved Patient Language: French Prescriptions: No Action fluticasone furoate-vilanterol [Breo Ellipta] 100-25 mcg/dose blister with device 1 inh inhalation Q24H benzonatate 200 mg capsule 200 mg PO TID PRN (Reason: cough) Qty: 60 2RF Abrysvo (PF) 120 mcg/0.5 mL recon soln 0.5 ml IM ONCE Qty: 1 0RF Rx Instructions: as a single dose hydrocodone-acetaminophen 5-325 mg Tablet 1 tablet PO Q6H PRN (Reason: Pain) latanoprost 0.005 % drops 1 drp EACH EYE DAILY aspirin [Children's Aspirin] 81 mg Tablet,Chewable 81 mg PO DAILY@0800 30 Days Qty: 30 0RF omeprazole 20 mg capsule,delayed release(DR/EC) 20 mg PO DAILY lidocaine 5 % Adhesive Patch,Medicated 2 patch TOPICAL DAILY Rx Instructions: leave on most painful area for up to 12 hrs. Apply to back doxycycline hyclate 100 mg capsule 100 mg PO BID Qty: 20 0RF prednisone 20 mg tablet 40 mg PO DAILY 5 Days Qty: 10 0RF prednisone 20 mg tablet 40 mg PO DAILY 5 Days Qty: 10 0RF Rx Instructions: take starting 09/25/24, before 9am when possible azithromycin 250 mg tablet See Rx Instructions .ROUTE .COMPLEX Qty: 6 0RF Rx Instructions: For 250 mg dose pack: take 500 mg today (day 1), then 250 mg for 4 days (days 2-5) doxycycline monohydrate 100 mg capsule 100 mg PO BID Qty: 14 0RF prednisone 50 mg tablet 50 mg PO DAILY Qty: 5 0RF albuterol sulfate 90 mcg/actuation HFA aerosol inhaler 1 inh inhalation QID PRN (Reason: shortness of breath or wheezing) Qty: 6.7 0RF ondansetron 4 mg tablet,disintegrating 4 mg PO Q8H Qty: 14 0RF albuterol sulfate 2.5 mg /3 mL (0.083 %) solution for nebulization 2.5 mg inhalation Q6H PRN (Reason: Shortness Of Breath Or Wheezing) Qty: 360 5RF ipratropium bromide 0.02 % solution 2.5 ml inhalation Q6H PRN (Reason: shortness of breath or wheezing) Qty: 300 5RF roflumilast 500 mcg tablet See Rx Instructions .ROUTE .COMPLEX Qty: 30 11RF Dose Instruction: TAKE 1 TABLET BY MOUTH DAILY Rx Instructions: TAKE 1 TABLET BY MOUTH DAILY mupirocin 2 % ointment 1 applic topical BID-TID Qty: 22 3RF Rx Instructions: apply to nares albuterol sulfate 90 mcg/actuation HFA aerosol inhaler 1 - 2 puff inhalation Q4-6H PRN (Reason: shortness of breath or wheezing) Qty: 8.5 3RF fluticasone propionate 50 mcg/actuation spray,suspension See Rx Instructions .ROUTE .COMPLEX Qty: 16 10RF Dose Instruction: INSTILL ONE (1) SPRAY IN EACH NOSTRIL TWICE DAILY NEEDED Rx Instructions: INSTILL ONE (1) SPRAY IN EACH NOSTRIL TWICE DAILY NEEDED prednisone 5 mg tablet 5 mg PO DAILY Qty: 30 5RF lorazepam [Ativan] 0.5 mg tablet 0.5 mg PO BID PRN (Reason: anxiety) Qty: 30 0RF azithromycin 500 mg tablet See Rx Instructions .ROUTE .COMPLEX Qty: 13 5RF Dose Instruction: TAKE 1 TABLET BY MOUTH ON MONDAYS, WEDNESDAYS, AND FRIDAYS. Rx Instructions: TAKE 1 TABLET BY MOUTH ON MONDAYS, WEDNESDAYS, AND FRIDAYS. promethazine-DM 6.25-15 mg/5 mL syrup 5 ml PO Q6H PRN (Reason: cough) Qty: 118 1RF Rx Instructions: TAKE 5ML'S BY MOUTH EVERY 6 HOURS NEEDED FOR COUGH DIRECTED Follow-up/Referrals: UNKNOWN,DOCTOR [Primary Care Provider] -
[2024-12-04] MEDS: IPRATROPIUM BR 0.02% INH SOLN 0.5 MG/2.5 ML VIAL 2 MG INHALATION (20:00)
[2024-12-04] MEDS: ALBUTEROL SULFATE NEB 2.5 MG/3 ML INH 10 MG INHALATION (20:00)
[2024-12-04 20:15] VITALS: PULSE 108; RESP 18
[2024-12-04] MEDS: methylPREDNISolone SOD SUCC 125 MG VIAL IV PUSH (20:30)
[2024-12-04] MEDS: ASPIRIN 81 MG CHEWABLE TABLET 324 MG PO (20:30)
[2024-12-04] MEDS: MORPHINE SULFATE (*CRX) 4 MG/ML INJ IV PUSH (20:30)
[2024-12-04] MEDS: SODIUM CHLORIDE 0.9% IV 1,000 ML 999 ML IV CONT (20:30)
[2024-12-04] MEDS: ONDANSETRON INJ 4 MG/2 ML VIAL IV PUSH (20:31)
--- OUTSIDE RECORDS SUMMARY | 2024-12-04 20:32 | XMS_ITS | CONTINUITY OF CARE DOCUMENT ---
Author Name jose juan manzano Address Unknown Organization [facility] Address [address] [place] [address] Phone [phone] Care Team Providers Care Metal Fitters And Machinists Name Role Phone Randy Wynne MD Unavailable OLIVIA SAUNDERS MD Unavailable JEAN FINCH MD Unavailable INSURANCE PROVIDERS Payer name Policy type / Coverage type [place] red constitution party ID HEALTHCARE AND FAMILY SERVICES Medicaid 1 [id number]
--- OUTSIDE RECORDS SUMMARY | 2024-12-04 20:33 | XMS_ITS | Clinical Summary ---
Author Organization [facility] Address [address] [place] [address] Phone Care Team Providers Care Tenter Frame Operator Name Role Phone Bentley Kyle MD Primary Care Provider [phone] Allergies Active Allergy Reactions Criticality Noted Date [...] bronchoscopy Immunizations Immunization Administration Dates Next Due ([employer])(12 YR UP) COVID-19 VACCINE - EMERGENCY USE AUTHORIZATION, MRNA, [id number](PF) 30 MCG/0.3 ML IM SUSP 01/10/2021 Influenza Seasonal Unspecified Formulation IM Social History Tobacco Use Types Packs/Day Years Used Date Smoking Tobacco: Never Smokeless Tobacco: Never Sex and Gender Information Value Date Recorded Sex Assigned at Not on file Legal Sex Male 3:05 PM SEISMOGRAPH OPERATOR Gender Identity Not on file Sexual Orientation Not on file Last Filed Vital Signs Vital Sign Reading Time Taken Comments Blood Pressure 130/80 11/21/2021 1:06 PM SEISMOGRAPH OPERATOR Pulse 87 11/21/2021 1:06 PM SEISMOGRAPH OPERATOR Temperature 37.2 C (98.9 F) 04/20/2021 11:16 AM CDT Respiratory Rate 18 04/20/2021 3:29 PM CDT Oxygen Saturation 91% 11/21/2021 1:06 PM SEISMOGRAPH OPERATOR 3 L Inhaled Oxygen Concentration - - Weight 116.1 kg (256 lb) 11/21/2021 1:06 PM SEISMOGRAPH OPERATOR Height 175.3 cm (5' 9 ) 11/21/2021 1:06 PM SEISMOGRAPH OPERATOR Body Mass Index 37.8 11/21/2021 1:06 PM SEISMOGRAPH OPERATOR Plan of Treatment Health Maintenance Due Date [...] Insurance MEDICARE PART A AND B MEDICAID [place] Advance Directives For more information, please contact: [phone] * Full Code (Latest Code Status on File) Date Activated Date Inactivated Comments 04/18/2021 12:14 PM 04/20/2021 6:57 PM Care Teams Tenter Frame Operator Relationship Specialty Start Date End Date Bentley Kyle MD [address] [place] [address] PCP - General Internal Medicine 04/18/21
--- OUTSIDE RECORDS SUMMARY | 2024-12-04 20:33 | XMS_ITS | Referral Summary ---
Author Organization [facility] [address] Address [address] [place] [address] Care Team Providers Care Librarian Special Collections Name Role Phone Aristeo Khan MD Primary Care Provider [phone] Ravi Queen MD Unavailable [phone] Encounters Date Type Department Care Team Description 12/01/2024 8:22 AM FUTURES TRADER - 12/01/2024 11:59 PM FUTURES TRADER Hospital Encounter [facility] [address] [facility] A, Shay. 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 [address] [place] [address] Liudmila Espinoza RN from Last 3 Months [...] 06/28/2022 Insomnia secondary to chronic pain 06/28/2022 [facility] (current) use of opiate analgesic 06/14 Resolved [...] on file Legal Sex Male 8:01 PM FUTURES TRADER Gender Identity Not on file Sexual Orientation Not on file Last Filed Vital Signs Vital Sign Reading Time Taken Comments Blood Pressure 142/82 09/01/2024 9:08 AM FUTURES TRADER Pulse 85 09/01/2024 9:08 AM FUTURES TRADER Temperature 36.9 C (98.5 F) 04/02/2024 12:40 PM CDT Respiratory Rate 22 09/01/2024 9:08 AM FUTURES TRADER Oxygen Saturation 95% 09/01/2024 9:08 AM FUTURES TRADER Inhaled Oxygen Concentration - - Weight 111.1 [...] Comments PSA SCREEN Routine 09/27/2022 10:21 AM FUTURES TRADER from Last 3 Months or Most Recently Relevant to Health Maintenance Results * PSA screen (09/27/2022 10:21 AM FUTURES TRADER) PSA-Total 0.70 <=5.40 ng/mL TALIB Comment: Interpretive [...] revised 22. Blood 09/27/2022 10:2 1 AM FUTURES TRADER 09/27/2022 10:44 AM FUTURES TRADER Aristeo Khan MD LAB BLOOD ORDERABLES Final Result [facility] [address] [facility] Department [place] [address] from Last 3 Months or Most Recently Relevant to Health Maintenance Insurance MEDICARE [place] MEDICARE [facility] OTHER Address: [address] [place] [address] [employer] Care Teams Librarian Special Collections Relationship Specialty Start Date End Date Aristeo Khan MD [address] [place] [address] PCP - General 06/28/22 Ravi Queen MD [address] [facility] [address] [place] [address] Anesthesiologist Pain Management 09/05/22
--- OUTSIDE RECORDS SUMMARY | 2024-12-04 20:33 | XMS_ITS | Clinical Summary ---
Author Organization [facility] Address [address] [place] [address] Phone Care Team Providers Care Canine Service Instructor Trainer Name Role Phone Bentley Kyle MD Primary Care Provider [phone] Medications PAIN & FEVER EXTRA STRENGTH 500 [...] age to complete this topic Insurance MEDICAID [place] MEDICARE Care Teams Canine Service Instructor Trainer Relationship Specialty Start Date End Date Bentley Kyle MD [address] [place] [address] PCP - General Internal Medicine 02/01/21
--- OUTSIDE RECORDS SUMMARY | 2024-12-04 20:33 | XMS_ITS | Clinical Summary ---
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 [address] [place] [address] Liudmila Espinoza RN from Last 3 Months [...] on file Legal Sex Male 8:01 PM STYLIST ASSISTANT Gender Identity Not on file Sexual Orientation Not on file Obstetrics History Last Filed Vital Signs Vital Sign Reading Time Taken Comments Blood Pressure 142/82 09/01/2024 9:08 AM STYLIST ASSISTANT Pulse 85 09/01/2024 9:08 AM STYLIST ASSISTANT Temperature 36.9 C (98.5 F) 04/02/2024 12:40 PM CDT Respiratory Rate 22 09/01/2024 9:08 AM STYLIST ASSISTANT Oxygen Saturation 95% 09/01/2024 9:08 AM STYLIST ASSISTANT Inhaled Oxygen Concentration - - Weight 111.1 [...] Comments PSA SCREEN Routine 09/27/2022 10:21 AM STYLIST ASSISTANT from Last 3 Months or Most Recently Relevant to Health Maintenance Results * PSA screen (09/27/2022 10:21 AM STYLIST ASSISTANT) PSA-Total 0.70 <=5.40 ng/mL [facility] Comment: Interpretive [...] revised 22. Blood 09/27/2022 10:2 1 AM STYLIST ASSISTANT 09/27/2022 10:44 AM STYLIST ASSISTANT us Aristeo Khan MD LAB BLOOD ORDERABLES Final Result [facility] [address] [facility] Department [place] [address] from Last 3 Months or Most Recently Relevant to Health Maintenance Insurance MEDICARE [employer] MEDICARE [facility] Address: [address] [address] [place] [address] [facility] MEDICARE SOLUTIONS [employer] MED[employer]ARE [employer] Care Teams Log Rafter Relationship Specialty Start Date End Date Aristeo Khan MD [address] [place] [address] PCP - General 06/28/22 Ravi Queen MD 2 [facility] [address] [address] Anesthesiologist Pain Management 09/05/22
[2024-12-04 20:39] LABS: Basophils Percent Auto 0.5 % (0.2-1.2); Eosinophils Absolute Auto 0.2 K/mm3 (0-0.3); Eosinophils Percent Auto 1.8 % (0-4.4); Hematocrit 42.3 % (42.0-52.0); Immature Granulocyte Absolute 0.03 K/mm3 (0.00-0.031); Immature Granulocyte Percent A 0.4 % (0-0.5); Lymphocytes Absolute Auto 1.75 K/mm3 (0.9-3.2); Lymphocytes Percent Auto 21.1 % (18.3-44.2); Mean Corpuscular HGB Conc 33.1 g/dl (32-36); Mean Corpuscular Hemoglobin 31.7 pg (26-34); Mean Corpuscular Volume 95.9 fl (80-100); Mean Platelet Volume 10.3 fl (7.4-10.4); Monocytes Absolute Auto 0.8 K/mm3 (0.1-0.6); Monocytes Percent Auto 10.1 % (2.6-8.5); Neutrophils Absolute Auto 5.5 K/mm3 (1.3-6.7); Neutrophils Percent Auto 66.1 % (45.5-73.1); Platelet Count Result 315 k/mm3 (150-375); Red Blood Count 4.41 M/mm3 (4.6-6.20); Red Cell Distribution Width 14.2 % (11.5-14.5); White Blood Count 8.3 K/mm3 (4.5-10.0)
[2024-12-04 20:45] VITALS: BP 132/118; PULSE 113; RESP 20; O2SAT 100
[2024-12-04 20:57] LABS: Alanine Aminotransferase 30 U/L (6-50); Alkaline Phosphatase 79 U/L (38-126); Anion Gap 11 mmol/L (4-12); Aspartate Amino Transferase 28 U/L (17-59); Bilirubin,Total 1.2 mg/dL (0.2-1.3); Blood Urea Nitrogen 10 mg/dL (9-20); Calcium 9.5 mg/dL (8.4-10.2); Carbon Dioxide 28 mmol/L (22-30); Chloride 101 mmol/L (98-107); Estimated CRCL calculation 108 ml/min; Estimated Glomerular Filt Rate > 60; Glucose 77 mg/dL (65-110); Lipase 26 U/L (23-300); Potassium 3.6 mmol/L (3.4-5.0); Sodium 140 mmol/L (137-145)
[2024-12-04 20:59] LABS: Partial Thromboplastin Time 26.3 Seconds (22.3-36.8); Prothrombin Time 13.6 Seconds (11.1-14.7)
[2024-12-04 21:08] LABS: Troponin I < 0.012 ng/mL (0.000-0.034)
[2024-12-04 21:14] LABS: Influenza A QL RT-PCR Negative (Negative); Influenza B QL RT-PCR Negative (Negative); RSV RNA, RT-PCR Negative (Negative); SARS-CoV-2 RNA PCR Negative (Negative)
[2024-12-04 21:15] VITALS: BP 134/89; PULSE 114; RESP 18; O2SAT 100
[2024-12-04 21:27] LABS: Thyroid Stimulating Hormone Reflex 0.873 uIU/mL (0.465-4.68)
[2024-12-04 21:50] VITALS: PULSE 97; RESP 18
[2024-12-04 22:00] VITALS: BP 123/69; PULSE 110; RESP 21; O2SAT 96
--- NOTE | 2024-12-04 23:16 | PC.NURSE ---
Report to Edi LEYVA
[2024-12-04 23:22] LABS: Troponin I < 0.012 ng/mL (0.000-0.034)
[2024-12-04] MEDS: AZITHROMYCIN 500 MG/NS 250 ML 500 MG/250 ML BAG 250 MG IVPB (23:56)
[2024-12-04] MEDS: KETOROLAC 15 MG/ML VIAL (*BKC) IV PUSH (23:56)
[2024-12-05] VITALS (15 sets, daily range): BP systolic 116–146; BP diastolic 70–88; PULSE 69–109; RESP 14–24; TEMP 36.3–37.1; O2SAT 95–100; BMI 29.5
[2024-12-05] MEDS: MELATONIN 5 MG TABLET PO ×2 (00:22→20:50)
--- NOTE | 2024-12-05 00:55 | ADMGEN ---
This patient, Bentley Mesa, was admitted to [facility] Surg Room 331-02. Patient/family oriented to hospital policies and general routines including ID bracelet, bed and alarms, visiting hours, pain management, procedures, bathroom and other care routines, personal items, smoking policy, room service/diet, and visiting hours. Information on how to activate the Rapid Response Team has been discussed. Patient/Family are encouraged to report perceived risks to care and to ask questions if they do not understand what they are told or what they should do.
[2024-12-05 02:10] LABS: Troponin I < 0.012 ng/mL (0.000-0.034)
--- NOTE | 2024-12-05 05:39 | P.HP_ITS ---
H&P: HPI History of Present Illness Date/Time: 12/05/24 04:25 Chief Complaint: Worsening shortness of breath Narrative: 64-year-old male with a past medical history of COPD on chronic home O2 of 3 L, hypertension, chronic pain and GERD who presented to the ER via private vehicle due to shortness of breath. Patient is on chronic steroid therapy at 5 mg a day. The patient reports improvement in his symptoms when he was on the 50 mg of prednisone prescribed 01 of December when he came to the ER. But once the steroid treatment finished within a day or 2 he started having increasing shortness of breath and chest tightness. He denied any fevers or chills. He is intermittently able to clear some sputum. He reports improvement in his symptoms after IV steroids and hour long treatment in the ER. He is still on his home O2 of 3 L and has not required increased oxygen demand. He is anxious. He reports that his Apresoline was recently discontinued and he was switched to hydroxyzine. He reports hydroxyzine help some much better with sleep. He really likes such rate he does receive in management and outpatient clinic. He reports he is allowed to have [place] every 6 hours as needed for pain. He usually takes it 2 or 3 times a day. He does followed up with his pain management doctor a few days ago. Patient does have a thyroid goiter but has normal TSH. He was reassured that a thyroid goiter is not something life threatening. He was given Rocephin and azithromycin in the ER for treatment of a COPD exacerbation. The patient is usually on azithromycin for chronic suppressive therapy 3 times a week. He denies any fevers or chills. He denies any recent ill contacts. Review of Systems 2 Review of Systems: 12 systems were reviewed with pertinent positives and negatives per HPI. Except as documented in the HPI, all other systems were reviewed and are negative. [facility] Past Medical History Medical History Vitamin D deficiency Pulmonary embolism Two thousand twenty-one BPH (benign prostatic hyperplasia) Hiatal hernia Chronic deep vein thrombosis (DVT) Linear echogenic filling defect in the right femoral vein, likely chronic thrombus on venous dopplers 11/2020. Gastroesophageal reflux disease Chronic respiratory failure with hypoxia, on home oxygen therapy Pneumonia COPD with emphysema Chronic steroid therapy, 5 milligrams prednisone daily. Osteoarthritis Surgical History Surgical History S/P respiratory system surgery placement of Thayer/endobronchial valves - [facility] H/O colonoscopy History of lung surgery History of bilateral cataract extraction Family History Family History Father Acute myocardial infarction Congestive heart failure Lung cancer Mother Diabetes mellitus Dementia Sibling Diabetes mellitus Lung cancer Social History Social History Social History: Surrogate decision maker: Sloane Mesa, . Code status: Full code. 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 Quit december 2017 Alcohol intake: current Drinks per week: 1 Alcohol use details: Patient currently drinks 2 beers and a shot on the weekends Substance use: former Substance use type: crack/cocaine Do You Feel Safe in your Home?: Yes Lack of Transportation: No Lack of Food: Never True Current Housing: I Have Housing Concerned About Future Housing: No Difficulty Paying Gas/Electric Bills: No Difficulty Paying for Meds: No Currently Unemployed: No Education: High School Diploma/GED Difficulty w/ Childcare or Family Care: No Living arrangements: with family Additional living arrangements comments: Patient lives with his in [place]. 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 Gender identity (if verbalized by the patient): Male Sexual Orientation (if Verbalized by the Patient): Straight or Heterosexual Spiritual care concerns: No Meds Home Medications and Allergies Home Medications ?Medication ?Instructions ?Recorded ?Confirmed ?Type hydrocodone 5 mg-acetaminophen 325 1 tablet PO Q6H PRN Pain 05/22/22 12/05/24 History mg tablet latanoprost 0.005 % eye drops 1 drp EACH EYE DAILY 11/20/22 12/05/24 History aspirin 81 mg chewable tablet 81 mg PO DAILY@0800 30 days #30 12/10/22 12/05/24 Rx (Children's Aspirin) tabs albuterol sulfate 2.5 mg/3 mL 2.5 mg (3 mL) inhalation Q6H PRN 07/24/23 12/05/24 Rx (0.083 %) solution for nebulization Shortness Of Breath Or Wheezing #360 mL ipratropium bromide 0.02 % 2.5 ml inhalation Q6H PRN 08/01/23 12/05/24 Rx solution for inhalation shortness of breath or wheezing #300 mL omeprazole 20 mg capsule,delayed 20 mg PO DAILY 10/29/23 12/05/24 History release roflumilast 500 mcg tablet See Rx Instructions .Route 03/17/24 12/05/24 Rx .COMPLEX #30 tabs mupirocin 2 % topical ointment 1 applic topical BID-TID #22 grams 03/18/24 12/05/24 Rx albuterol sulfate 90 mcg/actuation 1 - 2 puff inhalation Q4-6H PRN 05/05/24 12/05/24 Rx aerosol inhaler shortness of breath or wheezing #8.5 grams fluticasone propionate 50 See Rx Instructions .Route 08/03/24 12/05/24 Rx mcg/actuation nasal .COMPLEX #16 grams spray,suspension benzonatate 200 mg capsule 200 mg PO TID PRN cough #60 caps 08/06/24 12/05/24 Rx fluticasone furoate 100 1 inh inhalation Q24H 08/06/24 12/05/24 History mcg-vilanterol 25 mcg/dose inhalation powder (Breo Ellipta) prednisone 5 mg tablet 5 mg PO DAILY #30 tabs 09/02/24 12/05/24 Rx azithromycin 500 mg tablet See Rx Instructions .Route 11/13/24 12/05/24 Rx .COMPLEX #13 tabs promethazine-DM 6.25 mg-15 mg/5 mL 5 ml PO Q6H PRN cough #118 mL 11/20/24 12/05/24 Rx oral syrup ondansetron 4 mg disintegrating 4 mg PO Q8H #14 tabs 11/27/24 12/05/24 Rx tablet hydroxyzine HCl 25 mg tablet 25 mg PO TID PRN anxiety 12/05/24 12/05/24 History Allergies Allergy/AdvReac Type Severity Reaction Status Date / Time oxycodone AdvReac Itching Verified 12/04/24 19:25 Vital Signs Vital Signs - 24 hr 12/04/24 19:19 12/04/24 20:00 12/04/24 20:15 Temperature 98.5 F Pulse Rate 123 H 108 H Respiratory Rate 34 H 18 Blood Pressure 144/121 H Pulse Oximetry 96 Oxygen Delivery Nasal Cannula Room Air Oxygen Flow Rate 3 12/04/24 20:45 12/04/24 21:15 12/04/24 21:50 Temperature Pulse Rate 113 H 114 H 97 Respiratory Rate 20 18 18 Blood Pressure 132/118 H 134/89 Pulse Oximetry 100 100 Oxygen Delivery Oxygen Flow Rate 12/04/24 22:00 12/05/24 00:00 12/05/24 00:38 Temperature Pulse Rate 110 H 95 Respiratory Rate 21 H 24 H Blood Pressure 123/69 116/79 Pulse Oximetry 96 95 98 Oxygen Delivery Nasal Cannula Oxygen Flow Rate 3 12/05/24 00:41 12/05/24 01:06 12/05/24 01:34 Temperature 97.6 F Pulse Rate 91 71 Respiratory Rate 19 14 Blood Pressure 125/71 141/70 H Pulse Oximetry 97 100 96 Oxygen Delivery Nasal Cannula Oxygen Flow Rate 3 Exam 2 Narrative: Weight 90.5 kg BMI 29.5 Const: Other: No acute distress, well-developed well-nourished, sitting up on the side of the bed HENMT: Other: Mucous membranes are moist, no oral pharyngeal erythema, head is normocephalic atraumatic, nasal cannula in place Eyes: Other: Pupils are equal but there is pupillary deficits in the right eye from prior glaucoma surgery, he reports poor vision in the right eye compared to left Neck: Other: No JVD, nodular thyroid gland Resp: Other: End-expiratory wheezing bilateral posterior lung shoemaker, no increased work of breathing Cardio: Other: Regular rate, regular rhythm, 2+ bilateral radial pedal pulses, no murmur GI: Other: Soft, nontender, nondistended, positive bowel sounds Skin: Other: No jaundice, no pallor Neuro: Other: Alert oriented x4, speech is clear, no facial asymmetry, no localizing neurologic deficits noted during the course of conversation Extrem: Other: No clubbing, cyanosis or edema Psych: Other: Mildly anxious, pleasant, cooperative, fair judgment and insight H&P: Results Labs Labs: Laboratory Tests 12/04/24 20:32 12/04/24 20:31 12/04/24 12/04/24 12/04/24 20:31 20:32 22:53 WBC 8.3 RBC 4.41 L Hgb 14.0 Hct 42.3 MCV 95.9 MCH 31.7 MCHC 33.1 RDW 14.2 Plt Count 315 MPV 10.3 Immature Gran % (Auto) 0.4 Neut % (Auto) 66.1 Lymph % (Auto) 21.1 [place] % (Auto) 10.1 H Eos % (Auto) 1.8 Baso % (Auto) 0.5 Lymph # (Auto) 1.75 [place] # (Auto) 0.8 H Eos # (Auto) 0.2 Baso # (Auto) 0.0 Abs Immat Gran (auto) 0.03 Absolute Neuts (auto) 5.5 Absolute Nucleated RBC 0.000 Nucleated RBC % 0.0 PT 13.6 INR 1.0 APTT 26.3 Sodium 140 Potassium 3.6 Chloride 101 Carbon Dioxide 28 Anion Gap 11 BUN 10 Creatinine 0.68 L Estim Creat Clear Calc 108 Estimated GFR > 60 Glucose 77 Calcium 9.5 Magnesium 2.0 Total Bilirubin 1.2 AST 28 ALT 30 Alkaline Phosphatase 79 Troponin I < 0.012 < 0.012 Total Protein 7.0 Albumin 4.0 Lipase 26 TSH (Reflex) 0.873 Influenza A (RT-PCR) Negative Influenza B (RT-PCR) Negative RSV (RT-PCR) Negative SARS-CoV-2 RNA (RT-PCR) Negative 12/05/24 01:40 WBC RBC Hgb Hct MCV MCH MCHC RDW Plt Count MPV Immature Gran % (Auto) Neut % (Auto) Lymph % (Auto) [place] % (Auto) Eos % (Auto) Baso % (Auto) Lymph # (Auto) [place] # (Auto) Eos # (Auto) Baso # (Auto) Abs Immat Gran (auto) Absolute Neuts (auto) Absolute Nucleated RBC Nucleated RBC % PT INR APTT Sodium Potassium Chloride Carbon Dioxide Anion Gap BUN Creatinine Estim Creat Clear Calc Estimated GFR Glucose Calcium Magnesium Total Bilirubin AST ALT Alkaline Phosphatase Troponin I < 0.012 Total Protein Albumin Lipase TSH (Reflex) Influenza A (RT-PCR) Influenza B (RT-PCR) RSV (RT-PCR) SARS-CoV-2 RNA (RT-PCR) Impressions Chest X-Ray 12/04/24 19:48 IMPRESSION: 1. Emphysema. 2. 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 EKG: Sinus tachycardia rate 112 frequent premature ventricular complexes a QTC 437 CT of the chest from 11/27/2024 CTA chest PE protocol DATE: 11/27/2024 12:10 INDICATION: Chest pain and dyspnea TECHNIQUE: Computed tomography (CT) pulmonary angiogram of the chest was performed with 100 mL Omnipaque-350 intravenous contrast. Additional 3D reconstructions utilizing coronal maximum intensity projection (MIP) were performed. Automated exposure control and iterative reconstruction technique were employed. The dose-length product was 832.10 mGy-cm. COMPARISON: 02/19/2024 and 02/17/2023 FINDINGS: No pulmonary embolism. Chronic right upper lobe collapse with endobronchial valves in the right upper lobe are segmental bronchi. Chronic mild linear discoid atelectasis/scarring in the bilateral lower lobes, right greater than left. No pneumonia, pulmonary edema, pleural effusion or pneumothorax. Heart size is normal. Atherosclerotic coronary artery calcification is. No pericardial effusion. Thoracic aorta is normal in caliber with no dissection. Multinodular goiter. No pathologically enlarged thoracic lymphadenopathy. A couple 2 mm nonobstructing stones at an upper pole calyx of the right kidney. Mild thoracic spondylosis. IMPRESSION: 1. No pulmonary embolism or other acute cardiopulmonary disease. 2. Moderate emphysema with endobronchial valves in the right upper lobar bronchi with chronic collapse of the right upper lobe. 3. Multinodular goiter. 4. Nonobstructing right nephrolithiasis. All imaging and EKGs personally reviewed and interpreted. And unless stated otherwise agree with radiologic and cardiology interpretation. Assessment and Plan Assessment and plan (1) COPD exacerbation: Code(s): J44.1 - Chronic obstructive pulmonary disease with (acute) exacerbation Status: Acute (2) Chronic respiratory failure with hypoxia, on home oxygen therapy: Code(s): J96.11 - Chronic respiratory failure with hypoxia; Z99.81 - Dependence on supplemental oxygen Status: Chronic (3) Anxiety: Code(s): F41.9 - Anxiety disorder, unspecified Status: Acute (4) Chronic pain syndrome: Code(s): G89.4 - Chronic pain syndrome Status: Acute Plan Patient presents with shortness of breath and chest tightness consistent with history of COPD exacerbation. His symptoms were initially improved with short burst of steroids but then recurred. Given the patient's chronic steroid dependence he likely needs a longer steroid taper on discharge. Will place patient on IV Solu-Medrol q.6 hours currently. The patient remains on his home oxygen and has had not had any increased oxygen requirement. He does follow with pulmonology as outpatient. Will hopefully wean steroids in the next 24-48 hours to oral formulation and possibly discharge home. He will be placed on scheduled nebulizer treatments with albuterol and Atrovent. Will continue home controlling inhalers. Will continue azithromycin to complete a 5 day course. I am not concerned about pneumonia in more so giving azithromycin for potential anti-inflammatory effect. He will continue patient's home pain medications with [place]. Will continue home anxiety medications with hydroxyzine. Otherwise remainder of home medications have been reviewed and reconciled and resumed as appropriate. Quality VTE Prophylaxis VTE prophylaxis: pharmacologic ordered (Lovenox 40 mg subQ daily) Hospitalist [facility] Advance Care Plan I have confirmed that the patient's Advanced Care Plan is present, code status is documented, or surrogate decision maker is listed in patient medical record.: Yes Medication Reconciliation I have utilized all available resources to obtain, update and review the patients current medications (includes all prescriptions, OTC, herbals, cannabis, and nutritional supplements).: Yes
[2024-12-05] MEDS: methylPREDNISolone SOD SUCC 125 MG VIAL 60 MG IV PUSH ×3 (05:47→17:40)
[2024-12-05] MEDS: hydrOXYzine HCL 25 MG TABLET PO ×2 (05:47→20:50)
[2024-12-05] MEDS: IPRATROPIUM BR 0.02% INH SOLN 0.5 MG/2.5 ML VIAL INHALATION ×3 (07:00→19:45)
[2024-12-05] MEDS: ALBUTEROL SULFATE NEB 2.5 MG/3 ML INH 5 MG INHALATION ×3 (07:00→19:45)
[2024-12-05] MEDS: FLUTICASONE/SALMETEROL 115-21 MCG INHALER 1 PUFF 2 PUFF INHALATION ×2 (07:00→19:47)
[2024-12-05] MEDS: ROFLUMILAST 500 MCG TABLET PO (08:30)
[2024-12-05] MEDS: FLUTICASONE PROPIONATE 0.05% NA SPR 16 GM BTL (*BKC) 1 SPRAY NASAL (08:30)
[2024-12-05] MEDS: PANTOPRAZOLE 40 MG TABLET PO (08:31)
[2024-12-05] MEDS: LATANOPROST 0.005% OP SOLN 2.5 ML BTL 1 DROP EACH EYE (08:32)
[2024-12-05] MEDS: ASPIRIN 81 MG CHEWABLE TABLET PO (08:32)
[2024-12-05] MEDS: HYDROcodone/acetaminophen (*CRX) 5-325 MG TABLET 1 TAB PO ×3 (08:37→20:49)
--- NOTE | 2024-12-05 12:26 | PM.IMPN ---
Progress Note: A&P Assessment and Plan (1) COPD exacerbation: Code(s): J44.1 - Chronic obstructive pulmonary disease with (acute) exacerbation Status: Acute (2) Chronic respiratory failure with hypoxia, on home oxygen therapy: Code(s): J96.11 - Chronic respiratory failure with hypoxia; Z99.81 - Dependence on supplemental oxygen Status: Chronic (3) Anxiety: Code(s): F41.9 - Anxiety disorder, unspecified Status: Acute (4) Chronic pain syndrome: Code(s): G89.4 - Chronic pain syndrome Status: Acute Plan This is a 64-year-old male who presented to the ED with complaining of worsening shortness of breath. Patient reports he is on chronic steroid therapy at 5 mg a day. He reported improvement in his symptoms when he was on 50 mg of prednisone prescribed on December 01 when he came to the ER. But once the steroid treatment finished within a day or 2 started having increased shortness of breath and chest tightness. He denies any fever or chills. He reports sputum expectoration which is clear. He has is 3 your oxygen at home and has not required increased oxygen demand. 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 He also has chronic pain for which he takes [place] p.r.n.. 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 Uses fast at home as well. On ED evaluation he was afebrile tachycardic hypertensive oxygen saturation was adequate on 3 L oxygen via nasal cannula. He received DuoNeb treatment and was started on IV Solu Medrol. EKG showed sinus tachycardia with frequent PVCs. Laboratory studies showed WBC of 8.3 hemoglobin 14 platelets 315 Chem panel was unremarkable. Troponin was negative RSV COVID influenza swab was negative TSH was normal lipase is 26. A chest x-ray showed emphysema and chronic collapse of the right upper lung with endobronchial valves. This is a chronic finding. He is admitted for COPD exacerbation and possible pneumonia Acute COPD exacerbation continue with steroid. CTA 11/27/2024 with no pulmonary embolism or acute cardiopulmonary disease moderate emphysema with endobronchial valves in the right upper lobe over bronchi with chronic collapse of the right upper lobe. Multinodular goiter nonobstructing right nephrolithiasis Chronic respiratory failure on home oxygen 3 L via nasal cannula BPH Hiatal hernia Chronic DVT Chronic COPD History of placement of J [place] valves in 2021 Osteoarthritis Anxiety home medication Weight loss 40 lb since September continue to monitor Chronic pain [place] p.r.n. DVT prophylaxis Code status full code Subjective Date/time seen: 12/05/24 12:26 Interval history: He is feeling much better. Still has cough and shortness of breath with exertion. Has longstanding history of COPD Review of Systems Review of Systems: All systems reviewed & are unremarkable except as noted in HPI and below Exam Narrative: General: Alert, awake, afebrile, in no acute distress HEENT: PERRL, no rhinorrhea, no post nasal drip, oropharynx clear. Neck: Trachea midline, no JVD, no lymphadenopathy. Cardiovascular: Regular rate regular rhythm, no murmurs, rubs or gallops, no peripheral edema. Respiratory: Diffuse wheezing bilaterally, coarse breath sound no respiratory distress Abdomen: Soft, nontender, nondistended, no rebound, no guarding, no peritoneal signs. Musculoskeletal: No joint swelling or deformity, normal muscle tone. Skin: No rashes or petechia, no signs of infection. Psychiatric: Alert and oriented, normal behavior and judgment for situation. Neurological: Alert and oriented to person, place, and time. Follows all commands. No focal deficits, speech is clear and fluent. Objective Data Vital Signs Vital Signs: Vital Signs - 24 hr 12/04/24 19:19 12/04/24 20:00 12/04/24 20:15 Temperature 98.5 F Pulse Rate 123 H 108 H Respiratory Rate 34 H 18 Blood Pressure 144/121 H Pulse Oximetry 96 Oxygen Delivery Nasal Cannula Room Air Oxygen Flow Rate 3 12/04/24 20:45 12/04/24 21:15 12/04/24 21:50 Temperature Pulse Rate 113 H 114 H 97 Respiratory Rate 20 18 18 Blood Pressure 132/118 H 134/89 Pulse Oximetry 100 100 Oxygen Delivery Oxygen Flow Rate 12/04/24 22:00 12/05/24 00:00 12/05/24 00:38 Temperature Pulse Rate 110 H 95 Respiratory Rate 21 H 24 H Blood Pressure 123/69 116/79 Pulse Oximetry 96 95 98 Oxygen Delivery Nasal Cannula Oxygen Flow Rate 3 12/05/24 00:41 12/05/24 01:06 12/05/24 01:34 Temperature 97.6 F Pulse Rate 91 71 Respiratory Rate 19 14 Blood Pressure 125/71 141/70 H Pulse Oximetry 97 100 96 Oxygen Delivery Nasal Cannula Oxygen Flow Rate 3 12/05/24 05:09 12/05/24 07:00 12/05/24 07:00 Temperature 97.3 F L Pulse Rate 97 87 87 Respiratory Rate 24 H 18 18 Blood Pressure 137/85 Pulse Oximetry 97 97 Oxygen Delivery Nasal Cannula Oxygen Flow Rate 2 12/05/24 07:10 Temperature Pulse Rate 90 Respiratory Rate 18 Blood Pressure Pulse Oximetry Oxygen Delivery Oxygen Flow Rate Intake/Output Intake/Output: Intake & Output 12/02/24 12/03/24 12/04/24 12/05/24 23:59 23:59 23:59 23:59 Intake Total 1050 550 Balance 1050 550 Meds/Results Medications: Active Medications Generic Name Dose Route Start Last Admin Trade Name Freq PRN Reason Stop Dose Admin Hydrocodone Bitart/Acetaminophen 1 tab 12/05/24 05:36 12/05/24 08:37 Hydrocodone/Acetaminophen (*Crx) 5-325 Mg Tablet PO 1 tab Q6H PRN Administration Pain 7-10 Albuterol 5 mg 12/05/24 05:40 12/05/24 07:00 Albuterol Sulfate Neb 2.5 Mg/3 Ml Inh INHALATION 5 mg Q6HRT DAVIAN Administration Aspirin 81 mg 12/05/24 08:00 12/05/24 08:32 Aspirin 81 Mg Chewable Tablet PO 81 mg DAILY@0800 DAVIAN Administration Azithromycin 250 mg 12/05/24 21:00 Azithromycin 250 Mg Tablet PO 12/08/24 21:01 [facility] Benzonatate 200 mg 12/05/24 05:42 Benzonatate 100 Mg Capsule PO TID PRN cough Fluticasone Propionate 1 spray 12/05/24 09:00 12/05/24 08:30 Fluticasone Propionate 0.05% Na Spr 16 Gm Btl (*Bkc) NASAL 1 spray Q12HR PRN Administration Allergic Symptoms Hydroxyzine HCl 25 mg 12/05/24 05:36 12/05/24 05:47 Hydroxyzine Hcl 25 Mg Tablet PO 25 mg Q8H PRN Administration anxiety Ipratropium [place] 0.5 mg 12/05/24 05:40 12/05/24 07:00 Ipratropium Br 0.02% Inh Soln 0.5 Mg/2.5 Ml Vial INHALATION 0.5 mg Q6HRT DAVIAN Administration Latanoprost 1 drop 12/05/24 09:00 12/05/24 08:32 Latanoprost 0.005% Op Soln 2.5 Ml Btl EACH EYE 1 drop DAILY DAVIAN Administration Melatonin 5 mg 12/04/24 23:45 12/05/24 00:22 Melatonin 5 Mg Tablet PO 5 mg HS DAVIAN Administration Methylprednisolone Sodium Succinate 60 mg 12/05/24 06:00 12/05/24 11:56 Methylprednisolone Sod Succ 125 Mg Vial IV PUSH 60 mg Q6HR DAVIAN Administration Pantoprazole Sodium 40 mg 12/05/24 09:00 12/05/24 08:31 Pantoprazole 40 Mg Tablet PO 40 mg QAM DAVIAN Administration Roflumilast 500 mcg 12/05/24 09:00 12/05/24 08:30 Roflumilast 500 Mcg Tablet PO 500 mcg DAILY DAVIAN Administration Fluticasone/Salmeterol 2 puff 12/05/24 08:00 Fluticasone/Salmeterol 115-21 Mcg Inhaler 1 Puff INHALATION Q12HRT [facility] Radiology Results: ITS Impressions Chest X-Ray 12/04/24 19:48 IMPRESSION: 1. Emphysema. 2. 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 Labs Labs: Laboratory Results - last 24 hr 12/04/24 12/04/24 12/04/24 20:31 20:32 22:53 WBC 8.3 RBC 4.41 L Hgb 14.0 Hct 42.3 MCV 95.9 MCH 31.7 MCHC 33.1 RDW 14.2 Plt Count 315 MPV 10.3 Immature Gran % (Auto) 0.4 Neut % (Auto) 66.1 Lymph % (Auto) 21.1 [place] % (Auto) 10.1 H Eos % (Auto) 1.8 Baso % (Auto) 0.5 Lymph # (Auto) 1.75 [place] # (Auto) 0.8 H Eos # (Auto) 0.2 Baso # (Auto) 0.0 Abs Immat Gran (auto) 0.03 Absolute Neuts (auto) 5.5 Absolute Nucleated RBC 0.000 Nucleated RBC % 0.0 PT 13.6 INR 1.0 APTT 26.3 Sodium 140 Potassium 3.6 Chloride 101 Carbon Dioxide 28 Anion Gap 11 BUN 10 Creatinine 0.68 L Estim Creat Clear Calc 108 Estimated GFR > 60 Glucose 77 Calcium 9.5 Magnesium 2.0 Total Bilirubin 1.2 AST 28 ALT 30 Alkaline Phosphatase 79 Troponin I < 0.012 < 0.012 Total Protein 7.0 Albumin 4.0 Lipase 26 TSH (Reflex) 0.873 Influenza A (RT-PCR) Negative Influenza B (RT-PCR) Negative RSV (RT-PCR) Negative SARS-CoV-2 RNA (RT-PCR) Negative 12/05/24 01:40 WBC RBC Hgb Hct MCV MCH MCHC RDW Plt Count MPV Immature Gran % (Auto) Neut % (Auto) Lymph % (Auto) [place] % (Auto) Eos % (Auto) Baso % (Auto) Lymph # (Auto) [place] # (Auto) Eos # (Auto) Baso # (Auto) Abs Immat Gran (auto) Absolute Neuts (auto) Absolute Nucleated RBC Nucleated RBC % PT INR APTT Sodium Potassium Chloride Carbon Dioxide Anion Gap BUN Creatinine Estim Creat Clear Calc Estimated GFR Glucose Calcium Magnesium Total Bilirubin AST ALT Alkaline Phosphatase Troponin I < 0.012 Total Protein Albumin Lipase TSH (Reflex) Influenza A (RT-PCR) Influenza B (RT-PCR) RSV (RT-PCR) SARS-CoV-2 RNA (RT-PCR)
[2024-12-05] MEDS: MUPIROCIN 2% OINT 22 GM TUBE 1 APPLIC EACH NARE (17:34)
[2024-12-05] MEDS: AZITHROMYCIN 500 MG/NS 250 ML 500 MG/250 ML BAG 250 MG IVPB (17:41)
[2024-12-05] MEDS: polyethylene glycoL 3350 17 GM POWD.PACK PO (17:41)
[2024-12-05] MEDS: guaiFENesin 12 HR 600 MG TABCR 1200 MG PO (20:50)
[2024-12-05 23:37] LABS: Glucose Point of Care 202 mg/dl (65-105)
[2024-12-06] VITALS (12 sets, daily range): BP systolic 126–135; BP diastolic 41–88; PULSE 90–118; RESP 16–22; TEMP 36.7–36.8; O2SAT 97–100
[2024-12-06] MEDS: methylPREDNISolone SOD SUCC 125 MG VIAL 60 MG IV PUSH ×4 (00:57→18:12)
[2024-12-06] MEDS: IPRATROPIUM BR 0.02% INH SOLN 0.5 MG/2.5 ML VIAL INHALATION ×4 (01:30→19:30)
[2024-12-06] MEDS: ALBUTEROL SULFATE NEB 2.5 MG/3 ML INH 5 MG INHALATION ×4 (01:30→19:30)
[2024-12-06] MEDS: HYDROcodone/acetaminophen (*CRX) 5-325 MG TABLET 1 TAB PO ×3 (06:34→21:05)
[2024-12-06 06:36] LABS: Basophils Percent Auto 0.1 % (0.2-1.2); Hematocrit 36.6 % (42.0-52.0); Immature Granulocyte Absolute 0.11 K/mm3 (0.00-0.031); Immature Granulocyte Percent A 0.7 % (0-0.5); Lymphocytes Absolute Auto 0.37 K/mm3 (0.9-3.2); Lymphocytes Percent Auto 2.2 % (18.3-44.2); Mean Corpuscular HGB Conc 32.8 g/dl (32-36); Mean Corpuscular Hemoglobin 31.3 pg (26-34); Mean Corpuscular Volume 95.3 fl (80-100); Mean Platelet Volume 10.7 fl (7.4-10.4); Monocytes Absolute Auto 0.6 K/mm3 (0.1-0.6); Monocytes Percent Auto 3.7 % (2.6-8.5); Neutrophils Absolute Auto 15.7 K/mm3 (1.3-6.7); Neutrophils Percent Auto 93.3 % (45.5-73.1); Platelet Count Result 290 k/mm3 (150-375); Red Blood Count 3.84 M/mm3 (4.6-6.20); Red Cell Distribution Width 14.1 % (11.5-14.5); White Blood Count 16.8 K/mm3 (4.5-10.0)
[2024-12-06 06:54] LABS: Alanine Aminotransferase 27 U/L (6-50); Albumin Level 3.8 g/dL (3.5-5.1); Alkaline Phosphatase 57 U/L (38-126); Anion Gap 8 mmol/L (4-12); Aspartate Amino Transferase 20 U/L (17-59); Bilirubin,Total 0.6 mg/dL (0.2-1.3); Blood Urea Nitrogen 15 mg/dL (9-20); Calcium 9.2 mg/dL (8.4-10.2); Carbon Dioxide 26 mmol/L (22-30); Chloride 104 mmol/L (98-107); Estimated CRCL calculation 111 ml/min; Estimated Glomerular Filt Rate > 60; Glucose 127 mg/dL (65-110); Magnesium 2.3 mg/dL (1.6-2.3); Potassium 4.2 mmol/L (3.4-5.0); Sodium 138 mmol/L (137-145)
[2024-12-06] MEDS: PANTOPRAZOLE 40 MG TABLET PO (09:32)
[2024-12-06] MEDS: ASPIRIN 81 MG CHEWABLE TABLET PO (09:32)
[2024-12-06] MEDS: ROFLUMILAST 500 MCG TABLET PO (09:32)
[2024-12-06] MEDS: LATANOPROST 0.005% OP SOLN 2.5 ML BTL 1 DROP EACH EYE (09:33)
--- NOTE | 2024-12-06 12:51 | P.PNIM_ITS ---
Progress Note: A&P Assessment and Plan (1) COPD exacerbation: Code(s): J44.1 - Chronic obstructive pulmonary disease with (acute) exacerbation Status: Acute (2) Chronic respiratory failure with hypoxia, on home oxygen therapy: Code(s): J96.11 - Chronic respiratory failure with hypoxia; Z99.81 - Dependence on supplemental oxygen Status: Chronic (3) Anxiety: Code(s): F41.9 - Anxiety disorder, unspecified Status: Acute (4) Chronic pain syndrome: Code(s): G89.4 - Chronic pain syndrome Status: Acute Plan This is a 64-year-old male who presented to the ED with complaining of worsening shortness of breath. Patient reports he is on chronic steroid therapy at 5 mg a day. He reported improvement in his symptoms when he was on 50 mg of prednisone prescribed on December 01 when he came to the ER. But once the steroid treatment finished within a day or 2 started having increased shortness of breath and chest tightness. He denies any fever or chills. He reports sputum expectoration which is clear. He has is 3 your oxygen at home and has not required increased oxygen demand. 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 He also has chronic pain for which he takes [place] p.r.n.. 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 Uses fast at home as well. On ED evaluation he was afebrile tachycardic hypertensive oxygen saturation was adequate on 3 L oxygen via nasal cannula. He received DuoNeb treatment and was started on IV Solu Medrol. EKG showed sinus tachycardia with frequent PVCs. Laboratory studies showed WBC of 8.3 hemoglobin 14 platelets 315 Chem panel was unremarkable. Troponin was negative RSV COVID influenza swab was negative TSH was normal lipase is 26. A chest x-ray showed emphysema and chronic collapse of the right upper lung with endobronchial valves. This is a chronic finding. He is admitted for COPD exacerbation and possible pneumonia Acute COPD exacerbation continue with steroid. CTA 11/27/2024 with no pulmonary embolism or acute cardiopulmonary disease moderate emphysema with endobronchial valves in the right upper lobe over bronchi with chronic collapse of the right upper lobe. Multinodular goiter nonobstructing right nephrolithiasis. Did not tolerate Advair. Will switch to Breo he can bring his home supply Chronic respiratory failure on home oxygen 3 L via nasal cannula BPH Hiatal hernia Chronic DVT Chronic COPD History of placement of zyphyr valves in 2021 Osteoarthritis Anxiety home medication Weight loss 40 lb since September continue to monitor Chronic pain [place] p.r.n. DVT prophylaxis Code status full code Subjective Date/time seen: 12/06/24 12:51 Interval history: States she had a rough night with breathing issues overnight. He is drinking some tea that helps is feeling much better now. Review of Systems Review of Systems: All systems reviewed & are unremarkable except as noted in HPI and below Exam Narrative: General: Alert, awake, afebrile, in no acute distress HEENT: PERRL, no rhinorrhea, no post nasal drip, oropharynx clear. Neck: Trachea midline, no JVD, no lymphadenopathy. Cardiovascular: Regular rate regular rhythm, no murmurs, rubs or gallops, no peripheral edema. Respiratory: Clear to auscultation, coarse breath sound no respiratory distress Abdomen: Soft, nontender, nondistended, no rebound, no guarding, no peritoneal signs. Musculoskeletal: No joint swelling or deformity, normal muscle tone. Skin: No rashes or petechia, no signs of infection. Psychiatric: Alert and oriented, normal behavior and judgment for situation. Neurological: Alert and oriented to person, place, and time. Follows all commands. No focal deficits, speech is clear and fluent. Objective Data Vital Signs Vital Signs: Vital Signs - 24 hr 12/05/24 12:55 12/05/24 14:00 12/05/24 19:45 Temperature 97.7 F Pulse Rate 73 106 H Respiratory Rate 20 20 Blood Pressure 146/88 H Pulse Oximetry 97 97 Oxygen Delivery Nasal Cannula Oxygen Flow Rate 3 Fraction of Inspired Oxygen 32 12/05/24 19:45 12/05/24 20:03 12/05/24 22:00 Temperature 98.8 F Pulse Rate 90 92 109 H Respiratory Rate 20 20 16 Blood Pressure 127/85 Pulse Oximetry 98 Oxygen Delivery Oxygen Flow Rate Fraction of Inspired Oxygen 12/06/24 01:30 12/06/24 01:44 12/06/24 06:00 Temperature 98.2 F Pulse Rate 90 95 98 Respiratory Rate 18 20 16 Blood Pressure 129/88 Pulse Oximetry 99 Oxygen Delivery Oxygen Flow Rate Fraction of Inspired Oxygen 12/06/24 08:44 12/06/24 08:44 12/06/24 09:08 Temperature Pulse Rate 106 H 118 H Respiratory Rate 20 22 H Blood Pressure Pulse Oximetry 97 Oxygen Delivery Nasal Cannula Oxygen Flow Rate 3 Fraction of Inspired Oxygen Intake/Output Intake/Output: Intake & Output 12/03/24 12/04/24 12/05/24 12/06/24 23:59 23:59 23:59 23:59 Intake Total 1050 1309.2 120 Output Total 450 Balance 1050 1309.2 -330 Meds/Results Medications: Active Medications Generic Name Dose Route Start Last Admin Trade Name Freq PRN Reason Stop Dose Admin Hydrocodone Bitart/Acetaminophen 1 tab 12/05/24 05:36 12/06/24 06:34 Hydrocodone/Acetaminophen (*Crx) 5-325 Mg Tablet PO 1 tab Q6H PRN Administration Pain 7-10 Albuterol 5 mg 12/05/24 05:40 12/06/24 08:36 Albuterol Sulfate Neb 2.5 Mg/3 Ml Inh INHALATION 5 mg Q6HRT DAVIAN Administration Aspirin 81 mg 12/05/24 08:00 12/06/24 09:32 Aspirin 81 Mg Chewable Tablet PO 81 mg DAILY@0800 DAVIAN Administration Benzonatate 200 mg 12/05/24 05:42 Benzonatate 100 Mg Capsule PO TID PRN cough Fluticasone Propionate 1 spray 12/05/24 09:00 12/05/24 08:30 Fluticasone Propionate 0.05% Na Spr 16 Gm Btl (*Bkc) NASAL 1 spray Q12HR PRN Administration Allergic Symptoms Guaifenesin 1,200 mg 12/05/24 21:00 12/06/24 09:32 Guaifenesin 12 Hr 600 Mg Tabcr PO Not Given Q12HR DAVIAN Hydroxyzine HCl 25 mg 12/05/24 05:36 12/05/24 20:50 Hydroxyzine Hcl 25 Mg Tablet PO 25 mg Q8H PRN Administration anxiety Azithromycin 500 mg in 250 mls @ 250 mls/hr 12/05/24 18:00 12/05/24 19:17 Zithromax IVPB 12/08/24 18:59 Infused Q24H DAVIAN Infusion Ipratropium [place] 0.5 mg 12/05/24 05:40 12/06/24 08:42 Ipratropium Br 0.02% Inh Soln 0.5 Mg/2.5 Ml Vial INHALATION 0.5 mg Q6HRT DAVIAN Administration Latanoprost 1 drop 12/05/24 09:00 12/06/24 09:33 Latanoprost 0.005% Op Soln 2.5 Ml Btl EACH EYE 1 drop DAILY DAVIAN Administration Melatonin 5 mg 12/04/24 23:45 12/05/24 20:50 Melatonin 5 Mg Tablet PO 5 mg HS DAVAIN Administration Methylprednisolone Sodium Succinate 60 mg 12/05/24 06:00 12/06/24 12:32 Methylprednisolone Sod Succ 125 Mg Vial IV PUSH 60 mg Q6HR DAVIAN Administration Mupirocin 1 applic 12/05/24 21:00 12/06/24 09:38 Mupirocin 2% Oint 22 Gm Tube EACH NARE Not Given Q12HR DAVIAN Pantoprazole Sodium 40 mg 12/05/24 09:00 12/06/24 09:32 Pantoprazole 40 Mg Tablet PO 40 mg QAM DAVIAN Administration Polyethylene Glycol 17 gm 12/05/24 16:58 12/05/24 17:41 Polyethylene Glycol 3350 17 Gm Powd.Pack PO 17 gm DAILY PRN Administration Constipation Roflumilast 500 mcg 12/05/24 09:00 12/06/24 09:32 Roflumilast 500 Mcg Tablet PO 500 mcg DAILY DAVIAN Administration Fluticasone/Salmeterol 2 puff 12/05/24 08:00 12/06/24 08:43 Fluticasone/Salmeterol 115-21 Mcg Inhaler 1 Puff INHALATION Not Given Q12HRT [facility] Radiology Results: ITS Impressions Chest X-Ray 12/04/24 19:48 IMPRESSION: 1. Emphysema. 2. 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 Labs Labs: Laboratory Results - last 24 hr 12/05/24 12/06/24 23:34 06:03 WBC 16.8 H RBC 3.84 L Hgb 12.0 L Hct 36.6 L MCV 95.3 MCH 31.3 MCHC 32.8 RDW 14.1 Plt Count 290 MPV 10.7 H Immature Gran % (Auto) 0.7 H Neut % (Auto) 93.3 H Lymph % (Auto) 2.2 L [place] % (Auto) 3.7 Eos % (Auto) 0.0 Baso % (Auto) 0.1 L Lymph # (Auto) 0.37 L [place] # (Auto) 0.6 Eos # (Auto) 0.0 Baso # (Auto) 0.0 Abs Immat Gran (auto) 0.11 H Absolute Neuts (auto) 15.7 H Absolute Nucleated RBC 0.000 Nucleated RBC % 0.0 Sodium 138 Potassium 4.2 Chloride 104 Carbon Dioxide 26 Anion Gap 8 BUN 15 D Creatinine 0.57 L Estim Creat Clear Calc 111 Estimated GFR > 60 Glucose 127 H POC Capillary Glucose 202 H Calcium 9.2 Magnesium 2.3 Total Bilirubin 0.6 AST 20 ALT 27 Alkaline Phosphatase 57 Total Protein 7.0 Albumin 3.8
[2024-12-06] MEDS: AZITHROMYCIN 500 MG/NS 250 ML 500 MG/250 ML BAG 150 MG IVPB (18:13)
[2024-12-06] MEDS: hydrOXYzine HCL 25 MG TABLET PO (20:28)
[2024-12-06] MEDS: guaiFENesin 12 HR 600 MG TABCR 1200 MG PO (20:28)
[2024-12-06] MEDS: MELATONIN 5 MG TABLET PO (20:28)
[2024-12-07] VITALS (13 sets, daily range): BP systolic 134–175; BP diastolic 79–91; PULSE 79–110; RESP 16–24; TEMP 36.2–36.6; O2SAT 90–99; BMI 29.5
[2024-12-07] MEDS: methylPREDNISolone SOD SUCC 125 MG VIAL 60 MG IV PUSH ×3 (00:52→11:37)
[2024-12-07] MEDS: ALBUTEROL SULFATE NEB 2.5 MG/3 ML INH 5 MG INHALATION ×4 (01:36→22:47)
[2024-12-07] MEDS: IPRATROPIUM BR 0.02% INH SOLN 0.5 MG/2.5 ML VIAL INHALATION ×4 (01:36→22:47)
[2024-12-07 07:07] LABS: Basophils Percent Auto 0.1 % (0.2-1.2); Hematocrit 38.9 % (42.0-52.0); Hemoglobin 12.8 g/dL (14.0-18.0); Immature Granulocyte Absolute 0.11 K/mm3 (0.00-0.031); Immature Granulocyte Percent A 0.6 % (0-0.5); Lymphocytes Absolute Auto 0.37 K/mm3 (0.9-3.2); Lymphocytes Percent Auto 2.1 % (18.3-44.2); Mean Corpuscular HGB Conc 32.9 g/dl (32-36); Mean Corpuscular Volume 97.3 fl (80-100); Mean Platelet Volume 10.9 fl (7.4-10.4); Monocytes Absolute Auto 0.8 K/mm3 (0.1-0.6); Monocytes Percent Auto 4.3 % (2.6-8.5); Neutrophils Absolute Auto 16.5 K/mm3 (1.3-6.7); Neutrophils Percent Auto 92.9 % (45.5-73.1); Platelet Count Result 313 k/mm3 (150-375); Red Cell Distribution Width 14.5 % (11.5-14.5); White Blood Count 17.7 K/mm3 (4.5-10.0)
[2024-12-07 07:17] LABS: Alanine Aminotransferase 29 U/L (6-50); Alkaline Phosphatase 55 U/L (38-126); Anion Gap 10 mmol/L (4-12); Aspartate Amino Transferase 23 U/L (17-59); Bilirubin,Total 0.6 mg/dL (0.2-1.3); Blood Urea Nitrogen 17 mg/dL (9-20); Calcium 9.7 mg/dL (8.4-10.2); Carbon Dioxide 27 mmol/L (22-30); Chloride 102 mmol/L (98-107); Estimated CRCL calculation 111 ml/min; Estimated Glomerular Filt Rate > 60; Glucose 116 mg/dL (65-110); Magnesium 2.2 mg/dL (1.6-2.3); Potassium 4.4 mmol/L (3.4-5.0); Sodium 139 mmol/L (137-145)
[2024-12-07] MEDS: HYDROcodone/acetaminophen (*CRX) 5-325 MG TABLET 1 TAB PO ×2 (07:57→21:17)
[2024-12-07] MEDS: polyethylene glycoL 3350 17 GM POWD.PACK PO (07:58)
[2024-12-07] MEDS: PANTOPRAZOLE 40 MG TABLET PO (07:58)
[2024-12-07] MEDS: ASPIRIN 81 MG CHEWABLE TABLET PO (07:58)
[2024-12-07] MEDS: ROFLUMILAST 500 MCG TABLET PO (07:58)
[2024-12-07] MEDS: LATANOPROST 0.005% OP SOLN 2.5 ML BTL 1 DROP EACH EYE (07:58)
[2024-12-07] MEDS: MUPIROCIN 2% OINT 22 GM TUBE 1 APPLIC EACH NARE ×2 (07:59→21:18)
[2024-12-07] MEDS: hydrOXYzine HCL 25 MG TABLET PO ×2 (11:35→21:17)
--- NOTE | 2024-12-07 12:30 | PM.IMPN ---
Progress Note: A&P Assessment and Plan (1) COPD exacerbation: Code(s): J44.1 - Chronic obstructive pulmonary disease with (acute) exacerbation Status: Acute (2) Chronic respiratory failure with hypoxia, on home oxygen therapy: Code(s): J96.11 - Chronic respiratory failure with hypoxia; Z99.81 - Dependence on supplemental oxygen Status: Chronic (3) Anxiety: Code(s): F41.9 - Anxiety disorder, unspecified Status: Acute (4) Chronic pain syndrome: Code(s): G89.4 - Chronic pain syndrome Status: Acute Plan This is a 64-year-old male who presented to the ED with complaining of worsening shortness of breath. Patient reports he is on chronic steroid therapy at 5 mg a day. He reported improvement in his symptoms when he was on 50 mg of prednisone prescribed on December 01 when he came to the ER. But once the steroid treatment finished within a day or 2 started having increased shortness of breath and chest tightness. He denies any fever or chills. He reports sputum expectoration which is clear. He has is 3 your oxygen at home and has not required increased oxygen demand. 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 He also has chronic pain for which he takes [place] p.r.n.. 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 Uses fast at home as well. On ED evaluation he was afebrile tachycardic hypertensive oxygen saturation was adequate on 3 L oxygen via nasal cannula. He received DuoNeb treatment and was started on IV Solu Medrol. EKG showed sinus tachycardia with frequent PVCs. Laboratory studies showed WBC of 8.3 hemoglobin 14 platelets 315 Chem panel was unremarkable. Troponin was negative RSV COVID influenza swab was negative TSH was normal lipase is 26. A chest x-ray showed emphysema and chronic collapse of the right upper lung with endobronchial valves. This is a chronic finding. He is admitted for COPD exacerbation and possible pneumonia Acute COPD exacerbation continue with steroid. CTA 11/27/2024 with no pulmonary embolism or acute cardiopulmonary disease moderate emphysema with endobronchial valves in the right upper lobe over bronchi with chronic collapse of the right upper lobe. Multinodular goiter nonobstructing right nephrolithiasis. Did not tolerate Advair. Will switch to Breo he can bring his home supply. Will switch Solu Medrol to prednisone Chronic respiratory failure on home oxygen 3 L via nasal cannula BPH Hiatal hernia Chronic DVT Chronic COPD History of placement of zyphyr valves in 2021 Osteoarthritis Anxiety home medication Weight loss 40 lb since September continue to monitor Chronic pain [place] p.r.n. DVT prophylaxis Code status full code Subjective Date/time seen: 12/07/24 12:30 Interval history: Feels better. Intermittent cough. No chest pain. Review of Systems Review of Systems: All systems reviewed & are unremarkable except as noted in HPI and below Exam Narrative: General: Alert, awake, afebrile, in no acute distress HEENT: PERRL, no rhinorrhea, no post nasal drip, oropharynx clear. Neck: Trachea midline, no JVD, no lymphadenopathy. Cardiovascular: Regular rate regular rhythm, no murmurs, rubs or gallops, no peripheral edema. Respiratory: Clear to auscultation, coarse breath sound no respiratory distress Abdomen: Soft, nontender, nondistended, no rebound, no guarding, no peritoneal signs. Musculoskeletal: No joint swelling or deformity, normal muscle tone. Skin: No rashes or petechia, no signs of infection. Psychiatric: Alert and oriented, normal behavior and judgment for situation. Neurological: Alert and oriented to person, place, and time. Follows all commands. No focal deficits, speech is clear and fluent. Objective Data Vital Signs Vital Signs: Vital Signs - 24 hr 12/06/24 14:00 12/06/24 14:20 12/06/24 14:30 Temperature 98.3 F Pulse Rate 99 92 96 Respiratory Rate 18 20 20 Blood Pressure 126/78 Pulse Oximetry 99 Oxygen Delivery Oxygen Flow Rate Fraction of Inspired Oxygen 12/06/24 19:30 12/06/24 19:30 12/06/24 19:45 Temperature Pulse Rate 99 100 Respiratory Rate 20 20 Blood Pressure Pulse Oximetry 97 Oxygen Delivery Nasal Cannula Oxygen Flow Rate 3 Fraction of Inspired Oxygen 32 12/06/24 22:00 12/07/24 01:36 12/07/24 01:53 Temperature 98.1 F Pulse Rate 118 H 97 99 Respiratory Rate 18 20 20 Blood Pressure 135/41 L Pulse Oximetry 100 Oxygen Delivery Oxygen Flow Rate Fraction of Inspired Oxygen 12/07/24 06:00 12/07/24 08:00 12/07/24 08:09 Temperature 97.8 F Pulse Rate 81 Respiratory Rate 18 Blood Pressure 134/79 Pulse Oximetry 90 98 98 Oxygen Delivery Nasal Cannula Nasal Cannula Oxygen Flow Rate 3 3 Fraction of Inspired Oxygen 32 12/07/24 08:09 12/07/24 08:26 Temperature Pulse Rate 102 H 107 H Respiratory Rate 20 20 Blood Pressure Pulse Oximetry Oxygen Delivery Oxygen Flow Rate Fraction of Inspired Oxygen Intake/Output Intake/Output: Intake & Output 12/04/24 12/05/24 12/06/24 12/07/24 23:59 23:59 23:59 23:59 Intake Total 1050 1309.2 252.5 240 Output Total 450 450 Balance 1050 1309.2 -197.5 -210 Meds/Results Medications: Active Medications Generic Name Dose Route Start Last Admin Trade Name Freq PRN Reason Stop Dose Admin Hydrocodone Bitart/Acetaminophen 1 tab 12/05/24 05:36 12/07/24 07:57 Hydrocodone/Acetaminophen (*Crx) 5-325 Mg Tablet PO 1 tab Q6H PRN Administration Pain 7-10 Albuterol 5 mg 12/05/24 05:40 12/07/24 08:09 Albuterol Sulfate Neb 2.5 Mg/3 Ml Inh INHALATION 5 mg Q6HRT DAVIAN Administration Aspirin 81 mg 12/05/24 08:00 12/07/24 07:58 Aspirin 81 Mg Chewable Tablet PO 81 mg DAILY@0800 DAVIAN Administration Benzonatate 200 mg 12/05/24 05:42 Benzonatate 100 Mg Capsule PO TID PRN cough Fluticasone Propionate 1 spray 12/05/24 09:00 12/05/24 08:30 Fluticasone Propionate 0.05% Na Spr 16 Gm Btl (*Bkc) NASAL 1 spray Q12HR PRN Administration Allergic Symptoms Guaifenesin 1,200 mg 12/05/24 21:00 12/07/24 07:59 Guaifenesin 12 Hr 600 Mg Tabcr PO Not Given Q12HR [facility] Home Med 1 each 12/07/24 09:00 Fluticasone Furoate 100 Mcg-Vilanterol 25 Mcg/Dose Inhalation Powder*Use Home Supply INHALATION 01/06/25 08:59 DAILY [facility] Hydroxyzine HCl 25 mg 12/05/24 05:36 12/07/24 11:35 Hydroxyzine Hcl 25 Mg Tablet PO 25 mg Q8H PRN Administration anxiety Azithromycin 500 mg in 250 mls @ 250 mls/hr 02/22/25 18:00 12/06/24 18:18 Zithromax IVPB 12/08/24 18:59 0 mls/hr Q24H DAVIAN Infusion Ipratropium [place] 0.5 mg 12/05/24 05:40 12/07/24 08:09 Ipratropium Br 0.02% Inh Soln 0.5 Mg/2.5 Ml Vial INHALATION 0.5 mg Q6HRT DAVIAN Administration Latanoprost 1 drop 12/05/24 09:00 12/07/24 07:58 Latanoprost 0.005% Op Soln 2.5 Ml Btl EACH EYE 1 drop DAILY DAVIAN Administration Melatonin 5 mg 12/04/24 23:45 12/06/24 20:28 Melatonin 5 Mg Tablet PO 5 mg HS DAVIAN Administration Methylprednisolone Sodium Succinate 60 mg 12/05/24 06:00 12/07/24 11:37 Methylprednisolone Sod Succ 125 Mg Vial IV PUSH 60 mg Q6HR DAVIAN Administration Miscellaneous Information 1 each 12/06/24 00:01 Paul Stanton Md Okayed To Bring In Home Med For Use In Hosp. Send To Pharmacy To Verify W XX 01/05/25 00:00 CLARIFY DAVIAN Mupirocin 1 applic 12/05/24 21:00 12/07/24 07:59 Mupirocin 2% Oint 22 Gm Tube EACH NARE 1 applic Q12HR DAVIAN Administration Pantoprazole Sodium 40 mg 12/05/24 09:00 12/07/24 07:58 Pantoprazole 40 Mg Tablet PO 40 mg QAM DAVIAN Administration Polyethylene Glycol 17 gm 12/05/24 16:58 12/07/24 07:58 Polyethylene Glycol 3350 17 Gm Powd.Pack PO 17 gm DAILY PRN Administration Constipation Roflumilast 500 mcg 12/05/24 09:00 12/07/24 07:58 Roflumilast 500 Mcg Tablet PO 500 mcg DAILY DAVIAN Administration Radiology Results: ITS Impressions Chest X-Ray 12/04/24 19:48 IMPRESSION: 1. Emphysema. 2. 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 Labs Labs: Laboratory Results - last 24 hr 12/07/24 06:41 WBC 17.7 H RBC 4.00 L Hgb 12.8 L Hct 38.9 L MCV 97.3 MCH 32.0 MCHC 32.9 RDW 14.5 Plt Count 313 MPV 10.9 H Immature Gran % (Auto) 0.6 H Neut % (Auto) 92.9 H Lymph % (Auto) 2.1 L [place] % (Auto) 4.3 Eos % (Auto) 0.0 Baso % (Auto) 0.1 L Lymph # (Auto) 0.37 L [place] # (Auto) 0.8 H Eos # (Auto) 0.0 Baso # (Auto) 0.0 Abs Immat Gran (auto) 0.11 H Absolute Neuts (auto) 16.5 H Absolute Nucleated RBC 0.000 Nucleated RBC % 0.0 Sodium 139 Potassium 4.4 Chloride 102 Carbon Dioxide 27 Anion Gap 10 BUN 17 Creatinine 0.57 L Estim Creat Clear Calc 111 Estimated GFR > 60 Glucose 116 H Calcium 9.7 Magnesium 2.2 Total Bilirubin 0.6 AST 23 ALT 29 Alkaline Phosphatase 55 Total Protein 7.0 Albumin 4.0
--- NOTE | 2024-12-07 13:46 | P.CDI_ITS ---
CDI Query Clarification Request BMI: 29.5 Nutritional Diagnostic Statement: Please refer to the comprehensive nutrition assessment for further information. If you agree with diagnosis of Moderate protein calorie malnutrition related to inadequate energy intake as evidenced by pt report of poor po intake for greater than 1 month, a -10% wt loss x 2 months, and NFPE findings for moderate subcutaneous fat loss (cheeks) and moderate muscle wasting (temples). Please specify severity if known: * Mild * Moderate * Severe * Other/Unknown <Buffy Covington RN - Last Filed: 12/07/24 13:47> Provider Comments Moderate protein calorie malnutrition <Guzman Gutierrez MD - Last Filed: 12/08/24 15:03>
--- NOTE | 2024-12-07 13:51 | PHAR ---
PT'S HOME MED BREO-ELLIPTA 100/25 MCG INHALER VERIFIED BY PHARMACY
[2024-12-07] MEDS: FLUTICASONE FUROATE 100 MCG INHALATION (13:58)
[2024-12-07] MEDS: VILANTEROL INHALATION (13:58)
[2024-12-07] MEDS: predniSONE 20 MG TABLET 40 MG PO (17:13)
[2024-12-07] MEDS: AZITHROMYCIN 250 MG TABLET 500 MG PO (17:13)
[2024-12-07] MEDS: MELATONIN 5 MG TABLET PO (21:17)
[2024-12-07] MEDS: guaiFENesin 12 HR 600 MG TABCR 1200 MG PO (21:17)
[2024-12-08] VITALS (8 sets, daily range): BP systolic 129–148; BP diastolic 80–89; PULSE 89–113; RESP 12–24; TEMP 36.3–36.8; O2SAT 97–100
[2024-12-08] MEDS: ALBUTEROL SULFATE NEB 2.5 MG/3 ML INH 5 MG INHALATION ×2 (02:31→09:38)
[2024-12-08] MEDS: IPRATROPIUM BR 0.02% INH SOLN 0.5 MG/2.5 ML VIAL INHALATION ×2 (02:31→09:39)
[2024-12-08 06:38] LABS: Basophils Percent Auto 0.1 % (0.2-1.2); Hematocrit 39.5 % (42.0-52.0); Hemoglobin 12.8 g/dL (14.0-18.0); Immature Granulocyte Absolute 0.08 K/mm3 (0.00-0.031); Immature Granulocyte Percent A 0.5 % (0-0.5); Lymphocytes Absolute Auto 0.65 K/mm3 (0.9-3.2); Lymphocytes Percent Auto 4.2 % (18.3-44.2); Mean Corpuscular HGB Conc 32.4 g/dl (32-36); Mean Corpuscular Volume 98.8 fl (80-100); Mean Platelet Volume 11.6 fl (7.4-10.4); Monocytes Absolute Auto 1.6 K/mm3 (0.1-0.6); Monocytes Percent Auto 10.2 % (2.6-8.5); Neutrophils Absolute Auto 13.3 K/mm3 (1.3-6.7); Platelet Count Result 252 k/mm3 (150-375); Red Cell Distribution Width 14.6 % (11.5-14.5); White Blood Count 15.6 K/mm3 (4.5-10.0)
[2024-12-08] MEDS: ASPIRIN 81 MG CHEWABLE TABLET PO (07:49)
[2024-12-08] MEDS: guaiFENesin 12 HR 600 MG TABCR 1200 MG PO (07:49)
[2024-12-08] MEDS: ROFLUMILAST 500 MCG TABLET PO (07:49)
[2024-12-08] MEDS: predniSONE 20 MG TABLET 40 MG PO (07:49)
[2024-12-08] MEDS: LATANOPROST 0.005% OP SOLN 2.5 ML BTL 1 DROP EACH EYE (07:50)
[2024-12-08] MEDS: MUPIROCIN 2% OINT 22 GM TUBE 1 APPLIC EACH NARE (07:50)
[2024-12-08] MEDS: PANTOPRAZOLE 40 MG TABLET PO (07:50)
[2024-12-08] MEDS: HYDROcodone/acetaminophen (*CRX) 5-325 MG TABLET 1 TAB PO (07:50)
[2024-12-08] MEDS: VILANTEROL INHALATION (07:53)
[2024-12-08] MEDS: FLUTICASONE FUROATE 100 MCG INHALATION (07:53)
--- NOTE | 2024-12-08 08:57 | PM.IMPN ---
Progress Note: A&P Assessment and Plan (1) COPD exacerbation: Code(s): J44.1 - Chronic obstructive pulmonary disease with (acute) exacerbation Status: Acute (2) Chronic respiratory failure with hypoxia, on home oxygen therapy: Code(s): J96.11 - Chronic respiratory failure with hypoxia; Z99.81 - Dependence on supplemental oxygen Status: Chronic (3) Anxiety: Code(s): F41.9 - Anxiety disorder, unspecified Status: Acute (4) Chronic pain syndrome: Code(s): G89.4 - Chronic pain syndrome Status: Acute Plan This is a 64-year-old male who presented to the ED with complaining of worsening shortness of breath. Patient reports he is on chronic steroid therapy at 5 mg a day. He reported improvement in his symptoms when he was on 50 mg of prednisone prescribed on December 01 when he came to the ER. But once the steroid treatment finished within a day or 2 started having increased shortness of breath and chest tightness. He denies any fever or chills. He reports sputum expectoration which is clear. He has is 3 your oxygen at home and has not required increased oxygen demand. He follows regularly with ripsawyer. He also has chronic pain for which he takes [place] p.r.n.. 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 Uses fast at home as well. On ED evaluation he was afebrile tachycardic hypertensive oxygen saturation was adequate on 3 L oxygen via nasal cannula. He received DuoNeb treatment and was started on IV Solu Medrol. EKG showed sinus tachycardia with frequent PVCs. Laboratory studies showed WBC of 8.3 hemoglobin 14 platelets 315 Chem panel was unremarkable. Troponin was negative RSV COVID influenza swab was negative TSH was normal lipase is 26. A chest x-ray showed emphysema and chronic collapse of the right upper lung with endobronchial valves. This is a chronic finding. He is admitted for COPD exacerbation and possible pneumonia Acute COPD exacerbation continue with steroid. CTA 11/27/2024 with no pulmonary embolism or acute cardiopulmonary disease moderate emphysema with endobronchial valves in the right upper lobe over bronchi with chronic collapse of the right upper lobe. Multinodular goiter nonobstructing right nephrolithiasis. Did not tolerate Advair. Will switch to Breo he can bring his home supply. Will switch Solu Medrol to prednisone Chronic respiratory failure on home oxygen 3 L via nasal cannula BPH Hiatal hernia Chronic DVT Chronic COPD History of placement of zyphyr valves in 2021 Osteoarthritis Anxiety home medication Weight loss 40 lb since September continue to monitor Chronic pain [place] p.r.n. DVT prophylaxis Code status full code Subjective Date/time seen: 12/08/24 08:57 Interval history: 64-year-old male with a past medical history of COPD on chronic home O2 of 3 L, hypertension, chronic pain and GERD who presented to the ER via private vehicle due to shortness of breath. Review of Systems Review of Systems: 12 systems were reviewed with pertinent positives and negatives per HPI. Except as documented in the HPI, all other systems were reviewed and are negative. All systems reviewed & are unremarkable except as noted in HPI and below Exam Narrative: General: Alert, awake, afebrile, in no acute distress HEENT: PERRL, no rhinorrhea, no post nasal drip, oropharynx clear. Neck: Trachea midline, no JVD, no lymphadenopathy. Cardiovascular: Regular rate regular rhythm, no murmurs, rubs or gallops, no peripheral edema. Respiratory: Clear to auscultation, coarse breath sound no respiratory distress Abdomen: Soft, nontender, nondistended, no rebound, no guarding, no peritoneal signs. Musculoskeletal: No joint swelling or deformity, normal muscle tone. Skin: No rashes or petechia, no signs of infection. Psychiatric: Alert and oriented, normal behavior and judgment for situation. Neurological: Alert and oriented to person, place, and time. Follows all commands. No focal deficits, speech is clear and fluent. Objective Data Vital Signs Vital Signs: Vital Signs - 24 hr 12/07/24 13:48 12/07/24 13:48 12/07/24 13:57 Temperature Pulse Rate 110 H 108 H Respiratory Rate 20 20 Blood Pressure Pulse Oximetry 97 Oxygen Delivery Nasal Cannula Oxygen Flow Rate 3 Fraction of Inspired Oxygen 32 12/07/24 14:00 12/07/24 15:32 12/07/24 20:00 Temperature 97.1 F L Pulse Rate 103 H Respiratory Rate 20 Blood Pressure 175/89 H 150/86 H Pulse Oximetry 98 98 Oxygen Delivery Nasal Cannula Oxygen Flow Rate 3 Fraction of Inspired Oxygen 12/07/24 22:00 12/07/24 22:48 12/07/24 22:48 Temperature 97.5 F L Pulse Rate 79 89 Respiratory Rate 16 24 H Blood Pressure 149/91 H Pulse Oximetry 99 95 Oxygen Delivery Nasal Cannula Oxygen Flow Rate 3 Fraction of Inspired Oxygen 32 12/08/24 02:31 12/08/24 03:05 12/08/24 06:00 Temperature 97.4 F L Pulse Rate 94 100 89 Respiratory Rate 24 H 24 H 12 Blood Pressure 148/80 H Pulse Oximetry 100 Oxygen Delivery Oxygen Flow Rate Fraction of Inspired Oxygen 12/08/24 07:29 12/08/24 08:00 Temperature 98.2 F Pulse Rate 89 Respiratory Rate 14 Blood Pressure 129/89 Pulse Oximetry 98 98 Oxygen Delivery Nasal Cannula Oxygen Flow Rate 3 Fraction of Inspired Oxygen Intake/Output Intake/Output: Intake & Output 12/05/24 12/06/24 12/07/24 12/08/24 23:59 23:59 23:59 23:59 Intake Total 1309.2 252.5 720 240 Output Total 877 358 8237 Balance 1309.2 -197.5 270 -915 Meds/Results Medications: Active Medications Generic Name Dose Route Start Last Admin Trade Name Freq PRN Reason Stop Dose Admin Hydrocodone Bitart/Acetaminophen 1 tab 12/05/24 05:36 12/08/24 07:50 Hydrocodone/Acetaminophen (*Crx) 5-325 Mg Tablet PO 1 tab Q6H PRN Administration Pain 7-10 Albuterol 5 mg 12/05/24 05:40 12/08/24 02:31 Albuterol Sulfate Neb 2.5 Mg/3 Ml Inh INHALATION 5 mg Q6HRT DAVIAN Administration Aspirin 81 mg 12/05/24 08:00 12/08/24 07:49 Aspirin 81 Mg Chewable Tablet PO 81 mg DAILY@0800 DAVIAN Administration Azithromycin 500 mg 12/07/24 18:00 12/07/24 17:13 Azithromycin 250 Mg Tablet PO 12/08/24 18:01 500 mg Q24H DAVIAN Administration Benzonatate 200 mg 12/05/24 05:42 Benzonatate 100 Mg Capsule PO TID PRN cough Calcium Carbonate 200 mg 12/07/24 18:18 Calcium Carbonate (Tums) 500 Mg (200 Mg Elemental) PO Q6H PRN Indigestion Fluticasone Propionate 1 spray 12/05/24 09:00 12/05/24 08:30 Fluticasone Propionate 0.05% Na Spr 16 Gm Btl (*Bkc) NASAL 1 spray Q12HR PRN Administration Allergic Symptoms Guaifenesin 1,200 mg 12/05/24 21:00 12/08/24 07:49 Guaifenesin 12 Hr 600 Mg Tabcr PO 1,200 mg Q12HR DAVIAN Administration Home Med 1 each 12/07/24 09:00 12/08/24 07:53 Fluticasone Furoate 100 Mcg-Vilanterol 25 Mcg/Dose Inhalation Powder*Use Home Supply INHALATION 01/06/25 08:59 1 each DAILY DAVIAN Administration Hydroxyzine HCl 25 mg 12/05/24 05:36 12/07/24 21:17 Hydroxyzine Hcl 25 Mg Tablet PO 25 mg Q8H PRN Administration anxiety Ipratropium [place] 0.5 mg 12/05/24 05:40 12/08/24 02:31 Ipratropium Br 0.02% Inh Soln 0.5 Mg/2.5 Ml Vial INHALATION 0.5 mg Q6HRT DAVIAN Administration Latanoprost 1 drop 12/05/24 09:00 12/08/24 07:50 Latanoprost 0.005% Op Soln 2.5 Ml Btl EACH EYE 1 drop DAILY DAVIAN Administration Melatonin 5 mg 12/04/24 23:45 12/07/24 21:17 Melatonin 5 Mg Tablet PO 5 mg HS DAVIAN Administration Mupirocin 1 applic 12/05/24 21:00 12/08/24 07:50 Mupirocin 2% Oint 22 Gm Tube EACH NARE 1 applic Q12HR DAVIAN Administration Pantoprazole Sodium 40 mg 12/05/24 09:00 12/08/24 07:50 Pantoprazole 40 Mg Tablet PO 40 mg QAM DAVIAN Administration Polyethylene Glycol 17 gm 12/05/24 16:58 12/07/24 07:58 Polyethylene Glycol 3350 17 Gm Powd.Pack PO 17 gm DAILY PRN Administration Constipation Prednisone 40 mg 12/07/24 17:00 12/08/24 07:49 Prednisone 20 Mg Tablet PO 40 mg BID DAVIAN Administration Roflumilast 500 mcg 12/05/24 09:00 12/08/24 07:49 Roflumilast 500 Mcg Tablet PO 500 mcg DAILY DAVIAN Administration Radiology Results: ITS Impressions Chest X-Ray 12/04/24 19:48 IMPRESSION: 1. Emphysema. 2. 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 Labs Labs: Laboratory Results - last 24 hr 12/08/24 06:05 WBC 15.6 H RBC 4.00 L Hgb 12.8 L Hct 39.5 L MCV 98.8 MCH 32.0 MCHC 32.4 RDW 14.6 H Plt Count 252 MPV 11.6 H Immature Gran % (Auto) 0.5 Neut % (Auto) 85.0 H Lymph % (Auto) 4.2 L [place] % (Auto) 10.2 H Eos % (Auto) 0.0 Baso % (Auto) 0.1 L Lymph # (Auto) 0.65 L [place] # (Auto) 1.6 H Eos # (Auto) 0.0 Baso # (Auto) 0.0 Abs Immat Gran (auto) 0.08 H Absolute Neuts (auto) 13.3 H Absolute Nucleated RBC 0.000 Nucleated RBC % 0.0 Quality VTE Prophylaxis VTE prophylaxis: pharmacologic ordered (Lovenox 40 mg subQ daily)
[2024-12-08 10:36] LABS: Alanine Aminotransferase 32 U/L (6-50); Albumin Level 4.2 g/dL (3.5-5.1); Alkaline Phosphatase 47 U/L (38-126); Anion Gap 13 mmol/L (4-12); Aspartate Amino Transferase 26 U/L (17-59); Bilirubin,Total 0.9 mg/dL (0.2-1.3); Blood Urea Nitrogen 18 mg/dL (9-20); Calcium 9.8 mg/dL (8.4-10.2); Carbon Dioxide 24 mmol/L (22-30); Chloride 103 mmol/L (98-107); Estimated CRCL calculation 100 ml/min; Estimated Glomerular Filt Rate > 60; Glucose 164 mg/dL (65-110); Magnesium 2.3 mg/dL (1.6-2.3); Potassium 4.1 mmol/L (3.4-5.0); Sodium 140 mmol/L (137-145)
[2024-12-08] MEDS: hydrOXYzine HCL 25 MG TABLET PO (12:31)
--- NOTE | 2024-12-08 12:57 | PM.DS ---
DS: Admitting Diagnosis Discharge Date 12/08/2024 Admitting Diagnosis Shortness of breath DS: Discharge Diagnosis Discharge Diagnosis (1) COPD exacerbation: Code(s): J44.1 - Chronic obstructive pulmonary disease with (acute) exacerbation Status: Acute (2) Chronic respiratory failure with hypoxia, on home oxygen therapy: Code(s): J96.11 - Chronic respiratory failure with hypoxia; Z99.81 - Dependence on supplemental oxygen Status: Chronic (3) Anxiety: Code(s): F41.9 - Anxiety disorder, unspecified Status: Acute (4) Chronic pain syndrome: Code(s): G89.4 - Chronic pain syndrome Status: Acute DS: Summary Hospital Course Hospital Course: This is a 64-year-old male who presented to the ED with complaining of worsening shortness of breath. Patient reports he is on chronic steroid therapy at 5 mg a day. He reported improvement in his symptoms when he was on 50 mg of prednisone prescribed on December 01 when he came to the ER. But once the steroid treatment finished within a day or 2 started having increased shortness of breath and chest tightness. He denies any fever or chills. He reports sputum expectoration which is clear. He has is 3 your oxygen at home and has not required increased oxygen demand. He follows regularly with sales professional bilingual. He also has chronic pain for which he takes [place] p.r.n.. 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 Uses fast at home as well. On ED evaluation he was afebrile tachycardic hypertensive oxygen saturation was adequate on 3 L oxygen via nasal cannula. He received DuoNeb treatment and was started on IV Solu Medrol. EKG showed sinus tachycardia with frequent PVCs. Laboratory studies showed WBC of 8.3 hemoglobin 14 platelets 315 Chem panel was unremarkable. Troponin was negative RSV COVID influenza swab was negative TSH was normal lipase is 26. A chest x-ray showed emphysema and chronic collapse of the right upper lung with endobronchial valves. This is a chronic finding. He is admitted for COPD exacerbation and possible pneumonia Acute COPD exacerbation continue with steroid. CTA 11/27/2024 with no pulmonary embolism or acute cardiopulmonary disease moderate emphysema with endobronchial valves in the right upper lobe over bronchi with chronic collapse of the right upper lobe. Multinodular goiter nonobstructing right nephrolithiasis. Did not tolerate Advair. Switched to Breo which he brought from home. Solu Medrol be switched to prednisone and taper at discharge Chronic respiratory failure on home oxygen 3 L via nasal cannula BPH Hiatal hernia Chronic DVT Chronic COPD History of placement of zyphyr valves in 2021 Osteoarthritis Anxiety home medication Weight loss 40 lb since September continue to monitor Chronic pain [place] p.r.n. DVT prophylaxis Code status full code Time Spent with Patient Time attestation: Total time spent providing and/or coordinating discharge services: 35 minutes Exam Narrative: General: Alert, awake, afebrile, in no acute distress HEENT: PERRL, no rhinorrhea, no post nasal drip, oropharynx clear. Neck: Trachea midline, no JVD, no lymphadenopathy. Cardiovascular: Regular rate regular rhythm, no murmurs, rubs or gallops, no peripheral edema. Respiratory: Clear to auscultation, coarse breath sound no respiratory distress Abdomen: Soft, nontender, nondistended, no rebound, no guarding, no peritoneal signs. Musculoskeletal: No joint swelling or deformity, normal muscle tone. Skin: No rashes or petechia, no signs of infection. Psychiatric: Alert and oriented, normal behavior and judgment for situation. Neurological: Alert and oriented to person, place, and time. Follows all commands. No focal deficits, speech is clear and fluent. DS: Data Data Completed and Pending Labs on day of discharge: Labs from last 24 hours 12/08/24 12/08/24 09:42 06:05 WBC 15.6 H RBC 4.00 L Hgb 12.8 L Hct 39.5 L MCV 98.8 MCH 32.0 MCHC 32.4 RDW 14.6 H Plt Count 252 MPV 11.6 H Immature Gran % (Auto) 0.5 Neut % (Auto) 85.0 H Lymph % (Auto) 4.2 L Sab[place] % (Auto) 10.2 H Eos % (Auto) 0.0 Baso % (Auto) 0.1 L Lymph # (Auto) 0.65 L [place] # (Auto) 1.6 H Eos # (Auto) 0.0 Baso # (Auto) 0.0 Abs Immat Gran (auto) 0.08 H Absolute Neuts (auto) 13.3 H Absolute Nucleated RBC 0.000 Nucleated RBC % 0.0 Sodium 140 Potassium 4.1 Chloride 103 Carbon Dioxide 24 Anion Gap 13 H BUN 18 Creatinine 0.64 L Estim Creat Clear Calc 100 Estimated GFR > 60 Glucose 164 H Calcium 9.8 Magnesium 2.3 Total Bilirubin 0.9 AST 26 ALT 32 Alkaline Phosphatase 47 Total Protein 7.0 Albumin 4.2 Preliminary micro results at discharge 12/04/24 22:53 Blood Culture - Preliminary Blood 12/04/24 22:53 Blood Culture - Preliminary Blood Imaging Radiologist's impression: ITS Impressions Chest X-Ray 12/04/24 19:48 IMPRESSION: 1. Emphysema. 2. 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 Discharge Plan Discharge Attending physician on discharge: Guzman Gutierrez Discharging Clinician: Guzman Gutierrez Anticipated Discharge Date/Time: 12/08/24 12:58 Patient Disposition: Home, Self-Care Activity: as tolerated Diet: heart healthy Patient Instructions: Antibiotic Form Patient Language: Jordanian Stand Alone Forms: General Discharge Information Follow-up/Referrals: UNKNOWN,DOCTOR [Primary Care Provider] - 1 Week Discharge Medications: New guaifenesin [Mucus Relief ER] 600 mg Tablet Extended Release 12hr 1,200 mg PO Q12HR Qty: 30 0RF prednisone 10 mg tablet 10 mg PO DIRECTED Qty: 60 0RF Rx Instructions: see taper instructions take 4 tabs twice daily x 2 days then 4 tabs daily x 2 days then 3 tab daily x 2 days then 2 tab daily x 2 days then 1 tab daily x 2 days then 1/2 tab daily (5 mg ) to continue Continued fluticasone furoate-vilanterol [Breo Ellipta] 100-25 mcg/dose blister with device 1 inh inhalation Q24H benzonatate 200 mg capsule 200 mg PO TID PRN (Reason: cough) Qty: 60 2RF hydrocodone-acetaminophen 5-325 mg Tablet 1 tablet PO Q6H PRN (Reason: Pain) latanoprost 0.005 % drops 1 drp EACH EYE DAILY aspirin [Children's Aspirin] 81 mg Tablet,Chewable 81 mg PO DAILY@0800 30 Days Qty: 30 0RF omeprazole 20 mg capsule,delayed release(DR/EC) 20 mg PO DAILY ondansetron 4 mg tablet,disintegrating 4 mg PO Q8H Qty: 14 0RF hydroxyzine HCl 25 mg tablet 25 mg PO TID PRN (Reason: anxiety) albuterol sulfate 2.5 mg /3 mL (0.083 %) solution for nebulization 2.5 mg inhalation Q6H PRN (Reason: Shortness Of Breath Or Wheezing) Qty: 360 5RF ipratropium bromide 0.02 % solution 2.5 ml inhalation Q6H PRN (Reason: shortness of breath or wheezing) Qty: 300 5RF roflumilast 500 mcg tablet See Rx Instructions .ROUTE .COMPLEX Qty: 30 11RF Dose Instruction: TAKE 1 TABLET BY MOUTH DAILY Rx Instructions: TAKE 1 TABLET BY MOUTH DAILY mupirocin 2 % ointment 1 applic topical BID-TID Qty: 22 3RF Rx Instructions: apply to nares albuterol sulfate 90 mcg/actuation HFA aerosol inhaler 1 - 2 puff inhalation Q4-6H PRN (Reason: shortness of breath or wheezing) Qty: 8.5 3RF fluticasone propionate 50 mcg/actuation spray,suspension See Rx Instructions .ROUTE .COMPLEX Qty: 16 10RF Dose Instruction: INSTILL ONE (1) SPRAY IN EACH NOSTRIL TWICE DAILY NEEDED Rx Instructions: INSTILL ONE (1) SPRAY IN EACH NOSTRIL TWICE DAILY NEEDED prednisone 5 mg tablet 5 mg PO DAILY Qty: 30 5RF azithromycin 500 mg tablet See Rx Instructions .ROUTE .COMPLEX Qty: 13 5RF Dose Instruction: TAKE 1 TABLET BY MOUTH ON MONDAYS, WEDNESDAYS, AND FRIDAYS. Rx Instructions: TAKE 1 TABLET BY MOUTH ON MONDAYS, WEDNESDAYS, AND FRIDAYS. promethazine-DM 6.25-15 mg/5 mL syrup 5 ml PO Q6H PRN (Reason: cough) Qty: 118 1RF Rx Instructions: TAKE 5ML'S BY MOUTH EVERY 6 HOURS NEEDED FOR COUGH DIRECTED Date of admission: 12/04/24 23:12 Primary Care Provider: UNKNOWN,DOCTOR Admitting Provider: Brittney Childers Attending physician on admission: Brittney Childers Condition: Improved
[2024-12-08] MEDS: AZITHROMYCIN 250 MG TABLET 500 MG PO (13:46)
== END 2024-12-08 13:45 | disposition home or self-care (01) | DRG 190 ==
LOC: ANHED 23:16 → ANH3MEDSUR 12-05 00:19
PROVIDERS: Emergency Medicine; Admitting Provider Internal Medicine; Emergency Provider Emergency Medicine; Visit Provider Internal Medicine
DX: J44.1 Chronic obstructive pulmonary disease with (acute) exacerbation (principal); J18.9 Pneumonia, unspecified organism; J96.10 Chronic respiratory failure, unspecified whether with hypoxia or hypercapnia; E44.0 Moderate protein-calorie malnutrition; J44.0 Chronic obstructive pulmonary disease with (acute) lower respiratory infection; G89.4 Chronic pain syndrome; F41.9 Anxiety disorder, unspecified; N40.0 Benign prostatic hyperplasia without lower urinary tract symptoms; K44.9 Diaphragmatic hernia without obstruction or gangrene; K21.9 Gastro-esophageal reflux disease without esophagitis; Z99.81 Dependence on supplemental oxygen; Z68.29 Body mass index [BMI] 29.0-29.9, adult; Z98.42 Cataract extraction status, left eye; Z98.41 Cataract extraction status, right eye; Z87.891 Personal history of nicotine dependence
CPT/HCPCS: 36415; 71045; 80053; 82948; 83690; 83735; 84443; 84484; 85025; 85610; 85730; 87040; 87637; 93005; 94640; 96361; 96365; 96367; 96375; 99285; A9270; J0456; J0696; J1885; J2270; J2405; J2919; J7030; J7512

== ENCOUNTER 2025-01-09 15:51 | Inpatient (IN) | payer MEDICARE, MEDICAID, SELFPAY ==
--- NOTE | ~2025-01-09 | XR_ITS ---
EXAMINATION: XR chest 1V portable DATE: 01/14/2025 09:17 INDICATION: Pneumonia TECHNIQUE: frontal view of the chest was obtained. COMPARISON: Chest radiograph dated 01/09/[address] dated 11/27/2024 FINDINGS: Chronic paramediastinal opacities in the right upper lung zone corresponding to upper lobar collapse secondary to endobronchial valves which are seen in the right suprahilar region. There is secondary v olume loss in the right hemithorax. Asymmetric increased lucency in the right lung due to combination of emphysema better appreciated on prior CT and compensatory hyperexpansion of the right middle and lower lobes. Mild linear discoid atelectasis in the right lower lung zone. No new airspace opacities, pulmonary edema, pleural effusion or pneumothorax. Heart size is normal. IMPRESSION: 1. 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 No ac elem cardiopulmonary disease. Reviewed, dictated and finalized at location A. IMPRESSION: 1. 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 No acute cardiopulmonary disease.
--- NOTE | ~2025-01-09 | XR_ITS ---
CHEST RADIOGRAPH, PA AND LATERAL CLINICAL HISTORY: Chest pain, shortness of breath . COMPARISON: 12/04/2024 TECHNIQUE: PA and lateral views of the chest. FINDINGS Redemonstration of chronic right upper lobe collapse with endobronchial valves detected. The remainder of the cardiomediastinal silhouette is otherwise unremarkable. Interval development of blunting of the right costophrenic sulcus suggesting a small right-sided pleu ral effusion. Multiple lucencies are redemonstrated although increased in the right mid to lower lung field. The lungs are otherwise clear. IMPRESSION: Significant emphysematous change, with possibly a small right-sided pleural effusion, an interval tracy nge from prior. Reviewed, dictated and finalized at location A. IMPRESSION: Significant emphysematous change, with possibly a small right-sided pleural eff usion, an interval change from prior.
--- NOTE | 2025-01-09 15:53 | ECG_ITS ---
Test Date: 2025-01-09 16:16:28 Measurements Intervals [place] Rate: 114 P: 51 MT: 142 QRS: 40 QRSD: 81 T: 75 QT: 311 QTc: 429 Interpretive Statements SINUS TACHYCARDIA SEPTAL MYOCARDIAL INFARCTION , OF INDETERMINATE AGE [40+ ms Q WAVE IN V1/V2] ABNORMAL ECG Electronically Signed On 01-10-2025 07:36:54 CDT by Dre Graham M.D.
--- OUTSIDE RECORDS SUMMARY | 2025-01-09 15:53 | XMS_ITS | CONTINUITY OF CARE DOCUMENT ---
Author Name jose juan manzano Address Unknown Organization [facility] Address [address] [place] [address] Phone [phone] Care Team Providers Care Hospital Nursing Assistant Name Role Phone Randy Wynne MD Unavailable [phone] OLIVIA SAUNDERS MD Unavailable [phone] JEAN FINCH MD Unavailable [phone] INSURANCE PROVIDERS Payer name Policy type / Coverage type [place] red green party ID [facility] [facility] Medicaid 1 [id number]
--- OUTSIDE RECORDS SUMMARY | 2025-01-09 15:54 | XMS_ITS | Clinical Summary ---
Author Organization [facility] Address [address] [place] [address] Phone Care Team Providers Care Trustee Of Estate Name Role Phone Bentley Kyle MD Primary Care Provider [phone] Allergies Active Allergy Reactions Criticality Noted Date [...] bronchoscopy Immunizations Immunization Administration Dates Next Due (Propanc)(12 YR UP) COVID-19 VACCINE - EMERGENCY USE AUTHORIZATION, MRNA, [id number](PF) 30 MCG/0.3 ML IM SUSP 01/10/2021 Influenza Seasonal Unspecified Formulation IM Social History Tobacco Use Types Packs/Day Years Used Date Smoking Tobacco: Never Smokeless Tobacco: Never Sex and Gender Information Value Date Recorded Sex Assigned at Not on file Legal Sex Male 3:05 PM JEEP DRIVER Gender Identity Not on file Sexual Orientation Not on file Last Filed Vital Signs Vital Sign Reading Time Taken Comments Blood Pressure 130/80 11/21/2021 1:06 PM JEEP DRIVER Pulse 87 11/21/2021 1:06 PM JEEP DRIVER Temperature 37.2 C (98.9 F) 04/20/2021 11:16 AM CDT Respiratory Rate 18 04/20/2021 3:29 PM CDT Oxygen Saturation 91% 11/21/2021 1:06 PM JEEP DRIVER 3 L Inhaled Oxygen Concentration - - Weight 116.1 kg (256 lb) 11/21/2021 1:06 PM JEEP DRIVER Height 175.3 cm (5' 9 ) 11/21/2021 1:06 PM JEEP DRIVER Body Mass Index 37.8 11/21/2021 1:06 PM JEEP DRIVER Plan of Treatment Health Maintenance Due Date [...] Insurance MEDICARE PART A AND B MEDICAID [place] Advance Directives For more information, please contact: [phone] * Full Code (Latest Code Status on File) Date Activated Date Inactivated Comments 04/18/2021 12:14 PM 04/20/2021 6:57 PM Care Teams Trustee Of Estate Relationship Specialty Start Date End Date Bentley Kyle MD [address] [place] [address] PCP - General Internal Medicine 04/18/21
--- OUTSIDE RECORDS SUMMARY | 2025-01-09 15:54 | XMS_ITS | Referral Summary ---
Author Organization [facility] [address] Address [address] [place] [address] Care Team Providers Care Time Lock Expert Name Role Phone Aristeo Khan MD Primary Care Provider [phone] Ravi Queen MD Unavailable [phone] Encounters Date Type Department Care Team Description 12/01/2024 8:22 AM CLIP COATER - 12/01/2024 11:59 PM CLIP COATER Hospital Encounter [facility] [address] [place] [address] [address] [place] [address] Natalia Georges NP Lumbar radicular pain (Primary Dx); FDC (current) use of opiate analgesic; Primary osteoarthritis [...] as needed for pain 120 tablet 5 Active HYDROcodone-acet aminophen (NORCO) 5-325 mg per tabletIndication s:Pain Take 1 tablet by mouth 4 (four) times a day as needed for pain 120 tablet 5 025 Active HYDROcodone-acet aminophen (NORCO) 5-325 mg per tabletIndication s:Pain Take 1 tablet by mouth 4 (four) times a day as needed for pain 120 tablet 5 025 Active naloxone (NARCAN) 4 mg/actuation spray,non-aeroso lIndications:John g term (current) use of opiate analgesic Administer 1 spray into affected nostril(s) as needed for opioid reversal 1 each 5 Active Active Problems Problem Noted Date Diagnosed [...] on file Legal Sex Male 8:01 PM CLIP COATER Gender Identity Not on file Sexual Orientation Not on file Last Filed Vital Signs Vital Sign Reading Time Taken Comments Blood Pressure 142/82 09/01/2024 9:08 AM CLIP COATER Pulse 85 09/01/2024 9:08 AM CLIP COATER Temperature 36.9 C (98.5 F) 04/02/2024 12:40 PM CDT Respiratory Rate 22 09/01/2024 9:08 AM CLIP COATER Oxygen Saturation 95% 09/01/2024 9:08 AM CLIP COATER Inhaled Oxygen Concentration - - Weight 111.1 [...] Comments PSA SCREEN Routine 09/27/2022 10:21 AM CLIP COATER from Last 3 Months or Most Recently Relevant to Health Maintenance Results * PSA screen (09/27/2022 10:21 AM CLIP COATER) PSA-Total 0.70 <=5.40 ng/mL ALVAG[facility] JULITO Comment: Interpretive Data AGE SEX REFERENCE INTERVAL [...] revised 22. Blood 09/27/2022 10:2 1 AM CLIP COATER 09/27/2022 10:44 AM CLIP COATER Aristeo Khan MD LAB BLOOD ORDERABLES Final Result [facility] [address] [facility] Department [place] [address] from Last 3 Months or Most Recently Relevant to Health Maintenance Insurance MEDICARE [place] MEDICARE [facility] IDPA [facility] MEDICARE ADVANTAGE IDPA [facility] MEDICARE ADVANTAGE Care Teams Time Lock Expert Relationship Specialty Start Date End Date Aristeo Khan MD [address] [place] [address] PCP - General 06/28/22 Ravi Queen MD [address] [place] [address] [address] [place], [place] [address] [address] Anesthesiologist Pain Management 09/05/22
--- OUTSIDE RECORDS SUMMARY | 2025-01-09 15:54 | XMS_ITS | Clinical Summary ---
Author Organization [facility] Address [address] [place] [address] Phone Care Team Providers Care Fiberglass Dowel Drawing Operator Name Role Phone Bentley Kyle MD Primary Care Provider [phone] Medications PAIN & FEVER EXTRA STRENGTH 500 [...] age to complete this topic Insurance MEDICAID [place] MEDICARE Care Teams Fiberglass Dowel Drawing Operator Relationship Specialty Start Date End Date Bentley Kyle MD [address] [place] [address] PCP - General Internal Medicine 02/01/21
--- OUTSIDE RECORDS SUMMARY | 2025-01-09 15:54 | XMS_ITS | Clinical Summary ---
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; Primary osteoarthritis [...] on file Legal Sex Male 8:01 PM CARTON FILLER Gender Identity Not on file Sexual Orientation Not on file Obstetrics History Last Filed Vital Signs Vital Sign Reading Time Taken Comments Blood Pressure 142/82 09/01/2024 9:08 AM CARTON FILLER Pulse 85 09/01/2024 9:08 AM CARTON FILLER Temperature 36.9 C (98.5 F) 04/02/2024 12:40 PM CDT Respiratory Rate 22 09/01/2024 9:08 AM CARTON FILLER Oxygen Saturation 95% 09/01/2024 9:08 AM CARTON FILLER Inhaled Oxygen Concentration - - Weight 111.1 [...] Comments PSA SCREEN Routine 09/27/2022 10:21 AM CARTON FILLER from Last 3 Months or Most Recently Relevant to Health Maintenance Results * PSA screen (09/27/2022 10:21 AM CARTON FILLER) PSA-Total 0.70 <=5.40 ng/mL [facility] Comment: [...] revised 22. Blood 09/27/2022 10:2 1 AM CARTON FILLER 09/27/2022 10:44 AM CARTON FILLER us Aristeo Khan MD LAB BLOOD ORDERABLES Final Result [facility] [address] [facility] Department [place] [address] from Last 3 Months or Most Recently Relevant to Health Maintenance Insurance MEDICARE [facility] MEDICARE [facility] IDPA [facility] MEDICARE ADVANTAGE IDPA [facility] MEDICARE ADVANTAGE Care Teams Theatre Director Relationship Specialty Start Date End Date Aristeo Khan MD [address] [place] [address] PCP - General 06/28/22 Ravi Queen MD [address] [place] [address] [address] [place] [address] Anesthesiologist Pain Management 09/05/22
--- OUTSIDE RECORDS SUMMARY | 2025-01-09 15:54 | XMS_ITS | Data Portability ---
Author Organization [place] [facility], Main Office Address [address] [place] [address] Care Team Providers Care Transfer Knitter Name Role Phone GUILLAUME ERAZO Primary Care Provider [phone] GUILLAUME ERAZO Referring Provider [phone] Assessment Encounter Date Assessment Date Assessment LastModified by Organization Details LastModified Time 12/22/2024 12/22/2024 I have reconciled the patient's medications post their discharge from inpatient facility. [email or web address] Not available 12/22/2024 14:59:13 Plan of Treatment Reminders Order Date Submit Date Provider Last Modified By Organization Details Last Modified Time Details Appointments Follow Up 30 2024 09:30A Jesu Nolasco NP Not available Not available Not available Lab TSH, serum or plasma [address] (Lab), [address] [place], [address], 06/02/2024 10:46:58 T4, free, serum [address] (Lab), [address] [place], [address], 06/02/2024 10:47:09 CBC w/ auto diff [address] (Lab), [address] [place], [address], 06/02/2024 10:46:49 PSA, serum or plasma 2023 024 [facility] (Lab), [address] [place], [address], 03/06/2024 00:11:54 lipid panel, serum 2023 024 [facility] (Lab), [address] [place], [address], 03/06/2024 00:11:55 TSH, serum or plasma [email or web address] (Lab), [address] [place], [address], 03/19/2024 08:05:47 CBC w/ auto diff 2023 024 [facility] (Lab), [address] [place], [address], 03/06/2024 00:11:55 glycohemo globin, total, blood 2023 024 [facility] (Lab), [address] [place], [address], 03/06/2024 00:11:55 CMP, serum or plasma 2023 024 [facility] (Lab), [address] [place], [address], 03/06/2024 00:11:[address] referral - Please call patient to schedule an appointme nt. Thank you. 2023 024 [email or web address] [facility] Neurology [address], [place], [address], 06/30/2024 08:46:[address] referral - Please call patient to schedule an appointme nt. Thank you. 2023 024 [email or web address] [facility] Clinic [place] [address] [facility] [address], [place], [address], 04/02/2024 09:31:09 Procedures None recorded. Surgeries None recorded. Imaging None recorded. Medication Orders promethaz ine-DM 6.25 mg-15 mg/5 mL oral syrup 2024 025 [facility] [id number] In [facility], [address] [place], [address], 12/22/2024 15:04:11 buspirone 5 mg tablet 2024 025 [facility]48196, [address] [place], [place], [id number], 12/22/2024 15:03:13 hydroxyzi ne HCl 25 mg tablet 2024 025 [facility] #69682, [address] [place], [place], [id number], 12/22/2024 15:04:35 lorazepam 0.5 mg tablet 2024 025 [facility], [address] [place], [place], [id number], 12/22/2024 14:50:36 buspirone 5 mg tablet 2024 025 [email or web address]37090, [address] [place], [place], [id number], 11/03/2024 15:56:16 Patient TargetsNo targets recorded. Patient Instructions Encounter Date Encounter Id Patient Instructions Last Modified By Organization Details Last Modified Time 03/05/2024 [id number] dementia rating scale-2* Not available 03/05/2024 15:07:17 alcohol misuse* [email or web address] Not available 03/05/2024 15:07:25 depression screening* [email or web address] Not available 03/05/2024 15:07:28 multi-dimensiona l health assessment questionnaire* [email or web address] Not available 03/05/2024 15:07:20 Personalized [facility] lt Plan and Screening Recommendations Advance Directives [...] Screening: Negative [email or web address] Not available 03/05/2024 14:39:26 12/22/2024 [id number] Thank you for yo ur visit to our office today. We would like to request that you reach out to your referring or previous provider and request that they send us a Summary of Care in electronic form, so that we may have it on file in your medical record. At your visit, we had the medical records we needed to provide you with the best possible care; however, for insurance purposes, an electronic Summary of Care is beneficial. Thank you for your assistance in obtaining this information and we look forward to providing continued care to you. Please review your medication list from the Summary of Care for this visit. If there are any differences from what you are currently taking at home, please call us to discuss. [email or web address] Not available 12/22/2024 14:41:35 Homebound Status : {{Patient has an inability to leave the home without a taxing effort and assistance from another person Does not meet homebound status}} Required Home Health Services: {{none intermediate, physical therapy, occupational therapy intermediate, physical therapy intermediate}} Durable Medical Equipment needed: {{cane walker walke r with seat manual wheelchair bedside commode oxygen}} Billing Guidelines CPT code 36395- Transitional Care Management services with moderate medical decision complexity (efww-ml-hutw visit within 14 days of discharge). CPT code 26713- Transitional Care Management services with high medical decision complexity (esbg-ei-wohw visit within 7 days of discharge). [email or web address] Not available 12/22/2024 14:41:35 Reason for Referral Neurologist Referral for Hea dache headaches Please call patient to schedule an appointment. Thank you. Referring Physician: Gumaro Harrison [facility], Encounter Date: 03/05/2024 Neurologist Referral for Hea dache recurrent headaches Please call patient to schedule an appointment. Thank you. Referring Physician: Gumaro Harrison [facility], Encounter Date: 06/02/2024 Results Created Date Observation Date Name Description Value Unit Range Abnormal Flag Note LastModifiedBy Organization Detail LastModifiedTime 08/26/2008/26/2023 XR, hip, unila teral , 2 or 3 view No observ ation record ed. [email or web address] [facility] [address] [place], [address], 09/19/2023 16:59:52 09/02/20 23 09/02/2023 XR, lumba r spine No observ ation record ed. [email or web address] [facility] [address] [place], [address], 09/19/2023 16:59:52 10/24/19 24 10/24/2023 XR, chest No observ ation record ed. [address], [address], 10/30/2023 09:19:04 10/29/19 24 10/29/2023 XR, chest No observ ation record ed. [address], [address], 10/30/2023 09:20:04 02/11/20 24 02/11/2024 XR, chest , 2 view No observ ation record ed. [email or web address] [address], [place], [address], 02/18/2024 09:41:31 02/19/20 24 02/19/2024 LDCT, chest , for lung cance r scree kevin No observ ation record ed. [email or web address] [address], [place], [address], 03/23/2024 16:47:33 03/24/20 24 03/24/2024 XR, chest , 1 view No observ ation record ed. [email or web address] [address], [place], [address], 04/01/2024 09:41:11 08/25/20 24 08/25/2024 MRI, brain + brain stem, w/o contr ast No observ ation record ed. [email or web address] [address], [place], [address], 08/26/2024 13:59:16 09/06/20 24 09/05/2024 XR, chest , 2 view No observ ation record ed. [address], [place], [address], 09/07/2024 09:58:54 Result Notes None recorded. Problems Name Problem SNOMED Code Status Onset Date Resolution Date Notes Provider Name and Address Organization Details Recorded Time Chronic obstructiv e pulmonary disease 27264900 Active Not Available [facility] 3 18:04:39 Acute exacerbati on of chronic obstructiv e pulmonary disease 316985599 Active 2016 Not Available [facility] 3 18:04:39 Benign prostatic hyperplasi a 355531122 Active 2016 Not Available [facility] 3 18:04:39 Severe chronic obstructiv e pulmonary disease 260450689 Active 2018 Not Available [facility] 3 18:04:39 Chronic respirator y failure 31554718 Active 2018 Not Available [facility] 3 18:04:39 Ingrowing toenail 440631521 Active 2021 Not Available [facility] 3 18:04:39 Foot pain 54149865 Active 2021 Not Available [facility] 3 18:04:39 Tobacco dependence syndrome 40772156 Active Not Available [facility] 3 18:04:39 Seasonal allergy 198247703 Active 2022 RAY Leal [address], [place], [address] , [place] [facility] [employer] [facility] [employer] 3 10:55:26 Chronic cough 87579380 Active 2022 RAY Leal [address], [place], [address] , [place] [employer] [employer] 3 10:56:49 Pain of right knee joint 7839469675892 00 Active 2022 RAY Leal [address], [place], [address] , [employer] [facility] 3 11:01:39 Gastroesop hageal reflux disease 412491466 Active 2022 RAY Leal [address], [place], [address] , [employer] [facility] 3 11:04:34 Lower abdominal pain 30665881 Active 2022 RAY Leal [address], [place], [address] , [employer] [facility] [employer] [facility] [employer] 3 10:57:20 Anxiety 20154597 Active 2022 Jolynn quintaan, [place] - [facility] [employer] [facility] 3 09:41:00 Arthritis 1127300 Active 2022 Jolynn quintana, [place] [facility] 3 09:41:08 Disorder of eye 241624599 Active 2022 Jolynn quintana [facility] 3 09:41:15 Headache 29890558 Active 2022 Jolynn Zhou mariano, [facility] [employer] [facility] 3 09:41:22 Heartburn 57729080 Active 2022 Jolynn Zhou mariano, [facility] [employer] [facility] 3 09:41:29 Disorder of lung 05796625 Active 2022 Jolynn Zhou mariano, [facility] [employer] [facility] 3 09:41:38 Ingrowing nail of toe of right foot 6811515393548 9102 Active 2022 Mata Lugo DPM [address], [place], [address] , [facility] [employer] [facility] 3 10:57:35 Pain in right hip joint 0311251919864 02 Active 2022 GILMAR Velasquez [address], [place], [address] , [facility] [employer] [facility] 3 16:05:21 Low back pain 533239018 Active 2022 GILMAR Velasquez [address], [place], [address] , [facility] [employer] [facility] 3 14:31:44 Hyperthyro idism 49654921 Active 2023 GILMAR Velasquez [address], [place], [address] , [facility] [employer] [facility] 4 10:06:09 Notes:PULMONARY DISEASE, USE OF NSAIDS Problem Notes None recorded. Procedures Surgical History Date Name Laterality Status Provider Name and Address Organization Details Recorded Time 03/05/20 Medicare Wellness CPT Code, subsequent completed Hortencia Gallagher RN [facility] [employer] [facility] 03/05/2024 09:30:38 06/06/20 Nail Debridement completed Mata Lugo DPM [address], [place], [address], [facility] [employer] 06/06/2023 10:57:28 02/27/20 Medicare Wellness CPT Code, Initial completed RAY Leal [address] [facility], [place] [address], [place], [address], [facility] [employer] [facility] 02/26/2023 12:38:15 Unlisted procedure nose completed Not Available [facility] 12/12/2022 18:04:04 Imaging Results Imaging Date Name Status LastModified by Organiz ation Details LastModified Time 08/26/2023 XR, hip, unilateral, 2 or 3 view completed [address] [place], [address], 09/19/2023 16:59:52 09/02/2023 XR, lumbar spine completed [address] [place], [address], 09/19/2023 16:59:52 10/24/2023 XR, chest completed [email or web address] [address], [address], 10/30/2023 09:19:04 10/29/2023 XR, chest completed [email or web address] [address], [address], 10/30/2023 09:20:04 02/11/2024 XR, chest, 2 view completed [address], [address], 02/18/2024 09:41:31 02/19/2024 LDCT, chest, for lung cancer screening completed [email or web address] [address], [address], 03/23/2024 16:47:33 03/24/2024 XR, chest, 1 view completed [address], [address], 04/01/2024 09:41:11 08/25/2024 MRI, brain + brain stem, w/o contrast completed [email or web address] [facility] [address], [place], [address], 08/26/2024 13:59:16 09/05/2024 XR, chest, 2 view completed [email or web address] [facility] [address], [place], [address], 09/07/2024 09:58:54 Procedure Notes None recorded. Medical Equipment None Reported. Allergies Allergen ID Allergen Name Allergen Category Reaction Reaction Severity Criticality Documentation Date Start Date Code Code System Note Provider Name and Address Organization Details Recorded Time 22533 oxycodone medicatio n Not available Not available Not available 12/12/2022 7804 RxNorm Not Available [facility] 18:05:39 Medications Name Sig Start Date Stop Date Status Note LastModified by Organization Details LastModified Time cyclobenz aprine 10 mg tablet 07/10 completed Not Available Not Available Not Available latanopro st 0.005 % eye drops INSTILL 1 DROP INTO BOTH EYES AT BEDTIME DIRECTED active Not Available Not Available No t Available buspirone 5 mg tablet TAKE 1 TABLET BY MOUTH EVERY DAY 2024 active Not Available Not Available Not Avai lable promethaz ine-DM 6.25 mg-15 mg/5 mL oral syrup TAKE 5ML BY MOUTH EVERY 6 HOURS NEEDED FOR COUGH active Not Available Not Available No t Available prednison e 10 mg tablet TAKE 1/2 TABLET BY MOUTH EVERY DAY 12/22 completed Not Available Not Available Not Available ipratropi um 0.5 mg-albute rol 3 [...] THREE TIMES A DAY NEEDED FOR COUGH 12/22 completed Not Available Not Available Not Available ranitidin e 300 mg tablet TAKE [...] Not Available amoxicill in 500 mg tablet 12/22 completed Not Available Not Available Not Available [...] a day by oral route as needed. 12/22 completed Not Available Not Available Not Available [...] Not Available Not Available No t Available doxycycli ne monohydra te 100 mg capsule 12/22 completed Not Available Not Available Not Available hydrocodo ne 7.5 mg-acetam inophen 325 mg tablet TK 1 T PO Q 8 H active Not Available Not Available No t Available prednison e 2.5 mg tablet 06/06 completed Not Available Not Available Not Available ranitidin e 150 mg tablet 04/19 completed Not Available Not Available Not Available prednison e 50 mg tablet 12/22 completed Not Available Not Available Not Available [...] Available Not Available albuterol sulfate HFA 90 mcg/actua tion aerosol inhaler INHALE 1-2 PUFFS BY MOUTH EVERY 6 HOURS NEEDED active Not Available Not Available No t Available ondansetr on 4 mg disintegr ating tablet 12/22 completed Not Available Not Available Not Available [...] Not Available Not Available Not Available oxycodone 5 mg tablet 01/09 completed [...] Updated DateTime 3 175.26 cm 32.5 kg/m2 97783.3 2 g 109 /min 18 /min 95 % 95 % 109 mm[Hg] 63 mm[Hg] Ang[facility]lica [facility] 3 11:44:21 Date Recorded Body height Body mass index (BMI) Body weight Body temperature Oxygen saturation Oxygen saturation in Arterial blood by Pulse oximetry Inhaled oxygen flow rate Heart rate Systolic blood pressure Diastolic blood pressure Provider Name and Address Organization Details Last Updated DateTime 4 175.26 cm 34.6 kg/m2 713016. 61 g 97.6 [degF] 92 % 92 % 3 L/min 102 /min 142 mm[Hg] 88 mm[Hg] Sherita Rosas RN [facility] [employer] [facility] 4 14:27:39 Date Recorded Body height Body mass index (BMI) Body weight Body temperature Oxygen saturation Oxygen saturation in Arterial blood by Pulse oximetry Inhaled oxygen flow rate Heart rate Systolic blood pressure Diastolic blood pressure Provider Name and Address Organization Details Last Updated DateTime 4 175.26 cm 35.1 kg/m2 113907. 98 g 100 [degF] 93 % 93 % 3 L/min 89 /min 130 mm[Hg] 70 mm[Hg] Sherita Rosas RN [facility] [employer] [facility] 4 09:55:40 Date Recorded Body height Body temperature Heart rate Oxygen saturation Oxygen saturation in Arterial blood by Pulse oximetry Systolic blood pressure Diastolic blood pressure Provider Name and Address Organization Details Last Updated DateTime 5 175.26 cm 98 [degF] 100 /min 97 % 97 % 138 mm[Hg] 82 mm[Hg] Willian Lerma RN [facility] [employer] [facility] 5 15:28:02 Date Recorded Body height Body mass index (BMI) Body weight Body temperature Heart rate Oxygen saturation Oxygen saturation in Arterial blood by Pulse oximetry Inhaled oxygen flow rate Pain severity - 0-10 verbal numeric rating [Score] - Reported Systolic blood pressure Diastolic blood pressure Provider Name and Address Organization Details Last Updated DateTime 5 175.26 cm 30.6 kg/m2 87265.6 2 g 98.7 [degF] 108 /min 97 % 97 % 3 L/min 3 134 mm[Hg] 80 mm[Hg] Niurka Martínez MA [facility] [employer] [facility] 5 14:48:25 Social History Question Answer Notes LastModified by Organizat ion Details LastModified Time Tobacco Smoking Status Former Smoker Not Available [facility] 12/12/2022 18:04:03 What Is Your Level Of Alcohol Consumption? Occasional [id number] Information not available 12/12/2022 What Is Your Level Of Caffeine Consumption? None [email or web address] Information not available 01/09/2023 In The 14 Days Before Symptom Onset, Have You Had Close Contact With A Laboratory-confir med COVID-19 While That Case Was Ill? No [id number] Information not available 12/12/2022 In The 14 Days Before Symptom Onset, Have You Had Close Contact With A Person Who Is Under Investigation For COVID-19 While That Person Was Ill? No [id number] Information not available 12/12/2022 What Type Of Diet Are You Following? REGULAR [email or web address] Information not available 01/09/2023 What Is Your Occupation? Disability [id number] Information not available 12/12/2022 When Did You Quit Smoking? 1-5yearssincel astcigarette [id number] Information not available 12/12/2022 Do You Use Any Illicit Or Recreational Drugs? No [email or web address] Information not available 01/09/2023 Has Tobacco Cessation Counseling Been Provided? No [id number] Information not available 12/12/2022 Have You Recently Traveled Abroad? No [id number] Information not available 12/12/2022 Do You Have Any Dietary Restrictions? No [email or web address] Information not available 01/09/2023 Do You Or Have You Ever Used Any Other Forms Of Tobacco Or Nicotine? No MIGRATION.[id number] Information not available 12/12/2022 Sex: Unknown Functional Status Question Answer Note LastModified by Organization D etails LastModified Time What is your exercise level? Heavy [email or web address] Information not available 01/09/2023 Mental Status None recorded. Family History Relationship Description Onset Age of this Age Resolved Age Notes LastModified by Organization Details LastModified Time Sister Diabetes mellitus [id number] Not available 12/12/2022 18:04:04 Sister Cerebrovascu lar accident [id number] Not available 12/12/2022 18:04:04 Sister Hypertensive disorder [id number] Not available 12/12/2022 18:04:04 Mother Diabetes mellitus [id number] [id number] Not available 12/12/2022 18:04:04 Brother Cerebrovascu lar accident [id number].177 [id number] Not available 12/12/2022 18:04:04 Brother Malignant neoplastic disease [id number].165 [id number] Not available 12/12/2022 18:04:04 Father Heart disease [id number].687 [id number] Not available 12/12/2022 18:04:04 Father Malignant neoplastic disease [id number] Not available 12/12/2022 18:04:04 Mother Cerebrovascu lar [...] PULMONARY DISEASE Y USE OF NSAIDS Y LUNG DISEASE/DISORDER Y BACK / NECK PROBLEMS Y HEARTBURN / REFLUX Y Immunizations Vaccine Type Date Status Note Provider Nam e and Address Organization Details Recorded Time Influenza, split virus, trivalent, preservative 8 completed Not Available [facility] 12/12/2022 18:05:38 Influenza, split virus, quadrivalent, PF 9 completed Not Available [facility] 12/12/2022 18:05:38 Influenza, split virus, quadrivalent, PF 8 completed Not Available [facility] 12/12/2022 18:05:38 Tdap 3 completed RAY Leal [address] [place] [address], [address], [facility] 02/26/2023 13:00:04 Past Encounters Encounter ID Performer Location Encounter Start Date Encounter Closed Date Diagnosis/Indication Diagnosis SNOMED-CT Code Diagnosis ICD10 Code Diagnosis Note [id number] [facility] [address] [place] [address] 06/14/2022 00:00:00 06/19/2022 11:50:24 [id number] [facility] [address] [place] [address] 07/09/2022 00:00:00 07/09/2022 13:46:46 [id number] RAY Leal [facility] [address] [place] [address] [address] [place] [address] 01/09/2023 09:54:34 01/09/2023 11:15:00 Chronic obstructive pulmonary disease 43061390 J44.9 Establishe d with pulmonolog ist.He is on 3L of oxygen regularly, he states he does not leave it on though all the time. In warmer weather and sitting still he is usually okay without it. O2 sat 94% today without his O2 on.Current ly on prednisone 10mg daily, roflumilas t 500mcg daily, albuterol inhaler/so lution PRN. Seasonal allergy 8739302 04 J30.2 Chronic cough 68501278 R 05.3 Always exacerbate d when he comes down with any infection. Will use cough medication PRN. Pain of ri ght knee joint 5750788655 65078 M25.561 Followed by pain management who prescribes hydrocodon e. Gastroesop hageal reflux disease 094110937 K21.9 [id number] RAY Leal [facility] [address] [place] [address] 02/26/2023 10:25:25 02/26/2023 11:43:04 Adult health examination 453181637 Z00.[address] Ibarra (cardiolog y) 2 weeks ago and ER last week. Will get copies. Covid vaccines- up to date on boostersFl u vaccine- recommende d each fallTetanu s vaccine- will update todayShing les vaccine- up to date Colonoscop y- 2021, wnl Recommende d routine eye exams and dental cleanings. Administra tion of diphtheria, pertussis, and tetanus vaccine 415070568 Z23 Chronic ob structive pulmonary disease 17183973 J44.9 Stable overall. Continue follow-up with pulmonolog [...] daily, albuterol inhaler/so lution PRN. Ingrowing toenail 865960 009 L60.0 Screening for disorder 337578406 Z13.9 [id number] RAY Leal [facility] [facility] [address] [facility] [address] [place] [address] 03/19/2023 10:15:08 03/19/2023 12:42:51 Lower abdominal pain 47466943 R10.30 No pain on exam today. Pain is non-specif ic, will travel from one side to the other. No associated GI symptoms. Discussed red flag symptoms and ER precaution s, pt. expresses understand ing. Will continue to monitor symptoms. [id number] Mata Lugo DPM [facility] [place] [address] [place] [address] 06/06/2023 09:24:40 06/06/2023 11:23:54 Ingrowing nail of toe of right foot 6788883975 6758169 L60.0 great toe medial cornerslan t back procedure performedF ollow-up as needed if becomes problemati c may require partial matrixecto [id number] RAY Leal [employer] [facility] [facility] [address] [place] [address] 08/12/2023 08:29:41 08/12/2023 09:38:22 Chronic obstructive pulmonary disease 35770282 J44.9 Stable overall. Continue follow-up with pulmonolog [...] t 500mcg daily, albuterol inhaler/so lution PRN. [id number] Mata Lugo DPM [facility] [address], [address] [place] [address] 09/17/2023 11:36:50 09/30/2023 17:32:[id number] [facility] Primary Care [facility] [address] [facility] [place] [address] 03/05/2024 13:57:58 03/05/2024 15:12:45 Adult health examination [id number] Z00.00 Screening for disorder 835888958 Z13.9 Diabetes m ellitus screening 011735386 Z13.1 Hyperlipid emia screening 476876369 Z13.220 Thyroid di sorder screening 249079061 Z13.29 Anemia screening 4715027 07 Z13.0 Headache 82489499 R51.9 -hx of headaches often, nose bleeds twice/week , vision disturbanc es-hx of MRI in but was unable to complete-h e would like a workup by neuro-neur ologist referral given [id number] GILMAR Velasquez [facility] Primary Care [facility] [address] [facility] [address] [place] [address] 06/02/2024 09:44:35 06/02/2024 10:36:45 Chronic obstructive pulmonary disease 97894657 J44.9 stable. sees pulmonolog y next monthverba kirilles walking more yesterday than he has in the last couple yearsstill uses nebulizer solution BID-TID prn Hyperthyroidism 70569875 E05.90 Headache 17662538 R51.9 -hx of headaches often, nose bleeds twice/week , vision disturbanc es-hx of MRI in but was unable to complete-h e would like a workup by neuro-neur ologist referral given [id number] GLIMAR Thomas [facility] Primary Care [facility] [address] [facility] [address] [place] [address] 11/03/2024 15:15:50 11/03/2024 15:57:32 Anxiety 63700063 F41.9 Will increase Lorazepam to 0.5mg TID and add Buspirone 5mg daily.Stacy ent will follow up in 1 month, sooner if needed. Chronic ob structive pulmonary disease 45916181 J44.9 oxygen dependent, going to Pulmonary rehab Saturday, Saturday and Saturday. [id number] GILMAR Thomas [facility] [address] [facility] [address] [place] [address] 12/22/2024 14:33:11 12/22/2024 15:33:25 Transition of care [id number] 105 Z75.8 Anxiety 85266268 F41.9 Chronic cough 71588138 R 05.3 Health Concerns Section Related Observation LastModified by Organization Detai ls LastModified Time None Recorded Concern Status LastModified by Organization Details LastModified Time None Recorded Advance Directives Directive None Recorded Payers Encounter Date Sequence Insurance Name Policy Number Policy Walls Covered Member ID Walls Member ID Guarantor Name 09/17/2023 1 [place] [id number] [place] 09/17/2023 2 [place] WHEN [place]ARE OR MEDICARE REPLACEMENT PRIMARY) [place] [id number] [place] 03/05/2024 2 [place] REPLACEMENT PRIMARY) [place] [id number] [place] 03/05/2024 1 [facility] (MEDICARE REPLACEMENT/AD VANTAGE - HMO) [id number] [place] [id number] [place] 06/02/2024 2 [place] REPLACEMENT PRIMARY) [place] [id number] [place] 06/02/2024 1 [facility] (MEDICARE REPLACEMENT/AD VANTAGE - HMO) [id number] [place] [id number] [place] 11/03/2024 2 [place]ICARE REPLACEMENT PRIMARY) [place] [id number] [place] 11/03/2024 1 [facility] (MEDICARE REPLACEMENT/AD VANTAGE - HMO) [id number] [place] [id number] [place] 12/22/2024 2 [place] OR MEDIC[place] REPLACEMENT PRIMARY) eBnt[place] [id number] [place] 12/22/2024 1 [facility] (MEDICARE REPLACEMENT/AD VANTAGE - HMO) [id number] [place] [id number] [place] Notes Date Note Type Note Provider Name and Address Organization Details Recorded Time 03/05/2024 text/html pt is here for annual physical Gumaro Harrison, [facility] [address], [address], [place], [address], [employer] 03/05/2024 15:11:48 06/02/2024 text/html pt is here for f/u Gumaro dumont [facility] [address], [place], [address], [employer] 06/02/2024 10:31:58 11/03/2024 text/html Patient is a [...] clothes to be touching him.Patient denies SI/HI. GILMAR Thomas [address], [place], [address], [employer] 11/03/2024 21:36:20 12/22/2024 text/html Patient is a 64 year old male that presents to the office for hospital f/u. Patient is accompanied by . Patient was admitted to [facility] in November for COPD exacerbation and was discharged on 12/08/24.Patient reports he is doing well and has no concerns at this time. Patient state I feel great. I actually feel like living .Patient's reports patient is doing much better since starting Buspirone. GILMAR Thomas [address], [place], [address], [employer] 12/26/2024 16:09:51
--- OUTSIDE RECORDS SUMMARY | 2025-01-09 15:54 | XMS_ITS | Data Portability ---
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 Plan of Treatment Reminders Order Date Submit Date Provider Last Modified By Organization Details Last Modified Time Details Appointments None recorded. Lab hemoglobin + hematocrit , blood 2019 [facility], [address] [place] [address], [address], [place], [address], 0 11:29:35 hemoglobin + hematocrit , blood 2019 020 [facility] Lab Orders, [address], [place], [address], 0 11:29:43 Referral None recorded. Procedures None recorded. Surgeries None recorded. Imaging None recorded. Medication Orders tamsulosin 0.4 mg capsule 2019 020 INTERFACE Not available 0 11:29:16 promethazi ne-DM 6.25 mg-15 mg/5 mL oral syrup 2019 020 INTERFACE Not available 0 11:20:00 Patient TargetsNo targets recorded. Patient Instructions Encounter Date Encounter Id Patient Instructions Last Modified By Organization Details Last Modified Time 06/17/2020 [id number] ER (Refused) Discharge summary STAT labs at [facility] Follow up with GI (today) Follow up with the nurse clinician Follow up in 1-2 weeks gris Not available 06/17/2020 11:23:00 He has refused a n ER evaluation, Me, myself, I feel good gris Not available 06/17/2020 11:22:28 07/15/2020 [id number] Discharge summar y and lab results from MATHEW landry Not available 07/15/2020 11:35:23 Reason for Referral None Reported. Results Created Date Observation Date Name Description Value Unit Range Abnormal Flag Note LastModifiedBy Organization Detail LastModifiedTime 11/11/19 20 11/11/2019 XR, knee, 3 view No observ ation record ed. [facility] (Imaging) [address] [place], [address], 11/18/2019 10:38:18 12/07/19 20 12/07/2019 LDCT, chest , for lung cance r scree kevin No observ ation record ed. [address] (Imaging) [address] [place], [address], 12/15/2019 14:52:56 06/02/20 20 06/01/2020 XR, chest No observ ation record ed. [facility] (Imaging) [address] [place], [address], 06/17/2020 11:17:19 06/02/20 20 06/02/2020 CT, neck, soft tissu e, w/wo contr ast No observ ation record ed. [facility] (Imaging) [address] [place], [address], 06/17/2020 11:17:19 06/02/20 20 06/02/2020 CT, neck, soft tissu e, w/o contr ast No observ ation record ed. [facility] [address], [place], [address], 06/17/2020 11:17:19 06/03/20 20 06/03/2020 opal martinez ow study No observ ation record ed. [facility] (Imaging) [address] [place], [address], 06/17/2020 11:17:19 06/03/20 20 06/03/2020 XR, chest No observ ation record ed. [facility] (Imaging) [address] [place], [address], 06/17/2020 11:17:19 06/05/20 20 06/05/2020 CT, chest , w/o contr ast No observ ation record ed. [facility] (Imaging) [address] [place], [address], 06/17/2020 11:17:19 Result Notes None recorded. Problems Name Problem SNOMED Code Status Onset Date Resolution Date Notes Provider Name and Address Organization Details Recorded Time Allergic rhinitis 19497859 Active 2017 Katlyn Barrett MD Attn: Accountin g,[address] [facility], [place], [address], [place] [facility] 0 11:06:48 Abnormal weight gain 942704048 Active 2018 Katlyn Barrett MD Attn: Accountin g,[address] [facility], [place], [address], [place] [facility] 0 11:06:48 Heartburn 36827646 Active Katlyn Barrett MD Attn: Accountin g,[address] [facility], [place], [address], [place] [facility] 0 11:06:48 Impotence Active Katlyn Barrett MD Attn: Accountin g,[address] [facility], [place], [address], [place] [facility] 0 11:06:48 Cough 61624797 Active Katlyn Barrett MD Attn: Accountin g,[address] [facility], [place], [address], [place] [facility] 0 11:06:48 Chronic lung disease 032537657 Active Katlyn Barrett MD Attn: Accountin g,[address] [facility], [place], [place], [address] [place] [address] 2, [place] [facility] 0 11:06:48 Knee pain Active Katlyn Barrett MD Attn: Accountin g,[address] [facility], [place], [place], [address] [place] [address] 2, [place] [facility] 0 11:06:48 Chondroma lacia of patella 79676483 Active Katlyn Barrett MD Attn: Accountin g,[address] [facility], [place], [place], [address] [place] [address] 2, [place] [facility] 0 11:06:48 Osteoarth ritis of knee 070132814 Active Katlyn Barrett MD Attn: Accountin g,[address] [place], [place], [address] [place] [address] 2, [place] [facility] 0 11:06:48 Joint pain 97939718 Active Katlyn Barrett MD Attn: Accountin g,[address] [place], [place], [address] [place] [address] 2, [place] [facility] 0 11:06:48 Muscle pain 06499216 Active Katlyn Barrett MD Attn: Accountin g,[address] [place], [place], [address] [place] [address] 2, [place] [facility] 0 11:06:48 Chronic obstructi ve pulmonary disease 97906611 Active Elaine Jain MD Attn: Accountin g,[address] [place], [place], [address] [place] [address] 2, [place] [facility] 6 14:54:50 Tobacco user 411828727 Active Katlyn Barrett MD Attn: Accountin g,[address] [place], [place], [address] [place] [address] 2, [place] [facility] 0 11:06:48 Low back pain 272862796 Active Katlyn Barrett MD Attn: Accountin g,[address] [place], [place], [address] [place] [address] 2, [place] [facility] 0 11:06:48 Paresthes ia 57449962 Active Katlyn Barrett MD Attn: Nela ye,[address] [facility], [place], [address], [place] [facility] 0 11:06:48 Structura l and functiona l abnormali ties of the kidney Completed 01/19/2020 Elaine Jain MD Attn: Nela ye,[address] [facility], [place], [address], [place] [facility] 0 10:39:12 Kidney lesion 519040131395 00 Completed 01/19/2020 Elaine Jain MD Attn: Nela ye,[address] [facility], [place], [address], [place] [facility] 0 10:39:00 Disorder of skin and/or subcutane ous tissue 62384502 Active Katlyn Barrett MD Attn: Nela ye,[address] [facility], [place], [address], [place] [facility] 0 11:06:48 Simple renal cyst 77050439 Active Katlyn Barrett MD Attn: Nela ye,[address] [facility], [place], [address], [place] [facility] 0 11:06:48 Mass of subcutane ous tissue of back 217347249990 103 Active 2015 Katlyn Barrett MD Attn: Nela ye,[address] [facility], [place], [address], [place] [facility] 0 11:06:48 Lower urinary tract symptoms due to benign prostatic hypertrop hy 312038196180 01 Active 2016 Katlyn Barrett MD Attn: Chadjose e ye,[address] [facility], [place], [address], [place] [facility] 0 11:06:48 Constipat ion 21110237 Active 2016 Katlyn Barrett MD Attn: Nela ye,[address] [facility], [place], [address], [place] [facility] 0 11:06:48 Problem Notes None recorded. Procedures Surgical History Date Name Laterality Status Provider Name and Address Organization Details Recorded Time 5 Joint Injection completed Ramy Yarbrough [place] - [facility] 05/23/2015 15:07:30 Imaging Results Imaging Date Name Status LastModified by Organiz ation Details LastModified Time 11/11/2019 XR, knee, 3 view completed [facility] (Imaging) [address] [place], [address], 11/18/2019 10:38:18 12/07/2019 LDCT, chest, for lung cancer screening completed [address] (Imaging) [address] [place], [address], 12/15/2019 14:52:56 06/01/2020 XR, chest completed [facility] (Imaging) [address] [place], [address], 06/17/2020 11:17:19 06/02/2020 CT, neck, soft tissue, w/wo contrast completed [facility] (Imaging) [address] [place], [address], 06/17/2020 11:17:19 06/02/2020 CT, neck, soft tissue, w/o contrast completed [facility] [address], [place], [address], 06/17/2020 11:17:19 06/03/2020 barium swallow study completed [facility] (Imaging) [address] [place], [address], 06/17/2020 11:17:19 06/03/2020 XR, chest completed [facility] (Imaging) [address] [place], [address], 06/17/2020 11:17:19 06/05/2020 CT, chest, w/o contrast completed [facility] (Imaging) [address] [place], [address], 06/17/2020 11:17:19 Procedure Notes None recorded. Medical Equipment None Reported. Allergies Allergen ID Allergen Name Allergen Category Reaction Reaction Severity Criticality Documentation Date Start Date Code Code System Note Provider Name and Address Organization Details Recorded Time 35283 oxycodone medicatio n itching moderate Not available 12/02/2015 1481 RxNorm Not Available Not Available Not Available [...] Updated DateTime 9 175.26 cm 37.5 kg/m2 989512. 46 g 98.1 [degF] 94 % 94 % 84 /min 122 mm[Hg] 84 mm[Hg] Emilia Hebert [place] [facility] 9 10:50:24 Date Recorded Body height Provider Name an d Address Organization Details Last Updated DateTime 01/19/2020 175.26 cm Emilia Hebert MA [facility] 0 09:40:18 Date Recorded Body height Provider Name an d Address Organization Details Last Updated DateTime 05/19/2020 175.26 cm Emilia Hebert MA [facility] 0 09:47:41 Date Recorded Body height Provider Name an d Address Organization Details Last Updated DateTime 06/17/2020 175.26 cm Lalita Buckner MA [facility] 06/17/20 20 10:01:54 Date Recorded Body height Provider Name an d Address Organization Details Last Updated DateTime 07/15/2020 175.26 cm Jenna Molina MA [facility] 020 10:52:41 Social History Question Answer Notes LastModified by Organizat ion Details LastModified Time Tobacco Smoking Status Former Smoker Quit 12/24/2018 Emilia Hebert MA null, [facility] 04/30/2019 10:31:18 What Is Your Level Of [...] SNOMED-CT Code Diagnosis ICD10 Code Diagnosis Note [id number] [facility] (Adult Med) [address] [place] [address] 09/27/2014 15:04:00 09/27/2014 17:04:25 Chronic obstructive pulmonary disease 68149104 Tobacco user [id number] Low back pain 482887270 Joint pain 68871536 Paresthesia 38594854 [id number] [facility] (Adult Med) [address] [place] [address] 01/04/2015 14:16:36 01/04/2015 16:04:41 Chronic obstructive pulmonary disease 94763214 Heartburn 85338714 Joint pain 71633045 Impotence 963028656 [id number] Elaine Jain MD [facility] (Adult Med) [address] [place] [address] 02/03/2015 13:56:33 02/03/2015 14:30:34 Joint pain 33557346 Chronic ob structive pulmonary disease 07213188 Low back pain 101582448 [id number] Elaine Jain MD [facility] (Adult Med) [address] [place] [address] 02/14/2015 10:05:33 02/14/2015 15:25:14 Cough 56713382 Tobacco user [id number] Chronic lung disease 814742347 [id number] Elaine Jain MD [facility] (Adult Med) [address] [place] [address] 04/19/2015 12:53:17 04/20/2015 10:06:04 Chronic lung disease 637105479 Low back pain 801094526 Tobacco user 547580635 Heartburn 42340956 [id number] [facility] (Adult Med) [address] [place] [address] 05/17/2015 16:01:13 05/19/2015 11:34:27 Knee pain 98664531 Chronic ob structive pulmonary disease 43722017 Paresthesia 44137014 [id number] Elaine Jain MD [facility] [address] [address] 05/23/2015 14:26:20 05/24/2015 14:55:47 Chondromalacia of patella 04045909 Knee pain 82090056 Osteoarthr itis of knee 306972388 [id number] [facility] [address] [address] 06/30/2015 09:28:33 06/30/2015 15:13:52 [id number] Juaquin Gaspar MD [facility] [address] [address] 08/08/2015 09:05:11 08/08/2015 17:10:25 Knee pain 30153869 M25.561 Osteoarthr itis of knee 056746228 M17.11 Chondromal acia of patella 24444054 M22.41 [id number] [facility] (Adult Med) [address] [place] [address] 08/18/2015 14:02:14 08/18/2015 18:09:16 Low back pain 133557745 M54.5 Osteoarthr itis of knee 154511951 M17.9 [id number] Juaquin Gaspar MD [facility] [address] [address] 12/02/2015 10:57:53 12/02/2015 13:22:24 Knee pain 10086734 M25.561 Osteoarthr itis of knee 693240923 M17.11 Chondromal acia of patella 08803410 M22.41 [id number] Mikala Montez is [facility] (Adult Med) [address] [place] [address] 01/10/2016 14:32:02 01/10/2016 18:23:06 Chondromalacia of patella 45281644 M22.41 Chronic ob structive pulmonary disease 21934598 J44.9 Knee pain 82471036 M25.5 61 Adult heal th examination 252405122 Z00.01 Screening for malignant neoplasm of colon 502473108 Z12.11 [id number] Elaine Jain MD [facility] (Adult Med) [address] [place] [address] 04/24/2016 14:38:44 04/24/2016 16:44:15 Chronic obstructive pulmonary disease 66298325 J44.9 Cough 55057538 R05 Knee pain 37589294 M25.5 61 Kidney lesion 9917703547 9100 N28.9 Disorder o f skin and/or subcutaneous tissue 96261249 L98.9 Left shoulder region. Will observe at present [id number] Zahra Devine [facility] (Adult Med) [address] [place] [address] 06/05/2016 13:20:16 06/05/2016 18:11:10 Simple renal cyst 49743529 N28.1 Chronic ob structive pulmonary disease 71630676 J44.9 Joint pain 08010419 M25. 50 Osteoarthr itis of knee 927587151 M17.9 [id number] [facility] [address] [place] [address] 10/04/2016 13:14:32 10/04/2016 15:06:14 Chronic obstructive pulmonary disease 57800000 J44.9 Tobacco user 519579175 Z 72.0 Cough 47042220 R05 [id number] MD [facility] (Adult Med) [address] [place] [address] 11/14/2016 15:26:51 11/14/2016 17:50:37 Chronic obstructive pulmonary disease 56197565 J44.9 Osteoarthr itis of knee 788621413 M17.9 Low back pain 063355346 M54.5 [id number] MD [facility] (Adult Med) [address] [place] [address] 0 01/17/2017 13:02:09 01/17/2017 14:50:29 Chronic obstructive pulmonary disease 52629010 J44.9 Osteoarthr itis of knee 148563712 M17.9 Low back pain 019351084 M54.5 Chondromal acia of patella 08984926 M22.41 Cough 86360066 R05 [id number] Elaine [facility] MD [facility] [address] [place] [address] 04/03/2017 14:05:39 04/17/2017 12:08:04 Chronic obstructive pulmonary disease 51010583 J44.9 Cough 76295994 R05 Impotence 164440065 N52. 9 Osteoarthr itis of knee 207902206 M17.9 [id number] Elaine Jain MD [facility] (Adult Med) [address] [place] [address] 06/27/2017 14:13:46 06/27/2017 16:18:33 Chronic obstructive pulmonary disease 84316357 J44.9 Heartburn 77986894 R12 Lower urin ayaz tract symptoms due to benign prostatic hypertrophy 8629432054 9101 N40.1 Constipation 41743993 K5 9.00 [id number] Elaine Jain MD [facility] (Adult Med) [address] [place] [address] 12/26/2017 14:52:39 12/26/2017 16:26:13 Chronic obstructive pulmonary disease 90343133 J44.9 Lower urin ayaz tract symptoms due to benign prostatic hypertrophy 1709803198 9101 N40.1 Heartburn 37485469 R12 Allergic rhinitis 594789 04 J30.9 [id number] lEaine Jain MD [facility] (Adult Med) [address] [place] [address] 05/13/2018 10:58:42 05/13/2018 12:48:47 Chronic lung disease 153134051 J98.4 Chondromal acia of patella 22307269 M22.41 Chronic ob structive pulmonary disease 69598701 J44.9 Lower urin ayaz tract symptoms due to benign prostatic hypertrophy 8167306159 9101 N40.1 Heartburn 63668340 R12 Osteoarthr itis of knee 686602964 M17.9 [id number] Elaine Jain MD [facility] (Adult Med) [address] [place] [address] 0 09/02/2018 11:13:37 09/02/2018 13:04:53 Chronic obstructive pulmonary disease 11139571 J44.9 Osteoarthr itis of knee 216323899 M17.9 Low back pain 216136113 M54.5 Chondromal acia of patella 71939557 M22.41 Paresthesia 44609895 R20 .2 Heartburn 69002417 R12 [id number] Elaine Jain MD [facility] (Adult Med) [address] [place] [address] 0 10/29/2018 12:03:21 10/30/2018 09:23:48 Chronic obstructive pulmonary disease 45400635 J44.[address] showed new abnormalit ies. Will refer back to pulmonary. Tobacco user 412669131 Z 72.0 Computed t omography result abnormal 416673961 R93.89 [id number] Elaine Jain MD [facility] (Adult Med) [address] [place] [address] 0 12/31/2018 12:05:34 01/01/2019 12:22:50 Chronic obstructive pulmonary disease 02551713 J44.9 Osteoarthr itis of knee 308864652 M17.9 Knee pain 28178139 M25.5 61 Allergic rhinitis 042835 04 J30.9 [id number] Elaine Jain MD [facility] (Adult Med) [address] [place] [address] 04/30/2019 09:25:34 05/01/2019 09:51:56 Chronic obstructive pulmonary disease 18388375 J44.9 Heartburn 63494470 R12 Osteoarthr itis of knee 664869764 M17.9 Knee pain 75159904 M25.5 61 Lower urin ayaz tract symptoms due to benign prostatic hypertrophy 4976032800 9101 N40.1 Abnormal weight gain 161 245269 R63.5 Discussed importance of improved dietary habits Cough 70684204 R05 [id number] Elaine Jain MD [facility] (Adult Med) [address] [place] [address] 0 08/25/2019 09:39:42 08/25/2019 11:14:40 Chronic obstructive pulmonary disease 40301605 J44.9 Osteoarthr itis of knee 820533130 M17.9 Low back pain 938020497 M54.5 Lower urin ayaz tract symptoms due to benign prostatic hypertrophy 4525544576 9101 N40.1 [id number] MD [facility] (Adult Med) [address] [place] [address] 0 01/19/2020 09:39:38 01/20/2020 12:11:56 Chronic lung disease 079452600 J98.4 Heartburn 94369887 R12 Lower urin ayaz tract symptoms due to benign prostatic hypertrophy 2408713397 9101 N40.1 Osteoarthr itis of knee 848581189 M17.9 Tobacco user 643623056 Z 72.0 [id number] MD [facility] (Adult Med) [address] [place] [address] 0 05/19/2020 08:18:06 05/20/2020 11:12:16 Chronic lung disease 725083493 J98.4 F/U with pulmonolog y Heartburn 68106897 R12 Advised use of omeprazole [id number] Katlyn Barrett MD [facility] (Adult Med) [address] [place] [address] 0 06/17/2020 08:16:26 06/21/2020 20:21:49 Hemoptysis 99430947 R04.2 ER (refused)H b/Hct Chronic ob structive pulmonary disease 16499398 J44.9 Cough 61074369 R05 [id number] MD [facility] (Adult Med) [address] [place] [address] 0 07/15/2020 08:25:00 07/16/2020 06:46:52 Benign prostatic hyperplasia 427602651 N40.1 Health Concerns Section Related Observation LastModified by Organization Detai ls LastModified Time None Recorded Concern Status LastModified by Organization Details LastModified Time None Recorded Advance Directives Directive None Recorded Payers Encounter Date Sequence Insurance Name Policy Number Policy Walls Covered Member ID Walls Member ID Guarantor Name 08/25/2019 1 [place] Bentley Mesa [id number] [id number] Bentley Mesa 08/25/2019 2 [place] [facility] (MEDICAID REPLACEMENT - HMO) [id number] Bentley Mesa [id number] Bentley Mesa 01/19/2020 1 [place] FQ[place] Bentley Mesa [id number] Bentley Mesa 01/19/2020 2 [place] [facility] (MEDICAID REPLACEMENT - HMO) [id number] Bentley Mesa [id number] Bentley Mesa 05/19/2020 1 [place] Bentley Mesa [id number] [id number] Bentley Mesa 05/19/2020 2 [place] WHEN MEDICARE OR MEDICARE REPLACEMENT PRIMARY) Bentley Mesa [id number] Bentley Mesa 06/17/2020 1 [place] Bentley Mesa [id number] [id number] Bentley Mesa 06/17/2020 2 [place] OR MEDICARE REPLACEMENT PRIMARY) Bentley Mesa [id number] Bentley Mesa 07/15/2020 1 [place] - [facility] Bentley Mesa [id number] [id number] Bentley Mesa 07/15/2020 2 [place] OR MEDICARE REPLACEMENT PRIMARY) Bentley Mesa [id number] Bentley Mesa Notes Date Note Type Note Provider Name and Address Organization Details Recorded Time 08/25/2019 text/html No new complaint s. Is being considered for lung transplant. Currently doing pulmonary rehab. Elaine Jain MD Attn: Accounting,[address] [place], [address], [facility] 08/25/2019 11:09:22 01/19/2020 text/html Telephone visit due to Covid-19 precautions. No new complaints at present. Elaine Jain MD Attn: Accounting,[address] [place], [address], [facility] 01/19/2020 10:40:20 05/19/2020 text/html Telephone visit due to Covid-19 precautions. He has je more SOB lately. Scheduled to see pulmonary soon. Cataract surgery rescheduled because he was not feeling well. famotidine not as effective as ranitidine. Otherwise doing OK. Elaine Jain MD Attn: Accounting,[address] [facility], [place], [address], [facility] 05/19/2020 10:51:18 06/17/2020 text/html Phone visit due to the Covid 19 Dr Cristobal' patient My breathing is really, really, better But last night, I got to coughing, some blood came up from my throat I had a procedure done on my throat I kind of vomited Mr Mesa was apparently admitted to [facility] and discharged last week, unfortunately he had [...] this afternoon. 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 Barium swallow normalCT chest; Infiltrates, CAD, Small HHCT neck; Asymmetry, Tracheal abnormality Katlyn Barrett MD Attn: Accounting,[address] [place], [address], [facility] 06/17/2020 11:53:12 07/15/2020 text/html Phone visit due to the Covid 19 pandemic Cristobal' patient I just came home from [...] refilled. Katlyn Barrett MD Attn: Accounting,[address] [place], [address], [facility] 07/15/2020 21:52:32
[2025-01-09 16:12] VITALS: PULSE 130; O2SAT 93
[2025-01-09 16:21] LABS: Basophils Percent Auto 0.4 % (0.2-1.2); Eosinophils Absolute Auto 0.2 K/mm3 (0-0.3); Eosinophils Percent Auto 2.8 % (0-4.4); Hematocrit 43.9 % (42.0-52.0); Hemoglobin 14.4 g/dL (14.0-18.0); Immature Granulocyte Absolute 0.04 K/mm3 (0.00-0.031); Immature Granulocyte Percent A 0.5 % (0-0.5); Lymphocytes Percent Auto 11.9 % (18.3-44.2); Mean Corpuscular HGB Conc 32.8 g/dl (32-36); Mean Corpuscular Hemoglobin 31.3 pg (26-34); Mean Corpuscular Volume 95.4 fl (80-100); Mean Platelet Volume 10.3 fl (7.4-10.4); Monocytes Absolute Auto 0.9 K/mm3 (0.1-0.6); Monocytes Percent Auto 11.4 % (2.6-8.5); Neutrophils Absolute Auto 5.5 K/mm3 (1.3-6.7); Platelet Count Result 329 k/mm3 (150-375); Red Cell Distribution Width 13.9 % (11.5-14.5); White Blood Count 7.6 K/mm3 (4.5-10.0)
--- OUTSIDE RECORDS SUMMARY | 2025-01-09 16:22 | XMS_ITS | CONTINUITY OF CARE DOCUMENT ---
Author Name jose juan manzano Address Unknown Organization [facility] Address [address] [place] [address] Phone [phone] Care Team Providers Care Right Of Way Man Name Role Phone Randy Wynne MD Unavailable OLIVIA SAUNDERS MD Unavailable [phone] JEAN FINCH MD Unavailable INSURANCE PROVIDERS Payer name Policy type / Coverage type [employer] ID [employer] [facility] Medicaid 1 [id number]
--- OUTSIDE RECORDS SUMMARY | 2025-01-09 16:23 | XMS_ITS | Clinical Summary ---
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 [address] [place], [place] [address]dg A, Shay. 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; Primary osteoarthritis [...] on file Legal Sex Male 8:01 PM CROSSING GUARD Gender Identity Not on file Sexual Orientation Not on file Obstetrics History Last Filed Vital Signs Vital Sign Reading Time Taken Comments Blood Pressure 142/82 09/01/2024 9:08 AM CROSSING GUARD Pulse 85 09/01/2024 9:08 AM CROSSING GUARD Temperature 36.9 C (98.5 F) 04/02/2024 12:40 PM CDT Respiratory Rate 22 09/01/2024 9:08 AM CROSSING GUARD Oxygen Saturation 95% 09/01/2024 9:08 AM CROSSING GUARD Inhaled Oxygen Concentration - - Weight 111.1 [...] Comments PSA SCREEN Routine 09/27/2022 10:21 AM CROSSING GUARD from Last 3 Months or Most Recently Relevant to Health Maintenance Results * PSA screen (09/27/2022 10:21 AM CROSSING GUARD) PSA-Total 0.70 <=5.40 ng/mL [facility] Comment: [...] revised 22. Blood 09/27/2022 10:2 1 AM CROSSING GUARD 09/27/2022 10:44 AM CROSSING GUARD us Aristeo Khan MD LAB BLOOD ORDERABLES Final Result [facility] [address] [facility] Department [place] [address] from Last 3 Months or Most Recently Relevant to Health Maintenance Insurance MEDICARE [facility] MEDICARE [facility] ID[facility] MEDICARE ADVANTAGE IDPA [facility] MEDICARE ADVANTAGE Care Teams Geodetic Survey Director Relationship Specialty Start Date End Date Aristeo Khan MD [address] [place] [address] PCP - General 06/28/22 Ravi Queen MD [address] [place] [address] [address] [place] [id number] Anesthesiologist Pain Management 09/05/22
--- OUTSIDE RECORDS SUMMARY | 2025-01-09 16:23 | XMS_ITS | Referral Summary ---
Author Organization [facility] [place] [facility] [place] Address [address] [place] [address] Care Team Providers Care Gatehouse Attendant Name Role Phone Aristeo Khan MD Primary Care Provider [phone] Ravi Queen MD Unavailable [phone] Encounters Date Type Department Care Team Description 12/01/2024 8:22 AM SUPPLIER QUALITY ENGINEER - 12/01/2024 11:59 PM SUPPLIER QUALITY ENGINEER Hospital Encounter [facility] [address] [place] [address] [address] [place] [address] Natalia Georges NP Lumbar radicular pain (Primary Dx); [facility] (current) use of opiate analgesic; Primary osteoarthritis [...] 06/28/2022 Insomnia secondary to chronic pain 06/28/2022 [facility] (current) use of opiate analgesic 06/14 Resolved [...] on file Legal Sex Male 8:01 PM SUPPLIER QUALITY ENGINEER Gender Identity Not on file Sexual Orientation Not on file Last Filed Vital Signs Vital Sign Reading Time Taken Comments Blood Pressure 142/82 09/01/2024 9:08 AM SUPPLIER QUALITY ENGINEER Pulse 85 09/01/2024 9:08 AM SUPPLIER QUALITY ENGINEER Temperature 36.9 C (98.5 F) 04/02/2024 12:40 PM CDT Respiratory Rate 22 09/01/2024 9:08 AM SUPPLIER QUALITY ENGINEER Oxygen Saturation 95% 09/01/2024 9:08 AM SUPPLIER QUALITY ENGINEER Inhaled Oxygen Concentration - - Weight 111.1 [...] Comments PSA SCREEN Routine 09/27/2022 10:21 AM SUPPLIER QUALITY ENGINEER from Last 3 Months or Most Recently Relevant to Health Maintenance Results * PSA screen (09/27/2022 10:21 AM SUPPLIER QUALITY ENGINEER) PSA-Total 0.70 <=5.40 ng/mL ALVAGARY JULITO Comment: [...] revised 22. Blood 09/27/2022 10:2 1 AM SUPPLIER QUALITY ENGINEER 09/27/2022 10:44 AM SUPPLIER QUALITY ENGINEER Aristeo Khan MD LAB BLOOD ORDERABLES Final Result [facility] [address] [facility] Department [place] [address] from Last 3 Months or Most Recently Relevant to Health Maintenance Insurance MEDICARE [place] MEDICARE [facility] Address: [address] [address] [place] [address] [facility] PLAN IDPA [facility] MEDICARE [facility]ANT[facility] MEDIC[facility] Address: [address] [address] [place] [address] [employer]PA [facility] MEDICARE ADVANTAGE [facility] MEDICARE Address: [address] [address] [place] [address] Care Teams Gatehouse Attendant Relationship Specialty Start Date End Date Aristeo Khan MD [address] [place] [address] PCP - General 06/28/22 Ravi Queen MD [address] [place] [address] [address] [place], [place] [address], [place] [address] Anesthesiologist Pain Management 09/05/22
--- OUTSIDE RECORDS SUMMARY | 2025-01-09 16:23 | XMS_ITS | Clinical Summary ---
Author Organization [facility] Address [address] [place] [address] Phone Care Team Providers Care Videotape Editor Name Role Phone Bentley Kyle MD Primary Care Provider [phone] Allergies Active Allergy Reactions Criticality Noted Date [...] bronchoscopy Immunizations Immunization Administration Dates Next Due ([employer])(12 YR UP) COVID-19 VACCINE - EMERGENCY USE AUTHORIZATION, MRNA, [id number](PF) 30 MCG/0.3 ML IM SUSP 01/10/2021 Influenza Seasonal Unspecified Formulation IM Social History Tobacco Use Types Packs/Day Years Used Date Smoking Tobacco: Never Smokeless Tobacco: Never Sex and Gender Information Value Date Recorded Sex Assigned at Not on file Legal Sex Male 3:05 PM FACTORY WORKER Gender Identity Not on file Sexual Orientation Not on file Last Filed Vital Signs Vital Sign Reading Time Taken Comments Blood Pressure 130/80 11/21/2021 1:06 PM FACTORY WORKER Pulse 87 11/21/2021 1:06 PM FACTORY WORKER Temperature 37.2 C (98.9 F) 04/20/2021 11:16 AM CDT Respiratory Rate 18 04/20/2021 3:29 PM CDT Oxygen Saturation 91% 11/21/2021 1:06 PM FACTORY WORKER 3 L Inhaled Oxygen Concentration - - Weight 116.1 kg (256 lb) 11/21/2021 1:06 PM FACTORY WORKER Height 175.3 cm (5' 9 ) 11/21/2021 1:06 PM FACTORY WORKER Body Mass Index 37.8 11/21/2021 1:06 PM FACTORY WORKER Plan of Treatment Health Maintenance Due Date [...] Insurance MEDICARE PART A AND B [place]ICAID [place] Advance Directives For more information, please contact: [phone] * Full Code (Latest Code Status on File) Date Activated Date Inactivated Comments 04/18/2021 12:14 PM 04/20/2021 6:57 PM Care Teams Videotape Editor Relationship Specialty Start Date End Date Bentley Kyle MD [address] [place] [address] PCP - General Internal Medicine 04/18/21
--- OUTSIDE RECORDS SUMMARY | 2025-01-09 16:23 | XMS_ITS | Clinical Summary ---
Author Organization [facility] Address [address] [place] [address] Phone Care Team Providers Care Conduit Worker Name Role Phone Bentley Kyle MD Primary Care Provider [phone] Medications PAIN & FEVER EXTRA STRENGTH 500 [...] topic Insurance MEDICAID [place] MEDICARE Care Teams Conduit Worker Relationship Specialty Start Date End Date Bentley Kyle MD [address] [place] [address] PCP - General Internal Medicine 02/01/21
--- NOTE | 2025-01-09 16:30 | ED_ITS ---
HPI - Chest Pain General Chief Complaint: Chest Pain Stated Complaint: Chest pain, shortness of breath, coughing Time Seen by Provider: 01/09/25 16:10 Source: patient Mode of arrival: ambulatory Limitations: no limitations History of Present Illness HPI narrative: Patient is a 64 y/o male, with PMH of COPD/emphysema, chronic hypoxic resp failure on 3L NC, who presents the ED with report of shortness of breath. Patient reports he woke up this morning with slight pain throughout his anterior chest, radiating through to his back. Also reports having increased shortness breath, rapid heart rate. States his heart rate this morning was in the 150s, which is abnormal for him. Reports recent cough that began today. Denies pain or swelling in legs. Denies known fevers. is sick with similar symptoms. Related Data Home Medications ?Medication ?Instructions ?Recorded ?Confirmed ?Last Taken ?Type hydrocodone 5 mg-acetaminophen 325 1 tablet PO Q6H PRN Pain 05/22/22 01/09/25 01/09/25 History mg tablet latanoprost 0.005 % eye drops 1 drp EACH EYE HS 11/20/22 01/09/25 01/08/25 History omeprazole 20 mg capsule,delayed 20 mg PO DAILY 10/29/23 01/09/25 01/09/25 History release fluticasone furoate 100 1 inh inhalation Q24H 08/06/24 01/09/25 01/09/25 History mcg-vilanterol 25 mcg/dose inhalation powder (Breo Ellipta) hydroxyzine HCl 25 mg tablet 25 mg PO TID PRN anxiety 12/05/24 01/09/25 01/09/25 History buspirone 5 mg tablet 5 mg PO DAILY 01/09/25 01/09/25 01/09/25 History mupirocin 2 % topical ointment 1 applic topical BID PRN dry nasal 01/09/25 01/09/25 Unknown History passages Allergies Allergy/AdvReac Type Severity Reaction Status Date / Time oxycodone AdvReac Itching Verified 01/09/25 15:52 Review of Systems 2 Review of Systems: All systems reviewed & are unremarkable except as noted in HPI. All systems reviewed & are unremarkable except as noted in HPI and below PMFSH Past Medical History Medical History Sliding hiatal hernia Vitamin D deficiency Pulmonary embolism Two thousand twenty-one BPH (benign prostatic hyperplasia) Hiatal hernia Chronic deep vein thrombosis (DVT) Linear echogenic filling defect in the right femoral vein, likely chronic thrombus on venous dopplers 11/2020. Gastroesophageal reflux disease Chronic respiratory failure with hypoxia, on home oxygen therapy COPD with emphysema Chronic steroid therapy, 5 milligrams prednisone daily. Osteoarthritis Surgical History Surgical History S/P respiratory system surgery placement of [place]/endobronchial valves - [facility] H/O colonoscopy History of lung surgery History of bilateral cataract extraction Family History Family History Father Acute myocardial infarction Congestive heart failure Lung cancer Mother Diabetes mellitus Dementia Sibling Diabetes mellitus Lung cancer Social History Social History Social History: Surrogate decision maker: [place], . Code status: Full code. 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 Quit december 2017 Alcohol intake: former Drinks per week: 1 Alcohol use details: Patient currently drinks 2 beers and a shot on the weekends Substance use: former Substance use type: crack/cocaine Last use: 7 Do You Feel Safe in your Home?: Yes Lack of Transportation: No Lack of Food: Never True Current Housing: I Have Housing Concerned About Future Housing: No Difficulty Paying Gas/Electric Bills: No Difficulty Paying for Meds: No Currently Unemployed: No Education: High School Diploma/GED Difficulty w/ Childcare or Family Care: No Living arrangements: with family Additional living arrangements comments: Patient lives with his in [place]. 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 Gender identity (if verbalized by the patient): Male Sexual Orientation (if Verbalized by the Patient): Straight or Heterosexual Spiritual care concerns: No Exam 2 Narrative: GENERAL: Elderly, mildly ill appearing, in mild acute respiratory distress. HEAD: Normocephalic, atraumatic. RESPIRATORY: Airway patent, respirations labored and tachypneic. Sitting in tripod position. Decreased lung sounds throughout, especially in bases. Diffuse expiratory wheezing. CARDIOVASCULAR: Tachycardic with regular rhythm without murmurs, rubs, or gallops. MUSCULOSKELETAL: Moves all extremities. No gross deformities. No peripheral edema or calf tenderness. SKIN: Warm, dry, normal color. NEURO: A&O X3. Speech clear. Cranial nerves II-XII grossly intact. Steady gait. No ataxic movements. PSYCHIATRIC: Appropriate mood and affect. Normal interaction. Course Vital Signs Vital signs: Vital Signs Pulse Rate 130 H 01/09/25 16:12 Pulse Oximetry 93 01/09/25 16:12 Oxygen Delivery Nasal Cannula 01/09/25 16:12 Oxygen Flow Rate 3 01/09/25 16:12 Temperature 98.2 F 01/09/25 23:00 Pulse Rate 112 H 01/09/25 23:00 Respiratory Rate 18 01/09/25 23:00 Blood Pressure 129/86 01/09/25 23:00 Pulse Oximetry 99 01/09/25 23:00 Oxygen Delivery Nasal Cannula 01/09/25 18:10 Oxygen Flow Rate 4 01/09/25 18:10 MDM - Chest Pain MDM Narrative Medical decision making narrative: Patient presented to ED with shortness of breath, chest pain, cough. History of COPD, chronically wears 3 L nasal cannula. Oxygen stable on his normal home O2, though patient tachycardic upon arrival, in mild respiratory distress. Diffuse wheezing and tight lung sounds throughout. Patient given Solu-Medrol and hour long nebulizer treatment was ordered. He is on chronic daily steroids. EKG with sinus tachycardia, nonspecific ST changes. No STEMI. Baseline troponin is undetectable. Patient denies active chest pain. Reports chest pain was present this morning when he woke up. Cbc without leukocytosis or anemia. CMP is unremarkable. Viral swabs negative. D-dimer WNL. BNP WNL. Chest x-ray with significant emphysematous changes, small right pleural effusion. No focal infiltrates. 3 hr troponin also undetectable. Discussed lab and imaging findings with patient. He was initially feeling improved after hour long nebulizer treatment, but attempted to ambulate to the bathroom and became acutely short of breath, hypoxic on his home O2 down into the 70s, diaphoretic, worsening CP. Brought back to ED bed. Repeat EKG w/o interval changes, no STEMI. Given mag, resp notified for ABG. Will also start abx to cover for suspected CAP. was recently diagnosed with pneumonia and has had similar URI sx's. ABG with pH of 7.347, but normal pCO2. Patient now much more comfortable after resting on stretcher. He is feeling very anxious, given small dose of xanax. Will be admitted for continued nebulizers, steroids, respiratory support for COPD exacerbation. Discussed case with Dr. Childers, hospitalist, accepted patient for admission. Patient and family in agreement with plan and admission. Patient's to bring patient's Trelegy machine to the ED. Medical Records Data Attestation: I reviewed the patient's medical records. Lab Data Attestation: I reviewed the patient's lab results. 01/09/25 16:12 01/09/25 16:12 Labs: Lab Results 01/09/25 01/09/25 01/09/25 Range/Units 16:11 16:12 17:14 WBC 7.6 (4.5-10.0) K/mm3 RBC 4.60 (4.6-6.20) M/mm3 Hgb 14.4 (14.0-18.0) g/dL Hct 43.9 (42.0-52.0) % MCV 95.4 (80-100) fl MCH 31.3 (26-34) pg MCHC 32.8 (32-36) g/dl RDW 13.9 (11.5-14.5) % Plt Count 329 (150-375) k/mm3 MPV 10.3 (7.4-10.4) fl Immature Gran % (Auto) 0.5 (0-0.5) % Neut % (Auto) 73.0 (45.5-73.1) % Lymph % (Auto) 11.9 L (18.3-44.2) % [place] % (Auto) 11.4 H (2.6-8.5) % Eos % (Auto) 2.8 (0-4.4) % Baso % (Auto) 0.4 (0.2-1.2) % Lymph # (Auto) 0.90 (0.9-3.2) K/mm3 [place] # (Auto) 0.9 H (0.1-0.6) K/mm3 Eos # (Auto) 0.2 (0-0.3) K/mm3 Baso # (Auto) 0.0 (0.0-0.1) K/mm3 Abs Immat Gran (auto) 0.04 H (0.00-0.031) K/mm3 Absolute Neuts (auto) 5.5 (1.3-6.7) K/mm3 Absolute Nucleated RBC 0.000 (0.0-0.012) K/mm3 Nucleated RBC % 0.0 (0.0-0.2) % PT 13.3 (11.1-14.7) Seconds INR 1.0 APTT 31.0 (22.3-36.8) Seconds D-Dimer 0.30 (<0.48) ug/mL Methemoglobin (0-1.5) %THb Sodium 137 (137-145) mmol/L Potassium 4.1 (3.4-5.0) mmol/L Chloride 101 (98-107) mmol/L Carbon Dioxide 26 (22-30) mmol/L Anion Gap 10 (4-12) mmol/L BUN 15 (9-20) mg/dL Creatinine 0.70 (0.7-1.3) mg/dL Estim Creat Clear Calc Not Reportable Estimated GFR > 60 (59 - ) Glucose 110 (65-110) mg/dL Calcium 9.3 (8.4-10.2) mg/dL Total Bilirubin 0.6 (0.2-1.3) mg/dL AST 31 (17-59) U/L ALT 26 (6-50) U/L Alkaline Phosphatase 110 (38-126) U/L Troponin I < 0.012 (0.000-0.034) ng/mL NT-Pro-B Natriuret Pep 22 (19.9-100) pg/mL Total Protein 8.0 (6.3-8.2) g/dL Albumin 4.5 (3.5-5.1) g/dL Lipase 22 L (23-300) U/L Influenza A (RT-PCR) Negative (Negative) Influenza B (RT-PCR) Negative (Negative) RSV (RT-PCR) Negative (Negative) SARS-CoV-2 RNA (RT-PCR) Negative (Negative) 01/09/25 01/09/25 Range/Units 19:16 20:33 WBC (4.5-10.0) K/mm3 RBC (4.6-6.20) M/mm3 Hgb (14.0-18.0) g/dL Hct (42.0-52.0) % MCV (80-100) fl MCH (26-34) pg MCHC (32-36) g/dl RDW (11.5-14.5) % Plt Count (150-375) k/mm3 MPV (7.4-10.4) fl Immature Gran % (Auto) (0-0.5) % Neut % (Auto) (45.5-73.1) % Lymph % (Auto) (18.3-44.2) % [place] % (Auto) (2.6-8.5) % Eos % (Auto) (0-4.4) % Baso % (Auto) (0.2-1.2) % Lymph # (Auto) (0.9-3.2) K/mm3 [place] # (Auto) (0.1-0.6) K/mm3 Eos # (Auto) (0-0.3) K/mm3 Baso # (Auto) (0.0-0.1) K/mm3 Abs Immat Gran (auto) (0.00-0.031) K/mm3 Absolute Neuts (auto) (1.3-6.7) K/mm3 Absolute Nucleated RBC (0.0-0.012) K/mm3 Nucleated RBC % (0.0-0.2) % PT (11.1-14.7) Seconds INR APTT (22.3-36.8) Seconds D-Dimer (<0.48) ug/mL Methemoglobin 0.3 (0-1.5) %THb Sodium (137-145) mmol/L Potassium (3.4-5.0) mmol/L Chloride (98-107) mmol/L Carbon Dioxide (22-30) mmol/L Anion Gap (4-12) mmol/L BUN (9-20) mg/dL Creatinine (0.7-1.3) mg/dL Estim Creat Clear Calc Estimated GFR (59 - ) Glucose (65-110) mg/dL Calcium (8.4-10.2) mg/dL Total Bilirubin (0.2-1.3) mg/dL AST (17-59) U/L ALT (6-50) U/L Alkaline Phosphatase (38-126) U/L Troponin I < 0.012 (0.000-0.034) ng/mL NT-Pro-B Natriuret Pep (19.9-100) pg/mL Total Protein (6.3-8.2) g/dL Albumin (3.5-5.1) g/dL Lipase (23-300) U/L Influenza A (RT-PCR) (Negative) Influenza B (RT-PCR) (Negative) RSV (RT-PCR) (Negative) SARS-CoV-2 RNA (RT-PCR) (Negative) ABG Data ABG results: 01/09/25 20:33 Puncture Site Right radial ABG pH 7.347 L ABG pCO2 42.9 ABG pO2 104.9 H ABG PO2/FiO2 Ratio 2.33 ABG HCO3 23.0 ABG O2 Saturation 97.5 ABG O2 Content 19.4 ABG Base Excess -2.6 A-a Gradient 167.2 Oxyhemoglobin 97.2 Carboxyhemoglobin 0.3 Reduced Hemoglobin 2.2 Total Hemoglobin 14.1 O2 Delivery Device Nasal cannula O2 Liters/Min 5.0 FiO2 45 Attestation: I personally reviewed and interpreted this ABG as follows: Imaging Data Attestation: I personally reviewed and interpreted this imaging study as follows: Radiologist's impression: ITS Impressions Chest X-Ray 01/09/25 17:36 IMPRESSION: Significant emphysematous change, with possibly a small right-sided pleural effusion, an interval change from prior. ECG Data EKG #1: Attestation: I personally reviewed and interpreted this ECG as follows: ECG completion date: 01/09/25 ECG completion time: 16:16 EKG Interpretation: tachycardia (114), sinus rhythm and non-specific ST changes Discharge Plan Discharge Clinical Impression: Acute on chronic hypoxic respiratory failure, Acute exacerbation of chronic obstructive pulmonary disease (COPD), Atypical chest pain Patient Disposition: Still a Patient Condition: Serious
[2025-01-09 16:31] LABS: Prothrombin Time 13.3 Seconds (11.1-14.7)
[2025-01-09 16:34] LABS: Alanine Aminotransferase 26 U/L (6-50); Albumin Level 4.5 g/dL (3.5-5.1); Alkaline Phosphatase 110 U/L (38-126); Anion Gap 10 mmol/L (4-12); Aspartate Amino Transferase 31 U/L (17-59); Bilirubin,Total 0.6 mg/dL (0.2-1.3); Blood Urea Nitrogen 15 mg/dL (9-20); Calcium 9.3 mg/dL (8.4-10.2); Carbon Dioxide 26 mmol/L (22-30); Chloride 101 mmol/L (98-107); Estimated Glomerular Filt Rate > 60; Glucose 110 mg/dL (65-110); Lipase 22 U/L (23-300); Potassium 4.1 mmol/L (3.4-5.0); Sodium 137 mmol/L (137-145)
[2025-01-09] MEDS: methylPREDNISolone SOD SUCC 125 MG VIAL IV PUSH (16:41)
[2025-01-09 16:44] VITALS: O2SAT 99
[2025-01-09 16:45] LABS: Troponin I < 0.012 ng/mL (0.000-0.034)
[2025-01-09] MEDS: LEVALBUTEROL NEB 1.25 MG/3 ML 2.5 MG INHALATION (17:06)
[2025-01-09 17:07] VITALS: BP 162/107; PULSE 127; RESP 19; TEMP 36.6; O2SAT 98
[2025-01-09] MEDS: IPRATROPIUM BR 0.02% INH SOLN 0.5 MG/2.5 ML VIAL 1.5 MG INHALATION (17:07)
[2025-01-09 17:55] LABS: Influenza A QL RT-PCR Negative (Negative); Influenza B QL RT-PCR Negative (Negative); RSV RNA, RT-PCR Negative (Negative); SARS-CoV-2 RNA PCR Negative (Negative)
[2025-01-09] MEDS: SODIUM CHLORIDE 0.9% IV 1,000 ML 999 ML IV CONT (18:00)
[2025-01-09 18:04] LABS: NT Pro B Type Natriuretic Pept 22 pg/mL (19.9-100)
[2025-01-09] MEDS: ACETAMINOPHEN 500 MG TABLET 1000 MG PO (18:08)
[2025-01-09 18:10] VITALS: O2SAT 97
--- NOTE | 2025-01-09 18:44 | ECG_ITS ---
Test Date: 2025-01-09 18:49:59 Measurements Intervals [place] Rate: 116 P: 66 CT: 145 QRS: 54 QRSD: 78 T: 70 QT: 320 QTc: 446 Interpretive Statements SINUS TACHYCARDIA OTHERWISE NORMAL ECG Compared to ECG 01/09/2025 16:16:28 Myocardial infarct finding no longer present Electronically Signed On 01-10-2025 07:39:19 CDT by Dre Graham M.D.
[2025-01-09 19:00] VITALS: BP 165/101; PULSE 121; RESP 17; TEMP 36.5; O2SAT 100
[2025-01-09 19:42] LABS: Troponin I < 0.012 ng/mL (0.000-0.034)
--- NOTE | 2025-01-09 20:05 | ECG_ITS ---
Test Date: 2025-01-09 20:12:16 Measurements Intervals [place] Rate: 123 P: 65 NE: 145 QRS: 50 QRSD: 69 T: 71 QT: 303 QTc: 434 Interpretive Statements SINUS TACHYCARDIA OTHERWISE NORMAL ECG Electronically Signed On 01-10-2025 07:39:56 CDT by Dre Graham M.D.
[2025-01-09] MEDS: MAGNESIUM SULF 2 GM/WATER 50ML 2 GM/50 ML BAG IVPB (20:09)
[2025-01-09] MEDS: AZITHROMYCIN 500 MG/NS 250 ML 500 MG/250 ML BAG 250 MG IVPB (20:09)
[2025-01-09 20:35] LABS: Alveolar/Arterial O2 Gradient 167.2 mmHg; Base Excess ABG -2.6 mEq/l (+/-2.0); Carboxyhemoglobin 0.3 % THb (0-2.0); Fractional Inspired Oxygen 45 %; Methemoglobin ABG 0.3 %THb (0-1.5); Oxygen Content ABG 19.4 %vol (16.0-22.0); Oxygen Saturation ABG 97.5 % (95.0-100.0); Oxyhemoglobin 97.2 % THb (90.0-100.0); PCO2 ABG 42.9 mmHg (35.0-45.0); PO2 ABG 104.9 mmHg (80.0-100.0); PO2 FiO2 Ratio Arterial Blood 2.33 %; Reduced Hemoglobin 2.2 %THb (0-5.0); Total Hemoglobin 14.1 g/dL (12.0-18.0); pH ABG 7.347 (7.350-7.450)
[2025-01-09 20:37] LABS: Device NASAL CANNULA; Modified Allen's Test Pass; Site Drawn RIGHT RADIAL
[2025-01-09] MEDS: ALPRAZolam (*CRX) 0.5 MG TABLET PO (20:56)
[2025-01-09] MEDS: MORPHINE SULFATE (*CRX) 2 MG/ML INJ IV PUSH (21:06)
--- NOTE | 2025-01-09 22:10 | P.HP_ITS ---
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 His shortness of breath and cough at worsened since last night. The patient's has been ill with similar symptoms and was just diagnosed with a left upper lobe pneumonia today. On arrival to the ER patient was tachycardia with heart rate in the 120s to 130s. He was afebrile and did not have any documented episodes of tachypnea. He usually is on 3 L at rest and 4 L with activity. However even on his 4 L with activity patient was having desaturations with ambulation in the ER. He reports feeling quite anxious. His chest x-ray in the ER was negative for acute process except for a small right effusion. He had a normal white count and is ABG demonstrated pH of 7.34 normal pCO2 and high PO2 at 104. However ABG was obtained immediately following a nebulizer treatment. The patient's symptoms had improved after nebulizer treatment and IV steroids but he was still in significant distress with ambulation in subsequently has been admitted for observation and continued IV steroid treatment and scheduled nebs. Review of Systems 2 Review of Systems: 12 systems were reviewed with pertinent positives and negatives per HPI. Except as documented in the HPI, all other systems were reviewed and are negative. [facility] Past Medical History Medical History Sliding hiatal hernia Vitamin D deficiency Pulmonary embolism Two thousand twenty-one BPH (benign prostatic hyperplasia) Hiatal hernia Chronic deep vein thrombosis (DVT) Linear echogenic filling defect in the right femoral vein, likely chronic thrombus on venous dopplers 11/2020. Gastroesophageal reflux disease Chronic respiratory failure with hypoxia, on home oxygen therapy COPD with emphysema Chronic steroid therapy, 5 milligrams prednisone daily. Osteoarthritis Surgical History Surgical History S/P respiratory system surgery placement of [place]/endobronchial valves - [facility] H/O colonoscopy History of lung surgery History of bilateral cataract extraction Family History Family History Father Acute myocardial infarction Congestive heart failure Lung cancer Mother Diabetes mellitus Dementia Sibling Diabetes mellitus Lung cancer Social History Social History Social History: Surrogate decision maker: [place], . Code status: Full code. 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 Quit december 2017 Alcohol intake: former Drinks per week: 1 Alcohol use details: Patient currently drinks 2 beers and a shot on the weekends Substance use: former Substance use type: crack/cocaine Last use: 7 Do You Feel Safe in your Home?: Yes Lack of Transportation: No Lack of Food: Never True Current Housing: I Have Housing Concerned About Future Housing: No Difficulty Paying Gas/Electric Bills: No Difficulty Paying for Meds: No Currently Unemployed: No Education: High School Diploma/GED Difficulty w/ Childcare or Family Care: No Living arrangements: with family Additional living arrangements comments: Patient lives with his in [place]. 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 Gender identity (if verbalized by the patient): Male Sexual Orientation (if Verbalized by the Patient): Straight or Heterosexual Spiritual care concerns: No Meds Home Medications and Allergies Home Medications ?Medication ?Instructions ?Recorded ?Confirmed ?Type hydrocodone 5 mg-acetaminophen 325 1 tablet PO Q6H PRN Pain 05/22/22 01/09/25 History mg tablet latanoprost 0.005 % eye drops 1 drp EACH EYE HS 11/20/22 01/09/25 History aspirin 81 mg chewable tablet 81 mg PO DAILY@0800 30 days #30 12/10/22 01/09/25 Rx (Children's Aspirin) tabs albuterol sulfate 2.5 mg/3 mL 2.5 mg (3 mL) inhalation Q6H PRN 07/24/23 01/09/25 Rx (0.083 %) solution for nebulization Shortness Of Breath Or Wheezing #360 mL ipratropium bromide 0.02 % 2.5 ml inhalation Q6H PRN 08/01/23 01/09/25 Rx solution for inhalation shortness of breath or wheezing #300 mL omeprazole 20 mg capsule,delayed 20 mg PO DAILY 10/29/23 01/09/25 History release roflumilast 500 mcg tablet See Rx Instructions .Route 03/17/24 01/09/25 Rx .COMPLEX #30 tabs albuterol sulfate 90 mcg/actuation 1 - 2 puff inhalation Q4-6H PRN 05/05/24 01/09/25 Rx aerosol inhaler shortness of breath or wheezing #8.5 grams fluticasone propionate 50 See Rx Instructions .Route 08/03/24 01/09/25 Rx mcg/actuation nasal .COMPLEX #16 grams spray,suspension benzonatate 200 mg capsule 200 mg PO TID PRN cough #60 caps 08/06/24 01/09/25 Rx fluticasone furoate 100 1 inh inhalation Q24H 08/06/24 01/09/25 History mcg-vilanterol 25 mcg/dose inhalation powder (Breo Ellipta) prednisone 5 mg tablet 5 mg PO DAILY #30 tabs 09/02/24 01/09/25 Rx azithromycin 500 mg tablet See Rx Instructions .Route 11/13/24 01/09/25 Rx .COMPLEX #13 tabs hydroxyzine HCl 25 mg tablet 25 mg PO TID PRN anxiety 12/05/24 01/09/25 History guaifenesin 600 mg tablet, 1,200 mg (2 x 600 mg) PO Q12HR #30 12/08/24 01/09/25 Rx extended release 12 hr (Mucus tabs Relief ER) promethazine-DM 6.25 mg-15 mg/5 mL 5 ml PO Q6H PRN cough #118 mL 12/23/24 01/09/25 Rx oral syrup buspirone 5 mg tablet 5 mg PO DAILY 01/09/25 01/09/25 History mupirocin 2 % topical ointment 1 applic topical BID PRN dry nasal 01/09/25 01/09/25 History passages docusate sodium 100 mg capsule 100 mg PO DAILY constipation 01/10/25 01/10/25 History (Colace) melatonin 5 mg tablet 5 mg PO HS PRN sleep 01/10/25 01/10/25 History Allergies Allergy/AdvReac Type Severity Reaction Status Date / Time oxycodone AdvReac Itching Verified 01/09/25 15:52 Vital Signs Vital Signs - 24 hr 01/09/25 16:12 01/09/25 16:12 01/09/25 16:44 Temperature Pulse Rate 130 H Respiratory Rate Blood Pressure Pulse Oximetry 93 99 Oxygen Delivery Nasal Cannula Nasal Cannula Oxygen Flow Rate 3 4 01/09/25 17:07 01/09/25 18:10 01/09/25 19:00 Temperature 97.9 F 97.7 F Pulse Rate 127 H 121 H Respiratory Rate 19 17 Blood Pressure 162/107 H 165/101 H Pulse Oximetry 98 97 100 Oxygen Delivery Nasal Cannula Oxygen Flow Rate 4 Exam 2 Narrative: Weight 76.9 BMI 25 Const: Other: Well-developed well-nourished, sitting on the side of the bed, appears stated age HENMT: Other: Nasal cannula in place, mucous membranes are tacky, no oral pharyngeal erythema, nasal cannula in place with pursed lip breathing Eyes: Other: Pupils are equal and reactive, no scleral icterus, no conjunctival pallor Neck: Other: No JVD, normal neck circumference Resp: Other: Markedly decreased breath sounds posteriorly, anterior end-expiratory wheezing with click from bronchial valve Cardio: Other: Regular rate, regular rhythm, 2+ bilateral radial pedal pulses GI: Other: Soft, nontender, positive bowel sounds Skin: Other: No jaundice, no pallor Neuro: Other: Alert oriented, speech is clear, no facial asymmetry, no localizing neurologic deficits noted during the course of conversation Extrem: Other: No cyanosis, no edema, 5/5 strength bilateral upper and lower extremities Psych: Other: Appropriate mood and affect, pleasant and cooperative, fair judgment and insight H&P: Results Labs Labs: Laboratory Tests 01/09/25 16:12 01/09/25 16:12 01/09/25 01/09/25 01/09/25 16:11 16:12 17:14 WBC 7.6 RBC 4.60 Hgb 14.4 Hct 43.9 MCV 95.4 MCH 31.3 MCHC 32.8 RDW 13.9 Plt Count 329 MPV 10.3 Immature Gran % (Auto) 0.5 Neut % (Auto) 73.0 Lymph % (Auto) 11.9 L [place] % (Auto) 11.4 H Eos % (Auto) 2.8 Baso % (Auto) 0.4 Lymph # (Auto) 0.90 [place] # (Auto) 0.9 H Eos # (Auto) 0.2 Baso # (Auto) 0.0 Abs Immat Gran (auto) 0.04 H Absolute Neuts (auto) 5.5 Absolute Nucleated RBC 0.000 Nucleated RBC % 0.0 PT 13.3 INR 1.0 APTT 31.0 D-Dimer 0.30 Puncture Site ABG pH ABG pCO2 ABG pO2 ABG PO2/FiO2 Ratio ABG HCO3 ABG O2 Saturation ABG O2 Content ABG Base Excess A-a Gradient Oxyhemoglobin Carboxyhemoglobin Methemoglobin Reduced Hemoglobin Total Hemoglobin O2 Delivery Device O2 Liters/Min FiO2 Sodium 137 Potassium 4.1 Chloride 101 Carbon Dioxide 26 Anion Gap 10 BUN 15 Creatinine 0.70 Estim Creat Clear Calc Not Reportable Estimated GFR > 60 Glucose 110 Calcium 9.3 Total Bilirubin 0.6 AST 31 ALT 26 Alkaline Phosphatase 110 Troponin I < 0.012 NT-Pro-B Natriuret Pep 22 Total Protein 8.0 Albumin 4.5 Lipase 22 L Influenza A (RT-PCR) Negative Influenza B (RT-PCR) Negative RSV (RT-PCR) Negative SARS-CoV-2 RNA (RT-PCR) Negative 01/09/25 01/09/25 19:16 20:33 WBC RBC Hgb Hct MCV MCH MCHC RDW Plt Count MPV Immature Gran % (Auto) Neut % (Auto) Lymph % (Auto) [place] % (Auto) Eos % (Auto) Baso % (Auto) Lymph # (Auto) [place] # (Auto) Eos # (Auto) Baso # (Auto) Abs Immat Gran (auto) Absolute Neuts (auto) Absolute Nucleated RBC Nucleated RBC % PT INR APTT D-Dimer Puncture Site Right radial ABG pH 7.347 L ABG pCO2 42.9 ABG pO2 104.9 H ABG PO2/FiO2 Ratio 2.33 ABG HCO3 23.0 ABG O2 Saturation 97.5 ABG O2 Content 19.4 ABG Base Excess -2.6 A-a Gradient 167.2 Oxyhemoglobin 97.2 Carboxyhemoglobin 0.3 Methemoglobin 0.3 Reduced Hemoglobin 2.2 Total Hemoglobin 14.1 O2 Delivery Device Nasal cannula O2 Liters/Min 5.0 FiO2 45 Sodium Potassium Chloride Carbon Dioxide Anion Gap BUN Creatinine Estim Creat Clear Calc Estimated GFR Glucose Calcium Total Bilirubin AST ALT Alkaline Phosphatase Troponin I < 0.012 NT-Pro-B Natriuret Pep Total Protein Albumin Lipase Influenza A (RT-PCR) Influenza B (RT-PCR) RSV (RT-PCR) SARS-CoV-2 RNA (RT-PCR) Impressions Chest X-Ray 01/09/25 17:36 IMPRESSION: Significant emphysematous change, with possibly a small right-sided pleural effusion, an interval change from prior. Multiple EKGs reviewed most recent demonstrates sinus tachycardia rate 116 normal QTC All imaging and EKGs personally reviewed and interpreted. And unless stated otherwise agree with radiologic and cardiology interpretation. Assessment and Plan Assessment and plan (1) Acute exacerbation of chronic obstructive pulmonary disease (COPD): Code(s): J44.1 - Chronic obstructive pulmonary disease with (acute) exacerbation Status: Acute (2) Acute on chronic hypoxic respiratory failure: Code(s): J96.21 - Acute and chronic respiratory failure with hypoxia Status: Acute (3) Anxiety: Code(s): F41.9 - Anxiety disorder, unspecified Status: Acute Plan Patient has COPD exacerbation cannot rule out completely underlying respiratory tract infection given his which is diagnosed with pneumonia. Patient been started on scheduled IV steroids. Will hold the patient's chronic home p.o. steroids. Will continue scheduled nebulizer treatment. Empiric antibiotic therapy with Rocephin and azithromycin. Will hold the patient's home suppressive doses of azithromycin. Will consult pulmonology the patient reports he has was have PFTs with Dr. Hummel in 4 days. Patient has been weaned back down to his home O2 settings. Will continue home anxiety medications. Will continue home mucolytic and cough suppressant medications. Severe protein calorie malnutrition--patient has had a 14 kg weight loss and a little over a month. He reports a good appetite but is still continued to lose weight. He had had a prior weight loss of 3 kg between September in November. Otherwise will review and resume home medications as appropriate. Quality VTE Prophylaxis VTE prophylaxis: pharmacologic ordered (Lovenox 40 mg subQ daily.) Hospitalist [facility] Advance Care Plan I have confirmed that the patient's Advanced Care Plan is present, code status is documented, or surrogate decision maker is listed in patient medical record.: Yes Medication Reconciliation I have utilized all available resources to obtain, update and review the patients current medications (includes all prescriptions, OTC, herbals, cannabis, and nutritional supplements).: Yes
[2025-01-09 22:28] VITALS: BMI 25.0
--- NOTE | 2025-01-09 22:54 | ADMGEN ---
This patient, [place]ley [place], was admitted to 3 [facility] Surg Room 309-01. Patient/family oriented to hospital policies and general routines including ID bracelet, bed and alarms, visiting hours, pain management, procedures, bathroom and other care routines, personal items, smoking policy, room service/diet, and visiting hours. Information on how to activate the Rapid Response Team has been discussed. Patient/Family are encouraged to report perceived risks to care and to ask questions if they do not understand what they are told or what they should do.
[2025-01-09 23:00] VITALS: BP 129/86; PULSE 112; RESP 18; TEMP 36.8; O2SAT 99
[2025-01-10] VITALS (16 sets, daily range): BP systolic 123–138; BP diastolic 80–87; PULSE 76–119; RESP 18–24; TEMP 35.8–36.8; O2SAT 91–100
[2025-01-10] MEDS: methylPREDNISolone SOD SUCC 125 MG VIAL 60 MG IV PUSH ×2 (00:10→06:38)
[2025-01-10 00:24] LABS: Troponin I < 0.012 ng/mL (0.000-0.034)
[2025-01-10] MEDS: HYDROcodone/acetaminophen (*CRX) 5-325 MG TABLET 1 TAB PO ×3 (03:05→15:24)
[2025-01-10] MEDS: MELATONIN 5 MG TABLET 10 MG PO ×2 (03:06→20:28)
[2025-01-10] MEDS: LEVALBUTEROL NEB 1.25 MG/3 ML 0.63 MG INHALATION ×3 (07:35→20:06)
[2025-01-10] MEDS: IPRATROPIUM BR 0.02% INH SOLN 0.5 MG/2.5 ML VIAL INHALATION ×3 (07:35→20:06)
[2025-01-10] MEDS: FLUTICASONE/SALMETEROL 115-21 MCG INHALER 1 PUFF 2 PUFF INHALATION ×2 (07:36→20:07)
--- NOTE | 2025-01-10 08:26 | PM.IMPN ---
Progress Note: A&P Assessment and Plan (1) Acute exacerbation of chronic obstructive pulmonary disease (COPD): Code(s): J44.1 - Chronic obstructive pulmonary disease with (acute) exacerbation Status: Acute (2) Acute on chronic hypoxic respiratory failure: Code(s): J96.21 - Acute and chronic respiratory failure with hypoxia Status: Acute (3) Anxiety: Code(s): F41.9 - Anxiety disorder, unspecified Status: Acute Plan 64-year-old man with htn, gerd, anxiety, end-stage COPD and severe lung hyperinflation from advanced emphysema has had a [place] valve placement to help with chronic dyspnea. He has a history of frequent COPD exacerbations, managed with low-dose steroids, Daliresp, and Zithromax. He is following with our pulm group, Dr Hummel. He was experiencing tachycardia at home with normal oxygen saturation. 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 He used to do crack but quit while ago as well. On exam, he is comfortable, but gets sob with any kind of excursion. Diminished BS, faint wheezing. Will continue antibiotics- azithromycin, ceftriaxone, oxygen, and bronchodilators. Continue IV steroids until pulm sees pt. 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 Pulm consulted-awaiting recommendations. Pt is wearing 4 l per NC now. Pt is seen and examined. He is calm, pleasant, talkative. Reports sob with rest, no chest pain, no n/v/d. Review of Systems Review of Systems: 12 systems were reviewed with pertinent positives and negatives per HPI. Except as documented in the HPI, all other systems were reviewed and are negative. Exam Const: General: comfortable Other: gets sob with activity Resp: Auscultation: diminished lung sounds Other: faint wheezing Cardio: Rate: tachycardic Rhythm: regular rhythm GI: GI Palp: Yes Soft to palpation Skin: General skin exam: normal color Objective Data Vital Signs Vital Signs: Vital Signs - 24 hr 01/09/25 16:12 01/09/25 16:12 01/09/25 16:44 Temperature Pulse Rate 130 H Respiratory Rate Blood Pressure Pulse Oximetry 93 99 Oxygen Delivery Nasal Cannula Nasal Cannula Oxygen Flow Rate 3 4 01/09/25 17:07 01/09/25 18:10 01/09/25 19:00 Temperature 97.9 F 97.7 F Pulse Rate 127 H 121 H Respiratory Rate 19 17 Blood Pressure 162/107 H 165/101 H Pulse Oximetry 98 97 100 Oxygen Delivery Nasal Cannula Oxygen Flow Rate 4 01/09/25 23:00 01/10/25 00:00 01/10/25 04:00 Temperature 98.2 F Pulse Rate 112 H 113 H Respiratory Rate 18 Blood Pressure 129/86 Pulse Oximetry 99 Oxygen Delivery BiPAP Oxygen Flow Rate 01/10/25 04:00 01/10/25 06:00 01/10/25 07:37 Temperature 98 F Pulse Rate 119 H 91 Respiratory Rate 18 Blood Pressure 123/81 Pulse Oximetry 100 98 Oxygen Delivery Nasal Cannula Oxygen Flow Rate 4 01/10/25 07:37 01/10/25 07:48 Temperature Pulse Rate 89 92 Respiratory Rate 20 20 Blood Pressure Pulse Oximetry Oxygen Delivery Oxygen Flow Rate Intake/Output Intake/Output: Intake & Output 01/07/25 01/08/25 01/09/25 01/10/25 23:59 23:59 23:59 23:59 Intake Total 1350 0 Balance 1350 0 Meds/Results Medications: Active Medications Generic Name Dose Route Start Last Admin Trade Name Freq PRN Reason Stop Dose Admin Acetaminophen 650 mg 01/09/25 21:09 Acetaminophen 325 Mg Tablet PO Q4H PRN Mild Pain (1-3) or Fever Hydrocodone Bitart/Acetaminophen 1 tab 01/10/25 00:39 01/10/25 03:05 Hydrocodone/Acetaminophen (*Crx) 5-325 Mg Tablet PO 1 tab Q6H PRN Administration Pain 4-6 Aspirin 81 mg 01/10/25 08:00 Aspirin 81 Mg Chewable Tablet PO DAILY@0800 DAVIAN Benzonatate 200 mg 01/10/25 00:52 Benzonatate 100 Mg Capsule PO TID PRN cough Buspirone HCl 5 mg 01/10/25 09:00 Buspirone Hcl 5 Mg Tablet PO DAILY DAVIAN Dextrose 12.5 gm 01/09/25 21:09 Dextrose 50% 25 Gm/50 Ml Syringe IV PUSH PRN PRN Hypoglycemia Protocol Fluticasone Propionate 1 spray 01/10/25 00:40 Fluticasone Propionate 0.05% Na Spr 16 Gm Btl (*Bkc) NASAL BID PRN ALLERGIES Glucagon 1 mg 01/09/25 21:09 Glucagon For Inj 1 Mg Vial IM PRN PRN Hypoglycemia Protocol Glucose 15 gm 01/09/25 21:09 Glucose Oral Gel 15 Gm Of Glucse In 37.5 Gm Tube PO PRN PRN Hypoglycemia Protocol Guaifenesin 1,200 mg 01/10/25 09:00 Guaifenesin 12 Hr 600 Mg Tabcr PO Q12HR DAVIAN Hydroxyzine HCl 25 mg 01/10/25 00:39 Hydroxyzine Hcl 25 Mg Tablet PO TID PRN anxiety Ceftriaxone Sodium 1 gm in 50 mls @ 100 mls/hr 01/10/25 21:00 Rocephin 1 Gm/Ns 50 Ml IVPB Q24H DAVIAN Azithromycin 500 mg in 250 mls @ 250 mls/hr 01/10/25 20:00 Zithromax IVPB Q24H DAVIAN Dextrose 1,000 mls @ 100 mls/hr 01/09/25 21:09 Dextrose 5% 1,000 Ml IVPB PRN PRN Hypoglycemia Protocol Ipratropium [place] 0.5 mg 01/10/25 02:00 01/10/25 07:35 Ipratropium Br 0.02% Inh Soln 0.5 Mg/2.5 Ml Vial INHALATION 0.5 mg Q6HRT DAVIAN Administration Latanoprost 1 drop 01/10/25 21:00 Latanoprost 0.005% Op Soln 2.5 Ml Btl EACH EYE HS ON LICENSE OF [facility] Levalbuterol HCl 0.63 mg 01/10/25 02:00 01/10/25 07:35 Levalbuterol Neb 1.25 Mg/3 Ml INHALATION 0.63 mg Q6HRT DAVIAN Administration Melatonin 10 mg 01/10/25 21:00 Melatonin 5 Mg Tablet PO HS DAVIAN Methylprednisolone Sodium Succinate 60 mg 01/10/25 00:00 01/10/25 06:38 Methylprednisolone Sod Succ 125 Mg Vial IV PUSH 60 mg Q6HR DAVIAN Administration Morphine Sulfate 2 mg 01/09/25 21:09 Morphine Sulfate (*Crx) 2 Mg/Ml Inj IV PUSH Q2H PRN Pain Rated 7-10 Pantoprazole Sodium 40 mg 01/10/25 09:00 Pantoprazole 40 Mg Tablet PO QAM DAVIAN Roflumilast 500 mcg 01/10/25 09:00 Roflumilast 500 Mcg Tablet BY MOUTH DAILY DAVIAN Fluticasone/Salmeterol 2 puff 01/10/25 08:00 01/10/25 07:36 Fluticasone/Salmeterol 115-21 Mcg Inhaler 1 Puff INHALATION 2 puff Q12HRT DAVIAN Administration Radiology Results: ITS Impressions Chest X-Ray 01/09/25 17:36 IMPRESSION: Significant emphysematous change, with possibly a small right-sided pleural effusion, an interval change from prior. Labs Labs: Laboratory Results - last 24 hr 01/09/25 01/09/25 01/09/25 16:11 16:12 17:14 WBC 7.6 RBC 4.60 Hgb 14.4 Hct 43.9 MCV 95.4 MCH 31.3 MCHC 32.8 RDW 13.9 Plt Count 329 MPV 10.3 Immature Gran % (Auto) 0.5 Neut % (Auto) 73.0 Lymph % (Auto) 11.9 L [place] % (Auto) 11.4 H Eos % (Auto) 2.8 Baso % (Auto) 0.4 Lymph # (Auto) 0.90 [place] # (Auto) 0.9 H Eos # (Auto) 0.2 Baso # (Auto) 0.0 Abs Immat Gran (auto) 0.04 H Absolute Neuts (auto) 5.5 Absolute Nucleated RBC 0.000 Nucleated RBC % 0.0 PT 13.3 INR 1.0 APTT 31.0 D-Dimer 0.30 Puncture Site ABG pH ABG pCO2 ABG pO2 ABG PO2/FiO2 Ratio ABG HCO3 ABG O2 Saturation ABG O2 Content ABG Base Excess A-a Gradient Oxyhemoglobin Carboxyhemoglobin Methemoglobin Reduced Hemoglobin Total Hemoglobin O2 Delivery Device O2 Liters/Min FiO2 Sodium 137 Potassium 4.1 Chloride 101 Carbon Dioxide 26 Anion Gap 10 BUN 15 Creatinine 0.70 Estim Creat Clear Calc Not Reportable Estimated GFR > 60 Glucose 110 Calcium 9.3 Total Bilirubin 0.6 AST 31 ALT 26 Alkaline Phosphatase 110 Troponin I < 0.012 NT-Pro-B Natriuret Pep 22 Total Protein 8.0 Albumin 4.5 Lipase 22 L Influenza A (RT-PCR) Negative Influenza B (RT-PCR) Negative RSV (RT-PCR) Negative SARS-CoV-2 RNA (RT-PCR) Negative 01/09/25 01/09/25 01/09/25 19:16 20:33 23:55 WBC RBC Hgb Hct MCV MCH MCHC RDW Plt Count MPV Immature Gran % (Auto) Neut % (Auto) Lymph % (Auto) [place] % (Auto) Eos % (Auto) Baso % (Auto) Lymph # (Auto) [place] # (Auto) Eos # (Auto) Baso # (Auto) Abs Immat Gran (auto) Absolute Neuts (auto) Absolute Nucleated RBC Nucleated RBC % PT INR APTT D-Dimer Puncture Site Right radial ABG pH 7.347 L ABG pCO2 42.9 ABG pO2 104.9 H ABG PO2/FiO2 Ratio 2.33 ABG HCO3 23.0 ABG O2 Saturation 97.5 ABG O2 Content 19.4 ABG Base Excess -2.6 A-a Gradient 167.2 Oxyhemoglobin 97.2 Carboxyhemoglobin 0.3 Methemoglobin 0.3 Reduced Hemoglobin 2.2 Total Hemoglobin 14.1 O2 Delivery Device Nasal cannula O2 Liters/Min 5.0 FiO2 45 Sodium Potassium Chloride Carbon Dioxide Anion Gap BUN Creatinine Estim Creat Clear Calc Estimated GFR Glucose Calcium Total Bilirubin AST ALT Alkaline Phosphatase Troponin I < 0.012 < 0.012 NT-Pro-B Natriuret Pep Total Protein Albumin Lipase Influenza A (RT-PCR) Influenza B (RT-PCR) RSV (RT-PCR) SARS-CoV-2 RNA (RT-PCR) Quality VTE Prophylaxis VTE prophylaxis: pharmacologic ordered
[2025-01-10] MEDS: ASPIRIN 81 MG CHEWABLE TABLET PO (09:23)
[2025-01-10] MEDS: ROFLUMILAST 500 MCG TABLET BY MOUTH (09:24)
[2025-01-10] MEDS: PANTOPRAZOLE 40 MG TABLET PO (09:24)
[2025-01-10] MEDS: guaiFENesin 12 HR 600 MG TABCR 1200 MG PO ×2 (09:24→20:28)
[2025-01-10] MEDS: busPIRone HCL 5 MG TABLET PO (09:24)
[2025-01-10] MEDS: hydrOXYzine HCL 25 MG TABLET PO ×2 (09:25→19:03)
[2025-01-10] MEDS: FLUTICASONE PROPIONATE 0.05% NA SPR 16 GM BTL (*BKC) 1 SPRAY NASAL (09:26)
[2025-01-10] MEDS: BENZONATATE 100 MG CAPSULE 200 MG PO ×2 (09:26→19:03)
--- NOTE | 2025-01-10 10:49 | PM.CNPUL ---
Assessment and Plan Assessment and plan (1) Chronic respiratory failure: Qualifiers: Respiratory failure complication: hypoxia and hypercapnia Qualified Code(s): J96.11 - Chronic respiratory failure with hypoxia; J96.12 - Chronic respiratory failure with hypercapnia; J96.12 - Chronic respiratory failure with hypercapnia Code(s): J96.10 - Chronic respiratory failure, unspecified whether with hypoxia or hypercapnia Status: Acute (2) COPD exacerbation: Code(s): J44.1 - Chronic obstructive pulmonary disease with (acute) exacerbation Status: Acute Assessment and Plan: This 64-year-old man with end-stage COPD and severe lung hyperinflation from advanced emphysema has had a Golden valve placement to help with chronic dyspnea. He also has allergies, anxiety, and a history of frequent COPD exacerbations, managed with low-dose steroids, Daliresp, and Zithromax. Some past hospitalizations were due to anxiety rather than true COPD exacerbations. He reported primarily experiencing tachycardia and coughing up some phlegm. On physical exam today, there is no wheezing. I suspect his current hospitalization was triggered by mild bronchitis and anxiety. Normal BNP and D-dimers make conditions like congestive heart failure and embolism highly unlikely. His condition has already improved with the current management. Plan: Continue prescribed antibiotics, oxygen, DVT prophylaxis, and nebulized short-acting bronchodilators. I have switched the patient to oral steroids and anticipate discharge home within the next 48 hours. (3) Anxiety: Code(s): F41.9 - Anxiety disorder, unspecified Status: Acute History of Present Illness History of Present Illness Consult date: 01/10/25 Chief complaint: COPD exacerbation, Acute on chronic resp failure Narrative: A 64-year-old male with end-stage COPD, FEV1 in the range of 30% predicted, is well known to Pulmonary Services from previous hospitalizations and outpatient follow-ups. He has chronic hypoxemic respiratory failure, requiring continuous home supplemental oxygen and a home ventilator. His advanced COPD includes lung hyperinflation, and he has undergone Golden valve placement, resulting in the collapse of the right upper lobe to alleviate chronic shortness of breath. His maintenance regimen consists of bronchodilators, short-acting bronchodilators, and medications for frequent exacerbations, such as Zithromax, Daliresp, and prednisone 5 mg daily. He was last seen in the pulmonary clinic about six months ago. Over the past few years, he has attended pulmonary rehab with significant improvements in exercise capacity and weight loss. The patient presented with a one-day history of shortness of breath and tachycardia during activities. He reported that his home pulse oximetry showed stable oxygen levels (95-96%) but a pulse rate around 150 bpm. He had mild coughing with light yellow sputum, but no fever, chills, hemoptysis, chest pain, or lower extremity edema. His was recently diagnosed with pneumonia. In the ER, a chest X-ray suggested a small right pleural effusion, with no new infiltrates. ABGs showed no significant hypercapnic respiratory failure, and BNP, D-dimers, and WBC were not elevated. He has been receiving antibiotics, IV steroids, and short-acting bronchodilators for a COPD exacerbation, with some improvement in his respiratory status over the past 24 hours. Review of Systems Review of Systems: All systems reviewed & are unremarkable except as noted in HPI and below (HPI and below) [facility] Past Medical History Medical History Sliding hiatal hernia Vitamin D deficiency Pulmonary embolism Two thousand twenty-one BPH (benign prostatic hyperplasia) Hiatal hernia Chronic deep vein thrombosis (DVT) Linear echogenic filling defect in the right femoral vein, likely chronic thrombus on venous dopplers 11/2020. Gastroesophageal reflux disease Chronic respiratory failure with hypoxia, on home oxygen therapy COPD with emphysema Chronic steroid therapy, 5 milligrams prednisone daily. Osteoarthritis Surgical History Surgical History S/P respiratory system surgery placement of Golden/endobronchial valves - [facility] H/O colonoscopy History of lung surgery History of bilateral cataract extraction Family History Family History Father Acute myocardial infarction Congestive heart failure Lung cancer Mother Diabetes mellitus Dementia Sibling Diabetes mellitus Lung cancer Social History Social History Social History: Surrogate decision maker: [place], . Code status: Full code. 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 Quit december 2017 Alcohol intake: former Drinks per week: 1 Alcohol use details: Patient currently drinks 2 beers and a shot on the weekends Substance use: former Substance use type: crack/cocaine Last use: 7 Do You Feel Safe in your Home?: Yes Lack of Transportation: No Lack of Food: Never True Current Housing: I Have Housing Concerned About Future Housing: No Difficulty Paying Gas/Electric Bills: No Difficulty Paying for Meds: No Currently Unemployed: No Education: High School Diploma/GED Difficulty w/ Childcare or Family Care: No Living arrangements: with family Additional living arrangements comments: Patient lives with his in [place]. 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 Gender identity (if verbalized by the patient): Male Sexual Orientation (if Verbalized by the Patient): Straight or Heterosexual Spiritual care concerns: No Meds Home Medications and Allergies Home Medications ?Medication ?Instructions ?Recorded ?Confirmed ?Type hydrocodone 5 mg-acetaminophen 325 1 tablet PO Q6H PRN Pain 05/22/22 01/09/25 History mg tablet latanoprost 0.005 % eye drops 1 drp EACH EYE HS 11/20/22 01/09/25 History aspirin 81 mg chewable tablet 81 mg PO DAILY@0800 30 days #30 12/10/22 01/09/25 Rx (Children[facility] Aspirin) tabs albuterol sulfate 2.5 mg/3 mL 2.5 mg (3 mL) inhalation Q6H PRN 07/24/23 01/09/25 Rx (0.083 %) solution for nebulization Shortness Of Breath Or Wheezing #360 mL ipratropium bromide 0.02 % 2.5 ml inhalation Q6H PRN 08/01/23 01/09/25 Rx solution for inhalation shortness of breath or wheezing #300 mL omeprazole 20 mg capsule,delayed 20 mg PO DAILY 10/29/23 01/09/25 History release roflumilast 500 mcg tablet See Rx Instructions .Route 03/17/24 01/09/25 Rx .COMPLEX #30 tabs albuterol sulfate 90 mcg/actuation 1 - 2 puff inhalation Q4-6H PRN 05/05/24 01/09/25 Rx aerosol inhaler shortness of breath or wheezing #8.5 grams fluticasone propionate 50 See Rx Instructions .Route 08/03/24 01/09/25 Rx mcg/actuation nasal .COMPLEX #16 grams spray,suspension benzonatate 200 mg capsule 200 mg PO TID PRN cough #60 caps 08/06/24 01/09/25 Rx fluticasone furoate 100 1 inh inhalation Q24H 08/06/24 01/09/25 History mcg-vilanterol 25 mcg/dose inhalation powder (Breo Ellipta) prednisone 5 mg tablet 5 mg PO DAILY #30 tabs 09/02/24 01/09/25 Rx azithromycin 500 mg tablet See Rx Instructions .Route 11/13/24 01/09/25 Rx .COMPLEX #13 tabs hydroxyzine HCl 25 mg tablet 25 mg PO TID PRN anxiety 12/05/24 01/09/25 History guaifenesin 600 mg tablet, 1,200 mg (2 x 600 mg) PO Q12HR #30 12/08/24 01/09/25 Rx extended release 12 hr (Mucus tabs Relief ER) promethazine-DM 6.25 mg-15 mg/5 mL 5 ml PO Q6H PRN cough #118 mL 12/23/24 01/09/25 Rx oral syrup buspirone 5 mg tablet 5 mg PO DAILY 01/09/25 01/09/25 History mupirocin 2 % topical ointment 1 applic topical BID PRN dry nasal 01/09/25 01/09/25 History passages docusate sodium 100 mg capsule 100 mg PO DAILY constipation 01/10/25 01/10/25 History (Colace) melatonin 5 mg tablet 5 mg PO HS PRN sleep 01/10/25 01/10/25 History Allergies Allergy/AdvReac Type Severity Reaction Status Date / Time oxycodone AdvReac Itching Verified 01/09/25 15:52 Vital Signs Vital Signs - 24 hr 01/09/25 16:12 01/09/25 16:12 01/09/25 16:44 Temperature Pulse Rate 130 H Respiratory Rate Blood Pressure Pulse Oximetry 93 99 Oxygen Delivery Nasal Cannula Nasal Cannula Oxygen Flow Rate 3 4 01/09/25 17:07 01/09/25 18:10 01/09/25 19:00 Temperature 36.6 C 36.5 C Pulse Rate 127 H 121 H Respiratory Rate 19 17 Blood Pressure 162/107 H 165/101 H Pulse Oximetry 98 97 100 Oxygen Delivery Nasal Cannula Oxygen Flow Rate 4 01/09/25 23:00 01/10/25 00:00 01/10/25 04:00 Temperature 36.8 C Pulse Rate 112 H 113 H Respiratory Rate 18 Blood Pressure 129/86 Pulse Oximetry 99 Oxygen Delivery BiPAP Oxygen Flow Rate 01/10/25 04:00 01/10/25 06:00 01/10/25 07:37 Temperature 36.6 C Pulse Rate 119 H 91 Respiratory Rate 18 Blood Pressure 123/81 Pulse Oximetry 100 98 Oxygen Delivery Nasal Cannula Oxygen Flow Rate 4 01/10/25 07:37 01/10/25 07:48 Temperature Pulse Rate 89 92 Respiratory Rate 20 20 Blood Pressure Pulse Oximetry Oxygen Delivery Oxygen Flow Rate Exam Narrative: GENERAL APPEARANCE: Well developed, well nourished, alert and cooperative, who appears to be in mild respiratory distress while on supplemental oxygen. SKIN: Inspection of the skin reveals no rashes, ulcerations or petechiae. HEENT: Sclerae anicteric and conjunctivae pink and moist. Extraocular movements were intact and pupils were equal, round. NECK: Supple. There was no thyroid enlargement, and no tenderness, or masses were felt. CHEST: Normal AP diameter and normal contour without any kyphoscoliosis. LUNGS: Auscultation of the lungs revealed distant breath sounds, no wheezing CARDIAC: Tachycardia. There was a regular rate and rhythm without any murmurs, gallops, rubs. ABDOMEN: Soft and nontender with normal bowel sounds. There was no organomegaly. LYMPH NODES: No lymphadenopathy was appreciated in the neck. EXTREMITIES: No cyanosis, clubbing or edema. NEUROLOGIC: Alert and oriented x 3. Normal affect. Results Laboratory Findings 01/09/25 16:12 01/09/25 16:12 ABG, PT/INR, D-dimer: ABG ABG pH 7.347 (7.350-7.450) L 01/09/25 20:33 ABG pCO2 42.9 mmHg (35.0-45.0) 01/09/25 20:33 ABG pO2 104.9 mmHg (80.0-100.0) H 01/09/25 20:33 ABG O2 Saturation 97.5 % (95.0-100.0) 01/09/25 20:33 PT/INR, D-dimer PT 13.3 Seconds (11.1-14.7) 01/09/25 16:12 INR 1.0 01/09/25 16:12 D-Dimer 0.30 ug/mL (<0.48) 01/09/25 16:11 Abnormal lab findings: Abnormal Labs 01/09/25 01/09/25 16:12 20:33 Lymph % (Auto) 11.9 L [place] % (Auto) 11.4 H [place] # (Auto) 0.9 H Abs Immat Gran (auto) 0.04 H ABG pH 7.347 L ABG pO2 104.9 H Lipase 22 L
[2025-01-10] MEDS: polyethylene glycoL 3350 17 GM POWD.PACK PO (12:24)
[2025-01-10] MEDS: MUPIROCIN 2% OINT 22 GM TUBE 1 APPLIC TOPICAL (12:25)
[2025-01-10] MEDS: ENOXAPARIN 40 MG/0.4 ML SYRINGE SUB-Q (14:20)
[2025-01-10] MEDS: AZITHROMYCIN 500 MG/NS 250 ML 500 MG/250 ML BAG 250 MG IVPB (20:27)
[2025-01-10] MEDS: LATANOPROST 0.005% OP SOLN 2.5 ML BTL 1 DROP EACH EYE (20:28)
[2025-01-10] MEDS: ACETAMINOPHEN 325 MG TABLET 650 MG PO (21:34)
[2025-01-11] VITALS (17 sets, daily range): BP systolic 140–153; BP diastolic 74–97; PULSE 88–126; RESP 20–26; TEMP 36.3–36.8; O2SAT 96–100
[2025-01-11] MEDS: IPRATROPIUM BR 0.02% INH SOLN 0.5 MG/2.5 ML VIAL INHALATION ×4 (02:29→20:11)
[2025-01-11] MEDS: LEVALBUTEROL NEB 1.25 MG/3 ML 0.63 MG INHALATION ×4 (02:29→20:10)
[2025-01-11] MEDS: hydrOXYzine HCL 25 MG TABLET PO ×3 (04:15→20:43)
[2025-01-11] MEDS: BENZONATATE 100 MG CAPSULE 200 MG PO ×2 (04:15→09:46)
[2025-01-11] MEDS: HYDROcodone/acetaminophen (*CRX) 5-325 MG TABLET 1 TAB PO (04:15)
[2025-01-11] MEDS: FLUTICASONE/SALMETEROL 115-21 MCG INHALER 1 PUFF 2 PUFF INHALATION (07:49)
[2025-01-11] MEDS: ENOXAPARIN 40 MG/0.4 ML SYRINGE SUB-Q (09:40)
[2025-01-11] MEDS: guaiFENesin 12 HR 600 MG TABCR 1200 MG PO ×2 (09:42→20:39)
[2025-01-11] MEDS: PANTOPRAZOLE 40 MG TABLET PO (09:42)
[2025-01-11] MEDS: busPIRone HCL 5 MG TABLET PO (09:42)
[2025-01-11] MEDS: predniSONE 20 MG TABLET 40 MG PO (09:42)
[2025-01-11] MEDS: ROFLUMILAST 500 MCG TABLET BY MOUTH (09:42)
[2025-01-11] MEDS: ASPIRIN 81 MG CHEWABLE TABLET PO (09:42)
--- NOTE | 2025-01-11 11:46 | P.PNPL_ITS ---
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 He also has allergies, anxiety, and a history of frequent COPD exacerbations, managed with low-dose steroids, Daliresp, and Zithromax. Some past hospitalizations were due to anxiety rather than true COPD exacerbations. patient is on 3 L with rest, 3 L with activity and 3 L bleed in with his noninvasive ventilator at night. He reported primarily experiencing tachycardia and coughing up some phlegm. On physical exam today, there is no wheezing. I suspect his current hospitalization was triggered by mild bronchitis and anxiety. Normal BNP and D-dimers make conditions like congestive heart failure and embolism highly unlikely. His condition has already improved with the current management. Plan: Continue prescribed antibiotics, oxygen, DVT prophylaxis, and nebulized short-acting bronchodilators. I have switched the patient to oral steroids and anticipate discharge home within the next 48 hours. 01/11/2025: Patient tells me that his breathing is about the same. He states he has 15% back to his normal. He says his heart rate is better. Currently patient is on 4 L nasal cannula saturations 100%. He refuses to allow me to decrease to 3 L at this point because he says he is anxious when it gets turned down. tolerate his home astral with 3 L bleed in. Plan: Continue prednisone 40 mg a day, day 3 of steroids. Continue levalbuterol and ipratropium nebulizers q.6 hours. The patient has sinus tachycardia and will not increase his nebulizers at this time. Continue guaifenesin 1200 mg p.o. b.i.d.. Continue Daliresp 500 q.day. patient is on ceftriaxone and azithromycin both day 3 for possible Pneumonia-bronchitis and will continue today. Goal saturation 90-94%. Patient is currently refusing to decrease his oxygen as this makes his anxiety worse. I will check a respiratory pathogen panel looking for a viral infection causing this exacerbation. Regarding his noninvasive ventilator I will obtain a download from mention. I will obtain an overnight oximetry on his astral with 3 L bleed in. Will follow with you. Subjective Date/time seen: 01/11/25 11:46 Interval history: 01/10/25: New pulmonary consult Chief complaint: COPD exacerbation, Acute on chronic resp failure Narrative: A 64-year-old male with end-stage COPD, FEV1 in the range of 30% predicted, is well known to Pulmonary Services from previous hospitalizations and outpatient follow-ups. He has chronic hypoxemic respiratory failure, requiring continuous home supplemental oxygen At 3 L nasal cannula at rest, with activity and 3 L at night with his home ventilator. His advanced COPD includes lung hyperinflation, and he has undergone [place] valve placement, resulting in the collapse of the right upper lobe to alleviate chronic shortness of breath. His maintenance regimen consists of bronchodilators, short-acting bronchodilators, and medications for frequent exacerbations, such as Zithromax, Daliresp, and pr ednisone 5 mg daily. He was last seen in the pulmonary clinic about six months ago. Over the past few years, he has attended pulmonary rehab with significant improvements in exercise capacity and weight loss. The patient presented with a one-day history of shortness of breath and tachycardia during activities. He reported that his home pulse oximetry showed stable oxygen levels (95-96%) but a pulse rate around 150 bpm. He had mild coughing with light yellow sputum, but no fever, chills, hemoptysis, chest pain, or lower extremity edema. His was recently diagnosed with pneumonia. In the ER, a chest X-ray suggested a small right pleural effusion, with no new infiltrates. ABGs showed no significant hypercapnic respiratory failure, 7.35/43/105 on 5 L nasal cannula, and BNP, D-dimers, and WBC were not elevated. He has been receiving antibiotics, IV steroids, and short-acting bronchodilators for a COPD exacerbation, with some improvement in his respiratory status over the past 24 hours. 01/11/2025: Patient tells me that his breathing is about the same. He states he has 15% back to his normal. He says his heart rate is better. Currently patient is on 4 L nasal cannula saturations 100%. He refuses to allow me to decrease to 3 L at this point because he says he is anxious when it gets turned down. tolerate his home astral with 3 L bleed in. DATA: 11/27/2024: EXAMINATION: CTA chest PE protocol DATE: 11/27/2024 12:10 INDICATION: Chest pain and dyspnea TECHNIQUE: Computed tomography (CT) pulmonary angiogram of the chest was performed with 100 mL Omnipaque-350 intravenous contrast. Additional 3D reconstructions utilizing coronal maximum intensity projection (MIP) were performed. Automated exposure control and iterative reconstruction technique were employed. The dose-length product was 832.10 mGy-cm. COMPARISON: 02/19/2024 and 02/17/2023 FINDINGS: No pulmonary embolism. Chronic right upper lobe collapse with endobronchial valves in the right upper lobe are segmental bronchi. Chronic mild linear discoid atelectasis/scarring in the bilateral lower lobes, right greater than left. No pneumonia, pulmonary edema, pleural effusion or pneumothorax. Heart size is normal. Atherosclerotic coronary artery calcification is. No pericardial effusion. Thoracic aorta is normal in caliber with no dissection. Multinodular goiter. No pathologically enlarged thoracic lymphadenopathy. A couple 2 mm nonobstructing stones at an upper pole calyx of the right kidney. Mild thoracic spondylosis. IMPRESSION: 1. No pulmonary embolism or other acute cardiopulmonary disease. 2. Moderate emphysema with endobronchial valves in the right upper lobar bronchi with chronic collapse of the right upper lobe. 3. Multinodular goiter. 4. Nonobstructing right nephrolithiasis. LDCT 02/19/24 - chronic complete right upper lobe atelectasis with endobronchial valves present. Moderate emphysema present. There is linear scarring right lower lobe. Chest CTA 02/17/23 - No pulmonary embolus. Moderate emphysema. Chronic right upper lobe collapse with endobronchial valves. Chest CT 11/25/22 - Minimal left basilar atelectasis. Persistent right upper lobe collapse. Endobronchial devices in right upper lobe bronchi. Chest CTA 11/20/22 - No evidence of pulmonary embolus, aortic dissection, or aortic aneurysm. Chronic complete right upper lobe collapse, as seen on prior exam. Minimal emphysema. PFT @ [place] 01/16/19 very severe obstructive abnormality without significant improvement after bronchodilator. Hyperinflation and air trapping noted. DLCO is severely decreased. FEV1 0.74L, 30%. 05/10/22 Echo: EF 55-60%, grade I diastolic dysfunction (E/e' 9). No pulmonary hypertension, estimated pulmonary arterial systolic pressure is 26 mmHg. Review of Systems Constitutional: Constitutional: Reports no additional constitutional complaints Eyes: Eyes: Reports no additional eye complaints ENT: Reports system reviewed and no additional complaints, except as documented Cardiovascular: Cardiovascular: Reports no additional cardiovascular complaints Respiratory: Respiratory: Reports no additional respiratory complaints Gastrointestinal: Gastrointestinal: Reports no additional gastrointestinal complaints Musculoskeletal: Musculoskeletal: Reports no additional musculoskeletal complaints Neurologic: Reports system reviewed and no additional complaints, except as documented Psychiatric: Psychiatric: Reports no additional psychiatric complaints Endocrine: Endocrine: Reports no additional endocrine complaints Hematologic/Lymphatic: Hematologic/Lymphatic: Reports no additional hematologic/lymphatic complaints Allergic/Immunologic: Allergic/Immunologic: Reports no additional allergic/immunologic complaints Exam Const: General: cooperative, healthy appearing and comfortable Orientation/consciousness: oriented to person, oriented to place and oriented to time HENMT: Head: normal to inspection Ears: hearing grossly normal bilaterally Eyes: General: appearance normal, both eyes and all related structures Neck: Neck: normal visual inspection Chest: Chest palpation & inspection: normal inspection of the chest Resp: Effort & Inspection: normal respiratory effort and able to speak in complete sentences Auscultation: no crackles, no rales, no rhonchi, wheezes and lung sounds not diminished Cardio: Jugular venous distension: no JVD GI: Inspection: normal to inspection GI Palp: No abdominal tenderness Skin: General skin exam: normal color Neuro: General: oriented to person, oriented to place and oriented to time Extrem: General: normal to inspection Psych: Appearance: grossly normal Objective Data Vital Signs Vital Signs: Vital Signs - 24 hr 01/10/25 12:00 01/10/25 13:23 01/10/25 13:35 Temperature Pulse Rate 90 99 76 Respiratory Rate 20 20 Blood Pressure Pulse Oximetry Oxygen Delivery Oxygen Flow Rate 01/10/25 15:26 01/10/25 16:00 01/10/25 20:00 Temperature 36.8 C 35.8 C L Pulse Rate 100 92 91 Respiratory Rate 18 20 Blood Pressure 137/80 138/87 Pulse Oximetry 98 98 Oxygen Delivery Oxygen Flow Rate 01/10/25 20:02 01/10/25 20:07 01/10/25 20:07 Temperature Pulse Rate 112 H 91 Respiratory Rate 24 H Blood Pressure Pulse Oximetry 91 Oxygen Delivery Nasal Cannula Oxygen Flow Rate 4 03/30/25 20:20 01/10/25 20:25 01/11/25 00:02 Temperature Pulse Rate 99 103 H Respiratory Rate 24 H 24 H Blood Pressure Pulse Oximetry 91 Oxygen Delivery Nasal Cannula Oxygen Flow Rate 4 01/11/25 02:29 01/11/25 02:43 01/11/25 04:02 Temperature Pulse Rate 91 88 126 H Respiratory Rate 22 H 22 H Blood Pressure Pulse Oximetry Oxygen Delivery Oxygen Flow Rate 01/11/25 04:05 01/11/25 07:50 01/11/25 07:50 Temperature 36.3 C L Pulse Rate 108 H 95 Respiratory Rate 20 24 H Blood Pressure 153/74 H Pulse Oximetry 99 98 Oxygen Delivery Nasal Cannula Oxygen Flow Rate 4 01/11/25 08:00 01/11/25 08:00 01/11/25 08:03 Temperature Pulse Rate 117 H 107 H 89 Respiratory Rate 24 H Blood Pressure Pulse Oximetry 100 Oxygen Delivery Nasal Cannula Oxygen Flow Rate 3 Intake/Output Intake/Output: Intake & Output 01/08/25 01/09/25 01/10/25 01/11/25 23:59 23:59 23:59 23:59 Intake Total 1350 340 608 Output Total 1100 300 Balance 1350 -760 308 Meds/Results Medications: Active Medications Generic Name Dose Route Start Last Admin Trade Name Freq PRN Reason Stop Dose Admin Acetaminophen 650 mg 01/09/25 21:09 01/10/25 21:34 Acetaminophen 325 Mg Tablet PO 650 mg Q4H PRN Administration Mild Pain (1-3) or Fever Hydrocodone Bitart/Acetaminophen 1 tab 01/10/25 00:39 01/11/25 04:15 Hydrocodone/Acetaminophen (*Crx) 5-325 Mg Tablet PO 1 tab Q6H PRN Administration Pain 4-6 Aspirin 81 mg 01/10/25 08:00 01/11/25 09:42 Aspirin 81 Mg Chewable Tablet PO 81 mg DAILY@0800 DAVIAN Administration Benzonatate 200 mg 01/10/25 00:52 01/11/25 09:46 Benzonatate 100 Mg Capsule PO 200 mg TID PRN Administration cough Buspirone HCl 5 mg 01/10/25 09:00 01/11/25 09:42 Buspirone Hcl 5 Mg Tablet PO 5 mg DAILY DAVIAN Administration Dextrose 12.5 gm 01/09/25 21:09 Dextrose 50% 25 Gm/50 Ml Syringe IV PUSH PRN PRN Hypoglycemia Protocol Enoxaparin Sodium 40 mg 01/10/25 12:45 01/11/25 09:40 Enoxaparin 40 Mg/0.4 Ml Syringe SUB-Q 40 mg DAILY DAVIAN Administration Fluticasone Propionate 1 spray 01/10/25 00:40 01/10/25 09:26 Fluticasone Propionate 0.05% Na Spr 16 Gm Btl (*Bkc) NASAL 1 spray BID PRN Administration ALLERGIES Glucagon 1 mg 01/09/25 21:09 Glucagon For Inj 1 Mg Vial IM PRN PRN Hypoglycemia Protocol Glucose 15 gm 01/09/25 21:09 Glucose Oral Gel 15 Gm Of Glucse In 37.5 Gm Tube PO PRN PRN Hypoglycemia Protocol Guaifenesin 1,200 mg 01/10/25 09:00 01/11/25 09:42 Guaifenesin 12 Hr 600 Mg Tabcr PO 1,200 mg Q12HR DAVIAN Administration Hydroxyzine HCl 25 mg 01/10/25 00:39 01/11/25 09:46 Hydroxyzine Hcl 25 Mg Tablet PO 25 mg TID PRN Administration anxiety Ceftriaxone Sodium 1 gm in 50 mls @ 100 mls/hr 01/10/25 21:00 01/10/25 21:34 Rocephin 1 Gm/Ns 50 Ml IVPB 100 mls/hr Q24H DAVIAN Administration Azithromycin 500 mg in 250 mls @ 250 mls/hr 01/10/25 20:00 01/10/25 20:27 Zithromax IVPB 250 mls/hr Q24H DAVIAN Administration Dextrose 1,000 mls @ 100 mls/hr 01/09/25 21:09 Dextrose 5% 1,000 Ml IVPB PRN PRN Hypoglycemia Protocol Ipratropium [place] 0.5 mg 01/10/25 02:00 01/11/25 07:49 Ipratropium Br 0.02% Inh Soln 0.5 Mg/2.5 Ml Vial INHALATION 0.5 mg Q6HRT DAVIAN Administration Latanoprost 1 drop 01/10/25 21:00 01/10/25 20:28 Latanoprost 0.005% Op Soln 2.5 Ml Btl EACH EYE 1 drop HS DAVIAN Administration Levalbuterol HCl 0.63 mg 01/10/25 02:00 01/11/25 07:50 Levalbuterol Neb 1.25 Mg/3 Ml INHALATION 0.63 mg Q6HRT DAVIAN Administration Melatonin 10 mg 01/10/25 21:00 01/10/25 20:28 Melatonin 5 Mg Tablet PO 10 mg HS DAVIAN Administration Melatonin 5 mg 01/10/25 11:53 Melatonin 5 Mg Tablet PO HS PRN sleep Morphine Sulfate 2 mg 01/09/25 21:09 Morphine Sulfate (*Crx) 2 Mg/Ml Inj IV PUSH Q2H PRN Pain Rated 7-10 Mupirocin 1 applic 01/10/25 11:53 01/10/25 12:25 Mupirocin 2% Oint 22 Gm Tube TOPICAL 1 applic BID PRN Administration dry nasal passages Pantoprazole Sodium 40 mg 01/10/25 09:00 01/11/25 09:42 Pantoprazole 40 Mg Tablet PO 40 mg QAM DAVIAN Administration Polyethylene Glycol 17 gm 01/10/25 11:55 01/10/25 12:24 Polyethylene Glycol 3350 17 Gm Powd.Pack PO 17 gm QAM PRN Administration Constipation Prednisone 40 mg 01/11/25 08:00 01/11/25 09:42 Prednisone 20 Mg Tablet PO 40 mg DAILY@0800 DAVIAN Administration Roflumilast 500 mcg 01/10/25 09:00 01/11/25 09:42 Roflumilast 500 Mcg Tablet BY MOUTH 500 mcg DAILY DAVIAN Administration Radiology Results: ITS Impressions Chest X-Ray 01/09/25 17:36 IMPRESSION: Significant emphysematous change, with possibly a small right-sided pleural effusion, an interval change from prior.
[2025-01-11] MEDS: FLUTICASONE PROPIONATE 0.05% NA SPR 16 GM BTL (*BKC) 1 SPRAY NASAL (11:57)
--- NOTE | 2025-01-11 13:30 | P.PNIM_ITS ---
Progress Note: A&P Assessment and Plan (1) Acute exacerbation of chronic obstructive pulmonary disease (COPD): Code(s): J44.1 - Chronic obstructive pulmonary disease with (acute) exacerbation Status: Acute (2) Acute on chronic hypoxic respiratory failure: Code(s): J96.21 - Acute and chronic respiratory failure with hypoxia Status: Acute (3) Anxiety: Code(s): F41.9 - Anxiety disorder, unspecified Status: Acute Plan Patient has COPD exacerbation cannot rule out completely underlying respiratory tract infection given his which is diagnosed with pneumonia. Patient been started on scheduled IV steroids. Will hold the patient's chronic home p.o. st eroids. Will continue scheduled nebulizer treatment. Empiric antibiotic therapy with Rocephin and azithromycin. PUlm following he is to have PFTs with Dr. Hummel in 4 days. Currently on 4l, wean if able Will continue home mucolytic and cough suppressant medications. Will continue home anxiety medications- but will increase dose for buspar to 10 mg Severe protein calorie malnutrition--patient has had a 14 kg weight loss and a little over a month. He reports a good appetite but is still continued to lose weight. He had had a prior weight loss of 3 kg between September in November. Time Spent With Patient Time with patient: 25 - 35 minutes Subjective Date/time seen: 01/11/25 13:30 Interval history: 64-year-old male with pmh/of end-stage COPD on chronic home O2 of 3-4 L, essential hypertension, chronic pain, GERD and anxiety who presented to the ER with shortness of breath and chest tightness. Pulm consulted-awaiting recommendations. Pt is wearing [address] per [place] now. DR Villalobos saw his this morning, pt's sat 100% but refused to have his o2 decreased. Pt is breathing pretty much the same, gets sob with any exertion. Review of Systems Review of Systems: 12 systems were reviewed with pertinent positives and negatives per HPI. Except as documented in the HPI, all other systems were reviewed and are negative. Exam Narrative: Weight 76.9 BMI 25 Const: General: comfortable Other: Well-developed well-nourished, sitting on the side of the bed, appears stated age HENMT: Other: Nasal cannula in place, mucous membranes are tacky, no oral pharyngeal erythema, nasal cannula in place with pursed lip breathing Eyes: Other: Pupils are equal and reactive, no scleral icterus, no conjunctival pallor Neck: Other: No JVD, normal neck circumference Resp: Auscultation: diminished lung sounds Other: Markedly decreased breath sounds posteriorly, anterior end-expiratory wheezing with click from bronchial valve Cardio: Rate: tachycardic Rhythm: regular rhythm Other: Regular rate, regular rhythm, 2+ bilateral radial pedal pulses GI: Other: Soft, nontender, positive bowel sounds Skin: General skin exam: normal color Other: No jaundice, no pallor Neuro: Other: Alert oriented, speech is clear, no facial asymmetry, no localizing neurologic deficits noted during the course of conversation Extrem: Other: No cyanosis, no edema, 5/5 strength bilateral upper and lower extremities Psych: Other: Appropriate mood and affect, pleasant and cooperative, fair judgment and insight Objective Data Vital Signs Vital Signs: Vital Signs - 24 hr 01/10/25 13:35 01/10/25 15:26 01/10/25 16:00 Temperature 98.3 F Pulse Rate 76 100 92 Respiratory Rate 20 18 Blood Pressure 137/80 Pulse Oximetry 98 Oxygen Delivery Oxygen Flow Rate 01/10/25 20:00 01/10/25 20:02 01/10/25 20:07 Temperature 96.4 F L Pulse Rate 91 112 H Respiratory Rate 20 Blood Pressure 138/87 Pulse Oximetry 98 91 Oxygen Delivery Nasal Cannula Oxygen Flow Rate 4 01/10/25 20:07 01/10/25 20:20 01/10/25 20:25 Temperature Pulse Rate 91 99 Respiratory Rate 24 H 24 H 24 H Blood Pressure Pulse Oximetry 91 Oxygen Delivery Nasal Cannula Oxygen Flow Rate 4 01/11/25 00:02 01/11/25 02:29 01/11/25 02:43 Temperature Pulse Rate 103 H 91 88 Respiratory Rate 22 H 22 H Blood Pressure Pulse Oximetry Oxygen Delivery Oxygen Flow Rate 01/11/25 04:02 01/11/25 04:05 01/11/25 07:50 Temperature 97.3 F L Pulse Rate 126 H 108 H Respiratory Rate 20 Blood Pressure 153/74 H Pulse Oximetry 99 98 Oxygen Delivery Nasal Cannula Oxygen Flow Rate 4 01/11/25 07:50 01/11/25 08:00 01/11/25 08:00 Temperature Pulse Rate 95 117 H 107 H Respiratory Rate 24 H Blood Pressure Pulse Oximetry 100 Oxygen Delivery Nasal Cannula Oxygen Flow Rate 3 01/11/25 08:03 01/11/25 12:00 Temperature Pulse Rate 89 124 H Respiratory Rate 24 H Blood Pressure Pulse Oximetry Oxygen Delivery Oxygen Flow Rate Intake/Output Intake/Output: Intake & Output 01/08/25 01/09/25 01/10/25 01/11/25 23:59 23:59 23:59 23:59 Intake Total 1350 340 608 Output Total 1100 300 Balance 1350 -760 308 Meds/Results Medications: Active Medications Generic Name Dose Route Start Last Admin Trade Name Freq PRN Reason Stop Dose Admin Acetaminophen 650 mg 01/09/25 21:09 01/10/25 21:34 Acetaminophen 325 Mg Tablet PO 650 mg Q4H PRN Administration Mild Pain (1-3) or Fever Hydrocodone Bitart/Acetaminophen 1 tab 01/10/25 00:39 01/11/25 04:15 Hydrocodone/Acetaminophen (*Crx) 5-325 Mg Tablet PO 1 tab Q6H PRN Administration Pain 4-6 Aspirin 81 mg 01/10/25 08:00 01/11/25 09:42 Aspirin 81 Mg Chewable Tablet PO 81 mg DAILY@0800 DAVIAN Administration Benzonatate 200 mg 01/10/25 00:52 01/11/25 09:46 Benzonatate 100 Mg Capsule PO 200 mg TID PRN Administration cough Buspirone HCl 10 mg 01/12/25 09:00 Buspirone Hcl 5 Mg Tablet PO DAILY DAVIAN Dextrose 12.5 gm 01/09/25 21:09 Dextrose 50% 25 Gm/50 Ml Syringe IV PUSH PRN PRN Hypoglycemia Protocol Enoxaparin Sodium 40 mg 01/10/25 12:45 01/11/25 09:40 Enoxaparin 40 Mg/0.4 Ml Syringe SUB-Q 40 mg DAILY DAVIAN Administration Fluticasone Propionate 1 spray 01/10/25 00:40 01/11/25 11:57 Fluticasone Propionate 0.05% Na Spr 16 Gm Btl (*Bkc) NASAL 1 spray BID PRN Administration ALLERGIES Glucagon 1 mg 01/09/25 21:09 Glucagon For Inj 1 Mg Vial IM PRN PRN Hypoglycemia Protocol Glucose 15 gm 01/09/25 21:09 Glucose Oral Gel 15 Gm Of Glucse In 37.5 Gm Tube PO PRN PRN Hypoglycemia Protocol Guaifenesin 1,200 mg 01/10/25 09:00 01/11/25 09:42 Guaifenesin 12 Hr 600 Mg Tabcr PO 1,200 mg Q12HR DAVIAN Administration Hydroxyzine HCl 25 mg 01/10/25 00:39 01/11/25 09:46 Hydroxyzine Hcl 25 Mg Tablet PO 25 mg TID PRN Administration anxiety Ceftriaxone Sodium 1 gm in 50 mls @ 100 mls/hr 01/10/25 21:00 01/10/25 21:34 Rocephin 1 Gm/Ns 50 Ml IVPB 100 mls/hr Q24H DAVIAN Administration Azithromycin 500 mg in 250 mls @ 250 mls/hr 01/10/25 20:00 01/10/25 20:27 Zithromax IVPB 250 mls/hr Q24H DAVIAN Administration Dextrose 1,000 mls @ 100 mls/hr 01/09/25 21:09 Dextrose 5% 1,000 Ml IVPB PRN PRN Hypoglycemia Protocol Ipratropium [place] 0.5 mg 01/10/25 02:00 01/11/25 12:42 Ipratropium Br 0.02% Inh Soln 0.5 Mg/2.5 Ml Vial INHALATION Not Given Q6HRT DAVIAN Latanoprost 1 drop 01/10/25 21:00 01/10/25 20:28 Latanoprost 0.005% Op Soln 2.5 Ml Btl EACH EYE 1 drop HS DAVAIN Administration Levalbuterol HCl 0.63 mg 01/10/25 02:00 01/11/25 12:42 Levalbuterol Neb 1.25 Mg/3 Ml INHALATION Not Given Q6HRT DAVIAN Melatonin 10 mg 01/10/25 21:00 01/10/25 20:28 Melatonin 5 Mg Tablet PO 10 mg HS DAVIAN Administration Melatonin 5 mg 01/10/25 11:53 Melatonin 5 Mg Tablet PO HS PRN sleep Morphine Sulfate 2 mg 01/09/25 21:09 Morphine Sulfate (*Crx) 2 Mg/Ml Inj IV PUSH Q2H PRN Pain Rated 7-10 Mupirocin 1 applic 01/10/25 11:53 01/10/25 12:25 Mupirocin 2% Oint 22 Gm Tube TOPICAL 1 applic BID PRN Administration dry nasal passages Pantoprazole Sodium 40 mg 01/10/25 09:00 01/11/25 09:42 Pantoprazole 40 Mg Tablet PO 40 mg QAM DAVIAN Administration Polyethylene Glycol 17 gm 01/10/25 11:55 01/10/25 12:24 Polyethylene Glycol 3350 17 Gm Powd.Pack PO 17 gm QAM PRN Administration Constipation Prednisone 40 mg 01/11/25 08:00 01/11/25 09:42 Prednisone 20 Mg Tablet PO 40 mg DAILY@0800 DAVIAN Administration Roflumilast 500 mcg 01/10/25 09:00 01/11/25 09:42 Roflumilast 500 Mcg Tablet BY MOUTH 500 mcg DAILY DAVIAN Administration Radiology Results: ITS Impressions Chest X-Ray 01/09/25 17:36 IMPRESSION: Significant emphysematous change, with possibly a small right-sided pleural effusion, an interval change from prior. Quality VTE Prophylaxis VTE prophylaxis: pharmacologic ordered (Lovenox 40 mg subQ daily.)
[2025-01-11] MEDS: MUPIROCIN 2% OINT 22 GM TUBE 1 APPLIC TOPICAL (18:20)
[2025-01-11] MEDS: MELATONIN 5 MG TABLET 10 MG PO (20:39)
[2025-01-11] MEDS: AZITHROMYCIN 500 MG/NS 250 ML 500 MG/250 ML BAG 250 MG IVPB (20:39)
[2025-01-11] MEDS: LATANOPROST 0.005% OP SOLN 2.5 ML BTL 1 DROP EACH EYE (20:39)
[2025-01-12] VITALS (16 sets, daily range): BP systolic 115–129; BP diastolic 80–89; PULSE 84–130; RESP 18–28; TEMP 36.4–37; O2SAT 97–100
[2025-01-12] MEDS: IPRATROPIUM BR 0.02% INH SOLN 0.5 MG/2.5 ML VIAL INHALATION ×4 (02:00→20:34)
[2025-01-12] MEDS: LEVALBUTEROL NEB 1.25 MG/3 ML 0.63 MG INHALATION ×4 (02:00→20:34)
[2025-01-12] MEDS: HYDROcodone/acetaminophen (*CRX) 5-325 MG TABLET 1 TAB PO ×3 (02:40→18:35)
[2025-01-12] MEDS: predniSONE 20 MG TABLET 40 MG PO (08:23)
[2025-01-12] MEDS: hydrOXYzine HCL 25 MG TABLET PO ×2 (08:23→17:27)
[2025-01-12] MEDS: ROFLUMILAST 500 MCG TABLET BY MOUTH (08:23)
[2025-01-12] MEDS: guaiFENesin 12 HR 600 MG TABCR 1200 MG PO ×2 (08:23→21:01)
[2025-01-12] MEDS: busPIRone HCL 5 MG TABLET 10 MG PO (08:23)
[2025-01-12] MEDS: ASPIRIN 81 MG CHEWABLE TABLET PO (08:23)
[2025-01-12] MEDS: ENOXAPARIN 40 MG/0.4 ML SYRINGE SUB-Q (08:24)
[2025-01-12] MEDS: PANTOPRAZOLE 40 MG TABLET PO (08:24)
--- NOTE | 2025-01-12 08:46 | PM.PNPUL ---
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 He also has allergies, anxiety, and a history of frequent COPD exacerbations, managed with low-dose steroids, Daliresp, and Zithromax. Some past hospitalizations were due to anxiety rather than true COPD exacerbations. patient is on 3 L with rest, 3 L with activity and 3 L bleed in with his noninvasive ventilator at night. He reported primarily experiencing tachycardia and coughing up some phlegm. On physical exam today, there is no wheezing. I suspect his current hospitalization was triggered by mild bronchitis and anxiety. Normal BNP and D-dimers make conditions like congestive heart failure and embolism highly unlikely. His condition has already improved with the current management. Plan: Continue prescribed antibiotics, oxygen, DVT prophylaxis, and nebulized short-acting bronchodilators. I have switched the patient to oral steroids and anticipate discharge home within the next 48 hours. 01/11/2025: Patient tells me that his breathing is about the same. He states he has 15% back to his normal. He says his heart rate is better. Currently patient is on 4 L nasal cannula saturations 100%. He refuses to allow me to decrease to 3 L at this point because he says he is anxious when it gets turned down. tolerate his home astral with 3 L bleed in. Plan: Continue prednisone 40 mg a day, day 3 of steroids. Continue levalbuterol and ipratropium nebulizers q.6 hours. The patient has sinus tachycardia and will not increase his nebulizers at this time. Continue guaifenesin 1200 mg p.o. b.i.d.. Continue Daliresp 500 q.day. patient is on ceftriaxone and azithromycin both day 3 for possible Pneumonia-bronchitis and will continue today. Goal saturation 90-94%. Patient is currently refusing to decrease his oxygen as this makes his anxiety worse. I will check a respiratory pathogen panel looking for a viral infection causing this exacerbation. Regarding his noninvasive ventilator I will obtain a download from [email or web address]. I will obtain an overnight oximetry on his astral with 3 L bleed in. 4/1/25: Patient states he is slowly getting better. Today he says he is 25% back to normal. He still has wheezing, shortness of breath at rest and dyspnea on exertion with any activity. He is afebrile. His weight today is 83.5 and cumulative he is +1.7 L since admission. Patient had an overnight oximetry on his home astral with 3 L bleed in with recording duration of 5 hours and 33 minutes. Average saturation 96%. Low saturation 89%. Time with saturation less than or equal to 88% was 0 minutes. Oxygen desaturation index 0.4. Patient is currently on 4 L nasal cannula saturations 100%. Plan: Continue prednisone 40 mg a day, day 4 of steroids. Continue levalbuterol and ipratropium nebulizers q.6 hours. Continue guaifenesin 1200 mg p.o. b.i.d.. Continue Daliresp 500 q.day. Patient is on ceftriaxone and azithromycin both day 4 for possible Pneumonia-bronchitis and will continue today. Goal saturation 90-94%, patient is reluctant to turn his oxygen down and gets anxious when we talk about it. Respiratory pathogen panel pending. Regarding his noninvasive ventilation and 3 L bleed in his overnight oximetry is good. Will continue. Will follow with you. Subjective Date/time seen: 01/12/25 08:46 Interval history: 01/10/25: New pulmonary consult Chief complaint: COPD exacerbation, Acute on chronic resp failure Narrative: A 64-year-old male with end-stage COPD, FEV1 in the range of 30% predicted, is well known to Pulmonary Services from previous hospitalizations and outpatient follow-ups. He has chronic hypoxemic respiratory failure, requiring continuous home supplemental oxygen At 3 L nasal cannula at rest, with activity and 3 L at night with his home ventilator. His advanced COPD includes lung hyperinflation, and he has undergone [place] valve placement, resulting in the collapse of the right upper lobe to alleviate chronic shortness of breath. His maintenance regimen consists of bronchodilators, short-acting bronchodilators, and medications for frequent exacerbations, such as Zithromax, Daliresp, and prednisone 5 mg daily. He was last seen in the pulmonary clinic about six months ago. Over the past few years, he has attended pulmonary rehab with significant improvements in exercise capacity and weight loss. The patient presented with a one-day history of shortness of breath and tachycardia during activities. He reported that his home pulse oximetry showed stable oxygen levels (95-96%) but a pulse rate around 150 bpm. He had mild coughing with light yellow sputum, but no fever, chills, hemoptysis, chest pain, or lower extremity edema. His was recently diagnosed with pneumonia. In the ER, a chest X-ray suggested a small right pleural effusion, with no new infiltrates. ABGs showed no significant hypercapnic respiratory failure, 7.35/43/105 on 5 L nasal cannula, and BNP, D-dimers, and WBC were not elevated. He has been receiving antibiotics, IV steroids, and short-acting bronchodilators for a COPD exacerbation, with some improvement in his respiratory status over the past 24 hours. 01/11/2025: Patient tells me that his breathing is about the same. He states he has 15% back to his normal. He says his heart rate is better. Currently patient is on 4 L nasal cannula saturations 100%. He refuses to allow me to decrease to 3 L at this point because he says he is anxious when it gets turned down. tolerate his home astral with 3 L bleed in. 01/12/25: Patient states he is slowly getting better. Today he says he is 25% back to normal. He still has wheezing, shortness of breath at rest and dyspnea on exertion with any activity. He is afebrile. His weight today is 83.5 and cumulative he is +1.7 L since admission. Patient had an overnight oximetry on his home astral with 3 L bleed in with recording duration of 5 hours and 33 minutes. Average saturation 96%. Low saturation 89%. Time with saturation less than or equal to 88% was 0 minutes. Oxygen desaturation index 0.4. Patient is currently on 4 L nasal cannula saturations 100%. DATA: 12/12/24: Patient had an overnight oximetry on his home astral with 3 L bleed in with recording duration of 5 hours and 33 minutes. Average saturation 96%. Low saturation 89%. Time with saturation less than or equal to 88% was 0 minutes. 11/27/2024: EXAMINATION: CTA chest PE protocol DATE: 11/27/2024 12:10 INDICATION: Chest pain and dyspnea TECHNIQUE: Computed tomography (CT) pulmonary angiogram of the chest was performed with 100 mL Omnipaque-350 intravenous contrast. Additional 3D reconstructions utilizing coronal maximum intensity projection (MIP) were performed. Automated exposure control and iterative reconstruction technique were employed. The dose-length product was 832.10 mGy-cm. COMPARISON: 02/19/2024 and 02/17/2023 FINDINGS: No pulmonary embolism. Chronic right upper lobe collapse with endobronchial valves in the right upper lobe are segmental bronchi. Chronic mild linear discoid atelectasis/scarring in the bilateral lower lobes, right greater than left. No pneumonia, pulmonary edema, pleural effusion or pneumothorax. Heart size is normal. Atherosclerotic coronary artery calcification is. No pericardial effusion. Thoracic aorta is normal in caliber with no dissection. Multinodular goiter. No pathologically enlarged thoracic lymphadenopathy. A couple 2 mm nonobstructing stones at an upper pole calyx of the right kidney. Mild thoracic spondylosis. IMPRESSION: 1. No pulmonary embolism or other acute cardiopulmonary disease. 2. Moderate emphysema with endobronchial valves in the right upper lobar bronchi with chronic collapse of the right upper lobe. 3. Multinodular goiter. 4. Nonobstructing right nephrolithiasis. LDCT 02/19/24 - chronic complete right upper lobe atelectasis with endobronchial valves present. Moderate emphysema present. There is linear scarring right lower lobe. Chest CTA 02/17/23 - No pulmonary embolus. Moderate emphysema. Chronic right upper lobe collapse with endobronchial valves. Chest CT 11/25/22 - Minimal left basilar atelectasis. Persistent right upper lobe collapse. Endobronchial devices in right upper lobe bronchi. Chest CTA 11/20/22 - No evidence of pulmonary embolus, aortic dissection, or aortic aneurysm. Chronic complete right upper lobe collapse, as seen on prior exam. Minimal emphysema. PFT @ [place] 01/16/19 very severe obstructive abnormality without significant improvement after bronchodilator. Hyperinflation and air trapping noted. DLCO is severely decreased. FEV1 0.74L, 30%. 7/28/22 Echo: EF 55-60%, grade I diastolic dysfunction (E/e' 9). No pulmonary hypertension, estimated pulmonary arterial systolic pressure is 26 mmHg. Review of Systems Review of Systems: All systems reviewed & are unremarkable except as noted in HPI and below (HPI and below) Constitutional: Constitutional: Reports no additional constitutional complaints Eyes: Eyes: Reports no additional eye complaints ENT: Reports system reviewed and no additional complaints, except as documented Cardiovascular: Cardiovascular: Reports no additional cardiovascular complaints Respiratory: Respiratory: Reports no additional respiratory complaints Gastrointestinal: Gastrointestinal: Reports no additional gastrointestinal complaints Musculoskeletal: Musculoskeletal: Reports no additional musculoskeletal complaints Neurologic: Reports system reviewed and no additional complaints, except as documented Psychiatric: Psychiatric: Reports no additional psychiatric complaints Endocrine: Endocrine: Reports no additional endocrine complaints Hematologic/Lymphatic: Hematologic/Lymphatic: Reports no additional hematologic/lymphatic complaints Allergic/Immunologic: Allergic/Immunologic: Reports no additional allergic/immunologic complaints Exam Narrative: GENERAL APPEARANCE: Well developed, well nourished, alert and cooperative, who appears to be in mild respiratory distress while on supplemental oxygen. SKIN: Inspection of the skin reveals no rashes, ulcerations or petechiae. HEENT: Sclerae anicteric and conjunctivae pink and moist. Extraocular movements were intact and pupils were equal, round. NECK: Supple. There was no thyroid enlargement, and no tenderness, or masses were felt. CHEST: Normal AP diameter and normal contour without any kyphoscoliosis. LUNGS: Auscultation of the lungs revealed distant breath sounds, no wheezing CARDIAC: Tachycardia. There was a regular rate and rhythm without any murmurs, gallops, rubs. ABDOMEN: Soft and nontender with normal bowel sounds. There was no organomegaly. LYMPH NODES: No lymphadenopathy was appreciated in the neck. EXTREMITIES: No cyanosis, clubbing or edema. NEUROLOGIC: Alert and oriented x 3. Normal affect. Const: General: cooperative, healthy appearing and comfortable Orientation/consciousness: oriented to person, oriented to place and oriented to time HENMT: Head: normal to inspection Ears: hearing grossly normal bilaterally Eyes: General: appearance normal, both eyes and all related structures Neck: Neck: normal visual inspection Chest: Chest palpation & inspection: normal inspection of the chest Resp: Effort & Inspection: normal respiratory effort and able to speak in complete sentences Auscultation: no crackles, no rales, no rhonchi, wheezes and lung sounds not diminished Other: Bilateral expiratory wheezes Cardio: Jugular venous distension: no JVD GI: Inspection: normal to inspection Skin: General skin exam: normal color Neuro: General: oriented to person, oriented to place and oriented to time Extrem: General: normal to inspection Psych: Appearance: grossly normal Objective Data Vital Signs Vital Signs: Vital Signs - 24 hr 01/11/25 12:00 01/11/25 14:00 01/11/25 16:00 Temperature 36.8 C Pulse Rate 124 H 113 H 97 Respiratory Rate 22 H Blood Pressure 140/97 H Pulse Oximetry 100 Oxygen Delivery Oxygen Flow Rate 01/11/25 16:00 01/11/25 19:30 01/11/25 20:02 Temperature 36.5 C Pulse Rate 92 108 H 97 Respiratory Rate 24 H 26 H Blood Pressure 146/93 H Pulse Oximetry 100 Oxygen Delivery Oxygen Flow Rate 01/11/25 20:12 01/11/25 20:15 01/11/25 20:32 Temperature Pulse Rate 115 H 115 H Respiratory Rate 22 H 21 H Blood Pressure Pulse Oximetry 100 Oxygen Delivery Nasal Cannula Oxygen Flow Rate 4 01/11/25 20:40 01/12/25 00:01 01/12/25 02:02 Temperature Pulse Rate 85 104 H Respiratory Rate 20 Blood Pressure Pulse Oximetry 96 Oxygen Delivery Nasal Cannula Oxygen Flow Rate 4 01/12/25 02:20 01/12/25 04:02 01/12/25 04:30 Temperature 37.0 C Pulse Rate 106 H 84 88 Respiratory Rate 20 18 Blood Pressure 115/80 Pulse Oximetry 100 Oxygen Delivery Oxygen Flow Rate 01/12/25 07:57 01/12/25 07:57 01/12/25 08:34 Temperature Pulse Rate 101 H 107 H Respiratory Rate 20 20 Blood Pressure Pulse Oximetry 97 Oxygen Delivery Nasal Cannula Oxygen Flow Rate 4 Intake/Output Intake/Output: Intake & Output 01/09/25 01/10/25 01/11/25 01/12/25 23:59 23:59 23:59 23:59 Intake Total 3793 860 5052 350 Output Total 1100 300 750 Balance 1350 -460 1288 -400 Meds/Results Medications: Active Medications Generic Name Dose Route Start Last Admin Trade Name Freq PRN Reason Stop Dose Admin Acetaminophen 650 mg 01/09/25 21:09 01/10/25 21:34 Acetaminophen 325 Mg Tablet PO 650 mg Q4H PRN Administration Mild Pain (1-3) or Fever Hydrocodone Bitart/Acetaminophen 1 tab 01/10/25 00:39 01/12/25 02:40 Hydrocodone/Acetaminophen (*Crx) 5-325 Mg Tablet PO 1 tab Q6H PRN Administration Pain 4-6 Aspirin 81 mg 01/10/25 08:00 01/12/25 08:23 Aspirin 81 Mg Chewable Tablet PO 81 mg DAILY@0800 DAVIAN Administration Benzonatate 200 mg 01/10/25 00:52 01/11/25 09:46 Benzonatate 100 Mg Capsule PO 200 mg TID PRN Administration cough Buspirone HCl 10 mg 01/12/25 09:00 01/12/25 08:23 Buspirone Hcl 5 Mg Tablet PO 10 mg DAILY DAVIAN Administration Dextrose 12.5 gm 01/09/25 21:09 Dextrose 50% 25 Gm/50 Ml Syringe IV PUSH PRN PRN Hypoglycemia Protocol Enoxaparin Sodium 40 mg 01/10/25 12:45 01/12/25 08:24 Enoxaparin 40 Mg/0.4 Ml Syringe SUB-Q 40 mg DAILY DAVIAN Administration Fluticasone Propionate 1 spray 01/10/25 00:40 01/11/25 11:57 Fluticasone Propionate 0.05% Na Spr 16 Gm Btl (*Bkc) NASAL 1 spray BID PRN Administration ALLERGIES Glucagon 1 mg 01/09/25 21:09 Glucagon For Inj 1 Mg Vial IM PRN PRN Hypoglycemia Protocol Glucose 15 gm 01/09/25 21:09 Glucose Oral Gel 15 Gm Of Glucse In 37.5 Gm Tube PO PRN PRN Hypoglycemia Protocol Guaifenesin 1,200 mg 01/10/25 09:00 01/12/25 08:23 Guaifenesin 12 Hr 600 Mg Tabcr PO 1,200 mg Q12HR DAVIAN Administration Hydroxyzine HCl 25 mg 01/10/25 00:39 01/12/25 08:23 Hydroxyzine Hcl 25 Mg Tablet PO 25 mg TID PRN Administration anxiety Ceftriaxone Sodium 1 gm in 50 mls @ 100 mls/hr 01/10/25 21:00 01/11/25 21:39 Rocephin 1 Gm/Ns 50 Ml IVPB 100 mls/hr Q24H DAVIAN Administration Azithromycin 500 mg in 250 mls @ 250 mls/hr 01/10/25 20:00 01/11/25 20:39 Zithromax IVPB 250 mls/hr Q24H DAVIAN Administration Dextrose 1,000 mls @ 100 mls/hr 01/09/25 21:09 Dextrose 5% 1,000 Ml IVPB PRN PRN Hypoglycemia Protocol Ipratropium [place] 0.5 mg 01/10/25 02:00 01/12/25 07:52 Ipratropium Br 0.02% Inh Soln 0.5 Mg/2.5 Ml Vial INHALATION 0.5 mg Q6HRT DAVIAN Administration Latanoprost 1 drop 01/10/25 21:00 01/11/25 20:39 Latanoprost 0.005% Op Soln 2.5 Ml Btl EACH EYE 1 drop HS DAVIAN Administration Levalbuterol HCl 0.63 mg 01/10/25 02:00 01/12/25 07:52 Levalbuterol Neb 1.25 Mg/3 Ml INHALATION 0.63 mg Q6HRT DAVIAN Administration Melatonin 10 mg 01/10/25 21:00 01/11/25 20:39 Melatonin 5 Mg Tablet PO 10 mg HS DAVIAN Administration Melatonin 5 mg 01/10/25 11:53 Melatonin 5 Mg Tablet PO HS PRN sleep Morphine Sulfate 2 mg 01/09/25 21:09 Morphine Sulfate (*Crx) 2 Mg/Ml Inj IV PUSH Q2H PRN Pain Rated 7-10 Mupirocin 1 applic 01/10/25 11:53 01/11/25 18:20 Mupirocin 2% Oint 22 Gm Tube TOPICAL 1 applic BID PRN Administration dry nasal passages Pantoprazole Sodium 40 mg 01/10/25 09:00 01/12/25 08:24 Pantoprazole 40 Mg Tablet PO 40 mg QAM DAVIAN Administration Polyethylene Glycol 17 gm 01/10/25 11:55 01/10/25 12:24 Polyethylene Glycol 3350 17 Gm Powd.Pack PO 17 gm QAM PRN Administration Constipation Prednisone 40 mg 01/11/25 08:00 01/12/25 08:23 Prednisone 20 Mg Tablet PO 40 mg DAILY@0800 DAVIAN Administration Roflumilast 500 mcg 01/10/25 09:00 01/12/25 08:23 Roflumilast 500 Mcg Tablet BY MOUTH 500 mcg DAILY DAVIAN Administration Radiology Results: ITS Impressions Chest X-Ray 01/09/25 17:36 IMPRESSION: Significant emphysematous change, with possibly a small right-sided pleural effusion, an interval change from prior.
--- NOTE | 2025-01-12 12:28 | P.PNIM_ITS ---
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 * Pulmonology consulted * Chest x-ray showing significant emphysematous changes with possible small right sided pleural effusion * Continue breathing treatments q.6 hour * Continue Mucinex and Roflumilast * Full respiratory panel pending * Currently negative for influenza A and B, RSV, COVID * Continue prednisone 40 mg daily * Continue Tessalon Perles * Continue Azithromycin and Rocephin per pulmonology recommendation * Patient requesting pulmonary rehab at discharge (2) Acute on chronic hypoxic respiratory failure: Code(s): J96.21 - Acute and chronic respiratory failure with hypoxia Status: Acute Assessment and Plan: See above plan of care (3) Anxiety: Code(s): F41.9 - Anxiety disorder, unspecified Status: Acute Assessment and Plan: * BuSpar increased to 10 mg daily * Continue hydroxyzine Time Spent With Patient Time with patient: 25 - 35 minutes Subjective Date/time seen: 01/12/25 12:28 Interval history: Interval summary: This is a 64-year-old with a significant past medical history end-stage COPD on chronic home O2 3-4 L, hypertension, chronic pain, GERD, anxiety who presented to the hospital with chest tightness and shortness breath workup in hospital included a chest x-ray which showed significant emphysematous changes possible small right-sided pleural effusion. Initial labs showed a normal white blood cell count of 7.6, troponin negative x2, proBNP 22. Respiratory panel pending patient was negative for influenza a and B, RSV, COVID. EKG showed sinus tach with a rate of 123, QTC 434. Patient was started on Rocephin and azithromycin, Xopenex nebulized treatments q.6 hour, guaifenesin. His BuSpar was also in creased to 10 mg daily. Pulmonology consulted. He is currently on Rocephin and Azithromycin. Subjective: Patient reports shortness of breath at rest, inspiratory and expiratory wheezing, currently on 4L NC. Labs and imaging reviewed. Review of Systems Review of Systems: All systems reviewed & are unremarkable except as noted in HPI and below Exam Narrative: General: In no acute distress, well nourished Head: atraumatic, no encephalopathy Eyes: PERRLA, sclera clear ENT: moist mucous membranes, nasal passages clear Neck: supple, no JVD, no adenopathy, trachea midline Cardiac: Normal S1 and S2. No murmur, gallops or friction rubs, peripheral pulses intact. Respiratory: Inspiratory and expiratory wheezing, shortness of breath at rest, use of accessory muscles with respiratory distress, currently on 4L NC which is his baseline Gastrointestinal: soft, non-distended, non-tender, normoactive bowel sounds. : voiding without difficulty. Extremities: moves all extremities well, no edema Skin: clean, dry, intact. No wounds or lesions. Neuro: Alert and oriented x4, cranial nerves intact, no neuro deficits. Psych: normal mood, normal affect, interactive Objective Data Vital Signs Vital Signs: Vital Signs - 24 hr 01/11/25 14:00 01/11/25 16:00 01/11/25 16:00 Temperature 98.2 F Pulse Rate 113 H 97 92 Respiratory Rate 22 H 24 H Blood Pressure 140/97 H Pulse Oximetry 100 Oxygen Delivery Oxygen Flow Rate 01/11/25 19:30 01/11/25 20:02 01/11/25 20:12 Temperature 97.7 F Pulse Rate 108 H 97 115 H Respiratory Rate 26 H 22 H Blood Pressure 146/93 H Pulse Oximetry 100 Oxygen Delivery Oxygen Flow Rate 01/11/25 20:15 01/11/25 20:32 01/11/25 20:40 Temperature Pulse Rate 115 H Respiratory Rate 21 H Blood Pressure Pulse Oximetry 100 96 Oxygen Delivery Nasal Cannula Nasal Cannula Oxygen Flow Rate 4 4 01/12/25 00:01 01/12/25 02:02 01/12/25 02:20 Temperature Pulse Rate 85 104 H 106 H Respiratory Rate 20 20 Blood Pressure Pulse Oximetry Oxygen Delivery Oxygen Flow Rate 01/12/25 04:02 01/12/25 04:30 01/12/25 07:57 Temperature 98.6 F Pulse Rate 84 88 Respiratory Rate 18 Blood Pressure 115/80 Pulse Oximetry 100 97 Oxygen Delivery Nasal Cannula Oxygen Flow Rate 4 01/12/25 07:57 01/12/25 08:00 01/12/25 08:34 Temperature Pulse Rate 101 H 107 H Respiratory Rate 20 20 Blood Pressure Pulse Oximetry 97 Oxygen Delivery Nasal Cannula Oxygen Flow Rate 3 Intake/Output Intake/Output: Intake & Output 01/09/25 01/10/25 01/11/25 01/12/25 23:59 23:59 23:59 23:59 Intake Total 6091 102 4466 590 Output Total 1100 300 750 Balance 1350 -460 1288 -160 Meds/Results Medications: Active Medications Generic Name Dose Route Start Last Admin Trade Name Freq PRN Reason Stop Dose Admin Acetaminophen 650 mg 01/09/25 21:09 01/10/25 21:34 Acetaminophen 325 Mg Tablet PO 650 mg Q4H PRN Administration Mild Pain (1-3) or Fever Acetaminophen 650 mg 01/12/25 09:30 Acetaminophen 325 Mg Tablet PO Q4H PRN Headache Hydrocodone Bitart/Acetaminophen 1 tab 01/10/25 00:39 01/12/25 02:40 Hydrocodone/Acetaminophen (*Crx) 5-325 Mg Tablet PO 1 tab Q6H PRN Administration Pain 4-6 Aspirin 81 mg 01/10/25 08:00 01/12/25 08:23 Aspirin 81 Mg Chewable Tablet PO 81 mg DAILY@0800 DAVIAN Administration Benzonatate 200 mg 01/10/25 00:52 01/11/25 09:46 Benzonatate 100 Mg Capsule PO 200 mg TID PRN Administration cough Buspirone HCl 10 mg 01/12/25 09:00 01/12/25 08:23 Buspirone Hcl 5 Mg Tablet PO 10 mg DAILY DAVIAN Administration Dextrose 12.5 gm 01/09/25 21:09 Dextrose 50% 25 Gm/50 Ml Syringe IV PUSH PRN PRN Hypoglycemia Protocol Enoxaparin Sodium 40 mg 01/10/25 12:45 01/12/25 08:24 Enoxaparin 40 Mg/0.4 Ml Syringe SUB-Q 40 mg DAILY DAVIAN Administration Fluticasone Propionate 1 spray 01/10/25 00:40 01/11/25 11:57 Fluticasone Propionate 0.05% Na Spr 16 Gm Btl (*Bkc) NASAL 1 spray BID PRN Administration ALLERGIES Glucagon 1 mg 01/09/25 21:09 Glucagon For Inj 1 Mg Vial IM PRN PRN Hypoglycemia Protocol Glucose 15 gm 01/09/25 21:09 Glucose Oral Gel 15 Gm Of Glucse In 37.5 Gm Tube PO PRN PRN Hypoglycemia Protocol Guaifenesin 1,200 mg 01/10/25 09:00 01/12/25 08:23 Guaifenesin 12 Hr 600 Mg Tabcr PO 1,200 mg Q12HR DAVIAN Administration Hydroxyzine HCl 25 mg 01/10/25 00:39 01/12/25 08:23 Hydroxyzine Hcl 25 Mg Tablet PO 25 mg TID PRN Administration anxiety Ceftriaxone Sodium 1 gm in 50 mls @ 100 mls/hr 01/10/25 21:00 01/11/25 21:39 Rocephin 1 Gm/Ns 50 Ml IVPB 100 mls/hr Q24H DAVIAN Administration Azithromycin 500 mg in 250 mls @ 250 mls/hr 01/10/25 20:00 01/11/25 20:39 Zithromax IVPB 250 mls/hr Q24H DAVIAN Administration Dextrose 1,000 mls @ 100 mls/hr 01/09/25 21:09 Dextrose 5% 1,000 Ml IVPB PRN PRN Hypoglycemia Protocol Ipratropium [place] 0.5 mg 01/10/25 02:00 01/12/25 07:52 Ipratropium Br 0.02% Inh Soln 0.5 Mg/2.5 Ml Vial INHALATION 0.5 mg Q6HRT DAVIAN Administration Latanoprost 1 drop 01/10/25 21:00 01/11/25 20:39 Latanoprost 0.005% Op Soln 2.5 Ml Btl EACH EYE 1 drop HS DAVIAN Administration Levalbuterol HCl 0.63 mg 01/10/25 02:00 01/12/25 07:52 Levalbuterol Neb 1.25 Mg/3 Ml INHALATION 0.63 mg Q6HRT DAVIAN Administration Melatonin 10 mg 01/10/25 21:00 01/11/25 20:39 Melatonin 5 Mg Tablet PO 10 mg HS DAVIAN Administration Melatonin 5 mg 01/10/25 11:53 Melatonin 5 Mg Tablet PO HS PRN sleep Morphine Sulfate 2 mg 01/09/25 21:09 Morphine Sulfate (*Crx) 2 Mg/Ml Inj IV PUSH Q2H PRN Pain Rated 7-10 Mupirocin 1 applic 01/10/25 11:53 01/11/25 18:20 Mupirocin 2% Oint 22 Gm Tube TOPICAL 1 applic BID PRN Administration dry nasal passages Pantoprazole Sodium 40 mg 01/10/25 09:00 01/12/25 08:24 Pantoprazole 40 Mg Tablet PO 40 mg QAM DAVIAN Administration Polyethylene Glycol 17 gm 01/10/25 11:55 01/10/25 12:24 Polyethylene Glycol 3350 17 Gm Powd.Pack PO 17 gm QAM PRN Administration Constipation Prednisone 40 mg 01/11/25 08:00 01/12/25 08:23 Prednisone 20 Mg Tablet PO 40 mg DAILY@0800 DAVIAN Administration Roflumilast 500 mcg 01/10/25 09:00 01/12/25 08:23 Roflumilast 500 Mcg Tablet BY MOUTH 500 mcg DAILY DAVIAN Administration Radiology Results: ITS Impressions Chest X-Ray 01/09/25 17:36 IMPRESSION: Significant emphysematous change, with possibly a small right-sided pleural effusion, an interval change from prior. Quality VTE Prophylaxis VTE prophylaxis: pharmacologic ordered (Lovenox 40 mg subQ daily.)
[2025-01-12] MEDS: AZITHROMYCIN 250 MG TABLET 500 MG PO (17:27)
[2025-01-12] MEDS: MELATONIN 5 MG TABLET 10 MG PO (21:01)
[2025-01-12] MEDS: LATANOPROST 0.005% OP SOLN 2.5 ML BTL 1 DROP EACH EYE (21:01)
[2025-01-13] VITALS (14 sets, daily range): BP systolic 111–138; BP diastolic 78–85; PULSE 77–140; RESP 14–28; TEMP 36.2–36.3; O2SAT 95–99
[2025-01-13] MEDS: IPRATROPIUM BR 0.02% INH SOLN 0.5 MG/2.5 ML VIAL INHALATION ×4 (03:15→19:31)
[2025-01-13] MEDS: LEVALBUTEROL NEB 1.25 MG/3 ML 0.63 MG INHALATION ×4 (03:15→19:31)
[2025-01-13] MEDS: hydrOXYzine HCL 25 MG TABLET PO ×3 (04:09→15:29)
[2025-01-13 06:05] LABS: Basophils Percent Auto 0.4 % (0.2-1.2); Eosinophils Percent Auto 0.1 % (0-4.4); Hematocrit 42.1 % (42.0-52.0); Hemoglobin 13.4 g/dL (14.0-18.0); Immature Granulocyte Absolute 0.04 K/mm3 (0.00-0.031); Immature Granulocyte Percent A 0.5 % (0-0.5); Lymphocytes Percent Auto 26.2 % (18.3-44.2); Mean Corpuscular HGB Conc 31.8 g/dl (32-36); Mean Corpuscular Hemoglobin 30.9 pg (26-34); Mean Corpuscular Volume 97.2 fl (80-100); Mean Platelet Volume 10.3 fl (7.4-10.4); Monocytes Absolute Auto 0.9 K/mm3 (0.1-0.6); Neutrophils Absolute Auto 4.6 K/mm3 (1.3-6.7); Neutrophils Percent Auto 60.8 % (45.5-73.1); Platelet Count Result 345 k/mm3 (150-375); Red Blood Count 4.33 M/mm3 (4.6-6.20); Red Cell Distribution Width 13.2 % (11.5-14.5); White Blood Count 7.6 K/mm3 (4.5-10.0)
[2025-01-13 06:16] LABS: Alanine Aminotransferase 24 U/L (6-50); Albumin Level 4.1 g/dL (3.5-5.1); Alkaline Phosphatase 80 U/L (38-126); Anion Gap 9 mmol/L (4-12); Aspartate Amino Transferase 22 U/L (17-59); Bilirubin,Total 0.6 mg/dL (0.2-1.3); Blood Urea Nitrogen 18 mg/dL (9-20); Calcium 9.2 mg/dL (8.4-10.2); Carbon Dioxide 30 mmol/L (22-30); Chloride 101 mmol/L (98-107); Estimated CRCL calculation 93 ml/min; Estimated Glomerular Filt Rate > 60; Glucose 84 mg/dL (65-110); Potassium 3.4 mmol/L (3.4-5.0); Sodium 140 mmol/L (137-145)
[2025-01-13] MEDS: ROFLUMILAST 500 MCG TABLET BY MOUTH (08:14)
[2025-01-13] MEDS: predniSONE 20 MG TABLET 40 MG PO (08:14)
[2025-01-13] MEDS: busPIRone HCL 5 MG TABLET 10 MG PO (08:14)
[2025-01-13] MEDS: ASPIRIN 81 MG CHEWABLE TABLET PO (08:14)
[2025-01-13] MEDS: PANTOPRAZOLE 40 MG TABLET PO (08:14)
[2025-01-13] MEDS: guaiFENesin 12 HR 600 MG TABCR 1200 MG PO ×2 (08:14→20:21)
[2025-01-13] MEDS: ENOXAPARIN 40 MG/0.4 ML SYRINGE SUB-Q (08:16)
--- NOTE | 2025-01-13 09:04 | PM.PNPUL ---
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 He also has allergies, anxiety, and a history of frequent COPD exacerbations, managed with low-dose steroids, Daliresp, and Zithromax. Some past hospitalizations were due to anxiety rather than true COPD exacerbations. patient is on 3 L with rest, 3 L with activity and 3 L bleed in with his noninvasive ventilator at night. He reported primarily experiencing tachycardia and coughing up some phlegm. On physical exam today, there is no wheezing. I suspect his current hospitalization was triggered by mild bronchitis and anxiety. Normal BNP and D-dimers make conditions like congestive heart failure and embolism highly unlikely. His condition has already improved with the current management. Plan: Continue prescribed antibiotics, oxygen, DVT prophylaxis, and nebulized short-acting bronchodilators. I have switched the patient to oral steroids and anticipate discharge home within the next 48 hours. 01/11/2025: Patient tells me that his breathing is about the same. He states he has 15% back to his normal. He says his heart rate is better. Currently patient is on 4 L nasal cannula saturations 100%. He refuses to allow me to decrease to 3 L at this point because he says he is anxious when it gets turned down. tolerate his home astral with 3 L bleed in. Plan: Continue prednisone 40 mg a day, day 3 of steroids. Continue levalbuterol and ipratropium nebulizers q.6 hours. The patient has sinus tachycardia and will not increase his nebulizers at this time. Continue guaifenesin 1200 mg p.o. b.i.d.. Continue Daliresp 500 q.day. patient is on ceftriaxone and azithromycin both day 3 for possible Pneumonia-bronchitis and will continue today. Goal saturation 90-94%. Patient is currently refusing to decrease his oxygen as this makes his anxiety worse. I will check a respiratory pathogen panel looking for a viral infection causing this exacerbation. Regarding his noninvasive ventilator I will obtain a download from [employer]. I will obtain an overnight oximetry on his astral with 3 L bleed in. 4/1/25: Patient states he is slowly getting better. Today he says he is 25% back to normal. He still has wheezing, shortness of breath at rest and dyspnea on exertion with any activity. He is afebrile. His weight today is 83.5 and cumulative he is +1.7 L since admission. Patient had an overnight oximetry on his home astral with 3 L bleed in with recording duration of 5 hours and 33 minutes. Average saturation 96%. Low saturation 89%. Time with saturation less than or equal to 88% was 0 minutes. Oxygen desaturation index 0.4. Patient is currently on 4 L nasal cannula saturations 100%. Plan: Continue prednisone 40 mg a day, day 4 of steroids. Continue levalbuterol and ipratropium nebulizers q.6 hours. Continue guaifenesin 1200 mg p.o. b.i.d.. Continue Daliresp 500 q.day. Patient is on ceftriaxone and azithromycin both day 4 for possible Pneumonia-bronchitis and will continue today. Goal saturation 90-94%, patient is reluctant to turn his oxygen down and gets anxious when we talk about it. Respiratory pathogen panel pending. Regarding his noninvasive ventilation and 3 L bleed in his overnight oximetry is good. Will continue. 01/13/25: Patient told me he did well yesterday through the day told me he was 35-40% back to his normal. The patient puts on and off his home noninvasive ventilator and usually has his oxygen next to him. Today he took his home noninvasive ventilator off of him but his oxygen had been removed from his bedside and he went into respiratory distress with saturations of 68%. He is now on 4 L nasal cannula saturations 100% and improving back to his baseline. He still has dyspnea on exertion with minimal activity. White blood cell count 7.6, creatinine 0.69. Weight today is 82.5. Plan: Continue prednisone 40 a day, day 5 of steroids. Continue levalbuterol and ipratropium nebulizers q.6 hours, guaifenesin 1200 b.i.d., Daliresp 500 a day. Continue ceftriaxone and azithromycin both day 5 for possible bronchitis. Will discontinue azithromycin after today's dose. Will follow with you. Subjective Date/time seen: 01/13/25 09:04 Interval history: 01/10/25: New pulmonary consult Chief complaint: COPD exacerbation, Acute on chronic resp failure Narrative: A 64-year-old male with end-stage COPD, FEV1 in the range of 30% predicted, is well known to Pulmonary Services from previous hospitalizations and outpatient follow-ups. He has chronic hypoxemic respiratory failure, requiring continuous home supplemental oxygen At 3 L nasal cannula at rest, with activity and 3 L at night with his home ventilator. His advanced COPD includes lung hyperinflation, and he has undergone Culbertson valve placement, resulting in the collapse of the right upper lobe to alleviate chronic shortness of breath. His maintenance regimen consists of bronchodilators, short-acting bronchodilators, and medications for frequent exacerbations, such as Zithromax, Daliresp, and prednisone 5 mg daily. He was last seen in the pulmonary clinic about six months ago. Over the past few years, he has attended pulmonary rehab with significant improvements in exercise capacity and weight loss. The patient presented with a one-day history of shortness of breath and tachycardia during activities. He reported that his home pulse oximetry showed stable oxygen levels (95-96%) but a pulse rate around 150 bpm. He had mild coughing with light yellow sputum, but no fever, chills, hemoptysis, chest pain, or lower extremity edema. His was recently diagnosed with pneumonia. In the ER, a chest X-ray suggested a small right pleural effusion, with no new infiltrates. ABGs showed no significant hypercapnic respiratory failure, 7.35/43/105 on 5 L nasal cannula, and BNP, D-dimers, and WBC were not elevated. He has been receiving antibiotics, IV steroids, and short-acting bronchodilators for a COPD exacerbation, with some improvement in his respiratory status over the past 24 hours. 01/11/2025: Patient tells me that his breathing is about the same. He states he has 15% back to his normal. He says his heart rate is better. Currently patient is on 4 L nasal cannula saturations 100%. He refuses to allow me to decrease to 3 L at this point because he says he is anxious when it gets turned down. tolerate his home astral with 3 L bleed in. 01/12/25: Patient states he is slowly getting better. Today he says he is 25% back to normal. He still has wheezing, shortness of breath at rest and dyspnea on exertion with any activity. He is afebrile. His weight today is 83.5 and cumulative he is +1.7 L since admission. Patient had an overnight oximetry on his home astral with 3 L bleed in with recording duration of 5 hours and 33 minutes. Average saturation 96%. Low saturation 89%. Time with saturation less than or equal to 88% was 0 minutes. Oxygen desaturation index 0.4. Patient is currently on 4 L nasal cannula saturations 100%. 01/13/25: Patient told me he did well yesterday through the day told me he was 35-40% back to his normal. The patient puts on and off his home noninvasive ventilator and usually has his oxygen next to him. Today he took his home noninvasive ventilator off of him but his oxygen had been removed from his bedside and he went into respiratory distress with saturations of 68%. He is now on 4 L nasal cannula saturations 100% and improving back to his baseline. He still has dyspnea on exertion with minimal activity. White blood cell count 7.6, creatinine 0.69. Weight today is 82.5. DATA: 12/12/24: Patient had an overnight oximetry on his home astral with 3 L bleed in with recording duration of 5 hours and 33 minutes. Average saturation 96%. Low saturation 89%. Time with saturation less than or equal to 88% was 0 minutes. 11/27/2024: EXAMINATION: CTA chest PE protocol DATE: 11/27/2024 12:10 INDICATION: Chest pain and dyspnea TECHNIQUE: Computed tomography (CT) pulmonary angiogram of the chest was performed with 100 mL Omnipaque-350 intravenous contrast. Additional 3D reconstructions utilizing coronal maximum intensity projection (MIP) were performed. Automated exposure control and iterative reconstruction technique were employed. The dose-length product was 832.10 mGy-cm. COMPARISON: 02/19/2024 and 02/17/2023 FINDINGS: No pulmonary embolism. Chronic right upper lobe collapse with endobronchial valves in the right upper lobe are segmental bronchi. Chronic mild linear discoid atelectasis/scarring in the bilateral lower lobes, right greater than left. No pneumonia, pulmonary edema, pleural effusion or pneumothorax. Heart size is normal. Atherosclerotic coronary artery calcification is. No pericardial effusion. Thoracic aorta is normal in caliber with no dissection. Multinodular goiter. No pathologically enlarged thoracic lymphadenopathy. A couple 2 mm nonobstructing stones at an upper pole calyx of the right kidney. Mild thoracic spondylosis. IMPRESSION: 1. No pulmonary embolism or other acute cardiopulmonary disease. 2. Moderate emphysema with endobronchial valves in the right upper lobar bronchi with chronic collapse of the right upper lobe. 3. Multinodular goiter. 4. Nonobstructing right nephrolithiasis. LDCT 02/19/24 - chronic complete right upper lobe atelectasis with endobronchial valves present. Moderate emphysema present. There is linear scarring right lower lobe. Chest CTA 02/17/23 - No pulmonary embolus. Moderate emphysema. Chronic right upper lobe collapse with endobronchial valves. Chest CT 11/25/22 - Minimal left basilar atelectasis. Persistent right upper lobe collapse. Endobronchial devices in right upper lobe bronchi. Chest CTA 11/20/22 - No evidence of pulmonary embolus, aortic dissection, or aortic aneurysm. Chronic complete right upper lobe collapse, as seen on prior exam. Minimal emphysema. PFT @ [facility] 01/16/19 very severe obstructive abnormality without significant improvement after bronchodilator. Hyperinflation and air trapping noted. DLCO is severely decreased. FEV1 0.74L, 30%. 05/10/22 Echo: EF 55-60%, grade I diastolic dysfunction (E/e' 9). No pulmonary hypertension, estimated pulmonary arterial systolic pressure is 26 mmHg. Review of Systems Review of Systems: All systems reviewed & are unremarkable except as noted in HPI and below (HPI and below) Constitutional: Constitutional: Reports no additional constitutional complaints Eyes: Eyes: Reports no additional eye complaints ENT: Reports system reviewed and no additional complaints, except as documented Cardiovascular: Cardiovascular: Reports no additional cardiovascular complaints Respiratory: Respiratory: Reports no additional respiratory complaints Gastrointestinal: Gastrointestinal: Reports no additional gastrointestinal complaints Musculoskeletal: Musculoskeletal: Reports no additional musculoskeletal complaints Neurologic: Reports system reviewed and no additional complaints, except as documented Psychiatric: Psychiatric: Reports no additional psychiatric complaints Endocrine: Endocrine: Reports no additional endocrine complaints Hematologic/Lymphatic: Hematologic/Lymphatic: Reports no additional hematologic/lymphatic complaints Allergic/Immunologic: Allergic/Immunologic: Reports no additional allergic/immunologic complaints Exam Const: General: cooperative, healthy appearing and comfortable Orientation/consciousness: oriented to person, oriented to place and oriented to time HENMT: Head: normal to inspection Ears: hearing grossly normal bilaterally Eyes: General: appearance normal, both eyes and all related structures Neck: Neck: normal visual inspection Chest: Chest palpation & inspection: normal inspection of the chest Resp: Effort & Inspection: normal respiratory effort and able to speak in complete sentences Auscultation: no crackles, no rales, no rhonchi, wheezes and lung sounds not diminished Other: Bilateral expiratory wheezes Cardio: Jugular venous distension: no JVD GI: Inspection: normal to inspection Skin: General skin exam: normal color Neuro: General: oriented to person, oriented to place and oriented to time Extrem: General: normal to inspection Psych: Appearance: grossly normal Objective Data Vital Signs Vital Signs: Vital Signs - 24 hr 01/12/25 12:00 01/12/25 14:00 01/12/25 14:59 Temperature 36.6 C Pulse Rate 104 H 130 H Respiratory Rate 22 H Blood Pressure 126/89 Pulse Oximetry 99 99 Oxygen Delivery Nasal Cannula Oxygen Flow Rate 4 01/12/25 14:59 01/12/25 16:00 01/12/25 20:02 Temperature Pulse Rate 109 H 116 H 92 Respiratory Rate 24 H Blood Pressure Pulse Oximetry Oxygen Delivery Oxygen Flow Rate 01/12/25 20:46 01/12/25 20:46 01/12/25 21:00 Temperature Pulse Rate 113 H 113 H 108 H Respiratory Rate 28 H 28 H 20 Blood Pressure Pulse Oximetry 97 99 Oxygen Delivery Nasal Cannula Nasal Cannula Oxygen Flow Rate 4 3 01/12/25 21:03 01/13/25 00:02 01/13/25 03:15 Temperature 36.4 C Pulse Rate 108 H 83 107 H Respiratory Rate 20 20 Blood Pressure 129/82 Pulse Oximetry 99 Oxygen Delivery Oxygen Flow Rate 01/13/25 04:02 01/13/25 05:55 01/13/25 08:00 Temperature 36.3 C L Pulse Rate 115 H 77 130 H Respiratory Rate 14 28 H Blood Pressure 128/78 Pulse Oximetry 95 Oxygen Delivery Oxygen Flow Rate 01/13/25 08:17 01/13/25 08:19 Temperature Pulse Rate 111 H 111 H Respiratory Rate 22 H 22 H Blood Pressure Pulse Oximetry 98 Oxygen Delivery Nasal Cannula Oxygen Flow Rate 4 Intake/Output Intake/Output: Intake & Output 01/10/25 01/11/25 01/12/25 01/13/25 23:59 23:59 23:59 23:59 Intake Total 640 1638 1810 450 Output Total 1100 300 750 650 Balance -460 1338 1060 -200 Meds/Results Medications: Active Medications Generic Name Dose Route Start Last Admin Trade Name Freq PRN Reason Stop Dose Admin Acetaminophen 650 mg 01/09/25 21:09 01/10/25 21:34 Acetaminophen 325 Mg Tablet PO 650 mg Q4H PRN Administration Mild Pain (1-3) or Fever Acetaminophen 650 mg 01/12/25 09:30 Acetaminophen 325 Mg Tablet PO Q4H PRN Headache Hydrocodone Bitart/Acetaminophen 1 tab 01/10/25 00:39 01/12/25 18:35 Hydrocodone/Acetaminophen (*Crx) 5-325 Mg Tablet PO 1 tab Q6H PRN Administration Pain 4-6 Aspirin 81 mg 01/10/25 08:00 01/13/25 08:14 Aspirin 81 Mg Chewable Tablet PO 81 mg DAILY@0800 DAVIAN Administration Azithromycin 500 mg 01/12/25 18:00 01/12/25 17:27 Azithromycin 250 Mg Tablet PO 500 mg Q24H DAVIAN Administration Benzonatate 200 mg 01/10/25 00:52 01/11/25 09:46 Benzonatate 100 Mg Capsule PO 200 mg TID PRN Administration cough Buspirone HCl 10 mg 01/12/25 09:00 01/13/25 08:14 Buspirone Hcl 5 Mg Tablet PO 10 mg DAILY DAVIAN Administration Dextrose 12.5 gm 01/09/25 21:09 Dextrose 50% 25 Gm/50 Ml Syringe IV PUSH PRN PRN Hypoglycemia Protocol Enoxaparin Sodium 40 mg 01/10/25 12:45 01/13/25 08:16 Enoxaparin 40 Mg/0.4 Ml Syringe SUB-Q 40 mg DAILY DAVIAN Administration Fluticasone Propionate 1 spray 01/10/25 00:40 01/11/25 11:57 Fluticasone Propionate 0.05% Na Spr 16 Gm Btl (*Bkc) NASAL 1 spray BID PRN Administration ALLERGIES Glucagon 1 mg 01/09/25 21:09 Glucagon For Inj 1 Mg Vial IM PRN PRN Hypoglycemia Protocol Glucose 15 gm 01/09/25 21:09 Glucose Oral Gel 15 Gm Of Glucse In 37.5 Gm Tube PO PRN PRN Hypoglycemia Protocol Guaifenesin 1,200 mg 01/10/25 09:00 01/13/25 08:14 Guaifenesin 12 Hr 600 Mg Tabcr PO 1,200 mg Q12HR DAVIAN Administration Hydroxyzine HCl 25 mg 01/10/25 00:39 01/13/25 08:16 Hydroxyzine Hcl 25 Mg Tablet PO 25 mg TID PRN Administration anxiety Ceftriaxone Sodium 1 gm in 50 mls @ 100 mls/hr 01/10/25 21:00 01/12/25 21:01 Rocephin 1 Gm/Ns 50 Ml IVPB 100 mls/hr Q24H DAVIAN Administration Dextrose 1,000 mls @ 100 mls/hr 01/09/25 21:09 Dextrose 5% 1,000 Ml IVPB PRN PRN Hypoglycemia Protocol Ipratropium [place] 0.5 mg 01/10/25 02:00 01/13/25 08:00 Ipratropium Br 0.02% Inh Soln 0.5 Mg/2.5 Ml Vial INHALATION 0.5 mg Q6HRT DAVIAN Administration Latanoprost 1 drop 01/10/25 21:00 01/12/25 21:01 Latanoprost 0.005% Op Soln 2.5 Ml Btl EACH EYE 1 drop HS DAVIAN Administration Levalbuterol HCl 0.63 mg 01/10/25 02:00 01/13/25 08:00 Levalbuterol Neb 1.25 Mg/3 Ml INHALATION 0.63 mg Q6HRT DAVIAN Administration Melatonin 10 mg 01/10/25 21:00 01/12/25 21:01 Melatonin 5 Mg Tablet PO 10 mg HS DAVIAN Administration Melatonin 5 mg 01/10/25 11:53 Melatonin 5 Mg Tablet PO HS PRN sleep Morphine Sulfate 2 mg 01/09/25 21:09 Morphine Sulfate (*Crx) 2 Mg/Ml Inj IV PUSH Q2H PRN Pain Rated 7-10 Mupirocin 1 applic 01/10/25 11:53 01/11/25 18:20 Mupirocin 2% Oint 22 Gm Tube TOPICAL 1 applic BID PRN Administration dry nasal passages Pantoprazole Sodium 40 mg 01/10/25 09:00 01/13/25 08:14 Pantoprazole 40 Mg Tablet PO 40 mg QAM DAVIAN Administration Polyethylene Glycol 17 gm 01/10/25 11:55 01/10/25 12:24 Polyethylene Glycol 3350 17 Gm Powd.Pack PO 17 gm QAM PRN Administration Constipation Prednisone 40 mg 01/11/25 08:00 01/13/25 08:14 Prednisone 20 Mg Tablet PO 40 mg DAILY@0800 DAVIAN Administration Roflumilast 500 mcg 01/10/25 09:00 01/13/25 08:14 Roflumilast 500 Mcg Tablet BY MOUTH 500 mcg DAILY DAVIAN Administration Radiology Results: ITS Impressions Chest X-Ray 01/09/25 17:36 IMPRESSION: Significant emphysematous change, with possibly a small right-sided pleural effusion, an interval change from prior. Labs Labs: Laboratory Results - last 24 hr 01/13/25 05:43 WBC 7.6 RBC 4.33 L Hgb 13.4 L Hct 42.1 MCV 97.2 MCH 30.9 MCHC 31.8 L RDW 13.2 Plt Count 345 MPV 10.3 Immature Gran % (Auto) 0.5 Neut % (Auto) 60.8 Lymph % (Auto) 26.2 [place] % (Auto) 12.0 H Eos % (Auto) 0.1 Baso % (Auto) 0.4 Lymph # (Auto) 2.00 [place] # (Auto) 0.9 H Eos # (Auto) 0.0 Baso # (Auto) 0.0 Abs Immat Gran (auto) 0.04 H Absolute Neuts (auto) 4.6 Absolute Nucleated RBC 0.000 Nucleated RBC % 0.0 Sodium 140 Potassium 3.4 Chloride 101 Carbon Dioxide 30 Anion Gap 9 BUN 18 Creatinine 0.69 L Estim Creat Clear Calc 93 Estimated GFR > 60 Glucose 84 Calcium 9.2 Total Bilirubin 0.6 AST 22 ALT 24 Alkaline Phosphatase 80 Total Protein 7.0 Albumin 4.1
[2025-01-13] MEDS: ACETAMINOPHEN 325 MG TABLET 650 MG PO ×2 (09:08→20:21)
--- NOTE | 2025-01-13 12:02 | P.PNIM_ITS ---
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 * Pulmonology consulted * Chest x-ray showing significant emphysematous changes with possible small right sided pleural effusion * Continue breathing treatments q.6 hour * Continue Mucinex and Roflumilast * Full respiratory panel pending * Currently negative for influenza A and B, RSV, COVID * Continue prednisone 40 mg daily * Continue Tessalon Perles * Continue Azithromycin and Rocephin per pulmonology recommendation * Patient requesting pulmonary rehab at discharge 01/13 * continue Prednisone * Continue Azithromycin * Rocephin discontinued * Pulmonary following (2) Acute on chronic hypoxic respiratory failure: Code(s): J96.21 - Acute and chronic respiratory failure with hypoxia Status: Acute Assessment and Plan: See above plan of care (3) Anxiety: Code(s): F41.9 - Anxiety disorder, unspecified Status: Acute Assessment and Plan: * BuSpar increased to 10 mg daily * Continue hydroxyzine 01/13 * No change Time Spent With Patient Time with patient: 25 - 35 minutes Subjective Date/time seen: 01/13/25 12:02 Interval history: Interval summary: This is a 64-year-old with a significant past medical history end-stage COPD on chronic home O2 3-4 L, hypertension, chronic pain, GERD, anxiety who presented to the hospital with chest tightness and shortness breath workup in hospital included a chest x-ray which showed significant emphysematous changes possible small right-sided pleural effusion. Initial labs showed a normal white blood cell count of 7.6, troponin negative x2, proBNP 22. Respiratory panel pending patient was negative for influenza a and B, RSV, COVID. EKG showed sinus tach with a rate of 123, QTC 434. Patient was started on Rocephin and azithromycin, Xopenex nebulized treatments q.6 hour, guaifenesin. His BuSpar was also increased to 10 mg daily. Pulmonology consulted. He is currently on Rocephin and Azithromycin. Subjective: Patient still short of breath at rest. Can only say a few words before having to take a breath. He reports that he became anxious this morning as he took off his Cpap and could not find his nasal cannula. His breathing has been labored since that time. Review of Systems Review of Systems: 12 systems were reviewed with pertinent positives and negatives per HPI. Except as documented in the HPI, all other systems were reviewed and are negative. All systems reviewed & are unremarkable except as noted in HPI and below Exam Narrative: General: In no acute distress, well nourished Cardiac: Normal S1 and S2. No murmur, gallops or friction rubs, peripheral pulses intact. Respiratory: Inspiratory and expiratory wheezing-improved from yesterday, shortness of breath at rest, use of accessory muscles with respiratory distress,currently on 4L NC which is his baseline Gastrointestinal: soft, non-distended, non-tender, normoactive bowel sounds. : voiding without difficulty. Neuro: Alert and oriented x4 Objective Data Vital Signs Vital Signs: Vital Signs - 24 hr 01/12/25 14:00 01/12/25 14:59 01/12/25 14:59 Temperature 97.9 F Pulse Rate 130 H 109 H Respiratory Rate 22 H 24 H Blood Pressure 126/89 Pulse Oximetry 99 99 Oxygen Delivery Nasal Cannula Oxygen Flow Rate 4 01/12/25 16:00 01/12/25 20:02 01/12/25 20:46 Temperature Pulse Rate 116 H 92 113 H Respiratory Rate 28 H Blood Pressure Pulse Oximetry 97 Oxygen Delivery Nasal Cannula Oxygen Flow Rate 4 01/12/25 20:46 01/12/25 21:00 01/12/25 21:03 Temperature 97.6 F Pulse Rate 113 H 108 H 108 H Respiratory Rate 28 H 20 20 Blood Pressure 129/82 Pulse Oximetry 99 99 Oxygen Delivery Nasal Cannula Oxygen Flow Rate 3 01/13/25 00:02 01/13/25 03:15 01/13/25 04:02 Temperature Pulse Rate 83 107 H 115 H Respiratory Rate 20 Blood Pressure Pulse Oximetry Oxygen Delivery Oxygen Flow Rate 01/13/25 05:55 01/13/25 08:00 01/13/25 08:00 Temperature 97.3 F L Pulse Rate 77 130 H 140 H Respiratory Rate 14 28 H Blood Pressure 128/78 Pulse Oximetry 95 Oxygen Delivery Oxygen Flow Rate 01/13/25 08:00 01/13/25 08:17 01/13/25 08:19 Temperature Pulse Rate 111 H 111 H Respiratory Rate 22 H 22 H Blood Pressure Pulse Oximetry 98 98 Oxygen Delivery Nasal Cannula Nasal Cannula Oxygen Flow Rate 3 4 Intake/Output Intake/Output: Intake & Output 01/10/25 01/11/25 01/12/25 01/13/25 23:59 23:59 23:59 23:59 Intake Total 640 1638 1810 450 Output Total 1100 300 750 650 Balance -460 1338 1060 -200 Meds/Results Medications: Active Medications Generic Name Dose Route Start Last Admin Trade Name Freq PRN Reason Stop Dose Admin Acetaminophen 650 mg 01/09/25 21:09 01/13/25 09:08 Acetaminophen 325 Mg Tablet PO 650 mg Q4H PRN Administration Mild Pain (1-3) or Fever Acetaminophen 650 mg 01/12/25 09:30 Acetaminophen 325 Mg Tablet PO Q4H PRN Headache Hydrocodone Bitart/Acetaminophen 1 tab 01/10/25 00:39 01/12/25 18:35 Hydrocodone/Acetaminophen (*Crx) 5-325 Mg Tablet PO 1 tab Q6H PRN Administration Pain 4-6 Aspirin 81 mg 01/10/25 08:00 01/13/25 08:14 Aspirin 81 Mg Chewable Tablet PO 81 mg DAILY@0800 DAVIAN Administration Azithromycin 500 mg 01/12/25 18:00 01/12/25 17:27 Azithromycin 250 Mg Tablet PO 01/13/25 23:59 500 mg Q24H DAVIAN Administration Azithromycin 500 mg 01/15/25 09:00 Azithromycin 250 Mg Tablet PO [email or web address] DAVIAN Benzonatate 200 mg 01/10/25 00:52 01/11/25 09:46 Benzonatate 100 Mg Capsule PO 200 mg TID PRN Administration cough Buspirone HCl 10 mg 01/12/25 09:00 01/13/25 08:14 Buspirone Hcl 5 Mg Tablet PO 10 mg DAILY DAVIAN Administration Dextrose 12.5 gm 01/09/25 21:09 Dextrose 50% 25 Gm/50 Ml Syringe IV PUSH PRN PRN Hypoglycemia Protocol Enoxaparin Sodium 40 mg 01/10/25 12:45 01/13/25 08:16 Enoxaparin 40 Mg/0.4 Ml Syringe SUB-Q 40 mg DAILY DAVIAN Administration Fluticasone Propionate 1 spray 01/10/25 00:40 01/11/25 11:57 Fluticasone Propionate 0.05% Na Spr 16 Gm Btl (*Bkc) NASAL 1 spray BID PRN Administration ALLERGIES Glucagon 1 mg 01/09/25 21:09 Glucagon For Inj 1 Mg Vial IM PRN PRN Hypoglycemia Protocol Glucose 15 gm 01/09/25 21:09 Glucose Oral Gel 15 Gm Of Glucse In 37.5 Gm Tube PO PRN PRN Hypoglycemia Protocol Guaifenesin 1,200 mg 01/10/25 09:00 01/13/25 08:14 Guaifenesin 12 Hr 600 Mg Tabcr PO 1,200 mg Q12HR DAVIAN Administration Hydroxyzine HCl 25 mg 01/10/25 00:39 01/13/25 08:16 Hydroxyzine Hcl 25 Mg Tablet PO 25 mg TID PRN Administration anxiety Dextrose 1,000 mls @ 100 mls/hr 01/09/25 21:09 Dextrose 5% 1,000 Ml IVPB PRN PRN Hypoglycemia Protocol Ipratropium [place] 0.5 mg 01/10/25 02:00 01/13/25 08:00 Ipratropium Br 0.02% Inh Soln 0.5 Mg/2.5 Ml Vial INHALATION 0.5 mg Q6HRT DAVIAN Administration Latanoprost 1 drop 01/10/25 21:00 01/12/25 21:01 Latanoprost 0.005% Op Soln 2.5 Ml Btl EACH EYE 1 drop HS DAVIAN Administration Levalbuterol HCl 0.63 mg 01/10/25 02:00 01/13/25 08:00 Levalbuterol Neb 1.25 Mg/3 Ml INHALATION 0.63 mg Q6HRT DAVIAN Administration Melatonin 10 mg 01/10/25 21:00 01/12/25 21:01 Melatonin 5 Mg Tablet PO 10 mg HS DAVIAN Administration Melatonin 5 mg 01/10/25 11:53 Melatonin 5 Mg Tablet PO HS PRN sleep Morphine Sulfate 2 mg 01/09/25 21:09 Morphine Sulfate (*Crx) 2 Mg/Ml Inj IV PUSH Q2H PRN Pain Rated 7-10 Mupirocin 1 applic 01/10/25 11:53 01/11/25 18:20 Mupirocin 2% Oint 22 Gm Tube TOPICAL 1 applic BID PRN Administration dry nasal passages Pantoprazole Sodium 40 mg 01/10/25 09:00 01/13/25 08:14 Pantoprazole 40 Mg Tablet PO 40 mg QAM DAVIAN Administration Polyethylene Glycol 17 gm 01/10/25 11:55 01/10/25 12:24 Polyethylene Glycol 3350 17 Gm Powd.Pack PO 17 gm QAM PRN Administration Constipation Prednisone 40 mg 01/11/25 08:00 01/13/25 08:14 Prednisone 20 Mg Tablet PO 40 mg DAILY@0800 DAVIAN Administration Roflumilast 500 mcg 01/10/25 09:00 01/13/25 08:14 Roflumilast 500 Mcg Tablet BY MOUTH 500 mcg DAILY DAVIAN Administration Radiology Results: ITS Impressions Chest X-Ray 01/09/25 17:36 IMPRESSION: Significant emphysematous change, with possibly a small right-sided pleural effusion, an interval change from prior. Labs Labs: Laboratory Results - last 24 hr 01/13/25 05:43 WBC 7.6 RBC 4.33 L Hgb 13.4 L Hct 42.1 MCV 97.2 MCH 30.9 MCHC 31.8 L RDW 13.2 Plt Count 345 MPV 10.3 Immature Gran % (Auto) 0.5 Neut % (Auto) 60.8 Lymph % (Auto) 26.2 [place] % (Auto) 12.0 H Eos % (Auto) 0.1 Baso % (Auto) 0.4 Lymph # (Auto) 2.00 [place] # (Auto) 0.9 H Eos # (Auto) 0.0 Baso # (Auto) 0.0 Abs Immat Gran (auto) 0.04 H Absolute Neuts (auto) 4.6 Absolute Nucleated RBC 0.000 Nucleated RBC % 0.0 Sodium 140 Potassium 3.4 Chloride 101 Carbon Dioxide 30 Anion Gap 9 BUN 18 Creatinine 0.69 L Estim Creat Clear Calc 93 Estimated GFR > 60 Glucose 84 Calcium 9.2 Total Bilirubin 0.6 AST 22 ALT 24 Alkaline Phosphatase 80 Total Protein 7.0 Albumin 4.1 Quality VTE Prophylaxis VTE prophylaxis: pharmacologic ordered (Lovenox 40 mg subQ daily.)
[2025-01-13] MEDS: FLUTICASONE PROPIONATE 0.05% NA SPR 16 GM BTL (*BKC) 1 SPRAY NASAL (15:33)
[2025-01-13] MEDS: MUPIROCIN 2% OINT 22 GM TUBE 1 APPLIC TOPICAL (15:34)
[2025-01-13] MEDS: AZITHROMYCIN 250 MG TABLET 500 MG PO (17:02)
[2025-01-13] MEDS: MAG HYDROX/AL HYDROX/SIMETH 30 ML UDC PO (17:02)
[2025-01-13 18:33] LABS: Adenovirus DNA Not Detected (Not Detected); Chlamydophila pneumoniae Not Detected (Not Detected); Coronavirus 229E Not Detected (Not Detected); Coronavirus HKU1 Not Detected (Not Detected); Coronavirus NL63 Not Detected (Not Detected); Coronavirus OC43 Not Detected (Not Detected); Human Metapneumovirus Detected (Not Detected); Human Parainfluenza Virus 1 Not Detected (Not Detected); Human Parainfluenza Virus 2 Not Detected (Not Detected); Human Parainfluenza Virus 3 Not Detected (Not Detected); Human Parainfluenza Virus 4 Not Detected (Not Detected); Human RSV B Not Detected (Not Detected); Influenza A Not Detected (Not Detected); Influenza B Not Detected (Not Detected); Mycoplasma pneumoniae Not Detected (Not Detected); Rhinovirus/Enterovirus Not Detected (Not Detected)
[2025-01-13] MEDS: MELATONIN 5 MG TABLET 10 MG PO (20:21)
[2025-01-14] VITALS (19 sets, daily range): BP systolic 111–136; BP diastolic 69–94; PULSE 86–129; RESP 12–24; TEMP 35.9–36.3; O2SAT 93–100
[2025-01-14] MEDS: IPRATROPIUM BR 0.02% INH SOLN 0.5 MG/2.5 ML VIAL INHALATION ×5 (01:19→19:44)
[2025-01-14] MEDS: LEVALBUTEROL NEB 1.25 MG/3 ML 0.63 MG INHALATION ×5 (01:19→19:45)
[2025-01-14] MEDS: HYDROcodone/acetaminophen (*CRX) 5-325 MG TABLET 1 TAB PO ×3 (02:01→21:22)
[2025-01-14] MEDS: hydrOXYzine HCL 25 MG TABLET PO ×3 (02:01→21:21)
[2025-01-14 06:19] LABS: Basophils Percent Auto 0.2 % (0.2-1.2); Eosinophils Percent Auto 0.4 % (0-4.4); Hematocrit 43.4 % (42.0-52.0); Immature Granulocyte Absolute 0.05 K/mm3 (0.00-0.031); Immature Granulocyte Percent A 0.6 % (0-0.5); Lymphocytes Absolute Auto 2.03 K/mm3 (0.9-3.2); Lymphocytes Percent Auto 24.3 % (18.3-44.2); Mean Corpuscular HGB Conc 32.3 g/dl (32-36); Mean Corpuscular Hemoglobin 31.5 pg (26-34); Mean Corpuscular Volume 97.7 fl (80-100); Mean Platelet Volume 10.6 fl (7.4-10.4); Neutrophils Absolute Auto 5.2 K/mm3 (1.3-6.7); Neutrophils Percent Auto 62.5 % (45.5-73.1); Platelet Count Result 390 k/mm3 (150-375); Red Blood Count 4.44 M/mm3 (4.6-6.20); Red Cell Distribution Width 13.3 % (11.5-14.5); White Blood Count 8.4 K/mm3 (4.5-10.0)
[2025-01-14 06:33] LABS: Alanine Aminotransferase 24 U/L (6-50); Alkaline Phosphatase 68 U/L (38-126); Anion Gap 7 mmol/L (4-12); Aspartate Amino Transferase 26 U/L (17-59); Bilirubin,Total 0.5 mg/dL (0.2-1.3); Blood Urea Nitrogen 21 mg/dL (9-20); Calcium 9.3 mg/dL (8.4-10.2); Carbon Dioxide 35 mmol/L (22-30); Chloride 100 mmol/L (98-107); Estimated CRCL calculation 88 ml/min; Estimated Glomerular Filt Rate > 60; Glucose 76 mg/dL (65-110); Potassium 3.8 mmol/L (3.4-5.0); Sodium 142 mmol/L (137-145)
--- NOTE | 2025-01-14 08:20 | P.PNIM_ITS ---
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 Chest x-ray showing significant emphysematous changes with possible small right sided pleural effusion * Pulmonology consulted * Continue breathing treatments q.6 hour, Mucinex and Roflumilast * Full respiratory panel negative except: Positive human metapneumovirus * negative for influenza A and B, RSV, COVID * Continue prednisone 40 mg daily * Continue Tessalon Perles * Continue Azithromycin per pulmonology recommendation * Rocephin completed * Patient requesting pulmonary rehab at discharge (2) Acute on chronic hypoxic respiratory failure: Code(s): J96.21 - Acute and chronic respiratory failure with hypoxia Status: Acute Assessment and Plan: See above plan of custodial CPAP at night (3) Anxiety: Code(s): F41.9 - Anxiety disorder, unspecified Status: Acute Assessment and Plan: stable * BuSpar increased to 10 mg daily * Continue hydroxyzine Time Spent With Patient Time with patient: Greater than 35 minutes Subjective Date/time seen: 01/14/25 08:20 Interval history: Interval summary: This is a 64-year-old with a significant past medical history end-stage COPD on chronic home O2 3-4 L, hypertension, chronic pain, GERD, anxiety who presented to the hospital with chest tightness and shortness breath workup in hospital included a chest x-ray which showed significant emphysematous changes possible small right-sided pleural effusion. He is currently on Rocephin and Azithromycin. Subjective: patient still complains chest tightness and wheezing, DuoNebs increased q4hr patient will likely discharge tomorrow or over the weekend Review of Systems Review of Systems: 12 systems were reviewed with pertinent positives and negatives per HPI. Except as documented in the HPI, all other systems were reviewed and are negative. All systems reviewed & are unremarkable except as noted in HPI and below Exam Narrative: General: well appearing, appears stated age. mild distress, tachypneic, unable to complete sentences HEENT: normocephalic, atraumatic. Mucous membranes moist. EOMI, PERRLA, bilateral sclera anicteric, no conjunctival injection. Neck supple without JVD, lymphadenopathy, or bruit. Respiratory: wheezing so throughout Cardiovascular: Regular rate and rhythm, normal S1-S2 upon ascultation. No murmurs, rubs, or clicks. PMI is nondisplaced, capillary refill less than 3 second. Abdomen: Soft, round, no pulsatile masses, nondistended and nontender. No reboun d, no guarding. No CVA tenderness, no hepatosplenomegaly. Bowel sounds present to all four quadrants. No high pitch or tinkling sounds, resonant to percussion. Extremities: No cyanosis, clubbing, or edema present. Pulses are palpable 2/2. Active ROM to all four extremities. Neuro: Alert and orientated x 4. PERRLA. Cranial nerves 2-12 intact without focal deficit. Skin: Warm, dry, and intact, without rash, erythema, or lesion. Psych: pleasant, cooperative, normal speech, normal affect, no hallucinations, no dysarthia Objective Data Vital Signs Vital Signs: Vital Signs - 24 hr 01/13/25 12:00 01/13/25 13:25 01/13/25 14:00 Temperature 97.1 F L Pulse Rate 117 H 124 H 127 H Respiratory Rate 22 H 18 Blood Pressure 111/85 Pulse Oximetry 99 Oxygen Delivery Oxygen Flow Rate 01/13/25 16:00 01/13/25 19:32 01/13/25 19:32 Temperature Pulse Rate 114 H 120 H Respiratory Rate 26 H Blood Pressure Pulse Oximetry 98 Oxygen Delivery Oxygen Flow Rate 4 01/13/25 20:00 01/13/25 20:00 01/13/25 21:41 Temperature 97.3 F L Pulse Rate 108 H 119 H Respiratory Rate 14 Blood Pressure 138/84 Pulse Oximetry 98 99 Oxygen Delivery Nasal Cannula Oxygen Flow Rate 3 01/14/25 00:00 01/14/25 01:20 01/14/25 01:38 Temperature Pulse Rate 101 H 108 H 89 Respiratory Rate 22 H 22 H Blood Pressure Pulse Oximetry Oxygen Delivery Oxygen Flow Rate 01/14/25 04:00 01/14/25 06:00 Temperature 97.4 F L Pulse Rate 107 H 86 Respiratory Rate 12 Blood Pressure 111/69 Pulse Oximetry 100 Oxygen Delivery Oxygen Flow Rate Intake/Output Intake/Output: Intake & Output 01/11/25 01/12/25 01/13/25 01/14/25 23:59 23:59 23:59 23:59 Intake Total 1638 1810 810 550 Output Total 300 750 650 300 Balance 1338 1060 160 250 Meds/Results Medications: Active Medications Generic Name Dose Route Start Last Admin Trade Name Freq PRN Reason Stop Dose Admin Acetaminophen 650 mg 01/09/25 21:09 01/13/25 20:21 Acetaminophen 325 Mg Tablet PO 650 mg Q4H PRN Administration Mild Pain (1-3) or Fever Acetaminophen 650 mg 01/12/25 09:30 Acetaminophen 325 Mg Tablet PO Q4H PRN Headache Hydrocodone Bitart/Acetaminophen 1 tab 01/10/25 00:39 01/14/25 02:01 Hydrocodone/Acetaminophen (*Crx) 5-325 Mg Tablet PO 1 tab Q6H PRN Administration Pain 4-6 Al Hydrox/Mg Hydrox/Simethicone 30 ml 01/13/25 15:25 01/13/25 17:02 Mag Hydrox/Al Hydrox/Simeth 30 Ml Udc PO 30 ml Q6H PRN Administration Indigestion Aspirin 81 mg 01/10/25 08:00 01/13/25 08:14 Aspirin 81 Mg Chewable Tablet PO 81 mg DAILY@0800 DAVIAN Administration Azithromycin 500 mg 01/15/25 09:00 Azithromycin 250 Mg Tablet PO [email or web address] DAVIAN Benzonatate 200 mg 01/10/25 00:52 01/11/25 09:46 Benzonatate 100 Mg Capsule PO 200 mg TID PRN Administration cough Buspirone HCl 10 mg 01/12/25 09:00 01/13/25 08:14 Buspirone Hcl 5 Mg Tablet PO 10 mg DAILY DAVIAN Administration Dextrose 12.5 gm 01/09/25 21:09 Dextrose 50% 25 Gm/50 Ml Syringe IV PUSH PRN PRN Hypoglycemia Protocol Enoxaparin Sodium 40 mg 01/10/25 12:45 01/13/25 08:16 Enoxaparin 40 Mg/0.4 Ml Syringe SUB-Q 40 mg DAILY DAVIAN Administration Fluticasone Propionate 1 spray 01/10/25 00:40 01/13/25 15:33 Fluticasone Propionate 0.05% Na Spr 16 Gm Btl (*Bkc) NASAL 1 spray BID PRN Administration ALLERGIES Glucagon 1 mg 01/09/25 21:09 Glucagon For Inj 1 Mg Vial IM PRN PRN Hypoglycemia Protocol Glucose 15 gm 01/09/25 21:09 Glucose Oral Gel 15 Gm Of Glucse In 37.5 Gm Tube PO PRN PRN Hypoglycemia Protocol Guaifenesin 1,200 mg 01/10/25 09:00 01/13/25 20:21 Guaifenesin 12 Hr 600 Mg Tabcr PO 1,200 mg Q12HR DAVIAN Administration Hydroxyzine HCl 25 mg 01/10/25 00:39 01/14/25 02:01 Hydroxyzine Hcl 25 Mg Tablet PO 25 mg TID PRN Administration anxiety Dextrose 1,000 mls @ 100 mls/hr 01/09/25 21:09 Dextrose 5% 1,000 Ml IVPB PRN PRN Hypoglycemia Protocol Ipratropium [place] 0.5 mg 01/10/25 02:00 01/14/25 01:19 Ipratropium Br 0.02% Inh Soln 0.5 Mg/2.5 Ml Vial INHALATION 0.5 mg Q6HRT DAVIAN Administration Latanoprost 1 drop 01/10/25 21:00 01/13/25 20:21 Latanoprost 0.005% Op Soln 2.5 Ml Btl EACH EYE Not Given HS [facility] Levalbuterol HCl 0.63 mg 01/10/25 02:00 01/14/25 01:19 Levalbuterol Neb 1.25 Mg/3 Ml INHALATION 0.63 mg Q6HRT DAVIAN Administration Melatonin 10 mg 01/10/25 21:00 01/13/25 20:21 Melatonin 5 Mg Tablet PO 10 mg HS DAVIAN Administration Melatonin 5 mg 01/10/25 11:53 Melatonin 5 Mg Tablet PO HS PRN sleep Morphine Sulfate 2 mg 01/09/25 21:09 Morphine Sulfate (*Crx) 2 Mg/Ml Inj IV PUSH Q2H PRN Pain Rated 7-10 Mupirocin 1 applic 01/10/25 11:53 01/13/25 15:34 Mupirocin 2% Oint 22 Gm Tube TOPICAL 1 applic BID PRN Administration dry nasal passages Pantoprazole Sodium 40 mg 01/10/25 09:00 01/13/25 08:14 Pantoprazole 40 Mg Tablet PO 40 mg QAM DAVIAN Administration Polyethylene Glycol 17 gm 01/10/25 11:55 01/10/25 12:24 Polyethylene Glycol 3350 17 Gm Powd.Pack PO 17 gm QAM PRN Administration Constipation Prednisone 40 mg 01/11/25 08:00 01/13/25 08:14 Prednisone 20 Mg Tablet PO 40 mg DAILY@0800 DAVIAN Administration Roflumilast 500 mcg 01/10/25 09:00 01/13/25 08:14 Roflumilast 500 Mcg Tablet BY MOUTH 500 mcg DAILY DAVIAN Administration Radiology Results: ITS Impressions Chest X-Ray 01/09/25 17:36 IMPRESSION: Significant emphysematous change, with possibly a small right-sided pleural effusion, an interval change from prior. Labs Labs: Laboratory Results - last 24 hr 01/11/25 01/14/25 11:58 05:27 WBC 8.4 RBC 4.44 L Hgb 14.0 Hct 43.4 MCV 97.7 MCH 31.5 MCHC 32.3 RDW 13.3 Plt Count 390 H MPV 10.6 H Immature Gran % (Auto) 0.6 H Neut % (Auto) 62.5 Lymph % (Auto) 24.3 [place] % (Auto) 12.0 H Eos % (Auto) 0.4 Baso % (Auto) 0.2 Lymph # (Auto) 2.03 [place] # (Auto) 1.0 H Eos # (Auto) 0.0 Baso # (Auto) 0.0 Abs Immat Gran (auto) 0.05 H Absolute Neuts (auto) 5.2 Absolute Nucleated RBC 0.000 Nucleated RBC % 0.0 Sodium 142 Potassium 3.8 Chloride 100 Carbon Dioxide 35 H Anion Gap 7 BUN 21 H Creatinine 0.73 Estim Creat Clear Calc 88 Estimated GFR > 60 Glucose 76 Calcium 9.3 Total Bilirubin 0.5 AST 26 ALT 24 Alkaline Phosphatase 68 Total Protein 7.0 Albumin 4.0 Nasal RSV Type A (PCR) Not detected Nasal RSV Type B (PCR) Not detected Chlamy pneumoniae PCR Not detected Adenovirus DNA Not detected Human Bocavirus (DEANDRE) Not detected Coronavirus Type OC43 Not detected Coronavirus Type HKU1 Not detected Coronavirus Type 229E Not detected Coronavirus Type NL63 Not detected Human Metapneumovir PCR Detected A Influenza A (PCR) Not detected Influenza A (H1) RNA Not detected Influenza A (H3) PCR Not detected M. pneumoniae DNA Not detected Parainfluenza PCR Not detected Parainfluenza 2 (PCR) Not detected Parainfluenza 3 RNA (PCR) Not detected Parainfluenza 4 (PCR) Not detected Rhino/Enterovirus (DEANDRE) Not detected Influenza Type B (PCR) Not detected Misc Test Comment see note Quality VTE Prophylaxis VTE prophylaxis: pharmacologic ordered (Lovenox 40 mg subQ daily.)
[2025-01-14] MEDS: predniSONE 20 MG TABLET 40 MG PO (08:38)
[2025-01-14] MEDS: guaiFENesin 12 HR 600 MG TABCR 1200 MG PO ×2 (08:39→21:18)
[2025-01-14] MEDS: ROFLUMILAST 500 MCG TABLET BY MOUTH (08:39)
[2025-01-14] MEDS: PANTOPRAZOLE 40 MG TABLET PO (08:39)
[2025-01-14] MEDS: ASPIRIN 81 MG CHEWABLE TABLET PO (08:39)
[2025-01-14] MEDS: busPIRone HCL 5 MG TABLET 10 MG PO (08:39)
[2025-01-14] MEDS: FLUTICASONE PROPIONATE 0.05% NA SPR 16 GM BTL (*BKC) 1 SPRAY NASAL (08:40)
[2025-01-14] MEDS: ENOXAPARIN 40 MG/0.4 ML SYRINGE SUB-Q (08:41)
[2025-01-14] MEDS: MUPIROCIN 2% OINT 22 GM TUBE 1 APPLIC TOPICAL (08:42)
--- NOTE | 2025-01-14 10:11 | P.PNPL_ITS ---
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 He also has allergies, anxiety, and a history of frequent COPD exacerbations, managed with low-dose steroids, Daliresp, and Zithromax. Some past hospitalizations were due to anxiety rather than true COPD exacerbations. patient is on 3 L with rest, 3 L with activity and 3 L bleed in with his noninvasive ventilator at night. He reported primarily experiencing tachycardia and coughing up some phlegm. On physical exam today, there is no wheezing. I suspect his current hospitalization was triggered by mild bronchitis and anxiety. Normal BNP and D-dimers make conditions like congestive heart failure and embolism highly unlikely. His condition has already improved with the current management. Plan: Continue prescribed antibiotics, oxygen, DVT prophylaxis, and nebulized short-acting bronchodilators. I have switched the patient to oral steroids and anticipate discharge home within the next 48 hours. 01/11/2025: Patient tells me that his breathing is about the same. He states he has 15% back to his normal. He says his heart rate is better. Currently patient is on 4 L nasal cannula saturations 100%. He refuses to allow me to decrease to 3 L at this point because he says he is anxious when it gets turned down. tolerate his home astral with 3 L bleed in. Plan: Continue prednisone 40 mg a day, day 3 of steroids. Continue levalbuterol and ipratropium nebulizers q.6 hours. The patient has sinus tachycardia and will not increase his nebulizers at this time. Continue guaifenesin 1200 mg p.o. b.i.d.. Continue Daliresp 500 q.day. patient is on ceftriaxone and azithromycin both day 3 for possible Pneumonia-bronchitis and will continue today. Goal saturation 90-94%. Patient is currently refusing to decrease his oxygen as this makes his anxiety worse. I will check a respiratory pathogen panel looking for a viral infection causing this exacerbation. Regarding his noninvasive ventilator I will obtain a download from [employer] I will obtain an overnight oximetry on his astral with 3 L bleed in. 4/1/25: Patient states he is slowly getting better. Today he says he is 25% back to normal. He still has wheezing, shortness of breath at rest and dyspnea on exertion with any activity. He is afebrile. His weight today is 83.5 and cumulative he is +1.7 L since admission. Patient had an overnight oximetry on his home astral with 3 L bleed in with recording duration of 5 hours and 33 minutes. Average saturation 96%. Low saturation 89%. Time with saturation less than or equal to 88% was 0 minutes. Oxygen desaturation index 0.4. Patient is currently on 4 L nasal cannula saturations 100%. Plan: Continue prednisone 40 mg a day, day 4 of steroids. Continue levalbuterol and ipratropium nebulizers q.6 hours. Continue guaifenesin 1200 mg p.o. b.i.d.. Continue Daliresp 500 q.day. Patient is on ceftriaxone and azithromycin both day 4 for possible Pneumonia-bronchitis and will continue today. Goal saturation 90-94%, patient is reluctant to turn his oxygen down and gets anxious when we talk about it. Respiratory pathogen panel pending. Regarding his noninvasive ventilation and 3 L bleed in his overnight oximetry is good. Will continue. 01/13/25: Patient told me he did well yesterday through the day told me he was 35-40% back to his normal. The patient puts on and off his home noninvasive ventilator and usually has his oxygen next to him. Today he took his home noninvasive ventilator off of him but his oxygen had been removed from his bedside and he went into respiratory distress with saturations of 68%. He is now on 4 L nasal cannula saturations 100% and improving back to his baseline. He still has dyspnea on exertion with minimal activity. White blood cell count 7.6, creatinine 0.69. Weight today is 82.5. Plan: Continue prednisone 40 a day, day 5 of steroids. Continue levalbuterol and ipratropium nebulizers q.6 hours, guaifenesin 1200 b.i.d., Daliresp 500 a day. Continue ceftriaxone and azithromycin both day 5 for possible bronchitis. Will discontinue azithromycin after today's dose. 01/14/2025: Respiratory pathogen panel collected on 01/11 returned today as positive for metapneumovirus. Overall the patient tells me he still has some shortness of breath, chest tightness and phlegm production although he has improved. States he is 60% back to his normal. He is afebrile. Whit blood cell count 7.6, creatinine 0.69. Is currently on 4 L nasal cannula oxygen. He has no wheezing on exam today for the 1st day. Plan: Metapneumovirus likely explain COPD exacerbation. He has received prednisone 40 a day today, day 6 of steroids. Will continue levalbuterol and ipratropium Q 6 hours, guaifenesin 1200 b.i.d., Daliresp 500 a day and azithromycin Saturday and Saturday. He is chronically on 5-10 mg of steroids a day and I will decrease him tomorrow to 10 mg of Prednisone. Goal saturation 90-94%. Discussed with Rocio Yates. Will follow with you. (2) Bronchitis due to human metapneumovirus (hMPV): Code(s): J40 - Bronchitis, not specified as acute or chronic; B97.81 - Human metapneumovirus as the cause of diseases classified elsewhere Status: Acute Assessment and Plan: 01/14/25: Respiratory pathogen panel collected on 01/11 returned today as positive for metapneumovirus. Plan: Chest x-ray today shows no focal infiltrates. Treatment for metapneumovirus is supportive. Will decrease his steroids as above. Subjective Date/time seen: 01/14/25 10:11 Interval history: 01/10/25: New pulmonary consult Chief complaint: COPD exacerbation, Acute on chronic resp failure Narrative: A 64-year-old male with end-stage COPD, FEV1 in the range of 30% predicted, is well known to Pulmonary Services from previous hospitalizations and outpatient follow-ups. He has chronic hypoxemic respiratory failure, requiring continuous home supplemental oxygen At 3 L nasal cannula at rest, with activity and 3 L at night with his home ventilator. His advanced COPD includes lung hyperinflation, and he has undergone [place] valve placement, resulting in the collapse of the right upper lobe to alleviate chronic shortness of breath. His maintenance regimen consists of bronchodilators, short-acting bronchodilators, and medications for frequent exacerbations, such as Zithromax, Daliresp, and prednisone 5 mg daily. He was last seen in the pulmonary clinic about six months ago. Over the past few years, he has attended pulmonary rehab with significant improvements in exercise capacity and weight loss. The patient presented with a one-day history of shortness of breath and tachycardia during activities. He reported that his home pulse oximetry showed stable oxygen levels (95-96%) but a pulse rate around 150 bpm. He had mild coug jai with light yellow sputum, but no fever, chills, hemoptysis, chest pain, or lower extremity edema. His was recently diagnosed with pneumonia. In the ER, a chest X-ray suggested a small right pleural effusion, with no new infiltrates. ABGs showed no significant hypercapnic respiratory failure, 7.35/43/105 on 5 L nasal cannula, and BNP, D-dimers, and WBC were not elevated. He has been receiving antibiotics, IV steroids, and short-acting bronchodilators for a COPD exacerbation, with some improvement in his respiratory status over the past 24 hours. 01/11/2025: Patient tells me that his breathing is about the same. He states he has 15% back to his normal. He says his heart rate is better. Currently patient is on 4 L nasal cannula saturations 100%. He refuses to allow me to de crease to 3 L at this point because he says he is anxious when it gets turned down. tolerate his home astral with 3 L bleed in. 01/12/25: Patient states he is slowly getting better. Today he says he is 25% back to normal. He still has wheezing, shortness of breath at rest and dyspnea on exertion with any activity. He is afebrile. His weight today is 83.5 and cumulative he is +1.7 L since admission. Patient had an overnight oximetry on his home astral with 3 L bleed in with recording duration of 5 hours and 33 minutes. Average saturation 96%. Low saturation 89%. Time with saturation le ss than or equal to 88% was 0 minutes. Oxygen desaturation index 0.4. Patient is currently on 4 L nasal cannula saturations 100%. 01/13/25: Patient told me he did well yesterday through the day told me he was 35-40% back to his normal. The patient puts on and off his home noninvasive ventilator and usually has his oxygen next to him. Today he took his home noninvasive ventilator off of him but his oxygen had been removed from his bedside and he went into respiratory distress with saturations of 68%. He is now on 4 L nasal cannula saturations 100% and improving back to his baseline. He still has dyspnea on exertion with minimal activity. White blood cell count 7.6, creatinine 0.69. Weight today is 82.5. 01/14/2025: Respiratory pathogen panel collected on 01/11 returned today as positive for metapneumovirus. Overall the patient tells me he still has some shortness of breath, chest tightness and phlegm production although he has improved. States he is 60% back to his normal. He is afebrile. Whit blood cell count 7.6, creatinine 0.69. Is currently on 4 L nasal cannula oxygen. He has no wheezing on exam today for the 1st day. DATA: 12/12/24: Patient had an overnight oximetry on his home astral with 3 L bleed in with recording duration of 5 hours and 33 minutes. Average saturation 96%. Low saturation 89%. Time with saturation less than or equal to 88% was 0 minutes. 11/27/2024: EXAMINATION: CTA chest PE protocol DATE: 11/27/2024 12:10 INDICATION: Chest pain and dyspnea TECHNIQUE: Computed tomography (CT) pulmonary angiogram of the chest was performed with 100 mL Omnipaque-350 intravenous contrast. Additional 3D reconstructions utilizing coronal maximum intensity projection (MIP) were performed. Automated exposure control and iterative reconstruction technique were employed. The dose-length product was 832.10 mGy-cm. COMPARISON: 02/19/2024 and 02/17/2023 FINDINGS: No pulmonary embolism. Chronic right upper lobe collapse with endobronchial valves in the right upper lobe are segmental bronchi. Chronic mild linear discoid atelectasis/scarring in the bilateral lower lobes, right greater than left. No pneumonia, pulmonary edema, pleural effusion or pneumothorax. Heart size is normal. Atherosclerotic coronary artery calcification is. No pericardial effusion. Thoracic aorta is normal in caliber with no dissection. Multinodular goiter. No pathologically enlarged thoracic lymphadenopathy. A couple 2 mm nonobstructing stones at an upper pole calyx of the right kidney. Mild thoracic spondylosis. IMPRESSION: 1. No pulmonary embolism or other acute cardiopulmonary disease. 2. Moderate emphysema with endobronchial valves in the right upper lobar bronchi with chronic collapse of the right upper lobe. 3. Multinodular goiter. 4. Nonobstructing right nephrolithiasis. LDCT 02/19/24 - chronic complete right upper lobe atelectasis with endobronchial valves present. Moderate emphysema present. There is linear scarring right lower lobe. Chest CTA 02/17/23 - No pulmonary embolus. Moderate emphysema. Chronic right upper lobe collapse with endobronchial valves. Chest CT 11/25/22 - Minimal left basilar atelectasis. Persistent right upper lobe collapse. Endobronchial devices in right upper lobe bronchi. Chest CTA 11/20/22 - No evidence of pulmonary embolus, aortic dissection, or aortic aneurysm. Chronic complete right upper lobe collapse, as seen on prior exam. Minimal emphysema. PFT @ [facility] 01/16/19 very severe obstructive abnormality without significant improvement after bronchodilator. Hyperinflation and air trapping noted. DLCO is severely decreased. FEV1 0.74L, 30%. 05/10/22 Echo: EF 55-60%, grade I diastolic dysfunction (E/e' 9). No pulmonary hypertension, estimated pulmonary arterial systolic pressure is 26 mmHg. Review of Systems Review of Systems: All systems reviewed & are unremarkable except as noted in HPI and below (HPI and below) Constitutional: Constitutional: Reports no additional constitutional complaints Eyes: Eyes: Reports no additional eye complaints ENT: Reports system reviewed and no additional complaints, except as documented Cardiovascular: Cardiovascular: Reports no additional cardiovascular complaints Respiratory: Respiratory: Reports no additional respiratory complaints Gastrointestinal: Gastrointestinal: Reports no additional gastrointestinal complaints Musculoskeletal: Musculoskeletal: Reports no additional musculoskeletal complaints Neurologic: Reports system reviewed and no additional complaints, except as documented Psychiatric: Psychiatric: Reports no additional psychiatric complaints Endocrine: Endocrine: Reports no additional endocrine complaints Hematologic/Lymphatic: Hematologic/Lymphatic: Reports no additional hematologic/lymphatic complaints Allergic/Immunologic: Allergic/Immunologic: Reports no additional allergic/immunologic complaints Exam Const: General: cooperative, healthy appearing and comfortable Orientation/consciousness: oriented to person, oriented to place and oriented to time HENMT: Head: normal to inspection Ears: hearing grossly normal bilaterally Eyes: General: appearance normal, both eyes and all related structures Neck: Neck: normal visual inspection Chest: Chest palpation & inspection: normal inspection of the chest Resp: Effort & Inspection: normal respiratory effort and able to speak in complete sentences Auscultation: no crackles, no rales, no rhonchi, no wheezes and lung sounds not diminished Cardio: Jugular venous distension: no JVD GI: Inspection: normal to inspection Skin: General skin exam: normal color Neuro: General: oriented to person, oriented to place and oriented to time Extrem: General: normal to inspection Psych: Appearance: grossly normal Objective Data Vital Signs Vital Signs: Vital Signs - 24 hr 01/13/25 12:00 01/13/25 13:25 01/13/25 14:00 Temperature 36.2 C L Pulse Rate 117 H 124 H 127 H Respiratory Rate 22 H 18 Blood Pressure 111/85 Pulse Oximetry 99 Oxygen Delivery Oxygen Flow Rate 01/13/25 16:00 01/13/25 19:32 01/13/25 19:32 Temperature Pulse Rate 114 H 120 H Respiratory Rate 26 H Blood Pressure Pulse Oximetry 98 Oxygen Delivery Oxygen Flow Rate 4 01/13/25 20:00 01/13/25 20:00 01/13/25 21:41 Temperature 36.3 C L Pulse Rate 108 H 119 H Respiratory Rate 14 Blood Pressure 138/84 Pulse Oximetry 98 99 Oxygen Delivery Nasal Cannula Oxygen Flow Rate 3 01/14/25 00:00 01/14/25 01:20 01/14/25 01:38 Temperature Pulse Rate 101 H 108 H 89 Respiratory Rate 22 H 22 H Blood Pressure Pulse Oximetry Oxygen Delivery Oxygen Flow Rate 01/14/25 04:00 01/14/25 06:00 01/14/25 08:42 Temperature 36.3 C L Pulse Rate 107 H 86 119 H Respiratory Rate 12 20 Blood Pressure 111/69 Pulse Oximetry 100 97 Oxygen Delivery Nasal Cannula Oxygen Flow Rate 4 01/14/25 08:42 01/14/25 09:00 Temperature Pulse Rate 119 H 129 H Respiratory Rate 20 24 H Blood Pressure Pulse Oximetry Oxygen Delivery Oxygen Flow Rate Intake/Output Intake/Output: Intake & Output 01/11/25 01/12/25 01/13/25 01/14/25 23:59 23:59 23:59 23:59 Intake Total 1638 1810 810 550 Output Total 300 750 650 300 Balance 1338 1060 160 250 Meds/Results Medications: Active Medications Generic Name Dose Route Start Last Admin Trade Name Freq PRN Reason Stop Dose Admin Acetaminophen 650 mg 01/09/25 21:09 01/13/25 20:21 Acetaminophen 325 Mg Tablet PO 650 mg Q4H PRN Administration Mild Pain (1-3) or Fever Hydrocodone Bitart/Acetaminophen 1 tab 01/10/25 00:39 01/14/25 02:01 Hydrocodone/Acetaminophen (*Crx) 5-325 Mg Tablet PO 1 tab Q6H PRN Administration Pain 4-6 Al Hydrox/Mg Hydrox/Simethicone 30 ml 01/13/25 15:25 01/13/25 17:02 Mag Hydrox/Al Hydrox/Simeth 30 Ml Udc PO 30 ml Q6H PRN Administration Indigestion Aspirin 81 mg 01/10/25 08:00 01/14/25 08:39 Aspirin 81 Mg Chewable Tablet PO 81 mg DAILY@0800 DAVIAN Administration Azithromycin 500 mg 01/15/25 09:00 Azithromycin 250 Mg Tablet PO [id number] DAVIAN Benzonatate 200 mg 01/10/25 00:52 01/11/25 09:46 Benzonatate 100 Mg Capsule PO 200 mg TID PRN Administration cough Buspirone HCl 10 mg 01/12/25 09:00 01/14/25 08:39 Buspirone Hcl 5 Mg Tablet PO 10 mg DAILY DAVIAN Administration Dextrose 12.5 gm 01/09/25 21:09 Dextrose 50% 25 Gm/50 Ml Syringe IV PUSH PRN PRN Hypoglycemia Protocol Enoxaparin Sodium 40 mg 01/10/25 12:45 01/14/25 08:41 Enoxaparin 40 Mg/0.4 Ml Syringe SUB-Q 40 mg DAILY DAVIAN Administration Fluticasone Propionate 1 spray 01/10/25 00:40 01/14/25 08:40 Fluticasone Propionate 0.05% Na Spr 16 Gm Btl (*Bkc) NASAL 1 spray BID PRN Administration ALLERGIES Glucagon 1 mg 01/09/25 21:09 Glucagon For Inj 1 Mg Vial IM PRN PRN Hypoglycemia Protocol Glucose 15 gm 01/09/25 21:09 Glucose Oral Gel 15 Gm Of Glucse In 37.5 Gm Tube PO PRN PRN Hypoglycemia Protocol Guaifenesin 1,200 mg 01/10/25 09:00 01/14/25 08:39 Guaifenesin 12 Hr 600 Mg Tabcr PO 1,200 mg Q12HR DAVIAN Administration Hydroxyzine HCl 25 mg 01/10/25 00:39 01/14/25 02:01 Hydroxyzine Hcl 25 Mg Tablet PO 25 mg TID PRN Administration anxiety Dextrose 1,000 mls @ 100 mls/hr 01/09/25 21:09 Dextrose 5% 1,000 Ml IVPB PRN PRN Hypoglycemia Protocol Ipratropium [place] 0.5 mg 01/10/25 02:00 01/14/25 08:42 Ipratropium Br 0.02% Inh Soln 0.5 Mg/2.5 Ml Vial INHALATION 0.5 mg Q6HRT DAVIAN Administration Latanoprost 1 drop 01/10/25 21:00 01/13/25 20:21 Latanoprost 0.005% Op Soln 2.5 Ml Btl EACH EYE Not Given HS DAVIAN Levalbuterol HCl 0.63 mg 01/10/25 02:00 01/14/25 08:41 Levalbuterol Neb 1.25 Mg/3 Ml INHALATION 0.63 mg Q6HRT DAVIAN Administration Melatonin 10 mg 01/10/25 21:00 01/13/25 20:21 Melatonin 5 Mg Tablet PO 10 mg HS DAVIAN Administration Melatonin 5 mg 01/10/25 11:53 Melatonin 5 Mg Tablet PO HS PRN sleep Morphine Sulfate 2 mg 01/09/25 21:09 Morphine Sulfate (*Crx) 2 Mg/Ml Inj IV PUSH Q2H PRN Pain Rated 7-10 Mupirocin 1 applic 01/10/25 11:53 01/14/25 08:42 Mupirocin 2% Oint 22 Gm Tube TOPICAL 1 applic BID PRN Administration dry nasal passages Pantoprazole Sodium 40 mg 01/10/25 09:00 01/14/25 08:39 Pantoprazole 40 Mg Tablet PO 40 mg QAM DAVIAN Administration Polyethylene Glycol 17 gm 01/10/25 11:55 01/10/25 12:24 Polyethylene Glycol 3350 17 Gm Powd.Pack PO 17 gm QAM PRN Administration Constipation Prednisone 10 mg 01/15/25 08:00 Prednisone 10 Mg Tablet PO DAILY@0800 DAVIAN Roflumilast 500 mcg 01/10/25 09:00 01/14/25 08:39 Roflumilast 500 Mcg Tablet BY MOUTH 500 mcg DAILY DAVIAN Administration Radiology Results: ITS Impressions Chest X-Ray 01/14/25 09:18 IMPRESSION: 1. 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 No acute cardiopulmonary disease. Labs Labs: Laboratory Results - last 24 hr 01/11/25 01/14/25 11:58 05:27 WBC 8.4 RBC 4.44 L Hgb 14.0 Hct 43.4 MCV 97.7 MCH 31.5 MCHC 32.3 RDW 13.3 Plt Count 390 H MPV 10.6 H Immature Gran % (Auto) 0.6 H Neut % (Auto) 62.5 Lymph % (Auto) 24.3 [place] % (Auto) 12.0 H Eos % (Auto) 0.4 Baso % (Auto) 0.2 Lymph # (Auto) 2.03 [place] # (Auto) 1.0 H Eos # (Auto) 0.0 Baso # (Auto) 0.0 Abs Immat Gran (auto) 0.05 H Absolute Neuts (auto) 5.2 Absolute Nucleated RBC 0.000 Nucleated RBC % 0.0 Sodium 142 Potassium 3.8 Chloride 100 Carbon Dioxide 35 H Anion Gap 7 BUN 21 H Creatinine 0.73 Estim Creat Clear Calc 88 Estimated GFR > 60 Glucose 76 Calcium 9.3 Total Bilirubin 0.5 AST 26 ALT 24 Alkaline Phosphatase 68 Total Protein 7.0 Albumin 4.0 Nasal RSV Type A (PCR) Not detected Nasal RSV Type B (PCR) Not detected Chlamy pneumoniae PCR Not detected Adenovirus DNA Not detected Human Bocavirus (DEANDRE) Not detected Coronavirus Type OC43 Not detected Coronavirus Type HKU1 Not detected Coronavirus Type 229E Not detected Coronavirus Type NL63 Not detected Human Metapneumovir PCR Detected A Influenza A (PCR) Not detected Influenza A (H1) RNA Not detected Influenza A (H3) PCR Not detected M. pneumoniae DNA Not detected Parainfluenza PCR Not detected Parainfluenza 2 (PCR) Not detected Parainfluenza 3 RNA (PCR) Not detected Parainfluenza 4 (PCR) Not detected Rhino/Enterovirus (DEANDRE) Not detected Influenza Type B (PCR) Not detected Misc Test Comment see note
[2025-01-14] MEDS: MELATONIN 5 MG TABLET 10 MG PO (21:20)
[2025-01-14] MEDS: MAG HYDROX/AL HYDROX/SIMETH 30 ML UDC PO (21:26)
[2025-01-15] VITALS (23 sets, daily range): BP systolic 108–138; BP diastolic 84–98; PULSE 93–148; RESP 16–22; TEMP 35.9–36.7; O2SAT 85–99
[2025-01-15] MEDS: IPRATROPIUM BR 0.02% INH SOLN 0.5 MG/2.5 ML VIAL INHALATION ×6 (00:41→19:50)
[2025-01-15] MEDS: LEVALBUTEROL NEB 1.25 MG/3 ML 0.63 MG INHALATION ×6 (00:41→19:50)
[2025-01-15 05:45] LABS: Basophils Percent Auto 0.3 % (0.2-1.2); Eosinophils Absolute Auto 0.1 K/mm3 (0-0.3); Eosinophils Percent Auto 0.5 % (0-4.4); Hematocrit 41.9 % (42.0-52.0); Hemoglobin 13.6 g/dL (14.0-18.0); Immature Granulocyte Absolute 0.06 K/mm3 (0.00-0.031); Immature Granulocyte Percent A 0.7 % (0-0.5); Lymphocytes Absolute Auto 2.21 K/mm3 (0.9-3.2); Lymphocytes Percent Auto 23.9 % (18.3-44.2); Mean Corpuscular HGB Conc 32.5 g/dl (32-36); Mean Corpuscular Hemoglobin 31.1 pg (26-34); Mean Corpuscular Volume 95.7 fl (80-100); Mean Platelet Volume 10.1 fl (7.4-10.4); Monocytes Absolute Auto 0.8 K/mm3 (0.1-0.6); Monocytes Percent Auto 8.5 % (2.6-8.5); Neutrophils Absolute Auto 6.1 K/mm3 (1.3-6.7); Neutrophils Percent Auto 66.1 % (45.5-73.1); Platelet Count Result 387 k/mm3 (150-375); Red Blood Count 4.38 M/mm3 (4.6-6.20); White Blood Count 9.2 K/mm3 (4.5-10.0)
[2025-01-15 06:14] LABS: Alanine Aminotransferase 25 U/L (6-50); Albumin Level 4.1 g/dL (3.5-5.1); Alkaline Phosphatase 72 U/L (38-126); Anion Gap 6 mmol/L (4-12); Aspartate Amino Transferase 22 U/L (17-59); Bilirubin,Total 0.6 mg/dL (0.2-1.3); Blood Urea Nitrogen 22 mg/dL (9-20); Calcium 9.1 mg/dL (8.4-10.2); Carbon Dioxide 34 mmol/L (22-30); Chloride 101 mmol/L (98-107); Estimated CRCL calculation 87 ml/min; Estimated Glomerular Filt Rate > 60; Glucose 139 mg/dL (65-110); Potassium 3.2 mmol/L (3.4-5.0); Sodium 141 mmol/L (137-145)
[2025-01-15] MEDS: HYDROcodone/acetaminophen (*CRX) 5-325 MG TABLET 1 TAB PO ×2 (08:31→21:11)
[2025-01-15] MEDS: hydrOXYzine HCL 25 MG TABLET PO ×2 (08:31→21:10)
[2025-01-15] MEDS: DOCUSATE SODIUM 100 MG CAPSULE PO (08:31)
[2025-01-15] MEDS: ENOXAPARIN 40 MG/0.4 ML SYRINGE SUB-Q (08:31)
[2025-01-15] MEDS: busPIRone HCL 5 MG TABLET 10 MG PO (08:32)
[2025-01-15] MEDS: ROFLUMILAST 500 MCG TABLET BY MOUTH (08:32)
[2025-01-15] MEDS: guaiFENesin 12 HR 600 MG TABCR 1200 MG PO ×2 (08:32→21:10)
[2025-01-15] MEDS: predniSONE 10 MG TABLET PO (08:32)
[2025-01-15] MEDS: PANTOPRAZOLE 40 MG TABLET PO (08:32)
[2025-01-15] MEDS: ASPIRIN 81 MG CHEWABLE TABLET PO (08:32)
[2025-01-15] MEDS: AZITHROMYCIN 250 MG TABLET 500 MG PO (08:34)
--- NOTE | 2025-01-15 10:55 | P.PNIM_ITS ---
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 Chest x-ray showing significant emphysematous changes with possible small right sided pleural effusion * Pulmonology consulted * Continue breathing treatments q.6 hour, Mucinex and Roflumilast * Full respiratory panel negative except: Positive human metapneumovirus * negative for influenza A and B, RSV, COVID * Continue prednisone 40 mg daily * Continue Tessalon Perles * Continue Azithromycin MWF per pulmonology recommendation * Rocephin completed * Patient requesting pulmonary rehab at discharge (2) Acute on chronic hypoxic respiratory failure: Code(s): J96.21 - Acute and chronic respiratory failure with hypoxia Status: Acute Assessment and Plan: See above plan of residential CPAP at night (3) Anxiety: Code(s): F41.9 - Anxiety disorder, unspecified Status: Acute Assessment and Plan: stable * BuSpar increased to 10 mg daily * Continue hydroxyzine (4) Hypokalemia: Code(s): E87.6 - Hypokalemia Status: Acute Assessment and Plan: Will replace with p.o. potassium Subjective Date/time seen: 01/15/25 10:55 Interval history: Interval summary: This is a 64-year-old with a significant past medical history end-stage COPD on chronic home O2 3-4 L, hypertension, chronic pain, GERD, anxiety who presented to the hospital with chest tightness and shortness breath workup in hospital included a chest x-ray which showed significant emphysematous changes possible small right-sided pleural effusion. He is currently on Rocephin and Azithromycin. 01/15/25 Patient was seen examined at bedside. He did have shortness of breath. Has expiratory wheezing. Denies any chest pain, abdominal pain, nausea vomiting. Discussed with pulmonary team. Continue with prednisone 10 mg. Continue with azithromycin MWF hypokalemia. Will give potassium Review of Systems Review of Systems: 12 systems were reviewed with pertinent positives and negatives per HPI. Except as documented in the HPI, all other systems were reviewed and are negative. All systems reviewed & are unremarkable except as noted in HPI and below Exam Narrative: General: well appearing, appears stated age. mild distress, tachypneic, unable to complete sentences HEENT: normocephalic, atraumatic. Mucous membranes moist. EOMI, PERRLA, bilateral sclera anicteric, no conjunctival injection. Neck supple without JVD, lymphadenopathy, or bruit. Respiratory: wheezing Cardiovascular: Regular rate and rhythm, normal S1-S2 upon ascultation. No murmurs, rubs, or clicks. PMI is nondisplaced, capillary refill less than 3 sec ond. Abdomen: Soft, round, no pulsatile masses, nondistended and nontender. No rebound, no guarding. No CVA tenderness, no hepatosplenomegaly. Bowel sounds present to all four quadrants. No high pitch or tinkling sounds, resonant to percussion. Extremities: No cyanosis, clubbing, or edema present. Pulses are palpable 2/2. Active ROM to all four extremities. Neuro: Alert and orientated x 4. PERRLA. Cranial nerves 2-12 intact without focal deficit. Skin: Warm, dry, and intact, without rash, erythema, or lesion. Psych: pleasant, cooperative, normal speech, normal affect, no hallucinations, no dysarthia Const: General: comfortable Other: Well-developed well-nourished, sitting on the side of the bed, appears stated age HENMT: Other: Nasal cannula in place, mucous membranes are tacky, no oral pharyngeal erythema, nasal cannula in place with pursed lip breathing Eyes: Other: Pupils are equal and reactive, no scleral icterus, no conjunctival pallor Neck: Other: No JVD, normal neck circumference Resp: Auscultation: diminished lung sounds Other: end-expiratory wheezing with click from bronchial valve Cardio: Rate: tachycardic Rhythm: regular rhythm Other: Regular rate, regular rhythm, 2+ bilateral radial pedal pulses GI: Other: Soft, nontender, positive bowel sounds Skin: General skin exam: normal color Other: No jaundice, no pallor Neuro: Other: Alert oriented, speech is clear, no facial asymmetry, no localizing neurologic deficits noted during the course of conversation Extrem: Other: No cyanosis, no edema, 5/5 strength bilateral upper and lower extremities Psych: Other: Appropriate mood and affect, pleasant and cooperative, fair judgment and insight Objective Data Vital Signs Vital Signs: Vital Signs - 24 hr 01/14/25 12:00 01/14/25 13:32 01/14/25 13:32 Temperature Pulse Rate 114 H 115 H 115 H Respiratory Rate 20 20 Blood Pressure Pulse Oximetry 98 Oxygen Delivery Nasal Cannula Oxygen Flow Rate 4 01/14/25 13:48 01/14/25 14:00 01/14/25 16:29 Temperature 97.4 F L Pulse Rate 104 H 127 H 115 H Respiratory Rate 20 20 20 Blood Pressure 134/91 H Pulse Oximetry 99 Oxygen Delivery Oxygen Flow Rate 01/14/25 16:47 01/14/25 19:47 01/14/25 19:48 Temperature Pulse Rate 120 H 128 H Respiratory Rate 24 H 20 Blood Pressure Pulse Oximetry 97 Oxygen Delivery Nasal Cannula Oxygen Flow Rate 4 01/14/25 20:00 01/14/25 20:03 01/14/25 21:30 Temperature 96.6 F L Pulse Rate 124 H 104 H Respiratory Rate 20 18 Blood Pressure 136/94 H Pulse Oximetry 97 93 Oxygen Delivery Nasal Cannula Oxygen Flow Rate 4 01/15/25 00:42 01/15/25 04:32 01/15/25 05:10 Temperature 96.7 F L Pulse Rate 127 H 93 116 H Respiratory Rate 20 20 18 Blood Pressure 138/84 Pulse Oximetry 98 Oxygen Delivery Oxygen Flow Rate 01/15/25 07:49 01/15/25 07:49 01/15/25 08:05 Temperature Pulse Rate 111 H 111 H 109 H Respiratory Rate 20 20 20 Blood Pressure Pulse Oximetry 99 Oxygen Delivery Nasal Cannula Oxygen Flow Rate 4 01/15/25 08:35 Temperature Pulse Rate Respiratory Rate Blood Pressure Pulse Oximetry 97 Oxygen Delivery Nasal Cannula Oxygen Flow Rate 4 Intake/Output Intake/Output: Intake & Output 01/12/25 01/13/25 01/14/25 01/15/25 23:59 23:59 23:59 23:59 Intake Total 6960 097 0028 786 Output Total 750 650 300 250 Balance 1060 160 730 536 Meds/Results Medications: Active Medications Generic Name Dose Route Start Last Admin Trade Name Freq PRN Reason Stop Dose Admin Acetaminophen 650 mg 01/09/25 21:09 01/13/25 20:21 Acetaminophen 325 Mg Tablet PO 650 mg Q4H PRN Administration Mild Pain (1-3) or Fever Hydrocodone Bitart/Acetaminophen 1 tab 01/10/25 00:39 01/15/25 08:31 Hydrocodone/Acetaminophen (*Crx) 5-325 Mg Tablet PO 1 tab Q6H PRN Administration Pain 4-6 Al Hydrox/Mg Hydrox/Simethicone 30 ml 01/13/25 15:25 01/14/25 21:26 Mag Hydrox/Al Hydrox/Simeth 30 Ml Udc PO 30 ml Q6H PRN Administration Indigestion Aspirin 81 mg 01/10/25 08:00 01/15/25 08:32 Aspirin 81 Mg Chewable Tablet PO 81 mg DAILY@0800 DAVIAN Administration Azithromycin 500 mg 01/15/25 09:00 01/15/25 08:34 Azithromycin 250 Mg Tablet PO 500 mg [email or web address] DAVIAN Administration Benzonatate 200 mg 01/10/25 00:52 01/11/25 09:46 Benzonatate 100 Mg Capsule PO 200 mg TID PRN Administration cough Buspirone HCl 10 mg 01/12/25 09:00 01/15/25 08:32 Buspirone Hcl 5 Mg Tablet PO 10 mg DAILY DAVIAN Administration Dextrose 12.5 gm 01/09/25 21:09 Dextrose 50% 25 Gm/50 Ml Syringe IV PUSH PRN PRN Hypoglycemia Protocol Docusate Sodium 100 mg 01/15/25 07:29 01/15/25 08:31 Docusate Sodium 100 Mg Capsule PO 100 mg Q12H PRN Administration Constipation Enoxaparin Sodium 40 mg 01/10/25 12:45 01/15/25 08:31 Enoxaparin 40 Mg/0.4 Ml Syringe SUB-Q 40 mg DAILY DAVIAN Administration Fluticasone Propionate 1 spray 01/10/25 00:40 01/14/25 08:40 Fluticasone Propionate 0.05% Na Spr 16 Gm Btl (*Bk) NASAL 1 spray BID PRN Administration ALLERGIES Glucagon 1 mg 01/09/25 21:09 Glucagon For Inj 1 Mg Vial IM PRN PRN Hypoglycemia Protocol Glucose 15 gm 01/09/25 21:09 Glucose Oral Gel 15 Gm Of Glucse In 37.5 Gm Tube PO PRN PRN Hypoglycemia Protocol Guaifenesin 1,200 mg 01/10/25 09:00 01/15/25 08:32 Guaifenesin 12 Hr 600 Mg Tabcr PO 1,200 mg Q12HR DAVIAN Administration Hydroxyzine HCl 25 mg 01/10/25 00:39 01/15/25 08:31 Hydroxyzine Hcl 25 Mg Tablet PO 25 mg TID PRN Administration anxiety Dextrose 1,000 mls @ 100 mls/hr 01/09/25 21:09 Dextrose 5% 1,000 Ml IVPB PRN PRN Hypoglycemia Protocol Ipratropium [place] 0.5 mg 01/14/25 13:10 01/15/25 07:44 Ipratropium Br 0.02% Inh Soln 0.5 Mg/2.5 Ml Vial INHALATION 0.5 mg Q4HRT DAVIAN Administration Latanoprost 1 drop 01/10/25 21:00 01/14/25 21:22 Latanoprost 0.005% Op Soln 2.5 Ml Btl EACH EYE Not Given HS DAVIAN Levalbuterol HCl 0.63 mg 01/14/25 13:10 01/15/25 07:44 Levalbuterol Neb 1.25 Mg/3 Ml INHALATION 0.63 mg Q4HRT DAVIAN Administration Melatonin 10 mg 01/10/25 21:00 01/14/25 21:20 Melatonin 5 Mg Tablet PO 10 mg HS DAVIAN Administration Melatonin 5 mg 01/10/25 11:53 Melatonin 5 Mg Tablet PO HS PRN sleep Mupirocin 1 applic 01/10/25 11:53 01/14/25 08:42 Mupirocin 2% Oint 22 Gm Tube TOPICAL 1 applic BID PRN Administration dry nasal passages Pantoprazole Sodium 40 mg 01/10/25 09:00 01/15/25 08:32 Pantoprazole 40 Mg Tablet PO 40 mg QAM DAVIAN Administration Polyethylene Glycol 17 gm 01/10/25 11:55 01/10/25 12:24 Polyethylene Glycol 3350 17 Gm Powd.Pack PO 17 gm QAM PRN Administration Constipation Prednisone 10 mg 01/15/25 08:00 01/15/25 08:32 Prednisone 10 Mg Tablet PO 10 mg DAILY@0800 DAVIAN Administration Roflumilast 500 mcg 01/10/25 09:00 01/15/25 08:32 Roflumilast 500 Mcg Tablet BY MOUTH 500 mcg DAILY DAVIAN Administration Radiology Results: ITS Impressions Chest X-Ray 01/14/25 09:18 IMPRESSION: 1. 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 No acute cardiopulmonary disease. Labs Labs: Laboratory Results - last 24 hr 01/11/25 01/15/25 11:58 05:35 WBC 9.2 RBC 4.38 L Hgb 13.6 L Hct 41.9 L MCV 95.7 MCH 31.1 MCHC 32.5 RDW 13.0 Plt Count 387 H MPV 10.1 Immature Gran % (Auto) 0.7 H Neut % (Auto) 66.1 Lymph % (Auto) 23.9 [place] % (Auto) 8.5 Eos % (Auto) 0.5 Baso % (Auto) 0.3 Lymph # (Auto) 2.21 [place] # (Auto) 0.8 H Eos # (Auto) 0.1 Baso # (Auto) 0.0 Abs Immat Gran (auto) 0.06 H Absolute Neuts (auto) 6.1 Absolute Nucleated RBC 0.000 Nucleated RBC % 0.0 Sodium 141 Potassium 3.2 L Chloride 101 Carbon Dioxide 34 H Anion Gap 6 BUN 22 H Creatinine 0.74 Estim Creat Clear Calc 87 Estimated GFR > 60 Glucose 139 H Calcium 9.1 Total Bilirubin 0.6 AST 22 ALT 25 Alkaline Phosphatase 72 Total Protein 7.0 Albumin 4.1 SARS-CoV-2 RNA (RT-PCR) Not detected Quality VTE Prophylaxis VTE prophylaxis: pharmacologic ordered (Lovenox 40 mg subQ daily.)
[2025-01-15] MEDS: MUPIROCIN 2% OINT 22 GM TUBE 1 APPLIC TOPICAL (11:47)
[2025-01-15] MEDS: FLUTICASONE PROPIONATE 0.05% NA SPR 16 GM BTL (*BKC) 1 SPRAY NASAL ×2 (11:47→21:12)
--- NOTE | 2025-01-15 11:53 | PM.PNPUL ---
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 He also has allergies, anxiety, and a history of frequent COPD exacerbations, managed with low-dose steroids, Daliresp, and Zithromax. Some past hospitalizations were due to anxiety rather than true COPD exacerbations. patient is on 3 L with rest, 3 L with activity and 3 L bleed in with his noninvasive ventilator at night. He reported primarily experiencing tachycardia and coughing up some phlegm. On physical exam today, there is no wheezing. I suspect his current hospitalization was triggered by mild bronchitis and anxiety. Normal BNP and D-dimers make conditions like congestive heart failure and embolism highly unlikely. His condition has already improved with the current management. Plan: Continue prescribed antibiotics, oxygen, DVT prophylaxis, and nebulized short-acting bronchodilators. I have switched the patient to oral steroids and anticipate discharge home within the next 48 hours. 01/11/2025: Patient tells me that his breathing is about the same. He states he has 15% back to his normal. He says his heart rate is better. Currently patient is on 4 L nasal cannula saturations 100%. He refuses to allow me to decrease to 3 L at this point because he says he is anxious when it gets turned down. tolerate his home astral with 3 L bleed in. Plan: Continue prednisone 40 mg a day, day 3 of steroids. Continue levalbuterol and ipratropium nebulizers q.6 hours. The patient has sinus tachycardia and will not increase his nebulizers at this time. Continue guaifenesin 1200 mg p.o. b.i.d.. Continue Daliresp 500 q.day. patient is on ceftriaxone and azithromycin both day 3 for possible Pneumonia-bronchitis and will continue today. Goal saturation 90-94%. Patient is currently refusing to decrease his oxygen as this makes his anxiety worse. I will check a respiratory pathogen panel looking for a viral infection causing this exacerbation. Regarding his noninvasive ventilator I will obtain a download from [employer]. I will obtain an overnight oximetry on his astral with 3 L bleed in. 4/1/25: Patient states he is slowly getting better. Today he says he is 25% back to normal. He still has wheezing, shortness of breath at rest and dyspnea on exertion with any activity. He is afebrile. His weight today is 83.5 and cumulative he is +1.7 L since admission. Patient had an overnight oximetry on his home astral with 3 L bleed in with recording duration of 5 hours and 33 minutes. Average saturation 96%. Low saturation 89%. Time with saturation less than or equal to 88% was 0 minutes. Oxygen desaturation index 0.4. Patient is currently on 4 L nasal cannula saturations 100%. Plan: Continue prednisone 40 mg a day, day 4 of steroids. Continue levalbuterol and ipratropium nebulizers q.6 hours. Continue guaifenesin 1200 mg p.o. b.i.d.. Continue Daliresp 500 q.day. Patient is on ceftriaxone and azithromycin both day 4 for possible Pneumonia-bronchitis and will continue today. Goal saturation 90-94%, patient is reluctant to turn his oxygen down and gets anxious when we talk about it. Respiratory pathogen panel pending. Regarding his noninvasive ventilation and 3 L bleed in his overnight oximetry is good. Will continue. 01/13/25: Patient told me he did well yesterday through the day told me he was 35-40% back to his normal. The patient puts on and off his home noninvasive ventilator and usually has his oxygen next to him. Today he took his home noninvasive ventilator off of him but his oxygen had been removed from his bedside and he went into respiratory distress with saturations of 68%. He is now on 4 L nasal cannula saturations 100% and improving back to his baseline. He still has dyspnea on exertion with minimal activity. White blood cell count 7.6, creatinine 0.69. Weight today is 82.5. Plan: Continue prednisone 40 a day, day 5 of steroids. Continue levalbuterol and ipratropium nebulizers q.6 hours, guaifenesin 1200 b.i.d., Daliresp 500 a day. Continue ceftriaxone and azithromycin both day 5 for possible bronchitis. Will discontinue azithromycin after today's dose. Later in day obtained download: Download from 12/15/2024 through 01/13/2025 From [facility]. Patient is on an astral 150 with a respiratory rate of 15, safety tidal volume 500, EPAP 14, pressure support 5, inspiratory time minimum 0.6, inspiratory time maximum 1.0, rise time 200 milliseconds. Usage days greater than or equal to 4 hours is 73%. AHI 1.1, apnea index 1.1, hypopnea index 0.0. Median leak 2.5, 95th percentile leak 25.2 median tidal volume 484. Median respiratory rate 20. Median minute ventilation 10.0. Median alveolar ventilation 7.8. I interpret this download as good compliance, adequate pressures and low leak. 01/14/2025: Respiratory pathogen panel collected on 01/11 returned today as positive for metapneumovirus. Overall the patient tells me he still has some shortness of breath, chest tightness and phlegm production although he has improved. States he is 60% back to his normal. He is afebrile. Whit blood cell count 7.6, creatinine 0.69. Is currently on 4 L nasal cannula oxygen. He has no wheezing on exam today for the 1st day. Plan: Metapneumovirus likely explain COPD exacerbation. He has received prednisone 40 a day today, day 6 of steroids. Will continue levalbuterol and ipratropium Q 6 hours, guaifenesin 1200 b.i.d., Daliresp 500 a day and azithromycin Saturday and Saturday. He is chronically on 5-10 mg of steroids a day and I will decrease him tomorrow to 10 mg of Prednisone. Goal saturation 90-94%. 01/15/25: Overall the patient tells me he is improving. He is sitting up on the side of the bed today. Says he is feeling 75-80% back to his normal and moving more air. Still has shortness of breath and dyspnea on exertion. He is afebrile. White blood cell count 9.2, creatinine 0.75. Currently on 4 L with saturations 100%. Patient used his home noninvasive ventilator with 4 L bleed in last night and said that he did well and slept well. Feels he may be able to go home tomorrow. Prednisone 10 today. per last pulmonary office visit note on 08/06/2024: Herrera wasn't covered. He is taking ipratropium and albuterol neb PRN. Continue Breo 100 1inh daily, rinse and spit; Daliresp 500mcg daily, azithromycin 500 MWF; prednisone 5mg daily. Discussed low dose Spiriva alternative to iprat if COPD symptoms increase. He defers at this time, will let us know if he would like to try Spiriva. If patient remains clinically stable may be discharged on 01/16/2025 on these pulmonary medications: Breo Ellipta 100 at 1 inhalation a day Prednisone 10 mg a day Azithromycin 500 mg p.o. Saturday and Saturday Daliresp 500 mcg a day ipratropium 0.5 mg nebs q.4 hours p.r.n. shortness of breath or wheezing Levalbuterol 0.63 nebs q.4 hours p.r.n. shortness of breath or wheezing albuterol 2 puffs q.4 hours p.r.n. shortness of breath or wheezing guaifenesin 1200 mg p.o. q.12 hours. Benzonatate 200 mg p.o. t.i.d. p.r.n. Promethazine DM 6.25-15 mg per 5 mL Q 6 hours p.r.n. cough Flonase 1 spray each nostril twice a day p.r.n. nasal congestion. Oxygen at rest and with activity per her formal home O2 assessment which I have ordered for today. When he naps or sleeps: Noninvasive ventilation with the astral 50 with a respiratory rate of 15, safety tidal volume 500, EPAP 14, pressure support 5, inspiratory time minimum 0.6, inspiratory time maximum 1.0, rise time 200 milliseconds and 3 L bleed in. Discussed with Dr. Taylor. Will follow with you. (2) Bronchitis due to human metapneumovirus (hMPV): Code(s): J40 - Bronchitis, not specified as acute or chronic; B97.81 - Human metapneumovirus as the cause of diseases classified elsewhere Status: Acute Assessment and Plan: 01/14/25: Respiratory pathogen panel collected on 01/11 returned today as positive for metapneumovirus. Plan: Chest x-ray today shows no focal infiltrates. Treatment for metapneumovirus is supportive. Will decrease his steroids as above tp 10 mg on 01/15. 01/15/25: Patient continues to improve. Continue treatment as above. Subjective Date/time seen: 01/15/25 11:53 Interval history: 01/10/25: New pulmonary consult Chief complaint: COPD exacerbation, Acute on chronic resp failure Narrative: A 64-year-old male with end-stage COPD, FEV1 in the range of 30% predicted, is well known to Pulmonary Services from previous hospitalizations and outpatient follow-ups. He has chronic hypoxemic respiratory failure, requiring continuous home supplemental oxygen At 3 L nasal cannula at rest, with activity and 3 L at night with his home ventilator. His advanced COPD includes lung hyperinflation, and he has undergone Williams valve placement, resulting in the collapse of the right upper lobe to alleviate chronic shortness of breath. His maintenance regimen consists of bronchodilators, short-acting bronchodilators, and medications for frequent exacerbations, such as Zithromax, Daliresp, and prednisone 5 mg daily. He was last seen in the pulmonary clinic about six months ago. Over the past few years, he has attended pulmonary rehab with significant improvements in exercise capacity and weight loss. From last Pulmonary office visit note 08/06/2024: Andrealri wasn't covered. He is taking ipratropium and albuterol neb PRN. Continue Breo 100 1inh daily, rinse and spit; Daliresp 500mcg daily, azithromycin 500 MWF; prednisone 5mg daily. Discussed low dose Spiriva alternative to ipratroprium if COPD symptoms increase. He defers at this time, will let us know if he would like to try Spiriva. The patient presented with a one-day history of shortness of breath and tachycardia during activities. He reported that his home pulse oximetry showed stable oxygen levels (95-96%) but a pulse rate around 150 bpm. He had mild coughing with light yellow sputum, but no fever, chills, hemoptysis, chest pain, or lower extremity edema. His was recently diagnosed with pneumonia. In the ER, a chest X-ray suggested a small right pleural effusion, with no new infiltrates. ABGs showed no significant hypercapnic respiratory failure, 7.35/43/105 on 5 L nasal cannula, and BNP, D-dimers, and WBC were not elevated. He has been receiving antibiotics, IV steroids, and short-acting bronchodilators for a COPD exacerbation, with some improvement in his respiratory status over the past 24 hours. 01/11/2025: Patient tells me that his breathing is about the same. He states he has 15% back to his normal. He says his heart rate is better. Currently patient is on 4 L nasal cannula saturations 100%. He refuses to allow me to decrease to 3 L at this point because he says he is anxious when it gets turned down. tolerate his home astral with 3 L bleed in. 01/12/25: Patient states he is slowly getting better. Today he says he is 25% back to normal. He still has wheezing, shortness of breath at rest and dyspnea on exertion with any activity. He is afebrile. His weight today is 83.5 and cumulative he is +1.7 L since admission. Patient had an overnight oximetry on his home astral with 3 L bleed in with recording duration of 5 hours and 33 minutes. Average saturation 96%. Low saturation 89%. Time with saturation less than or equal to 88% was 0 minutes. Oxygen desaturation index 0.4. Patient is currently on 4 L nasal cannula saturations 100%. 01/13/25: Patient told me he did well yesterday through the day told me he was 35-40% back to his normal. The patient puts on and off his home noninvasive ventilator and usually has his oxygen next to him. Today he took his home noninvasive ventilator off of him but his oxygen had been removed from his bedside and he went into respiratory distress with saturations of 68%. He is now on 4 L nasal cannula saturations 100% and improving back to his baseline. He still has dyspnea on exertion with minimal activity. White blood cell count 7.6, creatinine 0.69. Weight today is 82.5. 01/14/2025: Respiratory pathogen panel collected on 01/11 returned today as positive for metapneumovirus. Overall the patient tells me he still has some shortness of breath, chest tightness and phlegm production although he has improved. States he is 60% back to his normal. He is afebrile. Whit blood cell count 7.6, creatinine 0.69. Is currently on 4 L nasal cannula oxygen. He has no wheezing on exam today for the 1st day. Last day of prednisone 40. 01/15/25: Overall the patient tells me he is improving. He is sitting up on the side of the bed today. Says he is feeling 75-80% back to his normal and moving more air. Still has shortness of breath and dyspnea on exertion. He is afebrile. White blood cell count 9.2, creatinine 0.75. Currently on 4 L with saturations 100%. Patient used his home noninvasive ventilator with 4 L bleed in last night and said that he did well and slept well. Feels he may be able to go home tomorrow. Prednisone 10 today. DATA: 12/12/24: Patient had an overnight oximetry on his home astral with 3 L bleed in with recording duration of 5 hours and 33 minutes. Average saturation 96%. Low saturation 89%. Time with saturation less than or equal to 88% was 0 minutes. 11/27/2024: EXAMINATION: CTA chest PE protocol DATE: 11/27/2024 12:10 INDICATION: Chest pain and dyspnea TECHNIQUE: Computed tomography (CT) pulmonary angiogram of the chest was performed with 100 mL Omnipaque-350 intravenous contrast. Additional 3D reconstructions utilizing coronal maximum intensity projection (MIP) were performed. Automated exposure control and iterative reconstruction technique were employed. The dose-length product was 832.10 mGy-cm. COMPARISON: 02/19/2024 and 02/17/2023 FINDINGS: No pulmonary embolism. Chronic right upper lobe collapse with endobronchial valves in the right upper lobe are segmental bronchi. Chronic mild linear discoid atelectasis/scarring in the bilateral lower lobes, right greater than left. No pneumonia, pulmonary edema, pleural effusion or pneumothorax. Heart size is normal. Atherosclerotic coronary artery calcification is. No pericardial effusion. Thoracic aorta is normal in caliber with no dissection. Multinodular goiter. No pathologically enlarged thoracic lymphadenopathy. A couple 2 mm nonobstructing stones at an upper pole calyx of the right kidney. Mild thoracic spondylosis. IMPRESSION: 1. No pulmonary embolism or other acute cardiopulmonary disease. 2. Moderate emphysema with endobronchial valves in the right upper lobar bronchi with chronic collapse of the right upper lobe. 3. Multinodular goiter. 4. Nonobstructing right nephrolithiasis. LDCT 02/19/24 - chronic complete right upper lobe atelectasis with endobronchial valves present. Moderate emphysema present. There is linear scarring right lower lobe. Chest CTA 02/17/23 - No pulmonary embolus. Moderate emphysema. Chronic right upper lobe collapse with endobronchial valves. Chest CT 11/25/22 - Minimal left basilar atelectasis. Persistent right upper lobe collapse. Endobronchial devices in right upper lobe bronchi. Chest CTA 11/20/22 - No evidence of pulmonary embolus, aortic dissection, or aortic aneurysm. Chronic complete right upper lobe collapse, as seen on prior exam. Minimal emphysema. PFT @ [place] 01/16/19 very severe obstructive abnormality without significant improvement after bronchodilator. Hyperinflation and air trapping noted. DLCO is severely decreased. FEV1 0.74L, 30%. 05/10/22 Echo: EF 55-60%, grade I diastolic dysfunction (E/e' 9). No pulmonary hypertension, estimated pulmonary arterial systolic pressure is 26 mmHg. Review of Systems Review of Systems: All systems reviewed & are unremarkable except as noted in HPI and below (HPI and below) Constitutional: Constitutional: Reports no additional constitutional complaints Eyes: Eyes: Reports no additional eye complaints ENT: Reports system reviewed and no additional complaints, except as documented Cardiovascular: Cardiovascular: Reports no additional cardiovascular complaints Respiratory: Respiratory: Reports no additional respiratory complaints Gastrointestinal: Gastrointestinal: Reports no additional gastrointestinal complaints Musculoskeletal: Musculoskeletal: Reports no additional musculoskeletal complaints Neurologic: Reports system reviewed and no additional complaints, except as documented Psychiatric: Psychiatric: Reports no additional psychiatric complaints Endocrine: Endocrine: Reports no additional endocrine complaints Hematologic/Lymphatic: Hematologic/Lymphatic: Reports no additional hematologic/lymphatic complaints Allergic/Immunologic: Allergic/Immunologic: Reports no additional allergic/immunologic complaints Exam Const: General: cooperative, healthy appearing and comfortable Orientation/consciousness: oriented to person, oriented to place and oriented to time HENMT: Head: normal to inspection Ears: hearing grossly normal bilaterally Eyes: General: appearance normal, both eyes and all related structures Neck: Neck: normal visual inspection Chest: Chest palpation & inspection: normal inspection of the chest Resp: Effort & Inspection: normal respiratory effort and able to speak in complete sentences Auscultation: no crackles, no rales, no rhonchi, wheezes and lung sounds not diminished Other: Mild Bilateral expiratory wheezes Cardio: Jugular venous distension: no JVD GI: Inspection: normal to inspection Skin: General skin exam: normal color Neuro: General: oriented to person, oriented to place and oriented to time Extrem: General: normal to inspection Psych: Appearance: grossly normal Objective Data Vital Signs Vital Signs: Vital Signs - 24 hr 01/14/25 12:00 01/14/25 13:32 01/14/25 13:32 Temperature Pulse Rate 114 H 115 H 115 H Respiratory Rate 20 20 Blood Pressure Pulse Oximetry 98 Oxygen Delivery Nasal Cannula Oxygen Flow Rate 4 01/14/25 13:48 01/14/25 14:00 01/14/25 16:29 Temperature 36.3 C L Pulse Rate 104 H 127 H 115 H Respiratory Rate 20 20 20 Blood Pressure 134/91 H Pulse Oximetry 99 Oxygen Delivery Oxygen Flow Rate 01/14/25 16:47 01/14/25 19:47 01/14/25 19:48 Temperature Pulse Rate 120 H 128 H Respiratory Rate 24 H 20 Blood Pressure Pulse Oximetry 97 Oxygen Delivery Nasal Cannula Oxygen Flow Rate 4 01/14/25 20:00 01/14/25 20:03 01/14/25 21:30 Temperature 35.9 C L Pulse Rate 124 H 104 H Respiratory Rate 20 18 Blood Pressure 136/94 H Pulse Oximetry 97 93 Oxygen Delivery Nasal Cannula Oxygen Flow Rate 4 01/15/25 00:42 01/15/25 04:32 01/15/25 05:10 Temperature 35.9 C L Pulse Rate 127 H 93 116 H Respiratory Rate 20 20 18 Blood Pressure 138/84 Pulse Oximetry 98 Oxygen Delivery Oxygen Flow Rate 01/15/25 07:49 01/15/25 07:49 01/15/25 08:05 Temperature Pulse Rate 111 H 111 H 109 H Respiratory Rate 20 20 20 Blood Pressure Pulse Oximetry 99 Oxygen Delivery Nasal Cannula Oxygen Flow Rate 4 01/15/25 08:35 Temperature Pulse Rate Respiratory Rate Blood Pressure Pulse Oximetry 97 Oxygen Delivery Nasal Cannula Oxygen Flow Rate 4 Intake/Output Intake/Output: Intake & Output 01/12/25 01/13/25 01/14/25 01/15/25 23:59 23:59 23:59 23:59 Intake Total 3847 949 3670 786 Output Total 750 650 300 250 Balance 1060 160 730 536 Meds/Results Medications: Active Medications Generic Name Dose Route Start Last Admin Trade Name Freq PRN Reason Stop Dose Admin Acetaminophen 650 mg 01/09/25 21:09 01/13/25 20:21 Acetaminophen 325 Mg Tablet PO 650 mg Q4H PRN Administration Mild Pain (1-3) or Fever Hydrocodone Bitart/Acetaminophen 1 tab 01/10/25 00:39 01/15/25 08:31 Hydrocodone/Acetaminophen (*Crx) 5-325 Mg Tablet PO 1 tab Q6H PRN Administration Pain 4-6 Al Hydrox/Mg Hydrox/Simethicone 30 ml 01/13/25 15:25 01/14/25 21:26 Mag Hydrox/Al Hydrox/Simeth 30 Ml Udc PO 30 ml Q6H PRN Administration Indigestion Aspirin 81 mg 01/10/25 08:00 01/15/25 08:32 Aspirin 81 Mg Chewable Tablet PO 81 mg DAILY@0800 DAVIAN Administration Azithromycin 500 mg 01/15/25 09:00 01/15/25 08:34 Azithromycin 250 Mg Tablet PO 500 mg [email or web address] DAVIAN Administration Benzonatate 200 mg 01/10/25 00:52 01/11/25 09:46 Benzonatate 100 Mg Capsule PO 200 mg TID PRN Administration cough Buspirone HCl 10 mg 01/12/25 09:00 01/15/25 08:32 Buspirone Hcl 5 Mg Tablet PO 10 mg DAILY DAVIAN Administration Dextrose 12.5 gm 01/09/25 21:09 Dextrose 50% 25 Gm/50 Ml Syringe IV PUSH PRN PRN Hypoglycemia Protocol Docusate Sodium 100 mg 01/15/25 07:29 01/15/25 08:31 Docusate Sodium 100 Mg Capsule PO 100 mg Q12H PRN Administration Constipation Enoxaparin Sodium 40 mg 01/10/25 12:45 01/15/25 08:31 Enoxaparin 40 Mg/0.4 Ml Syringe SUB-Q 40 mg DAILY DAVIAN Administration Fluticasone Propionate 1 spray 01/10/25 00:40 01/15/25 11:47 Fluticasone Propionate 0.05% Na Spr 16 Gm Btl (*Bkc) NASAL 1 spray BID PRN Administration ALLERGIES Glucagon 1 mg 01/09/25 21:09 Glucagon For Inj 1 Mg Vial IM PRN PRN Hypoglycemia Protocol Glucose 15 gm 01/09/25 21:09 Glucose Oral Gel 15 Gm Of Glucse In 37.5 Gm Tube PO PRN PRN Hypoglycemia Protocol Guaifenesin 1,200 mg 01/10/25 09:00 01/15/25 08:32 Guaifenesin 12 Hr 600 Mg Tabcr PO 1,200 mg Q12HR DAVIAN Administration Hydroxyzine HCl 25 mg 01/10/25 00:39 01/15/25 08:31 Hydroxyzine Hcl 25 Mg Tablet PO 25 mg TID PRN Administration anxiety Dextrose 1,000 mls @ 100 mls/hr 01/09/25 21:09 Dextrose 5% 1,000 Ml IVPB PRN PRN Hypoglycemia Protocol Ipratropium Delta 0.5 mg 01/14/25 13:10 01/15/25 07:44 Ipratropium Br 0.02% Inh Soln 0.5 Mg/2.5 Ml Vial INHALATION 0.5 mg Q4HRT DAVIAN Administration Latanoprost 1 drop 01/10/25 21:00 01/14/25 21:22 Latanoprost 0.005% Op Soln 2.5 Ml Btl EACH EYE Not Given HS DAVIAN Levalbuterol HCl 0.63 mg 01/14/25 13:10 01/15/25 07:44 Levalbuterol Neb 1.25 Mg/3 Ml INHALATION 0.63 mg Q4HRT DAVIAN Administration Melatonin 10 mg 01/10/25 21:00 01/14/25 21:20 Melatonin 5 Mg Tablet PO 10 mg HS DAVIAN Administration Melatonin 5 mg 01/10/25 11:53 Melatonin 5 Mg Tablet PO HS PRN sleep Mupirocin 1 applic 01/10/25 11:53 01/15/25 11:47 Mupirocin 2% Oint 22 Gm Tube TOPICAL 1 applic BID PRN Administration dry nasal passages Pantoprazole Sodium 40 mg 01/10/25 09:00 01/15/25 08:32 Pantoprazole 40 Mg Tablet PO 40 mg QAM DAVIAN Administration Polyethylene Glycol 17 gm 01/10/25 11:55 01/10/25 12:24 Polyethylene Glycol 3350 17 Gm Powd.Pack PO 17 gm QAM PRN Administration Constipation Prednisone 10 mg 01/15/25 08:00 01/15/25 08:32 Prednisone 10 Mg Tablet PO 10 mg DAILY@0800 DAVIAN Administration Roflumilast 500 mcg 01/10/25 09:00 01/15/25 08:32 Roflumilast 500 Mcg Tablet BY MOUTH 500 mcg DAILY DAVIAN Administration Radiology Results: ITS Impressions Chest X-Ray 01/14/25 09:18 IMPRESSION: 1. 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 No acute cardiopulmonary disease. Labs Labs: Laboratory Results - last 24 hr 01/15/25 05:35 WBC 9.2 RBC 4.38 L Hgb 13.6 L Hct 41.9 L MCV 95.7 MCH 31.1 MCHC 32.5 RDW 13.0 Plt Count 387 H MPV 10.1 Immature Gran % (Auto) 0.7 H Neut % (Auto) 66.1 Lymph % (Auto) 23.9 Pierce % (Auto) 8.5 Eos % (Auto) 0.5 Baso % (Auto) 0.3 Lymph # (Auto) 2.21 Pierce # (Auto) 0.8 H Eos # (Auto) 0.1 Baso # (Auto) 0.0 Abs Immat Gran (auto) 0.06 H Absolute Neuts (auto) 6.1 Absolute Nucleated RBC 0.000 Nucleated RBC % 0.0 Sodium 141 Potassium 3.2 L Chloride 101 Carbon Dioxide 34 H Anion Gap 6 BUN 22 H Creatinine 0.74 Estim Creat Clear Calc 87 Estimated GFR > 60 Glucose 139 H Calcium 9.1 Total Bilirubin 0.6 AST 22 ALT 25 Alkaline Phosphatase 72 Total Protein 7.0 Albumin 4.1
--- NOTE | 2025-01-15 14:08 | HOMEO2EVAL ---
Evaluation was performed at [facility] Home Oxygen Evaluation RC: Home Oxygen (O2) Evaluation Start: 01/15/25 12:15 Freq: ONCE Status: Active Protocol: RPE Activity Type Activity Date Activity User E-sign Co-sign Detail Recorded Client Recorded Date Recorded By Document 01/15/25 13:05 DJO [id number] 01/15/25 14:08 DJO Document 01/15/25 13:10 DJO [id number] 01/15/25 14:08 DJO Document 01/15/25 13:15 DJO [id number] 01/15/25 14:08 DJO Document 01/15/25 13:20 DJO [id number] 01/15/25 14:08 DJO Document 01/15/25 13:25 DJO [id number] 01/15/25 14:08 DJO Document 01/15/25 13:30 DJO [id number] 01/15/25 14:08 DJO Document 01/15/25 13:45 DJO [id number] 01/15/25 14:08 DJO 01/15/25 01/15/25 01/15/25 13:05 13:10 13:15 Home O2 Evaluation [Oxygen] -Test Phase Resting Resting Resting -Oxygen Delivery Room Air Nasal Cannula Nasal Cannula -Oxygen Flow Rate (L/min) 1 2 [Pulse Oximetry] -Pulse Oximetry (90-100 %) 85 L 86 L 88 L [Pulse Rate] -Pulse Rate (60-100 beats/min) 122 H 125 H 123 H [Evaluation] -Activity Tolerance [Charges] -Evaluation Charges O2 Evaluation by Pulmonary 01/15/25 01/15/25 01/15/25 13:20 13:25 13:30 Home O2 Evaluation [Oxygen] -Test Phase Resting Exercise Exercise -Oxygen Delivery Nasal Cannula Nasal Cannula Nasal Cannula -Oxygen Flow Rate (L/min) 3 3 4 [Pulse Oximetry] -Pulse Oximetry (90-100 %) 91 88 L 91 [Pulse Rate] -Pulse Rate (60-100 beats/min) 118 H 148 H 142 H [Evaluation] -Activity Tolerance Good [Charges] -Evaluation Charges 01/15/25 13:45 Home O2 Evaluation [Oxygen] -Test Phase Resting -Oxygen Delivery Nasal Cannula -Oxygen Flow Rate (L/min) 3 [Pulse Oximetry] -Pulse Oximetry (90-100 %) 91 [Pulse Rate] -Pulse Rate (60-100 beats/min) 121 H [Evaluation] -Activity Tolerance [Charges] -Evaluation Charges
--- NOTE | 2025-01-15 14:08 | PCRCNOTE ---
HOME O2 EVAL COMPLETE, NO CHANGES FROM HOME SETTINGS. PT HAS O2 WITH EYAL. HIS TO BRING IN PORTABLE OXYGEN FOR DISCHARGE.
[2025-01-15] MEDS: ACETAMINOPHEN 325 MG TABLET 650 MG PO (17:41)
[2025-01-15] MEDS: polyethylene glycoL 3350 17 GM POWD.PACK PO (17:42)
[2025-01-15] MEDS: MELATONIN 5 MG TABLET 10 MG PO (21:10)
[2025-01-15] MEDS: MELATONIN 5 MG TABLET PO (21:11)
[2025-01-15] MEDS: BENZONATATE 100 MG CAPSULE 200 MG PO (21:11)
[2025-01-15] MEDS: LATANOPROST 0.005% OP SOLN 2.5 ML BTL 1 DROP EACH EYE (21:50)
[2025-01-16] VITALS (11 sets, daily range): BP systolic 132–134; BP diastolic 77–89; PULSE 98–117; RESP 19–20; TEMP 35.9–36.3; O2SAT 96–100
[2025-01-16] MEDS: IPRATROPIUM BR 0.02% INH SOLN 0.5 MG/2.5 ML VIAL INHALATION ×4 (00:20→11:43)
[2025-01-16] MEDS: LEVALBUTEROL NEB 1.25 MG/3 ML 0.63 MG INHALATION ×4 (00:20→11:43)
[2025-01-16 05:54] LABS: Basophils Percent Auto 0.4 % (0.2-1.2); Eosinophils Absolute Auto 0.1 K/mm3 (0-0.3); Eosinophils Percent Auto 1.9 % (0-4.4); Hematocrit 39.5 % (42.0-52.0); Hemoglobin 12.4 g/dL (14.0-18.0); Immature Granulocyte Absolute 0.05 K/mm3 (0.00-0.031); Immature Granulocyte Percent A 0.7 % (0-0.5); Lymphocytes Absolute Auto 2.01 K/mm3 (0.9-3.2); Lymphocytes Percent Auto 27.2 % (18.3-44.2); Mean Corpuscular HGB Conc 31.4 g/dl (32-36); Mean Corpuscular Hemoglobin 31.2 pg (26-34); Mean Corpuscular Volume 99.2 fl (80-100); Mean Platelet Volume 10.3 fl (7.4-10.4); Monocytes Absolute Auto 0.8 K/mm3 (0.1-0.6); Monocytes Percent Auto 10.7 % (2.6-8.5); Neutrophils Absolute Auto 4.4 K/mm3 (1.3-6.7); Neutrophils Percent Auto 59.1 % (45.5-73.1); Platelet Count Result 335 k/mm3 (150-375); Red Blood Count 3.98 M/mm3 (4.6-6.20); Red Cell Distribution Width 13.3 % (11.5-14.5); White Blood Count 7.4 K/mm3 (4.5-10.0)
[2025-01-16 06:02] LABS: Alanine Aminotransferase 22 U/L (6-50); Albumin Level 3.8 g/dL (3.5-5.1); Alkaline Phosphatase 58 U/L (38-126); Anion Gap 5 mmol/L (4-12); Aspartate Amino Transferase 19 U/L (17-59); Bilirubin,Total 0.4 mg/dL (0.2-1.3); Blood Urea Nitrogen 24 mg/dL (9-20); Calcium 8.8 mg/dL (8.4-10.2); Carbon Dioxide 35 mmol/L (22-30); Chloride 102 mmol/L (98-107); Estimated CRCL calculation 79 ml/min; Estimated Glomerular Filt Rate > 60; Glucose 113 mg/dL (65-110); Potassium 3.3 mmol/L (3.4-5.0); Sodium 142 mmol/L (137-145)
[2025-01-16] MEDS: ENOXAPARIN 40 MG/0.4 ML SYRINGE SUB-Q (09:12)
[2025-01-16] MEDS: ASPIRIN 81 MG CHEWABLE TABLET PO (09:13)
[2025-01-16] MEDS: ROFLUMILAST 500 MCG TABLET BY MOUTH (09:13)
[2025-01-16] MEDS: busPIRone HCL 5 MG TABLET 10 MG PO (09:13)
[2025-01-16] MEDS: guaiFENesin 12 HR 600 MG TABCR 1200 MG PO (09:13)
[2025-01-16] MEDS: predniSONE 10 MG TABLET PO (09:13)
[2025-01-16] MEDS: PANTOPRAZOLE 40 MG TABLET PO (09:14)
[2025-01-16] MEDS: FLUTICASONE PROPIONATE 0.05% NA SPR 16 GM BTL (*BKC) 1 SPRAY NASAL (09:19)
[2025-01-16] MEDS: MUPIROCIN 2% OINT 22 GM TUBE 1 APPLIC TOPICAL (09:19)
[2025-01-16] MEDS: hydrOXYzine HCL 25 MG TABLET PO ×2 (09:20→14:06)
[2025-01-16] MEDS: HYDROcodone/acetaminophen (*CRX) 5-325 MG TABLET 1 TAB PO (09:20)
--- NOTE | 2025-01-16 12:43 | P.DS_ITS ---
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 Chest x-ray showing significant emphysematous changes with possible small right sided pleural effusion * Pulmonology consulted * Continue breathing treatments q.6 hour, Mucinex and Roflumilast * Full respiratory panel negative except: Positive human metapneumovirus * negative for influenza A and B, RSV, COVID * Continue prednisone 10 mg daily * Continue Tessalon Perles * Continue Azithromycin MWF per pulmonology recommendation * Rocephin completed * follow pulmonary rehab (2) Acute on chronic hypoxic respiratory failure: Code(s): J96.21 - Acute and chronic respiratory failure with hypoxia Status: Acute Assessment and Plan: See above plan of prison CPAP at night (3) Anxiety: Code(s): F41.9 - Anxiety disorder, unspecified Status: Acute Assessment and Plan: stable * BuSpar * Continue hydroxyzine (4) Hypokalemia: Code(s): E87.6 - Hypokalemia Status: Acute DS: Summary Hospital Course Reason for hospitalization: Short of breath Hospital Course: This is a 64-year-old with a significant past medical history end-stage COPD on chronic home O2 3-4 L,advanced emphysema has had a [place] valve placement, hypertension, chronic pain, GERD, anxiety who presented to the hospital with chest tightness and shortness breath workup in hospital included a chest x-ray which showed significant emphysematous changes possible small right-sided pleural effusion. Received 5 days Rocephin and azithromycin and tapering steroid. Azithromycin was changed to Saturday. PCR came back positive for metapneumovirus. Continued levalbuterol and ipratropium Pulmonary team was consulted. Patient gradually getting better.. His breathing is back to baseline. Patient denies any chest pain, abdominal pain, nausea vomiting Will discharge patient home. Follow with cardiac rehab. Time Spent with Patient Time attestation: Total time spent providing and/or coordinating discharge services: Exam Narrative: General: well appearing, appears stated age. mild distress, tachypneic, unable to complete sentences HEENT: normocephalic, atraumatic. Mucous membranes moist. EOMI, PERRLA, bilateral sclera anicteric, no conjunctival injection. Neck supple without JVD, lymphadenopathy, or bruit. Respiratory: mild wheezing Cardiovascular: Regular rate and rhythm, normal S1-S2 upon ascultation. No murmurs, rubs, or clicks. PMI is nondisplaced, capillary refill less than 3 second. Abdomen: Soft, round, no pulsatile masses, nondistended and nontender. No rebound, no guarding. No CVA tenderness, no hepatosplenomegaly. Bowel sounds present to all four quadrants. No high pitch or tinkling sounds, resonant to percussion. Extremities: No cyanosis, clubbing, or edema present. Pulses are palpable 2/2. Active ROM to all four extremities. Neuro: Alert and orientated x 4. PERRLA. Cranial nerves 2-12 intact without focal deficit. Skin: Warm, dry, and intact, without rash, erythema, or lesion. Psych: pleasant, cooperative, normal speech, normal affect, no hallucinations, no dysarthia Const: General: comfortable Other: Well-developed well-nourished, sitting on the side of the bed, appears stated age HENMT: Other: Nasal cannula in place, mucous membranes are tacky, no oral pharyngeal erythema, nasal cannula in place with pursed lip breathing Eyes: Other: Pupils are equal and reactive, no scleral icterus, no conjunctival pallor Neck: Other: No JVD, normal neck circumference Resp: Auscultation: diminished lung sounds Other: end-expiratory wheezing with click from bronchial valve Cardio: Rate: tachycardic Rhythm: regular rhythm Other: Regular rate, regular rhythm, 1+ bilateral radial pedal pulses GI: Other: Soft, nontender, positive bowel sounds Skin: General skin exam: normal color Other: No jaundice, no pallor Neuro: Other: Alert oriented, speech is clear, no facial asymmetry, no localizing neurologic deficits noted during the course of conversation Extrem: Other: No cyanosis, no edema, 5/5 strength bilateral upper and lower extremities Psych: Other: Appropriate mood and affect, pleasant and cooperative, fair judgment and insight DS: Data Data Completed and Pending Labs on day of discharge: Labs from last 24 hours 01/16/25 05:43 WBC 7.4 RBC 3.98 L Hgb 12.4 L Hct 39.5 L MCV 99.2 MCH 31.2 MCHC 31.4 L RDW 13.3 Plt Count 335 MPV 10.3 Immature Gran % (Auto) 0.7 H Neut % (Auto) 59.1 Lymph % (Auto) 27.2 [place] % (Auto) 10.7 H Eos % (Auto) 1.9 Baso % (Auto) 0.4 Lymph # (Auto) 2.01 [place] # (Auto) 0.8 H Eos # (Auto) 0.1 Baso # (Auto) 0.0 Abs Immat Gran (auto) 0.05 H Absolute Neuts (auto) 4.4 Absolute Nucleated RBC 0.000 Nucleated RBC % 0.0 Sodium 142 Potassium 3.3 L Chloride 102 Carbon Dioxide 35 H Anion Gap 5 BUN 24 H Creatinine 0.82 Estim Creat Clear Calc 79 Estimated GFR > 60 Glucose 113 H Calcium 8.8 Total Bilirubin 0.4 AST 19 ALT 22 Alkaline Phosphatase 58 Total Protein 7.0 Albumin 3.8 Discharge Plan Discharge Consulting providers: Pool,Everett Cowan Discharging Clinician: Brandon Taylor Patient Disposition: Home, Self-Care Activity: as tolerated Diet: heart healthy Discharge Instructions: Flonase 1 spray each nostril twice a day p.r.n. nasal congestion. Oxygen at rest and with activity per her formal home O2 assessment . When he naps or sleeps: Noninvasive ventilation with the astral 50 with a respiratory rate of 15, safety tidal volume 500, EPAP 14, pressure support 5, inspiratory time minimum 0.6, inspiratory time maximum 1.0, rise time 200 milliseconds and 3 L bleed in. Follow-up with Pulmonary and PCP as outpatient Patient Instructions: Antibiotic Form Patient Language: Danish Stand Alone Forms: General Discharge Information Follow-up/Referrals: Bentley Ham MD [Physician] - Century,Kiki Hendrix NP [Primary Care Provider] - 1 Week Discharge Medications: New prednisone 10 mg Tablet 10 mg PO DAILY@0800 Qty: 30 0RF levalbuterol HCl 1.25 mg/3 mL Solution For Nebulization 0.63 mg inhalation Q4HRT Qty: 90 0RF Continued fluticasone furoate-vilanterol [Breo Ellipta] 100-25 mcg/dose blister with d evice 1 inh inhalation Q24H benzonatate 200 mg capsule 200 mg PO TID PRN (Reason: cough) Qty: 60 2RF hydrocodone-acetaminophen 5-325 mg Tablet 1 tablet PO Q6H PRN (Reason: Pain) latanoprost 0.005 % drops 1 drp EACH EYE HS aspirin [Children's Aspirin] 81 mg Tablet,Chewable 81 mg PO DAILY@0800 30 Days Qty: 30 0RF omeprazole 20 mg capsule,delayed release(DR/EC) 20 mg PO DAILY buspirone 5 mg tablet 5 mg PO DAILY mupirocin 2 % ointment 1 applic topical BID PRN (Reason: dry nasal passages) Rx Instructions: apply to nares docusate sodium [Colace] 100 mg capsule 100 mg PO DAILY melatonin 5 mg tablet 5 mg PO HS PRN (Reason: sleep) hydroxyzine HCl 25 mg tablet 25 mg PO TID PRN (Reason: anxiety) guaifenesin [Mucus Relief ER] 600 mg Tablet Extended Release 12hr 1,200 mg PO Q12HR Qty: 30 0RF albuterol sulfate 2.5 mg /3 mL (0.083 %) solution for nebulization 2.5 mg inhalation Q6H PRN (Reason: Shortness Of Breath Or Wheezing) Qty: 360 5RF ipratropium bromide 0.02 % solution 2.5 ml inhalation Q6H PRN (Reason: shortness of breath or wheezing) Qty: 300 5RF roflumilast 500 mcg tablet See Rx Instructions .ROUTE .COMPLEX Qty: 30 11RF Dose Instruction: TAKE 1 TABLET BY MOUTH DAILY Rx Instructions: TAKE 1 TABLET BY MOUTH DAILY albuterol sulfate 90 mcg/actuation HFA aerosol inhaler 1 - 2 puff inhalation Q4-6H PRN (Reason: shortness of breath or wheezing) Qty: 8.5 3RF fluticasone propionate 50 mcg/actuation spray,suspension See Rx Instructions .ROUTE .COMPLEX Qty: 16 10RF Dose Instruction: INSTILL ONE (1) SPRAY IN EACH NOSTRIL TWICE DAILY NEEDED Rx Instructions: INSTILL ONE (1) SPRAY IN EACH NOSTRIL TWICE DAILY NEEDED promethazine-DM 6.25-15 mg/5 mL syrup 5 ml PO Q6H PRN (Reason: cough) Qty: 118 1RF Rx Instructions: TAKE 5ML'S BY MOUTH EVERY 6 HOURS NEEDED FOR COUGH DIRECTED azithromycin 500 mg tablet See Rx Instructions .ROUTE .COMPLEX Qty: 30 5RF Dose Instruction: TAKE 1 TABLET BY MOUTH ON MONDAYS, WEDNESDAYS, AND FRIDAYS. Rx Instructions: TAKE 1 TABLET BY MOUTH ON MONDAYS, WEDNESDAYS, AND FRIDAYS. Discontinued prednisone 5 mg tablet 5 mg PO DAILY Qty: 30 5RF Other Ambulatory Orders: Cardiac Rehabilitation Referral (Routine) Timeframe: 1 Day Location: Determined by Patient Ordered By: Brandon Taylor OT Outpatient Eval and Treat (ONCE) Timeframe: 20250214 Location: Determined by Patient Ordered By: Brandon Taylor PT Outpatient Eval and Treat (ONCE) Timeframe: 20250214 Location: Determined by Patient Ordered By: Brandon Taylor Date of admission: 01/11/25 13:54 Primary Care Provider: Gaurav,Kiki Hendrix Admitting Provider: Brittney Childers Attending physician on admission: Brandon Taylor Condition: Stable Quality VTE Prophylaxis VTE prophylaxis: pharmacologic ordered (Lovenox 40 mg subQ daily.)
[2025-01-16] MEDS: ACETAMINOPHEN 325 MG TABLET 650 MG PO (13:06)
--- NOTE | 2025-01-16 18:45 | PC.NURSE ---
pt called after he was d/c to inquire about retransmitting a medicine to a different pharmacy. this nurse in chart to retransmit med
== END 2025-01-16 15:30 | disposition home health service (06) | DRG 190 ==
LOC: ANHED 20:55 → ANH3MEDSUR 21:54
PROVIDERS: Emergency Medicine; Internal Medicine Pulmonary Disease; Nurse Practitioner Acute Care; Admitting Provider Internal Medicine; Emergency Provider Physician Assistant; PCP Nurse Practitioner Family; Visit Provider Internal Medicine
DX: J44.1 Chronic obstructive pulmonary disease with (acute) exacerbation (principal); E43 Unspecified severe protein-calorie malnutrition; J96.21 Acute and chronic respiratory failure with hypoxia; J96.22 Acute and chronic respiratory failure with hypercapnia; B97.81 Human metapneumovirus as the cause of diseases classified elsewhere; J44.0 Chronic obstructive pulmonary disease with (acute) lower respiratory infection; J20.9 Acute bronchitis, unspecified; F41.9 Anxiety disorder, unspecified; E87.6 Hypokalemia; I10 Essential (primary) hypertension; K21.9 Gastro-esophageal reflux disease without esophagitis; K44.9 Diaphragmatic hernia without obstruction or gangrene; M19.90 Unspecified osteoarthritis, unspecified site; Z20.822 Contact with and (suspected) exposure to COVID-19; Z99.81 Dependence on supplemental oxygen; Z95.2 Presence of prosthetic heart valve; Z86.711 Personal history of pulmonary embolism; Z86.718 Personal history of other venous thrombosis and embolism; Z98.42 Cataract extraction status, left eye; Z98.41 Cataract extraction status, right eye; Z87.891 Personal history of nicotine dependence
CPT/HCPCS: 36415; 36600; 71045; 71046; 80053; 82375; 82805; 83050; 83690; 83880; 84484; 85018; 85025; 85380; 85610; 85730; 87633; 87637; 93005; 94618; 94640; 94762; 96361; 96365; 96367; 96372; 96375; 96376; 99285; A9270; G0378; J0456; J0696; J1650; J2270; J2919; J3475; J7030; J7512

== ENCOUNTER 2025-02-23 07:25 | Outpatient (CLI) | payer MEDICARE, MEDICAID, SELFPAY ==
--- OUTSIDE RECORDS SUMMARY | 2025-02-23 07:29 | XMS_ITS | Clinical Summary ---
Author Organization [facility] 8 [facility] Address [address] [place] [address] Care Team Providers Care Slicing Machine Operator/Tender Name Role Phone Aristeo Khan MD Primary Care Provider Ravi Queen MD Unavailable Allergies Active Allergy Reactions Criticality Noted Date [...] 06/28/2022 Insomnia secondary to chronic pain 06/28/2022 termination clerk (current) use of opiate analgesic 06/14 Resolved Problems Problem Noted Date Diagnosed Date Resolved Date Chronic pain of right knee 06/28/2022 0 11/13/2023 Encounters Date Type Department Care Team Description 12/01/2024 8:22 AM ROUTE SPECIALIST - 12/01/2024 11:59 PM ROUTE SPECIALIST Hospital Encounter [facility] [address] [place] [address] [address], [address] [place] [address] Natalia Georges NP Lumbar radicular pain (Primary Dx); termination clerk (current) use of opiate analgesic; Primary osteoarthritis [...] staff should administer the PHQ-9) 0 12/01/2024 PHQ-9 Answer Date Recorded PHQ-9 Total Score 1 12/01/2024 Sex and Gender Information Value Date Recorded Sex Assigned at Not on file Legal Sex Male 8:01 PM ROUTE SPECIALIST Gender Identity Not on file Sexual Orientation Not on file Obstetrics History Last Filed Vital Signs Vital Sign Reading Time Taken Comments Blood Pressure 142/82 09/01/2024 9:08 AM ROUTE SPECIALIST Pulse 85 09/01/2024 9:08 AM ROUTE SPECIALIST Temperature 36.9 C (98.5 F) 04/02/2024 12:40 PM CDT Respiratory Rate 22 09/01/2024 9:08 AM ROUTE SPECIALIST Oxygen Saturation 95% 09/01/2024 9:08 AM ROUTE SPECIALIST Inhaled Oxygen Concentration - - Weight 111.1 kg (245 lb) 04/24/2019 10:20 AM CDT Height 172.7 cm (5' 8 ) 04/24/2019 10:20 AM CDT Body Mass Index 37.25 04/24/2019 10:20 AM CDT Plan of Treatment Health Maintenance Due Date Last Done Comments Colon Cancer Screening-Colonoscopy 1960 Hepatitis C Screening 1960 Hepatitis B Screening 01/22/1978 Zoster Vaccine (1 of 2) 01/22/2010 Pneumococcal vaccine 65+ (2 of 2 - PCV) 05/08/2018 05/08/2017 Fall Risk Assessment 05/23/2024 05/23/2023 Covid-19 Vaccine (2023- 5 season) 2024 01/18/2022, 07/08/2021, 01/10/2021 Prostate Cancer Screening-PSA 09/27/2024 09/27/2022 Abdominal Aortic Aneurysm (A AA) Screen 01/22/2025 Well Visit 65+ 01/22/2025 Influenza Vaccine (Season Ended) 2025 07/08/2021, 08/14/2020, 07/14/2019, Additional history exists Depression Screening 12/01/2025 12/01/2024, 09/01/2024, 09/01/2024, Additional [...] Comments PSA SCREEN Routine 09/27/2022 10:21 AM ROUTE SPECIALIST from Last 3 Months or Most Recently Relevant to Health Maintenance Results * PSA screen (09/27/2022 10:21 AM ROUTE SPECIALIST) PSA-Total 0.70 <=5.40 ng/mL TALIB Comment: Interpretive [...] revised 22. Blood 09/27/2022 10:2 1 AM ROUTE SPECIALIST 09/27/2022 10:44 AM ROUTE SPECIALIST Aristeo Khan MD LAB BLOOD ORDERABLES Final Result [facility] [address] [facility] Department [place] [address] from Last 3 Months or Most Recently Relevant to Health Maintenance Insurance MEDICARE [employer] MEDICARE [facility] PLAN IDPA [facility] MEDICARE ADVANTAGE IDPA [facility] MEDICARE [facility] Address: [address] [address] Care Teams Slicing Machine Operator/Tender Relationship Specialty Start Date End Date Aristeo Khan MD [address] [place] [address] PCP - General 06/28/22 Ravi Queen MD [address] [place] [address] DR GUZMÁN [address] [place] [address] Anesthesiologist Pain Management 09/05/22
--- OUTSIDE RECORDS SUMMARY | 2025-02-23 07:29 | XMS_ITS | CONTINUITY OF CARE DOCUMENT ---
Author Name jose juan manzano Address Unknown Organization [facility] Address [address] [facility] [address] [place] [address] Phone [phone] Care Team Providers Care Community Service Aide Name Role Phone Randy Wynne MD Unavailable OLIVIA SAUNDERS MD Unavailable JEAN FINCH MD Unavailable INSURANCE PROVIDERS Payer name Policy type / Coverage type [employer] party ID [employer] Medicaid 1 [id number]
--- OUTSIDE RECORDS SUMMARY | 2025-02-23 07:29 | XMS_ITS | Data Portability ---
Author Organization [facility] Address [address] [place] [address] Care Team Providers Care Aircraft Structural Repairer Name Role Phone JORDAN MOSQUEDA Potato Sorter Assessment No assessment recorded. Plan of Treatment Reminders Order Date Submit Date Provider Last Modified By Organization Details Last Modified Time Details Appointments None recorded. Lab hemoglobin + hematocrit , blood 2019 [facility], [address] [facility], [address], [place], [address], 0 11:29:35 hemoglobin + hematocrit , blood 2019 020 [facility], [facility] Lab Orders, [address], [place], [address], 0 11:29:43 Referral None recorded. Procedures None recorded. Surgeries None recorded. Imaging None recorded. Medication Orders tamsulosin 0.4 mg capsule 2019 020 INTERFACE Not available 0 11:29:16 promethazi ne-DM 6.25 mg-15 mg/5 mL oral syrup 2019 020 INTERFACE Not available 0 11:20:00 Patient TargetsNo targets recorded. Patient Instructions Encounter Date Encounter Id Patient Instructions Last Modified By Organization Details Last Modified Time 06/17/2020 [id number] ER (Refused) Discharge summary STAT labs at [facility] Follow up with GI (today) Follow up with the merchandise appraiser Follow up in 1-2 weeks gris Not available 06/17/2020 11:23:00 He has refused a n ER evaluation, Me, myself, I feel good gris Not available 06/17/2020 11:22:28 07/15/2020 [id number] Discharge summar y and lab results from gris Not available 07/15/2020 11:35:23 Reason for Referral None Reported. Results Created Date Observation Date Name Description Value Unit Range Abnormal Flag Note LastModifiedBy Organization Detail LastModifiedTime 11/11/19 20 11/11/2019 XR, knee, 3 view No observ ation record ed. [facility] (Imaging) [address] [place], [address], 11/18/2019 10:38:18 12/07/19 20 12/07/2019 LDCT, chest , for lung cance r scree kevin No observ ation record ed. [address] (Imaging) [address] [place], [address], 12/15/2019 14:52:56 06/02/20 20 06/01/2020 XR, chest No observ ation record ed[facility] ([facility] [address] [place], [address], 06/17/2020 11:17:19 06/02/20 20 06/02/2020 CT, neck, soft tissu e, w/wo contr ast No observ ation record ed. [facility] (Im[facility]) [address] [place], [address], 06/17/2020 11:17:19 06/02/20 20 06/02/2020 CT, neck, soft tissu e, w/o contr ast No observ ation record ed. [facility] [address], [place], [address], 06/17/2020 11:17:19 06/03/20 20 06/03/2020 opal martinez ow study No observ ation record ed. [facility] ([facility]) [address] [place], [address], 06/17/2020 11:17:19 06/03/20 20 06/03/2020 XR, chest No observ ation record ed. [facility] (Im[facility]) [address] [place], [address], 06/17/2020 11:17:19 06/05/20 20 06/05/2020 CT, chest , w/o contr ast No observ ation record ed. [facility] (Imaging) [address] [place], [address], 06/17/2020 11:17:19 Result Notes None recorded. Problems Name Problem SNOMED Code Status Onset Date Resolution Date Notes Provider Name and Address Organization Details Recorded Time Allergic rhinitis 67898146 Active 2017 Katlyn Barrett MD Attn: Accountin g,[address] [facility], [place], [address], [place] [facility] 0 11:06:48 Abnormal weight gain 567790615 Active 2018 Katlyn Barrett MD Attn: Accountin g,[address] [facility], [place], [address], [place] [facility] 0 11:06:48 Heartburn 41570206 Active Katlyn Barrett MD Attn: Accountin g,[address] [facility], [place], [address], [place] [facility] 0 11:06:48 Impotence Active Katlyn Barrett MD Attn: Accountin g,[address] [facility], [place], [address], [place] [facility] 0 11:06:48 Cough 59843749 Active Katlyn Barrett MD Attn: Accountin g,[address] [facility], [place], [address], [place] [facility] 0 11:06:48 Chronic lung disease 994212662 Active Katlyn Barrett MD Attn: Accountin g,[address] [facility], [place], [place], [address] [place] [address], [place] [facility] 0 11:06:48 Knee pain Active Katlyn Barrett MD Attn: Accountin g,[address] [facility], [place], [place], [address] [place] [address], [place] [facility] 0 11:06:48 Chondroma lacia of patella 59035318 Active Katlyn Barrett MD Attn: Accountin g,[address] [facility], [place], [place], [address] [place] [address], [place] [facility] 0 11:06:48 Osteoarth ritis of knee 855721086 Active Katlyn Barrett MD Attn: Accountin g,[address] [place], [place], [address] [place] [address], [place] [facility] 0 11:06:48 Pain of joint 64304770 Active Katlyn Barrett MD Attn: Accountin g,[address] [place], [place], [address] [place] [address], [place] [facility] 0 11:06:48 Muscle pain 42356134 Active Katlyn Barrett MD Attn: Accountin g,[address] [place], [place], [address] [place] [address], [place] [facility] 0 11:06:48 Chronic obstructi ve pulmonary disease 93355331 Active Elaine Jain MD Attn: Accountin g,[address] [place], [place], [address] [place] [address], [place] [facility] 6 14:54:50 Tobacco user 741281763 Active Katlyn Barrett MD Attn: Accountin g,[address] [place], [place], [address] [place] [address], [place] [facility] 0 11:06:48 Low back pain 754141889 Active Katlyn Barrett MD Attn: Nela g,[address] [place], [place], [address] [place] [address], [place] [facility] 0 11:06:48 Paresthes ia 49543578 Active Katlyn Barrett MD Attn: Nela ye,[address] [facility], [place], [address], [place] [facility] 0 11:06:48 Structura l and functiona l abnormali ties of the kidney Completed 01/19/2020 Elaine Jain MD Attn: Nela ye,[address] [facility], [place], [address], [place] [facility] 0 10:39:12 Kidney lesion 926049592995 00 Completed 01/19/2020 Elaine Jain MD Attn: Accountjose e ye,[address] [facility], [place], [address], [place] [facility] 0 10:39:00 Disorder of skin and/or subcutane ous tissue 45657192 Active Katlyn Barrett MD Attn: Nela ye,[address] [facility], [place], [address], [place] [facility] 0 11:06:48 Simple renal cyst 67331477 Active Katlyn Barrett MD Attn: Nela ye,[address] [facility], [place], [address], [place] [facility] 0 11:06:48 Mass of subcutane ous tissue of back 110803917110 103 Active 2015 Katlyn Barrett MD Attn: Nela ye,[address] [facility], [place], [address], [place] [facility] 0 11:06:48 Lower urinary tract symptoms due to benign prostatic hypertrop hy 177882363823 01 Active 2016 Katlyn Barrett MD Attn: Nela ye,[address] [facility], [place], [address], [place] [facility] 0 11:06:48 Constipat ion 02128901 Active 2016 Katlyn Barrett MD Attn: Chadjose e ye,[address] [place], [address], [place] [facility] 0 11:06:48 Problem Notes None recorded. Procedures Surgical History Date Name Laterality Status Provider Name and Address Organization Details Recorded Time 5 Joint Injection completed Ramy Yarbrough [facility] 05/23/2015 15:07:30 Imaging Results Imaging Date Name Status LastModified by Organiz ation Details LastModified Time 11/11/2019 XR, knee, 3 view completed [facility] (Imaging) [address] [place], [address], 11/18/2019 10:38:18 12/07/2019 LDCT, chest, for lung cancer screening completed [address] (Imaging) [address] [place], [address], 12/15/2019 14:52:56 06/01/2020 XR, chest completed [facility] (Imaging) [address] [place], [address], 06/17/2020 11:17:19 06/02/2020 CT, neck, soft tissue, w/wo contrast completed [facility] ([facility] [address] [place], [address], 06/17/2020 11:17:19 06/02/2020 CT, neck, soft tissue, w/o contrast completed [facility] [address], [place], [address], 06/17/2020 11:17:19 06/03/2020 barium swallow study completed [facility] ([facility]) [address] [place], [address], 06/17/2020 11:17:19 06/03/2020 XR, chest completed [facility] (Imaging) [address] [place], [address], 06/17/2020 11:17:19 06/05/2020 CT, chest, w/o contrast completed [facility] [address] [place], [address], 06/17/2020 11:17:19 Procedure Notes None recorded. Medical Equipment None Reported. Allergies Allergen ID Allergen Name Allergen Category Reaction Reaction Severity Criticality Documentation Date Start Date Code Code System Note Provider Name and Address Organization Details Recorded Time 33218 oxycodone medicatio n itching moderate Not available 12/02/2015 0575 RxNorm Juaquin Gaspar MD [address] [place], [address], [facility] 6 11:11:56 Medications Name [...] Updated DateTime 9 175.26 cm 37.5 kg/m2 308839. 46 g 98.1 [degF] 94 % 94 % 84 /min 122 mm[Hg] 84 mm[Hg] Emilia Hebert MA [facility] 9 10:50:24 Date Recorded Body height Provider Name an d Address Organization Details Last Updated DateTime 01/19/2020 175.26 cm Emilia Hebert MA [facility] 0 09:40:18 Date Recorded Body height Provider Name an d Address Organization Details Last Updated DateTime 05/19/2020 175.26 cm Emilia Hebert MA [facility] 0 09:47:41 Date Recorded Body height Provider Name an d Address Organization Details Last Updated DateTime 06/17/2020 175.26 cm Lalita Buckner MA [facility] 06/17/20 20 10:01:54 Date Recorded Body height Provider Name an d Address Organization Details Last Updated DateTime 07/15/2020 175.26 cm Jenna Molina MA [facility] 020 10:52:41 Social History Question Answer Notes LastModified by Organizat ion Details LastModified Time Tobacco Smoking Status Former Smoker Quit 12/24/2018 Emilia Hebert MA null, [facility] 04/30/2019 10:31:18 What Is Your Level Of Caffeine Consumption? [...] not available 06/27/2017 Sex: Unknown Functional Status Question Answer Note LastModified by Organization D etails LastModified Time What is your level of alcohol consumption? Moderate Information not available 01/04/2015 Mental Status None recorded. Family History Relationship [...] SNOMED-CT Code Diagnosis ICD10 Code Diagnosis Note [id number] Elaine Jain MD [facility] (Adult Med) [address] [place] [address] 09/27/2014 15:04:00 09/27/2014 17:04:25 Chronic obstructive pulmonary disease 25863056 Tobacco user 470100819 Low back pain 576703007 Pain of joint 82706163 Paresthesia 95785772 [id number] Elaine Jain MD [facility] (Adult Med) [address] [place] [address] 01/04/2015 14:16:36 01/04/2015 16:04:41 Chronic obstructive pulmonary disease 35143011 Heartburn 78709100 Pain of joint 84284082 Impotence 086858351 [id number] Elaine Jain MD [facility] (Adult Med) [address] [place] [address] 02/03/2015 13:56:33 02/03/2015 14:30:34 Pain of joint 87584544 Chronic ob structive pulmonary disease 30526994 Low back pain 186454019 [id number] Elaine Jain MD [facility] (Adult Med) [address] [place] [address] 02/14/2015 10:05:33 02/14/2015 15:25:14 Cough 17713823 Tobacco user 961668730 Chronic lung disease 188140690 [id number] Elaine Jain MD [facility] (Adult Med) [address] [place] [address] 04/19/2015 12:53:17 04/20/2015 10:06:04 Chronic lung disease 363666963 Low back pain 875890610 Tobacco user 474021990 Heartburn 34503252 [id number] Elaine Jain MD [facility] (Adult Med) [address] [place] [address] 05/17/2015 16:01:13 05/19/2015 11:34:27 Knee pain 53021955 Chronic ob structive pulmonary disease 76846635 Paresthesia 11824845 [id number] Juaquin Gaspar MD [facility] [address] [place] [address] 05/23/2015 14:26:20 05/24/2015 14:55:47 Chondromalacia of patella 96297049 Knee pain 22290401 Osteoarthr itis of knee 022200997 [id number] Juaquin Gaspar MD [facility] [address] [place] [address] 06/30/2015 09:28:33 06/30/2015 15:13:52 [id number] Juaquin Gaspar MD [facility] [address] [address] 08/08/2015 09:05:11 08/08/2015 17:10:25 Knee pain 15027416 M25.561 Osteoarthr itis of knee 067532656 M17.11 Chondromal acia of patella 84153549 M22.41 [id number] Elaine Jain MD [facility] (Adult Med) [address] [place] [address] 08/18/2015 14:02:14 08/18/2015 18:09:16 Low back pain 556401567 M54.5 Osteoarthr itis of knee 621204201 M17.9 [id number] Juaquin Gaspar MD [facility] [address] [place] [address] 12/02/2015 10:57:53 12/02/2015 13:22:24 Knee pain 96109067 M25.561 Osteoarthr itis of knee 347345907 M17.11 Chondromal acia of patella 77025509 M22.41 [id number] Elaine Jain MD [facility] (Adult Med) [address] [place] [address] 01/10/2016 14:32:02 01/10/2016 18:23:06 Chondromalacia of patella 17748875 M22.41 Chronic ob structive pulmonary disease 78137885 J44.9 Knee pain 76323779 M25.5 61 Adult heal th examination 031301090 Z00.01 Screening for malignant neoplasm of colon 050125085 Z12.11 [id number] Elaine Jain MD [facility] (Adult Med) [address] [place] [address] 04/24/2016 14:38:44 04/24/2016 16:44:15 Chronic obstructive pulmonary disease 41965404 J44.9 Cough 41806031 R05 Knee pain 99854643 M25.5 61 Kidney lesion 6170280948 9100 N28.9 Disorder o f skin and/or subcutaneous tissue 51927408 L98.9 Left shoulder region. Will observe at present [id number] MD Michelle [facility] (Adult Med) [address] [place] [address] 0 06/05/2016 13:20:16 06/05/2016 18:11:10 Simple renal cyst 19203255 N28.1 Chronic ob structive pulmonary disease 77670434 J44.9 Pain of joint 20672197 M 25.50 Osteoarthr itis of knee 924249644 M17.9 [id number] [facility] [address] [place] [address] 10/04/2016 13:14:32 10/04/2016 15:06:14 Chronic obstructive pulmonary disease 96902036 J44.9 Tobacco user 649069659 Z 72.0 Cough 92370912 R05 [id number] [facility] [address] [place] [address] 11/14/2016 15:26:51 11/14/2016 17:50:37 Chronic obstructive pulmonary disease 30720592 J44.9 Osteoarthr itis of knee 430479975 M17.9 Low back pain 871821523 M54.5 [id number] MD Michlele Goodwin (Adult Med) [address] [place] [address] 01/17/2017 13:02:09 01/17/2017 14:50:29 Chronic obstructive pulmonary disease 97165248 J44.9 Osteoarthr itis of knee 486094362 M17.9 Low back pain 056416243 M54.5 Chondromal acia of patella 98461682 M22.41 Cough 31509238 R05 [id number] Elaine Jain MD [facility] (Adult Med) [address] [place] [address] 04/03/2017 14:05:39 04/17/2017 12:08:04 Chronic obstructive pulmonary disease 22324067 J44.9 Cough 33055113 R05 Impotence 550338324 N52. 9 Osteoarthr itis of knee 691093679 M17.9 [id number] Elaine Jain MD [facility] (Adult Med) [address] [place] [address] 06/27/2017 14:13:46 06/27/2017 16:18:33 Chronic obstructive pulmonary disease 28703016 J44.9 Heartburn 71017103 R12 Lower urin ayaz tract symptoms due to benign prostatic hypertrophy 540043|[id number]|2025-02-23 07:30:00|2025-02-23 07:29:00|XMS_ITS|BKG DAEMON|External Medical Summaries|[id number]|" Clinical Summary Created on: February 23, 2025 Bentley Mesa : 1960 Sex: Male Author Organization [facility] Address [address] [place] [address] Phone Care Team Providers Care Aircraft Structural Repairer Name Role Phone Bentley Kyle MD Primary Care Provider [phone] Allergies Active Allergy Reactions Criticality Noted Date [...] mcg) by mouth daily. 30 Tablet 5 1 Active tamsulosin (FLOMAX) 0.4 mg capsule Take [...] every Saturday, Saturday, and Saturday. 30 Tablet 1 Active Active Problems Problem Noted Date Diagnosed Date Lung nodule Centrilobular emphysema Chronic hypoxemic respiratory failure Glaucoma Chronic respiratory failure with hypoxia and hyp ercapnia Status post bronchoscopy Encounters Date Type Department Care Team Description 02/19/2025 Telephone [facility] Pulmonology [facility] [address] [facility] [address] [place] [address] Carson Pineda MD Wants Appointment from Last 3 Months Immunizations Immunization Administration Dates Next Due (Plexxi)(12 YR UP) COVID-19 VACCINE - EMERGENCY USE AUTHORIZATION, MRNA, [id number](PF) 30 MCG/0.3 ML IM SUSP 01/10/2021 Influenza Seasonal Unspecified Formulation IM Social History Tobacco Use Types Packs/Day Years Used Date Smoking Tobacco: Never Smokeless Tobacco: Never Sex and Gender Information Value Date Recorded Sex Assigned at Not on file Legal Sex Male 3:05 PM TERMINOLOGIST Gender Identity Not on file Sexual Orientation Not on file Last Filed Vital Signs Vital Sign Reading Time Taken Comments Blood Pressure 130/80 11/21/2021 1:06 PM TERMINOLOGIST Pulse 87 11/21/2021 1:06 PM TERMINOLOGIST Temperature 37.2 C (98.9 F) 04/20/2021 11:16 AM CDT Respiratory Rate 18 04/20/2021 3:29 PM CDT Oxygen Saturation 91% 11/21/2021 1:06 PM TERMINOLOGIST 3 L Inhaled Oxygen Concentration - - Weight 116.1 kg (256 lb) 11/21/2021 1:06 PM TERMINOLOGIST Height 175.3 cm (5' 9 ) 11/21/2021 1:06 PM TERMINOLOGIST Body Mass Index 37.8 11/21/2021 1:06 PM TERMINOLOGIST Plan of Treatment Health Maintenance Due Date [...] Insurance MEDICARE PART A AND B MEDICAID [place] Advance Directives For more information, please contact: [phone] * Full Code (Latest Code Status on File) Date Activated Date Inactivated Comments 04/18/2021 12:14 PM 04/20/2021 6:57 PM Care Teams Aircraft Structural Repairer Relationship Specialty Start Date End Date Bentley Kyle MD [address] [place] [phone] PCP - General Internal Medicine 04/18/21 "
--- OUTSIDE RECORDS SUMMARY | 2025-02-23 07:29 | XMS_ITS | Data Portability ---
Author Organization [facility] [place], Main Office Address [address] [place] [address] Care Team Providers Care Burn Table Operator Name Role Phone GUILLAUME ERAZO Primary Care Provider [phone] GUILLAUME ERAZO Referring Provider [phone] Assessment Encounter Date Assessment Date Assessment LastModified by Organization Details LastModified Time 12/22/2024 12/22/2024 I have reconciled the patient's medications post their discharge from inpatient facility. Not available 12/22/2024 14:59:13 Plan of Treatment Reminders Order Date Submit Date Provider Last Modified By Organization Details Last Modified Time Details Appointments Follow Up 15 2024 09:30A Jesu Noalsco NP Not available Not available Not available Lab unlisted lab - CBC study 2024 025 [facility] (Lab), [address] [place], [address], 02/09/2025 09:03:08 CMP, serum or plasma [facility] [address] [place], [address], 02/03/2025 04:55:28 TSH, serum or plasma [address] (Lab), [address] [place], [address], 06/02/2024 10:46:58 T4, free, serum [address] (Lab), [address] [place], [address], 06/02/2024 10:47:09 CBC w/ auto diff [address] (Lab), [address] [place], [address], 06/02/2024 10:46:49 PSA, serum or plasma 2023 024 [facility] (Lab), [address] [place], [address], 03/06/2024 00:11:54 lipid panel, serum 2023 024 [facility] (Lab), [address] [place], [address], 03/06/2024 00:11:55 TSH, serum or plasma [address] (Lab), [address] [place], [address], 03/19/2024 08:05:47 CBC w/ auto diff 2023 024 [facility] (Lab), [address] [place], [address], 03/06/2024 00:11:55 glycohemo globin, total, blood 2023 024 [facility] (Lab), [address] [place], [address], 03/06/2024 00:11:55 CMP, serum or plasma 2023 024 [facility] (Lab), [address] [place], [address], 03/06/2024 00:11:54 Referral occupatio nal therapist referral 2024 025 [facility], [address] [place], [address], 02/10/2025 17:01:41 physical therapist referral 2024 025 [facility], [address] [place], [address], 02/10/2025 17:02:[address] referral - Please call patient to schedule an appointme nt. Thank you. 2023 024 [email or web address] [facility] [address] , [address], [place], [address], 06/30/2024 08:46:[address] referral - Please call patient to schedule an appointme nt. Thank you. 2023 024 [email or web address] [facility] [address] , [address], [place], [address], 04/02/2024 09:31:09 Procedures None recorded. Surgeries None recorded. Imaging CT, chest, w/o contrast - Please call patient to schedule. 2024 025 [facility], [address] [place] [address] , [address], [place], [address], 02/02/2025 14:50:38 Medication Orders prednison e 50 mg tablet 2024 025 [facility] [facility], [address] [place], [place], [id number], 02/02/2025 12:21:00 promethaz ine-DM 6.25 mg-15 mg/5 mL oral syrup 2024 025 [facility] [address] In [facility], [address] [place], [address], 12/22/2024 15:04:11 buspirone 5 mg tablet 2024 025 [place] [facility]15, [address] [place], [place], [id number], 12/22/2024 15:03:13 hydroxyzi ne HCl 25 mg tablet 2024 025 [facility], [address] [place], [place], [id number], 12/22/2024 15:04:35 lorazepam 0.5 mg tablet 2024 025 [email or web address]83248, [address] [place], [place], [id number], 12/22/2024 14:50:36 buspirone 5 mg tablet 2024 025 [place] [facility] [address]10970, [address] [place], [place], [id number], 11/03/2024 15:56:16 Patient TargetsNo targets recorded. Patient Instructions Encounter Date Encounter Id Patient Instructions Last Modified By Organization Details Last Modified Time 03/05/2024 [id number] dementia rating scale-2* [email or web address] Not available 03/05/2024 15:07:17 alcohol misuse* Not available 03/05/2024 15:07:25 depression screening* Not available 03/05/2024 15:07:28 multi-dimensiona l health assessment questionnaire* [email or web address] Not available 03/05/2024 15:07:20 [facility] Plan and Screening Recommendations Advance Directives - [...] Negative [email or web address] Not available 03/05/2024 14:39:26 12/22/2024 [id number] Thank you for yo ur visit to [...] homebound status}} Required Home Health Services: {{none fdc, physical therapy, occupational therapy fdc, physical therapy fdc}} Durable Medical Equipment needed: {{cane walker walke r with seat manual wheelchair bedside commode oxygen}} Billing Guidelines CPT code 35580- Transitional Care Management services with moderate medical decision complexity (uyfe-ib-hrlb visit within 14 days of discharge). CPT code 09116- Transitional Care Management services with high medical decision complexity (bzfv-lp-wjse visit within 7 days of discharge). [email or web address] Not available 12/22/2024 14:41:35 Reason for Referral Neurologist Referral for Hea dache headaches Please call patient to schedule an appointment. Thank you. Referring Physician: Gumaro Harrison [facility], Encounter Date: 03/05/2024 Neurologist Referral for Hea dache recurrent headaches Please call patient to schedule an appointment. Thank you. Referring Physician: Gumaro Harrison [facility], Encounter Date: 06/02/2024 Occupational Therapist Refer ral for Acute exacerbation of chronic obstructive pulmonary disease Referring Physician: Kiki Nolasco [facility], Encounter Date: 02/02/2025 Physical Therapist Referral for Acute exacerbation of chronic obstructive pulmonary disease Referring Physician: Kiki Nolasco [facility], Encounter Date: 02/02/2025 Results Created Date Observation [...] with a follo w-up test. Not Available [address], [address], 02/03/2025 04:55:27 02/03/20 25 02/03/2025 COMPR EHENS MANPREET METAB OLIC PANEL urea nitrogen (BUN) 8 mg/dL 7-25 normal Not Available [facility] [address] [place], [address], 02/03/2025 04:55:27 02/03/20 25 02/03/2025 COMPR EHENS MANPREET METAB OLIC PANEL creatinine 0.71 mg/dL 0.70-1 .35 normal Not Available [facility] [address], [address], 02/03/2025 04:55:27 02/03/20 25 02/03/2025 COMPR EHENS MANPREET METAB OLIC PANEL eGFR 102 mL/mi n/1.7 3m2 > or = 60 normal Not Available [address], [address], 02/03/2025 04:55:27 02/03/20 25 02/03/2025 COMPR EHENS MANPREET METAB OLIC PANEL BUN/creatini ne ratio SEE NOTE: (calc ) 6-22 Not Repor rakan: BUN and Creat inine are withi n refer ence range . Not Available [address], [address], 02/03/2025 04:55:27 02/03/20 25 02/03/2025 COMPR EHENS MANPREET METAB OLIC PANEL sodium 138 mmol/ L 135-14 6 normal Not Available [address], [address], 02/03/2025 04:55:27 02/03/20 25 02/03/2025 COMPR EHENS MANPREET METAB OLIC PANEL potassium 4.5 mmol/ L 3.5-5. 3 normal Not Available [address], [address], 02/03/2025 04:55:27 02/03/20 25 02/03/2025 COMPR EHENS MANPREET METAB OLIC PANEL chloride 101 mmol/ L 98-110 normal Not Available [address], [address], 02/03/2025 04:55:27 02/03/20 25 02/03/2025 COMPR EHENS MANPREET METAB OLIC PANEL carbon dioxide 28 mmol/ L 20-32 normal Not Available [address], [address], 02/03/2025 04:55:27 02/03/20 25 02/03/2025 COMPR EHENS MANPREET METAB OLIC PANEL calcium 9.8 mg/dL 8.6-10 .3 normal Not Available [address] [place], [address], 02/03/2025 04:55:27 02/03/20 25 02/03/2025 COMPR EHENS MANPREET METAB OLIC PANEL protein, total 7.0 g/dL 6.1-8. 1 normal Not Available [address] [address] [place], [address], 02/03/2025 04:55:27 02/03/20 25 02/03/2025 COMPR EHENS MANPREET METAB OLIC PANEL albumin 4.3 g/dL 3.6-5. 1 normal Not Available [address], [address], 02/03/2025 04:55:27 02/03/20 25 02/03/2025 COMPR EHENS MANPREET METAB OLIC PANEL globulin 2.7 g/dL_ (calc ) 1.9-3. 7 normal Not Available [address], [address], 02/03/2025 04:55:27 02/03/20 25 02/03/2025 COMPR EHENS MANPREET METAB OLIC PANEL albumin/glob ulin ratio 1.6 (calc ) 1.0-2. 5 normal Not Available [address], [address], 02/03/2025 04:55:27 02/03/20 25 02/03/2025 COMPR EHENS MANPREET METAB OLIC PANEL bilirubin, total 0.7 mg/dL 0.2-1. 2 normal Not Available [address], [address], 02/03/2025 04:55:27 02/03/20 25 02/03/2025 COMPR EHENS MANPREET METAB OLIC PANEL alkaline phosphatase 69 U/L 35-144 normal Not Available [address] [address] [place], [address], 02/03/2025 04:55:27 02/03/20 25 02/03/2025 COMPR EHENS MANPREET METAB OLIC PANEL AST 15 U/L 10-35 normal Not Available [address], [address], 02/03/2025 04:55:27 02/03/20 25 02/03/2025 COMPR EHENS MANPREET METAB OLIC PANEL ALT 16 U/L 9-46 normal Not Available [address], [address], 02/03/2025 04:55:27 02/03/20 25 02/03/2025 CBC (INCL UDES DIFF/ PLT) white blood cell count 6.3 thous and/u L 3.8-10 .8 normal Not Available [address], [address], 02/03/2025 04:55:29 02/03/20 25 02/03/2025 CBC (INCL UDES DIFF/ PLT) red blood cell count 4.47 craig on/uL 4.20-5 .80 normal Not Available [address], [address], 02/03/2025 04:55:29 02/03/20 25 02/03/2025 CBC (INCL UDES DIFF/ PLT) hemoglobin 13.8 g/dL 13.2-1 7.1 normal Not Available [address], [address], 02/03/2025 04:55:29 02/03/20 25 02/03/2025 CBC (INCL UDES DIFF/ PLT) hematocrit 42.7 % 38.5-5 0.0 normal Not Available [address], [address], 02/03/2025 04:55:29 02/03/20 25 02/03/2025 CBC (INCL UDES DIFF/ PLT) MCV 95.5 fL 80.0-1 00.0 normal Not Available [address], [address], 02/03/2025 04:55:29 02/03/20 25 02/03/2025 CBC (INCL UDES DIFF/ PLT) MCH 30.9 pg 27.0-3 3.0 normal Not Available [address], [address], 02/03/2025 04:55:29 02/03/20 25 02/03/2025 CBC (INCL UDES DIFF/ PLT) MCHC 32.3 g/dL 32.0-3 6.0 normal For adult s, a sligh t decre ase in the calcu lated MCHC value (in the range of 30 to 32 g/dL) is most likel y not clini chantel signi fican t; armani er, it shoul d be inter prete d with cauti on in [facility] n with other red cell hari eters and the patie nt's clini fabian condi tion. Not Available [address], [address], 02/03/2025 04:55:29 02/03/20 25 02/03/2025 CBC (INCL UDES DIFF/ PLT) RDW 12.9 % 11.0-1 5.0 normal Not Available [address], [address], 02/03/2025 04:55:29 02/03/20 25 02/03/2025 CBC (INCL UDES DIFF/ PLT) platelet count 285 thous and/u L 140-40 0 normal Not Available [facility] [address], [address], 02/03/2025 04:55:29 02/03/20 25 02/03/2025 CBC (INCL UDES DIFF/ PLT) MPV 11.3 fL 7.5-12 .5 normal Not Available [facility] [address], [address], 02/03/2025 04:55:29 02/03/20 25 02/03/2025 CBC (INCL UDES DIFF/ PLT) absolute neutrophils 5324 cells /uL 1500-7 800 normal Not Available [address], [address], 02/03/2025 04:55:29 02/03/20 25 02/03/2025 CBC (INCL UDES DIFF/ PLT) absolute lymphocytes 599 cells /uL 850-39 00 low Not Available [address], [address], 02/03/2025 04:55:29 02/03/20 25 02/03/2025 CBC (INCL UDES DIFF/ PLT) absolute monocytes 315 cells /uL 200-95 0 normal Not Available [address], [address], 02/03/2025 04:55:29 02/03/20 25 02/03/2025 CBC (INCL UDES DIFF/ PLT) absolute eosinophils 32 cells /uL 15-500 normal Not Available [address], [address], 02/03/2025 04:55:29 02/03/20 25 02/03/2025 CBC (INCL UDES DIFF/ PLT) absolute basophils 32 cells /uL 0-200 normal Not Available [address], [address], 02/03/2025 04:55:29 02/03/20 25 02/03/2025 CBC (INCL UDES DIFF/ PLT) neutrophils 84.5 % normal Not Available [address], [address], 02/03/2025 04:55:29 02/03/20 25 02/03/2025 CBC (INCL UDES DIFF/ PLT) lymphocytes 9.5 % normal Not Available [facility] [address] [place], [address], 02/03/2025 04:55:29 02/03/20 25 02/03/2025 CBC (INCL UDES DIFF/ PLT) monocytes 5.0 % normal Not Available [address] [address] [place], [address], 02/03/2025 04:55:29 02/03/20 25 02/03/2025 CBC (INCL UDES DIFF/ PLT) eosinophils 0.5 % normal Not Available [facility] [address] [address] [place], [address], 02/03/2025 04:55:29 02/03/20 25 02/03/2025 CBC (INCL UDES DIFF/ PLT) basophils 0.5 % normal Not Available [address], [address], 02/03/2025 04:55:29 02/11/20 24 02/11/2024 XR, chest , 2 view No observ ation record ed. [email or web address] [place] [address], [address], 02/18/2024 09:41:31 02/19/20 24 02/19/2024 LDCT, chest , for lung cance r scree kevin No observ ation record ed. [email or web address] [address] [facility], [place], [address], 03/23/2024 16:47:33 03/24/20 24 03/24/2024 XR, chest , 1 view No observ ation record ed. [email or web address] [place] [address], [address], 04/01/2024 09:41:11 08/25/20 24 08/25/2024 MRI, brain + brain stem, w/o contr ast No observ ation record ed. [email or web address] [address], [address], 08/26/2024 13:59:16 09/06/20 24 09/05/2024 XR, chest , 2 view No observ ation record ed. [email or web address] [id number] [facility] [address], [place], [address], 09/07/2024 09:58:54 01/15/20 25 01/14/2025 XR, chest , 2 view No observ ation record ed. [email or web address] [facility] [address] [facility] [address], [place], [address], 01/14/2025 12:04:43 Result Notes None recorded. Problems Name Problem SNOMED Code Status Onset Date Resolution Date Notes Provider Name and Address Organization Details Recorded Time Chronic obstructiv e pulmonary disease 55602476 Active Not Available [facility] 3 18:04:39 Acute exacerbati on of chronic obstructiv e pulmonary disease 084042522 Active 2016 Not Available [facility] 3 18:04:39 Benign prostatic hyperplasi a 823351169 Active 2016 Not Available [facility] 3 18:04:39 Severe chronic obstructiv e pulmonary disease 891340501 Active 2018 Not Available [facility] 3 18:04:39 Chronic respirator y failure 13719056 Active 2018 Not Available [facility] 3 18:04:39 Ingrowing toenail 284874512 Active 2021 Not Available [facility] 3 18:04:39 Foot pain 34784289 Active 2021 Not Available [facility] 3 18:04:39 Tobacco dependence syndrome 52768645 Active Not Available [facility] 3 18:04:39 Seasonal allergy 789728120 Active 2022 RAY Leal [address], [facility] [address], [place], [address] , [facility] [employer] [facility] 3 10:55:26 Chronic cough 57021573 Active 2022 RAY Leal [address], [place], [address] , [facility] 3 10:56:49 Pain of right knee joint 1911278743202 00 Active 2022 RAY Leal [address], [address], [place], [address] , [facility] 3 11:01:39 Gastroesop hageal reflux disease 496883088 Active 2022 RAY Leal [address], [address], [place], [address] , [facility] 3 11:04:34 Lower abdominal pain 94726763 Active 2022 RAY Leal [address], [address], [place], [address] , [facility] 3 10:57:20 Anxiety 63265851 Active 2022 Jolynn quintana, [facility] 3 09:41:00 Arthritis 8141495 Active 2022 Jolynn quintana, [facility] 3 09:41:08 Disorder of eye 112173802 Active 2022 Jolynn quintana, [facility] 3 09:41:15 Headache 82766220 Active 2022 Jolynn quintana, [place] [facility] 3 09:41:22 Heartburn 32183064 Active 2022 Jolynn quintana, [facility] 3 09:41:29 Disorder of lung 62613961 Active 2022 Jolynn quintana, [facility] 3 09:41:38 Ingrowing nail of toe of right foot 4915847706774 9102 Active 2022 Mata Lugo DPM [address], [address], [place], [address] , [place] [facility] 3 10:57:35 Pain of right hip joint 7170570842153 02 Active 2022 GILMAR Velasquez [address], [address], [place], [address] , [facility] 3 16:05:21 Low back pain 813168719 Active 2022 GILMAR Velasquez [address], [address], [place], [address] , [facility] 3 14:31:44 Hyperthyro idism 66975886 Active 2023 GILMAR Velasquez [address], [address], [place], [address] , [facility] 4 10:06:09 Upper respirator y infection 74945769 Active 2024 GILMAR Thomas [address], [address], [place], [address] , [facility] 5 14:06:12 Dyspnea at rest 024053698 Active 2024 GILMAR Thomas [address], [address], [place], [address] , [facility] 5 12:14:36 Chest pain 52054177 Active 2024 GILMAR Thomas [address], [address], [place], [address] , [facility] 5 12:15:51 Burning chest pain Active 2024 GILMAR Thomas [address], [address], [place], [address] , [facility] 5 12:16:19 Acute urticaria 975475780 Active 2024 GILMAR Thomas [address], [address], [place], [address] , [facility] 13:52:20 Notes:PULMONARY DISEASE, USE OF NSAIDS Problem Notes None recorded. Procedures Surgical History Date Name Laterality Status Provider Name and Address Organization Details Recorded Time 03/05/20 Medicare Wellness CPT Code, subsequent completed Hortencia Gallagher RN [place] [facility] 03/05/2024 09:30:38 06/06/20 Nail Debridement completed Mata Lugo DPM [address], [address], [place], [address], [facility] [place] 06/06/2023 10:57:28 02/27/20 Medicare Wellness CPT Code, Initial completed RAY Leal [address], [address], [place], [address], [facility] [place] 02/26/2023 12:38:15 Unlisted procedure nose completed Not Available [facility] 12/12/2022 18:04:04 Imaging Results Imaging Date Name Status LastModified by Organiz ation Details LastModified Time 02/11/2024 XR, chest, 2 view completed [address], [address], 02/18/2024 09:41:31 02/19/2024 LDCT, chest, for lung cancer screening completed [email or web address] [address], [address], 03/23/2024 16:47:33 03/24/2024 XR, chest, 1 view completed [address], [address], 04/01/2024 09:41:11 08/25/2024 MRI, brain + brain stem, w/o contrast completed [email or web address] [place] [address], [address], 08/26/2024 13:59:16 09/05/2024 XR, chest, 2 view completed [email or web address] [address], [address], 09/07/2024 09:58:54 01/14/2025 XR, chest, 2 view completed [email or web address] [facility] [address], [place], [address], 01/14/2025 12:04:43 Procedure Notes None recorded. Medical Equipment None Reported. Allergies Allergen ID Allergen Name Allergen Category Reaction Reaction Severity Criticality Documentation Date Start Date Code Code System Note Provider Name and Address Organization Details Recorded Time 00304 oxycodone medicatio n itching Not available low 12/12/2022 7804 RxNorm FABIO Nguyen, JAILENE - S Agent [employer] 11:58:56 Medications Name Sig Start Date Stop [...] ORAL ROUTE ONCE DAILY FOR 4 DAYS 196502|[id number]|2025-02-23 07:29:00|2025-02-23 07:29:00|XMS_ITS|ARTURO ELIZONDO|External Medical Summaries|[id number]|" Referral Summary Created on: February 23, 2025 Bentley Mesa : 1960 Sex: Male Author Organization [facility] Address [address] [place] [address] Care Team Providers Care Burn Table Operator Name Role Phone Aristeo Khan MD Primary Care Provider Ravi Queen MD Unavailable [phone] Encounters Date Type Department Care Team Description 12/01/2024 8:22 AM HYDROCHLORIC AREA SUPERVISOR - 12/01/2024 11:59 PM HYDROCHLORIC AREA SUPERVISOR Hospital Encounter [facility] [address] [place] [address] [address] [place] [address] Natalia Georges NP Lumbar radicular pain (Primary Dx); correction (current) use of opiate analgesic; Primary osteoarthritis [...] 06/28/2022 Insomnia secondary to chronic pain 06/28/2022 rn long term care (current) use of opiate analgesic 06/14 Resolved [...] on file Legal Sex Male 8:01 PM HYDROCHLORIC AREA SUPERVISOR Gender Identity Not on file Sexual Orientation Not on file Last Filed Vital Signs Vital Sign Reading Time Taken Comments Blood Pressure 142/82 09/01/2024 9:08 AM HYDROCHLORIC AREA SUPERVISOR Pulse 85 09/01/2024 9:08 AM HYDROCHLORIC AREA SUPERVISOR Temperature 36.9 C (98.5 F) 04/02/2024 12:40 PM CDT Respiratory Rate 22 09/01/2024 9:08 AM HYDROCHLORIC AREA SUPERVISOR Oxygen Saturation 95% 09/01/2024 9:08 AM HYDROCHLORIC AREA SUPERVISOR Inhaled Oxygen Concentration - - Weight 111.1 [...] Comments PSA SCREEN Routine 09/27/2022 10:21 AM HYDROCHLORIC AREA SUPERVISOR from Last 3 Months or Most Recently Relevant to Health Maintenance Results * PSA screen (09/27/2022 10:21 AM HYDROCHLORIC AREA SUPERVISOR) PSA-Total 0.70 <=5.40 ng/mL TALIB VILA Comment: [...] revised 22. Blood 09/27/2022 10:2 1 AM HYDROCHLORIC AREA SUPERVISOR 09/27/2022 10:44 AM HYDROCHLORIC AREA SUPERVISOR us Aristeo Khan MD LAB BLOOD ORDERABLES Final Result [facility] [address] [facility] of Laboratories [place], [place] [id number] from Last 3 Months or Most Recently Relevant to Health Maintenance Insurance MEDICARE [facility] MEDICARE [facility] IDPA [facility] MEDICARE [facility] Address: [address] [address] [place] [address] IDPA [facility] MEDICARE [facility] Address: [facility] [address] [place] [address] Care Teams Burn Table Operator Relationship Specialty Start Date End Date Aristeo Khan MD [address] [place] [address] PCP - General 06/28/22 Ravi Queen MD [address] [facility] [address] GUZM[place]N [address] [place] [id number] Anesthesiologist Pain Management 09/05/22 "
--- OUTSIDE RECORDS SUMMARY | 2025-02-23 07:30 | XMS_ITS | Encounter Summary ---
Author Organization [facility] Address [address] [place] [address] Care Team Providers Care Desk Operator Name Role Phone Bentley Kyle MD Primary Care Provider [phone] Reason for Visit * Reason Onset Date Comments Wants Appointment 02/19/2025 Encounter Details Date Type Department Care Team (Late st Contact Info) Description 02/19/2025 Telephone [facility] Pulmonology [facility] [address] [place] [address] Carson Pineda MD 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 No one can find anything wrong. They would like an appointment as pt is wondering if the cause is the zephyr valves. Please advise. documented in this encounter Plan of Treatment Not on file documented as of this encounter Visit Diagnoses Not on filedocumented in this encounter Care Teams Desk Operator Relationship Specialty Start Date End Date Bentley Kyle MD [address] [place] [address] PCP - General Internal Medicine 04/18/21 documented as of this encounter
--- OUTSIDE RECORDS SUMMARY | 2025-02-23 07:30 | XMS_ITS | Clinical Summary ---
Author Organization [facility] Address [address] [place] [address] Phone Care Team Providers Care Tube Trailer Filler Name Role Phone Bentley Kyle MD Primary Care Provider [phone] Medications PAIN & FEVER EXTRA STRENGTH 500 [...] Insurance MEDICAID [place] MED[place] Care Teams Tube Trailer Filler Relationship Specialty Start Date End Date Bentley Kyle MD [address] [place] [address] PCP - General Internal Medicine 02/01/21
--- NOTE | 2025-02-23 15:04 | WPDPFTINT ---
PFT Procedure Performed PFT Procedure Performed Spirometry with Pre/Post Bronchodilator Plethysmography (Lung Vol) Diffusing Cap (DLCO) Flow Vol Loop PFT Interpretation This is a pulmonary function test with pre and post-bronchodilator spirometry, plethysmography and diffusing capacity. The test was performed and results interpreted in accordance with the 2019 and 2005 ATS/ERS Task Force guidelines respectively using the Global Lung Function Initiative-2012 reference equations. Patient demonstrated good effort and cooperation. Reproducibility criteria were met. The quality of the pre bronchodilator spirometry maneuver was Grade A and post bronchodilator spirometry maneuver was Grade A. Of note, patient had difficulty with plethysmography. Findings: Spirometry: There is decreased maximal expiratory airflow at all lung volumes with the concave expiratory flow tracing. The contour the inspiratory flow tracing is normal. The pre bronchodilator FVC is 1.86 L, 52% predicted. The pre bronchodilator FEV1 is 0.58 L, 21% predicted. The pre bronchodilator FEV1: FVC ratio is 31%. The post bronchodilator FVC is 2.00 L, representing a 7% increase. The post bronchodilator FEV1 is 0.66 L, representing an 80 mL increase which corresponds to a 13% increase. The post bronchodilator FEV1: FVC ratio is 33%. Plethysmography: The total lung capacity is 2.59 L, 43% predicted. The functional residual capacity is 1.53 L, 46% predicted. The residual volume is 0.51 L, 24% predicted. Diffusing capacity: The diffusing capacity unadjusted for hemoglobin and carboxyhemoglobin is 6.9, 26% predicted. The diffusing capacity adjusted for alveolar volume is 2.26, 55% predicted. Impression: The patient had difficulty with plethysmography, assuming the plethysomography data is accurate, there is a combined obstructive and restrictive ventilatory abnormality. There are no guidelines to assign the severity of obstruction and restriction with a combined abnormality. In my opinion, given the severely concave expiratory flow tracing, severely decreased FEV1: FVC ratio and moderate restrictive abnormality I would state there is a severe obstructive abnormality and a moderate restrictive abnormality resulting in a very severe decrease in the FEV1. There is no significant improvement after inhaling a single dose of albuterol as the absolute increase in post bronchodilator FEV1 is less than 200 mL. The diffusing capacity unadjusted for hemoglobin and carboxyhemoglobin is severely decreased and remains moderately decreased when adjusted for alveolar volume. There are no prior studies for comparison
== END 2025-02-23 07:26 | disposition home or self-care (01) ==
LOC: ANHPFT 07:26
PROVIDERS: PCP Nurse Practitioner Family; Visit Provider Nurse Practitioner Family
DX: J43.9 Emphysema, unspecified (principal)
CPT/HCPCS: 94060; 94726; 94729

== ENCOUNTER 2025-02-26 09:04 | Outpatient (CLI) | payer MEDICARE, MEDICAID, SELFPAY ==
--- OUTSIDE RECORDS SUMMARY | 2025-02-16 14:30 | XMS_ITS | Clinical Summary ---
Author Organization [facility] Address [address] [place] [address] Phone Care Team Providers Care Adzing And Boring Machine Feeder Name Role Phone Bentley Kyle MD Primary Care Provider [phone] Medications PAIN & FEVER EXTRA STRENGTH 500 [...] age to complete this topic Insurance MEDICAID [place] Care Teams Adzing And Boring Machine Feeder Relationship Specialty Start Date End Date Bentley Kyle MD [address] [place] [address] PCP - General Internal Medicine 02/01/21
--- OUTSIDE RECORDS SUMMARY | 2025-02-16 14:30 | XMS_ITS | CONTINUITY OF CARE DOCUMENT ---
Author Name jose juan manzano Address Unknown Organization [facility] Address [address] [place] [address] Phone [phone] Care Team Providers Care Merchandising Representative Name Role Phone Randy Wynne MD Unavailable [phone] OLIVIA SAUNDERS MD Unavailable [phone] JEAN FINCH MD Unavailable INSURANCE PROVIDERS Payer name Policy type / Coverage type [employer]el red green party [employer] [facility] [facility] Medicaid 1 [id number]
--- OUTSIDE RECORDS SUMMARY | 2025-02-16 14:30 | XMS_ITS | Data Portability ---
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 Plan of Treatment Reminders Order Date Submit Date Provider Last Modified By Organization Details Last Modified Time Details Appointments None recorded. Lab hemoglobin + hematocrit , blood 2019 formerly [facility], [address] [facility], [address], [place], [address], 0 11:29:35 hemoglobin + hematocrit , blood 2019 020 [facility], [address], [place], [address], 0 11:29:43 Referral None recorded. Procedures None recorded. Surgeries None recorded. Imaging None recorded. Medication Orders tamsulosin 0.4 mg capsule 2019 020 INTERFACE Not available 0 11:29:16 promethazi ne-DM 6.25 mg-15 mg/5 mL oral syrup 2019 020 INTERFACE Not available 0 11:20:00 Patient TargetsNo targets recorded. Patient Instructions Encounter Date Encounter Id Patient Instructions Last Modified By Organization Details Last Modified Time 06/17/2020 [id number] ER (Refused) Discharge summary STAT labs at [facility] Follow up with GI (today) Follow up with the keyseater operator Follow up in 1-2 weeks gris Not available 06/17/2020 11:23:00 He has refused a n ER evaluation, Me, myself, I feel good gris Not available 06/17/2020 11:22:28 07/15/2020 [id number] Discharge summar y and lab results from gris Not available 07/15/2020 11:35:23 Reason for Referral None Reported. Results Created Date Observation Date Name Description Value Unit Range Abnormal Flag Note LastModifiedBy Organization Detail LastModifiedTime 11/11/19 20 11/11/2019 XR, knee, 3 view No observ ation record ed. [facility] (Imaging) [address] [place], [address], 11/18/2019 10:38:18 12/07/19 20 12/07/2019 LDCT, chest , for lung cance r scree kevin No observ ation record ed. [address] (Imaging) [address] [place], [address], 12/15/2019 14:52:56 06/02/20 20 06/01/2020 XR, chest No observ ation record ed. [facility] (Imaging) [address] [place], [address], 06/17/2020 11:17:19 06/02/20 20 06/02/2020 CT, neck, soft tissu e, w/wo contr ast No observ ation record ed. [facility] (Imaging) [address] [place], [address], 06/17/2020 11:17:19 06/02/20 20 06/02/2020 CT, neck, soft tissu e, w/o contr ast No observ ation record ed. [facility] [address], [place], [address], 06/17/2020 11:17:19 06/03/20 20 06/03/2020 opal martinez ow study No observ ation record ed. [facility] (Imaging) [address] [place], [address], 06/17/2020 11:17:19 06/03/20 20 06/03/2020 XR, chest No observ ation record ed. [facility] (Imaging) [address] [place], [address], 06/17/2020 11:17:19 06/05/20 20 06/05/2020 CT, chest , w/o contr ast No observ ation record ed. [facility] (Imaging) [address] [place], [address], 06/17/2020 11:17:19 Result Notes None recorded. Problems Name Problem SNOMED Code Status Onset Date Resolution Date Notes Provider Name and Address Organization Details Recorded Time Allergic rhinitis 41203310 Active 2017 Katlyn Barrett MD Attn: Accountin g,[address] [facility], [place], [address], [place] [facility] 0 11:06:48 Abnormal weight gain 098325328 Active 2018 Katlyn Barrett MD Attn: Accountin g,[address] [facility], [place], [address], [place] [facility] 0 11:06:48 Heartburn 33557097 Active Katlyn Barrett MD Attn: Accountin g,[address] [facility], [place], [address], [place] [facility] 0 11:06:48 Impotence Active Katlyn Barrett MD Attn: Accountin g,[address] [facility], [place], [address], [place] [facility] 0 11:06:48 Cough 85453882 Active Katlyn Barrett MD Attn: Accountin g,[address] [facility], [place], [address], [place] [facility] 0 11:06:48 Chronic lung disease 508281393 Active Katlyn Barrett MD Attn: Accountin g,[address] [facility], [place], [address] [place] [address] 2, [place] [facility] 0 11:06:48 Knee pain Active Katlyn Barrett MD Attn: Accountin g,[address] [facility], [place], [address] [place] [address] 2, [place] [facility] 0 11:06:48 Chondroma lacia of patella 44478283 Active Katlyn Barrett MD Attn: Accountin g,[address] [facility], [place], [address] [place] [address] 2, [place] [facility] 0 11:06:48 Osteoarth ritis of knee 482616386 Active Katlyn Barrett MD Attn: Accountin g,[address] [place], [place], [address] [place] [address] 2, [place] [facility] 0 11:06:48 Pain of joint 40634684 Active Katlyn Barrett MD Attn: Accountin g,[address] [place], [place], [address] [place] [address], [place] [facility] 0 11:06:48 Muscle pain 46162302 Active Katlyn Barrett MD Attn: Accountin g,[address] [place], [place], [address] [place] [address], [place] [facility] 0 11:06:48 Chronic obstructi ve pulmonary disease 95755374 Active Elaine Jain MD Attn: Accountin g,[address] [place], [place], [address] [place] [address] 2, [place] [facility] 6 14:54:50 Tobacco user 263492195 Active Katlyn Barrett MD Attn: Accountin g,[address] [place], [place], [address] [place] [address] 2, [place] [facility] 0 11:06:48 Low back pain 881838733 Active Katlyn Barrett MD Attn: Nela g,[address] [place], [place], [address] [place] [address] 2, [place] [facility] 0 11:06:48 Paresthes ia 92767170 Active Katlyn Barrett MD Attn: Nela ye,[address] [facility], [place], [address], [place] [facility] 0 11:06:48 Structura l and functiona l abnormali ties of the kidney Completed 01/19/2020 Elaine Jain MD Attn: Nela ye,[address] [facility], [place], [address], [place] [facility] 0 10:39:12 Kidney lesion 180320495432 00 Completed 01/19/2020 Elaine Jain MD Attn: Accountjose e ye,[address] [facility], [place], [address], [place] [facility] 0 10:39:00 Disorder of skin and/or subcutane ous tissue 20269140 Active Katlyn Barrett MD Attn: Nela ye,[address] [facility], [place], [address], [place] [facility] 0 11:06:48 Simple renal cyst 04607334 Active Katlyn Barrett MD Attn: Nela ye,[address] [facility], [place], [address], [place] [facility] 0 11:06:48 Mass of subcutane ous tissue of back 905651205896 103 Active 2015 Katlyn Barrett MD Attn: Nela ye,[address] [facility], [place], [address], [place] [facility] 0 11:06:48 Lower urinary tract symptoms due to benign prostatic hypertrop hy 205966543066 01 Active 2016 Katlyn Barrett MD Attn: Nela ye,[address] [facility], [place], [address], [place] [facility] 0 11:06:48 Constipat ion 73697289 Active 2016 Katlyn Barrett MD Attn: Chadjose e ye,[address] [place], [address], [place] [facility] 0 11:06:48 Problem Notes None recorded. Procedures Surgical History Date Name Laterality Status Provider Name and Address Organization Details Recorded Time 5 Joint Injection completed Ramy Yarbrough [facility] 05/23/2015 15:07:30 Imaging Results Imaging Date Name Status LastModified by Organiz ation Details LastModified Time 11/11/2019 XR, knee, 3 view completed [facility] (Imaging) [address] [place], [address], 11/18/2019 10:38:18 12/07/2019 LDCT, chest, for lung cancer screening completed [address] (Imaging) [address] [place], [address], 12/15/2019 14:52:56 06/01/2020 XR, chest completed [facility] (Imaging) [address] [place], [address], 06/17/2020 11:17:19 06/02/2020 CT, neck, soft tissue, w/wo contrast completed [facility] (Imaging) [address] [place], [address], 06/17/2020 11:17:19 06/02/2020 CT, neck, soft tissue, w/o contrast completed [facility] [address], [place], [address], 06/17/2020 11:17:19 06/03/2020 barium swallow study completed [facility] (Imaging) [address] [place], [address], 06/17/2020 11:17:19 06/03/2020 XR, chest completed [facility] (Imaging) [address] [place], [address], 06/17/2020 11:17:19 06/05/2020 CT, chest, w/o contrast completed [facility] (Imaging) [address] [facility], [address], 06/17/2020 11:17:19 Procedure Notes None recorded. Medical Equipment None Reported. Allergies Allergen ID Allergen Name Allergen Category Reaction Reaction Severity Criticality Documentation Date Start Date Code Code System Note Provider Name and Address Organization Details Recorded Time 22625 oxycodone medicatio n itching moderate Not available 12/02/2015 8258 RxNorm Juaquin Gaspar MD [address] [place], [address], [facility] 6 11:11:56 Medications Name Sig [...] Updated DateTime 9 175.26 cm 37.5 kg/m2 304447. 46 g 98.1 [degF] 94 % 94 % 84 /min 122 mm[Hg] 84 mm[Hg] Emilia Hebert MA [facility] 9 10:50:24 Date Recorded Body height Provider Name an d Address Organization Details Last Updated DateTime 01/19/2020 175.26 cm Emilia Hebert MA [facility] 0 09:40:18 Date Recorded Body height Provider Name an d Address Organization Details Last Updated DateTime 05/19/2020 175.26 cm Emilia Hebert MA [facility] 0 09:47:41 Date Recorded Body height Provider Name an d Address Organization Details Last Updated DateTime 06/17/2020 175.26 cm Lalita Buckner MA [facility] 06/17/20 20 10:01:54 Date Recorded Body height Provider Name an d Address Organization Details Last Updated DateTime 07/15/2020 175.26 cm Jenna Molina MA [facility] 020 10:52:41 Social History Question Answer Notes LastModified by Organizat ion Details LastModified Time Tobacco Smoking Status Former Smoker Quit 12/24/2018 Emilia [facility] 04/30/2019 10:31:18 What Is Your Level [...] SNOMED-CT Code Diagnosis ICD10 Code Diagnosis Note [id number] Elaine Jain MD [facility] (Adult Med) [address] [place] [address] 09/27/2014 15:04:00 09/27/2014 17:04:25 Chronic obstructive pulmonary disease 06456664 Tobacco user 322022170 Low back pain 099941120 Pain of joint 84303791 Paresthesia 12906770 [id number] Elaine Jain MD [facility] (Adult Med) [address] [place] [address] 01/04/2015 14:16:36 01/04/2015 16:04:41 Chronic obstructive pulmonary disease 75421856 Heartburn 84706026 Pain of joint 31195477 Impotence 976431230 [id number] MD [facility] (Adult Med) [address] [place] [address] 02/03/2015 13:56:33 02/03/2015 14:30:34 Pain of joint 48991130 Chronic ob structive pulmonary disease 27294512 Low back pain 756948987 [id number] MD [facility] (Adult Med) [address] [place] [address] 02/14/2015 10:05:33 02/14/2015 15:25:14 Cough 53819536 Tobacco user 529960701 Chronic lung disease 226879160 [id number] MD [facility] (Adult Med) [address] [place] [address] 04/19/2015 12:53:17 04/20/2015 10:06:04 Chronic lung disease 666163543 Low back pain 232176860 Tobacco user 247369815 Heartburn 63427964 [id number] Elaine Jain MD [facility] (Adult Med) [address] [place] [address] 05/17/2015 16:01:13 05/19/2015 11:34:27 Knee pain 65374601 Chronic ob structive pulmonary disease 53206209 Paresthesia 17212540 [id number] Juaquin Gaspar MD [facility] [address] [address] 05/23/2015 14:26:20 05/24/2015 14:55:47 Chondromalacia of patella 85409606 Knee pain 90770693 Osteoarthr itis of knee 141624299 [id number] Juaquin Gaspar MD [facility] [address] [address] 06/30/2015 09:28:33 06/30/2015 15:13:52 [id number] Juaquin Gaspar MD [facility] [address] [address] 08/08/2015 09:05:11 08/08/2015 17:10:25 Knee pain 85395359 M25.561 Osteoarthr itis of knee 343348791 M17.11 Chondromal acia of patella 20592285 M22.41 [id number] Elaine Jain MD [facility] (Adult Med) [address] [place] [address] 08/18/2015 14:02:14 08/18/2015 18:09:16 Low back pain 198924774 M54.5 Osteoarthr itis of knee 106756501 M17.9 [id number] Juaquin Gaspar MD [facility] [address] [place] [address] 12/02/2015 10:57:53 12/02/2015 13:22:24 Knee pain 79318467 M25.561 Osteoarthr itis of knee 377436321 M17.11 Chondromal acia of patella 01606438 M22.41 [id number] Elaine Jain MD [facility] (Adult Med) [address] [place] [address] 01/10/2016 14:32:02 01/10/2016 18:23:06 Chondromalacia of patella 33020461 M22.41 Chronic ob structive pulmonary disease 90108099 J44.9 Knee pain 40525443 M25.5 61 Adult heal th examination 555760974 Z00.01 Screening for malignant neoplasm of colon 515366083 Z12.11 [id number] [facility] [address] [place] [address] 04/24/2016 14:38:44 04/24/2016 16:44:15 Chronic obstructive pulmonary disease 16999783 J44.9 Cough 79285380 R05 Knee pain 61775904 M25.5 61 Kidney lesion 7829129613 9100 N28.9 Disorder o f skin and/or subcutaneous tissue 98734368 L98.9 Left shoulder region. Will observe at present [id number] [facility] [address] [place] [address] 06/05/2016 13:20:16 06/05/2016 18:11:10 Simple renal cyst 40589450 N28.1 Chronic ob structive pulmonary disease 77033150 J44.9 Pain of joint 82200498 M 25.50 Osteoarthr itis of knee 939436763 M17.9 [id number] MD [facility] (Adult Med) [address] [place] [address] 10/04/2016 13:14:32 10/04/2016 15:06:14 Chronic obstructive pulmonary disease 37776080 J44.9 Tobacco user 886572746 Z 72.0 Cough 52880055 R05 [id number] MD [facility] (Adult Med) [address] [place] [address] 11/14/2016 15:26:51 11/14/2016 17:50:37 Chronic obstructive pulmonary disease 91906763 J44.9 Osteoarthr itis of knee 158154184 M17.9 Low back pain 227359890 M54.5 [id number] MD [facility] (Adult Med) [address] [place] [address] 01/17/2017 13:02:09 01/17/2017 14:50:29 Chronic obstructive pulmonary disease 03239712 J44.9 Osteoarthr itis of knee 431093338 M17.9 Low back pain 775042192 M54.5 Chondromal acia of patella 87222793 M22.41 Cough 51081619 R05 [id number] Elaine Jain MD [facility] (Adult Med) [address] [place] [address] 04/03/2017 14:05:39 04/17/2017 12:08:04 Chronic obstructive pulmonary disease 86390106 J44.9 Cough 98405583 R05 Impotence 070982806 N52. 9 Osteoarthr itis of knee 424717683 M17.9 [id number] Elaine Jain MD [facility] (Adult Med) [address] [place] [address] 06/27/2017 14:13:46 06/27/2017 16:18:33 Chronic obstructive pulmonary disease 91995537 J44.9 Heartburn 50585876 R12 Lower urin ayaz tract symptoms due to benign prostatic hypertrophy 3581245932 9101 N40.1 [id number]|2025-02-16 14:31:00|2025-02-16 14:30:00|XMS_ITS|ARTURO ELIZONDO|External Medical Summaries|[id number]|" Data Portability Created on: February 16, 2025 [place]ley [place] .[id number] : 1960 Sex: Male Author Organization [place] [facility] Main Office Address [address] [place] [address] Care Team Providers Care Cattle Brander Name Role Phone GUILLAUME ERAZO Primary Care Provider GUILLAUME ERAZO Referring Provider [phone] Assessment Encounter Date Assessment Date Assessment LastModified by Organization Details LastModified Time 12/22/2024 12/22/2024 I have reconciled the patient's medications post their discharge from inpatient facility. Not available 12/22/2024 14:59:13 Plan of Treatment Reminders Order Date Submit Date Provider Last Modified By Organization Details Last Modified Time Details Appointments Follow Up 15 2024 09:30A M Kiki Nolasco NP Not available Not available Not available Lab unlisted lab - CBC study [address] [facility] (Lab), [address] [place], [address], 02/09/2025 09:03:08 CMP, serum or plasma 2024 025 [facility] (Lab), [address] [place], [address], 02/03/2025 04:55:28 TSH, serum or plasma [address] (Lab), [address] [place], [address], 06/02/2024 10:46:58 T4, free, serum 2023 024 [email or web address] (Lab), [address] [place], [address], 06/02/2024 10:47:09 CBC w/ auto diff [address] (Lab), [address] [place], [address], 06/02/2024 10:46:49 PSA, serum or plasma 2023 024 [facility] (Lab), [address] [place], [address], 03/06/2024 00:11:54 lipid panel, serum 2023 024 [facility] (Lab), [address] [place], [address], 03/06/2024 00:11:55 TSH, serum or plasma 2023 024 [email or web address] [facility] (Lab), [address] [place], [address], 03/19/2024 08:05:47 CBC w/ auto diff 2023 024 [facility] (Lab), [address] [place], [address], 03/06/2024 00:11:55 glycohemo globin, total, blood 2023 024 [facility] (Lab), [address] [place], [address], 03/06/2024 00:11:55 CMP, serum or plasma 2023 024 [facility] (Lab), [address] [place], [address], 03/06/2024 00:11:54 Referral occupatio nal therapist referral 2024 025 [facility], [address] [place], [address], 02/10/2025 17:01:41 physical therapist referral 2024 025 [facility], [address] [place], [address], 02/10/2025 17:02:[address] referral - Please call patient to schedule an appointme nt. Thank you. 2023 024 [email or web address], [address] [place] [address] , [place] [address], [place], [address], 06/30/2024 08:46:[address] referral - Please call patient to schedule an appointme nt. Thank you. 2023 024 [email or web address] [facility], [facility] , [address], [place], [address], 04/02/2024 09:31:09 Procedures None recorded. Surgeries None recorded. Imaging CT, chest, w/o contrast - Please call patient to schedule. 2024 025 [facility] , [address], [place], [address], 02/02/2025 14:50:38 Medication Orders prednison e 50 mg tablet 2024 025 [facility], [address] [place], [place], [id number], 02/02/2025 12:21:00 promethaz ine-DM 6.25 mg-15 mg/5 mL oral syrup 2024 025 [facility] [address] [facility], [address] [place], [address], 12/22/2024 15:04:11 buspirone 5 mg tablet 2024 025 [facility], [address] [place], [place], [id number], 12/22/2024 15:03:13 hydroxyzi ne HCl 25 mg tablet 2024 025 [facility]98, [address] [place], [place], [id number], 12/22/2024 15:04:35 lorazepam 0.5 mg tablet 2024 025 [facility]11115, [address] [place], [place], [id number], 12/22/2024 14:50:36 buspirone 5 mg tablet 2024 025 [facility], [address] [place], [place], [id number], 11/03/2024 15:56:16 Patient TargetsNo targets recorded. Patient Instructions Encounter Date Encounter Id Patient Instructions Last Modified By Organization Details Last Modified Time 03/05/2024 [id number] dementia rating scale-2* Not available 03/05/2024 15:07:17 alcohol misuse* Not available 03/05/2024 15:07:25 depression screening* [email or web address] Not available 03/05/2024 15:07:28 multi-dimensiona l health assessment questionnaire* [email or web address] Not available 03/05/2024 15:07:20 Personalized a lt Plan and Screening Recommendations Advance Directives [...] Negative [email or web address] Not available 03/05/2024 14:39:26 12/22/2024 [id number] Thank you for yo ur visit to [...] homebound status}} Required Home Health Services: {{none halfway, physical therapy, occupational therapy halfway, physical therapy halfway}} Durable Medical Equipment needed: {{cane walker walke r with seat manual wheelchair bedside commode oxygen}} Billing Guidelines CPT code 46379- Transitional Care Management services with moderate medical decision complexity (lwau-bv-veng visit within 14 days of discharge). CPT code 27847- Transitional Care Management services with high medical decision complexity (dwiv-ar-nrgr visit within 7 days of discharge). [email or web address] Not available 12/22/2024 14:41:35 Reason for Referral Neurologist Referral for Hea dache headaches Please call patient to schedule an appointment. Thank you. Referring Physician: Gumaro [facility], Encounter Date: 03/05/2024 Neurologist Referral for Hea dache recurrent headaches Please call patient to schedule an appointment. Thank you. Referring Physician: [facility], Encounter Date: 06/02/2024 Occupational Therapist Refer ral for Acute exacerbation of chronic obstructive pulmonary disease Referring Physician: Kiki Nolasco [facility], Encounter Date: 02/02/2025 Physical Therapist Referral for Acute exacerbation of chronic obstructive pulmonary disease Referring Physician: Kiki Nolasco [facility], Encounter Date: 02/02/2025 Results Created Date Observation Date Name Description Value Unit Range Abnormal Flag Note LastModifiedBy Organization Detail LastModifiedTime 02/03/20 25 02/03/2025 COMPR EHENS MANPREET METAB OLIC PANEL glucose 105 mg/dL 65-99 high Fasti ng refer ence inter preet For someo ne witho ut known diabe allen, a gluco se value betwe en 100 and 125 mg/dL is consi stent with predi abete s and shoul d be confi rmed with a follo w-up test. Not Available [address] [place], [address], 02/03/2025 04:55:27 02/03/20 25 02/03/2025 COMPR EHENS MANPREET METAB OLIC PANEL urea nitrogen (BUN) 8 mg/dL 7-25 normal Not Available [address], [address], 02/03/2025 04:55:27 02/03/20 25 02/03/2025 COMPR EHENS MANPREET METAB OLIC PANEL creatinine 0.71 mg/dL 0.70-1 .35 normal Not Available [address] [place], [address], 02/03/2025 04:55:27 02/03/20 25 02/03/2025 COMPR EHENS MANPREET METAB OLIC PANEL eGFR 102 mL/mi n/1.7 3m2 > or = 60 normal Not Available [address] [place], [address], 02/03/2025 04:55:27 02/03/20 25 02/03/2025 COMPR EHENS MANPREET METAB OLIC PANEL BUN/creatini ne ratio SEE NOTE: (calc ) 6-22 Not Repor rakan: BUN and Creat inine are withi n refer ence range . Not Available [address] [place], [address], 02/03/2025 04:55:27 02/03/20 25 02/03/2025 COMPR EHENS MANPREET METAB OLIC PANEL sodium 138 mmol/ L 135-14 6 normal Not Available [address], [address], 02/03/2025 04:55:27 02/03/20 25 02/03/2025 COMPR EHENS MANPREET METAB OLIC PANEL potassium 4.5 mmol/ L 3.5-5. 3 normal Not Available [address], [address], 02/03/2025 04:55:27 02/03/20 25 02/03/2025 COMPR EHENS MANPREET METAB OLIC PANEL chloride 101 mmol/ L 98-110 normal Not Available [address], [address], 02/03/2025 04:55:27 02/03/20 25 02/03/2025 COMPR EHENS MANPREET METAB OLIC PANEL carbon dioxide 28 mmol/ L 20-32 normal Not Available [address], [address], 02/03/2025 04:55:27 02/03/20 25 02/03/2025 COMPR EHENS MANPREET METAB OLIC PANEL calcium 9.8 mg/dL 8.6-10 .3 normal Not Available [address], [address], 02/03/2025 04:55:27 02/03/20 25 02/03/2025 COMPR EHENS MANPREET METAB OLIC PANEL protein, total 7.0 g/dL 6.1-8. 1 normal Not Available [address], [address], 02/03/2025 04:55:27 02/03/20 25 02/03/2025 COMPR EHENS MANPREET METAB OLIC PANEL albumin 4.3 g/dL 3.6-5. 1 normal Not Available [address], [address], 02/03/2025 04:55:27 02/03/20 25 02/03/2025 COMPR EHENS MANPREET METAB OLIC PANEL globulin 2.7 g/dL_ (calc ) 1.9-3. 7 normal Not Available [address], [address], 02/03/2025 04:55:27 02/03/20 25 02/03/2025 COMPR EHENS MANPREET METAB OLIC PANEL albumin/glob ulin ratio 1.6 (calc ) 1.0-2. 5 normal Not Available [address], [address], 02/03/2025 04:55:27 02/03/20 25 02/03/2025 COMPR EHENS MANPREET METAB OLIC PANEL bilirubin, total 0.7 mg/dL 0.2-1. 2 normal Not Available [address], [address], 02/03/2025 04:55:27 02/03/20 25 02/03/2025 COMPR EHENS MANPREET METAB OLIC PANEL alkaline phosphatase 69 U/L 35-144 normal Not Available [address], [address], 02/03/2025 04:55:27 02/03/20 25 02/03/2025 COMPR EHENS MANPREET METAB OLIC PANEL AST 15 U/L 10-35 normal Not Available [address], [address], 02/03/2025 04:55:27 02/03/20 25 02/03/2025 COMPR EHENS MANPREET METAB OLIC PANEL ALT 16 U/L 9-46 normal Not Available [address], [address], 02/03/2025 04:55:27 02/03/20 25 02/03/2025 CBC (INCL UDES DIFF/ PLT) white blood cell count 6.3 thous and/u L 3.8-10 .8 normal Not Available [address], [address], 02/03/2025 04:55:29 02/03/20 25 02/03/2025 CBC (INCL UDES DIFF/ PLT) red blood cell count 4.47 craig on/uL 4.20-5 .80 normal Not Available [address], [address], 02/03/2025 04:55:29 02/03/20 25 02/03/2025 CBC (INCL UDES DIFF/ PLT) hemoglobin 13.8 g/dL 13.2-1 7.1 normal Not Available [address], [address], 02/03/2025 04:55:29 02/03/20 25 02/03/2025 CBC (INCL UDES DIFF/ PLT) hematocrit 42.7 % 38.5-5 0.0 normal Not Available [address], [address], 02/03/2025 04:55:29 02/03/20 25 02/03/2025 CBC (INCL UDES DIFF/ PLT) MCV 95.5 fL 80.0-1 00.0 normal Not Available [address], [address], 02/03/2025 04:55:29 02/03/20 25 02/03/2025 CBC (INCL UDES DIFF/ PLT) MCH 30.9 pg 27.0-3 3.0 normal Not Available [address], [address], 02/03/2025 04:55:29 02/03/20 25 02/03/2025 CBC (INCL UDES DIFF/ PLT) MCHC 32.3 g/dL 32.0-3 6.0 normal For adult s, a sligh t decre ase in the calcu lated MCHC value (in the range of 30 to 32 g/dL) is most likel y not clini chantel signi ileana t; armani er, it shoul d be inter prete d with cauti on in corre [facility] n with other red cell hari eters and the patie nt's clini fabian condi tion. Not Available [facility] [address], [address], 02/03/2025 04:55:29 02/03/20 25 02/03/2025 CBC (INCL UDES DIFF/ PLT) RDW 12.9 % 11.0-1 5.0 normal Not Available [facility] [address], [address], 02/03/2025 04:55:29 02/03/20 25 02/03/2025 CBC (INCL UDES DIFF/ PLT) platelet count 285 thous and/u L 140-40 0 normal Not Available [facility] [address], [address], 02/03/2025 04:55:29 02/03/20 25 02/03/2025 CBC (INCL UDES DIFF/ PLT) MPV 11.3 fL 7.5-12 .5 normal Not Available [address], [address], 02/03/2025 04:55:29 02/03/20 25 02/03/2025 CBC (INCL UDES DIFF/ PLT) absolute neutrophils 5324 cells /uL 1500-7 800 normal Not Available [facility] [address], [address], 02/03/2025 04:55:29 02/03/20 25 02/03/2025 CBC (INCL UDES DIFF/ PLT) absolute lymphocytes 599 cells /uL 850-39 00 low Not Available [facility] [address], [address], 02/03/2025 04:55:29 02/03/20 25 02/03/2025 CBC (INCL UDES DIFF/ PLT) absolute monocytes 315 cells /uL 200-95 0 normal Not Available [address], [address], 02/03/2025 04:55:29 02/03/20 25 02/03/2025 CBC (INCL UDES DIFF/ PLT) absolute eosinophils 32 cells /uL 15-500 normal Not Available [address], [address], 02/03/2025 04:55:29 02/03/20 25 02/03/2025 CBC (INCL UDES DIFF/ PLT) absolute basophils 32 cells /uL 0-200 normal Not Available [address], [address], 02/03/2025 04:55:29 02/03/20 25 02/03/2025 CBC (INCL UDES DIFF/ PLT) neutrophils 84.5 % normal Not Available [facility] [address], [address], 02/03/2025 04:55:29 02/03/20 25 02/03/2025 CBC (INCL UDES DIFF/ PLT) lymphocytes 9.5 % normal Not Available [address], [address], 02/03/2025 04:55:29 02/03/20 25 02/03/2025 CBC (INCL UDES DIFF/ PLT) monocytes 5.0 % normal Not Available [facility] [address], [address], 02/03/2025 04:55:29 02/03/20 25 02/03/2025 CBC (INCL UDES DIFF/ PLT) eosinophils 0.5 % normal Not Available [facility] [address], [address], 02/03/2025 04:55:29 02/03/20 25 02/03/2025 CBC (INCL UDES DIFF/ PLT) basophils 0.5 % normal Not Available [facility] [address] [facility] [place], [address], 02/03/2025 04:55:29 02/11/20 24 02/11/2024 XR, chest , 2 view No observ ation record ed. [email or web address] [address], [place], [address], 02/18/2024 09:41:31 02/19/20 24 02/19/2024 LDCT, chest , for lung cance r scree kevin No observ ation record ed. [email or web address] [address] [facility], [place], [address], 03/23/2024 16:47:33 03/24/20 24 03/24/2024 XR, chest , 1 view No observ ation record ed. [email or web address] [address] [facility], [place], [address], 04/01/2024 09:41:11 08/25/20 24 08/25/2024 MRI, brain + brain stem, w/o contr ast No observ ation record ed. [email or web address] [address] [facility], [place], [address], 08/26/2024 13:59:16 09/06/20 24 09/05/2024 XR, chest , 2 view No observ ation record ed. [email or web address] [address] [facility], [place], [address], 09/07/2024 09:58:54 01/15/20 25 01/14/2025 XR, chest , 2 view No observ ation record ed. [email or web address] [address], [place], [address], 01/14/2025 12:04:43 Result Notes None recorded. Problems Name Problem SNOMED Code Status Onset Date Resolution Date Notes Provider Name and Address Organization Details Recorded Time Chronic obstructiv e pulmonary disease 53765218 Active Not Available [facility] 3 18:04:39 Acute exacerbati on of chronic obstructiv e pulmonary disease 078247155 Active 2016 Not Available [employer] 3 18:04:39 Benign prostatic hyperplasi a 091438967 Active 2016 Not Available [facility] 3 18:04:39 Severe chronic obstructiv e pulmonary disease 230773390 Active 2018 Not Available [facility] 3 18:04:39 Chronic respirator y failure 42667689 Active 2018 Not Available [facility] 3 18:04:39 Ingrowing toenail 356534817 Active 2021 Not Available [facility] 3 18:04:39 Foot pain 75722716 Active 2021 Not Available [facility] 3 18:04:39 Tobacco dependence syndrome 97906632 Active Not Available [facility] 3 18:04:39 Seasonal allergy 091012369 Active 2022 RAY Leal [address], [address], [place], [address] , [employer] 3 10:55:26 Chronic cough 53904639 Active 2022 RAY Leal [address], [address], [place], [address] , [employer] [facility] [employer] 3 10:56:49 Pain of right knee joint 0388234222947 00 Active 2022 RAY Leal [address], [address], [place], [address] , [employer] [facility] [employer] 3 11:01:39 Gastroesop hageal reflux disease 225827536 Active 2022 RAY Leal [address], [address], [place], [address] , [employer] 3 11:04:34 Lower abdominal pain 18120024 Active 2022 RAY Leal [address], [address], [place], [address] , [facility] 3 10:57:20 Anxiety 00677348 Active 2022 Jolynn pEperson null, [place] [facility] 3 09:41:00 Arthritis 7598877 Active 2022 Jolynn Epperson null, [place] [facility] 3 09:41:08 Disorder of eye 629188017 Active 2022 Jolynn Epperson null, [place] [facility] 3 09:41:15 Headache 43158963 Active 2022 Jolynn Epperson null, [place] [facility] 3 09:41:22 Heartburn 47031754 Active 2022 Jolynn Dodd null, [place] [facility] 3 09:41:29 Disorder of lung 75034730 Active 2022 Jolynn Epperson null, [place] [facility] 3 09:41:38 Ingrowing nail of toe of right foot 5802010621962 9102 Active 2022 Mata Lugo DPM [address], [address], [place], [address] , [facility] 3 10:57:35 Pain of right hip joint 1566769162822 02 Active 2022 GILMAR Velasquez [address], [address], [place], [address] , [facility] 3 16:05:21 Low back pain 083053449 Active 2022 GILMAR Velasquez [address], [address], [place], [address] , [facility] 3 14:31:44 Hyperthyro idism 31021483 Active 2023 NORY Velasquez-C [address], [address], [place], [address] , [employer] [facility] [employer] 4 10:06:09 Upper respirator y infection 29282206 Active 2024 GILMAR Thomas [address], [address], [place], [address] , [employer] [place] [facility] [employer] [facility] [employer] 5 14:06:12 Dyspnea at rest 728332745 Active 2024 GILMAR Thomas [address], [address], [place], [address] , [employer] 5 12:14:36 Chest pain 60906608 Active 2024 GILMAR Thomas [address], [address], [place], [address] , [employer] 5 12:15:51 Burning chest pain Active 2024 GILMAR Thomas [address], [address], [place], [address] , [employer] 5 12:16:19 Acute urticaria 458617253 Active 2024 GILMAR Thomas [address], [address], [place], [address] , [employer] 5 13:52:20 Notes:PULMONARY DISEASE, USE OF NSAIDS Problem Notes None recorded. Procedures Surgical History Date Name Laterality Status Provider Name and Address Organization Details Recorded Time 03/05/20 Medicare Wellness CPT Code, subsequent completed Hortencia Gallagher RN [employer] [facility] [employer] 03/05/2024 09:30:38 06/06/20 Nail Debridement completed Mata Lugo DPM [address], [place], [address], [employer] 06/06/2023 10:57:28 02/27/20 Medicare Wellness CPT Code, Initial completed RAY Leal [address], [address], [place], [address], [place] [employer] 02/26/2023 12:38:15 Unlisted procedure nose completed Not Available [facility] 12/12/2022 18:04:04 Imaging Results Imaging Date Name Status LastModified by Organiz ation Details LastModified Time 02/11/2024 XR, chest, 2 view completed [address], [address], 02/18/2024 09:41:31 02/19/2024 LDCT, chest, for lung cancer screening completed [email or web address] [address] [place] [address], [address], 03/23/2024 16:47:33 03/24/2024 XR, chest, 1 view completed [address], [address], 04/01/2024 09:41:11 08/25/2024 MRI, brain + brain stem, w/o contrast completed [email or web address] [place] [address], [address], 08/26/2024 13:59:16 09/05/2024 XR, chest, 2 view completed [address], [address], 09/07/2024 09:58:54 01/14/2025 XR, chest, 2 view completed [address], [address], 01/14/2025 12:04:43 Procedure Notes None recorded. Medical Equipment None Reported. Allergies Allergen ID Allergen Name Allergen Category Reaction Reaction Severity Criticality Documentation Date Start Date Code Code System Note Provider Name and Address Organization Details Recorded Time [address]679 oxycodone medicatio n itching Not available low 12/12/2022 7804 RxNorm FABIO Nguyen, [employer] 11:58:56 Medications Name Sig Start Date Stop Date [...] Available prednison e 10 mg tablet TAKE 1 TABLET BY MOUTH EVERY MORNING AT 8:00AM active Not Available Not Available No t Available doxycycli ne hyclate 100 mg capsule Take 1 capsule twice a day by oral route. 02/02 completed Not Available Not Available Not Available [...] t Available prednison e 20 mg tablet Tk 2 ts po daily for 3 days, then tk 1 t po daily for 3 days then continue with Predniso ne 10mg daily 2024 active Not Available Not Available Not Avai lable prednison e 5 mg tablet TAKE ONE TABLET DAILY DIRECTED FOR 30 DAYS 02/02 completed Not Available Not Available Not Available Zithromax Z-Tip 250 mg tablet TAKE 2 TABLETS (500 MG) BY ORAL ROUTE ONCE DAILY FOR 1 DAY THEN 1 TABLET (250 MG) BY ORAL ROUTE ONCE DAILY FOR 4 DAYS
--- OUTSIDE RECORDS SUMMARY | 2025-02-16 14:31 | XMS_ITS | Clinical Summary ---
Author Organization [facility] Address [address] [place] [address] Phone Care Team Providers Care Advanced Practice Provider Name Role Phone Bentley Kyle MD Primary Care Provider [phone] Allergies Active Allergy Reactions Criticality Noted Date [...] bronchoscopy Immunizations Immunization Administration Dates Next Due ([employer])(12 YR UP) COVID-19 VACCINE - EMERGENCY USE AUTHORIZATION, MRNA, [id number](PF) 30 MCG/0.3 ML IM SUSP 01/10/2021 Influenza Seasonal Unspecified Formulation IM Social History Tobacco Use Types Packs/Day Years Used Date Smoking Tobacco: Never Smokeless Tobacco: Never Sex and Gender Information Value Date Recorded Sex Assigned at Not on file Legal Sex Male 3:05 PM DISPATCHER REFINERY Gender Identity Not on file Sexual Orientation Not on file Last Filed Vital Signs Vital Sign Reading Time Taken Comments Blood Pressure 130/80 11/21/2021 1:06 PM DISPATCHER REFINERY Pulse 87 11/21/2021 1:06 PM DISPATCHER REFINERY Temperature 37.2 C (98.9 F) 04/20/2021 11:16 AM CDT Respiratory Rate 18 04/20/2021 3:29 PM CDT Oxygen Saturation 91% 11/21/2021 1:06 PM DISPATCHER REFINERY 3 L Inhaled Oxygen Concentration - - Weight 116.1 kg (256 lb) 11/21/2021 1:06 PM DISPATCHER REFINERY Height 175.3 cm (5' 9 ) 11/21/2021 1:06 PM DISPATCHER REFINERY Body Mass Index 37.8 11/21/2021 1:06 PM DISPATCHER REFINERY Plan of Treatment Health Maintenance Due Date Last Done Comments DTAP/TDAP/TD VACCINES (1 - Tdap) 01/22/1979 COLORECTAL SCREENING 01/22/2005 Colorectal Cancer Screening 01/22/2005 FIT-DNA Q 3 years 01/22/2005 FIT/FOBT Q 1 year 01/22/2005 Flex Sig/CT Colonography Q 5 years 01/22/2005 ZOSTER VACCINE (1 of 2) 01/22/2010 PNEUMOCOCCAL VACCINE 50+ YEARS (2 of 2 - PCV) 05/08/20 18 05/08/2017 RSV VACCINE (60+ or ) (1 - Risk 60-74 years 1-dose series) 2020 INFLUENZA VACCINE (#1) 2024 08/14/2020 COVID-19 Vaccine (2 - 2023- season) 2024 Insurance MEDICARE PART A AND B [place]ICAID [place] Advance Directives For more information, please contact: [phone] * Full Code (Latest Code Status on File) Date Activated Date Inactivated Comments 04/18/2021 12:14 PM 04/20/2021 6:57 PM Care Teams Advanced Practice Provider Relationship Specialty Start Date End Date Bentley yKle MD [address] [place] [id number] PCP - General Internal Medicine 04/18/21
--- NOTE | ~2025-02-26 | CT_ITS ---
CT Scan of the Chest without Contrast: Clinical Indication: Dyspnea Technique: Contiguous sections were acquired throughout the chest without intravenous contrast. Dose reduction technique was used on this scan by utilizing automated exposure control and iterative recon struction technique. The dose-length product (DLP) was 291.49 mGy-cm. Findings: There is no evidence of any significant mediastinal, hilar or axillary lymphadenopathy. The mediastin al soft tissues appear normal. There is no evidence of pleural or pericardial effusion. There are probable endobronchial valves in the right upper lobe bronchi with complete right upper lob e atelectasis/collapse. There is moderate emphysema in the lungs otherwise. There is mild right lower lobe scarring. Images through the upper abdomen reveal no abnormalities. Impression: Right upper lobe endobronchial valves with complete right upper lobe atelectasis/collapse. Moderate emphysema with right basilar scarring. Reviewed, dictated and finalized at [facility]. Impression: Right upper lobe endobronchial valves with complete right upper lobe atelectasi s/collapse. Moderate emphysema with right basilar scarring.
--- OUTSIDE RECORDS SUMMARY | 2025-02-26 09:16 | XMS_ITS | CONTINUITY OF CARE DOCUMENT ---
Author Name jose juan manzano Address Unknown Organization [facility] Address [address] [place] [address] Phone [phone] Care Team Providers Care Individualized Education Plan Aide Name Role Phone Randy Wynne MD Unavailable [phone] OLIVIA SAUNDERS MD Unavailable [phone] JEAN FINCH MD Unavailable [phone] INSURANCE PROVIDERS Payer name Policy type / Coverage type [place] red [employer] party ID [facility] Medicaid 1 [id number]
--- OUTSIDE RECORDS SUMMARY | 2025-02-26 09:17 | XMS_ITS | Clinical Summary ---
Author Organization [facility] Address [address] [place] [address] Phone Care Team Providers Care Stem Sizer Name Role Phone Bentley Kyle MD Primary Care Provider [phone] Medications PAIN & FEVER EXTRA STRENGTH 500 [...] age to complete this topic Insurance [place], [place] [id number] MEDICARE Care Teams Stem Sizer Relationship Specialty Start Date End Date Bentley Kyle MD [address] [place] [address] PCP - General Internal Medicine 02/01/21
--- OUTSIDE RECORDS SUMMARY | 2025-02-26 09:17 | XMS_ITS | Data Portability ---
Author Organization [facility] Address [address] [place] [address] Care Team Providers Care Heel Burnisher Name Role Phone JORDAN MOSQUEDA Roping Tender [phone] Assessment No assessment recorded. Plan of Treatment Reminders Order Date Submit Date Provider Last Modified By Organization Details Last Modified Time Details Appointments None recorded. Lab hemoglobin + hematocrit , blood 2019 [facility], [address], [address], [address], 0 11:29:35 hemoglobin + hematocrit , blood 2019 020 [facility], [address], [place], [address], 0 11:29:43 Referral None recorded. Procedures None recorded. Surgeries None recorded. Imaging None recorded. Medication Orders tamsulosin 0.4 mg capsule 2019 020 INTERFACE Not available 0 11:29:16 promethazi ne-DM 6.25 mg-15 mg/5 mL oral syrup 2019 020 INTERFACE Not available 0 11:20:00 Patient TargetsNo targets recorded. Patient Instructions Encounter Date Encounter Id Patient Instructions Last Modified By Organization Details Last Modified Time 06/17/2020 [id number] ER (Refused) Discharge summary STAT labs at [facility] Follow up with GI (today) Follow up with the doorperson Follow up in 1-2 weeks gris Not available 06/17/2020 11:23:00 He has refused a n ER evaluation, Me, myself, I feel good gris Not available 06/17/2020 11:22:28 07/15/2020 [id number] Discharge summar y and lab results from gris Not available 07/15/2020 11:35:23 Reason for Referral None Reported. Results Created Date Observation Date Name Description Value Unit Range Abnormal Flag Note LastModifiedBy Organization Detail LastModifiedTime 11/11/19 20 11/11/2019 XR, knee, 3 view No observ ation record ed. [facility] (Imaging) [address] [place], [address], 11/18/2019 10:38:18 12/07/19 20 12/07/2019 LDCT, chest , for lung cance r scree kevin No observ ation record ed. [address] (Imaging) [address] [place], [address], 12/15/2019 14:52:56 06/02/20 20 06/01/2020 XR, chest No observ ation record ed. [facility] (Imaging) [address] [place], [address], 06/17/2020 11:17:19 06/02/20 20 06/02/2020 CT, neck, soft tissu e, w/wo contr ast No observ ation record ed. [facility] (Imaging) [address] [place], [address], 06/17/2020 11:17:19 06/02/20 20 06/02/2020 CT, neck, soft tissu e, w/o contr ast No observ ation record ed. [facility] [address], [place], [address], 06/17/2020 11:17:19 06/03/20 20 06/03/2020 opal martinez ow study No observ ation record ed. [facility] (Imaging) [address] [place], [address], 06/17/2020 11:17:19 06/03/20 20 06/03/2020 XR, chest No observ ation record ed. [facility] (Imaging) [address] [place], [address], 06/17/2020 11:17:19 06/05/20 20 06/05/2020 CT, chest , w/o contr ast No observ ation record ed. [facility] (Imaging) [address] [place], [address], 06/17/2020 11:17:19 Result Notes None recorded. Problems Name Problem SNOMED Code Status Onset Date Resolution Date Notes Provider Name and Address Organization Details Recorded Time Allergic rhinitis 77998766 Active 2017 Katlyn Barrett MD Attn: Accountin g,[address] [facility], [place], [address], [place] [facility] 0 11:06:48 Abnormal weight gain 445137819 Active 2018 Katlyn Barrett MD Attn: Accountin g,[address] [facility], [place], [address], [place] [facility] 0 11:06:48 Heartburn 06045982 Active Katlyn Barrett MD Attn: Accountin g,[address] [facility], [place], [address], [place] [facility] 0 11:06:48 Impotence Active Katlyn Barrett MD Attn: Accountin g,[address] [facility], [place], [address], [place] [facility] 0 11:06:48 Cough 58391796 Active Katlyn Barrett MD Attn: Accountin g,[address] [facility], [place], [address], [place] [facility] 0 11:06:48 Chronic lung disease 949020529 Active Katlyn Barrett MD Attn: Accountin g,[address] [facility], [place], [place], [address] [place] [address] 2, [place] [facility] 0 11:06:48 Knee pain Active Katlyn Barrett MD Attn: Accountin g,[address] [facility], [place], [place], [address] [place] [address] 2, [place] [facility] 0 11:06:48 Chondroma lacia of patella 00815084 Active Katlyn Barrett MD Attn: Accountin g,[address] [facility], [place], [place], [address] [place] [address] 2, [place] [facility] 0 11:06:48 Osteoarth ritis of knee 996351412 Active Katlyn Barrett MD Attn: Accountin g,[address] [place], [place], [address] [place] [address] 2, [place] [facility] 0 11:06:48 Pain of joint 51171870 Active Katlyn Barrett MD Attn: Accountin g,[address] [place], [address] [place] [address] 2, [place] [facility] 0 11:06:48 Muscle pain 05245807 Active Katlyn Barrett MD Attn: Accountin g,[address] [place], [place], [address] [place] [address] 2, [place] [facility] 0 11:06:48 Chronic obstructi ve pulmonary disease 58633471 Active Elaine Jain MD Attn: Accountin g,[address] [place], [address] [place] [address] 2, [place] [facility] 6 14:54:50 Tobacco user 411913892 Active Katlyn Barrett MD Attn: Accountin g,[address] [place], [address] [place] [address] 2, [place] [facility] 0 11:06:48 Low back pain 144878351 Active Katlyn Barrett MD Attn: Nela g,[address] [place], [address] [place] [address] 2, [place] [facility] 0 11:06:48 Paresthes ia 30108773 Active Katlyn Barrett MD Attn: Nela ye,[address] [facility], [place], [address], [place] [facility] 0 11:06:48 Structura l and functiona l abnormali ties of the kidney Completed 01/19/2020 Elaine Jain MD Attn: Nela ye,[address] [facility], [place], [address], [place] [facility] 0 10:39:12 Kidney lesion 682943874381 00 Completed 01/19/2020 Elaine Jain MD Attn: Accountjose e ye,[address] [facility], [place], [address], [place] [facility] 0 10:39:00 Disorder of skin and/or subcutane ous tissue 22046992 Active Katlyn Barrett MD Attn: Nela ye,[address] [facility], [place], [address], [place] [facility] 0 11:06:48 Simple renal cyst 82867884 Active Katlyn Barrett MD Attn: Nela ye,[address] [facility], [place], [address], [place] [facility] 0 11:06:48 Mass of subcutane ous tissue of back 315315080654 103 Active 2015 Katlyn Barrett MD Attn: Nela ye,[address] [facility], [place], [address], [place] [facility] 0 11:06:48 Lower urinary tract symptoms due to benign prostatic hypertrop hy 844203773332 01 Active 2016 Katlyn Barrett MD Attn: Nela ye,[address] [facility], [place], [address], [place] [facility] 0 11:06:48 Constipat ion 09422055 Active 2016 Katlyn Barrett MD Attn: Chadjose e ye,[address] [place], [address], [place] [facility] 0 11:06:48 Problem Notes None recorded. Procedures Surgical History Date Name Laterality Status Provider Name and Address Organization Details Recorded Time 5 Joint Injection completed Ramy Yarbrough [facility] 05/23/2015 15:07:30 Imaging Results Imaging Date Name Status LastModified by Organiz ation Details LastModified Time 11/11/2019 XR, knee, 3 view completed [facility] (Imaging) [address] [place], [address], 11/18/2019 10:38:18 12/07/2019 LDCT, chest, for lung cancer screening completed [address] (Imaging) [address] [place], [address], 12/15/2019 14:52:56 06/01/2020 XR, chest completed [facility] (Imaging) [address] [place], [address], 06/17/2020 11:17:19 06/02/2020 CT, neck, soft tissue, w/wo contrast completed [facility] (Imaging) [address] [place], [address], 06/17/2020 11:17:19 06/02/2020 CT, neck, soft tissue, w/o contrast completed [facility] [address], [place], [address], 06/17/2020 11:17:19 06/03/2020 barium swallow study completed [facility] (Imaging) [address] [place], [address], 06/17/2020 11:17:19 06/03/2020 XR, chest completed [facility] (Imaging) [address] [place], [address], 06/17/2020 11:17:19 06/05/2020 CT, chest, w/o contrast completed [facility] (Imaging) [address] [place], [address], 06/17/2020 11:17:19 Procedure Notes None recorded. Medical Equipment None Reported. Allergies Allergen ID Allergen Name Allergen Category Reaction Reaction Severity Criticality Documentation Date Start Date Code Code System Note Provider Name and Address Organization Details Recorded Time 36139 oxycodone medicatio n itching moderate Not available 12/02/2015 5723 RxNorm Juaquin Gaspar MD [address] [place], [address], [facility] 6 11:11:56 Medications Name Sig Start Date Stop Date Status Note LastModified by Organization Details LastModified Time Prescripti on - Renewal 12/31 completed Script for refill on Oxycodo ne-Acet aminoph en. Not Available Not Available Not Available cyclobenza ajse 10 mg tablet 12/31 completed Not Available [...] Updated DateTime 9 175.26 cm 37.5 kg/m2 208029. 46 g 98.1 [degF] 94 % 94 % 84 /min 122 mm[Hg] 84 mm[Hg] Emilia Hebert MA [facility] 9 10:50:24 Date Recorded Body height Provider Name an d Address Organization Details Last Updated DateTime 01/19/2020 175.26 cm Emilia Hebert MA [facility] 0 09:40:18 Date Recorded Body height Provider Name an d Address Organization Details Last Updated DateTime 05/19/2020 175.26 cm Emilia Hebert MA [facility] 0 09:47:41 Date Recorded Body height Provider Name an d Address Organization Details Last Updated DateTime 06/17/2020 175.26 cm Lalita Buckner MA [facility] 06/17/20 20 10:01:54 Date Recorded Body height Provider Name an d Address Organization Details Last Updated DateTime 07/15/2020 175.26 cm Jenna Molina MA [facility] 020 10:52:41 Social History Question Answer Notes LastModified by Organizat ion Details LastModified Time Tobacco Smoking Status Former Smoker Quit 12/24/2018 Emilia Hebert MA null, [facility] 04/30/2019 10:31:18 What Is Your Level Of [...] SNOMED-CT Code Diagnosis ICD10 Code Diagnosis Note [id number] Elaine Jain MD [facility] (Adult Med) [address] [place] [address] 09/27/2014 15:04:00 09/27/2014 17:04:25 Chronic obstructive pulmonary disease 51157434 Tobacco user 158303043 Low back pain 345505616 Pain of joint 59264032 Paresthesia 08763388 [id number] Elaine Jain MD [facility] (Adult Med) [address] [place] [address] 01/04/2015 14:16:36 01/04/2015 16:04:41 Chronic obstructive pulmonary disease 07597016 Heartburn 19717314 Pain of joint 72491889 Impotence 592972213 [id number] Elaine Jain MD [facility] (Adult Med) [address] [place] [address] 02/03/2015 13:56:33 02/03/2015 14:30:34 Pain of joint 12432949 Chronic ob structive pulmonary disease 06825075 Low back pain 785380512 [id number] Elaine Jain MD [facility] (Adult Med) [address] [place] [address] 02/14/2015 10:05:33 02/14/2015 15:25:14 Cough 36601754 Tobacco user 826514644 Chronic lung disease 479546346 [id number] Elaine Jain MD [facility] (Adult Med) [address] [place] [address] 04/19/2015 12:53:17 04/20/2015 10:06:04 Chronic lung disease 823851922 Low back pain 852319113 Tobacco user 280995591 Heartburn 77916310 [id number] Elaine Jain MD [facility] (Adult Med) [address] [place] [address] 05/17/2015 16:01:13 05/19/2015 11:34:27 Knee pain 66480330 Chronic ob structive pulmonary disease 57747824 Paresthesia 06613997 [id number] Juaquin Gaspar MD [facility] [address] [place] [address] 05/23/2015 14:26:20 05/24/2015 14:55:47 Chondromalacia of patella 66578836 Knee pain 27292072 Osteoarthr itis of knee 028516890 [id number] Juaquin Gaspar MD [facility] [address] [place] [address] 06/30/2015 09:28:33 06/30/2015 15:13:52 [id number] Juaquin Gaspar MD [facility] [address] [address] 08/08/2015 09:05:11 08/08/2015 17:10:25 Knee pain 65614646 M25.561 Osteoarthr itis of knee 252135175 M17.11 Chondromal acia of patella 20579289 M22.41 [id number] Elaine Jain MD [facility] (Adult Med) [address] [place] [address] 08/18/2015 14:02:14 08/18/2015 18:09:16 Low back pain 596035041 M54.5 Osteoarthr itis of knee 596850926 M17.9 [id number] Juaquin Gaspar MD [facility] [address] [place] [address] 12/02/2015 10:57:53 12/02/2015 13:22:24 Knee pain 29320504 M25.561 Osteoarthr itis of knee 790511021 M17.11 Chondromal acia of patella 42592175 M22.41 [id number] Elaine Jain MD [facility] (Adult Med) [address] [place] [address] 01/10/2016 14:32:02 01/10/2016 18:23:06 Chondromalacia of patella 54519875 M22.41 Chronic ob structive pulmonary disease 77094877 J44.9 Knee pain 05816553 M25.5 61 Adult heal th examination 069915680 Z00.01 Screening for malignant neoplasm of colon 341865011 Z12.11 [id number] Elaine Jain MD [facility] (Adult Med) [address] [place] [address] 04/24/2016 14:38:44 04/24/2016 16:44:15 Chronic obstructive pulmonary disease 76280448 J44.9 Cough 24628003 R05 Knee pain 21796817 M25.5 61 Kidney lesion 4180597043 9100 N28.9 Disorder o f skin and/or subcutaneous tissue 05508937 L98.9 Left shoulder region. Will observe at present [id number] MD Michelle Goodwin (Adult Med) [address] [place] [address] 06/05/2016 13:20:16 06/05/2016 18:11:10 Simple renal cyst 27541835 N28.1 Chronic ob structive pulmonary disease 58813370 J44.9 Pain of joint 48405630 M 25.50 Osteoarthr itis of knee 896080126 M17.9 [id number] [facility] [address] [place] [address] 10/04/2016 13:14:32 10/04/2016 15:06:14 Chronic obstructive pulmonary disease 17316464 J44.9 Tobacco user 502357149 Z 72.0 Cough 31696911 R05 [id number] [facility] [address] [place] [address] 11/14/2016 15:26:51 11/14/2016 17:50:37 Chronic obstructive pulmonary disease 72582748 J44.9 Osteoarthr itis of knee 708914386 M17.9 Low back pain 984822322 M54.5 [id number] MD Michelle Goodwin (Adult Med) [address] [place] [address] 01/17/2017 13:02:09 01/17/2017 14:50:29 Chronic obstructive pulmonary disease 72980758 J44.9 Osteoarthr itis of knee 208006732 M17.9 Low back pain 956783444 M54.5 Chondromal acia of patella 94596272 M22.41 Cough 18894921 R05 [id number] Elaine Jain MD [facility] (Adult Med) [address] [place] [address] 04/03/2017 14:05:39 04/17/2017 12:08:04 Chronic obstructive pulmonary disease 45583685 J44.9 Cough 27206787 R05 Impotence 101288949 N52. 9 Osteoarthr itis of knee 482959342 M17.9 [id number] Elaine Jain MD [facility] (Adult Med) [address] [place] [address] 06/27/2017 14:13:46 06/27/2017 16:18:33 Chronic obstructive pulmonary disease 00665638 J44.9 Heartburn 32425309 R12 Lower urin ayaz tract symptoms due to benign prostatic hypertrophy [id number]|2025-02-26 09:17:00|2025-02-26 09:17:00|XMS_ITS|BKG DAEMON|External Medical Summaries|[id number]|" Clinical Summary Created on: February 26, 2025 Bentley Mesa : 1960 Sex: Male Author Organization [facility] Address [address] [place] [address] Phone Care Team Providers Care Heel Burnisher Name Role Phone Bentley Kyle MD Primary Care Provider Allergies Active Allergy Reactions Criticality Noted Date [...] Encounters Date Type Department Care Team Description 02/23/2025 External Device Data [facility] ABSTRACTION Provider, Abstract 02/23/2025 External Device Data [facility] ABSTRACTION Provider, Abstract 02/23/2025 External Device Data [facility] ABSTRACTION Provider, Abstract 02/19/2025 Telephone [facility] Pulmonology [facility] [address] [facility] 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 Gender Identity Not on file Sexual Orientation Not on file Last Filed Vital Signs Vital Sign Reading Time Taken Comments Blood Pressure 130/80 11/21/2021 1:06 PM INDUSTRIAL PAINTER Pulse 87 11/21/2021 1:06 PM INDUSTRIAL PAINTER Temperature 37.2 C (98.9 F) 04/20/2021 11:16 AM CDT Respiratory Rate 18 04/20/2021 3:29 PM CDT Oxygen Saturation 91% 11/21/2021 1:06 PM INDUSTRIAL PAINTER 3 L Inhaled Oxygen Concentration - - Weight 116.1 kg (256 lb) 11/21/2021 1:06 PM INDUSTRIAL PAINTER Height 175.3 cm (5' 9 ) 11/21/2021 1:06 PM INDUSTRIAL PAINTER Body Mass Index 37.8 11/21/2021 1:06 PM INDUSTRIAL PAINTER Plan of Treatment Health Maintenance Due Date [...] Vaccine (2 - 2023- season) 2024 Insurance MEDICAID [place] Advance Directives For more information, please contact: [phone] * Full Code (Latest Code Status on File) Date Activated Date Inactivated Comments 04/18/2021 12:14 PM 04/20/2021 6:57 PM Care Teams Heel Burnisher Relationship Specialty Start Date End Date Bentley Kyle MD [address] [place] [address] PCP - General Internal Medicine 04/18/21 "
--- OUTSIDE RECORDS SUMMARY | 2025-02-26 09:17 | XMS_ITS | Clinical Summary ---
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; Primary osteoarthritis [...] on file Legal Sex Male 8:01 PM MANAGER [employer] Gender Identity Not on file Sexual Orientation Not on file Obstetrics History Last Filed Vital Signs Vital Sign Reading Time Taken Comments Blood Pressure 142/82 09/01/2024 9:08 AM MANAGER [employer] Pulse 85 09/01/2024 9:08 AM MANAGER [employer] Temperature 36.9 C (98.5 F) 04/02/2024 12:40 PM CDT Respiratory Rate 22 09/01/2024 9:08 AM MANAGER [employer] Oxygen Saturation 95% 09/01/2024 9:08 AM MANAGER [employer] Inhaled Oxygen Concentration - - Weight 111.1 [...] Comments PSA SCREEN Routine 09/27/2022 10:21 AM MANAGER [employer] from Last 3 Months or Most Recently Relevant to Health Maintenance Results * PSA screen (09/27/2022 10:21 AM MANAGER [employer]) PSA-Total 0.70 <=5.40 ng/mL TALIB Comment: Interpretive [...] revised 22. Blood 09/27/2022 10:2 1 AM MANAGER [employer] 09/27/2022 10:44 AM MANAGER [employer] Aristeo Khan MD LAB BLOOD ORDERABLES Final Result [facility] [id number] [facility] [place] [address] from Last 3 Months or Most Recently Relevant to Health Maintenance Insurance MEDICARE [place] MEDICARE [facility] MEDICARE ADVANTAGE IDPA [facility] MEDICARE [facility] MEDIC[facility] Address: [address] [address] Care Teams Pipe Welder Relationship Specialty Start Date End Date Aristeo Khan MD [address] [place] [address] PCP - General 06/28/22 Ravi Queen MD [address] [place] [address] [address] GUZM[address]N [address] [place] [id number] Anesthesiologist Pain Management 09/05/22
--- OUTSIDE RECORDS SUMMARY | 2025-02-26 09:17 | XMS_ITS | Encounter Summary ---
Author Organization [facility] Address [address] [place] [address] Care Team Providers Care Keyboarding Clerk Name Role Phone Bentley Kyle MD Primary Care Provider [phone] Reason for Visit * Reason Onset Date Comments Wants Appointment 02/19/2025 Encounter Details Date Type Department Care Team (Late st Contact Info) Description 02/19/2025 Telephone [facility] [address] [place] [address] Carson Pineda MD 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
--- OUTSIDE RECORDS SUMMARY | 2025-02-26 09:17 | XMS_ITS | Data Portability ---
Author Organization [place] [facility], Main Office Address [address] [place] [address] Care Team Providers Care Soaking Tank Worker Name Role Phone GUILLAUME ERAZO Primary Care Provider GUILLAUME ERAZO Referring Provider [phone] Assessment Encounter Date Assessment Date Assessment LastModified by Organization Details LastModified Time 12/22/2024 12/22/2024 I have reconciled the patient's medications post their discharge from inpatient facility. [email or web address] Not available 12/22/2024 14:59:13 Plan of Treatment Reminders Order Date Submit Date Provider Last Modified By Organization Details Last Modified Time Details Appointments Follow Up 15 2024 09:30A Jesu Nolasco NP Not available Not available Not available Lab unlisted lab - CBC study 2024 025 [facility] (Lab), [address] [place], [address], 02/09/2025 09:03:08 CMP, serum or plasma [facility] [address] [place], [address], 02/03/2025 04:55:28 TSH, serum or plasma [address] (Lab), [address] [place], [address], 06/02/2024 10:46:58 T4, free, serum [address] (Lab), [address] [place], [address], 06/02/2024 10:47:09 CBC w/ auto diff [address] (Lab), [address] [place], [address], 06/02/2024 10:46:49 PSA, serum or plasma 2023 024 [facility] (Lab), [address] [place], [address], 03/06/2024 00:11:54 lipid panel, serum 2023 024 [facility] (Lab), [address] [place], [address], 03/06/2024 00:11:55 TSH, serum or plasma [address] (Lab), [address] [place], [address], 03/19/2024 08:05:47 CBC w/ auto diff 2023 024 [facility] (Lab), [address] [place], [address], 03/06/2024 00:11:55 glycohemo globin, total, blood 2023 024 [facility] (Lab), [address] [place], [address], 03/06/2024 00:11:55 CMP, serum or plasma 2023 024 [facility] (Lab), [address] [place], [address], 03/06/2024 00:11:54 Referral occupatio nal therapist referral 2024 025 [facility], [address] [place], [address], 02/10/2025 17:01:41 physical therapist referral 2024 025 [facility], [address] [place], [address], 02/10/2025 17:02:[address] referral - Please call patient to schedule an appointme nt. Thank you. 2023 024 [email or web address] [facility] [address] , [address], [place], [address], 06/30/2024 08:46:[address] referral - Please call patient to schedule an appointme nt. Thank you. 2023 024 [email or web address] [facility] [address] , [address], [place], [address], 04/02/2024 09:31:09 Procedures None recorded. Surgeries None recorded. Imaging CT, chest, w/o contrast - Please call patient to schedule. 2024 025 [facility], [address] [place] [address] , [address], [place], [address], 02/02/2025 14:50:38 Medication Orders prednison e 50 mg tablet 2024 025 [id number], [address] [place], [place], [id number], 02/02/2025 12:21:00 promethaz ine-DM 6.25 mg-15 mg/5 mL oral syrup 2024 025 [facility] [address] In [facility], [address] [place], [address], 12/22/2024 15:04:11 buspirone 5 mg tablet 2024 025 [facility]16253, [address] [place], [place], [id number], 12/22/2024 15:03:13 hydroxyzi ne HCl 25 mg tablet 2024 025 [facility]21524, [address] [place], [place], [id number], 12/22/2024 15:04:35 lorazepam 0.5 mg tablet 2024 025 [email or web address]69758, [address] [place], [place], [id number], 12/22/2024 14:50:36 buspirone 5 mg tablet 2024 025 [facility]05161, [address] [place], [place], [id number], 11/03/2024 15:56:16 Patient TargetsNo targets recorded. Patient Instructions Encounter Date Encounter Id Patient Instructions Last Modified By Organization Details Last Modified Time 03/05/2024 [id number] dementia rating scale-2* [email or web address] Not available 03/05/2024 15:07:17 alcohol misuse* [email or web address] Not available 03/05/2024 15:07:25 depression screening* [email or web address] Not available 03/05/2024 15:07:28 multi-dimensiona l health assessment questionnaire* [email or web address] Not available 03/05/2024 15:07:20 Personalized a [facility] Plan and Screening Recommendations Advance Directives [...] Negative [email or web address] Not available 03/05/2024 14:39:26 12/22/2024 [id number] Thank you for yo ur visit to [...] homebound status}} Required Home Health Services: {{none group home, physical therapy, occupational therapy group home, physical therapy group home}} Durable Medical Equipment needed: {{cane walker walke r with seat manual wheelchair bedside commode oxygen}} Billing Guidelines CPT code 66769- Transitional Care Management services with moderate medical decision complexity (fypx-fr-ysdc visit within 14 days of discharge). CPT code 15213- Transitional Care Management services with high medical decision complexity (jdid-rf-clct visit within 7 days of discharge). [email or web address] Not available 12/22/2024 14:41:35 Reason for Referral Neurologist Referral for Hea dache headaches Please call patient to schedule an appointment. Thank you. Referring Physician: Gumaro Harrison [facility], Encounter Date: 03/05/2024 Neurologist Referral for Hea dache recurrent headaches Please call patient to schedule an appointment. Thank you. Referring Physician: Gumaro Harrison [facility], Encounter Date: 06/02/2024 Occupational Therapist Refer ral for Acute exacerbation of chronic obstructive pulmonary disease Referring Physician: Kiki Nolasco [facility], Encounter Date: 02/02/2025 Physical Therapist Referral for Acute exacerbation of chronic obstructive pulmonary disease Referring Physician: Kiki Nolasco [facility], Encounter Date: 02/02/2025 Results Created Date [...] with a follo w-up test. Not Available [address], [address], 02/03/2025 04:55:27 02/03/20 25 02/03/2025 COMPR EHENS MANPREET METAB OLIC PANEL urea nitrogen (BUN) 8 mg/dL 7-25 normal Not Available [facility] [address] [place], [address], 02/03/2025 04:55:27 02/03/20 25 02/03/2025 COMPR EHENS MANPREET METAB OLIC PANEL creatinine 0.71 mg/dL 0.70-1 .35 normal Not Available [facility] [address], [address], 02/03/2025 04:55:27 02/03/20 25 02/03/2025 COMPR EHENS MANPREET METAB OLIC PANEL eGFR 102 mL/mi n/1.7 3m2 > or = 60 normal Not Available [address], [address], 02/03/2025 04:55:27 02/03/20 25 02/03/2025 COMPR EHENS MANPREET METAB OLIC PANEL BUN/creatini ne ratio SEE NOTE: (calc ) 6-22 Not Repor rakan: BUN and Creat inine are withi n refer ence range . Not Available [address], [address], 02/03/2025 04:55:27 02/03/20 25 02/03/2025 COMPR EHENS MANPREET METAB OLIC PANEL sodium 138 mmol/ L 135-14 6 normal Not Available [address], [address], 02/03/2025 04:55:27 02/03/20 25 02/03/2025 COMPR EHENS MANPREET METAB OLIC PANEL potassium 4.5 mmol/ L 3.5-5. 3 normal Not Available [address], [address], 02/03/2025 04:55:27 02/03/20 25 02/03/2025 COMPR EHENS MANPREET METAB OLIC PANEL chloride 101 mmol/ L 98-110 normal Not Available [address], [address], 02/03/2025 04:55:27 02/03/20 25 02/03/2025 COMPR EHENS MANPREET METAB OLIC PANEL carbon dioxide 28 mmol/ L 20-32 normal Not Available [address], [address], 02/03/2025 04:55:27 02/03/20 25 02/03/2025 COMPR EHENS MANPREET METAB OLIC PANEL calcium 9.8 mg/dL 8.6-10 .3 normal Not Available [address] [place], [address], 02/03/2025 04:55:27 02/03/20 25 02/03/2025 COMPR EHENS MANPREET METAB OLIC PANEL protein, total 7.0 g/dL 6.1-8. 1 normal Not Available [address] [address] [place], [address], 02/03/2025 04:55:27 02/03/20 25 02/03/2025 COMPR EHENS MANPREET METAB OLIC PANEL albumin 4.3 g/dL 3.6-5. 1 normal Not Available [address], [address], 02/03/2025 04:55:27 02/03/20 25 02/03/2025 COMPR EHENS MANPREET METAB OLIC PANEL globulin 2.7 g/dL_ (calc ) 1.9-3. 7 normal Not Available [address], [address], 02/03/2025 04:55:27 02/03/20 25 02/03/2025 COMPR EHENS MANPREET METAB OLIC PANEL albumin/glob ulin ratio 1.6 (calc ) 1.0-2. 5 normal Not Available [address], [address], 02/03/2025 04:55:27 02/03/20 25 02/03/2025 COMPR EHENS MANPREET METAB OLIC PANEL bilirubin, total 0.7 mg/dL 0.2-1. 2 normal Not Available [address], [address], 02/03/2025 04:55:27 02/03/20 25 02/03/2025 COMPR EHENS MANPREET METAB OLIC PANEL alkaline phosphatase 69 U/L 35-144 normal Not Available [address] [address] [place], [address], 02/03/2025 04:55:27 02/03/20 25 02/03/2025 COMPR EHENS MANPREET METAB OLIC PANEL AST 15 U/L 10-35 normal Not Available [address], [address], 02/03/2025 04:55:27 02/03/20 25 02/03/2025 COMPR EHENS MANPREET METAB OLIC PANEL ALT 16 U/L 9-46 normal Not Available [address], [address], 02/03/2025 04:55:27 02/03/20 25 02/03/2025 CBC (INCL UDES DIFF/ PLT) white blood cell count 6.3 thous and/u L 3.8-10 .8 normal Not Available [address], [address], 02/03/2025 04:55:29 02/03/20 25 02/03/2025 CBC (INCL UDES DIFF/ PLT) red blood cell count 4.47 craig on/uL 4.20-5 .80 normal Not Available [address], [address], 02/03/2025 04:55:29 02/03/20 25 02/03/2025 CBC (INCL UDES DIFF/ PLT) hemoglobin 13.8 g/dL 13.2-1 7.1 normal Not Available [address], [address], 02/03/2025 04:55:29 02/03/20 25 02/03/2025 CBC (INCL UDES DIFF/ PLT) hematocrit 42.7 % 38.5-5 0.0 normal Not Available [address], [address], 02/03/2025 04:55:29 02/03/20 25 02/03/2025 CBC (INCL UDES DIFF/ PLT) MCV 95.5 fL 80.0-1 00.0 normal Not Available [address], [address], 02/03/2025 04:55:29 02/03/20 25 02/03/2025 CBC (INCL UDES DIFF/ PLT) MCH 30.9 pg 27.0-3 3.0 normal Not Available [address], [address], 02/03/2025 04:55:29 02/03/20 25 02/03/2025 CBC (INCL UDES DIFF/ PLT) MCHC 32.3 g/dL 32.0-3 6.0 normal For adult s, a sligh t decre ase in the calcu lated MCHC value (in the range of 30 to 32 g/dL) is most likel y not clini chantel signi fican t; armani er, it shoul d be inter prete d with cauti on in [facility] with other red cell hari eters and the patie nt's clini fabian condi tion. Not Available [address], [address], 02/03/2025 04:55:29 02/03/20 25 02/03/2025 CBC (INCL UDES DIFF/ PLT) RDW 12.9 % 11.0-1 5.0 normal Not Available [address], [address], 02/03/2025 04:55:29 02/03/20 25 02/03/2025 CBC (INCL UDES DIFF/ PLT) platelet count 285 thous and/u L 140-40 0 normal Not Available [facility] [address], [address], 02/03/2025 04:55:29 02/03/20 25 02/03/2025 CBC (INCL UDES DIFF/ PLT) MPV 11.3 fL 7.5-12 .5 normal Not Available [facility] [address], [address], 02/03/2025 04:55:29 02/03/20 25 02/03/2025 CBC (INCL UDES DIFF/ PLT) absolute neutrophils 5324 cells /uL 1500-7 800 normal Not Available [address], [address], 02/03/2025 04:55:29 02/03/20 25 02/03/2025 CBC (INCL UDES DIFF/ PLT) absolute lymphocytes 599 cells /uL 850-39 00 low Not Available [address], [address], 02/03/2025 04:55:29 02/03/20 25 02/03/2025 CBC (INCL UDES DIFF/ PLT) absolute monocytes 315 cells /uL 200-95 0 normal Not Available [address], [address], 02/03/2025 04:55:29 02/03/20 25 02/03/2025 CBC (INCL UDES DIFF/ PLT) absolute eosinophils 32 cells /uL 15-500 normal Not Available [address], [address], 02/03/2025 04:55:29 02/03/20 25 02/03/2025 CBC (INCL UDES DIFF/ PLT) absolute basophils 32 cells /uL 0-200 normal Not Available [address], [address], 02/03/2025 04:55:29 02/03/20 25 02/03/2025 CBC (INCL UDES DIFF/ PLT) neutrophils 84.5 % normal Not Available [address], [address], 02/03/2025 04:55:29 02/03/20 25 02/03/2025 CBC (INCL UDES DIFF/ PLT) lymphocytes 9.5 % normal Not Available [facility] [address] [place], [address], 02/03/2025 04:55:29 02/03/20 25 02/03/2025 CBC (INCL UDES DIFF/ PLT) monocytes 5.0 % normal Not Available [address] [address] [place], [address], 02/03/2025 04:55:29 02/03/20 25 02/03/2025 CBC (INCL UDES DIFF/ PLT) eosinophils 0.5 % normal Not Available [facility] [address] [address] [place], [address], 02/03/2025 04:55:29 02/03/20 25 02/03/2025 CBC (INCL UDES DIFF/ PLT) basophils 0.5 % normal Not Available [address], [address], 02/03/2025 04:55:29 02/11/20 24 02/11/2024 XR, chest , 2 view No observ ation record ed. [email or web address] [place] [address], [address], 02/18/2024 09:41:31 02/19/20 24 02/19/2024 LDCT, chest , for lung cance r scree kevin No observ ation record ed. [email or web address] [address] [facility], [place], [address], 03/23/2024 16:47:33 03/24/20 24 03/24/2024 XR, chest , 1 view No observ ation record ed. [email or web address] [place] [address], [address], 04/01/2024 09:41:11 08/25/20 24 08/25/2024 MRI, brain + brain stem, w/o contr ast No observ ation record ed. [email or web address] [address], [address], 08/26/2024 13:59:16 09/06/20 24 09/05/2024 XR, chest , 2 view No observ ation record ed. [email or web address] [id number] [facility] [address], [place], [address], 09/07/2024 09:58:54 01/15/20 25 01/14/2025 XR, chest , 2 view No observ ation record ed. [email or web address] [facility] [address] [facility] [address], [place], [address], 01/14/2025 12:04:43 Result Notes None recorded. Problems Name Problem SNOMED Code Status Onset Date Resolution Date Notes Provider Name and Address Organization Details Recorded Time Chronic obstructiv e pulmonary disease 02274227 Active Not Available [facility] 3 18:04:39 Acute exacerbati on of chronic obstructiv e pulmonary disease 071197071 Active 2016 Not Available [facility] 3 18:04:39 Benign prostatic hyperplasi a 128258534 Active 2016 Not Available [facility] 3 18:04:39 Severe chronic obstructiv e pulmonary disease 683924096 Active 2018 Not Available [facility] 3 18:04:39 Chronic respirator y failure 67735411 Active 2018 Not Available [facility] 3 18:04:39 Ingrowing toenail 532390464 Active 2021 Not Available [facility] 3 18:04:39 Foot pain 21744279 Active 2021 Not Available [facility] 3 18:04:39 Tobacco dependence syndrome 84020184 Active Not Available [facility] 3 18:04:39 Seasonal allergy 643635954 Active 2022 RAY Leal [address] [facility] [address], [place], [address] , [facility] [employer] [facility] 3 10:55:26 Chronic cough 12375547 Active 2022 RAY Leal [address], [address], [place], [address] , [facility] 3 10:56:49 Pain of right knee joint 0267463320013 00 Active 2022 RAY Leal [address], [address], [place], [address] , [facility] 3 11:01:39 Gastroesop hageal reflux disease 167858570 Active 2022 RAY Leal [address], [address], [place], [address] , [facility] 3 11:04:34 Lower abdominal pain 93586774 Active 2022 RAY Leal [address], [address], [place], [address] , [facility] 3 10:57:20 Anxiety 77498157 Active 2022 Jolynn quintana, [facility] 3 09:41:00 Arthritis 1248041 Active 2022 Jolynn quintana, [facility] 3 09:41:08 Disorder of eye 383213541 Active 2022 Jolynn quintana, [place] [facility] 3 09:41:15 Headache 19309448 Active 2022 Jolynn quintana, [facility] 3 09:41:22 Heartburn 07998027 Active 2022 Jolynn quintana, [place] [facility] 3 09:41:29 Disorder of lung 67529726 Active 2022 Jolynn quintana, [facility] 3 09:41:38 Ingrowing nail of toe of right foot 6036204983525 9102 Active 2022 Mata Lugo DPM [address], [address], [place], [address] , [place] [facility] 3 10:57:35 Pain of right hip joint 0617262922817 02 Active 2022 GILMAR Velasquez [address], [address], [place], [address] , [facility] 3 16:05:21 Low back pain 276770381 Active 2022 GILMAR Velasquez [address], [address], [place], [address] , [facility] 3 14:31:44 Hyperthyro idism 45694880 Active 2023 GILMAR Velasquez [address], [address], [place], [address] , [facility] 4 10:06:09 Upper respirator y infection 21256302 Active 2024 GILMAR Thomas [address], [address], [place], [address] , [facility] 5 14:06:12 Dyspnea at rest 687889677 Active 2024 GILMAR Thomas [address], [address], [place], [address] , [facility] 5 12:14:36 Chest pain 34184198 Active 2024 GILMAR Thomas [address], [address], [place], [address] , [facility] 5 12:15:51 Burning chest pain Active 2024 GILMAR Thomas [address], [address], [place], [address] , [facility] 5 12:16:19 Acute urticaria 076573332 Active 2024 GILMAR Thomas [address], [address], [place], [address] , [facility] [employer] [facility] 13:52:20 Notes:PULMONARY DISEASE, USE OF NSAIDS Problem Notes None recorded. Procedures Surgical History Date Name Laterality Status Provider Name and Address Organization Details Recorded Time 03/05/20 Medicare Wellness CPT Code, subsequent completed Hortencia Gallagher RN [place] [employer] [facility] 03/05/2024 09:30:38 06/06/20 Nail Debridement completed Mata Lugo DPM [address], [address], [place], [address], [facility] [employer] 06/06/2023 10:57:28 02/27/20 Medicare Wellness CPT Code, Initial completed RAY Leal [address], [address], [place], [address], [facility] [employer] 02/26/2023 12:38:15 Unlisted procedure nose completed Not Available [facility] 12/12/2022 18:04:04 Imaging Results Imaging Date Name Status LastModified by Organiz ation Details LastModified Time 02/11/2024 XR, chest, 2 view completed [address], [address], 02/18/2024 09:41:31 02/19/2024 LDCT, chest, for lung cancer screening completed [email or web address] [address], [address], 03/23/2024 16:47:33 03/24/2024 XR, chest, 1 view completed [address], [address], 04/01/2024 09:41:11 08/25/2024 MRI, brain + brain stem, w/o contrast completed [email or web address] [place] [address], [address], 08/26/2024 13:59:16 09/05/2024 XR, chest, 2 view completed [email or web address] [address], [address], 09/07/2024 09:58:54 01/14/2025 XR, chest, 2 view completed [facility] [address], [place], [address], 01/14/2025 12:04:43 Procedure Notes None recorded. Medical Equipment None Reported. Allergies Allergen ID Allergen Name Allergen Category Reaction Reaction Severity Criticality Documentation Date Start Date Code Code System Note Provider Name and Address Organization Details Recorded Time 79650 oxycodone medicatio n itching Not available low 12/12/2022 7804 [employer] FABIO Nguyen, JAILENE - [facility] [email or web address] 11:58:56 Medications Name Sig Start Date Stop [...] ORAL ROUTE ONCE DAILY FOR 4 DAYS 764022|[id number]|2025-02-26 09:17:00|2025-02-26 09:16:00|XMS_ITS|ARTURO ELIZONDO|External Medical Summaries|[id number]|" Referral Summary Created on: February 26, 2025 Bentley Mesa : 1960 Sex: Male Author Organization [facility] Address [address] [place] [address] Care Team Providers Care Soaking Tank Worker Name Role Phone Aristeo Khan MD Primary Care Provider Ravi Queen MD Unavailable [phone] Encounters Date Type Department Care Team Description 12/01/2024 8:22 AM [facility] - 12/01/2024 11:59 PM [facility] Hospital Encounter [facility] [address] [place] [address] 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 06/14 Resolved [...] on file Legal Sex Male 8:01 PM [facility] Gender Identity Not on file Sexual Orientation Not on file Last Filed Vital Signs Vital Sign Reading Time Taken Comments Blood Pressure 142/82 09/01/2024 9:08 AM [facility] Pulse 85 09/01/2024 9:08 AM [facility] Temperature 36.9 C (98.5 F) 04/02/2024 12:40 PM CDT Respiratory Rate 22 09/01/2024 9:08 AM [facility] Oxygen Saturation 95% 09/01/2024 9:08 AM [facility] Inhaled Oxygen Concentration - - Weight 111.1 [...] Comments PSA SCREEN Routine 09/27/2022 10:21 AM [facility] from Last 3 Months or Most Recently Relevant to Health Maintenance Results * PSA screen (09/27/2022 10:21 AM [facility]) PSA-Total 0.70 <=5.40 ng/mL [facility] Comment: [...] revised 22. Blood 09/27/2022 10:2 1 AM [facility] 09/27/2022 10:44 AM [facility] us Aristeo Khan MD LAB BLOOD ORDERABLES Final Result [facility] [address] [facility] Department of Laboratories [place], [place] [id number] from Last 3 Months or Most Recently Relevant to Health Maintenance Insurance MEDICARE [facility] MEDICARE [facility] IDPA [facility] MEDICARE [facility] Address: [address] [address] [place] [address] IDPA [facility] MEDICARE [facility] Address: [facility] [address] [place] [address] Care Teams Soaking Tank Worker Relationship Specialty Start Date End Date Aristeo Khan MD [address] [place] [address] PCP - General 06/28/22 Ravi Queen MD [address] [facility] [address] [place] [address] [place] [address] Anesthesiologist Pain Management 09/05/22 "
== END 2025-02-26 09:05 | disposition home or self-care (01) ==
LOC: ANHIMG 09:04
PROVIDERS: PCP Nurse Practitioner Family; Visit Provider Nurse Practitioner Family
DX: R06.00 Dyspnea, unspecified (principal); J43.9 Emphysema, unspecified
CPT/HCPCS: 71250

== ENCOUNTER 2025-03-18 07:51 | Outpatient (CLI) | payer MEDICARE, MEDICAID, SELFPAY ==
--- OUTSIDE RECORDS SUMMARY | 2025-03-18 07:53 | XMS_ITS | Clinical Summary ---
Author Organization [facility] 8 [facility] Address [address] [place] [address] Care Team Providers Care Dynamite Packing Machine Feeder Name Role Phone Aristeo Khan MD Primary Care Provider Ravi Queen MD Unavailable [phone] Allergies Active Allergy Reactions Criticality Noted Date [...] needed for pain 120 tablet 02/07/20 25 Active naloxone (NARCAN) 4 mg/actuation spray,non-aeroso lIndications:John g term (current) use of opiate analgesic Administer 1 spray into affected nostril(s) as needed for opioid reversal 1 each 12/01/19 25 Active hydrOXYzine (ATARAX) 25 mg tablet Take 1 tablet (25 mg total) by mouth daily as needed for anxiety 02/11/20 25 Active HYDROcodone-acet aminophen (NORCO) 5-325 mg per tabletIndication s:Pain Take 1 tablet by mouth 4 (four) times a day as needed for pain 120 tablet 03/11/20 25 025 Active HYDROcodone-acet aminophen (NORCO) 5-325 mg per tabletIndication s:Pain Take 1 tablet by mouth 4 (four) times a day as needed for pain 120 tablet 04/10/20 25 025 Active HYDROcodone-acet aminophen (NORCO) 5-325 mg per tabletIndication s:Pain Take 1 tablet by mouth 4 (four) times a day as needed for pain 120 tablet 05/10/20 25 025 Active HYDROcodone-acet aminophen (NORCO) 5-325 mg per tabletIndication s:Pain Take 1 tablet by mouth 4 (four) times a day as needed for pain 120 tablet 12/08/19 25 025 Discontin ued(Reord er) HYDROcodone-acet aminophen (NORCO) 5-325 mg per tabletIndication s:Pain Take 1 tablet by mouth 4 (four) times a day as needed for pain 120 tablet 01/08/20 25 025 Discontin ued(Reord er) Active Problems Problem Noted Date Diagnosed Date Lumbar radicular pain 08/01/2023 Chronic right-sided low back pain 08/01/2023 Osteoarthritis of right knee 06/28/2022 Insomnia secondary to chronic pain 06/28/2022 FPC (current) use of opiate analgesic 06/14 Resolved Problems Problem Noted Date Diagnosed Date Resolved Date Chronic pain of right knee 06/28/2022 0 11/13/2023 Encounters Date Type Department Care Team Description 03/02/2025 9:59 AM CDT - 03/02/2025 11:59 PM CDT Hospital Encounter [facility] [address] [place] [address] A, 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 Gender Identity Not on file Sexual Orientation Not on file Obstetrics History Last Filed Vital Signs Vital Sign Reading Time Taken Comments Blood Pressure 130/93 03/02/2025 10:20 AM CDT Pulse 112 03/02/2025 10:20 AM CDT Temperature 36.9 C (98.5 F) 04/02/2024 12:40 PM CDT Respiratory Rate 16 03/02/2025 10:20 AM CDT Oxygen Saturation 97% 03/02/2025 10:20 AM CDT Inhaled Oxygen Concentration - - Weight 111.1 kg (245 lb) 04/24/2019 10:20 AM CDT Height 172.7 cm (5' 8) 04/24/2019 10:20 AM CDT Body Mass Index 37.25 04/24/2019 10:20 AM CDT Plan of Treatment Health Maintenance Due Date Last Done Comments Colon Cancer Screening-Colonoscopy 1960 Hepatitis C Screening 1960 Hepatitis B Screening 01/22/1978 Zoster Vaccine (1 of 2) 01/22/2010 Pneumococcal vaccine 65+ (2 of 2 - PCV) 05/08/2018 05/08/2017 Fall Risk Assessment 05/23/2024 05/23/2023 Covid-19 Vaccine (4 - 2023-2 5 season) 2024 01/18/2022, 07/08/2021, 01/10/2021 Prostate Cancer Screening-PSA 09/27/2024 09/27/2022 Abdominal Aortic Aneurysm (A AA) Screen 01/22/2025 Well Visit 65+ 01/22/2025 Influenza Vaccine (Season Ended) 2025 07/08/2021, 08/14/2020, 07/14/2019, Additional history exists Depression Screening 03/02/2026 03/02/2025, 03/02/2025, 12/01/2024, Additional history exists DTaP/Tdap/Td Vaccine (2 - Td or Tdap) 02/26/2033 02/26/2023 Goals Goal Patient Goal Type Associated Problems Recent Progress Patient-Stated? Author [facility] On track( 025 10:33 AM CDT) No Esperanza Amaral, GORDON Note: Patient will establish a comfort-function goal and identify the pain level that will allow the patient to perform desired activities and achieve an acceptable quality of life. Procedures Procedure Name Priority Date/Time Associated Diagnosis Comments PSA SCREEN Routine 09/27/2022 10:21 AM ENGINE ROOM HELPER from Last 3 Months or Most Recently Relevant to Health Maintenance Results * PSA screen (09/27/2022 10:21 AM ENGINE ROOM HELPER) PSA-Total 0.70 <=5.40 ng/mL [facility]A Comment: [...] revised 22. Blood 09/27/2022 10:2 1 AM ENGINE ROOM HELPER 09/27/2022 10:44 AM ENGINE ROOM HELPER us Aristeo Khan MD LAB BLOOD ORDERABLES Final Result TAL[facility] [address] [facility] [place] [address] from Last 3 Months or Most Recently Relevant to Health Maintenance Insurance MEDICARE IDPA MEDICARE [facility] Address: [address] [address] [place] [address] [facility] PLAN [employer] [facility] MEDICARE [employer]VANTAGE [facility] MEDICARE Address: [address] [address] [place] [address] IDPA [facility] MEDICARE ADVANTAGE [facility] MEDICARE Address: [address] [address] [place] [address] Care Teams Dynamite Packing Machine Feeder Relationship Specialty Start Date End Date Aristeo Khan MD [address] [place] [address] PCP - General 06/28/22 Ravi Queen MD [address] [place] [address] [place] [address] Anesthesiologist Pain Management 09/05/22
--- OUTSIDE RECORDS SUMMARY | 2025-03-18 07:53 | XMS_ITS | Referral Summary ---
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 Discharge [...] /3 mL (0.083 %) nebulizer solution 06/26/20 Active Daliresp 500 mcg tablet 06/02/20 Active aspirin 81 mg enteric coated tablet [...] Insomnia secondary to chronic pain 06/28/2022 superintendent container terminal (current) use of 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 Procedures Procedure Name Priority Date/Time Associated Diagnosis Comments PSA SCREEN Routine 09/27/2022 10:21 AM COMMUNITY PHARMACIST from Last 3 Months or Most Recently Relevant to Health Maintenance Results * PSA screen (09/27/2022 10:21 AM COMMUNITY PHARMACIST) PSA-Total 0.70 <=5.40 ng/mL [facility] VILA Comment: [...] revised 22. Blood 09/27/2022 10:2 1 AM COMMUNITY PHARMACIST 09/27/2022 10:44 AM COMMUNITY PHARMACIST us Aristeo Khan MD LAB BLOOD ORDERABLES Final Result [facility] [address] [facility] Department [place] [address] from Last 3 Months or Most Recently Relevant to Health Maintenance Insurance MEDICARE [facility] MEDICARE [facility] PLAN IDPA [facility] MEDICARE ADVANTAGE IDPA [facility] MEDICARE ADVANTAGE Care Teams Carton Filler Relationship Specialty Start Date End Date Aristeo Khan MD [address] [place] [address] PCP - General 06/28/22 Ravi Queen MD [address] [facility] [facility] [address] [place] [address] [place] [id number] Anesthesiologist Pain Management 09/05/22
--- OUTSIDE RECORDS SUMMARY | 2025-03-18 07:53 | XMS_ITS | Data Portability ---
Author Organization [facility] JIMBOFrancia Address [address] [place] [address] Care Team Providers Care Linux Network Systems Administrator Name Role Phone JORDAN MOSQUEDA Cork Insulation Setter Assessment No assessment recorded. Plan of Treatment Reminders Order Date Submit Date Provider Last Modified By Organization Details Last Modified Time Details Appointments None recorded. Lab hemoglobin + hematocrit , blood 2019 [facility], [address] [place] [address], [address], [place], [address], 0 11:29:35 hemoglobin + hematocrit , blood 2019 020 [facility] Lab Orders, [address], [place], [address], 0 11:29:43 Referral None recorded. Procedures None recorded. Surgeries None recorded. Imaging None recorded. Medication Orders tamsulosin 0.4 mg capsule 2019 020 INTERFACE Not available 0 11:29:16 promethazi ne-DM 6.25 mg-15 mg/5 mL oral syrup 2019 020 INTERFACE Not available 0 11:20:00 Patient TargetsNo targets recorded. Patient Instructions Encounter Date Encounter Id Patient Instructions Last Modified By Organization Details Last Modified Time 06/17/2020 [id number] ER (Refused) Discharge summary STAT labs at [facility] Follow up with GI (today) Follow up with the poultry helper Follow up in 1-2 weeks gris Not available 06/17/2020 11:23:00 He has refused a n ER evaluation, Me, myself, I feel good gris Not available 06/17/2020 11:22:28 07/15/2020 [id number] Discharge summar y and lab results from MATHEW landry Not available 07/15/2020 11:35:23 Reason for Referral None Reported. Results Created Date Observation Date Name Description Value Unit Range Abnormal Flag Note LastModifiedBy Organization Detail LastModifiedTime 11/11/19 20 11/11/2019 XR, knee, 3 view No observ ation record ed. [facility] (Imaging) [address] [place], [address], 11/18/2019 10:38:18 12/07/19 20 12/07/2019 LDCT, chest , for lung cance r scree kevin No observ ation record ed. [address] (Imaging) [address] [place], [address], 12/15/2019 14:52:56 06/02/20 20 06/01/2020 XR, chest No observ ation record ed. [facility] (Imaging) [address] [place], [address], 06/17/2020 11:17:19 06/02/20 20 06/02/2020 CT, neck, soft tissu e, w/wo contr ast No observ ation record ed. [facility] (Imaging) [address] [place], [address], 06/17/2020 11:17:19 06/02/20 20 06/02/2020 CT, neck, soft tissu e, w/o contr ast No observ ation record ed. [facility] [address], [place], [address], 06/17/2020 11:17:19 06/03/20 20 06/03/2020 opal martinez ow study No observ ation record ed. [facility] (Imaging) [address] [place], [address], 06/17/2020 11:17:19 06/03/20 20 06/03/2020 XR, chest No observ ation record ed. [facility] (Imaging) [address] [place], [address], 06/17/2020 11:17:19 06/05/20 20 06/05/2020 CT, chest , w/o contr ast No observ ation record ed. [facility] (Imaging) [address] [place], [address], 06/17/2020 11:17:19 Result Notes None recorded. Problems Name Problem SNOMED Code Status Onset Date Resolution Date Notes Provider Name and Address Organization Details Recorded Time Allergic rhinitis 61707012 Active 2017 Katlyn Barrett MD Attn: Accountin g,[address] [address], [place], [address], [place] [facility] 0 11:06:48 Abnormal weight gain 818596119 Active 2018 Katlyn Barrett MD Attn: Accountin g,[address] [address], [place], [address], [place] [facility] 0 11:06:48 Heartburn 13604194 Active Katlyn Barrett MD Attn: Accountin g,[address] [facility] [address], [place], [address], [place] [facility] 0 11:06:48 Impotence Active Katlyn Barrett MD Attn: Accountin g,[address] [facility], [place], [address], [place] [facility] 0 11:06:48 Cough 88993512 Active Katlyn Barrett MD Attn: Accountin g,[address] [facility] [address] [address], [place], [address], [place] [facility] 0 11:06:48 Chronic lung disease 939234653 Active Katlyn Barrett MD Attn: Accountin g,[address] [facility], [place], [address] [place] [address] 2, [place] [facility] 0 11:06:48 Knee pain Active Katlyn Barrett MD Attn: Accountin g,[address] [place], [place], [address] [place] [address] 2, [place] [facility] 0 11:06:48 Chondroma lacia of patella 87904346 Active Katlyn Barrett MD Attn: Accountin g,[address] [place], [place], [address] [place] [address] 2, [place] [facility] 0 11:06:48 Osteoarth ritis of knee 605996928 Active Katlyn Barrett MD Attn: Accountin g,[address] [place], [place], [address] [place] [address] 2, [place] [facility] 0 11:06:48 Pain of joint 57647540 Active Katlyn Barrett MD Attn: Accountin g,[address] [place], [place], [address] [place] [address] 2, [place] [facility] 0 11:06:48 Muscle pain 84106433 Active Katlyn Barrett MD Attn: Accountin g,[address] [place], [place], [address] [place] [address] 2, [place] [facility] 0 11:06:48 Chronic obstructi ve pulmonary disease 19061341 Active Elaine Jain MD Attn: Accountin g,[address] [place], [place], [address] [place] [address] 2, [place] [facility] 6 14:54:50 Tobacco user 876564530 Active Katlyn Barrett MD Attn: Accountin g,[address] [place], [place], [address] [place] [address] 2, [place] [facility] 0 11:06:48 Low back pain 994332234 Active Katlyn Barrett MD Attn: Accountjose e g,[address] [place], [place], [address] [place] [address] 2, [place] [facility] 0 11:06:48 Paresthes ia 39086309 Active Katlyn Barrett MD Attn: Nela ye,[address] [facility], [place], [address], [place] [facility] 0 11:06:48 Structura l and functiona l abnormali ties of the kidney Completed 01/19/2020 Elaine Jain MD Attn: Nela ye,[address] [facility], [place], [address], [place] [facility] 0 10:39:12 Kidney lesion 461339730581 00 Completed 01/19/2020 Elaine Jain MD Attn: Nela ye,[address] [facility], [place], [address], [place] [facility] 0 10:39:00 Disorder of skin and/or subcutane ous tissue 10059900 Active Katlyn Barrett MD Attn: Nela ye,[address] [facility], [place], [address], [place] [facility] 0 11:06:48 Simple renal cyst 17096680 Active Katlyn Barrett MD Attn: Nela ye,[address] [facility], [place], [address], [place] [facility] 0 11:06:48 Mass of subcutane ous tissue of back 955642930816 103 Active 2015 Katlyn Barrett MD Attn: Nela ye,[address] [facility], [place], [address], [place] [facility] 0 11:06:48 Lower urinary tract symptoms due to benign prostatic hypertrop hy 095288816047 01 Active 2016 Katlyn Barrett MD Attn: Nela ye,[address] [facility], [place], [address], [place] [facility] 0 11:06:48 Constipat ion 54291141 Active 2016 Katlyn Barrett MD Attn: Nela ye,[address] [facility], [place], [address], [place] [facility] 0 11:06:48 Problem Notes None recorded. Procedures Surgical History Date Name Laterality Status Provider Name and Address Organization Details Recorded Time 5 Joint Injection completed Ramy Yarbrough [place] - [facility] 05/23/2015 15:07:30 Imaging Results None recorded. Procedure Notes None recorded. Medical Equipment None Reported. Allergies Allergen ID Allergen Name Allergen Category Reaction Reaction Severity Criticality Documentation Date Start Date Code Code System Note Provider Name and Address Organization Details Recorded Time 86385 oxycodone medicatio n itching moderate Not available 12/02/2015 7804 RxNorm Juaquin Gaspar MD [address] [place], [address], [facility] - [facility], [facility] 6 11:11:56 Medications Name Sig Start Date [...] Not Available Vitals Date Recorded Body height Provider Name an d Address Organization Details Last Updated DateTime 01/19/2020 175.26 cm Emilia Hebert MA [facility] 0 09:40:18 Date Recorded Body height Provider Name an d Address Organization Details Last Updated DateTime 05/19/2020 175.26 cm Emilia Hebert MA [facility] 0 09:47:41 Date Recorded Body height Provider Name an d Address Organization Details Last Updated DateTime 06/17/2020 175.26 cm Lalita FABIO Buckner [facility] 06/17/20 20 10:01:54 Date Recorded Body height Provider Name an d Address Organization Details Last Updated DateTime 07/15/2020 175.26 cm Jenna MolinaFABIO [facility] 020 10:52:41 Date Recorded Body height Body mass index (BMI) Body weight Body temperature Oxygen saturation Oxygen saturation in Arterial blood by Pulse oximetry Heart rate Systolic blood pressure Diastolic blood pressure Provider Name and Address Organization Details Last Updated DateTime 9 175.26 cm 37.5 kg/m2 761034. 46 g 98.1 [degF] 94 % 94 % 84 /min 122 mm[Hg] 84 mm[Hg] Emilia Hebert MA [facility] 9 10:50:24 Social History Question Answer Notes LastModified by Organizat ion Details LastModified Time Tobacco Smoking Status Former Smoker Quit 12/24/2018 [facility] 04/30/2019 10:31:18 What Is Your [...] SNOMED-CT Code Diagnosis ICD10 Code Diagnosis Note [id number] MD Michelle Goodwin (Adult Med) [address] [place] [address] 09/27/2014 15:04:00 09/27/2014 17:04:25 Chronic obstructive pulmonary disease 75064051 Tobacco user 338310381 Low back pain 620044824 Pain of joint 31838259 Paresthesia 89725352 [id number] MD Michelle Goodwin (Adult Med) [address] [place] [address] 01/04/2015 14:16:36 01/04/2015 16:04:41 Chronic obstructive pulmonary disease 73300063 Heartburn 11414863 Pain of joint 78215738 Impotence 525127350 [id number] MD Michelle Goodwin (Adult Med) [address] [place] [address] 02/03/2015 13:56:33 02/03/2015 14:30:34 Pain of joint 51617669 Chronic ob structive pulmonary disease 86816941 Low back pain 569588554 [id number] MD Michelle Goodwin (Adult Med) [address] [place] [address] 02/14/2015 10:05:33 02/14/2015 15:25:14 Cough 04024500 Tobacco user 041994338 Chronic lung disease 296988519 [id number] MD Michelle Goodwin (Adult Med) [address] [place] [address] 04/19/2015 12:53:17 04/20/2015 10:06:04 Chronic lung disease 396240986 Low back pain 749349874 Tobacco user 308567196 Heartburn 19688904 [id number] Elaine Jain MD [facility] (Adult Med) [address] [place] [address] 05/17/2015 16:01:13 05/19/2015 11:34:27 Knee pain 85388420 Chronic ob structive pulmonary disease 28126316 Paresthesia 47466468 [id number] Juaquin Gaspar MD [facility] [address] [place] [address] 05/23/2015 14:26:20 05/24/2015 14:55:47 Chondromalacia of patella 39689482 Knee pain 48133665 Osteoarthr itis of knee 221006873 [id number] Juaquin Gaspar MD [facility] [address] [place] [address] 06/30/2015 09:28:33 06/30/2015 15:13:52 [id number] Juaquin Gaspar MD [facility] [address] [place] [address] 08/08/2015 09:05:11 08/08/2015 17:10:25 Knee pain 55083874 M25.561 Osteoarthr itis of knee 645222443 M17.11 Chondromal acia of patella 65280180 M22.41 [id number] Elaine Jain MD [facility] (Adult Med) [address] [place] [address] 08/18/2015 14:02:14 08/18/2015 18:09:16 Low back pain 349891638 M54.5 Osteoarthr itis of knee 210040208 M17.9 [id number] Juaquin Gaspar MD [facility] [address] [place] [address] 12/02/2015 10:57:53 12/02/2015 13:22:24 Knee pain 22919008 M25.561 Osteoarthr itis of knee 338807375 M17.11 Chondromal acia of patella 32759973 M22.41 [id number] Elaine Jain MD [facility] (Adult Med) [address] [place] [address] 01/10/2016 14:32:02 01/10/2016 18:23:06 Chondromalacia of patella 08648788 M22.41 Chronic ob structive pulmonary disease 48604694 J44.9 Knee pain 64463585 M25.5 61 Adult heal th examination 965336935 Z00.01 Screening for malignant neoplasm of colon 345859837 Z12.11 [id number] MD Michelle Goodwin (Adult Med) [address] [place] [address] 04/24/2016 14:38:44 04/24/2016 16:44:15 Chronic obstructive pulmonary disease 46807623 J44.9 Cough 47368590 R05 Knee pain 62085735 M25.5 61 Kidney lesion 9372930805 9100 N28.9 Disorder o f skin and/or subcutaneous tissue 35296383 L98.9 Left shoulder region. Will observe at present [id number] MD Michelle Goodwin (Adult Med) [address] [place] [address] 0 06/05/2016 13:20:16 06/05/2016 18:11:10 Simple renal cyst 88997076 N28.1 Chronic ob structive pulmonary disease 72931410 J44.9 Pain of joint 80388002 M 25.50 Osteoarthr itis of knee 445101562 M17.9 [id number] MD Michelle Goodwin (Adult Med) [address] [place] [address] 0 10/04/2016 13:14:32 10/04/2016 15:06:14 Chronic obstructive pulmonary disease 66108978 J44.9 Tobacco user 848480346 Z 72.0 Cough 09893676 R05 [id number] MD Michelle Goodwin (Adult Med) [address] [place] [address] 0 11/14/2016 15:26:51 11/14/2016 17:50:37 Chronic obstructive pulmonary disease 58195633 J44.9 Osteoarthr itis of knee 990270071 M17.9 Low back pain 049124078 M54.5 [id number] Elaine Jain MD [facility] (Adult Med) [address] [place] [address] 0 01/17/2017 13:02:09 01/17/2017 14:50:29 Chronic obstructive pulmonary disease 16853956 J44.9 Osteoarthr itis of knee 208929388 M17.9 Low back pain 918910643 M54.5 Chondromal acia of patella 41041943 M22.41 Cough 14189597 R05 [id number] MD Michelle Goodwin (Adult Med) [address] [place] [address] 04/03/2017 14:05:39 04/17/2017 12:08:04 Chronic obstructive pulmonary disease 57705454 J44.9 Cough 20411546 R05 Impotence 751206943 N52. 9 Osteoarthr itis of knee 255426550 M17.9 [id number] MD Michelle Goodwin (Adult Med) [address] [place] [address] 0 06/27/2017 14:13:46 06/27/2017 16:18:33 Chronic obstructive pulmonary disease 10635852 J44.9 Heartburn 32567708 R12 Lower urin ayaz tract symptoms due to benign prostatic hypertrophy 9283924108 9101 N40.1 Constipation 57825891 K5 9.00 [id number] MD Michelle Goodwin (Adult Med) [address] [place] [address] 0 12/26/2017 14:52:39 12/26/2017 16:26:13 Chronic obstructive pulmonary disease 49960459 J44.9 Lower urin ayaz tract symptoms due to benign prostatic hypertrophy 1670604600 9101 N40.1 Heartburn 26870798 R12 Allergic rhinitis 780672 04 J30.9 [id number] MD Michelle Goodwin (Adult Med) [address] [place] [address] 0 05/13/2018 10:58:42 05/13/2018 12:48:47 Chronic lung disease 252178573 J98.4 Chondromal acia of patella 30474081 M22.41 Chronic ob structive pulmonary disease 74724511 J44.9 Lower urin ayaz tract symptoms due to benign prostatic hypertrophy 0134161320 9101 N40.1 Heartburn 88656709 R12 Osteoarthr itis of knee 026478877 M17.9 [id number] Elaine Jain MD [facility] (Adult Med) [address] [place] [address] 0 09/02/2018 11:13:37 09/02/2018 13:04:53 Chronic obstructive pulmonary disease 12072810 J44.9 Osteoarthr itis of knee 675998755 M17.9 Low back pain 023709982 M54.5 Chondromal acia of patella 61444169 M22.41 Paresthesia 81877343 R20 .2 Heartburn 36579397 R12 [id number] MD Michelle Goodwin (Adult Med) [address] [place] [address] 0 10/29/2018 12:03:21 10/30/2018 09:23:48 Chronic obstructive pulmonary disease 25475796 J44.[address] showed new abnormalit ies. Will refer back to pulmonary. Tobacco user 057570229 Z 72.0 Computed t omography result abnormal 661603188 R93.89 [id number] [facility] [address] [place] [address] 0 12/31/2018 12:05:34 01/01/2019 12:22:50 Chronic obstructive pulmonary disease 04699513 J44.9 Osteoarthr itis of knee 363645268 M17.9 Knee pain 43161794 M25.5 61 Allergic rhinitis 521747 04 J30.9 [id number] MD Michelle Goodwin (Adult Med) [address] [place] [address] 0 04/30/2019 09:25:34 05/01/2019 09:51:56 Chronic obstructive pulmonary disease 81842071 J44.9 Heartburn 79019232 R12 Osteoarthr itis of knee 676260040 M17.9 Knee pain 67427594 M25.5 61 Lower urin ayaz tract symptoms due to benign prostatic hypertrophy 8456569995 9101 N40.1 Abnormal weight gain 161 707868 R63.5 Discussed importance of improved dietary habits Cough 46294594 R05 [id number] [facility] [address] [place] [address] 0 08/25/2019 09:39:42 08/25/2019 11:14:40 Chronic obstructive pulmonary disease 80200488 J44.9 Osteoarthr itis of knee 865191681 M17.9 Low back pain 304915701 M54.5 Lower urin ayaz tract symptoms due to benign prostatic hypertrophy 5385597594 9101 N40.1 [id number] [facility] [address] [place] [address] 0 01/19/2020 09:39:38 01/20/2020 12:11:56 Chronic lung disease 886296647 J98.4 Heartburn 04479180 R12 Lower urin ayaz tract symptoms due to benign prostatic hypertrophy 0548982533 9101 N40.1 Osteoarthr itis of knee 935033623 M17.9 Tobacco user 235902358 Z 72.0 [id number] MD Michelle Goodwin (Adult Med) [address] [place] [address]84[address] 0 05/19/2020 08:18:06 05/20/2020 11:12:16 Chronic lung disease 709763210 J98.4 F/U with pulmonolog y Heartburn 09864936 R12 Advised use of omeprazole [id number] MD Michelle Chau (Adult Med) [address] [place] [address]993[address] 0 06/17/2020 08:16:26 06/21/2020 20:21:49 Hemoptysis 80672640 R04.2 ER (refused)H b/Hct Chronic ob structive pulmonary disease 56687468 J44.9 Cough 48085914 R05 [id number] MD Michelle Chau (Adult Med) [address] [place] [address] 68399[address] 0 07/15/2020 08:25:00 07/16/2020 06:46:52 Benign prostatic hyperplasia 860499651 N40.1 Health Concerns Section Related Observation LastModified by Organization Detai ls LastModified Time None Recorded Concern Status LastModified by Organization Details LastModified Time None Recorded Advance Directives Directive None Recorded Payers Encounter Date Sequence Insurance Name Policy Number Policy Walls Covered Member ID Walls Member ID Guarantor Name 08/25/2019 1 [place] Bentley Mesa [id number] [id number] Bentley Mesa 08/25/2019 2 [place] [facility] (MEDICAID REPLACEMENT - HMO) [id number] Bentley Mesa [id number] Bentley Mesa 01/19/2020 1 [place] Bentley Mesa [id number] Bentley Mesa 01/19/2020 2 [place] [facility] (MEDICAID REPLACEMENT - [place]MO) [id number] Bentley Mesa [id number] Bentley Mesa 05/19/2020 1 [place] Bentley Mesa [id number] Bentley Mesa 05/19/2020 2 [place] MED[place]ARE OR MEDICARE REPLACEMENT PRIMARY) Bentley Mesa [id number] Bentley Mesa 06/17/2020 1 [place] Bentley Mesa [id number] Bentley Mesa 06/17/2020 2 [place]ICARE REPLACEMENT PRIMARY) Bentley Mesa [id number] Bentley Mesa 07/15/2020 1 [place] Bentley Mesa [id number] Bentley Mesa 07/15/2020 2 [place] OR MEDIC[place] REPLACEMENT PRIMARY) Bentley Mesa [id number] Bentley Mesa Notes Date Note Type Note Provider Name and Address Organization Details Recorded Time 08/25/2019 text/html No new complaint s. Is being considered for lung transplant. Currently doing pulmonary rehab. Elaine Jain MD Attn: [address] [place], [address], [place] [facility] 08/25/2019 11:09:22 01/19/2020 text/html Telephone visit due to Covid-19 precautions. No new complaints at present. Elaine Jain MD Attn: Accounting,[address], [place], [address], [facility] 01/19/2020 10:40:20 05/19/2020 text/html Telephone visit due to Covid-19 precautions. He has je more SOB lately. Scheduled to see pulmonary soon. Cataract surgery rescheduled because he was not feeling well. famotidine not as effective as ranitidine. Otherwise doing OK. Elaine Jain MD Attn: Accounting,[address], [place], [address], [facility] 05/19/2020 10:51:18 06/17/2020 text/html Phone visit due to the Covid 19 Dr Jain' patient My breathing is really, really, betterBut last night, I got to coughing, some blood came up from my throatI had a procedure done on my throatI kind of vomited Mr Mesa was apparently admitted to [facility] and discharged last week, unfortunately he had [...] this afternoon. 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 Barium swallow normalCT chest; Infiltrates, CAD, Small HHCT neck; Asymmetry, Tracheal abnormality Katlyn Barrett MD Attn: Accounting,[address], [place], [address], [facility] 06/17/2020 11:53:12 07/15/2020 text/html Phone visit due to the Covid [address] Jain' patient I just came home from , I had a COPD exacerbation They have been calling about some kind of test I was supposed to haveI have been trying to get a prescriptionThey said that it is notI am in the process of doing some [...] refilled. Katlyn Barrett MD Attn: Accounting[address] [place], [address], [place] [facility] 07/15/2020 21:52:32
--- OUTSIDE RECORDS SUMMARY | 2025-03-18 07:53 | XMS_ITS | CONTINUITY OF CARE DOCUMENT ---
Author Name jose juan manzano Address Unknown Organization [facility] Address [address] [place] [address] Phone [phone] Care Team Providers Care Fruit Grading Supervisor Name Role Phone Randy Wynne MD Unavailable [phone] OLIVIA SAUNDERS MD Unavailable JEAN FINCH MD Unavailable [phone] INSURANCE PROVIDERS Payer name Policy type / Coverage type [place] red green party ID [employer] [facility] [employer]ILY [employer] Medicaid 1 [id number]
--- OUTSIDE RECORDS SUMMARY | 2025-03-18 07:54 | XMS_ITS | Clinical Summary ---
Author Organization [facility] Address [address] [place] [address] Phone Care Team Providers Care Professor Computer Science Name Role Phone Bentley Kyle MD Primary Care Provider [phone] Medications PAIN & FEVER EXTRA STRENGTH 500 [...] age to complete this topic Insurance [place] Care Teams Professor Computer Science Relationship Specialty Start Date End Date Bentley Kyle MD [address] [place] [address] PCP - General Internal Medicine 02/01/21
--- OUTSIDE RECORDS SUMMARY | 2025-03-18 07:54 | XMS_ITS | Data Portability ---
Author Organization [place] [facility], Main Office Address [address] [place] [address] Care Team Providers Care Manager Data Warehouse Name Role Phone GUILLAUME ERAZO Primary Care Provider [phone] GUILLAUME ERAZO Referring Provider [phone] Assessment Encounter Date Assessment Date Assessment LastModified by Organization Details LastModified Time 12/22/2024 12/22/2024 I have reconciled the patient's medications post their discharge from inpatient facility. [email or web address] Not available 12/22/2024 14:59:13 Plan of Treatment Reminders Order Date Submit Date Provider Last Modified By Organization Details Last Modified Time Details Appointments Follow Up 15 2024 09:30A Jesu Nolasco NP Not available Not available Not available Lab unlisted lab - CBC study 2024 025 [facility] (Lab), [address] [place], [address], 02/09/2025 09:03:08 CMP, serum or plasma [facility] [address] [place], [address], 02/03/2025 04:55:28 TSH, serum or plasma [address] (Lab), [address] [place], [address], 06/02/2024 10:46:58 T4, free, serum [address] (Lab), [address] [place], [address], 06/02/2024 10:47:09 CBC w/ auto diff [address] (Lab), [address] [place], [address], 06/02/2024 10:46:49 PSA, serum or plasma 2023 024 [facility] (Lab), [address] [place], [address], 03/06/2024 00:11:54 lipid panel, serum 2023 024 [facility] (Lab), [address] [place], [address], 03/06/2024 00:11:55 TSH, serum or plasma [address] (Lab), [address] [place], [address], 03/19/2024 08:05:47 CBC w/ auto diff 2023 024 [facility] (Lab), [address] [place], [address], 03/06/2024 00:11:55 glycohemo globin, total, blood 2023 024 [facility] (Lab), [address] [place], [address], 03/06/2024 00:11:55 CMP, serum or plasma 2023 024 [facility] (Lab), [address] [place], [address], 03/06/2024 00:11:54 Referral occupatio nal therapist referral 2024 025 [facility], [address] [place], [address], 03/16/2025 10:48:34 physical therapist referral 2024 025 [email or web address] [facility], [address] [place], [address], 03/16/2025 10:48:[address] referral - Please call patient to schedule an appointme nt. Thank you. 2023 024 [email or web address] [facility] [address] , [address], [place], [address], 06/30/2024 08:46:[address] referral - Please call patient to schedule an appointme nt. Thank you. 2023 024 [email or web address] [facility] [address] , [address], [place], [address], 04/02/2024 09:31:09 Procedures None recorded. Surgeries None recorded. Imaging CT, chest, w/o contrast - Please call patient to schedule. 2024 025 IRAIS [facility], [address] [place] [address] , [address], [place], [address], 02/26/2025 14:55:00 Medication Orders prednison e 50 mg tablet 2024 025 [id number], [address] [place], [place], [id number], 02/02/2025 12:21:00 promethaz ine-DM 6.25 mg-15 mg/5 mL oral syrup 2024 025 [facility] [address] In [facility], [address] [place], [address], 12/22/2024 15:04:11 buspirone 5 mg tablet 2024 025 [facility] [address], [place], [id number], 12/22/2024 15:03:13 hydroxyzi ne HCl 25 mg tablet 2024 025 [facility] [address], [place], [id number], 12/22/2024 15:04:35 lorazepam 0.5 mg tablet 2024 025 [email or web address] #97797, [address] [place], [place], [id number], 12/22/2024 14:50:36 buspirone 5 mg tablet 2024 025 [facility], [address], [place], [id number], 11/03/2024 15:56:16 Patient TargetsNo targets recorded. Patient Instructions Encounter Date Encounter Id Patient Instructions Last Modified By Organization Details Last Modified Time 03/05/2024 [id number] dementia rating scale-2* [email or web address] Not available 03/05/2024 15:07:17 alcohol misuse* [email or web address] Not available 03/05/2024 15:07:25 depression screening* [email or web address] Not available 03/05/2024 15:07:28 multi-dimensiona l health assessment questionnaire* [email or web address] Not available 03/05/2024 15:07:20 Personalized a [facility] Plan and Screening Recommendations Advance Directives - Do you have one? No You have indicated that you are capable of preparing your advance care directive I recommend consulting with an Business Center Representative, family member, or friend to assist you. I have no recommendations Advance Directives - Do we have your advance directive on file in your health record? Primary Prevention/Interven tion (prevents or decreases the chance of common diseases from occurring) Smoking Risk: Non Smoker Refer to attached smoking cessation handouts Refer to attached handouts and prescription will be sent to pharmacy Continue to consider stopping smoking and call if we can assist you Recommend screening for possible Emphysema with pulmonary function testing Recommend lung cancer screening with low dose CT scan of the chest I have no recommendations Alcohol Misuse Screening: Negative Refer to attached alcohol cessation handout Refer to attached handout and prescription will be sent to pharmacy Decrease alcohol intake to 2 or less servings per day Continue to consider stopping alcohol and call if we can assist you Recommend referral for alcohol counseling/rehabili tation I have no recommendations Weight: Overweight try to lose 10% of your body weight Physical activity: Need more exercise/physical activity decrease sitting time to no more than 5hr/day Nutrition: Average Refer to attached handout Heart-Healthy Diet: After Your Visit Refer to attached handout DASH Diet: After Your Visit Recommend consultation with a summer intern Eat Heart Healthy Diet Fall Risk (screened today): Low Refer to attached handout Preventing Falls: After your Visit Recommend regular use of cane or walker Referral for physical therapy Referral for home health nurse evaluation Referral for home health nurse evaluation with physical therapy I have no recommendations Vaccines Pneumococcal: Recommended today Influenza: Your next one in [...] symptoms, disability, or ) Prostate Cancer Screening: Your next PSA in: No PSA screening necessary Your next PSA is recommeded today No digital rectal exam screening necessary Colon Cancer Screening: Colonoscopy No screening necessary Date Screening Last Performed: 2022 Eye Disease Screening: No Eye exam necessary Dementia Risk: Low I have no recommendations Depression Screening: Negative Recommend additional evaluation and/or treatment as noted above Recommend follow appointment to further evaluate Recommend Behavioral Health referral Active diagnosis, Continue current treatment plan I have no recommendations [email or web address] Not available 03/05/2024 14:39:26 12/22/2024 [id number] Thank you for yo ur visit to [...] Not available 12/22/2024 14:41:35 Homebound Status : Required Home Health Services: Durable Medical Equipment needed: Billing Guidelines CPT code 17196- Transitional Care Management services with moderate medical decision complexity (wzos-az-yzyg visit within 14 days of discharge). CPT code 56955- Transitional Care Management services with high medical decision complexity (jcvn-ca-kovs visit within 7 days of discharge). [email or web address] Not available 12/22/2024 14:41:35 Reason for Referral Neurologist Referral for Hea dache headaches Please call patient to schedule an appointment. Thank you. Referring Physician: Gumaro Harrison [facility], Encounter Date: 03/05/2024 Neurologist Referral for Hea dache recurrent headaches Please call patient to schedule an appointment. Thank you. Referring Physician: Gumaro Harrison [facility] Medicine, Encounter Date: 06/02/2024 Occupational Therapist Refer ral for Acute exacerbation of chronic obstructive pulmonary disease Referring Physician: Kiki Nolasco [facility] Medicine, Encounter Date: 02/02/2025 Physical Therapist Referral for Acute exacerbation of chronic obstructive pulmonary disease Referring Physician: Kiki Nolasco [facility], Encounter Date: 02/02/2025 Results Created Date Observation [...] with a follo w-up test. Not Available [facility] [address], [place], [address], 02/03/2025 04:55:27 02/03/20 25 02/03/2025 COMPR EHENS MANPREET METAB OLIC PANEL urea nitrogen (BUN) 8 mg/dL 7-25 normal Not Available [address], [address], 02/03/2025 04:55:27 02/03/20 25 02/03/2025 COMPR EHENS MANPREET METAB OLIC PANEL creatinine 0.71 mg/dL 0.70-1 .35 normal Not Available [address], [address], 02/03/2025 04:55:27 02/03/20 25 02/03/2025 COMPR EHENS MANPREET METAB OLIC PANEL eGFR 102 mL/mi n/1.7 3m2 > or = 60 normal Not Available [address], [address], 02/03/2025 04:55:27 02/03/20 25 02/03/2025 COMPR EHENS MANPREET METAB OLIC PANEL BUN/creatini ne ratio SEE NOTE: (calc ) 6-22 Not Repor rakan: BUN and Creat inine are withi n refer ence range . Not Available [address], [address], 02/03/2025 04:55:27 02/03/20 25 02/03/2025 COMPR EHENS MANPREET METAB OLIC PANEL sodium 138 mmol/ L 135-14 6 normal Not Available [address], [address], 02/03/2025 04:55:27 02/03/20 25 02/03/2025 COMPR EHENS MANPREET METAB OLIC PANEL potassium 4.5 mmol/ L 3.5-5. 3 normal Not Available [address], [address], 02/03/2025 04:55:27 02/03/20 25 02/03/2025 COMPR EHENS MANPREET METAB OLIC PANEL chloride 101 mmol/ L 98-110 normal Not Available [address], [address], 02/03/2025 04:55:27 02/03/20 25 02/03/2025 COMPR EHENS MANPREET METAB OLIC PANEL carbon dioxide 28 mmol/ L 20-32 normal Not Available [address], [address], 02/03/2025 04:55:27 02/03/20 25 02/03/2025 COMPR EHENS MANPREET METAB OLIC PANEL calcium 9.8 mg/dL 8.6-10 .3 normal Not Available [address], [address], 02/03/2025 04:55:27 02/03/20 25 02/03/2025 COMPR EHENS MANPREET METAB OLIC PANEL protein, total 7.0 g/dL 6.1-8. 1 normal Not Available [address], [address], 02/03/2025 04:55:27 02/03/20 25 02/03/2025 COMPR EHENS MANPREET METAB OLIC PANEL albumin 4.3 g/dL 3.6-5. 1 normal Not Available [address], [address], 02/03/2025 04:55:27 02/03/20 25 02/03/2025 COMPR EHENS MANPREET METAB OLIC PANEL globulin 2.7 g/dL_ (calc ) 1.9-3. 7 normal Not Available [address], [address], 02/03/2025 04:55:27 02/03/20 25 02/03/2025 COMPR EHENS MANPREET METAB OLIC PANEL albumin/glob ulin ratio 1.6 (calc ) 1.0-2. 5 normal Not Available [address], [address], 02/03/2025 04:55:27 02/03/20 25 02/03/2025 COMPR EHENS MANPREET METAB OLIC PANEL bilirubin, total 0.7 mg/dL 0.2-1. 2 normal Not Available [address], [address], 02/03/2025 04:55:27 02/03/20 25 02/03/2025 COMPR EHENS MANPREET METAB OLIC PANEL alkaline phosphatase 69 U/L 35-144 normal Not Available [address], [address], 02/03/2025 04:55:27 02/03/20 25 02/03/2025 COMPR EHENS MANPREET METAB OLIC PANEL AST 15 U/L 10-35 normal Not Available [address], [address], 02/03/2025 04:55:27 02/03/20 25 02/03/2025 COMPR EHENS MANPREET METAB OLIC PANEL ALT 16 U/L 9-46 normal Not Available [address], [address], 02/03/2025 04:55:27 02/03/20 25 02/03/2025 CBC (INCL UDES DIFF/ PLT) white blood cell count 6.3 thous and/u L 3.8-10 .8 normal Not Available [address], [address], 02/03/2025 04:55:29 02/03/20 25 02/03/2025 CBC (INCL UDES DIFF/ PLT) red blood cell count 4.47 craig on/uL 4.20-5 .80 normal Not Available [address], [address], 02/03/2025 04:55:29 02/03/20 25 02/03/2025 CBC (INCL UDES DIFF/ PLT) hemoglobin 13.8 g/dL 13.2-1 7.1 normal Not Available [address], [address], 02/03/2025 04:55:29 02/03/20 25 02/03/2025 CBC (INCL UDES DIFF/ PLT) hematocrit 42.7 % 38.5-5 0.0 normal Not Available [address], [address], 02/03/2025 04:55:29 02/03/20 25 02/03/2025 CBC (INCL UDES DIFF/ PLT) MCV 95.5 fL 80.0-1 00.0 normal Not Available [address], [address], 02/03/2025 04:55:29 02/03/20 25 02/03/2025 CBC (INCL UDES DIFF/ PLT) MCH 30.9 pg 27.0-3 3.0 normal Not Available [address], [address], 02/03/2025 04:55:29 02/03/20 25 02/03/2025 CBC (INCL UDES DIFF/ PLT) MCHC 32.3 g/dL 32.0-3 6.0 normal For adult s, a sligh t decre ase in the calcu lated MCHC value (in the range of 30 to 32 g/dL) is most likel y not clini chantel signi ileana t; armani er, it shoul d be inter prete d with cauti on in corre latio n with other red cell hari eters and the patie nt's clini fabian condi tion. Not Available [address], [address], 02/03/2025 04:55:29 02/03/20 25 02/03/2025 CBC (INCL UDES DIFF/ PLT) RDW 12.9 % 11.0-1 5.0 normal Not Available [address], [address], 02/03/2025 04:55:29 02/03/20 25 02/03/2025 CBC (INCL UDES DIFF/ PLT) platelet count 285 thous and/u L 140-40 0 normal Not Available [address], [address], 02/03/2025 04:55:29 02/03/20 25 02/03/2025 CBC (INCL UDES DIFF/ PLT) MPV 11.3 fL 7.5-12 .5 normal Not Available [address], [address], 02/03/2025 04:55:29 02/03/20 25 02/03/2025 CBC (INCL UDES DIFF/ PLT) absolute neutrophils 5324 cells /uL 1500-7 800 normal Not Available [address], [address], 02/03/2025 04:55:29 02/03/20 25 02/03/2025 CBC (INCL UDES DIFF/ PLT) absolute lymphocytes 599 cells /uL 850-39 00 low Not Available [address], [address], 02/03/2025 04:55:29 02/03/20 25 02/03/2025 CBC (INCL UDES DIFF/ PLT) absolute monocytes 315 cells /uL 200-95 0 normal Not Available [facility] [address], [address], 02/03/2025 04:55:29 02/03/20 25 02/03/2025 CBC (INCL UDES DIFF/ PLT) absolute eosinophils 32 cells /uL 15-500 normal Not Available [address], [address], 02/03/2025 04:55:29 02/03/20 25 02/03/2025 CBC (INCL UDES DIFF/ PLT) absolute basophils 32 cells /uL 0-200 normal Not Available [address], [address], 02/03/2025 04:55:29 02/03/20 25 02/03/2025 CBC (INCL UDES DIFF/ PLT) neutrophils 84.5 % normal Not Available [address], [address], 02/03/2025 04:55:29 02/03/20 25 02/03/2025 CBC (INCL UDES DIFF/ PLT) lymphocytes 9.5 % normal Not Available [address], [address], 02/03/2025 04:55:29 02/03/20 25 02/03/2025 CBC (INCL UDES DIFF/ PLT) monocytes 5.0 % normal Not Available [address], [address], 02/03/2025 04:55:29 02/03/20 25 02/03/2025 CBC (INCL UDES DIFF/ PLT) eosinophils 0.5 % normal Not Available [address], [address], 02/03/2025 04:55:29 02/03/20 25 02/03/2025 CBC (INCL UDES DIFF/ PLT) basophils 0.5 % normal Not Available [address], [address], 02/03/2025 04:55:29 02/11/20 24 02/11/2024 XR, chest , 2 view No observ ation record ed. [email or web address] [place] [address] [address], [place], [address], 02/18/2024 09:41:31 02/19/20 24 02/19/2024 LDCT, chest , for lung cance r padmini irving No observ ation record ed. [email or web address] [address], [place], [address], 03/23/2024 16:47:33 03/24/20 24 03/24/2024 XR, chest , 1 view No observ ation record ed. [email or web address] [address], [place], [address], 04/01/2024 09:41:11 08/25/20 24 08/25/2024 MRI, brain + brain stem, w/o contr ast No observ ation record ed. [email or web address] [address], [place], [address], 08/26/2024 13:59:16 09/06/20 24 09/05/2024 XR, chest , 2 view No observ ation record ed. [email or web address] [address] [facility], [place], [address], 09/07/2024 09:58:54 01/15/20 25 01/14/2025 XR, chest , 2 view No observ ation record ed. [email or web address] [address], [place], [address], 01/14/2025 12:04:43 02/27/20 25 02/26/2025 CT, chest , w/o contr ast No observ ation record ed. [email or web address], [place], [address], 03/01/2025 16:04:00 03/03/20 25 02/23/2025 imagi ng/di agnos tic resul t No observ ation record ed. [address], [place], [address], 03/03/2025 09:12:33 Result Notes None recorded. Problems Name Problem SNOMED Code Status Onset Date Resolution Date Notes Provider Name and Address Organization Details Recorded Time Chronic obstructiv e pulmonary disease 02953232 Active Not Available [facility] 3 18:04:39 Acute exacerbati on of chronic obstructiv e pulmonary disease 772666542 Active 2016 Not Available [facility] 3 18:04:39 Benign prostatic hyperplasi a 883690525 Active 2016 Not Available [facility] 3 18:04:39 Severe chronic obstructiv e pulmonary disease 819607208 Active 2018 Not Available [facility] 3 18:04:39 Chronic respirator y failure 48955429 Active 2018 Not Available [facility] 3 18:04:39 Ingrowing toenail 809067554 Active 2021 Not Available [facility] 3 18:04:39 Foot pain 06065246 Active 2021 Not Available [facility] 3 18:04:39 Tobacco dependence syndrome 84515088 Active Not Available [facility] 3 18:04:39 Seasonal allergy 165920227 Active 2022 RAY Leal [address], [address], [place], [address] , [employer] [facility] 3 10:55:26 Chronic cough 47012673 Active 2022 RAY Leal [address], [address], [place], [address] , [employer] [facility] 3 10:56:49 Pain of right knee joint 6931827254463 00 Active 2022 RAY Leal [address], [address], [place], [address] , [place] [facility] 3 11:01:39 Gastroesop hageal reflux disease 511270162 Active 2022 RAY Leal [address], [address], [place], [address] , [employer] [facility] 3 11:04:34 Lower abdominal pain 47809949 Active 2022 RAY Leal [address], [address], [place], [address] , [facility] 3 10:57:20 Anxiety 73512149 Active 2022 Jolynn Epperson null, [place] [facility] 3 09:41:00 Arthritis 1018213 Active 2022 Jolynn Epperson null, [place] [facility] 3 09:41:08 Disorder of eye 963792484 Active 2022 Jolynn Epperson null, [place] [facility] 3 09:41:15 Headache 30867941 Active 2022 Jolynn Epperson null, [place] - [facility] 3 09:41:22 Heartburn 12595772 Active 2022 Jolynn Epperson null, [facility] 3 09:41:29 Disorder of lung 82528120 Active 2022 Jolynn Epperson null, [facility] 3 09:41:38 Ingrowing nail of toe of right foot 7394750064482 9102 Active 2022 Mata Lugo DPM [address], [address], [place], [address] , [facility] 3 10:57:35 Pain of right hip joint 7489518170568 02 Active 2022 GILMAR Velasquez [address], [address], [place], [address] , [facility] 3 16:05:21 Low back pain 688199252 Active 2022 GILMAR Velasquez [address], [address], [place], [address] , [facility] 3 14:31:44 Hyperthyro idism 47908290 Active 2023 NORY Velasquez-C [address], [address], [place], [address] , [facility] 4 10:06:09 Upper respirator y infection 10284248 Active 2024 GILMAR Thomas [address], [address], [place], [address] , [employer] 5 14:06:12 Dyspnea at rest 524649755 Active 2024 GILMAR Thomas [address], [address], [place], [address] , [facility] 5 12:14:36 Chest pain 18005678 Active 2024 GILMAR Thomas [address], [address], [place], [address] , [facility] 5 12:15:51 Burning chest pain Active 2024 GILMAR Thomas [address], [address], [place], [address] , [facility] 5 12:16:19 Acute urticaria 901627706 Active 2024 GILMRA Thomas [address], [address], [place], [address] , [facility] 5 13:52:20 Notes:PULMONARY DISEASE, USE OF NSAIDS Problem Notes None recorded. Procedures Surgical History Date Name Laterality Status Provider Name and Address Organization Details Recorded Time 03/05/20 Medicare Wellness CPT Code, subsequent completed Hortencia Gallagher RN [employer] 03/05/2024 09:30:38 06/06/20 Nail Debridement completed Mata Lugo DPM [address], [address], [place], [address], [facility] 06/06/2023 10:57:28 02/27/20 Medicare Wellness CPT Code, Initial completed RAY Leal [address], [address], [place], [address], [facility] 02/26/2023 12:38:15 Unlisted procedure nose completed Not Available [facility] 12/12/2022 18:04:04 Imaging Results None recorded. Procedure Notes None recorded. Medical Equipment None Reported. Allergies Allergen ID Allergen Name Allergen Category Reaction Reaction Severity Criticality Documentation Date Start Date Code Code System Note Provider Name and Address Organization Details Recorded Time 74145 oxycodone medicatio n itching Not available low 12/12/2022 7804 [facility] FABIO Nguyen, [place] [facility] 11:58:56 Medications Name Sig Start Date Stop [...] Not Available Zithromax Z-Tip 250 mg tablet active Not Available Not Available [...] Not Available prednison e 50 mg tablet Take 1 tablet every day by oral route. 2024 active Not Available Not Available Not Avai lable nicotine 21 mg/24 hr daily transderm al [...] TAKE ONE CAPSULE BY MOUTH EVERY DAY 2024 active Not [...] completed Not Available Not Available Not Available ondansetr on 4 mg disintegr ating [...] HFA 90 mcg/actua tion aerosol inhaler INHALE 1 PUFF BY MOUTH EVERY 4 HOURS NEEDED FOR SHORTNES S OF BREATH OR WHEEZING active Not Available Not Available No t Available oxycodone 5 mg tablet 01/09 completed Not Available Not Available Not Available levalbute rol 0.31 mg/3 mL solution for nebulizat ion Inhale by inhalati on route. active Not Available Not Available No t Available Oyster Shell Calcium-V itamin D3 500 [...] ER AT THE SAME TIME(S) EACH DAY 02/02 completed Not Available Not Available Not Available Lonhala Magnair Starter 25 mcg/mL solution for nebulizat ion Inhale 1 mL twice a day by nebuliza tion route. 04/19 completed Not Available Not Available Not Available Vitals Date Recorded Body height Body temperature Heart rate Oxygen saturation Oxygen saturation in Arterial blood by Pulse oximetry Systolic blood pressure Diastolic blood pressure Provider Name and Address Organization Details Last Updated DateTime 5 175.26 cm 98 [degF] 100 /min 97 % 97 % 138 mm[Hg] 82 mm[Hg] Willian Lerma RN [place] [facility] 5 15:28:02 Date Recorded Body height Body mass index (BMI) Body weight Body temperature Heart rate Oxygen saturation Oxygen saturation in Arterial blood by Pulse oximetry Inhaled oxygen flow rate Systolic blood pressure Diastolic blood pressure Provider Name and Address Organization Details Last Updated DateTime 5 175.26 cm 30.6 kg/m2 95529.6 2 g 98.7 [degF] 108 /min 97 % 97 % 3 L/min 134 mm[Hg] 80 mm[Hg] Niurka Martínez MA [place] [employer] 5 14:48:25 Date Recorded Body height Body temperature Heart rate Oxygen saturation Oxygen saturation in Arterial blood by Pulse oximetry Inhaled oxygen flow rate Systolic blood pressure Diastolic blood pressure Provider Name and Address Organization Details Last Updated DateTime 5 175.26 cm 98.8 [degF] 102 /min 96 % 96 % 3 L/min 126 mm[Hg] 82 mm[Hg] Niurka Martínez MA [facility] 5 11:58:42 Date Recorded Body height Body mass index (BMI) Body weight Body temperature Oxygen saturation Oxygen saturation in Arterial blood by Pulse oximetry Inhaled oxygen flow rate Heart rate Systolic blood pressure Diastolic blood pressure Provider Name and Address Organization Details Last Updated DateTime 4 175.26 cm 34.6 kg/m2 599250. 61 g 97.6 [degF] 92 % 92 % 3 L/min 102 /min 142 mm[Hg] 88 mm[Hg] Sherita Rosas RN [facility] [employer] 4 14:27:39 Date Recorded Body height Body mass index (BMI) Body weight Body temperature Oxygen saturation Oxygen saturation in Arterial blood by Pulse oximetry Inhaled oxygen flow rate Heart rate Systolic blood pressure Diastolic blood pressure Provider Name and Address Organization Details Last Updated DateTime 4 175.26 cm 35.1 kg/m2 134086. 98 g 100 [degF] 93 % 93 % 3 L/min 89 /min 130 mm[Hg] 70 mm[Hg] Sherita Rosas RN [facility] 4 09:55:40 Social History Question Answer Notes LastModified by Organizat ion Details LastModified Time Tobacco Smoking Status Former Smoker Not Available [employer] 12/12/2022 18:04:03 What Is Your Level Of Caffeine Consumption? None [email or web address] Information not available 01/09/2023 In The 14 Days Before Symptom Onset, Have You Had Close Contact With A Laboratory-confirm ed COVID-19 While That Case Was Ill? No [id number] Information not available 12/12/2022 In The 14 Days Before Symptom Onset, Have You Had Close Contact With A Person Who Is Under Investigation For COVID-19 While That Person Was Ill? No [id number] Information not available 12/12/2022 What Type Of Diet Are You Following? REGULAR [email or web address] Information n ot available 01/09/2023 When Did You Quit Smoking? 1-5yearssinc elastcigaret te [id number] Information not available 12/12/2022 What Was The Date Of Your Most Recent Tobacco Screening? 02/02/2025 Information not available 02/02/2025 Do You Use Your Seat Belt Or Car Seat Routinely? Yes Information not available 02/02/2025 Do You Participate In Social Media? No Information not available 02/02/2025 Has Tobacco Cessation Counseling Been Provided? No [id number] Information not available 12/12/2022 Have You Recently Traveled Abroad? No [id number] Information not available 12/12/2022 Do You Have Any Dietary Restrictions? No [email or web address] Information not available 01/09/2023 Sex: Unknown Functional Status Question Answer Note LastModified by [employer] ion Details LastModified Time Do you use any illicit or recreational drugs? No [email or web address] Information not available 01/09/2023 Do you or have you ever used any other forms of tobacco or nicotine? No [id number] Information not available 12/12/2022 What is your level of alcohol consumption? Occasional [id number] Information not available 12/12/2022 What is your occupation? disability [id number] 026 Information not available 12/12/2022 What is your exercise level? Heavy [email or web address] Information not available 01/09/2023 Mental Status Question Answer Note LastModified by Organization D etails LastModified Time Do you feel stressed (tense, restless, nervous, or anxious, or unable to sleep at night)? [id number] Information not available 02/02/2025 Family History Relationship Description Onset Age of this Age Resolved Age Notes LastModified by Organization Details LastModified Time Sister Diabetes mellitus [id number] Not available 12/12/2022 18:04:04 Sister Cerebrovascu lar accident [id number] Not available 12/12/2022 18:04:04 Sister Hypertensive disorder [id number] Not available 12/12/2022 18:04:04 Mother Diabetes mellitus [id number] Not available 12/12/2022 18:04:04 Brother Cerebrovascu lar accident [id number] Not available 12/12/2022 18:04:04 Brother Malignant neoplastic disease [id number].270 [id number] Not available 12/12/2022 18:04:04 Father Heart disease [id number].351 [id number] Not available 12/12/2022 18:04:04 Father Malignant neoplastic disease [id number] Not available 12/12/2022 18:04:04 Mother Cerebrovascu lar [...] virus, trivalent, preservative 8 completed Not Available [facility] 12/12/2022 18:05:38 Influenza, split virus, quadrivalent, PF 9 completed Not Available [facility] 12/12/2022 18:05:38 Influenza, split virus, quadrivalent, PF 8 completed Not Available [facility] 12/12/2022 18:05:38 Tdap 3 completed RAY Leal [address] [place] [address], [facility] [address], [place], [address], [facility] [employer] [facility] 02/26/2023 13:00:04 Past Encounters Encounter ID Performer Location Encounter Start Date Encounter Closed Date Diagnosis/Indication Diagnosis SNOMED-CT Code Diagnosis ICD10 Code Diagnosis Note [id number] [facility] [place] [address] [place] [address] 06/14/2022 00:00:00 06/19/2022 11:50:24 [id number] [facility] [place] [place] [address] [place] [address] 07/09/2022 00:00:00 07/09/2022 13:46:46 [id number] RAY Leal [facility] Primary [place] [address] [facility] [address] [place] [address] 01/09/2023 09:54:34 01/09/2023 11:15:00 Chronic obstructive pulmonary disease 27783170 J44.9 Establishe d with pulmonolog ist.He is on 3L of oxygen regularly, he states he does not leave it on though all the time. In warmer weather and sitting still he is usually okay without it. O2 sat 94% today without his O2 on.Current ly on prednisone 10mg daily, roflumilas t 500mcg daily, albuterol inhaler/so lution PRN. Seasonal allergy 3961471 04 J30.2 Chronic cough 44824957 R 05.3 Always exacerbate d when he comes down with any infection. Will use cough medication PRN. Pain of ri ght knee joint 0392141291 16765 M25.561 Followed by pain management who prescribes hydrocodon e. Gastroesop hageal reflux disease 637039510 K21.9 [id number] RAY Leal [facility] Primary [place] [address] [employer] [facility] [address] [facility] [place] [address] 02/26/2023 10:25:25 02/26/2023 11:43:04 Adult health examination 368185808 Z00.[address] Ibarra (cardiolog y) 2 weeks ago and ER last week. Will get copies. Covid vaccines- up to date on boostersFl u vaccine- recommende d each fallTetanu s vaccine- will update todayShing les vaccine- up to date Colonoscop y- 2021, wnl Recommende d routine eye exams and dental cleanings. Administra tion of diphtheria, pertussis, and tetanus vaccine 616683613 Z23 Chronic ob structive pulmonary disease 57516119 J44.9 Stable overall. Continue follow-up with pulmonolog [...] daily, albuterol inhaler/so lution PRN. Ingrowing toenail 101103 009 L60.0 Screening for disorder 942331004 Z13.9 [id number] Liudmila Riggins MD [facility] Primary Care [facility] [address] [facility] [address] [place] [address] 03/19/2023 10:15:08 03/19/2023 12:42:51 Lower abdominal pain 98978534 R10.30 No pain on exam today. Pain is non-specif ic, will travel from one side to the other. No associated GI symptoms. Discussed red flag symptoms and ER precaution s, pt. expresses understand ing. Will continue to monitor symptoms. [id number] Mata Lugo DPM [facility] Podiatry [place] [address] [place] [address] 06/06/2023 09:24:40 06/06/2023 11:23:54 Ingrowing nail of toe of right foot [id number] 8610984 L60.0 great toe medial cornerslan t back procedure performedF ollow-up as needed if becomes problemati c may require partial matrixecto my [id number] Liudmila Riggins MD [facility] Primary Care [facility] [address] [facility] [address] [address] [place] [address] 08/12/2023 08:29:41 08/12/2023 09:38:22 Chronic obstructive pulmonary disease 99103635 J44.9 Stable overall. Continue follow-up with pulmonolog y. He is not needing O2 while in the office today.He did receive flu, covid and pneumonia vaccines. 01/09/23: Luis Alberto adams with pulmonolog ist.He is on 3L of oxygen regularly, he states he does not leave it on though all the time. In warmer weather and sitting still he is usually okay without it. O2 sat 94% today without his O2 on.Current ly on prednisone 10mg daily, roflumilas t 500mcg daily, albuterol inhaler/so lution PRN. [id number] Mata Lugo DPM [facility] Podiat[place] [address] [facility] [place] [address] 09/17/2023 11:36:50 09/30/2023 17:32:46 [id number] GILMAR Velasquez [facility] Primary Care [address] [place] [address] 03/05/2024 13:57:58 03/05/2024 15:12:45 Adult health examination 637792532 Z00.00 Screening for disorder 284173539 Z13.9 Diabetes m ellitus screening 388397117 Z13.1 Hyperlipid emia screening 835475964 Z13.220 Thyroid di sorder screening 674258610 Z13.29 Anemia screening 5726659 07 Z13.0 Headache 65098381 R51.9 -hx of headaches often, nose bleeds twice/week , vision disturbanc es-hx of MRI in but was unable to complete-h e would like a workup by neuro-neur ologist referral given [id number] GILMAR Velasquez [facility] Primary Care [facility] [address] [facility] [address] [place] [address] 06/02/2024 09:44:35 06/02/2024 10:36:45 Chronic obstructive pulmonary disease 85275960 J44.9 stable. sees pulmonolog y next monthverba kirilles walking more yesterday than he has in the last couple yearsstill uses nebulizer solution BID-TID prn Hyperthyroidism 64990735 E05.90 Headache 99090923 R51.9 -hx of headaches often, nose bleeds twice/week , vision disturbanc es-hx of MRI in but was unable to complete-h e would like a workup by neuro-neur ologist referral given [id number] GILMAR Thomas [facility] Primary Care [facility] [address] [facility] [address] [place] [address] 11/03/2024 15:15:50 11/03/2024 15:57:32 Anxiety 53467036 F41.9 Will increase Lorazepam to 0.5mg TID and add Buspirone 5mg daily.Stacy ent will follow up in 1 month, sooner if needed. Chronic ob structive pulmonary disease 29000311 J44.9 oxygen dependent, going to Pulmonary rehab Saturday, Saturday and Saturday. [id number] GILMAR Thomas [facility] Primary Care [facility] [address] [facility] [address] [place] [address] 12/22/2024 14:33:11 12/22/2024 15:33:25 Transition of care 9136833739 105 Z75.8 Anxiety 49777692 F41.9 Chronic cough 32721296 R 05.3 [id number] GILMAR Thomas [facility] Primary Care [address] [facility] [place] [address] 02/02/2025 11:49:07 02/02/2025 12:38:03 Acute exacerbation of chronic obstructive pulmonary disease 733766468 J44.1 Dyspnea at rest 21854822 7 R06.00 Chronic ob structive pulmonary disease 90673116 J44.9 Health Concerns Section Related Observation LastModified by Organization Detai ls LastModified Time None Recorded Concern Status LastModified by Organization Details LastModified Time None Recorded Advance Directives Directive None Recorded Payers Encounter Date Sequence Insurance Name Policy Number Policy Walls Covered Member ID Walls Member ID Guarantor Name 03/05/2024 2 [place] WHEN MEDICARE OR MEDICARE REPLACEMENT PRIMARY) Bentley Mesa [id number] Bentley Mesa 03/05/2024 1 [place] ([place]ANTAGE - HMO) [id number] Bentley Mesa [id number] Bentley Mesa 06/02/2024 2 [place] OR MEDICARE REPLACEMENT PRIMARY) Bentley Mesa [id number] Bentley Mesa 06/02/2024 1 [place] ([place]ANTAGE - [place]MO) [id number] Bentley Mesa [id number] Stewart Bonita 11/03/2024 2 [place] WHEN [place]ARE OR MEDICARE REPLACEMENT PRIMARY) Bentley Mesa [id number] Bentley Mesa 11/03/2024 1 [place] (MEDIC[place]ANTAGE - [place]MO) [id number] Bentley Mesa [id number] Bentley Mesa 12/22/2024 2 [place] WHEN [place]ARE OR MEDICARE REPLACEMENT PRIMARY) Bentley Mesa [id number] Bentley Mesa 12/22/2024 1 [place] ([place]ANTAGE - [place]MO) [id number] Bentley Mesa [id number] Bentley Mesa 02/02/2025 2 [place] WHEN [place]ARE OR MEDICARE REPLACEMENT PRIMARY) Bentley Mesa [id number] Bentley Mesa 02/02/2025 1 [place] (MEDICARE REPLACEMENT/AD VANTAGE - HMO) [id number] Bentley Mesa [id number] Bentley Mesa Notes Date Note Type Note Provider Name and Address Organization Details Recorded Time 03/05/2024 text/html pt is here for annual physical GILMAR Velasquez [address] [employer], [place], [address], [employer] 03/05/2024 15:11:48 06/02/2024 text/html pt is here for f/u GILMAR Mesa [address], [place], [address], [employer] 06/02/2024 10:31:58 11/03/2024 text/html Patient is a [...] him.Patient denies SI/HI. GILMAR Thomas [address], [place], [address], [employer] 11/03/2024 21:36:20 12/22/2024 text/html Patient is a 64 year old male that presents to the office for hospital f/u. Patient is accompanied by . Patient was admitted to [facility] in November for COPD exacerbation and was discharged on 12/08/24.Patient reports he is doing well and has no concerns at this time. Patient state I feel great. I actually feel like living.Patient's reports patient is doing much better since starting Buspirone. GILMAR Thomas [address], [place], [address], [employer] 12/26/2024 16:09:51 02/02/2025 text/html Patient is a 65 year old male that presents to the office for hospital follow up. Patient is in wheelchair, accompanied by . Patient was admitted to [facility] for 8 days for acute exacerbation of COPD. Patient reports he has not improved much since being discharged. Patient is wanting home health-occupation and physical therapy to help with his recovery. GILMAR Thomas [address], [place], [address], [employer] 02/07/2025 18:20:34
--- OUTSIDE RECORDS SUMMARY | 2025-03-18 07:54 | XMS_ITS | Clinical Summary ---
Author Organization [facility] Address [address] [place] [address] Phone Care Team Providers Care Fringe Maker Name Role Phone Bentley Kyle MD Primary Care Provider [phone] Allergies Active Allergy Reactions Criticality Noted Date [...] Data STL ABSTRACTION Provider, Abstract 02/19/2025 Telephone [facility] Pulmonology [address] [place] [address] Carson Pineda MD Wants Appointment from Last 3 Months Immunizations Immunization Administration Dates Next Due ([employer])(12 YR UP) COVID-19 VACCINE - EMERGENCY USE AUTHORIZATION, MRNA, [id number](PF) 30 MCG/0.3 ML IM SUSP 01/10/2021 Influenza Seasonal Unspecified Formulation IM Social History Tobacco Use Types Packs/Day Years Used Date Smoking Tobacco: Never Smokeless Tobacco: Never Sex and Gender Information Value Date Recorded Sex Assigned at Not on file Legal Sex Male 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 Gender Identity Not on file Sexual Orientation Not on file Last Filed Vital Signs Vital Sign Reading Time Taken Comments Blood Pressure 130/80 11/21/2021 1:06 PM OUTSIDE UPHOLSTERER Pulse 87 11/21/2021 1:06 PM OUTSIDE UPHOLSTERER Temperature 37.2 C (98.9 F) 04/20/2021 11:16 AM CDT Respiratory Rate 18 04/20/2021 3:29 PM CDT Oxygen Saturation 91% 11/21/2021 1:06 PM OUTSIDE UPHOLSTERER 3 L Inhaled Oxygen Concentration - - Weight 116.1 kg (256 lb) 11/21/2021 1:06 PM OUTSIDE UPHOLSTERER Height 175.3 cm (5' 9) 11/21/2021 1:06 PM OUTSIDE UPHOLSTERER Body Mass Index 37.8 11/21/2021 1:06 PM OUTSIDE UPHOLSTERER Plan of Treatment Upcoming Encounters Date Type Department Care Team (Late st Contact Info) Description 06/07/2025 9:45 AM CDT Office Visit [facility] Pulmonology [address] [place] [address] Carson Pineda MD [address] [facility] [address] [place] [address] Health Maintenance Due Date Last Done Comments [...] 08/14/2020 COVID-19 Vaccine (2 - season) 2024 Insurance MEDICARE PART A AND B [place]ICA[place] Advance Directives For more information, please contact: [phone] * Full Code (Latest Code Status on File) Date Activated Date Inactivated Comments 04/18/2021 12:14 PM 04/20/2021 6:57 PM Care Teams Fringe Maker Relationship Specialty Start Date End Date Bentley Kyle MD [address] [phone] PCP - General Internal Medicine 04/18/21
--- OUTSIDE RECORDS SUMMARY | 2025-03-18 07:54 | XMS_ITS | Encounter Summary ---
Author Organization [facility] Address [address] [place] [address] Care Team Providers Care Qc Lab Technician Name Role Phone Bentley Kyle MD Primary Care Provider [phone] Reason for Visit * Reason Onset Date Comments Wants Appointment 02/19/2025 Encounter Details Date Type Department Care Team (Late Contact Info) Description 02/19/2025 Telephone [facility] Pulmonology [facility] [address] [place] [address] Carson Pineda MD 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 [place] [address] documented as of this encounter Visit Diagnoses Not on filedocumented in this encounter Care Teams Qc Lab Technician Relationship Specialty Start Date End Date Bentley Kyle MD [address] [address] PCP - General Internal Medicine 04/18/21 documented as of this encounter
--- NOTE | 2025-03-18 14:45 | WPDSIXMINUTE ---
Six Minute Walk Procedure Procedure Performed Pulmonary Stress Test (6 min walk) Six Minute Walk Six Minute Walk: This is a 6 minute walk test. The test was performed and interpreted in accordance with the 2014 ERS/ATS task force guidelines. Of note, patient used a wheeled walker and 3 L nasal cannula. Findings: The patient's resting 3 L nasal cannula oxygen saturation measured by pulse oximetry was 94%, the heart rate was 97 bpm, and the modified Kelsey dyspnea score was 0.5. Patient ambulated for 152 meters and oxygen saturation remained 95 to 96%. At the end of the study the heart rate was 120 bpm and the modified Kelsey dyspnea score was 3. The patient did not desaturations at rest or with activity on 3 L nasal cannula. In comparison to 6 minute walk on 10/27/2020, on 3 L nasal cannula the patient ambulated 91 m with a colleen saturation of 84% and a heart rate at the end of the study on 128.
== END 2025-03-18 07:52 | disposition home or self-care (01) ==
LOC: ANHPFT 07:51
PROVIDERS: PCP Nurse Practitioner Family; Visit Provider Nurse Practitioner Family
DX: J44.9 Chronic obstructive pulmonary disease, unspecified (principal)
CPT/HCPCS: 94618

== ENCOUNTER 2025-04-15 11:08 | Outpatient (CLI) | payer MEDICARE, MEDICAID, SELFPAY ==
--- NOTE | ~2025-04-15 | CT_ITS ---
CT Scan of the Chest without Contrast: Clinical Indication: Emphysema Technique: Contiguous sections were acquired throughout the chest without intravenous contrast. Dose reduction technique was used on this scan by utilizing automated exposure control and iterative recon struction technique. The dose-length product (DLP) was 497.20 mGy-cm. COMPARISON: 02/26/2025 Findings: There is no evidence of any significant mediastinal, hilar or axillary lymphadenopathy. The mediastin al soft tissues appear normal. There is no evidence of pleural or pericardial effusion. Endobronchial valves with complete right upper lobe atelectasis, unchanged from prior exam. Right low er lobe scarring is unchanged. Stable moderate to advanced emphysema. Images through the upper abdomen reveal no abnormalities. Impression: No change from prior exam. Moderate to advanced emphysema with right upper lobe endobronchial valves and complete right upper lobe atelectasis. Reviewed, dictated and finalized at [facility]. Impression: No change from prior exam. Moderate to advanced emphysema with right upper lobe endobronchial valves and complete right upper lobe atelectasis.
== END 2025-04-15 11:09 | disposition home or self-care (01) ==
LOC: MICIMG 11:10
PROVIDERS: PCP Nurse Practitioner Family
DX: J43.2 Centrilobular emphysema (principal)
CPT/HCPCS: 71250

== ENCOUNTER 2025-07-14 03:12 | Day surgery (SDC) | payer MEDICARE, MEDICAID, SELFPAY ==
[2025-07-09 13:57] VITALS: BMI 30.2
--- OUTSIDE RECORDS SUMMARY | 2025-07-14 03:20 | XMS_ITS | Encounter Summary ---
Author Organization [facility] Address [address] [place] [address] Care Team Providers Care Books Salesperson Name Role Phone Bentley Kyle MD Primary Care Provider [phone] Encounter Details Date Type Department Care Team (Late st Contact Info) Description 07/13/2025 Abstract [facility] Pulmonology 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
--- OUTSIDE RECORDS SUMMARY | 2025-07-14 03:20 | XMS_ITS | Clinical Summary ---
Author Organization [facility] 8 [facility] Address [address] [place] [address] Care Team Providers Care Spinning Supervisor Name Role Phone Aristeo Khan MD Primary Care Provider Ravi Queen MD Unavailable [phone] Allergies Active Allergy Reactions Criticality Noted Date [...] a day as needed for anxiety Active naloxone (NARCAN) 4 mg/actuation spray,non-aeroso lIndications:John g term (current) use of opiate analgesic Administer 1 spray into affected nostril(s) as needed for opioid reversal 1 each 5 Active hydrOXYzine (ATARAX) 25 mg tablet Take 1 tablet (25 mg total) by mouth daily as needed for anxiety 5 Active HYDROcodone-acet aminophen (NORCO) 5-325 mg [...] 06/28/2022 Insomnia secondary to chronic pain 06/28/2022 long-term (current) use of opiate analgesic 06/14 Resolved Problems Problem Noted Date Diagnosed Date Resolved Date Chronic pain of right knee 06/28/2022 0 11/13/2023 Encounters Date Type Department Care Team Description 05/20/2025 6:44 AM CDT - 05/20/2025 11:59 PM CDT Hospital Encounter [facility] [address] [place] [address] [address] [place] [address] Natalia Georges NP long-term (current) use of opiate analgesic (Primary Dx); Primary osteoarthritis of right knee; Chronic pain syndrome Discharge Disposition: Discharge to home or self care from Last 3 Months Medical History Medical History Date Comments Emphysema of lung Knee pain, right Glaucoma Low back pain [...] points, staff should administer the PHQ-9) 0 05/20/2025 PHQ-9 Answer Date Recorded PHQ-9 Total Score 0 05/20/2025 Sex and Gender Information Value Date Recorded Sex Assigned at Not on file Legal Sex Male 8:01 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 Gender Identity Not on file Sexual Orientation Not on file Obstetrics History Last Filed Vital Signs Vital Sign Reading Time Taken Comments Blood Pressure 134/78 05/20/2025 7:18 AM CDT Pulse 95 05/20/2025 7:18 AM CDT Temperature 36.9 C (98.5 F) 04/02/2024 12:40 PM CDT Respiratory Rate 18 05/20/2025 7:18 AM CDT Oxygen Saturation 96% 05/20/2025 7:1 8 AM CDT RA, ON 3-4L WITH ACTIVITY Inhaled Oxygen Concentration - - Weight 111.1 kg (245 lb) 04/24/2019 10: 20 AM CDT Height 172.7 cm (5' 8) 04/24/2019 10:2 0 AM CDT Body Mass Index 37.25 04/24/2019 10:20 AM CDT Plan of Treatment Health Maintenance Due Date Last Done Comments Colon Cancer Screening-Colonoscopy 1960 Hepatitis C Screening 1960 Hepatitis B Screening 01/22/1978 Zoster Vaccine (1 of 2) 01/22/2010 Pneumococcal vaccine 65+ (2 of 2 - PCV) 05/08/2018 05/08/2017 Fall Risk Assessment 05/23/2024 05/23/2023 Prostate Cancer Screening-PSA 09/27/2024 09/27/2022 Abdominal Aortic Aneurysm (A AA) Screen 01/22/2025 Well Visit 65+ 01/22/2025 Covid-19 Vaccine (4 - 2024-2 6 season) 2025 01/18/2022, 07/08/2021, 01/10/2021 Influenza Vaccine (#1) 2025 , 08/14/2020, 07/14/2019, Additional history exists Depression Screening 05/20/2026 05/20/2025, 05/20/2025, 03/02/2025, Additional history exists DTaP/Tdap/Td Vaccine (2 - Td or Tdap) 02/26/2033 02/26/2023 Goals Goal Patient Goal Type Associated Problems Recent Progress Patient-Stated? Author [facility] On track( 025 10:33 AM CDT) Esperanza Dobson, RN Note: Patient will establish a comfort-function goal and identify the pain level that will allow the patient to perform desired activities and achieve an acceptable quality of life. Procedures Procedure Name Priority Date/Time Associated Diagnosis Comments PSA SCREEN Routine 09/27/2022 10:21 AM BENCH REPAIR TECHNICIAN from Last 3 Months or Most Recently Relevant to Health Maintenance Results * PSA screen (09/27/2022 10:21 AM BENCH REPAIR TECHNICIAN) PSA-Total 0.70 <=5.40 ng/mL TALIB VILA [...] revised 22. Blood 09/27/2022 10:2 1 AM BENCH REPAIR TECHNICIAN 09/27/2022 10:44 AM BENCH REPAIR TECHNICIAN Aristeo Khan MD LAB BLOOD ORDERABLES Final Result Performing Organization Address City/State/ZIP Co fl Phone Number [facility] [address] [facility] Department [place] [address] from Last 3 Months or Most Recently Relevant to Health Maintenance Insurance MEDICARE [facility] MEDICARE [facility]PA [facility] MEDICARE ADVANTAGE IDPA [facility] MEDICARE ADVANTAGE Care Teams Spinning Supervisor Relationship Specialty Start Date End Date Aristeo Khan MD [address] [place] [address] PCP - General 06/28/22 Ravi Queen MD [address] [place] [address] [address] [place] [id number] Anesthesiologist Pain Management 09/05/22
--- OUTSIDE RECORDS SUMMARY | 2025-07-14 03:20 | XMS_ITS | Clinical Summary ---
Author Organization [facility] Address [address] [place] [address] Phone Care Team Providers Care Preventive Maintenance Coordinator Name Role Phone Bentley Kyle MD Primary Care Provider [phone] Allergies Active Allergy Reactions Criticality Noted Date [...] Encounters Date Type Department Care Team Description 07/13/2025 Abstract [facility] Pulmonology [address] [place] [address] PaulineNolbertoen 06/29/2025 External Device Data STL ABSTRACTION Provider, Abstract 06/29/2025 External Device Data STL ABSTRACTION Provider, Abstract 05/31/2025 1:00 PM CDT Office Visit [facility] Pulmonology [address] [place] [address] Carson Pineda MD Chronic respiratory failure with hypoxia and hypercapnia (CMS/HCC) (Primary Dx); Stage 3 severe COPD by GOLD classification (CMS/HCC); Centrilobular emphysema (CMS/HCC); Personal history of tobacco use; History of cocaine use 04/28/2025 External Device Data STL ABSTRACTION Provider, Abstract 04/28/2025 External Device Data STL ABSTRACTION Provider, Abstract 04/27/2025 External Device Data STL ABSTRACTION Provider, Abstract 04/22/2025 Telephone [facility] [address] [place] [address] Carson Pineda MD Results from Last 3 Months Immunizations Immunization Administration Dates Next Due (Lender Sentinel)(12 YR UP) COVID-19 VACCINE - EMERGENCY USE AUTHORIZATION, MRNA, [id number]) 30 MCG/0.3 ML IM SUSP 01/10/2021 Influenza Seasonal Unspecified Formulation IM Social History Tobacco Use Types Packs/Day Years Used Date Smoking Tobacco: Never Smokeless Tobacco: Never Sex and Gender Information Value Date Recorded Sex Assigned at Not on file Legal 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 Gender Identity Not on file Sexual Orientation Not on file Last Filed Vital Signs Vital Sign Reading Time Taken Comments Blood Pressure 138/90 05/31/2025 12:56 PM CDT Pulse 104 05/31/2025 12:56 PM CDT Temperature 37.2 C (98.9 F) 04/20/2021 11:16 AM CDT Respiratory Rate 18 04/20/2021 3:29 PM CDT Oxygen Saturation 93% 05/31/2025 12:56 PM CDT 3L Inhaled Oxygen Concentration - - Weight 116.1 kg (256 lb) 11/21/2021 1:06 PM 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 Height 175.3 cm (5' 9) 05/31/2025 12:56 PM CDT Body Mass Index 37.8 11/21/2021 1:06 PM 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 Plan of Treatment Health Maintenance Due Date Last Done Comments COLORECTAL SCREENING 01/22/2005 Colorectal Cancer Screening 01/22/2005 FIT-DNA Q 3 years 01/22/2005 FIT/FOBT Q 1 year 01/22/2005 Flex Sig/CT Colonography Q 5 years 01/22/2005 ZOSTER VACCINE (1 of 2) 01/22/2010 PNEUMOCOCCAL VACCINE 50+ YEA RS (2 of 2 - PCV) 05/08/2018 05/08/2017 RSV VACCINE (60+ or ) (1 - Risk 60-74 years 1-dose series) 2020 Medicare Advantage ([place]) Preventative Visit/Annual Wellness Visit 10/14/2024 INFLUENZA VACCINE (#1) 2025 , 07/14/2019, 08/29/2018, Additional history exists COVID-19 Vaccine (2 - 2024-2 6 season) 2025 01/10/2021 DTAP/TDAP/TD VACCINES (2 - T d or Tdap) 02/26/2033 02/26/2023 Insurance MEDICAID [place] Advance Directives For more information, please contact: [phone] * Full Code (Latest Code Status on File) Date Activated Date Inactivated Comments 04/18/2021 12:14 PM 04/20/2021 6:57 PM Care Teams Preventive Maintenance Coordinator Relationship Specialty Start Date End Date Bentley Kyle MD [address] [place] [phone] PCP - General Internal Medicine 04/18/21
--- OUTSIDE RECORDS SUMMARY | 2025-07-14 03:20 | XMS_ITS | Clinical Summary ---
Author Organization [facility] Address [address] [place] [address] Phone Care Team Providers Care Wind Projects Supervisor Name Role Phone Bentley Kyle MD Primary Care Provider [phone] Medications PAIN & FEVER EXTRA STRENGTH 500 [...] Virus (HCV) Screening 1960 TdaP Immunization 1960 Cologuard 01/22/2005 Colonoscopy 01/22/2005 Colorectal Cancer Screening 01/22/2005 Immunochemical Fecal Occult Blood 01/22/2005 Pneumococcal Immunization (5 0+ years) (1 of 1 - PCV) 01/22/2010 Zoster Immunization (1 of 2) 01/22/2010 Influenza Immunization (#1) 2025 SARS-COV-2 Immunization (2 - 2024- season) 2025 07/08/2021 Respiratory Syncytial Virus (RSV) Immunization (Adult) (1 - 1-dose 75+ series) 01/22/2035 Hepatitis B Immunization Aged Out No longer eligible based on patient's age to complete this topic Human Papillomavirus (HPV) Immunization Aged Out No longer eligible b ased on patient's age to complete this topic Meningococcal Immunization (ACWY) Aged Out No longer eligible based on patient's age to complete this topic Rotavirus Immunization Aged Out No lo nger eligible based on patient's age to complete this topic Insurance MEDICAID [place] MEDICARE Care Teams Wind Projects Supervisor Relationship Specialty Start Date End Date Bentley Kyle MD [address] [place] [address] PCP - General Internal Medicine 02/01/21
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
[2025-07-14 06:55] VITALS: BP 135/93; PULSE 110; RESP 24; TEMP 36.8; O2SAT 96; BMI 31.6
[2025-07-14] MEDS: LACTATED RINGERS 1,000 ML 150 ML IV CONT (07:00)
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
--- NOTE | 2025-07-14 07:55 | WPDHPUPDATE1 ---
History and Physical Update Update Date/Time: 07/14/25 07:55 History and Physical has been reviewed, including an updated exam of the patient. There are NO changes in the patient's condition. Risks, benefits, and alternatives have been discussed and questions answered. Patient agrees to proceed with procedure.
--- NOTE | 2025-07-14 08:05 | S_PTH ---
PATIENT: Bentley Mesa LOC: [facility] Moreira#:[id number] AGE/SX: 65/M ROOM: RE07/14/[address]: Pernell Martinez MD : 1960 BED: DIS: 07/14/2025 SPEC #: [id number] RECD: 07/14/25 09:36 STATUS: ANIA REGiselle #: [id number] МАРИЯ: 07/14/25 08:[address]: Pernell Martinez DEPT: [facility] Surgical RECD BY: Funmi Yusuf ENTERED: 07/14/25 09:36 SP TYPE: Surgical OTHR DR: Kiki Nolasco, NETEZZA DEVELOPER Tissues: A - Gastric Biopsy B - Esophageal Biopsy Procedures: Hematoxylin and Eosin Stain Gross and Microscopic Level 4
[2025-07-14 08:11] VITALS: BP 124/90; PULSE 104; RESP 30; O2SAT 100
[2025-07-14 08:21] VITALS: BP 135/98; PULSE 109; RESP 26; O2SAT 100
[2025-07-14 08:31] VITALS: BP 137/94; PULSE 100; RESP 17; O2SAT 99
== END 2025-07-14 08:46 | disposition home or self-care (01) ==
PROVIDERS: PCP Nurse Practitioner Family; Referring Provider Internal Medicine Gastroenterology; Visit Provider Internal Medicine Gastroenterology
PROC: 0DJ08ZZ Inspection of Upper Intestinal Tract, Via Natural or Artificial Opening Endoscopic (ICD-10-PCS; CPT 43239; principal; 2025-07-14 08:00)
DX: K21.00 Gastro-esophageal reflux disease with esophagitis, without bleeding (principal); K44.9 Diaphragmatic hernia without obstruction or gangrene; E55.9 Vitamin D deficiency, unspecified; N40.0 Benign prostatic hyperplasia without lower urinary tract symptoms; J96.11 Chronic respiratory failure with hypoxia; J43.9 Emphysema, unspecified; E66.9 Obesity, unspecified; Z68.31 Body mass index [BMI] 31.0-31.9, adult; Z79.82 Long term (current) use of aspirin; Z79.51 Long term (current) use of inhaled steroids; Z79.52 Long term (current) use of systemic steroids; Z99.81 Dependence on supplemental oxygen; Z98.890 Other specified postprocedural states; Z87.891 Personal history of nicotine dependence; Z86.711 Personal history of pulmonary embolism; Z86.718 Personal history of other venous thrombosis and embolism; Z80.1 Family history of malignant neoplasm of trachea, bronchus and lung; Z82.49 Family history of ischemic heart disease and other diseases of the circulatory system
CPT/HCPCS: 43239; 88305; J2003; J2704; J7120

== ENCOUNTER 2025-07-27 09:30 | Outpatient (RCR) | payer MEDICARE, MEDICAID, SELFPAY | END 2025-07-27 23:59 | disposition home or self-care (01) | LOC: ANHCPREHAB 09:30 | PROVIDERS: PCP Nurse Practitioner Family; Visit Provider Nurse Practitioner Family | DX: J44.9 Chronic obstructive pulmonary disease, unspecified (principal) | CPT/HCPCS: 94625 ==

== ENCOUNTER 2025-09-07 10:35 | Outpatient (CLI) | payer MEDICARE, MEDICAID, SELFPAY ==
--- NOTE | ~2025-09-07 | XR_ITS ---
EXAMINATION: XR shoulder LT min 2V, 09/07/2025 11:[address] JUDGE HISTORY: Low back pain, unspecified COMPARISON: No comparisons available. Findings: No acute fracture or malalignment. No significant degenerative changes. Soft tissues unremarkable. Impression: No acute fracture or malalignment. Reviewed, dictated and finalized at location P. CIPAL [address] JUDGE Impression: No acute fracture or malalignment.
--- NOTE | ~2025-09-07 | XR_ITS ---
XR lumbar spine 2-3V Indication: Low back pain, unspecified Comparison: None Findings: Minimal grade 1 anterolisthesis of L4 on L5, no fracture is identified Moderate loss of disc height at L5-S1. Soft tissues unremarkable Impression: No acute abnormality. Reviewed, dictated and finalized at location P. UCHER Impression: No acute abnormality.
== END 2025-09-07 10:36 | disposition home or self-care (01) ==
LOC: MICIMG 10:37
PROVIDERS: PCP Nurse Practitioner Family; Visit Provider Nurse Practitioner Family
DX: M54.50 Low back pain, unspecified (principal); M25.512 Pain in left shoulder
CPT/HCPCS: 72100; 73030

== ENCOUNTER 2025-09-28 09:30 | Outpatient (RCR) | payer MEDICARE, MEDICAID, SELFPAY | END 2025-09-28 10:31 | disposition home or self-care (01) | LOC: ANHCPREHAB 09:30 | PROVIDERS: PCP Nurse Practitioner Family; Visit Provider Nurse Practitioner Family | DX: J44.9 Chronic obstructive pulmonary disease, unspecified (principal) | CPT/HCPCS: 94625 ==